=== PATIENT | male | born 1955 | race Caucasian/White ===

== ENCOUNTER 2016-02-21 09:30 | Inpatient (IN) | payer OTHER ==
[~2016-02-21] VITALS: Ht 182.9 cm; Wt 86.3 kg
[~2016-02-21 09:30] MED LIST: ESCI10TA17 PO; FRS/40 PO; HYDR4TAB78 PO; INSDGI SC; LACT10SO17 PO; LEVE500T26 PO; NVLGI7030 SC; PREG75CA PO; TRIA0.1C20 TOP
[2016-02-21] MEDS ORDERED: PROMETHAZINE HCL INJ 12.5 MG in SODIUM CHLORIDE 0.9% 50ML 50 ML IV STA (10:08)
[2016-02-21] MEDS ORDERED: SODIUM CHLORIDE 0.9% 1000ML 500 ML IV STA (10:08)
[2016-02-21] MEDS ORDERED: SODIUM CHLORIDE 0.9% 1000ML 1,000 ML IV STA (10:08)
[2016-02-21] MEDS ORDERED: HYDROmorphone INJ 2 MG/ML SYR/VIAL IV PRN (10:15)
[2016-02-21] MEDS ORDERED: HYDROmorphone INJ 1 MG/ML SYR ONE ×2 (10:20→14:40)
[2016-02-21 10:36] LABS: MEAN CORPUSCULAR HGB CONC 32.8 g/dl (32-36)
[2016-02-21 10:44] LABS: MEAN CELL VOLUME 69.1 fL (80-100); MEAN CORPUSCULAR HEMOGLOBIN 22.7 pg (25-34); RED BLOOD COUNT 4.63 M/uL (4.7-6.1); WHITE BLOOD COUNT 6.92 K/uL (4.8-10.8)
[2016-02-21 10:45] LABS: PLATELET COUNT 63 K/uL (130-400)
[2016-02-21 10:55] LABS: BUN/CREATININE RATIO 11.5 (10-20); CALCIUM 8.8 mg/dl (8.5-10.1); CREATININE 1.3 mg/dl (0.60-1.40); POTASSIUM 3.9 mmol/L (3.5-5.1)
[2016-02-21 10:58] LABS: ALB/GLOB RATIO 0.8 (0.9-2)
--- NOTE | 2016-02-21 11:01 | DIAGNOSTIC IMAGING REPORT ---
CT SCAN OF THE ABDOMEN AND PELVIS WITHOUT IV CONTRAST CLINICAL HISTORY: Generalized abdominal pain. COMPARISON STUDY: Abdominal CT dated 12/10/2015. TECHNIQUE: CT scan of the abdomen and pelvis is performed from the lung bases to the proximal femora. Images are reviewed in the axial, sagittal, and coronal planes. IV contrast was not administered for this examination as per the referring clinician. Note that the examination was performed in significantly suboptimal fashion without oral and IV contrast. Automated dose control exposure was utilized. CT DOSE: 850.59 mGycm FINDINGS: Lung bases: The heart is top normal in size and without pericardial effusion. There is diminished attenuation of the cardiac blood pool as compared to the myocardium suggesting anemia. Emphysematous change is suspected at the lung bases. Foci of linear scarring versus atelectasis are present in the lower lobes. No airspace consolidation or pleural effusion is identified. Gynecomastia is noted. There is a moderate hiatal hernia. Paraesophageal varices are identified. Liver: The unenhanced liver is cirrhotic in morphology, atrophic, and markedly heterogeneous in attenuation. There is nodularity of the surface contour, with hypertrophy of the left lobe and widening of the fissures. There is no intrahepatic biliary ductal dilatation. There is recanalization of the periumbilical vein, as well as upper abdominal collaterals. There are perigastric varices identified. Gallbladder: There are numerous calcified gallstones. Mild gallbladder wall thickening is unchanged and likely related to cirrhosis and ascites. Spleen: The spleen is markedly enlarged and slightly heterogeneous, measuring 18.2 cm in length. Pancreas: The unenhanced pancreas is markedly atrophic and grossly unremarkable. Adrenal glands: Unremarkable. Kidneys: The unenhanced kidneys are atrophic and without hydronephrosis. There are no renal calculi identified. There is no evidence of contour deforming renal mass lesion. Abdominal vasculature: The abdominal aorta is normal in course and caliber noting mild to moderate atherosclerotic calcification. An infrarenal IVC filter is in place. Bowel: The small bowel and colon are normal in course and caliber. There is moderate colonic fecal retention. The appendix is well-visualized and normal. Peritoneum: There is a moderate to large volume of abdominopelvic ascites. No intraperitoneal free air is seen. There is an ascitic fluid containing umbilical hernia. Lymphadenopathy: None. Pelvic viscera: The bladder, prostate, and seminal vesicles are grossly normal as visualized. Skeletal structures: The skeletal structures are osteopenic. Mild lumbosacral spondylosis is observed. There are postoperative changes from L4 to S1 spinal fusion. There are bilateral pars defects at L5 with minimal anterolisthesis at L5-S1. A mild superior endplate compression deformity is noted in L1. No lytic or blastic lesions are seen. A bone graft donor site is noted in the left ilium. IMPRESSION: 1. Significantly suboptimal examination without oral and IV contrast. 2. There are no acute infectious or inflammatory findings in the abdomen or pelvis. 3. Cirrhotic liver morphology with evidence of portal hypertension including splenomegaly, a moderate to large volume of abdominopelvic ascites, esophageal varices, recanalization of the periumbilical vein, and upper abdominal collaterals/varices. 4. Cholelithiasis. 5. Hiatal hernia. 6. Suspect emphysema. 7. Additional findings as above. Electronically signed by: Leonardo De La Fuente M.D. 02/21/2016 10:59 AM Dictated Date/Time: 02/21/2016 10:51 AM
--- NOTE | 2016-02-21 11:03 | DIAGNOSTIC IMAGING REPORT ---
CHEST ONE VIEW PORTABLE CLINICAL HISTORY: Abdominal pain. COMPARISON STUDY: Chest radiograph December 17, 2015. FINDINGS: An anterior cervical spine fusion is incidentally noted. Lung volumes are diminished. There is no pneumothorax or pleural effusion. Linear left basilar opacity is suggestive of atelectasis. Lower mediastinal widening is due to varices, as shown on prior imaging studies. IMPRESSION: 1. No acute findings. 2. Diminished lung volumes with subsegmental left lower lung atelectasis. Electronically signed by: Luisito Obregon M.D. 02/21/2016 11:01 AM Dictated Date/Time: 02/21/2016 10:59 AM
[2016-02-21 11:05] LABS: BASO % 0.6 %; BASO ABS # 0.04 K/uL (0-0.2); COMPLETE YES; EOS % 3.8 %; HYPOCHROMIA PRESENT; IG% 0.1 %; LYMPH % 11.1 %; LYMPH ABS # 0.77 K/uL (1.2-3.4); MICROCYTOSIS PRESENT; MONO % 12.4 %
[2016-02-21 12:38] LABS: URINE APPEARANCE CLEAR (CLEAR); URINE BILIRUBIN NEG (NEG); URINE COLOR DK YELLOW; URINE NITRITE NEG (NEG); URINE SPECIFIC GRAVITY 1.023 (1.000-1.030); UROBILINOGEN NEG (NEG); ZZUR CULT IF INDIC CLEAN CATCH NO
[2016-02-21 12:43] LABS: MANUAL MICROSCOPIC REQUIRED? NO; REVIEW REQ? NO
--- NOTE | 2016-02-21 13:20 | EMERGENCY ROOM VISIT NOTE ---
History Report prepared by Alla: Emely Bauer Under the Supervision of: Dr. Leonardo Morales M.D. First contact with patient: 10:03 Chief Complaint: ABDOMINAL PAIN Nursing Triage Summary: pt was in same day surgery for paricentesis but c/o abd pain sent to er for eval abd cramping nausea, no emesis no diarrhea pt had fall at same day felt dizzy no injury History of Present Illness The patient is a 60 year old male who presents to the Emergency Room with complaints of intermittent cramping pains to his right abdomen since last evening. Currently, he is feeling nauseous and he rates his discomfort as a 7/10 , which was not relieved after taking Zofran PRN. Patient states that he has a history of chronic pains secondary to ascites, but he became concerned as he developed more severe cramping pains last evening, which he states felt similar to when he had bacterial peritonitis. The patient waited to come to the hospital until his appointment for paracentesis this morning, which he has about every two weeks, however, after walking into the building, his legs suddenly became weak, and he almost fell to the floor. Patient was able to catch himself before falling, however the x ray service engineer sent him to the ED for further evaluation secondary to these symptoms. The patient denies recent fevers, chills, chest pain, shortness of breath, or vomiting, and he states that he has been able to urinate and move his bowels normally without diarrhea or blood, no dark or tarry stools. He does note pain to a ventral hernia, which his x ray service engineer told him appeared to be new. He does have history of umbilical hernia, which he states is unchanged from baseline. Source of History: patient Onset: last evening Position: abdomen (right) Symptom Intensity: 7/10 Quality: cramping Timing: intermittent Associated Symptoms: + abdominal pain, + nausea, + weakness (legs), No SOB, No chest pain, No chills, No diarrhea, No fevers, No hematochezia, No melena, No urinary symptoms, No vomiting Review of Systems See HPI for pertinent positives & negatives. A total of 10 systems reviewed and were otherwise negative. 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 Surgical Problems: (1) H/O esophagogastroduodenoscopy (2) H/O knee surgery (3) S/P cervical spinal fusion (4) S/P IVC filter (5) S/P lumbar fusion (6) S/P T&A (status post tonsillectomy and adenoidectomy) Social History Problems: (1) long-term resident Family History Diabetes mellitus FH: cancer FH: heart disease Hypertension Kidney disease Social History Smoking Status: Never Smoker Alcohol Use: none Drug Use: none Marital Status: Housing Status: lives alone Occupation Status: disabled Current/Historical Medications Scheduled Escitalopram (Lexapro), 10 MG PO DAILY Furosemide (Lasix), 40 MG PO BID Insulin Glargine (Lantus), 28 UNITS SC HS Lactulose (Chronulac), 30 ML PO TID Levetiracetam (Keppra), 500 MG PO AMHS Levothyroxine Sodium (Synthroid), 75 MCG PO DAILY Magnesium Oxide (Mag-Ox), 400 MG PO BID Pantoprazole (Protonix), 40 MG PO BID Pregabalin (Lyrica), 75 MG PO TID Propranolol (Inderal), 10 MG PO BID Pyridoxine Hcl (Vitamin B-6), 25 MG PO HS Rifaximin (Xifaxan), 550 MG PO AMHS Spironolactone (Aldactone), 1 TAB PO DAILY Triamcinolone Acet 0.1% (Aristocort 0.1%), 1 APPLN TOP BID Scheduled PRN Hydromorphone Hcl (Dilaudid), 1 TAB PO BID PRN for Pain Ondasetron Odt (Zofran Odt), 4 MG SL Q6H PRN for Nausea or Vomiting Miscellaneous Medications Insulin Aspart 70/30 (Novolog Mix 70/30), 0 SC Allergies Coded Allergies: NSAIDs (Verified Allergy, Severe, DUE TO LIVER DISEAS, 02/21/16) Penicillins (Verified Allergy, Severe, JOINT SWELLING AND FEVER, 02/21/16) Levofloxacin (Verified Allergy, Mild, RASH, 02/21/16) pt developed erythema at site of IV injection with itching Vancomycin (Verified Allergy, Mild, HIVES, 02/21/16) HIVES Tramadol (Verified Allergy, Unknown, NOT TO TAKE WITH KEPPRA DUE TO SEIZURE RISK, 02/21/16) Physical Exam Vital Signs Date Time Temp Pulse Resp B/P Pulse Ox O2 Delivery O2 Flow Rate FiO2 02/21/16 16:45 78 16 125/68 95 Room Air 02/21/16 14:38 69 114/71 100 02/21/16 11:17 71 115/75 98 02/21/16 09:50 73 02/21/16 09:34 36.9 89 20 120/73 98 Room Air Physical Exam GENERAL: Patient is in no acute distress. HEENT: No acute trauma, normocephalic atraumatic, mucous membranes moist, no nasal congestion, no scleral icterus. NECK: No stridor, no adenopathy, no meningismus, trachea is midline. LUNGS: Clear to auscultation bilaterally, no wheeze, no rhonchi, breath sounds equal. HEART: 2/6 systolic murmur with a regular rate and rhythm. ABDOMEN: Distension with a ventral and umbilical hernia noted. These are both reducible. Bowel sounds are hyperactive. Abdomen is soft without peritonitis. No focal tenderness on exam. EXTREMITIES: No cyanosis or edema, full range of motion of all the joints without pain or difficulty, no signs for acute trauma. NEUROLOGIC: Oriented x 3, no acute motor or sensory deficits, no focal weakness. SKIN: No rash, mild jaundice, no diaphoresis. Medical Decision & Procedures ER Provider Diagnostic Interpretation: X-ray results as stated below per interpretation by me and the radiologist: CT results as stated below per my review and radiologist interpretation: CHEST ONE VIEW PORTABLE CLINICAL HISTORY: Abdominal pain. COMPARISON STUDY: Chest radiograph December 17, 2015. FINDINGS: An anterior cervical spine fusion is incidentally noted. Lung volumes are diminished. There is no pneumothorax or pleural effusion. Linear left basilar opacity is suggestive of atelectasis. Lower mediastinal widening is due to varices, as shown on prior imaging studies. IMPRESSION: 1. No acute findings. 2. Diminished lung volumes with subsegmental left lower lung atelectasis. Electronically signed by: Luisito Obregon M.D. 02/21/2016 11:01 AM Dictated Date/Time: 02/21/2016 10:[address] SCAN OF THE ABDOMEN AND PELVIS WITHOUT IV CONTRAST CLINICAL HISTORY: Generalized abdominal pain. COMPARISON STUDY: Abdominal CT dated 12/10/2015. TECHNIQUE: CT scan of the abdomen and pelvis is performed from the lung bases to the proximal femora. Images are reviewed in the axial, sagittal, and coronal planes. IV contrast was not administered for this examination as per the referring clinician. Note that the examination was performed in significantly suboptimal fashion without oral and IV contrast. Automated dose control exposure was utilized. CT DOSE: 850.59 mGycm FINDINGS: Lung bases: The heart is top normal in size and without pericardial effusion. There is diminished attenuation of the cardiac blood pool as compared to the myocardium suggesting anemia. Emphysematous change is suspected at the lung bases. Foci of linear scarring versus atelectasis are present in the lower lobes. No airspace consolidation or pleural effusion is identified. Gynecomastia is noted. There is a moderate hiatal hernia. Paraesophageal varices are identified. Liver: The unenhanced liver is cirrhotic in morphology, atrophic, and markedly heterogeneous in attenuation. There is nodularity of the surface contour, with hypertrophy of the left lobe and widening of the fissures. There is no intrahepatic biliary ductal dilatation. There is recanalization of the periumbilical vein, as well as upper abdominal collaterals. There are perigastric varices identified. Gallbladder: There are numerous calcified gallstones. Mild gallbladder wall thickening is unchanged and likely related to cirrhosis and ascites. Spleen: The spleen is markedly enlarged and slightly heterogeneous, measuring 18.2 cm in length. Pancreas: The unenhanced pancreas is markedly atrophic and grossly unremarkable. Adrenal glands: Unremarkable. Kidneys: The unenhanced kidneys are atrophic and without hydronephrosis. There are no renal calculi identified. There is no evidence of contour deforming renal mass lesion. Abdominal vasculature: The abdominal aorta is normal in course and caliber noting mild to moderate atherosclerotic calcification. An infrarenal IVC filter is in place. Bowel: The small bowel and colon are normal in course and caliber. There is moderate colonic fecal retention. The appendix is well-visualized and normal. Peritoneum: There is a moderate to large volume of abdominopelvic ascites. No intraperitoneal free air is seen. There is an ascitic fluid containing umbilical hernia. Lymphadenopathy: None. Pelvic viscera: The bladder, prostate, and seminal vesicles are grossly normal as visualized. Skeletal structures: The skeletal structures are osteopenic. Mild lumbosacral spondylosis is observed. There are postoperative changes from L4 to S1 spinal fusion. There are bilateral pars defects at L5 with minimal anterolisthesis at L5-S1. A mild superior endplate compression deformity is noted in L1. No lytic or blastic lesions are seen. A bone graft donor site is noted in the left ilium. IMPRESSION: 1. Significantly suboptimal examination without oral and IV contrast. 2. There are no acute infectious or inflammatory findings in the abdomen or pelvis. 3. Cirrhotic liver morphology with evidence of portal hypertension including splenomegaly, a moderate to large volume of abdominopelvic ascites, esophageal varices, recanalization of the periumbilical vein, and upper abdominal collaterals/varices. 4. Cholelithiasis. 5. Hiatal hernia. 6. Suspect emphysema. 7. Additional findings as above. Electronically signed by: Leonardo De La Fuente M.D. 02/21/2016 10:59 AM Dictated Date/Time: 02/21/2016 10:51 AM Laboratory Results Test 02/21/16 00:00 02/21/16 10:24 02/21/16 12:23 02/21/16 17:59 Peritoneal Fluid Color PALE YELLOW Peritoneal Fluid Appearance HAZY Peritoneal Fluid WBC 152 /uL (0-300) Peritoneal Fluid RBC < 3000 /uL Peritoneal Fld Mononuclear WBCs (%) 82.5 % Peritoneal Fld Polynuclear WBCs (%) 17.5 % Peritoneal Fluid Total Protein 1.4 g/dl Peritoneal Fluid Albumin 0.8 g/dl Total Bilirubin 2.0 mg/dl (0.2-1) Aspartate Amino Transf (AST/SGOT) 21 U/L (15-37) Alanine Aminotransferase (ALT/SGPT) 19 U/L (12-78) Alkaline Phosphatase 125 U/L (45-117) Total Protein 6.1 gm/dl (6.4-8.2) Albumin 2.8 gm/dl (3.4-5.0) Globulin 3.3 gm/dl (2.5-4.0) Albumin/Globulin Ratio 0.8 (0.9-2) Lipase 86 U/L (73-393) Urine Color DK YELLOW Urine Appearance CLEAR (CLEAR) Urine pH 6.0 (4.5-7.5) Urine Specific [place] 1.023 (1.000-1.030) Urine Protein NEG (NEG) Urine Glucose (UA) 3+ (NEG) Urine Ketones TRACE (NEG) Urine Occult Blood NEG (NEG) Urine Nitrite NEG (NEG) Urine Bilirubin NEG (NEG) Urine Urobilinogen NEG (NEG) Urine Leukocyte Esterase NEG (NEG) Lactic Acid Level 1.7 mmol/L (0.4-2.0) Laboratory results reviewed by me. Medications Administered Medications (Trade) Dose Ordered Sig/Ryan Route Start Time Stop Time Status Last Admin Dose Admin Sodium Chloride 500 ml @ 999 mls/hr Q31M STAT IV 02/21/16 10:08 02/21/16 10:38 DC 02/21/16 11:15 999 MLS/HR Sodium Chloride 1,000 ml @ 200 mls/hr Q5H STAT IV 02/21/16 10:08 02/21/16 15:07 DC 02/21/16 10:08 200 MLS/HR Promethazine HCl/ Sodium Chloride (Phenergan Inj/ Nss 50ml) 50.5 ml @ 204 mls/hr NOW STAT IV 02/21/16 10:08 02/21/16 10:22 DC 02/21/16 10:28 204 MLS/HR Hydromorphone HCl (Dilaudid Inj) 1 mg STK-MED ONCE .ROUTE 02/21/16 10:20 02/21/16 10:21 DC 02/21/16 10:23 1 MG Hydromorphone HCl 1 mg 1 mg STK-MED ONCE .ROUTE 02/21/16 14:40 02/21/16 14:41 DC 02/21/16 14:43 1 MG Aztreonam/Dextrose (Azactam IV/D5 100ml) 110 ml @ 100 mls/hr NOW STAT IV 02/21/16 17:40 02/21/16 18:45 DC 02/21/16 17:58 100 MLS/HR ECG Indication: weakness Rate (beats per minute): 85 Rhythm: sinus rhythm, other (Possible paced beat vs. artifact) Findings: no acute ischemic change, other (Non-specific T wave change. ) ED Course 1005: The patient was evaluated in room C3. A complete history and physical exam was performed. 1008: Promethazine HCl 12.5 mg/NSS 50.5 ml @ 204 mls/hr IV, NSS 1,000 ml @ 200 mls/hr IV and NSS 500 ml @ 999 mls/hr IV were ordered. 1015: Dilaudid 1 mg IV and Dilaudid 1 mg Route were ordered. 1111: Dr. Juan has evaluated the patient. He suggested admitting the patient to medicine secondary to concerns for bacterial peritonitis. The hospitalist will be contacted. 1130: I discussed the patient's case with Dr. Rodriguez, [facility] hospitalist. He stated that he would be in to evaluate the patient after all of the results of his radiology reports and lab tests had returned. 1745: I updated Dr. Rodriguez on the patient's status, and the results of his workup that have returned. He will be in to evaluate the patient. Medical Decision The patient is a 60 year old male who presents to the ED with complaints of intermittent cramping pains to his right abdomen since last evening. Differential diagnoses considered include spontaneous bacterial peritonitis, intestinal colic, bowel obstruction, hernia, diverticulitis, electrolyte imbalance, anemia, pneumonia, and UTI. There is no leukocytosis. The patient does have an anemia and a low platelet count, both of these are chronic. No significant electrolyte abnormality or kidney failure. Bilirubin is elevated consistent with his liver disease. There is no evidence for pancreatitis. Urinalysis does not show infection, dehydration and was suggested. Lactic acid level is elevated likely consistent with dehydration. Chest x-ray does not show pneumonia or free air. Abdominal and pelvis CT shows a lot of chronic findings, ascites was seen. No bowel obstruction or acute surgical pathology noted. The patient received IV saline, IV Phenergan and IV Dilaudid. He was given IV aztreonam as coverage for possible bacterial peritonitis. The patient did undergo a ultrasound-guided paracentesis. The fluid was sent for analysis, the culture results are pending. Given the concerns for spontaneous bacterial peritonitis, I did talk with case management and at length with the patient. I spoke with GI. Admission/ observation is warranted. The on-call hospitalist was consulted. Consults Time Called: 1111 Consulting Physician: Dr. Pritesh PARISH Returned Call: 1111 Dr. Juan has evaluated the patient. He has suggested admitting the patient due to concerns for bacterial peritonitis. The hospitalist will be contacted. Additional Consults: Time Called: 112, 1740 Consulted Physician: Dr. Rodriguez - [facility] Returned Call: 1130, 1745 Additional Comments: 1130: Discussed the patient's case. He stated that he will be in to evaluate the patient once all of the results of his lab tests and imaging have returned. 1744: I updated Dr. Rodriguez on the patient's stauts, and the results of his workup that have returned. He will be in to evaluate the patient. Impression Primary Impression: Right sided abdominal pain Additional Impression: Ascites Scribe Attestation The scribe's documentation has been prepared under my direction and personally reviewed by me in its entirety. I confirm that the note above accurately reflects all work, treatment, procedures, and medical decision making performed by me. Departure Information Dispostion Being Evaluated By Hospitalist Referrals Giulia Liu M.D. (PCP) Problem Qualifiers
--- NOTE | 2016-02-21 14:58 | DIAGNOSTIC IMAGING REPORT ---
DIAGNOSTIC PARACENTESIS UNDER ULTRASOUND GUIDANCE CLINICAL HISTORY: Cirrhosis and ascites. Abdominal pain. Clinical concern for bacterial peritonitis. COMPARISON STUDY: Abdominal CT dated 02/21/2016. PROCEDURE: The risks, benefits, and alternatives to the procedure were discussed with the patient who voiced understanding. Written informed consent was obtained. Following real-time ultrasound localization of a suitable pocket of fluid in the left lower quadrant, the abdomen was prepped and draped in the usual sterile fashion. The skin and soft tissues were anesthetized with 1% lidocaine. A 20-gauge needle was then inserted and approximately 120 cc of straw-colored ascitic fluid was removed by manual suction. The procedure was well tolerated and without immediate complication. The patient left the department in satisfactory condition. IMPRESSION: Successful ultrasound-guided diagnostic paracentesis with removal of approximately 120 cc of ascitic fluid which was sent for laboratory analysis. Electronically signed by: Leonardo De La Fuente M.D. 02/21/2016 2:56 PM Dictated Date/Time: 02/21/2016 2:51 PM
[2016-02-21 17:29] LABS: PERIT FL WBC 152 /uL (0-300); PERITONEAL FLUID RBC < 3000 /uL
[2016-02-21] MEDS ORDERED: AZTREONAM IV 2,000 MG in DEXTROSE 5% 100ML 100 ML IV STA (17:40)
--- NOTE | 2016-02-21 17:47 | Medical Consult ---
Consultation Date of Consultation: Feb 21, 2016. Attending Physician: Reason for Consultation: per request of ED Physician History of Present Illness 60 year old male who is very well known to our service has a known past medical history of Diabetes, End Stage Liver disease, Dyslipidemia, Portal Hypertension , History PE, S/P IVC filter placement, Anxiety/Depression presents to the ER with chief complaint of intermittent cramping pains to his right abdomen since last evening. Currently, he is feeling nauseous and he rates his discomfort as a 7/10 on a pain scale of 0-10, which was not relieved after taking Zofran PRN. Patient states that he has a history of chronic pains secondary to ascites and takes Dilaudid at home, but he became concerned as he developed more severe cramping pains last evening, which he states felt similar to when he had bacterial peritonitis. The patient waited to come to the hospital until his appointment for paracentesis this morning, which he has about every two weeks, however, after walking into the building, his legs suddenly became weak, and he almost fell to the floor. Patient was able to catch himself before falling, however the band top maker sent him to the ED for further evaluation secondary to these symptoms. The patient denies recent fevers, chills, chest pain, shortness of breath, or vomiting, and he states that he has been able to urinate and move his bowels normally without diarrhea or blood, no dark or tarry stools. He does note pain to a ventral hernia, which his band top maker told him appeared to be new. He does have history of umbilical hernia, which he states is unchanged from baseline. Past Medical/Surgical History Medical Problems: (1) Acute hyperglycemia Status: Acute (2) Ambulatory dysfunction Status: Acute (3) Ambulatory dysfunction Status: Acute (4) Anemia Status: Acute (5) Anemia Status: Acute (6) Anemia Status: Acute (7) Ascites Status: Acute (8) Ascites Status: Acute (9) Ascites Status: Acute (10) Ascites Status: Acute (11) Ascites Status: Acute (12) Chest pain Status: Acute (13) Chronic low back pain Status: Acute (14) Cirrhosis Status: Acute (15) Cirrhosis of liver Status: Acute (16) Contusion of left foot Status: Acute (17) Dyspnea Status: Acute (18) HHNC (hyperglycemic hyperosmolar nonketotic coma) Status: Acute (19) Hyperglycemia Status: Acute (20) Hypoglycemia Status: Acute (21) Hypoglycemia Status: Acute (22) Muscle weakness Status: Acute (23) Nausea, vomiting, and diarrhea Status: Acute (24) Right sided abdominal pain Status: Acute (25) Thrombocytopenia Status: Acute Family History Diabetes mellitus FH: cancer FH: heart disease Hypertension Kidney disease Social History Smoking Status: Never Smoker Drug Use: none Marital Status: Housing Status: lives alone Occupation Status: disabled Allergies Coded Allergies: NSAIDs (Verified Allergy, Severe, DUE TO LIVER DISEAS, 02/21/16) Penicillins (Verified Allergy, Severe, JOINT SWELLING AND FEVER, 02/21/16) Levofloxacin (Verified Allergy, Mild, RASH, 02/21/16) pt developed erythema at site of IV injection with itching Vancomycin (Verified Allergy, Mild, HIVES, 02/21/16) HIVES Tramadol (Verified Allergy, Unknown, NOT TO TAKE WITH KEPPRA DUE TO SEIZURE RISK, 02/21/16) Current Inpatient Medications Current Inpatient Medications Medications (Trade) Dose Ordered Sig/Ryan Route Start Time Stop Time Status Last Admin Dose Admin Hydromorphone HCl 1 mg 1 mg Q30M PRN IV 02/21/16 10:15 03/06/16 10:14 Aztreonam/Dextrose (Azactam IV/D5 100ml) 110 ml @ 100 mls/hr NOW STAT IV 02/21/16 17:40 02/21/16 18:45 Review of Systems See HPI for pertinent positives & negatives. A total of 10 systems reviewed and were otherwise negative. Physical Exam Date Time Temp Pulse Resp B/P Pulse Ox O2 Delivery O2 Flow Rate FiO2 02/21/16 16:45 78 16 125/68 95 Room Air 02/21/16 14:38 69 114/71 100 02/21/16 11:17 71 115/75 98 02/21/16 09:50 73 02/21/16 09:34 36.9 89 20 120/73 98 Room Air General Appearance: WD/WN, no apparent distress Head: normocephalic, atraumatic Eyes: normal inspection, PERRL, EOMI ENT: normal ENT inspection, hearing grossly normal, TMs normal, pharynx normal Neck: supple, no adenopathy, thyroid normal, no JVD, trachea midline Respiratory/Chest: chest non-tender, lungs clear, no respiratory distress, no accessory muscle use Cardiovascular: regular rate, rhythm, no edema, no gallop, normal peripheral pulses Abdomen/GI: normal bowel sounds, non tender, soft, + distended (Due to ascites) Extremities/Musculoskelatal: normal inspection, no calf tenderness, normal capillary refill Neurologic/Psych: normal mood/affect, normal reflexes, oriented x 3 Skin: normal color, warm/dry, no rash Lymphatic: no adenopathy Laboratory Results Last 24 Hours Test 02/21/16 00:00 02/21/16 10:24 02/21/16 12:23 02/21/16 17:41 Peritoneal Fluid Color PALE YELLOW Peritoneal Fluid Appearance HAZY Peritoneal Fluid WBC 152 /uL Peritoneal Fluid RBC < 3000 /uL Peritoneal Fld Mononuclear WBCs (%) 82.5 % Peritoneal Fld Polynuclear WBCs (%) 17.5 % Peritoneal Fluid Total Protein 1.4 g/dl Peritoneal Fluid Albumin 0.8 g/dl White Blood Count 6.92 K/uL Red Blood Count 4.63 M/uL Hemoglobin 10.5 g/dL Hematocrit 32.0 % Mean Corpuscular Volume 69.1 fL Mean Corpuscular Hemoglobin 22.7 pg Mean Corpuscular Hemoglobin Concent 32.8 g/dl Platelet Count 63 K/uL Neutrophils (%) (Auto) 72.0 % Lymphocytes (%) (Auto) 11.1 % Monocytes (%) (Auto) 12.4 % Eosinophils (%) (Auto) 3.8 % Basophils (%) (Auto) 0.6 % Neutrophils # (Auto) 4.98 K/uL Lymphocytes # (Auto) 0.77 K/uL Monocytes # (Auto) 0.86 K/uL Eosinophils # (Auto) 0.26 K/uL Basophils # (Auto) 0.04 K/uL RDW Standard Deviation 50.0 fL RDW Coefficient of Variation 19.9 % Immature Granulocyte % (Auto) 0.1 % Immature Granulocyte # (Auto) 0.01 K/uL Hypochromasia PRESENT Microcytosis PRESENT Sodium Level 135 mmol/L Potassium Level 3.9 mmol/L Chloride Level 97 mmol/L Carbon Dioxide Level 31 mmol/L Anion Gap 7.0 mmol/L Blood Urea Nitrogen 15 mg/dl Creatinine 1.30 mg/dl Est Creatinine Clear Calc Drug Dose 65.5 ml/min Estimated GFR () 68.3 Estimated GFR (Non- 58.9 BUN/Creatinine Ratio 11.5 Random Glucose 137 mg/dl Lactic Acid Level 2.9 mmol/L Calcium Level 8.8 mg/dl Total Bilirubin 2.0 mg/dl Aspartate Amino Transf (AST/SGOT) 21 U/L Alanine Aminotransferase (ALT/SGPT) 19 U/L Alkaline Phosphatase 125 U/L Total Protein 6.1 gm/dl Albumin 2.8 gm/dl Globulin 3.3 gm/dl Albumin/Globulin Ratio 0.8 Lipase 86 U/L Urine Color DK YELLOW Urine Appearance CLEAR Urine pH 6.0 Urine Specific [place] 1.023 Urine Protein NEG Urine Glucose (UA) 3+ Urine Ketones TRACE Urine Occult Blood NEG Urine Nitrite NEG Urine Bilirubin NEG Urine Urobilinogen NEG Urine Leukocyte Esterase NEG
--- NOTE | 2016-02-21 18:11 | History and Physical ---
History & Physical Date & Time of Service: Feb 21, 2016 at 18:10 Chief Complaint: Primary Care Physician: Giulia Liu M.D. History of Present Illness Source: patient, hospital records 60 year old male who is very well known to our service has a known past medical history of Diabetes, End Stage Liver disease, Dyslipidemia, Portal Hypertension , History PE, S/P IVC filter placement, Anxiety/Depression presents to the ER with chief complaint of intermittent cramping pains to his right abdomen since last evening. Currently, he is feeling nauseous and he rates his discomfort as a 7/10 on a pain scale of 0-10, which was not relieved after taking Zofran PRN. Patient states that he has a history of chronic pains secondary to ascites and takes Dilaudid at home, but he became concerned as he developed more severe cramping pains last evening, which he states felt similar to when he had bacterial peritonitis. The patient waited to come to the hospital until his appointment for paracentesis this morning, which he has about every two weeks, however, after walking into the building, his legs suddenly became weak, and he almost fell to the floor. Patient was able to catch himself before falling, however the health safety instructor sent him to the ED for further evaluation secondary to these symptoms. The patient denies recent fevers, chills, chest pain, shortness of breath, or vomiting, and he states that he has been able to urinate and move his bowels normally without diarrhea or blood, no dark or tarry stools. He does note pain to a ventral hernia, which his health safety instructor told him appeared to be new. He does have history of umbilical hernia, which he states is unchanged from baseline. 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 Surgical Problems: (1) H/O esophagogastroduodenoscopy Status: Chronic (2) H/O knee surgery Status: Chronic (3) S/P cervical spinal fusion Status: Resolved (4) S/P IVC filter Status: Chronic (5) S/P lumbar fusion Status: Resolved (6) S/P T&A (status post tonsillectomy and adenoidectomy) Status: Chronic Social History Problems: (1) shelter resident Status: Chronic Family History Diabetes mellitus FH: cancer FH: heart disease Hypertension Kidney disease Social History Smoking Status: Never Smoker Drug Use: none Marital Status: Housing status: lives alone Occupational Status: disabled Immunizations History of Influenza Vaccine: Yes Influenza Vaccine Date: Nov 26, 2012 History of Tetanus Vaccine?: Yes Tetanus Immunization Date: Oct 16, 2005 History of Pneumococcal: Yes Pneumococcal Date: Dec 27, 2010 History of Hepatitis B Vaccine: Yes Allergies Coded Allergies: NSAIDs (Verified Allergy, Severe, DUE TO LIVER DISEAS, 02/21/16) Penicillins (Verified Allergy, Severe, JOINT SWELLING AND FEVER, 02/21/16) Levofloxacin (Verified Allergy, Mild, RASH, 02/21/16) pt developed erythema at site of IV injection with itching Vancomycin (Verified Allergy, Mild, HIVES, 02/21/16) HIVES Tramadol (Verified Allergy, Unknown, NOT TO TAKE WITH KEPPRA DUE TO SEIZURE RISK, 02/21/16) Home Medications Scheduled Escitalopram (Lexapro), 10 MG PO DAILY Furosemide (Lasix), 40 MG PO BID Insulin Glargine (Lantus), 28 UNITS SC HS Lactulose (Chronulac), 30 ML PO TID Levetiracetam (Keppra), 500 MG PO AMHS Levothyroxine Sodium (Synthroid), 75 MCG PO DAILY Magnesium Oxide (Mag-Ox), 400 MG PO BID Pantoprazole (Protonix), 40 MG PO BID Pregabalin (Lyrica), 75 MG PO TID Propranolol (Inderal), 10 MG PO BID Pyridoxine Hcl (Vitamin B-6), 25 MG PO HS Rifaximin (Xifaxan), 550 MG PO AMHS Spironolactone (Aldactone), 1 TAB PO DAILY Triamcinolone Acet 0.1% (Aristocort 0.1%), 1 APPLN TOP BID Scheduled PRN Hydromorphone Hcl (Dilaudid), 1 TAB PO BID PRN for Pain Ondasetron Odt (Zofran Odt), 4 MG SL Q6H PRN for Nausea or Vomiting Miscellaneous Medications Insulin Aspart 70/30 (Novolog Mix 70/30), 0 SC Review of Systems See HPI for pertinent positives & negatives. A total of 10 systems reviewed and were otherwise negative. Physical Exam Vital Signs General Appearance: WD/WN, no apparent distress Head: normocephalic, atraumatic Eyes: normal inspection, PERRL, EOMI ENT: normal ENT inspection, hearing grossly normal, TMs normal, pharynx normal Neck: supple, no adenopathy, thyroid normal, no JVD, trachea midline Respiratory/Chest: chest non-tender, lungs clear, no respiratory distress, no accessory muscle use Cardiovascular: regular rate, rhythm, no edema, no gallop, normal peripheral pulses Abdomen/GI: normal bowel sounds, Pain on deep palpation, soft, + distended ( Due to ascites) Extremities/Musculoskelatal: normal inspection, no calf tenderness, normal capillary refill Neurologic/Psych: normal mood/affect, normal reflexes, oriented x 3 Skin: normal color, warm/dry, no rash Lymphatic: no adenopathy Date Time Temp Pulse Resp B/P Pulse Ox O2 Delivery O2 Flow Rate FiO2 02/21/16 16:45 78 16 125/68 95 Room Air 02/21/16 14:38 69 114/71 100 02/21/16 11:17 71 115/75 98 02/21/16 09:50 73 02/21/16 09:34 36.9 89 20 120/73 98 Room Air Diagnostics Laboratory Results Results Past 24 Hours Test 02/21/16 00:00 02/21/16 10:24 02/21/16 12:23 02/21/16 17:59 Range/Units Peritoneal Fluid Color PALE YELLOW Peritoneal Fluid Appearance HAZY Peritoneal Fluid WBC 152 0-300 /uL Peritoneal Fluid RBC < 3000 /uL Peritoneal Fld Mononuclear WBCs (%) 82.5 % Peritoneal Fld Polynuclear WBCs (%) 17.5 % Peritoneal Fluid Total Protein 1.4 g/dl Peritoneal Fluid Albumin 0.8 g/dl White Blood Count 6.92 4.8-10.8 K/uL Red Blood Count 4.63 4.7-6.1 M/uL Hemoglobin 10.5 14.0-18.0 g/dL Hematocrit 32.0 42-52 % Mean Corpuscular Volume 69.1 80-100 fL Mean Corpuscular Hemoglobin 22.7 25-34 pg Mean Corpuscular Hemoglobin Concent 32.8 32-36 g/dl Platelet Count 63 130-400 K/uL Neutrophils (%) (Auto) 72.0 % Lymphocytes (%) (Auto) 11.1 % Monocytes (%) (Auto) 12.4 % Eosinophils (%) (Auto) 3.8 % Basophils (%) (Auto) 0.6 % Neutrophils # (Auto) 4.98 1.4-6.5 K/uL Lymphocytes # (Auto) 0.77 1.2-3.4 K/uL Monocytes # (Auto) 0.86 0.11-0.59 K/uL Eosinophils # (Auto) 0.26 0-0.5 K/uL Basophils # (Auto) 0.04 0-0.2 K/uL RDW Standard Deviation 50.0 36.4-46.3 fL RDW Coefficient of Variation 19.9 11.5-14.5 % Immature Granulocyte % (Auto) 0.1 % Immature Granulocyte # (Auto) 0.01 0.00-0.02 K/uL Hypochromasia PRESENT Microcytosis PRESENT Sodium Level 135 136-145 mmol/L Potassium Level 3.9 3.5-5.1 mmol/L Chloride Level 97 98-107 mmol/L Carbon Dioxide Level 31 21-32 mmol/L Anion Gap 7.0 3-11 mmol/L Blood Urea Nitrogen 15 7-18 mg/dl Creatinine 1.30 0.60-1.40 mg/dl Est Creatinine Clear Calc Drug Dose 65.5 ml/min Estimated GFR () 68.3 Estimated GFR (Non- 58.9 BUN/Creatinine Ratio 11.5 10-20 Random Glucose 137 70-99 mg/dl Lactic Acid Level 2.9 0.4-2.0 mmol/L Calcium Level 8.8 8.5-10.1 mg/dl Total Bilirubin 2.0 0.2-1 mg/dl Aspartate Amino Transf (AST/SGOT) 21 15-37 U/L Alanine Aminotransferase (ALT/SGPT) 19 12-78 U/L Alkaline Phosphatase 125 45-117 U/L Total Protein 6.1 6.4-8.2 gm/dl Albumin 2.8 3.4-5.0 gm/dl Globulin 3.3 2.5-4.0 gm/dl Albumin/Globulin Ratio 0.8 0.9-2 Lipase 86 73-393 U/L Urine Color DK YELLOW Urine Appearance CLEAR CLEAR Urine pH 6.0 4.5-7.5 Urine Specific [place] 1.023 1.000-1.030 Urine Protein NEG NEG Urine Glucose (UA) 3+ NEG Urine Ketones TRACE NEG Urine Occult Blood NEG NEG Urine Nitrite NEG NEG Urine Bilirubin NEG NEG Urine Urobilinogen NEG NEG Urine Leukocyte Esterase NEG NEG Microbiology Results 02/21/16 Acid Fast Stain, Received Pending 02/21/16 Mycobacterial Culture, Received Pending 02/21/16 Gram Stain, Received Pending 02/21/16 Bacterial Culture, Received Pending Diagnostic Radiology CHEST ONE VIEW PORTABLE CLINICAL HISTORY: Abdominal pain. COMPARISON STUDY: Chest radiograph December 17, 2015. FINDINGS: An anterior cervical spine fusion is incidentally noted. Lung volumes are diminished. There is no pneumothorax or pleural effusion. Linear left basilar opacity is suggestive of atelectasis. Lower mediastinal widening is due to varices, as shown on prior imaging studies. IMPRESSION: 1. No acute findings. 2. Diminished lung volumes with subsegmental left lower lung atelectasis. CT SCAN OF THE ABDOMEN AND PELVIS WITHOUT IV CONTRAST CLINICAL HISTORY: Generalized abdominal pain. COMPARISON STUDY: Abdominal CT dated 12/10/2015. FINDINGS: Lung bases: The heart is top normal in size and without pericardial effusion. There is diminished attenuation of the cardiac blood pool as compared to the myocardium suggesting anemia. Emphysematous change is suspected at the lung bases. Foci of linear scarring versus atelectasis are present in the lower lobes. No airspace consolidation or pleural effusion is identified. Gynecomastia is noted. There is a moderate hiatal hernia. Paraesophageal varices are identified. Liver: The unenhanced liver is cirrhotic in morphology, atrophic, and markedly heterogeneous in attenuation. There is nodularity of the surface contour, with hypertrophy of the left lobe and widening of the fissures. There is no intrahepatic biliary ductal dilatation. There is recanalization of the periumbilical vein, as well as upper abdominal collaterals. There are perigastric varices identified. Gallbladder: There are numerous calcified gallstones. Mild gallbladder wall thickening is unchanged and likely related to cirrhosis and ascites. Spleen: The spleen is markedly enlarged and slightly heterogeneous, measuring 18.2 cm in length. Pancreas: The unenhanced pancreas is markedly atrophic and grossly unremarkable. Adrenal glands: Unremarkable. Kidneys: The unenhanced kidneys are atrophic and without hydronephrosis. There are no renal calculi identified. There is no evidence of contour deforming renal mass lesion. Abdominal vasculature: The abdominal aorta is normal in course and caliber noting mild to moderate atherosclerotic calcification. An infrarenal IVC filter is in place. Bowel: The small bowel and colon are normal in course and caliber. There is moderate colonic fecal retention. The appendix is well-visualized and normal. Peritoneum: There is a moderate to large volume of abdominopelvic ascites. No intraperitoneal free air is seen. There is an ascitic fluid containing umbilical hernia. Lymphadenopathy: None. Pelvic viscera: The bladder, prostate, and seminal vesicles are grossly normal as visualized. Skeletal structures: The skeletal structures are osteopenic. Mild lumbosacral spondylosis is observed. There are postoperative changes from L4 to S1 spinal fusion. There are bilateral pars defects at L5 with minimal anterolisthesis at L5-S1. A mild superior endplate compression deformity is noted in L1. No lytic or blastic lesions are seen. A bone graft donor site is noted in the left ilium. IMPRESSION: 1. Significantly suboptimal examination without oral and IV contrast. 2. There are no acute infectious or inflammatory findings in the abdomen or pelvis. 3. Cirrhotic liver morphology with evidence of portal hypertension including splenomegaly, a moderate to large volume of abdominopelvic ascites, esophageal varices, recanalization of the periumbilical vein, and upper abdominal collaterals/varices. 4. Cholelithiasis. 5. Hiatal hernia. 6. Suspect emphysema. 7. Additional findings as above. Impression Assessment and Plan Nausea/Vomiting with Abdominal Pain: Afebrile and Ascites fluid shoes no signs of SBP. Being admitted to Medical floor under Observation. -Monitor vitals -Needs to have Therapeutic paracentesis tomorrow Am -Will need Pre & post Albumin. -No antibiotics for now. History BETANCOURT: Recurrent ascites and needs frequent paracentesis. -Contique Lasix, Aldactone, Rifaximin & Lactulose. 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 Stable. History of Chronic Anemia: Stable.Due to above. History of Thrombocytopenia: Hold Insulin Aspart and Lantus until PO intake improves -ISS for now -Pharmacy consult for glycemic management. History of Seizure Disorder: Stable. Continue Keppra. History of PE: S/P IVC filter placement -Not a candidate for chronic anticoagulation Code Status: FULL CODE DVT Prophylaxis: SCDs. Disposition: Discharge after paracentesis tomorrow. Level of Care Med/Surg Resuscitation Status FULL RESUSCITATION VTE Prophylaxis Given or contraindicated: SCD's
[2016-02-21] MEDS ORDERED: ONDANSETRON INJ 2 MG/ML 2 ML VIAL IV PRN (18:30)
[2016-02-21] MEDS ORDERED: POLYETHYLENE (MIRALAX) 17 GM PACK PO PRN (18:30)
[2016-02-21] MEDS ORDERED: HYDROmorphone HCL 2 MG TAB PO PRN (18:30)
[2016-02-21] MEDS ORDERED: ALUMINUM/MAGNESIUM/SIMETH (MAALOX MAX) 30 ML UDC PO PRN (18:30)
[2016-02-21] MEDS ORDERED: DEXTROSE 50% 50 ML SYR IV PRN (18:45)
[2016-02-21] MEDS ORDERED: GLUCOSE 10 TABS/TUBE PO PRN (18:45)
[2016-02-21] MEDS ORDERED: GLUCOSE 40% GEL 15 GM TUBE PO PRN (18:45)
[2016-02-21] MEDS ORDERED: GLUCAGON FOR INJ 1 MG VIAL SQ PRN (18:45)
[2016-02-21] MEDS ORDERED: PHARMACY GLYCEMIC MGMT CONSULT PRN (18:55)
[2016-02-21] MEDS ORDERED: HYDROmorphone HCL 2 MG TAB ONE (19:24)
[2016-02-21] MEDS: HYDROmorphone HCL 2 MG TAB PO PRN (19:27)
[2016-02-21] MEDS: TRIAMCINOLONE ACET 0.1% CR 15 GM TUBE EXT SCH (20:00)
[2016-02-21] MEDS: PREGABALIN 75 MG CAP PO SCH (20:00)
[2016-02-21] MEDS ORDERED: IV FLUIDS COMPLETED PRN (20:45)
[2016-02-21] MEDS: INSULIN ASPART 100 UNITS/ML 3 ML PEN SC SCH (21:00)
[2016-02-21] MEDS: LACTULOSE SYRUP 20 GM/30 ML UDC PO SCH (21:34)
[2016-02-21] MEDS: PROPRANOLOL HCL 10 MG TAB PO SCH (21:35)
[2016-02-21] MEDS: LEVETIRACETAM 500 MG TAB PO SCH (21:35)
[2016-02-21] MEDS: MAGNESIUM OXIDE 400 MG TAB PO SCH (21:36)
[2016-02-21] MEDS: PANTOprazole SOD 40 MG TAB PO SCH (21:37)
[2016-02-21] MEDS: RIFAXIMIN TAB 550 MG TAB PO SCH (21:38)
[2016-02-21] MEDS: FUROSEMIDE 40 MG TAB PO SCH (21:39)
[2016-02-21] MEDS: PYRIDOXINE HCL 50 MG TAB PO SCH (21:42)
[2016-02-21] MEDS: INSULIN GLARGINE SOLOSTAR 100 UNITS/ML 3 ML PEN SC SCH (21:44)
[2016-02-21 23:49] VITALS: BP 93/54; PULSE 71; TEMP 36.7; O2SAT 96
[2016-02-22] VITALS (7 sets, daily range): BP systolic 91–148; BP diastolic 56–76; PULSE 60–72; TEMP 36.4–36.8; O2SAT 93–99; Ht 182.9 cm; Wt 86.3 kg
[2016-02-22] MEDS: HYDROmorphone HCL 2 MG TAB PO PRN ×4 (01:34→22:03)
[2016-02-22 06:25] LABS: MEAN CORPUSCULAR HGB CONC 32.5 g/dl (32-36)
[2016-02-22 06:32] LABS: INR 1.4 (0.9-1.1)
[2016-02-22 06:36] LABS: HEMATOCRIT 31.7 % (42-52); MEAN CELL VOLUME 69.5 fL (80-100); MEAN CORPUSCULAR HEMOGLOBIN 22.6 pg (25-34); RED BLOOD COUNT 4.56 M/uL (4.7-6.1); WHITE BLOOD COUNT 4.03 K/uL (4.8-10.8)
[2016-02-22 06:49] LABS: PLATELET COUNT 54 K/uL (130-400)
[2016-02-22 06:51] LABS: BASO ABS # 0.04 K/uL (0-0.2); COMPLETE YES; HYPOCHROMIA PRESENT; IG% 0.5 %; LYMPH % 18.6 %; LYMPH ABS # 0.75 K/uL (1.2-3.4); MICROCYTOSIS PRESENT; MONO % 13.2 %; NEUT % 61.7 %; PLT ESTIMATE DECREASED
[2016-02-22 06:55] LABS: CALCIUM 8.5 mg/dl (8.5-10.1); CREATININE 1.2 mg/dl (0.60-1.40); POTASSIUM 3.9 mmol/L (3.5-5.1)
[2016-02-22] MEDS: LEVOTHYROXINE 75 MCG TAB PO SCH (07:38)
[2016-02-22] MEDS: TRIAMCINOLONE ACET 0.1% CR 15 GM TUBE EXT SCH ×2 (08:00→20:00)
[2016-02-22] MEDS ORDERED: ALBUMIN HUMAN 5% 12.5 GM/250 ML VIAL IV SCH (08:00)
[2016-02-22] MEDS ORDERED: INSULIN GLARGINE SOLOSTAR 100 UNITS/ML 3 ML PEN SC ONE (08:00)
[2016-02-22] MEDS: LACTULOSE SYRUP 20 GM/30 ML UDC PO SCH ×4 (08:03→22:06)
[2016-02-22] MEDS: SPIRONOLACTONE 100 MG TAB PO SCH (08:03)
[2016-02-22] MEDS: FUROSEMIDE 40 MG TAB PO SCH ×2 (08:04→17:16)
[2016-02-22] MEDS: RIFAXIMIN TAB 550 MG TAB PO SCH ×2 (08:04→20:00)
[2016-02-22] MEDS: PROPRANOLOL HCL 10 MG TAB PO SCH ×2 (08:04→22:07)
[2016-02-22] MEDS: PANTOprazole SOD 40 MG TAB PO SCH ×2 (08:04→20:00)
[2016-02-22] MEDS: LEVETIRACETAM 500 MG TAB PO SCH ×2 (08:04→22:06)
[2016-02-22] MEDS: ESCITALOPRAM OXALATE 10 MG TAB PO SCH (08:04)
[2016-02-22] MEDS: MAGNESIUM OXIDE 400 MG TAB PO SCH ×2 (08:05→22:06)
[2016-02-22] MEDS: PREGABALIN 75 MG CAP PO SCH ×3 (08:05→22:02)
[2016-02-22] MEDS: MAGNESIUM HYDROXIDE SUSP 30 ML UDC PO PRN (08:10)
[2016-02-22] MEDS: INSULIN ASPART 100 UNITS/ML 3 ML PEN SC SCH ×4 (08:15→22:17)
--- NOTE | 2016-02-22 10:28 | DIAGNOSTIC IMAGING REPORT ---
ULTRASOUND-GUIDED THERAPEUTIC PARACENTESIS: HISTORY: Ascites. Procedure: The procedure and its risks, benefits and alternatives were discussed with the patient and written informed consent was obtained. Preliminary ultrasound of the abdomen was performed to determine a safe needle entry site. The left lower quadrant was prepped and draped in the usual sterile fashion. 1% Lidocaine was used for local anesthesia. A paracentesis needle-sheath was inserted into the peritoneal space using ultrasound guidance. The needle was removed and the sheath was connected to tubing and a vacuum suction device. A total of 5.7 liters of yellow ascites was aspirated. The sheath was removed and a sterile dressing applied. The patient tolerated the procedure well and there were no immediate complications. IMPRESSION: Ultrasound-guided therapeutic paracentesis with aspiration of 5.7 liters of ascites. Electronically signed by: Tj Weston M.D. 02/22/2016 10:26 AM Dictated Date/Time: 02/22/2016 10:25 AM
--- NOTE | 2016-02-22 10:37 | Gastrointestinal Consultation ---
Gastrointestinal Consultation Date of Consultation: Feb 22, 2016 Consulting Physician: Dr. Hewitt Reason for Consultation: ascites, abd pain History of Present Illness Patient is a 60 year old male with a medical history significant for diabetes, end stage liver disease secondary to BETANCOURT, Dyslipidemia, Portal Hypertension, History PE, S/P IVC filter placement, Anxiety/Depression . He presented yesterday to same day surgery for a route scheduled outpatient paracentesis. On presentation, he was weak, dizzy with unsteady gait. GI was called for evaluation in the same day surgery unit and it was suggested that the patient was to get sent for evaluation in the ED. Diagnostic paracentesis 02/21/16: Successful ultrasound-guided diagnostic paracentesis with removal of approximately 120 cc of ascitic fluid which was sent for laboratory analysis. CT abd 02/21/16: Significantly suboptimal examination without oral and IV contrast. There are no acute infectious or inflammatory findings in the abdomen or pelvis. Cirrhotic liver morphology with evidence of portal hypertension including splenomegaly, a moderate to large volume of abdominopelvic ascites, esophageal varices, recanalization of the periumbilical vein, and upper abdominal\collaterals/varices. Cholelithiasis. Hiatal hernia. Suspect emphysema. Additional findings as above. Past Medical/Surgical History Medical Problems: (1) Acute hyperglycemia Status: Acute (2) Ambulatory dysfunction Status: Acute (3) Ambulatory dysfunction Status: Acute (4) Anemia Status: Acute (5) Anemia Status: Acute (6) Anemia Status: Acute (7) Ascites Status: Acute (8) Ascites Status: Acute (9) Ascites Status: Acute (10) Ascites Status: Acute (11) Ascites Status: Acute (12) Chest pain Status: Acute (13) Chronic low back pain Status: Acute (14) Cirrhosis Status: Acute (15) Cirrhosis of liver Status: Acute (16) Contusion of left foot Status: Acute (17) Dyspnea Status: Acute (18) HHNC (hyperglycemic hyperosmolar nonketotic coma) Status: Acute (19) Hyperglycemia Status: Acute (20) Hypoglycemia Status: Acute (21) Hypoglycemia Status: Acute (22) Muscle weakness Status: Acute (23) Nausea, vomiting, and diarrhea Status: Acute (24) Thrombocytopenia Status: Acute Family History Diabetes mellitus FH: cancer FH: heart disease Hypertension Kidney disease Social History Smoking Status: Never Smoker Alcohol Use: none Drug Use: none Marital Status: Housing Status: lives alone Occupation Status: disabled Allergies Coded Allergies: NSAIDs (Verified Allergy, Severe, DUE TO LIVER DISEAS, 02/21/16) Penicillins (Verified Allergy, Severe, JOINT SWELLING AND FEVER, 02/21/16) Levofloxacin (Verified Allergy, Mild, RASH, 02/21/16) pt developed erythema at site of IV injection with itching Vancomycin (Verified Allergy, Mild, HIVES, 02/21/16) HIVES Tramadol (Verified Allergy, Unknown, NOT TO TAKE WITH KEPPRA DUE TO SEIZURE RISK, 02/21/16) Current Medications Home Meds and Scripts Medications Dose Route/Sig Max Daily Dose Days Date Category Dose Instructions Novolog Mix 70/30 (Insulin Aspart Prota 70%/Aspart 30%) Susp 0 SC 01/25/16 Reported Dilaudid (Hydromorphone Hcl) 4 Mg Tab 1 Tab PO BID PRN 30 12/10/15 Reported Aldactone (Spironolactone) 100 Mg Tab 1 Tab PO DAILY 30 12/10/15 Reported Chronulac (Lactulose) 10 Gm/15 Ml Syrp 30 Ml PO TID 12/10/15 Reported Lantus (Insulin Glargine) Vial 28 Units SC HS 09/20/15 Reported Inderal (Propranolol HCl) 10 Mg Tab 10 Mg PO BID 06/04/15 Reported Vitamin B-6 (Pyridoxine Hcl) 25 Mg Tab 25 Mg PO HS 06/04/15 Reported Aristocort 0.1% (Triamcinolone Acetonide) Cr 1 Appln TOP BID 06/04/15 Reported USE TO AFFECTED AREA FOR DERMATITIS Synthroid (Levothyroxine Sodium) 75 Mcg Tab 75 Mcg PO DAILY 05/07/15 Reported Lyrica (Pregabalin) 75 Mg Cap 75 Mg PO TID 05/07/15 Reported Zofran Odt (Ondansetron HCl) 4 Mg Tab 4 Mg SL Q6H PRN 05/07/15 Reported Lasix (Furosemide) 40 Mg Tab 40 Mg PO BID 12/24/14 Reported Lexapro (Escitalopram Oxalate) 10 Mg Tab 10 Mg PO DAILY 10/30/14 Reported Protonix (Pantoprazole) 40 Mg Tab 40 Mg PO BID 08/04/14 Reported Keppra (Levetiracetam) 500 Mg Tab 500 Mg PO AMHS 07/08/13 Reported ONE AT BREAKFAST AND ONE AT SUPPER. Xifaxan (Rifaximin) 550 Mg Tab 550 Mg PO AMHS 05/20/13 Reported ONE AT BREAKFAST AND ONE AT SUPPER. Mag-Ox (Magnesium Oxide) 400 Mg Tab 400 Mg PO BID 09/29/11 Reported Review of Systems Constitutional: No chills, No fever Respiratory: No cough, No shortness of breath Cardiac: + edema, No PND, No chest pain Abdomen: + constipation, + pain, No GI bleeding, No diarrhea, No nausea, No vomiting Physical Exam Date Time Temp Pulse Resp B/P Pulse Ox O2 Delivery O2 Flow Rate FiO2 02/22/16 10:00 Room Air 02/22/16 07:42 36.6 65 18 92/56 95 Room Air 02/22/16 04:37 36.8 63 20 117/66 99 Room Air 02/21/16 23:49 36.7 71 20 93/54 96 Room Air 02/21/16 19:21 78 16 118/78 99 Room Air 02/21/16 16:45 78 16 125/68 95 Room Air 02/21/16 14:38 69 114/71 100 02/21/16 11:17 71 115/75 98 General Appearance: no apparent distress Eyes: PERRL ENT: hearing grossly normal Neck: supple, trachea midline Respiratory/Chest: lungs clear, normal breath sounds, no respiratory distress, no accessory muscle use Cardiovascular: regular rate, rhythm, no edema, no gallop Abdomen: normal bowel sounds, no organomegaly, no pulsatile mass, + distended, + tenderness Neurologic/Psych: alert, normal mood/affect, oriented x 3 Skin: normal color, warm/dry, no rash Laboratory Results Last 24 Hours Test 02/21/16 12:23 02/21/16 17:59 02/21/16 20:50 02/22/16 06:00 Urine Color DK YELLOW Urine Appearance CLEAR Urine pH 6.0 Urine Specific [place] 1.023 Urine Protein NEG Urine Glucose (UA) 3+ Urine Ketones TRACE Urine Occult Blood NEG Urine Nitrite NEG Urine Bilirubin NEG Urine Urobilinogen NEG Urine Leukocyte Esterase NEG Lactic Acid Level 1.7 mmol/L Bedside Glucose 250 mg/dl White Blood Count 4.03 K/uL Red Blood Count 4.56 M/uL Hemoglobin 10.3 g/dL Hematocrit 31.7 % Mean Corpuscular Volume 69.5 fL Mean Corpuscular Hemoglobin 22.6 pg Mean Corpuscular Hemoglobin Concent 32.5 g/dl Platelet Count 54 K/uL Neutrophils (%) (Auto) 61.7 % Lymphocytes (%) (Auto) 18.6 % Monocytes (%) (Auto) 13.2 % Eosinophils (%) (Auto) 5.0 % Basophils (%) (Auto) 1.0 % Neutrophils # (Auto) 2.49 K/uL Lymphocytes # (Auto) 0.75 K/uL Monocytes # (Auto) 0.53 K/uL Eosinophils # (Auto) 0.20 K/uL Basophils # (Auto) 0.04 K/uL RDW Standard Deviation 49.8 fL RDW Coefficient of Variation 19.9 % Immature Granulocyte % (Auto) 0.5 % Immature Granulocyte # (Auto) 0.02 K/uL Platelet Estimate DECREASED Hypochromasia PRESENT Microcytosis PRESENT Prothrombin Time 15.0 SECONDS Prothromb Time International Ratio 1.4 Sodium Level 135 mmol/L Potassium Level 3.9 mmol/L Chloride Level 99 mmol/L Carbon Dioxide Level 26 mmol/L Anion Gap 10.0 mmol/L Blood Urea Nitrogen 13 mg/dl Creatinine 1.20 mg/dl Est Creatinine Clear Calc Drug Dose 71.0 ml/min Estimated GFR () 75.2 Estimated GFR (Non- 64.9 BUN/Creatinine Ratio 11.0 Random Glucose 218 mg/dl Calcium Level 8.5 mg/dl Test 02/22/16 07:15 Bedside Glucose 213 mg/dl Impression Patient is a 60 year old male with abdominal distention, intermittent abdominal cramping that is relieved spontaneously and does not radiate, intermittent dizziness and unsteady gait with ascites and constipation. A diagnostic tap was competed yesterday to rule out SBP. CT abd unremarkable, colonic fecal retention was noted. Plan Increase lactulose to QID - new constipation likely secondary to recent increase in outpatient narcotic dose diet as tolerated Peritoneal WBC 152, polynuclear WBC 17% PMN 25, no SBP suggest a therapeutic paracentesis prior to discharge since his first paracentesis was only diagnostic. We suggest taking no more than 2L off. I have personally seen and examined this patient with MAYI Mcgovern. Her note reflects my findings and exam. I agree with her impression and plan. Increase lactulose. Nehemias Hewitt M.D.
--- NOTE | 2016-02-22 13:43 | Progress Note ---
Medicine Progress Note Date & Time of Visit: Feb 22, 2016 at 12:06. Subjective Pt was seen and examined Lying in bed comfortable with no distress Pt said that he continue to have some lower abdominal tenderness. Pt said that the last time he had a bowel movement was Sunday. He denies any chest pain, palpitation, dizziness and SOB Objective Last 8 Hrs Date Time Temp Pulse Resp B/P Pulse Ox O2 Delivery O2 Flow Rate FiO2 02/22/16 11:44 Room Air 02/22/16 11:39 36.8 60 16 98/62 97 Room Air 02/22/16 10:00 Room Air 02/22/16 07:42 36.6 65 18 92/56 95 Room Air 02/22/16 04:37 36.8 63 20 117/66 99 Room Air Physical Exam: General- no acute, distress Head- atraumatic Eyes- PERRL, EOMI ENT- oropharynx clear Neck- supple, no JVD Lungs- clear to auscultation and percussion Heart- regular rhythm; no murmur Abdomen- normal bowel sounds, soft, tenderness Extremities- no calf tenderness Neuro- alert, oriented x 3; PERRL, EOMI Skin- warm & dry Laboratory Results: Last 24 Hours Test 02/21/16 12:23 02/21/16 17:59 02/21/16 20:50 02/22/16 06:00 Urine Color DK YELLOW Urine Appearance CLEAR Urine pH 6.0 Urine Specific [place] 1.023 Urine Protein NEG Urine Glucose (UA) 3+ Urine Ketones TRACE Urine Occult Blood NEG Urine Nitrite NEG Urine Bilirubin NEG Urine Urobilinogen NEG Urine Leukocyte Esterase NEG Lactic Acid Level 1.7 mmol/L Bedside Glucose 250 mg/dl White Blood Count 4.03 K/uL Red Blood Count 4.56 M/uL Hemoglobin 10.3 g/dL Hematocrit 31.7 % Mean Corpuscular Volume 69.5 fL Mean Corpuscular Hemoglobin 22.6 pg Mean Corpuscular Hemoglobin Concent 32.5 g/dl Platelet Count 54 K/uL Neutrophils (%) (Auto) 61.7 % Lymphocytes (%) (Auto) 18.6 % Monocytes (%) (Auto) 13.2 % Eosinophils (%) (Auto) 5.0 % Basophils (%) (Auto) 1.0 % Neutrophils # (Auto) 2.49 K/uL Lymphocytes # (Auto) 0.75 K/uL Monocytes # (Auto) 0.53 K/uL Eosinophils # (Auto) 0.20 K/uL Basophils # (Auto) 0.04 K/uL RDW Standard Deviation 49.8 fL RDW Coefficient of Variation 19.9 % Immature Granulocyte % (Auto) 0.5 % Immature Granulocyte # (Auto) 0.02 K/uL Platelet Estimate DECREASED Hypochromasia PRESENT Microcytosis PRESENT Prothrombin Time 15.0 SECONDS Prothromb Time International Ratio 1.4 Sodium Level 135 mmol/L Potassium Level 3.9 mmol/L Chloride Level 99 mmol/L Carbon Dioxide Level 26 mmol/L Anion Gap 10.0 mmol/L Blood Urea Nitrogen 13 mg/dl Creatinine 1.20 mg/dl Est Creatinine Clear Calc Drug Dose 71.0 ml/min Estimated GFR () 75.2 Estimated GFR (Non- 64.9 BUN/Creatinine Ratio 11.0 Random Glucose 218 mg/dl Calcium Level 8.5 mg/dl Test 02/22/16 07:15 02/22/16 11:20 Bedside Glucose 213 mg/dl 158 mg/dl Assessment & Plan Abdominal Pain associated with Nausea/Vomiting Cirrhosis of the Liver need to r/o SBP S/P therapeutic paracentesis today Diagnostic paracentesis done yesterday showed no culture growth 5.2 Liter of transudate fluid removed Afebrile, NBC Pre and post albumin was given History BETANCOURT Recurrent ascites and needs frequent paracentesis. Contique Lasix, Aldactone, Rifaximin Lactulose increase to QID as per GI Thrombocytopenia Secondary to liver disease. Platelet 54 No active bleeding Continue monitor CBC Stable. History of Chronic Anemia: Hgb 10.3 Stable. DM Hold Insulin Aspart and Lantus until PO intake improves SS for now Pharmacy consult for glycemic management. History of Seizure Disorder: Continue Keppra. Stable Constipation Secondary to narcotic Continue laxative History of PE S/P IVC filter placement Not a candidate for chronic anticoagulation due to low platelet and risk of bleeding Code Status: FULL CODE DVT Prophylaxis: SCDs. Disposition: Discharge today after PT Consultants: Gastro Procedures: Diagnostic and therapeutic Paracentesis Current Inpatient Medications: Current Inpatient Medications Medications (Trade) Dose Ordered Sig/Ryan Route Start Time Stop Time Status Last Admin Dose Admin Al Hydrox/Mg Hydrox/Simethicone (Maalox Max Susp) 15 ml Q4H PRN PO 02/21/16 18:30 03/22/16 18:29 Magnesium Hydroxide (Milk Of Magnesia Susp) 30 ml Q6H PRN PO 02/21/16 18:30 03/22/16 18:29 02/22/16 08:10 30 ML Polyethylene (Miralax Powder Packet) 17 gm DAILY PRN PO 02/21/16 18:30 03/22/16 18:29 Ondansetron HCl (Zofran Inj) 4 mg Q6H PRN IV 02/21/16 18:30 03/22/16 18:29 Miscellaneous Information (Consult Glycemic Management Pharmacy) 1 ea UD PRN N/A 02/21/16 18:55 03/22/16 18:54 Escitalopram Oxalate (Lexapro Tab) 10 mg DAILY PO 02/22/16 08:00 03/23/16 08:59 02/22/16 08:04 10 MG Furosemide (Lasix tab) 40 mg BID17 PO 02/21/16 21:00 03/22/16 20:59 02/22/16 08:04 40 MG Levetiracetam (Keppra Tab) 500 mg AMHS PO 02/21/16 20:00 03/22/16 20:59 02/22/16 08:04 500 MG Levothyroxine Sodium (Synthroid Tab) 75 mcg DAILYBB PO 02/22/16 06:30 03/23/16 06:59 02/22/16 07:38 75 MCG Magnesium Oxide (Mag-Ox Tab) 400 mg BID PO 02/21/16 20:00 03/22/16 20:59 02/22/16 08:05 400 MG Pantoprazole Sodium (Protonix Tab) 40 mg BID PO 02/21/16 20:00 03/22/16 20:59 02/22/16 08:04 40 MG Pregabalin (Lyrica Cap) 75 mg TID PO 02/21/16 20:00 03/22/16 20:59 02/22/16 08:05 75 MG Propranolol HCl (Inderal Tab) 10 mg BID PO 02/21/16 20:00 03/22/16 20:59 02/22/16 08:04 10 MG Rifaximin (Xifaxan Tab) 550 mg AMHS PO 02/21/16 20:00 03/22/16 20:59 02/22/16 08:04 550 MG Spironolactone (Aldactone Tab) 100 mg DAILY PO 02/22/16 08:00 03/23/16 08:59 02/22/16 08:03 100 MG Triamcinolone Acetonide (Kenalog 0.1% Cream) 1 appln BID EXT 02/21/16 20:00 03/22/16 20:59 Pyridoxine HCl (Vitamin B-6 Tab) 25 mg HS PO 02/21/16 21:00 03/22/16 20:59 02/21/16 21:42 25 MG Glucose (Glucose 40% Gel) 15-30 GRAMS 15 GRAMS... UD PRN PO 02/21/16 18:45 03/22/16 18:44 Glucose (Glucose Chew Tab) 4-8 Tablets 4 Tabl... UD PRN PO 02/21/16 18:45 03/22/16 18:44 Dextrose (Dextrose 50% 50ML Syringe) 25-50ML OF 50% DW IV FOR... UD PRN IV 02/21/16 18:45 03/22/16 18:44 Glucagon (Glucagon Inj) 1 mg UD PRN SQ 02/21/16 18:45 03/22/16 18:44 Hydromorphone HCl (Dilaudid Tab) 2 mg Q6 PRN PO 02/21/16 18:45 03/06/16 18:44 02/22/16 07:39 2 MG Albumin Human (Albumin 5%) 12.5 gm TODAY@0800 IV 02/22/16 08:00 02/22/16 23:59 02/22/16 08:01 12.5 GM Insulin Glargine (Lantus Solostar Pen) 28 unit HS SC 02/21/16 21:00 03/22/16 20:59 02/21/16 21:44 28 UNIT Insulin Aspart (novoLOG ASPART) SLIDING SCALE ACHS SC 02/21/16 21:00 03/22/16 20:59 02/22/16 08:15 4 UNITS Miscellaneous (Iv Fluids Completed) 1 ea PRN PRN N/A 02/21/16 20:45 02/20/17 20:44 Lactulose (Chronulac Syrup) 20 gm QID PO 02/22/16 12:00 03/23/16 11:59
--- NOTE | 2016-02-22 14:18 | Pharmacy Progress Note ---
Glycemic Control Intl Consult Date of Service Feb 22, 2016. Scope Glycemic Pharmacist consulted by Dr Emiliano Rodriguez on 02/21/16 for glycemic control and to write orders per [facility] inpatient glycemic control protocol Objective Weight (Kilograms): 86.300 Accuchecks BSG (last 24hrs): Test 02/21/16 20:50 02/22/16 06:00 02/22/16 07:15 02/22/16 11:20 Bedside Glucose 250 mg/dl (70-99) 213 mg/dl (70-99) 158 mg/dl (70-99) Random Glucose 218 mg/dl (70-99) Laboratory Data (last 24hrs) Test 02/22/16 06:00 Anion Gap 10.0 mmol/L BUN/Creatinine Ratio 11.0 Blood Urea Nitrogen 13 mg/dl Creatinine 1.20 mg/dl Potassium Level 3.9 mmol/L Sodium Level 135 mmol/L White Blood Count 4.03 K/uL Red Blood Count 4.56 M/uL Hemoglobin 10.3 g/dL Hematocrit 31.7 % Mean Corpuscular Volume 69.5 fL Mean Corpuscular Hemoglobin 22.6 pg Mean Corpuscular Hemoglobin Concent 32.5 g/dl Platelet Count 54 K/uL Neutrophils (%) (Auto) 61.7 % Lymphocytes (%) (Auto) 18.6 % Monocytes (%) (Auto) 13.2 % Eosinophils (%) (Auto) 5.0 % Basophils (%) (Auto) 1.0 % Neutrophils # (Auto) 2.49 K/uL Lymphocytes # (Auto) 0.75 K/uL Monocytes # (Auto) 0.53 K/uL Eosinophils # (Auto) 0.20 K/uL Basophils # (Auto) 0.04 K/uL Recent Pertinent Medications Outpatient Anti-diabetic Regimen: * Lantus 28 units qHS * A1c = 8.9 % 12/10/15 Risk Factors for Insulin Resistance: * Infection: Rifaximin (BETANCOURT) * IVF:Albumin IV * Recent procedure: s/p paracentesis today * Diet: DM2, [id number] Assessment & Plan ASSESSMENT: * ADA & AACE recommend a goal blood sugar range 140-180 mg/dl for the majority of critically ill & non-critically ill patients. However, more stringent targets may be selected in individual cases. * 60 yo male admitted with ascites requiring paracentesis today. Pt is known to the pharmacy glycemic service from past admissions. * Pt was started on glycemic regimen similar to past admissions with similar stressors. * FBG elevated this morning. Will order a one time 25% increase in Lantus dose today. * Tighten Novolog parameters for improved control post-prandially. PLAN FOR INPATIENT GLYCEMIC CONTROL: * One time extra dose: Lantus 7 units x 1 this morning then continue Lantus 28 units qHS * Novolog ACHS * Tighten correction factor to 15 mg/dl/unit * Tighten carb ratio to 1 unit per 5 grams CHO consumed * Continue goal range of Low 120 mg/dL - High 160 mg/dL * Please note that the plan above was derived based on current level of insulin resistance and hospital stress. These recommendations are appropriate for inpatient admission only. Plan of care upon discharge will need to be reassessed to avoid potential outpatient hypo/hyperglycemia. Thank you.
[2016-02-22] MEDS: PYRIDOXINE HCL 50 MG TAB PO SCH (21:00)
[2016-02-22] MEDS: INSULIN GLARGINE SOLOSTAR 100 UNITS/ML 3 ML PEN SC SCH (22:17)
[2016-02-23] VITALS: O2SAT 99
[2016-02-23] MEDS: LEVOTHYROXINE 75 MCG TAB PO SCH (06:43)
[2016-02-23] MEDS: HYDROmorphone HCL 2 MG TAB PO PRN ×2 (06:44→12:44)
[2016-02-23 07:46] VITALS: BP 101/63; PULSE 69; TEMP 36.7; O2SAT 98
[2016-02-23] MEDS: TRIAMCINOLONE ACET 0.1% CR 15 GM TUBE EXT SCH (08:00)
[2016-02-23] MEDS: ESCITALOPRAM OXALATE 10 MG TAB PO SCH (08:10)
[2016-02-23] MEDS: FUROSEMIDE 40 MG TAB PO SCH (08:10)
[2016-02-23] MEDS: LACTULOSE SYRUP 20 GM/30 ML UDC PO SCH ×2 (08:10→12:44)
[2016-02-23] MEDS: LEVETIRACETAM 500 MG TAB PO SCH (08:11)
[2016-02-23] MEDS: PROPRANOLOL HCL 10 MG TAB PO SCH (08:11)
[2016-02-23] MEDS: SPIRONOLACTONE 100 MG TAB PO SCH (08:11)
[2016-02-23] MEDS: PANTOprazole SOD 40 MG TAB PO SCH (08:11)
[2016-02-23] MEDS: MAGNESIUM OXIDE 400 MG TAB PO SCH (08:11)
[2016-02-23] MEDS: RIFAXIMIN TAB 550 MG TAB PO SCH (08:11)
[2016-02-23] MEDS: MAGNESIUM HYDROXIDE SUSP 30 ML UDC PO PRN (08:15)
[2016-02-23] MEDS: PREGABALIN 75 MG CAP PO SCH ×2 (08:15→12:45)
[2016-02-23 08:46] LABS: MEAN CORPUSCULAR HGB CONC 32.5 g/dl (32-36)
[2016-02-23 08:54] LABS: HEMATOCRIT 31.7 % (42-52); MEAN CELL VOLUME 70.3 fL (80-100); MEAN CORPUSCULAR HEMOGLOBIN 22.8 pg (25-34); RED BLOOD COUNT 4.51 M/uL (4.7-6.1)
[2016-02-23 09:13] LABS: BUN/CREATININE RATIO 9.5 (10-20); CALCIUM 8.1 mg/dl (8.5-10.1); CREATININE 1.1 mg/dl (0.60-1.40); PLATELET COUNT 70 K/uL (130-400); PLT ESTIMATE DECREASED
[2016-02-23] MEDS: INSULIN ASPART 100 UNITS/ML 3 ML PEN SC SCH ×2 (09:27→12:51)
--- NOTE | 2016-02-23 13:15 | Pharmacy Progress Note ---
Glycemic Control: Progress Nt Date of Service Feb 23, 2016. Scope Glycemic Pharmacist consulted by Dr Rodriguez on 02/21/16 for glycemic control and to write orders per [facility] inpatient glycemic control protocol. Objective Accuchecks BSG (last 24hrs): Test 02/22/16 16:32 02/22/16 20:10 02/23/16 08:07 02/23/16 08:35 Bedside Glucose 209 mg/dl (70-99) 206 mg/dl (70-99) 158 mg/dl (70-99) Random Glucose 150 mg/dl (70-99) Laboratory Data (last 24hrs) Test 02/23/16 08:35 Anion Gap 11.0 mmol/L BUN/Creatinine Ratio 9.5 Blood Urea Nitrogen 11 mg/dl Creatinine 1.10 mg/dl Potassium Level 4.0 mmol/L Sodium Level 137 mmol/L White Blood Count 4.90 K/uL Recent Pertinent Medications Outpatient Anti-diabetic Regimen: * Lantus 28 units SQ q PM * NovoLog 15-30 units (unsure from notes) SQ with meals * A1c = 8.9 % 12/2015 The patient is currently receiving: * Basal insulin: Lantus 25 units every 24 hours (additional 7 units given on 02/21) * Correctional Insulin: NovoLog Correction per scale AC+HS Goal Range: Low 120 mg/dL - High 160 mg/dL Correction Factor: 15 mg/dL/unit * Prandial insulin: Per carb ratio of 1 unit per 5 grams CHO consumed Risk Factors for Insulin Resistance: * Diet: T2DM/Low Na, 1500mL restriction Assessment & Plan ASSESSMENT: * ADA & AACE recommend a goal blood sugar range 140-180 mg/dl for the majority of critically ill & non-critically ill patients. However, more stringent targets may be selected in individual cases. 02/22/16 * 60 yo male (~16 year history of DM) admitted with ascites requiring paracentesis today. Pt is known to the pharmacy glycemic service from past admissions. * Pt was started on glycemic regimen similar to past admissions with similar stressors. * FBG elevated this morning. Will order a one time 25% increase in Lantus dose today. * Tighten NovoLog parameters for improved control post-prandially. 02/23/16 * Mr. Broderick received 76 units of insulin on 02/21 with BSGs ranging from 158- 213mg/dL * desire better control in 60 y/o male - will tighten NovoLog parameters at this time. * Requires less insulin as inpatient compare to home regimen * Fasting BSG today 150mg/dL - no change in basal insulin at this time * may consider increase in basal insulin (desire a 50/50 ratio of basal and prandial insulins) * A1c is current at 8.9% from December 2015 * A1c goal is probably less than 8% due to comorbidities PLAN FOR INPATIENT GLYCEMIC CONTROL: * Continue Lantus 28 units SQ q PM * may consider increase in dose if fasting BSG continue to be above 140mg/dL * Continue NovoLog AC and HS * Correction factor: tighten to 12mg/dL/unit * Carb ratio: tighten to 1 unit per 4g of CHO consumed * Goal range: continue 12-160mg/dL * A1c - current * added to discharge instructions RECOMMENDATIONS FOR DISCHARGE: * Patient follows with [facility] clinical pharmacist to manage diabetes care as an outpatient - defer outpatient insulin titration at this time. * Please note that the plan above was derived based on current level of insulin resistance and hospital stress. These recommendations are appropriate for inpatient admission only. Plan of care upon discharge will need to be reassessed to avoid potential outpatient hypo/hyperglycemia. Thank you.
[2016-02-23 13:41] VITALS: BP 101/63; PULSE 69; TEMP 36.7; O2SAT 98
--- NOTE | 2016-02-23 13:53 | Progress Note ---
Medicine Progress Note Date & Time of Visit: Feb 23, 2016 at 13:44. Subjective Pt was seen and examined Pt said that he feels much better today He said that he had one BM today but it was diarrhea He said that he walked well today with PT he denies any chest chest pain, palpitation, dizziness and SOB Objective Last 8 Hrs Date Time Temp Pulse Resp B/P Pulse Ox O2 Delivery O2 Flow Rate FiO2 02/23/16 08:30 Room Air 02/23/16 07:46 36.7 69 16 101/63 98 Room Air Physical Exam: General- no acute, distress Head- atraumatic Eyes- PERRL, EOMI ENT- oropharynx clear Neck- supple, no JVD Lungs- clear to auscultation and percussion Heart- regular rhythm; no murmur Abdomen- normal bowel sounds, soft, tenderness Extremities- no calf tenderness Neuro- alert, oriented x 3; PERRL, EOMI Skin- warm & dry Laboratory Results: Last 24 Hours Test 02/22/16 16:32 02/22/16 20:10 02/23/16 08:07 02/23/16 08:35 Bedside Glucose 209 mg/dl 206 mg/dl 158 mg/dl White Blood Count 4.90 K/uL Red Blood Count 4.51 M/uL Hemoglobin 10.3 g/dL Hematocrit 31.7 % Mean Corpuscular Volume 70.3 fL Mean Corpuscular Hemoglobin 22.8 pg Mean Corpuscular Hemoglobin Concent 32.5 g/dl RDW Standard Deviation 51.8 fL RDW Coefficient of Variation 20.0 % Platelet Count 70 K/uL Platelet Estimate DECREASED Sodium Level 137 mmol/L Potassium Level 4.0 mmol/L Chloride Level 101 mmol/L Carbon Dioxide Level 25 mmol/L Anion Gap 11.0 mmol/L Blood Urea Nitrogen 11 mg/dl Creatinine 1.10 mg/dl Est Creatinine Clear Calc Drug Dose 77.4 ml/min Estimated GFR () 83.5 Estimated GFR (Non- 72.1 BUN/Creatinine Ratio 9.5 Random Glucose 150 mg/dl Calcium Level 8.1 mg/dl Test 02/23/16 11:28 Bedside Glucose 247 mg/dl Assessment & Plan Abdominal Pain associated with Nausea/Vomiting Cirrhosis of the Liver need to r/o SBP S/P therapeutic paracentesis today Diagnostic paracentesis done yesterday showed no culture growth 5.2 Liter of transudate fluid removed on 02/22/16 Afebrile, NBC Pre and post albumin was given Stable History BETANCOURT Recurrent ascites and needs frequent paracentesis. Contique Lasix, Aldactone, Rifaximin Lactulose increase to QID as per GI advised pt if he develops any diarrhea he can go back on the previous dose for the lactulose that was TID Thrombocytopenia Secondary to liver disease. Platelet 70 No active bleeding Continue monitor CBC Stable. History of Chronic Anemia: Hgb 10.3 Stable. DM On Insulin Aspart and Lantus until PO intake improves SS for now Pharmacy consult for glycemic management. Continue follow with pharmacy as an outpatient to manage his insulin History of Seizure Disorder: Continue Keppra. Stable Constipation Secondary to narcotic had an episode of diarrhea today advised pt if diarrhea continue to hold on the laxative History of PE S/P IVC filter placement Not a candidate for chronic anticoagulation due to low platelet and risk of bleeding Code Status: FULL CODE DVT Prophylaxis: SCDs. Disposition: Discharge today after PT Consultants: [facility] for glycemic control Procedures: Diagnostic and therapeutic Paracentesis Current Inpatient Medications: Current Inpatient Medications Medications (Trade) Dose Ordered Sig/Ryan Route Start Time Stop Time Status Last Admin Dose Admin Al Hydrox/Mg Hydrox/Simethicone (Maalox Max Susp) 15 ml Q4H PRN PO 02/21/16 18:30 03/22/16 18:29 02/22/16 12:09 15 ML Magnesium Hydroxide (Milk Of Magnesia Susp) 30 ml Q6H PRN PO 02/21/16 18:30 03/22/16 18:29 02/23/16 08:15 30 ML Polyethylene (Miralax Powder Packet) 17 gm DAILY PRN PO 02/21/16 18:30 03/22/16 18:29 02/22/16 12:09 17 GM Ondansetron HCl (Zofran Inj) 4 mg Q6H PRN IV 02/21/16 18:30 03/22/16 18:29 02/22/16 12:10 4 MG Miscellaneous Information (Consult Glycemic Management Pharmacy) 1 ea UD PRN N/A 02/21/16 18:55 03/22/16 18:54 Escitalopram Oxalate (Lexapro Tab) 10 mg DAILY PO 02/22/16 08:00 03/23/16 08:59 02/23/16 08:10 10 MG Furosemide (Lasix tab) 40 mg BID17 PO 02/21/16 21:00 03/22/16 20:59 02/23/16 08:10 40 MG Levetiracetam (Keppra Tab) 500 mg AMHS PO 02/21/16 20:00 03/22/16 20:59 02/23/16 08:11 500 MG Levothyroxine Sodium (Synthroid Tab) 75 mcg DAILYBB PO 02/22/16 06:30 03/23/16 06:59 02/23/16 06:43 75 MCG Magnesium Oxide (Mag-Ox Tab) 400 mg BID PO 02/21/16 20:00 03/22/16 20:59 02/23/16 08:11 400 MG Pantoprazole Sodium (Protonix Tab) 40 mg BID PO 02/21/16 20:00 03/22/16 20:59 02/23/16 08:11 40 MG Pregabalin (Lyrica Cap) 75 mg TID PO 02/21/16 20:00 03/22/16 20:59 02/23/16 12:45 75 MG Propranolol HCl (Inderal Tab) 10 mg BID PO 02/21/16 20:00 03/22/16 20:59 02/23/16 08:11 10 MG Rifaximin (Xifaxan Tab) 550 mg AMHS PO 02/21/16 20:00 03/22/16 20:59 02/23/16 08:11 550 MG Spironolactone (Aldactone Tab) 100 mg DAILY PO 02/22/16 08:00 03/23/16 08:59 02/23/16 08:11 100 MG Triamcinolone Acetonide (Kenalog 0.1% Cream) 1 appln BID EXT 02/21/16 20:00 03/22/16 20:59 Pyridoxine HCl (Vitamin B-6 Tab) 25 mg HS PO 02/21/16 21:00 03/22/16 20:59 02/22/16 21:00 25 MG Glucose (Glucose 40% Gel) 15-30 GRAMS 15 GRAMS... UD PRN PO 02/21/16 18:45 03/22/16 18:44 Glucose (Glucose Chew Tab) 4-8 Tablets 4 Tabl... UD PRN PO 02/21/16 18:45 03/22/16 18:44 Dextrose (Dextrose 50% 50ML Syringe) 25-50ML OF 50% DW IV FOR... UD PRN IV 02/21/16 18:45 03/22/16 18:44 Glucagon (Glucagon Inj) 1 mg UD PRN SQ 02/21/16 18:45 03/22/16 18:44 Hydromorphone HCl (Dilaudid Tab) 2 mg Q6 PRN PO 02/21/16 18:45 03/06/16 18:44 02/23/16 12:44 2 MG Insulin Glargine (Lantus Solostar Pen) 28 unit HS SC 02/21/16 21:00 03/22/16 20:59 02/22/16 22:17 28 UNIT Insulin Aspart (novoLOG ASPART) SLIDING SCALE ACHS SC 02/21/16 21:00 03/22/16 20:59 02/23/16 12:51 17 UNITS Miscellaneous (Iv Fluids Completed) 1 ea PRN PRN N/A 02/21/16 20:45 02/20/17 20:44 Lactulose (Chronulac Syrup) 20 gm QID PO 02/22/16 12:00 03/23/16 11:59 02/23/16 12:44 20 GM
[2016-02-23] MEDS ORDERED: LCTL30 PO (13:56)
--- NOTE | 2016-02-23 14:07 | Discharge Instructions ---
Discharge Instructions Admission Reason for Admission: Ascities Discharge Discharge Diagnosis / Problem: Cirrhosis of the Liver, Thrombocytopenia, Constipation Discharge Goals Goal(s): Decrease discomfort, Improve function, Improve disease control Activity Recommendations Activity Limitations: resume your previous activity (as tolerated ) . Instructions / Follow-Up Instructions / Follow-Up Follow up appointment with your primary care physician Dr. Liu on Sunday at 7:50 am Continue PT as an outpatient fall precaution Current Hospital Diet Patient's current hospital diet: Low Sodium Diet (2gm Na), Diabetes Type 2 Diet Discharge Diet Recommended Diet: Low Sodium Diet (2gm Na), Diabetes Type 2 Diet Procedures Procedures Performed: Diagnostic and therapeutic paracentesis Pending Studies Studies pending at discharge: yes List of pending studies: Follow up on acid fast stain on the peritoneal fluid Laboratory Results Hemoglobin A1c Test 12/10/15 17:10 Range/Units Estimated Average Glucose 209 mg/dl Hemoglobin A1c 8.9 H 4.5-5.6 % Medical Emergencies . Who to Call and When: Medical Emergencies: If at any time you feel your situation is an emergency, please call 911 immediately. . Non-Emergent Contact Non-Emergency issues call your: Primary Care Provider Call Non-Emergent contact if: you have a fever, you have any medication questions . . "Provider Documentation" section prepared by Shiva French. VTE Core Measure Inpt VTE Proph given/why not?: SCD's
--- NOTE | 2016-02-26 07:37 | Discharge Summary ---
Discharge Summary Admission Date: Feb 23, 2016 at 07:44 Discharge Date: Feb 23, 2016 Discharge Disposition: Home Principal Diagnosis: Ascites Secondary Diagnoses/Problems: Cirrhosis of the liver, thrombocytopenia, Constipation Procedures: Diagnostic and therapeutic Paracentesis Consultations: [facility] Pharmacy for glycemic control Medication Reconciliation New Medications: Lactulose (Lactulose) 20 Gm/30 Ml Syrp 20 GM PO QID for 30 Days Continued Medications: Escitalopram (Lexapro) 10 Mg Tab 10 MG PO DAILY, TAB Furosemide (Lasix) 40 Mg Tab 40 MG PO BID, TAB Hydromorphone Hcl (Dilaudid) 4 Mg Tab 1 TAB PO BID PRN for Pain for 30 Days, #60 TAB Insulin Aspart 70/30 (Novolog Mix 70/30) Susp 0 SC, BTL Insulin Glargine (Lantus) Vial 28 UNITS SC HS, VIAL Levetiracetam (Keppra) 500 Mg Tab 500 MG PO AMHS ONE AT BREAKFAST AND ONE AT SUPPER. Levothyroxine Sodium (Synthroid) 75 Mcg Tab 75 MCG PO DAILY, TAB Magnesium Oxide (Mag-Ox) 400 Mg Tab 400 MG PO BID Ondasetron Odt (Zofran Odt) 4 Mg Tab 4 MG SL Q6H PRN for Nausea or Vomiting, TAB Pantoprazole (Protonix) 40 Mg Tab 40 MG PO BID, TAB Pregabalin (Lyrica) 75 Mg Cap 75 MG PO TID, CAP Propranolol (Inderal) 10 Mg Tab 10 MG PO BID, TAB Pyridoxine Hcl (Vitamin B-6) 25 Mg Tab 25 MG PO HS Rifaximin (Xifaxan) 550 Mg Tab 550 MG PO AMHS ONE AT BREAKFAST AND ONE AT SUPPER. Spironolactone (Aldactone) 100 Mg Tab 1 TAB PO DAILY for 30 Days, #30 TAB 11 Refills Triamcinolone Acet 0.1% (Aristocort 0.1%) Cr 1 APPLN TOP BID USE TO AFFECTED AREA FOR DERMATITIS Discontinued Medications: Lactulose (Chronulac) 10 Gm/15 Ml Syrp 30 ML PO TID Admission Information HPI (per Admitting provider): 60 year old male who is very well known to our service has a known past medical history of Diabetes, End Stage Liver disease, Dyslipidemia, Portal Hypertension , History PE, S/P IVC filter placement, Anxiety/Depression presents to the ER with chief complaint of intermittent cramping pains to his right abdomen since last evening. Currently, he is feeling nauseous and he rates his discomfort as a 7/10 on a pain scale of 0-10, which was not relieved after taking Zofran PRN. Patient states that he has a history of chronic pains secondary to ascites and takes Dilaudid at home, but he became concerned as he developed more severe cramping pains last evening, which he states felt similar to when he had bacterial peritonitis. The patient waited to come to the hospital until his appointment for paracentesis this morning, which he has about every two weeks, however, after walking into the building, his legs suddenly became weak, and he almost fell to the floor. Patient was able to catch himself before falling, however the scalp treatment specialist sent him to the ED for further evaluation secondary to these symptoms. The patient denies recent fevers, chills, chest pain, shortness of breath, or vomiting, and he states that he has been able to urinate and move his bowels normally without diarrhea or blood, no dark or tarry stools. He does note pain to a ventral hernia, which his scalp treatment specialist told him appeared to be new. He does have history of umbilical hernia, which he states is unchanged from baseline. Physical Exam (per Admitting): General Appearance: WD/WN, no apparent distress Head: normocephalic, atraumatic Eyes: normal inspection, PERRL, EOMI ENT: normal ENT inspection, hearing grossly normal, TMs normal, pharynx normal Neck: supple, no adenopathy, thyroid normal, no JVD, trachea midline Respiratory/Chest: chest non-tender, lungs clear, no respiratory distress, no accessory muscle use Cardiovascular: regular rate, rhythm, no edema, no gallop, normal peripheral pulses Abdomen/GI: normal bowel sounds, Pain on deep palpation, soft, + distended ( Due to ascites) Extremities/Musculoskelatal: normal inspection, no calf tenderness, normal capillary refill Neurologic/Psych: normal mood/affect, normal reflexes, oriented x 3 Skin: normal color, warm/dry, no rash Lymphatic: no adenopathy Hospital Course Abdominal Pain associated with Nausea/Vomiting Cirrhosis of the Liver need to r/o SBP S/P therapeutic paracentesis today Diagnostic paracentesis done yesterday showed no culture growth 5.2 Liter of transudate fluid removed on 02/22/16 Afebrile, NBC Pre and post albumin was given Stable History BETANCOURT Recurrent ascites and needs frequent paracentesis. Contique Lasix, Aldactone, Rifaximin Lactulose increase to QID as per GI advised pt if he develops any diarrhea he can go back on the previous dose for the lactulose that was TID Thrombocytopenia Secondary to liver disease. Platelet 70 No active bleeding Continue monitor CBC Stable. History of Chronic Anemia: Hgb 10.3 Stable. DM On Insulin Aspart and Lantus until PO intake improves SS for now Pharmacy consult for glycemic management. Continue follow with pharmacy as an outpatient to manage his insulin History of Seizure Disorder: Continue Keppra. Stable Constipation Secondary to narcotic had an episode of diarrhea today advised pt if diarrhea continue to hold on the laxative History of PE S/P IVC filter placement Not a candidate for chronic anticoagulation due to low platelet and risk of bleeding Code Status: FULL CODE DVT Prophylaxis: SCDs. Disposition: Discharge today after PT Total time spent on discharge = 35 minutes This includes examination of the patient, discharge planning, medication reconciliation, and communication with other providers. Discharge Instructions DI: Medical v4 Discharge Instructions Admission Reason for Admission: Ascities Discharge Discharge Diagnosis / Problem: Cirrhosis of the Liver, Thrombocytopenia, Constipation Discharge Goals Goal(s): Decrease discomfort, Improve function, Improve disease control Activity Recommendations Activity Limitations: resume your previous activity (as tolerated ) . Instructions / Follow-Up Instructions / Follow-Up Follow up appointment with your primary care physician Dr. Liu on Sunday at 7:50 am Continue PT as an outpatient fall precaution Current Hospital Diet Patient's current hospital diet: Low Sodium Diet (2gm Na), Diabetes Type 2 Diet Discharge Diet Recommended Diet: Low Sodium Diet (2gm Na), Diabetes Type 2 Diet Procedures Procedures Performed: Diagnostic and therapeutic paracentesis Pending Studies Studies pending at discharge: yes List of pending studies: Follow up on acid fast stain on the peritoneal fluid Laboratory Results Hemoglobin A1c Test 12/10/15 17:10 Range/Units Estimated Average Glucose 209 mg/dl Hemoglobin A1c 8.9 H 4.5-5.6 % Medical Emergencies . Who to Call and When: Medical Emergencies: If at any time you feel your situation is an emergency, please call 911 immediately. . Non-Emergent Contact Non-Emergency issues call your: Primary Care Provider Call Non-Emergent contact if: you have a fever, you have any medication questions . . "Provider Documentation" section prepared by Shiva French. VTE Core Measure Inpt VTE Proph given/why not?: SCD's Additional Copies To Giulia Liu M.D.
[2016-03-28] MEDS ORDERED: ZNT150 PO (10:54)
[2016-05-23] MEDS ORDERED: HYDR4TAB78 PO (09:03)
[2016-07-01] MEDS ORDERED: MAGN400T5 PO (01:36)
[2016-07-01] MEDS ORDERED: DIPH50TA10 PO (02:00)
[2016-07-01] MEDS ORDERED: TRMCR130WC EXT (03:58)
[2016-07-01] MEDS ORDERED: LACT10SO17 PO (04:04)
[2016-07-01] MEDS ORDERED: PYRI25TA PO (04:52)
[2016-07-01] MEDS ORDERED: PROP10TA7 PO (04:52)
[2016-07-01] MEDS ORDERED: FURO-85 PO (05:55)
[2016-07-01] MEDS ORDERED: ONDA4TAB10 SL (12:02)
[2016-07-01] MEDS ORDERED: LEVO75TA PO (12:02)
[2016-07-01] MEDS ORDERED: RIFA550T2 PO (13:45)
[2016-07-01] MEDS ORDERED: FERR1TAB13 PO (14:58)
[2016-07-01] MEDS ORDERED: INSDGI SC (16:08)
[2016-07-01] MEDS ORDERED: LEVE500T PO (16:08)
[2016-08-22] MEDS ORDERED: INSDGI SC (09:03)
[2016-08-22] MEDS ORDERED: MRLP17 PO (09:03)
[2016-08-29] MEDS ORDERED: POLY335019 PO (12:27)
[2016-08-29] MEDS ORDERED: INSDGI SC (12:27)
[2016-10-28] MEDS ORDERED: XFX550 PO (14:18)
[2016-11-06] MEDS ORDERED: LCTX PO (14:29)
[2016-11-06] MEDS ORDERED: CLIN300C2 PO (14:29)
== END 2016-02-23 17:11 | disposition home health service (06) | DRG 433 ==
LOC: ENRESERVDT → ENRESERVTM → EDUNIT# 09:30 → EDBD 09:30 → C.EDC 09:36 → C.4E 18:17 → OBSVTOIN 02-23 07:44
PROVIDERS: ADMIT Emergency Medicine; ATTEND Internal Medicine
PROC: 0W9G3ZX Drainage of Peritoneal Cavity, Percutaneous Approach, Diagnostic (ICD-10-PCS; principal; 2016-02-21)
PROC: 0W9G3ZZ Drainage of Peritoneal Cavity, Percutaneous Approach (ICD-10-PCS; 2016-02-22)
DX: K74.60 Unspecified cirrhosis of liver (principal); K76.6 Portal hypertension; I85.00 Esophageal varices without bleeding; K75.81 Nonalcoholic steatohepatitis (NASH); D69.6 Thrombocytopenia, unspecified; K59.00 Constipation, unspecified; R11.2 Nausea with vomiting, unspecified; E03.9 Hypothyroidism, unspecified; G40.909 Epilepsy, unspecified, not intractable, without status epilepticus; E78.5 Hyperlipidemia, unspecified; D64.9 Anemia, unspecified; R42 Dizziness and giddiness; R26.9 Unspecified abnormalities of gait and mobility; E11.9 Type 2 diabetes mellitus without complications; F41.9 Anxiety disorder, unspecified; F32.9 Major depressive disorder, single episode, unspecified; K72.90 Hepatic failure, unspecified without coma; R10.9 Unspecified abdominal pain; Z95.828 Presence of other vascular implants and grafts; Z86.711 Personal history of pulmonary embolism; Z86.79 Personal history of other diseases of the circulatory system; Z86.718 Personal history of other venous thrombosis and embolism; Z98.1 Arthrodesis status; Z79.899 Other long term (current) drug therapy; Z79.4 Long term (current) use of insulin; Z79.891 Long term (current) use of opiate analgesic

== ENCOUNTER 2016-03-13 15:18 | Inpatient (IN) | payer OTHER ==
[~2016-03-13] VITALS: Ht 182.9 cm; Wt 80.5 kg
[~2016-03-13 15:18] MED LIST changes: -LACT10SO17 PO; +LCTL30 PO
[2016-03-13] MEDS ORDERED: SODIUM CHLORIDE 0.9% 1000ML 1,000 ML IV STA (15:29)
[2016-03-13] MEDS ORDERED: ONDANSETRON INJ 2 MG/ML 2 ML VIAL IV STA (15:29)
[2016-03-13] MEDS ORDERED: MoRPHine SULFATE 4 MG/ML 1 ML CARP\\VIAL IV PRN (15:30)
--- NOTE | 2016-03-13 15:36 | EMERGENCY ROOM VISIT NOTE ---
History Report prepared by Alla: No Schilling Under the Supervision of: Dr. Adrian Miner D.O. First contact with patient: 15:22 Stated Complaint: ILLNESS, LEG WEAKNESS History of Present Illness The patient is a 60 year old male who presents to the Emergency Room with complaints of a persistent illness that began around 0 last evening. The patient states that he has had 10 episodes of diarrhea since 2199 last evening and additionally states that he has had an increase in urination. He denies any melena or hematochezia. The patient additionally notes abdominal pain, nausea, and vomiting today and additionally states that his abdomen feels more distension. He denies any hematemesis. The patient states that he has had bilateral leg weakness and a headache, but denies any dizziness or lightheadedness with ambulation. He denies any burning with urination or fever. The patient states that he saw his PCP today and was told to come to the emergency department for further evaluation. He denies being on any recent antibiotics and denies any history of c-diff. The patient states that he has had a previous colonoscopy but denies any previous abdominal surgeries. He denies any heart history. The patient states that he lives at home with a roommate, noting that his roommate helps to take care of him. Source of History: patient Onset: 2199 last evening Position: other (global) Quality: other (illness) Timing: other (persistent) Associated Symptoms: + abdominal pain, + diarrhea, + headache, + nausea, + urinary symptoms (increased frequency), + vomiting, + weakness (bilateral legs) , No fevers, No hematochezia, No melena Note: Associated Symptoms: Abdominal distension. Review of Systems See HPI for pertinent positives & negatives. A total of 10 systems reviewed and were otherwise negative. 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 Surgical Problems: (1) H/O esophagogastroduodenoscopy (2) H/O knee surgery (3) S/P cervical spinal fusion (4) S/P IVC filter (5) S/P lumbar fusion (6) S/P T&A (status post tonsillectomy and adenoidectomy) Social History Problems: (1) halfway resident Family History Diabetes mellitus FH: cancer FH: heart disease Hypertension Kidney disease Social History Smoking Status: Never Smoker Alcohol Use: none Drug Use: none Marital Status: Housing Status: lives alone Occupation Status: disabled Current/Historical Medications Scheduled Escitalopram (Lexapro), 10 MG PO DAILY Furosemide (Lasix), 40 MG PO BID Insulin Glargine (Lantus), 28 UNITS SC HS Lactulose (Lactulose), 20 GM PO QID Levetiractam (Levetiracetam), 500 MG PO AMHS Levothyroxine Sodium (Synthroid), 75 MCG PO DAILY Magnesium Oxide (Mag-Ox), 400 MG PO BID Pantoprazole (Protonix), 40 MG PO BID Pregabalin (Lyrica), 75 MG PO TID Propranolol (Inderal), 10 MG PO BID Pyridoxine Hcl (Vitamin B-6), 25 MG PO HS Rifaximin (Xifaxan), 550 MG PO AMHS Spironolactone (Aldactone), 1 TAB PO DAILY Triamcinolone Acet 0.1% (Aristocort 0.1%), 1 APPLN TOP BID Scheduled PRN Hydromorphone Hcl (Dilaudid), 1 TAB PO BID PRN for Pain Ondasetron Odt (Zofran Odt), 4 MG SL Q6H PRN for Nausea or Vomiting Miscellaneous Medications Insulin Aspart 70/30 (Novolog Mix 70/30), 0 SC Allergies Coded Allergies: NSAIDs (Verified Allergy, Severe, DUE TO LIVER DISEAS, 03/13/16) Penicillins (Verified Allergy, Severe, JOINT SWELLING AND FEVER, 03/13/16) Levofloxacin (Verified Allergy, Mild, RASH, 03/13/16) pt developed erythema at site of IV injection with itching Vancomycin (Verified Allergy, Mild, HIVES, 03/13/16) HIVES Acetaminophen (Unverified Allergy, Unknown, unknown, 03/13/16) Tramadol (Verified Allergy, Unknown, NOT TO TAKE WITH KEPPRA DUE TO SEIZURE RISK, 03/13/16) Physical Exam Vital Signs Date Time Temp Pulse Resp B/P Pulse Ox O2 Delivery O2 Flow Rate FiO2 03/13/16 17:29 68 18 115/69 96 03/13/16 15:34 67 03/13/16 15:29 36.9 77 18 126/62 94 Room Air Physical Exam GENERAL: Patient is somewhat listless appearing, but comfortable. No pain at this time. EYES: The conjunctivae are clear. The pupils are round and reactive. EARS, NOSE, MOUTH AND THROAT: The nose is without any evidence of any deformity. Mucous membranes are dry tongue is midline NECK: The neck is nontender and supple. RESPIRATORY: Normal respiratory effort is noted there is no evidence of wheezing rhonchi or rales CARDIOVASCULAR: Regular rate and rhythm noted there no murmurs rubs or gallops normal S1 normal S2 GASTROINTESTINAL: The abdomen is moderately distended, but soft. Diffuse tenderness to palpation, but no guarding or rigidity. MUSCULOSKELETAL/EXTREMITIES: There is no evidence of gross deformity full range of motion is noted in the hips and shoulders SKIN: Pedal edema bilaterally. There is no obvious evidence of any rash. There are no petechiae, pallor or cyanosis noted. NEUROLOGIC: Patient is awake alert and oriented x3. Medical Decision & Procedures ER Provider Diagnostic Interpretation: X ray results and stated below per my interpretation and radiology interpretation. Other radiology results per my review and radiologist interpretation: CT HEAD WITHOUT CONTRAST (CT) CLINICAL HISTORY: Headache COMPARISON STUDY: 11/22/2015 TECHNIQUE: Axial CT of the brain is performed from the vertex to the skull base. IV contrast was not administered for this examination. CT DOSE: 537.48 mGy.cm FINDINGS: No intra or extra-axial mass lesions are visualized. There is no CT evidence of acute cortical infarction. There is no evidence of midline shift. There is no acute hemorrhage. No calvarial fractures are visualized. There are minimal white matter hypodensities likely on a small vessel basis. There is no evidence of pathologic ventricular dilatation. There is no evidence of acute sinusitis IMPRESSION: No acute intracranial findings Electronically signed by: Pawan Garner M.D. 03/13/2016 5:24 PM Dictated Date/Time: 03/13/2016 5:23 PM CHEST ONE VIEW PORTABLE CLINICAL HISTORY: Pain radiating to the abdomen. Leg weakness. COMPARISON STUDY: 02/21/2016 FINDINGS: The heart is normal in size. There is no failure. There are no pleural effusions. Postsurgical changes are present within the cervical spine. There are persistent linear opacities at the left lung base, likely atelectatic. Lower mediastinal widening remain stable. This is again consistent with a hiatal hernia and esophageal varices.[ IMPRESSION: Persistent left basilar atelectatic changes. No acute findings. Electronically signed by: Pawan Garner M.D. 03/13/2016 4:13 PM Dictated Date/Time: 03/13/2016 4:[address] SCAN OF THE ABDOMEN AND PELVIS WITHOUT CONTRAST CLINICAL HISTORY: Diffuse abdominal pain and diarrhea COMPARISON STUDY: 02/21/2016 TECHNIQUE: CT scan of the abdomen and pelvis was performed from the lung bases to the proximal femurs. Images are reviewed in the axial, sagittal, and coronal planes. IV contrast was not administered for this examination. CT DOSE: 548.54 mGy.cm FINDINGS: Lower chest: There is bilateral gynecomastia. There is a hiatal hernia. There are suspected esophageal varices. Liver: The liver has a cirrhotic morphology. No focal masses are visualized this noncontrast study. Gallbladder: Cholelithiasis again evident. Spleen: The spleen remains enlarged unchanged the prior study. Pancreas: Unremarkable. Adrenal glands: Unremarkable. Kidneys: The unenhanced kidneys are normal in size without hydronephrosis. There is no contour deforming renal mass lesion. No renal calculi are identified. Bowel: There are no transition zones indicate bowel obstruction. The appendix appears normal as visualized. Peritoneum: There is moderate to large is volume ascites, similar to the preceding study. Vasculature: There is no evidence of abdominal aortic dilatation. There is an indwelling IVC filter. Adenopathy: None. Pelvic viscera: The bladder, and pelvic viscera are unremarkable. Skeletal structures: Postsurgical changes are present within the spine IMPRESSION: 1. Cirrhotic liver morphology with splenomegaly, moderate to large volume ascites, esophageal and upper abdominal varices 2. Cholelithiasis 3. Hiatal hernia 4. No evidence of bowel obstruction. No evidence of free air Electronically signed by: Pawan Garner M.D. 03/13/2016 5:31 PM Dictated Date/Time: 03/13/2016 5:27 PM Laboratory Results 03/13/16 16:20 Red Blood Count 4.39, Mean Corpuscular Volume 69.5, Mean Corpuscular Hemoglobin 23.0, Mean Corpuscular Hemoglobin Concent 33.1, Neutrophils (%) (Auto) 80.4, Lymphocytes (%) (Auto) 9.0, Monocytes (%) (Auto) 7.9, Eosinophils (%) (Auto) 2.0 , Basophils (%) (Auto) 0.6, Neutrophils # (Auto) 5.69, Lymphocytes # (Auto) 0.64 , Monocytes # (Auto) 0.56, Eosinophils # (Auto) 0.14, Basophils # (Auto) 0.04 03/13/16 16:20 Test 03/13/16 16:20 03/13/16 16:45 White Blood Count 7.08 K/uL (4.8-10.8) Red Blood Count 4.39 M/uL (4.7-6.1) Hemoglobin 10.1 g/dL (14.0-18.0) Hematocrit 30.5 % (42-52) Mean Corpuscular Volume 69.5 fL (80-100) Mean Corpuscular Hemoglobin 23.0 pg (25-34) Mean Corpuscular Hemoglobin Concent 33.1 g/dl (32-36) Platelet Count 62 K/uL (130-400) Neutrophils (%) (Auto) 80.4 % Lymphocytes (%) (Auto) 9.0 % Monocytes (%) (Auto) 7.9 % Eosinophils (%) (Auto) 2.0 % Basophils (%) (Auto) 0.6 % Neutrophils # (Auto) 5.69 K/uL (1.4-6.5) Lymphocytes # (Auto) 0.64 K/uL (1.2-3.4) Monocytes # (Auto) 0.56 K/uL (0.11-0.59) Eosinophils # (Auto) 0.14 K/uL (0-0.5) Basophils # (Auto) 0.04 K/uL (0-0.2) RDW Standard Deviation 47.0 fL (36.4-46.3) RDW Coefficient of Variation 18.6 % (11.5-14.5) Immature Granulocyte % (Auto) 0.1 % Immature Granulocyte # (Auto) 0.01 K/uL (0.00-0.02) Platelet Estimate DECREASED Polychromasia 1+ Microcytosis PRESENT Prothrombin Time 13.6 SECONDS (9.0-12.0) Prothromb Time International Ratio 1.3 (0.9-1.1) Activated Partial Thromboplast Time 23.3 SECONDS (21.0-31.0) Partial Thromboplastin Ratio 0.9 Anion Gap 11.0 mmol/L (3-11) Est Creatinine Clear Calc Drug Dose 60.8 ml/min Estimated GFR () 62.4 Estimated GFR (Non- 53.8 BUN/Creatinine Ratio 9.0 (10-20) Calcium Level 8.2 mg/dl (8.5-10.1) Magnesium Level 2.2 mg/dl (1.8-2.4) Total Bilirubin 1.7 mg/dl (0.2-1) Direct Bilirubin 0.8 mg/dl (0-0.2) Aspartate Amino Transf (AST/SGOT) 25 U/L (15-37) Alanine Aminotransferase (ALT/SGPT) 22 U/L (12-78) Alkaline Phosphatase 141 U/L (45-117) Total Protein 6.4 gm/dl (6.4-8.2) Albumin 2.8 gm/dl (3.4-5.0) Lipase 84 U/L (73-393) Beta-Hydroxybutyric Acid 2.24 mg/dL (0.2-2.81) Urine Color YELLOW Urine Appearance CLEAR (CLEAR) Urine pH 6.5 (4.5-7.5) Urine Specific [place] 1.031 (1.000-1.030) Urine Protein NEG (NEG) Urine Glucose (UA) 3+ (NEG) Urine Ketones NEG (NEG) Urine Occult Blood NEG (NEG) Urine Nitrite NEG (NEG) Urine Bilirubin NEG (NEG) Urine Urobilinogen NEG (NEG) Urine Leukocyte Esterase NEG (NEG) Laboratory results per my review. Medications Administered Medications (Trade) Dose Ordered Sig/Ryan Route Start Time Stop Time Status Last Admin Dose Admin Sodium Chloride (Nss 1000ml) 1,000 ml @ 999 mls/hr Q1H1M STAT IV 03/13/16 15:29 03/13/16 16:29 DC 03/13/16 15:29 999 MLS/HR Morphine Sulfate (MoRPHine SULFATE INJ) 4 mg Q15M PRN IV 03/13/16 15:30 03/27/16 15:29 03/13/16 16:41 4 MG Ondansetron HCl (Zofran Inj) 4 mg NOW STAT IV 03/13/16 15:29 03/13/16 15:31 DC 03/13/16 16:40 4 MG Hydromorphone HCl (Dilaudid Inj) 1 mg Q30M PRN IV 03/13/16 17:00 03/27/16 16:59 03/13/16 17:26 1 MG Insulin Human Regular (novoLIN-R U-100 PER UNIT) 10 units NOW STAT IV 03/13/16 17:34 03/13/16 17:35 DC 03/13/16 17:34 10 UNITS ED Course 1523: The patient was evaluated in room B10. A complete history and physical examination were performed. 1529: Ordered Zofran Inj 4 mg IV, Sodium Chloride 1000 ml @ 999 mls/hr IV, Morphine Sulfate 4 mg IV. 1700: Ordered Dilaudid Inj 1 mg IV. 1734: Ordered Insulin Human Regular 10 units IV. 1737: I reevaluated the patient and he is feeling a little bit better. I discussed all the exam findings with him and I discussed the treatment plan. He verbalized complete understanding and agreement. He will be evaluated for further treatment. 174: I discussed the patient's case with Omar Brock. She is going to evaluate the patient for further treatment. Medical Decision Differential diagnosis: Etiologies such as appendicitis, diverticulitis, PUD, biliary pathology, UTI, pancreatitis, obstruction, mesenteric ischemia, aortic pathology, infections, inflammatory bowel disease, renal colic, as well as others were entertained. Nursing notes reviewed. The patient is a 60-year-old male who has a history of liver disease who presented to the emergency department for an evaluation of diarrhea. The patient appeared to be very dehydrated on physical exam. He also has significant hyperglycemia. The patient was treated with IV fluids and IV insulin in emergency department. He was also treated with IV pain medication and IV antiemetics. On subsequent reevaluation he was feeling much better. He continued to have significant hyperglycemia. For this reason I discussed his case with the on-call [facility] hospitalist group. They have agreed to evaluate the patient at the emergency department for further management and disposition. The patient's stool sample still pending. Consults Time Called: 174 Consulting Physician: Omar Brock Returned Call: 174 I discussed the patient's case with Omar Brock. She is going to evaluate the patient for further treatment. Impression Primary Impression: Abdominal pain, left lower quadrant Additional Impressions: Diarrhea Hyperglycemia Scribe Attestation The scribe's documentation has been prepared under my direction and personally reviewed by me in its entirety. I confirm that the note above accurately reflects all work, treatment, procedures, and medical decision making performed by me. Departure Information Dispostion Being Evaluated By Hospitalist Giulia Ceron M.D. (PCP) Problem Qualifiers
--- NOTE | 2016-03-13 16:14 | DIAGNOSTIC IMAGING REPORT ---
CHEST ONE VIEW PORTABLE CLINICAL HISTORY: Pain radiating to the abdomen. Leg weakness. COMPARISON STUDY: 02/21/2016 FINDINGS: The heart is normal in size. There is no failure. There are no pleural effusions. Postsurgical changes are present within the cervical spine. There are persistent linear opacities at the left lung base, likely atelectatic. Lower mediastinal widening remain stable. This is again consistent with a hiatal hernia and esophageal varices.[ IMPRESSION: Persistent left basilar atelectatic changes. No acute findings. Electronically signed by: Pawan Garner M.D. 03/13/2016 4:13 PM Dictated Date/Time: 03/13/2016 4:11 PM
[2016-03-13 16:54] LABS: MEAN CORPUSCULAR HGB CONC 33.1 g/dl (32-36)
[2016-03-13 16:57] LABS: HEMATOCRIT 30.5 % (42-52); MEAN CELL VOLUME 69.5 fL (80-100); RED BLOOD COUNT 4.39 M/uL (4.7-6.1); WHITE BLOOD COUNT 7.08 K/uL (4.8-10.8)
[2016-03-13] MEDS ORDERED: HYDROmorphone INJ 1 MG/ML SYR IV PRN (17:00)
[2016-03-13 17:10] LABS: INR 1.3 (0.9-1.1); PARTIAL THROMBOPLASTIN RATIO 0.9; PROTHROMBIN TIME (PATIENT) 13.6 SECONDS (9.0-12.0)
[2016-03-13 17:16] LABS: BASO % 0.6 %; BASO ABS # 0.04 K/uL (0-0.2); COMPLETE YES; IG% 0.1 %; LYMPH ABS # 0.64 K/uL (1.2-3.4); MICROCYTOSIS PRESENT; MONO % 7.9 %; NEUT % 80.4 %; PLATELET COUNT 62 K/uL (130-400); PLT ESTIMATE DECREASED; POLYCHROMASIA 1+
[2016-03-13 17:17] LABS: URINE APPEARANCE CLEAR (CLEAR); URINE BILIRUBIN NEG (NEG); URINE COLOR YELLOW; URINE NITRITE NEG (NEG); URINE PH 6.5 (4.5-7.5); URINE SPECIFIC GRAVITY 1.031 (1.000-1.030); UROBILINOGEN NEG (NEG)
[2016-03-13 17:18] LABS: MANUAL MICROSCOPIC REQUIRED? NO; REVIEW REQ? NO
[2016-03-13 17:22] LABS: CALCIUM 8.2 mg/dl (8.5-10.1); CREATININE 1.4 mg/dl (0.60-1.40); MAGNESIUM 2.2 mg/dl (1.8-2.4); POTASSIUM 4.7 mmol/L (3.5-5.1)
--- NOTE | 2016-03-13 17:26 | DIAGNOSTIC IMAGING REPORT ---
CT HEAD WITHOUT CONTRAST (CT) CLINICAL HISTORY: Headache COMPARISON STUDY: 11/22/2015 TECHNIQUE: Axial CT of the brain is performed from the vertex to the skull base. IV contrast was not administered for this examination. CT DOSE: 537.48 mGy.cm FINDINGS: No intra or extra-axial mass lesions are visualized. There is no CT evidence of acute cortical infarction. There is no evidence of midline shift. There is no acute hemorrhage. No calvarial fractures are visualized. There are minimal white matter hypodensities likely on a small vessel basis. There is no evidence of pathologic ventricular dilatation. There is no evidence of acute sinusitis IMPRESSION: No acute intracranial findings Electronically signed by: Pawan Garner M.D. 03/13/2016 5:24 PM Dictated Date/Time: 03/13/2016 5:23 PM
--- NOTE | 2016-03-13 17:33 | DIAGNOSTIC IMAGING REPORT ---
CT SCAN OF THE ABDOMEN AND PELVIS WITHOUT CONTRAST CLINICAL HISTORY: Diffuse abdominal pain and diarrhea COMPARISON STUDY: 02/21/2016 TECHNIQUE: CT scan of the abdomen and pelvis was performed from the lung bases to the proximal femurs. Images are reviewed in the axial, sagittal, and coronal planes. IV contrast was not administered for this examination. CT DOSE: 548.54 mGy.cm FINDINGS: Lower chest: There is bilateral gynecomastia. There is a hiatal hernia. There are suspected esophageal varices. Liver: The liver has a cirrhotic morphology. No focal masses are visualized this noncontrast study. Gallbladder: Cholelithiasis again evident. Spleen: The spleen remains enlarged unchanged the prior study. Pancreas: Unremarkable. Adrenal glands: Unremarkable. Kidneys: The unenhanced kidneys are normal in size without hydronephrosis. There is no contour deforming renal mass lesion. No renal calculi are identified. Bowel: There are no transition zones indicate bowel obstruction. The appendix appears normal as visualized. Peritoneum: There is moderate to large is volume ascites, similar to the preceding study. Vasculature: There is no evidence of abdominal aortic dilatation. There is an indwelling IVC filter. Adenopathy: None. Pelvic viscera: The bladder, and pelvic viscera are unremarkable. Skeletal structures: Postsurgical changes are present within the spine IMPRESSION: 1. Cirrhotic liver morphology with splenomegaly, moderate to large volume ascites, esophageal and upper abdominal varices 2. Cholelithiasis 3. Hiatal hernia 4. No evidence of bowel obstruction. No evidence of free air Electronically signed by: Pawan Garner M.D. 03/13/2016 5:31 PM Dictated Date/Time: 03/13/2016 5:27 PM
[2016-03-13] MEDS ORDERED: NovoLIN-R INSULIN PER UNIT CHARGE IV STA (17:34)
[2016-03-13 17:42] LABS: BETA-HYDROXYBUTYRATE 2.24 mg/dL (0.2-2.81)
[2016-03-13] MEDS ORDERED: HHS GOAL RANGE 250-350 mg/dl ONE (18:30)
[2016-03-13] MEDS ORDERED: SEVERE STRESS LEVEL ONE (18:30)
[2016-03-13] MEDS ORDERED: PHARMACY GLYCEMIC MGMT CONSULT PRN (18:38)
[2016-03-13] MEDS ORDERED: INSULIN IV INFUSION PROTOCOL SCH (18:45)
[2016-03-13] MEDS ORDERED: LCTL30 PO (18:47)
[2016-03-13] MEDS ORDERED: INSU1INJ2 SQ (18:48)
[2016-03-13] MEDS ORDERED: COUGH DROP (SUGAR FREE) LOZ 24 LOZ/1 BOX PO PRN (19:00)
--- NOTE | 2016-03-13 19:36 | History and Physical ---
History & Physical Date & Time of Service: Mar 13, 2016 at 19:05 Chief Complaint: Urinary Frequency, Diarrhea Primary Care Physician: Giulia Liu M.D. History of Present Illness 60 year old male who presents to the ER for evaluation of urinary frequency and diarrhea. Patient was recently admitted to [facility] 02/22 for abdominal pain. Patient underwent 5.2L paracentesis. No SBP. Patient has BETANCOURT and undergoes frequent paracentesis. Patient reports feeling well since his discharge until this past week. He reports he has noticed urinary frequency and has been urinating up to 20 times per day. He denies hematuria or dysuria. He has chronic loose stools due to Lactulose however reports stools have increased infrequency and and are looser. He has chronic lower abdominal pain which is unchanged. He denies fever and chills. Abdomen has been getting more distended. He reports he requires paracentesis every 10-14 days and has not had one since his previous hospital admission. He denies chest pain and shortness of breath. No lightheadedness, dizziness, or syncopal events. He reports his blood sugars have been ranging from the 100s-300s. In the ER, patient's glucose is 624. CT abd/pelvis shows moderate-large ascites. Remainder of his labs and imaging are unremarkable. He was given IVF, Zofran, Morphine, Dilaudid, and 10 units IV insulin. 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 Surgical Problems: (1) H/O esophagogastroduodenoscopy Status: Resolved (2) H/O knee surgery Status: Resolved (3) S/P cervical spinal fusion Status: Resolved (4) S/P IVC filter Status: Resolved (5) S/P lumbar fusion Status: Resolved (6) S/P T&A (status post tonsillectomy and adenoidectomy) Status: Resolved Family History FH: CAD (coronary artery disease) FATHER FH: breast cancer MOTHER Social History Smoking Status: Never Smoker Alcohol Use: none Housing status: lives with roommate Immunizations History of Influenza Vaccine: Yes Influenza Vaccine Date: Oct 21, 2014 History of Pneumococcal: Yes Pneumococcal Date: Feb 05, 2009 Allergies Coded Allergies: NSAIDs (Verified Allergy, Severe, DUE TO LIVER DISEAS, 03/13/16) Penicillins (Verified Allergy, Severe, JOINT SWELLING AND FEVER, 03/13/16) Levofloxacin (Verified Allergy, Mild, RASH, 03/13/16) pt developed erythema at site of IV injection with itching Vancomycin (Verified Allergy, Mild, HIVES, 03/13/16) HIVES Acetaminophen (Unverified Allergy, Unknown, unknown, 03/13/16) Tramadol (Verified Allergy, Unknown, NOT TO TAKE WITH KEPPRA DUE TO SEIZURE RISK, 03/13/16) Home Medications Scheduled Escitalopram (Lexapro), 10 MG PO DAILY Furosemide (Lasix), 40 MG PO BID Insulin Aspart (Novolog Penfill), SQ TIDM Insulin Glargine (Lantus), 28 UNITS SC HS Lactulose (Lactulose), 20 GM PO TID Levetiractam (Levetiracetam), 500 MG PO AMHS Levothyroxine Sodium (Synthroid), 75 MCG PO DAILY Magnesium Oxide (Mag-Ox), 400 MG PO BID Pantoprazole (Protonix), 40 MG PO BID Pregabalin (Lyrica), 75 MG PO TID Propranolol (Inderal), 10 MG PO BID Pyridoxine Hcl (Vitamin B-6), 25 MG PO HS Rifaximin (Xifaxan), 550 MG PO AMHS Spironolactone (Aldactone), 1 TAB PO DAILY Triamcinolone Acet 0.1% (Aristocort 0.1%), 1 APPLN TOP BID Scheduled PRN Hydromorphone Hcl (Dilaudid), 1 TAB PO TID PRN for Pain Ondasetron Odt (Zofran Odt), 4 MG SL Q6H PRN for Nausea or Vomiting Review of Systems 10 point review of systems was completed with the pertinent positives and negatives noted per the HPI Physical Exam Vital Signs Date Time Temp Pulse Resp B/P Pulse Ox O2 Delivery O2 Flow Rate FiO2 03/13/16 18:42 70 16 115/69 96 Room Air 03/13/16 17:29 68 18 115/69 96 03/13/16 15:34 67 03/13/16 15:29 36.9 77 18 126/62 94 Room Air General Appearance: no apparent distress Head: normocephalic Eyes: normal inspection ENT: hearing grossly normal, + pharyngeal erythema (with exudate) Neck: supple, no JVD Respiratory/Chest: lungs clear, normal breath sounds, no respiratory distress Cardiovascular: regular rate, rhythm, + pertinent finding (trace edema BLLE) Abdomen/GI: normal bowel sounds, soft, + tenderness (lower abdomen), + distended (ascites) Extremities/Musculoskelatal: normal inspection, no calf tenderness Neurologic/Psych: no motor/sensory deficits, alert, normal mood/affect, oriented x 3 Skin: normal color, warm/dry Diagnostics Laboratory Results Results Past 24 Hours Test 03/13/16 16:20 03/13/16 16:45 Range/Units White Blood Count 7.08 4.8-10.8 K/uL Red Blood Count 4.39 4.7-6.1 M/uL Hemoglobin 10.1 14.0-18.0 g/dL Hematocrit 30.5 42-52 % Mean Corpuscular Volume 69.5 80-100 fL Mean Corpuscular Hemoglobin 23.0 25-34 pg Mean Corpuscular Hemoglobin Concent 33.1 32-36 g/dl Platelet Count 62 130-400 K/uL Neutrophils (%) (Auto) 80.4 % Lymphocytes (%) (Auto) 9.0 % Monocytes (%) (Auto) 7.9 % Eosinophils (%) (Auto) 2.0 % Basophils (%) (Auto) 0.6 % Neutrophils # (Auto) 5.69 1.4-6.5 K/uL Lymphocytes # (Auto) 0.64 1.2-3.4 K/uL Monocytes # (Auto) 0.56 0.11-0.59 K/uL Eosinophils # (Auto) 0.14 0-0.5 K/uL Basophils # (Auto) 0.04 0-0.2 K/uL RDW Standard Deviation 47.0 36.4-46.3 fL RDW Coefficient of Variation 18.6 11.5-14.5 % Immature Granulocyte % (Auto) 0.1 % Immature Granulocyte # (Auto) 0.01 0.00-0.02 K/uL Platelet Estimate DECREASED Polychromasia 1+ Microcytosis PRESENT Prothrombin Time 13.6 9.0-12.0 SECONDS Prothromb Time International Ratio 1.3 0.9-1.1 Activated Partial Thromboplast Time 23.3 21.0-31.0 SECONDS Partial Thromboplastin Ratio 0.9 Sodium Level 126 136-145 mmol/L Potassium Level 4.7 3.5-5.1 mmol/L Chloride Level 88 98-107 mmol/L Carbon Dioxide Level 27 21-32 mmol/L Anion Gap 11.0 3-11 mmol/L Blood Urea Nitrogen 13 7-18 mg/dl Creatinine 1.40 0.60-1.40 mg/dl Est Creatinine Clear Calc Drug Dose 60.8 ml/min Estimated GFR () 62.4 Estimated GFR (Non- 53.8 BUN/Creatinine Ratio 9.0 10-20 Random Glucose 624 70-99 mg/dl Calcium Level 8.2 8.5-10.1 mg/dl Magnesium Level 2.2 1.8-2.4 mg/dl Total Bilirubin 1.7 0.2-1 mg/dl Direct Bilirubin 0.8 0-0.2 mg/dl Aspartate Amino Transf (AST/SGOT) 25 15-37 U/L Alanine Aminotransferase (ALT/SGPT) 22 12-78 U/L Alkaline Phosphatase 141 45-117 U/L Total Protein 6.4 6.4-8.2 gm/dl Albumin 2.8 3.4-5.0 gm/dl Lipase 84 73-393 U/L Beta-Hydroxybutyric Acid 2.24 0.2-2.81 mg/dL Urine Color YELLOW Urine Appearance CLEAR CLEAR Urine pH 6.5 4.5-7.5 Urine Specific [place] 1.031 1.000-1.030 Urine Protein NEG NEG Urine Glucose (UA) 3+ NEG Urine Ketones NEG NEG Urine Occult Blood NEG NEG Urine Nitrite NEG NEG Urine Bilirubin NEG NEG Urine Urobilinogen NEG NEG Urine Leukocyte Esterase NEG NEG Diagnostic Radiology HEAD CT IMPRESSION: No acute intracranial findings CXR IMPRESSION: Persistent left basilar atelectatic changes. No acute findings. ABD/PELVIS CT IMPRESSION: 1. Cirrhotic liver morphology with splenomegaly, moderate to large volume ascites, esophageal and upper abdominal varices 2. Cholelithiasis 3. Hiatal hernia 4. No evidence of bowel obstruction. No evidence of free air Impression Assessment and Plan HYPERGLYCEMIA - admit to med/surg - presenting with reports of increased urination and blood sugar found to be 624 - no signs of DKA - will start insulin gtt with transition to SQ insulin - patient reports blood sugars 100s-300s at home, ? accuracy of meter - hgb a1c 8.9 12/2015 PSEUDOHYPONATREMIA - due to hyperglycemia - corrected Na+ 139 DIARRHEA - check stool studies SORE THROAT - likely viral but will check strep swab BETANCOURT, ASCITES, ESOPHAGEAL VARICES - patient requires frequent paracentesis; most recent 02/22 for 5.2 liters - CT abd/pelvis showing moderate - large ascites, will check US - do not suspect SBP - afebrile, no leukocytosis; patient has abdominal pain however seems to be chronic - continue furosemide, spironolactone, Xifaxan, Lactulose, and propranolol HX SEIZURES - continue Keppra HYPOTHYROIDISM - continue levothyroxine ANEMIA/THROMBOCYTOPENIA - chronic due to underlying liver disease - no signs of bleeding - hgb and platelets at baseline HX PE S/P IVC FILTER DVT PROPHYLAXIS - SCDs due to anemia/thrombocytopenia CODE STATUS - Patient is a full code as per my discussion with him. DISPO - In my clinical judgment this beneficiary meets acute admission criteria, established by [facility], that includes being hospitalized through two midnights. Attending Addendum: The patient was seen and examined Presented with extreme weakness and tiredness No fever ,chills Has polyuria without dysuria O/E Not in any distress Hemodynamically stable Chest-clear to auscultate Heart-regular Abdomen-distended,soft,tender ,umbilical hernia Moderate ascites Extremities-1+ edema bilaterally Labs and Imaging studies were reviewed Polyuria likely due to high Blood Sugar Hyponatremia is spurious Agree with the assessment and plan Dr Priyank agustin VTE Prophylaxis VTE Risk Assessment Done? Y/N: Yes Risk Level: Moderate
[2016-03-13] MEDS ORDERED: GLUCOSE 40% GEL 15 GM TUBE PO PRN (19:45)
[2016-03-13] MEDS ORDERED: GLUCOSE 10 TABS/TUBE PO PRN (19:45)
[2016-03-13] MEDS ORDERED: GLUCAGON FOR INJ 1 MG VIAL SQ PRN (19:45)
[2016-03-13] MEDS ORDERED: DEXTROSE 50% 50 ML SYR IV PRN (19:45)
--- NOTE | 2016-03-13 19:59 | Pharmacy Progress Note ---
Glycemic Control Intl Consult Date of Service Mar 13, 2016. Scope Glycemic Pharmacist consulted by Emily SEE on 03/13/16 for glycemic control and to write orders per [facility] inpatient glycemic control protocol Objective Weight (Kilograms): 80.500 Accuchecks BSG (last 24hrs): Test 03/13/16 16:20 03/13/16 19:02 Random Glucose 624 mg/dl (70-99) Bedside Glucose 405 mg/dl (70-99) Laboratory Data (last 24hrs) Test 03/13/16 16:20 Anion Gap 11.0 mmol/L BUN/Creatinine Ratio 9.0 Blood Urea Nitrogen 13 mg/dl Creatinine 1.40 mg/dl Potassium Level 4.7 mmol/L Sodium Level 126 mmol/L White Blood Count 7.08 K/uL Red Blood Count 4.39 M/uL Hemoglobin 10.1 g/dL Hematocrit 30.5 % Mean Corpuscular Volume 69.5 fL Mean Corpuscular Hemoglobin 23.0 pg Mean Corpuscular Hemoglobin Concent 33.1 g/dl Platelet Count 62 K/uL Neutrophils (%) (Auto) 80.4 % Lymphocytes (%) (Auto) 9.0 % Monocytes (%) (Auto) 7.9 % Eosinophils (%) (Auto) 2.0 % Basophils (%) (Auto) 0.6 % Neutrophils # (Auto) 5.69 K/uL Lymphocytes # (Auto) 0.64 K/uL Monocytes # (Auto) 0.56 K/uL Eosinophils # (Auto) 0.14 K/uL Basophils # (Auto) 0.04 K/uL HbA1c 8.9% on 12/10/15 Recent Pertinent Medications Outpatient Anti-diabetic Regimen: * Lantus 28 units SQ HS * NovoLog 30 units SQ with meals Assessment & Plan ASSESSMENT: * 60 yo T2DM male known to pharmacy from previous admissions/glycemic consults. * Patient with severe hyperglycemia on admission - received 10 unit IV regular insulin bolus in ED and initiated on IV insulin infusion per protocol. Since patient is not in hyperglycemic crisis, will continue basal insulin with drip to facilitate transition to SQ basal bolus when appropriate. Pt administers Lantus in the evening therefore dosing tonight will keep him on his administration schedule and avoid losing Lantus steady state. IV insulin infusion will serve as "correctional" insulin for severe hyperglycemia. * Patient typically requires ~ 55-60 units of insulin per day with "adequate" control per previous admissions * BSGs somewhat labile and fluctuate throughout the day --> may a result of liver disease and altered glucose homeostasis * ADA & AACE recommend a goal blood sugar range 140-180 mg/dl for the majority of critically ill & non-critically ill patients. However, more stringent targets may be selected in individual cases. Will utilize a more stringent target of 110-140mg/dl based on patient age. PLAN FOR INPATIENT GLYCEMIC CONTROL: * Continuing IV insulin infusion per severe stress [facility] protocol * Goal Range 250 - 350 mg/dl * Will lower goal range when appropriate * Basal insulin with LANTUS 28 units SQ HS - first dose tonight. * Correctional Insulin with NOVOLOG per scale ACHS or Q6hrs while NPO * Goal Range: Low 140 mg/dL - High 180 mg/dL (when drip D/C) * Correction Factor: 15 mg/dL/unit (when drip D/C - drip will serve as correctional insulin) * Nutritional / Prandial insulin per carb ratio of 1 unit per 5 grams CHO consumed * Please note that the plan above was derived based on current level of insulin resistance and hospital stress. These recommendations are appropriate for inpatient admission only. Plan of care upon discharge will need to be reassessed to avoid potential outpatient hypo/hyperglycemia. Thank you.
[2016-03-13] MEDS ORDERED: INSULIN HUMAN REGULAR IV BOLUS 3 UNIT in SYRINGE 0 ML IV SCH (20:00)
[2016-03-13] MEDS: INSULIN REGULAR 250 UNITS in SODIUM CHLORIDE 0.9% 250ML 250 ML IV SCH ×3 (20:10→22:21)
[2016-03-13] MEDS: INSULIN ASPART 100 UNITS/ML 3 ML PEN SC SCH ×2 (21:00→23:42)
[2016-03-13 21:04] VITALS: BP 119/64; PULSE 73; TEMP 36.5; O2SAT 98
--- NOTE | 2016-03-13 22:25 | DIAGNOSTIC IMAGING REPORT ---
LIMITED ULTRASOUND FOR ASCITES EVALUATION CLINICAL HISTORY: Abdominal distention COMPARISON STUDY: 02/22/2016 FINDINGS: There is moderate 4 quadrant ascites. IMPRESSION: Moderate 4 quadrant ascites. Electronically signed by: Pawan Garner M.D. 03/13/2016 10:24 PM Dictated Date/Time: 03/13/2016 10:23 PM
[2016-03-13 22:32] VITALS: BP 107/71; PULSE 68
[2016-03-13] MEDS: LACTULOSE SYRUP 20 GM/30 ML UDC PO SCH (22:36)
[2016-03-13] MEDS: MAGNESIUM OXIDE 400 MG TAB PO SCH (22:37)
[2016-03-13] MEDS: PROPRANOLOL HCL 10 MG TAB PO SCH (22:37)
[2016-03-13] MEDS: PANTOprazole SOD 40 MG TAB PO SCH (22:37)
[2016-03-13] MEDS: FUROSEMIDE 40 MG TAB PO SCH (22:37)
[2016-03-13] MEDS: LEVETIRACETAM 500 MG TAB PO SCH (22:37)
[2016-03-13] MEDS: RIFAXIMIN TAB 550 MG TAB PO SCH (22:38)
[2016-03-13] MEDS: PREGABALIN 75 MG CAP PO SCH (22:42)
[2016-03-13] MEDS: INSULIN GLARGINE SOLOSTAR 100 UNITS/ML 3 ML PEN SC SCH (22:42)
[2016-03-13] MEDS: PYRIDOXINE HCL 50 MG TAB PO SCH (22:46)
[2016-03-13 23:37] VITALS: BP 121/68; PULSE 65; TEMP 36.8; O2SAT 95
[2016-03-13] MEDS: MoRPHine SULFATE 4 MG/ML 1 ML CARP\\VIAL IV PRN (23:54)
[2016-03-14] VITALS (17 sets, daily range): BP systolic 78–121; BP diastolic 45–77; PULSE 62–72; TEMP 36.5–37.6; O2SAT 93–99; Ht 182.9 cm; Wt 80.5 kg
[2016-03-14] MEDS ORDERED: INSULIN ASPART 100 UNITS/ML 3 ML PEN SC SCH (04:00)
[2016-03-14] MEDS: LEVOTHYROXINE 75 MCG TAB PO SCH (06:35)
[2016-03-14 06:37] LABS: MEAN CORPUSCULAR HGB CONC 32.8 g/dl (32-36)
[2016-03-14 07:13] LABS: BUN/CREATININE RATIO 10.7 (10-20); CALCIUM 7.9 mg/dl (8.5-10.1); CREATININE 1.1 mg/dl (0.60-1.40); POTASSIUM 3.7 mmol/L (3.5-5.1)
[2016-03-14 07:25] LABS: HEMATOCRIT 25.9 % (42-52); MEAN CELL VOLUME 69.1 fL (80-100); MEAN CORPUSCULAR HEMOGLOBIN 22.7 pg (25-34); RED BLOOD COUNT 3.75 M/uL (4.7-6.1); WHITE BLOOD COUNT 7.01 K/uL (4.8-10.8)
[2016-03-14 07:46] LABS: PLATELET COUNT 71 K/uL (130-400)
[2016-03-14] MEDS: INSULIN ASPART 100 UNITS/ML 3 ML PEN SC SCH ×5 (08:42→23:53)
[2016-03-14] MEDS: RIFAXIMIN TAB 550 MG TAB PO SCH ×2 (08:46→20:20)
[2016-03-14] MEDS: LACTULOSE SYRUP 20 GM/30 ML UDC PO SCH ×3 (08:46→20:21)
[2016-03-14] MEDS: PANTOprazole SOD 40 MG TAB PO SCH ×2 (08:46→20:20)
[2016-03-14] MEDS: LEVETIRACETAM 500 MG TAB PO SCH ×2 (08:46→20:20)
[2016-03-14] MEDS: ESCITALOPRAM OXALATE 10 MG TAB PO SCH (08:46)
[2016-03-14] MEDS: MAGNESIUM OXIDE 400 MG TAB PO SCH ×2 (08:47→20:20)
[2016-03-14] MEDS: PROPRANOLOL HCL 10 MG TAB PO SCH ×2 (08:47→20:20)
[2016-03-14] MEDS: SPIRONOLACTONE 100 MG TAB PO SCH (08:47)
[2016-03-14] MEDS: FUROSEMIDE 40 MG TAB PO SCH ×2 (08:48→17:59)
[2016-03-14] MEDS: PREGABALIN 75 MG CAP PO SCH ×3 (08:53→21:33)
[2016-03-14] MEDS ORDERED: INSULIN GLARGINE SOLOSTAR 100 UNITS/ML 3 ML PEN SC SCH (09:00)
[2016-03-14] MEDS: MoRPHine SULFATE 4 MG/ML 1 ML CARP\\VIAL IV PRN ×2 (09:11→20:37)
--- NOTE | 2016-03-14 11:48 | Pharmacy Progress Note ---
Glycemic Control: Progress Nt Date of Service Mar 14, 2016. Scope Glycemic Pharmacist consulted by Emily Peterson on 03/13/16 for glycemic control and to write orders per [facility] inpatient glycemic control protocol. Objective Accuchecks BSG (last 24hrs): Test 03/13/16 16:20 03/13/16 19:02 03/13/16 21:14 03/13/16 22:02 Random Glucose 624 mg/dl (70-99) Bedside Glucose 405 mg/dl (70-99) 328 mg/dl (70-99) 315 mg/dl (70-99) Test 03/13/16 23:11 03/14/16 00:13 03/14/16 01:13 03/14/16 01:57 Bedside Glucose 377 mg/dl (70-99) 339 mg/dl (70-99) 194 mg/dl (70-99) 156 mg/dl (70-99) Test 03/14/16 02:15 03/14/16 04:58 03/14/16 06:00 03/14/16 07:26 Bedside Glucose 180 mg/dl (70-99) 207 mg/dl (70-99) 223 mg/dl (70-99) Random Glucose 205 mg/dl (70-99) Test 03/14/16 11:31 Bedside Glucose 225 mg/dl (70-99) Laboratory Data (last 24hrs) Test 03/13/16 16:20 03/14/16 06:00 Anion Gap 11.0 mmol/L 8.0 mmol/L BUN/Creatinine Ratio 9.0 10.7 Blood Urea Nitrogen 13 mg/dl 12 mg/dl Creatinine 1.40 mg/dl 1.10 mg/dl Potassium Level 4.7 mmol/L 3.7 mmol/L Sodium Level 126 mmol/L 133 mmol/L White Blood Count 7.08 K/uL 7.01 K/uL Red Blood Count 4.39 M/uL Hemoglobin 10.1 g/dL Hematocrit 30.5 % Mean Corpuscular Volume 69.5 fL Mean Corpuscular Hemoglobin 23.0 pg Mean Corpuscular Hemoglobin Concent 33.1 g/dl Platelet Count 62 K/uL Neutrophils (%) (Auto) 80.4 % Lymphocytes (%) (Auto) 9.0 % Monocytes (%) (Auto) 7.9 % Eosinophils (%) (Auto) 2.0 % Basophils (%) (Auto) 0.6 % Neutrophils # (Auto) 5.69 K/uL Lymphocytes # (Auto) 0.64 K/uL Monocytes # (Auto) 0.56 K/uL Eosinophils # (Auto) 0.14 K/uL Basophils # (Auto) 0.04 K/uL Recent Pertinent Medications Outpatient Anti-diabetic Regimen: * Lantus 28 units SQ HS * NovoLog 30 units SQ with meals * A1c = 8.9% 12/10/15 * estimated average glucose ~200mg/dL The patient is currently receiving: * IV insulin gtt until ~03:00 03/14/16 morning * Basal insulin: Lantus 28 units every 24 hours * Correctional Insulin: NovoLog Correction per scale AC+HS Goal Range: Low 140 mg/dL - High 180 mg/dL Correction Factor: 15 mg/dL/unit * Prandial insulin: Per carb ratio of 1 unit per 5 grams CHO consumed Risk Factors for Insulin Resistance: * Diet: T2DM/Low Na Assessment & Plan ASSESSMENT: * 60 yo T2DM male known to pharmacy from previous admissions/glycemic consults. 03/13/16 * Patient with severe hyperglycemia on admission - received 10 unit IV regular insulin bolus in ED and initiated on IV insulin infusion per protocol. Since patient is not in hyperglycemic crisis, will continue basal insulin with drip to facilitate transition to SQ basal bolus when appropriate. Pt administers Lantus in the evening therefore dosing tonight will keep him on his administration schedule and avoid losing Lantus steady state. IV insulin infusion will serve as "correctional" insulin for severe hyperglycemia. * Patient typically requires ~ 55-60 units of insulin per day with "adequate" control per previous admissions * BSGs somewhat labile and fluctuate throughout the day --> may a result of liver disease and altered glucose homeostasis 03/14/16 * IV insulin infusion stopped around 03:00 this AM when BSGs a~150mg/dL * NovoLog AC/HS started around 04:00 with AC and HS checks following - Tighten NovoLog parameters based on recent admission - Use ADA recommended goal range. * Lantus given last night likely aided in transition off of insulin infusion * give an additional dose of Lantus 5 units SQ x1 this AM as patient may show higher insulin resistance directly following IV insulin administration * ADA & AACE recommend a goal blood sugar range 140-180 mg/dl for the majority of critically ill & non-critically ill patients. However, more stringent targets may be selected in individual cases. PLAN FOR INPATIENT GLYCEMIC CONTROL: * Continue Lantus 28 units SQ HS * Additional Lantus dose of 5 units SQ x1 this AM * Correctional Insulin with NOVOLOG per scale ACHS or Q6hrs while NPO * Add overnight Accu-check while patient is 24 hours post IV insulin infusion * Goal Range: Low 140 mg/dL - High 180 mg/dL * Correction Factor: 12 mg/dL/unit * Carb ratio of 1 unit per 4 grams CHO consumed RECOMMENDATIONS FOR DISCHARGE: * pending * Please note that the plan above was derived based on current level of insulin resistance and hospital stress. These recommendations are appropriate for inpatient admission only. Plan of care upon discharge will need to be reassessed to avoid potential outpatient hypo/hyperglycemia. Thank you.
[2016-03-14] MEDS ORDERED: MAGNESIUM HYDROXIDE SUSP 30 ML UDC PO PRN (12:30)
--- NOTE | 2016-03-14 12:41 | Gastrointestinal Consultation ---
Gastrointestinal Consultation Date of Consultation: Mar 14, 2016 Attending Physician: Dr. Hanks; consult from Rose Peterson NP Consulting Physician: Dr. Nielson Reason for Consultation: ascites, BETANCOURT History of Present Illness Patient is a 60 year old male pt of Dr. Liu with a hx of DM-2, BETANCOURT cirrhosis complicated by esophageal varices, prior hepatic encephalopathy BETANCOURT, Dyslipidemia, Portal Hypertension, History PE, S/P IVC filter placement, Anxiety /Depression . He presented to the ED yesterday with c/o weakness, diarrhea and enlarging abdominal girth. GI is consulted for BETANCOURT cirrhosis and ascites. Most recent imaging was a CT on 02/21/16 with cirrhosis, evidence of portal hypertension, splenomegaly, ascites and cholelithiasis. Most recent tap was 02/21: 152 WBC's 17.5% neutrophils. He is managed in GI clinic by Dr. Culver. His outpatient GI meds are: Lasix 40mg BID, Spironolactone 100mg daily, Lactulose 20grams BID, Protonix 40mg BID, Xifaxin 550mg BID On arrival BS was elevated at 625. It is now 205. Hb was 10.5; Cr on arrival was 1.4 and is now 1.1 which is his baseline. The patient is seen and examined while he is resting in bed. He is awake, alert, oriented. He denies any recent confusion, jaundice, nausea/vomiting, melena or hematochezia. He is mildly hypotensive this morning at 88/47 but is otherwise hemodynamically stable w/o fever or leukocytosis. He has large but not taut ascites. Past Medical/Surgical History Medical Problems: (1) Acute hyperglycemia Status: Acute (2) Ambulatory dysfunction Status: Acute (3) Ambulatory dysfunction Status: Acute (4) Anemia Status: Acute (5) Anemia Status: Acute (6) Anemia Status: Acute (7) Ascites Status: Acute (8) Ascites Status: Acute (9) Ascites Status: Acute (10) Ascites Status: Acute (11) Ascites Status: Acute (12) Chest pain Status: Acute (13) Chronic low back pain Status: Acute (14) Cirrhosis Status: Acute (15) Cirrhosis of liver Status: Acute (16) Contusion of left foot Status: Acute (17) Dyspnea Status: Acute (18) HHNC (hyperglycemic hyperosmolar nonketotic coma) Status: Acute (19) Hyperglycemia Status: Acute (20) Hypoglycemia Status: Acute (21) Hypoglycemia Status: Acute (22) Muscle weakness Status: Acute (23) Nausea, vomiting, and diarrhea Status: Acute (24) Thrombocytopenia Status: Acute Past Medical History: 1. Cirrhosis complicated by EV, PHG, ascites, prior hepatic encephalopathy. 2. DM, insulin dependant, diabetic neuropathy 3. DVT/PE, S/P IVC filter 4. Pneumonia 5. Hyperlipidemia 6. Hypothyroidism 7. Seizure disorder Past Surgical History: 1. Multiple prior paracentesis 2. Cervical spine fusion 3. Lumbar spine fusion 4. Tonsillectomy and adenoidectomy 5. Orthoscopic knee surgery 6. IVC filter placement 7. Most recent EGD 12/2014 Dr. Culver: grade II non bleeding esophageal varices , portal hypertensive gastropathy. Family History FH: CAD (coronary artery disease) FATHER FH: breast cancer MOTHER Social History Smoking Status: Never Smoker Alcohol Use: none Housing Status: lives alone Allergies Coded Allergies: NSAIDs (Verified Allergy, Severe, DUE TO LIVER DISEAS, 03/13/16) Penicillins (Verified Allergy, Severe, JOINT SWELLING AND FEVER, 03/13/16) Levofloxacin (Verified Allergy, Mild, RASH, 03/13/16) pt developed erythema at site of IV injection with itching Vancomycin (Verified Allergy, Mild, HIVES, 03/13/16) HIVES Acetaminophen (Unverified Allergy, Unknown, unknown, 03/13/16) Tramadol (Verified Allergy, Unknown, NOT TO TAKE WITH KEPPRA DUE TO SEIZURE RISK, 03/13/16) Current Medications Home Meds and Scripts Medications Dose Route/Sig Max Daily Dose Days Date Category Dose Instructions Novolog Penfill (Insulin Aspart) 100 Unit/Ml Inj SQ TIDM 03/13/16 Reported via SSI Lactulose 20 Gm/30 Ml Syrp 20 Gm PO TID 30 03/13/16 Rx Lantus (Insulin Glargine) 100 Unit/Ml Inj 28 Units SC HS 03/13/16 Reported Levetiracetam (Levetiractam) 500 Mg Tab 500 Mg PO AMHS 03/13/16 Reported Dilaudid (Hydromorphone Hcl) 4 Mg Tab 1 Tab PO TID PRN 30 12/10/15 Reported Aldactone (Spironolactone) 100 Mg Tab 1 Tab PO DAILY 30 12/10/15 Reported Inderal (Propranolol HCl) 10 Mg Tab 10 Mg PO BID 06/04/15 Reported Vitamin B-6 (Pyridoxine Hcl) 25 Mg Tab 25 Mg PO HS 06/04/15 Reported Aristocort 0.1% (Triamcinolone Acetonide) Cr 1 Appln TOP BID 06/04/15 Reported USE TO AFFECTED AREA FOR DERMATITIS Synthroid (Levothyroxine Sodium) 75 Mcg Tab 75 Mcg PO DAILY 05/07/15 Reported Lyrica (Pregabalin) 75 Mg Cap 75 Mg PO TID 05/07/15 Reported Zofran Odt (Ondansetron HCl) 4 Mg Tab 4 Mg SL Q6H PRN 05/07/15 Reported Lasix (Furosemide) 40 Mg Tab 40 Mg PO BID 12/24/14 Reported Lexapro (Escitalopram Oxalate) 10 Mg Tab 10 Mg PO DAILY 10/30/14 Reported Protonix (Pantoprazole) 40 Mg Tab 40 Mg PO BID 08/04/14 Reported Xifaxan (Rifaximin) 550 Mg Tab 550 Mg PO AMHS 05/20/13 Reported ONE AT BREAKFAST AND ONE AT SUPPER. Mag-Ox (Magnesium Oxide) 400 Mg Tab 400 Mg PO BID 09/29/11 Reported Review of Systems Constitutional: No chills, No fever, No sweats, No weakness, No weight loss Eyes: No eye pain, No redness ENT: No pain on swallowing, No sore throat, No trouble swallowing Respiratory: No cough, No dyspnea on exertion, No shortness of breath, No wheezing Cardiac: No chest pain, No edema, No palpitations Abdomen: + diarrhea, + pain (diffuse, from ascites), + problem reported ( enlarging girth), + see HPI Neuro: No balance problems, No memory loss, No numbness/tingling, No vertigo, No weakness Psych: No anxiety, No depression symptoms, No insomnia Heme: No abnormal bleeding/bruising, No night sweats Endo: No excessive thirst, No excessive urination Skin: No itch, No jaundice, No new/changing skin lesions, No rash Physical Exam Date Time Temp Pulse Resp B/P Pulse Ox O2 Delivery O2 Flow Rate FiO2 03/14/16 11:21 36.6 63 16 90/57 97 Room Air 03/14/16 08:00 96 Room Air 03/14/16 07:46 36.5 63 18 88/47 96 Room Air 03/14/16 07:37 78/45 03/14/16 05:58 36.8 65 20 121/68 Room Air 03/13/16 23:37 36.8 65 20 121/68 95 Room Air 03/13/16 22:32 68 107/71 03/13/16 21:04 36.5 73 16 119/64 98 Room Air 03/13/16 20:11 68 18 127/85 96 03/13/16 19:32 72 03/13/16 18:42 70 16 115/69 96 Room Air 03/13/16 17:29 68 18 115/69 96 03/13/16 15:34 67 03/13/16 15:29 36.9 77 18 126/62 94 Room Air General Appearance: no apparent distress Eyes: normal inspection, EOMI Neck: supple, no adenopathy, thyroid normal Respiratory/Chest: chest non-tender, lungs clear, normal breath sounds, no accessory muscle use Cardiovascular: regular rate, rhythm, no JVD, no murmur Abdomen: normal bowel sounds, no organomegaly, + distended (with ascites), + tenderness (diffusely) Extremities: normal capillary refill, + pedal edema (1/2+ pitting edema to mid shins) Neurologic/Psych: alert, normal mood/affect, oriented x 3 Skin: normal color, no jaundice, warm/dry, no rash Laboratory Results Last 24 Hours Test 03/13/16 16:20 03/13/16 16:45 03/13/16 19:02 03/13/16 21:14 White Blood Count 7.08 K/uL Red Blood Count 4.39 M/uL Hemoglobin 10.1 g/dL Hematocrit 30.5 % Mean Corpuscular Volume 69.5 fL Mean Corpuscular Hemoglobin 23.0 pg Mean Corpuscular Hemoglobin Concent 33.1 g/dl Platelet Count 62 K/uL Neutrophils (%) (Auto) 80.4 % Lymphocytes (%) (Auto) 9.0 % Monocytes (%) (Auto) 7.9 % Eosinophils (%) (Auto) 2.0 % Basophils (%) (Auto) 0.6 % Neutrophils # (Auto) 5.69 K/uL Lymphocytes # (Auto) 0.64 K/uL Monocytes # (Auto) 0.56 K/uL Eosinophils # (Auto) 0.14 K/uL Basophils # (Auto) 0.04 K/uL RDW Standard Deviation 47.0 fL RDW Coefficient of Variation 18.6 % Immature Granulocyte % (Auto) 0.1 % Immature Granulocyte # (Auto) 0.01 K/uL Platelet Estimate DECREASED Polychromasia 1+ Microcytosis PRESENT Prothrombin Time 13.6 SECONDS Prothromb Time International Ratio 1.3 Activated Partial Thromboplast Time 23.3 SECONDS Partial Thromboplastin Ratio 0.9 Sodium Level 126 mmol/L Potassium Level 4.7 mmol/L Chloride Level 88 mmol/L Carbon Dioxide Level 27 mmol/L Anion Gap 11.0 mmol/L Blood Urea Nitrogen 13 mg/dl Creatinine 1.40 mg/dl Est Creatinine Clear Calc Drug Dose 60.8 ml/min Estimated GFR () 62.4 Estimated GFR (Non- 53.8 BUN/Creatinine Ratio 9.0 Random Glucose 624 mg/dl Calcium Level 8.2 mg/dl Magnesium Level 2.2 mg/dl Total Bilirubin 1.7 mg/dl Direct Bilirubin 0.8 mg/dl Aspartate Amino Transf (AST/SGOT) 25 U/L Alanine Aminotransferase (ALT/SGPT) 22 U/L Alkaline Phosphatase 141 U/L Total Protein 6.4 gm/dl Albumin 2.8 gm/dl Lipase 84 U/L Beta-Hydroxybutyric Acid 2.24 mg/dL Urine Color YELLOW Urine Appearance CLEAR Urine pH 6.5 Urine Specific [place] 1.031 Urine Protein NEG Urine Glucose (UA) 3+ Urine Ketones NEG Urine Occult Blood NEG Urine Nitrite NEG Urine Bilirubin NEG Urine Urobilinogen NEG Urine Leukocyte Esterase NEG Bedside Glucose 405 mg/dl 328 mg/dl Test 03/13/16 22:02 03/13/16 23:11 03/14/16 00:13 03/14/16 01:13 Bedside Glucose 315 mg/dl 377 mg/dl 339 mg/dl 194 mg/dl Test 03/14/16 01:57 03/14/16 02:15 03/14/16 04:58 03/14/16 06:00 Bedside Glucose 156 mg/dl 180 mg/dl 207 mg/dl White Blood Count 7.01 K/uL Red Blood Count 3.75 M/uL Hemoglobin 8.5 g/dL Hematocrit 25.9 % Mean Corpuscular Volume 69.1 fL Mean Corpuscular Hemoglobin 22.7 pg Mean Corpuscular Hemoglobin Concent 32.8 g/dl RDW Standard Deviation 48.2 fL RDW Coefficient of Variation 19.0 % Platelet Count 71 K/uL Sodium Level 133 mmol/L Potassium Level 3.7 mmol/L Chloride Level 96 mmol/L Carbon Dioxide Level 29 mmol/L Anion Gap 8.0 mmol/L Blood Urea Nitrogen 12 mg/dl Creatinine 1.10 mg/dl Est Creatinine Clear Calc Drug Dose 77.4 ml/min Estimated GFR () 83.5 Estimated GFR (Non- 72.1 BUN/Creatinine Ratio 10.7 Random Glucose 205 mg/dl Calcium Level 7.9 mg/dl Total Bilirubin 1.5 mg/dl Direct Bilirubin 0.7 mg/dl Aspartate Amino Transf (AST/SGOT) 22 U/L Alanine Aminotransferase (ALT/SGPT) 18 U/L Alkaline Phosphatase 114 U/L Total Protein 5.2 gm/dl Albumin 2.2 gm/dl Test 03/14/16 07:26 03/14/16 11:31 Bedside Glucose 223 mg/dl 225 mg/dl Impression Patient is a 60 year old male with BETANCOURT cirrhosis, admitted with hyperglycemia. He appears to be in mild fluid overload with large ascites and 1+ bilateral lower leg edema. Plan 1. US guided large volume paracentesis with Albumin before and after. 2. Discussed low salt diet recommendations with pt who denies any recent salt intake. 3. Management of hypergylcemia by primary hospitalist. 4. 2 gram sodium diet. ATTG ADD: I interviewed and examined pt, reviewed chart and labs. Pt with h/o chronic abdominal pain, paracentesis dependent ascites, s/p recent admission for abd pain and incr abd girth, now admit from PCP clinic for the same. CT on admission was unremarkable. He is s/p LVP with improvement in his pain; fluid studies do not show SBP. Would consider d/c of beta blockade given recurrent ascites. WIll discuss possible TIPS referral with primary water vessel captain. Please resume prior dose of diuretics. No further recs - will sign off.
[2016-03-14] MEDS: ALBUMIN HUMAN 25% 12.5 GM/50 ML VIAL IV SCH ×5 (13:05→17:03)
[2016-03-14] MEDS: HYDROmorphone HCL 2 MG TAB PO PRN (14:29)
[2016-03-14] MEDS: ONDANSETRON INJ 2 MG/ML 2 ML VIAL IV PRN (16:30)
--- NOTE | 2016-03-14 16:33 | DIAGNOSTIC IMAGING REPORT ---
PARACENTESIS UNDER ULTRASOUND GUIDANCE CLINICAL HISTORY: Abdominal ascites. PROCEDURE: The risks, benefits, and alternatives to the procedure were discussed with the patient who voiced understanding. Written informed consent was obtained. Following real-time ultrasound localization of a suitable pocket of fluid in the left lower quadrant, the abdomen was prepped and draped in the usual sterile fashion. The skin and soft tissues were anesthetized with 1% lidocaine. The sheathed paracentesis was inserted and approximately 6.5 liters of straw-colored ascitic fluid was removed by vacuum suction. The procedure was well tolerated and without immediate complication. The patient left the department in satisfactory condition. IMPRESSION: Successful ultrasound-guided paracentesis with removal of approximately 6.5 liters of ascitic fluid. Electronically signed by: Leonardo De La Fuente M.D. 03/14/2016 4:17 PM Dictated Date/Time: 03/14/2016 4:15 PM
--- NOTE | 2016-03-14 16:37 | Progress Note ---
Internal Med Progress Note Date of Service: Mar 14, 2016. Provider Documentation: SUBJECTIVE: The patient was seen and examined Feels a little better BP was noted to be low this AM Denies asif other symptoms OBJECTIVE: Vital Signs-as noted below Exam: General-No distress at rest Eyes-normal ENT-normal Neck-supple Lungs-Clear to ausucltate bilaterally Heart-Regular,no murmur appreciated Abdomen-Distended,firm ,tender with Umbilical hernia.Moderate ascites Extremities-1+ edema bilaterally Neuro-AAOx3 Generally weak Lab data as noted below. ASSESSMENT & PLAN: HYPERGLYCEMIA - presented with reports of increased urination and blood sugar found to be 624 - no signs of DKA on [id number] -started on insulin drip with transition to SQ insulin-and pharmacy consult - patient reports blood sugars 100s-300s at home, - hgb a1c 8.9 12/2015-will recheck -Clinically better this AM PSEUDOHYPONATREMIA - due to hyperglycemia - corrected Na+ 139 DIARRHEA-resolved - check stool studies SORE THROAT - likely viral but will check strep swab -much better today no antibiotic now BETANCOURT, ASCITES, ESOPHAGEAL VARICES - patient requires frequent paracentesis; most recent 02/22 for 5.2 liters - CT abd/pelvis showing moderate - large ascites, will check US - do not suspect SBP - afebrile, no leukocytosis; patient has abdominal pain however seems to be chronic - continue furosemide, spironolactone, Xifaxan, Lactulose, and propranolol -Appreciate GI input S/P Paracentesis -await test results HX SEIZURES - continue Keppra HYPOTHYROIDISM - continue levothyroxine ANEMIA/THROMBOCYTOPENIA - chronic due to underlying liver disease - no signs of bleeding - hgb and platelets at baseline HX PE S/P IVC FILTER DVT PROPHYLAXIS - SCDs due to anemia/thrombocytopenia CODE STATUS - Patient is a full code as per my discussion with him. DISPO Awaited Vital Signs: Date Time Temp Pulse Resp B/P Pulse Ox O2 Delivery O2 Flow Rate FiO2 03/14/16 15:33 36.5 66 18 98/62 96 Room Air 03/14/16 13:00 36.5 65 20 95/61 93 Room Air 03/14/16 12:00 93 Room Air 03/14/16 11:21 36.6 63 16 90/57 97 Room Air 03/14/16 08:00 96 Room Air 2/7/17 07:46 36.5 63 18 88/47 96 Room Air 03/14/16 07:37 78/45 03/14/16 05:58 36.8 65 20 121/68 Room Air 03/13/16 23:37 36.8 65 20 121/68 95 Room Air 03/13/16 22:32 68 107/71 03/13/16 21:04 36.5 73 16 119/64 98 Room Air 03/13/16 20:11 68 18 127/85 96 03/13/16 19:32 72 03/13/16 18:42 70 16 115/69 96 Room Air 03/13/16 17:29 68 18 115/69 96 Lab Results: Results Past 24 Hours Test 03/13/16 16:45 03/13/16 19:02 03/13/16 21:14 03/13/16 22:02 Range/Units Urine Color YELLOW Urine Appearance CLEAR CLEAR Urine pH 6.5 4.5-7.5 Urine Specific [place] 1.031 1.000-1.030 Urine Protein NEG NEG Urine Glucose (UA) 3+ NEG Urine Ketones NEG NEG Urine Occult Blood NEG NEG Urine Nitrite NEG NEG Urine Bilirubin NEG NEG Urine Urobilinogen NEG NEG Urine Leukocyte Esterase NEG NEG Bedside Glucose 405 328 315 70-99 mg/dl Test 03/13/16 23:11 03/14/16 00:13 03/14/16 01:13 03/14/16 01:57 Range/Units Bedside Glucose 377 339 194 156 70-99 mg/dl Test 03/14/16 02:15 03/14/16 04:58 03/14/16 06:00 03/14/16 07:26 Range/Units Bedside Glucose 180 207 223 70-99 mg/dl White Blood Count 7.01 4.8-10.8 K/uL Red Blood Count 3.75 4.7-6.1 M/uL Hemoglobin 8.5 14.0-18.0 g/dL Hematocrit 25.9 42-52 % Mean Corpuscular Volume 69.1 80-100 fL Mean Corpuscular Hemoglobin 22.7 25-34 pg Mean Corpuscular Hemoglobin Concent 32.8 32-36 g/dl RDW Standard Deviation 48.2 36.4-46.3 fL RDW Coefficient of Variation 19.0 11.5-14.5 % Platelet Count 71 130-400 K/uL Sodium Level 133 136-145 mmol/L Potassium Level 3.7 3.5-5.1 mmol/L Chloride Level 96 98-107 mmol/L Carbon Dioxide Level 29 21-32 mmol/L Anion Gap 8.0 3-11 mmol/L Blood Urea Nitrogen 12 7-18 mg/dl Creatinine 1.10 0.60-1.40 mg/dl Est Creatinine Clear Calc Drug Dose 77.4 ml/min Estimated GFR () 83.5 Estimated GFR (Non- 72.1 BUN/Creatinine Ratio 10.7 10-20 Random Glucose 205 70-99 mg/dl Calcium Level 7.9 8.5-10.1 mg/dl Total Bilirubin 1.5 0.2-1 mg/dl Direct Bilirubin 0.7 0-0.2 mg/dl Aspartate Amino Transf (AST/SGOT) 22 15-37 U/L Alanine Aminotransferase (ALT/SGPT) 18 12-78 U/L Alkaline Phosphatase 114 45-117 U/L Total Protein 5.2 6.4-8.2 gm/dl Albumin 2.2 3.4-5.0 gm/dl Test 03/14/16 11:31 Range/Units Bedside Glucose 225 70-99 mg/dl Microbiology Results 03/14/16 Shiga Toxin Test, Received Pending 03/14/16 Stool Culture, Received Pending
[2016-03-14 18:30] LABS: PERIT FL WBC 113 /uL (0-300); PERITONEAL FLUID RBC < 3000 /uL
[2016-03-14] MEDS: PYRIDOXINE HCL 50 MG TAB PO SCH (20:20)
[2016-03-14] MEDS: INSULIN GLARGINE SOLOSTAR 100 UNITS/ML 3 ML PEN SC SCH (20:24)
[2016-03-15] MEDS: HYDROmorphone HCL 2 MG TAB PO PRN ×3 (03:55→21:35)
[2016-03-15] MEDS: INSULIN ASPART 100 UNITS/ML 3 ML PEN SC SCH ×5 (04:26→21:23)
[2016-03-15] MEDS: LEVOTHYROXINE 75 MCG TAB PO SCH (06:21)
[2016-03-15] MEDS: ONDANSETRON INJ 2 MG/ML 2 ML VIAL IV PRN ×2 (06:21→15:17)
[2016-03-15 07:43] VITALS: BP 101/58; PULSE 69; TEMP 36.5; O2SAT 96
[2016-03-15] MEDS: ESCITALOPRAM OXALATE 10 MG TAB PO SCH (08:33)
[2016-03-15] MEDS: PANTOprazole SOD 40 MG TAB PO SCH ×2 (08:33→21:17)
[2016-03-15] MEDS: RIFAXIMIN TAB 550 MG TAB PO SCH ×2 (08:33→21:16)
[2016-03-15] MEDS: SPIRONOLACTONE 100 MG TAB PO SCH (08:33)
[2016-03-15] MEDS: PROPRANOLOL HCL 10 MG TAB PO SCH ×2 (08:33→21:16)
[2016-03-15] MEDS: MAGNESIUM OXIDE 400 MG TAB PO SCH ×2 (08:34→21:18)
[2016-03-15] MEDS: FUROSEMIDE 40 MG TAB PO SCH ×2 (08:35→18:22)
[2016-03-15] MEDS: PREGABALIN 75 MG CAP PO SCH ×3 (08:35→21:34)
[2016-03-15] MEDS: LACTULOSE SYRUP 20 GM/30 ML UDC PO SCH ×3 (08:35→21:17)
[2016-03-15] MEDS: LEVETIRACETAM 500 MG TAB PO SCH ×2 (08:35→21:18)
[2016-03-15 11:29] VITALS: BP 96/61; PULSE 64; TEMP 36.5; O2SAT 94
[2016-03-15] MEDS: MoRPHine SULFATE 4 MG/ML 1 ML CARP\\VIAL IV PRN ×2 (13:04→18:50)
--- NOTE | 2016-03-15 14:08 | Progress Note ---
Internal Med Progress Note Date of Service: Mar 15, 2016. Provider Documentation: SUBJECTIVE: The patient was seen and examined Feels a little better BP was noted to be low this AM Denies any other symptoms Generally weak and lethargic PT/OT requested OBJECTIVE: Vital Signs-as noted below Exam: General-No distress at rest Eyes-normal ENT-normal Neck-supple Lungs-Clear to ausucltate bilaterally Heart-Regular,no murmur appreciated Abdomen-Mildly Distended,soft ,tender with Umbilical hernia.Moderate ascites Extremities-1+ edema bilaterally Neuro-AAOx3 Generally weak Lab data as noted below. ASSESSMENT & PLAN: HYPERGLYCEMIA - presented with reports of increased urination and blood sugar found to be 624 - no signs of DKA on [id number] -started on insulin drip with transition to SQ insulin-and pharmacy consult - patient reports blood sugars 100s-300s at home, - hgb a1c 8.9 12/2015-will recheck -Clinically better this AM -Blood sugar seems to be controlled -Appreciate Pharmacy input and recommendation PSEUDOHYPONATREMIA - due to hyperglycemia - corrected Na+ 139 -recheck in AM DIARRHEA-resolved - check stool studies SORE THROAT - likely viral but will check strep swab -much better today -Throat C/S pending -Advised Warm salt water gurgle BETANCOURT, ASCITES, ESOPHAGEAL VARICES - patient requires frequent paracentesis; most recent 02/22 for 5.2 liters - CT abd/pelvis showing moderate - large ascites, will check US - do not suspect SBP - afebrile, no leukocytosis; patient has abdominal pain however seems to be chronic - continue furosemide, spironolactone, Xifaxan, Lactulose, and propranolol -Appreciate GI input S/P Paracentesis -no SBP HX SEIZURES - continue Keppra HYPOTHYROIDISM - continue levothyroxine ANEMIA/THROMBOCYTOPENIA - chronic due to underlying liver disease - no signs of bleeding - hgb and platelets at baseline HX PE S/P IVC FILTER DVT PROPHYLAXIS - SCDs due to anemia/thrombocytopenia CODE STATUS - Patient is a full code as per my discussion with him. DISPO PT/OT evaluation Likely discharge tomorrow Vital Signs: Date Time Temp Pulse Resp B/P Pulse Ox O2 Delivery O2 Flow Rate FiO2 03/15/16 11:29 36.5 64 18 96/61 94 03/15/16 09:22 Room Air 03/15/16 07:43 36.5 69 20 101/58 96 03/15/16 00:00 Room Air 03/14/16 23:36 36.6 69 20 96/63 96 Room Air 03/14/16 20:00 Room Air 03/14/16 19:07 36.6 72 18 102/62 95 Room Air 03/14/16 18:31 36.6 64 20 99/63 93 03/14/16 18:06 36.6 62 20 98/63 94 03/14/16 17:31 36.5 63 18 106/69 99 Room Air 03/14/16 17:10 36.6 68 20 120/77 98 03/14/16 16:56 36.5 64 20 100/65 94 03/14/16 16:39 37.6 68 20 105/69 96 Room Air 03/14/16 16:00 96 Room Air 03/14/16 15:33 36.5 66 18 98/62 96 Room Air Lab Results: Results Past 24 Hours Test 03/14/16 16:24 03/14/16 20:10 03/14/16 23:43 03/15/16 04:23 Range/Units Bedside Glucose 289 277 152 193 70-99 mg/dl Test 03/15/16 07:04 03/15/16 11:45 Range/Units Bedside Glucose 178 260 70-99 mg/dl Microbiology Results 03/15/16 Throat Culture, Received Pending
--- NOTE | 2016-03-15 14:16 | Pharmacy Progress Note ---
Glycemic Control: Progress Nt Date of Service Mar 15, 2016. Scope Glycemic Pharmacist consulted by Emily Peterson on 03/13/16 for glycemic control and to write orders per [facility] inpatient glycemic control protocol. Objective Accuchecks BSG (last 24hrs): Test 03/14/16 16:24 03/14/16 20:10 03/14/16 23:43 03/15/16 04:23 Bedside Glucose 289 mg/dl (70-99) 277 mg/dl (70-99) 152 mg/dl (70-99) 193 mg/dl (70-99) Test 03/15/16 07:04 03/15/16 11:45 Bedside Glucose 178 mg/dl (70-99) 260 mg/dl (70-99) Recent Pertinent Medications Outpatient Anti-diabetic Regimen: * Lantus 28 units SQ HS * NovoLog 30 units SQ with meals * A1c = 8.9% 12/10/15 * estimated average glucose ~200mg/dL The patient is currently receiving: * IV insulin gtt until ~03:00 03/14/16 morning * Basal insulin: Lantus 28 units every 24 hours * Correctional Insulin: NovoLog Correction per scale AC+HS Goal Range: Low 140 mg/dL - High 180 mg/dL Correction Factor: 12 mg/dL/unit * Prandial insulin: Per carb ratio of 1 unit per 4 grams CHO consumed Risk Factors for Insulin Resistance: * Diet: T2DM/Low Na Assessment & Plan ASSESSMENT: * 60 yo T2DM male known to pharmacy from previous admissions/glycemic consults. 03/13/16 * Patient with severe hyperglycemia on admission - received 10 unit IV regular insulin bolus in ED and initiated on IV insulin infusion per protocol. Since patient is not in hyperglycemic crisis, will continue basal insulin with drip to facilitate transition to SQ basal bolus when appropriate. Pt administers Lantus in the evening therefore dosing tonight will keep him on his administration schedule and avoid losing Lantus steady state. IV insulin infusion will serve as "correctional" insulin for severe hyperglycemia. * Patient typically requires ~ 55-60 units of insulin per day with "adequate" control per previous admissions * BSGs somewhat labile and fluctuate throughout the day --> may a result of liver disease and altered glucose homeostasis 03/14/16 * IV insulin infusion stopped around 03:00 this AM when BSGs a~150mg/dL * NovoLog AC/HS started around 04:00 with AC and HS checks following - Tighten NovoLog parameters based on recent admission - Use ADA recommended goal range. * Lantus given last night likely aided in transition off of insulin infusion * give an additional dose of Lantus 5 units SQ x1 this AM as patient may show higher insulin resistance directly following IV insulin administration 03/15/16 * BSGs much improved over the last 24 hours after transitioning off of the insulin gtt * Historically, a more aggressive correction factor and carb ratio have caused hypoglycemia, so I hesitate to further change parameters * Continue NovoLog parameters at this time, may consider change if BSGs elevated again when we assess tomorrow as Mr. Broderick may continue to have insulin resistance related to the IV insulin infusion today. * Additional Lantus given on 03/14 while transitioning off the gtt * Increase Lantus to 30 units SQ q PM - this dose will be easier to draw up and may help with his A1c of 8.9% ( home regimen weighted more toward prandial dosing) * A1c of 8.9% may be near goal for Mr. Broderick with his comorbidities based on the Elements of Diabetes Care Scoring Scale (Goal 7.6-8%) * ADA & AACE recommend a goal blood sugar range 140-180 mg/dl for the majority of critically ill & non-critically ill patients. However, more stringent targets may be selected in individual cases. PLAN FOR INPATIENT GLYCEMIC CONTROL: * Continue Lantus 30 units SQ HS * Correctional Insulin with NOVOLOG per scale ACHS or Q6hrs while NPO * Goal Range: Low 140 mg/dL - High 180 mg/dL * Correction Factor: 12 mg/dL/unit * Carb ratio of 1 unit per 4 grams CHO consumed RECOMMENDATIONS FOR DISCHARGE: * pending * Please note that the plan above was derived based on current level of insulin resistance and hospital stress. These recommendations are appropriate for inpatient admission only. Plan of care upon discharge will need to be reassessed to avoid potential outpatient hypo/hyperglycemia. Thank you.
[2016-03-15 16:03] VITALS: BP 104/63; PULSE 75; TEMP 36.5; O2SAT 95
[2016-03-15] MEDS: PYRIDOXINE HCL 50 MG TAB PO SCH (21:17)
[2016-03-15] MEDS: INSULIN GLARGINE SOLOSTAR 100 UNITS/ML 3 ML PEN SC SCH (21:24)
[2016-03-15 23:05] VITALS: BP 79/57; PULSE 82; TEMP 36.6; O2SAT 93
[2016-03-16] MEDS: LEVOTHYROXINE 75 MCG TAB PO SCH (05:22)
[2016-03-16] MEDS: HYDROmorphone HCL 2 MG TAB PO PRN ×2 (05:24→14:09)
[2016-03-16 06:23] LABS: MEAN CORPUSCULAR HGB CONC 32.1 g/dl (32-36)
[2016-03-16 06:44] LABS: HEMATOCRIT 29.9 % (42-52); MEAN CORPUSCULAR HEMOGLOBIN 22.8 pg (25-34); RED BLOOD COUNT 4.21 M/uL (4.7-6.1); WHITE BLOOD COUNT 4.93 K/uL (4.8-10.8)
[2016-03-16 06:52] LABS: BUN/CREATININE RATIO 9.1 (10-20); CALCIUM 8.4 mg/dl (8.5-10.1); CREATININE 1.4 mg/dl (0.60-1.40); POTASSIUM 4.2 mmol/L (3.5-5.1)
[2016-03-16 06:54] LABS: PLATELET COUNT 65 K/uL (130-400); PLT ESTIMATE DECREASED
[2016-03-16 07:14] VITALS: BP 105/64; PULSE 65; TEMP 36.6; O2SAT 96
[2016-03-16] MEDS: PROPRANOLOL HCL 10 MG TAB PO SCH ×2 (08:24→20:25)
[2016-03-16] MEDS: LEVETIRACETAM 500 MG TAB PO SCH ×2 (08:25→20:27)
[2016-03-16] MEDS: PANTOprazole SOD 40 MG TAB PO SCH ×2 (08:25→20:27)
[2016-03-16] MEDS: RIFAXIMIN TAB 550 MG TAB PO SCH ×2 (08:25→20:26)
[2016-03-16] MEDS: PREGABALIN 75 MG CAP PO SCH ×3 (08:25→20:31)
[2016-03-16] MEDS: SPIRONOLACTONE 100 MG TAB PO SCH (08:25)
[2016-03-16] MEDS: ESCITALOPRAM OXALATE 10 MG TAB PO SCH (08:25)
[2016-03-16] MEDS: FUROSEMIDE 40 MG TAB PO SCH ×2 (08:25→17:15)
[2016-03-16] MEDS: LACTULOSE SYRUP 20 GM/30 ML UDC PO SCH ×3 (08:25→20:25)
[2016-03-16] MEDS: INSULIN ASPART 100 UNITS/ML 3 ML PEN SC SCH ×4 (08:46→20:24)
[2016-03-16] MEDS: MoRPHine SULFATE 4 MG/ML 1 ML CARP\\VIAL IV PRN ×2 (08:48→17:21)
[2016-03-16] MEDS: MAGNESIUM OXIDE 400 MG TAB PO SCH ×2 (09:40→20:28)
--- NOTE | 2016-03-16 14:34 | Pharmacy Progress Note ---
Glycemic Control: Progress Nt Date of Service Mar 16, 2016. Scope Glycemic Pharmacist consulted by MAYI Brock on 03/13/16 for glycemic control and to write orders per [facility] inpatient glycemic control protocol. Objective Accuchecks BSG (last 24hrs): Test 03/15/16 16:24 03/15/16 19:39 03/15/16 21:13 03/16/16 05:57 Bedside Glucose 257 mg/dl (70-99) 273 mg/dl (70-99) 219 mg/dl (70-99) Random Glucose 242 mg/dl (70-99) Test 03/16/16 07:27 03/16/16 11:30 Bedside Glucose 224 mg/dl (70-99) 212 mg/dl (70-99) Laboratory Data (last 24hrs) Test 03/16/16 05:57 Anion Gap 8.0 mmol/L BUN/Creatinine Ratio 9.1 Blood Urea Nitrogen 13 mg/dl Creatinine 1.40 mg/dl Potassium Level 4.2 mmol/L Sodium Level 134 mmol/L White Blood Count 4.93 K/uL Recent Pertinent Medications Outpatient Anti-diabetic Regimen: * Lantus 28 units SQ HS * NovoLog 30 units SQ with meals * A1c = 8.9% 12/10/15 * estimated average glucose ~200mg/dL The patient is currently receiving: * Lantus 30 units SQ HS * Correctional Insulin with NOVOLOG per scale ACHS or Q6hrs while NPO * Goal Range: Low 140 mg/dL - High 180 mg/dL * Correction Factor: 12 mg/dL/unit * Carb ratio of 1 unit per 4 grams CHO consumed Risk Factors for Insulin Resistance: * Diet: T2DM/Low Na Assessment & Plan ASSESSMENT: * 60 yo T2DM male known to pharmacy from previous admissions/glycemic consults. 03/13/16 * Patient with severe hyperglycemia on admission - received 10 unit IV regular insulin bolus in ED and initiated on IV insulin infusion per protocol. Since patient is not in hyperglycemic crisis, will continue basal insulin with drip to facilitate transition to SQ basal bolus when appropriate. Pt administers Lantus in the evening therefore dosing tonight will keep him on his administration schedule and avoid losing Lantus steady state. IV insulin infusion will serve as "correctional" insulin for severe hyperglycemia. * Patient typically requires ~ 55-60 units of insulin per day with "adequate" control per previous admissions * BSGs somewhat labile and fluctuate throughout the day --> may a result of liver disease and altered glucose homeostasis 03/14/16 * IV insulin infusion stopped around 03:00 this AM when BSGs a~150mg/dL * NovoLog AC/HS started around 04:00 with AC and HS checks following - Tighten NovoLog parameters based on recent admission - Use ADA recommended goal range. * Lantus given last night likely aided in transition off of insulin infusion * give an additional dose of Lantus 5 units SQ x1 this AM as patient may show higher insulin resistance directly following IV insulin administration 03/15/16 * BSGs much improved over the last 24 hours after transitioning off of the insulin gtt * Historically, a more aggressive correction factor and carb ratio have caused hypoglycemia, so I hesitate to further change parameters * Continue NovoLog parameters at this time, may consider change if BSGs elevated again when we assess tomorrow as Mr. Broderick may continue to have insulin resistance related to the IV insulin infusion today. * Additional Lantus given on 03/14 while transitioning off the gtt * Increase Lantus to 30 units SQ q PM - this dose will be easier to draw up and may help with his A1c of 8.9% ( home regimen weighted more toward prandial dosing) * A1c of 8.9% may be near goal for Mr. Broderick with his comorbidities based on the Elements of Diabetes Care Scoring Scale (Goal 7.6-8%) * ADA & AACE recommend a goal blood sugar range 140-180 mg/dl for the majority of critically ill & non-critically ill patients. However, more stringent targets may be selected in individual cases. 03/16/16 * Blood sugars remain in the 200s. * I will tighten CF slightly and change goal range for patient's age and A1c PLAN FOR INPATIENT GLYCEMIC CONTROL: * Continue Lantus 30 units SQ HS * Correctional Insulin with NOVOLOG per scale ACHS or Q6hrs while NPO * CHANGE: Goal Range to Low 120 mg/dL - High 160 mg/dL * CHANGE: Correction Factor: 10 mg/dL/unit * Carb ratio of 1 unit per 4 grams CHO consumed * Please note that the plan above was derived based on current level of insulin resistance and hospital stress. These recommendations are appropriate for inpatient admission only. Plan of care upon discharge will need to be reassessed to avoid potential outpatient hypo/hyperglycemia. Thank you.
--- NOTE | 2016-03-16 14:58 | Progress Note ---
Internal Med Progress Note Date of Service: Mar 16, 2016. Provider Documentation: SUBJECTIVE: The patient was seen and examined Feels a little better BP was noted to be low again this AM Generally weak and lethargic PT/OT requested and did reasonably well OBJECTIVE: Vital Signs-as noted below Exam: General-No distress at rest Eyes-normal ENT-normal Neck-supple Lungs-Clear to ausucltate bilaterally Heart-Regular,no murmur appreciated Abdomen-Mildly Distended,soft Minimally tender to palpate Extremities-1+ edema bilaterally Neuro-AAOx3 Generally weak Lab data as noted below. ASSESSMENT & PLAN: HYPERGLYCEMIA - presented with reports of increased urination and blood sugar found to be 624 - no signs of DKA on [id number] -started on insulin drip with transition to SQ insulin-and pharmacy consult - patient reports blood sugars 100s-300s at home, - hgb a1c 8.9 12/2015-will recheck -Clinically better this AM -Blood sugar seems to be controlled -Appreciate Pharmacy input and recommendation -Blood sugar is reasonably controlled -Likely home in AM PSEUDOHYPONATREMIA - due to hyperglycemia - corrected Na+ 139 -recheck in AM-normalized DIARRHEA-resolved - check stool studies SORE THROAT - likely viral but will check strep swab -much better today -Throat C/S -Heavy normal nicki:Final report to follow -Advised Warm salt water gurgle BETANCOURT, ASCITES, ESOPHAGEAL VARICES - patient requires frequent paracentesis; most recent 02/22 for 5.2 liters - CT abd/pelvis showing moderate - large ascites, will check US - do not suspect SBP - afebrile, no leukocytosis; patient has abdominal pain however seems to be chronic - continue furosemide, spironolactone, Xifaxan, Lactulose, and propranolol -Appreciate GI input S/P Paracentesis of 6 liters of fluid -no SBP HX SEIZURES - continue Keppra HYPOTHYROIDISM - continue levothyroxine ANEMIA/THROMBOCYTOPENIA - chronic due to underlying liver disease - no signs of bleeding - hgb and platelets at baseline HX PE S/P IVC FILTER DVT PROPHYLAXIS - SCDs due to anemia/thrombocytopenia CODE STATUS - Patient is a full code as per my discussion with him. DISPO PT/OT evaluation Likely discharge in AM Vital Signs: Date Time Temp Pulse Resp B/P Pulse Ox O2 Delivery O2 Flow Rate FiO2 03/16/16 08:00 Room Air 03/16/16 07:14 36.6 65 18 105/64 96 Room Air 03/16/16 00:00 Room Air 03/15/16 23:05 36.6 82 18 79/57 93 Room Air 03/15/16 20:00 Room Air 03/15/16 16:44 Room Air 03/15/16 16:03 36.5 75 18 104/63 95 Room Air Lab Results: Results Past 24 Hours Test 03/15/16 16:24 03/15/16 19:39 03/15/16 21:13 03/16/16 05:57 Range/Units Bedside Glucose 257 273 219 70-99 mg/dl White Blood Count 4.93 4.8-10.8 K/uL Red Blood Count 4.21 4.7-6.1 M/uL Hemoglobin 9.6 14.0-18.0 g/dL Hematocrit 29.9 42-52 % Mean Corpuscular Volume 71.0 80-100 fL Mean Corpuscular Hemoglobin 22.8 25-34 pg Mean Corpuscular Hemoglobin Concent 32.1 32-36 g/dl RDW Standard Deviation 52.1 36.4-46.3 fL RDW Coefficient of Variation 19.9 11.5-14.5 % Platelet Count 65 130-400 K/uL Platelet Estimate DECREASED Sodium Level 134 136-145 mmol/L Potassium Level 4.2 3.5-5.1 mmol/L Chloride Level 97 98-107 mmol/L Carbon Dioxide Level 29 21-32 mmol/L Anion Gap 8.0 3-11 mmol/L Blood Urea Nitrogen 13 7-18 mg/dl Creatinine 1.40 0.60-1.40 mg/dl Est Creatinine Clear Calc Drug Dose 60.1 ml/min Estimated GFR () 62.0 Estimated GFR (Non- 53.5 BUN/Creatinine Ratio 9.1 10-20 Random Glucose 242 70-99 mg/dl Calcium Level 8.4 8.5-10.1 mg/dl Magnesium Level 2.0 1.8-2.4 mg/dl Total Bilirubin 1.4 0.2-1 mg/dl Direct Bilirubin 0.6 0-0.2 mg/dl Aspartate Amino Transf (AST/SGOT) 66 15-37 U/L Alanine Aminotransferase (ALT/SGPT) 32 12-78 U/L Alkaline Phosphatase 149 45-117 U/L Total Protein 5.6 6.4-8.2 gm/dl Albumin 2.7 3.4-5.0 gm/dl Test 03/16/16 07:27 03/16/16 11:30 Range/Units Bedside Glucose 224 212 70-99 mg/dl
[2016-03-16 15:08] VITALS: BP 97/58; PULSE 72; TEMP 36.6; O2SAT 92
[2016-03-16] MEDS: ONDANSETRON INJ 2 MG/ML 2 ML VIAL IV PRN (18:49)
[2016-03-16] MEDS: INSULIN GLARGINE SOLOSTAR 100 UNITS/ML 3 ML PEN SC SCH (20:25)
[2016-03-16] MEDS: PYRIDOXINE HCL 50 MG TAB PO SCH (20:26)
[2016-03-16 23:21] VITALS: BP 110/68; PULSE 70; TEMP 36.5; O2SAT 96
[2016-03-17] MEDS: MoRPHine SULFATE 4 MG/ML 1 ML CARP\\VIAL IV PRN ×3 (00:29→16:31)
[2016-03-17] MEDS: HYDROmorphone HCL 2 MG TAB PO PRN ×2 (03:31→12:26)
[2016-03-17] MEDS: ONDANSETRON INJ 2 MG/ML 2 ML VIAL IV PRN ×2 (03:34→16:30)
[2016-03-17] MEDS: LEVOTHYROXINE 75 MCG TAB PO SCH (06:46)
[2016-03-17 07:37] VITALS: BP 94/49; PULSE 74; TEMP 36.7; O2SAT 96
[2016-03-17] MEDS: ESCITALOPRAM OXALATE 10 MG TAB PO SCH (08:54)
[2016-03-17] MEDS: PREGABALIN 75 MG CAP PO SCH ×3 (08:54→21:33)
[2016-03-17] MEDS: PANTOprazole SOD 40 MG TAB PO SCH ×2 (08:55→21:34)
[2016-03-17] MEDS: MAGNESIUM OXIDE 400 MG TAB PO SCH ×2 (08:55→21:34)
[2016-03-17] MEDS: SPIRONOLACTONE 100 MG TAB PO SCH (08:55)
[2016-03-17] MEDS: RIFAXIMIN TAB 550 MG TAB PO SCH ×2 (08:55→21:35)
[2016-03-17] MEDS: PROPRANOLOL HCL 10 MG TAB PO SCH ×2 (08:56→21:00)
[2016-03-17] MEDS: FUROSEMIDE 40 MG TAB PO SCH ×2 (08:57→17:28)
[2016-03-17] MEDS: LEVETIRACETAM 500 MG TAB PO SCH ×2 (08:57→21:33)
[2016-03-17] MEDS: LACTULOSE SYRUP 20 GM/30 ML UDC PO SCH ×3 (08:58→21:32)
[2016-03-17] MEDS: INSULIN ASPART 100 UNITS/ML 3 ML PEN SC SCH ×4 (09:03→21:38)
[2016-03-17 09:05] VITALS: BP 99/68; PULSE 72
--- NOTE | 2016-03-17 09:44 | Pharmacy Progress Note ---
Glycemic Control: Progress Nt Date of Service Mar 17, 2016. Scope Glycemic Pharmacist consulted by Rose SEE on 03/13/16 for glycemic control and to write orders per [facility] inpatient glycemic control protocol. Objective Accuchecks BSG (last 24hrs): Test 03/16/16 11:30 03/16/16 16:05 03/16/16 20:04 03/17/16 07:37 Bedside Glucose 212 mg/dl (70-99) 127 mg/dl (70-99) 122 mg/dl (70-99) 216 mg/dl (70-99) HbA1c: 8.9% 12/10/15 Recent Pertinent Medications Outpatient Anti-diabetic Regimen: * Lantus 28 units Q HS * Novolog 30 units SQ w/ meals * A1c = 8.9 % 12/10/15 The patient is currently receiving: * Basal insulin: Lantus 30 units SQ Q HS * Correctional Insulin: Novolog Correction per scale ACHS Goal Range: Low 120 mg/dL - High 160 mg/dL Correction Factor: 10 mg/dL/unit * Prandial insulin: Per carb ratio of 1 unit per 4 grams CHO consumed * Oral Agents: None currently Risk Factors for Insulin Resistance: * Diet: ordered T2DM / Low Na diet and he appears to be tolerating this well Assessment & Plan ASSESSMENT: 03/17/16: * Overall BSGs have been reasonably well controlled for this patient * He is often difficult to control due to labile BSG responses to small changes in insulin doses * Suspect his underlying hepatic dz contributes to BSG lability * Fasting BSGs routinely elevated despite having 30 units of Lantus on board. This is not new for him and was more common than not on prior admissions. However increases in basal dose often did not lead to improved fasting AM BSGs but did lead to more hypoglycemic episodes * 2 of 3 post-prandial BSGs well controlled yesterday. Reviewed prior admission data, and he does typically require aggressive CF and CR doses, similar to what he is currently receiving. PLAN FOR INPATIENT GLYCEMIC CONTROL: * Continuing Lantus 30 units SQ Q HS * Continuing correction factor of 10 mg/dl/unit * Continuing carb ratio of 1 unit per 4 grams CHO consumed * Continuing goal range of Low 120 mg/dL - High 160 mg/dL * Please note that the plan above was derived based on current level of insulin resistance and hospital stress. These recommendations are appropriate for inpatient admission only. Plan of care upon discharge will need to be reassessed to avoid potential outpatient hypo/hyperglycemia. Thank you.
[2016-03-17 15:07] VITALS: BP 107/63; PULSE 69; TEMP 36.5; O2SAT 96
[2016-03-17 16:00] VITALS: O2SAT 96
--- NOTE | 2016-03-17 16:47 | Progress Note ---
Internal Med Progress Note Date of Service: Mar 17, 2016. Provider Documentation: SUBJECTIVE: The patient was seen and examined Feels worse Increasing abdominal pain and Nausea OBJECTIVE: Vital Signs-as noted below Exam: General-Moderate distress at rets Eyes-normal ENT-normal Neck-supple Lungs-Clear to ausucltate bilaterally Heart-Regular,no murmur appreciated Abdomen-Mildly Distended,soft Minimally tender to palpate Extremities-1+ edema bilaterally Neuro-AAOx3 Generally weak Lab data as noted below. ASSESSMENT & PLAN: HYPERGLYCEMIA - presented with reports of increased urination and blood sugar found to be 624 - no signs of DKA on [id number] -started on insulin drip with transition to SQ insulin-and pharmacy consult - patient reports blood sugars 100s-300s at home, - hgb a1c 8.9 12/2015-will recheck -Clinically better this AM -Blood sugar seems to be controlled -Appreciate Pharmacy input and recommendation -Blood sugar is reasonably controlled Abdominal Pain with Nausea Has BETANCOURT, ASCITES, ESOPHAGEAL VARICES - patient requires frequent paracentesis; most recent 02/22 for 5.2 liters - CT abd/pelvis showing moderate - large ascites, will check US - do not suspect SBP - afebrile, no leukocytosis; patient has abdominal pain however seems to be chronic - continue furosemide, spironolactone, Xifaxan, Lactulose, and propranolol -Appreciate GI input S/P Paracentesis of 6 liters of fluid -no SBP -Started on usual home medications -likely home tomorrow PSEUDOHYPONATREMIA - due to hyperglycemia - corrected Na+ 139 -recheck in AM-normalized DIARRHEA-resolved - check stool studies SORE THROAT - likely viral but will check strep swab -much better today -Throat C/S -Heavy normal nicki:Final report to follow -Advised Warm salt water gurgle HX SEIZURES - continue Keppra HYPOTHYROIDISM - continue levothyroxine ANEMIA/THROMBOCYTOPENIA - chronic due to underlying liver disease - no signs of bleeding - hgb and platelets at baseline HX PE S/P IVC FILTER DVT PROPHYLAXIS - SCDs due to anemia/thrombocytopenia CODE STATUS - Patient is a full code as per my discussion with him. DISPO PT/OT evaluation Likely discharge in AM Vital Signs: Date Time Temp Pulse Resp B/P Pulse Ox O2 Delivery O2 Flow Rate FiO2 03/17/16 15:07 36.5 69 16 107/63 96 Room Air 03/17/16 09:05 72 99/68 03/17/16 08:00 Room Air 03/17/16 07:37 36.7 74 16 94/49 96 Room Air 03/17/16 00:00 Room Air 03/16/16 23:21 36.5 70 20 110/68 96 Room Air 03/16/16 20:00 Room Air Lab Results: Results Past 24 Hours Test 03/16/16 20:04 03/17/16 07:37 03/17/16 11:20 03/17/16 16:17 Range/Units Bedside Glucose 122 216 249 181 70-99 mg/dl
[2016-03-17 21:31] VITALS: BP 91/55; PULSE 73
[2016-03-17] MEDS: PYRIDOXINE HCL 50 MG TAB PO SCH (21:35)
[2016-03-17] MEDS: INSULIN GLARGINE SOLOSTAR 100 UNITS/ML 3 ML PEN SC SCH (21:39)
[2016-03-17 23:45] VITALS: BP 86/53; PULSE 67; TEMP 36.7; O2SAT 98
[2016-03-18] VITALS (7 sets, daily range): BP systolic 95–108; BP diastolic 58–66; PULSE 62–76; TEMP 36.5–36.8; O2SAT 95–99
[2016-03-18] MEDS: ONDANSETRON INJ 2 MG/ML 2 ML VIAL IV PRN ×3 (00:18→22:37)
[2016-03-18] MEDS: MoRPHine SULFATE 4 MG/ML 1 ML CARP\\VIAL IV PRN ×2 (00:20→06:34)
[2016-03-18] MEDS: LEVOTHYROXINE 75 MCG TAB PO SCH (06:34)
[2016-03-18] MEDS: PROPRANOLOL HCL 10 MG TAB PO SCH ×2 (08:07→22:45)
[2016-03-18] MEDS: SPIRONOLACTONE 100 MG TAB PO SCH (08:09)
[2016-03-18] MEDS: MAGNESIUM OXIDE 400 MG TAB PO SCH ×2 (08:09→22:45)
[2016-03-18] MEDS: LACTULOSE SYRUP 20 GM/30 ML UDC PO SCH ×3 (08:09→21:00)
[2016-03-18] MEDS: FUROSEMIDE 40 MG TAB PO SCH ×2 (08:09→17:47)
[2016-03-18] MEDS: ESCITALOPRAM OXALATE 10 MG TAB PO SCH (08:09)
[2016-03-18] MEDS: PANTOprazole SOD 40 MG TAB PO SCH ×2 (08:09→22:45)
[2016-03-18] MEDS: LEVETIRACETAM 500 MG TAB PO SCH ×2 (08:09→22:43)
[2016-03-18] MEDS: RIFAXIMIN TAB 550 MG TAB PO SCH ×2 (08:09→22:46)
[2016-03-18] MEDS: INSULIN ASPART 100 UNITS/ML 3 ML PEN SC SCH ×4 (08:15→22:52)
[2016-03-18] MEDS: PREGABALIN 75 MG CAP PO SCH ×3 (08:15→23:02)
[2016-03-18] MEDS ORDERED: BISACODYL 10 MG SUPP PR STA (09:27)
--- NOTE | 2016-03-18 10:55 | Pharmacy Progress Note ---
Glycemic Control: Progress Nt Date of Service Mar 18, 2016. Scope Glycemic Pharmacist consulted by Rose SEE on 03/13/16 for glycemic control and to write orders per [facility] inpatient glycemic control protocol. Objective Accuchecks BSG (last 24hrs): Test 03/17/16 11:20 03/17/16 16:17 03/17/16 20:03 03/18/16 07:33 Bedside Glucose 249 mg/dl (70-99) 181 mg/dl (70-99) 284 mg/dl (70-99) 197 mg/dl (70-99) HbA1c: 8.9% 12/10/15 Recent Pertinent Medications Outpatient Anti-diabetic Regimen: * Lantus 28 units Q HS * Novolog 30 units SQ w/ meals * A1c = 8.9 % 12/10/15 The patient is currently receiving: * Basal insulin: Lantus 30 units SQ Q HS * Correctional Insulin: Novolog Correction per scale ACHS Goal Range: Low 120 mg/dL - High 160 mg/dL Correction Factor: 10 mg/dL/unit * Prandial insulin: Per carb ratio of 1 unit per 4 grams CHO consumed * Oral Agents: None currently Risk Factors for Insulin Resistance: * Diet: ordered T2DM / Low Na diet and he appears to be tolerating this well Assessment & Plan ASSESSMENT: 03/17/16: * Overall BSGs have been reasonably well controlled for this patient * He is often difficult to control due to labile BSG responses to small changes in insulin doses * Suspect his underlying hepatic dz contributes to BSG lability * Fasting BSGs routinely elevated despite having 30 units of Lantus on board. This is not new for him and was more common than not on prior admissions. However increases in basal dose often did not lead to improved fasting AM BSGs but did lead to more hypoglycemic episodes * 2 of 3 post-prandial BSGs well controlled yesterday. Reviewed prior admission data, and he does typically require aggressive CF and CR doses, similar to what he is currently receiving. 03/18/16: * Glycemic control was worse yesterday than the previous day; BSGs range 181-284 * The reason for decline in glycemic control is unclear, however unexplainable fluctuations are not uncommon for this patient. Upon review of nursing notes it appears that the patient may have been c/o more pain yesterday - perhaps this led to a stress response and hyperglycemia? * Would like to stay the course for one more day with the current insulin orders as reacting to yesterday's highs may increase risk of hypoglycemia in this particular patient. PLAN FOR INPATIENT GLYCEMIC CONTROL: * Continuing Lantus 30 units SQ Q HS * Continuing correction factor of 10 mg/dl/unit * Continuing carb ratio of 1 unit per 4 grams CHO consumed * Changing goal range to Low 120 mg/dL - High 150 mg/dL to allow for one additional unit of insulin when BSGs elevated * Please note that the plan above was derived based on current level of insulin resistance and hospital stress. These recommendations are appropriate for inpatient admission only. Plan of care upon discharge will need to be reassessed to avoid potential outpatient hypo/hyperglycemia. Thank you.
[2016-03-18] MEDS ORDERED: SOD PHOSPHATE/SOD BIPHOSPHATE ENEMA 132 ML BTL PR ONE (11:00)
--- NOTE | 2016-03-18 11:20 | Progress Note ---
Internal Med Progress Note Date of Service: Mar 18, 2016. Provider Documentation: SUBJECTIVE: The patient was seen and examined Feels a little better Lying in bed comfortably Bowel not moved -Has been using more Narcotics Increase ambulation Discharge home today OBJECTIVE: Vital Signs-as noted below Exam: General-No distress at rest Eyes-normal ENT-normal Neck-supple Lungs-Clear to ausucltate bilaterally Heart-Regular,no murmur appreciated Abdomen-Mildly Distended,soft Minimally tender to palpate Extremities-1+ edema bilaterally Neuro-AAOx3 Generally weak Lab data as noted below. ASSESSMENT & PLAN: HYPERGLYCEMIA - presented with reports of increased urination and blood sugar found to be 624 - no signs of DKA on [id number] -started on insulin drip with transition to SQ insulin-and pharmacy consult - patient reports blood sugars 100s-300s at home, - hgb a1c 8.9 12/2015-will recheck -Clinically better this AM -Blood sugar seems to be controlled -Appreciate Pharmacy input and recommendation -Blood sugar is reasonably controlled Abdominal Pain with Nausea Has BETANCOURT, ASCITES, ESOPHAGEAL VARICES - patient requires frequent paracentesis; most recent 02/22 for 5.2 liters - CT abd/pelvis showing moderate - large ascites, will check US - do not suspect SBP - afebrile, no leukocytosis; patient has abdominal pain however seems to be chronic - continue furosemide, spironolactone, Xifaxan, Lactulose, and propranolol -Appreciate GI input S/P Paracentesis of 6 liters of fluid -no SBP -Started on usual home medications -likely home today PSEUDOHYPONATREMIA - due to hyperglycemia - corrected Na+ 139 -recheck in AM-normalized DIARRHEA-resolved - check stool studies SORE THROAT - likely viral but will check strep swab -much better today -Throat C/S -Heavy normal nicki: -Advised Warm salt water gurgle -resolved HX SEIZURES - continue Keppra HYPOTHYROIDISM - continue levothyroxine ANEMIA/THROMBOCYTOPENIA - chronic due to underlying liver disease - no signs of bleeding - hgb and platelets at baseline HX PE S/P IVC FILTER DVT PROPHYLAXIS - SCDs due to anemia/thrombocytopenia CODE STATUS - Patient is a full code as per my discussion with him. DISPO PT/OT evaluation Likely discharge today Vital Signs: Date Time Temp Pulse Resp B/P Pulse Ox O2 Delivery O2 Flow Rate FiO2 03/18/16 09:31 99 Room Air 03/18/16 08:09 36.7 66 12 100/60 99 Room Air 03/18/16 08:00 Room Air 03/18/16 07:22 36.6 62 20 95/60 95 03/18/16 06:53 36.7 64 16 108/66 98 Room Air 03/18/16 00:05 103/58 03/18/16 00:00 Room Air 03/17/16 23:45 36.7 67 20 86/53 98 Room Air 03/17/16 21:31 73 91/55 03/17/16 16:00 96 Room Air 03/17/16 15:07 36.5 69 16 107/63 96 Room Air Lab Results: Results Past 24 Hours Test 03/17/16 11:20 03/17/16 16:17 03/17/16 20:03 03/18/16 07:33 Range/Units Bedside Glucose 249 181 284 197 70-99 mg/dl
[2016-03-18] MEDS: HYDROmorphone HCL 2 MG TAB PO PRN ×2 (13:18→17:53)
[2016-03-18] MEDS: PYRIDOXINE HCL 50 MG TAB PO SCH (22:43)
[2016-03-18] MEDS: INSULIN GLARGINE SOLOSTAR 100 UNITS/ML 3 ML PEN SC SCH (22:53)
[2016-03-19 00:20] VITALS: BP 114/75; PULSE 84; TEMP 36.9; O2SAT 95
[2016-03-19] MEDS: LEVOTHYROXINE 75 MCG TAB PO SCH (06:54)
[2016-03-19 08:01] VITALS: BP 102/59; PULSE 78; TEMP 36.7; O2SAT 99
[2016-03-19] MEDS: SPIRONOLACTONE 100 MG TAB PO SCH (08:45)
[2016-03-19] MEDS: HYDROmorphone HCL 2 MG TAB PO PRN (08:46)
[2016-03-19] MEDS: ESCITALOPRAM OXALATE 10 MG TAB PO SCH (08:46)
[2016-03-19] MEDS: MAGNESIUM OXIDE 400 MG TAB PO SCH (08:46)
[2016-03-19] MEDS: PROPRANOLOL HCL 10 MG TAB PO SCH (08:46)
[2016-03-19] MEDS: PANTOprazole SOD 40 MG TAB PO SCH (08:46)
[2016-03-19] MEDS: LACTULOSE SYRUP 20 GM/30 ML UDC PO SCH ×2 (08:46→13:34)
[2016-03-19] MEDS: PREGABALIN 75 MG CAP PO SCH ×2 (08:46→13:34)
[2016-03-19] MEDS: RIFAXIMIN TAB 550 MG TAB PO SCH (08:46)
[2016-03-19] MEDS: LEVETIRACETAM 500 MG TAB PO SCH (08:46)
[2016-03-19] MEDS: FUROSEMIDE 40 MG TAB PO SCH (08:46)
[2016-03-19] MEDS: INSULIN ASPART 100 UNITS/ML 3 ML PEN SC SCH ×2 (08:48→12:32)
[2016-03-19] MEDS: ONDANSETRON INJ 2 MG/ML 2 ML VIAL IV PRN (08:55)
[2016-03-19] MEDS ORDERED: INSULIN GLARGINE SOLOSTAR 100 UNITS/ML 3 ML PEN SC ONE (09:00)
[2016-03-19 10:43] LABS: CALCIUM 8.2 mg/dl (8.5-10.1); CREATININE 1.5 mg/dl (0.60-1.40); MAGNESIUM 1.9 mg/dl (1.8-2.4); PHOSPHORUS 2.7 mg/dl (2.5-4.9)
[2016-03-19 11:02] LABS: BETA-HYDROXYBUTYRATE 1.03 mg/dL (0.2-2.81)
[2016-03-19 11:30] LABS: HEMATOCRIT 29.1 % (42-52); MEAN CELL VOLUME 68.8 fL (80-100); MEAN CORPUSCULAR HEMOGLOBIN 22.7 pg (25-34); RED BLOOD COUNT 4.23 M/uL (4.7-6.1)
[2016-03-19 11:34] LABS: PLATELET COUNT 70 K/uL (130-400); PLT ESTIMATE DECREASED
--- NOTE | 2016-03-19 11:47 | Progress Note ---
Internal Med Progress Note Date of Service: Mar 19, 2016. Provider Documentation: SUBJECTIVE: The patient was seen and examined Feels much better Lying in bed comfortably Bowel not moved -Has been using more Narcotics Increase ambulation Ready to be discharged today OBJECTIVE: Vital Signs-as noted below Exam: General-No distress at rest Eyes-normal ENT-normal Neck-supple Lungs-Clear to ausucltate bilaterally Heart-Regular,no murmur appreciated Abdomen-Mildly Distended,soft Minimally tender to palpate Extremities-1+ edema bilaterally Neuro-AAOx3 Generally weak Lab data as noted below. ASSESSMENT & PLAN: HYPERGLYCEMIA - presented with reports of increased urination and blood sugar found to be 624 - no signs of DKA on [id number] -started on insulin drip with transition to SQ insulin-and pharmacy consult - patient reports blood sugars 100s-300s at home, - hgb a1c 8.9 12/2015-will recheck -Clinically better this AM -Blood sugar seems to be controlled -Appreciate Pharmacy input and recommendation -Blood sugar is reasonably controlled -Ready to be discharged today Abdominal Pain with Nausea Has BETANCOURT, ASCITES, ESOPHAGEAL VARICES - patient requires frequent paracentesis; most recent 02/22 for 5.2 liters - CT abd/pelvis showing moderate - large ascites, will check US - do not suspect SBP - afebrile, no leukocytosis; patient has abdominal pain however seems to be chronic - continue furosemide, spironolactone, Xifaxan, Lactulose, and propranolol -Appreciate GI input S/P Paracentesis of 6 liters of fluid -no SBP -Started on usual home medications PSEUDOHYPONATREMIA - due to hyperglycemia - corrected Na+ 139 -recheck in AM-normalized DIARRHEA-resolved - check stool studies-negative SORE THROAT - likely viral but will check strep swab -much better today -Throat C/S -Heavy normal nicki: -Advised Warm salt water gurgle -resolved HX SEIZURES - continue Keppra HYPOTHYROIDISM - continue levothyroxine ANEMIA/THROMBOCYTOPENIA - chronic due to underlying liver disease - no signs of bleeding - hgb and platelets at baseline~60 HX PE S/P IVC FILTER DVT PROPHYLAXIS - SCDs due to anemia/thrombocytopenia CODE STATUS - Patient is a full code as per my discussion with him. DISPO PT/OT evaluation Likely discharge today Vital Signs: Date Time Temp Pulse Resp B/P Pulse Ox O2 Delivery O2 Flow Rate FiO2 03/19/16 08:01 36.7 78 18 102/59 99 03/19/16 08:00 Room Air 03/19/16 04:05 Room Air 03/19/16 00:20 36.9 84 20 114/75 95 Room Air 03/19/16 00:05 Room Air 03/18/16 20:05 Room Air 03/18/16 16:00 Room Air 03/18/16 15:31 36.8 76 12 100/58 97 Room Air 03/18/16 12:04 36.5 66 12 98/64 98 Room Air Lab Results: Results Past 24 Hours Test 03/18/16 16:33 03/18/16 19:53 03/18/16 20:21 03/19/16 05:52 Range/Units Bedside Glucose 247 321 316 70-99 mg/dl Test 03/19/16 07:40 03/19/16 09:47 Range/Units Bedside Glucose 306 70-99 mg/dl White Blood Count 4.70 4.8-10.8 K/uL Red Blood Count 4.23 4.7-6.1 M/uL Hemoglobin 9.6 14.0-18.0 g/dL Hematocrit 29.1 42-52 % Mean Corpuscular Volume 68.8 80-100 fL Mean Corpuscular Hemoglobin 22.7 25-34 pg Mean Corpuscular Hemoglobin Concent 33.0 32-36 g/dl RDW Standard Deviation 49.7 36.4-46.3 fL RDW Coefficient of Variation 19.9 11.5-14.5 % Platelet Count 70 130-400 K/uL Platelet Estimate DECREASED Sodium Level 134 136-145 mmol/L Potassium Level 4.0 3.5-5.1 mmol/L Chloride Level 97 98-107 mmol/L Carbon Dioxide Level 28 21-32 mmol/L Anion Gap 9.0 3-11 mmol/L Blood Urea Nitrogen 21 7-18 mg/dl Creatinine 1.50 0.60-1.40 mg/dl Est Creatinine Clear Calc Drug Dose 56.1 ml/min Estimated GFR () 57.0 Estimated GFR (Non- 49.2 BUN/Creatinine Ratio 14.0 10-20 Random Glucose 361 70-99 mg/dl Calcium Level 8.2 8.5-10.1 mg/dl Phosphorus Level 2.7 2.5-4.9 mg/dl Magnesium Level 1.9 1.8-2.4 mg/dl Beta-Hydroxybutyric Acid 1.03 0.2-2.81 mg/dL
--- NOTE | 2016-03-19 14:01 | Pharmacy Progress Note ---
Glycemic Control: Progress Nt Date of Service Mar 19, 2016. Scope Glycemic Pharmacist consulted by Rose SEE on 03/13/16 for glycemic control and to write orders per [facility] inpatient glycemic control protocol. Objective Accuchecks BSG (last 24hrs): Test 03/18/16 16:33 03/18/16 19:53 03/18/16 20:21 03/19/16 07:40 Bedside Glucose 247 mg/dl (70-99) 321 mg/dl (70-99) 316 mg/dl (70-99) 306 mg/dl (70-99) Test 03/19/16 09:47 03/19/16 11:46 Random Glucose 361 mg/dl (70-99) soon after eating Bedside Glucose 281 mg/dl (70-99) Laboratory Data (last 24hrs) Test 03/19/16 05:52 03/19/16 09:47 Anion Gap 9.0 mmol/L BUN/Creatinine Ratio 14.0 Blood Urea Nitrogen 21 mg/dl Creatinine 1.50 mg/dl Potassium Level 4.0 mmol/L Sodium Level 134 mmol/L White Blood Count 4.70 K/uL HbA1c: Test 03/19/16 05:52 Recent Pertinent Medications Outpatient Anti-diabetic Regimen: * Lantus 28 units Q HS * Novolog 30 units SQ w/ meals * A1c = 8.9 % 12/10/15 The patient is currently receiving: * Basal insulin: Lantus 30 units SQ Q HS * Correctional Insulin: Novolog Correction per scale ACHS Goal Range: Low 120 mg/dL - High 150 mg/dL Correction Factor: 10 mg/dL/unit * Prandial insulin: Per carb ratio of 1 unit per 4 grams CHO consumed * Oral Agents: None currently Risk Factors for Insulin Resistance: * Diet: ordered T2DM / Low Na diet and he appears to be tolerating this well. Patient also noted to be snacking Assessment & Plan ASSESSMENT: 03/17/16: * Overall BSGs have been reasonably well controlled for this patient * He is often difficult to control due to labile BSG responses to small changes in insulin doses * Suspect his underlying hepatic dz contributes to BSG lability * Fasting BSGs routinely elevated despite having 30 units of Lantus on board. This is not new for him and was more common than not on prior admissions. However increases in basal dose often did not lead to improved fasting AM BSGs but did lead to more hypoglycemic episodes * 2 of 3 post-prandial BSGs well controlled yesterday. Reviewed prior admission data, and he does typically require aggressive CF and CR doses, similar to what he is currently receiving. 03/18/16: * Glycemic control was worse yesterday than the previous day; BSGs range 181-284 * The reason for decline in glycemic control is unclear, however unexplainable fluctuations are not uncommon for this patient. Upon review of nursing notes it appears that the patient may have been c/o more pain yesterday - perhaps this led to a stress response and hyperglycemia? * Would like to stay the course for one more day with the current insulin orders as reacting to yesterday's highs may increase risk of hypoglycemia in this particular patient. 03/19/16: * Glycemic control continued to worsen; BSGs ranged 197-316 over last 24 hours * It should be noted that HS BSG elevated due to patient snacking and eating egg salad sandwich. Could pt also be snacking during the day? * At this point, I feel it necessary to begin increasing his insulin doses. The current pattern reflects a basal insulin deficiency. Certainly his total daily dose suggests more basal may be needed (receiving 100+ units per day when tolerating a diet). * Will only make a small adjustment to the carb ratio today to allow for a few additional units w/ meals to help control hyperglycemia today, until higher basal dose is in effect PLAN FOR INPATIENT GLYCEMIC CONTROL: * Increase Lantus to 36 units SQ Q HS; 6 additional units were given this AM * Continuing correction factor of 10 mg/dl/unit * Changing carb ratio to 1 unit per 3.5 grams CHO consumed * Continuing goal range Low 120 mg/dL - High 150 mg/dL * Please note that the plan above was derived based on current level of insulin resistance and hospital stress. These recommendations are appropriate for inpatient admission only. Plan of care upon discharge will need to be reassessed to avoid potential outpatient hypo/hyperglycemia. Thank you.
--- NOTE | 2016-03-19 15:03 | Discharge Instructions ---
Discharge Instructions Admission Reason for Admission: Hyperglycemia Discharge Discharge Diagnosis / Problem: Hyperglycemia,Tense Ascites Discharge Goals Goal(s): Prevent Disease Progression Activity Recommendations Activity Limitations: resume your previous activity . Instructions / Follow-Up Instructions / Follow-Up Your Doctor's office will call with appointment.Will need regular follow up appointment with GI Current Hospital Diet Patient's current hospital diet: Diabetes Type 2 Diet, Low Sodium Diet (2gm Na) Discharge Diet Recommended Diet: Low Sodium Diet (2gm Na), Diabetes Type 2 Diet Fluid Restriction: 1500 ml (6 cups) Pending Studies Studies pending at discharge: no Laboratory Results Hemoglobin A1c Test 03/19/16 05:52 Range/Units Medical Emergencies . Who to Call and When: Medical Emergencies: If at any time you feel your situation is an emergency, please call 911 immediately. . Non-Emergent Contact Non-Emergency issues call your: Primary Care Provider . Past History Medical & Surgical History: (1) Depression (2) BETANCOURT (nonalcoholic steatohepatitis) (3) Esophageal varices (4) DM2 (diabetes mellitus, type 2) (5) Hypothyroidism (6) End stage liver disease (7) Seizure disorder (8) Portal hypertension (9) S/P cervical spinal fusion (10) S/P lumbar fusion (11) S/P IVC filter (12) S/P T&A (status post tonsillectomy and adenoidectomy) . "Provider Documentation" section prepared by Ksenia Hanks. VTE Core Measure Inpt VTE Proph given/why not?: SCD's
[2016-03-19 15:10] VITALS: BP 102/59; PULSE 78; TEMP 36.7; O2SAT 99
--- NOTE | 2016-03-19 16:47 | Discharge Summary ---
Discharge Summary Admission Date: Mar 13, 2016 at 18:27 Discharge Date: Mar 19, 2016 Discharge Disposition: Home with services Principal Diagnosis: Hyperglycemia,Tense ascites,Cirrhosis Secondary Diagnoses/Problems: Please see H&P Procedures: Paracentesis-6 liters Consultations: GI Medication Reconciliation Continued Medications: Escitalopram (Lexapro) 10 Mg Tab 10 MG PO DAILY, TAB Furosemide (Lasix) 40 Mg Tab 40 MG PO BID, TAB Hydromorphone Hcl (Dilaudid) 4 Mg Tab 1 TAB PO TID PRN for Pain for 30 Days, #90 TAB Insulin Aspart (Novolog Penfill) 100 Unit/Ml Inj SQ TIDM via SSI Insulin Glargine (Lantus) 100 Unit/Ml Inj 32 UNITS SC HS, VIAL Lactulose (Lactulose) 20 Gm/30 Ml Syrp 20 GM PO TID for 30 Days Levetiractam (Levetiracetam) 500 Mg Tab 500 MG PO AMHS Levothyroxine Sodium (Synthroid) 75 Mcg Tab 75 MCG PO DAILY, TAB Magnesium Oxide (Mag-Ox) 400 Mg Tab 400 MG PO BID Ondasetron Odt (Zofran Odt) 4 Mg Tab 4 MG SL Q6H PRN for Nausea or Vomiting, TAB Pantoprazole (Protonix) 40 Mg Tab 40 MG PO BID, TAB Pregabalin (Lyrica) 75 Mg Cap 75 MG PO TID, CAP Propranolol (Inderal) 10 Mg Tab 10 MG PO BID, TAB Pyridoxine Hcl (Vitamin B-6) 25 Mg Tab 25 MG PO HS Rifaximin (Xifaxan) 550 Mg Tab 550 MG PO AMHS ONE AT BREAKFAST AND ONE AT SUPPER. Spironolactone (Aldactone) 100 Mg Tab 1 TAB PO DAILY for 30 Days, #30 TAB 11 Refills Triamcinolone Acet 0.1% (Aristocort 0.1%) Cr 1 APPLN TOP BID USE TO AFFECTED AREA FOR DERMATITIS Admission Information HPI (per Admitting provider): 60 year old male who presents to the ER for evaluation of urinary frequency and diarrhea. Patient was recently admitted to [facility] 02/22 for abdominal pain. Patient underwent 5.2L paracentesis. No SBP. Patient has BETANCOURT and undergoes frequent paracentesis. Patient reports feeling well since his discharge until this past week. He reports he has noticed urinary frequency and has been urinating up to 20 times per day. He denies hematuria or dysuria. He has chronic loose stools due to Lactulose however reports stools have increased infrequency and and are looser. He has chronic lower abdominal pain which is unchanged. He denies fever and chills. Abdomen has been getting more distended. He reports he requires paracentesis every 10-14 days and has not had one since his previous hospital admission. He denies chest pain and shortness of breath. No lightheadedness, dizziness, or syncopal events. He reports his blood sugars have been ranging from the 100s-300s. In the ER, patient's glucose is 624. CT abd/pelvis shows moderate-large ascites. Remainder of his labs and imaging are unremarkable. He was given IVF, Zofran, Morphine, Dilaudid, and 10 units IV insulin. 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 Surgical Problems: (1) H/O esophagogastroduodenoscopy Status: Resolved (2) H/O knee surgery Status: Resolved (3) S/P cervical spinal fusion Status: Resolved (4) S/P IVC filter Status: Resolved (5) S/P lumbar fusion Status: Resolved (6) S/P T&A (status post tonsillectomy and adenoidectomy) Status: Resolved Family History FH: CAD (coronary artery disease) FATHER FH: breast cancer MOTHER Social History Smoking Status: Never Smoker Alcohol Use: none Housing status: lives with roommate Immunizations History of Influenza Vaccine: Yes Influenza Vaccine Date: Oct 21, 2014 History of Pneumococcal: Yes Pneumococcal Date: Feb 05, 2009 Allergies Coded Allergies: NSAIDs (Verified Allergy, Severe, DUE TO LIVER DISEAS, 03/13/16) Penicillins (Verified Allergy, Severe, JOINT SWELLING AND FEVER, 03/13/16) Levofloxacin (Verified Allergy, Mild, RASH, 03/13/16) pt developed erythema at site of IV injection with itching Vancomycin (Verified Allergy, Mild, HIVES, 03/13/16) HIVES Acetaminophen (Unverified Allergy, Unknown, unknown, 03/13/16) Tramadol (Verified Allergy, Unknown, NOT TO TAKE WITH KEPPRA DUE TO SEIZURE RISK, 03/13/16) Home Medications Scheduled Escitalopram (Lexapro), 10 MG PO DAILY Furosemide (Lasix), 40 MG PO BID Insulin Aspart (Novolog Penfill), SQ TIDM Insulin Glargine (Lantus), 28 UNITS SC HS Lactulose (Lactulose), 20 GM PO TID Levetiractam (Levetiracetam), 500 MG PO AMHS Levothyroxine Sodium (Synthroid), 75 MCG PO DAILY Magnesium Oxide (Mag-Ox), 400 MG PO BID Pantoprazole (Protonix), 40 MG PO BID Pregabalin (Lyrica), 75 MG PO TID Propranolol (Inderal), 10 MG PO BID Pyridoxine Hcl (Vitamin B-6), 25 MG PO HS Rifaximin (Xifaxan), 550 MG PO AMHS Spironolactone (Aldactone), 1 TAB PO DAILY Triamcinolone Acet 0.1% (Aristocort 0.1%), 1 APPLN TOP BID Scheduled PRN Hydromorphone Hcl (Dilaudid), 1 TAB PO TID PRN for Pain Ondasetron Odt (Zofran Odt), 4 MG SL Q6H PRN for Nausea or Vomiting Review of Systems 10 point review of systems was completed with the pertinent positives and negatives noted per the HPI Physical Exam Vital Signs Date Time Temp Pulse Resp B/P Pulse Ox O2 Delivery O2 Flow Rate FiO2 03/13/16 18:42 70 16 115/69 96 Room Air 03/13/16 17:29 68 18 115/69 96 03/13/16 15:34 67 03/13/16 15:29 36.9 77 18 126/62 94 Room Air General Appearance: no apparent distress Head: normocephalic Eyes: normal inspection ENT: hearing grossly normal, + pharyngeal erythema (with exudate) Neck: supple, no JVD Respiratory/Chest: lungs clear, normal breath sounds, no respiratory distress Cardiovascular: regular rate, rhythm, + pertinent finding (trace edema BLLE) Abdomen/GI: normal bowel sounds, soft, + tenderness (lower abdomen), + distended (ascites) Extremities/Musculoskelatal: normal inspection, no calf tenderness Neurologic/Psych: no motor/sensory deficits, alert, normal mood/affect, oriented x 3 Skin: normal color, warm/dry Diagnostics Laboratory Results Results Past 24 Hours Test 03/13/16 16:20 03/13/16 16:45 Range/Units White Blood Count 7.08 4.8-10.8 K/uL Red Blood Count 4.39 4.7-6.1 M/uL Hemoglobin 10.1 14.0-18.0 g/dL Hematocrit 30.5 42-52 % Mean Corpuscular Volume 69.5 80-100 fL Mean Corpuscular Hemoglobin 23.0 25-34 pg Mean Corpuscular Hemoglobin Concent 33.1 32-36 g/dl Platelet Count 62 130-400 K/uL Neutrophils (%) (Auto) 80.4 % Lymphocytes (%) (Auto) 9.0 % Monocytes (%) (Auto) 7.9 % Eosinophils (%) (Auto) 2.0 % Basophils (%) (Auto) 0.6 % Neutrophils # (Auto) 5.69 1.4-6.5 K/uL Lymphocytes # (Auto) 0.64 1.2-3.4 K/uL Monocytes # (Auto) 0.56 0.11-0.59 K/uL Eosinophils # (Auto) 0.14 0-0.5 K/uL Basophils # (Auto) 0.04 0-0.2 K/uL RDW Standard Deviation 47.0 36.4-46.3 fL RDW Coefficient of Variation 18.6 11.5-14.5 % Immature Granulocyte % (Auto) 0.1 % Immature Granulocyte # (Auto) 0.01 0.00-0.02 K/uL Platelet Estimate DECREASED Polychromasia 1+ Microcytosis PRESENT Prothrombin Time 13.6 9.0-12.0 SECONDS Prothromb Time International Ratio 1.3 0.9-1.1 Activated Partial Thromboplast Time 23.3 21.0-31.0 SECONDS Partial Thromboplastin Ratio 0.9 Sodium Level 126 136-145 mmol/L Potassium Level 4.7 3.5-5.1 mmol/L Chloride Level 88 98-107 mmol/L Carbon Dioxide Level 27 21-32 mmol/L Anion Gap 11.0 3-11 mmol/L Blood Urea Nitrogen 13 7-18 mg/dl Creatinine 1.40 0.60-1.40 mg/dl Est Creatinine Clear Calc Drug Dose 60.8 ml/min Estimated GFR () 62.4 Estimated GFR (Non- 53.8 BUN/Creatinine Ratio 9.0 10-20 Random Glucose 624 70-99 mg/dl Calcium Level 8.2 8.5-10.1 mg/dl Magnesium Level 2.2 1.8-2.4 mg/dl Total Bilirubin 1.7 0.2-1 mg/dl Direct Bilirubin 0.8 0-0.2 mg/dl Aspartate Amino Transf (AST/SGOT) 25 15-37 U/L Alanine Aminotransferase (ALT/SGPT) 22 12-78 U/L Alkaline Phosphatase 141 45-117 U/L Total Protein 6.4 6.4-8.2 gm/dl Albumin 2.8 3.4-5.0 gm/dl Lipase 84 73-393 U/L Beta-Hydroxybutyric Acid 2.24 0.2-2.81 mg/dL Urine Color YELLOW Urine Appearance CLEAR CLEAR Urine pH 6.5 4.5-7.5 Urine Specific [place] 1.031 1.000-1.030 Urine Protein NEG NEG Urine Glucose (UA) 3+ NEG Urine Ketones NEG NEG Urine Occult Blood NEG NEG Urine Nitrite NEG NEG Urine Bilirubin NEG NEG Urine Urobilinogen NEG NEG Urine Leukocyte Esterase NEG NEG Diagnostic Radiology HEAD CT IMPRESSION: No acute intracranial findings CXR IMPRESSION: Persistent left basilar atelectatic changes. No acute findings. ABD/PELVIS CT IMPRESSION: 1. Cirrhotic liver morphology with splenomegaly, moderate to large volume ascites, esophageal and upper abdominal varices 2. Cholelithiasis 3. Hiatal hernia 4. No evidence of bowel obstruction. No evidence of free air Impression Assessment and Plan HYPERGLYCEMIA - admit to med/surg - presenting with reports of increased urination and blood sugar found to be 624 - no signs of DKA - will start insulin gtt with transition to SQ insulin - patient reports blood sugars 100s-300s at home, ? accuracy of meter - hgb a1c 8.9 12/2015 PSEUDOHYPONATREMIA - due to hyperglycemia - corrected Na+ 139 DIARRHEA - check stool studies SORE THROAT - likely viral but will check strep swab BETANCOURT, ASCITES, ESOPHAGEAL VARICES - patient requires frequent paracentesis; most recent 02/22 for 5.2 liters - CT abd/pelvis showing moderate - large ascites, will check US - do not suspect SBP - afebrile, no leukocytosis; patient has abdominal pain however seems to be chronic - continue furosemide, spironolactone, Xifaxan, Lactulose, and propranolol HX SEIZURES - continue Keppra HYPOTHYROIDISM - continue levothyroxine ANEMIA/THROMBOCYTOPENIA - chronic due to underlying liver disease - no signs of bleeding - hgb and platelets at baseline HX PE S/P IVC FILTER DVT PROPHYLAXIS - SCDs due to anemia/thrombocytopenia CODE STATUS - Patient is a full code as per my discussion with him. DISPO - In my clinical judgment this beneficiary meets acute admission criteria, established by [facility], that includes being hospitalized through two midnights. Attending Addendum: The patient was seen and examined Presented with extreme weakness and tiredness No fever ,chills Has polyuria without dysuria O/E Not in any distress Hemodynamically stable Chest-clear to auscultate Heart-regular Abdomen-distended,soft,tender ,umbilical hernia Moderate ascites Extremities-1+ edema bilaterally Labs and Imaging studies were reviewed Polyuria likely due to high Blood Sugar Hyponatremia is spurious Agree with the assessment and plan Dr Priyank agustin VTE Prophylaxis VTE Risk Assessment Done? Y/N: Yes Risk Level: Moderate <Electronically signed by Emily SEE> <Electronically signed by Ksenia Agustin M.D.> Physical Exam (per Admitting): General Appearance: no apparent distress Head: normocephalic Eyes: normal inspection ENT: hearing grossly normal, + pharyngeal erythema (with exudate) Neck: supple, no JVD Respiratory/Chest: lungs clear, normal breath sounds, no respiratory distress Cardiovascular: regular rate, rhythm, + pertinent finding (trace edema BLLE) Abdomen/GI: normal bowel sounds, soft, + tenderness (lower abdomen), + distended (ascites) Extremities/Musculoskelatal: normal inspection, no calf tenderness Neurologic/Psych: no motor/sensory deficits, alert, normal mood/affect, oriented x 3 Skin: normal color, warm/dry Hospital Course HYPERGLYCEMIA - presented with reports of increased urination and blood sugar found to be 624 - no signs of DKA on [id number] -started on insulin drip with transition to SQ insulin-and pharmacy consult - patient reports blood sugars 100s-300s at home, - hgb a1c 8.9 12/2015-will recheck -Clinically better this AM -Blood sugar seems to be controlled -Appreciate Pharmacy input and recommendation -Blood sugar is reasonably controlled -Ready to be discharged today Abdominal Pain with Nausea Has BETANCOURT, ASCITES, ESOPHAGEAL VARICES - patient requires frequent paracentesis; most recent 02/22 for 5.2 liters - CT abd/pelvis showing moderate - large ascites, will check US - do not suspect SBP - afebrile, no leukocytosis; patient has abdominal pain however seems to be chronic - continue furosemide, spironolactone, Xifaxan, Lactulose, and propranolol -Appreciate GI input S/P Paracentesis of 6 liters of fluid -no SBP -Started on usual home medications PSEUDOHYPONATREMIA - due to hyperglycemia - corrected Na+ 139 -recheck in AM-normalized DIARRHEA-resolved - check stool studies-negative SORE THROAT - likely viral but will check strep swab -much better today -Throat C/S -Heavy normal nicki: -Advised Warm salt water gurgle -resolved HX SEIZURES - continue Keppra HYPOTHYROIDISM - continue levothyroxine ANEMIA/THROMBOCYTOPENIA - chronic due to underlying liver disease - no signs of bleeding - hgb and platelets at baseline~60 HX PE S/P IVC FILTER DVT PROPHYLAXIS - SCDs due to anemia/thrombocytopenia CODE STATUS - Patient is a full code as per my discussion with him. DISPO PT/OT evaluation Likely discharge today Total time spent on discharge = 35 minutes This includes examination of the patient, discharge planning, medication reconciliation, and communication with other providers. Discharge Instructions Admission Reason for Admission: Hyperglycemia Discharge Discharge Diagnosis / Problem: Hyperglycemia,Tense Ascites Discharge Goals Goal(s): Prevent Disease Progression Activity Recommendations Activity Limitations: resume your previous activity . Instructions / Follow-Up Instructions / Follow-Up Your Doctor's office will call with appointment.Will need regular follow up appointment with GI Current Hospital Diet Patient's current hospital diet: Diabetes Type 2 Diet, Low Sodium Diet (2gm Na) Discharge Diet Recommended Diet: Low Sodium Diet (2gm Na), Diabetes Type 2 Diet Fluid Restriction: 1500 ml (6 cups) Pending Studies Studies pending at discharge: no Laboratory Results Hemoglobin A1c Test 03/19/16 05:52 Range/Units Medical Emergencies . Who to Call and When: Medical Emergencies: If at any time you feel your situation is an emergency, please call 911 immediately. . Non-Emergent Contact Non-Emergency issues call your: Primary Care Provider . Past History Medical & Surgical History: (1) Depression (2) BETANCOURT (nonalcoholic steatohepatitis) (3) Esophageal varices (4) DM2 (diabetes mellitus, type 2) (5) Hypothyroidism (6) End stage liver disease (7) Seizure disorder (8) Portal hypertension (9) S/P cervical spinal fusion (10) S/P lumbar fusion (11) S/P IVC filter (12) S/P T&A (status post tonsillectomy and adenoidectomy) . "Provider Documentation" section prepared by Ksenia Agustin. VTE Core Measure Inpt VTE Proph given/why not?: SCD's <Electronically signed by Ksenia Agustin M.D.> Additional Copies To Giulia Liu M.D.
[2016-03-19] MEDS ORDERED: INSULIN GLARGINE SOLOSTAR 100 UNITS/ML 3 ML PEN SC SCH (21:00)
[2016-03-20] MEDS ORDERED: INSULIN ASPART 100 UNITS/ML 3 ML PEN SC ONE (02:00)
[2016-03-20 06:16] LABS: ESTIMATED AVERAGE GLUCOSE 315 mg/dl; HA1C FLAG Normal (Normal)
[2016-03-28] MEDS ORDERED: ZNT150 PO (10:54)
[2016-04-07] MEDS ORDERED: LSX20 PO (16:03)
[2016-04-07] MEDS ORDERED: DLD2 PO (16:03)
[2016-04-10] MEDS ORDERED: BND25X PO (13:11)
[2016-05-15] MEDS ORDERED: HYDR2TAB48 PO (14:38)
[2016-05-23] MEDS ORDERED: HYDR4TAB78 PO (09:03)
[2016-07-01] MEDS ORDERED: MAGN400T5 PO (01:36)
[2016-07-01] MEDS ORDERED: DIPH50TA10 PO (02:00)
[2016-07-01] MEDS ORDERED: TRMCR130WC EXT (03:58)
[2016-07-01] MEDS ORDERED: LACT10SO17 PO (04:04)
[2016-07-01] MEDS ORDERED: PROP10TA7 PO (04:52)
[2016-07-01] MEDS ORDERED: PYRI25TA PO (04:52)
[2016-07-01] MEDS ORDERED: FURO-85 PO (05:55)
[2016-07-01] MEDS ORDERED: LEVO75TA PO (12:02)
[2016-07-01] MEDS ORDERED: ONDA4TAB10 SL (12:02)
[2016-07-01] MEDS ORDERED: RIFA550T2 PO (13:45)
[2016-07-01] MEDS ORDERED: FERR1TAB13 PO (14:58)
[2016-07-01] MEDS ORDERED: INSDGI SC (16:08)
[2016-07-01] MEDS ORDERED: LEVE500T PO (16:08)
[2016-08-22] MEDS ORDERED: INSDGI SC (09:03)
[2016-08-22] MEDS ORDERED: MRLP17 PO (09:03)
[2016-08-29] MEDS ORDERED: INSDGI SC (12:27)
[2016-08-29] MEDS ORDERED: POLY335019 PO (12:27)
[2016-11-06] MEDS ORDERED: CLIN300C2 PO (14:29)
[2016-11-06] MEDS ORDERED: LCTX PO (14:29)
== END 2016-03-19 15:38 | disposition home health service (06) | DRG 638 ==
LOC: ENRESERVTM → ENRESERVDT → EDBD 15:18 → C.EDB 15:19 → C.MED 18:27 → C.4E 03-19 10:39
PROVIDERS: ADMIT Internal Medicine; ATTEND Internal Medicine
PROC: 0W9G3ZZ Drainage of Peritoneal Cavity, Percutaneous Approach (ICD-10-PCS; principal; 2016-03-14)
DX: E11.65 Type 2 diabetes mellitus with hyperglycemia (principal); R18.8 Other ascites; E87.1 Hypo-osmolality and hyponatremia; I85.10 Secondary esophageal varices without bleeding; R19.7 Diarrhea, unspecified; E86.0 Dehydration; E87.70 Fluid overload, unspecified; J02.9 Acute pharyngitis, unspecified; K75.81 Nonalcoholic steatohepatitis (NASH); K74.60 Unspecified cirrhosis of liver; G40.909 Epilepsy, unspecified, not intractable, without status epilepticus; D64.9 Anemia, unspecified; D69.59 Other secondary thrombocytopenia; E03.9 Hypothyroidism, unspecified; G89.29 Other chronic pain; R10.30 Lower abdominal pain, unspecified; F41.9 Anxiety disorder, unspecified; F32.9 Major depressive disorder, single episode, unspecified; Z98.1 Arthrodesis status; Z86.711 Personal history of pulmonary embolism; Z79.4 Long term (current) use of insulin; Z79.899 Other long term (current) drug therapy; Z79.891 Long term (current) use of opiate analgesic

== ENCOUNTER 2016-03-27 03:32 | Inpatient (IN) | payer OTHER ==
[~2016-03-27] VITALS: Ht 182.9 cm; Wt 75.6 kg
[~2016-03-27 03:32] MED LIST changes: -INSDGI SC; +INSU1INJ2 SQ; -LEVE500T26 PO; -NVLGI7030 SC
[2016-03-27 03:39] VITALS: Ht 182.9 cm; Wt 75.6 kg
[2016-03-27] MEDS ORDERED: ONDANSETRON INJ 2 MG/ML 2 ML VIAL IV STA (04:17)
[2016-03-27] MEDS ORDERED: HYDROmorphone INJ 1 MG/ML SYR IV STA (04:17)
--- NOTE | 2016-03-27 04:29 | EMERGENCY ROOM VISIT NOTE ---
History Report prepared by Alla: Joseph Fontaine Under the Supervision of: Dr. Nimisha Oliveros M.D. First contact with patient: 03:43 Chief Complaint: ABDOMINAL PAIN Stated Complaint: ABD PAIN Nursing Triage Summary: Patient arrived to ED via ALS for abdominal pain. Reports that his pain began worsening over the weekend. Patient abdomen is significantly distended. Patient has a hx of non-alcoholic end stage cirrhosis and liver CA. Patient reports that he typically has his abdomen drained every 8-14 days, last time this was done was the week of 03/15. Reports that he has gained 24 lbs of fluid since Sunday. History of Present Illness The patient is a 61 year old male who presents to the Emergency Room with complaints of worsening difficulty breathing and left sided chest pain that began two days prior to arrival. The patient has been diagnosed with non- alcoholic fatty liver disease and commonly has paracentesis every 8-14 days. He states that he has gained nearly 24 pounds in the last several days. The patient denies any recent difficulty urinating. 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 A total of 10 systems reviewed and were otherwise negative. 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 Surgical Problems: (1) H/O esophagogastroduodenoscopy (2) H/O knee surgery (3) S/P cervical spinal fusion (4) S/P IVC filter (5) S/P lumbar fusion (6) S/P T&A (status post tonsillectomy and adenoidectomy) Family History FH: CAD (coronary artery disease) FATHER FH: breast cancer MOTHER Social History Smoking Status: Never Smoker Alcohol Use: none Marital Status: single Housing Status: lives alone Occupation Status: retired Current/Historical Medications Scheduled Escitalopram (Lexapro), 10 MG PO DAILY Furosemide (Lasix), 40 MG PO BID Insulin Aspart (Novolog Penfill), SQ TIDM Insulin Glargine (Lantus), 32 UNITS SC HS Lactulose (Chronulac), 20 GM PO TID Levetiractam (Levetiracetam), 500 MG PO AMHS Levothyroxine Sodium (Synthroid), 75 MCG PO DAILY Magnesium Oxide (Mag-Ox), 400 MG PO BID Pantoprazole (Protonix), 40 MG PO BID Pregabalin (Lyrica), 75 MG PO TID Propranolol (Inderal), 10 MG PO BID Pyridoxine Hcl (Vitamin B-6), 25 MG PO HS Ranitidine HCl (Ranitidine HCl), 150 MG PO HS Rifaximin (Xifaxan), 550 MG PO AMHS Spironolactone (Aldactone), 1 TAB PO DAILY Scheduled PRN Hydromorphone Hcl (Dilaudid), 1 TAB PO TID PRN for Pain Ondasetron Odt (Zofran Odt), 4 MG SL Q6H PRN for Nausea or Vomiting Triamcinolone Acet (Aristocort 0.1%), 1 APPL EXT BID PRN for dermatitis Allergies Coded Allergies: NSAIDs (Verified Allergy, Severe, DUE TO LIVER DISEAS, 03/27/16) Penicillins (Verified Allergy, Severe, JOINT SWELLING AND FEVER, 03/27/16) Levofloxacin (Verified Allergy, Mild, RASH, 03/27/16) pt developed erythema at site of IV injection with itching Vancomycin (Verified Allergy, Mild, HIVES, 03/27/16) HIVES Acetaminophen (Unverified Allergy, Unknown, unknown, 03/27/16) Tramadol (Verified Allergy, Unknown, NOT TO TAKE WITH KEPPRA DUE TO SEIZURE RISK, 03/27/16) Physical Exam Vital Signs Date Time Temp Pulse Resp B/P Pulse Ox O2 Delivery O2 Flow Rate FiO2 03/27/16 05:14 105 20 114/72 96 Room Air 03/27/16 04:03 115 03/27/16 03:39 37.2 107 20 153/90 97 Room Air Physical Exam Vital signs reviewed. General: Chronically ill appearing, in no significant distress. Cachectic. HEENT: Mild scleral icterus, PERRLA, neck supple. Atraumatic. Cardiovascular: Regular rate and rhythm, no extra sounds. Pulmonary: Clear to auscultation bilaterally, normal work of breathing. Abdomen: The patients abdomen is protuberant, no tympani to percussion with mild tenderness. Musculoskeletal: Atraumatic, no peripheral edema. Neurologic: Patient awake alert and oriented x 3 Skin: Warm, dry, no rash Medical Decision & Procedures ER Provider Diagnostic Interpretation: X-ray results as stated below per interpretation by me: CHEST X-RAY: Technically limited, poor inspiratory effort. Pulmonary vascular congestion, no pneumothorax, no free air in the abdomen. Laboratory Results Test 03/27/16 04:48 03/27/16 04:52 03/27/16 05:40 Anisocytosis PRESENT Prothrombin Time 13.4 SECONDS (9.0-12.0) Prothromb Time International Ratio 1.2 (0.9-1.1) Activated Partial Thromboplast Time 28.5 SECONDS (21.0-31.0) Partial Thromboplastin Ratio 1.1 Magnesium Level 2.0 mg/dl (1.8-2.4) Total Bilirubin 1.8 mg/dl (0.2-1) Direct Bilirubin 0.8 mg/dl (0-0.2) Aspartate Amino Transf (AST/SGOT) 31 U/L (15-37) Alanine Aminotransferase (ALT/SGPT) 28 U/L (12-78) Alkaline Phosphatase 160 U/L (45-117) Total Creatine Kinase 64 U/L (39-308) Creatine Kinase MB 4.3 ng/ml (0.5-3.6) Creatine Kinase MB Ratio 6.7 (0-3.0) Total Protein 6.3 gm/dl (6.4-8.2) Albumin 2.9 gm/dl (3.4-5.0) Lipase 109 U/L (73-393) Thyroid Stimulating Hormone (TSH) 5.730 uIu/ml (0.300-4.500) Bedside Troponin I 0.000 ng/ml (0-0.045) Urine Color SHANA Urine Appearance CLEAR (CLEAR) Urine pH 5.0 (4.5-7.5) Urine Specific [place] 1.015 (1.000-1.030) Urine Protein NEG (NEG) Urine Glucose (UA) 3+ (NEG) Urine Ketones NEG (NEG) Urine Occult Blood NEG (NEG) Urine Nitrite NEG (NEG) Urine Bilirubin NEG (NEG) Urine Urobilinogen NEG (NEG) Urine Leukocyte Esterase NEG (NEG) Laboratory results per my review. Medications Administered Medications (Trade) Dose Ordered Sig/Ryan Route Start Time Stop Time Status Last Admin Dose Admin Hydromorphone HCl (Dilaudid Inj) 1 mg NOW STAT IV 03/27/16 04:17 03/27/16 04:19 DC 03/27/16 04:26 1 MG Ondansetron HCl (Zofran Inj) 4 mg NOW STAT IV 03/27/16 04:17 03/27/16 04:19 DC 03/27/16 04:27 4 MG ED Course 0413: Past medical records reviewed. The patient was evaluated in room A2. A complete history and physical examination was performed. 0417: Ordered Zofran 4 mg IV, Dilaudid 1 mg IV. 0536: I discussed the case with Dr. Calvin Campos, he will evaluate the patient for further treatment. Medical Decision Differential Diagnosis include: Bowel obstruction, renal failure, kidney stone, chronic pain, pleural effusion, pulmonary embolism, portal vein thrombosis. This pt was evaluated and appeared to be in no distress. PE reveals a significant fluid collection in abd c/w ascites. Pt has mild abd tenderness, but seems to be in significant pain. Pt was medicated with IV fentanyl in route by medical command and given IV dilaudid in the ED. Lab work is c/w pt's ESLD. Case was d/w the hospitalist service for further management. Pt is aware of plan and agrees. Consults Time Called: 520 Consulting Physician: Dr. Calvin Campos Returned Call: 05 I discussed the case with Dr. Calvin Campos, he will evaluate the patient for further treatment. Impression Primary Impression: End stage liver disease Additional Impressions: Ascites Abdominal pain Scribe Attestation The scribe's documentation has been prepared under my direction and personally reviewed by me in its entirety. I confirm that the note above accurately reflects all work, treatment, procedures, and medical decision making performed by me. Departure Information Dispostion Being Evaluated By Hospitalist Prescriptions Ranitidine HCl (Ranitidine HCl) 150 Mg Tab 150 MG PO HS for 30 Days, #30 TAB Prov: Allyssa Douglass MD 03/28/16 Referrals Giulia Liu M.D. (PCP) Patient Instructions My [facility] Problem Qualifiers Additional Impressions: Ascites Ascites type: other type Qualified Codes: R18.8 - Other ascites Abdominal pain Abdominal location: unspecified location Qualified Codes: R10.9 - Unspecified abdominal pain
[2016-03-27 04:54] LABS: MEAN CORPUSCULAR HGB CONC 32.2 g/dl (32-36)
[2016-03-27 05:02] LABS: HEMATOCRIT 34.8 % (42-52); MEAN CELL VOLUME 71.3 fL (80-100); RED BLOOD COUNT 4.88 M/uL (4.7-6.1); WHITE BLOOD COUNT 6.14 K/uL (4.8-10.8)
[2016-03-27 05:09] LABS: INR 1.2 (0.9-1.1); PARTIAL THROMBOPLASTIN RATIO 1.1; PROTHROMBIN TIME (PATIENT) 13.4 SECONDS (9.0-12.0)
[2016-03-27 05:11] LABS: ALT/SGPT 28 U/L (12-78); AST/SGOT 31 U/L (15-37); BLOOD UREA NITROGEN 10 mg/dl (7-18); BUN/CREATININE RATIO 8.4 (10-20); CALCIUM 8.3 mg/dl (8.5-10.1); CARBON DIOXIDE 22 mmol/L (21-32); CHLORIDE 100 mmol/L (98-107); GLUCOSE 203 mg/dl (70-99); POTASSIUM 3.9 mmol/L (3.5-5.1); SODIUM 135 mmol/L (136-145)
[2016-03-27 05:14] LABS: ALKALINE PHOSPHATASE 160 U/L (45-117); CKMB/CK RATIO 6.7 (0-3.0)
[2016-03-27 05:19] LABS: ANISOCYTOSIS PRESENT; BASO % 0.7 %; BASO ABS # 0.04 K/uL (0-0.2); COMPLETE YES; EOS % 3.6 %; IG% 0.2 %; LYMPH % 14.2 %; LYMPH ABS # 0.87 K/uL (1.2-3.4); MONO % 10.3 %; PLATELET COUNT 86 K/uL (130-400); PLT ESTIMATE DECREASED
[2016-03-27] MEDS ORDERED: FUROSEMIDE INJ 40 MG in SYRINGE 0 ML IV STA (05:50)
[2016-03-27] MEDS ORDERED: FUROSEMIDE 40 MG/4 ML VIAL ONE (05:58)
[2016-03-27] MEDS ORDERED: PROMETHAZINE HCL INJ 12.5 MG in SODIUM CHLORIDE 0.9% 50ML 50 ML IV PRN (06:15)
[2016-03-27] MEDS ORDERED: HYDROmorphone INJ 0.5 MG/0.5 ML SYR IV ONE (06:15)
[2016-03-27] MEDS ORDERED: GLUCOSE 40% GEL 15 GM TUBE PO PRN (06:30)
[2016-03-27] MEDS ORDERED: GLUCOSE 10 TABS/TUBE PO PRN (06:30)
[2016-03-27] MEDS ORDERED: LORAZEPAM 2 MG/ML 1 ML VIAL IV PRN (06:30)
[2016-03-27] MEDS ORDERED: DEXTROSE 50% 50 ML SYR IV PRN (06:30)
[2016-03-27] MEDS ORDERED: ACETAMINOPHEN 325 MG TAB PO PRN (06:30)
[2016-03-27] MEDS ORDERED: PROMETHAZINE HCL INJ 12.5 MG in SODIUM CHLORIDE 0.9% 50ML 50 ML IV ONE (06:30)
[2016-03-27] MEDS ORDERED: GLUCAGON FOR INJ 1 MG VIAL SQ PRN (06:30)
[2016-03-27 06:38] LABS: MANUAL MICROSCOPIC REQUIRED? NO; URINE APPEARANCE CLEAR (CLEAR); URINE BILIRUBIN NEG (NEG); URINE COLOR AMBER; URINE NITRITE NEG (NEG); URINE SPECIFIC GRAVITY 1.015 (1.000-1.030); UROBILINOGEN NEG (NEG)
[2016-03-27] MEDS ORDERED: ALBUMIN HUMAN 25% 12.5 GM/50 ML VIAL IV STA (06:38)
[2016-03-27 06:40] LABS: REVIEW REQ? NO
[2016-03-27 06:45] VITALS: O2SAT 95
--- NOTE | 2016-03-27 07:28 | DIAGNOSTIC IMAGING REPORT ---
CHEST ONE VIEW PORTABLE CLINICAL HISTORY: Atypical chest pain. COMPARISON STUDY: 03/13/2016 FINDINGS: The cardiac and mediastinal contours remain stable. There are low lung volumes with bibasilar opacities, likely atelectatic. There is no failure. There are no significant pleural effusions.[ IMPRESSION: Bibasilar opacities, likely atelectatic. Electronically signed by: Pawan Garner M.D. 03/27/2016 7:27 AM Dictated Date/Time: 03/27/2016 7:26 AM
[2016-03-27 07:36] VITALS: BP 124/85; PULSE 96; TEMP 36.3; O2SAT 98
--- NOTE | 2016-03-27 07:40 | HISTORY & PHYSICAL EXAMINATION ---
DATE OF ADMISSION: 03/27/2016 PRIMARY CARE PHYSICIAN: Dr. Munoz. Hx obtained from px and records. CHIEF COMPLAINT: Abdominal pain, distention. HISTORY OF PRESENT ILLNESS: Medical history significant for cirrhosis secondary to nonalcoholic liver disease, hypertension, DM2 insulin requiring, anxiety, depression, chronic pain, chronic anemia, (baseline hemoglobin 10), hypothyroidism, history of seizure disorder, pulmonary embolism off anticoagulation because of bleeding status post IVC filter placement, chronic hyponatremia. Recent confinement last about 2 weeks ago for hyperglycemia, ascites and cirrhosis. Patient had paracentesis done 03/14/2016, 6.5 liters of ascitic fluid removed, transudative nature. Patient discharged home. The last few days the patient noted increasing abdominal distention, pain, no fever, no chills, left-sided chest pain, shortness of breath, no cough. Good BM, non-black, non-bloody. Px claims to be compliant with home meds and denies dietary indiscretion. He gained > than 20 pounds. MEDICAL HISTORY: As above. SURGERIES: Back surgery, IVC filter placement, neck surgery. HOME MEDICATIONS: Include lactulose, levothyroxine, magnesium oxide, Zofran, Protonix, Lyrica, vitamin B6, Inderal, Aldactone, Aristocort. ALLERGIES: TO VANCOMYCIN, TRAMADOL, PENCILLIN, NSAIDS. FAMILY HISTORY: Heart disease, breast cancer. PERSONAL AND SOCIAL HISTORY: Nonsmoker. denies ETOH intake. On disability. Lives with a roommate. REVIEW OF SYSTEMS: As per HPI, all other ROS negative. PHYSICAL EXAMINATION: VITAL SIGNS: Blood pressure was noted to be 150/90, pulse rate 107, RR 20, temp 37.2, sats 97 on room air. GENERAL: Noted to be uncomfortable, chronically ill. No respiratory distress. SKIN: Pallor. HEENT: partial alopecia, pale conjunctivae, dry mucosa, poor dentition. NECK: No JVD. supple CHEST: Clear to auscultation. ABDOMEN: Tense abdomen. Some tenderness on light palpation. EXTREMITIES: Minimal LE edema. no tenderness NEUROLOGIC: No gross focality. LABORATORY DATA: Hemoglobin 11.2, hematocrit 34.8, white cell count 6.14, platelets noted to be 86. Sodium 135, potassium 3.9, chloride 100, CO2 22, BUN 10, creatinine 1.2, glucose 203. Hemoglobin A1c March 2016 was 12.6. Troponin 0. Chest x-ray showed atelectasis. EKG showed rate 105, sinus tachycardia, T-wave flattening in the inferolateral leads. ASSESSMENT AND PLAN: 1. Painful ascites possible SBP, no sepsis. Decompensated cirrhosis secondary to nonalcoholic liver disease. recurrent admissions poss medication non-compliance. 2. Hypertension, slightly elevated. 3. History of pulmonary embolism, status post inferior vena cava filter. off anticoagulation because of bleeding risk. 4. DM2, insulin requiring, suboptimal control as of recent HgA1c. 5. chronic pain 6. hx seizure DSO stable on AED regimen 7. chronic hyponatremia 2 to chronic liver dse GMF diuretic tx IV Ceftriaxone and albumin until SBP ruled out by paracentesis. GI consult. Decompensated cirrhosis. Basal insulin, ISS BG goal 140-180 carb count coverage indicated for suboptimal blood sugar control. PT, OT eval. DVT prophylaxis, SCDs. RE thrombocytopenia. Full code. MTDD
[2016-03-27] MEDS: LACTULOSE SYRUP 20 GM/30 ML UDC PO SCH ×3 (07:57→20:00)
[2016-03-27] MEDS ORDERED: LEVOTHYROXINE 75 MCG TAB PO SCH (08:00)
[2016-03-27] MEDS ORDERED: INSULIN GLARGINE SOLOSTAR 100 UNITS/ML 3 ML PEN SC SCH (08:00)
[2016-03-27] MEDS ORDERED: CEFTRIAXONE SOD INJ 1 GM in DEXTROSE 5% ADD-VANTAGE 50ML 50 ML IV SCH (08:00)
[2016-03-27] MEDS: HYDROmorphone HCL 2 MG TAB PO PRN ×3 (08:05→20:16)
[2016-03-27] MEDS: ALBUMIN HUMAN 25% 12.5 GM/50 ML VIAL IV SCH ×2 (08:08→15:49)
[2016-03-27] MEDS: SPIRONOLACTONE 100 MG TAB PO SCH (08:09)
[2016-03-27] MEDS: PROPRANOLOL HCL 10 MG TAB PO SCH ×2 (08:09→20:06)
[2016-03-27] MEDS: ESCITALOPRAM OXALATE 10 MG TAB PO SCH (08:10)
[2016-03-27] MEDS: LEVETIRACETAM 500 MG TAB PO SCH ×2 (08:10→20:07)
[2016-03-27] MEDS: PANTOprazole SOD 40 MG TAB PO SCH ×2 (08:10→20:08)
[2016-03-27] MEDS: RIFAXIMIN TAB 550 MG TAB PO SCH ×2 (08:11→20:08)
[2016-03-27] MEDS: PREGABALIN 75 MG CAP PO SCH ×3 (08:14→20:15)
[2016-03-27] MEDS: ONDANSETRON INJ 2 MG/ML 2 ML VIAL IV PRN ×2 (08:14→15:49)
[2016-03-27] MEDS: INSULIN ASPART 100 UNITS/ML 3 ML PEN SC SCH ×4 (08:15→21:31)
[2016-03-27 08:24] LABS: ZZUR CULT IF INDIC CLEAN CATCH NO
[2016-03-27] MEDS: HYDROmorphone INJ 0.5 MG/0.5 ML SYR IV PRN ×4 (09:41→21:35)
--- NOTE | 2016-03-27 10:29 | Gastrointestinal Consultation ---
Gastrointestinal Consultation Date of Consultation: Mar 27, 2016 Reason for Consultation: ascites, 22 lb weight gain History of Present Illness Mr. Broderick is a 61 year old male with PMH of DMT2, BETANCOURT cirrhosis complicated by esophageal varices, prior hepatic encephalopathy BETANCOURT, Dyslipidemia, Portal Hypertension, History PE, S/P IVC filter placement, Anxiety/Depression. He presented to the ED yesterday with c/o weakness, SOB, weight gain and increasing abdominal girth. GI is consulted for treatment of BETANCOURT cirrhosis and ascites. His last paracentesis was on 03/14 with 6.5 liters of fluid taken off. He reports that he is compliant with his outpatient medications Lasix 40mg BID, Spironolactone 100mg daily, Lactulose 20grams BID, Protonix 40mg BID, Xifaxin 550mg BID. He reports that since two Sunday's ago there has been a weight gain of 22 lbs. He does not note any change in his diet, change in his salt intake or change in his fluid intake. He reports that four days ago, he began experiencing worsening lower extremity edema and ascites. He is reporting abdominal discomfort. This is explained as a constant pressure and a deep pain in his left upper quadrant. There is no radiation of pain or associated symptoms. He denies other GI symptoms. Chest XR: The cardiac and mediastinal contours remain stable. There are low lung volumes with bibasilar opacities, likely atelectatic. There is no failure. There are no significant pleural effusions Past Medical/Surgical History Medical Problems: (1) Abdominal pain Status: Acute (2) Acute hyperglycemia Status: Acute (3) Ambulatory dysfunction Status: Acute (4) Ambulatory dysfunction Status: Acute (5) Anemia Status: Acute (6) Anemia Status: Acute (7) Anemia Status: Acute (8) Ascites Status: Acute (9) Ascites Status: Acute (10) Ascites Status: Acute (11) Ascites Status: Acute (12) Ascites Status: Acute (13) Chest pain Status: Acute (14) Chronic low back pain Status: Acute (15) Cirrhosis Status: Acute (16) Cirrhosis of liver Status: Acute (17) Contusion of left foot Status: Acute (18) Dyspnea Status: Acute (19) End stage liver disease Status: Chronic (20) HHNC (hyperglycemic hyperosmolar nonketotic coma) Status: Acute (21) Hyperglycemia Status: Acute (22) Hypoglycemia Status: Acute (23) Hypoglycemia Status: Acute (24) Muscle weakness Status: Acute (25) Nausea, vomiting, and diarrhea Status: Acute (26) Thrombocytopenia Status: Acute Family History FH: CAD (coronary artery disease) FATHER FH: breast cancer MOTHER Social History Smoking Status: Never Smoker Alcohol Use: none Housing Status: lives alone Occupation Status: retired Allergies Coded Allergies: NSAIDs (Verified Allergy, Severe, DUE TO LIVER DISEAS, 03/27/16) Penicillins (Verified Allergy, Severe, JOINT SWELLING AND FEVER, 03/27/16) Levofloxacin (Verified Allergy, Mild, RASH, 03/27/16) pt developed erythema at site of IV injection with itching Vancomycin (Verified Allergy, Mild, HIVES, 03/27/16) HIVES Acetaminophen (Unverified Allergy, Unknown, unknown, 03/27/16) Tramadol (Verified Allergy, Unknown, NOT TO TAKE WITH KEPPRA DUE TO SEIZURE RISK, 03/27/16) Current Medications Home Meds and Scripts Medications Dose Route/Sig Max Daily Dose Days Date Category Dose Instructions Chronulac (Lactulose) 10 Gm/15 Ml Syrp 20 Gm PO TID 03/27/16 Reported Aristocort 0.1% (Triamcinolone Acet) 90 Appln/30 Gm Cr 1 Appl EXT BID PRN 03/27/16 Reported Novolog Penfill (Insulin Aspart) 100 Unit/Ml Inj SQ TIDM 03/13/16 Reported via SSI Lantus (Insulin Glargine) 100 Unit/Ml Inj 32 Units SC HS 03/13/16 Reported Levetiracetam (Levetiractam) 500 Mg Tab 500 Mg PO AMHS 03/13/16 Reported Dilaudid (Hydromorphone Hcl) 4 Mg Tab 1 Tab PO TID PRN 30 12/10/15 Reported Aldactone (Spironolactone) 100 Mg Tab 1 Tab PO DAILY 30 12/10/15 Reported Inderal (Propranolol HCl) 10 Mg Tab 10 Mg PO BID 06/04/15 Reported Vitamin B-6 (Pyridoxine Hcl) 25 Mg Tab 25 Mg PO HS 06/04/15 Reported Synthroid (Levothyroxine Sodium) 75 Mcg Tab 75 Mcg PO DAILY 05/07/15 Reported Lyrica (Pregabalin) 75 Mg Cap 75 Mg PO TID 05/07/15 Reported Zofran Odt (Ondansetron HCl) 4 Mg Tab 4 Mg SL Q6H PRN 05/07/15 Reported Lasix (Furosemide) 40 Mg Tab 40 Mg PO BID 12/24/14 Reported Lexapro (Escitalopram Oxalate) 10 Mg Tab 10 Mg PO DAILY 10/30/14 Reported Protonix (Pantoprazole) 40 Mg Tab 40 Mg PO BID 08/04/14 Reported Xifaxan (Rifaximin) 550 Mg Tab 550 Mg PO AMHS 05/20/13 Reported ONE AT BREAKFAST AND ONE AT SUPPER. Mag-Ox (Magnesium Oxide) 400 Mg Tab 400 Mg PO BID 09/29/11 Reported Review of Systems Constitutional: No chills, No fever ENT: No hearing loss Respiratory: + shortness of breath, No cough Cardiac: + edema, No chest pain Abdomen: + pain, No GI bleeding, No constipation, No diarrhea, No nausea, No vomiting Skin: No itch, No rash Physical Exam Date Time Temp Pulse Resp B/P Pulse Ox O2 Delivery O2 Flow Rate FiO2 03/27/16 07:36 36.3 96 18 124/85 98 03/27/16 06:45 96 20 114/72 95 03/27/16 05:14 105 20 114/72 96 Room Air 03/27/16 04:03 115 03/27/16 03:39 37.2 107 20 153/90 97 Room Air General Appearance: no apparent distress Eyes: PERRL ENT: hearing grossly normal Neck: supple, trachea midline Respiratory/Chest: lungs clear, normal breath sounds, no respiratory distress, no accessory muscle use Cardiovascular: regular rate, rhythm, no gallop, no JVD, no murmur Abdomen: normal bowel sounds, no organomegaly, no pulsatile mass, + distended, + pertinent finding (ascites, not tense) Neurologic/Psych: alert, normal mood/affect, oriented x 3 Skin: normal color, warm/dry, no rash Laboratory Results Last 24 Hours Test 03/27/16 04:48 03/27/16 04:52 03/27/16 05:40 03/27/16 07:31 White Blood Count 6.14 K/uL Red Blood Count 4.88 M/uL Hemoglobin 11.2 g/dL Hematocrit 34.8 % Mean Corpuscular Volume 71.3 fL Mean Corpuscular Hemoglobin 23.0 pg Mean Corpuscular Hemoglobin Concent 32.2 g/dl Platelet Count 86 K/uL Neutrophils (%) (Auto) 71.0 % Lymphocytes (%) (Auto) 14.2 % Monocytes (%) (Auto) 10.3 % Eosinophils (%) (Auto) 3.6 % Basophils (%) (Auto) 0.7 % Neutrophils # (Auto) 4.37 K/uL Lymphocytes # (Auto) 0.87 K/uL Monocytes # (Auto) 0.63 K/uL Eosinophils # (Auto) 0.22 K/uL Basophils # (Auto) 0.04 K/uL RDW Standard Deviation 51.6 fL RDW Coefficient of Variation 20.0 % Immature Granulocyte % (Auto) 0.2 % Immature Granulocyte # (Auto) 0.01 K/uL Platelet Estimate DECREASED Anisocytosis PRESENT Prothrombin Time 13.4 SECONDS Prothromb Time International Ratio 1.2 Activated Partial Thromboplast Time 28.5 SECONDS Partial Thromboplastin Ratio 1.1 Sodium Level 135 mmol/L Potassium Level 3.9 mmol/L Chloride Level 100 mmol/L Carbon Dioxide Level 22 mmol/L Anion Gap 13.0 mmol/L Blood Urea Nitrogen 10 mg/dl Creatinine 1.20 mg/dl Estimated GFR () 74.7 Estimated GFR (Non- 64.4 BUN/Creatinine Ratio 8.4 Random Glucose 203 mg/dl Calcium Level 8.3 mg/dl Magnesium Level 2.0 mg/dl Total Bilirubin 1.8 mg/dl Direct Bilirubin 0.8 mg/dl Aspartate Amino Transf (AST/SGOT) 31 U/L Alanine Aminotransferase (ALT/SGPT) 28 U/L Alkaline Phosphatase 160 U/L Total Creatine Kinase 64 U/L Creatine Kinase MB 4.3 ng/ml Creatine Kinase MB Ratio 6.7 Total Protein 6.3 gm/dl Albumin 2.9 gm/dl Lipase 109 U/L Thyroid Stimulating Hormone (TSH) 5.730 uIu/ml Bedside Troponin I 0.000 ng/ml Urine Color SHANA Urine Appearance CLEAR Urine pH 5.0 Urine Specific [place] 1.015 Urine Protein NEG Urine Glucose (UA) 3+ Urine Ketones NEG Urine Occult Blood NEG Urine Nitrite NEG Urine Bilirubin NEG Urine Urobilinogen NEG Urine Leukocyte Esterase NEG Bedside Glucose 75 mg/dl Impression Patient is a 61 year old male with SOB, weight gain and worsening ascites. His last paracentesis was on 03/14 with 6L of fluid take off. He is reporting medication compliance and no change in his sodium/fluid intake. His liver function is stable since last admission. Recurrent ascites likely related to decompensating BETANCOURT cirrhosis - suggest hepatology referral for TIPS procedure. Plan 25 gm 25% albumin before paracentesis US guided paracentesis w/ labs 25 gm 25% albumin after paracentesis Lasix 40mg BID Spironolactone 100mg daily Lactulose 20grams BID Xifaxin 550mg BID Protonix 40mg BID Attg addendum: I interviewed and examined pt, reviewed chart and labs. Pt admitted again with ascites. Please arrange for paracentesis. Call us with with questions.
[2016-03-27] MEDS ORDERED: ALBUMIN HUMAN 25% 12.5 GM/50 ML VIAL IV SCH (12:00)
[2016-03-27] MEDS ORDERED: NURSING VERBAL MED ORDER ONE (13:15)
--- NOTE | 2016-03-27 14:48 | Progress Note ---
Medicine Progress Note Date & Time of Visit: Mar 27, 2016 at 14:20. Subjective Pt was seen and examined Sitting in bed with no acute distress Pt said that he is having chest pain he said that the pain is different from his usually one He is requested for pain med with benadryl denies any fever, dizziness and sob Objective Last 8 Hrs Date Time Temp Pulse Resp B/P Pulse Ox O2 Delivery O2 Flow Rate FiO2 03/27/16 07:36 36.3 96 18 124/85 98 03/27/16 06:45 96 20 114/72 95 Physical Exam: General- no acute distress Head- atraumatic Eyes- PERRL, EOMI ENT- oropharynx clear Neck- supple, no JVD Lungs- clear to auscultation and percussion Heart- regular rhythm Abdomen- +ascites, +distended Extremities- no calf tenderness Neuro- alert, oriented x 3; PERRL, EOMI Skin- warm & dry Laboratory Results: Last 24 Hours Test 03/27/16 04:48 03/27/16 04:52 03/27/16 05:40 03/27/16 07:31 White Blood Count 6.14 K/uL Red Blood Count 4.88 M/uL Hemoglobin 11.2 g/dL Hematocrit 34.8 % Mean Corpuscular Volume 71.3 fL Mean Corpuscular Hemoglobin 23.0 pg Mean Corpuscular Hemoglobin Concent 32.2 g/dl Platelet Count 86 K/uL Neutrophils (%) (Auto) 71.0 % Lymphocytes (%) (Auto) 14.2 % Monocytes (%) (Auto) 10.3 % Eosinophils (%) (Auto) 3.6 % Basophils (%) (Auto) 0.7 % Neutrophils # (Auto) 4.37 K/uL Lymphocytes # (Auto) 0.87 K/uL Monocytes # (Auto) 0.63 K/uL Eosinophils # (Auto) 0.22 K/uL Basophils # (Auto) 0.04 K/uL RDW Standard Deviation 51.6 fL RDW Coefficient of Variation 20.0 % Immature Granulocyte % (Auto) 0.2 % Immature Granulocyte # (Auto) 0.01 K/uL Platelet Estimate DECREASED Anisocytosis PRESENT Prothrombin Time 13.4 SECONDS Prothromb Time International Ratio 1.2 Activated Partial Thromboplast Time 28.5 SECONDS Partial Thromboplastin Ratio 1.1 Sodium Level 135 mmol/L Potassium Level 3.9 mmol/L Chloride Level 100 mmol/L Carbon Dioxide Level 22 mmol/L Anion Gap 13.0 mmol/L Blood Urea Nitrogen 10 mg/dl Creatinine 1.20 mg/dl Estimated GFR () 74.7 Estimated GFR (Non- 64.4 BUN/Creatinine Ratio 8.4 Random Glucose 203 mg/dl Calcium Level 8.3 mg/dl Magnesium Level 2.0 mg/dl Total Bilirubin 1.8 mg/dl Direct Bilirubin 0.8 mg/dl Aspartate Amino Transf (AST/SGOT) 31 U/L Alanine Aminotransferase (ALT/SGPT) 28 U/L Alkaline Phosphatase 160 U/L Total Creatine Kinase 64 U/L Creatine Kinase MB 4.3 ng/ml Creatine Kinase MB Ratio 6.7 Total Protein 6.3 gm/dl Albumin 2.9 gm/dl Lipase 109 U/L Thyroid Stimulating Hormone (TSH) 5.730 uIu/ml Bedside Troponin I 0.000 ng/ml Urine Color SHANA Urine Appearance CLEAR Urine pH 5.0 Urine Specific [place] 1.015 Urine Protein NEG Urine Glucose (UA) 3+ Urine Ketones NEG Urine Occult Blood NEG Urine Nitrite NEG Urine Bilirubin NEG Urine Urobilinogen NEG Urine Leukocyte Esterase NEG Bedside Glucose 75 mg/dl Test 03/27/16 11:22 03/27/16 11:56 03/27/16 12:50 Bedside Glucose 58 mg/dl 104 mg/dl Troponin I < 0.015 ng/ml Assessment & Plan SOB Mostly related to ascites Cxr showed Bibasilar opacities, likely atelectatic. 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 Last paracentesis done on 03/14 where 6.5 L fluid removed Schedule for u/s paracentesis will give albumin before and after paracentesis Continue spironolactone, lasix, Xifaxan, lactulose and pantoprazole continue rocephin for now until ascites fluid negative GI on board recommends to refer to an hepatology for TIPS procedure. Limited Na/fluid intake Chest pain Mostly atypical possible related to his chronic pain stat troponin normal and stat EKG shown no ST changes Continue monitor Chronic pain syndrome Continue pain med HTN BP stable continue monitor BP History of pulmonary embolism status post inferior vena cava filter. Not on anticoagulant because of bleeding risk Stable Hypothyroidism TSH 5.7 will increase levothyroxine to 88mcg daily Repeat TSH in 6 to 8 weeks DM type 2 Recent Hba1c 12.6 (03/19) continue insulin monitor BS Hx seizure denies any seizure activity Continue Keppra seizure precaution DVT px on SCD Code status Full code Consultants: Gastro Procedures: u/s paracentesis Current Inpatient Medications: Current Inpatient Medications Medications (Trade) Dose Ordered Sig/Ryan Route Start Time Stop Time Status Last Admin Dose Admin Promethazine HCl/ Sodium Chloride (Phenergan Inj/ Nss 50ml) 50.5 ml @ 204 mls/hr Q6H PRN IV 03/27/16 06:15 04/26/16 06:14 Hydromorphone HCl 0.5 mg 0.5 mg Q3H PRN IV 03/27/16 06:15 04/10/16 06:14 03/27/16 13:17 0.5 MG Ceftriaxone Sodium/Dextrose (Rocephin Inj/ Dextrose Add-[place] 50ML) 50 ml @ 100 mls/hr Q24H IV 03/27/16 08:00 04/06/16 06:29 03/27/16 09:41 100 MLS/HR Albumin Human (Albumin 25%) 12.5 gm Q6H IV 03/27/16 08:00 03/30/16 06:29 03/27/16 08:08 12.5 GM Escitalopram Oxalate (Lexapro Tab) 10 mg DAILY PO 03/27/16 08:00 04/26/16 08:59 03/27/16 08:10 10 MG Furosemide (Lasix Tab) 40 mg BID17 PO 03/27/16 17:00 04/26/16 16:59 Hydromorphone HCl (Dilaudid Tab) 4 mg TID PRN PO 03/27/16 06:30 04/10/16 06:29 03/27/16 08:05 4 MG Insulin Glargine (Lantus Solostar Pen) 5 unit BID SC 03/27/16 08:00 04/26/16 07:59 Lactulose (Chronulac Syrup) 20 gm TID PO 03/27/16 08:00 04/26/16 08:59 Levetiracetam (Keppra Tab) 500 mg AMHS PO 03/27/16 08:00 04/26/16 08:59 03/27/16 08:10 500 MG Levothyroxine Sodium (Synthroid Tab) 75 mcg DAILYBB PO 03/27/16 08:00 04/26/16 07:59 03/27/16 08:08 75 MCG Pantoprazole Sodium (Protonix Tab) 40 mg BID PO 03/27/16 08:00 04/26/16 08:59 03/27/16 08:10 40 MG Pregabalin (Lyrica Cap) 75 mg TID PO 03/27/16 08:00 04/26/16 08:59 03/27/16 13:17 75 MG Propranolol HCl (Inderal Tab) 10 mg BID PO 03/27/16 08:00 04/26/16 08:59 03/27/16 08:09 10 MG Rifaximin (Xifaxan Tab) 550 mg AMHS PO 03/27/16 08:00 04/26/16 08:59 03/27/16 08:11 550 MG Spironolactone (Aldactone Tab) 100 mg DAILY PO 03/27/16 08:00 04/26/16 08:59 03/27/16 08:09 100 MG Pyridoxine HCl (Vitamin B-6 Tab) 25 mg HS PO 03/27/16 22:00 04/26/16 21:59 Acetaminophen (Tylenol Tab) 325 mg Q6H PRN PO 03/27/16 06:30 04/26/16 06:29 Insulin Aspart (novoLOG ASPART) SLIDING SCALE If C... ACHS SC 03/27/16 07:30 04/26/16 07:29 Glucose (Glucose 40% Gel) 15-30 GRAMS 15 GRAMS... UD PRN PO 03/27/16 06:30 04/26/16 06:29 Glucose (Glucose Chew Tab) 4-8 Tablets 4 Tabl... UD PRN PO 03/27/16 06:30 04/26/16 06:29 Dextrose (Dextrose 50% 50ML Syringe) 25-50ML OF 50% DW IV FOR... UD PRN IV 03/27/16 06:30 04/26/16 06:29 Glucagon (Glucagon Inj) 1 mg UD PRN SQ 03/27/16 06:30 04/26/16 06:29 Lorazepam (Ativan Inj) 0.5 mg Q4H PRN IV 03/27/16 06:30 04/26/16 06:29 Ondansetron HCl (Zofran Inj) 4 mg Q6H PRN IV 03/27/16 06:45 04/26/16 06:44 03/27/16 08:14 4 MG Diphenhydramine HCl (Benadryl Cap) 25 mg Q8H PRN PO 03/27/16 13:15 04/26/16 13:14
--- NOTE | 2016-03-27 15:40 | DIAGNOSTIC IMAGING REPORT ---
ULTRASOUND-GUIDED THERAPEUTIC and diagnostic PARACENTESIS: HISTORY: Ascites Procedure: The procedure and its risks, benefits and alternatives were discussed with the patient and written informed consent was obtained. Preliminary ultrasound of the abdomen was performed to determine a safe needle entry site. The left lower quadrant was prepped and draped in the usual sterile fashion. 1% Lidocaine was used for local anesthesia. A paracentesis needle-sheath was inserted into the peritoneal space using ultrasound guidance. The needle was removed and the sheath was connected to tubing and a vacuum suction device. A total of 10 liters of cloudy yellow ascites was aspirated. The sheath was removed and a sterile dressing applied. The patient tolerated the procedure well and there were no immediate complications. IMPRESSION: Ultrasound-guided therapeutic and diagnostic paracentesis with aspiration of 10 liters of ascites. A 1 L sample was sent to the laboratory for further evaluation. Electronically signed by: Tj Weston M.D. 03/27/2016 3:39 PM Dictated Date/Time: 03/27/2016 3:38 PM
[2016-03-27 16:00] VITALS: BP 110/67; PULSE 73; TEMP 36.6; O2SAT 93
[2016-03-27 16:40] LABS: PERIT FL WBC 58 /uL (0-300); PERITONEAL FLUID RBC < 3000 /uL
[2016-03-27] MEDS: FUROSEMIDE 40 MG TAB PO SCH (16:58)
[2016-03-27] MEDS ORDERED: INSULIN GLARGINE SOLOSTAR 100 UNITS/ML 3 ML PEN SC ONE (20:29)
[2016-03-27] MEDS ORDERED: PYRIDOXINE HCL 50 MG TAB PO SCH (22:00)
[2016-03-28 00:06] VITALS: BP 113/67; PULSE 66; TEMP 36.7; O2SAT 96
[2016-03-28] MEDS: HYDROmorphone INJ 0.5 MG/0.5 ML SYR IV PRN (05:38)
[2016-03-28] MEDS ORDERED: LEVOTHYROXINE 88 MCG TAB PO SCH (06:30)
[2016-03-28 07:19] LABS: BLOOD UREA NITROGEN 10 mg/dl (7-18); BUN/CREATININE RATIO 9.3 (10-20); CALCIUM 7.7 mg/dl (8.5-10.1); CARBON DIOXIDE 27 mmol/L (21-32); CHLORIDE 100 mmol/L (98-107); GLUCOSE 133 mg/dl (70-99); POTASSIUM 4.8 mmol/L (3.5-5.1); SODIUM 135 mmol/L (136-145)
[2016-03-28 07:25] VITALS: BP 96/57; PULSE 64; TEMP 36.7; O2SAT 95
[2016-03-28 07:50] LABS: HEMATOCRIT 28.5 % (42-52); MEAN CELL VOLUME 71.6 fL (80-100); MEAN CORPUSCULAR HEMOGLOBIN 22.9 pg (25-34); MEAN CORPUSCULAR HGB CONC 31.9 g/dl (32-36); RED BLOOD COUNT 3.98 M/uL (4.7-6.1); WHITE BLOOD COUNT 4.48 K/uL (4.8-10.8)
[2016-03-28] MEDS: ONDANSETRON INJ 2 MG/ML 2 ML VIAL IV PRN (07:54)
[2016-03-28] MEDS: HYDROmorphone HCL 2 MG TAB PO PRN ×2 (07:54→13:11)
[2016-03-28] MEDS: LACTULOSE SYRUP 20 GM/30 ML UDC PO SCH ×2 (07:56→13:15)
[2016-03-28] MEDS: RIFAXIMIN TAB 550 MG TAB PO SCH (07:58)
[2016-03-28] MEDS: SPIRONOLACTONE 100 MG TAB PO SCH (07:59)
[2016-03-28] MEDS: PANTOprazole SOD 40 MG TAB PO SCH (07:59)
[2016-03-28] MEDS: ESCITALOPRAM OXALATE 10 MG TAB PO SCH (07:59)
[2016-03-28] MEDS: LEVETIRACETAM 500 MG TAB PO SCH (08:00)
[2016-03-28] MEDS: PROPRANOLOL HCL 10 MG TAB PO SCH (08:00)
[2016-03-28] MEDS ORDERED: INSULIN GLARGINE SOLOSTAR 100 UNITS/ML 3 ML PEN SC SCH (08:00)
[2016-03-28] MEDS: FUROSEMIDE 40 MG TAB PO SCH ×2 (08:01→16:50)
[2016-03-28] MEDS: PREGABALIN 75 MG CAP PO SCH ×2 (08:08→13:14)
[2016-03-28 08:20] LABS: PLATELET COUNT 59 K/uL (130-400)
[2016-03-28 08:22] LABS: BASO ABS # 0.09 K/uL (0-0.2); COMPLETE YES; EOS % 6.3 %; IG% 0.4 %; LYMPH % 21.4 %; LYMPH ABS # 0.96 K/uL (1.2-3.4); MICROCYTOSIS PRESENT; MONO % 15.2 %; NEUT % 54.7 %; PLT ESTIMATE DECREASED
[2016-03-28] MEDS: INSULIN ASPART 100 UNITS/ML 3 ML PEN SC SCH ×3 (08:36→16:52)
--- NOTE | 2016-03-28 10:13 | Gastroenterology Progress Note ---
Progress Note Date of Service: Mar 28, 2016 Subjective Pt evaluation today including: conversation w/ patient, physical exam, chart review, lab review Mr. Broderick feels better from having had his paracentesis with 10L off. There was a report of chest pain last night with stable EKG and non-elevated troponin. He reports the pain is epigastric and under his left breast. It does not radiate. IV dilaudid makes this better. Worse with certain foods, spicy& tomatoes and laying flat. Review of Systems Constitutional: No chills, No fever Respiratory: No cough, No shortness of breath Cardiac: No chest pain, No edema Abdomen: + pain, No GI bleeding, No constipation, No diarrhea, No nausea, No vomiting Medications Current Inpatient Medications Medications (Trade) Dose Ordered Sig/Ryan Route Start Time Stop Time Status Last Admin Dose Admin Promethazine HCl/ Sodium Chloride (Phenergan Inj/ Nss 50ml) 50.5 ml @ 204 mls/hr Q6H PRN IV 03/27/16 06:15 04/26/16 06:14 Escitalopram Oxalate (Lexapro Tab) 10 mg DAILY PO 03/27/16 08:00 04/26/16 08:59 03/28/16 07:59 10 MG Furosemide (Lasix Tab) 40 mg BID17 PO 03/27/16 17:00 04/26/16 16:59 03/27/16 16:58 40 MG Hydromorphone HCl (Dilaudid Tab) 4 mg TID PRN PO 03/27/16 06:30 04/10/16 06:29 03/28/16 07:54 4 MG Lactulose (Chronulac Syrup) 20 gm TID PO 03/27/16 08:00 04/26/16 08:59 03/28/16 07:56 20 GM Levetiracetam (Keppra Tab) 500 mg AMHS PO 03/27/16 08:00 04/26/16 08:59 03/28/16 08:00 500 MG Pantoprazole Sodium (Protonix Tab) 40 mg BID PO 03/27/16 08:00 04/26/16 08:59 03/28/16 07:59 40 MG Pregabalin (Lyrica Cap) 75 mg TID PO 03/27/16 08:00 04/26/16 08:59 03/28/16 08:08 75 MG Propranolol HCl (Inderal Tab) 10 mg BID PO 03/27/16 08:00 04/26/16 08:59 03/27/16 20:06 10 MG Rifaximin (Xifaxan Tab) 550 mg AMHS PO 03/27/16 08:00 04/26/16 08:59 03/28/16 07:58 550 MG Spironolactone (Aldactone Tab) 100 mg DAILY PO 03/27/16 08:00 04/26/16 08:59 03/28/16 07:59 100 MG Pyridoxine HCl (Vitamin B-6 Tab) 25 mg HS PO 03/27/16 22:00 04/26/16 21:59 03/27/16 20:09 25 MG Acetaminophen (Tylenol Tab) 325 mg Q6H PRN PO 03/27/16 06:30 04/26/16 06:29 Insulin Aspart (novoLOG ASPART) SLIDING SCALE If C... ACHS SC 03/27/16 07:30 04/26/16 07:29 03/27/16 21:31 2 UNITS Glucose (Glucose 40% Gel) 15-30 GRAMS 15 GRAMS... UD PRN PO 03/27/16 06:30 04/26/16 06:29 Glucose (Glucose Chew Tab) 4-8 Tablets 4 Tabl... UD PRN PO 03/27/16 06:30 04/26/16 06:29 Dextrose (Dextrose 50% 50ML Syringe) 25-50ML OF 50% DW IV FOR... UD PRN IV 03/27/16 06:30 04/26/16 06:29 Glucagon (Glucagon Inj) 1 mg UD PRN SQ 03/27/16 06:30 04/26/16 06:29 Lorazepam (Ativan Inj) 0.5 mg Q4H PRN IV 03/27/16 06:30 04/26/16 06:29 Ondansetron HCl (Zofran Inj) 4 mg Q6H PRN IV 03/27/16 06:45 04/26/16 06:44 03/28/16 07:54 4 MG Diphenhydramine HCl (Benadryl Cap) 25 mg Q8H PRN PO 03/27/16 13:15 04/26/16 13:14 Levothyroxine Sodium (Synthroid Tab) 88 mcg DAILYBB PO 03/28/16 06:30 04/27/16 06:29 03/28/16 05:36 88 MCG Insulin Glargine (Lantus Solostar Pen) 20 unit BID SC 03/28/16 08:00 04/27/16 07:59 03/28/16 08:38 20 UNIT Objective Vital Signs Date Time Temp Pulse Resp B/P Pulse Ox O2 Delivery O2 Flow Rate FiO2 03/28/16 08:00 Room Air 03/28/16 07:25 36.7 64 20 96/57 95 Room Air 03/28/16 00:50 Room Air 03/28/16 00:06 36.7 66 20 113/67 96 Room Air 03/27/16 16:00 Room Air 03/27/16 16:00 36.6 73 20 110/67 93 Physical Exam General Appearance: no apparent distress Eyes: PERRL ENT: hearing grossly normal Neck: supple, trachea midline Respiratory/Chest: lungs clear, no respiratory distress, no accessory muscle use Cardiovascular: no edema, no gallop, no JVD, no murmur Abdomen: normal bowel sounds, soft, no organomegaly, no pulsatile mass Neurologic/Psych: alert, normal mood/affect, oriented x 3 Skin: normal color, no jaundice, warm/dry Laboratory Results Last 24 Hours Test 03/27/16 11:22 03/27/16 11:56 03/27/16 12:50 03/27/16 14:40 Bedside Glucose 58 mg/dl 104 mg/dl Troponin I < 0.015 ng/ml Peritoneal Fluid Color PALE YELLOW Peritoneal Fluid Appearance HAZY Peritoneal Fluid WBC 58 /uL Peritoneal Fluid RBC < 3000 /uL Peritoneal Fld Mononuclear WBCs (%) 91.3 % Peritoneal Fld Polynuclear WBCs (%) 8.7 % Peritoneal Fluid Total Protein 0.9 g/dl Peritoneal Fluid Albumin < 0.6 g/dl Peritoneal Fluid Glucose 222 mg/dl Test 03/27/16 16:50 03/27/16 20:26 03/28/16 06:25 03/28/16 07:34 Bedside Glucose 150 mg/dl 216 mg/dl 133 mg/dl Sodium Level 135 mmol/L Potassium Level 4.8 mmol/L Chloride Level 100 mmol/L Carbon Dioxide Level 27 mmol/L Anion Gap 8.0 mmol/L Blood Urea Nitrogen 10 mg/dl Creatinine 1.10 mg/dl Estimated GFR () 82.9 Estimated GFR (Non- 71.6 BUN/Creatinine Ratio 9.3 Random Glucose 133 mg/dl Calcium Level 7.7 mg/dl Test 03/28/16 07:42 White Blood Count 4.48 K/uL Red Blood Count 3.98 M/uL Hemoglobin 9.1 g/dL Hematocrit 28.5 % Mean Corpuscular Volume 71.6 fL Mean Corpuscular Hemoglobin 22.9 pg Mean Corpuscular Hemoglobin Concent 31.9 g/dl Platelet Count 59 K/uL Neutrophils (%) (Auto) 54.7 % Lymphocytes (%) (Auto) 21.4 % Monocytes (%) (Auto) 15.2 % Eosinophils (%) (Auto) 6.3 % Basophils (%) (Auto) 2.0 % Neutrophils # (Auto) 2.45 K/uL Lymphocytes # (Auto) 0.96 K/uL Monocytes # (Auto) 0.68 K/uL Eosinophils # (Auto) 0.28 K/uL Basophils # (Auto) 0.09 K/uL RDW Standard Deviation 51.9 fL RDW Coefficient of Variation 19.7 % Immature Granulocyte % (Auto) 0.4 % Immature Granulocyte # (Auto) 0.02 K/uL Platelet Estimate DECREASED Microcytosis PRESENT Assessment and Plan Mr. Broderick was admitted with abdominal discomfort and ascites. He had 10L off yesterday. He is reporting chest pain, EKG and troponin negative. He is taking PPI BID. Chest pain is worse laying flat & triggered by certrain foods. Eat smaller, more frequent meals Elevate HOB PPI BID Zantac at night avoid trigger foods repeat EGD as an O/P for variceal screening when due - last EGD appears to be GI will contact pt for f/u reflux GI signing off.
[2016-03-28] MEDS ORDERED: ZNT150 PO (10:54)
--- NOTE | 2016-03-28 11:05 | Discharge Instructions ---
Discharge Instructions Admission Reason for Admission: Ascites Discharge Discharge Diagnosis / Problem: Acites Discharge Goals Goal(s): Decrease discomfort Activity Recommendations Activity Limitations: resume your previous activity . Instructions / Follow-Up Instructions / Follow-Up Please follow up with Family Medicine Dr. Munoz on March 30 at 11:10am. You will be contacted by Gastroenterology regarding a follow up appointment. Current Hospital Diet Patient's current hospital diet: Low Sodium Diet (2gm Na) Discharge Diet Recommended Diet: Low Sodium Diet (2gm Na), Diabetes Type 2 Diet Fluid Restriction: 1500 ml (6 cups) Pending Studies Studies pending at discharge: no Laboratory Results Hemoglobin A1c Test 03/19/16 05:52 Range/Units Estimated Average Glucose 315 mg/dl Hemoglobin A1c 12.6 H 4.5-5.6 % Medical Emergencies . Who to Call and When: Medical Emergencies: If at any time you feel your situation is an emergency, please call 911 immediately. . Non-Emergent Contact Non-Emergency issues call your: Primary Care Provider, Client Strategist . . "Provider Documentation" section prepared by Allyssa Gordon. VTE Core Measure Inpt VTE Proph given/why not?: SCD's [place] Drug Monitoring Program Search Results: patient reviewed within database Drug Monitoring Findings: Three different prescribers for Dilaudid within the past year. All prescriptions filled at the same pharmacy.
[2016-03-28 13:37] VITALS: BP 100/66; PULSE 74; O2SAT 95
[2016-03-28 15:40] VITALS: BP 113/69; PULSE 66; TEMP 36.5; O2SAT 98
[2016-03-28 15:47] VITALS: BP 113/69; PULSE 66; TEMP 36.5; O2SAT 98
--- NOTE | 2016-03-28 21:48 | Discharge Summary ---
Discharge Summary Date of Service Mar 28, 2016. Discharge Summary Admission Date: Mar 27, 2016 at 05:51 Discharge Date: Mar 28, 2016 Discharge Disposition: Home with services Principal Diagnosis: Ascites Procedures: u/s paracentesis with 10L fluid removed Consultations: Gastroenterology Medication Reconciliation New Medications: Ranitidine HCl (Ranitidine HCl) 150 Mg Tab 150 MG PO HS for 30 Days, #30 TAB Continued Medications: Escitalopram (Lexapro) 10 Mg Tab 10 MG PO DAILY, TAB Furosemide (Lasix) 40 Mg Tab 40 MG PO BID, TAB Hydromorphone Hcl (Dilaudid) 4 Mg Tab 1 TAB PO TID PRN for Pain for 30 Days, #90 TAB Insulin Aspart (Novolog Penfill) 100 Unit/Ml Inj SQ TIDM via SSI Insulin Glargine (Lantus) 100 Unit/Ml Inj 32 UNITS SC HS, VIAL Lactulose (Chronulac) 10 Gm/15 Ml Syrp 20 GM PO TID Levetiractam (Levetiracetam) 500 Mg Tab 500 MG PO AMHS Levothyroxine Sodium (Synthroid) 75 Mcg Tab 75 MCG PO DAILY, TAB Magnesium Oxide (Mag-Ox) 400 Mg Tab 400 MG PO BID Ondasetron Odt (Zofran Odt) 4 Mg Tab 4 MG SL Q6H PRN for Nausea or Vomiting, TAB Pantoprazole (Protonix) 40 Mg Tab 40 MG PO BID, TAB Pregabalin (Lyrica) 75 Mg Cap 75 MG PO TID, CAP Propranolol (Inderal) 10 Mg Tab 10 MG PO BID, TAB Pyridoxine Hcl (Vitamin B-6) 25 Mg Tab 25 MG PO HS Rifaximin (Xifaxan) 550 Mg Tab 550 MG PO AMHS ONE AT BREAKFAST AND ONE AT SUPPER. Spironolactone (Aldactone) 100 Mg Tab 1 TAB PO DAILY for 30 Days, #30 TAB 11 Refills Triamcinolone Acet (Aristocort 0.1%) 90 Appln/30 Gm Cr 1 APPL EXT BID PRN for dermatitis Admission Information HPI (per Admitting provider): Medical history significant for cirrhosis secondary to nonalcoholic liver disease, hypertension, DM2 insulin requiring, anxiety, depression, chronic pain, chronic anemia, (baseline hemoglobin 10), hypothyroidism, history of seizure disorder, pulmonary embolism off anticoagulation because of bleeding status post IVC filter placement, chronic hyponatremia. Recent confinement last about 2 weeks ago for hyperglycemia, ascites and cirrhosis. Patient had paracentesis done 03/14/2016, 6.5 liters of ascitic fluid removed, transudative nature. Patient discharged home. The last few days the patient noted increasing abdominal distention, pain, no fever, no chills, left-sided chest pain, shortness of breath, no cough. Good BM, non-black, non-bloody. Px claims to be compliant with home meds and denies dietary indiscretion. He gained > than 20 pounds. Physical Exam (per Admitting): VITAL SIGNS: Blood pressure was noted to be 150/90, pulse rate 107, RR 20, temp 37.2, sats 97 on room air. GENERAL: Noted to be uncomfortable, chronically ill. No respiratory distress. SKIN: Pallor. HEENT: partial alopecia, pale conjunctivae, dry mucosa, poor dentition. NECK: No JVD. supple CHEST: Clear to auscultation. ABDOMEN: Tense abdomen. Some tenderness on light palpation. EXTREMITIES: Minimal LE edema. no tenderness NEUROLOGIC: No gross focality. Hospital Course Patient admitted with recurrent ascites. GI was consulted. Patient underwent paracentesis with 10L fluid removed. Fluid analysis was negative for SBP. Patient was continued on all of his home medications; no changes were made with the exception of the addition of ranitidine for possible GERD. Patient deemed stable for discharge with Family Medicine and GI follow up. PE on discharge: General- awake; alert; NAD Eyes- EOMI; no scleral icterus Neck- no stridor; trachea midline Lungs- CTA bilaterally; no wheezes/crackles Heart- RRR; no m/r/g Abdomen- soft; mildly distended; NT; nBS; reducible umbilical hernia Back- no gross abnormalities Extremities- no c/c/e; no deformity Neuro- no gross focal deficits Skin- no appreciable rash . Total time spent on discharge = This includes examination of the patient, discharge planning, medication reconciliation, and communication with other providers. Discharge Instructions Discharge Instructions Admission Reason for Admission: Ascites Discharge Discharge Diagnosis / Problem: Acites Discharge Goals Goal(s): Decrease discomfort Activity Recommendations Activity Limitations: resume your previous activity . Instructions / Follow-Up Instructions / Follow-Up Please follow up with Family Medicine Dr. Munoz on March 30 at 11:10am. You will be contacted by Gastroenterology regarding a follow up appointment. Current Hospital Diet Patient's current hospital diet: Low Sodium Diet (2gm Na) Discharge Diet Recommended Diet: Low Sodium Diet (2gm Na), Diabetes Type 2 Diet Fluid Restriction: 1500 ml (6 cups) Pending Studies Studies pending at discharge: no Laboratory Results Hemoglobin A1c Test 03/19/16 05:52 Range/Units Estimated Average Glucose 315 mg/dl Hemoglobin A1c 12.6 H 4.5-5.6 % Medical Emergencies . Who to Call and When: Medical Emergencies: If at any time you feel your situation is an emergency, please call 911 immediately. . Non-Emergent Contact Non-Emergency issues call your: Primary Care Provider, Ada Accommodation Consultant . . "Provider Documentation" section prepared by Allyssa Gordon. VTE Core Measure Inpt VTE Proph given/why not?: [place]CD's [place] Drug Monitoring Program Search Results: patient reviewed within database Drug Monitoring Findings: Three different prescribers for Dilaudid within the past year. All prescriptions filled at the same pharmacy. Additional Copies To Chacha Munoz D.O.
[2016-03-28] MEDS ORDERED: RANITIDINE HCL 150 MG TAB PO SCH (22:00)
[2016-04-07] MEDS ORDERED: DLD2 PO (16:03)
[2016-04-07] MEDS ORDERED: LSX20 PO (16:03)
[2016-04-10] MEDS ORDERED: BND25X PO (13:11)
[2016-05-23] MEDS ORDERED: HYDR4TAB78 PO (09:03)
[2016-07-01] MEDS ORDERED: MAGN400T5 PO (01:36)
[2016-07-01] MEDS ORDERED: DIPH50TA10 PO (02:00)
[2016-07-01] MEDS ORDERED: TRMCR130WC EXT (03:58)
[2016-07-01] MEDS ORDERED: LACT10SO17 PO (04:04)
[2016-07-01] MEDS ORDERED: PYRI25TA PO (04:52)
[2016-07-01] MEDS ORDERED: PROP10TA7 PO (04:52)
[2016-07-01] MEDS ORDERED: FURO-85 PO (05:55)
[2016-07-01] MEDS ORDERED: ONDA4TAB10 SL (12:02)
[2016-07-01] MEDS ORDERED: LEVO75TA PO (12:02)
[2016-07-01] MEDS ORDERED: RIFA550T2 PO (13:45)
[2016-07-01] MEDS ORDERED: FERR1TAB13 PO (14:58)
[2016-07-01] MEDS ORDERED: LEVE500T PO (16:08)
[2016-07-01] MEDS ORDERED: INSDGI SC (16:08)
[2016-08-22] MEDS ORDERED: MRLP17 PO (09:03)
[2016-08-22] MEDS ORDERED: INSDGI SC (09:03)
[2016-08-29] MEDS ORDERED: POLY335019 PO (12:27)
[2016-08-29] MEDS ORDERED: INSDGI SC (12:27)
[2016-10-28] MEDS ORDERED: XFX550 PO (14:18)
[2016-11-06] MEDS ORDERED: CLIN300C2 PO (14:29)
[2016-11-06] MEDS ORDERED: LCTX PO (14:29)
== END 2016-03-28 18:25 | disposition home health service (06) | DRG 433 ==
LOC: ENRESERVTM → ENRESERVDT → EDBD 03:32 → C.EDA 03:33 → C.MS4W 05:51
PROVIDERS: ADMIT Internal Medicine; ATTEND Internal Medicine
PROC: 0W9G3ZZ Drainage of Peritoneal Cavity, Percutaneous Approach (ICD-10-PCS; principal; 2016-03-27)
DX: K74.69 Other cirrhosis of liver (principal); R18.8 Other ascites; E87.1 Hypo-osmolality and hyponatremia; K76.6 Portal hypertension; K75.81 Nonalcoholic steatohepatitis (NASH); I10 Essential (primary) hypertension; E11.9 Type 2 diabetes mellitus without complications; F41.9 Anxiety disorder, unspecified; F32.9 Major depressive disorder, single episode, unspecified; G89.29 Other chronic pain; D64.9 Anemia, unspecified; E03.9 Hypothyroidism, unspecified; G40.909 Epilepsy, unspecified, not intractable, without status epilepticus; K21.9 Gastro-esophageal reflux disease without esophagitis; K42.9 Umbilical hernia without obstruction or gangrene; Z91.14 Patient's other noncompliance with medication regimen; Z86.711 Personal history of pulmonary embolism; Z98.1 Arthrodesis status; Z79.2 Long term (current) use of antibiotics; Z79.4 Long term (current) use of insulin; Z79.891 Long term (current) use of opiate analgesic; Z79.899 Other long term (current) drug therapy

== ENCOUNTER 2016-03-31 16:12 | Emergency (ER) | payer OTHER ==
[~2016-03-31] VITALS: Ht 182.9 cm; Wt 78.1 kg
[~2016-03-31 16:12] MED LIST changes: -LCTL30 PO; -TRIA0.1C20 TOP; +ZNT150 PO
[2016-03-31 16:17] VITALS: TEMP 37; Ht 182.9 cm; Wt 78.1 kg
--- NOTE | 2016-03-31 16:38 | EMERGENCY ROOM VISIT NOTE ---
History Report prepared by Alla: Petros Sanchez Under the Supervision of: Dr. Nimisha Oliveros M.D. First contact with patient: 16:37 Chief Complaint: RECTAL BLEEDING Stated Complaint: RECTAL BLEEDING Nursing Triage Summary: pt states he has had multiple bloody bowel movements for 2 days. pt states he was recentely admitted and had 10 liters taken off abdomen. pt c/o 10-14 bloody BMS yesterday and 9 bloody BMs today. hx cirrhosis. History of Present Illness The patient is a 61 year old male who presents to the Emergency Room with complaints of pt states he has had multiple bloody bowel movements for 2 days. pt states he was recentely admitted and had 10 liters taken off abdomen. pt c/o 10-14 bloody BMS yesterday and 9 bloody BMs today. hx cirrhosis. 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 Surgical Problems: (1) H/O esophagogastroduodenoscopy (2) H/O knee surgery (3) S/P cervical spinal fusion (4) S/P IVC filter (5) S/P lumbar fusion (6) S/P T&A (status post tonsillectomy and adenoidectomy) Family History FH: CAD (coronary artery disease) FATHER FH: breast cancer MOTHER Social History Smoking Status: Never Smoker Alcohol Use: none Marital Status: single Housing Status: lives alone Occupation Status: retired Current/Historical Medications Scheduled Escitalopram (Lexapro), 10 MG PO DAILY Furosemide (Lasix), 40 MG PO BID Insulin Aspart (Novolog Penfill), SQ TIDM Insulin Glargine (Lantus), 32 UNITS SC HS Lactulose (Chronulac), 20 GM PO TID Levetiractam (Levetiracetam), 500 MG PO AMHS Levothyroxine Sodium (Synthroid), 75 MCG PO DAILY Magnesium Oxide (Mag-Ox), 400 MG PO BID Pantoprazole (Protonix), 40 MG PO BID Pregabalin (Lyrica), 75 MG PO TID Propranolol (Inderal), 10 MG PO BID Pyridoxine Hcl (Vitamin B-6), 25 MG PO HS Ranitidine HCl (Ranitidine HCl), 150 MG PO HS Rifaximin (Xifaxan), 550 MG PO AMHS Spironolactone (Aldactone), 1 TAB PO DAILY Scheduled PRN Hydromorphone Hcl (Dilaudid), 1 TAB PO TID PRN for Pain Ondasetron Odt (Zofran Odt), 4 MG SL Q6H PRN for Nausea or Vomiting Triamcinolone Acet (Aristocort 0.1%), 1 APPL EXT BID PRN for dermatitis Allergies Coded Allergies: NSAIDs (Verified Allergy, Severe, DUE TO LIVER DISEAS, 03/31/16) Penicillins (Verified Allergy, Severe, JOINT SWELLING AND FEVER, 03/31/16) Levofloxacin (Verified Allergy, Mild, RASH, 03/31/16) pt developed erythema at site of IV injection with itching Vancomycin (Verified Allergy, Mild, HIVES, 03/31/16) HIVES Acetaminophen (Unverified Allergy, Unknown, unknown, 03/31/16) Tramadol (Verified Allergy, Unknown, NOT TO TAKE WITH KEPPRA DUE TO SEIZURE RISK, 03/31/16) Physical Exam Vital Signs Date Time Temp Pulse Resp B/P Pulse Ox O2 Delivery O2 Flow Rate FiO2 03/31/16 16:17 37.0 61 18 114/72 99 Room Air Medical Decision & Procedures Laboratory Results Test 03/31/16 16:39 Departure Information Referrals Chacha Munoz D.O. (PCP) Patient Instructions [facility]
--- NOTE | 2016-03-31 17:16 | DIAGNOSTIC IMAGING REPORT ---
CHEST ONE VIEW PORTABLE CLINICAL HISTORY: GI bleed. Rectal bleed. COMPARISON STUDY: Chest radiograph every 22,017. FINDINGS: An anterior cervical spine fusion is partially imaged. There is no pneumothorax or pleural effusion. There is no evidence of pulmonary edema. New bibasilar opacities favor atelectasis. There is no consolidation to suggest pneumonia. Cardiomediastinal silhouette is normal. IMPRESSION: 1. No acute findings. 2. Linear bibasilar opacities suggestive of atelectasis. Electronically signed by: Luisito Obregon M.D. 03/31/2016 5:15 PM Dictated Date/Time: 03/31/2016 5:14 PM
[2016-03-31 17:30] LABS: MEAN CORPUSCULAR HGB CONC 33.2 g/dl (32-36)
[2016-03-31 17:36] LABS: HEMATOCRIT 29.8 % (42-52); MEAN CELL VOLUME 70.1 fL (80-100); MEAN CORPUSCULAR HEMOGLOBIN 23.3 pg (25-34); RED BLOOD COUNT 4.25 M/uL (4.7-6.1); WHITE BLOOD COUNT 8.81 K/uL (4.8-10.8)
[2016-03-31 17:43] LABS: INR 1.3 (0.9-1.1); PARTIAL THROMBOPLASTIN RATIO 1.1
[2016-03-31 17:52] LABS: ALKALINE PHOSPHATASE 131 U/L (45-117); ALT/SGPT 23 U/L (12-78); AST/SGOT 21 U/L (15-37); BLOOD UREA NITROGEN 12 mg/dl (7-18); BUN/CREATININE RATIO 8.8 (10-20); CALCIUM 8.6 mg/dl (8.5-10.1); CARBON DIOXIDE 24 mmol/L (21-32); CHLORIDE 92 mmol/L (98-107); CKMB/CK RATIO 8.7 (0-3.0); GLUCOSE 565 mg/dl (70-99); POTASSIUM 4.5 mmol/L (3.5-5.1); SODIUM 127 mmol/L (136-145)
[2016-03-31 17:58] LABS: PLATELET COUNT 89 K/uL (130-400)
[2016-03-31 17:59] LABS: ANISOCYTOSIS PRESENT; BASO % 0.5 %; BASO ABS # 0.04 K/uL (0-0.2); COMPLETE YES; EOS % 1.5 %; HYPERSEGMENTED POLYS 1+; IG% 0.3 %; LYMPH % 7.9 %; MICROCYTOSIS PRESENT; MONO % 9.8 %; PLT ESTIMATE DECREASED; TEAR DROP CELLS 1+
[2016-03-31 18:09] LABS: BETA-HYDROXYBUTYRATE 2.91 mg/dL (0.2-2.81)
[2016-03-31] MEDS ORDERED: NovoLIN-R INSULIN PER UNIT CHARGE IV STA ×2 (18:45→19:33)
[2016-03-31] MEDS ORDERED: HYDROmorphone INJ 2 MG/ML SYR/VIAL IV STA (19:21)
[2016-03-31] MEDS ORDERED: NovoLIN-R INSULIN PER UNIT CHARGE SC STA (19:33)
--- NOTE | 2016-03-31 21:31 | EMERGENCY ROOM VISIT NOTE ---
History Report prepared by Marjorieibpriya: Nubia Singh Under the Supervision of: Dr. Paul Acosta D.O. First contact with patient: 16:37 Chief Complaint: RECTAL BLEEDING Stated Complaint: RECTAL BLEEDING Nursing Triage Summary: pt states he has had multiple bloody bowel movements for 2 days. pt states he was recentely admitted and had 10 liters taken off abdomen. pt c/o 10-14 bloody BMS yesterday and 9 bloody BMs today. hx cirrhosis. History of Present Illness The patient is a 61 year old male who presents to the Emergency Room with complaints of persistent rectal bleeding for the past 2 days. He was brought to the ED via EMS. He reports yesterday he had "between 10 and 14" episodes of blood diarrhea. Today, he has experienced 9 episodes so far. The patient takes Lactulose and reports that seems to cause his diarrhea. He was seen here in the hospital 3 days ago for a paracentesis and had 10 Liters of fluid taken off his abdomen, due to a history of cirrhosis. 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 A total of 10 systems reviewed and were otherwise negative. 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 Surgical Problems: (1) H/O esophagogastroduodenoscopy (2) H/O knee surgery (3) S/P cervical spinal fusion (4) S/P IVC filter (5) S/P lumbar fusion (6) S/P T&A (status post tonsillectomy and adenoidectomy) Family History FH: CAD (coronary artery disease) FATHER FH: breast cancer MOTHER Social History Smoking Status: Never Smoker Alcohol Use: none Marital Status: single Housing Status: lives alone Occupation Status: retired Current/Historical Medications Scheduled Escitalopram (Lexapro), 10 MG PO DAILY Furosemide (Lasix), 40 MG PO BID Insulin Aspart (Novolog Penfill), SQ TIDM Insulin Glargine (Lantus), 32 UNITS SC HS Lactulose (Chronulac), 20 GM PO TID Levetiractam (Levetiracetam), 500 MG PO AMHS Levothyroxine Sodium (Synthroid), 75 MCG PO DAILY Magnesium Oxide (Mag-Ox), 400 MG PO BID Pantoprazole (Protonix), 40 MG PO BID Pregabalin (Lyrica), 75 MG PO TID Propranolol (Inderal), 10 MG PO BID Pyridoxine Hcl (Vitamin B-6), 25 MG PO HS Ranitidine HCl (Ranitidine HCl), 150 MG PO HS Rifaximin (Xifaxan), 550 MG PO AMHS Spironolactone (Aldactone), 1 TAB PO DAILY Scheduled PRN Hydromorphone Hcl (Dilaudid), 1 TAB PO TID PRN for Pain Ondasetron Odt (Zofran Odt), 4 MG SL Q6H PRN for Nausea or Vomiting Triamcinolone Acet (Aristocort 0.1%), 1 APPL EXT BID PRN for dermatitis Allergies Coded Allergies: NSAIDs (Verified Allergy, Severe, DUE TO LIVER DISEAS, 03/31/16) Penicillins (Verified Allergy, Severe, JOINT SWELLING AND FEVER, 03/31/16) Levofloxacin (Verified Allergy, Mild, RASH, 03/31/16) pt developed erythema at site of IV injection with itching Vancomycin (Verified Allergy, Mild, HIVES, 03/31/16) HIVES Acetaminophen (Unverified Allergy, Unknown, unknown, 03/31/16) Tramadol (Verified Allergy, Unknown, NOT TO TAKE WITH KEPPRA DUE TO SEIZURE RISK, 03/31/16) Physical Exam Vital Signs Date Time Temp Pulse Resp B/P Pulse Ox O2 Delivery O2 Flow Rate FiO2 03/31/16 21:30 69 20 126/78 97 Room Air 03/31/16 20:36 70 03/31/16 19:30 75 18 101/47 95 Room Air 03/31/16 18:28 65 18 111/72 97 Room Air 03/31/16 16:42 59 03/31/16 16:17 37.0 61 18 114/72 99 Room Air Physical Exam CONSTITUTIONAL/VITAL SIGNS: Reviewed / noted above. GENERAL: Non-toxic in appearance. INTEGUMENTARY: Warm, dry, and [place]. HEAD: Normocephalic. EYES: without scleral icterus or trauma. ENT/OROPHARYNX: clear and moist. LYMPHADENOPATHY/NECK: Is supple without lymphadenopathy or meningismus. RESPIRATORY: Lungs clear and equal. CARDIOVASCULAR: Regular rate and rhythm. GI/ABDOMEN: Soft and nontender. Slight abdominal distension, which is chronic. No organomegaly or pulsatile mass. No rebound or guarding. Normal bowel sounds. EXTREMITIES: Warm and well perfused. BACK: No CVA tenderness. RECTAL: Light brown stool, trace black, guaiac positive. NEUROLOGICAL: Intact without focal deficits. PSYCHIATRIC: normal affect. MUSCULOSKELETAL: Normally developed with good muscle tone. Medical Decision & Procedures ER Provider Diagnostic Interpretation: This X-Ray was reviewed and interpreted by myself and the radiologist. CHEST ONE VIEW PORTABLE IMPRESSION: 1. No acute findings. 2. Linear bibasilar opacities suggestive of atelectasis. Electronically signed by: Luisito Obregon M.D. 03/31/2016 5:15 PM Laboratory Results 03/31/16 17:00 Red Blood Count 4.25, Mean Corpuscular Volume 70.1, Mean Corpuscular Hemoglobin 23.3, Mean Corpuscular Hemoglobin Concent 33.2, Neutrophils (%) (Auto) 80.0, Lymphocytes (%) (Auto) 7.9, Monocytes (%) (Auto) 9.8, Eosinophils (%) (Auto) 1.5 , Basophils (%) (Auto) 0.5, Neutrophils # (Auto) 7.05, Lymphocytes # (Auto) 0.70 , Monocytes # (Auto) 0.86, Eosinophils # (Auto) 0.13, Basophils # (Auto) 0.04 03/31/16 17:00 Test 03/31/16 17:00 03/31/16 21:10 White Blood Count 8.81 K/uL (4.8-10.8) Red Blood Count 4.25 M/uL (4.7-6.1) Hemoglobin 9.9 g/dL (14.0-18.0) Hematocrit 29.8 % (42-52) Mean Corpuscular Volume 70.1 fL (80-100) Mean Corpuscular Hemoglobin 23.3 pg (25-34) Mean Corpuscular Hemoglobin Concent 33.2 g/dl (32-36) Platelet Count 89 K/uL (130-400) Neutrophils (%) (Auto) 80.0 % Lymphocytes (%) (Auto) 7.9 % Monocytes (%) (Auto) 9.8 % Eosinophils (%) (Auto) 1.5 % Basophils (%) (Auto) 0.5 % Neutrophils # (Auto) 7.05 K/uL (1.4-6.5) Lymphocytes # (Auto) 0.70 K/uL (1.2-3.4) Monocytes # (Auto) 0.86 K/uL (0.11-0.59) Eosinophils # (Auto) 0.13 K/uL (0-0.5) Basophils # (Auto) 0.04 K/uL (0-0.2) RDW Standard Deviation 52.3 fL (36.4-46.3) RDW Coefficient of Variation 20.4 % (11.5-14.5) Immature Granulocyte % (Auto) 0.3 % Immature Granulocyte # (Auto) 0.03 K/uL (0.00-0.02) Hypersegmented Polys 1+ Platelet Estimate DECREASED Anisocytosis PRESENT Microcytosis PRESENT Tear Drop Cells 1+ Prothrombin Time 14.0 SECONDS (9.0-12.0) Prothromb Time International Ratio 1.3 (0.9-1.1) Activated Partial Thromboplast Time 29.6 SECONDS (21.0-31.0) Partial Thromboplastin Ratio 1.1 Anion Gap 11.0 mmol/L (3-11) Est Creatinine Clear Calc Drug Dose 60.1 ml/min Estimated GFR () 62.0 Estimated GFR (Non- 53.5 BUN/Creatinine Ratio 8.8 (10-20) Calcium Level 8.6 mg/dl (8.5-10.1) Total Bilirubin 2.7 mg/dl (0.2-1) Direct Bilirubin 1.0 mg/dl (0-0.2) Aspartate Amino Transf (AST/SGOT) 21 U/L (15-37) Alanine Aminotransferase (ALT/SGPT) 23 U/L (12-78) Alkaline Phosphatase 131 U/L (45-117) Total Creatine Kinase 52 U/L (39-308) Creatine Kinase MB 4.5 ng/ml (0.5-3.6) Creatine Kinase MB Ratio 8.7 (0-3.0) Troponin I < 0.015 ng/ml (0-0.045) Total Protein 6.1 gm/dl (6.4-8.2) Albumin 3.0 gm/dl (3.4-5.0) Lipase 279 U/L (73-393) Beta-Hydroxybutyric Acid 2.91 mg/dL (0.2-2.81) Bedside Glucose 410 mg/dl (70-99) Date/Time Source Procedure Growth Status 03/31/16 17:50 Stool C.difficile Toxin B Gene (PCR) - Final No C. difficile toxin B gene detected Complete Laboratory results as stated above per my review. Medications Administered Medications (Trade) Dose Ordered Sig/Ryan Route Start Time Stop Time Status Last Admin Dose Admin Insulin Human Regular (novoLIN-R U-100 PER UNIT) 10 units NOW STAT IV 03/31/16 18:45 03/31/16 18:46 DC 03/31/16 19:08 10 UNITS Hydromorphone HCl (Dilaudid Inj) 2 mg NOW STAT IV 03/31/16 19:21 03/31/16 19:23 DC 03/31/16 19:29 2 MG Insulin Human Regular (novoLIN-R U-100 PER UNIT) 15 units NOW STAT IV 03/31/16 19:33 03/31/16 19:34 DC 03/31/16 19:48 15 UNITS Insulin Human Regular (novoLIN-R U-100 PER UNIT) 10 units NOW STAT SC 03/31/16 19:33 03/31/16 19:34 DC 03/31/16 19:49 10 UNITS ECG Indication: weakness Rate (beats per minute): 62 Rhythm: sinus rhythm Findings: PAC, no acute ischemic change ED Course 1641: Previous medical records were reviewed. The patient was evaluated in room B5. A complete history and physical examination was performed. 1844: Novolin-R 10 units IV. 1920: Dilaudid 2 mg IV. 1932: Novolin-R 10 units SC, Novolin-R 15 units IV. 2121: I reevaluated the patient. He is feeling better. I discussed his results and discharge instructions and he verbalized complete understanding and agreement. Medical Decision This is a 61-year-old male who presents to the ED with a chief complaint of rectal bleeding. The patient states that he has had some diarrhea for the past couple of days. He states that he has had 10 episodes yesterday and possibly 10 episodes a day. There was some blood in his stools. He is on lactulose for chronic end-stage liver failure. The patient denies any other significant complaints. He is awake, alert and oriented. Vital signs are stable. Physical exam reveals no abdominal tenderness. He does have some evidence of ascites. He states this was recently drained. His uvula was signed by 9. Glucose 565. Troponin is negative. His hemoglobin on the was 9.1. The patient's stool was tested here and C. difficile negative. The patient was told the results the test. He was given IV and subcutaneous insulin for his blood sugar. It is improving. The patient does have insulin at home and checks his blood sugars regularly. He is felt to be stable for discharge and outpatient follow-up. He will return for any worsening or new concerns. Impression Primary Impression: Diarrhea Additional Impression: Hyperglycemia Scribe Attestation .The scribe's documentation has been prepared under my direction and personally reviewed by me in its entirety. I confirm that the note above accurately reflects all work, treatment, procedures, and medical decision making performed by me. Departure Information Dispostion Home / Self-Care Referrals Chacha Munoz D.O. (PCP) Patient Instructions Diarrhea, Hyperglycemia, My [facility] Additional Instructions Keep a close eye on her blood sugars. He is your insulin as per your doctor's instructions for blood sugar control. Drink plenty of fluids. Follow-up with your doctor for recheck. Return for worsening or new concerns. Problem Qualifiers
[2016-03-31 22:45] VITALS: BP 100/69; PULSE 66; O2SAT 97
[2016-04-07] MEDS ORDERED: DLD2 PO (16:03)
[2016-04-07] MEDS ORDERED: LSX20 PO (16:03)
[2016-04-10] MEDS ORDERED: BND25X PO (13:11)
[2016-05-23] MEDS ORDERED: HYDR4TAB78 PO (09:03)
[2016-07-01] MEDS ORDERED: MAGN400T5 PO (01:36)
[2016-07-01] MEDS ORDERED: DIPH50TA10 PO (02:00)
[2016-07-01] MEDS ORDERED: TRMCR130WC EXT (03:58)
[2016-07-01] MEDS ORDERED: LACT10SO17 PO (04:04)
[2016-07-01] MEDS ORDERED: PYRI25TA PO (04:52)
[2016-07-01] MEDS ORDERED: PROP10TA7 PO (04:52)
[2016-07-01] MEDS ORDERED: FURO-85 PO (05:55)
[2016-07-01] MEDS ORDERED: ONDA4TAB10 SL (12:02)
[2016-07-01] MEDS ORDERED: LEVO75TA PO (12:02)
[2016-07-01] MEDS ORDERED: RIFA550T2 PO (13:45)
[2016-07-01] MEDS ORDERED: FERR1TAB13 PO (14:58)
[2016-07-01] MEDS ORDERED: INSDGI SC (16:08)
[2016-07-01] MEDS ORDERED: LEVE500T PO (16:08)
[2016-08-22] MEDS ORDERED: MRLP17 PO (09:03)
[2016-08-22] MEDS ORDERED: INSDGI SC (09:03)
[2016-08-29] MEDS ORDERED: INSDGI SC (12:27)
[2016-08-29] MEDS ORDERED: POLY335019 PO (12:27)
[2016-10-28] MEDS ORDERED: XFX550 PO (14:18)
[2016-11-06] MEDS ORDERED: CLIN300C2 PO (14:29)
[2016-11-06] MEDS ORDERED: LCTX PO (14:29)
== END 2016-03-31 23:07 | disposition home or self-care (01) ==
LOC: EDBD 16:12 → C.EDB 16:13
DX: R19.7 Diarrhea, unspecified (principal); E11.65 Type 2 diabetes mellitus with hyperglycemia; F32.9 Major depressive disorder, single episode, unspecified; F41.9 Anxiety disorder, unspecified; K72.90 Hepatic failure, unspecified without coma; E78.5 Hyperlipidemia, unspecified; E03.9 Hypothyroidism, unspecified; G40.909 Epilepsy, unspecified, not intractable, without status epilepticus; Z79.4 Long term (current) use of insulin

== ENCOUNTER 2016-04-02 01:15 | Inpatient (IN) | payer OTHER ==
[~2016-04-02] VITALS: Ht 182.9 cm; Wt 79.7 kg
[2016-04-02] MEDS ORDERED: SODIUM CHLORIDE 0.9% 1000ML 1,000 ML IV STA (01:36)
--- NOTE | 2016-04-02 01:40 | EMERGENCY ROOM VISIT NOTE ---
History Report prepared by Alla: Levon Mccormick Under the Supervision of: Dr. Nimisha Oliveros M.D. First contact with patient: 01:33 Chief Complaint: SYNCOPE Stated Complaint: SYNCOPE/DIZZY/CHEST PAIN Nursing Triage Summary: pt was seen here last night for diarrhea and discharged, pt c/o dizzy and nausea all day then started to pass out, told ems multple syncopal episodes , pt thinks he injured his lower back with pmhx of back surgery with rods placed. History of Present Illness The patient is a 61 year old male who presents to the Emergency Room with complaints of persistent dizziness that started at approximately 1500 today. The patient has a history of diabetes. He has been experiencing urinary frequency. The patient states that his BSG was very high in the ambulance en route to the ED. The patient's last dose of insulin was at 2200 tonight. He was in the ED last night for diarrhea. The patient notes that he was having trouble walking secondary to dizziness. The patient follows up with pain management. The patient also notes that he has been experiencing lower back pain. Source of History: patient Onset: 1500 today Position: other (global) Quality: other (dizziness) Timing: other (persistent) Associated Symptoms: + back pain Review of Systems See HPI for pertinent positives & negatives. A total of 10 systems reviewed and were otherwise negative. 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 Surgical Problems: (1) H/O esophagogastroduodenoscopy (2) H/O knee surgery (3) S/P cervical spinal fusion (4) S/P IVC filter (5) S/P lumbar fusion (6) S/P T&A (status post tonsillectomy and adenoidectomy) Family History FH: CAD (coronary artery disease) FATHER FH: breast cancer MOTHER Social History Smoking Status: Never Smoker Alcohol Use: none Marital Status: single Housing Status: lives alone Occupation Status: retired Current/Historical Medications Scheduled Escitalopram (Lexapro), 10 MG PO DAILY Furosemide (Lasix), 40 MG PO BID Insulin Aspart (Novolog Penfill), SQ TIDM Insulin Glargine (Lantus), 32 UNITS SC HS Lactulose (Chronulac), 20 GM PO TID Levetiractam (Levetiracetam), 500 MG PO AMHS Levothyroxine Sodium (Synthroid), 75 MCG PO DAILY Magnesium Oxide (Mag-Ox), 400 MG PO BID Pantoprazole (Protonix), 40 MG PO BID Pregabalin (Lyrica), 75 MG PO TID Propranolol (Inderal), 10 MG PO BID Pyridoxine Hcl (Vitamin B-6), 25 MG PO HS Rifaximin (Xifaxan), 550 MG PO AMHS Spironolactone (Aldactone), 1 TAB PO DAILY Scheduled PRN Hydromorphone Hcl (Dilaudid), 1 TAB PO TID PRN for Pain Ondasetron Odt (Zofran Odt), 4 MG SL Q6H PRN for Nausea or Vomiting Triamcinolone Acet (Aristocort 0.1%), 1 APPL EXT BID PRN for dermatitis Allergies Coded Allergies: NSAIDs (Verified Allergy, Severe, DUE TO LIVER DISEAS, 04/02/16) Penicillins (Verified Allergy, Severe, JOINT SWELLING AND FEVER, 04/02/16) Levofloxacin (Verified Allergy, Mild, RASH, 04/02/16) pt developed erythema at site of IV injection with itching Vancomycin (Verified Allergy, Mild, HIVES, 04/02/16) HIVES Acetaminophen (Unverified Allergy, Unknown, unknown, 04/02/16) Tramadol (Verified Allergy, Unknown, NOT TO TAKE WITH KEPPRA DUE TO SEIZURE RISK, 04/02/16) Physical Exam Vital Signs Date Time Temp Pulse Resp B/P Pulse Ox O2 Delivery O2 Flow Rate FiO2 04/02/16 08:56 67 18 95/64 94 04/02/16 08:46 67 18 95/64 94 04/02/16 07:49 68 04/02/16 07:41 94 Room Air 04/02/16 06:00 70 23 100/60 94 Room Air 04/02/16 05:30 72 19 84 Room Air 04/02/16 05:10 64 04/02/16 05:00 64 19 114/66 95 Room Air 04/02/16 04:30 64 20 108/66 96 Room Air 04/02/16 04:00 65 20 100/66 96 Room Air 04/02/16 03:30 65 20 94 Room Air 04/02/16 03:25 67 19 105/68 95 04/02/16 03:03 83/63 04/02/16 02:30 64 16 04/02/16 02:00 65 21 96 04/02/16 01:40 64 04/02/16 01:26 36.8 66 17 125/75 99 Room Air 04/02/16 01:26 99 Room Air Physical Exam Vital signs reviewed. General: Chronically ill-appearing male, in no significant distress. Cachectic. HEENT: No scleral icterus, PERRLA, neck supple. Atraumatic. Cardiovascular: Regular rate and rhythm, no extra sounds. Pulmonary: Clear to auscultation bilaterally, normal work of breathing. Abdomen: Soft, nontender, nondistended, positive bowel sounds. Positive fluid wave. Musculoskeletal: Atraumatic. Bilateral lower extremity edema. Neurologic: Patient awake alert and oriented x 3 Skin: Warm, dry, no rash Medical Decision & Procedures ER Provider Diagnostic Interpretation: X-ray results as stated below per interpretation by me. Chronic interstitial changes along the right lower heart border, no significant change compared to previous. Laboratory Results Test 04/02/16 00:00 04/02/16 01:51 Immature Granulocyte % (Auto) 0.2 % White Blood Count 6.54 K/uL (4.8-10.8) Red Blood Count 4.39 M/uL (4.7-6.1) Hemoglobin 10.1 g/dL (14.0-18.0) Hematocrit 31.9 % (42-52) Mean Corpuscular Volume 72.7 fL (80-100) Mean Corpuscular Hemoglobin 23.0 pg (25-34) Mean Corpuscular Hemoglobin Concent 31.7 g/dl (32-36) Platelet Count 84 K/uL (130-400) Neutrophils (%) (Auto) 73.6 % Lymphocytes (%) (Auto) 11.6 % Monocytes (%) (Auto) 11.5 % Eosinophils (%) (Auto) 2.3 % Basophils (%) (Auto) 0.8 % Neutrophils # (Auto) 4.82 K/uL (1.4-6.5) Lymphocytes # (Auto) 0.76 K/uL (1.2-3.4) Monocytes # (Auto) 0.75 K/uL (0.11-0.59) Eosinophils # (Auto) 0.15 K/uL (0-0.5) Basophils # (Auto) 0.05 K/uL (0-0.2) Immature Granulocyte # (Auto) 0.01 K/uL (0.00-0.02) Prothrombin Time 13.6 SECONDS (9.0-12.0) Prothromb Time International Ratio 1.3 (0.9-1.1) Urine Color YELLOW Urine Appearance CLEAR (CLEAR) Urine pH 5.5 (4.5-7.5) Urine Specific [place] 1.019 (1.000-1.030) Urine Protein NEG (NEG) Urine Glucose (UA) 3+ (NEG) Urine Ketones NEG (NEG) Urine Occult Blood NEG (NEG) Urine Nitrite NEG (NEG) Urine Bilirubin NEG (NEG) Urine Urobilinogen NEG (NEG) Urine Leukocyte Esterase NEG (NEG) Total Bilirubin 1.7 mg/dl (0.2-1) Direct Bilirubin 0.8 mg/dl (0-0.2) Aspartate Amino Transf (AST/SGOT) 20 U/L (15-37) Alanine Aminotransferase (ALT/SGPT) 23 U/L (12-78) Alkaline Phosphatase 123 U/L (45-117) Total Creatine Kinase 74 U/L (39-308) Creatine Kinase MB 7.4 ng/ml (0.5-3.6) Creatine Kinase MB Ratio 10.0 (0-3.0) Total Protein 6.1 gm/dl (6.4-8.2) Albumin 3.0 gm/dl (3.4-5.0) Beta-Hydroxybutyric Acid 1.18 mg/dL (0.2-2.81) Bedside Troponin I 0.000 ng/ml (0-0.045) Laboratory results per my review. Medications Administered Medications (Trade) Dose Ordered Sig/Ryan Route Start Time Stop Time Status Last Admin Dose Admin Sodium Chloride (Nss 1000ml) 1,000 ml @ 125 mls/hr Q8H STAT IV 2/26/17 01:36 04/02/16 09:32 DC 04/02/16 02:27 125 MLS/HR Insulin Human Regular (novoLIN-R U-100 PER UNIT) 10 units NOW STAT SC 04/02/16 02:20 04/02/16 02:22 DC 04/02/16 02:35 10 UNITS Hydromorphone HCl (Dilaudid Tab) 4 mg NOW STAT PO 04/02/16 04:15 04/02/16 04:16 DC 04/02/16 04:22 4 MG Insulin Human Regular (novoLIN-R U-100 PER UNIT) 10 units NOW STAT SC 04/02/16 04:15 04/02/16 04:16 DC 04/02/16 04:22 10 UNITS Insulin Human Regular (novoLIN-R U-100 PER UNIT) 10 units NOW STAT SC 04/02/16 05:52 04/02/16 05:53 DC 04/02/16 06:12 10 UNITS Ondansetron HCl 4 mg 4 mg Q6H PRN SL 04/02/16 08:15 05/02/16 08:14 04/04/16 10:10 4 MG Sodium Chloride (Nss 1000ml) 1,000 ml @ 100 mls/hr Q10H IV 04/02/16 09:00 04/02/16 18:59 DC 04/02/16 10:20 100 MLS/HR ECG Indication: weakness Rate (beats per minute): 61 Rhythm: normal sinus Findings: no acute ischemic change, no ectopy, other (possible previous anterior infarct) ED Course 0135: Past medical records reviewed. The patient was evaluated in room B2. A complete history and physical examination was performed. 0136: NSS 1000 ml @ 125 mls/hr. 0220: Insulin Human Regular 10 units SC. 0415: Insulin Human Regular 10 units SC, Dilaudid 4 mg PO. 0552: Insulin Human Regular 10 units SC. 0605: Spoke with Dr. Fabian, [facility] Hospitalist. The patient will be evaluated. Medical Decision Differential diagnosis: Etiologies such as metabolic, infection, hypo/hyperglycemia, electrolyte abnormalities, cardiac sources, intracerebral event, toxicologic, neurologic, as well as others were entertained. This patient was evaluated and appeared to be in no significant distress. The patient is chronically ill and has end-stage liver disease with ascites. Patient's laboratory work reveals a glucose of 572. The patient does not appear to be profoundly acidotic. He was hydrated with normal saline solution. Patient was given 3 separate doses of 10 units regular insulin subcutaneous. After several hours in the emergency department, the patient's blood sugar remained in the 400s. The patient seems to be relatively stable otherwise. He is complaining of some pain and was given his home dose of oral Dilaudid and a Zofran tablet. Patient was discussed with the hospitalist service for further management of the patient's condition. Consults Time Called: 599 Consulting Physician: [facility]. Returned Call: [phone]: Spoke with Omar Santos. The patient will be evaluated. Impression Primary Impression: Hyperglycemia Additional Impression: End stage liver disease Scribe Attestation The scribe's documentation has been prepared under my direction and personally reviewed by me in its entirety. I confirm that the note above accurately reflects all work, treatment, procedures, and medical decision making performed by me. Departure Information Dispostion Being Evaluated By Hospitalist Referrals Chacha Munoz D.O. (PCP) Patient Instructions My [facility] Problem Qualifiers
[2016-04-02 01:44] LABS: MEAN CORPUSCULAR HGB CONC 31.7 g/dl (32-36)
[2016-04-02 01:58] LABS: HEMATOCRIT 31.9 % (42-52); MEAN CELL VOLUME 72.7 fL (80-100); RED BLOOD COUNT 4.39 M/uL (4.7-6.1); WHITE BLOOD COUNT 6.54 K/uL (4.8-10.8)
[2016-04-02 02:00] LABS: URINE APPEARANCE CLEAR (CLEAR); URINE BILIRUBIN NEG (NEG); URINE COLOR YELLOW; URINE NITRITE NEG (NEG); URINE PH 5.5 (4.5-7.5); URINE SPECIFIC GRAVITY 1.019 (1.000-1.030); UROBILINOGEN NEG (NEG); ZZUR CULT IF INDIC CLEAN CATCH NO
[2016-04-02 02:04] LABS: MANUAL MICROSCOPIC REQUIRED? NO; REVIEW REQ? NO
[2016-04-02 02:19] LABS: BUN/CREATININE RATIO 7.9 (10-20); CALCIUM 8.2 mg/dl (8.5-10.1); CREATININE 1.4 mg/dl (0.60-1.40); MAGNESIUM 2.1 mg/dl (1.8-2.4); POTASSIUM 4.6 mmol/L (3.5-5.1)
[2016-04-02] MEDS ORDERED: NovoLIN-R INSULIN PER UNIT CHARGE SC STA ×3 (02:20→05:52)
[2016-04-02 02:26] LABS: BASO % 0.8 %; BASO ABS # 0.05 K/uL (0-0.2); COMPLETE YES; EOS % 2.3 %; IG% 0.2 %; LYMPH % 11.6 %; LYMPH ABS # 0.76 K/uL (1.2-3.4); MONO % 11.5 %; NEUT % 73.6 %; PLATELET COUNT 84 K/uL (130-400); PLT ESTIMATE DECREASED
[2016-04-02 02:50] LABS: BETA-HYDROXYBUTYRATE 1.18 mg/dL (0.2-2.81)
[2016-04-02] MEDS ORDERED: HYDROmorphone HCL 2 MG TAB PO STA (04:15)
[2016-04-02] MEDS ORDERED: GLUCOSE 10 TABS/TUBE PO PRN (07:15)
[2016-04-02] MEDS ORDERED: DEXTROSE 50% 50 ML SYR IV PRN (07:15)
[2016-04-02] MEDS ORDERED: GLUCOSE 40% GEL 15 GM TUBE PO PRN (07:15)
[2016-04-02] MEDS ORDERED: GLUCAGON FOR INJ 1 MG VIAL SQ PRN (07:15)
--- NOTE | 2016-04-02 07:30 | DIAGNOSTIC IMAGING REPORT ---
CHEST ONE VIEW PORTABLE HISTORY: near syncope, dizzy COMPARISON: Chest 03/31/2016. FINDINGS: Low lung volumes. No pneumothorax. Cervical spinal fusion hardware is again noted. The heart is stable in size. No pleural effusions. Bibasilar linear densities persist. The upper lung zones remain clear. No evidence for pulmonary edema. IMPRESSION: No change in the low lung volumes and bibasilar linear densities suggesting subsegmental atelectasis. Electronically signed by: Tj Weston M.D. 04/02/2016 7:29 AM Dictated Date/Time: 04/02/2016 7:28 AM
[2016-04-02 07:41] VITALS: O2SAT 94; BMI 24.4
[2016-04-02] MEDS ORDERED: HYDROmorphone HCL 2 MG TAB PO PRN ×2 (08:15→16:30)
[2016-04-02] MEDS ORDERED: PHARMACY GLYCEMIC MGMT CONSULT PRN (08:54)
[2016-04-02] MEDS ORDERED: SPIRONOLACTONE 100 MG TAB PO SCH (09:00)
[2016-04-02] MEDS ORDERED: SODIUM CHLORIDE 0.9% 1000ML 1,000 ML IV SCH (09:00)
--- NOTE | 2016-04-02 09:06 | History and Physical ---
History & Physical Date & Time of Service: Apr 02, 2016 at 08:30 Chief Complaint: Syncope/Dizzy/Chest Pain Primary Care Physician: Chacha Munoz D.O. History of Present Illness Source: patient 61 yo ESLD patient presents with generalized weakness and lightheadedness since being discharged from the hospital 5 days ago. On 03/28, he underwent a paracentesis with 10L of fluid removed. Since being home he states that he has had multiple falls without loss of consciousness along with the following symptoms. Cough for the past 1-2 days, cold intolerance, nausea without any appetite (however, reports just yesterday eating cereal for breakfast, sandwich for lunch, pork chops and potatoes for dinner) diarrhea for which he was seen in the ER two days ago and since has resolved, some blood per rectum associated with that diarrhea that has since cleared up, headache, chronic abdominal pain, chronic chest pain that is describes as sharp and in the anterior chest--both chronic pains are at their baseline and he has been seen for this in the past. He denies palpitations, fevers, chills, UTI symptoms and doesn't appear to have any stroke like symptoms including no facial droop, difficulty speaking, blurry vision, focal deficits. He does mention some dysphagia to solids and liquids which started one week ago. 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 Surgical Problems: (1) H/O esophagogastroduodenoscopy Status: Resolved (2) H/O knee surgery Status: Resolved (3) S/P cervical spinal fusion Status: Resolved (4) S/P IVC filter Status: Resolved (5) S/P lumbar fusion Status: Resolved (6) S/P T&A (status post tonsillectomy and adenoidectomy) Status: Resolved Family History FH: CAD (coronary artery disease) FATHER FH: breast cancer MOTHER Social History Smoking Status: Never Smoker Smokeless Tobacco Use: Unknown Alcohol Use: none Drug Use: none Marital Status: single Housing status: lives with roommate Occupational Status: retired Immunizations History of Influenza Vaccine: Yes Influenza Vaccine Date: Oct 21, 2014 History of Tetanus Vaccine?: Yes Tetanus Immunization Date: Mar 15, 1972 History of Pneumococcal: Yes Pneumococcal Date: Feb 05, 2009 History of Hepatitis B Vaccine: Yes Hepatitis Immunization Date: June 18, 2013 Multi-Drug Resistant Organisms History of MDRO: No Allergies Coded Allergies: NSAIDs (Verified Allergy, Severe, DUE TO LIVER DISEAS, 04/02/16) Penicillins (Verified Allergy, Severe, JOINT SWELLING AND FEVER, 04/02/16) Levofloxacin (Verified Allergy, Mild, RASH, 04/02/16) pt developed erythema at site of IV injection with itching Vancomycin (Verified Allergy, Mild, HIVES, 04/02/16) HIVES Acetaminophen (Unverified Allergy, Unknown, unknown, 04/02/16) Tramadol (Verified Allergy, Unknown, NOT TO TAKE WITH KEPPRA DUE TO SEIZURE RISK, 04/02/16) Home Medications Scheduled Escitalopram (Lexapro), 10 MG PO DAILY Furosemide (Lasix), 40 MG PO BID Insulin Aspart (Novolog Penfill), SQ TIDM Insulin Glargine (Lantus), 32 UNITS SC HS Lactulose (Chronulac), 20 GM PO TID Levetiractam (Levetiracetam), 500 MG PO AMHS Levothyroxine Sodium (Synthroid), 75 MCG PO DAILY Magnesium Oxide (Mag-Ox), 400 MG PO BID Pantoprazole (Protonix), 40 MG PO BID Pregabalin (Lyrica), 75 MG PO TID Propranolol (Inderal), 10 MG PO BID Pyridoxine Hcl (Vitamin B-6), 25 MG PO HS Rifaximin (Xifaxan), 550 MG PO AMHS Spironolactone (Aldactone), 1 TAB PO DAILY Scheduled PRN Hydromorphone Hcl (Dilaudid), 1 TAB PO TID PRN for Pain Ondasetron Odt (Zofran Odt), 4 MG SL Q6H PRN for Nausea or Vomiting Triamcinolone Acet (Aristocort 0.1%), 1 APPL EXT BID PRN for dermatitis Review of Systems All systems are reviewed and negative except as indicated in HPI, Physical Exam Vital Signs Date Time Temp Pulse Resp B/P Pulse Ox O2 Delivery O2 Flow Rate FiO2 04/02/16 07:49 68 04/02/16 07:41 94 Room Air 04/02/16 06:00 70 23 100/60 94 Room Air 04/02/16 05:30 72 19 84 Room Air 04/02/16 05:10 64 04/02/16 05:00 64 19 114/66 95 Room Air 04/02/16 04:30 64 20 108/66 96 Room Air 04/02/16 04:00 65 20 100/66 96 Room Air 04/02/16 03:30 65 20 94 Room Air 04/02/16 03:25 67 19 105/68 95 04/02/16 03:03 83/63 04/02/16 02:30 64 16 04/02/16 02:00 65 21 96 04/02/16 01:40 64 04/02/16 01:26 36.8 66 17 125/75 99 Room Air 04/02/16 01:26 99 Room Air GEN: WNWD, in no acute distress, alert and appropriate HEENT: NC/AT, PERRL, normal sclerae, EOMI-no nystagmus on exam CARDIO: reg rate, S1/2 heard without m/g/r LUNGS: CTA bilaterally, no crackles, rales or wheezes, good diaphragmatic excursion ABD: soft, non-tender, non-distended, no rebound or guarding, +BS, reducible umbilical hernia, no fluid wave EXTREMITY: no LE swelling or edema, extremities are warm and well-perfused NEURO: CN 2-12 intact, sensation intact throughout, coordination intact (finger to nose, heel to hilliard) (reflexes) knee 2+ bilat, no asterixis MUSC: 5/5 strength throughout, no focal deficits SKIN: warm and dry Diagnostics Laboratory Results Results Past 24 Hours Test 04/02/16 00:00 04/02/16 01:51 04/02/16 02:07 04/02/16 04:12 Range/Units White Blood Count 6.54 4.8-10.8 K/uL Red Blood Count 4.39 4.7-6.1 M/uL Hemoglobin 10.1 14.0-18.0 g/dL Hematocrit 31.9 42-52 % Mean Corpuscular Volume 72.7 80-100 fL Mean Corpuscular Hemoglobin 23.0 25-34 pg Mean Corpuscular Hemoglobin Concent 31.7 32-36 g/dl Platelet Count 84 130-400 K/uL Neutrophils (%) (Auto) 73.6 % Lymphocytes (%) (Auto) 11.6 % Monocytes (%) (Auto) 11.5 % Eosinophils (%) (Auto) 2.3 % Basophils (%) (Auto) 0.8 % Neutrophils # (Auto) 4.82 1.4-6.5 K/uL Lymphocytes # (Auto) 0.76 1.2-3.4 K/uL Monocytes # (Auto) 0.75 0.11-0.59 K/uL Eosinophils # (Auto) 0.15 0-0.5 K/uL Basophils # (Auto) 0.05 0-0.2 K/uL RDW Standard Deviation 54.5 36.4-46.3 fL RDW Coefficient of Variation 20.3 11.5-14.5 % Immature Granulocyte % (Auto) 0.2 % Immature Granulocyte # (Auto) 0.01 0.00-0.02 K/uL Platelet Estimate DECREASED Urine Color YELLOW Urine Appearance CLEAR CLEAR Urine pH 5.5 4.5-7.5 Urine Specific [place] 1.019 1.000-1.030 Urine Protein NEG NEG Urine Glucose (UA) 3+ NEG Urine Ketones NEG NEG Urine Occult Blood NEG NEG Urine Nitrite NEG NEG Urine Bilirubin NEG NEG Urine Urobilinogen NEG NEG Urine Leukocyte Esterase NEG NEG Sodium Level 132 136-145 mmol/L Potassium Level 4.6 3.5-5.1 mmol/L Chloride Level 93 98-107 mmol/L Carbon Dioxide Level 28 21-32 mmol/L Anion Gap 11.0 3-11 mmol/L Blood Urea Nitrogen 11 7-18 mg/dl Creatinine 1.40 0.60-1.40 mg/dl Est Creatinine Clear Calc Drug Dose 60.1 ml/min Estimated GFR () 62.0 Estimated GFR (Non- 53.5 BUN/Creatinine Ratio 7.9 10-20 Random Glucose 572 70-99 mg/dl Calcium Level 8.2 8.5-10.1 mg/dl Magnesium Level 2.1 1.8-2.4 mg/dl Total Bilirubin 1.7 0.2-1 mg/dl Direct Bilirubin 0.8 0-0.2 mg/dl Aspartate Amino Transf (AST/SGOT) 20 15-37 U/L Alanine Aminotransferase (ALT/SGPT) 23 12-78 U/L Alkaline Phosphatase 123 45-117 U/L Total Creatine Kinase 74 39-308 U/L Creatine Kinase MB 7.4 0.5-3.6 ng/ml Creatine Kinase MB Ratio 10.0 0-3.0 Total Protein 6.1 6.4-8.2 gm/dl Albumin 3.0 3.4-5.0 gm/dl Beta-Hydroxybutyric Acid 1.18 0.2-2.81 mg/dL Bedside Troponin I 0.000 0-0.045 ng/ml Bedside Glucose 530 496 70-99 mg/dl Test 04/02/16 05:32 04/02/16 08:24 Range/Units Bedside Glucose 459 70-99 mg/dl Diagnostic Radiology CXR: IMPRESSION: No change in the low lung volumes and bibasilar linear densities suggesting subsegmental atelectasis. Normal EKG (SR61) Impression Assessment and Plan 61 yoM who presents with lightheadedness and generalized weakness with falls ( but no LOC) at home over the past couple of days. 1. Presyncope-the patient appears clinically dry on exam and this may be contributing, however, he is eating well with no infectious signs or symptoms. Will obtain orthostatics, hold diuretics, give gentle IVF. PT/OT ordered for evaluation in setting of falls at home. Will also check vitamin D, B12 levels and TSH. 2. Hyperglycemia-patient with DMII on insulin with a h/o noncompliance. No ketones present in blood or urine. He was given 30Units of regular insulin in the ER throughout the acid remover hours. Will place him on a sliding scale, cont his Lantus and consulted the inpatient glycemic pharmacist. 3. Dysphagia to solids and liquids. Will consult speech path for evaluation. 4. Anemia-likely 2.2 chronic disease. Also recently had some reported blood loss that has cleared. Was recently in the hospital with daily phlebotomy. Appears stabel with no active bleeding at this point. Cont to monitor. Coags ordered. No chemoprophylaxis for DVT ordered 2/2 thrombocytopenia. 5. CKD III-at baseline creatinine. Monitor after giving fluids as he is on the high end of his normal range. Avoid nephrotoxic substances and renally dose medications. 6. Hyponatremia-mild, likely 2/2 dehydration which is clinically apparent on exam. Reassess after IVF rehydration. 7. 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 No abdominal pain on exam. Holding diuretics in setting of dehydration. 8. Thrombocytopenia-chronic, at baseline 9. Chronic lower back pain-uses dilaudid PO PRN daily. DVT proph-SCDs, no chemoprophylaxis in setting of PLT<100K Full Code Dispo-to floor Yvonne Fabian DO Hospitalist Level of Care Med/Surg Advanced Directives Existing Living Will: Yes Existing Power of Collections Officer: Yes (MONA SISTER ) Resuscitation Status FULL RESUSCITATION VTE Prophylaxis VTE Risk Assessment Done? Y/N: Yes Risk Level: Moderate Given or contraindicated: SCD's (thrombocytopenia), Contraindicated
[2016-04-02 09:10] LABS: INR 1.3 (0.9-1.1); PROTHROMBIN TIME (PATIENT) 13.6 SECONDS (9.0-12.0)
[2016-04-02 09:38] VITALS: BP 108/76; PULSE 68; TEMP 37; O2SAT 99
[2016-04-02] MEDS: PREGABALIN 75 MG CAP PO SCH ×3 (10:19→20:58)
[2016-04-02] MEDS: RIFAXIMIN TAB 550 MG TAB PO SCH ×2 (10:19→20:59)
[2016-04-02] MEDS: LEVETIRACETAM 500 MG TAB PO SCH ×2 (10:19→20:58)
[2016-04-02] MEDS: MAGNESIUM OXIDE 400 MG TAB PO SCH ×2 (10:19→20:58)
[2016-04-02] MEDS: ESCITALOPRAM OXALATE 10 MG TAB PO SCH (10:19)
[2016-04-02] MEDS: PANTOprazole SOD 40 MG TAB PO SCH ×2 (10:19→21:01)
[2016-04-02] MEDS: LACTULOSE SYRUP 20 GM/30 ML UDC PO SCH ×3 (10:20→20:00)
[2016-04-02] MEDS: LEVOTHYROXINE 75 MCG TAB PO SCH (10:20)
[2016-04-02] MEDS: PROPRANOLOL HCL 10 MG TAB PO SCH ×2 (10:20→20:57)
[2016-04-02] MEDS ORDERED: OPTIRAY 320 IV PRN (10:30)
[2016-04-02] MEDS: INSULIN ASPART 100 UNITS/ML 3 ML PEN SC SCH ×4 (10:31→21:07)
--- NOTE | 2016-04-02 11:13 | Pharmacy Progress Note ---
Glycemic Control Intl Consult Date of Service Apr 02, 2016. Scope Glycemic Pharmacist consulted by Dr Fabian on 04/02/16 for glycemic control and to write orders per [facility] inpatient glycemic control protocol Objective Weight (Kilograms): 77.500 Accuchecks BSG (last 24hrs): Test 04/02/16 00:00 04/02/16 02:07 04/02/16 04:12 04/02/16 05:32 Random Glucose 572 mg/dl (70-99) Bedside Glucose 530 mg/dl (70-99) 496 mg/dl (70-99) 459 mg/dl (70-99) Test 04/02/16 08:51 Bedside Glucose 293 mg/dl (70-99) Laboratory Data (last 24hrs) Test 04/02/16 00:00 Anion Gap 11.0 mmol/L BUN/Creatinine Ratio 7.9 Blood Urea Nitrogen 11 mg/dl Creatinine 1.40 mg/dl Potassium Level 4.6 mmol/L Sodium Level 132 mmol/L White Blood Count 6.54 K/uL Red Blood Count 4.39 M/uL Hemoglobin 10.1 g/dL Hematocrit 31.9 % Mean Corpuscular Volume 72.7 fL Mean Corpuscular Hemoglobin 23.0 pg Mean Corpuscular Hemoglobin Concent 31.7 g/dl Platelet Count 84 K/uL Neutrophils (%) (Auto) 73.6 % Lymphocytes (%) (Auto) 11.6 % Monocytes (%) (Auto) 11.5 % Eosinophils (%) (Auto) 2.3 % Basophils (%) (Auto) 0.8 % Neutrophils # (Auto) 4.82 K/uL Lymphocytes # (Auto) 0.76 K/uL Monocytes # (Auto) 0.75 K/uL Eosinophils # (Auto) 0.15 K/uL Basophils # (Auto) 0.05 K/uL HbA1c Item Value Date Time Hemoglobin A1c 12.6 % H 03/19/16 0552 Recent Pertinent Medications Outpatient Anti-diabetic Regimen: * Lantus 28 units SQ HS * NovoLog 30 units SQ with meals Risk Factors for Insulin Resistance: * IVF: NS * Diet: T2DM Assessment & Plan ASSESSMENT: * 61 yo M admitted with syncope/chest pain, known to us from prior admissions ( most recent admission less than 2 weeks ago) * Patient presenting today in similar manner, severe hyperglycemia (BSGs in the 500's) * ED gave 3 consecutive Regular 10 unit IV boluses @ ~0230,0400,0600 * BSG leaving ED and heading to medical floor was 293 mg/dL * My plan will be to pickle solution maker where we left off last admission and try to keep him off insulin drip * Restart home Lantus dose this evening, restart Novolog coverage from prior admission * ADA & AACE recommend a goal blood sugar range 140-180 mg/dl for the majority of critically ill & non-critically ill patients. However, more stringent targets may be selected in individual cases. PLAN FOR INPATIENT GLYCEMIC CONTROL: * Basal insulin with LANTUS 32 units SQ HS * Correctional Insulin with NOVOLOG per scale ACHS or Q6hrs while NPO * Goal Range: Low 100 mg/dL - High 140 mg/dL * Correction Factor: 10 mg/dL/unit * Nutritional / Prandial insulin per carb ratio of 1 unit per 3.5 grams CHO consumed * Recent A1c from last admission indicative of poor glycemic control, will add to d/c instructions * Please note that the plan above was derived based on current level of insulin resistance and hospital stress. These recommendations are appropriate for inpatient admission only. Plan of care upon discharge will need to be reassessed to avoid potential outpatient hypo/hyperglycemia. Thank you.
--- NOTE | 2016-04-02 11:37 | DIAGNOSTIC IMAGING REPORT ---
CHEST CTA for AORTIC DISSECTION CT DOSE: 621.21 mGy.cm HISTORY: Syncope. Dizzy. TECHNIQUE: Multiaxial CT images of the chest were performed both before and after the intravenous administration of contrast to evaluate the aorta. Maximal intensity projection images were also obtained. COMPARISON STUDY: Chest 03/27/1616. Abdomen and pelvis CT 03/13/2016. FINDINGS: Noncontrast imaging through the chest shows no evidence for an intramural hematoma. Anterior cervical spinal fusion hardware is partially visualized. Normal caliber thoracic aorta with no evidence for dissection. The central pulmonary arteries are patent. No pleural or pericardial effusions. Cirrhotic liver, splenomegaly, esophageal and upper abdominal varices, and moderate to large amount of ascites is not significantly changed. Cholelithiasis. There are 2 subcentimeter hypodense lesions within the pancreatic tail. 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 The largest measures 6 mm. No mediastinal or hilar lymphadenopathy. Moderate hiatus hernia, unchanged. Bilateral gynecomastia. The central airways are patent. No pneumothorax. A few bibasilar linear densities favor subsegmental atelectasis. IMPRESSION: 1. No evidence for an aortic dissection. 2. Bibasilar linear densities consistent with subsegmental atelectasis. 3. Moderate hiatus hernia, unchanged. 4. Chronic liver, splenomegaly, abdominal and esophageal varices, and moderate to large ascites remains unchanged. Electronically signed by: Tj Weston M.D. 04/02/2016 11:36 AM Dictated Date/Time: 04/02/2016 11:27 AM
--- NOTE | 2016-04-02 16:29 | Progress Note ---
Internal Med Progress Note Date of Service: Apr 02, 2016. Provider Documentation: SUBJECTIVE: The patient was seen and examined Admitted with Presyncope likely secondary to Orthostatic hypotension Has chronic Back and Abdominal pain -takes Dilaudid 4mg TID at home OBJECTIVE: Vital Signs-as noted below Exam: General-Minimal distress at rest Eyes-Normal ENT-normal Neck-supple Lungs-clear to ausucltate bilaterally Heart-Regular Abdomen-Distended,soft,mildly tender ,bowel sound present Extremities-1 + edema bilaterally Neuro-AAOx3 Generally weak and lethargic Lab data as noted below. ASSESSMENT & PLAN: Presyncope- Likely secondary to orthostatic BP changes The patient appears clinically dry on exam No sings of infection Hold diuretics, give gentle IVF. PT/OT ordered for evaluation in setting of falls at home. Hyperglycemia- Has DMII on insulin with a h/o noncompliance. No ketones present in blood or urine. Consulted the inpatient glycemic pharmacist. Dysphagia to solids and liquids. Will consult speech path for evaluation. Anemia-likely 2.2 chronic disease. CKD III-at baseline creatinine. Monitor after giving fluids as he is on the high end of his normal range. Avoid nephrotoxic substances and renally dose medications. Hyponatremia-mild, likely 2/2 dehydration which is clinically apparent on exam. Reassess after IVF rehydration . 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 Continue Lactulose Hold Diuretics Thrombocytopenia-chronic, at baseline Chronic lower back pain-uses dilaudid PO PRN daily. Change Dilaudid 2 mg po q 6h PRN DVT proph-SCDs, no chemoprophylaxis in setting of PLT<100K Full Code DISPOSITION Awaited Vital Signs: Date Time Temp Pulse Resp B/P Pulse Ox O2 Delivery O2 Flow Rate FiO2 04/02/16 16:06 Room Air 04/02/16 09:38 37.0 68 20 108/76 99 Room Air 04/02/16 08:56 67 18 95/64 94 04/02/16 08:46 67 18 95/64 94 04/02/16 07:49 68 04/02/16 07:41 94 Room Air 04/02/16 06:00 70 23 100/60 94 Room Air 04/02/16 05:30 72 19 84 Room Air 04/02/16 05:10 64 04/02/16 05:00 64 19 114/66 95 Room Air 04/02/16 04:30 64 20 108/66 96 Room Air 04/02/16 04:00 65 20 100/66 96 Room Air 04/02/16 03:30 65 20 94 Room Air 04/02/16 03:25 67 19 105/68 95 04/02/16 03:03 83/63 04/02/16 02:30 64 16 04/02/16 02:00 65 21 96 04/02/16 01:40 64 04/02/16 01:26 36.8 66 17 125/75 99 Room Air 04/02/16 01:26 99 Room Air Lab Results: Results Past 24 Hours Test 04/02/16 00:00 04/02/16 01:51 04/02/16 02:07 04/02/16 04:12 Range/Units White Blood Count 6.54 4.8-10.8 K/uL Red Blood Count 4.39 4.7-6.1 M/uL Hemoglobin 10.1 14.0-18.0 g/dL Hematocrit 31.9 42-52 % Mean Corpuscular Volume 72.7 80-100 fL Mean Corpuscular Hemoglobin 23.0 25-34 pg Mean Corpuscular Hemoglobin Concent 31.7 32-36 g/dl Platelet Count 84 130-400 K/uL Neutrophils (%) (Auto) 73.6 % Lymphocytes (%) (Auto) 11.6 % Monocytes (%) (Auto) 11.5 % Eosinophils (%) (Auto) 2.3 % Basophils (%) (Auto) 0.8 % Neutrophils # (Auto) 4.82 1.4-6.5 K/uL Lymphocytes # (Auto) 0.76 1.2-3.4 K/uL Monocytes # (Auto) 0.75 0.11-0.59 K/uL Eosinophils # (Auto) 0.15 0-0.5 K/uL Basophils # (Auto) 0.05 0-0.2 K/uL RDW Standard Deviation 54.5 36.4-46.3 fL RDW Coefficient of Variation 20.3 11.5-14.5 % Immature Granulocyte % (Auto) 0.2 % Immature Granulocyte # (Auto) 0.01 0.00-0.02 K/uL Platelet Estimate DECREASED Prothrombin Time 13.6 9.0-12.0 SECONDS Prothromb Time International Ratio 1.3 0.9-1.1 Urine Color YELLOW Urine Appearance CLEAR CLEAR Urine pH 5.5 4.5-7.5 Urine Specific [place] 1.019 1.000-1.030 Urine Protein NEG NEG Urine Glucose (UA) 3+ NEG Urine Ketones NEG NEG Urine Occult Blood NEG NEG Urine Nitrite NEG NEG Urine Bilirubin NEG NEG Urine Urobilinogen NEG NEG Urine Leukocyte Esterase NEG NEG Sodium Level 132 136-145 mmol/L Potassium Level 4.6 3.5-5.1 mmol/L Chloride Level 93 98-107 mmol/L Carbon Dioxide Level 28 21-32 mmol/L Anion Gap 11.0 3-11 mmol/L Blood Urea Nitrogen 11 7-18 mg/dl Creatinine 1.40 0.60-1.40 mg/dl Est Creatinine Clear Calc Drug Dose 60.1 ml/min Estimated GFR () 62.0 Estimated GFR (Non- 53.5 BUN/Creatinine Ratio 7.9 10-20 Random Glucose 572 70-99 mg/dl Calcium Level 8.2 8.5-10.1 mg/dl Magnesium Level 2.1 1.8-2.4 mg/dl Total Bilirubin 1.7 0.2-1 mg/dl Direct Bilirubin 0.8 0-0.2 mg/dl Aspartate Amino Transf (AST/SGOT) 20 15-37 U/L Alanine Aminotransferase (ALT/SGPT) 23 12-78 U/L Alkaline Phosphatase 123 45-117 U/L Total Creatine Kinase 74 39-308 U/L Creatine Kinase MB 7.4 0.5-3.6 ng/ml Creatine Kinase MB Ratio 10.0 0-3.0 Total Protein 6.1 6.4-8.2 gm/dl Albumin 3.0 3.4-5.0 gm/dl Beta-Hydroxybutyric Acid 1.18 0.2-2.81 mg/dL Bedside Troponin I 0.000 0-0.045 ng/ml Bedside Glucose 530 496 70-99 mg/dl Test 04/02/16 05:32 04/02/16 08:51 04/02/16 09:24 04/02/16 10:18 Range/Units Bedside Glucose 459 293 205 70-99 mg/dl Vitamin B12 Level 1524 211-911 pg/mL 25-Hydroxy Vitamin D Total 10.2 30-100 ng/ml Folate 11.16 >5.38 ng/mL Thyroid Stimulating Hormone (TSH) 12.500 0.300-4.500 uIu/ml Test 04/02/16 11:37 Range/Units Bedside Glucose 212 70-99 mg/dl
[2016-04-02 16:36] VITALS: BP 105/68; PULSE 69; TEMP 36.5; O2SAT 94
[2016-04-02] MEDS: HYDROmorphone HCL 2 MG TAB PO PRN (17:00)
[2016-04-02 21:00] VITALS: BP 113/72; PULSE 72
[2016-04-02] MEDS ORDERED: INSULIN GLARGINE SOLOSTAR 100 UNITS/ML 3 ML PEN SC SCH (21:00)
[2016-04-02] MEDS: PYRIDOXINE HCL 50 MG TAB PO SCH (21:00)
[2016-04-03 00:23] VITALS: BP 89/60; PULSE 64; TEMP 36.6; O2SAT 95
[2016-04-03 00:31] VITALS: BP 101/64; PULSE 67
[2016-04-03] MEDS: HYDROmorphone HCL 2 MG TAB PO PRN ×3 (02:59→16:37)
[2016-04-03 06:11] LABS: MEAN CORPUSCULAR HGB CONC 32.5 g/dl (32-36)
[2016-04-03 06:21] LABS: HEMATOCRIT 27.7 % (42-52); MEAN CELL VOLUME 71.2 fL (80-100); MEAN CORPUSCULAR HEMOGLOBIN 23.1 pg (25-34); RED BLOOD COUNT 3.89 M/uL (4.7-6.1); WHITE BLOOD COUNT 5.24 K/uL (4.8-10.8)
[2016-04-03] MEDS: LEVOTHYROXINE 75 MCG TAB PO SCH (06:37)
[2016-04-03 06:45] LABS: BUN/CREATININE RATIO 8.6 (10-20); CALCIUM 7.8 mg/dl (8.5-10.1); POTASSIUM 4.5 mmol/L (3.5-5.1)
[2016-04-03 06:52] LABS: PLATELET COUNT 64 K/uL (130-400); PLT ESTIMATE DECREASED
[2016-04-03 07:06] VITALS: BP 93/59; PULSE 66; TEMP 36.5; O2SAT 95
[2016-04-03 07:14] LABS: ESTIMATED AVERAGE GLUCOSE 286 mg/dl; HA1C FLAG Normal (Normal)
[2016-04-03 07:47] VITALS: BP_SYST 92; BP_SYST 93; BP_SYST 99; BP_DIAS 57; BP_DIAS 60; BP_DIAS 69; PULSE 66; PULSE 67; TEMP 36.6; O2SAT 95
[2016-04-03] MEDS ORDERED: ERGOCALCIFEROL 50,000 INTER.UNIT CAP PO SCH (09:00)
[2016-04-03] MEDS: INSULIN ASPART 100 UNITS/ML 3 ML PEN SC SCH ×4 (09:11→21:00)
[2016-04-03] MEDS: LACTULOSE SYRUP 20 GM/30 ML UDC PO SCH ×3 (09:20→19:49)
[2016-04-03] MEDS: PROPRANOLOL HCL 10 MG TAB PO SCH ×2 (09:21→19:48)
[2016-04-03] MEDS: ESCITALOPRAM OXALATE 10 MG TAB PO SCH (09:21)
[2016-04-03] MEDS: LEVETIRACETAM 500 MG TAB PO SCH ×2 (09:21→19:47)
[2016-04-03] MEDS: PANTOprazole SOD 40 MG TAB PO SCH ×2 (09:22→19:45)
[2016-04-03] MEDS: MAGNESIUM OXIDE 400 MG TAB PO SCH ×2 (09:22→19:46)
[2016-04-03] MEDS: PREGABALIN 75 MG CAP PO SCH ×3 (09:22→19:45)
[2016-04-03] MEDS: RIFAXIMIN TAB 550 MG TAB PO SCH ×2 (09:26→19:46)
[2016-04-03] MEDS: ONDANSETRON 4MG OD TAB SL PRN ×2 (09:36→16:37)
--- NOTE | 2016-04-03 12:27 | Pharmacy Progress Note ---
Glycemic Control: Progress Nt Date of Service Apr 03, 2016. Scope Glycemic Pharmacist consulted by Dr Fabian on 04/02/16 for glycemic control and to write orders per [facility] inpatient glycemic control protocol. Objective Accuchecks BSG (last 24hrs): Test 04/02/16 16:37 04/02/16 20:24 04/03/16 05:54 04/03/16 07:40 Bedside Glucose 181 mg/dl (70-99) 174 mg/dl (70-99) 203 mg/dl (70-99) Random Glucose 184 mg/dl (70-99) Test 04/03/16 11:45 Bedside Glucose 255 mg/dl (70-99) Laboratory Data (last 24hrs) Test 04/03/16 05:54 Anion Gap 6.0 mmol/L BUN/Creatinine Ratio 8.6 Blood Urea Nitrogen 9 mg/dl Creatinine 1.00 mg/dl Hemoglobin A1c 11.6 % Potassium Level 4.5 mmol/L Sodium Level 133 mmol/L White Blood Count 5.24 K/uL HbA1c: Test 04/03/16 05:54 Hemoglobin A1c 11.6 % (4.5-5.6) H Recent Pertinent Medications Outpatient Anti-diabetic Regimen: * Lantus 32 units SQ at bedtime * NovoLog SS * A1c = 11.6 % 04/03/16 The patient is currently receiving: * Basal insulin: Lantus 32 units every 24 hours * Correctional Insulin: Novolog Correction per scale ACHS Goal Range: Low 100 mg/dL - High 140 mg/dL Correction Factor: 10 mg/dL/unit * Prandial insulin: Per carb ratio of 1 unit per 3.5 grams CHO consumed Risk Factors for Insulin Resistance: * Diet: T2DM/Low Na * Large doses of insulin as outpatient * non-compliance/elevated A1c Assessment & Plan ASSESSMENT: 04/02/16 * 61 yo M admitted with syncope/chest pain, known to us from prior admissions ( most recent admission less than 2 weeks ago) * Patient presenting today in similar manner, severe hyperglycemia (BSGs in the 500's) * ED gave 3 consecutive Regular 10 unit IV boluses @ ~0230,0400,0600 * BSG leaving ED and heading to medical floor was 293 mg/dL * My plan will be to cotton picker where we left off last admission and try to keep him off insulin drip * Restart home Lantus dose this evening, restart Novolog coverage from prior admission 04/03/16 * BSGs trended downward after bolus dosing in ED * BSG slightly elevated this AM - after review of historical data, usually fasting is elevated * increase Basal insulin by ~25% * No change to current NovoLog parameters * during prior admission a CF of 10 and CR of 3 was too aggressive - continue same * ADA & AACE recommend a goal blood sugar range 140-180 mg/dl for the majority of critically ill & non-critically ill patients. However, more stringent targets may be selected in individual cases. PLAN FOR INPATIENT GLYCEMIC CONTROL: * Lantus SQ q HS * 35 units if BSG is below 140mg/dL * 40 units if BSG is 140mg/dL or higher * Correctional Insulin with NOVOLOG per scale ACHS or Q6hrs while NPO * Goal Range: Low 100 mg/dL - High 140 mg/dL * Correction Factor: 10 mg/dL/unit * Nutritional / Prandial insulin per carb ratio of 1 unit per 3.5 grams CHO consumed * Recent A1c from last admission indicative of poor glycemic control, will add to d/c instructions RECOMMENDATIONS FOR DISCHARGE: * if non-compliance is an issue may need a further simplified regimen? * follow up with outpatient care * may benefit from discussing diabetes (and importance of compliance) with CDE? * Please note that the plan above was derived based on current level of insulin resistance and hospital stress. These recommendations are appropriate for inpatient admission only. Plan of care upon discharge will need to be reassessed to avoid potential outpatient hypo/hyperglycemia. Thank you.
[2016-04-03 13:16] VITALS: Ht 182.9 cm; Wt 79.7 kg
[2016-04-03 14:42] VITALS: BP 94/62; PULSE 78; TEMP 36.7; O2SAT 95
--- NOTE | 2016-04-03 17:14 | Progress Note ---
Internal Med Progress Note Date of Service: Apr 03, 2016. Provider Documentation: SUBJECTIVE: The patient was seen and examined Admitted with Presyncope likely secondary to Orthostatic hypotension Has chronic Back and Abdominal pain -takes Dilaudid 4mg TID at home Getting PT and doing reasonably well Still complains of back pain OBJECTIVE: Vital Signs-as noted below Exam: General-Minimal distress at rest Eyes-Normal ENT-normal Neck-supple Lungs-clear to ausucltate bilaterally Heart-Regular Abdomen-Distended,soft,mildly tender ,bowel sound present Extremities-1 + edema bilaterally Neuro-AAOx3 Generally weak and lethargic Lab data as noted below. ASSESSMENT & PLAN: Presyncope- Likely secondary to orthostatic BP changes The patient appears clinically dry on exam No sings of infection Hold diuretics, give gentle IVF. PT/OT ordered for evaluation in setting of falls at home. Getting PT/OT -doing good Hyperglycemia- Has DMII on insulin with a h/o noncompliance. No ketones present in blood or urine. Consulted the inpatient glycemic pharmacist. Blood suger is controlled Ascites Requires frequent Paracentesis Last Paracentesis on 04/01 -10 liters US before discharge and possible Paracentesis to prevent earlier admission Dysphagia to solids and liquids. Will consult speech path for evaluation. Tolerating diet Anemia-likely 2.2 chronic disease. CKD III-at baseline creatinine. Monitor after giving fluids as he is on the high end of his normal range. Avoid nephrotoxic substances and renally dose medications. Hyponatremia-mild, likely 2/2 dehydration which is clinically apparent on exam. Reassess after IVF rehydration . 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 Continue Lactulose Hold Diuretics Will need to restart diuretics Thrombocytopenia-chronic, at baseline Chronic lower back pain-uses dilaudid PO PRN daily. Change Dilaudid 2 mg po q 6h PRN Will decrease Frequency to Q8h DVT proph-SCDs, no chemoprophylaxis in setting of PLT<100K Full Code DISPOSITION May take a few days Vital Signs: Date Time Temp Pulse Resp B/P Pulse Ox O2 Delivery O2 Flow Rate FiO2 04/03/16 14:42 36.7 78 20 94/62 95 04/03/16 07:47 36.6 66 18 93/57 95 Room Air 67 99/69 67 92/60 04/03/16 07:06 36.5 66 20 93/59 95 04/03/16 00:31 67 101/64 04/03/16 00:23 36.6 64 18 89/60 95 Room Air 04/02/16 23:59 Room Air 04/02/16 21:00 72 113/72 04/02/16 20:00 Room Air Lab Results: Results Past 24 Hours Test 04/02/16 20:24 04/03/16 05:54 04/03/16 07:40 04/03/16 11:45 Range/Units Bedside Glucose 174 203 255 70-99 mg/dl White Blood Count 5.24 4.8-10.8 K/uL Red Blood Count 3.89 4.7-6.1 M/uL Hemoglobin 9.0 14.0-18.0 g/dL Hematocrit 27.7 42-52 % Mean Corpuscular Volume 71.2 80-100 fL Mean Corpuscular Hemoglobin 23.1 25-34 pg Mean Corpuscular Hemoglobin Concent 32.5 32-36 g/dl RDW Standard Deviation 53.4 36.4-46.3 fL RDW Coefficient of Variation 20.6 11.5-14.5 % Platelet Count 64 130-400 K/uL Platelet Estimate DECREASED Sodium Level 133 136-145 mmol/L Potassium Level 4.5 3.5-5.1 mmol/L Chloride Level 100 98-107 mmol/L Carbon Dioxide Level 27 21-32 mmol/L Anion Gap 6.0 3-11 mmol/L Blood Urea Nitrogen 9 7-18 mg/dl Creatinine 1.00 0.60-1.40 mg/dl Est Creatinine Clear Calc Drug Dose 84.1 ml/min Estimated GFR () 93.1 Estimated GFR (Non- 80.3 BUN/Creatinine Ratio 8.6 10-20 Random Glucose 184 70-99 mg/dl Estimated Average Glucose 286 mg/dl Hemoglobin A1c 11.6 4.5-5.6 % Calcium Level 7.8 8.5-10.1 mg/dl Magnesium Level 2.0 1.8-2.4 mg/dl
[2016-04-03] MEDS: PYRIDOXINE HCL 50 MG TAB PO SCH (19:49)
[2016-04-03] MEDS: INSULIN GLARGINE SOLOSTAR 100 UNITS/ML 3 ML PEN SC SCH (21:11)
[2016-04-04] VITALS (7 sets, daily range): BP systolic 93–107; BP diastolic 47–70; PULSE 62–77; TEMP 36.5–36.8; O2SAT 94–97
[2016-04-04] MEDS ORDERED: INSULIN ASPART 100 UNITS/ML 3 ML PEN SC SCH (02:00)
[2016-04-04] MEDS: HYDROmorphone HCL 2 MG TAB PO PRN ×3 (04:27→20:56)
[2016-04-04] MEDS: ONDANSETRON 4MG OD TAB SL PRN ×2 (04:27→10:10)
[2016-04-04] MEDS: LEVOTHYROXINE 75 MCG TAB PO SCH (06:25)
[2016-04-04] MEDS: INSULIN ASPART 100 UNITS/ML 3 ML PEN SC SCH ×4 (09:09→20:53)
[2016-04-04] MEDS: PROPRANOLOL HCL 10 MG TAB PO SCH ×2 (09:57→21:01)
[2016-04-04] MEDS: LACTULOSE SYRUP 20 GM/30 ML UDC PO SCH ×3 (09:57→20:56)
[2016-04-04] MEDS: ESCITALOPRAM OXALATE 10 MG TAB PO SCH (09:58)
[2016-04-04] MEDS: LEVETIRACETAM 500 MG TAB PO SCH ×2 (09:58→20:58)
[2016-04-04] MEDS: PREGABALIN 75 MG CAP PO SCH ×3 (09:59→20:55)
[2016-04-04] MEDS: MAGNESIUM OXIDE 400 MG TAB PO SCH ×2 (09:59→20:59)
[2016-04-04] MEDS: RIFAXIMIN TAB 550 MG TAB PO SCH ×2 (10:08→21:02)
[2016-04-04] MEDS: PANTOprazole SOD 40 MG TAB PO SCH ×2 (10:08→21:02)
--- NOTE | 2016-04-04 13:46 | Pharmacy Progress Note ---
Glycemic Control: Progress Nt Date of Service Apr 04, 2016. Scope Glycemic Pharmacist consulted by Dr Fabian on 04/02/16 for glycemic control and to write orders per [facility] inpatient glycemic control protocol. Objective Accuchecks BSG (last 24hrs): Test 04/03/16 16:46 04/03/16 20:35 04/04/16 01:46 04/04/16 07:58 Bedside Glucose 131 mg/dl (70-99) 73 mg/dl (70-99) 125 mg/dl (70-99) 216 mg/dl (70-99) Test 04/04/16 11:29 Bedside Glucose 253 mg/dl (70-99) HbA1c: Test 04/03/16 05:54 Hemoglobin A1c 11.6 % (4.5-5.6) H Recent Pertinent Medications Outpatient Anti-diabetic Regimen: * Lantus 32 units SQ at bedtime * NovoLog SS * A1c = 11.6 % 04/03/16 The patient is currently receiving: * Basal insulin: Lantus 40 units SQ q PM (however dose was decreased last evening secondary to low BSG) * Correctional Insulin: NovoLog Correction per scale ACHS Goal Range: Low 110 mg/dL - High 150 mg/dL Correction Factor: 10 mg/dL/unit * Prandial insulin: Per carb ratio of 1 unit per 4 grams CHO consumed Risk Factors for Insulin Resistance: * Diet: T2DM/Low Na * Large doses of insulin as outpatient * non-compliance/elevated A1c Assessment & Plan ASSESSMENT: 04/02/16 * 61 yo M admitted with syncope/chest pain, known to us from prior admissions ( most recent admission less than 2 weeks ago) * Patient presenting today in similar manner, severe hyperglycemia (BSGs in the 500's) * ED gave 3 consecutive Regular 10 unit IV boluses @ ~0230,0400,0600 * BSG leaving ED and heading to medical floor was 293 mg/dL * My plan will be to greens picker where we left off last admission and try to keep him off insulin drip * Restart home Lantus dose this evening, restart Novolog coverage from prior admission 04/03/16 * BSGs trended downward after bolus dosing in ED * BSG slightly elevated this AM - after review of historical data, usually fasting is elevated * increase Basal insulin by ~25% * No change to current NovoLog parameters * during prior admission a CF of 10 and CR of 3 was too aggressive - continue same 04/04/16 * Quite elevated BSGs on admission, have since trended downward and were below goal range last evening * secondary to "stacking" of NovoLog doses vs over aggressive treatment of hyperglycemia? * Now, will decrease basal insulin toward home dose to avoid further BSGs below goal range * BSG pre-lunch elevated and large dose of NovoLog given for both breakfast and lunch coverage despite loosening of parameters * may have below goal BSG pre-dinner - if this is so, we will try to correct the "stacking" on 04/05 * ADA & AACE recommend a goal blood sugar range 140-180 mg/dl for the majority of critically ill & non-critically ill patients. However, more stringent targets may be selected in individual cases. PLAN FOR INPATIENT GLYCEMIC CONTROL: * Lantus SQ q HS * 15 units if BSG is below 140mg/dL * 30 units if BSG is 140mg/dL or higher * Correctional Insulin with NOVOLOG per scale ACHS or Q6hrs while NPO * Goal Range: Low 110 mg/dL - High 150 mg/dL * Correction Factor: 12 mg/dL/unit (may consider 15mg/dL/unit if hypoglycemia occurs) * Nutritional / Prandial insulin per carb ratio of 1 unit per 4 grams CHO consumed (may consider 5-6 if hypoglycemia occurs) * Recent A1c from last admission indicative of poor glycemic control, will add to d/c instructions RECOMMENDATIONS FOR DISCHARGE: * if non-compliance is an issue may need a further simplified regimen? * follow up with outpatient care * may benefit from discussing diabetes (and importance of compliance) with CDE? * Please note that the plan above was derived based on current level of insulin resistance and hospital stress. These recommendations are appropriate for inpatient admission only. Plan of care upon discharge will need to be reassessed to avoid potential outpatient hypo/hyperglycemia. Thank you.
--- NOTE | 2016-04-04 16:26 | Progress Note ---
Medicine Progress Note Date & Time of Visit: Apr 04, 2016 at 16:01. Subjective Pt was seen and examined Lying in bed watching TV with no distress Pt said that he is having chest pain that is chronic he said that the pain come and goes and non radiated He also had back pain that is chronic He wants to know if the dilaudid can switch to IV because when he is in the hospital the po dilaudid sometimes causes n/v Objective Last 8 Hrs Date Time Temp Pulse Resp B/P Pulse Ox O2 Delivery O2 Flow Rate FiO2 04/04/16 14:30 70 93/55 96 Room Air Physical Exam: General- no acute distress Head- atraumatic Eyes- PERRL, EOMI ENT- oropharynx clear Neck- supple, no JVD Lungs- clear to auscultation and percussion Heart- no murmur, no gallop Abdomen- normal bowel sounds, +distended Extremities- no calf tenderness Neuro- alert, oriented x 3; PERRL, EOMI; Skin- warm & dry Laboratory Results: Last 24 Hours Test 04/03/16 16:46 04/03/16 20:35 04/04/16 01:46 04/04/16 07:58 Bedside Glucose 131 mg/dl 73 mg/dl 125 mg/dl 216 mg/dl Test 04/04/16 11:29 Bedside Glucose 253 mg/dl Assessment & Plan Presyncope- Likely secondary to orthostatic BP changes The patient appears clinically dry on exam No sings of infection Continue Holding diuretics Continue PT/OT clinically stable Diabetes Type 2 Uncontrolled. h/o noncompliance with insulin Hba1c 11.6 (04/03/16) pharmacist consulted for glycemic control On lantus as per protocol on insulin coverage Continue monitor BS Chronic Chest Pain EKG did not show any significant changes CT chest done on admission showed no evidence of aortic dissection continue monitor Ascites Requires frequent Paracentesis Last Paracentesis on 04/01 -10 liters Will repeat u/s tomorrow Dysphagia to solids and liquids. Speech consulted recommended to continue regular diet aspiration precaution Tolerating diet Anemia- Secondary to anemia chronic disease. Hbg 9 today continue monitor cbc CKD III- Creatine stable Avoid nephrotoxic agents Continue monitor BMP Hyponatremia Possible related to dehydration stable . 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 Continue Lactulose, rifaximin Hold Diuretics repeat u/s in am Thrombocytopenia Platelet at baseline Stable Chronic lower back pain Dilaudid was changed to 2 mg po to Q8h Continue current management DVT pX SCDs due to low platelet CODE STATUS Full Code Current Inpatient Medications: Current Inpatient Medications Medications (Trade) Dose Ordered Sig/Ryan Route Start Time Stop Time Status Last Admin Dose Admin Insulin Aspart (novoLOG ASPART) SLIDING SCALE If C... ACHS SC 04/02/16 11:00 05/02/16 10:59 04/04/16 12:43 27 UNITS Glucose (Glucose 40% Gel) 15-30 GRAMS 15 GRAMS... UD PRN PO 04/02/16 07:15 05/02/16 07:14 Glucose (Glucose Chew Tab) 4-8 Tablets 4 Tabl... UD PRN PO 04/02/16 07:15 05/02/16 07:14 Dextrose (Dextrose 50% 50ML Syringe) 25-50ML OF 50% DW IV FOR... UD PRN IV 04/02/16 07:15 05/02/16 07:14 Glucagon (Glucagon Inj) 1 mg UD PRN SQ 04/02/16 07:15 05/02/16 07:14 Miscellaneous Information (Consult Glycemic Management Pharmacy) 1 ea UD PRN N/A 04/02/16 08:54 05/02/16 08:53 Escitalopram Oxalate (Lexapro Tab) 10 mg DAILY PO 04/02/16 10:00 05/02/16 09:59 04/04/16 09:58 10 MG Lactulose (Chronulac Syrup) 20 gm TID PO 04/02/16 10:00 05/02/16 09:59 04/04/16 14:35 20 GM Levetiracetam (Keppra Tab) 500 mg AMHS PO 04/02/16 10:00 05/02/16 09:59 04/04/16 09:58 500 MG Levothyroxine Sodium (Synthroid Tab) 75 mcg DAILYBB PO 04/02/16 10:00 05/02/16 09:59 04/04/16 06:25 75 MCG Magnesium Oxide (Mag-Ox Tab) 400 mg BID PO 04/02/16 10:00 05/02/16 09:59 04/04/16 09:59 400 MG Ondansetron HCl (Zofran Odt) 4 mg Q6H PRN SL 04/02/16 08:15 05/02/16 08:14 04/04/16 10:10 4 MG Pantoprazole Sodium (Protonix Tab) 40 mg BID PO 04/02/16 10:00 05/02/16 09:59 04/04/16 10:08 40 MG Pregabalin (Lyrica Cap) 75 mg TID PO 04/02/16 10:00 05/02/16 09:59 04/04/16 14:35 75 MG Propranolol HCl (Inderal Tab) 10 mg BID PO 04/02/16 10:00 05/02/16 09:59 04/04/16 09:57 10 MG Rifaximin (Xifaxan Tab) 550 mg AMHS PO 04/02/16 10:00 05/02/16 09:59 04/04/16 10:08 550 MG Pyridoxine HCl (Vitamin B-6 Tab) 25 mg HS PO 04/02/16 21:00 05/02/16 20:59 04/03/16 19:49 25 MG Ioversol (Optiray 320) 125 ml UD PRN IV 04/02/16 10:30 04/06/16 10:29 Ergocalciferol (Vitamin D Cap) 50,000 interunit Mo@0900 PO 04/03/16 09:00 05/08/16 09:01 04/03/16 09:26 50,000 INTERUNIT Insulin Glargine (Lantus Solostar Pen) SEE PROTOCOL HS SC 04/03/16 21:00 05/03/16 20:59 04/03/16 21:11 16 UNIT Hydromorphone HCl (Dilaudid Tab) 2 mg Q8H PRN PO 04/04/16 00:30 04/18/16 00:29 04/04/16 12:46 2 MG
[2016-04-04] MEDS: INSULIN GLARGINE SOLOSTAR 100 UNITS/ML 3 ML PEN SC SCH (20:55)
[2016-04-04] MEDS: PYRIDOXINE HCL 50 MG TAB PO SCH (21:03)
[2016-04-05 00:32] VITALS: BP 90/53; PULSE 67; TEMP 36.7; O2SAT 96
[2016-04-05] MEDS: LEVOTHYROXINE 75 MCG TAB PO SCH (06:24)
[2016-04-05] MEDS: HYDROmorphone HCL 2 MG TAB PO PRN ×2 (06:24→17:57)
[2016-04-05 06:34] LABS: MEAN CORPUSCULAR HGB CONC 32.7 g/dl (32-36)
[2016-04-05 06:51] LABS: HEMATOCRIT 26.6 % (42-52); MEAN CELL VOLUME 71.5 fL (80-100); MEAN CORPUSCULAR HEMOGLOBIN 23.4 pg (25-34); RED BLOOD COUNT 3.72 M/uL (4.7-6.1); WHITE BLOOD COUNT 5.58 K/uL (4.8-10.8)
[2016-04-05 07:10] LABS: BUN/CREATININE RATIO 11.4 (10-20); CALCIUM 7.9 mg/dl (8.5-10.1); POTASSIUM 4.5 mmol/L (3.5-5.1)
[2016-04-05 07:21] LABS: PLATELET COUNT 70 K/uL (130-400)
[2016-04-05 07:44] VITALS: BP 102/58; PULSE 65; TEMP 36.6; O2SAT 95
--- NOTE | 2016-04-05 08:40 | DIAGNOSTIC IMAGING REPORT ---
Limited abdominal ultrasound ASCITES-ABDOMEN LIMITED CLINICAL HISTORY: ascites ascites TECHNIQUE: Survey abdominal ultrasound COMPARISON STUDY: 03/27/2016 FINDINGS: Mild/moderate ascites. Somewhat diminished as compared to the prior exam. IMPRESSION: Mild/moderate ascites. One appears somewhat diminished compared to the prior exam Electronically signed by: Marcin Tariq M.D. 04/05/2016 8:39 AM Dictated Date/Time: 04/05/2016 8:37 AM
[2016-04-05] MEDS: ONDANSETRON 4MG OD TAB SL PRN ×3 (08:53→20:09)
[2016-04-05] MEDS: INSULIN ASPART 100 UNITS/ML 3 ML PEN SC SCH ×4 (09:00→20:19)
[2016-04-05] MEDS: LACTULOSE SYRUP 20 GM/30 ML UDC PO SCH ×3 (10:38→20:06)
[2016-04-05] MEDS: PREGABALIN 75 MG CAP PO SCH ×3 (10:38→20:07)
--- NOTE | 2016-04-05 10:39 | Pharmacy Progress Note ---
Glycemic Control: Progress Nt Date of Service Apr 05, 2016. Scope Glycemic Pharmacist consulted by Dr Fabian on 04/02/16 for glycemic control and to write orders per [facility] inpatient glycemic control protocol. Objective Accuchecks BSG (last 24hrs): Test 04/04/16 11:29 04/04/16 16:45 04/04/16 20:25 04/05/16 05:46 Bedside Glucose 253 mg/dl (70-99) 96 mg/dl (70-99) 131 mg/dl (70-99) Random Glucose 189 mg/dl (70-99) Test 04/05/16 07:37 Bedside Glucose 221 mg/dl (70-99) Laboratory Data (last 24hrs) Test 04/05/16 05:46 Anion Gap 9.0 mmol/L BUN/Creatinine Ratio 11.4 Blood Urea Nitrogen 11 mg/dl Creatinine 1.00 mg/dl Potassium Level 4.5 mmol/L Sodium Level 138 mmol/L White Blood Count 5.58 K/uL HbA1c: Test 04/03/16 05:54 Hemoglobin A1c 11.6 % (4.5-5.6) H Recent Pertinent Medications Outpatient Anti-diabetic Regimen: * Lantus 32 units SQ at bedtime * NovoLog SS * A1c = 11.6 % 04/03/16 The patient is currently receiving: * Basal insulin: Lantus 30 units SQ daily (1/2 dose for BSG less than 140mg/dL) * Correctional Insulin: NovoLog Correction per scale ACHS Goal Range: Low 110 mg/dL - High 150 mg/dL Correction Factor: 12 mg/dL/unit * Prandial insulin: Per carb ratio of 1 unit per 4 grams CHO consumed Risk Factors for Insulin Resistance: * Diet: T2DM/Low Na * Large doses of insulin as outpatient * non-compliance/elevated A1c Assessment & Plan ASSESSMENT: 04/02/16 * 61 yo M admitted with syncope/chest pain, known to us from prior admissions ( most recent admission less than 2 weeks ago) * Patient presenting today in similar manner, severe hyperglycemia (BSGs in the 500's) * ED gave 3 consecutive Regular 10 unit IV boluses @ ~0230,0400,0600 * BSG leaving ED and heading to medical floor was 293 mg/dL * My plan will be to molded goods spot picker where we left off last admission and try to keep him off insulin drip * Restart home Lantus dose this evening, restart Novolog coverage from prior admission 04/03/16 * BSGs trended downward after bolus dosing in ED * BSG slightly elevated this AM - after review of historical data, usually fasting is elevated * increase Basal insulin by ~25% * No change to current NovoLog parameters * during prior admission a CF of 10 and CR of 3 was too aggressive - continue same 04/04/16 * Quite elevated BSGs on admission, have since trended downward and were below goal range last evening * secondary to "stacking" of NovoLog doses vs over aggressive treatment of hyperglycemia? * Now, will decrease basal insulin toward home dose to avoid further BSGs below goal range * BSG pre-lunch elevated and large dose of NovoLog given for both breakfast and lunch coverage despite loosening of parameters * may have below goal BSG pre-dinner - if this is so, we will try to correct the "stacking" on 04/0504/05/16 * BSGs started elevated yesterday and then slowly tapered downward * Again stacking occurred (large doses of NovoLog with breakfast and lunch produce a below goal BSG at dinner) * change lunch correction factor and carb ratio * Fasting BSG elevated, however parameters prohibiting full dose of Lantus to be given at HS * change threshold to give Lantus at night * ADA & AACE recommend a goal blood sugar range 140-180 mg/dl for the majority of critically ill & non-critically ill patients. However, more stringent targets may be selected in individual cases. PLAN FOR INPATIENT GLYCEMIC CONTROL: * Lantus SQ q HS * 15 units if BSG is below 120mg/dL * 30 units if BSG is 120mg/dL or higher * Correctional Insulin with NOVOLOG per scale ACHS or Q6hrs while NPO * Goal Range: Low 110 mg/dL - High 150 mg/dL * Correction Factor: 12 mg/dL/unit for B/D/HS, 15mg/dL/unit for L * Carb ratio of 1 unit per 4 grams CHO consumed for B/D/HS, 1:5 for L * Recent A1c from last admission indicative of poor glycemic control, will add to d/c instructions RECOMMENDATIONS FOR DISCHARGE: * if non-compliance is an issue may need a further simplified regimen? * follow up with outpatient care * may benefit from discussing diabetes (and importance of compliance) with CDE? * Please note that the plan above was derived based on current level of insulin resistance and hospital stress. These recommendations are appropriate for inpatient admission only. Plan of care upon discharge will need to be reassessed to avoid potential outpatient hypo/hyperglycemia. Thank you.
[2016-04-05] MEDS: PANTOprazole SOD 40 MG TAB PO SCH ×2 (12:30→20:08)
[2016-04-05] MEDS: LEVETIRACETAM 500 MG TAB PO SCH ×2 (12:31→20:07)
[2016-04-05] MEDS: RIFAXIMIN TAB 550 MG TAB PO SCH ×2 (12:31→20:08)
[2016-04-05] MEDS: ESCITALOPRAM OXALATE 10 MG TAB PO SCH (12:31)
[2016-04-05] MEDS: PROPRANOLOL HCL 10 MG TAB PO SCH ×2 (12:31→20:06)
[2016-04-05] MEDS: MAGNESIUM OXIDE 400 MG TAB PO SCH ×2 (12:32→20:07)
[2016-04-05 16:09] VITALS: BP 106/64; PULSE 71; TEMP 36.6; O2SAT 96
--- NOTE | 2016-04-05 18:13 | Progress Note ---
Medicine Progress Note Date & Time of Visit: Apr 05, 2016 at 18:04. Subjective Pt was seen and examined Lying in bed with no distress Pt said that he was feeling very nauseated today denies any chest pain, palpitation, dizziness and sob Objective Last 8 Hrs Date Time Temp Pulse Resp B/P Pulse Ox O2 Delivery O2 Flow Rate FiO2 04/05/16 16:09 36.6 71 16 106/64 96 Room Air 04/05/16 15:02 Room Air Physical Exam: General- no acute distress Head- atraumatic Eyes- PERRL, EOMI ENT- oropharynx clear Neck- supple, no JVD Lungs- clear to auscultation and percussion Heart- no murmur, no gallop Abdomen- normal bowel sounds, +distended Extremities- no calf tenderness Neuro- alert, oriented x 3; PERRL, EOMI; Skin- warm & dry Laboratory Results: Last 24 Hours Test 04/04/16 20:25 04/05/16 05:46 04/05/16 07:37 Bedside Glucose 131 mg/dl 221 mg/dl White Blood Count 5.58 K/uL Red Blood Count 3.72 M/uL Hemoglobin 8.7 g/dL Hematocrit 26.6 % Mean Corpuscular Volume 71.5 fL Mean Corpuscular Hemoglobin 23.4 pg Mean Corpuscular Hemoglobin Concent 32.7 g/dl RDW Standard Deviation 54.1 fL RDW Coefficient of Variation 20.8 % Platelet Count 70 K/uL Sodium Level 138 mmol/L Potassium Level 4.5 mmol/L Chloride Level 105 mmol/L Carbon Dioxide Level 24 mmol/L Anion Gap 9.0 mmol/L Blood Urea Nitrogen 11 mg/dl Creatinine 1.00 mg/dl Est Creatinine Clear Calc Drug Dose 84.1 ml/min Estimated GFR () 93.1 Estimated GFR (Non- 80.3 BUN/Creatinine Ratio 11.4 Random Glucose 189 mg/dl Calcium Level 7.9 mg/dl Assessment & Plan Presyncope- Likely secondary to orthostatic BP changes The patient appears clinically dry on exam No sings of infection Continue Holding diuretics Continue PT/OT clinically stable Diabetes Type 2 Uncontrolled. h/o noncompliance with insulin Hba1c 11.6 (04/03/16) pharmacist consulted for glycemic control On lantus as per protocol on insulin coverage Continue monitor BS Chronic Chest Pain EKG did not show any significant changes CT chest done on admission showed no evidence of aortic dissection Asymptomatic Ascites Requires frequent Paracentesis Last Paracentesis on 04/01 -10 liters U/S showed mild to moderate ascites Discussed finding with IR that suggested not alot fluid to tap Pt said that he usually got his paracentesis every 10 to 15 days Continue monitor Dysphagia to solids and liquids. Speech consulted recommended to continue regular diet aspiration precaution Tolerating diet Anemia- Secondary to anemia chronic disease. Hbg 8.7 today continue monitor cbc CKD III- Creatine stable Avoid nephrotoxic agents Continue monitor BMP Hyponatremia Possible related to dehydration stable . 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 Continue Lactulose, rifaximin Hold Diuretics U/S showed mild to moderate ascites Thrombocytopenia Platelet 70 Stable Chronic lower back pain Dilaudid was changed to 2 mg po to Q8h Continue current management DVT pX SCDs due to low platelet CODE STATUS Full Code Current Inpatient Medications: Current Inpatient Medications Medications (Trade) Dose Ordered Sig/Ryan Route Start Time Stop Time Status Last Admin Dose Admin Glucose (Glucose 40% Gel) 15-30 GRAMS 15 GRAMS... UD PRN PO 04/02/16 07:15 05/02/16 07:14 Glucose (Glucose Chew Tab) 4-8 Tablets 4 Tabl... UD PRN PO 04/02/16 07:15 05/02/16 07:14 Dextrose (Dextrose 50% 50ML Syringe) 25-50ML OF 50% DW IV FOR... UD PRN IV 04/02/16 07:15 05/02/16 07:14 Glucagon (Glucagon Inj) 1 mg UD PRN SQ 04/02/16 07:15 05/02/16 07:14 Miscellaneous Information (Consult Glycemic Management Pharmacy) 1 ea UD PRN N/A 04/02/16 08:54 05/02/16 08:53 Escitalopram Oxalate (Lexapro Tab) 10 mg DAILY PO 04/02/16 10:00 05/02/16 09:59 04/05/16 12:31 10 MG Lactulose (Chronulac Syrup) 20 gm TID PO 04/02/16 10:00 05/02/16 09:59 04/05/16 12:32 20 GM Levetiracetam (Keppra Tab) 500 mg AMHS PO 04/02/16 10:00 05/02/16 09:59 04/05/16 12:31 500 MG Levothyroxine Sodium (Synthroid Tab) 75 mcg DAILYBB PO 04/02/16 10:00 05/02/16 09:59 04/05/16 06:24 75 MCG Magnesium Oxide (Mag-Ox Tab) 400 mg BID PO 04/02/16 10:00 05/02/16 09:59 04/05/16 12:32 400 MG Ondansetron HCl (Zofran Odt) 4 mg Q6H PRN SL 04/02/16 08:15 05/02/16 08:14 04/05/16 14:50 4 MG Pantoprazole Sodium (Protonix Tab) 40 mg BID PO 04/02/16 10:00 05/02/16 09:59 04/05/16 12:30 40 MG Pregabalin (Lyrica Cap) 75 mg TID PO 04/02/16 10:00 05/02/16 09:59 04/05/16 12:30 75 MG Propranolol HCl (Inderal Tab) 10 mg BID PO 04/02/16 10:00 05/02/16 09:59 04/05/16 12:31 10 MG Rifaximin (Xifaxan Tab) 550 mg AMHS PO 04/02/16 10:00 05/02/16 09:59 04/05/16 12:31 550 MG Pyridoxine HCl (Vitamin B-6 Tab) 25 mg HS PO 04/02/16 21:00 05/02/16 20:59 04/04/16 21:03 25 MG Ioversol (Optiray 320) 125 ml UD PRN IV 04/02/16 10:30 04/06/16 10:29 Ergocalciferol (Vitamin D Cap) 50,000 interunit Mo@0900 PO 04/03/16 09:00 05/08/16 09:01 04/03/16 09:26 50,000 INTERUNIT Insulin Glargine (Lantus Solostar Pen) SEE PROTOCOL HS SC 04/03/16 21:00 05/03/16 20:59 04/04/16 20:55 15 UNIT Hydromorphone HCl (Dilaudid Tab) 2 mg Q8H PRN PO 04/04/16 00:30 04/18/16 00:29 3/1/17 17:57 2 MG Insulin Aspart (novoLOG ASPART) SLIDING SCALE If C... DAILY@0630,1630,2100 NC 04/05/16 08:00 05/05/16 07:59 04/05/16 17:56 27 UNITS Insulin Aspart (novoLOG ASPART) SLIDING SCALE If C... QDL NC 04/05/16 12:00 05/05/16 11:59 04/05/16 12:35 20 UNITS
[2016-04-05] MEDS: PYRIDOXINE HCL 50 MG TAB PO SCH (20:08)
[2016-04-05] MEDS: INSULIN GLARGINE SOLOSTAR 100 UNITS/ML 3 ML PEN SC SCH (20:19)
[2016-04-05 23:50] VITALS: BP 86/49; PULSE 68; TEMP 36.9; O2SAT 94
[2016-04-06] VITALS (7 sets, daily range): BP systolic 93–107; BP diastolic 55–64; PULSE 60–76; TEMP 36.6; O2SAT 96–98
[2016-04-06] MEDS: HYDROmorphone HCL 2 MG TAB PO PRN ×4 (01:54→22:24)
[2016-04-06] MEDS: LEVOTHYROXINE 75 MCG TAB PO SCH (06:09)
[2016-04-06] MEDS: LEVETIRACETAM 500 MG TAB PO SCH ×2 (08:25→20:24)
[2016-04-06] MEDS: ESCITALOPRAM OXALATE 10 MG TAB PO SCH (08:25)
[2016-04-06] MEDS: PROPRANOLOL HCL 10 MG TAB PO SCH ×2 (08:26→20:24)
[2016-04-06] MEDS: RIFAXIMIN TAB 550 MG TAB PO SCH ×2 (08:26→20:24)
[2016-04-06] MEDS: MAGNESIUM OXIDE 400 MG TAB PO SCH ×2 (08:26→20:24)
[2016-04-06] MEDS: PANTOprazole SOD 40 MG TAB PO SCH ×2 (08:26→20:24)
[2016-04-06] MEDS: LACTULOSE SYRUP 20 GM/30 ML UDC PO SCH ×3 (08:27→20:24)
[2016-04-06] MEDS: PREGABALIN 75 MG CAP PO SCH ×3 (08:30→20:24)
[2016-04-06] MEDS: ONDANSETRON 4MG OD TAB SL PRN ×3 (08:44→20:24)
[2016-04-06] MEDS: INSULIN ASPART 100 UNITS/ML 3 ML PEN SC SCH ×4 (09:15→20:39)
[2016-04-06] MEDS ORDERED: SPIRONOLACTONE 100 MG TAB PO ONE (14:03)
[2016-04-06] MEDS ORDERED: SPIRONOLACTONE 25 MG TAB PO ONE (14:15)
[2016-04-06] MEDS ORDERED: NURSING VERBAL MED ORDER ONE (15:30)
--- NOTE | 2016-04-06 17:03 | Progress Note ---
Medicine Progress Note Date & Time of Visit: Apr 06, 2016 at 16:56. Subjective Pt was seen and examined Lying in bed with no acute distress Pt said that he has not eaten today Nurse said that pt ate his breakfast and his lunch Pt said that he feels very nauseated He said that he has not been urinated much today he said that he is having a lot of pain denies any fever, sob and chest pain Objective Last 8 Hrs Date Time Temp Pulse Resp B/P Pulse Ox O2 Delivery O2 Flow Rate FiO2 04/06/16 15:25 98 Room Air 04/06/16 15:23 36.6 66 18 97/62 97 Room Air 04/06/16 11:59 36.6 60 14 101/64 97 Room Air Physical Exam: General- no acute distress Head- atraumatic Eyes- PERRL, EOMI ENT- oropharynx clear Neck- supple, no JVD Lungs- clear to auscultation and percussion Heart- no murmur, no gallop Abdomen- normal bowel sounds, +distended Extremities- no calf tenderness Neuro- alert, oriented x 3; PERRL, EOMI; Skin- warm & dry Laboratory Results: Last 24 Hours Test 04/05/16 19:49 04/06/16 07:39 04/06/16 11:42 Bedside Glucose 201 mg/dl 201 mg/dl 189 mg/dl Assessment & Plan Presyncope- Likely secondary to orthostatic BP changes The patient appears clinically dry on exam No sings of infection Restart spironolactone Continue PT/OT clinically stable Diabetes Type 2 Uncontrolled. h/o noncompliance with insulin Hba1c 11.6 (04/03/16) pharmacist consulted for glycemic control On lantus as per protocol on insulin coverage Continue monitor BS Chronic Chest Pain EKG did not show any significant changes CT chest done on admission showed no evidence of aortic dissection Asymptomatic Ascites Requires frequent Paracentesis Last Paracentesis on 04/01 -10 liters U/S showed mild to moderate ascites Discussed finding with IR that suggested not alot fluid to tap Pt said that he usually got his paracentesis every 10 to 15 days Continue monitor closely Dysphagia to solids and liquids. Speech consulted recommended to continue regular diet aspiration precaution Tolerating diet Anemia- Secondary to anemia chronic disease. Hbg 8.7 today continue monitor cbc CKD III- Creatine stable Avoid nephrotoxic agents Continue monitor BMP Hyponatremia Possible related to dehydration stable . 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 Continue Lactulose, rifaximin restart spironolactone at 50mg today and continue his home dose tomorrow will restart lasix upon discharge will need to monitor BP because BP is running on the low side U/S showed mild to moderate ascites Stable Thrombocytopenia Platelet at baseline Stable Chronic lower back pain Dilaudid was changed to 2 mg po to Q8h Continue current management DVT pX SCDs due to low platelet CODE STATUS Full Code Current Inpatient Medications: Current Inpatient Medications Medications (Trade) Dose Ordered Sig/Ryan Route Start Time Stop Time Status Last Admin Dose Admin Glucose (Glucose 40% Gel) 15-30 GRAMS 15 GRAMS... UD PRN PO 04/02/16 07:15 05/02/16 07:14 Glucose (Glucose Chew Tab) 4-8 Tablets 4 Tabl... UD PRN PO 04/02/16 07:15 05/02/16 07:14 Dextrose (Dextrose 50% 50ML Syringe) 25-50ML OF 50% DW IV FOR... UD PRN IV 04/02/16 07:15 05/02/16 07:14 Glucagon (Glucagon Inj) 1 mg UD PRN SQ 04/02/16 07:15 05/02/16 07:14 Miscellaneous Information (Consult Glycemic Management Pharmacy) 1 ea UD PRN N/A 04/02/16 08:54 05/02/16 08:53 Escitalopram Oxalate (Lexapro Tab) 10 mg DAILY PO 04/02/16 10:00 05/02/16 09:59 04/06/16 08:25 10 MG Lactulose (Chronulac Syrup) 20 gm TID PO 04/02/16 10:00 05/02/16 09:59 04/06/16 14:46 20 GM Levetiracetam (Keppra Tab) 500 mg AMHS PO 04/02/16 10:00 05/02/16 09:59 04/06/16 08:25 500 MG Levothyroxine Sodium (Synthroid Tab) 75 mcg DAILYBB PO 04/02/16 10:00 05/02/16 09:59 04/06/16 06:09 75 MCG Magnesium Oxide (Mag-Ox Tab) 400 mg BID PO 04/02/16 10:00 05/02/16 09:59 3/2/17 08:26 400 MG Pantoprazole Sodium (Protonix Tab) 40 mg BID PO 04/02/16 10:00 05/02/16 09:59 04/06/16 08:26 40 MG Pregabalin (Lyrica Cap) 75 mg TID PO 04/02/16 10:00 05/02/16 09:59 04/06/16 11:53 75 MG Propranolol HCl (Inderal Tab) 10 mg BID PO 04/02/16 10:00 05/02/16 09:59 04/06/16 08:26 10 MG Rifaximin (Xifaxan Tab) 550 mg AMHS PO 04/02/16 10:00 05/02/16 09:59 04/06/16 08:26 550 MG Pyridoxine HCl (Vitamin B-6 Tab) 25 mg HS PO 04/02/16 21:00 05/02/16 20:59 04/05/16 20:08 25 MG Ergocalciferol (Vitamin D Cap) 50,000 interunit Mo@0900 PO 04/03/16 09:00 05/08/16 09:01 04/03/16 09:26 50,000 INTERUNIT Insulin Glargine (Lantus Solostar Pen) SEE PROTOCOL HS VT 04/03/16 21:00 05/03/16 20:59 04/05/16 20:19 30 UNIT Insulin Aspart (novoLOG ASPART) SLIDING SCALE If C... DAILY@0630,1630,2100 VT 04/05/16 08:00 05/05/16 07:59 04/06/16 09:15 5 UNITS Insulin Aspart (novoLOG ASPART) SLIDING SCALE If C... QDL SC 04/05/16 12:00 05/05/16 11:59 04/06/16 12:55 15 UNITS Ondansetron HCl (Zofran Odt) 4 mg Q4 PRN SL 04/05/16 20:00 05/05/16 19:59 04/06/16 12:52 4 MG Spironolactone (Aldactone Tab) 100 mg QAM PO 04/07/16 08:00 05/07/16 07:59 Hydromorphone HCl (Dilaudid Tab) 2 mg Q6H PRN PO 04/06/16 15:30 04/20/16 15:29 04/06/16 15:40 2 MG
[2016-04-06] MEDS ORDERED: HYDROmorphone HCL 2 MG TAB PO PRN (18:00)
[2016-04-06] MEDS: PYRIDOXINE HCL 50 MG TAB PO SCH (20:24)
[2016-04-06] MEDS: INSULIN GLARGINE SOLOSTAR 100 UNITS/ML 3 ML PEN SC SCH (20:39)
[2016-04-07] MEDS: ONDANSETRON 4MG OD TAB SL PRN ×4 (02:32→16:47)
[2016-04-07] MEDS: LEVOTHYROXINE 75 MCG TAB PO SCH (05:56)
[2016-04-07] MEDS: HYDROmorphone HCL 2 MG TAB PO PRN ×3 (05:57→17:40)
[2016-04-07 06:26] LABS: MEAN CORPUSCULAR HGB CONC 31.7 g/dl (32-36)
[2016-04-07 06:35] LABS: HEMATOCRIT 29.3 % (42-52); MEAN CELL VOLUME 73.3 fL (80-100); MEAN CORPUSCULAR HEMOGLOBIN 23.3 pg (25-34); WHITE BLOOD COUNT 5.56 K/uL (4.8-10.8)
[2016-04-07 06:53] LABS: BUN/CREATININE RATIO 10.1 (10-20); CALCIUM 7.9 mg/dl (8.5-10.1); CREATININE 1.1 mg/dl (0.60-1.40); POTASSIUM 4.2 mmol/L (3.5-5.1)
[2016-04-07 07:29] LABS: PLATELET COUNT 82 K/uL (130-400)
[2016-04-07] MEDS ORDERED: SPIRONOLACTONE 100 MG TAB PO SCH (08:00)
[2016-04-07 08:19] VITALS: BP 104/62; PULSE 64; TEMP 36.5; O2SAT 95
[2016-04-07] MEDS: RIFAXIMIN TAB 550 MG TAB PO SCH (08:53)
[2016-04-07] MEDS: LEVETIRACETAM 500 MG TAB PO SCH (08:54)
[2016-04-07] MEDS: MAGNESIUM OXIDE 400 MG TAB PO SCH (08:54)
[2016-04-07] MEDS: PROPRANOLOL HCL 10 MG TAB PO SCH (08:54)
[2016-04-07] MEDS: ESCITALOPRAM OXALATE 10 MG TAB PO SCH (08:54)
[2016-04-07] MEDS: PANTOprazole SOD 40 MG TAB PO SCH (08:54)
[2016-04-07] MEDS: LACTULOSE SYRUP 20 GM/30 ML UDC PO SCH ×2 (08:54→13:22)
[2016-04-07] MEDS: INSULIN ASPART 100 UNITS/ML 3 ML PEN SC SCH ×3 (09:02→18:25)
[2016-04-07] MEDS: PREGABALIN 75 MG CAP PO SCH ×2 (09:05→13:29)
--- NOTE | 2016-04-07 09:34 | Pharmacy Progress Note ---
Glycemic Control: Progress Nt Date of Service Apr 07, 2016. Scope Glycemic Pharmacist consulted by Dr Fabian on 04/02/16 for glycemic control and to write orders per [facility] inpatient glycemic control protocol. Objective Accuchecks BSG (last 24hrs): Test 04/06/16 11:42 04/06/16 16:38 04/06/16 19:44 04/07/16 05:42 Bedside Glucose 189 mg/dl (70-99) 231 mg/dl (70-99) 235 mg/dl (70-99) Random Glucose 133 mg/dl (70-99) Test 04/07/16 07:40 Bedside Glucose 142 mg/dl (70-99) Laboratory Data (last 24hrs) Test 04/07/16 05:42 Anion Gap 8.0 mmol/L BUN/Creatinine Ratio 10.1 Blood Urea Nitrogen 11 mg/dl Creatinine 1.10 mg/dl Potassium Level 4.2 mmol/L Sodium Level 139 mmol/L White Blood Count 5.56 K/uL HbA1c: Test 04/03/16 05:54 Hemoglobin A1c 11.6 % (4.5-5.6) H Recent Pertinent Medications Outpatient Anti-diabetic Regimen: * Lantus 32 units SQ at bedtime * NovoLog SS * A1c = 11.6 % 04/03/16 The patient is currently receiving: * Basal insulin: Lantus 30 units SQ q PM (1/2 dose for BSG less than 140mg/dL) * Correctional Insulin: NovoLog Correction per scale ACHS Goal Range: Low 110 mg/dL - High 150 mg/dL Correction Factor: 12 mg/dL/unit with B/D/HS, 15mg/dL/ unit with L * Prandial insulin: Per carb ratio of 1 unit per 4 grams CHO consumed with B/D/HS, 1:5 for L Risk Factors for Insulin Resistance: * Diet: T2DM/Low Na * Large doses of insulin as outpatient * non-compliance/elevated A1c Assessment & Plan ASSESSMENT: 04/02/16 * 61 yo M admitted with syncope/chest pain, known to us from prior admissions ( most recent admission less than 2 weeks ago) * Patient presenting today in similar manner, severe hyperglycemia (BSGs in the 500's) * ED gave 3 consecutive Regular 10 unit IV boluses @ ~0230,0400,0600 * BSG leaving ED and heading to medical floor was 293 mg/dL * My plan will be to case picker where we left off last admission and try to keep him off insulin drip * Restart home Lantus dose this evening, restart Novolog coverage from prior admission 04/03/16 * BSGs trended downward after bolus dosing in ED * BSG slightly elevated this AM - after review of historical data, usually fasting is elevated * increase Basal insulin by ~25% * No change to current NovoLog parameters * during prior admission a CF of 10 and CR of 3 was too aggressive - continue same 04/04/16 * Quite elevated BSGs on admission, have since trended downward and were below goal range last evening * secondary to "stacking" of NovoLog doses vs over aggressive treatment of hyperglycemia? * Now, will decrease basal insulin toward home dose to avoid further BSGs below goal range * BSG pre-lunch elevated and large dose of NovoLog given for both breakfast and lunch coverage despite loosening of parameters * may have below goal BSG pre-dinner - if this is so, we will try to correct the "stacking" on 04/0504/05/16 * BSGs started elevated yesterday and then slowly tapered downward * Again stacking occurred (large doses of NovoLog with breakfast and lunch produce a below goal BSG at dinner) * change lunch correction factor and carb ratio * Fasting BSG elevated, however parameters prohibiting full dose of Lantus to be given at HS * change threshold to give Lantus at night 04/07/16 * Fasting BSG much improved today - likely Lantus is reaching steady state * no change to basal insulin * Poor PO intake yesterday with breakfast made it difficult to assess if the change in CF/CR with lunch was beneficial * continue current parameters and collect further data- update tomorrow as needed * ADA & AACE recommend a goal blood sugar range 140-180 mg/dl for the majority of critically ill & non-critically ill patients. However, more stringent targets may be selected in individual cases. PLAN FOR INPATIENT GLYCEMIC CONTROL: * Lantus SQ q HS * 15 units if BSG is below 120mg/dL * 30 units if BSG is 120mg/dL or higher * Correctional Insulin with NOVOLOG per scale ACHS or Q6hrs while NPO * Goal Range: Low 110 mg/dL - High 150 mg/dL * Correction Factor: 12 mg/dL/unit for B/D/HS, 15mg/dL/unit for L * Carb ratio of 1 unit per 4 grams CHO consumed for B/D/HS, 1:5 for L * Recent A1c from last admission indicative of poor glycemic control, will add to d/c instructions RECOMMENDATIONS FOR DISCHARGE: * if non-compliance is an issue may need a further simplified regimen? * follow up with outpatient care * may benefit from discussing diabetes (and importance of compliance) with CDE? * Please note that the plan above was derived based on current level of insulin resistance and hospital stress. These recommendations are appropriate for inpatient admission only. Plan of care upon discharge will need to be reassessed to avoid potential outpatient hypo/hyperglycemia. Thank you.
[2016-04-07 10:55] VITALS: BP 104/62; PULSE 64; TEMP 36.5; O2SAT 95
[2016-04-07] MEDS ORDERED: FUROSEMIDE 20 MG TAB PO ONE (15:54)
--- NOTE | 2016-04-07 15:54 | Progress Note ---
Medicine Progress Note Date & Time of Visit: Apr 07, 2016 at 15:36. Subjective Pt was seen and examined Lying in bed with no distress pt said that he ate half of his breakfast this morning he said that he continue feeling nauseated denies any chest pain, palpitation, dizziness and SOB Objective Last 8 Hrs Date Time Temp Pulse Resp B/P Pulse Ox O2 Delivery O2 Flow Rate FiO2 04/07/16 12:19 Room Air 04/07/16 10:55 36.5 64 24 95 Room Air 04/07/16 08:19 36.5 64 24 104/62 95 Room Air Physical Exam: General- no acute distress Head- atraumatic Eyes- PERRL, EOMI ENT- oropharynx clear Neck- supple, no JVD Lungs- clear to auscultation and percussion Heart- no murmur, no gallop Abdomen- normal bowel sounds, +distended Extremities- no calf tenderness Neuro- alert, oriented x 3; PERRL, EOMI; Skin- warm & dry Laboratory Results: Last 24 Hours Test 04/06/16 16:38 04/06/16 19:44 04/07/16 05:42 04/07/16 07:40 Bedside Glucose 231 mg/dl 235 mg/dl 142 mg/dl White Blood Count 5.56 K/uL Red Blood Count 4.00 M/uL Hemoglobin 9.3 g/dL Hematocrit 29.3 % Mean Corpuscular Volume 73.3 fL Mean Corpuscular Hemoglobin 23.3 pg Mean Corpuscular Hemoglobin Concent 31.7 g/dl RDW Standard Deviation 56.2 fL RDW Coefficient of Variation 20.8 % Platelet Count 82 K/uL Sodium Level 139 mmol/L Potassium Level 4.2 mmol/L Chloride Level 106 mmol/L Carbon Dioxide Level 25 mmol/L Anion Gap 8.0 mmol/L Blood Urea Nitrogen 11 mg/dl Creatinine 1.10 mg/dl Est Creatinine Clear Calc Drug Dose 76.4 ml/min Estimated GFR () 82.9 Estimated GFR (Non- 71.6 BUN/Creatinine Ratio 10.1 Random Glucose 133 mg/dl Calcium Level 7.9 mg/dl Test 04/07/16 11:27 Bedside Glucose 225 mg/dl Assessment & Plan Presyncope- Likely secondary to orthostatic BP changes The patient appears clinically dry on exam No sings of infection Restart spironolactone Continue PT/OT clinically stable Diabetes Type 2 Uncontrolled. h/o noncompliance with insulin Hba1c 11.6 (04/03/16) pharmacist consulted for glycemic control On lantus as per protocol on insulin coverage Continue monitor BS Chronic Chest Pain EKG did not show any significant changes CT chest done on admission showed no evidence of aortic dissection Asymptomatic resolved Ascites Requires frequent Paracentesis Last Paracentesis on 04/01 -10 liters U/S showed mild to moderate ascites Discussed finding with IR that suggested not alot fluid to tap Pt said that he usually got his paracentesis every 10 to 15 days Continue monitor closely will need to get paracentesis done next week Dysphagia to solids and liquids. Speech consulted recommended to continue regular diet aspiration precaution Tolerating diet Anemia- Secondary to anemia chronic disease. Hbg 9.3 today continue monitor cbc stable CKD III- Creatine stable Avoid nephrotoxic agents Continue monitor BMP Hyponatremia Possible related to dehydration stable . 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 Continue Lactulose, rifaximin continue spironolactone 100mg Lasix resume today with decrease dose to 1/2 due to low BP BP stable U/S showed mild to moderate ascites Stable Thrombocytopenia Platelet at baseline Stable Chronic lower back pain Dilaudid was changed to 2 mg po to Q6h Pt said that he missed his last appt with pain management because he was in the hospital he said that he does not have any pain med [place] Prescription drug monitor reviewed with no issues Last script was filled on 02/15/16 for Dilaudid Continue current management DVT pX SCDs due to low platelet CODE STATUS Full Code Current Inpatient Medications: Current Inpatient Medications Medications (Trade) Dose Ordered Sig/Ryan Route Start Time Stop Time Status Last Admin Dose Admin Glucose (Glucose 40% Gel) 15-30 GRAMS 15 GRAMS... UD PRN PO 04/02/16 07:15 05/02/16 07:14 Glucose (Glucose Chew Tab) 4-8 Tablets 4 Tabl... UD PRN PO 04/02/16 07:15 05/02/16 07:14 Dextrose (Dextrose 50% 50ML Syringe) 25-50ML OF 50% DW IV FOR... UD PRN IV 04/02/16 07:15 05/02/16 07:14 Glucagon (Glucagon Inj) 1 mg UD PRN SQ 04/02/16 07:15 05/02/16 07:14 Miscellaneous Information (Consult Glycemic Management Pharmacy) 1 ea UD PRN N/A 04/02/16 08:54 05/02/16 08:53 Escitalopram Oxalate (Lexapro Tab) 10 mg DAILY PO 04/02/16 10:00 05/02/16 09:59 04/07/16 08:54 10 MG Lactulose (Chronulac Syrup) 20 gm TID PO 04/02/16 10:00 05/02/16 09:59 04/07/16 13:22 20 GM Levetiracetam (Keppra Tab) 500 mg AMHS PO 04/02/16 10:00 05/02/16 09:59 04/07/16 08:54 500 MG Levothyroxine Sodium (Synthroid Tab) 75 mcg DAILYBB PO 04/02/16 10:00 05/02/16 09:59 04/07/16 05:56 75 MCG Magnesium Oxide (Mag-Ox Tab) 400 mg BID PO 04/02/16 10:00 05/02/16 09:59 04/07/16 08:54 400 MG Pantoprazole Sodium (Protonix Tab) 40 mg BID PO 04/02/16 10:00 05/02/16 09:59 04/07/16 08:54 40 MG Pregabalin (Lyrica Cap) 75 mg TID PO 04/02/16 10:00 05/02/16 09:59 04/07/16 13:29 75 MG Propranolol HCl (Inderal Tab) 10 mg BID PO 04/02/16 10:00 05/02/16 09:59 04/07/16 08:54 10 MG Rifaximin (Xifaxan Tab) 550 mg AMHS PO 04/02/16 10:00 05/02/16 09:59 04/07/16 08:53 550 MG Pyridoxine HCl (Vitamin B-6 Tab) 25 mg HS PO 04/02/16 21:00 05/02/16 20:59 04/06/16 20:24 25 MG Ergocalciferol (Vitamin D Cap) 50,000 interunit Mo@0900 PO 04/03/16 09:00 05/08/16 09:01 04/03/16 09:26 50,000 INTERUNIT Insulin Glargine (Lantus Solostar Pen) SEE PROTOCOL HS IN 04/03/16 21:00 05/03/16 20:59 04/06/16 20:39 30 UNIT Insulin Aspart (novoLOG ASPART) SLIDING SCALE If C... DAILY@0630,1630,2100 IN 04/05/16 08:00 05/05/16 07:59 04/07/16 09:02 6 UNITS Insulin Aspart (novoLOG ASPART) SLIDING SCALE If C... QDL IN 04/05/16 12:00 05/05/16 11:59 04/07/16 13:36 15 UNITS Ondansetron HCl (Zofran Odt) 4 mg Q4 PRN SL 04/05/16 20:00 05/05/16 19:59 04/07/16 13:21 4 MG Spironolactone (Aldactone Tab) 100 mg QAM PO 04/07/16 08:00 05/07/16 07:59 04/07/16 08:54 100 MG Hydromorphone HCl (Dilaudid Tab) 2 mg Q6H PRN PO 04/06/16 15:30 04/20/16 15:29 04/07/16 11:43 2 MG
[2016-04-07 15:55] VITALS: BP 111/63; PULSE 62; TEMP 36.5; O2SAT 98
[2016-04-07] MEDS ORDERED: LSX20 PO (16:03)
[2016-04-07] MEDS ORDERED: DLD2 PO (16:03)
--- NOTE | 2016-04-07 16:13 | Discharge Instructions ---
Discharge Instructions Admission Reason for Admission: Pre-Syncope Discharge Discharge Diagnosis / Problem: Pre syncope, Ascites/cirrhosis, Uncontrolled diabetes, back pain Discharge Goals Goal(s): Decrease discomfort, Improve function, Improve disease control Activity Recommendations Activity Limitations: resume your previous activity (as tolerated) . Instructions / Follow-Up Instructions / Follow-Up Follow up with your Primary care physician Dr. Munoz on 04/13 at 11:10 am Follow up next week for paracentesis as an outpatient Continue PT/OT Use your walker to ambulate Fall precaution Follow up with pain management script given for dilaudid with [address] after taking the pain med. Lasix can be titrate up to his previous dose if blood pressure stable (by your physician) Current Hospital Diet Patient's current hospital diet: Diabetes Type 2 Diet, Low Sodium Diet (2gm Na) Discharge Diet Recommended Diet: Low Sodium Diet (2gm Na), Diabetes Type 2 Diet Pending Studies Studies pending at discharge: no Laboratory Results Hemoglobin A1c Test 04/03/16 05:54 Range/Units Estimated Average Glucose 286 mg/dl Hemoglobin A1c 11.6 H 4.5-5.6 % Medical Emergencies . Who to Call and When: Medical Emergencies: If at any time you feel your situation is an emergency, please call 911 immediately. . Non-Emergent Contact Non-Emergency issues call your: Primary Care Provider Call Non-Emergent contact if: you have a fever, your pain is not controlled, you have any medication questions . . "Provider Documentation" section prepared by Shiva French. VTE Core Measure Inpt VTE Proph given/why not?: SCD's (thrombocytopenia), Contraindicated [place] Drug Monitoring Program Search Results: no issues identified
[2016-04-07] MEDS ORDERED: FUROSEMIDE 20 MG TAB PO SCH (20:00)
--- NOTE | 2016-04-09 08:51 | Discharge Summary ---
Discharge Summary Date of Service Apr 09, 2016. Discharge Summary Admission Date: Apr 03, 2016 at 13:47 Discharge Date: Apr 07, 2016 Discharge Disposition: Home Principal Diagnosis: Presyncope Secondary Diagnoses/Problems: Ascites/cirrhosis BETANCOURT Uncontrolled diabetes Chronic back pain CKD stage 3 Consultations: PT/OT Medication Reconciliation Continued Medications: Escitalopram (Lexapro) 10 Mg Tab 10 MG PO DAILY, TAB Insulin Aspart (Novolog Penfill) 100 Unit/Ml Inj SQ TIDM via SSI Insulin Glargine (Lantus) 100 Unit/Ml Inj 32 UNITS SC HS, VIAL Lactulose (Chronulac) 10 Gm/15 Ml Syrp 20 GM PO TID Levetiractam (Levetiracetam) 500 Mg Tab 500 MG PO AMHS Levothyroxine Sodium (Synthroid) 75 Mcg Tab 75 MCG PO DAILY, TAB Magnesium Oxide (Mag-Ox) 400 Mg Tab 400 MG PO BID Ondasetron Odt (Zofran Odt) 4 Mg Tab 4 MG SL Q6H PRN for Nausea or Vomiting, TAB Pantoprazole (Protonix) 40 Mg Tab 40 MG PO BID, TAB Pregabalin (Lyrica) 75 Mg Cap 75 MG PO TID, CAP Propranolol (Inderal) 10 Mg Tab 10 MG PO BID, TAB Pyridoxine Hcl (Vitamin B-6) 25 Mg Tab 25 MG PO HS Rifaximin (Xifaxan) 550 Mg Tab 550 MG PO AMHS ONE AT BREAKFAST AND ONE AT SUPPER. Spironolactone (Aldactone) 100 Mg Tab 1 TAB PO DAILY for 30 Days, #30 TAB 11 Refills Triamcinolone Acet (Aristocort 0.1%) 90 Appln/30 Gm Cr 1 APPL EXT BID PRN for dermatitis Discontinued Medications: Furosemide (Lasix) 40 Mg Tab 40 MG PO BID, TAB Hydromorphone Hcl (Dilaudid) 4 Mg Tab 1 TAB PO TID PRN for Pain for 30 Days, #90 TAB Admission Information HPI (per Admitting provider): 61 yo ESLD patient presents with generalized weakness and lightheadedness since being discharged from the hospital 5 days ago. On 03/28, he underwent a paracentesis with 10L of fluid removed. Since being home he states that he has had multiple falls without loss of consciousness along with the following symptoms. Cough for the past 1-2 days, cold intolerance, nausea without any appetite (however, reports just yesterday eating cereal for breakfast, sandwich for lunch, pork chops and potatoes for dinner) diarrhea for which he was seen in the ER two days ago and since has resolved, some blood per rectum associated with that diarrhea that has since cleared up, headache, chronic abdominal pain, chronic chest pain that is describes as sharp and in the anterior chest--both chronic pains are at their baseline and he has been seen for this in the past. He denies palpitations, fevers, chills, UTI symptoms and doesn't appear to have any stroke like symptoms including no facial droop, difficulty speaking, blurry vision, focal deficits. He does mention some dysphagia to solids and liquids which started one week ago. Physical Exam (per Admitting): GEN: WNWD, in no acute distress, alert and appropriate HEENT: NC/AT, PERRL, normal sclerae, EOMI-no nystagmus on exam CARDIO: reg rate, S1/2 heard without m/g/r LUNGS: CTA bilaterally, no crackles, rales or wheezes, good diaphragmatic excursion ABD: soft, non-tender, non-distended, no rebound or guarding, +BS, reducible umbilical hernia, no fluid wave EXTREMITY: no LE swelling or edema, extremities are warm and well-perfused NEURO: CN 2-12 intact, sensation intact throughout, coordination intact (finger to nose, heel to hilliard) (reflexes) knee 2+ bilat, no asterixis MUSC: 5/5 strength throughout, no focal deficits SKIN: warm and dry Hospital Course Presyncope- Likely secondary to orthostatic BP changes The patient appears clinically dry on exam No sings of infection Restart spironolactone Continue PT/OT clinically stable Diabetes Type 2 Uncontrolled. h/o noncompliance with insulin Hba1c 11.6 (04/03/16) pharmacist consulted for glycemic control On lantus as per protocol on insulin coverage Continue monitor BS Chronic Chest Pain EKG did not show any significant changes CT chest done on admission showed no evidence of aortic dissection Asymptomatic resolved Ascites Requires frequent Paracentesis Last Paracentesis on 04/01 -10 liters U/S showed mild to moderate ascites Discussed finding with IR that suggested not alot fluid to tap Pt said that he usually got his paracentesis every 10 to 15 days Continue monitor closely will need to get paracentesis done next week Dysphagia to solids and liquids. Speech consulted recommended to continue regular diet aspiration precaution Tolerating diet Anemia- Secondary to anemia chronic disease. Hbg 9.3 today continue monitor cbc stable CKD III- Creatine stable Avoid nephrotoxic agents Continue monitor BMP Hyponatremia Possible related to dehydration stable . 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 Continue Lactulose, rifaximin continue spironolactone 100mg Lasix resume today with decrease dose to 1/2 due to low BP BP stable U/S showed mild to moderate ascites Stable Thrombocytopenia Platelet at baseline Stable Chronic lower back pain Dilaudid was changed to 2 mg po to Q6h Pt said that he missed his last appt with pain management because he was in the hospital he said that he does not have any pain med PA Prescription drug monitor reviewed with no issues Last script was filled on 02/15/16 for Dilaudid Continue current management DVT pX SCDs due to low platelet CODE STATUS Full Code Total time spent on discharge = 35 minutes This includes examination of the patient, discharge planning, medication reconciliation, and communication with other providers. Discharge Instructions DI: Medical v4 Discharge Instructions Admission Reason for Admission: Pre-Syncope Discharge Discharge Diagnosis / Problem: Pre syncope, Ascites/cirrhosis, Uncontrolled diabetes, back pain Discharge Goals Goal(s): Decrease discomfort, Improve function, Improve disease control Activity Recommendations Activity Limitations: resume your previous activity (as tolerated) . Instructions / Follow-Up Instructions / Follow-Up Follow up with your Primary care physician Dr. Munoz on 04/13 at 11:10 am Follow up next week for paracentesis as an outpatient Continue PT/OT Use your walker to ambulate Fall precaution Follow up with pain management script given for dilaudid with [address] after taking the pain med. Lasix can be titrate up to his previous dose if blood pressure stable (by your physician) Current Hospital Diet Patient's current hospital diet: Diabetes Type 2 Diet, Low Sodium Diet (2gm Na) Discharge Diet Recommended Diet: Low Sodium Diet (2gm Na), Diabetes Type 2 Diet Pending Studies Studies pending at discharge: no Laboratory Results Hemoglobin A1c Test 04/03/16 05:54 Range/Units Estimated Average Glucose 286 mg/dl Hemoglobin A1c 11.6 H 4.5-5.6 % Medical Emergencies . Who to Call and When: Medical Emergencies: If at any time you feel your situation is an emergency, please call 911 immediately. . Non-Emergent Contact Non-Emergency issues call your: Primary Care Provider Call Non-Emergent contact if: you have a fever, your pain is not controlled, you have any medication questions . . "Provider Documentation" section prepared by Shiva French. VTE Core Measure Inpt VTE Proph given/why not?: SCD's (thrombocytopenia), Contraindicated [place] Drug Monitoring Program Search Results: no issues identified Additional Copies To Chacha Munoz D.O.
[2016-05-23] MEDS ORDERED: HYDR4TAB78 PO (09:03)
[2016-07-01] MEDS ORDERED: MAGN400T5 PO (01:36)
[2016-07-01] MEDS ORDERED: DIPH50TA10 PO (02:00)
[2016-07-01] MEDS ORDERED: TRMCR130WC EXT (03:58)
[2016-07-01] MEDS ORDERED: LACT10SO17 PO (04:04)
[2016-07-01] MEDS ORDERED: PROP10TA7 PO (04:52)
[2016-07-01] MEDS ORDERED: PYRI25TA PO (04:52)
[2016-07-01] MEDS ORDERED: FURO-85 PO (05:55)
[2016-07-01] MEDS ORDERED: LEVO75TA PO (12:02)
[2016-07-01] MEDS ORDERED: ONDA4TAB10 SL (12:02)
[2016-07-01] MEDS ORDERED: RIFA550T2 PO (13:45)
[2016-07-01] MEDS ORDERED: FERR1TAB13 PO (14:58)
[2016-07-01] MEDS ORDERED: INSDGI SC (16:08)
[2016-07-01] MEDS ORDERED: LEVE500T PO (16:08)
[2016-08-22] MEDS ORDERED: MRLP17 PO (09:03)
[2016-08-22] MEDS ORDERED: INSDGI SC (09:03)
[2016-08-29] MEDS ORDERED: POLY335019 PO (12:27)
[2016-08-29] MEDS ORDERED: INSDGI SC (12:27)
[2016-10-28] MEDS ORDERED: XFX550 PO (14:18)
[2016-11-06] MEDS ORDERED: LCTX PO (14:29)
[2016-11-06] MEDS ORDERED: CLIN300C2 PO (14:29)
== END 2016-04-07 19:15 | disposition home health service (06) | DRG 312 ==
LOC: ENRESERVDT → ENRESERVTM → EDBD 01:15 → C.EDB 01:16 → C.4E 09:09 → OBSVTOIN 04-03 13:47
PROVIDERS: ADMIT Hospitalist; ATTEND Internal Medicine
DX: I95.1 Orthostatic hypotension (principal); I85.00 Esophageal varices without bleeding; K76.6 Portal hypertension; I31.3 Pericardial effusion (noninflammatory); E87.1 Hypo-osmolality and hyponatremia; R18.8 Other ascites; K55.1 Chronic vascular disorders of intestine; K75.81 Nonalcoholic steatohepatitis (NASH); F41.9 Anxiety disorder, unspecified; F32.9 Major depressive disorder, single episode, unspecified; E78.5 Hyperlipidemia, unspecified; E03.9 Hypothyroidism, unspecified; Z86.711 Personal history of pulmonary embolism; G40.909 Epilepsy, unspecified, not intractable, without status epilepticus; Z95.1 Presence of aortocoronary bypass graft; Z82.49 Family history of ischemic heart disease and other diseases of the circulatory system; Z80.3 Family history of malignant neoplasm of breast; Z88.6 Allergy status to analgesic agent; Z88.0 Allergy status to penicillin; Z88.1 Allergy status to other antibiotic agents; Z88.3 Allergy status to other anti-infective agents; Z79.899 Other long term (current) drug therapy; Z79.4 Long term (current) use of insulin; R13.10 Dysphagia, unspecified; D69.6 Thrombocytopenia, unspecified; K74.60 Unspecified cirrhosis of liver; G89.29 Other chronic pain; N18.3 Chronic kidney disease, stage 3 (moderate); E11.65 Type 2 diabetes mellitus with hyperglycemia; D63.8 Anemia in other chronic diseases classified elsewhere; E86.0 Dehydration; M54.5 Low back pain; R07.9 Chest pain, unspecified; Z91.14 Patient's other noncompliance with medication regimen

== ENCOUNTER 2016-04-09 04:52 | Observation (INO) | payer OTHER ==
[~2016-04-09] VITALS: Ht 182.9 cm; Wt 84.5 kg
[~2016-04-09 04:52] MED LIST changes: +DLD2 PO; -FRS/40 PO; -HYDR4TAB78 PO; +LSX20 PO; -ZNT150 PO
[2016-04-09 05:38] LABS: MEAN CORPUSCULAR HGB CONC 32.7 g/dl (32-36)
[2016-04-09 05:50] LABS: HEMATOCRIT 26.9 % (42-52); MEAN CELL VOLUME 70.4 fL (80-100); RED BLOOD COUNT 3.82 M/uL (4.7-6.1); WHITE BLOOD COUNT 5.83 K/uL (4.8-10.8)
[2016-04-09 05:58] LABS: INR 1.3 (0.9-1.1); PARTIAL THROMBOPLASTIN RATIO 1.1; PROTHROMBIN TIME (PATIENT) 13.7 SECONDS (9.0-12.0)
[2016-04-09] MEDS ORDERED: HYDR2TAB48 PO (05:58)
[2016-04-09 06:00] LABS: PLATELET COUNT 79 K/uL (130-400); PLT ESTIMATE DECREASED
[2016-04-09] MEDS ORDERED: HYDROmorphone INJ 1 MG/ML SYR IV STA (06:03)
[2016-04-09 06:15] LABS: CREATININE 1.1 mg/dl (0.60-1.40)
[2016-04-09 06:17] LABS: POTASSIUM 4.4 mmol/L (3.5-5.1)
[2016-04-09 06:22] LABS: BUN/CREATININE RATIO 10.1 (10-20)
--- NOTE | 2016-04-09 06:28 | EMERGENCY ROOM VISIT NOTE ---
History Report prepared by Alla: Elmira Moise Under the Supervision of: Dr. Quinten Lira M.D. First contact with patient: 05:01 Stated Complaint: SHORTNESS OF BREATH/DIZZINESS/WEAKNESS History of Present Illness The patient is a 61 year old male who presents to the Emergency Room with complaints of worsening shortness of breath with onset this morning. The patient was discharged from the hospital two days ago. The patient states that he is fluid overloading, which is causing his shortness of breath. The patient' s last paracenteses were 03/14 and 04/01. The patient has had leg weakness, a burning sensation from the knees down, abdominal pain. This morning, he was trying to eat something when he stood up and his legs almost gave out. Source of History: patient Onset: this morning Position: chest Quality: other (shortness of breath) Timing: worsening Associated Symptoms: + abdominal pain, + weakness (leg weakness) Note: The patient has a burning sensation from the knees down. Review of Systems See HPI for pertinent positives & negatives. A total of 10 systems reviewed and were otherwise negative. 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 Surgical Problems: (1) H/O esophagogastroduodenoscopy (2) H/O knee surgery (3) S/P cervical spinal fusion (4) S/P IVC filter (5) S/P lumbar fusion (6) S/P T&A (status post tonsillectomy and adenoidectomy) Family History FH: CAD (coronary artery disease) FATHER FH: breast cancer MOTHER Social History Smoking Status: Never Smoker Alcohol Use: none Drug Use: none Marital Status: single Housing Status: lives alone Occupation Status: retired Current/Historical Medications Scheduled Escitalopram (Lexapro), 10 MG PO DAILY Furosemide (Lasix), 20 MG PO BID Insulin Aspart (Novolog Penfill), SQ TIDM Insulin Glargine (Lantus), 32 UNITS SC HS Lactulose (Chronulac), 20 GM PO TID Levetiractam (Levetiracetam), 500 MG PO AMHS Levothyroxine Sodium (Synthroid), 75 MCG PO DAILY Magnesium Oxide (Mag-Ox), 400 MG PO BID Pantoprazole (Protonix), 40 MG PO BID Pregabalin (Lyrica), 75 MG PO TID Propranolol (Inderal), 10 MG PO BID Pyridoxine Hcl (Vitamin B-6), 25 MG PO HS Rifaximin (Xifaxan), 550 MG PO AMHS Spironolactone (Aldactone), 1 TAB PO DAILY Scheduled PRN Hydromorphone Hcl (Dilaudid), 2 MG PO Q6H PRN for Pain Ondasetron Odt (Zofran Odt), 4 MG SL Q6H PRN for Nausea or Vomiting Triamcinolone Acet (Aristocort 0.1%), 1 APPL EXT BID PRN for dermatitis Allergies Coded Allergies: NSAIDs (Verified Allergy, Severe, DUE TO LIVER DISEAS, 04/02/16) Penicillins (Verified Allergy, Severe, JOINT SWELLING AND FEVER, 04/02/16) Levofloxacin (Verified Allergy, Mild, RASH, 04/02/16) pt developed erythema at site of IV injection with itching Vancomycin (Verified Allergy, Mild, HIVES, 04/02/16) HIVES Acetaminophen (Unverified Allergy, Unknown, unknown, 04/02/16) Tramadol (Verified Allergy, Unknown, NOT TO TAKE WITH KEPPRA DUE TO SEIZURE RISK, 04/02/16) Physical Exam Vital Signs Date Time Temp Pulse Resp B/P Pulse Ox O2 Delivery O2 Flow Rate FiO2 04/09/16 10:30 72 18 116/76 98 Room Air 04/09/16 08:30 65 18 126/72 98 Room Air 04/09/16 07:25 98 Room Air 04/09/16 06:32 77 17 118/75 97 Room Air 04/09/16 06:11 72 18 120/75 97 Room Air 04/09/16 05:32 71 18 123/73 100 Room Air Physical Exam GENERAL: Patient is chronically unwell appearing and in mild distress and has weakness with trying to sit up. HEENT: No acute trauma, normocephalic atraumatic, mucous membranes moist, no nasal congestion, no scleral icterus. NECK: No stridor, no adenopathy, no meningismus, trachea is midline. LUNGS: No dyspnea. Clear to auscultation and equal bilaterally. No wheeze, no rhonchi. HEART: Regular rate and rhythm. No murmurs, rubs, gallops appreciated. ABDOMEN: Distended abdomen with fluid wave, hypoactive bowel sounds, no masses appreciated, no peritonitis. BACK: No midline tenderness, no CVA tenderness EXTREMITIES: Normal motion all extremities, no cyanosis. 4+ edema in lower legs. NEUROLOGIC: Alert and oriented, no acute motor or sensory deficits, no focal weakness, cranial nerves grossly intact. SKIN: No rash, no jaundice, no diaphoresis. Medical Decision & Procedures ER Provider Diagnostic Interpretation: X ray results are stated below per my interpretation. Chest: 1 view: No infiltrate, no effusion, normal cardiac border. Laboratory Results 04/09/16 05:26 04/09/16 05:26 Test 04/09/16 05:24 04/09/16 05:26 Ammonia 38.0 umol/L (11-32) Red Blood Count 3.82 M/uL (4.7-6.1) Mean Corpuscular Volume 70.4 fL (80-100) Mean Corpuscular Hemoglobin 23.0 pg (25-34) Mean Corpuscular Hemoglobin Concent 32.7 g/dl (32-36) RDW Standard Deviation 52.1 fL (36.4-46.3) RDW Coefficient of Variation 20.2 % (11.5-14.5) Platelet Estimate DECREASED Prothrombin Time 13.7 SECONDS (9.0-12.0) Prothromb Time International Ratio 1.3 (0.9-1.1) Activated Partial Thromboplast Time 28.3 SECONDS (21.0-31.0) Partial Thromboplastin Ratio 1.1 Anion Gap 11.0 mmol/L (3-11) Est Creatinine Clear Calc Drug Dose 76.4 ml/min Estimated GFR () 82.9 Estimated GFR (Non- 71.6 BUN/Creatinine Ratio 10.1 (10-20) Calcium Level 8.0 mg/dl (8.5-10.1) Magnesium Level 2.0 mg/dl (1.8-2.4) Total Bilirubin 1.2 mg/dl (0.2-1) Direct Bilirubin 0.5 mg/dl (0-0.2) Aspartate Amino Transf (AST/SGOT) 46 U/L (15-37) Alanine Aminotransferase (ALT/SGPT) 26 U/L (12-78) Alkaline Phosphatase 117 U/L (45-117) Troponin I 0.016 ng/ml (0-0.045) Total Protein 5.6 gm/dl (6.4-8.2) Albumin 2.4 gm/dl (3.4-5.0) Laboratory results as reviewed by me. Medications Administered Medications (Trade) Dose Ordered Sig/Ryan Route Start Time Stop Time Status Last Admin Dose Admin Hydromorphone HCl (Dilaudid Inj) 1 mg NOW STAT IV 04/09/16 06:03 04/09/16 06:05 DC 04/09/16 06:09 1 MG Hydromorphone HCl (Dilaudid Tab) 2 mg Q6H PRN PO 04/09/16 06:45 04/23/16 06:44 04/09/16 17:24 2 MG Ondansetron HCl (Zofran Inj) 4 mg STK-MED ONCE .ROUTE 04/09/16 09:00 04/09/16 09:03 DC 04/09/16 09:00 4 MG ECG Indication: SOB/dyspnea Rate (beats per minute): 68 Rhythm: normal sinus Findings: no acute ischemic change, no ectopy ED Course 0515: The patient was evaluated in room B2. The patient was first evaluated by the medical student. A complete history and physical exam was performed. 0603: Dilaudid 1 mg IV 0645: Consulted [facility] for evaluation of the patient. Medical Decision Differential: Sepsis, Infectious (UTI/Pneumonia/Meningitis/etc), Metabolic/ Electrolyte Abnormality, Cardiac, Hepatic, Endocrine, Toxicologic, Neurologic, amongst other pathologies entertained. 61 yr old male arrives for generalized weakness. Notes in 36 hours from discharge rapidly worsening weakness and unable to get around at his home do to swelling of legs and abdomen. States unable to stand. He has already put on 5+ kg in last 36 hours. He is chronically unwell and it seems he is not caring for himself very well. He states he needs his abdomen drained and I suspect there is a large amount that could be drained. Patient states he can not go back home like this. Will ask medicine service to evaluate patient as they known him well from multiple recent stays and I can not just send him home if he can not even care for himself in current state. There is concern that there is some narcotic seeking behavior, especially given immediate requests for IV Dilaudid. Consults Time Called: 06 Consulting Physician: Omar Returned Call: [phone] Consulted Omar for evaluation of the patient. Impression Primary Impression: Generalized weakness Additional Impressions: Anasarca Chronic liver failure Ascites Scribe Attestation The scribe's documentation has been prepared under my direction and personally reviewed by me in its entirety. I confirm that the note above accurately reflects all work, treatment, procedures, and medical decision making performed by me. Departure Information Referrals Chacha Munoz D.O. (PCP) Problem Qualifiers Additional Impressions: Chronic liver failure Hepatic coma status: without hepatic coma Qualified Codes: K72.10 - Chronic hepatic failure without coma Ascites Ascites type: other type Qualified Codes: R18.8 - Other ascites
--- NOTE | 2016-04-09 06:31 | DIAGNOSTIC IMAGING REPORT ---
CHEST ONE VIEW PORTABLE CLINICAL HISTORY: shortness of breath dyspnea COMPARISON STUDY: 04/02/2016 FINDINGS: Chronic atelectatic change left base. Lungs otherwise appear clear. Diaphragms smooth. IMPRESSION: No acute process. Chronic change left base. Electronically signed by: Marcin Tariq M.D. 04/09/2016 6:29 AM Dictated Date/Time: 04/09/2016 6:29 AM
--- NOTE | 2016-04-09 07:04 | DIAGNOSTIC IMAGING REPORT ---
Ascites ASCITES-ABDOMEN LIMITED CLINICAL HISTORY: Abdominal swelling. 5kg weight gain 2 days. Weight gain TECHNIQUE: Ultrasound COMPARISON STUDY: 04/05/2016 FINDINGS: Mild ascites. No major change from the prior exam. IMPRESSION: Mild ascites with no major change from the prior study. Electronically signed by: Marcin Tariq M.D. 04/09/2016 7:03 AM Dictated Date/Time: 04/09/2016 7:01 AM
[2016-04-09 07:25] VITALS: O2SAT 98; Ht 182.9 cm; Wt 84.5 kg
[2016-04-09] MEDS: HYDROmorphone HCL 2 MG TAB PO PRN ×2 (08:57→17:24)
[2016-04-09] MEDS ORDERED: ONDANSETRON INJ 2 MG/ML 2 ML VIAL ONE (09:00)
[2016-04-09] MEDS ORDERED: TRIAMCINOLONE ACET 0.1% CR 15 GM TUBE EXT PRN (11:45)
[2016-04-09] MEDS: INSULIN ASPART 100 UNITS/ML 3 ML PEN SQ SCH ×2 (12:00→17:27)
[2016-04-09] MEDS ORDERED: IV FLUIDS COMPLETED PRN (12:45)
[2016-04-09 13:30] VITALS: BP 121/74; PULSE 60; TEMP 36.5; O2SAT 98
[2016-04-09] MEDS ORDERED: DEXTROSE 50% 50 ML SYR IV PRN (14:00)
[2016-04-09] MEDS ORDERED: GLUCOSE 10 TABS/TUBE PO PRN (14:00)
[2016-04-09] MEDS ORDERED: GLUCOSE 40% GEL 15 GM TUBE PO PRN (14:00)
[2016-04-09] MEDS ORDERED: GLUCAGON FOR INJ 1 MG VIAL SQ PRN (14:00)
[2016-04-09 15:37] VITALS: BP 110/72; PULSE 61; TEMP 36.5; O2SAT 99
[2016-04-09 16:45] VITALS: O2SAT 99
[2016-04-09] MEDS: PREGABALIN 75 MG CAP PO SCH ×2 (17:23→21:49)
[2016-04-09] MEDS: LACTULOSE SYRUP 20 GM/30 ML UDC PO SCH ×2 (17:24→21:50)
[2016-04-09] MEDS ORDERED: ONDANSETRON INJ 2 MG/ML 2 ML VIAL IV. SCH (18:00)
--- NOTE | 2016-04-09 18:54 | History and Physical ---
History & Physical Date & Time of Service: Apr 09, 2016 at 11:48 Chief Complaint: Shortness Of Breath/Dizziness/Weakness Primary Care Physician: Chacha Munoz D.O. History of Present Illness Source: patient, clinic records, hospital records 61 year old male with PMH of Liver cirrhosis, BETANCOURT, thrombocytopenia, chronic pain syndrome, generalized weakness presents to the Emergency Room with complaints of shortness of breath and generalized weakness. Pt has multiple admission for recurrent ascites and weakness. He was discharged 2 days ago. Pt said that he feels very weak. He said that he cannot stand on his feet because they are too weak. in the last admission, we discussed with him to send him to rehab. he refused rehab. he said that the last time he went to rehab, the rehab place sent him a bill to pay 40% for his rehab stayed. after a long talk, he agreed to go to rehab unless he does not have to pay 40% of the cost because he does not have money to pay for rehab. Pt had 5lbs weight gain since discharge on Sunday ( not sure if accurate because he was weight with the bed). Currently pt denies any chest pain, palpitation and SOB. His saturated well on RA. Last paracentesis was on 04/01 where they removed 10L. Case discussed with heel caser that tried to get placement to [facility]. [facility] will take him tomorrow after his paracentesis. 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 Surgical Problems: (1) H/O esophagogastroduodenoscopy Status: Resolved (2) H/O knee surgery Status: Resolved (3) S/P cervical spinal fusion Status: Resolved (4) S/P IVC filter Status: Resolved (5) S/P lumbar fusion Status: Resolved (6) S/P T&A (status post tonsillectomy and adenoidectomy) Status: Resolved Family History FH: CAD (coronary artery disease) FATHER FH: breast cancer MOTHER Social History Smoking Status: Never Smoker Alcohol Use: none Drug Use: none Marital Status: single Housing status: lives with roommate Occupational Status: retired Immunizations History of Influenza Vaccine: Yes Influenza Vaccine Date: Oct 21, 2014 History of Tetanus Vaccine?: Yes Tetanus Immunization Date: Mar 15, 1972 History of Pneumococcal: Yes Pneumococcal Date: Feb 05, 2009 History of Hepatitis B Vaccine: Yes Hepatitis Immunization Date: June 18, 2013 Multi-Drug Resistant Organisms History of MDRO: No Allergies Coded Allergies: NSAIDs (Verified Allergy, Severe, DUE TO LIVER DISEAS, 04/02/16) Penicillins (Verified Allergy, Severe, JOINT SWELLING AND FEVER, 04/02/16) Levofloxacin (Verified Allergy, Mild, RASH, 04/02/16) pt developed erythema at site of IV injection with itching Vancomycin (Verified Allergy, Mild, HIVES, 04/02/16) HIVES Acetaminophen (Unverified Allergy, Unknown, unknown, 04/02/16) Tramadol (Verified Allergy, Unknown, NOT TO TAKE WITH KEPPRA DUE TO SEIZURE RISK, 04/02/16) Home Medications Scheduled Escitalopram (Lexapro), 10 MG PO DAILY Furosemide (Lasix), 20 MG PO BID Insulin Aspart (Novolog Penfill), SQ TIDM Insulin Glargine (Lantus), 32 UNITS SC HS Lactulose (Chronulac), 20 GM PO TID Levetiractam (Levetiracetam), 500 MG PO AMHS Levothyroxine Sodium (Synthroid), 75 MCG PO DAILY Magnesium Oxide (Mag-Ox), 400 MG PO BID Pantoprazole (Protonix), 40 MG PO BID Pregabalin (Lyrica), 75 MG PO TID Propranolol (Inderal), 10 MG PO BID Pyridoxine Hcl (Vitamin B-6), 25 MG PO HS Rifaximin (Xifaxan), 550 MG PO AMHS Spironolactone (Aldactone), 1 TAB PO DAILY Scheduled PRN Hydromorphone Hcl (Dilaudid), 2 MG PO Q6H PRN for Pain Ondasetron Odt (Zofran Odt), 4 MG SL Q6H PRN for Nausea or Vomiting Triamcinolone Acet (Aristocort 0.1%), 1 APPL EXT BID PRN for dermatitis Physical Exam Vital Signs Date Time Temp Pulse Resp B/P Pulse Ox O2 Delivery O2 Flow Rate FiO2 04/09/16 10:30 72 18 116/76 98 Room Air 04/09/16 08:30 65 18 126/72 98 Room Air 04/09/16 06:32 77 17 118/75 97 Room Air 04/09/16 06:11 72 18 120/75 97 Room Air 04/09/16 05:32 71 18 123/73 100 Room Air General Appearance: WD/WN, no apparent distress Head: normocephalic, atraumatic Eyes: normal inspection, PERRL, EOMI ENT: normal ENT inspection, hearing grossly normal, TMs normal Neck: supple, no JVD Respiratory/Chest: chest non-tender, normal breath sounds, no respiratory distress, no accessory muscle use Cardiovascular: regular rate, rhythm, no JVD Abdomen/GI: normal bowel sounds, + distended Back: normal inspection, no CVA tenderness, normal range of motion Extremities/Musculoskelatal: normal inspection, no calf tenderness (+edema) 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, no motor/sensory deficits, alert, oriented x 3 Skin: warm/dry, no rash Diagnostics Laboratory Results Results Past 24 Hours Test 04/09/16 05:24 04/09/16 05:26 Range/Units Ammonia 38.0 11-32 umol/L White Blood Count 5.83 4.8-10.8 K/uL Red Blood Count 3.82 4.7-6.1 M/uL Hemoglobin 8.8 14.0-18.0 g/dL Hematocrit 26.9 42-52 % Mean Corpuscular Volume 70.4 80-100 fL Mean Corpuscular Hemoglobin 23.0 25-34 pg Mean Corpuscular Hemoglobin Concent 32.7 32-36 g/dl RDW Standard Deviation 52.1 36.4-46.3 fL RDW Coefficient of Variation 20.2 11.5-14.5 % Platelet Count 79 130-400 K/uL Platelet Estimate DECREASED Prothrombin Time 13.7 9.0-12.0 SECONDS Prothromb Time International Ratio 1.3 0.9-1.1 Activated Partial Thromboplast Time 28.3 21.0-31.0 SECONDS Partial Thromboplastin Ratio 1.1 Sodium Level 136 136-145 mmol/L Potassium Level 4.4 3.5-5.1 mmol/L Chloride Level 103 98-107 mmol/L Carbon Dioxide Level 22 21-32 mmol/L Anion Gap 11.0 3-11 mmol/L Blood Urea Nitrogen 11 7-18 mg/dl Creatinine 1.10 0.60-1.40 mg/dl Est Creatinine Clear Calc Drug Dose 76.4 ml/min Estimated GFR () 82.9 Estimated GFR (Non- 71.6 BUN/Creatinine Ratio 10.1 10-20 Random Glucose 283 70-99 mg/dl Calcium Level 8.0 8.5-10.1 mg/dl Magnesium Level 2.0 1.8-2.4 mg/dl Total Bilirubin 1.2 0.2-1 mg/dl Direct Bilirubin 0.5 0-0.2 mg/dl Aspartate Amino Transf (AST/SGOT) 46 15-37 U/L Alanine Aminotransferase (ALT/SGPT) 26 12-78 U/L Alkaline Phosphatase 117 45-117 U/L Troponin I 0.016 0-0.045 ng/ml Total Protein 5.6 6.4-8.2 gm/dl Albumin 2.4 3.4-5.0 gm/dl Diagnostic Radiology Ascites ASCITES-ABDOMEN LIMITED CLINICAL HISTORY: Abdominal swelling. 5kg weight gain 2 days. Weight gain TECHNIQUE: Ultrasound COMPARISON STUDY: 04/05/2016 FINDINGS: Mild ascites. No major change from the prior exam. IMPRESSION: Mild ascites with no major change from the prior study. CHEST ONE VIEW PORTABLE CLINICAL HISTORY: shortness of breath dyspnea COMPARISON STUDY: 04/02/2016 FINDINGS: Chronic atelectatic change left base. Lungs otherwise appear clear. Diaphragms smooth. IMPRESSION: No acute process. Chronic change left base. Impression Assessment and Plan RECCURENT ASCITES 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 Last parencentesis done on 04/01 where 10 L fluid removed U/S of the abdomen showed mild ascites does not appear decompensated at this point. Will get therapeutic paracentesis in am Will give pre and post albumin for the paracentesis Fluid restriction to 1.5 L Continue lasix, aldactone, rifaximin, lactulose Afebrile, no leukocytosis continue monitor GENERALIZED WEAKNESS/AMBULATORY DYSFUNCTION PT/OT eval fall precaution [facility] will transfer tomorrow after the paracentesis History BETANCOURT Recurrent ascites and needs frequent paracentesis. Contique Lasix, Aldactone, Rifaximin, lactulose stable CHRONIC PAIN SYNDROME Continue dilaudid prn follow with pain management Thrombocytopenia Secondary to liver disease. Platelet 79 No active bleeding Continue monitor CBC Stable. History of Chronic Anemia Hgb 8.8 continue monitor h/h DM TYPE 2 Last hba1c 11.6 on 04/03/16 uncontrolled posible to non compliant Continue Lantus 30 units SS for now CKD STAGE 3 Creatine stable Avoid nephrotoxic agents History of Seizure Disorder: Continue Keppra. Stable Constipation Secondary to narcotic continue laxative prn History of PE S/P IVC filter placement Not a candidate for chronic anticoagulation due to low platelet and risk of bleeding Code Status: FULL CODE DVT Prophylaxis: SCDs.due to low platelet Disposition [facility] Level of Care Med/Surg Resuscitation Status FULL RESUSCITATION VTE Prophylaxis VTE Risk Assessment Done? Y/N: Yes Risk Level: Moderate Given or contraindicated: SCD's Additional Copies To Chacha Munoz D.O.
[2016-04-09] MEDS ORDERED: NURSING VERBAL MED ORDER ONE (21:00)
[2016-04-09] MEDS: RIFAXIMIN TAB 550 MG TAB PO SCH (21:49)
[2016-04-09] MEDS: PANTOprazole SOD 40 MG TAB PO SCH (21:50)
[2016-04-09] MEDS: PYRIDOXINE HCL 50 MG TAB PO SCH (21:50)
[2016-04-09] MEDS: MAGNESIUM OXIDE 400 MG TAB PO SCH (21:52)
[2016-04-09] MEDS: PROPRANOLOL HCL 10 MG TAB PO SCH (21:52)
[2016-04-09] MEDS: LEVETIRACETAM 500 MG TAB PO SCH (21:53)
[2016-04-09] MEDS: FUROSEMIDE 20 MG TAB PO SCH (21:53)
[2016-04-09] MEDS: INSULIN GLARGINE SOLOSTAR 100 UNITS/ML 3 ML PEN SC SCH (21:58)
[2016-04-10] VITALS (10 sets, daily range): BP systolic 92–107; BP diastolic 59–80; PULSE 58–65; TEMP 36.6–36.7; O2SAT 94–98
[2016-04-10] MEDS: HYDROmorphone HCL 2 MG TAB PO PRN ×2 (01:31→15:56)
[2016-04-10] MEDS: ONDANSETRON INJ 2 MG/ML 2 ML VIAL IV. PRN ×2 (01:31→09:02)
[2016-04-10 06:41] LABS: MEAN CORPUSCULAR HGB CONC 32.3 g/dl (32-36)
[2016-04-10 06:47] LABS: INR 1.3 (0.9-1.1); PROTHROMBIN TIME (PATIENT) 14.5 SECONDS (9.0-12.0)
[2016-04-10 06:50] LABS: RED BLOOD COUNT 3.66 M/uL (4.7-6.1); WHITE BLOOD COUNT 3.88 K/uL (4.8-10.8)
[2016-04-10] MEDS ORDERED: ALBUMIN HUMAN 5% 12.5 GM/250 ML VIAL IV SCH ×2 (07:00→13:00)
[2016-04-10 07:06] LABS: BUN/CREATININE RATIO 9.9 (10-20); CALCIUM 7.5 mg/dl (8.5-10.1); POTASSIUM 4.4 mmol/L (3.5-5.1)
[2016-04-10 07:09] LABS: ALB/GLOB RATIO 0.8 (0.9-2)
[2016-04-10 07:29] LABS: PLATELET COUNT 61 K/uL (130-400)
[2016-04-10] MEDS: LEVOTHYROXINE 75 MCG TAB PO SCH (07:30)
[2016-04-10] MEDS: INSULIN ASPART 100 UNITS/ML 3 ML PEN SQ SCH ×3 (08:00→17:36)
--- NOTE | 2016-04-10 10:20 | DIAGNOSTIC IMAGING REPORT ---
ULTRASOUND-GUIDED THERAPEUTIC PARACENTESIS: HISTORY: Ascites. Procedure: The procedure and its risks, benefits and alternatives were discussed with the patient and written informed consent was obtained. Preliminary ultrasound of the abdomen was performed to determine a safe needle entry site. The left lower quadrant was prepped and draped in the usual sterile fashion. 1% Lidocaine was used for local anesthesia. A paracentesis needle-sheath was inserted into the peritoneal space using ultrasound guidance. The needle was removed and the sheath was connected to tubing and a vacuum suction device. A total of 6 liters of yellow ascites was aspirated. The sheath was removed and a sterile dressing applied. The patient tolerated the procedure well and there were no immediate complications. IMPRESSION: Ultrasound-guided therapeutic paracentesis with aspiration of 6 liters of ascites. Electronically signed by: Tj Weston M.D. 04/10/2016 10:18 AM Dictated Date/Time: 04/10/2016 10:18 AM
[2016-04-10] MEDS: RIFAXIMIN TAB 550 MG TAB PO SCH ×2 (10:21→19:43)
[2016-04-10] MEDS: SPIRONOLACTONE 100 MG TAB PO SCH (10:21)
[2016-04-10] MEDS: PROPRANOLOL HCL 10 MG TAB PO SCH ×2 (10:23→19:43)
[2016-04-10] MEDS: PREGABALIN 75 MG CAP PO SCH ×3 (10:23→19:46)
[2016-04-10] MEDS: MAGNESIUM OXIDE 400 MG TAB PO SCH ×2 (10:23→19:44)
[2016-04-10] MEDS: LACTULOSE SYRUP 20 GM/30 ML UDC PO SCH ×3 (10:23→19:42)
[2016-04-10] MEDS: FUROSEMIDE 20 MG TAB PO SCH ×2 (10:24→16:35)
[2016-04-10] MEDS: LEVETIRACETAM 500 MG TAB PO SCH ×2 (10:24→19:42)
[2016-04-10] MEDS: ESCITALOPRAM OXALATE 10 MG TAB PO SCH (12:05)
[2016-04-10] MEDS: PANTOprazole SOD 40 MG TAB PO SCH ×2 (12:05→19:43)
--- NOTE | 2016-04-10 13:07 | Progress Note ---
Medicine Progress Note Date & Time of Visit: Apr 10, 2016 at 12:52. Subjective Pt was seen and examined Sitting in bed comfortable with family at bedside Pt had paracentesis done this morning where they removed about 6L fluid pt said that he feels fine denies any chest pain, palpitation, dizziness and sob Objective Last 8 Hrs Date Time Temp Pulse Resp B/P Pulse Ox O2 Delivery O2 Flow Rate FiO2 04/10/16 10:37 98 Room Air 04/10/16 09:07 36.7 64 18 107/64 95 Room Air 04/10/16 08:03 36.7 59 22 105/64 98 Room Air 04/10/16 06:48 36.6 62 18 98/62 95 Room Air Physical Exam: General- No acute distress Head- atraumatic Eyes- PERRL, EOMI ENT- oropharynx clear Neck- supple, no JVD Lungs- clear to auscultation and percussion Heart- regular rhythm; no murmur Abdomen- normal bowel sounds, nontender Extremities- no calf tenderness Neuro- alert, oriented x 3; PERRL, EOMI Skin- warm & dry Laboratory Results: Last 24 Hours Test 04/09/16 15:38 04/09/16 21:00 04/10/16 06:16 04/10/16 07:39 Bedside Glucose 232 mg/dl 252 mg/dl 190 mg/dl White Blood Count 3.88 K/uL Red Blood Count 3.66 M/uL Hemoglobin 8.4 g/dL Hematocrit 26.0 % Mean Corpuscular Volume 71.0 fL Mean Corpuscular Hemoglobin 23.0 pg Mean Corpuscular Hemoglobin Concent 32.3 g/dl RDW Standard Deviation 53.0 fL RDW Coefficient of Variation 20.2 % Platelet Count 61 K/uL Prothrombin Time 14.5 SECONDS Prothromb Time International Ratio 1.3 Sodium Level 138 mmol/L Potassium Level 4.4 mmol/L Chloride Level 105 mmol/L Carbon Dioxide Level 22 mmol/L Anion Gap 11.0 mmol/L Blood Urea Nitrogen 10 mg/dl Creatinine 1.00 mg/dl Est Creatinine Clear Calc Drug Dose 84.1 ml/min Estimated GFR () 93.1 Estimated GFR (Non- 80.3 BUN/Creatinine Ratio 9.9 Random Glucose 181 mg/dl Calcium Level 7.5 mg/dl Total Bilirubin 1.2 mg/dl Aspartate Amino Transf (AST/SGOT) 26 U/L Alanine Aminotransferase (ALT/SGPT) 23 U/L Alkaline Phosphatase 99 U/L Total Protein 4.8 gm/dl Albumin 2.1 gm/dl Globulin 2.7 gm/dl Albumin/Globulin Ratio 0.8 Test 04/10/16 10:28 04/10/16 11:02 Bedside Glucose 163 mg/dl 159 mg/dl Assessment & Plan RECCURENT ASCITES 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 Last parencentesis done on 04/01 where 10 L fluid removed U/S of the abdomen showed mild ascites does not appear decompensated at this point. Paracentesis done today (04/10) by IR where they removed about 6L of fluid Received pre and post albumin for the paracentesis Fluid restriction to 1.5 L Continue lasix, aldactone, rifaximin, lactulose Afebrile, no leukocytosis continue monitor GENERALIZED WEAKNESS/AMBULATORY DYSFUNCTION PT/OT eval fall precaution agreed to go to [facility] for rehab Will transfer to [facility] today for rehab History BETANCOURT Recurrent ascites and needs frequent paracentesis. Contique Lasix, Aldactone, Rifaximin, lactulose stable CHRONIC PAIN SYNDROME Continue dilaudid prn follow with pain management Thrombocytopenia Secondary to liver disease. Platelet 61 No active bleeding Continue monitor CBC History of Chronic Anemia Hgb 8.4 continue monitor h/h RASH Will add benadryl prn DM TYPE 2 Last hba1c 11.6 on 04/03/16 uncontrolled posible to non compliant Continue Lantus 30 units SS for now CKD STAGE 3 Creatine stable Avoid nephrotoxic agents History of Seizure Disorder: Continue Keppra. Stable Constipation Secondary to narcotic continue laxative prn History of PE S/P IVC filter placement Not a candidate for chronic anticoagulation due to low platelet and risk of bleeding Code Status: FULL CODE DVT Prophylaxis: SCDs.due to low platelet Disposition Transfer to rehab tomorrow to [facility] for rehab Level of Care Med/Surg Resuscitation Status FULL RESUSCITATION Current Inpatient Medications: Current Inpatient Medications Medications (Trade) Dose Ordered Sig/Ryan Route Start Time Stop Time Status Last Admin Dose Admin Hydromorphone HCl (Dilaudid Tab) 2 mg Q6H PRN PO 04/09/16 06:45 04/23/16 06:44 04/10/16 01:31 2 MG Escitalopram Oxalate (Lexapro Tab) 10 mg DAILY PO 04/10/16 09:00 05/10/16 08:59 04/10/16 12:05 10 MG Furosemide (Lasix Tab) 20 mg BID17 PO 04/09/16 21:00 05/09/16 20:59 04/10/16 10:24 20 MG Insulin Aspart (novoLOG ASPART) SLIDING SCALE TIDM SQ 04/09/16 12:00 05/09/16 11:59 04/10/16 12:40 7 UNITS Insulin Glargine (Lantus Solostar Pen) 30 unit HS SC 04/09/16 21:00 05/09/16 20:59 04/09/16 21:58 30 UNIT Lactulose (Chronulac Syrup) 20 gm TID PO 04/09/16 14:00 05/09/16 13:59 04/10/16 10:23 20 GM Levetiracetam (Keppra Tab) 500 mg AMHS PO 04/09/16 21:00 05/09/16 20:59 04/10/16 10:24 500 MG Levothyroxine Sodium (Synthroid Tab) 75 mcg DAILYBB PO 04/10/16 06:30 05/10/16 06:29 04/10/16 07:30 75 MCG Magnesium Oxide (Mag-Ox Tab) 400 mg BID PO 04/09/16 21:00 05/09/16 20:59 04/10/16 10:23 400 MG Ondansetron HCl (Zofran Odt) 4 mg Q6H PRN SL 04/09/16 11:45 05/09/16 11:44 Pantoprazole Sodium (Protonix Tab) 40 mg BID PO 04/09/16 21:00 05/09/16 20:59 04/10/16 12:05 40 MG Pregabalin (Lyrica Cap) 75 mg TID PO 04/09/16 14:00 05/09/16 13:59 04/10/16 10:23 75 MG Propranolol HCl (Inderal Tab) 10 mg BID PO 04/09/16 21:00 05/09/16 20:59 04/10/16 10:23 10 MG Rifaximin (Xifaxan Tab) 550 mg AMHS PO 04/09/16 21:00 05/09/16 20:59 04/10/16 10:21 550 MG Spironolactone (Aldactone Tab) 100 mg DAILY PO 04/10/16 09:00 05/10/16 08:59 04/10/16 10:21 100 MG Triamcinolone Acetonide (Kenalog 0.1% Cream) 1 appln BID PRN EXT 04/09/16 11:45 05/09/16 11:44 Pyridoxine HCl (Vitamin B-6 Tab) 25 mg HS PO 04/09/16 21:00 05/09/16 20:59 04/09/16 21:50 25 MG Miscellaneous (Iv Fluids Completed) 1 ea PRN PRN N/A 04/09/16 12:45 04/09/17 12:44 Glucose (Glucose 40% Gel) 15-30 GRAMS 15 GRAMS... UD PRN PO 04/09/16 14:00 05/09/16 13:59 Glucose (Glucose Chew Tab) 4-8 Tablets 4 Tabl... UD PRN PO 04/09/16 14:00 05/09/16 13:59 Dextrose (Dextrose 50% 50ML Syringe) 25-50ML OF 50% DW IV FOR... UD PRN IV 04/09/16 14:00 05/09/16 13:59 Glucagon (Glucagon Inj) 1 mg UD PRN SQ 04/09/16 14:00 05/09/16 13:59 Ondansetron HCl (Zofran Inj) 4 mg Q6H PRN IV. 04/09/16 21:00 05/09/16 20:59 04/10/16 09:02 4 MG Diphenhydramine HCl (Benadryl Cap) 25 mg BID PRN PO 04/10/16 10:00 05/10/16 09:59 04/10/16 10:21 25 MG
[2016-04-10] MEDS ORDERED: BND25X PO (13:11)
--- NOTE | 2016-04-10 13:24 | Discharge Instructions ---
Discharge Instructions Date of Service Apr 10, 2016. Admission Reason for Admission: Ascites,Generalized Weakness Discharge Discharge Diagnosis / Problem: Reccurent Ascites, Cirrhosis, BETANCOURT, Generalized weakness, DM II Discharge Goals Goal(s): Decrease discomfort, Improve function, Improve disease control Activity Recommendations Activity Limitations: resume your previous activity (as tolerated) . Instructions / Follow-Up Instructions / Follow-Up Discharge to [facility] for rehab Please schedule follow up appointment with your primary care provider once discharge from rehab follow up with pain management once discharge from rehab Continue PT/OT fall precaution fluid restriction to 1.5 L daily Current Hospital Diet Patient's current hospital diet: Diabetes Type 2 Diet, Regular Diet Discharge Diet Recommended Diet: Diabetes Type 2 Diet Procedures Procedures Performed: Ultrasound-guided therapeutic paracentesis Pending Studies Studies pending at discharge: no Laboratory Results Hemoglobin A1c Test 04/03/16 05:54 Range/Units Estimated Average Glucose 286 mg/dl Hemoglobin A1c 11.6 H 4.5-5.6 % Medical Emergencies . Who to Call and When: Medical Emergencies: If at any time you feel your situation is an emergency, please call 911 immediately. . Non-Emergent Contact Non-Emergency issues call your: Primary Care Provider Call Non-Emergent contact if: you have any medication questions . . "Provider Documentation" section prepared by Shiva French. VTE Core Measure Inpt VTE Proph given/why not?: SCD's [place] Drug Monitoring Program Search Results: no issues identified
[2016-04-10] MEDS: ALBUMIN HUMAN 25% 12.5 GM/50 ML VIAL IV SCH ×2 (13:32→15:34)
[2016-04-10] MEDS: PYRIDOXINE HCL 50 MG TAB PO SCH (19:43)
[2016-04-10] MEDS: INSULIN GLARGINE SOLOSTAR 100 UNITS/ML 3 ML PEN SC SCH (19:47)
[2016-04-11 00:04] VITALS: BP 100/60; PULSE 65; TEMP 36.9; O2SAT 95
[2016-04-11] MEDS: HYDROmorphone HCL 2 MG TAB PO PRN (03:08)
[2016-04-11] MEDS: ONDANSETRON 4MG OD TAB SL PRN ×2 (03:09→11:58)
[2016-04-11] MEDS: LEVOTHYROXINE 75 MCG TAB PO SCH (05:46)
[2016-04-11 07:29] VITALS: BP 93/51; PULSE 58; TEMP 36.9; O2SAT 96
[2016-04-11] MEDS: LACTULOSE SYRUP 20 GM/30 ML UDC PO SCH ×2 (08:13→13:01)
[2016-04-11] MEDS: ONDANSETRON INJ 2 MG/ML 2 ML VIAL IV. PRN (08:13)
[2016-04-11] MEDS: PREGABALIN 75 MG CAP PO SCH ×2 (08:14→13:01)
[2016-04-11] MEDS: FUROSEMIDE 20 MG TAB PO SCH (08:15)
[2016-04-11] MEDS: PROPRANOLOL HCL 10 MG TAB PO SCH (08:15)
[2016-04-11] MEDS: LEVETIRACETAM 500 MG TAB PO SCH (08:16)
[2016-04-11] MEDS: ESCITALOPRAM OXALATE 10 MG TAB PO SCH (08:16)
[2016-04-11] MEDS: RIFAXIMIN TAB 550 MG TAB PO SCH (08:16)
[2016-04-11] MEDS: MAGNESIUM OXIDE 400 MG TAB PO SCH (08:16)
[2016-04-11] MEDS: PANTOprazole SOD 40 MG TAB PO SCH (08:17)
[2016-04-11] MEDS: SPIRONOLACTONE 100 MG TAB PO SCH (08:18)
[2016-04-11] MEDS: INSULIN ASPART 100 UNITS/ML 3 ML PEN SQ SCH ×2 (08:24→12:09)
--- NOTE | 2016-04-14 11:39 | Discharge Summary ---
Discharge Summary Date of Service Apr 14, 2016. Discharge Summary Admission Date: Apr 09, 2016 at 11:34 Discharge Date: Apr 10, 2016 Discharge Disposition: Rehab Principal Diagnosis: Generalized Weakness/Ascites Secondary Diagnoses/Problems: Recurrent Ascites Cirrhosis BETANCOURT Generalized weakness DM II Procedures: U/S guided paracentesis Ascites ASCITES-ABDOMEN LIMITED CLINICAL HISTORY: Abdominal swelling. 5kg weight gain 2 days. Weight gain TECHNIQUE: Ultrasound COMPARISON STUDY: 04/05/2016 FINDINGS: Mild ascites. No major change from the prior exam. IMPRESSION: Mild ascites with no major change from the prior study. Electronically signed by: Marcin Tariq M.D. 04/09/2016 7:03 AM Dictated Date/Time: 04/09/2016 7:01 AM Consultations: IR PT/OT Medication Reconciliation New Medications: Diphenhydramine HCl (Diphenhydramine HCl) 25 Mg Cap 25 MG PO BID PRN for itching/rash for 7 Days, #14 CAP Continued Medications: Escitalopram (Lexapro) 10 Mg Tab 10 MG PO DAILY, TAB Furosemide (Lasix) 20 Mg Tab 20 MG PO BID, TAB Hydromorphone Hcl (Dilaudid) 2 Mg Tab 2 MG PO Q6H PRN for Pain for 3 Days, #10 TAB Insulin Aspart (Novolog Penfill) 100 Unit/Ml Inj SQ TIDM via SSI Insulin Glargine (Lantus) 100 Unit/Ml Inj 32 UNITS SC HS, VIAL Lactulose (Chronulac) 10 Gm/15 Ml Syrp 20 GM PO TID Levetiractam (Levetiracetam) 500 Mg Tab 500 MG PO AMHS Levothyroxine Sodium (Synthroid) 75 Mcg Tab 75 MCG PO DAILY, TAB Magnesium Oxide (Mag-Ox) 400 Mg Tab 400 MG PO BID Ondasetron Odt (Zofran Odt) 4 Mg Tab 4 MG SL Q6H PRN for Nausea or Vomiting, TAB Pantoprazole (Protonix) 40 Mg Tab 40 MG PO BID, TAB Pregabalin (Lyrica) 75 Mg Cap 75 MG PO TID, CAP Propranolol (Inderal) 10 Mg Tab 10 MG PO BID, TAB Pyridoxine Hcl (Vitamin B-6) 25 Mg Tab 25 MG PO HS Rifaximin (Xifaxan) 550 Mg Tab 550 MG PO AMHS ONE AT BREAKFAST AND ONE AT SUPPER. Spironolactone (Aldactone) 100 Mg Tab 1 TAB PO DAILY for 30 Days, #30 TAB 11 Refills Triamcinolone Acet (Aristocort 0.1%) 90 Appln/30 Gm Cr 1 APPL EXT BID PRN for dermatitis Admission Information HPI (per Admitting provider): 61 year old male with PMH of Liver cirrhosis, BETANCOURT, thrombocytopenia, chronic pain syndrome, generalized weakness presents to the Emergency Room with complaints of shortness of breath and generalized weakness. Pt has multiple admission for recurrent ascites and weakness. He was discharged 2 days ago. Pt said that he feels very weak. He said that he cannot stand on his feet because they are too weak. in the last admission, we discussed with him to send him to rehab. he refused rehab. he said that the last time he went to rehab, the rehab place sent him a bill to pay 40% for his rehab stayed. after a long talk, he agreed to go to rehab unless he does not have to pay 40% of the cost because he does not have money to pay for rehab. Pt had 5lbs weight gain since discharge on Sunday ( not sure if accurate because he was weight with the bed). Currently pt denies any chest pain, palpitation and SOB. His saturated well on RA. Last paracentesis was on 04/01 where they removed 10L. Case discussed with case management assistant that tried to get placement to [facility]. [facility] will take him tomorrow after his paracentesis. 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 Paracentesis done today (04/10) by IR where they removed about 6L of fluid Received pre and post albumin for the paracentesis Fluid restriction to 1.5 L Continue lasix, aldactone, rifaximin, lactulose Afebrile, no leukocytosis continue monitor GENERALIZED WEAKNESS/AMBULATORY DYSFUNCTION PT/OT eval fall precaution agreed to go to [facility] for rehab Will transfer to [facility] today for rehab History BETANCOURT Recurrent ascites and needs frequent paracentesis. Contique Lasix, Aldactone, Rifaximin, lactulose stable CHRONIC PAIN SYNDROME Continue dilaudid prn follow with pain management Thrombocytopenia Secondary to liver disease. Platelet 61 No active bleeding Continue monitor CBC History of Chronic Anemia Hgb 8.4 continue monitor h/h RASH Will add benadryl prn DM TYPE 2 Last hba1c 11.6 on 04/03/16 uncontrolled posible to non compliant Continue Lantus 30 units SS for now CKD STAGE 3 Creatine stable Avoid nephrotoxic agents History of Seizure Disorder: Continue Keppra. Stable Constipation Secondary to narcotic continue laxative prn History of PE S/P IVC filter placement Not a candidate for chronic anticoagulation due to low platelet and risk of bleeding Code Status: FULL CODE DVT Prophylaxis: SCDs.due to low platelet Disposition Transfer to rehab tomorrow to [facility] for rehab Level of Care Med/Surg Resuscitation Status FULL RESUSCITATION Total time spent on discharge = 35 minutes This includes examination of the patient, discharge planning, medication reconciliation, and communication with other providers. Discharge Instructions Discharge Instructions Date of Service Apr 10, 2016. Admission Reason for Admission: Ascites,Generalized Weakness Discharge Discharge Diagnosis / Problem: Reccurent Ascites, Cirrhosis, BETANCOURT, Generalized weakness, DM II Discharge Goals Goal(s): Decrease discomfort, Improve function, Improve disease control Activity Recommendations Activity Limitations: resume your previous activity (as tolerated) . Instructions / Follow-Up Instructions / Follow-Up Discharge to [facility] for rehab Please schedule follow up appointment with your primary care provider once discharge from rehab follow up with pain management once discharge from rehab Continue PT/OT fall precaution fluid restriction to 1.5 L daily Current Hospital Diet Patient's current hospital diet: Diabetes Type 2 Diet, Regular Diet Discharge Diet Recommended Diet: Diabetes Type 2 Diet Procedures Procedures Performed: Ultrasound-guided therapeutic paracentesis Pending Studies Studies pending at discharge: no Laboratory Results Hemoglobin A1c Test 04/03/16 05:54 Range/Units Estimated Average Glucose 286 mg/dl Hemoglobin A1c 11.6 H 4.5-5.6 % Medical Emergencies . Who to Call and When: Medical Emergencies: If at any time you feel your situation is an emergency, please call 911 immediately. . Non-Emergent Contact Non-Emergency issues call your: Primary Care Provider Call Non-Emergent contact if: you have any medication questions . . "Provider Documentation" section prepared by Shiva French. VTE Core Measure Inpt VTE Proph given/why not?: SCD's [place] Drug Monitoring Program Search Results: no issues identified Additional Copies To Jian Wynne Amanda M., D.O.
[2016-05-23] MEDS ORDERED: HYDR4TAB78 PO (09:03)
[2016-07-01] MEDS ORDERED: MAGN400T5 PO (01:36)
[2016-07-01] MEDS ORDERED: DIPH50TA10 PO (02:00)
[2016-07-01] MEDS ORDERED: TRMCR130WC EXT (03:58)
[2016-07-01] MEDS ORDERED: LACT10SO17 PO (04:04)
[2016-07-01] MEDS ORDERED: PYRI25TA PO (04:52)
[2016-07-01] MEDS ORDERED: PROP10TA7 PO (04:52)
[2016-07-01] MEDS ORDERED: FURO-85 PO (05:55)
[2016-07-01] MEDS ORDERED: LEVO75TA PO (12:02)
[2016-07-01] MEDS ORDERED: ONDA4TAB10 SL (12:02)
[2016-07-01] MEDS ORDERED: RIFA550T2 PO (13:45)
[2016-07-01] MEDS ORDERED: FERR1TAB13 PO (14:58)
[2016-07-01] MEDS ORDERED: LEVE500T PO (16:08)
[2016-07-01] MEDS ORDERED: INSDGI SC (16:08)
[2016-08-22] MEDS ORDERED: INSDGI SC (09:03)
[2016-08-22] MEDS ORDERED: MRLP17 PO (09:03)
[2016-08-29] MEDS ORDERED: INSDGI SC (12:27)
[2016-08-29] MEDS ORDERED: POLY335019 PO (12:27)
[2016-10-28] MEDS ORDERED: XFX550 PO (14:18)
[2016-11-06] MEDS ORDERED: CLIN300C2 PO (14:29)
[2016-11-06] MEDS ORDERED: LCTX PO (14:29)
== END 2016-04-11 13:37 ==
LOC: CANRESERV → ENRESERVTM → ENRESERVDT → EDBD 04:52 → C.EDB 04:53 → C.MS2W 11:34
PROVIDERS: ADMIT Internal Medicine; ATTEND Emergency Medicine
DX: R18.8 Other ascites (principal); R53.1 Weakness; K74.60 Unspecified cirrhosis of liver; K75.81 Nonalcoholic steatohepatitis (NASH); E11.9 Type 2 diabetes mellitus without complications; R26.9 Unspecified abnormalities of gait and mobility; G89.4 Chronic pain syndrome; D69.6 Thrombocytopenia, unspecified; R21 Rash and other nonspecific skin eruption; N18.3 Chronic kidney disease, stage 3 (moderate); G40.909 Epilepsy, unspecified, not intractable, without status epilepticus; K59.03 Drug induced constipation; T40.605A Adverse effect of unspecified narcotics, initial encounter; F41.9 Anxiety disorder, unspecified; F32.9 Major depressive disorder, single episode, unspecified; K72.90 Hepatic failure, unspecified without coma; I85.00 Esophageal varices without bleeding; E78.5 Hyperlipidemia, unspecified; Z98.1 Arthrodesis status; Z82.49 Family history of ischemic heart disease and other diseases of the circulatory system

== ENCOUNTER 2016-04-21 19:31 | Emergency (ER) | payer OTHER ==
[~2016-04-21] VITALS: Ht 182.9 cm; Wt 79.0 kg
[~2016-04-21 19:31] MED LIST changes: +BND25X PO; -DLD2 PO; +HYDR2TAB48 PO; -LSX20 PO
[2016-04-21 19:36] VITALS: TEMP 36.7; Ht 182.9 cm; Wt 79.0 kg
[2016-04-21] MEDS ORDERED: SODIUM CHLORIDE 0.9% 1000ML 1,000 ML IV STA (22:25)
[2016-04-21] MEDS ORDERED: ONDANSETRON INJ 2 MG/ML 2 ML VIAL IV STA (22:25)
[2016-04-21] MEDS ORDERED: HYDROmorphone INJ 2 MG/ML SYR/VIAL IV PRN (22:30)
[2016-04-21 22:48] LABS: MEAN CORPUSCULAR HGB CONC 32.8 g/dl (32-36)
--- NOTE | 2016-04-21 22:52 | DIAGNOSTIC IMAGING REPORT ---
CHEST ONE VIEW PORTABLE CLINICAL HISTORY: ABDOMINAL PAIN/GI pain COMPARISON STUDY: 04/09/2016 FINDINGS: Chronic fibrotic and ectatic change left base. Lungs otherwise appear clear. Diaphragms smooth. IMPRESSION: Chronic change. No acute process. Electronically signed by: Marcin Tariq M.D. 04/21/2016 10:50 PM Dictated Date/Time: 04/21/2016 10:47 PM
[2016-04-21 22:53] LABS: MANUAL MICROSCOPIC REQUIRED? NO; REVIEW REQ? NO; URINE APPEARANCE CLOUDY (CLEAR); URINE BILIRUBIN NEG (NEG); URINE COLOR DK YELLOW; URINE EPITHELIAL CELL AUTO 0-5 /lpf (0-5); URINE NITRITE NEG (NEG); URINE SPECIFIC GRAVITY 1.027 (1.000-1.030); UROBILINOGEN NEG (NEG); ZZUR CULT IF INDIC CLEAN CATCH NO
[2016-04-21 22:56] LABS: HEMATOCRIT 25.6 % (42-52); MEAN CELL VOLUME 70.5 fL (80-100); MEAN CORPUSCULAR HEMOGLOBIN 23.1 pg (25-34); RED BLOOD COUNT 3.63 M/uL (4.7-6.1); WHITE BLOOD COUNT 5.45 K/uL (4.8-10.8)
[2016-04-21 23:01] LABS: INR 1.3 (0.9-1.1); PARTIAL THROMBOPLASTIN RATIO 1.2; PROTHROMBIN TIME (PATIENT) 14.6 SECONDS (9.0-12.0)
[2016-04-21 23:11] LABS: BUN/CREATININE RATIO 12.3 (10-20); CREATININE 1.1 mg/dl (0.60-1.40); POTASSIUM 3.6 mmol/L (3.5-5.1)
[2016-04-21 23:13] LABS: ALB/GLOB RATIO 0.9 (0.9-2)
[2016-04-21 23:14] LABS: ANISOCYTOSIS PRESENT; BASO % 0.4 %; BASO ABS # 0.02 K/uL (0-0.2); COMPLETE YES; LYMPH % 16.7 %; LYMPH ABS # 0.91 K/uL (1.2-3.4); NEUT % 69.9 %; PLATELET COUNT 67 K/uL (130-400); PLT ESTIMATE DECREASED
--- NOTE | 2016-04-22 00:11 | EMERGENCY ROOM VISIT NOTE ---
History Report prepared by Alla: Nikhil Aldana Under the Supervision of: Dr. Paul Acosta D.O. First contact with patient: 22:06 Chief Complaint: ABDOMINAL PAIN Stated Complaint: ABD PAIN Nursing Triage Summary: Pt brought in by EMS. Pt complains of abdominal distention, nausea and vomiting since this am. Pt also complains of weakness. Pt was discharged Sunday from here with frequent falls. Pt went to [facility] from here and was discharged yesterday. Hx liver failure, diabetes History of Present Illness The patient is a 61 year old male who presents to the Emergency Room via ambulance with complaints of constant abdominal pain beginning a few days prior to arrival. He currently rates his discomfort as an 8/10 in severity. The patient associates abdominal distension, weakness, chills, nausea, vomiting, and dark stool with today's symptoms. He states he has vomited twice today, and his two bowel movements had dark stool. The patient notes he was discharged to [facility] from the ED four days ago for frequent falls. He notes a history of liver failure and diabetes. 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 Review of Systems See HPI for pertinent positives & negatives. A total of 10 systems reviewed and were otherwise negative. 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 Surgical Problems: (1) H/O esophagogastroduodenoscopy (2) H/O knee surgery (3) S/P cervical spinal fusion (4) S/P IVC filter (5) S/P lumbar fusion (6) S/P T&A (status post tonsillectomy and adenoidectomy) Family History FH: CAD (coronary artery disease) FATHER FH: breast cancer MOTHER Social History Smoking Status: Never Smoker Alcohol Use: none Drug Use: none Marital Status: single Housing Status: lives alone Occupation Status: retired Current/Historical Medications Scheduled Escitalopram (Lexapro), 10 MG PO DAILY Furosemide (Lasix), 20 MG PO BID Insulin Aspart (Novolog Penfill), SQ TIDM Insulin Glargine (Lantus), 32 UNITS SC HS Lactulose (Chronulac), 20 GM PO TID Levetiractam (Levetiracetam), 500 MG PO AMHS Levothyroxine Sodium (Synthroid), 75 MCG PO DAILY Magnesium Oxide (Mag-Ox), 400 MG PO BID Pantoprazole (Protonix), 40 MG PO BID Pregabalin (Lyrica), 75 MG PO TID Propranolol (Inderal), 10 MG PO BID Pyridoxine Hcl (Vitamin B-6), 25 MG PO HS Rifaximin (Xifaxan), 550 MG PO AMHS Spironolactone (Aldactone), 1 TAB PO DAILY Scheduled PRN Diphenhydramine HCl (Diphenhydramine HCl), 25 MG PO BID PRN for itching/rash Hydromorphone Hcl (Dilaudid), 2 MG PO Q6H PRN for Pain Ondasetron Odt (Zofran Odt), 4 MG SL Q6H PRN for Nausea or Vomiting Triamcinolone Acet (Aristocort 0.1%), 1 APPL EXT BID PRN for dermatitis Allergies Coded Allergies: NSAIDs (Verified Allergy, Severe, DUE TO LIVER DISEAS, 04/21/16) Penicillins (Verified Allergy, Severe, JOINT SWELLING AND FEVER, 04/21/16) Levofloxacin (Verified Allergy, Mild, RASH, 04/21/16) pt developed erythema at site of IV injection with itching Vancomycin (Verified Allergy, Mild, HIVES, 04/21/16) HIVES Acetaminophen (Unverified Allergy, Unknown, unknown, 04/21/16) Tramadol (Verified Allergy, Unknown, NOT TO TAKE WITH KEPPRA DUE TO SEIZURE RISK, 04/21/16) Physical Exam Vital Signs Date Time Temp Pulse Resp B/P Pulse Ox O2 Delivery O2 Flow Rate FiO2 04/21/16 23:54 71 16 129/81 97 Room Air 04/21/16 23:44 76 3/17/17 21:53 117/56 04/21/16 21:31 88 27 93 04/21/16 21:01 72 17 04/21/16 20:31 82 16 04/21/16 20:01 86 18 04/21/16 19:46 76 04/21/16 19:36 36.7 86 16 114/69 99 Room Air Physical Exam CONSTITUTIONAL/VITAL SIGNS: Reviewed / noted above. GENERAL: Non-toxic in appearance. INTEGUMENTARY: Warm, dry, and [place]. HEAD: Normocephalic. EYES: without scleral icterus or trauma. ENT/OROPHARYNX: clear and moist. LYMPHADENOPATHY/NECK: Is supple without lymphadenopathy or meningismus. RESPIRATORY: Lungs clear and equal. CARDIOVASCULAR: Regular rate and rhythm. GI/ABDOMEN: Mild nonfocal tenderness. Soft. No organomegaly or pulsatile mass. No rebound or guarding. Normal bowel sounds. EXTREMITIES: Warm and well perfused. BACK: No CVA tenderness. NEUROLOGICAL: Intact without focal deficits. PSYCHIATRIC: normal affect. MUSCULOSKELETAL: Normally developed with good muscle tone. Medical Decision & Procedures ER Provider Diagnostic Interpretation: X ray results and stated below per my interpretation and radiology interpretation. CHEST ONE VIEW PORTABLE CLINICAL HISTORY: ABDOMINAL PAIN/GI pain COMPARISON STUDY: 04/09/2016 FINDINGS: Chronic fibrotic and ectatic change left base. Lungs otherwise appear clear. Diaphragms smooth. IMPRESSION: Chronic change. No acute process. Electronically signed by: Marcin Tariq M.D. 04/21/2016 10:50 PM Laboratory Results 04/21/16 22:20 Red Blood Count 3.63, Mean Corpuscular Volume 70.5, Mean Corpuscular Hemoglobin 23.1, Mean Corpuscular Hemoglobin Concent 32.8, Neutrophils (%) (Auto) 69.9, Lymphocytes (%) (Auto) 16.7, Monocytes (%) (Auto) 11.0, Eosinophils (%) (Auto) 2.0, Basophils (%) (Auto) 0.4, Neutrophils # (Auto) 3.81, Lymphocytes # (Auto) 0.91, Monocytes # (Auto) 0.60, Eosinophils # (Auto) 0.11, Basophils # (Auto) 0.02 04/21/16 22:20 Test 04/21/16 22:20 White Blood Count 5.45 K/uL (4.8-10.8) Red Blood Count 3.63 M/uL (4.7-6.1) Hemoglobin 8.4 g/dL (14.0-18.0) Hematocrit 25.6 % (42-52) Mean Corpuscular Volume 70.5 fL (80-100) Mean Corpuscular Hemoglobin 23.1 pg (25-34) Mean Corpuscular Hemoglobin Concent 32.8 g/dl (32-36) Platelet Count 67 K/uL (130-400) Neutrophils (%) (Auto) 69.9 % Lymphocytes (%) (Auto) 16.7 % Monocytes (%) (Auto) 11.0 % Eosinophils (%) (Auto) 2.0 % Basophils (%) (Auto) 0.4 % Neutrophils # (Auto) 3.81 K/uL (1.4-6.5) Lymphocytes # (Auto) 0.91 K/uL (1.2-3.4) Monocytes # (Auto) 0.60 K/uL (0.11-0.59) Eosinophils # (Auto) 0.11 K/uL (0-0.5) Basophils # (Auto) 0.02 K/uL (0-0.2) RDW Standard Deviation 52.4 fL (36.4-46.3) RDW Coefficient of Variation 20.4 % (11.5-14.5) Immature Granulocyte % (Auto) 0.0 % Immature Granulocyte # (Auto) 0.00 K/uL (0.00-0.02) Platelet Estimate DECREASED Anisocytosis PRESENT Prothrombin Time 14.6 SECONDS (9.0-12.0) Prothromb Time International Ratio 1.3 (0.9-1.1) Activated Partial Thromboplast Time 31.6 SECONDS (21.0-31.0) Partial Thromboplastin Ratio 1.2 Urine Color DK YELLOW Urine Appearance CLOUDY (CLEAR) Urine pH 8.0 (4.5-7.5) Urine Specific [place] 1.027 (1.000-1.030) Urine Protein NEG (NEG) Urine Glucose (UA) 3+ (NEG) Urine Ketones TRACE (NEG) Urine Occult Blood NEG (NEG) Urine Nitrite NEG (NEG) Urine Bilirubin NEG (NEG) Urine Urobilinogen NEG (NEG) Urine Leukocyte Esterase NEG (NEG) Urine WBC (Auto) 0 /hpf (0-5) Urine RBC (Auto) 0-4 /hpf (0-4) Urine Hyaline Casts (Auto) 0 /lpf (0-5) Urine Epithelial Cells (Auto) 0-5 /lpf (0-5) Urine Bacteria (Auto) NEG (NEG) Anion Gap 10.0 mmol/L (3-11) Est Creatinine Clear Calc Drug Dose 76.4 ml/min Estimated GFR () 82.9 Estimated GFR (Non- 71.6 BUN/Creatinine Ratio 12.3 (10-20) Calcium Level 8.0 mg/dl (8.5-10.1) Total Bilirubin 1.5 mg/dl (0.2-1) Aspartate Amino Transf (AST/SGOT) 33 U/L (15-37) Alanine Aminotransferase (ALT/SGPT) 25 U/L (12-78) Alkaline Phosphatase 121 U/L (45-117) Total Protein 5.4 gm/dl (6.4-8.2) Albumin 2.5 gm/dl (3.4-5.0) Globulin 2.9 gm/dl (2.5-4.0) Albumin/Globulin Ratio 0.9 (0.9-2) Lipase 110 U/L (73-393) Laboratory results as stated above per my review. Medications Administered Medications (Trade) Dose Ordered Sig/Ryan Route Start Time Stop Time Status Last Admin Dose Admin Sodium Chloride (Nss 1000ml) 1,000 ml @ 999 mls/hr Q1H1M STAT IV 04/21/16 22:25 04/21/16 23:25 DC 04/21/16 22:56 999 MLS/HR Ondansetron HCl (Zofran Inj) 4 mg NOW STAT IV 04/21/16 22:25 04/21/16 22:27 DC 04/21/16 22:57 4 MG Hydromorphone HCl (Dilaudid Inj) 2 mg Q1H PRN IV 04/21/16 22:30 05/05/16 22:29 04/21/16 22:59 2 MG ED Course 2207: Previous medical records were reviewed. The patient was evaluated in room B12B. A complete history and physical examination was performed. 0: I started an EJ IV on the patient. 2224: Ordered Zofran Inj 4 mg IV, Sodium Chloride 1,000 ml @ 999 mls/hr IV. 2230: Ordered Dilaudid Inj 2 mg IV. 0015: On reevaluation, the patient is doing well. I discussed the results and findings with the patient. He verbalized agreement of the treatment plan. The patient was discharged home. Medical Decision Differential considered: pancreatitis, hepatitis, or acute cholecystitis, AAA, UTI, pyelonephritis, kidney stones, appendicitis, diverticulitis, shingles, bowel obstruction mesenteric ischemia, intussusception,hernia, testicular torsion. This is a 61-year-old male who presents to the ED with a chief complaint of abdominal pain. The patient reports 2 episodes of nausea and vomiting today as well as a couple episodes of black stool. He has chronic history of cirrhosis. He was seen here 2 weeks ago for similar symptoms. His exam revealed some mild nonspecific and nonfocal abdominal tenderness. He is in no acute distress. His laboratory studies reveal hemoglobin of 8.4. This is baseline for the patient. Glucose was 258. This is not unusual as well. Urine did not show infection. Chest x-ray did not show any acute disease. Patient was told the results. He was treated with IV Dilaudid, IV Zofran and IV fluids. He was feeling better. He is felt to be stable for discharge. Impression Primary Impression: Abdominal pain Scribe Attestation The scribe's documentation has been prepared under my direction and personally reviewed by me in its entirety. I confirm that the note above accurately reflects all work, treatment, procedures, and medical decision making performed by me. Departure Information Dispostion Home / Self-Care Referrals Chacha Munoz D.O. (PCP) Forms HOME CARE DOCUMENTATION FORM, IMPORTANT VISIT INFORMATION Patient Instructions My [facility] Additional Instructions Follow-up with your doctor for further care and evaluation in 1-6 days. Return to the emergency department for worsening or new symptoms or any concerns. You have been examined and treated today on an emergency basis only. This is not a substitute for, or an effort to provide, complete comprehensive medical care. It is impossible to recognize and treat all injuries or illnesses in a single emergency department visit. It is therefore important that you follow up closely with your doctor. Call as soon as possible for an appointment.
[2016-04-22 00:51] LABS: ISTAT CREATININE 0.8 mg/dl (0.6-1.3); ISTAT HEMOGLOBIN 8.5 g/dl (14.0-18.0); ISTAT IONIZED CALCIUM 1.11 mmol/l (1.12-1.32)
[2016-04-22 00:59] VITALS: BP 130/78; PULSE 79; O2SAT 98
[2016-05-23] MEDS ORDERED: HYDR4TAB78 PO (09:03)
[2016-07-01] MEDS ORDERED: MAGN400T5 PO (01:36)
[2016-07-01] MEDS ORDERED: DIPH50TA10 PO (02:00)
[2016-07-01] MEDS ORDERED: TRMCR130WC EXT (03:58)
[2016-07-01] MEDS ORDERED: LACT10SO17 PO (04:04)
[2016-07-01] MEDS ORDERED: PYRI25TA PO (04:52)
[2016-07-01] MEDS ORDERED: PROP10TA7 PO (04:52)
[2016-07-01] MEDS ORDERED: FURO-85 PO (05:55)
[2016-07-01] MEDS ORDERED: LEVO75TA PO (12:02)
[2016-07-01] MEDS ORDERED: ONDA4TAB10 SL (12:02)
[2016-07-01] MEDS ORDERED: RIFA550T2 PO (13:45)
[2016-07-01] MEDS ORDERED: FERR1TAB13 PO (14:58)
[2016-07-01] MEDS ORDERED: LEVE500T PO (16:08)
[2016-07-01] MEDS ORDERED: INSDGI SC (16:08)
[2016-08-22] MEDS ORDERED: INSDGI SC (09:03)
[2016-08-22] MEDS ORDERED: MRLP17 PO (09:03)
[2016-08-29] MEDS ORDERED: POLY335019 PO (12:27)
[2016-08-29] MEDS ORDERED: INSDGI SC (12:27)
[2016-10-28] MEDS ORDERED: XFX550 PO (14:18)
[2016-11-06] MEDS ORDERED: CLIN300C2 PO (14:29)
[2016-11-06] MEDS ORDERED: LCTX PO (14:29)
== END 2016-04-22 01:01 | disposition home or self-care (01) ==
LOC: EDBD 19:31 → C.EDB 19:34
DX: R10.9 Unspecified abdominal pain (principal); I12.0 Hypertensive chronic kidney disease with stage 5 chronic kidney disease or end stage renal disease; F41.9 Anxiety disorder, unspecified; F32.9 Major depressive disorder, single episode, unspecified; E11.9 Type 2 diabetes mellitus without complications; N18.6 End stage renal disease; E78.5 Hyperlipidemia, unspecified; E03.9 Hypothyroidism, unspecified; Z79.4 Long term (current) use of insulin; R11.2 Nausea with vomiting, unspecified

== ENCOUNTER 2016-04-27 12:31 | Observation (INO) | payer OTHER ==
[~2016-04-27] VITALS: Ht 182.9 cm; Wt 77.1 kg
[2016-04-27 13:13] LABS: MEAN CORPUSCULAR HGB CONC 31.9 g/dl (32-36)
[2016-04-27 13:22] LABS: HEMATOCRIT 31.3 % (42-52); MEAN CORPUSCULAR HEMOGLOBIN 23.3 pg (25-34); RED BLOOD COUNT 4.29 M/uL (4.7-6.1); WHITE BLOOD COUNT 4.35 K/uL (4.8-10.8)
[2016-04-27 13:33] LABS: PLATELET COUNT 70 K/uL (130-400)
[2016-04-27 13:34] LABS: CREATININE 0.86 mg/dl (0.60-1.40)
[2016-04-27 13:35] LABS: CALCIUM 8.2 mg/dl (8.5-10.1); POTASSIUM 4.2 mmol/L (3.5-5.1)
[2016-04-27 13:37] LABS: ALB/GLOB RATIO 0.8 (0.9-2)
[2016-04-27 13:45] LABS: INR 1.2 (0.9-1.1); PARTIAL THROMBOPLASTIN RATIO 1.1; PROTHROMBIN TIME (PATIENT) 13.3 SECONDS (9.0-12.0)
[2016-04-27] MEDS ORDERED: ONDANSETRON INJ 2 MG/ML 2 ML VIAL IV STA (13:55)
[2016-04-27] MEDS ORDERED: HYDROmorphone INJ 1 MG/ML SYR IV STA ×2 (13:55→17:13)
[2016-04-27 13:57] LABS: BASO % 0.5 %; BASO ABS # 0.02 K/uL (0-0.2); COMPLETE YES; EOS % 3.2 %; LYMPH % 14.7 %; LYMPH ABS # 0.64 K/uL (1.2-3.4); MONO % 9.4 %; NEUT % 72.2 %
[2016-04-27] MEDS ORDERED: ALBUMIN HUMAN 25% 12.5 GM/50 ML VIAL IV ONE ×2 (14:15→15:15)
--- NOTE | 2016-04-27 16:11 | DIAGNOSTIC IMAGING REPORT ---
PARACENTESIS UNDER ULTRASOUND GUIDANCE CLINICAL HISTORY: Abdominal distention. Ascites. COMPARISON STUDY: No previous studies for comparison. FINDINGS: The risks, benefits, and alternatives to the procedure were discussed with the patient. Written informed consent was obtained. Following real-time ultrasound localization, the skin was prepped and draped. Following local anesthesia with Xylocaine, the sheath paracentesis needle was inserted and approximately 10.6 liters of straw-colored fluid was removed by vacuum suction. The patient tolerated the procedure well and left the department in satisfactory condition. IMPRESSION: Successful ultrasound-guided paracentesis with removal of approximately 10.6 liters of ascitic fluid. Electronically signed by: Pawan Garner M.D. 04/27/2016 4:10 PM Dictated Date/Time: 04/27/2016 4:10 PM
--- NOTE | 2016-04-27 19:24 | EMERGENCY ROOM VISIT NOTE ---
History Report prepared by Alla: Victorina Mccord Under the Supervision of: Dr. Tonny Villasenor M.D. First contact with patient: 13:33 Chief Complaint: ABDOMINAL PAIN Stated Complaint: ABDOMINAL PAIN Nursing Triage Summary: Pt recently here for paracentesis (2 weeks ago). Pt states that he has fill back up, difficult to breath and having abdominal pain at this time. 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 The patient's abdomen is swollen up. The patient has a history of BETANCOURT and is on the transplant list for a liver. His abdomen regularly swells up and was last drained 10 days ago. Last time he had 7 L of fluid removed and he reports that this is the worst his stomach has swollen up in recent times. He reports difficulty breathing because of the pressure from the fluid build up in his abdomen. He also reports leg swelling and numbness in his legs which are not new and from his neuropathy. Pt denies LOC, headache, fevers, chills, diaphoresis, visual changes, neck pain, chest pain, nausea, vomiting, back pain, melena, hematochezia, urinary symptoms , weakness, lymphadenopathy, rash, or other complaints. 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 Review of Systems See HPI for pertinent positives and negatives. A total of ten systems were reviewed and were otherwise negative. 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 Surgical Problems: (1) H/O esophagogastroduodenoscopy (2) H/O knee surgery (3) S/P cervical spinal fusion (4) S/P IVC filter (5) S/P lumbar fusion (6) S/P T&A (status post tonsillectomy and adenoidectomy) Family History FH: CAD (coronary artery disease) FATHER FH: breast cancer MOTHER Social History Smoking Status: Former Smoker Alcohol Use: none Drug Use: none Marital Status: single Housing Status: lives alone Occupation Status: retired Current/Historical Medications Scheduled Escitalopram (Lexapro), 10 MG PO DAILY Ferrous Sulfate (Kp Ferrous Sulfate), 1 TAB PO BID Furosemide (Lasix), 20 MG PO BID Insulin Aspart (Novolog Penfill), SQ TIDM Insulin Glargine (Lantus), 32 UNITS SC HS Lactulose (Chronulac), 20 GM PO TID Levetiractam (Levetiracetam), 500 MG PO AMHS Levothyroxine Sodium (Synthroid), 75 MCG PO DAILY Magnesium Oxide (Mag-Ox), 400 MG PO BID Pantoprazole (Protonix), 40 MG PO BID Pregabalin (Lyrica), 75 MG PO TID Propranolol (Inderal), 10 MG PO BID Pyridoxine Hcl (Vitamin B-6), 25 MG PO HS Rifaximin (Xifaxan), 550 MG PO AMHS Spironolactone (Aldactone), 1 TAB PO DAILY Scheduled PRN Diphenhydramine HCl (Diphenhydramine HCl), 25 MG PO BID PRN for itching/rash Hydromorphone Hcl (Dilaudid), 4 MG PO Q8 PRN for Pain Ondasetron Odt (Zofran Odt), 4 MG SL Q6H PRN for Nausea or Vomiting Triamcinolone Acet (Aristocort 0.1%), 1 APPL EXT BID PRN for dermatitis Allergies Coded Allergies: Acetaminophen (Verified Allergy, Severe, ESLD (BETANCOURT). on Liver transplant list. Cannot have APAP., 04/27/16) NSAIDs (Verified Allergy, Severe, DUE TO LIVER DISEAS, 04/27/16) Penicillins (Verified Allergy, Severe, JOINT SWELLING AND FEVER, 04/27/16) Levofloxacin (Verified Allergy, Mild, RASH, 04/27/16) pt developed erythema at site of IV injection with itching Vancomycin (Verified Allergy, Mild, HIVES, 04/27/16) HIVES Tramadol (Verified Allergy, Unknown, NOT TO TAKE WITH KEPPRA DUE TO SEIZURE RISK, 04/27/16) Physical Exam Vital Signs Date Time Temp Pulse Resp B/P Pulse Ox O2 Delivery O2 Flow Rate FiO2 04/27/16 18:55 103 18 151/86 99 Room Air 04/27/16 17:29 93 18 128/74 100 Room Air 04/27/16 16:18 90 19 137/73 100 Room Air 04/27/16 12:41 99 Nasal Cannula 2.0 04/27/16 12:35 88 18 146/88 88 Room Air Physical Exam GENERAL: Awake, alert, chronically ill-appearing, in no distress HENT: Normocephalic, atraumatic. Oropharynx unremarkable. EYES: Normal conjunctiva. Sclera non-icteric. NECK: Supple. No nuchal rigidity. FROM. No JVD. RESPIRATORY: Clear to auscultation. CARDIAC: Regular rate, normal rhythm. Extremities warm and well perfused. Pulses equal. ABDOMEN: Soft, distended abdomen with fluid wave present. Umbilical hernia that is nontender. No tenderness to palpation. No rebound or guarding. No masses. RECTAL: Deferred. MUSCULOSKELETAL: Chest examination reveals no tenderness. The back is symmetrical on inspection without obvious abnormality. There is no CVA tenderness to palpation. No joint edema. LOWER EXTREMITIES: Calves are equal size bilaterally and non-tender. 3+ lower extremity edema. No discoloration. NEURO: Normal sensorium. No motor deficits noted. Subjective numbness in the lower extremities. SKIN: No rash or jaundice noted. Medical Decision & Procedures ER Provider Diagnostic Interpretation: Radiology results as stated below per my review and radiologist interpretation. PARACENTESIS UNDER ULTRASOUND GUIDANCE CLINICAL HISTORY: Abdominal distention. Ascites. COMPARISON STUDY: No previous studies for comparison. FINDINGS: The risks, benefits, and alternatives to the procedure were discussed with the patient. Written informed consent was obtained. Following real-time ultrasound localization, the skin was prepped and draped. Following local anesthesia with Xylocaine, the sheath paracentesis needle was inserted and approximately 10.6 liters of straw-colored fluid was removed by vacuum suction. The patient tolerated the procedure well and left the department in satisfactory condition. IMPRESSION: Successful ultrasound-guided paracentesis with removal of approximately 10.6 liters of ascitic fluid. Electronically signed by: Pawan Garner M.D. 04/27/2016 4:10 PM Dictated Date/Time: 04/27/2016 4:10 PM Laboratory Results 04/27/16 13:04 Red Blood Count 4.29, Mean Corpuscular Volume 73.0, Mean Corpuscular Hemoglobin 23.3, Mean Corpuscular Hemoglobin Concent 31.9, Neutrophils (%) (Auto) 72.2, Lymphocytes (%) (Auto) 14.7, Monocytes (%) (Auto) 9.4, Eosinophils (%) (Auto) 3.2, Basophils (%) (Auto) 0.5, Neutrophils # (Auto) 3.14, Lymphocytes # (Auto) 0.64, Monocytes # (Auto) 0.41, Eosinophils # (Auto) 0.14, Basophils # (Auto) 0.02 04/27/16 13:04 Test 04/27/16 13:04 White Blood Count 4.35 K/uL (4.8-10.8) Red Blood Count 4.29 M/uL (4.7-6.1) Hemoglobin 10.0 g/dL (14.0-18.0) Hematocrit 31.3 % (42-52) Mean Corpuscular Volume 73.0 fL (80-100) Mean Corpuscular Hemoglobin 23.3 pg (25-34) Mean Corpuscular Hemoglobin Concent 31.9 g/dl (32-36) Platelet Count 70 K/uL (130-400) Neutrophils (%) (Auto) 72.2 % Lymphocytes (%) (Auto) 14.7 % Monocytes (%) (Auto) 9.4 % Eosinophils (%) (Auto) 3.2 % Basophils (%) (Auto) 0.5 % Neutrophils # (Auto) 3.14 K/uL (1.4-6.5) Lymphocytes # (Auto) 0.64 K/uL (1.2-3.4) Monocytes # (Auto) 0.41 K/uL (0.11-0.59) Eosinophils # (Auto) 0.14 K/uL (0-0.5) Basophils # (Auto) 0.02 K/uL (0-0.2) RDW Standard Deviation 54.0 fL (36.4-46.3) RDW Coefficient of Variation 20.2 % (11.5-14.5) Immature Granulocyte % (Auto) 0.0 % Immature Granulocyte # (Auto) 0.00 K/uL (0.00-0.02) Prothrombin Time 13.3 SECONDS (9.0-12.0) Prothromb Time International Ratio 1.2 (0.9-1.1) Activated Partial Thromboplast Time 29.7 SECONDS (21.0-31.0) Partial Thromboplastin Ratio 1.1 Anion Gap 9.0 mmol/L (3-11) Est Creatinine Clear Calc Drug Dose 97.8 ml/min Estimated GFR () 107.7 Estimated GFR (Non- 92.9 BUN/Creatinine Ratio 11.0 (10-20) Calcium Level 8.2 mg/dl (8.5-10.1) Total Bilirubin 2.1 mg/dl (0.2-1) Aspartate Amino Transf (AST/SGOT) 30 U/L (15-37) Alanine Aminotransferase (ALT/SGPT) 24 U/L (12-78) Alkaline Phosphatase 122 U/L (45-117) Total Protein 6.1 gm/dl (6.4-8.2) Albumin 2.7 gm/dl (3.4-5.0) Globulin 3.4 gm/dl (2.5-4.0) Albumin/Globulin Ratio 0.8 (0.9-2) Lipase 86 U/L (73-393) Laboratory results reviewed by me Medications Administered Medications (Trade) Dose Ordered Sig/Ryan Route Start Time Stop Time Status Last Admin Dose Admin Hydromorphone HCl (Dilaudid Inj) 1 mg NOW STAT IV 04/27/16 13:55 04/27/16 13:59 DC 04/27/16 14:33 1 MG Ondansetron HCl (Zofran Inj) 4 mg NOW STAT IV 04/27/16 13:55 04/27/16 13:59 DC 04/27/16 14:33 4 MG Albumin Human (Albumin 25%) 25 gm ONE ONCE IV 04/27/16 14:15 04/27/16 14:16 DC 04/27/16 14:33 25 GM Albumin Human (Albumin 25%) 12.5 gm ONE ONCE IV 04/27/16 15:15 04/27/16 15:16 DC 04/27/16 16:17 12.5 GM Hydromorphone HCl (Dilaudid Inj) 1 mg NOW STAT IV 04/27/16 17:13 04/27/16 17:14 DC 04/27/16 17:28 1 MG ECG Indication: SOB/dyspnea Rate (beats per minute): 85 Rhythm: normal sinus Findings: nonspecific-ST abn, no acute ischemic change ED Course 1353: The patient was evaluated in room C12. A complete history and physical exam was performed. 1355: Zofran Inj 4 mg IV, Dilaudid Inj 1 mg IV. 1415: Albumin Human 25 gm IV. 1515: Albumin Human 12.5 gm IV. 1713: Dilaudid Inj 1 mg IV. 1800: I reevaluated the patient. He is resting comfortably. I discussed the test results and treatment plan with him. He is uncomfortable going home. The patient will be evaluated for further management. 1803: I discussed the patient's case with COURT Harmon. The patient will be evaluated for further management. Medical Decision Triage Nursing notes reviewed. The patient's presentation and history were concerning for abdominal distention and known ascites secondary to liver failure. Etiologies such as ascites, hypoalbuminemia, obstruction, electrolyte abnormality, as well as others were entertained. The patient has had multiple paracenteses performed recently. He was very distended. A CBC showed a mild anemia and thrombocytopenia. INR is 1.2. Mild elevation of LFTs. Lipase was normal. He had no significant abdominal tenderness just some generalized discomfort. He is on oral Dilaudid at home. He did request analgesia here. The patient was treated with IV Dilaudid and Zofran. He felt better with this. I did discuss the case with Dr. Pawan Garner of radiology who agreed to perform a therapeutic paracentesis. The patient was given albumin similar to his prior procedures. He underwent the paracentesis. A culture was sent. The patient felt significantly better afterwards. He did note during the procedure and afterwards that he had some left upper quadrant discomfort. He was given a dose of Dilaudid for this. The patient did not feel comfortable going home as he is generally weak. I consulted with internal medicine. The patient was evaluated by internal medicine for further management. The chart was completed utilizing [employer] voice recognition software. Grammatical errors, random word insertions, pronoun errors, and incomplete sentences are an occasional consequence of this system due to software limitations, ambient noise, and hardware issues. Any formal questions or concerns about the content, text, or information contained within the body of this dictation should be directly addressed to the physician for clarification. Consults Time Called: 1800 Consulting Physician: COURT Harmon Returned Call: [phone] I discussed the patient's case with her. The patient will be evaluated for further management. Impression Primary Impression: Abdominal pain Additional Impressions: Ascites Weakness Scribe Attestation The scribe's documentation has been prepared under my direction and personally reviewed by me in its entirety. I confirm that the note above accurately reflects all work, treatment, procedures, and medical decision making performed by me. Departure Information Dispostion Being Evaluated By Hospitalist Referrals Chacha Munoz D.O. (PCP) Patient Instructions My [facility] Problem Qualifiers
[2016-04-27] MEDS ORDERED: GLUCOSE 40% GEL 15 GM TUBE PO PRN (20:00)
[2016-04-27] MEDS ORDERED: GLUCOSE 10 TABS/TUBE PO PRN (20:00)
[2016-04-27] MEDS ORDERED: IV FLUIDS COMPLETED PRN (20:00)
[2016-04-27] MEDS ORDERED: ACETAMINOPHEN 325 MG TAB PO PRN (20:00)
[2016-04-27] MEDS ORDERED: GLUCAGON FOR INJ 1 MG VIAL SQ PRN (20:00)
[2016-04-27] MEDS ORDERED: DEXTROSE 50% 50 ML SYR IV PRN (20:00)
[2016-04-27] MEDS ORDERED: HYDROmorphone HCL 2 MG TAB PO PRN (20:15)
[2016-04-27] MEDS ORDERED: ONDANSETRON 4MG OD TAB SL PRN (20:15)
[2016-04-27 20:25] VITALS: BP 136/83; PULSE 99; TEMP 36.7; O2SAT 98; BMI 23.1
--- NOTE | 2016-04-27 20:42 | History and Physical ---
History & Physical Date & Time of Service: Apr 27, 2016 at 20:03 Chief Complaint: Abdominal Pain Primary Care Physician: Chacha Munoz D.O. History of Present Illness Source: patient, clinic records, hospital records This is a 61 y/o male with PMH of BETANCOURT cirrhosis with recurrent ascites, thrombocytopenia, DM type 2, hyperlipidemia, chronic pain, h/o PE s/p IVC filter , and other problems listed below who presents to the ED for ascites. Patient was recently hospitalized at [facility] April 09 for generalized weakness and ascites s/p US guided paracentesis 04/10 with approx 6 liters fluid removed. He was d/c to [facility] then to home w/ services. He was feeling better until yesterday he developed increasing abdominal girth, diffuse abdominal discomfort , swelling of the upper and lower extremities, and mild shortness of breath. He notes 15 lb weight gain in 3 days. Admits to adding sea salt to food. No missed diuretics. He underwent paracentesis today with 10.6 liters removed. Abdominal symptoms and SOB are resolved. Tolerated a sandwich in ER. Still has peripheral edema. Since yesterday afternoon has also had constant left sided chest pain which she describes as "jabbing knife" sensation below the left nipple. It is worse if he sits upright. Has not been exerting himself for past 2 days due to increased generalized weakness. He states he had this pain before but it was less severe and would resolve 1-2 hours after paracentesis. He states prior CP was rated 5-6/10 but is currently 7-8/10 which is concerning to him. He had cold sweats overnight but did not take his temp. He takes narcotics prescribed by pain management for chronic back pain. Denies cough, vomiting, diarrhea, abnormal bleeding, jaundice, confusion. No hx of heart disease. He reports normal stress test 2 years ago. Echo 05/2015 showed normal EF and no valvular disease. 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 Surgical Problems: (1) H/O esophagogastroduodenoscopy Status: Resolved (2) H/O knee surgery Status: Resolved (3) S/P cervical spinal fusion Status: Resolved (4) S/P IVC filter Status: Resolved (5) S/P lumbar fusion Status: Resolved (6) S/P T&A (status post tonsillectomy and adenoidectomy) Status: Resolved Family History FH: CAD (coronary artery disease) FATHER FH: breast cancer MOTHER Social History Smoking Status: Never Smoker Alcohol Use: none Drug Use: none Marital Status: single Housing status: lives with roommate Occupational Status: retired Immunizations History of Influenza Vaccine: Yes Influenza Vaccine Date: Oct 21, 2014 History of Tetanus Vaccine?: Yes Tetanus Immunization Date: Mar 15, 1972 History of Pneumococcal: Yes Pneumococcal Date: Feb 05, 2009 History of Hepatitis B Vaccine: Yes Hepatitis Immunization Date: June 18, 2013 Multi-Drug Resistant Organisms History of MDRO: No Allergies Coded Allergies: NSAIDs (Verified Allergy, Severe, DUE TO LIVER DISEAS, 04/27/16) Penicillins (Verified Allergy, Severe, JOINT SWELLING AND FEVER, 04/27/16) Levofloxacin (Verified Allergy, Mild, RASH, 04/27/16) pt developed erythema at site of IV injection with itching Vancomycin (Verified Allergy, Mild, HIVES, 04/27/16) HIVES Acetaminophen (Unverified Allergy, Unknown, unknown, 04/27/16) Tramadol (Verified Allergy, Unknown, NOT TO TAKE WITH KEPPRA DUE TO SEIZURE RISK, 04/27/16) Home Medications Scheduled Escitalopram (Lexapro), 10 MG PO DAILY Ferrous Sulfate (Kp Ferrous Sulfate), 1 TAB PO BID Furosemide (Lasix), 20 MG PO BID Insulin Aspart (Novolog Penfill), SQ TIDM Insulin Glargine (Lantus), 32 UNITS SC HS Lactulose (Chronulac), 20 GM PO TID Levetiractam (Levetiracetam), 500 MG PO AMHS Levothyroxine Sodium (Synthroid), 75 MCG PO DAILY Magnesium Oxide (Mag-Ox), 400 MG PO BID Pantoprazole (Protonix), 40 MG PO BID Pregabalin (Lyrica), 75 MG PO TID Propranolol (Inderal), 10 MG PO BID Pyridoxine Hcl (Vitamin B-6), 25 MG PO HS Rifaximin (Xifaxan), 550 MG PO AMHS Spironolactone (Aldactone), 1 TAB PO DAILY Scheduled PRN Diphenhydramine HCl (Diphenhydramine HCl), 25 MG PO BID PRN for itching/rash Hydromorphone Hcl (Dilaudid), 4 MG PO Q8 PRN for Pain Ondasetron Odt (Zofran Odt), 4 MG SL Q6H PRN for Nausea or Vomiting Triamcinolone Acet (Aristocort 0.1%), 1 APPL EXT BID PRN for dermatitis Review of Systems Ten point ROS performed with pertinent positives and negatives noted in HPI. Physical Exam Vital Signs Date Time Temp Pulse Resp B/P Pulse Ox O2 Delivery O2 Flow Rate FiO2 04/27/16 19:55 97 18 143/91 99 04/27/16 18:55 103 18 151/86 99 Room Air 04/27/16 17:29 93 18 128/74 100 Room Air 04/27/16 16:18 90 19 137/73 100 Room Air 04/27/16 12:41 99 Nasal Cannula 2.0 04/27/16 12:35 88 18 146/88 88 Room Air General Appearance: WD/WN, no apparent distress Head: normocephalic, atraumatic Eyes: normal inspection, PERRL, EOMI ENT: hearing grossly normal, pharynx normal Neck: supple, trachea midline Respiratory/Chest: lungs clear, normal breath sounds, no respiratory distress, + pertinent finding (+ reproducible left chest wall tenderness) Cardiovascular: regular rate, rhythm, no murmur Abdomen/GI: normal bowel sounds, non tender, soft, + pertinent finding (soft nondistended s/p therapeutic paracentesis) Extremities/Musculoskelatal: no calf tenderness, + pertinent finding (1+ ankle edema bilaterally) Neurologic/Psych: no motor/sensory deficits, alert, normal mood/affect, oriented x 3 Skin: normal color, warm/dry, + pertinent finding (scattered excoriations on abdomen and lower extremities. few healing superficial abrasions on his feet. no erythema or drainage. ) Diagnostics Laboratory Results Results Past 24 Hours Test 04/27/16 13:04 04/27/16 19:00 Range/Units White Blood Count 4.35 4.8-10.8 K/uL Red Blood Count 4.29 4.7-6.1 M/uL Hemoglobin 10.0 14.0-18.0 g/dL Hematocrit 31.3 42-52 % Mean Corpuscular Volume 73.0 80-100 fL Mean Corpuscular Hemoglobin 23.3 25-34 pg Mean Corpuscular Hemoglobin Concent 31.9 32-36 g/dl Platelet Count 70 130-400 K/uL Neutrophils (%) (Auto) 72.2 % Lymphocytes (%) (Auto) 14.7 % Monocytes (%) (Auto) 9.4 % Eosinophils (%) (Auto) 3.2 % Basophils (%) (Auto) 0.5 % Neutrophils # (Auto) 3.14 1.4-6.5 K/uL Lymphocytes # (Auto) 0.64 1.2-3.4 K/uL Monocytes # (Auto) 0.41 0.11-0.59 K/uL Eosinophils # (Auto) 0.14 0-0.5 K/uL Basophils # (Auto) 0.02 0-0.2 K/uL RDW Standard Deviation 54.0 36.4-46.3 fL RDW Coefficient of Variation 20.2 11.5-14.5 % Immature Granulocyte % (Auto) 0.0 % Immature Granulocyte # (Auto) 0.00 0.00-0.02 K/uL Prothrombin Time 13.3 9.0-12.0 SECONDS Prothromb Time International Ratio 1.2 0.9-1.1 Activated Partial Thromboplast Time 29.7 21.0-31.0 SECONDS Partial Thromboplastin Ratio 1.1 Sodium Level 137 136-145 mmol/L Potassium Level 4.2 3.5-5.1 mmol/L Chloride Level 104 98-107 mmol/L Carbon Dioxide Level 24 21-32 mmol/L Anion Gap 9.0 3-11 mmol/L Blood Urea Nitrogen 9 7-18 mg/dl Creatinine 0.86 0.60-1.40 mg/dl Est Creatinine Clear Calc Drug Dose 97.8 ml/min Estimated GFR () 107.7 Estimated GFR (Non- 92.9 BUN/Creatinine Ratio 11.0 10-20 Random Glucose 198 70-99 mg/dl Calcium Level 8.2 8.5-10.1 mg/dl Total Bilirubin 2.1 0.2-1 mg/dl Aspartate Amino Transf (AST/SGOT) 30 15-37 U/L Alanine Aminotransferase (ALT/SGPT) 24 12-78 U/L Alkaline Phosphatase 122 45-117 U/L Troponin I < 0.015 0-0.045 ng/ml Total Protein 6.1 6.4-8.2 gm/dl Albumin 2.7 3.4-5.0 gm/dl Globulin 3.4 2.5-4.0 gm/dl Albumin/Globulin Ratio 0.8 0.9-2 Lipase 86 73-393 U/L Creatine Kinase MB Ratio 0-3.0 Microbiology Results 04/27/16 Gram Stain, Received Pending 04/27/16 Bacterial Culture, Received Pending Diagnostic Radiology PARACENTESIS UNDER ULTRASOUND GUIDANCE CLINICAL HISTORY: Abdominal distention. Ascites. COMPARISON STUDY: No previous studies for comparison. FINDINGS: The risks, benefits, and alternatives to the procedure were discussed with the patient. Written informed consent was obtained. Following real-time ultrasound localization, the skin was prepped and draped. Following local anesthesia with Xylocaine, the sheath paracentesis needle was inserted and approximately 10.6 liters of straw-colored fluid was removed by vacuum suction. The patient tolerated the procedure well and left the department in satisfactory condition. IMPRESSION: Successful ultrasound-guided paracentesis with removal of approximately 10.6 liters of ascitic fluid. 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 Afebrile, no leukocytosis S/p therapeutic paracentesis in ER 04/27/16 with 10.6 liters removed Received albumin before and after paracentesis Continue Lasix, spironolactone, rifaximin, lactulose Fluid restriction 1.5 liters; low sodium diet- discussed w/ patient GENERALIZED WEAKNESS PT and OT evaluations Fall precautions CHRONIC ANEMIA Hg is 10; stable from baseline ~ 8-10 CHRONIC THROMBOCYTOPENIA Plt count 70; stable from his baseline Due to ESLD Denies bleeding CHRONIC PAIN On chronic PO Dilaudid 4 mg q8h PRN Follows with [facility] pain management DM TYPE 2 Continue Lantus Insulin sliding scale coverage A1c was 11.6 on 04/03/16 CKD STAGE III Creat is stable Avoid nephrotoxins H/O SEIZURE DISORDER Continue Keppra HISTORY OF PE S/p IVC filter Not on anticoagulation due to thrombocytopenia/ bleeding risk PA DRUG MONITORING Shows Dilaudid 4 mg [address] Olguin filled 04/22/16; prior to that Dilaudid Rx 90 tabs in February from Poli Acosta MD in [place] DVT PROPHYLAXIS SCD's due to thrombocytopenia FULL CODE Per patient's preference on recent admission DISPOSITION Lives with room mate; has home health Follows with Dr. Munoz for primary care Patient seen in collaboration with Dr. French. Please see his addendum. Attending Addendum Pt was seen and examined. 61 y/o male with PMH of BETANCOURT, cirrhosis, recurrent ascites, thrombocytopenia, DM type 2, hyperlipidemia, chronic pain, h/o PE s/p IVC filter presents to the ED for ascites. He was recently admitted on April 09- for generalized weakness and ascites; he had US guided paracentesis done where they removed 6 liters fluid. Today he came to the ER for similar symptoms such as generalized weakness and chest pain.U/S paracentesis done to day where they removed about 11L of fluid. He was planing to be discharged after the paracentesis when he said that he continue having chest pain that is different and last longer compare to previous chest pain. General- No acute distress Head- atraumatic Eyes- PERRL, EOMI ENT- oropharynx clear Neck- supple, no JVD Lungs- clear to auscultation, no wheezing Heart- regular rhythm; no murmur Abdomen- normal bowel sounds, soft Extremities- no calf tenderness Neuro- alert, oriented x 3; PERRL, EOMI; no facial palsy Skin- warm & dry A/p CHEST PAIN Mostly Atypical, Need to rule out ACS First set troponin negative, will follow 2 more set EKG did not shown any significant ST changes Continue pain control Monitor in telemetry RECURRENT ASCITES Afebrile, no leukocytosis S/p therapeutic paracentesis today where 10.6 liters fluid removed Received albumin Continue Lasix, spironolactone, rifaximin, lactulose Fluid restriction Lab, EKG, imaging reviewed Please refer to Ramila WINSTON's documentation for other problems Shiva French MD VTE Prophylaxis VTE Risk Assessment Done? Y/N: Yes Risk Level: Moderate
[2016-04-27 21:06] LABS: CKMB/CK RATIO 3.4 (0-3.0)
[2016-04-27] MEDS: RIFAXIMIN TAB 550 MG TAB PO SCH (21:32)
[2016-04-27] MEDS: PYRIDOXINE HCL 50 MG TAB PO SCH (21:32)
[2016-04-27] MEDS: MAGNESIUM OXIDE 400 MG TAB PO SCH (21:32)
[2016-04-27] MEDS: LEVETIRACETAM 500 MG TAB PO SCH (21:32)
[2016-04-27] MEDS: PANTOprazole SOD 40 MG TAB PO SCH (21:32)
[2016-04-27] MEDS: FUROSEMIDE 20 MG TAB PO SCH (21:33)
[2016-04-27] MEDS: PREGABALIN 75 MG CAP PO SCH (21:33)
[2016-04-27] MEDS: PROPRANOLOL HCL 10 MG TAB PO SCH (21:33)
[2016-04-27] MEDS: LACTULOSE SYRUP 20 GM/30 ML UDC PO SCH (21:33)
[2016-04-27] MEDS: FERROUS SULFATE 325 MG TAB PO SCH (21:34)
[2016-04-27] MEDS: INSULIN GLARGINE SOLOSTAR 100 UNITS/ML 3 ML PEN SC SCH (21:52)
[2016-04-27] MEDS: INSULIN ASPART 100 UNITS/ML 3 ML PEN SC SCH (21:53)
[2016-04-27 23:08] VITALS: BP 108/63; PULSE 74; TEMP 36.6; O2SAT 99
[2016-04-28] VITALS (10 sets, daily range): BP systolic 97–111; BP diastolic 49–69; PULSE 65–78; TEMP 36.6–36.7; O2SAT 98–99; Ht 182.9 cm; Wt 77.1 kg
[2016-04-28 01:51] LABS: CKMB/CK RATIO 4.2 (0-3.0)
[2016-04-28] MEDS ORDERED: HYDROmorphone HCL 2 MG TAB ONE (04:01)
[2016-04-28] MEDS: LEVOTHYROXINE 75 MCG TAB PO SCH ×2 (06:00→06:38)
[2016-04-28 06:56] LABS: URINE APPEARANCE CLEAR (CLEAR); URINE COLOR DK YELLOW; URINE NITRITE NEG (NEG); UROBILINOGEN NEG (NEG); ZZUR CULT IF INDIC CLEAN CATCH NO
[2016-04-28 07:04] LABS: URINE BILIRUBIN NEG (NEG)
[2016-04-28 07:05] LABS: MANUAL MICROSCOPIC REQUIRED? NO; REVIEW REQ? NO
[2016-04-28] MEDS: LACTULOSE SYRUP 20 GM/30 ML UDC PO SCH ×3 (08:51→20:43)
[2016-04-28] MEDS: PREGABALIN 75 MG CAP PO SCH ×3 (08:51→20:45)
[2016-04-28] MEDS: HYDROmorphone HCL 2 MG TAB PO PRN ×3 (08:52→20:46)
[2016-04-28] MEDS: ESCITALOPRAM OXALATE 10 MG TAB PO SCH (08:53)
[2016-04-28] MEDS: SPIRONOLACTONE 100 MG TAB PO SCH (08:53)
[2016-04-28] MEDS: PROPRANOLOL HCL 10 MG TAB PO SCH ×2 (08:53→20:41)
[2016-04-28] MEDS: FERROUS SULFATE 325 MG TAB PO SCH ×2 (08:53→20:36)
[2016-04-28] MEDS: LEVETIRACETAM 500 MG TAB PO SCH ×2 (08:53→20:36)
[2016-04-28] MEDS: PANTOprazole SOD 40 MG TAB PO SCH ×2 (08:53→20:38)
[2016-04-28] MEDS: FUROSEMIDE 20 MG TAB PO SCH ×2 (08:53→18:10)
[2016-04-28] MEDS: RIFAXIMIN TAB 550 MG TAB PO SCH ×2 (08:53→20:37)
[2016-04-28] MEDS: MAGNESIUM OXIDE 400 MG TAB PO SCH ×2 (08:54→20:37)
[2016-04-28] MEDS: TRIAMCINOLONE ACET 0.1% CR 15 GM TUBE EXT PRN (08:59)
[2016-04-28] MEDS: INSULIN ASPART 100 UNITS/ML 3 ML PEN SC SCH ×4 (09:01→20:35)
--- NOTE | 2016-04-28 17:14 | Gastrointestinal Consultation ---
Gastrointestinal Consultation Date of Consultation: Apr 28, 2016 Attending Physician: Dr. Mckenzie Consulting Physician: Dr. Mo Reason for Consultation: Cirrhosis, ascites History of Present Illness Patient is a 60 year old male pt of Dr. Liu with a hx of DM-2, BETANCOURT cirrhosis complicated by esophageal varices, prior hepatic encephalopathy BETANCOURT, Dyslipidemia, Portal Hypertension, History PE, S/P IVC filter placement, Anxiety /Depression. He presented to the ED yesterday with c/o enlarging abdominal girth. GI is consulted for BETANCOURT cirrhosis and ascites. Most recent imaging was a CT on 03/23/16 with cirrhosis, evidence of portal hypertension, splenomegaly, ascites and cholelithiasis, no focal liver masses. Most recent tap was 04/10/16, 6 Liters. He is managed in GI clinic by Dr. Culver. His outpatient GI meds are: Lasix 40mg BID, Spironolactone 100mg daily, Lactulose 20grams BID, Protonix 40mg BID, Xifaxin 550mg BID. He typically undergoes paracentesis every 2-4 weeks. Though paracentesis have been arranged as an OP he typically does not come for pre-arranged paracentesis. I suspect he may have difficulty asking friends/family for rides. At any rate, we have been unable to plan for OP paracentesis and he be brought to the ED when he has large ascites. He has been seen previously by liver transplant but not listed due to low MELD. He has been recommended for TIPS but has not been able to get to the evaluation appts. Today's MELD is 10. On arrival pt was feeling well other than a large abdominal girth, asking for paracentesis. This actually already took place this morning, 11 L removed. Since the paracentesis he complains of chest pain, though he is hemodynamically stable, does not be uncomfortable, is talkative, when suggested that he may be ready to go home, he tells me that he has chest pain. Past Medical/Surgical History Medical Problems: (1) Abdominal pain Status: Acute (2) Abdominal pain Status: Acute (3) Abdominal pain Status: Acute (4) Acute hyperglycemia Status: Acute (5) Ambulatory dysfunction Status: Acute (6) Ambulatory dysfunction Status: Acute (7) Anasarca Status: Acute (8) Anemia Status: Acute (9) Anemia Status: Acute (10) Anemia Status: Acute (11) Ascites Status: Acute (12) Ascites Status: Acute (13) Ascites Status: Acute (14) Ascites Status: Acute (15) Ascites Status: Acute (16) Chest pain Status: Acute (17) Chronic liver failure Status: Acute (18) Chronic low back pain Status: Acute (19) Cirrhosis Status: Acute (20) Cirrhosis of liver Status: Acute (21) Contusion of left foot Status: Acute (22) Diarrhea Status: Acute (23) Dyspnea Status: Acute (24) Generalized weakness Status: Acute (25) HHNC (hyperglycemic hyperosmolar nonketotic coma) Status: Acute (26) Hyperglycemia Status: Acute (27) Hyperglycemia Status: Acute (28) Hyperglycemia Status: Acute (29) Hypoglycemia Status: Acute (30) Hypoglycemia Status: Acute (31) Muscle weakness Status: Acute (32) Nausea, vomiting, and diarrhea Status: Acute (33) Thrombocytopenia Status: Acute (34) Weakness Status: Acute Past Medical History: 1. Cirrhosis complicated by EV, PHG, ascites, prior hepatic encephalopathy. 2. DM, insulin dependant, diabetic neuropathy 3. DVT/PE, S/P IVC filter 4. Pneumonia 5. Hyperlipidemia 6. Hypothyroidism 7. Seizure disorder Past Surgical History: 1. Multiple prior paracentesis 2. Cervical spine fusion 3. Lumbar spine fusion 4. Tonsillectomy and adenoidectomy 5. Orthoscopic knee surgery 6. IVC filter placement 7. Most recent EGD 12/2014 Dr. Culver: grade II non bleeding esophageal varices , portal hypertensive gastropathy. Family History FH: CAD (coronary artery disease) FATHER FH: breast cancer MOTHER Social History Smoking Status: Never Smoker Alcohol Use: none Drug Use: none Marital Status: single Housing Status: lives alone Occupation Status: retired Allergies Coded Allergies: Acetaminophen (Verified Allergy, Severe, ESLD (BETANCOURT). on Liver transplant list. Cannot have APAP., 04/27/16) NSAIDs (Verified Allergy, Severe, DUE TO LIVER DISEAS, 04/27/16) Penicillins (Verified Allergy, Severe, JOINT SWELLING AND FEVER, 04/27/16) Levofloxacin (Verified Allergy, Mild, RASH, 04/27/16) pt developed erythema at site of IV injection with itching Vancomycin (Verified Allergy, Mild, HIVES, 04/27/16) HIVES Tramadol (Verified Allergy, Unknown, NOT TO TAKE WITH KEPPRA DUE TO SEIZURE RISK, 04/27/16) Current Medications Home Meds and Scripts Medications Dose Route/Sig Max Daily Dose Days Date Category Dose Instructions Kp Ferrous Sulfate (Ferrous Sulfate) 325 Mg Tab 1 Tab PO BID 04/27/16 Reported Diphenhydramine HCl 25 Mg Cap 25 Mg PO BID PRN 7 04/10/16 Rx Dilaudid (Hydromorphone Hcl) 2 Mg Tab 4 Mg PO Q8 PRN 3 04/09/16 Reported Lasix (Furosemide) 20 Mg Tab 20 Mg PO BID 04/09/16 Reported Chronulac (Lactulose) 10 Gm/15 Ml Syrp 20 Gm PO TID 03/27/16 Reported Aristocort 0.1% (Triamcinolone Acet) 90 Appln/30 Gm Cr 1 Appl EXT BID PRN 03/27/16 Reported Novolog Penfill (Insulin Aspart) 100 Unit/Ml Inj SQ TIDM 03/13/16 Reported via SSI Lantus (Insulin Glargine) 100 Unit/Ml Inj 32 Units SC HS 03/13/16 Reported Levetiracetam (Levetiractam) 500 Mg Tab 500 Mg PO AMHS 03/13/16 Reported Aldactone (Spironolactone) 100 Mg Tab 1 Tab PO DAILY 30 12/10/15 Reported Inderal (Propranolol HCl) 10 Mg Tab 10 Mg PO BID 06/04/15 Reported Vitamin B-6 (Pyridoxine Hcl) 25 Mg Tab 25 Mg PO HS 06/04/15 Reported Synthroid (Levothyroxine Sodium) 75 Mcg Tab 75 Mcg PO DAILY 05/07/15 Reported Lyrica (Pregabalin) 75 Mg Cap 75 Mg PO TID 05/07/15 Reported Zofran Odt (Ondansetron HCl) 4 Mg Tab 4 Mg SL Q6H PRN 05/07/15 Reported Lexapro (Escitalopram Oxalate) 10 Mg Tab 10 Mg PO DAILY 10/30/14 Reported Protonix (Pantoprazole) 40 Mg Tab 40 Mg PO BID 08/04/14 Reported Xifaxan (Rifaximin) 550 Mg Tab 550 Mg PO AMHS 05/20/13 Reported ONE AT BREAKFAST AND ONE AT SUPPER. Mag-Ox (Magnesium Oxide) 400 Mg Tab 400 Mg PO BID 09/29/11 Reported Review of Systems Constitutional: No chills, No fever, No sweats, No weakness, No weight loss Eyes: No eye pain, No redness ENT: No pain on swallowing, No sore throat, No trouble swallowing Respiratory: No cough, No dyspnea on exertion, No shortness of breath, No wheezing Cardiac: + chest pain, No edema, No palpitations Abdomen: + problem reported (mild ascites (post transfusion)), + see HPI Neuro: No balance problems, No memory loss, No numbness/tingling, No vertigo, No weakness Psych: No anxiety, No depression symptoms, No insomnia Heme: No abnormal bleeding/bruising, No night sweats Endo: No excessive thirst, No excessive urination Skin: No itch, No jaundice, No new/changing skin lesions, No rash Physical Exam Date Time Temp Pulse Resp B/P Pulse Ox O2 Delivery O2 Flow Rate FiO2 04/28/16 15:45 Room Air 04/28/16 15:38 36.6 67 20 110/68 99 Room Air 04/28/16 13:45 78 99 04/28/16 12:00 Room Air 04/28/16 11:31 36.7 66 16 104/56 99 Room Air 04/28/16 08:00 Room Air 04/28/16 07:32 36.7 65 18 101/62 99 Room Air 04/28/16 04:00 36.7 68 21 97/49 98 Room Air 04/28/16 04:00 Room Air 04/28/16 00:00 Room Air 04/27/16 23:08 36.6 74 20 108/63 99 Room Air 04/27/16 20:25 36.7 99 20 136/83 98 Room Air 04/27/16 19:55 97 18 143/91 99 04/27/16 18:55 103 18 151/86 99 Room Air 04/27/16 17:29 93 18 128/74 100 Room Air General Appearance: no apparent distress Eyes: normal inspection, EOMI Neck: supple, no adenopathy, thyroid normal, no JVD Respiratory/Chest: chest non-tender, lungs clear, normal breath sounds, no accessory muscle use Cardiovascular: regular rate, rhythm, no JVD, no murmur Abdomen: normal bowel sounds, non tender, soft, no organomegaly, + pertinent finding (mild ascites (post transfusion)) Extremities: normal inspection, no pedal edema, normal capillary refill Neurologic/Psych: alert, normal mood/affect, oriented x 3 Skin: normal color, no jaundice, warm/dry, no rash Laboratory Results Last 24 Hours Test 04/27/16 20:15 04/27/16 20:30 04/28/16 01:14 04/28/16 06:16 Bedside Glucose 186 mg/dl 195 mg/dl Total Creatine Kinase 85 U/L 67 U/L Creatine Kinase MB 2.9 ng/ml 2.8 ng/ml Creatine Kinase MB Ratio 3.4 4.2 Troponin I 0.016 ng/ml < 0.015 ng/ml Test 04/28/16 06:30 04/28/16 11:16 04/28/16 16:02 Urine Color DK YELLOW Urine Appearance CLEAR Urine pH 5.0 Urine Specific [place] 1.020 Urine Protein NEG Urine Glucose (UA) NEG Urine Ketones NEG Urine Occult Blood NEG Urine Nitrite NEG Urine Bilirubin NEG Urine Urobilinogen NEG Urine Leukocyte Esterase NEG Bedside Glucose 130 mg/dl 136 mg/dl Impression Patient is a 61 year old male with ETOH cirrhosis, abstaining, complicated by esophageal varices, ascites, prior hepatic encephalopathy. He presented for increasing ascites and underwent paracentesis. Plan 1. When chest pain issue is resolved (appreciate primary management), the patient is ready for DC from a GI perspective and would discharge on same OP meds/dosages as prior to admission. 2. Low salt diet reviewed. 3. Continue OP management by Dr. Culver.
[2016-04-28] MEDS ORDERED: HYDROmorphone INJ 1 MG/ML SYR IV STA (17:36)
--- NOTE | 2016-04-28 19:13 | Progress Note ---
Internal Med Progress Note Date of Service: Apr 28, 2016. Provider Documentation: SUBJECTIVE: pt was able to ambulate on the hallway earlier today no dizzy spell or lightheadedness, no SOB complains of ongoing sharp pain on left chest wall area , sharp , going to back asking if can have IV Dilaudid while in hospital the PO Dilaudid that he takes chronically at home is not working well enough to ease up the pain OBJECTIVE: Vital Signs-as noted below Exam: General-chronically ill appearing, no sign of distress Eyes-sclera non icteric Lungs-CTA , no wheeze or rales Heart-regular S1/S2 , reproducible chest wall tenderness on left Abdomen-soft, non tender significant reduction of ascites , ventral hernia Extremities-+ 1-2 bilat pitting edema Neuro-AAO x3, no focal deficit Lab data as noted below. 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 S/p therapeutic paracentesis in ER 04/27/16 with 10.6 liters removed Received albumin before and after paracentesis Continue Lasix, spironolactone, rifaximin, lactulose low sodium diet- GENERALIZED WEAKNESS symptom improved appreciate PT and OT evaluations stable to return back to home CHRONIC ANEMIA Hg is 10; stable from baseline ~ 8-10 CHRONIC THROMBOCYTOPENIA Plt count 70; stable from his baseline Due to ESLD Denies bleeding CHRONIC PAIN On chronic PO Dilaudid 4 mg q8h PRN Follows with [facility] pain management DM TYPE 2 Continue Lantus Insulin sliding scale coverage A1c was 11.6 on 04/03/16 CKD STAGE III Creat is stable Avoid nephrotoxins H/O SEIZURE DISORDER Continue Keppra HISTORY OF PE S/p IVC filter Not on anticoagulation due to thrombocytopenia/ bleeding risk PA DRUG MONITORING Shows Dilaudid 4 mg [address] Olguin filled 04/22/16; prior to that Dilaudid Rx 90 tabs in February from Poli Acosta MD in [place] DVT PROPHYLAXIS SCD's due to thrombocytopenia FULL CODE DISPOSITION possible discharge home tomorrow Follows with Dr. Munoz for primary care DVT PROPHYLAXIS [] DISPOSITION [] Vital Signs: Date Time Temp Pulse Resp B/P Pulse Ox O2 Delivery O2 Flow Rate FiO2 04/28/16 18:21 36.6 67 20 99 2.0 04/28/16 15:45 Room Air 04/28/16 15:38 36.6 67 20 110/68 99 Room Air 04/28/16 13:45 78 99 04/28/16 12:00 Room Air 04/28/16 11:31 36.7 66 16 104/56 99 Room Air 04/28/16 08:00 Room Air 04/28/16 07:32 36.7 65 18 101/62 99 Room Air 04/28/16 04:00 36.7 68 21 97/49 98 Room Air 04/28/16 04:00 Room Air 04/28/16 00:00 Room Air 04/27/16 23:08 36.6 74 20 108/63 99 Room Air 04/27/16 20:25 36.7 99 20 136/83 98 Room Air 04/27/16 19:55 97 18 143/91 99 Lab Results: Results Past 24 Hours Test 04/27/16 20:15 04/27/16 20:30 04/28/16 01:14 04/28/16 06:16 Range/Units Bedside Glucose 186 195 70-99 mg/dl Total Creatine Kinase 85 67 39-308 U/L Creatine Kinase MB 2.9 2.8 0.5-3.6 ng/ml Creatine Kinase MB Ratio 3.4 4.2 0-3.0 Troponin I 0.016 < 0.015 0-0.045 ng/ml Test 04/28/16 06:30 04/28/16 11:16 04/28/16 16:02 Range/Units Urine Color DK YELLOW Urine Appearance CLEAR CLEAR Urine pH 5.0 4.5-7.5 Urine Specific [place] 1.020 1.000-1.030 Urine Protein NEG NEG Urine Glucose (UA) NEG NEG Urine Ketones NEG NEG Urine Occult Blood NEG NEG Urine Nitrite NEG NEG Urine Bilirubin NEG NEG Urine Urobilinogen NEG NEG Urine Leukocyte Esterase NEG NEG Bedside Glucose 130 136 70-99 mg/dl
[2016-04-28] MEDS: INSULIN GLARGINE SOLOSTAR 100 UNITS/ML 3 ML PEN SC SCH (20:35)
[2016-04-28] MEDS: PYRIDOXINE HCL 50 MG TAB PO SCH (20:40)
[2016-04-29] MEDS: HYDROmorphone HCL 2 MG TAB PO PRN ×3 (04:36→20:47)
[2016-04-29] MEDS: LEVOTHYROXINE 75 MCG TAB PO SCH (06:15)
[2016-04-29 07:44] VITALS: BP 110/60; PULSE 63; TEMP 36.7; O2SAT 90
[2016-04-29] MEDS: PROPRANOLOL HCL 10 MG TAB PO SCH ×2 (08:09→20:48)
[2016-04-29] MEDS: MAGNESIUM OXIDE 400 MG TAB PO SCH ×2 (08:09→21:00)
[2016-04-29] MEDS: PREGABALIN 75 MG CAP PO SCH ×3 (08:09→20:47)
[2016-04-29] MEDS: RIFAXIMIN TAB 550 MG TAB PO SCH ×2 (08:09→20:49)
[2016-04-29] MEDS: ESCITALOPRAM OXALATE 10 MG TAB PO SCH (08:10)
[2016-04-29] MEDS: FERROUS SULFATE 325 MG TAB PO SCH ×2 (08:10→20:48)
[2016-04-29] MEDS: FUROSEMIDE 20 MG TAB PO SCH ×2 (08:10→16:29)
[2016-04-29] MEDS: PANTOprazole SOD 40 MG TAB PO SCH ×2 (08:10→20:49)
[2016-04-29] MEDS: SPIRONOLACTONE 100 MG TAB PO SCH (08:11)
[2016-04-29] MEDS: LACTULOSE SYRUP 20 GM/30 ML UDC PO SCH ×3 (08:11→20:47)
[2016-04-29] MEDS: LEVETIRACETAM 500 MG TAB PO SCH ×2 (08:11→21:00)
[2016-04-29] MEDS: INSULIN ASPART 100 UNITS/ML 3 ML PEN SC SCH ×4 (08:21→20:51)
[2016-04-29 08:54] VITALS: O2SAT 90
[2016-04-29 11:18] VITALS: BP 114/76; PULSE 66; TEMP 36.6; O2SAT 98
[2016-04-29] MEDS: TRIAMCINOLONE ACET 0.1% CR 15 GM TUBE EXT PRN (11:33)
--- NOTE | 2016-04-29 13:10 | DIAGNOSTIC IMAGING REPORT ---
SINGLE VIEW CHEST CLINICAL HISTORY: Dyspnea. FINDINGS: An AP, portable, upright chest radiograph is compared to study dated 04/21/2016 and correlated with chest CT dated 09/29/2011. The cardiomediastinal silhouette is unremarkable. Linear atelectasis versus scarring is noted at the left lung base. There is associated elevation of left hemidiaphragm. The lungs and pleural spaces are otherwise clear. No pneumothorax is seen. The skeletal structures are osteopenic. The bony thorax is grossly intact. Fusion hardware is partially imaged in the lower cervical spine. IMPRESSION: No acute cardiopulmonary abnormality and no significant change from 04/21/2016. Electronically signed by: Leonardo De La Fuente M.D. 04/29/2016 1:09 PM Dictated Date/Time: 04/29/2016 1:07 PM
[2016-04-29] MEDS ORDERED: OPTIRAY 320 IV PRN (13:15)
[2016-04-29] MEDS: LIDODERM (LIDOCAINE) PATCH 5% TD SCH (14:03)
--- NOTE | 2016-04-29 14:17 | DIAGNOSTIC IMAGING REPORT ---
CT ANGIOGRAM OF THE CHEST CLINICAL HISTORY: Atypical chest pain. COMPARISON STUDY: Chest x-ray dated 04/29/2016. Chest CT dated 09/29/2011. TECHNIQUE: Following the IV administration of 95 cc of Optiray 320, CT angiogram of the chest was performed from the upper abdomen to the thoracic inlet utilizing the pulmonary embolus protocol. Images are reviewed in the axial, sagittal, and coronal planes. 3-D MIPS images are created and assessed. IV contrast was administered without complication. CT DOSE: 241.19 mGy.cm FINDINGS: Thyroid: Atrophic. Thoracic aorta: The thoracic aorta is normal in caliber and demonstrates standard 3-vessel arch anatomy. No dissection is seen. Pulmonary vasculature: The pulmonary trunk is normal in caliber. There are no filling defects identified in main, lobar, or segmental pulmonary branches to suggest pulmonary embolus. Heart: The heart is enlarged and without pericardial effusion. There are scattered coronary artery calcifications. Lungs and pleural spaces: Linear scarring is again seen at the left lung base. No airspace consolidation or pleural effusion is identified. The trachea and central airways are clear. A 1.5 cm cyst is incidentally noted in the right lower lobe. Mediastinum: There is no mediastinal lymphadenopathy. Maria Isabel: Clear. Axillae: There is no axillary lymphadenopathy. Upper abdomen: The liver is cirrhotic in morphology and heterogeneous in attenuation. There is nodularity of the hepatic surface contour. Upper abdominal ascites is noted. There is a moderate hiatal hernia. Diffuse thickening of the distal esophageal wall is suspected. Esophageal and perigastric varices are observed. The spleen is enlarged, measuring over 15.5 cm in length. Gynecomastia is observed. Skeletal structures: The skeletal structures are osteopenic. Degenerative change is noted in the thoracic spine and shoulders. No lytic or blastic bony lesions are seen. IMPRESSION: 1. There is no evidence of pulmonary embolus in the main, lobar, or segmental pulmonary arteries. 2. There is no airspace consolidation or pleural effusion. 3. Cardiomegaly. 4. Cirrhotic liver morphology with evidence of portal hypertension including ascites, splenomegaly, esophageal varices, and perigastric varices. 5. Moderate hiatal hernia. Nonspecific esophageal wall thickening is suggested. Correlate clinically for evidence of esophagitis. Electronically signed by: Leonardo De La Fuente M.D. 04/29/2016 2:16 PM Dictated Date/Time: 04/29/2016 2:10 PM
[2016-04-29 14:43] VITALS: BP 100/62; PULSE 66; TEMP 36.5; O2SAT 96
[2016-04-29] MEDS ORDERED: HYDROmorphone INJ 1 MG/ML SYR IV STA (16:04)
[2016-04-29] MEDS ORDERED: ALUMINUM/MAGNESIUM/SIMETH (MAALOX MAX) 30 ML UDC PO PRN (16:15)
[2016-04-29 16:26] VITALS: BP 105/62; PULSE 70
[2016-04-29] MEDS: PYRIDOXINE HCL 50 MG TAB PO SCH (20:49)
[2016-04-29] MEDS: INSULIN GLARGINE SOLOSTAR 100 UNITS/ML 3 ML PEN SC SCH (20:50)
[2016-04-29 21:05] VITALS: O2SAT 99
[2016-04-30] VITALS (9 sets, daily range): BP systolic 92–111; BP diastolic 53–71; PULSE 60–71; TEMP 36.5–37; O2SAT 93–99
[2016-04-30] MEDS: HYDROmorphone HCL 2 MG TAB PO PRN ×2 (06:23→14:55)
[2016-04-30] MEDS: LEVOTHYROXINE 75 MCG TAB PO SCH (06:35)
[2016-04-30] MEDS: LIDODERM (LIDOCAINE) PATCH 5% TD SCH (07:53)
[2016-04-30] MEDS: FERROUS SULFATE 325 MG TAB PO SCH ×2 (07:54→21:27)
[2016-04-30] MEDS: PANTOprazole SOD 40 MG TAB PO SCH ×2 (07:54→21:27)
[2016-04-30] MEDS: ESCITALOPRAM OXALATE 10 MG TAB PO SCH (07:54)
[2016-04-30] MEDS: FUROSEMIDE 20 MG TAB PO SCH ×2 (07:54→17:47)
[2016-04-30] MEDS: LEVETIRACETAM 500 MG TAB PO SCH ×2 (07:55→21:27)
[2016-04-30] MEDS: PROPRANOLOL HCL 10 MG TAB PO SCH ×2 (07:55→21:27)
[2016-04-30] MEDS: SPIRONOLACTONE 100 MG TAB PO SCH (07:55)
[2016-04-30] MEDS: RIFAXIMIN TAB 550 MG TAB PO SCH ×2 (07:55→21:29)
[2016-04-30] MEDS: LACTULOSE SYRUP 20 GM/30 ML UDC PO SCH ×3 (07:56→21:28)
[2016-04-30] MEDS: MAGNESIUM OXIDE 400 MG TAB PO SCH ×2 (07:56→21:28)
[2016-04-30] MEDS: PREGABALIN 75 MG CAP PO SCH ×3 (07:56→21:27)
[2016-04-30] MEDS: INSULIN ASPART 100 UNITS/ML 3 ML PEN SC SCH ×4 (08:02→21:00)
--- NOTE | 2016-04-30 12:33 | Progress Note ---
Internal Med Progress Note Date of Service: Apr 29, 2016. Provider Documentation: late entry pt seen on 04/29/16 @ 12: 30 pm SUBJECTIVE: Complains of sharp chest pain on left side below his left nipple going to his back , hurts when he takes deep breath or tries to move this pain is different form all other chest pains that he experienced feels SOB as can not take deep breath due to chest pain OBJECTIVE: Vital Signs-as noted below Exam: General-chronically ill appearing, anxious , in distress for chest pain Eyes-sclera non icteric Lungs-CTA , no wheeze or rales Heart-regular S1/S2 , reproducible chest wall tenderness on left , very tender , no rash or erythema noted Abdomen-soft, non tender significant reduction of ascites , ventral hernia , active bowel sound Extremities-+ 1-2 bilat pitting edema Neuro-AAO x3, no focal deficit Lab data as noted below. ASSESSMENT & PLAN: ATYPICAL CHEST PAIN -non angina , no evidence of Acute coronary event has reproducible ant chest wall tenderness serial cardiac markers negative , EKG negative complains of worsening of chest wall pain ,today very pleuritic PO Dilaudid PRN not helping him no hypoxia remains in room air , tachycardia pt mentions prior hx of PE Stat CT chest with contrast ordered to R/O PE IV Dilaudid 1 mg X 1 for chest pain relief CT chest with contrast : 1. There is no evidence of pulmonary embolus in the main, lobar, or segmental pulmonary arteries. 2. There is no airspace consolidation or pleural effusion. 3. Cardiomegaly. 4. Cirrhotic liver morphology with evidence of portal hypertension including ascites, splenomegaly, esophageal varices, and perigastric varices. 5. Moderate hiatal hernia. Nonspecific esophageal wall thickening is suggested. Correlate clinically for evidence of esophagitis. 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 S/p therapeutic paracentesis in ER 04/27/16 with 10.6 liters removed Received albumin before and after paracentesis Continue Lasix, spironolactone, rifaximin, lactulose low sodium diet- appreciate GI input cont fluid restriction 2000 ml /day ( pt reports of feeling constantly thirsty / dehydrated on 1500 ml /day fluid restriction ) GENERALIZED WEAKNESS symptom improved appreciate PT and OT evaluations stable to return back to home CHRONIC ANEMIA Hg is 10; stable from baseline ~ 8-10 CHRONIC THROMBOCYTOPENIA Plt count 70; stable from his baseline Due to ESLD Denies bleeding avoid antiplatelets /anticoagulation CHRONIC PAIN On chronic PO Dilaudid 4 mg q8h PRN Follows with [facility] pain management DM TYPE 2 Continue Lantus Insulin sliding scale coverage A1c 11.6 on 04/03/16 CKD STAGE III Creat is stable Avoid nephrotoxins H/O SEIZURE DISORDER Continue Keppra HISTORY OF PE S/p IVC filter Not on anticoagulation due to thrombocytopenia/ bleeding risk PA DRUG MONITORING Shows Dilaudid 4 mg [address] Olguin filled 04/22/16; prior to that Dilaudid Rx 90 tabs in February from Poli Acosta MD in [place] DVT PROPHYLAXIS SCD's due to thrombocytopenia FULL CODE DISPOSITION Discharge home when medically stable Follows with Dr. Munoz for primary care Hospital follow up scheduled with Dr Munoz on 05/05/2016 2 1:50 PM at [facility] Internal Medicine [facility] Vital Signs: Date Time Temp Pulse Resp B/P Pulse Ox O2 Delivery O2 Flow Rate FiO2 04/30/16 08:06 36.6 64 16 111/71 97 04/30/16 08:00 Room Air 04/30/16 07:52 71 105/64 04/30/16 01:30 99 Room Air 04/29/16 21:05 99 Room Air 04/29/16 16:26 70 105/62 04/29/16 16:00 Room Air 04/29/16 14:43 36.5 66 17 100/62 96 Room Air Lab Results: Results Past 24 Hours Test 04/29/16 16:23 04/29/16 20:41 04/30/16 07:36 04/30/16 11:26 Range/Units Bedside Glucose 175 175 267 231 70-99 mg/dl Test 04/30/16 12:41 Range/Units
[2016-04-30] MEDS ORDERED: PHARMACY GLYCEMIC MGMT CONSULT PRN (12:45)
--- NOTE | 2016-04-30 12:48 | Discharge Instructions ---
Discharge Instructions Date of Service Apr 30, 2016. Admission Reason for Admission: Ascities, Chest Pain Discharge Discharge Diagnosis / Problem: CHEST PAIN /ATYPICAL FOR ACS /NO PULMONARY CAUSE FOUND/BETANCOURT CIRROHIS Discharge Goals Goal(s): Decrease discomfort, Increase independence, Improve disease control, Therapeutic intervention Activity Recommendations Activity Limitations: resume your previous activity Exercise/Sports Limitations: none Shower/Bathe: no limitations . Instructions / Follow-Up Instructions / Follow-Up HOSPITAL FOLLOW UP ON 05/05/2016 @ 1:[address] Chacha Munoz, Internal Medicine [facility] Current Hospital Diet Patient's current hospital diet: Diabetes Type 2 Diet, Low Sodium Diet (2gm Na) Discharge Diet Recommended Diet: Low Sodium Diet (2gm Na) Fluid Restriction: 2000 ml (8 cups) Pending Studies Studies pending at discharge: no Laboratory Results Hemoglobin A1c Test 04/03/16 05:54 Range/Units Estimated Average Glucose 286 mg/dl Hemoglobin A1c 11.6 H 4.5-5.6 % Medical Emergencies . Who to Call and When: Medical Emergencies: If at any time you feel your situation is an emergency, please call 911 immediately. . Non-Emergent Contact Non-Emergency issues call your: Primary Care Provider . . "Provider Documentation" section prepared by Annelise Mckenzie. VTE Core Measure Inpt VTE Proph given/why not?: John Townsend, SCD's [place] Drug Monitoring Program Search Results: patient reviewed within database Drug Monitoring Findings: Dilaudid 4 mg [address] Olguin filled 04/22/16; prior to that Dilaudid Rx 90 tabs in February from Poli Acosta MD in [place]
--- NOTE | 2016-04-30 13:46 | DIAGNOSTIC IMAGING REPORT ---
CT OF THE HEAD WITHOUT CONTRAST CLINICAL HISTORY: Dysarthria sudden onset. Evaluate for cerebrovascular accident. COMPARISON STUDY: Head CT March 13, 2016. CT DOSE: 537.48 mGy.cm TECHNIQUE: Helical axial images of the head were obtained without IV contrast. Automated exposure control was utilized for the study. FINDINGS: No acute intracranial hemorrhage, midline shift or mass effect is present. Ventricular system is stable. Basilar cisterns are patent. There are no extra-axial collections. There are no findings to suggest acute dural sinus thrombosis or acute territorial infarct. Visualized portions of the sinuses and mastoid air cells are clear. There are no calvarial abnormalities. IMPRESSION: No acute intracranial findings. Electronically signed by: Luisito Obregon M.D. 04/30/2016 1:44 PM Dictated Date/Time: 04/30/2016 1:42 PM
--- NOTE | 2016-04-30 14:50 | Pharmacy Progress Note ---
Glycemic Control Intl Consult Date of Service Apr 30, 2016. Scope Glycemic Pharmacist consulted by Dr Mckenzie on 04/30/16 for glycemic control and to write orders per [facility] inpatient glycemic control protocol Objective Weight (Kilograms): 77.100 Accuchecks BSG (last 24hrs): Test 04/29/16 16:23 04/29/16 20:41 04/30/16 07:36 04/30/16 11:26 Bedside Glucose 175 mg/dl (70-99) 175 mg/dl (70-99) 267 mg/dl (70-99) 231 mg/dl (70-99) HbA1c 04/03/16 Hgb A1c 11.6% Recent Pertinent Medications Outpatient Anti-diabetic Regimen: * reported Lantus 40 units hs, Novolog 18 units before meals plus sliding scale * A1c = 11.6 % 04/03/16 The patient is currently receiving: * Basal insulin: Lantus 32 units every hs * Correctional Insulin: Novolog Correction per scale ACHS Goal Range: Low 100 mg/dL - High 140 mg/dL Correction Factor: 45 mg/dL/unit * Prandial insulin: Per carb ratio of 1 unit per 16 grams CHO consumed * Oral Agents: none Risk Factors for Insulin Resistance: * Diet: type 2 diabetic low sodium,2000 ml fluid restriction, variable intake * End stage liver disease Assessment & Plan ASSESSMENT: * ADA & AACE recommend a goal blood sugar range 140-180 mg/dl for the majority of critically ill & non-critically ill patients. However, more stringent targets may be selected in individual cases. * 61 yo type 2 diabetic known to the glycemic service from previous admissions. He has a history of both low and high BSG's. This admission BSG's have been trending upward, especially am BSG's. Will increase hs Lantus, tighten Novolog correction and carb ratio (based on previous admissions),and increase goal range to decrease risk of hypoglycemia. We may need to increase insulin further but started with conservative doses to decrease risk of hypoglycemia. Will reassess in am. PLAN FOR INPATIENT GLYCEMIC CONTROL: * Increasing Lantus to 34 units SQ qhs * Changing correction factor to 15 mg/dl/unit * Changing carb ratio to 1 unit per 5 grams CHO consumed * Changing goal range to Low 120 mg/dL - High 160 mg/dL * Please note that the plan above was derived based on current level of insulin resistance and hospital stress. These recommendations are appropriate for inpatient admission only. Plan of care upon discharge will need to be reassessed to avoid potential outpatient hypo/hyperglycemia. Thank you.
[2016-04-30] MEDS: ONDANSETRON INJ 2 MG/ML 2 ML VIAL IV PRN (14:54)
--- NOTE | 2016-04-30 21:00 | Progress Note ---
Internal Med Progress Note Date of Service: Apr 30, 2016. Provider Documentation: SUBJECTIVE: pr reports of not able to talk /aphasic episode last night this Am -nodding head , unable to verbalize complain no dysphagia noted -finished all meals no problem in taking medications moving all limbs stat CT head with out contrast ordered -negative for CVA OBJECTIVE: Vital Signs-as noted below Exam: General-chronically ill appearing, Eyes-sclera non icteric Lungs-CTA , no wheeze or rales Heart-regular S1/S2 , reproducible chest wall tenderness on left , very tender , no rash or erythema noted Abdomen-soft, non tender significant reduction of ascites , ventral hernia , active bowel sound Extremities-+ 1-2 bilat pitting edema Neuro-AAO x3, no focal deficit Lab data as noted below. ASSESSMENT & PLAN: APHASIA /NOT ABLE TO TALK : transient episode no other neurological symptom -no weakness or paresthesia , no dysphagia,no facial droop _CT head negative for CVA -symptom resolved cont to monitor no Aspirin ordered -due to chronic thrombocytopenia ATYPICAL CHEST PAIN -non angina , no evidence of Acute coronary event has reproducible ant chest wall tenderness serial cardiac markers negative , EKG negative cont PO Dilaudid as per home regimen CT chest with contrast : 1. There is no evidence of pulmonary embolus in the main, lobar, or segmental pulmonary arteries. 2. There is no airspace consolidation or pleural effusion. 3. Cardiomegaly. 4. Cirrhotic liver morphology with evidence of portal hypertension including ascites, splenomegaly, esophageal varices, and perigastric varices. 5. Moderate hiatal hernia. Nonspecific esophageal wall thickening is suggested. Correlate clinically for evidence of esophagitis. 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 S/p therapeutic paracentesis in ER 04/27/16 with 10.6 liters removed Received albumin before and after paracentesis Continue Lasix, spironolactone, rifaximin, lactulose low sodium diet- appreciate GI input cont fluid restriction 2000 ml /day ( pt reports of feeling constantly thirsty / dehydrated on 1500 ml /day fluid restriction ) GENERALIZED WEAKNESS symptom improved appreciate PT and OT evaluations stable to return back to home CHRONIC ANEMIA Hg is 10; stable from baseline ~ 8-10 CHRONIC THROMBOCYTOPENIA Plt count 70; stable from his baseline Due to ESLD Denies bleeding avoid antiplatelets /anticoagulation CHRONIC PAIN On chronic PO Dilaudid 4 mg q8h PRN Follows with [facility] pain management DM TYPE 2 Continue Lantus Insulin sliding scale coverage A1c 11.6 on 04/03/16-very poorly controlled Pharmacy consulted for glycemic control CKD STAGE III Creat is stable Avoid nephrotoxins H/O SEIZURE DISORDER Continue Keppra HISTORY OF PE S/p IVC filter Not on anticoagulation due to thrombocytopenia/ bleeding risk CT chest shows no evidence of PE PA DRUG MONITORING Shows Dilaudid 4 mg [address] Olguin filled 04/22/16; prior to that Dilaudid Rx 90 tabs in February from Poli Acosta MD in [place] DVT PROPHYLAXIS SCD's due to thrombocytopenia FULL CODE DISPOSITION Discharge home when medically stable Follows with Dr. Munoz for primary care Hospital follow up scheduled with Dr Munoz on 05/05/2016 2 1:50 PM at [facility] Internal Medicine [facility] Vital Signs: Date Time Temp Pulse Resp B/P Pulse Ox O2 Delivery O2 Flow Rate FiO2 05/01/16 16:00 Room Air 05/01/16 15:07 36.7 62 18 93/59 96 Room Air 05/01/16 12:25 84 120/84 05/01/16 08:10 91 Room Air 05/01/16 08:00 Room Air 05/01/16 07:46 36.5 60 17 100/62 91 Room Air 05/01/16 01:09 99 Room Air 04/30/16 23:46 36.7 65 18 100/62 93 Room Air 04/30/16 22:10 99 Room Air Lab Results: Results Past 24 Hours Test 04/30/16 19:33 05/01/16 01:46 05/01/16 07:30 05/01/16 11:22 Range/Units Bedside Glucose 114 142 200 207 70-99 mg/dl Test 05/01/16 16:43 Range/Units Bedside Glucose 190 70-99 mg/dl
[2016-04-30] MEDS: PYRIDOXINE HCL 50 MG TAB PO SCH (21:28)
[2016-04-30] MEDS: RANITIDINE HCL 150 MG TAB PO SCH (21:29)
[2016-04-30] MEDS: INSULIN GLARGINE SOLOSTAR 100 UNITS/ML 3 ML PEN SC SCH (21:30)
[2016-05-01 01:09] VITALS: O2SAT 99
[2016-05-01] MEDS: HYDROmorphone HCL 2 MG TAB PO PRN ×3 (01:50→18:00)
[2016-05-01] MEDS ORDERED: INSULIN ASPART 100 UNITS/ML 3 ML PEN SC SCH (02:00)
[2016-05-01] MEDS: LEVOTHYROXINE 75 MCG TAB PO SCH (06:40)
[2016-05-01 07:46] VITALS: BP 100/62; PULSE 60; TEMP 36.5; O2SAT 91
[2016-05-01 08:10] VITALS: O2SAT 91
[2016-05-01] MEDS: INSULIN ASPART 100 UNITS/ML 3 ML PEN SC SCH ×4 (08:33→20:35)
[2016-05-01] MEDS: SPIRONOLACTONE 100 MG TAB PO SCH (08:45)
[2016-05-01] MEDS: LACTULOSE SYRUP 20 GM/30 ML UDC PO SCH ×3 (08:46→20:24)
[2016-05-01] MEDS: FERROUS SULFATE 325 MG TAB PO SCH ×2 (08:47→20:24)
[2016-05-01] MEDS: PROPRANOLOL HCL 10 MG TAB PO SCH ×3 (08:48→20:26)
[2016-05-01] MEDS: LEVETIRACETAM 500 MG TAB PO SCH ×2 (08:48→20:25)
[2016-05-01] MEDS: PREGABALIN 75 MG CAP PO SCH ×3 (08:49→20:24)
[2016-05-01] MEDS: FUROSEMIDE 20 MG TAB PO SCH ×2 (08:49→17:56)
[2016-05-01] MEDS: ESCITALOPRAM OXALATE 10 MG TAB PO SCH (08:49)
[2016-05-01] MEDS: PANTOprazole SOD 40 MG TAB PO SCH ×2 (08:50→20:27)
[2016-05-01] MEDS: MAGNESIUM OXIDE 400 MG TAB PO SCH ×2 (08:50→20:26)
[2016-05-01] MEDS: RIFAXIMIN TAB 550 MG TAB PO SCH ×2 (08:51→20:27)
[2016-05-01] MEDS: RANITIDINE HCL 150 MG TAB PO SCH ×2 (08:52→20:28)
[2016-05-01] MEDS: LIDODERM (LIDOCAINE) PATCH 5% TD SCH ×2 (09:00→09:09)
[2016-05-01 12:25] VITALS: BP 120/84; PULSE 84
[2016-05-01] MEDS: ONDANSETRON INJ 2 MG/ML 2 ML VIAL IV PRN ×2 (12:25→17:59)
[2016-05-01 15:07] VITALS: BP 93/59; PULSE 62; TEMP 36.7; O2SAT 96
--- NOTE | 2016-05-01 18:55 | Progress Note ---
Internal Med Progress Note Date of Service: May 01, 2016. Provider Documentation: SUBJECTIVE: awake and alert conversing without any difficulty no weakness or paresthesia complains of headache , chest pain , back pain OBJECTIVE: Vital Signs-as noted below Exam: General-chronically ill appearing, Eyes-sclera non icteric Lungs-CTA , no wheeze or rales Heart-regular S1/S2 , reproducible chest wall tenderness on left , very tender , no rash or erythema noted Abdomen-soft, non tender significant reduction of ascites , ventral hernia , active bowel sound Extremities-+ 1-2 bilat pitting edema Neuro-AAO x3, no focal deficit . conversing , no dysarthria Lab data as noted below. ASSESSMENT & PLAN: APHASIA /NOT ABLE TO TALK : symptom totally resolved had transient episode yesterday no other neurological symptom -no weakness or paresthesia , no dysphagia,no facial droop no Aspirin ordered -due to chronic thrombocytopenia _CT head negative for CVA -symptom resolved -pt is counselled , feels relieved that ATYPICAL CHEST PAIN -non angina , no evidence of Acute coronary event has reproducible ant chest wall tenderness serial cardiac markers negative , EKG negative cont PO Dilaudid as per home regimen CT chest with contrast : 1. There is no evidence of pulmonary embolus in the main, lobar, or segmental pulmonary arteries. 2. There is no airspace consolidation or pleural effusion. 3. Cardiomegaly. 4. Cirrhotic liver morphology with evidence of portal hypertension including ascites, splenomegaly, esophageal varices, and perigastric varices. 5. Moderate hiatal hernia. Nonspecific esophageal wall thickening is suggested. Correlate clinically for evidence of esophagitis. 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 S/p therapeutic paracentesis in ER 04/27/16 with 10.6 liters removed Received albumin before and after paracentesis Continue Lasix, spironolactone, rifaximin, lactulose low sodium diet- appreciate GI input cont fluid restriction 2000 ml /day ( pt reports of feeling constantly thirsty / dehydrated on 1500 ml /day fluid restriction ) GENERALIZED WEAKNESS symptom improved appreciate PT and OT evaluations stable to return back to home CHRONIC ANEMIA Hg is 10; stable from baseline ~ 8-10 CHRONIC THROMBOCYTOPENIA Plt count 70; stable from his baseline Due to ESLD Denies bleeding avoid antiplatelets /anticoagulation CHRONIC PAIN On chronic PO Dilaudid 4 mg q8h PRN Follows with R[facility] pain management DM TYPE 2 Continue Lantus Insulin sliding scale coverage A1c 11.6 on 04/03/16-very poorly controlled Pharmacy consulted for glycemic control CKD STAGE III Creat is stable Avoid nephrotoxins H/O SEIZURE DISORDER Continue Keppra HISTORY OF PE S/p IVC filter Not on anticoagulation due to thrombocytopenia/ bleeding risk CT chest shows no evidence of PE PA DRUG MONITORING Shows Dilaudid 4 mg [address] Olguin filled 04/22/16; prior to that Dilaudid Rx 90 tabs in February from Poli Acosta MD in [place] DVT PROPHYLAXIS SCD's due to thrombocytopenia FULL CODE DISPOSITION Discharge home Follows with Dr. Munoz for primary care Hospital follow up scheduled with Dr Munoz on 05/05/2016 2 1:50 PM at [facility] Internal Medicine [facility] Vital Signs: Date Time Temp Pulse Resp B/P Pulse Ox O2 Delivery O2 Flow Rate FiO2 05/02/16 07:28 36.7 58 18 105/63 97 Room Air 05/02/16 00:02 36.8 66 20 104/66 95 Room Air 05/02/16 00:00 Room Air 05/01/16 20:00 Room Air 05/01/16 16:00 Room Air 05/01/16 15:07 36.7 62 18 93/59 96 Room Air 05/01/16 12:25 84 120/84 05/01/16 08:10 91 Room Air 05/01/16 08:00 Room Air 05/01/16 07:46 36.5 60 17 100/62 91 Room Air Lab Results: Results Past 24 Hours Test 05/01/16 11:22 05/01/16 16:43 05/01/16 20:05 Range/Units Bedside Glucose 207 190 244 70-99 mg/dl
[2016-05-01] MEDS: PYRIDOXINE HCL 50 MG TAB PO SCH (20:27)
[2016-05-01] MEDS: INSULIN GLARGINE SOLOSTAR 100 UNITS/ML 3 ML PEN SC SCH (20:34)
[2016-05-01] MEDS ORDERED: LIDODERM (LIDOCAINE) PATCH 5% TD SCH (21:00)
[2016-05-02 00:02] VITALS: BP 104/66; PULSE 66; TEMP 36.8; O2SAT 95
[2016-05-02] MEDS: HYDROmorphone HCL 2 MG TAB PO PRN ×2 (00:32→08:56)
[2016-05-02] MEDS: ONDANSETRON INJ 2 MG/ML 2 ML VIAL IV PRN (03:34)
[2016-05-02] MEDS: LEVOTHYROXINE 75 MCG TAB PO SCH (06:23)
[2016-05-02 07:28] VITALS: BP 105/63; PULSE 58; TEMP 36.7; O2SAT 97
[2016-05-02] MEDS: RANITIDINE HCL 150 MG TAB PO SCH (08:47)
[2016-05-02] MEDS: FERROUS SULFATE 325 MG TAB PO SCH (08:47)
[2016-05-02] MEDS: ESCITALOPRAM OXALATE 10 MG TAB PO SCH (08:48)
[2016-05-02] MEDS: SPIRONOLACTONE 100 MG TAB PO SCH (08:48)
[2016-05-02] MEDS: PROPRANOLOL HCL 10 MG TAB PO SCH (08:48)
[2016-05-02] MEDS: LACTULOSE SYRUP 20 GM/30 ML UDC PO SCH ×2 (08:48→15:40)
[2016-05-02] MEDS: RIFAXIMIN TAB 550 MG TAB PO SCH (08:48)
[2016-05-02] MEDS: PANTOprazole SOD 40 MG TAB PO SCH (08:48)
[2016-05-02] MEDS: PREGABALIN 75 MG CAP PO SCH ×2 (08:49→15:40)
[2016-05-02] MEDS: MAGNESIUM OXIDE 400 MG TAB PO SCH (08:49)
[2016-05-02] MEDS: FUROSEMIDE 20 MG TAB PO SCH (08:49)
[2016-05-02] MEDS: LEVETIRACETAM 500 MG TAB PO SCH (08:49)
[2016-05-02] MEDS: INSULIN ASPART 100 UNITS/ML 3 ML PEN SC SCH ×2 (08:55→12:06)
[2016-05-02 11:55] VITALS: BP 105/63; PULSE 58; TEMP 36.7; O2SAT 97
--- NOTE | 2016-05-02 12:04 | Pharmacy Progress Note ---
Glycemic Control: Progress Nt Date of Service May 02, 2016. Scope Glycemic Pharmacist consulted by Dr Mckenzie on 04/30/16 for glycemic control and to write orders per [facility] inpatient glycemic control protocol. Objective Accuchecks BSG (last 24hrs): Test 05/01/16 16:43 05/01/16 20:05 05/02/16 07:39 05/02/16 11:29 Bedside Glucose 190 mg/dl (70-99) 244 mg/dl (70-99) 177 mg/dl (70-99) 173 mg/dl (70-99) HbA1c: Item Value Date Time Hemoglobin A1c 11.6 % H 04/03/16 0554 Recent Pertinent Medications Outpatient Anti-diabetic Regimen: * reported Lantus 40 units hs, Novolog 18 units before meals plus sliding scale The patient is currently receiving: * Basal insulin: Lantus 34 units every 24 hours given at bedtime * Correctional Insulin: Novolog Correction per scale ACHS Goal Range: Low 120 mg/dL - High 160 mg/dL Correction Factor: 12 mg/dL/unit * Prandial insulin: Per carb ratio of 1 unit per 4 grams CHO consumed Assessment & Plan ASSESSMENT: * 61yo T2DM male well known to pharmacy per previous admissions/glycemic consults * Patient is currently receiving ~ 67 units of insulin per day which is consistent with previous admissions * 34 units of basal insulin * 33 units of prandial/correctional insulin * BSGs ranging 173 - 204 over the past 24hrs. Consider this near-adequate glycemic control for this brittle diabetic * AM Fasting BSG = 177mg/dl which is just slightly above goal range. Outpatient dosing is 40 units at bedtime (currently ordered 34units) therefore will increase basal insulin dosing slightly * Post-prandial BSGs are in range --> no changes needed to CF/CR PLAN FOR INPATIENT GLYCEMIC CONTROL: * Increase basal insulin with Lantus to 36 units SQ HS ( was 34 units) * Continue NovoLog per scale ACHS or Q6hrs while NPO * Goal Range: Low 120 mg/dL - High 160 mg/dL * Correction Factor: 12 mg/dL/unit * Nutritional / Prandial insulin per carb ratio of 1 unit per 4 grams CHO consumed * Please note that the plan above was derived based on current level of insulin resistance and hospital stress. These recommendations are appropriate for inpatient admission only. Plan of care upon discharge will need to be reassessed to avoid potential outpatient hypo/hyperglycemia. Thank you.
--- NOTE | 2016-05-02 13:06 | Progress Note ---
Subjective Date of Service: May 02, 2016. Subjective Pt evaluation today including: conversation w/ patient, physical exam, lab review, review of studies, review of inpatient medication list Saw/examined the patient in room 254 He continues to c/o chronic pain No other issues to note abdomen distended Problem List Medical Problems: (1) Abdominal pain Status: Acute (2) Abdominal pain Status: Acute (3) Abdominal pain Status: Acute (4) Acute hyperglycemia Status: Acute (5) Ambulatory dysfunction Status: Acute (6) Ambulatory dysfunction Status: Acute (7) Anasarca Status: Acute (8) Anemia Status: Acute (9) Anemia Status: Acute (10) Anemia Status: Acute (11) Ascites Status: Acute (12) Ascites Status: Acute (13) Ascites Status: Acute (14) Ascites Status: Acute (15) Ascites Status: Acute (16) Chest pain Status: Acute (17) Chronic liver failure Status: Acute (18) Chronic low back pain Status: Acute (19) Cirrhosis Status: Acute (20) Cirrhosis of liver Status: Acute (21) Contusion of left foot Status: Acute (22) Diarrhea Status: Acute (23) Dyspnea Status: Acute (24) Generalized weakness Status: Acute (25) HHNC (hyperglycemic hyperosmolar nonketotic coma) Status: Acute (26) Hyperglycemia Status: Acute (27) Hyperglycemia Status: Acute (28) Hyperglycemia Status: Acute (29) Hypoglycemia Status: Acute (30) Hypoglycemia Status: Acute (31) Muscle weakness Status: Acute (32) Nausea, vomiting, and diarrhea Status: Acute (33) Thrombocytopenia Status: Acute (34) Weakness Status: Acute Review of Systems Respiratory: No cough, No shortness of breath, No sputum Cardiac: + chest pain Abdomen: + pain, No diarrhea, No nausea, No vomiting Musculoskeletal: + joint pain (abdomen, low back, liver/hernia) Heme: No abnormal bleeding/bruising Medications Current Inpatient Medications Medications (Trade) Dose Ordered Sig/Ryan Route Start Time Stop Time Status Last Admin Dose Admin Miscellaneous (Iv Fluids Completed) 1 ea PRN PRN N/A 04/27/16 20:00 04/27/17 19:59 Ondansetron HCl (Zofran Inj) 4 mg Q6H PRN IV 04/27/16 20:00 05/27/16 19:59 05/02/16 03:34 4 MG Insulin Aspart (novoLOG ASPART) SLIDING SCALE If C... ACHS SC 04/27/16 21:00 05/27/16 20:59 05/02/16 12:06 14 UNITS Glucose (Glucose 40% Gel) 15-30 GRAMS 15 GRAMS... UD PRN PO 04/27/16 20:00 05/27/16 19:59 Glucose (Glucose Chew Tab) 4-8 Tablets 4 Tabl... UD PRN PO 04/27/16 20:00 05/27/16 19:59 Dextrose (Dextrose 50% 50ML Syringe) 25-50ML OF 50% DW IV FOR... UD PRN IV 04/27/16 20:00 05/27/16 19:59 Glucagon (Glucagon Inj) 1 mg UD PRN SQ 04/27/16 20:00 05/27/16 19:59 Diphenhydramine HCl (Benadryl Cap) 25 mg BID PRN PO 04/27/16 20:15 05/27/16 20:14 05/02/16 03:36 25 MG Escitalopram Oxalate (Lexapro Tab) 10 mg DAILY PO 04/28/16 09:00 05/28/16 08:59 05/02/16 08:48 10 MG Furosemide (Lasix Tab) 20 mg BID17 PO 04/27/16 21:00 05/27/16 20:59 05/02/16 08:49 20 MG Lactulose (Chronulac Syrup) 20 gm TID PO 04/27/16 21:00 05/27/16 20:59 05/02/16 08:48 20 GM Levetiracetam (Keppra Tab) 500 mg AMHS PO 04/27/16 21:00 05/27/16 20:59 05/02/16 08:49 500 MG Levothyroxine Sodium (Synthroid Tab) 75 mcg DAILYBB PO 04/28/16 06:00 05/28/16 05:59 05/02/16 06:23 75 MCG Magnesium Oxide (Mag-Ox Tab) 400 mg BID PO 04/27/16 21:00 05/27/16 20:59 05/02/16 08:49 400 MG Ondansetron HCl (Zofran Odt) 4 mg Q6H PRN SL 04/27/16 20:15 05/27/16 20:14 04/30/16 21:38 4 MG Pantoprazole Sodium (Protonix Tab) 40 mg BID PO 04/27/16 21:00 05/27/16 20:59 05/02/16 08:48 40 MG Pregabalin (Lyrica Cap) 75 mg TID PO 04/27/16 21:00 05/27/16 20:59 05/02/16 08:49 75 MG Propranolol HCl (Inderal Tab) 10 mg BID PO 04/27/16 21:00 05/27/16 20:59 05/02/16 08:48 10 MG Rifaximin (Xifaxan Tab) 550 mg AMHS PO 04/27/16 21:00 05/27/16 20:59 05/02/16 08:48 550 MG Spironolactone (Aldactone Tab) 100 mg DAILY PO 04/28/16 09:00 05/28/16 08:59 05/02/16 08:48 100 MG Triamcinolone Acetonide (Kenalog 0.1% Cream) 1 appln BID PRN EXT 04/27/16 20:15 05/27/16 20:14 04/29/16 11:33 1 APPLN Ferrous Sulfate (Feosol Tab) 325 mg BID PO 04/27/16 21:00 05/27/16 20:59 05/02/16 08:47 325 MG Pyridoxine HCl (Vitamin B-6 Tab) 25 mg HS PO 04/27/16 21:00 05/27/16 20:59 05/01/16 20:27 25 MG Hydromorphone HCl (Dilaudid Tab) 4 mg Q6H PRN PO 04/28/16 04:00 05/12/16 03:59 05/02/16 08:56 4 MG Ioversol (Optiray 320) 111 ml UD PRN IV 04/29/16 13:15 05/03/16 13:14 Al Hydrox/Mg Hydrox/Simethicone (Maalox Max Susp) 15 ml Q6H PRN PO 04/29/16 16:15 05/29/16 16:14 04/29/16 16:27 15 ML Miscellaneous Information (Consult Glycemic Management Pharmacy) 1 ea UD PRN N/A 04/30/16 12:45 05/30/16 12:44 Ranitidine HCl (zANTac TAB) 150 mg BID PO 04/30/16 21:00 05/30/16 20:59 05/02/16 08:47 150 MG Lidocaine (Lidoderm Patch 5%) 1 patch HS TD 05/01/16 21:00 05/31/16 20:59 05/01/16 20:29 1 PATCH Miscellaneous (Remove Lidoderm Patch) 1 ea DAILY@0900 N/A 05/02/16 09:00 06/01/16 08:59 05/02/16 08:47 1 EA Insulin Glargine (Lantus Solostar Pen) 36 unit HS SC 05/02/16 21:00 06/01/16 20:59 Objective Vital Signs Date Time Temp Pulse Resp B/P Pulse Ox O2 Delivery O2 Flow Rate FiO2 05/02/16 11:55 36.7 58 18 97 Room Air 05/02/16 08:00 Room Air 05/02/16 07:28 36.7 58 18 105/63 97 Room Air 05/02/16 00:02 36.8 66 20 104/66 95 Room Air 05/02/16 00:00 Room Air 05/01/16 20:00 Room Air 05/01/16 16:00 Room Air 05/01/16 15:07 36.7 62 18 93/59 96 Room Air Physical Exam General Appearance: no apparent distress Respiratory/Chest: no respiratory distress, no accessory muscle use, + pertinent finding (chest wall tenderness to palpation) Abdomen: normal bowel sounds, + distended, + tenderness Extremities: normal inspection, no pedal edema Laboratory Results Last 24 Hours Test 05/01/16 16:43 05/01/16 20:05 05/02/16 07:39 05/02/16 11:29 Bedside Glucose 190 mg/dl 244 mg/dl 177 mg/dl 173 mg/dl Assessment and Plan This is a 61 year old male with PMH of BETANCOURT/end stage liver disease, liver cirrhosis, recurrent ascites, thrombocytopenia, esophageal varices, chronic pain and long-term narcotic use, hx. of PE s/p IVC filter - presents with weakness/abdominal pain Aphasia - resolved patient had episode of aphasia during this admission Head CT was performed and negative no neurological deficit was noted at that time He was communicating by writing symptoms have resolved Atypical Chest Pain Reproducible chest wall tenderness no evidence of ACS Chest CTA performed and negative for PE continue home medications continue PPI secondary to GERD Recurrent Ascites End Stage Liver Disease secondary to BETANCOURT s/p therapeutic paracentesis on 04/27 - 10.6L removed repeat paracentesis q10-14 days - should get one on 05/08 continue home medications which include Lasix/Aldactone continue Rifaximin and Lactulose Low Na diet and Fluid restriction in place Chronic Anemia stable Chronic Thrombocytopenia Avoid ASA, heparin when possible Chronic Pain and Long-term Narcotic Use continue home pain medications should f/u with outpatient pain management DM2 Continue Lantus Insulin sliding scale coverage A1c 11.6 on 04/03/16-very poorly controlled Pharmacy consulted for glycemic control CKD stage 3 Creat is stable Avoid nephrotoxins Seizure Disorder Continue Keppra Hx. of PE S/p IVC filter Not on anticoagulation due to thrombocytopenia/ bleeding risk CT chest shows no evidence of PE PA DRUG MONITORING Shows Dilaudid 4 mg [address] Olguin filled 04/22/16; prior to that Dilaudid Rx 90 tabs in February from Poli Acosta MD in [place] DVT ppx SCD's due to thrombocytopenia FULL CODE DISPOSITION Discharge home Follows with Dr. Munoz for primary care Hospital follow up scheduled with Dr Munoz on 05/05/2016 2 1:50 PM at [facility] Internal Medicine [facility] Discharge planning: home
--- NOTE | 2016-05-02 13:09 | Discharge Summary ---
Discharge Summary Date of Service May 02, 2016. Discharge Summary Admission Date: Apr 27, 2016 at 19:03 Discharge Date: May 02, 2016 Discharge Disposition: Home Principal Diagnosis: End Stage Liver Disease/BETANCOURT Recurrent Ascites Medication Reconciliation Continued Medications: Diphenhydramine HCl (Diphenhydramine HCl) 25 Mg Cap 25 MG PO BID PRN for itching/rash for 7 Days, #14 CAP Escitalopram (Lexapro) 10 Mg Tab 10 MG PO DAILY, TAB Ferrous Sulfate (Kp Ferrous Sulfate) 325 Mg Tab 1 TAB PO BID, TAB Furosemide (Lasix) 20 Mg Tab 20 MG PO BID, TAB Hydromorphone Hcl (Dilaudid) 2 Mg Tab 4 MG PO Q8 PRN for Pain for 3 Days, #10 TAB Insulin Aspart (Novolog Penfill) 100 Unit/Ml Inj SQ TIDM via SSI Insulin Glargine (Lantus) 100 Unit/Ml Inj 32 UNITS SC HS, VIAL Lactulose (Chronulac) 10 Gm/15 Ml Syrp 20 GM PO TID Levetiractam (Levetiracetam) 500 Mg Tab 500 MG PO AMHS Levothyroxine Sodium (Synthroid) 75 Mcg Tab 75 MCG PO DAILY, TAB Magnesium Oxide (Mag-Ox) 400 Mg Tab 400 MG PO BID Ondasetron Odt (Zofran Odt) 4 Mg Tab 4 MG SL Q6H PRN for Nausea or Vomiting, TAB Pantoprazole (Protonix) 40 Mg Tab 40 MG PO BID, TAB Pregabalin (Lyrica) 75 Mg Cap 75 MG PO TID, CAP Propranolol (Inderal) 10 Mg Tab 10 MG PO BID, TAB Pyridoxine Hcl (Vitamin B-6) 25 Mg Tab 25 MG PO HS Rifaximin (Xifaxan) 550 Mg Tab 550 MG PO AMHS ONE AT BREAKFAST AND ONE AT SUPPER. Spironolactone (Aldactone) 100 Mg Tab 1 TAB PO DAILY for 30 Days, #30 TAB 11 Refills Triamcinolone Acet (Aristocort 0.1%) 90 Appln/30 Gm Cr 1 APPL EXT BID PRN for dermatitis Admission Information HPI (per Admitting provider): This is a 61 y/o male with PMH of BETANCOURT cirrhosis with recurrent ascites, thrombocytopenia, DM type 2, hyperlipidemia, chronic pain, h/o PE s/p IVC filter , and other problems listed below who presents to the ED for ascites. Patient was recently hospitalized at [facility] April 09- for generalized weakness and ascites s/p US guided paracentesis 04/10 with approx 6 liters fluid removed. He was d/c to [facility] then to home w/ services. He was feeling better until yesterday he developed increasing abdominal girth, diffuse abdominal discomfort , swelling of the upper and lower extremities, and mild shortness of breath. He notes 15 lb weight gain in 3 days. Admits to adding sea salt to food. No missed diuretics. He underwent paracentesis today with 10.6 liters removed. Abdominal symptoms and SOB are resolved. Tolerated a sandwich in ER. Still has peripheral edema. Since yesterday afternoon has also had constant left sided chest pain which she describes as "jabbing knife" sensation below the left nipple. It is worse if he sits upright. Has not been exerting himself for past 2 days due to increased generalized weakness. He states he had this pain before but it was less severe and would resolve 1-2 hours after paracentesis. He states prior CP was rated 5-6/10 but is currently 7-8/10 which is concerning to him. He had cold sweats overnight but did not take his temp. He takes narcotics prescribed by pain management for chronic back pain. Denies cough, vomiting, diarrhea, abnormal bleeding, jaundice, confusion. No hx of heart disease. He reports normal stress test 2 years ago. Echo 05/2015 showed normal EF and no valvular disease. Physical Exam (per Admitting): General Appearance: WD/WN, no apparent distress Head: normocephalic, atraumatic Eyes: normal inspection, PERRL, EOMI ENT: hearing grossly normal, pharynx normal Neck: supple, trachea midline Respiratory/Chest: lungs clear, normal breath sounds, no respiratory distress, + pertinent finding (+ reproducible left chest wall tenderness) Cardiovascular: regular rate, rhythm, no murmur Abdomen/GI: normal bowel sounds, non tender, soft, + pertinent finding ( soft nondistended s/p therapeutic paracentesis) Extremities/Musculoskelatal: no calf tenderness, + pertinent finding (1+ ankle edema bilaterally) Neurologic/Psych: no motor/sensory deficits, alert, normal mood/affect, oriented x 3 Skin: normal color, warm/dry, + pertinent finding (scattered excoriations on abdomen and lower extremities. few healing superficial abrasions on his feet. no erythema or drainage. ) Hospital Course This is a 61 year old male with PMH of BETANCOURT/end stage liver disease, liver cirrhosis, recurrent ascites, thrombocytopenia, esophageal varices, chronic pain and long-term narcotic use, hx. of PE s/p IVC filter - presents with weakness/abdominal pain Aphasia - resolved patient had episode of aphasia during this admission Head CT was performed and negative no neurological deficit was noted at that time He was communicating by writing symptoms have resolved Atypical Chest Pain Reproducible chest wall tenderness no evidence of ACS Chest CTA performed and negative for PE continue home medications continue PPI secondary to GERD Recurrent Ascites End Stage Liver Disease secondary to BETANCOURT s/p therapeutic paracentesis on 04/27 - 10.6L removed repeat paracentesis q10-14 days - should get one on 05/08 continue home medications which include Lasix/Aldactone continue Rifaximin and Lactulose Low Na diet and Fluid restriction in place Chronic Anemia stable Chronic Thrombocytopenia Avoid ASA, heparin when possible Chronic Pain and Long-term Narcotic Use continue home pain medications should f/u with outpatient pain management DM2 Continue Lantus Insulin sliding scale coverage A1c 11.6 on 04/03/16-very poorly controlled Pharmacy consulted for glycemic control CKD stage 3 Creat is stable Avoid nephrotoxins Seizure Disorder Continue Keppra Hx. of PE S/p IVC filter Not on anticoagulation due to thrombocytopenia/ bleeding risk CT chest shows no evidence of PE PA DRUG MONITORING Shows Dilaudid 4 mg [address] Olguin filled 04/22/16; prior to that Dilaudid Rx 90 tabs in February from Poli Acosta MD in [place] DVT ppx SCD's due to thrombocytopenia FULL CODE DISPOSITION Discharge home Follows with Dr. Munoz for primary care Hospital follow up scheduled with Dr Munoz on 05/05/2016 2 1:50 PM at [facility] Internal Medicine [facility] Discharge planning: home Total time spent on discharge = 48 minutes This includes examination of the patient, discharge planning, medication reconciliation, and communication with other providers. Discharge Instructions Please follow-up with Dr. Munoz on May 05 @ 1:50PM
[2016-05-02] MEDS ORDERED: INSULIN GLARGINE SOLOSTAR 100 UNITS/ML 3 ML PEN SC SCH (21:00)
[2016-05-23] MEDS ORDERED: HYDR4TAB78 PO (09:03)
[2016-07-01] MEDS ORDERED: MAGN400T5 PO (01:36)
[2016-07-01] MEDS ORDERED: DIPH50TA10 PO (02:00)
[2016-07-01] MEDS ORDERED: TRMCR130WC EXT (03:58)
[2016-07-01] MEDS ORDERED: LACT10SO17 PO (04:04)
[2016-07-01] MEDS ORDERED: PYRI25TA PO (04:52)
[2016-07-01] MEDS ORDERED: PROP10TA7 PO (04:52)
[2016-07-01] MEDS ORDERED: FURO-85 PO (05:55)
[2016-07-01] MEDS ORDERED: ONDA4TAB10 SL (12:02)
[2016-07-01] MEDS ORDERED: LEVO75TA PO (12:02)
[2016-07-01] MEDS ORDERED: RIFA550T2 PO (13:45)
[2016-07-01] MEDS ORDERED: FERR1TAB13 PO (14:58)
[2016-07-01] MEDS ORDERED: LEVE500T PO (16:08)
[2016-07-01] MEDS ORDERED: INSDGI SC (16:08)
[2016-08-22] MEDS ORDERED: MRLP17 PO (09:03)
[2016-08-22] MEDS ORDERED: INSDGI SC (09:03)
[2016-08-29] MEDS ORDERED: INSDGI SC (12:27)
[2016-08-29] MEDS ORDERED: POLY335019 PO (12:27)
[2016-10-28] MEDS ORDERED: XFX550 PO (14:18)
[2016-11-06] MEDS ORDERED: CLIN300C2 PO (14:29)
[2016-11-06] MEDS ORDERED: LCTX PO (14:29)
== END 2016-05-02 17:55 | disposition home health service (06) ==
LOC: ENRESERVDT → ENRESERVTM → EDBD 12:31 → C.EDC 12:33 → C.2E 19:03 → C.MS2W 04-28 17:37
PROVIDERS: ADMIT Internal Medicine; ATTEND Hospitalist
DX: K72.90 Hepatic failure, unspecified without coma (principal); K75.81 Nonalcoholic steatohepatitis (NASH); R47.01 Aphasia; R18.8 Other ascites; R07.89 Other chest pain; D64.9 Anemia, unspecified; D69.6 Thrombocytopenia, unspecified; Z79.899 Other long term (current) drug therapy; E11.9 Type 2 diabetes mellitus without complications; N18.3 Chronic kidney disease, stage 3 (moderate); Z86.718 Personal history of other venous thrombosis and embolism; G40.909 Epilepsy, unspecified, not intractable, without status epilepticus; F41.9 Anxiety disorder, unspecified; E78.5 Hyperlipidemia, unspecified; E03.9 Hypothyroidism, unspecified; Z82.49 Family history of ischemic heart disease and other diseases of the circulatory system; Z79.4 Long term (current) use of insulin

== ENCOUNTER 2016-05-04 22:24 | Inpatient (IN) | payer OTHER ==
[~2016-05-04] VITALS: Ht 182.9 cm; Wt 84.0 kg
[~2016-05-04 22:24] MED LIST changes: -BND25X PO; +DIPH25CA50 PO
[2016-05-04 22:29] VITALS: Ht 182.9 cm; Wt 84.0 kg
[2016-05-04] MEDS ORDERED: HYDROmorphone INJ 2 MG/ML SYR/VIAL IM STA (23:29)
--- NOTE | 2016-05-04 23:40 | EMERGENCY ROOM VISIT NOTE ---
History Report prepared by Alla: Jennifer Johnson Under the Supervision of: Dr. Kamila Escudero D.O. First contact with patient: 23:06 Chief Complaint: ABDOMINAL PAIN Stated Complaint: ABD PAIN Nursing Triage Summary: Pt roman MARCYJacinta for evaluation of increased abd pain. Pt d/c'd from [facility], 05/02/2016. Pt states he has an umbilical hernia and fluid in abd building up. Reports very painful. History of Present Illness The patient is a 61 year old male who presents to the Emergency Room with complaints of worsening abdominal pain for the past couple of days. The patient was just discharged from the hospital on 05/02/16. He had 10.6L of fluid removed from his abdomen on 04/27/16. The patient typically has fluid removed from his abdomen every two weeks. This is usually done as an outpatient. His next appointment is 05/08/16. He states that he is concerned because the fluid has reaccumulated faster than normal. He is experiencing "severe cramping" in his lower abdomen. He rates his current pain as an 8/10. The patient also reports nausea. He takes Dilaudid for pain and took his last dose this morning. He states that he is now out of his Dilaudid because he missed his appointment at the pain clinic while he was hospitalized. The patient denies vomiting. He has been having normal bowel movements with Lactulose. He was brought to the ED by ambulance. 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 A total of 10 systems reviewed and were otherwise negative. 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 Surgical Problems: (1) H/O esophagogastroduodenoscopy (2) H/O knee surgery (3) S/P cervical spinal fusion (4) S/P IVC filter (5) S/P lumbar fusion (6) S/P T&A (status post tonsillectomy and adenoidectomy) Family History FH: CAD (coronary artery disease) FATHER FH: breast cancer MOTHER Social History Smoking Status: Never Smoker Alcohol Use: none Drug Use: none Marital Status: single Housing Status: lives alone Occupation Status: retired Current/Historical Medications Scheduled Escitalopram (Lexapro), 10 MG PO DAILY Ferrous Sulfate (Kp Ferrous Sulfate), 1 TAB PO BID Furosemide (Lasix), 20 MG PO BID Insulin Aspart (Novolog Penfill), SQ TIDM Insulin Glargine (Lantus), 32 UNITS SC HS Lactulose (Chronulac), 20 GM PO TID Levetiractam (Levetiracetam), 500 MG PO AMHS Levothyroxine Sodium (Synthroid), 75 MCG PO DAILY Magnesium Oxide (Mag-Ox), 400 MG PO BID Pantoprazole (Protonix), 40 MG PO BID Pregabalin (Lyrica), 75 MG PO TID Propranolol (Inderal), 10 MG PO BID Pyridoxine Hcl (Vitamin B-6), 25 MG PO HS Rifaximin (Xifaxan), 550 MG PO AMHS Spironolactone (Aldactone), 1 TAB PO DAILY Scheduled PRN Diphenhydramine HCl (Diphenhydramine HCl), 25 MG PO BID PRN for itching/rash Hydromorphone Hcl (Dilaudid), 4 MG PO Q8 PRN for Pain Ondasetron Odt (Zofran Odt), 4 MG SL Q6H PRN for Nausea or Vomiting Triamcinolone Acet (Aristocort 0.1%), 1 APPL EXT BID PRN for dermatitis Allergies Coded Allergies: Acetaminophen (Verified Allergy, Severe, ESLD (PORTILLO). on Liver transplant list. Cannot have APAP., 05/04/16) NSAIDs (Verified Allergy, Severe, DUE TO LIVER DISEAS, 05/04/16) Penicillins (Verified Allergy, Severe, JOINT SWELLING AND FEVER, 05/04/16) Levofloxacin (Verified Allergy, Mild, RASH, 05/04/16) pt developed erythema at site of IV injection with itching Vancomycin (Verified Allergy, Mild, HIVES, 05/04/16) HIVES Tramadol (Verified Allergy, Unknown, NOT TO TAKE WITH KEPPRA DUE TO SEIZURE RISK, 05/04/16) Physical Exam Vital Signs Date Time Temp Pulse Resp B/P Pulse Ox O2 Delivery O2 Flow Rate FiO2 05/05/16 06:39 85 12 120/84 97 05/05/16 06:18 85 05/05/16 05:38 86 13 130/78 96 Room Air 05/05/16 03:31 89 14 123/80 95 Room Air 05/05/16 02:58 94 05/05/16 01:52 95 18 122/68 94 Room Air 05/05/16 00:03 36.9 99 23 120/86 95 Room Air 05/04/16 22:52 96 05/04/16 22:29 37.3 96 20 133/75 97 Room Air Physical Exam HEENT: Head - normocephalic and atraumatic Pupils are equal, round, and reactive to light. Extraocular eye muscles are intact, and sclera are anicteric. Nose - moist nasal mucosa without discharge. Mouth - moist buccal mucosa. Oropharynx is nonerythematous and there is no tonsillar exudate or edema noted. Neck: Supple; no JVD, nuchal rigidity, cervical lymphadenopathy. Heart: Regular rate and rhythm. There is a normal S1 and S2 with no murmurs, clicks, or gallops appreciated. Lungs: Clear to auscultation bilaterally with no wheezes, rales, or rhonchi. Abdomen: Distended abdomen consistent with ascites with hyperactive bowel sounds. Periumbilical hernia is easily reducible. There is no guarding, rigidity, or rebound noted. Extremities: Trace pedal edema in the left leg. No evidence of cyanosis or clubbing. There are easily palpable peripheral pulses. Skin: warm and dry with good turgor and no rashes. Medical Decision & Procedures ER Provider Diagnostic Interpretation: Obstruction series as interpreted by myself reveals normal bowel gas pattern, no signs of obstruction or free air. Laboratory Results 05/04/16 23:52 Red Blood Count 4.07, Mean Corpuscular Volume 71.5, Mean Corpuscular Hemoglobin 23.8, Mean Corpuscular Hemoglobin Concent 33.3, Neutrophils (%) (Auto) 68.7, Lymphocytes (%) (Auto) 13.7, Monocytes (%) (Auto) 14.4, Eosinophils (%) (Auto) 2.5, Basophils (%) (Auto) 0.6, Neutrophils # (Auto) 5.87, Lymphocytes # (Auto) 1.17, Monocytes # (Auto) 1.23, Eosinophils # (Auto) 0.21, Basophils # (Auto) 0.05 05/04/16 23:50 Test 05/04/16 23:50 05/04/16 23:52 05/05/16 04:34 Anion Gap 11.0 mmol/L (3-11) Est Creatinine Clear Calc Drug Dose 84.1 ml/min Estimated GFR () 93.1 Estimated GFR (Non- 80.3 BUN/Creatinine Ratio 11.8 (10-20) Calcium Level 8.2 mg/dl (8.5-10.1) Magnesium Level 1.9 mg/dl (1.8-2.4) Total Bilirubin 1.1 mg/dl (0.2-1) Direct Bilirubin 0.4 mg/dl (0-0.2) Aspartate Amino Transf (AST/SGOT) 49 U/L (15-37) Alanine Aminotransferase (ALT/SGPT) 31 U/L (12-78) Alkaline Phosphatase 137 U/L (45-117) Ammonia 61.0 umol/L (11-32) Total Protein 5.7 gm/dl (6.4-8.2) Albumin 2.7 gm/dl (3.4-5.0) Lipase 140 U/L (73-393) White Blood Count 8.54 K/uL (4.8-10.8) Red Blood Count 4.07 M/uL (4.7-6.1) Hemoglobin 9.7 g/dL (14.0-18.0) Hematocrit 29.1 % (42-52) Mean Corpuscular Volume 71.5 fL (80-100) Mean Corpuscular Hemoglobin 23.8 pg (25-34) Mean Corpuscular Hemoglobin Concent 33.3 g/dl (32-36) Platelet Count 91 K/uL (130-400) Neutrophils (%) (Auto) 68.7 % Lymphocytes (%) (Auto) 13.7 % Monocytes (%) (Auto) 14.4 % Eosinophils (%) (Auto) 2.5 % Basophils (%) (Auto) 0.6 % Neutrophils # (Auto) 5.87 K/uL (1.4-6.5) Lymphocytes # (Auto) 1.17 K/uL (1.2-3.4) Monocytes # (Auto) 1.23 K/uL (0.11-0.59) Eosinophils # (Auto) 0.21 K/uL (0-0.5) Basophils # (Auto) 0.05 K/uL (0-0.2) RDW Standard Deviation 54.4 fL (36.4-46.3) RDW Coefficient of Variation 20.7 % (11.5-14.5) Immature Granulocyte % (Auto) 0.1 % Immature Granulocyte # (Auto) 0.01 K/uL (0.00-0.02) Anisocytosis PRESENT Activated Partial Thromboplast Time 29.5 SECONDS (21.0-31.0) Partial Thromboplastin Ratio 1.1 Laboratory results per my review. Medications Administered Medications (Trade) Dose Ordered Sig/Ryan Route Start Time Stop Time Status Last Admin Dose Admin Hydromorphone HCl (Dilaudid Inj) 2 mg NOW STAT IM 05/04/16 23:29 05/04/16 23:32 DC 05/05/16 00:00 2 MG Ondansetron HCl (Zofran Odt) 4 mg ONE ONCE PO 05/05/16 00:30 05/05/16 00:31 DC 05/05/16 00:21 4 MG Hydromorphone HCl (Dilaudid Tab) 4 mg NOW STAT PO 05/05/16 01:41 05/05/16 01:43 DC 05/05/16 01:47 4 MG Potassium Chloride (Klor-Con M10) 40 meq NOW STAT PO 05/05/16 04:16 05/05/16 04:17 DC 05/05/16 04:16 40 MEQ Furosemide (Lasix Inj) 40 mg NOW STAT IV 05/05/16 04:14 05/05/16 04:15 DC 05/05/16 04:14 40 MG Lactulose (Chronulac Syrup) 20 gm 0449 ONCE PO 05/05/16 04:49 05/05/16 05:21 DC 05/05/16 05:44 20 GM Rifaximin (Xifaxan Tab) 550 mg 0449 ONCE PO 05/05/16 04:49 05/05/16 05:33 DC 05/05/16 05:44 550 MG Procedure Medications Administered: Dilaudid 2 mg IM Zofran 4 mg PO Dilaudid 4 mg PO ED Course 231: Past medical records reviewed. The patient was evaluated in room B11A. A complete history and physical exam was performed. Labs were drawn as above. 2329: Dilaudid 2 mg IM 0030: Zofran 4 mg PO 0139: I reevaluated the patient and he has not had any improvement of his pain. 0141: Dilaudid 4 mg PO. The patient is going for an obstruction series. 0340: I reassessed the patient at this time. He is resting more comfortably. I discussed the results and treatment plan with the patient. I answered all pertaining questions that he had. He expressed understanding and verbalized agreement. 035: I spoke with Dr. Yeager. We discussed the patient's results and treatment plan. The patient will be evaluated by the [facility] for further management. Medical Decision The patient is a 61 year old male who presents to the ED with abdominal pain. Differential diagnosis includes colitis, gastritis, SBO, expanding ascites. Laboratory Interpretations: Normal white count Anemic with a hemoglobin of 9.7 Platelet 91 Ammonia level 61 Total bilirubin 1.1 Direct bilirubin 0.4 AST 49 ALT 31 Normal renal function Potassium 3.2 This is a 61-year-old male patient with Portillo who presents to the emergency department with crampy abdominal pain. The patient has a long-standing history of abdominal pain and recurrent therapeutic paracentesis. The patient was just recently discharged from the hospital. He explained to me that he is scheduled for his next paracentesis on May 08. He does not believe that he can wait that long. The patient continued to describe intractable abdominal pain despite the pain meds we gave him. I discussed the case the [facility] and they will evaluate for further management. Consults Time Called: [phone] Consulting Physician: Dr. Yeager Returned Call: [phone] Yeager. We discussed the patient's results and treatment plan. The patient will be evaluated by the [facility] for further management. Impression Primary Impression: Ascites Additional Impression: Diffuse abdominal pain Scribe Attestation The scribe's documentation has been prepared under my direction and personally reviewed by me in its entirety. I confirm that the note above accurately reflects all work, treatment, procedures, and medical decision making performed by me. Departure Information Dispostion Being Evaluated By Hospitalist Referrals Chacha Munoz D.O. (PCP) Patient Instructions My [facility] Problem Qualifiers Primary Impression: Ascites Ascites type: other type Qualified Codes: R18.8 - Other ascites
[2016-05-04 23:58] LABS: MEAN CORPUSCULAR HGB CONC 33.3 g/dl (32-36)
[2016-05-05] VITALS (8 sets, daily range): BP systolic 90–128; BP diastolic 52–79; PULSE 57–77; TEMP 36.5–36.7; O2SAT 97–100
[2016-05-05 00:17] LABS: BUN/CREATININE RATIO 11.8 (10-20); CALCIUM 8.2 mg/dl (8.5-10.1); POTASSIUM 3.2 mmol/L (3.5-5.1)
[2016-05-05] MEDS ORDERED: ONDANSETRON 4MG OD TAB PO ONE (00:30)
[2016-05-05 00:31] LABS: HEMATOCRIT 29.1 % (42-52); MEAN CELL VOLUME 71.5 fL (80-100); MEAN CORPUSCULAR HEMOGLOBIN 23.8 pg (25-34); RED BLOOD COUNT 4.07 M/uL (4.7-6.1); WHITE BLOOD COUNT 8.54 K/uL (4.8-10.8)
[2016-05-05 00:49] LABS: PLATELET COUNT 91 K/uL (130-400)
[2016-05-05 00:50] LABS: ANISOCYTOSIS PRESENT; BASO % 0.6 %; BASO ABS # 0.05 K/uL (0-0.2); COMPLETE YES; EOS % 2.5 %; IG% 0.1 %; LYMPH % 13.7 %; LYMPH ABS # 1.17 K/uL (1.2-3.4); MONO % 14.4 %; NEUT % 68.7 %
[2016-05-05] MEDS ORDERED: HYDROmorphone HCL 2 MG TAB PO STA (01:41)
[2016-05-05] MEDS ORDERED: FUROSEMIDE INJ 40 MG in SYRINGE 0 ML IV STA (04:01)
[2016-05-05 04:11] LABS: MAGNESIUM 1.9 mg/dl (1.8-2.4)
[2016-05-05] MEDS ORDERED: FUROSEMIDE 40 MG/4 ML VIAL IV STA (04:14)
[2016-05-05] MEDS ORDERED: POTASSIUM CHLORIDE 10 MEQ TABCR PO STA ×2 (04:16→06:04)
[2016-05-05] MEDS ORDERED: ACETAMINOPHEN 325 MG TAB PO PRN (04:45)
[2016-05-05 04:49] LABS: PARTIAL THROMBOPLASTIN RATIO 1.1
[2016-05-05] MEDS ORDERED: LACTULOSE SYRUP 20 GM/30 ML UDC PO ONE (04:49)
[2016-05-05] MEDS ORDERED: RIFAXIMIN TAB 550 MG TAB PO ONE (04:49)
[2016-05-05] MEDS ORDERED: OPTIRAY 320 IV PRN (05:00)
--- NOTE | 2016-05-05 06:15 | HISTORY & PHYSICAL EXAMINATION ---
DATE OF ADMISSION: 05/04/2016 PRIMARY CARE DOCTOR: Dr. Munoz Hx obtained from px and records. CHIEF COMPLAINT: Abdominal pain and distention. 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 Recent confinement last week recurrent ascites sp repeat paracentesis. 10 liters removed. Repeat paracentesis to be done on May 08. Patient also had transient aphasia symptoms during recent confinement. Patient was discharged home a few days ago. About 2 days ago the patient developed worsening of chronic abdominal pain, a little different, it is more in the center radiating to the sides. Some nausea. No vomiting. Has good bowel movement. No fever, no chills, no chest pain, no shortness of breath. Hernias bulging as per px. Patient claims to be compliant with home diuretics and dietary instructions. Intractable pain in the Emergency Room. Px refused discharge to home by ER physician. MEDICAL HISTORY: As above. SURGERIES: Back surgery, knee replacement and neck surgery, IVC filter. HOME MEDICATIONS: Include; Lexapro, ferrous sulfate, Lasix, Dilaudid, NovoLog, Lantus, Synthroid, Zofran, Protonix, Lyrica, vitamin B6, Inderal, Aldactone ALLERGIES: ACETAMINOPHEN, VANCOMYCIN, TRAMADOL, LEVOFLOXACIN, PENICILLIN FAMILY HISTORY: Breast cancer and heart disease. PERSONAL AND SOCIAL HISTORY: Nonsmoker, no ETOH intake, disabled, lives w/ a roommate REVIEW OF SYSTEMS: As per HPI, all others negative. PHYSICAL EXAMINATION: VITAL SIGNS: Blood pressure was noted to be 138/86, pulse rate 99, RR 20, temperature 36.9 and sats 95 on room air. GENERAL: Noted to be uncomfortable, chronically ill. No respiratory distress. SKIN: Pallor. HEENT: Partial alopecia. Pale palpebral conjunctivae. Dry mucosa. NECK: No JVD. Supple. CHEST: Decreased breath sounds. HEART: Regular rate and rhythm. ABDOMEN: Abdominal distention, protuberant umbilicus and ant abd bulge, some tenderness. EXTREMITIES: Minimal LE edema. no tenderness NEUROLOGIC: No gross focality. LABORATORIES: Hemoglobin 9.2, hematocrit 27, white cell count is 8.8, platelets 91. Sodium 138, potassium 3.2, chloride 105, CO2 26, BUN 12, creatinine 1.1 and glucose 120. ammonia 61 Hemoglobin A1c from March 2016 was 11.6. ASSESSMENT: 1. Acute on chronic abdominal pain on home narcotics Recurrent admissions for recurrent ascites despite px claims of compliance w/ dietary restrictions and home meds cirrhosis 2 to NAFLD question of spontaneous bacterial peritonitis, no sepsis. Rule out incarcerated hernia given px complaints of "different" abd pain 2. Hypertension, stable. 3. DM2, insulin requiring, suboptimal control as of recent HgA1c. 4. Hypokalemia, secondary to diuretic therapy. 5. Chronic anemia, thrombocytopenia 2 cirrhosis. Hemoglobin at baseline. 6. History of pulmonary embolism, status post IVC filter 7. seizure dso, stable on meds 8. chronic pain on narcotics (px has manifested drug-seeking behavior during previous confinements e.g. previous request for his home Dilaudid tablets to be given IV whenever he's hospitalized because of his "bad teeth") PLAN: Observation GMF judicious narcotic use CT abdomen and pelvis RE worsening abd pain Further management pending CT results continue home diuretics for ascites. Replace potassium. Check mag. Basal insulin, ISS BG goal 140-180. carb count coverage indicated for suboptimal BG control DVT prophylaxis, SCDs. RE thrombocytopenia Full code. ADDENDUM : CT abd pelvis initial read : ascites, splenomegaly, cirrhosis, cholelithiasis change to full admission for recurrent ascites dx/tx paracentesis GI consult RE recurrent ascites, rapid re-accumulation given px claimed compliance MTDD
[2016-05-05] MEDS ORDERED: GLUCAGON FOR INJ 1 MG VIAL SQ PRN (06:30)
[2016-05-05] MEDS ORDERED: GLUCOSE 40% GEL 15 GM TUBE PO PRN (06:30)
[2016-05-05] MEDS ORDERED: GLUCOSE 10 TABS/TUBE PO PRN (06:30)
[2016-05-05] MEDS ORDERED: PROMETHAZINE HCL INJ 12.5 MG in SODIUM CHLORIDE 0.9% 50ML 50 ML IV PRN (06:30)
[2016-05-05] MEDS ORDERED: DEXTROSE 50% 50 ML SYR IV PRN (06:30)
[2016-05-05] MEDS ORDERED: hydrOXYzine HCL 10 MG TAB PO PRN (06:45)
--- NOTE | 2016-05-05 07:33 | DIAGNOSTIC IMAGING REPORT ---
ABDOMEN 2VIEW W/PA CHEST RTN CLINICAL HISTORY: eval for sob dyspnea. Abdominal pain. COMPARISON STUDY: 04/29/2006 FINDINGS: Chronic atelectatic change left base. Lungs otherwise are clear. Postoperative changes to the lumbosacral spine. Interpedicular screws at L5 have fractured in their mid aspect. Bowel pattern suggests a generalized ileus. Poor visibility of the rectosigmoid. Probable ascites IMPRESSION: 1. No acute process of the chest. 2. Possible pelvic ascites with nonspecific suboptimal visibility of the rectosigmoid and descending colon Electronically signed by: Marcin Tariq M.D. 05/05/2016 7:31 AM Dictated Date/Time: 05/05/2016 7:30 AM
--- NOTE | 2016-05-05 07:44 | DIAGNOSTIC IMAGING REPORT ---
ABDOMEN AND PELVIS CT WITH IV CONTRAST CT DOSE: 967.92 mGycm HISTORY: Pain worse ing abd pain TECHNIQUE: Multiaxial CT images of the abdomen and pelvis were performed following the use of intravenous contrast. COMPARISON STUDY: 03/13/2016 FINDINGS: Minimal bibasilar atelectatic change. Significant hepatic cirrhotic change. Moderate stable splenomegaly. Extensive upper abdominal and para esophageal varices. Gallstones within a contracted gallbladder. Extensive abdominal and pelvic ascites. Inferior vena caval filter unchanged in position. Kidneys enhance appropriately. Nonobstructive bowel pattern. Fluid containing periumbilical hernia. Chronic sigmoid diverticulosis. Considerable pelvic ascites. Postoperative changes lumbar spine unaltered from the prior exam. Pancreatic atrophy. IMPRESSION: 1. End stage hepatic cirrhosis. 2. Splenomegaly. 3. Extensive upper abdominal and para esophageal varices. 4. Pancreatic atrophy. 5. Nonobstructive bowel pattern. 6. Fluid-filled periumbilical hernia. No evidence for bowel containment or obstructive change. 7. Chronic sigmoid diverticulosis. 8. Gallstones in a contracted gallbladder. Electronically signed by: Marcin Tariq M.D. 05/05/2016 7:42 AM Dictated Date/Time: 05/05/2016 7:34 AM
[2016-05-05] MEDS: LEVOTHYROXINE 75 MCG TAB PO SCH (09:00)
[2016-05-05] MEDS ORDERED: INSULIN GLARGINE SOLOSTAR 100 UNITS/ML 3 ML PEN SC SCH (09:00)
[2016-05-05] MEDS: PANTOprazole SOD 40 MG TAB PO SCH ×2 (09:10→20:54)
[2016-05-05] MEDS: LEVETIRACETAM 500 MG TAB PO SCH ×2 (09:10→20:54)
[2016-05-05] MEDS: PROPRANOLOL HCL 10 MG TAB PO SCH ×2 (09:10→20:55)
[2016-05-05] MEDS: PREGABALIN 75 MG CAP PO SCH ×3 (09:10→20:55)
[2016-05-05] MEDS: FERROUS SULFATE 325 MG TAB PO SCH ×2 (09:10→20:53)
[2016-05-05] MEDS: ESCITALOPRAM OXALATE 10 MG TAB PO SCH (09:10)
[2016-05-05] MEDS: LACTULOSE SYRUP 20 GM/30 ML UDC PO SCH ×4 (09:10→20:53)
[2016-05-05] MEDS ORDERED: POTASSIUM CHLORIDE 10 MEQ TABCR PO ONE (09:30)
--- NOTE | 2016-05-05 09:33 | Gastrointestinal Consultation ---
Gastrointestinal Consultation Date of Consultation: May 05, 2016 Consulting Physician: Nohemi Reason for Consultation: ascites History of Present Illness Mr. Broderick is a 61 year old male with PMH of DMT2, BETANCOURT cirrhosis complicated by esophageal varices, prior hepatic encephalopathy BETANCOURT, Dyslipidemia, Portal Hypertension, History PE, S/P IVC filter placement, Anxiety/Depression. He presented to the ED yesterday with increasing abdominal girth and different abdominal pain. GI is consulted for treatment of BETANCOURT cirrhosis and ascites. He was recently admitted on 04/27 and discharged on 05/02 in good condition. He is known well in our clinic and typically followed by Dr. Culver - outpatient medications Lasix 40mg BID, Spironolactone 100mg daily, Lactulose 20grams BID, Protonix 40mg BID, Xifaxin 550mg BID with paracentesis needed every 2-4 weeks. Today's MELD is 8 Last paracentesis was less than a week ago with 11 L removed. He is now reporting abdominal pain intermittent sharp stabbing. Localized to bilateral lower quadrants and up his abdomen. CT ABD 05/05/16: Minimal bibasilar atelectatic change. Significant hepatic cirrhotic change. Moderate stable splenomegaly. Extensive upper abdominal and para esophageal varices. Gallstones within a contracted gallbladder. Extensive abdominal and pelvic ascites. Inferior vena caval filter unchanged in position. Kidneys enhance appropriately. Nonobstructive bowel pattern. Fluid containing periumbilical hernia. Chronic sigmoid diverticulosis. Considerable pelvic ascites. Postoperative changes lumbar spine unaltered from the prior exam.Pancreatic atrophy. Past Medical/Surgical History Medical Problems: (1) Abdominal pain Status: Acute (2) Abdominal pain Status: Acute (3) Abdominal pain Status: Acute (4) Acute hyperglycemia Status: Acute (5) Ambulatory dysfunction Status: Acute (6) Ambulatory dysfunction Status: Acute (7) Anasarca Status: Acute (8) Anemia Status: Acute (9) Anemia Status: Acute (10) Anemia Status: Acute (11) Ascites Status: Acute (12) Ascites Status: Acute (13) Ascites Status: Acute (14) Ascites Status: Acute (15) Ascites Status: Acute (16) Chest pain Status: Acute (17) Chronic liver failure Status: Acute (18) Chronic low back pain Status: Acute (19) Cirrhosis Status: Acute (20) Cirrhosis of liver Status: Acute (21) Contusion of left foot Status: Acute (22) Diarrhea Status: Acute (23) Diffuse abdominal pain Status: Acute (24) Dyspnea Status: Acute (25) Generalized weakness Status: Acute (26) HHNC (hyperglycemic hyperosmolar nonketotic coma) Status: Acute (27) Hyperglycemia Status: Acute (28) Hyperglycemia Status: Acute (29) Hyperglycemia Status: Acute (30) Hypoglycemia Status: Acute (31) Hypoglycemia Status: Acute (32) Muscle weakness Status: Acute (33) Nausea, vomiting, and diarrhea Status: Acute (34) Thrombocytopenia Status: Acute (35) Weakness Status: Acute Family History FH: CAD (coronary artery disease) FATHER FH: breast cancer MOTHER Social History Smoking Status: Never Smoker Alcohol Use: none Drug Use: none Marital Status: single Housing Status: lives alone Occupation Status: retired Allergies Coded Allergies: Acetaminophen (Verified Allergy, Severe, ESLD (BETANCOURT). on Liver transplant list. Cannot have APAP., 05/04/16) NSAIDs (Verified Allergy, Severe, DUE TO LIVER DISEAS, 05/04/16) Penicillins (Verified Allergy, Severe, JOINT SWELLING AND FEVER, 05/04/16) Levofloxacin (Verified Allergy, Mild, RASH, 05/04/16) pt developed erythema at site of IV injection with itching Vancomycin (Verified Allergy, Mild, HIVES, 05/04/16) HIVES Tramadol (Verified Allergy, Unknown, NOT TO TAKE WITH KEPPRA DUE TO SEIZURE RISK, 05/04/16) Current Medications Home Meds and Scripts Medications Dose Route/Sig Max Daily Dose Days Date Category Dose Instructions Kp Ferrous Sulfate (Ferrous Sulfate) 325 Mg Tab 1 Tab PO BID 04/27/16 Reported Diphenhydramine HCl 25 Mg Cap 25 Mg PO BID PRN 7 04/10/16 Rx Dilaudid (Hydromorphone Hcl) 2 Mg Tab 4 Mg PO Q8 PRN 3 04/09/16 Reported Lasix (Furosemide) 20 Mg Tab 20 Mg PO BID 04/09/16 Reported Chronulac (Lactulose) 10 Gm/15 Ml Syrp 20 Gm PO TID 03/27/16 Reported Aristocort 0.1% (Triamcinolone Acet) 90 Appln/30 Gm Cr 1 Appl EXT BID PRN 03/27/16 Reported Novolog Penfill (Insulin Aspart) 100 Unit/Ml Inj SQ TIDM 03/13/16 Reported via SSI Lantus (Insulin Glargine) 100 Unit/Ml Inj 32 Units SC HS 03/13/16 Reported Levetiracetam (Levetiractam) 500 Mg Tab 500 Mg PO AMHS 03/13/16 Reported Aldactone (Spironolactone) 100 Mg Tab 1 Tab PO DAILY 30 12/10/15 Reported Inderal (Propranolol HCl) 10 Mg Tab 10 Mg PO BID 06/04/15 Reported Vitamin B-6 (Pyridoxine Hcl) 25 Mg Tab 25 Mg PO HS 06/04/15 Reported Synthroid (Levothyroxine Sodium) 75 Mcg Tab 75 Mcg PO DAILY 05/07/15 Reported Lyrica (Pregabalin) 75 Mg Cap 75 Mg PO TID 05/07/15 Reported Zofran Odt (Ondansetron HCl) 4 Mg Tab 4 Mg SL Q6H PRN 05/07/15 Reported Lexapro (Escitalopram Oxalate) 10 Mg Tab 10 Mg PO DAILY 10/30/14 Reported Protonix (Pantoprazole) 40 Mg Tab 40 Mg PO BID 08/04/14 Reported Xifaxan (Rifaximin) 550 Mg Tab 550 Mg PO AMHS 05/20/13 Reported ONE AT BREAKFAST AND ONE AT SUPPER. Mag-Ox (Magnesium Oxide) 400 Mg Tab 400 Mg PO BID 09/29/11 Reported Review of Systems Constitutional: No chills, No fever Respiratory: No shortness of breath Cardiac: No chest pain Abdomen: + nausea, + pain, No GI bleeding, No constipation, No diarrhea, No vomiting Physical Exam Date Time Temp Pulse Resp B/P Pulse Ox O2 Delivery O2 Flow Rate FiO2 05/05/16 07:23 36.7 77 18 128/79 97 Room Air 05/05/16 06:39 85 12 120/84 97 05/05/16 06:18 85 05/05/16 05:38 86 13 130/78 96 Room Air 05/05/16 03:31 89 14 123/80 95 Room Air 05/05/16 02:58 94 05/05/16 01:52 95 18 122/68 94 Room Air 05/05/16 00:03 36.9 99 23 120/86 95 Room Air 05/04/16 22:52 96 05/04/16 22:29 37.3 96 20 133/75 97 Room Air General Appearance: no apparent distress Eyes: PERRL ENT: hearing grossly normal Neck: supple Respiratory/Chest: lungs clear, normal breath sounds, no respiratory distress, no accessory muscle use Cardiovascular: regular rate, rhythm, no gallop, no JVD Abdomen: normal bowel sounds, no organomegaly, no pulsatile mass, + distended, + pertinent finding (ascites, umbilical hernia bulging) Neurologic/Psych: alert, normal mood/affect, oriented x 3 Skin: no jaundice, warm/dry, no rash Laboratory Results Last 24 Hours Test 05/04/16 23:50 05/04/16 23:52 05/05/16 04:34 05/05/16 07:54 Sodium Level 138 mmol/L Potassium Level 3.2 mmol/L Chloride Level 105 mmol/L Carbon Dioxide Level 22 mmol/L Anion Gap 11.0 mmol/L Blood Urea Nitrogen 12 mg/dl Creatinine 1.00 mg/dl Est Creatinine Clear Calc Drug Dose 84.1 ml/min Estimated GFR () 93.1 Estimated GFR (Non- 80.3 BUN/Creatinine Ratio 11.8 Random Glucose 100 mg/dl Calcium Level 8.2 mg/dl Magnesium Level 1.9 mg/dl Total Bilirubin 1.1 mg/dl Direct Bilirubin 0.4 mg/dl Aspartate Amino Transf (AST/SGOT) 49 U/L Alanine Aminotransferase (ALT/SGPT) 31 U/L Alkaline Phosphatase 137 U/L Ammonia 61.0 umol/L Total Protein 5.7 gm/dl Albumin 2.7 gm/dl Lipase 140 U/L White Blood Count 8.54 K/uL Red Blood Count 4.07 M/uL Hemoglobin 9.7 g/dL Hematocrit 29.1 % Mean Corpuscular Volume 71.5 fL Mean Corpuscular Hemoglobin 23.8 pg Mean Corpuscular Hemoglobin Concent 33.3 g/dl Platelet Count 91 K/uL Neutrophils (%) (Auto) 68.7 % Lymphocytes (%) (Auto) 13.7 % Monocytes (%) (Auto) 14.4 % Eosinophils (%) (Auto) 2.5 % Basophils (%) (Auto) 0.6 % Neutrophils # (Auto) 5.87 K/uL Lymphocytes # (Auto) 1.17 K/uL Monocytes # (Auto) 1.23 K/uL Eosinophils # (Auto) 0.21 K/uL Basophils # (Auto) 0.05 K/uL RDW Standard Deviation 54.4 fL RDW Coefficient of Variation 20.7 % Immature Granulocyte % (Auto) 0.1 % Immature Granulocyte # (Auto) 0.01 K/uL Anisocytosis PRESENT Activated Partial Thromboplast Time 29.5 SECONDS Partial Thromboplastin Ratio 1.1 Bedside Glucose 139 mg/dl Impression Patient is a 61 year old male with BETANCOURT cirrhosis who presents with fluid overload and ascites. There are reports of abdominal pains. CT negative. Differentials include ascites and SBP Plan NPO for paracentesis US guided paracentesis - this was ordered by primary team 25g 25% albumin before & after Outpatient medications Suggest dietary consult to discuss salt restriction and calculation as patient reports he is not calculating because he knows he is eating less than 2g continue outpatient medications limit narcotic use ?drug seeking 05/05/16 MELD: 8 Further recommendations pending paracentesis. I have seen and examined the patient with Beti Alex whose note reflects our findings and plan. Patient well known to the group. Multiple hospitalizations for decompensated cirrhosis and diuretic resistant ascites. Not a candidate for paracentesis. Element of non-compliance. He will need a paracentesis. Albumin to be given.
[2016-05-05] MEDS: HYDROmorphone HCL 2 MG TAB PO PRN ×3 (09:57→22:47)
[2016-05-05] MEDS ORDERED: ALBUMIN HUMAN 25% 12.5 GM/50 ML VIAL IV ONE ×2 (10:00→12:00)
[2016-05-05] MEDS: INSULIN ASPART 100 UNITS/ML 3 ML PEN SC SCH ×4 (12:41→21:45)
[2016-05-05] MEDS: ONDANSETRON INJ 2 MG/ML 2 ML VIAL IV PRN ×2 (12:44→16:07)
--- NOTE | 2016-05-05 12:51 | DIAGNOSTIC IMAGING REPORT ---
ULTRASOUND GUIDED DIAGNOSTIC AND THERAPEUTIC PARACENTESIS CLINICAL HISTORY: Ascites. COMPARISON STUDY: CT of the abdomen and pelvis performed earlier today. PROCEDURE: The risks, benefits, and alternatives to the procedure were discussed with the patient including the risk of bleeding, infection and injury to adjacent structures. The patient agreed to the procedure and informed written consent was obtained. Following real-time ultrasound localization, the skin of the left lower quadrant was prepped and draped. Following local anesthesia with Xylocaine, the sheath paracentesis needle was inserted and approximately 8.1 liters of straw-colored fluid was removed by vacuum suction. The patient tolerated the procedure well and no immediate complications were evident. IMPRESSION: Ultrasound-guided diagnostic and therapeutic paracentesis with removal of 8.1 liters of ascites. One liter of ascites was sent to the laboratory for analysis. Electronically signed by: Luisito Obregon M.D. 05/05/2016 12:50 PM Dictated Date/Time: 05/05/2016 12:48 PM
[2016-05-05 14:12] LABS: PERIT FL WBC 63 /uL (0-300); PERITONEAL FLUID RBC < 3000 /uL
[2016-05-05] MEDS: ALBUMIN HUMAN 25% 12.5 GM/50 ML VIAL IV SCH ×2 (14:19→15:36)
[2016-05-05] MEDS: RIFAXIMIN TAB 550 MG TAB PO SCH (20:54)
[2016-05-05] MEDS: INSULIN GLARGINE SOLOSTAR 100 UNITS/ML 3 ML PEN SC SCH (21:44)
[2016-05-06 00:44] VITALS: BP 92/52; PULSE 57; TEMP 36.7; O2SAT 98
[2016-05-06] MEDS: LEVOTHYROXINE 75 MCG TAB PO SCH (05:41)
[2016-05-06 07:53] VITALS: BP 109/69; PULSE 58; TEMP 36.8; O2SAT 95
[2016-05-06] MEDS: PROPRANOLOL HCL 10 MG TAB PO SCH (07:57)
[2016-05-06] MEDS: LEVETIRACETAM 500 MG TAB PO SCH (07:57)
[2016-05-06] MEDS: FERROUS SULFATE 325 MG TAB PO SCH (07:57)
[2016-05-06] MEDS: LACTULOSE SYRUP 20 GM/30 ML UDC PO SCH ×2 (07:57→14:00)
[2016-05-06] MEDS: RIFAXIMIN TAB 550 MG TAB PO SCH (07:58)
[2016-05-06] MEDS: ESCITALOPRAM OXALATE 10 MG TAB PO SCH (07:58)
[2016-05-06] MEDS: PREGABALIN 75 MG CAP PO SCH ×2 (07:58→14:02)
[2016-05-06] MEDS: PANTOprazole SOD 40 MG TAB PO SCH (07:58)
[2016-05-06] MEDS: INSULIN ASPART 100 UNITS/ML 3 ML PEN SC SCH ×2 (08:02→12:14)
[2016-05-06] MEDS: INSULIN GLARGINE SOLOSTAR 100 UNITS/ML 3 ML PEN SC SCH (08:03)
[2016-05-06 08:04] LABS: MEAN CORPUSCULAR HGB CONC 31.6 g/dl (32-36)
[2016-05-06 08:18] LABS: HEMATOCRIT 30.7 % (42-52); MEAN CELL VOLUME 74.7 fL (80-100); MEAN CORPUSCULAR HEMOGLOBIN 23.6 pg (25-34); RED BLOOD COUNT 4.11 M/uL (4.7-6.1); WHITE BLOOD COUNT 4.01 K/uL (4.8-10.8)
[2016-05-06 08:34] LABS: PLATELET COUNT 60 K/uL (130-400)
[2016-05-06 08:36] LABS: ANISOCYTOSIS PRESENT; BASO ABS # 0.11 K/uL (0-0.2); BASOPHIL % 2.7 % (0-2); COMPLETE YES; EOSINOPHIL % 1.8 %; LYMPH ABS # 0.53 K/uL (1.2-3.4); LYMPHOCYTE % 13.3 %; NEUTROPHILS % 69.8 %; PLT ESTIMATE DECREASED
[2016-05-06] MEDS: HYDROmorphone HCL 2 MG TAB PO PRN (08:41)
[2016-05-06 09:00] LABS: BUN/CREATININE RATIO 10.5 (10-20); CALCIUM 7.6 mg/dl (8.5-10.1); CREATININE 0.98 mg/dl (0.60-1.40); POTASSIUM 4.5 mmol/L (3.5-5.1)
[2016-05-06] MEDS ORDERED: FUROSEMIDE 20 MG TAB PO SCH (09:00)
[2016-05-06] MEDS ORDERED: SPIRONOLACTONE 100 MG TAB PO SCH (09:00)
--- NOTE | 2016-05-06 09:21 | Progress Note ---
Subjective Date of Service: May 06, 2016. Subjective Pt evaluation today including: conversation w/ patient, physical exam, lab review, review of studies, conversation w/ government operations consultant, review of inpatient medication list Saw/examined the patient in room 262 He is doing better today after his tap Tolerated breakfast Problem List Medical Problems: (1) Abdominal pain Status: Acute (2) Abdominal pain Status: Acute (3) Abdominal pain Status: Acute (4) Acute hyperglycemia Status: Acute (5) Ambulatory dysfunction Status: Acute (6) Ambulatory dysfunction Status: Acute (7) Anasarca Status: Acute (8) Anemia Status: Acute (9) Anemia Status: Acute (10) Anemia Status: Acute (11) Ascites Status: Acute (12) Ascites Status: Acute (13) Ascites Status: Acute (14) Ascites Status: Acute (15) Ascites Status: Acute (16) Chest pain Status: Acute (17) Chronic liver failure Status: Acute (18) Chronic low back pain Status: Acute (19) Cirrhosis Status: Acute (20) Cirrhosis of liver Status: Acute (21) Contusion of left foot Status: Acute (22) Diarrhea Status: Acute (23) Diffuse abdominal pain Status: Acute (24) Dyspnea Status: Acute (25) Generalized weakness Status: Acute (26) HHNC (hyperglycemic hyperosmolar nonketotic coma) Status: Acute (27) Hyperglycemia Status: Acute (28) Hyperglycemia Status: Acute (29) Hyperglycemia Status: Acute (30) Hypoglycemia Status: Acute (31) Hypoglycemia Status: Acute (32) Muscle weakness Status: Acute (33) Nausea, vomiting, and diarrhea Status: Acute (34) Thrombocytopenia Status: Acute (35) Weakness Status: Acute Review of Systems Respiratory: No shortness of breath Cardiac: No chest pain Abdomen: + pain (mild tenderness persists, though much improved), No diarrhea, No nausea, No vomiting Heme: No abnormal bleeding/bruising Medications Current Inpatient Medications Medications (Trade) Dose Ordered Sig/Ryan Route Start Time Stop Time Status Last Admin Dose Admin Hydromorphone HCl (Dilaudid Tab) 4 mg Q8H PRN PO 05/05/16 04:30 05/19/16 04:29 05/06/16 08:41 4 MG Ioversol (Optiray 320) 100 ml UD PRN IV 05/05/16 05:00 05/09/16 04:59 Lactulose (Chronulac Syrup) 20 gm TID PO 05/05/16 09:00 06/04/16 08:59 05/06/16 07:57 20 GM Rifaximin (Xifaxan Tab) 550 mg AMHS PO 05/05/16 21:00 06/04/16 20:59 05/06/16 07:58 550 MG Insulin Aspart (novoLOG ASPART) SLIDING SCALE If C... ACHS SC 05/05/16 07:00 06/04/16 06:59 05/06/16 08:02 5 UNITS Glucose (Glucose 40% Gel) 15-30 GRAMS 15 GRAMS... UD PRN PO 05/05/16 06:30 06/04/16 06:29 Glucose (Glucose Chew Tab) 4-8 Tablets 4 Tabl... UD PRN PO 05/05/16 06:30 06/04/16 06:29 Dextrose (Dextrose 50% 50ML Syringe) 25-50ML OF 50% DW IV FOR... UD PRN IV 05/05/16 06:30 06/04/16 06:29 Glucagon (Glucagon Inj) 1 mg UD PRN SQ 05/05/16 06:30 06/04/16 06:29 Ondansetron HCl 4 mg 4 mg Q6H PRN IV 05/05/16 06:30 06/04/16 06:29 05/05/16 16:07 4 MG Promethazine HCl/ Sodium Chloride (Phenergan Inj/ Nss 50ml) 50.5 ml @ 204 mls/hr Q6H PRN IV 05/05/16 06:30 06/04/16 06:29 Escitalopram Oxalate (Lexapro Tab) 10 mg DAILY PO 05/05/16 09:00 06/04/16 08:59 05/06/16 07:58 10 MG Furosemide (Lasix Tab) 20 mg BID PO 05/06/16 09:00 06/05/16 08:59 05/06/16 07:58 20 MG Levetiracetam (Keppra Tab) 500 mg AMHS PO 05/05/16 09:00 06/04/16 08:59 05/06/16 07:57 500 MG Levothyroxine Sodium (Synthroid Tab) 75 mcg DAILYBB PO 05/05/16 09:00 06/04/16 08:59 05/06/16 05:41 75 MCG Pantoprazole Sodium (Protonix Tab) 40 mg BID PO 05/05/16 09:00 06/04/16 08:59 05/06/16 07:58 40 MG Pregabalin (Lyrica Cap) 75 mg TID PO 05/05/16 09:00 06/04/16 08:59 05/06/16 07:58 75 MG Propranolol HCl (Inderal Tab) 10 mg BID PO 05/05/16 09:00 06/04/16 08:59 05/06/16 07:57 10 MG Spironolactone (Aldactone Tab) 100 mg DAILY PO 05/06/16 09:00 06/05/16 08:59 05/06/16 07:57 100 MG Ferrous Sulfate (Feosol Tab) 325 mg BID PO 05/05/16 09:00 06/04/16 08:59 05/06/16 07:57 325 MG Hydroxyzine HCl (Vistaril Tab) 10 mg Q6H PRN PO 05/05/16 06:45 06/04/16 06:44 05/06/16 03:20 10 MG Insulin Glargine (Lantus Solostar Pen) 12 unit BID SC 05/05/16 21:00 06/04/16 20:59 05/06/16 08:03 12 UNIT Objective Vital Signs Date Time Temp Pulse Resp B/P Pulse Ox O2 Delivery O2 Flow Rate FiO2 05/06/16 07:53 36.8 58 20 109/69 95 Room Air 05/06/16 00:44 36.7 57 20 92/52 98 Room Air 05/05/16 23:30 Room Air 05/05/16 18:03 62 109/65 05/05/16 16:00 100 Room Air 05/05/16 15:48 60 111/66 100 Room Air 05/05/16 14:23 36.6 60 90/52 97 Room Air 05/05/16 13:54 36.5 60 20 100/59 97 05/05/16 13:28 57 108/67 05/05/16 12:48 74 109/65 05/05/16 11:49 Room Air Physical Exam General Appearance: no apparent distress Respiratory/Chest: no respiratory distress, no accessory muscle use Abdomen: non tender, soft, + hernia (ventral hernia noted; swelling/distention of abdomen improved) Extremities: normal inspection, no pedal edema Neurologic/Psychiatric: no motor/sensory deficits, alert, normal mood/affect Laboratory Results Last 24 Hours Test 05/05/16 12:38 05/05/16 16:41 05/05/16 19:45 05/06/16 07:35 Bedside Glucose 125 mg/dl 160 mg/dl 195 mg/dl White Blood Count 4.01 K/uL Red Blood Count 4.11 M/uL Hemoglobin 9.7 g/dL Hematocrit 30.7 % Mean Corpuscular Volume 74.7 fL Mean Corpuscular Hemoglobin 23.6 pg Mean Corpuscular Hemoglobin Concent 31.6 g/dl Platelet Count 60 K/uL RDW Standard Deviation 57.5 fL RDW Coefficient of Variation 21.0 % Neutrophils % (Manual) 69.8 % Lymphocytes % (Manual) 13.3 % Monocytes % (Manual) 12.4 % Eosinophils % (Manual) 1.8 % Basophils % (Manual) 2.7 % Neutrophils # (Manual) 2.80 K/uL Total Absolute Neutrophils 2.80 K/uL Lymphocytes # (Manual) 0.53 K/uL Total Absolute Lymphocytes 0.53 K/uL Monocytes # (Manual) 0.50 K/uL Eosinophils # (Manual) 0.07 K/uL Basophils # (Manual) 0.11 K/uL Platelet Estimate DECREASED Anisocytosis PRESENT Test 05/06/16 07:36 05/06/16 08:17 Bedside Glucose 251 mg/dl Sodium Level 137 mmol/L Potassium Level 4.5 mmol/L Chloride Level 104 mmol/L Carbon Dioxide Level 24 mmol/L Anion Gap 9.0 mmol/L Blood Urea Nitrogen 10 mg/dl Creatinine 0.98 mg/dl Est Creatinine Clear Calc Drug Dose 85.8 ml/min Estimated GFR () 95.4 Estimated GFR (Non- 82.3 BUN/Creatinine Ratio 10.5 Random Glucose 277 mg/dl Calcium Level 7.6 mg/dl Ammonia 85.0 umol/L Assessment and Plan This is a 61 year old male with PMH of BETANCOURT/end stage liver disease, liver cirrhosis, recurrent ascites, thrombocytopenia, esophageal varices, chronic pain and long-term narcotic use, hx. of PE s/p IVC filter - presents with recurrent abdominal pain, recurrent ascites Recurrent Ascites End Stage Liver Disease secondary to BETANCOURT s/p therapeutic paracentesis on 04/27 - 10.6L removed presented to the hospital again with recurrent ascites repeat paracentesis performed on 05/05 - another 8L removed unsure if patient is compliant with medications at home should follow with hepatology specialist continue home medications which include Lasix/Aldactone continue Rifaximin and Lactulose Low Na diet and Fluid restriction in place Chronic Anemia stable Chronic Thrombocytopenia Avoid ASA, heparin when possible Chronic Pain and Long-term Narcotic Use continue home pain medications should f/u with outpatient pain management DM2 Increased Lantus to 15 units BID Insulin sliding scale coverage A1c 11.6 on 04/03/16-very poorly controlled CKD stage 3 Creat is stable Avoid nephrotoxins Seizure Disorder Continue Keppra Hx. of PE S/p IVC filter Not on anticoagulation due to thrombocytopenia/ bleeding risk CT chest shows no evidence of PE DVT ppx SCD's due to thrombocytopenia FULL CODE
--- NOTE | 2016-05-06 09:35 | Discharge Instructions ---
Discharge Instructions Date of Service May 06, 2016. Admission Reason for Admission: Ascites Discharge Discharge Diagnosis / Problem: End Stage Liver Disease, Recurrent Ascites Discharge Goals Goal(s): Decrease discomfort, Improve function, Diagnostic testing, Therapeutic intervention Activity Recommendations Activity Limitations: resume your previous activity . Instructions / Follow-Up Instructions / Follow-Up Please follow-up with Dr. Munoz on May 08 @ 11:10AM * Please stay compliant with all of your medications Current Hospital Diet Patient's current hospital diet: Low Sodium Diet (2gm Na) Discharge Diet Recommended Diet: Low Sodium Diet (2gm Na) Pending Studies Studies pending at discharge: no Laboratory Results Hemoglobin A1c Test 04/03/16 05:54 Range/Units Estimated Average Glucose 286 mg/dl Hemoglobin A1c 11.6 H 4.5-5.6 % Medical Emergencies . Who to Call and When: Medical Emergencies: If at any time you feel your situation is an emergency, please call 911 immediately. . Non-Emergent Contact Non-Emergency issues call your: Primary Care Provider . . "Provider Documentation" section prepared by Korey Veronica. VTE Core Measure Inpt VTE Proph given/why not?: SCD's
--- NOTE | 2016-05-06 09:38 | Discharge Summary ---
Discharge Summary Date of Service May 06, 2016. Discharge Summary Admission Date: May 05, 2016 at 06:04 Discharge Date: May 06, 2016 Discharge Disposition: Home Principal Diagnosis: End Stage Liver Disease/BETANCOURT Recurrent Ascites Medication Reconciliation Continued Medications: Diphenhydramine HCl (Diphenhydramine HCl) 25 Mg Cap 25 MG PO BID PRN for itching/rash for 7 Days, #14 CAP Escitalopram (Lexapro) 10 Mg Tab 10 MG PO DAILY, TAB Ferrous Sulfate (Kp Ferrous Sulfate) 325 Mg Tab 1 TAB PO BID, TAB Furosemide (Lasix) 20 Mg Tab 20 MG PO BID, TAB Hydromorphone Hcl (Dilaudid) 2 Mg Tab 4 MG PO Q8 PRN for Pain for 3 Days, #10 TAB Insulin Aspart (Novolog Penfill) 100 Unit/Ml Inj SQ TIDM via SSI Insulin Glargine (Lantus) 100 Unit/Ml Inj 32 UNITS SC HS, VIAL Lactulose (Chronulac) 10 Gm/15 Ml Syrp 20 GM PO TID Levetiractam (Levetiracetam) 500 Mg Tab 500 MG PO AMHS Levothyroxine Sodium (Synthroid) 75 Mcg Tab 75 MCG PO DAILY, TAB Magnesium Oxide (Mag-Ox) 400 Mg Tab 400 MG PO BID Ondasetron Odt (Zofran Odt) 4 Mg Tab 4 MG SL Q6H PRN for Nausea or Vomiting, TAB Pantoprazole (Protonix) 40 Mg Tab 40 MG PO BID, TAB Pregabalin (Lyrica) 75 Mg Cap 75 MG PO TID, CAP Propranolol (Inderal) 10 Mg Tab 10 MG PO BID, TAB Pyridoxine Hcl (Vitamin B-6) 25 Mg Tab 25 MG PO HS Rifaximin (Xifaxan) 550 Mg Tab 550 MG PO AMHS ONE AT BREAKFAST AND ONE AT SUPPER. Spironolactone (Aldactone) 100 Mg Tab 1 TAB PO DAILY for 30 Days, #30 TAB 11 Refills Triamcinolone Acet (Aristocort 0.1%) 90 Appln/30 Gm Cr 1 APPL EXT BID PRN for dermatitis Admission Information Physical Exam (per Admitting): DATE OF ADMISSION: 05/04/2016 PRIMARY CARE DOCTOR: Dr. Munoz Hx obtained from px and records. CHIEF COMPLAINT: Abdominal pain and distention. 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 Recent confinement last week recurrent ascites sp repeat paracentesis. 10 liters removed. Repeat paracentesis to be done on May 08. Patient also had transient aphasia symptoms during recent confinement. Patient was discharged home a few days ago. About 2 days ago the patient developed worsening of chronic abdominal pain, a little different, it is more in the center radiating to the sides. Some nausea. No vomiting. Has good bowel movement. No fever, no chills, no chest pain, no shortness of breath. Hernias bulging as per px. Patient claims to be compliant with home diuretics and dietary instructions. Intractable pain in the Emergency Room. Px refused discharge to home by ER physician. MEDICAL HISTORY: As above. SURGERIES: Back surgery, knee replacement and neck surgery, IVC filter. HOME MEDICATIONS: Include; Lexapro, ferrous sulfate, Lasix, Dilaudid, NovoLog, Lantus, Synthroid, Zofran, Protonix, Lyrica, vitamin B6, Inderal, Aldactone ALLERGIES: ACETAMINOPHEN, VANCOMYCIN, TRAMADOL, LEVOFLOXACIN, PENICILLIN FAMILY HISTORY: Breast cancer and heart disease. PERSONAL AND SOCIAL HISTORY: Nonsmoker, no ETOH intake, disabled, lives w/ a roommate REVIEW OF SYSTEMS: As per HPI, all others negative. PHYSICAL EXAMINATION: VITAL SIGNS: Blood pressure was noted to be 138/86, pulse rate 99, RR 20, temperature 36.9 and sats 95 on room air. GENERAL: Noted to be uncomfortable, chronically ill. No respiratory distress. SKIN: Pallor. HEENT: Partial alopecia. Pale palpebral conjunctivae. Dry mucosa. NECK: No JVD. Supple. CHEST: Decreased breath sounds. HEART: Regular rate and rhythm. ABDOMEN: Abdominal distention, protuberant umbilicus and ant abd bulge, some tenderness. EXTREMITIES: Minimal LE edema. no tenderness NEUROLOGIC: No gross focality. LABORATORIES: Hemoglobin 9.2, hematocrit 27, white cell count is 8.8, platelets 91. Sodium 138, potassium 3.2, chloride 105, CO2 26, BUN 12, creatinine 1.1 and glucose 120. ammonia 61 Hemoglobin A1c from March 2016 was 11.6. ASSESSMENT: 1. Acute on chronic abdominal pain on home narcotics Recurrent admissions for recurrent ascites despite px claims of compliance w/ dietary restrictions and home meds cirrhosis 2 to NAFLD question of spontaneous bacterial peritonitis, no sepsis. Rule out incarcerated hernia given px complaints of "different" abd pain 2. Hypertension, stable. 3. DM2, insulin requiring, suboptimal control as of recent HgA1c. 4. Hypokalemia, secondary to diuretic therapy. 5. Chronic anemia, thrombocytopenia 2 cirrhosis. Hemoglobin at baseline. 6. History of pulmonary embolism, status post IVC filter 7. seizure dso, stable on meds 8. chronic pain on narcotics (px has manifested drug-seeking behavior during previous confinements e.g. previous request for his home Dilaudid tablets to be given IV whenever he's hospitalized because of his "bad teeth") PLAN: Observation [facility] judicious narcotic use CT abdomen and pelvis RE worsening abd pain Further management pending CT results continue home diuretics for ascites. Replace potassium. Check mag. Basal insulin, ISS BG goal 140-180. carb count coverage indicated for suboptimal BG control DVT prophylaxis, SCDs. RE thrombocytopenia Full code. ADDENDUM : CT abd pelvis initial read : ascites, splenomegaly, cirrhosis, cholelithiasis change to full admission for recurrent ascites dx/tx paracentesis GI consult RE recurrent ascites, rapid re-accumulation given px claimed compliance Hospital Course This is a 61 year old male with PMH of BETANCOURT/end stage liver disease, liver cirrhosis, recurrent ascites, thrombocytopenia, esophageal varices, chronic pain and long-term narcotic use, hx. of PE s/p IVC filter - presents with recurrent abdominal pain, recurrent ascites Recurrent Ascites End Stage Liver Disease secondary to BETANCOURT s/p therapeutic paracentesis on 04/27 - 10.6L removed presented to the hospital again with recurrent ascites repeat paracentesis performed on 05/05 - another 8L removed unsure if patient is compliant with medications at home should follow with hepatology specialist continue home medications which include Lasix/Aldactone continue Rifaximin and Lactulose Low Na diet and Fluid restriction in place Chronic Anemia stable Chronic Thrombocytopenia Avoid ASA, heparin when possible Chronic Pain and Long-term Narcotic Use continue home pain medications should f/u with outpatient pain management DM2 Increased Lantus to 15 units BID Insulin sliding scale coverage A1c 11.6 on 04/03/16-very poorly controlled CKD stage 3 Creat is stable Avoid nephrotoxins Seizure Disorder Continue Keppra Hx. of PE S/p IVC filter Not on anticoagulation due to thrombocytopenia/ bleeding risk CT chest shows no evidence of PE DVT ppx SCD's due to thrombocytopenia FULL CODE Total time spent on discharge = 35 minutes This includes examination of the patient, discharge planning, medication reconciliation, and communication with other providers. Discharge Instructions Please follow-up with Dr. Munoz on May 08 @ 11:10AM * Please stay compliant with all of your medications
[2016-05-06 11:20] VITALS: BP 109/69; PULSE 58; TEMP 36.8; O2SAT 95
--- NOTE | 2016-05-06 13:01 | Gastroenterology Progress Note ---
Progress Note Date of Service: May 06, 2016 Subjective Pt evaluation today including: conversation w/ patient The patient underwent a paracentesis yesterday with removal of approximately 8 L of fluid. He notes his abdominal distention is better although he does have. Epigastric discomfort. Review of Systems Constitutional: No fever, No sweats Respiratory: No cough, No wheezing Cardiac: No PND, No chest pain, No palpitations Medications Current Inpatient Medications Medications (Trade) Dose Ordered Sig/Ryan Route Start Time Stop Time Status Last Admin Dose Admin Hydromorphone HCl (Dilaudid Tab) 4 mg Q8H PRN PO 05/05/16 04:30 05/19/16 04:29 05/06/16 08:41 4 MG Ioversol (Optiray 320) 100 ml UD PRN IV 05/05/16 05:00 05/09/16 04:59 Lactulose (Chronulac Syrup) 20 gm TID PO 05/05/16 09:00 06/04/16 08:59 05/06/16 07:57 20 GM Rifaximin (Xifaxan Tab) 550 mg AMHS PO 05/05/16 21:00 06/04/16 20:59 05/06/16 07:58 550 MG Insulin Aspart (novoLOG ASPART) SLIDING SCALE If C... ACHS SC 05/05/16 07:00 06/04/16 06:59 05/06/16 12:14 8 UNITS Glucose (Glucose 40% Gel) 15-30 GRAMS 15 GRAMS... UD PRN PO 05/05/16 06:30 06/04/16 06:29 Glucose (Glucose Chew Tab) 4-8 Tablets 4 Tabl... UD PRN PO 05/05/16 06:30 06/04/16 06:29 Dextrose (Dextrose 50% 50ML Syringe) 25-50ML OF 50% DW IV FOR... UD PRN IV 05/05/16 06:30 06/04/16 06:29 Glucagon (Glucagon Inj) 1 mg UD PRN SQ 05/05/16 06:30 06/04/16 06:29 Ondansetron HCl 4 mg 4 mg Q6H PRN IV 05/05/16 06:30 06/04/16 06:29 05/05/16 16:07 4 MG Promethazine HCl/ Sodium Chloride (Phenergan Inj/ Nss 50ml) 50.5 ml @ 204 mls/hr Q6H PRN IV 05/05/16 06:30 06/04/16 06:29 Escitalopram Oxalate (Lexapro Tab) 10 mg DAILY PO 05/05/16 09:00 06/04/16 08:59 05/06/16 07:58 10 MG Furosemide (Lasix Tab) 20 mg BID PO 05/06/16 09:00 06/05/16 08:59 05/06/16 07:58 20 MG Levetiracetam (Keppra Tab) 500 mg AMHS PO 05/05/16 09:00 06/04/16 08:59 05/06/16 07:57 500 MG Levothyroxine Sodium (Synthroid Tab) 75 mcg DAILYBB PO 05/05/16 09:00 06/04/16 08:59 05/06/16 05:41 75 MCG Pantoprazole Sodium (Protonix Tab) 40 mg BID PO 05/05/16 09:00 06/04/16 08:59 05/06/16 07:58 40 MG Pregabalin (Lyrica Cap) 75 mg TID PO 05/05/16 09:00 06/04/16 08:59 05/06/16 07:58 75 MG Propranolol HCl (Inderal Tab) 10 mg BID PO 05/05/16 09:00 06/04/16 08:59 05/06/16 07:57 10 MG Spironolactone (Aldactone Tab) 100 mg DAILY PO 05/06/16 09:00 06/05/16 08:59 05/06/16 07:57 100 MG Ferrous Sulfate (Feosol Tab) 325 mg BID PO 05/05/16 09:00 06/04/16 08:59 05/06/16 07:57 325 MG Hydroxyzine HCl (Vistaril Tab) 10 mg Q6H PRN PO 05/05/16 06:45 06/04/16 06:44 05/06/16 03:20 10 MG Insulin Glargine (Lantus Solostar Pen) 15 unit BID SC 05/06/16 21:00 06/05/16 20:59 Objective Vital Signs Date Time Temp Pulse Resp B/P Pulse Ox O2 Delivery O2 Flow Rate FiO2 05/06/16 11:20 36.8 58 20 95 Room Air 05/06/16 10:08 Room Air 05/06/16 07:53 36.8 58 20 109/69 95 Room Air 05/06/16 00:44 36.7 57 20 92/52 98 Room Air 05/05/16 23:30 Room Air 05/05/16 18:03 62 109/65 05/05/16 16:00 100 Room Air 05/05/16 15:48 60 111/66 100 Room Air 05/05/16 14:23 36.6 60 90/52 97 Room Air 05/05/16 13:54 36.5 60 20 100/59 97 05/05/16 13:28 57 108/67 Physical Exam General Appearance: no apparent distress Eyes: PERRL Neck: no JVD Respiratory/Chest: lungs clear Cardiovascular: no murmur Abdomen: soft, + distended (mild distention with a reducible umbilical hernia) Neurologic/Psych: oriented x 3 Laboratory Results Last 24 Hours Test 05/05/16 16:41 05/05/16 19:45 05/06/16 07:35 05/06/16 07:36 Bedside Glucose 160 mg/dl 195 mg/dl 251 mg/dl White Blood Count 4.01 K/uL Red Blood Count 4.11 M/uL Hemoglobin 9.7 g/dL Hematocrit 30.7 % Mean Corpuscular Volume 74.7 fL Mean Corpuscular Hemoglobin 23.6 pg Mean Corpuscular Hemoglobin Concent 31.6 g/dl Platelet Count 60 K/uL RDW Standard Deviation 57.5 fL RDW Coefficient of Variation 21.0 % Neutrophils % (Manual) 69.8 % Lymphocytes % (Manual) 13.3 % Monocytes % (Manual) 12.4 % Eosinophils % (Manual) 1.8 % Basophils % (Manual) 2.7 % Neutrophils # (Manual) 2.80 K/uL Total Absolute Neutrophils 2.80 K/uL Lymphocytes # (Manual) 0.53 K/uL Total Absolute Lymphocytes 0.53 K/uL Monocytes # (Manual) 0.50 K/uL Eosinophils # (Manual) 0.07 K/uL Basophils # (Manual) 0.11 K/uL Platelet Estimate DECREASED Anisocytosis PRESENT Test 05/06/16 08:17 05/06/16 11:55 Sodium Level 137 mmol/L Potassium Level 4.5 mmol/L Chloride Level 104 mmol/L Carbon Dioxide Level 24 mmol/L Anion Gap 9.0 mmol/L Blood Urea Nitrogen 10 mg/dl Creatinine 0.98 mg/dl Est Creatinine Clear Calc Drug Dose 85.8 ml/min Estimated GFR () 95.4 Estimated GFR (Non- 82.3 BUN/Creatinine Ratio 10.5 Random Glucose 277 mg/dl Calcium Level 7.6 mg/dl Ammonia 85.0 umol/L Bedside Glucose 309 mg/dl Assessment and Plan Patient with a history of cirrhosis manifest by ascites and a history of hepatic encephalopathy. His meld score is very low and he is presently not eligible for liver transplant listing. Given his refractory ascites I would suggest that the patient be referred to hepatology subspecialist to determine if a TIPS procedure should be considered in his case. Recommendations Low-sodium diet Continue with present diuretics Please refer patient to hepatology at [facility] for an opinion with regard to TIPS
[2016-05-06] MEDS ORDERED: INSULIN GLARGINE SOLOSTAR 100 UNITS/ML 3 ML PEN SC SCH (21:00)
[2016-05-23] MEDS ORDERED: HYDR4TAB78 PO (09:03)
[2016-07-01] MEDS ORDERED: MAGN400T5 PO (01:36)
[2016-07-01] MEDS ORDERED: DIPH50TA10 PO (02:00)
[2016-07-01] MEDS ORDERED: TRMCR130WC EXT (03:58)
[2016-07-01] MEDS ORDERED: LACT10SO17 PO (04:04)
[2016-07-01] MEDS ORDERED: PYRI25TA9 PO (04:52)
[2016-07-01] MEDS ORDERED: PROP10TA7 PO (04:52)
[2016-07-01] MEDS ORDERED: FURO-85 PO (05:55)
[2016-07-01] MEDS ORDERED: ONDA4TAB10 SL (12:02)
[2016-07-01] MEDS ORDERED: LEVO75TA PO (12:02)
[2016-07-01] MEDS ORDERED: RIFA550T2 PO (13:45)
[2016-07-01] MEDS ORDERED: FERR1TAB13 PO (14:58)
[2016-07-01] MEDS ORDERED: LEVE500T PO (16:08)
[2016-07-01] MEDS ORDERED: INSDGI SC (16:08)
[2016-08-22] MEDS ORDERED: INSDGI SC (09:03)
[2016-08-22] MEDS ORDERED: MRLP17 PO (09:03)
[2016-08-29] MEDS ORDERED: POLY335019 PO (12:27)
[2016-08-29] MEDS ORDERED: INSDGI SC (12:27)
[2016-09-18] MEDS ORDERED: DIPH25CA5 PO (10:22)
[2016-10-28] MEDS ORDERED: XFX550 PO (14:18)
[2016-11-06] MEDS ORDERED: CLIN300C2 PO (14:29)
[2016-11-06] MEDS ORDERED: LCTX PO (14:29)
[2016-11-18] MEDS ORDERED: CLIN300C2 PO (10:23)
[2016-11-23] MEDS ORDERED: MOML PO (07:52)
[2016-11-23] MEDS ORDERED: SODIENE PR (07:52)
[2016-11-23] MEDS ORDERED: DOCU100C31 PO (07:52)
[2016-11-23] MEDS ORDERED: SENN-65 PO (07:52)
[2016-11-23] MEDS ORDERED: BISA10SU7 PR (07:52)
[2016-11-23] MEDS ORDERED: [UNRECOGNIZED DRUG - CODE] PO (07:54)
[2016-11-23] MEDS ORDERED: GLGKIT SC (07:54)
== END 2016-05-06 14:39 | disposition home health service (06) | DRG 433 ==
LOC: ENRESERVTM → ENRESERVDT → EDBD 22:24 → C.EDB 22:27 → C.MS2W 05-05 06:04
PROVIDERS: ADMIT Internal Medicine; ATTEND Family Medicine
PROC: 0W9G3ZX Drainage of Peritoneal Cavity, Percutaneous Approach, Diagnostic (ICD-10-PCS; 2016-04-27)
PROC: 0W9G3ZX Drainage of Peritoneal Cavity, Percutaneous Approach, Diagnostic (ICD-10-PCS; principal; 2016-05-04)
DX: K74.60 Unspecified cirrhosis of liver (principal); R18.8 Other ascites; K75.81 Nonalcoholic steatohepatitis (NASH); E87.6 Hypokalemia; E87.70 Fluid overload, unspecified; G89.29 Other chronic pain; R10.9 Unspecified abdominal pain; E11.65 Type 2 diabetes mellitus with hyperglycemia; I12.9 Hypertensive chronic kidney disease with stage 1 through stage 4 chronic kidney disease, or unspecified chronic kidney disease; N18.3 Chronic kidney disease, stage 3 (moderate); D64.9 Anemia, unspecified; D69.59 Other secondary thrombocytopenia; E78.5 Hyperlipidemia, unspecified; E03.9 Hypothyroidism, unspecified; G40.909 Epilepsy, unspecified, not intractable, without status epilepticus; F41.9 Anxiety disorder, unspecified; F32.9 Major depressive disorder, single episode, unspecified; Z86.711 Personal history of pulmonary embolism; Z98.1 Arthrodesis status; Z96.659 Presence of unspecified artificial knee joint; Z79.4 Long term (current) use of insulin; Z79.891 Long term (current) use of opiate analgesic; Z79.899 Other long term (current) drug therapy; K72.90 Hepatic failure, unspecified without coma; R07.89 Other chest pain; D69.6 Thrombocytopenia, unspecified; E11.9 Type 2 diabetes mellitus without complications; Z86.718 Personal history of other venous thrombosis and embolism; Z82.49 Family history of ischemic heart disease and other diseases of the circulatory system

== ENCOUNTER 2016-05-08 11:55 | Emergency (ER) | payer OTHER ==
[~2016-05-08] VITALS: Ht 182.9 cm; Wt 78.0 kg
[2016-05-08 12:04] VITALS: Ht 182.9 cm; Wt 78.0 kg
[2016-05-08] MEDS ORDERED: METOCLOPRAMIDE HCL INJ 5 MG/ML 2 ML VIAL IV STA (12:44)
[2016-05-08] MEDS ORDERED: HYDROmorphone INJ 1 MG/ML SYR IV STA (12:44)
[2016-05-08] MEDS ORDERED: SODIUM CHLORIDE 0.9% 500ML 500 ML IV STA (12:44)
--- NOTE | 2016-05-08 12:48 | EMERGENCY ROOM VISIT NOTE ---
History Report prepared by Alla: No Schilling Under the Supervision of: Dr. Paul Winkler M.D. 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 He currently rates his discomfort as a 7/10 in severity. The patient states that he has a history of liver failure and states that he was recently evaluated in the hospital until Sunday with fluid retention. He states that he had 8 liters of fluid taken from his abdomen on Sunday, but states that since he has now gained 5 lbs overnight. The patient associates nausea with his increased abdominal pain. He states that his doctors have been in the process of setting him up with a sewer bricklayer in [place] for further treatment and evaluation. Source of History: patient Onset: prior to arrival Position: abdomen Symptom Intensity: 7/10 Timing: other (persistent) Associated Symptoms: + nausea Note: Associated Symptoms: weight gain of 5 lbs since Sunday Review of Systems See HPI for pertinent positives & negatives. A total of 10 systems reviewed and were otherwise negative. 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 Surgical Problems: (1) H/O esophagogastroduodenoscopy (2) H/O knee surgery (3) S/P cervical spinal fusion (4) S/P IVC filter (5) S/P lumbar fusion (6) S/P T&A (status post tonsillectomy and adenoidectomy) Family History FH: CAD (coronary artery disease) FATHER FH: breast cancer MOTHER Social History Smoking Status: Never Smoker Alcohol Use: none Drug Use: none Marital Status: single Housing Status: lives alone Occupation Status: retired Current/Historical Medications Scheduled Escitalopram (Lexapro), 10 MG PO DAILY Ferrous Sulfate (Kp Ferrous Sulfate), 1 TAB PO BID Furosemide (Lasix), 20 MG PO BID Insulin Aspart (Novolog Penfill), SQ TIDM Insulin Glargine (Lantus), 32 UNITS SC HS Lactulose (Chronulac), 20 GM PO TID Levetiractam (Levetiracetam), 500 MG PO AMHS Levothyroxine Sodium (Synthroid), 75 MCG PO DAILY Magnesium Oxide (Mag-Ox), 400 MG PO BID Pantoprazole (Protonix), 40 MG PO BID Pregabalin (Lyrica), 75 MG PO TID Propranolol (Inderal), 10 MG PO BID Pyridoxine Hcl (Vitamin B-6), 25 MG PO HS Rifaximin (Xifaxan), 550 MG PO AMHS Spironolactone (Aldactone), 1 TAB PO DAILY Scheduled PRN Diphenhydramine HCl (Diphenhydramine HCl), 25 MG PO BID PRN for itching/rash Hydromorphone Hcl (Dilaudid), 4 MG PO Q8 PRN for Pain Ondasetron Odt (Zofran Odt), 4 MG SL Q6H PRN for Nausea or Vomiting Triamcinolone Acet (Aristocort 0.1%), 1 APPL EXT BID PRN for dermatitis Allergies Coded Allergies: Acetaminophen (Verified Allergy, Severe, ESLD (BETANCOURT). on Liver transplant list. Cannot have APAP., 05/08/16) NSAIDs (Verified Allergy, Severe, DUE TO LIVER DISEAS, 05/08/16) Penicillins (Verified Allergy, Severe, JOINT SWELLING AND FEVER, 05/08/16) Levofloxacin (Verified Allergy, Mild, RASH, 05/08/16) pt developed erythema at site of IV injection with itching Vancomycin (Verified Allergy, Mild, HIVES, 05/08/16) HIVES Tramadol (Verified Allergy, Unknown, NOT TO TAKE WITH KEPPRA DUE TO SEIZURE RISK, 05/08/16) Physical Exam Vital Signs Date Time Temp Pulse Resp B/P Pulse Ox O2 Delivery O2 Flow Rate FiO2 05/08/16 21:20 62 18 95/61 98 05/08/16 20:44 62 18 96/62 100 Room Air 05/08/16 19:41 79 20 94/42 96 Room Air 05/08/16 19:08 56 18 107/64 100 Room Air 05/08/16 18:14 36.8 64 16 100/63 99 05/08/16 17:49 36.7 56 16 101/68 97 Room Air 05/08/16 17:39 57 05/08/16 17:29 36.7 67 18 102/64 99 Room Air 05/08/16 15:03 65 16 115/75 97 05/08/16 13:04 63 16 106/70 100 05/08/16 12:35 64 05/08/16 12:04 36.8 62 22 115/61 97 Room Air Physical Exam GENERAL: Patient is a healthy-appearing well-nourished HEAD: Normocephalic atraumatic EYES: Ocular movements intact pupils equal and react to light OROPHARYNX mucous membranes are moist no exudates present no erythema or edema present NECK: Supple no nuchal rigidity CHEST: Good equal expansion LUNGS: Clear and equal to auscultation CARDIAC: Normal S1 and S2 ABDOMEN: Distended, diffusely tender on examination. Soft no guarding BACK: No CVA tenderness EXTREMITIES: No pain upon palpation normal muscle strength in all groups no clubbing cyanosis or edema NEURO: Patient is following commands is answering questions appropriately. Alert and oriented x3 Cranial Nerves 2-12 grossly intact m Medical Decision & Procedures ER Provider Diagnostic Interpretation: US results as stated below per my review and radiologist interpretation: PARACENTESIS UNDER ULTRASOUND GUIDANCE CLINICAL HISTORY: Ascites COMPARISON STUDY: 05/05/2016 FINDINGS: The risks, benefits, and alternatives to the procedure were discussed with the patient. Written informed consent was obtained. Following real-time ultrasound localization, the skin was prepped and draped. Following local anesthesia with Xylocaine, the sheath paracentesis needle was inserted and approximately 7 liters of straw-colored fluid was removed by vacuum suction. A left lower quadrant approach was utilized. The patient tolerated the procedure well and left the department in satisfactory condition. IMPRESSION: Successful ultrasound-guided paracentesis with removal of approximately 7 liters of ascitic fluid. Electronically signed by: Pawan Garner M.D. 05/08/2016 4:45 PM Dictated Date/Time: 05/08/2016 4:45 PM Laboratory Results 05/08/16 13:15 Red Blood Count 4.19, Mean Corpuscular Volume 73.7, Mean Corpuscular Hemoglobin 23.6, Mean Corpuscular Hemoglobin Concent 32.0, Neutrophils (%) (Auto) 77.7, Lymphocytes (%) (Auto) 9.0, Monocytes (%) (Auto) 10.5, Eosinophils (%) (Auto) 2.1, Basophils (%) (Auto) 0.6, Neutrophils # (Auto) 6.35, Lymphocytes # (Auto) 0.74, Monocytes # (Auto) 0.86, Eosinophils # (Auto) 0.17, Basophils # (Auto) 0.05 05/08/16 13:15 Test 05/08/16 12:35 05/08/16 13:15 Urine Color YELLOW Urine Appearance CLEAR (CLEAR) Urine pH 5.0 (4.5-7.5) Urine Specific [place] 1.011 (1.000-1.030) Urine Protein NEG (NEG) Urine Glucose (UA) 2+ (NEG) Urine Ketones NEG (NEG) Urine Occult Blood NEG (NEG) Urine Nitrite NEG (NEG) Urine Bilirubin NEG (NEG) Urine Urobilinogen NEG (NEG) Urine Leukocyte Esterase NEG (NEG) White Blood Count 8.18 K/uL (4.8-10.8) Red Blood Count 4.19 M/uL (4.7-6.1) Hemoglobin 9.9 g/dL (14.0-18.0) Hematocrit 30.9 % (42-52) Mean Corpuscular Volume 73.7 fL (80-100) Mean Corpuscular Hemoglobin 23.6 pg (25-34) Mean Corpuscular Hemoglobin Concent 32.0 g/dl (32-36) Platelet Count 62 K/uL (130-400) Neutrophils (%) (Auto) 77.7 % Lymphocytes (%) (Auto) 9.0 % Monocytes (%) (Auto) 10.5 % Eosinophils (%) (Auto) 2.1 % Basophils (%) (Auto) 0.6 % Neutrophils # (Auto) 6.35 K/uL (1.4-6.5) Lymphocytes # (Auto) 0.74 K/uL (1.2-3.4) Monocytes # (Auto) 0.86 K/uL (0.11-0.59) Eosinophils # (Auto) 0.17 K/uL (0-0.5) Basophils # (Auto) 0.05 K/uL (0-0.2) RDW Standard Deviation 57.2 fL (36.4-46.3) RDW Coefficient of Variation 21.0 % (11.5-14.5) Immature Granulocyte % (Auto) 0.1 % Immature Granulocyte # (Auto) 0.01 K/uL (0.00-0.02) Platelet Estimate DECREASED Anisocytosis PRESENT Microcytosis PRESENT Acanthocytes 1+ Anion Gap 11.0 mmol/L (3-11) Est Creatinine Clear Calc Drug Dose 84.1 ml/min Estimated GFR () 93.1 Estimated GFR (Non- 80.3 BUN/Creatinine Ratio 7.6 (10-20) Calcium Level 8.1 mg/dl (8.5-10.1) Total Bilirubin 1.0 mg/dl (0.2-1) Direct Bilirubin 0.4 mg/dl (0-0.2) Aspartate Amino Transf (AST/SGOT) 33 U/L (15-37) Alanine Aminotransferase (ALT/SGPT) 29 U/L (12-78) Alkaline Phosphatase 130 U/L (45-117) Total Protein 5.6 gm/dl (6.4-8.2) Albumin 3.0 gm/dl (3.4-5.0) Lipase 160 U/L (73-393) Labs reviewed by ED physician. Medications Administered Medications (Trade) Dose Ordered Sig/Ryan Route Start Time Stop Time Status Last Admin Dose Admin Hydromorphone HCl (Dilaudid Inj) 1 mg NOW STAT IV 05/08/16 12:44 05/08/16 12:47 DC 05/08/16 12:58 1 MG Metoclopramide HCl 10 mg 10 mg NOW STAT IV 05/08/16 12:44 05/08/16 12:47 DC 05/08/16 13:03 10 MG Sodium Chloride (Nss 500ml) 500 ml @ 999 mls/hr Q31M STAT IV 05/08/16 12:44 05/08/16 13:14 DC 05/08/16 12:59 999 MLS/HR Albumin Human (Albumin 25%) 12.5 gm NOW STAT IV 05/08/16 16:45 05/08/16 16:46 DC 05/08/16 17:52 12.5 GM Albumin Human (Albumin 25%) 12.5 gm NOW STAT IV 05/08/16 16:48 05/08/16 16:50 DC 05/08/16 19:00 12.5 GM Albumin Human (Albumin 25%) 12.5 gm NOW STAT IV 05/08/16 16:51 05/08/16 16:53 DC 05/08/16 19:12 12.5 GM Albumin Human (Albumin 25%) 12.5 gm NOW STAT IV 05/08/16 16:51 05/08/16 16:53 DC 05/08/16 19:27 12.5 GM Albumin Human (Albumin 25%) 12.5 gm NOW STAT IV 05/08/16 17:18 05/08/16 17:20 DC 05/08/16 19:38 12.5 GM Albumin Human (Albumin 25%) 12.5 gm NOW STAT IV 05/08/16 17:18 05/08/16 17:20 DC 05/08/16 19:53 12.5 GM Albumin Human (Albumin 25%) 12.5 gm ONE STAT IV 05/08/16 17:18 05/08/16 17:20 DC 05/08/16 20:09 12.5 GM Albumin Human (Albumin 25%) 12.5 gm NOW STAT IV 05/08/16 17:18 05/08/16 17:20 DC 05/08/16 21:00 12.5 GM Ferrous Sulfate (Feosol Tab) 325 mg HS STAT PO 05/08/16 17:42 05/08/16 17:52 DC 05/08/16 19:01 325 MG Hydromorphone HCl 1 mg 1 mg Q3HWA PRN IV 05/08/16 17:45 05/08/16 21:42 DC 05/08/16 19:08 1 MG Furosemide/Syringe (Lasix Inj/ Syringe) 2 ml @ 4 mls/min NOW STAT IV 05/08/16 17:42 05/08/16 17:52 DC 05/08/16 19:38 4 MLS/MIN Levetiracetam (Keppra Tab) 500 mg HS STAT PO 05/08/16 17:42 05/08/16 17:52 DC 05/08/16 19:00 500 MG Propranolol HCl (Inderal Tab) 10 mg NOW STAT PO 05/08/16 17:42 05/08/16 17:52 DC 05/08/16 19:01 10 MG Pantoprazole Sodium (Protonix Tab) 40 mg NOW STAT PO 05/08/16 17:42 05/08/16 17:52 DC 05/08/16 19:00 40 MG Lactulose (Chronulac Syrup) 20 gm NOW ONCE PO 05/08/16 18:15 05/08/16 18:16 DC 05/08/16 19:01 20 GM ED Course 1241: Past medical records reviewed. The patient was evaluated in room C10. A complete history and physical examination was performed. 1244: Ordered Sodium Chloride 500 ml @ 999 mls/hr IV, Reglan Inj 10 mg IV, Dilaudid Inj 1 mg IV. 1335: I reevaluated the patient and he is resting comfortably. 1410: I discussed the patients case with Dr. Weston, Radiology. He will drain the patients abdomen. 1645: Ordered Albumin Human 12.5 gm IV. 1648: Ordered Albumin Human 12.5 gm IV. 1649: I discussed the patients case with Beti Alex, General Surgery [employer]K [employer]ISH[employer]. She states that the patient should be given Albumin and then discharged home. 1651: Ordered Albumin Human 12.5 gm IV, Albumin Human 12.5 gm IV. 1654: I reevaluated the patient and he is resting comfortably. He is in agreement with the treatment plan. 1718: Ordered Albumin Human 12.5 gm IV, Albumin Human 12.5 gm IV, Albumin Human 12.5 gm IV, Albumin Human 12.5 gm IV. Medical Decision Differential diagnosis: Etiologies such as appendicitis, diverticulitis, PUD, biliary pathology, UTI, pancreatitis, obstruction, mesenteric ischemia, aortic pathology, infections, inflammatory bowel disease, renal colic, as well as others were entertained. This is a 61-year-old male who presents emergency department complaining of collection of his ascites. The patient was just admitted to the hospital for a paracentesis. I did discuss the case with gastroenterology who asked that a repeat paracentesis be performed. The case was then discussed with radiology who performed the paracentesis. Unfortunately samples were not collected for culture results. An IV was established, the patient was given Dilaudid, Zofran. Repeat examination revealed improvement patient's symptoms. The patient has no evidence of infection on examination his albumin was repleted in the emergency department. The patient was given his evening meds. I feel that the patient was well enough to be discharged. Patient was in agreement with the treatment plan. Consults Time Called: 1409 Consulting Physician: Dr. Weston, Radiology Returned Call: 1410 I discussed the patients case with Dr. Weston, Radiology. He will drain the patients abdomen. Additional Consults: Time Called: 1647 Consulted Physician: Beti Alex General Surgery MAYI Returned Call: 1640 Additional Comments: I discussed the patients case with Beti Alex General Surgery [employer]. She states that the patient should be given Albumin and then discharged home. Impression Primary Impression: Ascites Scribe Attestation The scribe's documentation has been prepared under my direction and personally reviewed by me in its entirety. I confirm that the note above accurately reflects all work, treatment, procedures, and medical decision making performed by me. Departure Information Dispostion Home / Self-Care Referrals Chacha Munoz D.O. (PCP) Patient Instructions My [facility] Problem Qualifiers Primary Impression: Ascites Ascites type: other type Qualified Codes: R18.8 - Other ascites
[2016-05-08 13:16] LABS: URINE APPEARANCE CLEAR (CLEAR); URINE BILIRUBIN NEG (NEG); URINE COLOR YELLOW; URINE NITRITE NEG (NEG); URINE SPECIFIC GRAVITY 1.011 (1.000-1.030); UROBILINOGEN NEG (NEG)
[2016-05-08 13:19] LABS: MANUAL MICROSCOPIC REQUIRED? NO; REVIEW REQ? NO
[2016-05-08 13:35] LABS: HEMATOCRIT 30.9 % (42-52); MEAN CELL VOLUME 73.7 fL (80-100); MEAN CORPUSCULAR HEMOGLOBIN 23.6 pg (25-34); RED BLOOD COUNT 4.19 M/uL (4.7-6.1); WHITE BLOOD COUNT 8.18 K/uL (4.8-10.8)
[2016-05-08 13:47] LABS: BUN/CREATININE RATIO 7.6 (10-20); CALCIUM 8.1 mg/dl (8.5-10.1); PLATELET COUNT 62 K/uL (130-400); POTASSIUM 3.9 mmol/L (3.5-5.1)
[2016-05-08 13:48] LABS: ACANTHOCYTES 1+; ANISOCYTOSIS PRESENT; BASO % 0.6 %; BASO ABS # 0.05 K/uL (0-0.2); COMPLETE YES; EOS % 2.1 %; IG% 0.1 %; LYMPH ABS # 0.74 K/uL (1.2-3.4); MICROCYTOSIS PRESENT; MONO % 10.5 %; NEUT % 77.7 %; PLT ESTIMATE DECREASED
[2016-05-08] MEDS ORDERED: ALBUMIN HUMAN 25% 12.5 GM/50 ML VIAL IV STA ×8 (16:45→17:18)
--- NOTE | 2016-05-08 16:46 | DIAGNOSTIC IMAGING REPORT ---
PARACENTESIS UNDER ULTRASOUND GUIDANCE CLINICAL HISTORY: Ascites COMPARISON STUDY: 05/05/2016 FINDINGS: The risks, benefits, and alternatives to the procedure were discussed with the patient. Written informed consent was obtained. Following real-time ultrasound localization, the skin was prepped and draped. Following local anesthesia with Xylocaine, the sheath paracentesis needle was inserted and approximately 7 liters of straw-colored fluid was removed by vacuum suction. A left lower quadrant approach was utilized. The patient tolerated the procedure well and left the department in satisfactory condition. IMPRESSION: Successful ultrasound-guided paracentesis with removal of approximately 7 liters of ascitic fluid. Electronically signed by: Pawan Garner M.D. 05/08/2016 4:45 PM Dictated Date/Time: 05/08/2016 4:45 PM
[2016-05-08] MEDS ORDERED: PANTOprazole SOD 40 MG TAB PO STA (17:42)
[2016-05-08] MEDS ORDERED: FERROUS SULFATE 325 MG TAB PO STA (17:42)
[2016-05-08] MEDS ORDERED: PROPRANOLOL HCL 10 MG TAB PO STA (17:42)
[2016-05-08] MEDS ORDERED: FUROSEMIDE INJ 20 MG in SYRINGE 0 ML IV STA (17:42)
[2016-05-08] MEDS ORDERED: LACTULOSE SYRUP 10 GM/15 ML BTL 473 ML PO STA (17:42)
[2016-05-08] MEDS ORDERED: LEVETIRACETAM 500 MG TAB PO STA (17:42)
[2016-05-08] MEDS ORDERED: ONDANSETRON INJ 2 MG/ML 2 ML VIAL IV PRN (17:45)
[2016-05-08] MEDS ORDERED: HYDROmorphone INJ 1 MG/ML SYR IV PRN (17:45)
[2016-05-08 18:14] VITALS: TEMP 36.8
[2016-05-08] MEDS ORDERED: LACTULOSE SYRUP 20 GM/30 ML UDC PO ONE (18:15)
[2016-05-08] MEDS ORDERED: ALBUMIN HUMAN 25% 12.5 GM/50 ML VIAL IV ONE (18:57)
[2016-05-08] MEDS ORDERED: PREGABALIN 75 MG CAP PO SCH (21:00)
[2016-05-08 21:20] VITALS: BP 95/61; PULSE 62; O2SAT 98
[2016-05-23] MEDS ORDERED: HYDR4TAB78 PO (09:03)
[2016-07-01] MEDS ORDERED: MAGN400T5 PO (01:36)
[2016-07-01] MEDS ORDERED: DIPH50TA10 PO (02:00)
[2016-07-01] MEDS ORDERED: TRMCR130WC EXT (03:58)
[2016-07-01] MEDS ORDERED: LACT10SO17 PO (04:04)
[2016-07-01] MEDS ORDERED: PYRI25TA9 PO (04:52)
[2016-07-01] MEDS ORDERED: PROP10TA7 PO (04:52)
[2016-07-01] MEDS ORDERED: FURO-85 PO (05:55)
[2016-07-01] MEDS ORDERED: ONDA4TAB10 SL (12:02)
[2016-07-01] MEDS ORDERED: LEVO75TA PO (12:02)
[2016-07-01] MEDS ORDERED: RIFA550T2 PO (13:45)
[2016-07-01] MEDS ORDERED: FERR1TAB13 PO (14:58)
[2016-07-01] MEDS ORDERED: LEVE500T PO (16:08)
[2016-07-01] MEDS ORDERED: INSDGI SC (16:08)
[2016-08-22] MEDS ORDERED: MRLP17 PO (09:03)
[2016-08-22] MEDS ORDERED: INSDGI SC (09:03)
[2016-08-29] MEDS ORDERED: INSDGI SC (12:27)
[2016-08-29] MEDS ORDERED: POLY335019 PO (12:27)
[2016-09-18] MEDS ORDERED: DIPH25CA5 PO (10:22)
[2016-10-28] MEDS ORDERED: XFX550 PO (14:18)
[2016-11-06] MEDS ORDERED: CLIN300C2 PO (14:29)
[2016-11-06] MEDS ORDERED: LCTX PO (14:29)
[2016-11-18] MEDS ORDERED: CLIN300C2 PO (10:23)
[2016-11-23] MEDS ORDERED: SODIENE PR (07:52)
[2016-11-23] MEDS ORDERED: DOCU100C31 PO (07:52)
[2016-11-23] MEDS ORDERED: BISA10SU7 PR (07:52)
[2016-11-23] MEDS ORDERED: SENN-65 PO (07:52)
[2016-11-23] MEDS ORDERED: MOML PO (07:52)
[2016-11-23] MEDS ORDERED: [UNRECOGNIZED DRUG - CODE] PO (07:54)
[2016-11-23] MEDS ORDERED: GLGKIT SC (07:54)
== END 2016-05-08 21:21 | disposition home or self-care (01) ==
LOC: EDBD 11:55 → C.EDC 11:56
DX: R18.8 Other ascites (principal); F41.9 Anxiety disorder, unspecified; F32.9 Major depressive disorder, single episode, unspecified; E11.9 Type 2 diabetes mellitus without complications; K72.90 Hepatic failure, unspecified without coma; E78.5 Hyperlipidemia, unspecified; E03.9 Hypothyroidism, unspecified; Z86.711 Personal history of pulmonary embolism; G40.909 Epilepsy, unspecified, not intractable, without status epilepticus; Z79.4 Long term (current) use of insulin

== ENCOUNTER 2016-05-10 15:13 | Inpatient (IN) | payer OTHER ==
[~2016-05-10] VITALS: Ht 182.9 cm; Wt 71.3 kg
[2016-05-10] MEDS ORDERED: DEXTROSE 50% 50 ML SYR IV PRN (16:15)
[2016-05-10] MEDS ORDERED: PHARMACY GLYCEMIC MGMT CONSULT PRN (16:15)
[2016-05-10] MEDS ORDERED: GLUCOSE 40% GEL 15 GM TUBE PO PRN (16:15)
[2016-05-10] MEDS ORDERED: GLUCAGON FOR INJ 1 MG VIAL SQ PRN (16:15)
[2016-05-10] MEDS ORDERED: GLUCOSE 10 TABS/TUBE PO PRN (16:15)
[2016-05-10 16:20] VITALS: BP 113/52; PULSE 65; TEMP 36.7; O2SAT 99
[2016-05-10] MEDS ORDERED: INSULIN ASPART 100 UNITS/ML 3 ML PEN SC SCH (16:30)
[2016-05-10 16:41] LABS: MEAN CORPUSCULAR HGB CONC 32.3 g/dl (32-36)
[2016-05-10] MEDS ORDERED: TRIAMCINOLONE ACET 0.1% CR 15 GM TUBE EXT PRN (16:45)
[2016-05-10] MEDS ORDERED: ONDANSETRON 4MG OD TAB SL PRN (16:45)
[2016-05-10] MEDS ORDERED: HYDROmorphone HCL 2 MG TAB PO PRN (16:45)
[2016-05-10 16:55] LABS: INR 1.4 (0.9-1.1)
--- NOTE | 2016-05-10 16:57 | History and Physical ---
History & Physical Date & Time of Service: May 10, 2016 at 16:37 Chief Complaint: Bacteria Peritonitis Primary Care Physician: Chacha Munoz D.O. History of Present Illness Source: patient, clinic records, hospital records Patient seen and examined. 61 year old male well known to the hospitalist service with PMHx of Portillo Cirrhosis, HLD, hypothyroidism, thrombocytopenia, IDDM and other problems listed below is seen as a direct admission from for bacterial peritonitis. Patient reports feeling well. Recently patient has had paracentesis on 04/27 with 10L removal, 05/05 with 8L removed, and 05/08 with 7L removed. Today the 05/05 culture was resulted and grew coag negative staph. He was referred to the hospital for further workup and treatment. Patient reports he is feeling well. He came to the ED on 05/08 at which time he reports severe abdominal pain and ascites. He states since the paracentesis on 05/08 he has been feeling pretty good. He states he still has some crampy abdominal pain on occasion. He also reports some headaches this week, but overall feels much better. He denies fevers, chills, URI symptoms, chest pain, SOB, nausea, vomiting, diarrhea, dysuria, calf pain and edema. Unfortunately no cytology/ gram stain were completed on 05/08 ascitic fluid. Admission lab work is pending. 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 (7) HLD (hyperlipidemia) Status: Chronic (8) Hypothyroidism Status: Chronic (9) PORTILLO (nonalcoholic steatohepatitis) Status: Chronic (10) Pericardial effusion Status: Chronic (11) Portal hypertension Status: Chronic (12) Pulmonary embolism Status: Resolved (13) Seizure disorder Status: Chronic (14) Superior mesenteric vein thrombosis Status: Chronic Surgical Problems: (1) H/O esophagogastroduodenoscopy Status: Resolved (2) H/O knee surgery Status: Resolved (3) S/P cervical spinal fusion Status: Resolved (4) S/P IVC filter Status: Resolved (5) S/P lumbar fusion Status: Resolved (6) S/P T&A (status post tonsillectomy and adenoidectomy) Status: Resolved Family History FH: CAD (coronary artery disease) FATHER FH: breast cancer MOTHER Social History Smoking Status: Never Smoker Alcohol Use: none Drug Use: none Marital Status: single Housing status: lives with roommate Occupational Status: retired Immunizations History of Influenza Vaccine: Yes Influenza Vaccine Date: Oct 21, 2014 History of Tetanus Vaccine?: Yes Tetanus Immunization Date: Mar 15, 1972 History of Pneumococcal: Yes Pneumococcal Date: Feb 05, 2009 History of Hepatitis B Vaccine: Yes Hepatitis Immunization Date: June 18, 2013 Multi-Drug Resistant Organisms History of MDRO: No Allergies Coded Allergies: Acetaminophen (Verified Allergy, Severe, ESLD (PORTILLO). on Liver transplant list. Cannot have APAP., 05/08/16) NSAIDs (Verified Allergy, Severe, DUE TO LIVER DISEAS, 05/08/16) Penicillins (Verified Allergy, Severe, JOINT SWELLING AND FEVER, 05/08/16) Levofloxacin (Verified Allergy, Mild, RASH, 05/08/16) pt developed erythema at site of IV injection with itching Vancomycin (Verified Allergy, Mild, HIVES, 05/08/16) HIVES Tramadol (Verified Allergy, Unknown, NOT TO TAKE WITH KEPPRA DUE TO SEIZURE RISK, 05/08/16) Home Medications Scheduled Escitalopram (Lexapro), 10 MG PO DAILY Ferrous Sulfate (Kp Ferrous Sulfate), 1 TAB PO BID Furosemide (Lasix), 20 MG PO BID Insulin Aspart (Novolog Penfill), SQ TIDM Insulin Glargine (Lantus), 32 UNITS SC HS Lactulose (Chronulac), 20 GM PO TID Levetiractam (Levetiracetam), 500 MG PO AMHS Levothyroxine Sodium (Synthroid), 75 MCG PO DAILY Magnesium Oxide (Mag-Ox), 400 MG PO BID Pantoprazole (Protonix), 40 MG PO BID Pregabalin (Lyrica), 75 MG PO TID Propranolol (Inderal), 10 MG PO BID Pyridoxine Hcl (Vitamin B-6), 25 MG PO HS Rifaximin (Xifaxan), 550 MG PO AMHS Spironolactone (Aldactone), 1 TAB PO DAILY Scheduled PRN Diphenhydramine HCl (Diphenhydramine HCl), 25 MG PO BID PRN for itching/rash Hydromorphone Hcl (Dilaudid), 4 MG PO Q8 PRN for Pain Ondasetron Odt (Zofran Odt), 4 MG SL Q6H PRN for Nausea or Vomiting Triamcinolone Acet (Aristocort 0.1%), 1 APPL EXT BID PRN for dermatitis Review of Systems See above for pertinent positives & negatives. A total of 10 systems reviewed and were otherwise negative. Physical Exam General Appearance: + pertinent finding (Pleasant WD/WN 61 year old male lying in bed in NAD ) Head: normocephalic, atraumatic Eyes: PERRL, EOMI, sclerae normal ENT: hearing grossly normal, pharynx normal (poor dentition ) Neck: supple, no JVD Respiratory/Chest: chest non-tender, lungs clear, normal breath sounds, no respiratory distress, no accessory muscle use Cardiovascular: regular rate, rhythm, no edema, no gallop, no JVD, no murmur, normal peripheral pulses Abdomen/GI: normal bowel sounds, non tender, soft, + distended, + hernia ( umbilical) Back: normal inspection, no muscle spasm Extremities/Musculoskelatal: no calf tenderness, normal capillary refill, no pedal edema Neurologic/Psych: alert, oriented x 3, + pertinent finding (no focal deficits ) Skin: normal color, warm/dry, no rash Lymphatic: no adenopathy Diagnostics Laboratory Results Results Past 24 Hours Test 05/10/16 16:02 Range/Units Impression Assessment and Plan 61 year old male presents as a direct admission from GI for positive ascites fluid culture grew coag negative staph BACTERIAL PERITONITIS h/o PORTILLO CIRRHOSIS -Admit to med/surg -patient reports feeling well s/p paracentesis on 05/08. Culture from paracentesis on 05/05 -admission lab works pending -plan for diagnostic and therapeutic paracentesis in AM -will start Rocephin -ID consulted for further management -GI consulted for further management -continue Spirolactone, Lasix -continue Rifaximin, Lactulose -CBC, PRP, Mg in AM CHRONIC ANEMIA -Hgb pending -continue Iron IDDM with hyperglycemia -BSG >600 on arrival -pharmacy consulted for glycemic control. Will start insulin drip for BSG >600 -BSG AC HS -will give cautious IVFs 500cc total at 100cc/hr ANXIETY -continue Lexapro THROMBOCYTOPENIA -repeat pending -avoid anticoagulation/antiplatelet as able HYPOTHYROIDISM -continue Synthroid SEIZURES -continue Keppra H/O PULMONARY EMBOLISM -not a candidate for usp anticoagulation -s/p IVC filter CHRONIC PAIN SYNDROME -follows with pain management - [facility] -continue Dilaudid DVT PROPHYLAXIS: SCDs RE: thrombocytopenia, pending procedure CODE STATUS: FULL CODE DISPO:In my clinical judgment this beneficiary meets acute admission criteria, established by [facility], that includes being hospitalized through two midnights. Patient seen in collaboration with Dr. Fabian I have seen and examined the patient and agree with the plan above with the following exceptions. Active issues include possible SBP--although low WBC and PMNs, there was evidence of rare coag neg staph in the culture drawn 05/05. This was the impetus to bring him in, so that we can empirically cover him and retap his abdomen in the morning. He also underwent therapeutic tap with approx 10L taken off on 05/08, and reports feeling much better today and at his stable, dry weight. ID was consulted--appreciate recommendations to add Dapto. This is an atypical bacteria to be causing SBP as it is more likely from gut nicki such as E coli or Klebsiella, and for this reason and his perky disposition in the presence of no fever, chills or worsening abdominal pain, more likely to be a contaminant. Staph infections are possible, however, making this conservative management reasonable. He did admit to some abdominal tenderness on exam to me today in the epigastric area, which seemed to hurt with guarding even before I touched the skin. Otherwise there was no abdominal rigidity or tenderness with normal bowel sounds as above. Lungs were clear to auscultation and he had no altered mental status and appeared neurologically intact. Initial workup revealed anemia at baseline, coagulopathy and thrombocytopenia (53K) 2/2 chronic liver disease, and hyperglycemia with a blood sugar of 676. He reported taking Novolog 30 Units at 1pm for a blood sugar in the 380s prior to arrival to the floor (at home), and had nothing to eat since that time. He was given an additional 5 Units of insulin IV and placed on a temporary insulin drip. He was also given a small amount of IVF out of concern for osmotic diuresis on top of diuretic effect from his spironolactone/Lasix combination. Plan for paracentesis in the morning-Dr. Weston is aware. Control pain as needed with PO dilaudid as is given at home. cont empiric abx. Yvonne Fabian DO Hospitalist Level of Care Med/Surg Resuscitation Status FULL RESUSCITATION VTE Prophylaxis VTE Risk Assessment Done? Y/N: Yes Risk Level: Moderate Given or contraindicated: Contraindicated
[2016-05-10 17:03] LABS: HEMATOCRIT 27.5 % (42-52); MEAN CELL VOLUME 74.1 fL (80-100); MEAN CORPUSCULAR HEMOGLOBIN 24.3 pg (25-34); PLATELET COUNT 53 K/uL (130-400); RED BLOOD COUNT 3.71 M/uL (4.7-6.1); WHITE BLOOD COUNT 4.44 K/uL (4.8-10.8)
[2016-05-10 17:04] LABS: BASO % 1.1 %; BASO ABS # 0.05 K/uL (0-0.2); COMPLETE YES; EOS % 3.2 %; GIANT PLATELETS 2+; LYMPH % 13.3 %; LYMPH ABS # 0.59 K/uL (1.2-3.4); MONO % 13.7 %; NEUT % 68.7 %; PLT ESTIMATE DECREASED
[2016-05-10 17:10] LABS: ALB/GLOB RATIO 1.4 (0.9-2); ALKALINE PHOSPHATASE 98 U/L (45-117); ALT/SGPT 21 U/L (12-78); AST/SGOT 20 U/L (15-37); BLOOD UREA NITROGEN 12 mg/dl (7-18); BUN/CREATININE RATIO 9.2 (10-20); CALCIUM 7.7 mg/dl (8.5-10.1); CARBON DIOXIDE 24 mmol/L (21-32); CHLORIDE 99 mmol/L (98-107); POTASSIUM 4.3 mmol/L (3.5-5.1); SODIUM 132 mmol/L (136-145)
[2016-05-10 17:11] LABS: GLUCOSE 676 mg/dl (70-99)
[2016-05-10] MEDS ORDERED: CEFTRIAXONE SOD INJ 1 GM in DEXTROSE 5% ADD-VANTAGE 50ML 50 ML IV SCH (17:15)
[2016-05-10] MEDS ORDERED: PATIENT'S HEIGHT AND/OR WEIGHT NEEDED SCH (17:15)
[2016-05-10 17:21] LABS: BETA-HYDROXYBUTYRATE 0.76 mg/dL (0.2-2.81)
[2016-05-10] MEDS ORDERED: SODIUM CHLORIDE 0.9% 1000ML 1,000 ML IV SCH (17:30)
[2016-05-10 17:34] VITALS: BMI 22.3
[2016-05-10] MEDS ORDERED: MODERATE STRESS LEVEL ONE (17:45)
[2016-05-10] MEDS ORDERED: HHS GOAL RANGE 250-350 mg/dl ONE (17:45)
[2016-05-10] MEDS ORDERED: INSULIN REGULAR 5 UNITS in SYRINGE 4.95 ML IV ONE (18:00)
[2016-05-10] MEDS: INSULIN ASPART 100 UNITS/ML 3 ML PEN SC SCH ×2 (18:00→20:38)
[2016-05-10] MEDS ORDERED: INSULIN IV INFUSION PROTOCOL ONE (18:00)
[2016-05-10] MEDS: FERROUS SULFATE 325 MG TAB PO SCH (18:11)
[2016-05-10] MEDS: FUROSEMIDE 20 MG TAB PO SCH (18:11)
[2016-05-10] MEDS: INSULIN REGULAR 250 UNITS in SODIUM CHLORIDE 0.9% 250ML 250 ML IV SCH (18:20)
[2016-05-10] MEDS: CEFTRIAXONE SOD INJ 2,000 MG in DEXTROSE 5% 50ML 50 ML IV SCH (18:41)
[2016-05-10] MEDS ORDERED: INSULIN ASPART 100 UNITS/ML 3 ML PEN SC ONE (18:45)
--- NOTE | 2016-05-10 19:39 | Pharmacy Progress Note ---
Glycemic Control Intl Consult Date of Service May 10, 2016. Scope Glycemic Pharmacist consulted by Rena WINSTON on 05/10/16 for glycemic control and to write orders per [facility] inpatient glycemic control protocol Objective Weight (Kilograms): 74.000 Accuchecks BSG (last 24hrs): Test 05/10/16 16:30 05/10/16 16:38 Random Glucose 676 mg/dl (70-99) Bedside Glucose > 600 mg/dl (70-99) Laboratory Data (last 24hrs) Test 05/10/16 16:30 Anion Gap 9.0 mmol/L BUN/Creatinine Ratio 9.2 Blood Urea Nitrogen 12 mg/dl Creatinine 1.30 mg/dl Potassium Level 4.3 mmol/L Sodium Level 132 mmol/L White Blood Count 4.44 K/uL Red Blood Count 3.71 M/uL Hemoglobin 9.0 g/dL Hematocrit 27.5 % Mean Corpuscular Volume 74.1 fL Mean Corpuscular Hemoglobin 24.3 pg Mean Corpuscular Hemoglobin Concent 32.3 g/dl Platelet Count 53 K/uL Neutrophils (%) (Auto) 68.7 % Lymphocytes (%) (Auto) 13.3 % Monocytes (%) (Auto) 13.7 % Eosinophils (%) (Auto) 3.2 % Basophils (%) (Auto) 1.1 % Neutrophils # (Auto) 3.05 K/uL Lymphocytes # (Auto) 0.59 K/uL Monocytes # (Auto) 0.61 K/uL Eosinophils # (Auto) 0.14 K/uL Basophils # (Auto) 0.05 K/uL Recent Pertinent Medications Outpatient Anti-diabetic Regimen: * Lantus 32 units HS + novolog TID with meals * A1c = 11.6 % 04/03/16 Risk Factors for Insulin Resistance: * Infection: ceftriaxone and daptomycin IV for peritonitis * Diet: T2DM/low Na diet Assessment & Plan ASSESSMENT: * 61 yr old T2DM male admitted with severe hyperglycemia possibly secondary to non-compliance and bacterial peritonitis. * Patient presentation is not consistent with DKA/HHS; electrolytes are within normal limits with the exception of slight hyponatremia, normal anion gap, normal osmolality, and patient does not appear to be dehydrated. * The patient reported to Dr. Fabian that he took 30 units of novolog insulin at 1300 today. * ADA & AACE recommend a goal blood sugar range 140-180 mg/dl for the majority of critically ill & non-critically ill patients. However, more stringent targets may be selected in individual cases. PLAN FOR INPATIENT GLYCEMIC CONTROL: * Starting IV insulin infusion for BSG > 600 per moderate stress protocol * Received an initial bolus of 5 units IV insulin * Goal Range 250 - 350 mg/dl (will start with higher goal range initially to avoid correcting hyperglycemia too quickly) * Once glycemic control improves, will change goal range to 140 - 180 mg/dL. * Will transition to basal/bolus regimen once BSG is within goal range * Basal insulin with LANTUS 32 units SQ HS * Overlap insulin drip with lantus for 1-2 hours * Correctional Insulin with NOVOLOG per scale ACHS * Goal Range: Low 140 mg/dL - High 180 mg/dL * Correction Factor: 15 mg/dL/unit * Nutritional / Prandial insulin per carb ratio of 1 unit per 2 grams CHO consumed * Scheduled an additional check at 0200 * Please note that the plan above was derived based on current level of insulin resistance and hospital stress. These recommendations are appropriate for inpatient admission only. Plan of care upon discharge will need to be reassessed to avoid potential outpatient hypo/hyperglycemia. Thank you.
--- NOTE | 2016-05-10 19:40 | Medical Consult ---
Consultation Date of Consultation: May 10, 2016. Attending Physician: Yvonne Fabian DO Reason for Consultation: possible spontaneous bacterial peritonitis in cirrhotic History of Present Illness 62-year-old male with long history of non alcoholic steatohepatitis with ascites , as well as diabetes mellitus recently underwent paracentesis for worsening abdominal distention and pain with relief of symptoms and with relatively benign appearing paracentesis fluid who is now admitted when culture of fluid coagulase negative staph, sensitivities pending. Patient has been complaining lower quadrant abdominal pain and distention denies any significant fever or chills. He is awaiting repeat paracentesis. He has been started empirically on ceftriaxone which he is tolerating without apparent difficulty. No SOB. Past Medical/Surgical History Medical Problems: (1) Abdominal pain Status: Acute (2) Abdominal pain Status: Acute (3) Abdominal pain Status: Acute (4) Acute hyperglycemia Status: Acute (5) Ambulatory dysfunction Status: Acute (6) Ambulatory dysfunction Status: Acute (7) Anasarca Status: Acute (8) Anemia Status: Acute (9) Anemia Status: Acute (10) Anemia Status: Acute (11) Ascites Status: Acute (12) Ascites Status: Acute (13) Ascites Status: Acute (14) Ascites Status: Acute (15) Ascites Status: Acute (16) Chest pain Status: Acute (17) Chronic liver failure Status: Acute (18) Chronic low back pain Status: Acute (19) Cirrhosis Status: Acute (20) Cirrhosis of liver Status: Acute (21) Contusion of left foot Status: Acute (22) Diarrhea Status: Acute (23) Diffuse abdominal pain Status: Acute (24) Dyspnea Status: Acute (25) Generalized weakness Status: Acute (26) HHNC (hyperglycemic hyperosmolar nonketotic coma) Status: Acute (27) Hyperglycemia Status: Acute (28) Hyperglycemia Status: Acute (29) Hyperglycemia Status: Acute (30) Hypoglycemia Status: Acute (31) Hypoglycemia Status: Acute (32) Muscle weakness Status: Acute (33) Nausea, vomiting, and diarrhea Status: Acute (34) Thrombocytopenia Status: Acute (35) Weakness Status: Acute Medical Problems: (1) Anxiety (2) Ascites (3) Bacterial peritonitis (4) Depression (5) DM2 (diabetes mellitus, type 2) (6) End stage liver disease (7) Esophageal varices (8) Failed back surgical syndrome (9) HLD (hyperlipidemia) (10) Hypothyroidism (11) BETANCOURT (nonalcoholic steatohepatitis) (12) Pericardial effusion (13) Portal hypertension (14) Pulmonary embolism (15) Seizure disorder (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 on Liver transplant list. Cannot have APAP., 05/08/16) NSAIDs (Verified Allergy, Severe, DUE TO LIVER DISEAS, 05/08/16) Penicillins (Verified Allergy, Severe, JOINT SWELLING AND FEVER, 05/08/16) Levofloxacin (Verified Allergy, Mild, RASH, 05/08/16) pt developed erythema at site of IV injection with itching Vancomycin (Verified Allergy, Mild, HIVES, 05/08/16) HIVES Tramadol (Verified Allergy, Unknown, NOT TO TAKE WITH KEPPRA DUE TO SEIZURE RISK, 05/08/16) Current Inpatient Medications Current Inpatient Medications Medications (Trade) Dose Ordered Sig/Ryan Route Start Time Stop Time Status Last Admin Dose Admin Ondansetron HCl (Zofran Inj) 4 mg Q6H PRN IV 05/10/16 16:15 06/09/16 16:14 Glucose (Glucose 40% Gel) 15-30 GRAMS 15 GRAMS... UD PRN PO 05/10/16 16:15 06/09/16 16:14 Glucose (Glucose Chew Tab) 4-8 Tablets 4 Tabl... UD PRN PO 05/10/16 16:15 06/09/16 16:14 Dextrose (Dextrose 50% 50ML Syringe) 25-50ML OF 50% DW IV FOR... UD PRN IV 05/10/16 16:15 06/09/16 16:14 Glucagon (Glucagon Inj) 1 mg UD PRN SQ 05/10/16 16:15 06/09/16 16:14 Miscellaneous Information (Consult Glycemic Management Pharmacy) 1 ea UD PRN N/A 05/10/16 16:15 06/09/16 16:14 Diphenhydramine HCl (Benadryl Cap) 25 mg BID PRN PO 05/10/16 16:45 06/09/16 16:44 Escitalopram Oxalate (Lexapro Tab) 10 mg DAILY PO 05/11/16 09:00 06/10/16 08:59 Furosemide (Lasix Tab) 20 mg BID17 PO 05/10/16 17:00 06/09/16 16:59 05/10/16 18:11 20 MG Hydromorphone HCl (Dilaudid Tab) 4 mg Q8 PRN PO 05/10/16 16:45 05/24/16 16:44 05/10/16 18:41 4 MG Lactulose (Chronulac Syrup) 20 gm TID PO 05/10/16 21:00 06/09/16 20:59 Levetiracetam (Keppra Tab) 500 mg AMHS PO 05/10/16 21:00 06/09/16 20:59 Levothyroxine Sodium (Synthroid Tab) 75 mcg DAILYBB PO 05/11/16 06:30 06/10/16 06:29 Magnesium Oxide (Mag-Ox Tab) 400 mg BID PO 05/10/16 21:00 06/09/16 20:59 Ondansetron HCl (Zofran Odt) 4 mg Q6H PRN SL 05/10/16 16:45 06/09/16 16:44 Pantoprazole Sodium (Protonix Tab) 40 mg BID PO 05/10/16 21:00 06/09/16 20:59 Pregabalin (Lyrica Cap) 75 mg TID PO 05/10/16 21:00 06/09/16 20:59 Propranolol HCl (Inderal Tab) 10 mg BID PO 05/10/16 21:00 06/09/16 20:59 Rifaximin (Xifaxan Tab) 550 mg AMHS PO 05/10/16 21:00 06/09/16 20:59 Spironolactone (Aldactone Tab) 100 mg DAILY PO 05/11/16 09:00 06/10/16 08:59 Triamcinolone Acetonide (Kenalog 0.1% Cream) 1 appln BID PRN EXT 05/10/16 16:45 06/09/16 16:44 Ferrous Sulfate (Feosol Tab) 325 mg BIDM PO 05/10/16 17:00 06/09/16 16:59 05/10/16 18:11 325 MG Pyridoxine HCl 25 mg 25 mg HS PO 05/10/16 21:00 06/09/16 20:59 Sodium Chloride 1,000 ml @ 100 mls/hr Q10H IV 05/10/16 17:30 05/10/16 22:29 05/10/16 18:06 100 MLS/HR Ceftriaxone Sodium/Dextrose (Rocephin Inj/D5 50ml) 70 ml @ 100 mls/hr Q24H IV 05/10/16 18:00 05/20/16 17:59 05/10/16 18:41 100 MLS/HR Insulin Aspart SLIDING SCALE PCHS SC 05/10/16 18:00 06/09/16 17:59 Insulin Human Regular/Sodium Chloride (novoLIN-R/Nss 250ml) 252.5 ml @ 0 mls/hr DAILY@1130 IV 05/10/16 18:00 06/09/16 17:59 05/10/16 18:20 1.8 MLS/HR Review of Systems All systems were reviewed and are negative except as per HPI. Physical Exam Date Time Temp Pulse Resp B/P Pulse Ox O2 Delivery O2 Flow Rate FiO2 05/10/16 16:20 36.7 65 20 113/52 99 Room Air General Appearance: WD/WN, no apparent distress Head: normocephalic, atraumatic Eyes: normal inspection, EOMI, sclerae normal ENT: normal ENT inspection, hearing grossly normal, pharynx normal Neck: supple, no adenopathy, thyroid normal, trachea midline Respiratory/Chest: chest non-tender, lungs clear, normal breath sounds, no respiratory distress Cardiovascular: regular rate, rhythm, no gallop, no murmur Abdomen/GI: normal bowel sounds, no organomegaly, + tenderness, + distended Back: normal inspection, no CVA tenderness Extremities/Musculoskelatal: no calf tenderness, non-tender Neurologic/Psych: alert, oriented x 3 Skin: normal color, warm/dry, no rash Lymphatic: no adenopathy Laboratory Results RUN DATE: 05/10/16 [facility] PAGE 1 RUN TIME: 1252 Specimen Inquiry PATIENT: JANNIE CHÁVEZ LOC: [id number] U # : [id number] AGE/SX: 61/M ROOM: W2 REG : 05/05/[address]: Korey Veronica DO : 1955 BED: 1 DIS : 05/06/16 STATUS: DIS IN TLOC: SPEC #: [id number] GUY: 05/05/16-UNK STATUS: RES REQ #: [id number] RECD: 05/05/16-[address]: Lj Yeager M.D. SOURCE: ASC FLD ENTR: 05/05/16-[address]: Santino Culver DO SPDESC: Korey Veronica DO Olson, Amanda M., D.OEmiliano ORDERED: AER/TIFFANY CULTSMR COMMENTS: Has Specimen Been Obtained/Collected? Y Procedure Result Verified Site GRAM STAIN Final 05/05/16-1431 RESULT FEW WBCs SEEN NO ORGANISMS SEEN OR AER/TIFFANY CULT Preliminary 05/10/16-1252 Organism 1 COAG NEG STAPHYLOCOCCUS QUANITY RARE SENS SENSITIVITY TO FOLLOW ANAS NO ANAEROBES ISOLATED. Last 24 Hours Test 05/10/16 16:30 05/10/16 16:38 White Blood Count 4.44 K/uL Red Blood Count 3.71 M/uL Hemoglobin 9.0 g/dL Hematocrit 27.5 % Mean Corpuscular Volume 74.1 fL Mean Corpuscular Hemoglobin 24.3 pg Mean Corpuscular Hemoglobin Concent 32.3 g/dl Platelet Count 53 K/uL Neutrophils (%) (Auto) 68.7 % Lymphocytes (%) (Auto) 13.3 % Monocytes (%) (Auto) 13.7 % Eosinophils (%) (Auto) 3.2 % Basophils (%) (Auto) 1.1 % Neutrophils # (Auto) 3.05 K/uL Lymphocytes # (Auto) 0.59 K/uL Monocytes # (Auto) 0.61 K/uL Eosinophils # (Auto) 0.14 K/uL Basophils # (Auto) 0.05 K/uL RDW Standard Deviation 57.5 fL RDW Coefficient of Variation 21.1 % Immature Granulocyte % (Auto) 0.0 % Immature Granulocyte # (Auto) 0.00 K/uL Platelet Estimate DECREASED Giant Platelets 2+ Prothrombin Time 15.0 SECONDS Prothromb Time International Ratio 1.4 Sodium Level 132 mmol/L Potassium Level 4.3 mmol/L Chloride Level 99 mmol/L Carbon Dioxide Level 24 mmol/L Anion Gap 9.0 mmol/L Blood Urea Nitrogen 12 mg/dl Creatinine 1.30 mg/dl Estimated GFR () 67.8 Estimated GFR (Non- 58.5 BUN/Creatinine Ratio 9.2 Random Glucose 676 mg/dl Osmolality 300 mOsm/kg Calcium Level 7.7 mg/dl Magnesium Level 2.0 mg/dl Total Bilirubin 1.0 mg/dl Aspartate Amino Transf (AST/SGOT) 20 U/L Alanine Aminotransferase (ALT/SGPT) 21 U/L Alkaline Phosphatase 98 U/L Total Protein 5.1 gm/dl Albumin 3.0 gm/dl Globulin 2.1 gm/dl Albumin/Globulin Ratio 1.4 Beta-Hydroxybutyric Acid 0.76 mg/dL Bedside Glucose > 600 mg/dl Assessment & Plan 61-year-old male with 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 However prior paracentesis reviewed no inflammatory response. Agree with need for repeat paracentesis, given vancomycin allergy have started patient on daptomycin empirically. Await further cultures and paracentesis results. Will follow.
[2016-05-10] MEDS ORDERED: INSULIN GLARGINE SOLOSTAR 100 UNITS/ML 3 ML PEN SC SCH ×2 (21:00→21:30)
[2016-05-10] MEDS: OXYCODONE HCL IR 5 MG TAB (IMMEDIATE RELEASE) PO PRN (22:20)
[2016-05-10] MEDS: DAPTOmycin IV 450 MG in SODIUM CHLORIDE 0.9% 50ML 50 ML IV SCH (22:21)
[2016-05-10] MEDS: LEVETIRACETAM 500 MG TAB PO SCH (22:22)
[2016-05-10] MEDS: MAGNESIUM OXIDE 400 MG TAB PO SCH (22:22)
[2016-05-10] MEDS: PROPRANOLOL HCL 10 MG TAB PO SCH (22:23)
[2016-05-10] MEDS: LACTULOSE SYRUP 20 GM/30 ML UDC PO SCH (22:23)
[2016-05-10] MEDS: PANTOprazole SOD 40 MG TAB PO SCH (22:24)
[2016-05-10] MEDS: PYRIDOXINE HCL 50 MG TAB PO SCH (22:24)
[2016-05-10] MEDS: RIFAXIMIN TAB 550 MG TAB PO SCH (22:24)
[2016-05-10] MEDS: PREGABALIN 75 MG CAP PO SCH (22:29)
[2016-05-10 23:20] VITALS: BP 102/58; PULSE 60; TEMP 36.7; O2SAT 97
[2016-05-10 23:24] VITALS: BP 102/58; PULSE 60; TEMP 36.7; O2SAT 97; BMI 22.1
[2016-05-11] MEDS: INSULIN REGULAR 250 UNITS in SODIUM CHLORIDE 0.9% 250ML 250 ML IV SCH (00:03)
[2016-05-11] MEDS ORDERED: INSULIN ASPART 100 UNITS/ML 3 ML PEN SC SCH ×2 (02:00→06:00)
[2016-05-11] MEDS: LEVOTHYROXINE 75 MCG TAB PO SCH (05:54)
--- NOTE | 2016-05-11 07:16 | Clinical Documentation Query ---
CLINICAL DOCUMENTATION QUERY Dr. PUGH, In your clinical opinion is this patient being managed for: ( + ) Pancytopenia ( ) Other explanation of clinical findings (Please Explain) ( ) Unable to determine (Please Define) ( ) Need to Discuss ( ) Not Agree The medical record reflects the following clinical findings, treatment, and risk factors. Clinical Indicators: 61 yo male presenting with suspected SBP. WBC 4.44, RBC 3.71, plts 53 Treatment: avoid anticoagulation/antiplatelet as able, serial CBC's Risk Factors: End stage liver disease Please clarify and document your clinical opinion in the progress notes and discharge summary. Terms such as "probable", "suspected", "likely", "questionable", "possible", or "still to be ruled out" are acceptable. IF IN AGREEMENT, YOU MUST DOCUMENT ABOVE DIAGNOSTIC STATEMENT IN DAILY PROGRESS NOTES AND DISCHARGE SUMMARY. This document is not part of the patient's record. Thank You, Isabel Larsen, RN [phone]
[2016-05-11 07:34] VITALS: BP 98/52; PULSE 63; TEMP 36.7; O2SAT 96
[2016-05-11 07:36] LABS: BUN/CREATININE RATIO 9.9 (10-20); CREATININE 1.1 mg/dl (0.60-1.40); POTASSIUM 4.4 mmol/L (3.5-5.1)
[2016-05-11 07:41] LABS: MEAN CORPUSCULAR HGB CONC 33.1 g/dl (32-36)
[2016-05-11 07:46] LABS: BETA-HYDROXYBUTYRATE 0.72 mg/dL (0.2-2.81)
[2016-05-11 07:49] LABS: HEMATOCRIT 27.8 % (42-52); MEAN CELL VOLUME 74.1 fL (80-100); MEAN CORPUSCULAR HEMOGLOBIN 24.5 pg (25-34); RED BLOOD COUNT 3.75 M/uL (4.7-6.1); WHITE BLOOD COUNT 4.79 K/uL (4.8-10.8)
[2016-05-11 08:00] VITALS: O2SAT 96
[2016-05-11 08:08] LABS: BASO % 1.3 %; BASO ABS # 0.06 K/uL (0-0.2); COMPLETE YES; EOS % 6.1 %; IG% 0.2 %; LYMPH % 15.9 %; LYMPH ABS # 0.76 K/uL (1.2-3.4); MONO % 12.9 %; NEUT % 63.6 %; PLATELET COUNT 53 K/uL (130-400); PLT ESTIMATE DECREASED
[2016-05-11] MEDS: LEVETIRACETAM 500 MG TAB PO SCH ×2 (09:29→19:54)
[2016-05-11] MEDS: MAGNESIUM OXIDE 400 MG TAB PO SCH ×2 (09:29→19:54)
[2016-05-11] MEDS: FERROUS SULFATE 325 MG TAB PO SCH ×2 (09:30→16:34)
[2016-05-11] MEDS: ESCITALOPRAM OXALATE 10 MG TAB PO SCH (09:31)
[2016-05-11] MEDS: LACTULOSE SYRUP 20 GM/30 ML UDC PO SCH ×3 (09:33→19:54)
[2016-05-11] MEDS: RIFAXIMIN TAB 550 MG TAB PO SCH ×2 (09:34→19:54)
[2016-05-11] MEDS: PANTOprazole SOD 40 MG TAB PO SCH ×2 (09:34→19:54)
[2016-05-11] MEDS: FUROSEMIDE 20 MG TAB PO SCH ×2 (09:41→16:35)
[2016-05-11] MEDS: PROPRANOLOL HCL 10 MG TAB PO SCH ×2 (09:41→19:56)
[2016-05-11] MEDS: INSULIN ASPART 100 UNITS/ML 3 ML PEN SC SCH ×4 (09:41→20:04)
[2016-05-11] MEDS: SPIRONOLACTONE 100 MG TAB PO SCH (09:41)
--- NOTE | 2016-05-11 10:06 | Gastrointestinal Consultation ---
Gastrointestinal Consultation Date of Consultation: May 11, 2016 Attending Physician: Rui Consulting Physician: Palomo Reason for Consultation: SBP History of Present Illness Mr. Broderick is a 61 year old male with PMH of DMT2, BETANCOURT cirrhosis complicated by esophageal varices, prior hepatic encephalopathy BETANCOURT, Dyslipidemia, Portal Hypertension, History PE, S/P IVC filter placement, Anxiety/Depression. He is directly admitted following result of 05/05 paracentesis w/ coag negative staph growth. Pt was contacted yesterday to discuss results and review symptoms and advised to come to the hospital. He has had recent issues with quickly accumulating ascites despite compliance to low NA diet, fluid restriction and diuretic dosing. Currently, reports intermittent lower quadrant abdominal pain. This is sharp stabbing and radiates up to his mid abdomen. 07/15. No triggering factors. No alleviating factors. No other associated symptoms. He is mentating well and moving his bowels well. No fever, chills, chest pain, SOB, black/ bloody stools/emesis. Paracentesis 05/08/16: Successful ultrasound-guided paracentesis with removal of approximately 7 liters of ascitic fluid. No diagnostic labs obtained - this was done in the ER Paracentesis 05/05/16: Ultrasound-guided diagnostic and therapeutic paracentesis with removal of 8.1 liters of ascites. One liter of ascites was sent to the laboratory for analysis. 05/10/16 resulted with coag-negative staph Paracentesis 04/27/16: Successful ultrasound-guided paracentesis with removal of approximately 10.6 liters of ascitic fluid. Paracentesis 04/10/16: Ultrasound-guided therapeutic paracentesis with aspiration of 6 liters of ascites. Paracentesis 03/27/16: Ultrasound-guided therapeutic and diagnostic paracentesis with aspiration of 10 liters of ascites. A 1 L sample was sent to the laboratory for further evaluation. Paracentesis 03/14/16: Successful ultrasound-guided paracentesis with removal of approximately 6.5 liters of ascitic fluid. Paracentesis 02/22/16: Ultrasound-guided therapeutic paracentesis with aspiration of 5.7 liters of ascites. Past Medical/Surgical History Medical Problems: Anemia Ascites Chronic low back pain Cirrhosis of liver Diffuse abdominal pain Thrombocytopenia Weakness Past Medical History: DMT2, BETANCOURT cirrhosis complicated by esophageal varices, prior hepatic encephalopathy BETANCOURT, Dyslipidemia, Portal Hypertension, History PE, Anxiety/ Depression Past Surgical History: S/P IVC filter placement, Family History FH: CAD (coronary artery disease) FATHER FH: breast cancer MOTHER Social History Smoking Status: Never Smoker Alcohol Use: none Drug Use: none Marital Status: single Housing Status: lives alone Occupation Status: retired Allergies Coded Allergies: Acetaminophen (Verified Allergy, Severe, ESLD (BETANCOURT). on Liver transplant list. Cannot have APAP., 05/08/16) NSAIDs (Verified Allergy, Severe, DUE TO LIVER DISEAS, 05/08/16) Penicillins (Verified Allergy, Severe, JOINT SWELLING AND FEVER, 05/08/16) Levofloxacin (Verified Allergy, Mild, RASH, 05/08/16) pt developed erythema at site of IV injection with itching Vancomycin (Verified Allergy, Mild, HIVES, 05/08/16) HIVES Tramadol (Verified Allergy, Unknown, NOT TO TAKE WITH KEPPRA DUE TO SEIZURE RISK, 05/08/16) Current Medications Home Meds and Scripts Medications Dose Route/Sig Max Daily Dose Days Date Category Dose Instructions Kp Ferrous Sulfate (Ferrous Sulfate) 325 Mg Tab 1 Tab PO BID 04/27/16 Reported Diphenhydramine HCl 25 Mg Cap 25 Mg PO BID PRN 7 04/10/16 Rx Dilaudid (Hydromorphone Hcl) 2 Mg Tab 4 Mg PO Q8 PRN 3 04/09/16 Reported Lasix (Furosemide) 20 Mg Tab 20 Mg PO BID 04/09/16 Reported Chronulac (Lactulose) 10 Gm/15 Ml Syrp 20 Gm PO TID 03/27/16 Reported Aristocort 0.1% (Triamcinolone Acet) 90 Appln/30 Gm Cr 1 Appl EXT BID PRN 03/27/16 Reported Novolog Penfill (Insulin Aspart) 100 Unit/Ml Inj SQ TIDM 03/13/16 Reported via SSI Lantus (Insulin Glargine) 100 Unit/Ml Inj 32 Units SC HS 03/13/16 Reported Levetiracetam (Levetiractam) 500 Mg Tab 500 Mg PO AMHS 03/13/16 Reported Aldactone (Spironolactone) 100 Mg Tab 1 Tab PO DAILY 30 12/10/15 Reported Inderal (Propranolol HCl) 10 Mg Tab 10 Mg PO BID 06/04/15 Reported Vitamin B-6 (Pyridoxine Hcl) 25 Mg Tab 25 Mg PO HS 06/04/15 Reported Synthroid (Levothyroxine Sodium) 75 Mcg Tab 75 Mcg PO DAILY 05/07/15 Reported Lyrica (Pregabalin) 75 Mg Cap 75 Mg PO TID 05/07/15 Reported Zofran Odt (Ondansetron HCl) 4 Mg Tab 4 Mg SL Q6H PRN 05/07/15 Reported Lexapro (Escitalopram Oxalate) 10 Mg Tab 10 Mg PO DAILY 10/30/14 Reported Protonix (Pantoprazole) 40 Mg Tab 40 Mg PO BID 08/04/14 Reported Xifaxan (Rifaximin) 550 Mg Tab 550 Mg PO AMHS 05/20/13 Reported ONE AT BREAKFAST AND ONE AT SUPPER. Mag-Ox (Magnesium Oxide) 400 Mg Tab 400 Mg PO BID 09/29/11 Reported Review of Systems Constitutional: No chills, No fever Respiratory: No cough, No shortness of breath Cardiac: No chest pain, No edema Abdomen: + pain, No GI bleeding, No constipation, No diarrhea, No nausea, No vomiting Physical Exam Date Time Temp Pulse Resp B/P Pulse Ox O2 Delivery O2 Flow Rate FiO2 05/11/16 07:34 36.7 63 18 98/52 96 Room Air 05/11/16 00:00 Room Air 05/10/16 23:24 36.7 60 18 102/58 97 Room Air 05/10/16 23:20 36.7 60 18 102/58 97 Room Air 05/10/16 16:20 36.7 65 20 113/52 99 Room Air General Appearance: no apparent distress (pt was sittig upright in bed watching TV prior to exam) Eyes: PERRL ENT: hearing grossly normal Neck: supple, trachea midline Respiratory/Chest: lungs clear, normal breath sounds, no respiratory distress, no accessory muscle use Cardiovascular: regular rate, rhythm, no edema, no gallop, no JVD, no murmur Abdomen: normal bowel sounds, soft, no organomegaly, no pulsatile mass, + distended (soft, but mildly distended, non-tense asictes), + tenderness ( generalized tenderness) Neurologic/Psych: alert, normal mood/affect, oriented x 3 Skin: normal color, no jaundice, warm/dry, no rash Laboratory Results Last 24 Hours Test 05/10/16 16:30 05/10/16 16:38 05/10/16 19:31 05/10/16 21:02 White Blood Count 4.44 K/uL Red Blood Count 3.71 M/uL Hemoglobin 9.0 g/dL Hematocrit 27.5 % Mean Corpuscular Volume 74.1 fL Mean Corpuscular Hemoglobin 24.3 pg Mean Corpuscular Hemoglobin Concent 32.3 g/dl Platelet Count 53 K/uL Neutrophils (%) (Auto) 68.7 % Lymphocytes (%) (Auto) 13.3 % Monocytes (%) (Auto) 13.7 % Eosinophils (%) (Auto) 3.2 % Basophils (%) (Auto) 1.1 % Neutrophils # (Auto) 3.05 K/uL Lymphocytes # (Auto) 0.59 K/uL Monocytes # (Auto) 0.61 K/uL Eosinophils # (Auto) 0.14 K/uL Basophils # (Auto) 0.05 K/uL RDW Standard Deviation 57.5 fL RDW Coefficient of Variation 21.1 % Immature Granulocyte % (Auto) 0.0 % Immature Granulocyte # (Auto) 0.00 K/uL Platelet Estimate DECREASED Giant Platelets 2+ Prothrombin Time 15.0 SECONDS Prothromb Time International Ratio 1.4 Sodium Level 132 mmol/L Potassium Level 4.3 mmol/L Chloride Level 99 mmol/L Carbon Dioxide Level 24 mmol/L Anion Gap 9.0 mmol/L Blood Urea Nitrogen 12 mg/dl Creatinine 1.30 mg/dl Estimated GFR () 67.8 Estimated GFR (Non- 58.5 BUN/Creatinine Ratio 9.2 Random Glucose 676 mg/dl Osmolality 300 mOsm/kg Calcium Level 7.7 mg/dl Magnesium Level 2.0 mg/dl Total Bilirubin 1.0 mg/dl Aspartate Amino Transf (AST/SGOT) 20 U/L Alanine Aminotransferase (ALT/SGPT) 21 U/L Alkaline Phosphatase 98 U/L Total Protein 5.1 gm/dl Albumin 3.0 gm/dl Globulin 2.1 gm/dl Albumin/Globulin Ratio 1.4 Beta-Hydroxybutyric Acid 0.76 mg/dL Bedside Glucose > 600 mg/dl 384 mg/dl 276 mg/dl Test 05/10/16 21:47 05/10/16 22:48 05/10/16 23:48 05/11/16 01:45 Bedside Glucose 274 mg/dl 259 mg/dl 210 mg/dl 205 mg/dl Test 05/11/16 06:26 05/11/16 06:59 White Blood Count 4.79 K/uL Red Blood Count 3.75 M/uL Hemoglobin 9.2 g/dL Hematocrit 27.8 % Mean Corpuscular Volume 74.1 fL Mean Corpuscular Hemoglobin 24.5 pg Mean Corpuscular Hemoglobin Concent 33.1 g/dl Platelet Count 53 K/uL Neutrophils (%) (Auto) 63.6 % Lymphocytes (%) (Auto) 15.9 % Monocytes (%) (Auto) 12.9 % Eosinophils (%) (Auto) 6.1 % Basophils (%) (Auto) 1.3 % Neutrophils # (Auto) 3.05 K/uL Lymphocytes # (Auto) 0.76 K/uL Monocytes # (Auto) 0.62 K/uL Eosinophils # (Auto) 0.29 K/uL Basophils # (Auto) 0.06 K/uL RDW Standard Deviation 58.6 fL RDW Coefficient of Variation 21.5 % Immature Granulocyte % (Auto) 0.2 % Immature Granulocyte # (Auto) 0.01 K/uL Platelet Estimate DECREASED Sodium Level 138 mmol/L Potassium Level 4.4 mmol/L Chloride Level 103 mmol/L Carbon Dioxide Level 28 mmol/L Anion Gap 7.0 mmol/L Blood Urea Nitrogen 11 mg/dl Creatinine 1.10 mg/dl Est Creatinine Clear Calc Drug Dose 72.2 ml/min Estimated GFR () 82.9 Estimated GFR (Non- 71.6 BUN/Creatinine Ratio 9.9 Random Glucose 304 mg/dl Calcium Level 8.0 mg/dl Beta-Hydroxybutyric Acid 0.72 mg/dL Bedside Glucose 328 mg/dl Impression Patient is a 61 year old male with recurrent large volume ascites with intermittent abdominal sharp, cramping pain starting in bilateral lower quadrants and radiating up to mid-abdomen. Results of 05/05/16 with coag negative staph. This may be a contaminant. Plan NPO for paracentesis US guided paracentesis - this was ordered by primary team 25g 25% albumin before & after Outpatient medications as appropriate limit narcotic use ?drug seeking Appreciate ID consult 05/11/16 MELD: 17 05/05/16 MELD: 8 Further recommendations pending paracentesis. I have seen and evaluted the patient with Ms. Sebastinelli. He has a long history of Cirrhosis related to BETANCOURT. His main complications are ascitees, varices, and hepatic encephalopathy. He had a recent admition with + cultures for staph from ascitic fluid, negative cell count. PE: NAD, mild abdminal distension. Impression : cirrhosis with refractory acites, possible + culture ( may be a contaminant). Recs: repeat a diagnostice paracentesis (Cell count, diff and culture). please consider an ID consultation.
--- NOTE | 2016-05-11 10:08 | Pharmacy Progress Note ---
Glycemic Control: Progress Nt Date of Service May 11, 2016. Scope Glycemic Pharmacist consulted by Vandana Chase PA-C on 05/10/16 for glycemic control and to write orders per [facility] inpatient glycemic control protocol. Objective Accuchecks BSG (last 24hrs): Test 05/10/16 16:30 05/10/16 16:38 05/10/16 19:31 05/10/16 21:02 Random Glucose 676 mg/dl (70-99) Bedside Glucose > 600 mg/dl (70-99) 384 mg/dl (70-99) 276 mg/dl (70-99) Test 05/10/16 21:47 05/10/16 22:48 05/10/16 23:48 05/11/16 01:45 Bedside Glucose 274 mg/dl (70-99) 259 mg/dl (70-99) 210 mg/dl (70-99) 205 mg/dl (70-99) Test 05/11/16 06:26 05/11/16 06:59 Random Glucose 304 mg/dl (70-99) Bedside Glucose 328 mg/dl (70-99) Laboratory Data (last 24hrs) Test 05/10/16 16:30 05/11/16 06:26 Anion Gap 9.0 mmol/L 7.0 mmol/L BUN/Creatinine Ratio 9.2 9.9 Blood Urea Nitrogen 12 mg/dl 11 mg/dl Creatinine 1.30 mg/dl 1.10 mg/dl Potassium Level 4.3 mmol/L 4.4 mmol/L Sodium Level 132 mmol/L 138 mmol/L White Blood Count 4.44 K/uL 4.79 K/uL Red Blood Count 3.71 M/uL 3.75 M/uL Hemoglobin 9.0 g/dL 9.2 g/dL Hematocrit 27.5 % 27.8 % Mean Corpuscular Volume 74.1 fL 74.1 fL Mean Corpuscular Hemoglobin 24.3 pg 24.5 pg Mean Corpuscular Hemoglobin Concent 32.3 g/dl 33.1 g/dl Platelet Count 53 K/uL 53 K/uL Neutrophils (%) (Auto) 68.7 % 63.6 % Lymphocytes (%) (Auto) 13.3 % 15.9 % Monocytes (%) (Auto) 13.7 % 12.9 % Eosinophils (%) (Auto) 3.2 % 6.1 % Basophils (%) (Auto) 1.1 % 1.3 % Neutrophils # (Auto) 3.05 K/uL 3.05 K/uL Lymphocytes # (Auto) 0.59 K/uL 0.76 K/uL Monocytes # (Auto) 0.61 K/uL 0.62 K/uL Eosinophils # (Auto) 0.14 K/uL 0.29 K/uL Basophils # (Auto) 0.05 K/uL 0.06 K/uL Recent Pertinent Medications Outpatient Anti-diabetic Regimen: * Lantus 32 units HS, Novolog TIDM per SS * A1c = 11.6 % 04/03/16 Risk Factors for Insulin Resistance: * Infection: Possible spontaneous bacterial peritonitis * Diet:DM2/Carlos Assessment & Plan ASSESSMENT: * ADA & AACE recommend a goal blood sugar range 140-180 mg/dl for the majority of critically ill & non-critically ill patients. However, more stringent targets may be selected in individual cases. 05/10/16 * 61 yr old T2DM male admitted with severe hyperglycemia possibly secondary to non-compliance and bacterial peritonitis. * Patient presentation is not consistent with DKA/HHS; electrolytes are within normal limits with the exception of slight hyponatremia, normal anion gap, normal osmolality, and patient does not appear to be dehydrated. * The patient reported to Dr. Fabian that he took 30 units of novolog insulin at 1300 today. * Starting IV insulin infusion for BSG > 600 per moderate stress protocol * Received an initial bolus of 5 units IV insulin * Goal Range 250 - 350 mg/dl (will start with higher goal range initially to avoid correcting hyperglycemia too quickly) * Once glycemic control improves, will change goal range to 140 - 180 mg/dL. 05/11/16 * Insulin gtt was stopped late last night. * BSGs remain moderately elevated > 300 mg/dl this morning. * Will tighten Novolog CF/CR. Add an overnight accuchek at 0200. * Will increase Lantus dose by 12%. Will consider adding an additional one time dose of Lantus this morning if BSGs remain moderately elevated prior to lunch. However, pt received Novolog 28 units with breakfast this morning so want to avoid stacking of insulin doses as well. PLAN FOR INPATIENT GLYCEMIC CONTROL: * Increase Lantus qHS per scale: * For BSG below 110 mg/dl: 15 units * For BSG above 110 mg/dl: 36 units * Novolog ACHS + 02 * Tighten correction factor to 12 mg/dl/unit * Tighten carb ratio to 1 unit per 4 grams CHO consumed * Narrow goal range to Low 110 mg/dL - High 140 mg/dL for improved glycemic control * Please note that the plan above was derived based on current level of insulin resistance and hospital stress. These recommendations are appropriate for inpatient admission only. Plan of care upon discharge will need to be reassessed to avoid potential outpatient hypo/hyperglycemia. Thank you.
[2016-05-11] MEDS ORDERED: ALBUMIN HUMAN 25% 12.5 GM/50 ML VIAL IV ONE ×2 (11:00→14:00)
[2016-05-11] MEDS: PREGABALIN 75 MG CAP PO SCH ×3 (11:48→19:58)
[2016-05-11] MEDS ORDERED: INSULIN GLARGINE SOLOSTAR 100 UNITS/ML 3 ML PEN SC ONE (12:30)
[2016-05-11 13:16] VITALS: BMI 21.9
[2016-05-11 13:20] VITALS: BP 120/73; PULSE 78
[2016-05-11] MEDS: OXYCODONE HCL IR 5 MG TAB (IMMEDIATE RELEASE) PO PRN ×3 (13:28→21:04)
--- NOTE | 2016-05-11 13:32 | Infectious Disease Progress Nt ---
Progress Note Date of Service May 11, 2016. Subjective Pt evaluation today including: conversation w/ patient, physical exam, chart review, lab review, review of studies, conversation w/ investment consultant, review of inpatient medication list Still c/o lower abdominal pain, rated 6/10 in intensity. Remains afebrile. Tolerated 1st dose of daptomycin. No other new complaints. All Other Systems: Reviewed and Negative Medications Current Inpatient Medications Medications (Trade) Dose Ordered Sig/Ryan Route Start Time Stop Time Status Last Admin Dose Admin Ondansetron HCl (Zofran Inj) 4 mg Q6H PRN IV 05/10/16 16:15 06/09/16 16:14 Glucose (Glucose 40% Gel) 15-30 GRAMS 15 GRAMS... UD PRN PO 05/10/16 16:15 06/09/16 16:14 Glucose (Glucose Chew Tab) 4-8 Tablets 4 Tabl... UD PRN PO 05/10/16 16:15 06/09/16 16:14 Dextrose (Dextrose 50% 50ML Syringe) 25-50ML OF 50% DW IV FOR... UD PRN IV 05/10/16 16:15 06/09/16 16:14 Glucagon (Glucagon Inj) 1 mg UD PRN SQ 05/10/16 16:15 06/09/16 16:14 Miscellaneous Information (Consult Glycemic Management Pharmacy) 1 ea UD PRN N/A 05/10/16 16:15 06/09/16 16:14 Diphenhydramine HCl (Benadryl Cap) 25 mg BID PRN PO 05/10/16 16:45 06/09/16 16:44 Escitalopram Oxalate (Lexapro Tab) 10 mg DAILY PO 05/11/16 09:00 06/10/16 08:59 05/11/16 09:31 10 MG Furosemide (Lasix Tab) 20 mg BID17 PO 05/10/16 17:00 06/09/16 16:59 05/10/16 18:11 20 MG Hydromorphone HCl (Dilaudid Tab) 4 mg Q8 PRN PO 05/10/16 16:45 05/24/16 16:44 Future Hold 05/10/16 18:41 4 MG Lactulose (Chronulac Syrup) 20 gm TID PO 05/10/16 21:00 06/09/16 20:59 05/11/16 09:33 20 GM Levetiracetam (Keppra Tab) 500 mg AMHS PO 05/10/16 21:00 06/09/16 20:59 05/11/16 09:29 500 MG Levothyroxine Sodium (Synthroid Tab) 75 mcg DAILYBB PO 05/11/16 06:30 06/10/16 06:29 05/11/16 05:54 75 MCG Magnesium Oxide (Mag-Ox Tab) 400 mg BID PO 05/10/16 21:00 06/09/16 20:59 05/11/16 09:29 400 MG Ondansetron HCl (Zofran Odt) 4 mg Q6H PRN SL 05/10/16 16:45 06/09/16 16:44 Pantoprazole Sodium (Protonix Tab) 40 mg BID PO 05/10/16 21:00 06/09/16 20:59 05/11/16 09:34 40 MG Pregabalin (Lyrica Cap) 75 mg TID PO 05/10/16 21:00 06/09/16 20:59 05/11/16 11:48 75 MG Propranolol HCl (Inderal Tab) 10 mg BID PO 05/10/16 21:00 06/09/16 20:59 05/10/16 22:23 10 MG Rifaximin (Xifaxan Tab) 550 mg AMHS PO 05/10/16 21:00 06/09/16 20:59 05/11/16 09:34 550 MG Spironolactone (Aldactone Tab) 100 mg DAILY PO 05/11/16 09:00 06/10/16 08:59 Triamcinolone Acetonide (Kenalog 0.1% Cream) 1 appln BID PRN EXT 05/10/16 16:45 06/09/16 16:44 Ferrous Sulfate (Feosol Tab) 325 mg BIDM PO 05/10/16 17:00 06/09/16 16:59 05/11/16 09:30 325 MG Pyridoxine HCl 25 mg 25 mg HS PO 05/10/16 21:00 06/09/16 20:59 05/10/16 22:24 25 MG Ceftriaxone Sodium 2000 mg/ Dextrose 70 ml @ 100 mls/hr Q24H IV 05/10/16 18:00 05/20/16 17:59 05/10/16 18:41 100 MLS/HR Daptomycin/Sodium Chloride (Cubicin IV/Nss 50ml) 59 ml @ 100 mls/hr DAILY@2000 IV 05/10/16 20:00 05/20/16 19:59 05/10/16 22:21 100 MLS/HR Oxycodone HCl (Roxicodone Immediate Rel Tab) 5 mg Q4H PRN PO 05/10/16 21:00 05/24/16 20:59 05/11/16 13:28 5 MG Insulin Aspart (novoLOG ASPART) SLIDING SCALE If C... ACHS SC 05/11/16 06:30 06/10/16 06:29 05/11/16 13:00 37 UNITS Insulin Aspart (novoLOG ASPART) SLIDING SCALE If C... 0200 ONCE SC 05/12/16 02:00 05/12/16 02:01 Insulin Glargine (Lantus Solostar Pen) SEE PROTOCOL TEXT HS SC 05/11/16 21:00 06/10/16 20:59 Albumin Human (Albumin 25%) 12.5 gm TODAY@1500,1600 IV 05/11/16 15:00 05/11/16 23:59 Albumin Human (Albumin 25%) 25 gm 1400 IV 05/11/16 14:00 05/11/16 17:00 05/11/16 13:20 25 GM Objective Vital Signs Date Time Temp Pulse Resp B/P Pulse Ox O2 Delivery O2 Flow Rate FiO2 05/11/16 07:34 36.7 63 18 98/52 96 Room Air 05/11/16 00:00 Room Air 05/10/16 23:24 36.7 60 18 102/58 97 Room Air 05/10/16 23:20 36.7 60 18 102/58 97 Room Air 05/10/16 16:20 36.7 65 20 113/52 99 Room Air Physical Exam General Appearance: WD/WN, no apparent distress Eyes: normal inspection, sclerae normal ENT: normal ENT inspection, pharynx normal Neck: supple, no adenopathy, trachea midline Respiratory/Chest: chest non-tender, lungs clear, normal breath sounds, no respiratory distress Cardiovascular: regular rate, rhythm, no gallop, no murmur Abdomen: normal bowel sounds, soft, no organomegaly, + distended, + tenderness Extremities: non-tender, no calf tenderness Neurologic/Psychiatric: alert, oriented x 3 Skin: normal color, warm/dry, no rash Lymphatic: no adenopathy Laboratory Results Last 24 Hours Test 05/10/16 16:30 05/10/16 16:38 05/10/16 19:31 05/10/16 21:02 White Blood Count 4.44 K/uL Red Blood Count 3.71 M/uL Hemoglobin 9.0 g/dL Hematocrit 27.5 % Mean Corpuscular Volume 74.1 fL Mean Corpuscular Hemoglobin 24.3 pg Mean Corpuscular Hemoglobin Concent 32.3 g/dl Platelet Count 53 K/uL Neutrophils (%) (Auto) 68.7 % Lymphocytes (%) (Auto) 13.3 % Monocytes (%) (Auto) 13.7 % Eosinophils (%) (Auto) 3.2 % Basophils (%) (Auto) 1.1 % Neutrophils # (Auto) 3.05 K/uL Lymphocytes # (Auto) 0.59 K/uL Monocytes # (Auto) 0.61 K/uL Eosinophils # (Auto) 0.14 K/uL Basophils # (Auto) 0.05 K/uL RDW Standard Deviation 57.5 fL RDW Coefficient of Variation 21.1 % Immature Granulocyte % (Auto) 0.0 % Immature Granulocyte # (Auto) 0.00 K/uL Platelet Estimate DECREASED Giant Platelets 2+ Prothrombin Time 15.0 SECONDS Prothromb Time International Ratio 1.4 Sodium Level 132 mmol/L Potassium Level 4.3 mmol/L Chloride Level 99 mmol/L Carbon Dioxide Level 24 mmol/L Anion Gap 9.0 mmol/L Blood Urea Nitrogen 12 mg/dl Creatinine 1.30 mg/dl Estimated GFR () 67.8 Estimated GFR (Non- 58.5 BUN/Creatinine Ratio 9.2 Random Glucose 676 mg/dl Osmolality 300 mOsm/kg Calcium Level 7.7 mg/dl Magnesium Level 2.0 mg/dl Total Bilirubin 1.0 mg/dl Aspartate Amino Transf (AST/SGOT) 20 U/L Alanine Aminotransferase (ALT/SGPT) 21 U/L Alkaline Phosphatase 98 U/L Total Protein 5.1 gm/dl Albumin 3.0 gm/dl Globulin 2.1 gm/dl Albumin/Globulin Ratio 1.4 Beta-Hydroxybutyric Acid 0.76 mg/dL Bedside Glucose > 600 mg/dl 384 mg/dl 276 mg/dl Test 05/10/16 21:47 05/10/16 22:48 05/10/16 23:48 05/11/16 01:45 Bedside Glucose 274 mg/dl 259 mg/dl 210 mg/dl 205 mg/dl Test 05/11/16 06:26 05/11/16 06:59 05/11/16 11:24 White Blood Count 4.79 K/uL Red Blood Count 3.75 M/uL Hemoglobin 9.2 g/dL Hematocrit 27.8 % Mean Corpuscular Volume 74.1 fL Mean Corpuscular Hemoglobin 24.5 pg Mean Corpuscular Hemoglobin Concent 33.1 g/dl Platelet Count 53 K/uL Neutrophils (%) (Auto) 63.6 % Lymphocytes (%) (Auto) 15.9 % Monocytes (%) (Auto) 12.9 % Eosinophils (%) (Auto) 6.1 % Basophils (%) (Auto) 1.3 % Neutrophils # (Auto) 3.05 K/uL Lymphocytes # (Auto) 0.76 K/uL Monocytes # (Auto) 0.62 K/uL Eosinophils # (Auto) 0.29 K/uL Basophils # (Auto) 0.06 K/uL RDW Standard Deviation 58.6 fL RDW Coefficient of Variation 21.5 % Immature Granulocyte % (Auto) 0.2 % Immature Granulocyte # (Auto) 0.01 K/uL Platelet Estimate DECREASED Sodium Level 138 mmol/L Potassium Level 4.4 mmol/L Chloride Level 103 mmol/L Carbon Dioxide Level 28 mmol/L Anion Gap 7.0 mmol/L Blood Urea Nitrogen 11 mg/dl Creatinine 1.10 mg/dl Est Creatinine Clear Calc Drug Dose 72.2 ml/min Estimated GFR () 82.9 Estimated GFR (Non- 71.6 BUN/Creatinine Ratio 9.9 Random Glucose 304 mg/dl Calcium Level 8.0 mg/dl Beta-Hydroxybutyric Acid 0.72 mg/dL Bedside Glucose 328 mg/dl 309 mg/dl Assessment and Plan 61-year-old male with 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 Daptomycin added to ceftriaxone, awaiting paracentesis to help guide therapy. Will follow.
[2016-05-11] MEDS ORDERED: ALBUMIN HUMAN 25% 12.5 GM/50 ML VIAL IV SCH (14:00)
--- NOTE | 2016-05-11 14:41 | Progress Note ---
Internal Med Progress Note Date of Service: May 11, 2016. Provider Documentation: SUBJECTIVE: The patient was seen and examined Was admitted yesterday with possible SBP Will have paracentesis and fluid examination today no distress atb rest OBJECTIVE: Vital Signs-as noted below Exam: General-no distress at rest Eyes-normal ENT-normal Neck-supple Lungs-Clear to auscultate bilaterally Heart-Regular Abdomen-Soft,mildly tender ,minimal ascites clinically Extremities-Trace edema bilaterally Neuro-[id number] Lab data as noted below. ASSESSMENT & PLAN: Possible BACTERIAL PERITONITIS h/o BETANCOURT CIRRHOSIS -Paracentesis 05/05/16: Ultrasound-guided diagnostic and therapeutic paracentesis with removal of 8.1 liters of ascites, -Ascitic fluid grew coag-negative staph on 05/10/16 -Patient reports feeling well s/p paracentesis on 05/08. Culture from paracentesis on 05/05 -Plan for diagnostic and therapeutic paracentesis in AM -Has been on start Rocephin -ID consulted for further management-appreciate input -GI consulted for further management -appreciate input -Continue Spirolactone, Lasix -Continue Rifaximin, Lactulose CHRONIC ANEMIA -Hgb 9.2 -continue Iron IDDM with hyperglycemia -BSG >600 on arrival -pharmacy consulted for glycemic control. 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 -s/p IVC filter CHRONIC PAIN SYNDROME -follows with pain management - [facility] -continue Dilaudid -avoid any IV Dilaudid DVT PROPHYLAXIS: SCDs RE: thrombocytopenia, pending procedure CODE STATUS: FULL CODE DISPO: Awaited Vital Signs: Date Time Temp Pulse Resp B/P Pulse Ox O2 Delivery O2 Flow Rate FiO2 05/11/16 13:20 78 120/73 05/11/16 08:00 96 Room Air 05/11/16 07:34 36.7 63 18 98/52 96 Room Air 05/11/16 00:00 Room Air 05/10/16 23:24 36.7 60 18 102/58 97 Room Air 05/10/16 23:20 36.7 60 18 102/58 97 Room Air 05/10/16 16:20 36.7 65 20 113/52 99 Room Air Lab Results: Results Past 24 Hours Test 05/10/16 16:30 05/10/16 16:38 05/10/16 19:31 05/10/16 21:02 Range/Units White Blood Count 4.44 4.8-10.8 K/uL Red Blood Count 3.71 4.7-6.1 M/uL Hemoglobin 9.0 14.0-18.0 g/dL Hematocrit 27.5 42-52 % Mean Corpuscular Volume 74.1 80-100 fL Mean Corpuscular Hemoglobin 24.3 25-34 pg Mean Corpuscular Hemoglobin Concent 32.3 32-36 g/dl Platelet Count 53 130-400 K/uL Neutrophils (%) (Auto) 68.7 % Lymphocytes (%) (Auto) 13.3 % Monocytes (%) (Auto) 13.7 % Eosinophils (%) (Auto) 3.2 % Basophils (%) (Auto) 1.1 % Neutrophils # (Auto) 3.05 1.4-6.5 K/uL Lymphocytes # (Auto) 0.59 1.2-3.4 K/uL Monocytes # (Auto) 0.61 0.11-0.59 K/uL Eosinophils # (Auto) 0.14 0-0.5 K/uL Basophils # (Auto) 0.05 0-0.2 K/uL RDW Standard Deviation 57.5 36.4-46.3 fL RDW Coefficient of Variation 21.1 11.5-14.5 % Immature Granulocyte % (Auto) 0.0 % Immature Granulocyte # (Auto) 0.00 0.00-0.02 K/uL Platelet Estimate DECREASED Giant Platelets 2+ Prothrombin Time 15.0 9.0-12.0 SECONDS Prothromb Time International Ratio 1.4 0.9-1.1 Sodium Level 132 136-145 mmol/L Potassium Level 4.3 3.5-5.1 mmol/L Chloride Level 99 98-107 mmol/L Carbon Dioxide Level 24 21-32 mmol/L Anion Gap 9.0 3-11 mmol/L Blood Urea Nitrogen 12 7-18 mg/dl Creatinine 1.30 0.60-1.40 mg/dl Estimated GFR () 67.8 Estimated GFR (Non- 58.5 BUN/Creatinine Ratio 9.2 10-20 Random Glucose 676 70-99 mg/dl Osmolality 300 280-300 mOsm/kg Calcium Level 7.7 8.5-10.1 mg/dl Magnesium Level 2.0 1.8-2.4 mg/dl Total Bilirubin 1.0 0.2-1 mg/dl Aspartate Amino Transf (AST/SGOT) 20 15-37 U/L Alanine Aminotransferase (ALT/SGPT) 21 12-78 U/L Alkaline Phosphatase 98 45-117 U/L Total Protein 5.1 6.4-8.2 gm/dl Albumin 3.0 3.4-5.0 gm/dl Globulin 2.1 2.5-4.0 gm/dl Albumin/Globulin Ratio 1.4 0.9-2 Beta-Hydroxybutyric Acid 0.76 0.2-2.81 mg/dL Bedside Glucose > 600 384 276 70-99 mg/dl Test 05/10/16 21:47 05/10/16 22:48 05/10/16 23:48 05/11/16 01:45 Range/Units Bedside Glucose 274 259 210 205 70-99 mg/dl Test 05/11/16 06:26 05/11/16 06:59 05/11/16 11:24 Range/Units White Blood Count 4.79 4.8-10.8 K/uL Red Blood Count 3.75 4.7-6.1 M/uL Hemoglobin 9.2 14.0-18.0 g/dL Hematocrit 27.8 42-52 % Mean Corpuscular Volume 74.1 80-100 fL Mean Corpuscular Hemoglobin 24.5 25-34 pg Mean Corpuscular Hemoglobin Concent 33.1 32-36 g/dl Platelet Count 53 130-400 K/uL Neutrophils (%) (Auto) 63.6 % Lymphocytes (%) (Auto) 15.9 % Monocytes (%) (Auto) 12.9 % Eosinophils (%) (Auto) 6.1 % Basophils (%) (Auto) 1.3 % Neutrophils # (Auto) 3.05 1.4-6.5 K/uL Lymphocytes # (Auto) 0.76 1.2-3.4 K/uL Monocytes # (Auto) 0.62 0.11-0.59 K/uL Eosinophils # (Auto) 0.29 0-0.5 K/uL Basophils # (Auto) 0.06 0-0.2 K/uL RDW Standard Deviation 58.6 36.4-46.3 fL RDW Coefficient of Variation 21.5 11.5-14.5 % Immature Granulocyte % (Auto) 0.2 % Immature Granulocyte # (Auto) 0.01 0.00-0.02 K/uL Platelet Estimate DECREASED Sodium Level 138 136-145 mmol/L Potassium Level 4.4 3.5-5.1 mmol/L Chloride Level 103 98-107 mmol/L Carbon Dioxide Level 28 21-32 mmol/L Anion Gap 7.0 3-11 mmol/L Blood Urea Nitrogen 11 7-18 mg/dl Creatinine 1.10 0.60-1.40 mg/dl Est Creatinine Clear Calc Drug Dose 72.2 ml/min Estimated GFR () 82.9 Estimated GFR (Non- 71.6 BUN/Creatinine Ratio 9.9 10-20 Random Glucose 304 70-99 mg/dl Calcium Level 8.0 8.5-10.1 mg/dl Beta-Hydroxybutyric Acid 0.72 0.2-2.81 mg/dL Bedside Glucose 328 309 70-99 mg/dl
[2016-05-11 14:59] VITALS: BP 114/65; PULSE 75; TEMP 37; O2SAT 96
--- NOTE | 2016-05-11 16:00 | DIAGNOSTIC IMAGING REPORT ---
ULTRASOUND-GUIDED therapeutic and diagnostic PARACENTESIS: HISTORY: Ascites. Spontaneous bacterial peritonitis. Procedure: The procedure and its risks, benefits and alternatives were discussed with the patient and written informed consent was obtained. Preliminary ultrasound of the abdomen was performed to determine a safe needle entry site. The left lower quadrant was prepped and draped in the usual sterile fashion. 1% Lidocaine was used for local anesthesia. A paracentesis needle-sheath was inserted into the peritoneal space using ultrasound guidance. The needle was removed and the sheath was connected to tubing and a vacuum suction device. A total of 3.4 liters of yellow ascites was aspirated. The sheath was removed and a sterile dressing applied. The patient tolerated the procedure well and there were no immediate complications. IMPRESSION: Ultrasound-guided diagnostic and therapeutic paracentesis with aspiration of 3.4 liters of ascites. 1 L of ascites was sent to the laboratory for further evaluation at the request of the referring physician. Electronically signed by: Tj Weston M.D. 05/11/2016 3:58 PM Dictated Date/Time: 05/11/2016 3:57 PM
[2016-05-11 16:02] VITALS: BP 108/68; PULSE 67; TEMP 36.7; O2SAT 100
[2016-05-11] MEDS: ALBUMIN HUMAN 25% 12.5 GM/50 ML VIAL IV SCH ×2 (16:34→17:24)
[2016-05-11 17:43] LABS: PERIT FL WBC 149 /uL (0-300); PERITONEAL FLUID RBC < 3000 /uL
[2016-05-11] MEDS: CEFTRIAXONE SOD INJ 2,000 MG in DEXTROSE 5% 50ML 50 ML IV SCH (18:37)
[2016-05-11] MEDS: DAPTOmycin IV 450 MG in SODIUM CHLORIDE 0.9% 50ML 50 ML IV SCH (19:46)
[2016-05-11] MEDS: PYRIDOXINE HCL 50 MG TAB PO SCH (19:54)
[2016-05-11] MEDS: INSULIN GLARGINE SOLOSTAR 100 UNITS/ML 3 ML PEN SC SCH (20:05)
[2016-05-12 00:33] VITALS: BP 110/66; PULSE 70; TEMP 36.9; O2SAT 97
[2016-05-12] MEDS ORDERED: INSULIN ASPART 100 UNITS/ML 3 ML PEN SC ONE (02:00)
[2016-05-12] MEDS: OXYCODONE HCL IR 5 MG TAB (IMMEDIATE RELEASE) PO PRN ×2 (02:19→10:23)
[2016-05-12] MEDS: LEVOTHYROXINE 75 MCG TAB PO SCH (06:00)
[2016-05-12 06:39] LABS: MEAN CORPUSCULAR HGB CONC 33.5 g/dl (32-36)
[2016-05-12 06:53] LABS: HEMATOCRIT 27.2 % (42-52); MEAN CELL VOLUME 72.9 fL (80-100); MEAN CORPUSCULAR HEMOGLOBIN 24.4 pg (25-34); RED BLOOD COUNT 3.73 M/uL (4.7-6.1); WHITE BLOOD COUNT 5.58 K/uL (4.8-10.8)
[2016-05-12 07:09] LABS: BASO % 0.9 %; BASO ABS # 0.05 K/uL (0-0.2); BUN/CREATININE RATIO 11.4 (10-20); CALCIUM 8.4 mg/dl (8.5-10.1); COMPLETE YES; EOS % 3.6 %; IG% 0.2 %; LARGE PLATELETS 2+; LYMPH % 17.9 %; MONO % 12.4 %; PLATELET COUNT 57 K/uL (130-400); PLT ESTIMATE DECREASED; POIKILOCYTOSIS PRESENT; POTASSIUM 3.8 mmol/L (3.5-5.1)
--- NOTE | 2016-05-12 07:16 | Pharmacy Progress Note ---
Glycemic Control: Progress Nt Date of Service May 12, 2016. Scope Glycemic Pharmacist consulted by Rena Ross PA-C on 05/10/16 for glycemic control and to write orders per [facility] inpatient glycemic control protocol. Objective Accuchecks BSG (last 24hrs): Test 05/11/16 11:24 05/11/16 16:19 05/11/16 19:57 05/12/16 02:01 Bedside Glucose 309 mg/dl (70-99) 73 mg/dl (70-99) 226 mg/dl (70-99) 224 mg/dl (70-99) Test 05/12/16 06:08 Laboratory Data (last 24hrs) Test 05/12/16 06:08 White Blood Count 5.58 K/uL Red Blood Count 3.73 M/uL Hemoglobin 9.1 g/dL Hematocrit 27.2 % Mean Corpuscular Volume 72.9 fL Mean Corpuscular Hemoglobin 24.4 pg Mean Corpuscular Hemoglobin Concent 33.5 g/dl HbA1c: Item Value Date Time Hemoglobin A1c 11.6 % H 04/03/16 0554 Estimated Average Glucose 286 mg/dl 04/03/16 0554 Recent Pertinent Medications Outpatient Anti-diabetic Regimen: * Lantus 32 units HS, Novolog TIDM per SS * A1c = 11.6 % 04/03/16 Risk Factors for Insulin Resistance: * Infection: Possible spontaneous bacterial peritonitis * Diet:DM2/Carlos Assessment & Plan ASSESSMENT: * ADA & AACE recommend a goal blood sugar range 140-180 mg/dl for the majority of critically ill & non-critically ill patients. However, more stringent targets may be selected in individual cases. 05/10/16 * 61 yr old T2DM male admitted with severe hyperglycemia possibly secondary to non-compliance and bacterial peritonitis. * Patient presentation is not consistent with DKA/HHS; electrolytes are within normal limits with the exception of slight hyponatremia, normal anion gap, normal osmolality, and patient does not appear to be dehydrated. * The patient reported to Dr. Fabian that he took 30 units of novolog insulin at 1300 today. * Starting IV insulin infusion for BSG > 600 per moderate stress protocol * Received an initial bolus of 5 units IV insulin * Goal Range 250 - 350 mg/dl (will start with higher goal range initially to avoid correcting hyperglycemia too quickly) * Once glycemic control improves, will change goal range to 140 - 180 mg/dL. 05/11/16 * Insulin gtt was stopped late last night. * BSGs remain moderately elevated > 300 mg/dl this morning. * Will tighten Novolog CF/CR. Add an overnight accuchek at 0200. * Will increase Lantus dose by 12%. Will consider adding an additional one time dose of Lantus this morning if BSGs remain moderately elevated prior to lunch. However, pt received Novolog 28 units with breakfast this morning so want to avoid stacking of insulin doses as well. 05/12/16 * Patient is currently receiving an average of 128 units of insulin per day * 44 units of basal insulin * 84 units of prandial/correctional insulin * BSGs ranging 73 - 328 over the past 24hrs (BSG <100 at dinner time due to AM and lunch insulin stacking) * Fasting BSG this AM 131 mg/dL, Lunch is 172 mg/dL- patient trending much better today then yesterday * Patient is known to our service and typically requires ~70-90 units per day * Continue current orders and reassess in 24 hours PLAN FOR INPATIENT GLYCEMIC CONTROL: * Continue Lantus qHS per scale: * For BSG below 110 mg/dl: 15 units * For BSG above 110 mg/dl: 30 units * Novolog ACHS + 00,04 * Continue correction factor of 10 mg/dl/unit * Continue carb ratio of 1 unit per 4 grams CHO consumed * Continue goal range of Low 110 mg/dL - High 140 mg/dL * Please note that the plan above was derived based on current level of insulin resistance and hospital stress. These recommendations are appropriate for inpatient admission only. Plan of care upon discharge will need to be reassessed to avoid potential outpatient hypo/hyperglycemia. Thank you.
[2016-05-12 07:20] VITALS: BP 96/56; PULSE 66; TEMP 36.6; O2SAT 97
[2016-05-12] MEDS: INSULIN ASPART 100 UNITS/ML 3 ML PEN SC SCH ×4 (08:18→21:00)
--- NOTE | 2016-05-12 09:20 | Gastroenterology Progress Note ---
Progress Note Date of Service: May 12, 2016 Subjective Pt evaluation today including: conversation w/ patient, physical exam, chart review, lab review Pt was seen and examined this morning. He reports that he had a rough night and was unable to sleep without his Dilaudid 4mg TID. Reports chronic back pain. Abdominal pain is now more frequent. Starts in bilateral lower quadrants and a sharp cramping pain and is radiating up to mid abdomen. No other associated symptoms. He last moved his bowels yesterday, 2 soft stools. No black or bloody stools. No BM yet today. Denied breakfast due to back and abdominal pain. Paracentesis on 05/11/16 3.4L yellow fluid WBC seen, culture and pathology pending Peritoneal WBC 149 Polynuclear 4.4 PMN 6 Paracentesis on 05/05/16 GRAM STAIN: few WBC seen, no organisms seen OR AER/TIFFANY CULT:COAG NEG STAPH NOT LUGDUNENSIS, NO ANAEROBES ISOLATED. SENSITIVITIES TRIMET/SULFA S <=0.5/ 9.5 * OXACILLIN S <= 0.25 VANCOMYCIN S 2 ERYTHROMYCIN S <=0.5 TETRACYCLINE S <=4 CLINDAMYCIN S <=0.5 DAPTOMYCIN S <=0.5 Review of Systems Constitutional: No chills, No fever Respiratory: No cough, No shortness of breath Cardiac: No chest pain, No edema Abdomen: + pain, No GI bleeding, No constipation, No diarrhea, No nausea, No vomiting Medications Current Inpatient Medications Medications (Trade) Dose Ordered Sig/Ryan Route Start Time Stop Time Status Last Admin Dose Admin Ondansetron HCl (Zofran Inj) 4 mg Q6H PRN IV 05/10/16 16:15 06/09/16 16:14 Glucose (Glucose 40% Gel) 15-30 GRAMS 15 GRAMS... UD PRN PO 05/10/16 16:15 06/09/16 16:14 Glucose (Glucose Chew Tab) 4-8 Tablets 4 Tabl... UD PRN PO 05/10/16 16:15 06/09/16 16:14 Dextrose (Dextrose 50% 50ML Syringe) 25-50ML OF 50% DW IV FOR... UD PRN IV 05/10/16 16:15 06/09/16 16:14 Glucagon (Glucagon Inj) 1 mg UD PRN SQ 05/10/16 16:15 06/09/16 16:14 Miscellaneous Information (Consult Glycemic Management Pharmacy) 1 ea UD PRN N/A 05/10/16 16:15 06/09/16 16:14 Diphenhydramine HCl (Benadryl Cap) 25 mg BID PRN PO 05/10/16 16:45 06/09/16 16:44 05/11/16 19:58 25 MG Escitalopram Oxalate (Lexapro Tab) 10 mg DAILY PO 05/11/16 09:00 06/10/16 08:59 05/11/16 09:31 10 MG Furosemide (Lasix Tab) 20 mg BID17 PO 05/10/16 17:00 06/09/16 16:59 05/11/16 16:35 20 MG Hydromorphone HCl (Dilaudid Tab) 4 mg Q8 PRN PO 05/10/16 16:45 05/24/16 16:44 Future Hold 05/10/16 18:41 4 MG Lactulose (Chronulac Syrup) 20 gm TID PO 05/10/16 21:00 06/09/16 20:59 05/11/16 19:54 20 GM Levetiracetam (Keppra Tab) 500 mg AMHS PO 05/10/16 21:00 06/09/16 20:59 05/11/16 19:54 500 MG Levothyroxine Sodium (Synthroid Tab) 75 mcg DAILYBB PO 05/11/16 06:30 06/10/16 06:29 05/12/16 06:00 75 MCG Magnesium Oxide (Mag-Ox Tab) 400 mg BID PO 05/10/16 21:00 06/09/16 20:59 05/11/16 19:54 400 MG Ondansetron HCl (Zofran Odt) 4 mg Q6H PRN SL 05/10/16 16:45 06/09/16 16:44 Pantoprazole Sodium (Protonix Tab) 40 mg BID PO 05/10/16 21:00 06/09/16 20:59 05/11/16 19:54 40 MG Pregabalin (Lyrica Cap) 75 mg TID PO 05/10/16 21:00 06/09/16 20:59 05/11/16 19:58 75 MG Propranolol HCl (Inderal Tab) 10 mg BID PO 05/10/16 21:00 06/09/16 20:59 05/11/16 19:56 10 MG Rifaximin (Xifaxan Tab) 550 mg AMHS PO 05/10/16 21:00 06/09/16 20:59 05/11/16 19:54 550 MG Spironolactone (Aldactone Tab) 100 mg DAILY PO 05/11/16 09:00 06/10/16 08:59 Triamcinolone Acetonide (Kenalog 0.1% Cream) 1 appln BID PRN EXT 05/10/16 16:45 06/09/16 16:44 Ferrous Sulfate (Feosol Tab) 325 mg BIDM PO 05/10/16 17:00 06/09/16 16:59 05/11/16 16:34 325 MG Pyridoxine HCl 25 mg 25 mg HS PO 05/10/16 21:00 06/09/16 20:59 05/11/16 19:54 25 MG Ceftriaxone Sodium 2000 mg/ Dextrose 70 ml @ 100 mls/hr Q24H IV 05/10/16 18:00 05/20/16 17:59 05/11/16 18:37 100 MLS/HR Daptomycin/Sodium Chloride (Cubicin IV/Nss 50ml) 59 ml @ 100 mls/hr DAILY@2000 IV 05/10/16 20:00 05/20/16 19:59 05/11/16 19:46 100 MLS/HR Oxycodone HCl (Roxicodone Immediate Rel Tab) 5 mg Q4H PRN PO 05/10/16 21:00 05/24/16 20:59 05/12/16 02:19 5 MG Insulin Aspart (novoLOG ASPART) SLIDING SCALE If C... ACHS SC 05/11/16 06:30 06/10/16 06:29 05/11/16 20:04 9 UNITS Insulin Glargine (Lantus Solostar Pen) SEE PROTOCOL TEXT HS SC 05/11/16 21:00 06/10/16 20:59 05/11/16 20:05 36 UNIT Objective Vital Signs Date Time Temp Pulse Resp B/P Pulse Ox O2 Delivery O2 Flow Rate FiO2 05/12/16 07:20 36.6 66 18 96/56 97 Room Air 05/12/16 00:33 36.9 70 20 110/66 97 Room Air 05/12/16 00:00 Room Air 05/11/16 20:00 Nasal Cannula 2.0 05/11/16 16:02 36.7 67 20 108/68 100 Room Air 05/11/16 16:00 Room Air 05/11/16 14:59 37.0 75 18 114/65 96 Room Air 05/11/16 13:20 78 120/73 Physical Exam General Appearance: no apparent distress Eyes: normal inspection, PERRL ENT: hearing grossly normal Neck: supple, trachea midline Respiratory/Chest: lungs clear, normal breath sounds, no respiratory distress, no accessory muscle use Cardiovascular: regular rate, rhythm, no edema, no gallop, no JVD Abdomen: normal bowel sounds, soft, no organomegaly, no pulsatile mass, + tenderness (generalized) Neurologic/Psych: alert, normal mood/affect, oriented x 3 Skin: normal color, warm/dry, no rash Laboratory Results Last 24 Hours Test 05/11/16 11:24 05/11/16 16:19 05/11/16 19:57 05/12/16 02:01 Bedside Glucose 309 mg/dl 73 mg/dl 226 mg/dl 224 mg/dl Test 05/12/16 06:08 05/12/16 07:35 White Blood Count 5.58 K/uL Red Blood Count 3.73 M/uL Hemoglobin 9.1 g/dL Hematocrit 27.2 % Mean Corpuscular Volume 72.9 fL Mean Corpuscular Hemoglobin 24.4 pg Mean Corpuscular Hemoglobin Concent 33.5 g/dl Platelet Count 57 K/uL Neutrophils (%) (Auto) 65.0 % Lymphocytes (%) (Auto) 17.9 % Monocytes (%) (Auto) 12.4 % Eosinophils (%) (Auto) 3.6 % Basophils (%) (Auto) 0.9 % Neutrophils # (Auto) 3.63 K/uL Lymphocytes # (Auto) 1.00 K/uL Monocytes # (Auto) 0.69 K/uL Eosinophils # (Auto) 0.20 K/uL Basophils # (Auto) 0.05 K/uL RDW Standard Deviation 56.9 fL RDW Coefficient of Variation 21.2 % Immature Granulocyte % (Auto) 0.2 % Immature Granulocyte # (Auto) 0.01 K/uL Platelet Estimate DECREASED Large Platelets 2+ Poikilocytosis PRESENT Sodium Level 141 mmol/L Potassium Level 3.8 mmol/L Chloride Level 106 mmol/L Carbon Dioxide Level 27 mmol/L Anion Gap 8.0 mmol/L Blood Urea Nitrogen 11 mg/dl Creatinine 1.00 mg/dl Est Creatinine Clear Calc Drug Dose 77.1 ml/min Estimated GFR () 93.1 Estimated GFR (Non- 80.3 BUN/Creatinine Ratio 11.4 Random Glucose 123 mg/dl Calcium Level 8.4 mg/dl Iron Level 29 mcg/dl Transferrin 119 mg/dl Transferrin % Saturation 17 % Vitamin B12 Level 790 pg/mL 25-Hydroxy Vitamin D Total 8.1 ng/ml Bedside Glucose 131 mg/dl Assessment and Plan Patient is a 61 year old male with recurrent large volume ascites with intermittent abdominal sharp, cramping pain starting in bilateral lower quadrants and radiating up to mid-abdomen. Results of 05/05/16 with coag negative staph. This may be a contaminant. Repeat paracentesis on 05/11/16 with 3L of yellow fluid off. Cultures pending. Plan Follow up cultures when finalized Peritoneal WBC 149 Polynuclear 4.4 PMN 6 Diet as tolerated Outpatient medications as appropriate manage pain but limit narcotic use ?drug seeking Continue IV Rocephin x 5 day course for SBP and IV daptomycin as suggested by ID 05/11/16 MELD: 17 05/05/16 MELD: 8 I have seen and evalauted the patient Recomendations -- await ID input with regard to during of therapy for recent culture -- low sodium diet -- OP referral for a TIPS
[2016-05-12] MEDS: RIFAXIMIN TAB 550 MG TAB PO SCH ×2 (10:13→20:52)
[2016-05-12] MEDS: FERROUS SULFATE 325 MG TAB PO SCH ×2 (10:13→18:07)
[2016-05-12] MEDS: ESCITALOPRAM OXALATE 10 MG TAB PO SCH (10:13)
[2016-05-12] MEDS: FUROSEMIDE 20 MG TAB PO SCH ×2 (10:14→18:07)
[2016-05-12] MEDS: SPIRONOLACTONE 100 MG TAB PO SCH (10:15)
[2016-05-12] MEDS: LEVETIRACETAM 500 MG TAB PO SCH ×2 (10:15→20:52)
[2016-05-12] MEDS: LACTULOSE SYRUP 20 GM/30 ML UDC PO SCH ×3 (10:16→20:52)
[2016-05-12] MEDS: MAGNESIUM OXIDE 400 MG TAB PO SCH ×2 (10:16→20:50)
[2016-05-12] MEDS: PREGABALIN 75 MG CAP PO SCH ×3 (10:17→20:50)
[2016-05-12] MEDS: PANTOprazole SOD 40 MG TAB PO SCH ×2 (10:17→20:51)
[2016-05-12] MEDS: PROPRANOLOL HCL 10 MG TAB PO SCH ×2 (10:18→21:00)
[2016-05-12 14:50] VITALS: BP 93/54; PULSE 64; TEMP 36.7; O2SAT 97
[2016-05-12 16:00] VITALS: O2SAT 97
--- NOTE | 2016-05-12 16:38 | Progress Note ---
Internal Med Progress Note Date of Service: May 12, 2016. Provider Documentation: SUBJECTIVE: The patient was seen and examined Was admitted yesterday with possible SBP Will have paracentesis and fluid examination today no distress at rest S/P Paracentesis 05/11/16 Complains of severe pain in abdomen OBJECTIVE: Vital Signs-as noted below Exam: General-no distress at rest Eyes-normal ENT-normal Neck-supple Lungs-Clear to auscultate bilaterally Heart-Regular Abdomen-Soft,mildly tender to aplpate ,minimal ascites clinically Extremities-Trace edema bilaterally Neuro-AAOPx3 Lab data as noted below. ASSESSMENT & PLAN: Possible BACTERIAL PERITONITIS h/o BETANCOURT CIRRHOSIS -Paracentesis 05/05/16: Ultrasound-guided diagnostic and therapeutic paracentesis with removal of 8.1 liters of ascites, -Ascitic fluid grew coag-negative staph on 05/10/16 -Patient reports feeling well s/p paracentesis on 05/08. Culture from paracentesis on 05/05 -Plan for diagnostic and therapeutic paracentesis in AM -Has been on start Rocephin -ID consulted for further management-appreciate input -GI consulted for further management -appreciate input -Continue Spirolactone, Lasix -Continue Rifaximin, Lactulose -Paracentesis on 05/11/16 3.4L yellow fluid WBC seen, culture and pathology pending-negative Peritoneal WBC 149,Polynuclear 4.4,PMN 6 Paracentesis on 05/05/16 GRAM STAIN: few WBC seen, no organisms seen OR AER/TIFFANY CULT:COAG NEG STAPH NOT LUGDUNENSIS, NO ANAEROBES ISOLATED. SENSITIVITIES TRIMET/SULFA S <=0.5/ 9.5 * OXACILLIN S <= 0.25 VANCOMYCIN S 2 ERYTHROMYCIN S <=0.5 TETRACYCLINE S <=4 CLINDAMYCIN S <=0.5 DAPTOMYCIN S <=0.5 Has been On Dapto and Ceftriaxone Awaiting ID recommendation Pt is clinically better CHRONIC ANEMIA -Hgb 9.2 -continue Iron IDDM with hyperglycemia -BSG >600 on arrival -pharmacy consulted for glycemic control. 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 -continue Dilaudid -avoid any IV Dilaudid DVT PROPHYLAXIS: SCDs RE: thrombocytopenia, pending procedure CODE STATUS: FULL CODE DISPO: Awaited Vital Signs: Date Time Temp Pulse Resp B/P Pulse Ox O2 Delivery O2 Flow Rate FiO2 05/12/16 14:50 36.7 64 18 93/54 97 Room Air 05/12/16 08:00 Room Air 05/12/16 07:20 36.6 66 18 96/56 97 Room Air 05/12/16 00:33 36.9 70 20 110/66 97 Room Air 05/12/16 00:00 Room Air 05/11/16 20:00 Nasal Cannula 2.0 Lab Results: Results Past 24 Hours Test 05/11/16 19:57 05/12/16 02:01 05/12/16 06:08 05/12/16 07:35 Range/Units Bedside Glucose 226 224 131 70-99 mg/dl White Blood Count 5.58 4.8-10.8 K/uL Red Blood Count 3.73 4.7-6.1 M/uL Hemoglobin 9.1 14.0-18.0 g/dL Hematocrit 27.2 42-52 % Mean Corpuscular Volume 72.9 80-100 fL Mean Corpuscular Hemoglobin 24.4 25-34 pg Mean Corpuscular Hemoglobin Concent 33.5 32-36 g/dl Platelet Count 57 130-400 K/uL Neutrophils (%) (Auto) 65.0 % Lymphocytes (%) (Auto) 17.9 % Monocytes (%) (Auto) 12.4 % Eosinophils (%) (Auto) 3.6 % Basophils (%) (Auto) 0.9 % Neutrophils # (Auto) 3.63 1.4-6.5 K/uL Lymphocytes # (Auto) 1.00 1.2-3.4 K/uL Monocytes # (Auto) 0.69 0.11-0.59 K/uL Eosinophils # (Auto) 0.20 0-0.5 K/uL Basophils # (Auto) 0.05 0-0.2 K/uL RDW Standard Deviation 56.9 36.4-46.3 fL RDW Coefficient of Variation 21.2 11.5-14.5 % Immature Granulocyte % (Auto) 0.2 % Immature Granulocyte # (Auto) 0.01 0.00-0.02 K/uL Platelet Estimate DECREASED Large Platelets 2+ Poikilocytosis PRESENT Sodium Level 141 136-145 mmol/L Potassium Level 3.8 3.5-5.1 mmol/L Chloride Level 106 98-107 mmol/L Carbon Dioxide Level 27 21-32 mmol/L Anion Gap 8.0 3-11 mmol/L Blood Urea Nitrogen 11 7-18 mg/dl Creatinine 1.00 0.60-1.40 mg/dl Est Creatinine Clear Calc Drug Dose 77.1 ml/min Estimated GFR () 93.1 Estimated GFR (Non- 80.3 BUN/Creatinine Ratio 11.4 10-20 Random Glucose 123 70-99 mg/dl Calcium Level 8.4 8.5-10.1 mg/dl Iron Level 29 35-175 mcg/dl Transferrin 119 200-360 mg/dl Transferrin % Saturation 17 20-50 % Vitamin B12 Level 790 211-911 pg/mL 25-Hydroxy Vitamin D Total 8.1 30-100 ng/ml Test 05/12/16 11:13 Range/Units Bedside Glucose 172 70-99 mg/dl
--- NOTE | 2016-05-12 17:41 | Infectious Disease Progress Nt ---
Progress Note Date of Service May 12, 2016. Subjective Pt evaluation today including: conversation w/ patient, physical exam, chart review, lab review, review of studies, conversation w/ consultant in ergonomics and safety, review of inpatient medication list Patient feeling better after paracentesis. Remains afebrile. Ascitic fluid studies unremarkable thus far. No other new complaints. All Other Systems: Reviewed and Negative Medications Current Inpatient Medications Medications (Trade) Dose Ordered Sig/Ryan Route Start Time Stop Time Status Last Admin Dose Admin Ondansetron HCl (Zofran Inj) 4 mg Q6H PRN IV 05/10/16 16:15 06/09/16 16:14 Glucose (Glucose 40% Gel) 15-30 GRAMS 15 GRAMS... UD PRN PO 05/10/16 16:15 06/09/16 16:14 Glucose (Glucose Chew Tab) 4-8 Tablets 4 Tabl... UD PRN PO 05/10/16 16:15 06/09/16 16:14 Dextrose (Dextrose 50% 50ML Syringe) 25-50ML OF 50% DW IV FOR... UD PRN IV 05/10/16 16:15 06/09/16 16:14 Glucagon (Glucagon Inj) 1 mg UD PRN SQ 05/10/16 16:15 06/09/16 16:14 Miscellaneous Information (Consult Glycemic Management Pharmacy) 1 ea UD PRN N/A 05/10/16 16:15 06/09/16 16:14 Diphenhydramine HCl (Benadryl Cap) 25 mg BID PRN PO 05/10/16 16:45 06/09/16 16:44 05/11/16 19:58 25 MG Escitalopram Oxalate (Lexapro Tab) 10 mg DAILY PO 05/11/16 09:00 06/10/16 08:59 05/12/16 10:13 10 MG Furosemide (Lasix Tab) 20 mg BID17 PO 05/10/16 17:00 06/09/16 16:59 05/12/16 10:14 20 MG Hydromorphone HCl (Dilaudid Tab) 4 mg Q8 PRN PO 05/10/16 16:45 05/24/16 16:44 Future Hold 05/10/16 18:41 4 MG Lactulose (Chronulac Syrup) 20 gm TID PO 05/10/16 21:00 06/09/16 20:59 4/7/17 13:44 20 GM Levetiracetam (Keppra Tab) 500 mg AMHS PO 05/10/16 21:00 06/09/16 20:59 05/12/16 10:15 500 MG Levothyroxine Sodium (Synthroid Tab) 75 mcg DAILYBB PO 05/11/16 06:30 06/10/16 06:29 05/12/16 06:00 75 MCG Magnesium Oxide (Mag-Ox Tab) 400 mg BID PO 05/10/16 21:00 06/09/16 20:59 05/12/16 10:16 400 MG Ondansetron HCl (Zofran Odt) 4 mg Q6H PRN SL 05/10/16 16:45 06/09/16 16:44 Pantoprazole Sodium (Protonix Tab) 40 mg BID PO 05/10/16 21:00 06/09/16 20:59 05/12/16 10:17 40 MG Pregabalin (Lyrica Cap) 75 mg TID PO 05/10/16 21:00 06/09/16 20:59 05/12/16 13:44 75 MG Propranolol HCl (Inderal Tab) 10 mg BID PO 05/10/16 21:00 06/09/16 20:59 05/11/16 19:56 10 MG Rifaximin (Xifaxan Tab) 550 mg AMHS PO 05/10/16 21:00 06/09/16 20:59 05/12/16 10:13 550 MG Spironolactone (Aldactone Tab) 100 mg DAILY PO 05/11/16 09:00 06/10/16 08:59 05/12/16 10:15 100 MG Triamcinolone Acetonide (Kenalog 0.1% Cream) 1 appln BID PRN EXT 05/10/16 16:45 06/09/16 16:44 Ferrous Sulfate (Feosol Tab) 325 mg BIDM PO 05/10/16 17:00 06/09/16 16:59 05/12/16 10:13 325 MG Pyridoxine HCl 25 mg 25 mg HS PO 05/10/16 21:00 06/09/16 20:59 05/11/16 19:54 25 MG Ceftriaxone Sodium 2000 mg/ Dextrose 70 ml @ 100 mls/hr Q24H IV 05/10/16 18:00 05/20/16 17:59 05/11/16 18:37 100 MLS/HR Daptomycin/Sodium Chloride (Cubicin IV/Nss 50ml) 59 ml @ 100 mls/hr DAILY@2000 IV 05/10/16 20:00 05/20/16 19:59 05/11/16 19:46 100 MLS/HR Oxycodone HCl (Roxicodone Immediate Rel Tab) 5 mg Q4H PRN PO 05/10/16 21:00 05/24/16 20:59 05/12/16 10:23 5 MG Insulin Aspart (novoLOG ASPART) SLIDING SCALE If C... ACHS SC 05/11/16 06:30 06/10/16 06:29 05/12/16 12:34 22 UNITS Insulin Glargine (Lantus Solostar Pen) SEE PROTOCOL TEXT HS SC 05/11/16 21:00 06/10/16 20:59 05/11/16 20:05 36 UNIT Hydromorphone HCl (Dilaudid Tab) 2 mg Q8H PRN PO 05/12/16 16:30 05/26/16 16:29 Ergocalciferol (Vitamin D Cap) 50,000 interunit Fr@2100 PO 05/12/16 21:00 06/16/16 21:01 Cholecalciferol (Vitamin D Tab) 400 inter.unit DAILY PO 06/17/16 09:00 07/17/16 08:59 Objective Vital Signs Date Time Temp Pulse Resp B/P Pulse Ox O2 Delivery O2 Flow Rate FiO2 05/12/16 14:50 36.7 64 18 93/54 97 Room Air 05/12/16 08:00 Room Air 05/12/16 07:20 36.6 66 18 96/56 97 Room Air 05/12/16 00:33 36.9 70 20 110/66 97 Room Air 05/12/16 00:00 Room Air 05/11/16 20:00 Nasal Cannula 2.0 Physical Exam General Appearance: WD/WN, no apparent distress Eyes: normal inspection, sclerae normal ENT: normal ENT inspection, pharynx normal Neck: supple, no adenopathy, trachea midline Respiratory/Chest: chest non-tender, lungs clear, normal breath sounds, no respiratory distress Cardiovascular: regular rate, rhythm, no gallop, no murmur Abdomen: normal bowel sounds, non tender, soft, no organomegaly, + distended Extremities: non-tender, no calf tenderness Neurologic/Psychiatric: alert, oriented x 3 Skin: normal color, warm/dry, no rash Lymphatic: no adenopathy Laboratory Results RUN DATE: 05/12/16 [facility] LAB PAGE 1 RUN TIME: 1223 Specimen Inquiry PATIENT: JANNIE CHÁVEZ LOC: [id number] U # : [id number] AGE/SX: 61/M ROOM: [facility] REG : 05/10/[address]: Ksenia Hanks M.D. : 1955 BED: 1 DIS : STATUS: ADM IN TLOC: SPEC #: [id number] GUY: 05/11/16-UNK STATUS: RES REQ #: [id number] RECD: 05/11/16-[address]: Yvonne Fabian DO SOURCE: PER FLD ENTR: 05/11/[address]: Luis Antonio Gonzalez MD SPDESC: Ksenia Hanks M.D. Duncan, Marten B., Chacha Jones D.O. ORDERED: AER/TIFFANY CULTSMR COMMENTS: Has Specimen Been Obtained/Collected? Y Procedure Result Verified Site GRAM STAIN Final 05/12/16-807 RESULT MANY WBCs SEEN NO ORGANISMS SEEN OR AER/TIFFANY CULT Preliminary 05/12/16-1223 NO GROWTH TO DATE. Last 24 Hours Test 05/11/16 19:57 05/12/16 02:01 05/12/16 06:08 05/12/16 07:35 Bedside Glucose 226 mg/dl 224 mg/dl 131 mg/dl White Blood Count 5.58 K/uL Red Blood Count 3.73 M/uL Hemoglobin 9.1 g/dL Hematocrit 27.2 % Mean Corpuscular Volume 72.9 fL Mean Corpuscular Hemoglobin 24.4 pg Mean Corpuscular Hemoglobin Concent 33.5 g/dl Platelet Count 57 K/uL Neutrophils (%) (Auto) 65.0 % Lymphocytes (%) (Auto) 17.9 % Monocytes (%) (Auto) 12.4 % Eosinophils (%) (Auto) 3.6 % Basophils (%) (Auto) 0.9 % Neutrophils # (Auto) 3.63 K/uL Lymphocytes # (Auto) 1.00 K/uL Monocytes # (Auto) 0.69 K/uL Eosinophils # (Auto) 0.20 K/uL Basophils # (Auto) 0.05 K/uL RDW Standard Deviation 56.9 fL RDW Coefficient of Variation 21.2 % Immature Granulocyte % (Auto) 0.2 % Immature Granulocyte # (Auto) 0.01 K/uL Platelet Estimate DECREASED Large Platelets 2+ Poikilocytosis PRESENT Sodium Level 141 mmol/L Potassium Level 3.8 mmol/L Chloride Level 106 mmol/L Carbon Dioxide Level 27 mmol/L Anion Gap 8.0 mmol/L Blood Urea Nitrogen 11 mg/dl Creatinine 1.00 mg/dl Est Creatinine Clear Calc Drug Dose 77.1 ml/min Estimated GFR () 93.1 Estimated GFR (Non- 80.3 BUN/Creatinine Ratio 11.4 Random Glucose 123 mg/dl Calcium Level 8.4 mg/dl Iron Level 29 mcg/dl Transferrin 119 mg/dl Transferrin % Saturation 17 % Vitamin B12 Level 790 pg/mL 25-Hydroxy Vitamin D Total 8.1 ng/ml Test 05/12/16 11:13 05/12/16 16:27 Bedside Glucose 172 mg/dl 170 mg/dl Assessment and Plan 61-year-old male with 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 Daptomycin added to ceftriaxone, paracentesis with negative gram stain, low WBC and protein. Will continue current Rx pending final culture results.
[2016-05-12] MEDS: CEFTRIAXONE SOD INJ 2,000 MG in DEXTROSE 5% 50ML 50 ML IV SCH (18:05)
[2016-05-12] MEDS: DAPTOmycin IV 450 MG in SODIUM CHLORIDE 0.9% 50ML 50 ML IV SCH (20:40)
[2016-05-12] MEDS: HYDROmorphone HCL 2 MG TAB PO PRN (20:47)
[2016-05-12] MEDS ORDERED: ERGOCALCIFEROL 50,000 INTER.UNIT CAP PO SCH (21:00)
[2016-05-12] MEDS: PYRIDOXINE HCL 50 MG TAB PO SCH (21:03)
[2016-05-12] MEDS: INSULIN GLARGINE SOLOSTAR 100 UNITS/ML 3 ML PEN SC SCH (21:22)
[2016-05-12 23:49] VITALS: BP 93/57; PULSE 78; TEMP 36.8; O2SAT 95
[2016-05-13] MEDS: OXYCODONE HCL IR 5 MG TAB (IMMEDIATE RELEASE) PO PRN ×3 (00:10→20:32)
[2016-05-13] MEDS ORDERED: INSULIN ASPART 100 UNITS/ML 3 ML PEN SC SCH (02:00)
[2016-05-13] MEDS: HYDROmorphone HCL 2 MG TAB PO PRN ×3 (05:27→23:48)
[2016-05-13] MEDS: ONDANSETRON INJ 2 MG/ML 2 ML VIAL IV PRN (05:35)
[2016-05-13 05:57] LABS: MEAN CORPUSCULAR HGB CONC 32.9 g/dl (32-36)
[2016-05-13 06:14] LABS: HEMATOCRIT 28.9 % (42-52); MEAN CELL VOLUME 73.5 fL (80-100); MEAN CORPUSCULAR HEMOGLOBIN 24.2 pg (25-34); RED BLOOD COUNT 3.93 M/uL (4.7-6.1); WHITE BLOOD COUNT 5.43 K/uL (4.8-10.8)
[2016-05-13 06:20] LABS: BUN/CREATININE RATIO 12.6 (10-20); CALCIUM 8.4 mg/dl (8.5-10.1); CREATININE 1.1 mg/dl (0.60-1.40); POTASSIUM 3.9 mmol/L (3.5-5.1)
[2016-05-13 06:43] LABS: ANISOCYTOSIS PRESENT; BASO % 1.1 %; BASO ABS # 0.06 K/uL (0-0.2); COMPLETE YES; EOS % 4.8 %; IG% 0.2 %; LARGE PLATELETS 3+; LYMPH % 15.3 %; LYMPH ABS # 0.83 K/uL (1.2-3.4); MONO % 13.1 %; NEUT % 65.5 %; PLATELET COUNT 52 K/uL (130-400); PLT ESTIMATE DECREASED; POIKILOCYTOSIS PRESENT
[2016-05-13] MEDS: LEVOTHYROXINE 75 MCG TAB PO SCH (07:35)
[2016-05-13 07:46] VITALS: BP 106/66; PULSE 69; TEMP 36.9; O2SAT 90
[2016-05-13] MEDS: ESCITALOPRAM OXALATE 10 MG TAB PO SCH (08:04)
[2016-05-13] MEDS: LEVETIRACETAM 500 MG TAB PO SCH ×2 (08:04→20:24)
[2016-05-13] MEDS: SPIRONOLACTONE 100 MG TAB PO SCH (08:04)
[2016-05-13] MEDS: RIFAXIMIN TAB 550 MG TAB PO SCH ×2 (08:05→20:26)
[2016-05-13] MEDS: PANTOprazole SOD 40 MG TAB PO SCH ×2 (08:05→20:26)
[2016-05-13] MEDS: FERROUS SULFATE 325 MG TAB PO SCH ×2 (08:05→17:06)
[2016-05-13 08:06] VITALS: O2SAT 90
[2016-05-13] MEDS: MAGNESIUM OXIDE 400 MG TAB PO SCH ×2 (08:06→20:25)
[2016-05-13] MEDS: PROPRANOLOL HCL 10 MG TAB PO SCH ×2 (08:06→20:24)
[2016-05-13] MEDS: LACTULOSE SYRUP 20 GM/30 ML UDC PO SCH ×3 (08:07→20:19)
[2016-05-13] MEDS: FUROSEMIDE 20 MG TAB PO SCH ×2 (08:07→17:07)
[2016-05-13] MEDS: INSULIN ASPART 100 UNITS/ML 3 ML PEN SC SCH ×4 (08:17→20:26)
[2016-05-13] MEDS: PREGABALIN 75 MG CAP PO SCH ×3 (08:18→20:24)
[2016-05-13 15:05] VITALS: BP 110/65; PULSE 65; TEMP 36.7; O2SAT 95
--- NOTE | 2016-05-13 15:23 | Progress Note ---
Internal Med Progress Note Date of Service: May 13, 2016. Provider Documentation: SUBJECTIVE: The patient was seen and examined Was admitted yesterday with possible SBP Will have paracentesis and fluid examination today no distress at rest S/P Paracentesis 05/11/16 Abdominal Pain is much better today OBJECTIVE: Vital Signs-as noted below Exam: General-no distress at rest Eyes-normal ENT-normal Neck-supple Lungs-Clear to auscultate bilaterally Heart-Regular Abdomen-Soft,mildly tender to aplpate ,minimal ascites clinically Extremities-Trace edema bilaterally Neuro-AAOPx3 Lab data as noted below. ASSESSMENT & PLAN: Possible BACTERIAL PERITONITIS h/o BETANCOURT CIRRHOSIS -Paracentesis 05/05/16: Ultrasound-guided diagnostic and therapeutic paracentesis with removal of 8.1 liters of ascites, -Ascitic fluid grew coag-negative staph on 05/10/16 -Patient reports feeling well s/p paracentesis on 05/08. Culture from paracentesis on 05/05 -Plan for diagnostic and therapeutic paracentesis in AM -Has been on start Rocephin -ID consulted for further management-appreciate input -GI consulted for further management -appreciate input -Continue Spirolactone, Lasix -Continue Rifaximin, Lactulose -Paracentesis on 05/11/16 3.4L yellow fluid WBC seen, culture and pathology pending-negative Peritoneal WBC 149,Polynuclear 4.4,PMN 6 Paracentesis on 05/05/16 GRAM STAIN: few WBC seen, no organisms seen OR AER/TIFFANY CULT:COAG NEG STAPH NOT LUGDUNENSIS, NO ANAEROBES ISOLATED. SENSITIVITIES TRIMET/SULFA S <=0.5/ 9.5 * OXACILLIN S <= 0.25 VANCOMYCIN S 2 ERYTHROMYCIN S <=0.5 TETRACYCLINE S <=4 CLINDAMYCIN S <=0.5 DAPTOMYCIN S <=0.5 Has been On Dapto and Ceftriaxone Awaiting ID recommendation Pt is clinically better Continue current treatment CHRONIC ANEMIA -Hgb 9.2 ,stable -continue Iron IDDM with hyperglycemia -BSG >600 on arrival -pharmacy consulted for glycemic control. Will start insulin drip for BSG >600 -BSG AC HS -well controlled ANXIETY -continue Lexapro -repeat pending -avoid anticoagulation/antiplatelet as able Pancytopenia with thrombocytopenia Chronic issue Likely secondary to liver cirrhosis will monitor-improving but not the platelet Remains stable HYPOTHYROIDISM -continue Synthroid SEIZURES -continue Keppra H/O PULMONARY EMBOLISM -not a candidate for assisted anticoagulation -s/p IVC filter CHRONIC PAIN SYNDROME -follows with pain management - [facility] -continue Dilaudid -avoid any IV Dilaudid DVT PROPHYLAXIS: SCDs RE: thrombocytopenia, pending procedure CODE STATUS: FULL CODE DISPO: Likely home on Sunday Vital Signs: Date Time Temp Pulse Resp B/P Pulse Ox O2 Delivery O2 Flow Rate FiO2 05/13/16 15:05 36.7 65 16 110/65 95 Room Air 05/13/16 08:06 90 Room Air 05/13/16 08:00 Room Air 05/13/16 07:46 36.9 69 18 106/66 90 Room Air 05/12/16 23:59 Room Air 05/12/16 23:49 36.8 78 22 93/57 95 Room Air 05/12/16 16:00 97 Room Air Lab Results: Results Past 24 Hours Test 05/12/16 16:27 05/12/16 20:16 05/12/16 22:39 05/13/16 05:07 Range/Units Bedside Glucose 170 115 153 70-99 mg/dl White Blood Count 5.43 4.8-10.8 K/uL Red Blood Count 3.93 4.7-6.1 M/uL Hemoglobin 9.5 14.0-18.0 g/dL Hematocrit 28.9 42-52 % Mean Corpuscular Volume 73.5 80-100 fL Mean Corpuscular Hemoglobin 24.2 25-34 pg Mean Corpuscular Hemoglobin Concent 32.9 32-36 g/dl Platelet Count 52 130-400 K/uL Neutrophils (%) (Auto) 65.5 % Lymphocytes (%) (Auto) 15.3 % Monocytes (%) (Auto) 13.1 % Eosinophils (%) (Auto) 4.8 % Basophils (%) (Auto) 1.1 % Neutrophils # (Auto) 3.56 1.4-6.5 K/uL Lymphocytes # (Auto) 0.83 1.2-3.4 K/uL Monocytes # (Auto) 0.71 0.11-0.59 K/uL Eosinophils # (Auto) 0.26 0-0.5 K/uL Basophils # (Auto) 0.06 0-0.2 K/uL RDW Standard Deviation 58.1 36.4-46.3 fL RDW Coefficient of Variation 21.5 11.5-14.5 % Immature Granulocyte % (Auto) 0.2 % Immature Granulocyte # (Auto) 0.01 0.00-0.02 K/uL Platelet Estimate DECREASED Large Platelets 3+ Poikilocytosis PRESENT Anisocytosis PRESENT Sodium Level 140 136-145 mmol/L Potassium Level 3.9 3.5-5.1 mmol/L Chloride Level 104 98-107 mmol/L Carbon Dioxide Level 29 21-32 mmol/L Anion Gap 7.0 3-11 mmol/L Blood Urea Nitrogen 14 7-18 mg/dl Creatinine 1.10 0.60-1.40 mg/dl Est Creatinine Clear Calc Drug Dose 70.1 ml/min Estimated GFR () 82.9 Estimated GFR (Non- 71.6 BUN/Creatinine Ratio 12.6 10-20 Random Glucose 238 70-99 mg/dl Calcium Level 8.4 8.5-10.1 mg/dl Total Bilirubin 0.8 0.2-1 mg/dl Direct Bilirubin 0.4 0-0.2 mg/dl Aspartate Amino Transf (AST/SGOT) 28 15-37 U/L Alanine Aminotransferase (ALT/SGPT) 26 12-78 U/L Alkaline Phosphatase 92 45-117 U/L Total Protein 5.2 6.4-8.2 gm/dl Albumin 3.0 3.4-5.0 gm/dl Test 05/13/16 07:29 05/13/16 11:15 Range/Units Bedside Glucose 205 222 70-99 mg/dl
[2016-05-13 16:03] VITALS: O2SAT 96
[2016-05-13] MEDS: CEFTRIAXONE SOD INJ 2,000 MG in DEXTROSE 5% 50ML 50 ML IV SCH (17:47)
[2016-05-13] MEDS: DAPTOmycin IV 450 MG in SODIUM CHLORIDE 0.9% 50ML 50 ML IV SCH (20:19)
[2016-05-13] MEDS: PYRIDOXINE HCL 50 MG TAB PO SCH (20:25)
[2016-05-13] MEDS: INSULIN GLARGINE SOLOSTAR 100 UNITS/ML 3 ML PEN SC SCH (20:34)
[2016-05-13 23:59] VITALS: BP 105/64; PULSE 68; TEMP 37; O2SAT 97
[2016-05-14] MEDS: ONDANSETRON INJ 2 MG/ML 2 ML VIAL IV PRN ×3 (06:02→18:24)
[2016-05-14] MEDS: LEVOTHYROXINE 75 MCG TAB PO SCH (06:02)
[2016-05-14] MEDS: OXYCODONE HCL IR 5 MG TAB (IMMEDIATE RELEASE) PO PRN ×3 (06:02→18:23)
[2016-05-14] MEDS: FERROUS SULFATE 325 MG TAB PO SCH ×2 (07:44→17:00)
[2016-05-14] MEDS: PANTOprazole SOD 40 MG TAB PO SCH ×2 (07:44→20:25)
[2016-05-14 07:45] VITALS: BP 98/66; PULSE 65; TEMP 36.5; O2SAT 99
[2016-05-14] MEDS: MAGNESIUM OXIDE 400 MG TAB PO SCH ×2 (07:45→20:26)
[2016-05-14] MEDS: LEVETIRACETAM 500 MG TAB PO SCH ×2 (07:45→20:26)
[2016-05-14] MEDS: ESCITALOPRAM OXALATE 10 MG TAB PO SCH (07:45)
[2016-05-14] MEDS: FUROSEMIDE 20 MG TAB PO SCH ×2 (07:45→17:01)
[2016-05-14] MEDS: RIFAXIMIN TAB 550 MG TAB PO SCH ×2 (07:46→20:26)
[2016-05-14] MEDS: SPIRONOLACTONE 100 MG TAB PO SCH (07:46)
[2016-05-14] MEDS: PROPRANOLOL HCL 10 MG TAB PO SCH ×2 (07:46→20:25)
[2016-05-14] MEDS: LACTULOSE SYRUP 20 GM/30 ML UDC PO SCH ×3 (07:47→20:25)
[2016-05-14] MEDS: PREGABALIN 75 MG CAP PO SCH ×3 (07:54→20:25)
[2016-05-14] MEDS: INSULIN ASPART 100 UNITS/ML 3 ML PEN SC SCH ×4 (08:07→21:02)
--- NOTE | 2016-05-14 10:34 | Pharmacy Progress Note ---
Glycemic Control: Progress Nt Date of Service May 14, 2016. Scope Glycemic Pharmacist consulted by Rena Ross PA-C on 05/10/16 for glycemic control and to write orders per [facility] inpatient glycemic control protocol. Objective Accuchecks BSG (last 24hrs): Test 05/13/16 11:15 05/13/16 16:12 05/13/16 20:16 05/14/16 07:27 Bedside Glucose 222 mg/dl (70-99) 76 mg/dl (70-99) 93 mg/dl (70-99) 192 mg/dl (70-99) Recent Pertinent Medications Outpatient Anti-diabetic Regimen: * Lantus 32 units HS, Novolog TIDM per SS * A1c = 11.6 % 04/03/16 Risk Factors for Insulin Resistance: * Infection * Diet Assessment & Plan ASSESSMENT: * ADA & AACE recommend a goal blood sugar range 140-180 mg/dl for the majority of critically ill & non-critically ill patients. However, more stringent targets may be selected in individual cases. 05/14/16 * 61 yr old T2DM male admitted 05/10/16 with severe hyperglycemia possibly secondary to non-compliance and bacterial peritonitis. * Pt was initiated on an insulin drip for less than 12 hours, then transitioned to SQ basal/bolus regimen * He is well known to our glycemic service from prior admissions, and we initiated a similar regimen, estimating needs to be ~70-90 units per day * Over the last 24 hours, patient received a total of 77 units * 18 units of basal insulin * 59 units of prandial/correctional insulin * BSGs ranging 76 - 222 mg/dL * Yesterday I had plans to increase his Lantus; but given half dose parameters in the order combined with patient's BSGs dramatically trending down <100 mg/dL at bedtime check, he received a half dose instead of a full of Lantus. * My plan today will be to remove the half dose, and schedule Lantus based on 50 /50 split of estimated needs (~70-80 units/day) * Loosen Novolog to avoid hypoglycemia as patient trended <100 mg/dL X 2 checks last evening * Reassess in the AM PLAN FOR INPATIENT GLYCEMIC CONTROL: * Change Lantus to 35 units HS * Novolog ACHS * Loosen correction factor to 15 mg/dl/unit * Loosen carb ratio to 1 unit per 5 grams CHO consumed * Continue goal range of Low 110 mg/dL - High 140 mg/dL * Please note that the plan above was derived based on current level of insulin resistance and hospital stress. These recommendations are appropriate for inpatient admission only. Plan of care upon discharge will need to be reassessed to avoid potential outpatient hypo/hyperglycemia. Thank you.
[2016-05-14] MEDS: HYDROmorphone HCL 2 MG TAB PO PRN (15:34)
[2016-05-14 15:38] VITALS: BP 103/69; PULSE 66; TEMP 36.9; O2SAT 99
--- NOTE | 2016-05-14 16:22 | Progress Note ---
Internal Med Progress Note Date of Service: May 14, 2016. Provider Documentation: SUBJECTIVE: The patient was seen and examined Was admitted yesterday with possible SBP S/P Paracentesis 05/11/16 Abdominal Pain is much better No fever,chills Has diarrhea OBJECTIVE: Vital Signs-as noted below Exam: General-no distress at rest Eyes-normal ENT-normal Neck-supple Lungs-Clear to auscultate bilaterally Heart-Regular Abdomen-Soft,mildly tender to aplpate ,minimal ascites clinically Extremities-Trace edema bilaterally Neuro-AAOPx3 Lab data as noted below. ASSESSMENT & PLAN: Possible BACTERIAL PERITONITIS h/o BETANCOURT CIRRHOSIS -Paracentesis 05/05/16: Ultrasound-guided diagnostic and therapeutic paracentesis with removal of 8.1 liters of ascites, -Ascitic fluid grew coag-negative staph on 05/10/16 -Patient reports feeling well s/p paracentesis on 05/08. Culture from paracentesis on 05/05 -Plan for diagnostic and therapeutic paracentesis in AM -Has been on start Rocephin -ID consulted for further management-appreciate input -GI consulted for further management -appreciate input -Continue Spirolactone, Lasix -Continue Rifaximin, Lactulose -Paracentesis on 05/11/16 3.4L yellow fluid WBC seen, culture and pathology pending-negative Peritoneal WBC 149,Polynuclear 4.4,PMN 6 Paracentesis on 05/05/16 GRAM STAIN: few WBC seen, no organisms seen OR AER/TIFFANY CULT:COAG NEG STAPH NOT LUGDUNENSIS, NO ANAEROBES ISOLATED. SENSITIVITIES TRIMET/SULFA S <=0.5/ 9.5 * OXACILLIN S <= 0.25 VANCOMYCIN S 2 ERYTHROMYCIN S <=0.5 TETRACYCLINE S <=4 CLINDAMYCIN S <=0.5 DAPTOMYCIN S <=0.5 Has been On Dapto and Ceftriaxone Awaiting ID recommendation Pt is clinically better Continue current treatment Likely discharge tomorrow Diarrhea 4 times since this morning check stool for D Diff toxin and C/S CHRONIC ANEMIA -Hgb 9.2 ,stable -continue Iron IDDM with hyperglycemia -BSG >600 on arrival -pharmacy consulted for glycemic control. Will start insulin drip for BSG >600 -BSG AC HS -well controlled ANXIETY -continue Lexapro -repeat pending -avoid anticoagulation/antiplatelet as able Pancytopenia with thrombocytopenia Chronic issue Likely secondary to liver cirrhosis will monitor-improving but not the platelet Remains stable HYPOTHYROIDISM -continue Synthroid SEIZURES -continue Keppra H/O PULMONARY EMBOLISM -not a candidate for half-way anticoagulation -s/p IVC filter CHRONIC PAIN SYNDROME -follows with pain management - [facility] -continue Dilaudid -avoid any IV Dilaudid DVT PROPHYLAXIS: SCDs RE: thrombocytopenia, pending procedure CODE STATUS: FULL CODE DISPO: Likely home on Sunday Vital Signs: Date Time Temp Pulse Resp B/P Pulse Ox O2 Delivery O2 Flow Rate FiO2 05/14/16 15:38 36.9 66 18 103/69 99 Room Air 05/14/16 08:00 Room Air 05/14/16 07:45 36.5 65 18 98/66 99 Room Air 65 05/14/16 00:00 Room Air 05/13/16 23:59 37.0 68 16 105/64 97 Room Air Lab Results: Results Past 24 Hours Test 05/13/16 20:16 05/14/16 07:27 05/14/16 11:19 Range/Units Bedside Glucose 93 192 318 70-99 mg/dl
[2016-05-14] MEDS: CEFTRIAXONE SOD INJ 2,000 MG in DEXTROSE 5% 50ML 50 ML IV SCH (18:12)
[2016-05-14] MEDS: DAPTOmycin IV 450 MG in SODIUM CHLORIDE 0.9% 50ML 50 ML IV SCH (20:25)
[2016-05-14] MEDS: PYRIDOXINE HCL 50 MG TAB PO SCH (20:32)
[2016-05-14] MEDS: INSULIN GLARGINE SOLOSTAR 100 UNITS/ML 3 ML PEN SC SCH (21:03)
[2016-05-15 00:39] VITALS: BP 97/57; PULSE 68; TEMP 36.9; O2SAT 96
[2016-05-15] MEDS: ONDANSETRON INJ 2 MG/ML 2 ML VIAL IV PRN ×2 (03:06→11:57)
[2016-05-15] MEDS: HYDROmorphone HCL 2 MG TAB PO PRN ×2 (03:06→11:57)
[2016-05-15] MEDS: LEVOTHYROXINE 75 MCG TAB PO SCH (06:30)
[2016-05-15 07:47] VITALS: BP 104/68; PULSE 58; TEMP 36.7; O2SAT 99
[2016-05-15 07:54] VITALS: O2SAT 99
[2016-05-15] MEDS: OXYCODONE HCL IR 5 MG TAB (IMMEDIATE RELEASE) PO PRN ×2 (08:16→17:45)
[2016-05-15] MEDS: FERROUS SULFATE 325 MG TAB PO SCH ×2 (08:17→17:37)
[2016-05-15] MEDS: PREGABALIN 75 MG CAP PO SCH ×3 (08:17→20:53)
[2016-05-15] MEDS: ESCITALOPRAM OXALATE 10 MG TAB PO SCH (08:18)
[2016-05-15] MEDS: RIFAXIMIN TAB 550 MG TAB PO SCH ×2 (08:18→20:48)
[2016-05-15] MEDS: MAGNESIUM OXIDE 400 MG TAB PO SCH ×2 (08:18→20:48)
[2016-05-15] MEDS: PROPRANOLOL HCL 10 MG TAB PO SCH ×2 (08:19→20:49)
[2016-05-15] MEDS: LACTULOSE SYRUP 20 GM/30 ML UDC PO SCH ×3 (08:20→20:48)
[2016-05-15] MEDS: LEVETIRACETAM 500 MG TAB PO SCH ×2 (08:20→20:50)
[2016-05-15] MEDS: FUROSEMIDE 20 MG TAB PO SCH ×2 (08:20→17:39)
[2016-05-15] MEDS: PANTOprazole SOD 40 MG TAB PO SCH ×2 (08:20→20:49)
[2016-05-15] MEDS: SPIRONOLACTONE 100 MG TAB PO SCH (08:21)
[2016-05-15 08:38] LABS: MEAN CORPUSCULAR HGB CONC 32.7 g/dl (32-36)
[2016-05-15] MEDS: INSULIN ASPART 100 UNITS/ML 3 ML PEN SC SCH ×4 (08:40→22:46)
[2016-05-15 08:41] LABS: HEMATOCRIT 29.7 % (42-52); MEAN CELL VOLUME 74.8 fL (80-100); MEAN CORPUSCULAR HEMOGLOBIN 24.4 pg (25-34); RED BLOOD COUNT 3.97 M/uL (4.7-6.1); WHITE BLOOD COUNT 5.36 K/uL (4.8-10.8)
[2016-05-15 09:04] LABS: BUN/CREATININE RATIO 17.8 (10-20); CALCIUM 8.3 mg/dl (8.5-10.1); POTASSIUM 3.8 mmol/L (3.5-5.1)
[2016-05-15 09:07] LABS: PLATELET COUNT 48 K/uL (130-400)
[2016-05-15 09:08] LABS: PLT ESTIMATE DECREASED
--- NOTE | 2016-05-15 10:25 | Pharmacy Progress Note ---
Glycemic Control: Progress Nt Date of Service May 15, 2016. Scope Glycemic Pharmacist consulted by NATHALY Sanchez on 05/10 for glycemic control and to write orders per [facility] inpatient glycemic control protocol. Objective Accuchecks BSG (last 24hrs): Test 05/14/16 11:19 05/14/16 16:27 05/14/16 20:41 05/15/16 07:13 Bedside Glucose 318 mg/dl (70-99) 269 mg/dl (70-99) 145 mg/dl (70-99) 153 mg/dl (70-99) Test 05/15/16 07:46 Random Glucose 150 mg/dl (70-99) Laboratory Data (last 24hrs) Test 05/15/16 07:46 Anion Gap 6.0 mmol/L BUN/Creatinine Ratio 17.8 Blood Urea Nitrogen 18 mg/dl Creatinine 1.00 mg/dl Potassium Level 3.8 mmol/L Sodium Level 140 mmol/L White Blood Count 5.36 K/uL Recent Pertinent Medications Outpatient Anti-diabetic Regimen: (confirmed w/ the patient) * Lantus 32 units HS, Novolog 10 units with meals + sliding scale * A1c = 11.6 % 04/03/16 The patient is currently receiving: * Basal insulin: Lantus 35 units every 24 hours * Correctional Insulin: Novolog Correction per scale ACHS Goal Range: Low 110 mg/dL - High 140 mg/dL Correction Factor: 15 mg/dL/unit * Prandial insulin: Per carb ratio of 1 unit per 5 grams CHO consumed Risk Factors for Insulin Resistance: * Infection: on Rocephin and dapto * Diet: type 2 diabetes - consuming ave of 50 gm CHO with each meal Assessment & Plan ASSESSMENT: From 05/14/16 note: * 61 yr old T2DM male admitted 05/10/16 with severe hyperglycemia possibly secondary to non-compliance and bacterial peritonitis. * Pt was initiated on an insulin drip for less than 12 hours, then transitioned to SQ basal/bolus regimen * He is well known to our glycemic service from prior admissions, and we initiated a similar regimen, estimating needs to be ~70-90 units per day * Over the last 24 hours, patient received a total of 77 units * 18 units of basal insulin * 59 units of prandial/correctional insulin * BSGs ranging 76 - 222 mg/dL * Yesterday I had plans to increase his Lantus; but given half dose parameters in the order combined with patient's BSGs dramatically trending down <100 mg/dL at bedtime check, he received a half dose instead of a full of Lantus. * My plan today will be to remove the half dose, and schedule Lantus based on 50 /50 split of estimated needs (~70-80 units/day) * Loosen Novolog to avoid hypoglycemia as patient trended <100 mg/dL X 2 checks last evening * Reassess in the AM 05/15/16 * Mr. Broderick received 91 units of insulin yesterday w/ BSGs 145-318 mg/dL * BSGs higher yesterday d/t reduced dose of Lantus on 8 PM * I expect BSGs to be improved today with the 35 units of Lantus last night * No change to stressors so will plan to continue the current regimen PLAN FOR INPATIENT GLYCEMIC CONTROL: * Continue Lantus 35 units qPM * Continue Novolog ACHS * Goal 110-140 mg/dL * CF 15 mg/dL/unit * CR 1 unit per 5 gm CHO consumed RECOMMENDATIONS FOR DISCHARGE: * Agree w/ life educator's recommendations - resume outpt regimen upon discharge (Lantus reduced to 32 units recently d/t multiple lows) and continue to work w/ [facility] to improve BSGs * Patient reports he has an appt coming up - please confirm that this is scheduled Thank you.
[2016-05-15] MEDS ORDERED: NVLG SQ (10:33)
--- NOTE | 2016-05-15 11:01 | Progress Note ---
Internal Med Progress Note Date of Service: May 15, 2016. Provider Documentation: SUBJECTIVE: The patient was seen and examined Was admitted yesterday with possible SBP S/P Paracentesis 05/11/16 Abdominal Pain is much better No fever,chills Has diarrhea and stool is negative for C Diff colitis OBJECTIVE: Vital Signs-as noted below Exam: General-no distress at rest,sleeping well Eyes-normal ENT-normal Neck-supple Lungs-Clear to auscultate bilaterally Heart-Regular Abdomen-Soft,mildly tender to palpate ,minimal ascites clinically Extremities-Trace edema bilaterally Neuro-AAOPx3 Lab data as noted below. ASSESSMENT & PLAN: Possible BACTERIAL PERITONITIS h/o BETANCOURT CIRRHOSIS -Paracentesis 05/05/16: Ultrasound-guided diagnostic and therapeutic paracentesis with removal of 8.1 liters of ascites, -Ascitic fluid grew coag-negative staph on 05/10/16 -Patient reports feeling well s/p paracentesis on 05/08. Culture from paracentesis on 05/05 -Plan for diagnostic and therapeutic paracentesis in AM -Has been on start Rocephin -ID consulted for further management-appreciate input -GI consulted for further management -appreciate input -Continue Spirolactone, Lasix -Continue Rifaximin, Lactulose -Paracentesis on 05/11/16 3.4L yellow fluid WBC seen, culture and pathology pending-negative Peritoneal WBC 149,Polynuclear 4.4,PMN 6 Paracentesis on 05/05/16 GRAM STAIN: few WBC seen, no organisms seen OR AER/TIFFANY CULT:COAG NEG STAPH NOT LUGDUNENSIS, NO ANAEROBES ISOLATED. SENSITIVITIES TRIMET/SULFA S <=0.5/ 9.5 * OXACILLIN S <= 0.25 VANCOMYCIN S 2 ERYTHROMYCIN S <=0.5 TETRACYCLINE S <=4 CLINDAMYCIN S <=0.5 DAPTOMYCIN S <=0.5 Has been On Dapto and Ceftriaxone Awaiting ID recommendation Pt is clinically better Continue current treatment Finished 5 days of IV Ceftriaxone Discharge home this afternoon Advised to keep appointment with [facility] for possible TIPS procedure Diarrhea 4 times since this morning check stool for D Diff toxin -negative and C/S-pending Likely secondary to Use of Antibiotic CHRONIC ANEMIA -Hgb 9.2 ,stable -continue Iron IDDM with hyperglycemia -BSG >600 on arrival -pharmacy consulted for glycemic control. Will start insulin drip for BSG >600 -BSG AC HS -well controlled ANXIETY -continue Lexapro -repeat pending -avoid anticoagulation/antiplatelet as able Pancytopenia with thrombocytopenia Chronic issue Likely secondary to liver cirrhosis will monitor-improving but not the platelet Remains stable HYPOTHYROIDISM -continue Synthroid SEIZURES -continue Keppra H/O PULMONARY EMBOLISM -not a candidate for care home anticoagulation -s/p IVC filter CHRONIC PAIN SYNDROME -follows with pain management - [facility] -continue Dilaudid -avoid any IV Dilaudid DVT PROPHYLAXIS: SCDs RE: thrombocytopenia, pending procedure CODE STATUS: FULL CODE DISPO: Discahrge today Vital Signs: Date Time Temp Pulse Resp B/P Pulse Ox O2 Delivery O2 Flow Rate FiO2 05/15/16 07:54 99 Room Air 05/15/16 07:47 36.7 58 17 104/68 99 Room Air 05/15/16 00:39 36.9 68 18 97/57 96 Room Air 05/14/16 23:59 Room Air 05/14/16 16:00 Room Air 05/14/16 15:38 36.9 66 18 103/69 99 Room Air Lab Results: Results Past 24 Hours Test 05/14/16 11:19 05/14/16 16:27 05/14/16 20:41 05/15/16 07:13 Range/Units Bedside Glucose 318 269 145 153 70-99 mg/dl Test 05/15/16 07:46 Range/Units White Blood Count 5.36 4.8-10.8 K/uL Red Blood Count 3.97 4.7-6.1 M/uL Hemoglobin 9.7 14.0-18.0 g/dL Hematocrit 29.7 42-52 % Mean Corpuscular Volume 74.8 80-100 fL Mean Corpuscular Hemoglobin 24.4 25-34 pg Mean Corpuscular Hemoglobin Concent 32.7 32-36 g/dl RDW Standard Deviation 59.1 36.4-46.3 fL RDW Coefficient of Variation 21.6 11.5-14.5 % Platelet Count 48 130-400 K/uL Platelet Estimate DECREASED Sodium Level 140 136-145 mmol/L Potassium Level 3.8 3.5-5.1 mmol/L Chloride Level 104 98-107 mmol/L Carbon Dioxide Level 30 21-32 mmol/L Anion Gap 6.0 3-11 mmol/L Blood Urea Nitrogen 18 7-18 mg/dl Creatinine 1.00 0.60-1.40 mg/dl Est Creatinine Clear Calc Drug Dose 77.4 ml/min Estimated GFR () 93.1 Estimated GFR (Non- 80.3 BUN/Creatinine Ratio 17.8 10-20 Random Glucose 150 70-99 mg/dl Calcium Level 8.3 8.5-10.1 mg/dl Total Bilirubin 0.9 0.2-1 mg/dl Direct Bilirubin 0.3 0-0.2 mg/dl Aspartate Amino Transf (AST/SGOT) 24 15-37 U/L Alanine Aminotransferase (ALT/SGPT) 18 12-78 U/L Alkaline Phosphatase 88 45-117 U/L Total Protein 5.2 6.4-8.2 gm/dl Albumin 2.7 3.4-5.0 gm/dl Microbiology Results 05/15/16 C.difficile Toxin B Gene (PCR) - Final, Complete No C. difficile toxin B gene detected 05/15/16 Shiga Toxin Test, Received Pending 05/15/16 Stool Culture, Received Pending
[2016-05-15] MEDS ORDERED: HYDR2TAB48 PO (14:38)
--- NOTE | 2016-05-15 14:41 | Discharge Instructions ---
Discharge Instructions Date of Service May 15, 2016. Admission Reason for Admission: Bacteria Peritonitis Discharge Discharge Diagnosis / Problem: Spontaneous Bacterial Peritonitis Discharge Goals Goal(s): Prevent Disease Progression Activity Recommendations Activity Limitations: resume your previous activity . Instructions / Follow-Up Instructions / Follow-Up Dr Hurtado on 05/18/16 at 12:45PM.Please keep appointment with GI Current Hospital Diet Patient's current hospital diet: Diabetes Type 2 Diet, Low Sodium Diet (2gm Na) Discharge Diet Recommended Diet: Low Sodium Diet (2gm Na), Diabetes Type 2 Diet Fluid Restriction: 1500 ml (6 cups) Pending Studies Studies pending at discharge: no Laboratory Results Hemoglobin A1c Test 04/03/16 05:54 Range/Units Estimated Average Glucose 286 mg/dl Hemoglobin A1c 11.6 H 4.5-5.6 % Medical Emergencies . Who to Call and When: Medical Emergencies: If at any time you feel your situation is an emergency, please call 911 immediately. . Non-Emergent Contact Non-Emergency issues call your: Primary Care Provider . Past History Medical & Surgical History: (1) Anxiety (2) Depression (3) BETANCOURT (nonalcoholic steatohepatitis) (4) Esophageal varices (5) DM2 (diabetes mellitus, type 2) (6) Hypothyroidism (7) End stage liver disease (8) Seizure disorder (9) Portal hypertension (10) Ascites (11) Bacterial peritonitis (12) S/P lumbar fusion (13) S/P cervical spinal fusion (14) S/P IVC filter (15) S/P T&A (status post tonsillectomy and adenoidectomy) (16) H/O esophagogastroduodenoscopy (17) H/O knee surgery . "Provider Documentation" section prepared by Ksenia Hanks. VTE Core Measure Inpt VTE Proph given/why not?: SCD's, Contraindicated
[2016-05-15 15:38] VITALS: BP 104/66; PULSE 63; TEMP 36.4; O2SAT 97
[2016-05-15 17:40] VITALS: BP 101/67; PULSE 60
[2016-05-15] MEDS: CEFTRIAXONE SOD INJ 2,000 MG in DEXTROSE 5% 50ML 50 ML IV SCH (17:45)
[2016-05-15] MEDS: DAPTOmycin IV 450 MG in SODIUM CHLORIDE 0.9% 50ML 50 ML IV SCH (19:42)
--- NOTE | 2016-05-15 19:57 | Infectious Disease Progress Nt ---
Progress Note Date of Service May 15, 2016. Subjective Pt evaluation today including: conversation w/ patient, physical exam, chart review, lab review, review of studies, conversation w/ wine consultant, review of inpatient medication list Patient continues to improve. Abdominal pain less. No fever. Cultures of paracentesis fluid remain negative. No other new complaints. All Other Systems: Reviewed and Negative Medications add to the Current Inpatient Medications Medications (Trade) Dose Ordered Sig/Ryan Route Start Time Stop Time Status Last Admin Dose Admin Ondansetron HCl (Zofran Inj) 4 mg Q6H PRN IV 05/10/16 16:15 06/09/16 16:14 05/15/16 11:57 4 MG Glucose (Glucose 40% Gel) 15-30 GRAMS 15 GRAMS... UD PRN PO 05/10/16 16:15 06/09/16 16:14 Glucose (Glucose Chew Tab) 4-8 Tablets 4 Tabl... UD PRN PO 05/10/16 16:15 06/09/16 16:14 Dextrose (Dextrose 50% 50ML Syringe) 25-50ML OF 50% DW IV FOR... UD PRN IV 05/10/16 16:15 06/09/16 16:14 Glucagon (Glucagon Inj) 1 mg UD PRN SQ 05/10/16 16:15 06/09/16 16:14 Miscellaneous Information (Consult Glycemic Management Pharmacy) 1 ea UD PRN N/A 05/10/16 16:15 06/09/16 16:14 Diphenhydramine HCl (Benadryl Cap) 25 mg BID PRN PO 05/10/16 16:45 06/09/16 16:44 05/11/16 19:58 25 MG Escitalopram Oxalate (Lexapro Tab) 10 mg DAILY PO 05/11/16 09:00 06/10/16 08:59 05/15/16 08:18 10 MG Furosemide (Lasix Tab) 20 mg BID17 PO 05/10/16 17:00 06/09/16 16:59 05/15/16 17:39 20 MG Hydromorphone HCl (Dilaudid Tab) 4 mg Q8 PRN PO 05/10/16 16:45 05/24/16 16:44 Future Hold 05/10/16 18:41 4 MG Lactulose (Chronulac Syrup) 20 gm TID PO 05/10/16 21:00 06/09/16 20:59 05/15/16 08:20 20 GM Levetiracetam (Keppra Tab) 500 mg AMHS PO 05/10/16 21:00 06/09/16 20:59 05/15/16 08:20 500 MG Levothyroxine Sodium (Synthroid Tab) 75 mcg DAILYBB PO 05/11/16 06:30 06/10/16 06:29 05/15/16 06:30 75 MCG Magnesium Oxide (Mag-Ox Tab) 400 mg BID PO 05/10/16 21:00 06/09/16 20:59 05/15/16 08:18 400 MG Ondansetron HCl (Zofran Odt) 4 mg Q6H PRN SL 05/10/16 16:45 06/09/16 16:44 Pantoprazole Sodium (Protonix Tab) 40 mg BID PO 05/10/16 21:00 06/09/16 20:59 05/15/16 08:20 40 MG Pregabalin (Lyrica Cap) 75 mg TID PO 05/10/16 21:00 06/09/16 20:59 05/15/16 14:06 75 MG Propranolol HCl (Inderal Tab) 10 mg BID PO 05/10/16 21:00 06/09/16 20:59 05/15/16 08:19 10 MG Rifaximin (Xifaxan Tab) 550 mg AMHS PO 05/10/16 21:00 06/09/16 20:59 05/15/16 08:18 550 MG Spironolactone (Aldactone Tab) 100 mg DAILY PO 05/11/16 09:00 06/10/16 08:59 05/15/16 08:21 100 MG Triamcinolone Acetonide (Kenalog 0.1% Cream) 1 appln BID PRN EXT 05/10/16 16:45 06/09/16 16:44 Ferrous Sulfate (Feosol Tab) 325 mg BIDM PO 05/10/16 17:00 06/09/16 16:59 05/15/16 17:37 325 MG Pyridoxine HCl 25 mg 25 mg HS PO 05/10/16 21:00 06/09/16 20:59 05/14/16 20:32 25 MG Ceftriaxone Sodium 2000 mg/ Dextrose 70 ml @ 100 mls/hr Q24H IV 05/10/16 18:00 05/20/16 17:59 05/15/16 17:45 100 MLS/HR Daptomycin/Sodium Chloride (Cubicin IV/Nss 50ml) 59 ml @ 100 mls/hr DAILY@2000 IV 05/10/16 20:00 05/20/16 19:59 05/15/16 19:42 100 MLS/HR Oxycodone HCl (Roxicodone Immediate Rel Tab) 5 mg Q4H PRN PO 05/10/16 21:00 05/24/16 20:59 05/15/16 17:45 5 MG Insulin Aspart (novoLOG ASPART) SLIDING SCALE If C... ACHS SC 05/11/16 06:30 06/10/16 06:29 05/15/16 19:48 31 UNITS Hydromorphone HCl (Dilaudid Tab) 2 mg Q8H PRN PO 05/12/16 16:30 05/26/16 16:29 05/15/16 11:57 2 MG Ergocalciferol (Vitamin D Cap) 50,000 interunit Fr@2100 PO 05/12/16 21:00 06/16/16 21:01 05/12/16 21:23 50,000 INTERUNIT Cholecalciferol (Vitamin D Tab) 400 inter.unit DAILY PO 06/17/16 09:00 07/17/16 08:59 Insulin Glargine (Lantus Solostar Pen) 35 unit HS SC 05/14/16 21:00 06/13/16 20:59 05/14/16 21:03 35 UNIT Objective Vital Signs Date Time Temp Pulse Resp B/P Pulse Ox O2 Delivery O2 Flow Rate FiO2 05/15/16 17:40 60 101/67 05/15/16 16:45 Room Air 05/15/16 15:38 36.4 63 18 104/66 97 Room Air 05/15/16 08:00 Room Air 05/15/16 07:54 99 Room Air 05/15/16 07:47 36.7 58 17 104/68 99 Room Air 05/15/16 00:39 36.9 68 18 97/57 96 Room Air 05/14/16 23:59 Room Air Physical Exam General Appearance: WD/WN, no apparent distress Eyes: normal inspection, sclerae normal ENT: normal ENT inspection, hearing grossly normal, pharynx normal Neck: supple, no adenopathy, trachea midline Respiratory/Chest: lungs clear, normal breath sounds, no respiratory distress Cardiovascular: regular rate, rhythm, no gallop, no murmur Abdomen: normal bowel sounds, non tender, soft, no organomegaly, + distended Extremities: non-tender, no calf tenderness Neurologic/Psychiatric: alert, oriented x 3 Skin: normal color, warm/dry, no rash Lymphatic: no adenopathy Laboratory Results Last 24 Hours Test 05/14/16 20:41 05/15/16 07:13 05/15/16 07:46 05/15/16 11:23 Bedside Glucose 145 mg/dl 153 mg/dl 162 mg/dl White Blood Count 5.36 K/uL Red Blood Count 3.97 M/uL Hemoglobin 9.7 g/dL Hematocrit 29.7 % Mean Corpuscular Volume 74.8 fL Mean Corpuscular Hemoglobin 24.4 pg Mean Corpuscular Hemoglobin Concent 32.7 g/dl RDW Standard Deviation 59.1 fL RDW Coefficient of Variation 21.6 % Platelet Count 48 K/uL Platelet Estimate DECREASED Sodium Level 140 mmol/L Potassium Level 3.8 mmol/L Chloride Level 104 mmol/L Carbon Dioxide Level 30 mmol/L Anion Gap 6.0 mmol/L Blood Urea Nitrogen 18 mg/dl Creatinine 1.00 mg/dl Est Creatinine Clear Calc Drug Dose 77.4 ml/min Estimated GFR () 93.1 Estimated GFR (Non- 80.3 BUN/Creatinine Ratio 17.8 Random Glucose 150 mg/dl Calcium Level 8.3 mg/dl Total Bilirubin 0.9 mg/dl Direct Bilirubin 0.3 mg/dl Aspartate Amino Transf (AST/SGOT) 24 U/L Alanine Aminotransferase (ALT/SGPT) 18 U/L Alkaline Phosphatase 88 U/L Total Protein 5.2 gm/dl Albumin 2.7 gm/dl Test 05/15/16 16:27 05/15/16 19:39 Bedside Glucose 173 mg/dl 314 mg/dl Assessment and Plan 61-year-old male with 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 repeat paracentesis not indicative of infection., cultures remain negative. I think that antibiotics can be discontinued safely, with careful follow-up for recurrent fever or worsening abdominal pain. Discussed with all involved.
[2016-05-15] MEDS: PYRIDOXINE HCL 50 MG TAB PO SCH (20:49)
[2016-05-15] MEDS: INSULIN GLARGINE SOLOSTAR 100 UNITS/ML 3 ML PEN SC SCH (20:54)
[2016-05-16] VITALS: BP 93/50; PULSE 65; TEMP 36.8; O2SAT 97
[2016-05-16] MEDS: LEVOTHYROXINE 75 MCG TAB PO SCH (06:01)
[2016-05-16 07:25] VITALS: BP 108/65; PULSE 58; TEMP 36.9; O2SAT 99
[2016-05-16] MEDS: LACTULOSE SYRUP 20 GM/30 ML UDC PO SCH (08:15)
[2016-05-16 08:18] VITALS: PULSE 65
[2016-05-16] MEDS: FERROUS SULFATE 325 MG TAB PO SCH (08:21)
[2016-05-16] MEDS: LEVETIRACETAM 500 MG TAB PO SCH (08:22)
[2016-05-16] MEDS: PROPRANOLOL HCL 10 MG TAB PO SCH (08:22)
[2016-05-16] MEDS: FUROSEMIDE 20 MG TAB PO SCH (08:22)
[2016-05-16] MEDS: SPIRONOLACTONE 100 MG TAB PO SCH (08:22)
[2016-05-16] MEDS: RIFAXIMIN TAB 550 MG TAB PO SCH (08:23)
[2016-05-16] MEDS: MAGNESIUM OXIDE 400 MG TAB PO SCH (08:23)
[2016-05-16] MEDS: OXYCODONE HCL IR 5 MG TAB (IMMEDIATE RELEASE) PO PRN (08:23)
[2016-05-16] MEDS: PANTOprazole SOD 40 MG TAB PO SCH (08:23)
[2016-05-16] MEDS: ESCITALOPRAM OXALATE 10 MG TAB PO SCH (08:23)
[2016-05-16] MEDS: PREGABALIN 75 MG CAP PO SCH (08:23)
[2016-05-16] MEDS: INSULIN ASPART 100 UNITS/ML 3 ML PEN SC SCH ×2 (08:29→12:37)
[2016-05-16] MEDS: ONDANSETRON INJ 2 MG/ML 2 ML VIAL IV PRN (08:29)
--- NOTE | 2016-05-16 09:53 | Progress Note ---
Internal Med Progress Note Date of Service: May 16, 2016. Provider Documentation: SUBJECTIVE: The patient was seen and examined S/P Paracentesis 05/11/16 Abdominal Pain is much better-controlled No fever,chills Has diarrhea and stool is negative for C Diff colitis Still has diarrhea OBJECTIVE: Vital Signs-as noted below Exam: General-no distress at rest Eyes-normal ENT-normal Neck-supple Lungs-Clear to auscultate bilaterally Heart-Regular Abdomen-Soft,mildly tender to palpate ,minimal ascites clinically Extremities-Trace edema bilaterally Neuro-AAOPx3 Lab data as noted below. ASSESSMENT & PLAN: Possible BACTERIAL PERITONITIS h/o BETANCOURT CIRRHOSIS -Paracentesis 05/05/16: Ultrasound-guided diagnostic and therapeutic paracentesis with removal of 8.1 liters of ascites, -Ascitic fluid grew coag-negative staph on 05/10/16 -Patient reports feeling well s/p paracentesis on 05/08. Culture from paracentesis on 05/05 -Plan for diagnostic and therapeutic paracentesis in AM -Has been on start Rocephin -ID consulted for further management-appreciate input -GI consulted for further management -appreciate input -Continue Spirolactone, Lasix -Continue Rifaximin, Lactulose -Paracentesis on 05/11/16 3.4L yellow fluid WBC seen, culture and pathology pending-negative Peritoneal WBC 149,Polynuclear 4.4,PMN 6 Paracentesis on 05/05/16 GRAM STAIN: few WBC seen, no organisms seen OR AER/TIFFANY CULT:COAG NEG STAPH NOT LUGDUNENSIS, NO ANAEROBES ISOLATED. SENSITIVITIES TRIMET/SULFA S <=0.5/ 9.5 * OXACILLIN S <= 0.25 VANCOMYCIN S 2 ERYTHROMYCIN S <=0.5 TETRACYCLINE S <=4 CLINDAMYCIN S <=0.5 DAPTOMYCIN S <=0.5 Has been On Dapto and Ceftriaxone Awaiting ID recommendation Pt is clinically better Continue current treatment Finished 5 days of IV Ceftriaxone Discharge home this afternoon Advised to keep appointment with Santana for possible TIPS procedure Discussed with the ID -antibiotics are done Diarrhea 4 times since this morning check stool for D Diff toxin -negative and C/S-pending Likely secondary to Use of Antibiot Advised to decrease the use of Lactulose to control diarrhea CHRONIC ANEMIA -Hgb 9.2 ,stable -continue Iron IDDM with hyperglycemia -BSG >600 on arrival -pharmacy consulted for glycemic control. 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 anticoagulation -s/p IVC filter CHRONIC PAIN SYNDROME -follows with pain management - [facility] -continue Dilaudid -avoid any IV Dilaudid DVT PROPHYLAXIS: SCDs RE: thrombocytopenia, pending procedure CODE STATUS: FULL CODE DISPO: Discharge today Vital Signs: Date Time Temp Pulse Resp B/P Pulse Ox O2 Delivery O2 Flow Rate FiO2 05/16/16 11:18 36.9 65 18 99 Room Air 05/16/16 08:18 65 05/16/16 07:55 Room Air 05/16/16 07:25 36.9 58 18 108/65 99 05/16/16 00:00 36.8 65 20 93/50 97 Room Air 05/15/16 23:32 Room Air 05/15/16 17:40 60 101/67 05/15/16 16:45 Room Air 05/15/16 15:38 36.4 63 18 104/66 97 Room Air Lab Results: Results Past 24 Hours Test 05/15/16 16:27 05/15/16 19:39 05/15/16 22:42 05/16/16 07:15 Range/Units Bedside Glucose 173 314 75 152 70-99 mg/dl Test 05/16/16 11:03 Range/Units Bedside Glucose 168 70-99 mg/dl
[2016-05-16 11:18] VITALS: BP 108/65; PULSE 65; TEMP 36.9; O2SAT 99
[2016-05-16 11:35] VITALS: Ht 182.9 cm; Wt 71.3 kg
--- NOTE | 2016-05-16 11:56 | Discharge Summary ---
Discharge Summary Date of Service May 16, 2016. Discharge Summary Admission Date: May 10, 2016 at 15:45 Discharge Date: May 15, 2016 Discharge Disposition: Home with services Principal Diagnosis: Spontaneous Bacterial Peritonitis Secondary Diagnoses/Problems: Please see H&P and Hospital Progress note Procedures: Paracentesis Consultations: ID and GI Medication Reconciliation Continued Medications: Diphenhydramine HCl (Diphenhydramine HCl) 25 Mg Cap 25 MG PO BID PRN for itching/rash for 7 Days, #14 CAP Escitalopram (Lexapro) 10 Mg Tab 10 MG PO DAILY, TAB Ferrous Sulfate (Kp Ferrous Sulfate) 325 Mg Tab 1 TAB PO BID, TAB Furosemide (Lasix) 20 Mg Tab 20 MG PO BID, TAB Hydromorphone Hcl (Dilaudid) 2 Mg Tab 4 MG PO Q8 PRN for Pain for 3 Days, #10 TAB (This prescription has been renewed) Insulin Aspart (Novolog Penfill) 100 Unit/Ml Inj SQ TIDM via SSI Insulin Aspart (Novolog) 100 Units/Ml Inj 10 UNITS SQ TIDM Insulin Glargine (Lantus) 100 Unit/Ml Inj 32 UNITS SC HS, VIAL Lactulose (Chronulac) 10 Gm/15 Ml Syrp 20 GM PO TID Levetiractam (Levetiracetam) 500 Mg Tab 500 MG PO AMHS Levothyroxine Sodium (Synthroid) 75 Mcg Tab 75 MCG PO DAILY, TAB Magnesium Oxide (Mag-Ox) 400 Mg Tab 400 MG PO BID Ondasetron Odt (Zofran Odt) 4 Mg Tab 4 MG SL Q6H PRN for Nausea or Vomiting, TAB Pantoprazole (Protonix) 40 Mg Tab 40 MG PO BID, TAB Pregabalin (Lyrica) 75 Mg Cap 75 MG PO TID, CAP Propranolol (Inderal) 10 Mg Tab 10 MG PO BID, TAB Pyridoxine Hcl (Vitamin B-6) 25 Mg Tab 25 MG PO HS Rifaximin (Xifaxan) 550 Mg Tab 550 MG PO AMHS ONE AT BREAKFAST AND ONE AT SUPPER. Spironolactone (Aldactone) 100 Mg Tab 1 TAB PO DAILY for 30 Days, #30 TAB 11 Refills Triamcinolone Acet (Aristocort 0.1%) 90 Appln/30 Gm Cr 1 APPL EXT BID PRN for dermatitis Admission Information HPI (per Admitting provider): Patient seen and examined. 61 year old male well known to the hospitalist service with PMHx of Portillo Cirrhosis, HLD, hypothyroidism, thrombocytopenia, IDDM and other problems listed below is seen as a direct admission from for bacterial peritonitis. Patient reports feeling well. Recently patient has had paracentesis on 04/27 with 10L removal, 05/05 with 8L removed, and 05/08 with 7L removed. Today the 05/05 culture was resulted and grew coag negative staph. He was referred to the hospital for further workup and treatment. Patient reports he is feeling well. He came to the ED on 05/08 at which time he reports severe abdominal pain and ascites. He states since the paracentesis on 05/08 he has been feeling pretty good. He states he still has some crampy abdominal pain on occasion. He also reports some headaches this week, but overall feels much better. He denies fevers, chills, URI symptoms, chest pain, SOB, nausea, vomiting, diarrhea, dysuria, calf pain and edema. Unfortunately no cytology/ gram stain were completed on 05/08 ascitic fluid. Admission lab work is pending. Physical Exam (per Admitting): General Appearance: + pertinent finding (Pleasant WD/WN 61 year old male lying in bed in NAD ) Head: normocephalic, atraumatic Eyes: PERRL, EOMI, sclerae normal ENT: hearing grossly normal, pharynx normal (poor dentition ) Neck: supple, no JVD Respiratory/Chest: chest non-tender, lungs clear, normal breath sounds, no respiratory distress, no accessory muscle use Cardiovascular: regular rate, rhythm, no edema, no gallop, no JVD, no murmur , normal peripheral pulses Abdomen/GI: normal bowel sounds, non tender, soft, + distended, + hernia ( umbilical) Back: normal inspection, no muscle spasm Extremities/Musculoskelatal: no calf tenderness, normal capillary refill, no pedal edema Neurologic/Psych: alert, oriented x 3, + pertinent finding (no focal deficits ) Skin: normal color, warm/dry, no rash Lymphatic: no adenopathy Hospital Course Possible BACTERIAL PERITONITIS h/o PORTILLO CIRRHOSIS -Paracentesis 05/05/16: Ultrasound-guided diagnostic and therapeutic paracentesis with removal of 8.1 liters of ascites, -Ascitic fluid grew coag-negative staph on 05/10/16 -Patient reports feeling well s/p paracentesis on 05/08. Culture from paracentesis on 05/05 -Plan for diagnostic and therapeutic paracentesis in AM -Has been on start Rocephin -ID consulted for further management-appreciate input -GI consulted for further management -appreciate input -Continue Spirolactone, Lasix -Continue Rifaximin, Lactulose -Paracentesis on 05/11/16 3.4L yellow fluid WBC seen, culture and pathology pending-negative Peritoneal WBC 149,Polynuclear 4.4,PMN 6 Paracentesis on 05/05/16 GRAM STAIN: few WBC seen, no organisms seen OR AER/TIFFANY CULT:COAG NEG STAPH NOT LUGDUNENSIS, NO ANAEROBES ISOLATED. SENSITIVITIES TRIMET/SULFA S <=0.5/ 9.5 * OXACILLIN S <= 0.25 VANCOMYCIN S 2 ERYTHROMYCIN S <=0.5 TETRACYCLINE S <=4 CLINDAMYCIN S <=0.5 DAPTOMYCIN S <=0.5 Has been On Dapto and Ceftriaxone Awaiting ID recommendation Pt is clinically better Continue current treatment Finished 5 days of IV Ceftriaxone Discharge home this afternoon Advised to keep appointment with Santana for possible TIPS procedure Discussed with the ID -antibiotics are done Diarrhea 4 times since this morning check stool for D Diff toxin -negative and C/S-pending Likely secondary to Use of Antibiot Advised to decrease the use of Lactulose to control diarrhea CHRONIC ANEMIA -Hgb 9.2 ,stable -continue Iron IDDM with hyperglycemia -BSG >600 on arrival -pharmacy consulted for glycemic control. 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 Discharge Instructions Date of Service May 15, 2016. Admission Reason for Admission: Bacteria Peritonitis Discharge Discharge Diagnosis / Problem: Spontaneous Bacterial Peritonitis Discharge Goals Goal(s): Prevent Disease Progression Activity Recommendations Activity Limitations: resume your previous activity . Instructions / Follow-Up Instructions / Follow-Up Dr Hurtado on 05/18/16 at 12:45PM.Please keep appointment with GI Current Hospital Diet Patient's current hospital diet: Diabetes Type 2 Diet, Low Sodium Diet (2gm Na) Discharge Diet Recommended Diet: Low Sodium Diet (2gm Na), Diabetes Type 2 Diet Fluid Restriction: 1500 ml (6 cups) Pending Studies Studies pending at discharge: no Laboratory Results Hemoglobin A1c Test 04/03/16 05:54 Range/Units Estimated Average Glucose 286 mg/dl Hemoglobin A1c 11.6 H 4.5-5.6 % Medical Emergencies . Who to Call and When: Medical Emergencies: If at any time you feel your situation is an emergency, please call 911 immediately. . Non-Emergent Contact Non-Emergency issues call your: Primary Care Provider . Past History Medical & Surgical History: (1) Anxiety (2) Depression (3) PORTILLO (nonalcoholic steatohepatitis) (4) Esophageal varices (5) DM2 (diabetes mellitus, type 2) (6) Hypothyroidism (7) End stage liver disease (8) Seizure disorder (9) Portal hypertension (10) Ascites (11) Bacterial peritonitis (12) S/P lumbar fusion (13) S/P cervical spinal fusion (14) S/P IVC filter (15) S/P T&A (status post tonsillectomy and adenoidectomy) (16) H/O esophagogastroduodenoscopy (17) H/O knee surgery . "Provider Documentation" section prepared by Ksenia Hanks. VTE Core Measure Inpt VTE Proph given/why not?: SCD's, Contraindicated <Electronically signed by Ksenia Hanks M.D.> Signed: 05/15/16 1441 Additional Copies To Chacha Munoz D.O.
[2016-05-23] MEDS ORDERED: HYDR4TAB78 PO (09:03)
[2016-06-17] MEDS ORDERED: CHOLECALCIFEROL 400 INTER.UNIT TAB PO SCH (09:00)
[2016-07-01] MEDS ORDERED: MAGN400T5 PO (01:36)
[2016-07-01] MEDS ORDERED: DIPH50TA10 PO (02:00)
[2016-07-01] MEDS ORDERED: TRMCR130WC EXT (03:58)
[2016-07-01] MEDS ORDERED: LACT10SO17 PO (04:04)
[2016-07-01] MEDS ORDERED: PYRI25TA9 PO (04:52)
[2016-07-01] MEDS ORDERED: PROP10TA7 PO (04:52)
[2016-07-01] MEDS ORDERED: FURO-85 PO (05:55)
[2016-07-01] MEDS ORDERED: LEVO75TA PO (12:02)
[2016-07-01] MEDS ORDERED: ONDA4TAB10 SL (12:02)
[2016-07-01] MEDS ORDERED: RIFA550T2 PO (13:45)
[2016-07-01] MEDS ORDERED: FERR1TAB13 PO (14:58)
[2016-07-01] MEDS ORDERED: INSDGI SC (16:08)
[2016-07-01] MEDS ORDERED: LEVE500T PO (16:08)
[2016-08-22] MEDS ORDERED: INSDGI SC (09:03)
[2016-08-22] MEDS ORDERED: MRLP17 PO (09:03)
[2016-08-29] MEDS ORDERED: INSDGI SC (12:27)
[2016-08-29] MEDS ORDERED: POLY335019 PO (12:27)
[2016-09-18] MEDS ORDERED: DIPH25CA5 PO (10:22)
[2016-10-28] MEDS ORDERED: XFX550 PO (14:18)
[2016-11-18] MEDS ORDERED: CLIN300C2 PO (10:23)
[2016-11-23] MEDS ORDERED: MOML PO (07:52)
[2016-11-23] MEDS ORDERED: DOCU100C31 PO (07:52)
[2016-11-23] MEDS ORDERED: SENN-65 PO (07:52)
[2016-11-23] MEDS ORDERED: BISA10SU7 PR (07:52)
[2016-11-23] MEDS ORDERED: SODIENE PR (07:52)
[2016-11-23] MEDS ORDERED: [UNRECOGNIZED DRUG - CODE] PO (07:54)
[2016-11-23] MEDS ORDERED: GLGKIT SC (07:54)
== END 2016-05-16 13:43 | disposition home health service (06) | DRG 356 ==
LOC: C.MS2W 15:45
PROVIDERS: ADMIT Hospitalist; ATTEND Internal Medicine
PROC: 0W9G4ZX Drainage of Peritoneal Cavity, Percutaneous Endoscopic Approach, Diagnostic (ICD-10-PCS; principal; 2016-05-10)
DX: K65.2 Spontaneous bacterial peritonitis (principal); I81 Portal vein thrombosis; D61.818 Other pancytopenia; I31.3 Pericardial effusion (noninflammatory); K76.6 Portal hypertension; R18.8 Other ascites; I85.00 Esophageal varices without bleeding; E03.9 Hypothyroidism, unspecified; E11.65 Type 2 diabetes mellitus with hyperglycemia; F41.9 Anxiety disorder, unspecified; D69.6 Thrombocytopenia, unspecified; G40.909 Epilepsy, unspecified, not intractable, without status epilepticus; K75.81 Nonalcoholic steatohepatitis (NASH); Z86.718 Personal history of other venous thrombosis and embolism; G89.4 Chronic pain syndrome; Z86.711 Personal history of pulmonary embolism; K74.60 Unspecified cirrhosis of liver; Z79.4 Long term (current) use of insulin; E78.5 Hyperlipidemia, unspecified; F32.9 Major depressive disorder, single episode, unspecified; K72.90 Hepatic failure, unspecified without coma

== ENCOUNTER 2016-05-20 01:17 | Inpatient (IN) | payer OTHER ==
[~2016-05-20] VITALS: Ht 172.7 cm; Wt 76.0 kg
[~2016-05-20 01:17] MED LIST changes: +NVLG SQ
[2016-05-20] MEDS ORDERED: SODIUM CHLORIDE 0.9% 1000ML 1,000 ML IV STA (01:49)
[2016-05-20 01:56] LABS: MEAN CORPUSCULAR HGB CONC 32.6 g/dl (32-36)
--- NOTE | 2016-05-20 01:56 | EMERGENCY ROOM VISIT NOTE ---
History Report prepared by Alla: No Schilling Under the Supervision of: Dr. Nimisha Oliveros M.D. First contact with patient: 01:36 Chief Complaint: ABDOMINAL PAIN Stated Complaint: ABDOMINAL PAIN/SHORTNESS OF BREATH Nursing Triage Summary: abdominal pain/distention and SOB History of Present Illness The patient is a 61 year old male who presents to the Emergency Room with complaints of persistent abdominal pain that began prior to arrival. He currently rates his discomfort as a 3/10 in severity. The patient states that he was recently evaluated in the emergency department and was found to have a staph infection in the abdominal fluid that was drained. The patient notes a history of bacterial peritonitis. The patient additionally notes that he has been short of breath today. He additionally that he has had difficulty walking. The patient states that he had to crawl on his hands and knees this evening because he could not ambulate. The patient notes a recent weight gain. He states that he has an appointment scheduled with a mixing machine tender in July in [place] to consult about a TIPS procedure. Source of History: patient Onset: prior to arrival Position: abdomen Symptom Intensity: 3/10 Timing: other (persistent) Associated Symptoms: + SOB Note: Associated Symptoms: difficulty ambulating, recent weight gain. Review of Systems See HPI for pertinent positives & negatives. A total of 10 systems reviewed and were otherwise negative. 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 Surgical Problems: (1) H/O esophagogastroduodenoscopy (2) H/O knee surgery (3) S/P cervical spinal fusion (4) S/P IVC filter (5) S/P lumbar fusion (6) S/P T&A (status post tonsillectomy and adenoidectomy) Family History FH: CAD (coronary artery disease) FATHER FH: breast cancer MOTHER Social History Smoking Status: Never Smoker Alcohol Use: none Drug Use: none Marital Status: single Housing Status: lives alone Occupation Status: retired Current/Historical Medications Scheduled Escitalopram (Lexapro), 10 MG PO DAILY Ferrous Sulfate (Kp Ferrous Sulfate), 325 MG PO BID Furosemide (Lasix), 20 MG PO BID Hydromorphone Hcl (Dilaudid), 4 MG PO Q8 Insulin Aspart (Novolog Penfill), SQ TIDM Insulin Aspart (Novolog), 10 UNITS SQ TIDM Insulin Glargine (Lantus), 32 UNITS SC HS Lactulose (Chronulac), 20 GM PO TID Levetiractam (Levetiracetam), 500 MG PO AMHS Levothyroxine Sodium (Synthroid), 75 MCG PO DAILY Magnesium Oxide (Mag-Ox), 400 MG PO BID Pantoprazole (Protonix), 40 MG PO BID Pregabalin (Lyrica), 75 MG PO TID Propranolol (Inderal), 10 MG PO BID Pyridoxine Hcl (Vitamin B-6), 25 MG PO HS Rifaximin (Xifaxan), 550 MG PO AMHS Spironolactone (Aldactone), 1 TAB PO DAILY Scheduled PRN Diphenhydramine Hcl (Sleep) (Diphenhydramine Hcl), 25 MG PO BID PRN for Itching Ondasetron Odt (Zofran Odt), 4 MG SL Q6H PRN for Nausea or Vomiting Triamcinolone Acet (Aristocort 0.1%), 1 APPL EXT BID PRN for dermatitis Allergies Coded Allergies: Acetaminophen (Verified Allergy, Severe, ESLD (BETANCOURT). on Liver transplant list. Cannot have APAP., 05/20/16) NSAIDs (Verified Allergy, Severe, DUE TO LIVER DISEAS, 05/20/16) Penicillins (Verified Allergy, Severe, JOINT SWELLING AND FEVER, 05/20/16) Levofloxacin (Verified Allergy, Mild, RASH, 05/20/16) pt developed erythema at site of IV injection with itching Vancomycin (Verified Allergy, Mild, HIVES, 05/20/16) HIVES Tramadol (Verified Allergy, Unknown, NOT TO TAKE WITH KEPPRA DUE TO SEIZURE RISK, 05/20/16) Physical Exam Vital Signs Date Time Temp Pulse Resp B/P Pulse Ox O2 Delivery O2 Flow Rate FiO2 05/20/16 04:39 63 16 104/64 94 Room Air 4/15/17 03:16 36.7 05/20/16 02:54 70 18 94/48 97 Room Air 05/20/16 01:30 64 05/20/16 01:24 77 20 116/80 98 Room Air Physical Exam Vital signs reviewed. General: Chronically ill-appearing male, in no significant distress. HEENT: No scleral icterus, PERRLA, neck supple. Atraumatic. Cardiovascular: Regular rate and rhythm, no extra sounds. Pulmonary: Clear to auscultation bilaterally, normal work of breathing. Abdomen: Moderate abdominal distension. Soft, nontender, positive bowel sounds. Musculoskeletal: Atraumatic, minimal peripheral edema to the bilateral lower extremities. Neurologic: Patient awake alert and oriented x 3, full strength in all 4 extremities. Cranial nerves 2 through 12 grossly intact. Skin: Warm, dry, no rash Medical Decision & Procedures ER Provider Diagnostic Interpretation: 1 view chest x-ray: no focal lung consolidation, no failure. Laboratory Results Test 05/20/16 01:40 05/20/16 02:08 05/20/16 02:20 Immature Granulocyte % (Auto) 0.1 % White Blood Count 7.21 K/uL (4.8-10.8) Red Blood Count 4.10 M/uL (4.7-6.1) Hemoglobin 10.2 g/dL (14.0-18.0) Hematocrit 31.3 % (42-52) Mean Corpuscular Volume 76.3 fL (80-100) Mean Corpuscular Hemoglobin 24.9 pg (25-34) Mean Corpuscular Hemoglobin Concent 32.6 g/dl (32-36) Platelet Count 68 K/uL (130-400) Neutrophils (%) (Auto) 76.0 % Lymphocytes (%) (Auto) 9.6 % Monocytes (%) (Auto) 10.8 % Eosinophils (%) (Auto) 2.9 % Basophils (%) (Auto) 0.6 % Neutrophils # (Auto) 5.48 K/uL (1.4-6.5) Lymphocytes # (Auto) 0.69 K/uL (1.2-3.4) Monocytes # (Auto) 0.78 K/uL (0.11-0.59) Eosinophils # (Auto) 0.21 K/uL (0-0.5) Basophils # (Auto) 0.04 K/uL (0-0.2) Immature Granulocyte # (Auto) 0.01 K/uL (0.00-0.02) Large Platelets 1+ Anisocytosis PRESENT Activated Partial Thromboplast Time 29.4 SECONDS (21.0-31.0) Partial Thromboplastin Ratio 1.1 Total Bilirubin 1.4 mg/dl (0.2-1) Direct Bilirubin 0.5 mg/dl (0-0.2) Aspartate Amino Transf (AST/SGOT) 28 U/L (15-37) Alanine Aminotransferase (ALT/SGPT) 27 U/L (12-78) Alkaline Phosphatase 106 U/L (45-117) Total Creatine Kinase 78 U/L (39-308) Creatine Kinase MB 3.9 ng/ml (0.5-3.6) Creatine Kinase MB Ratio 5.0 (0-3.0) Total Protein 6.0 gm/dl (6.4-8.2) Albumin 3.1 gm/dl (3.4-5.0) Lipase 257 U/L (73-393) Bedside Troponin I 0.000 ng/ml (0-0.045) Urine Color YELLOW Urine Appearance CLEAR (CLEAR) Urine pH 5.0 (4.5-7.5) Urine Specific [place]anan 1.013 (1.000-1.030) Urine Protein NEG (NEG) Urine Glucose (UA) 3+ (NEG) Urine Ketones NEG (NEG) Urine Occult Blood NEG (NEG) Urine Nitrite NEG (NEG) Urine Bilirubin NEG (NEG) Urine Urobilinogen NEG (NEG) Urine Leukocyte Esterase NEG (NEG) Laboratory results per my review. Medications Administered Medications (Trade) Dose Ordered Sig/Ryan Route Start Time Stop Time Status Last Admin Dose Admin Sodium Chloride (Nss 1000ml) 1,000 ml @ 125 mls/hr Q8H STAT IV 05/20/16 01:49 05/20/16 06:02 DC 05/20/16 02:10 125 MLS/HR Hydromorphone HCl (Dilaudid Inj) 0.5 mg NOW STAT IV 05/20/16 04:01 05/20/16 04:02 DC 05/20/16 04:08 0.5 MG ECG Indication: SOB/dyspnea Rate (beats per minute): 62 Rhythm: sinus rhythm Findings: PAC, no acute ischemic change ED Course 0147: Past medical records reviewed. The patient was evaluated in room A11B. A complete history and physical examination was performed. 0149: Ordered Sodium Chloride 1000 ml @ 125 mls/hr IV. 0359: I reevaluated the patient and he is resting comfortably. I discussed the exam findings with him at this time. 0401: Ordered Dilaudid Inj 0.5 mg IV. 0404: I discussed the patients case with Omar Wills. He is going to come evaluate the patient. 0430: After further discussion with Omar Wills, he is going to evaluate the patient for further treatment. Medical Decision Differential diagnosis: Etiologies such as infections, reactive airway disease, pneumonia, pneumothorax , COPD, CHF, cardiac ischemia, pulmonary embolism, musculoskeletal, gastrointestinal, as well as others were entertained. This patient was evaluated and appeared to be in no significant distress. Patient's complaining of lower abdominal tenderness. He was recently diagnosed and treated for spontaneous bacterial peritonitis. This time the patient has no white count no fever. The patient was recently discharged from the hospital. He states he is not able to ambulate at home. He was gently hydrated with normal saline solution. He did request IV Dilaudid for his pain. Due to his prolonged hospitalizations, the [facility] hospitalist service was consulted. Patient was evaluated by Dr. Lai. He has evaluated the patient and agreed to hospitalization. Consults Time Called: 400 Consulting Physician: Omar Wills Returned Call: 0430 I discussed the patients case with Omar Wills. He is going to come evaluate the patient. Impression Primary Impression: Generalized weakness Additional Impressions: End stage liver disease Diffuse abdominal pain Scribe Attestation The scribe's documentation has been prepared under my direction and personally reviewed by me in its entirety. I confirm that the note above accurately reflects all work, treatment, procedures, and medical decision making performed by me. Departure Information Dispostion Being Evaluated By Hospitalist Referrals Chacha Munoz D.O. (PCP) Problem Qualifiers
[2016-05-20 02:03] LABS: HEMATOCRIT 31.3 % (42-52); MEAN CELL VOLUME 76.3 fL (80-100); MEAN CORPUSCULAR HEMOGLOBIN 24.9 pg (25-34); WHITE BLOOD COUNT 7.21 K/uL (4.8-10.8)
[2016-05-20] MEDS ORDERED: HYDR4TAB78 PO (02:05)
[2016-05-20 02:08] LABS: INR 1.2 (0.9-1.1); PARTIAL THROMBOPLASTIN RATIO 1.1; PROTHROMBIN TIME (PATIENT) 13.3 SECONDS (9.0-12.0)
[2016-05-20 02:10] LABS: BUN/CREATININE RATIO 13.1 (10-20); CALCIUM 8.2 mg/dl (8.5-10.1); CREATININE 1.3 mg/dl (0.60-1.40); POTASSIUM 4.2 mmol/L (3.5-5.1)
[2016-05-20 02:14] LABS: ANISOCYTOSIS PRESENT; BASO % 0.6 %; BASO ABS # 0.04 K/uL (0-0.2); COMPLETE YES; EOS % 2.9 %; IG% 0.1 %; LARGE PLATELETS 1+; LYMPH % 9.6 %; LYMPH ABS # 0.69 K/uL (1.2-3.4); MONO % 10.8 %; PLATELET COUNT 68 K/uL (130-400); PLT ESTIMATE DECREASED
[2016-05-20 02:28] LABS: URINE APPEARANCE CLEAR (CLEAR); URINE BILIRUBIN NEG (NEG); URINE COLOR YELLOW; URINE NITRITE NEG (NEG); URINE SPECIFIC GRAVITY 1.013 (1.000-1.030); UROBILINOGEN NEG (NEG); ZZUR CULT IF INDIC CLEAN CATCH NO
[2016-05-20 02:43] LABS: MANUAL MICROSCOPIC REQUIRED? NO; REVIEW REQ? NO
[2016-05-20] MEDS ORDERED: HYDROmorphone INJ 0.5 MG/0.5 ML SYR IV STA (04:01)
[2016-05-20] MEDS ORDERED: ONDANSETRON INJ 2 MG/ML 2 ML VIAL IV PRN (04:45)
[2016-05-20] MEDS ORDERED: TRIAMCINOLONE ACET 0.1% CR 15 GM TUBE EXT PRN (05:00)
--- NOTE | 2016-05-20 05:24 | History and Physical ---
History & Physical Date & Time of Service: May 20, 2016 at 04:44 Chief Complaint: Abdominal Pain/Shortness Of Breath Primary Care Physician: Chacha Munoz D.O. History of Present Illness Source: patient, clinic records, hospital records 61 year old male with PMH of Liver cirrhosis, BETANCOURT, thrombocytopenia, chronic pain syndrome, generalized weakness presents to the Emergency Room with complaints of shortness of breath, abdominal tenderness and generalized weakness. Pt has multiple admission for recurrent ascites and weakness. He was discharged 5 days ago and was treated for possible bacterial peritonitis after ascites culture from 05/05 paracentesis grew Coag neg staph not lugdunensis. he completed 5 days course of Rocephin. He had his last paracentesis on 05/11 where 3.4L ascites fluid removed. Pt said that he has been having watery diarrhea. He said that he had more than 17 episodes. He said that his PCP told him to take Imodium that seems to help a little with the diarrhea. he said that he feels the fluid start to accumulate in his abdomen. his abdominal pain is about 3/10 and located across the lower abdomen. Pt said that he feels very weak. He said that he cannot stand on his feet because his legs are too weak. He said that his roommate went to [place]. He has been crawling on his hands and knees in the house. He denies any fever, palpitation, dizziness and chest pain 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 Surgical Problems: (1) H/O esophagogastroduodenoscopy Status: Resolved (2) H/O knee surgery Status: Resolved (3) S/P cervical spinal fusion Status: Resolved (4) S/P IVC filter Status: Resolved (5) S/P lumbar fusion Status: Resolved (6) S/P T&A (status post tonsillectomy and adenoidectomy) Status: Resolved Family History FH: CAD (coronary artery disease) FATHER FH: breast cancer MOTHER Social History Smoking Status: Never Smoker Alcohol Use: none Drug Use: none Marital Status: single Housing status: lives with roommate Occupational Status: retired Immunizations History of Influenza Vaccine: Yes Influenza Vaccine Date: Oct 21, 2014 History of Tetanus Vaccine?: Yes Tetanus Immunization Date: Mar 15, 1972 History of Pneumococcal: Yes Pneumococcal Date: Feb 05, 2009 History of Hepatitis B Vaccine: Yes Hepatitis Immunization Date: June 18, 2013 Multi-Drug Resistant Organisms History of MDRO: No Allergies Coded Allergies: Acetaminophen (Verified Allergy, Severe, ESLD (BETANCOURT). on Liver transplant list. Cannot have APAP., 05/20/16) NSAIDs (Verified Allergy, Severe, DUE TO LIVER DISEAS, 05/20/16) Penicillins (Verified Allergy, Severe, JOINT SWELLING AND FEVER, 05/20/16) Levofloxacin (Verified Allergy, Mild, RASH, 05/20/16) pt developed erythema at site of IV injection with itching Vancomycin (Verified Allergy, Mild, HIVES, 05/20/16) HIVES Tramadol (Verified Allergy, Unknown, NOT TO TAKE WITH KEPPRA DUE TO SEIZURE RISK, 05/20/16) Home Medications Scheduled Escitalopram (Lexapro), 10 MG PO DAILY Ferrous Sulfate (Kp Ferrous Sulfate), 325 MG PO BID Furosemide (Lasix), 20 MG PO BID Hydromorphone Hcl (Dilaudid), 4 MG PO Q8 Insulin Aspart (Novolog Penfill), SQ TIDM Insulin Aspart (Novolog), 10 UNITS SQ TIDM Insulin Glargine (Lantus), 32 UNITS SC HS Lactulose (Chronulac), 20 GM PO TID Levetiractam (Levetiracetam), 500 MG PO AMHS Levothyroxine Sodium (Synthroid), 75 MCG PO DAILY Magnesium Oxide (Mag-Ox), 400 MG PO BID Pantoprazole (Protonix), 40 MG PO BID Pregabalin (Lyrica), 75 MG PO TID Propranolol (Inderal), 10 MG PO BID Pyridoxine Hcl (Vitamin B-6), 25 MG PO HS Rifaximin (Xifaxan), 550 MG PO AMHS Spironolactone (Aldactone), 1 TAB PO DAILY Scheduled PRN Diphenhydramine Hcl (Sleep) (Diphenhydramine Hcl), 25 MG PO BID PRN for Itching Ondasetron Odt (Zofran Odt), 4 MG SL Q6H PRN for Nausea or Vomiting Triamcinolone Acet (Aristocort 0.1%), 1 APPL EXT BID PRN for dermatitis Review of Systems Constitutional: + weakness, No chills, No fever Eyes: No eye pain, No redness, No worsening of vision ENT: No hearing loss, No nasal symptoms, No unusual epistaxis Respiratory: + shortness of breath, No cough, No sputum, No wheezing Cardiovascular: No chest pain, No orthopnea, No palpitations Abdomen: + diarrhea, + pain, No nausea, No vomiting Musculoskeletal: + joint pain, No calf pain Genitourinary - Male: No dysuria, No hematuria, No urinary frequency Neurologic: + weakness, No memory loss, No vertigo Psychiatric: No substance abuse Hematologic / Lymphatic: No night sweats Integumentary: No itch, No rash Physical Exam Vital Signs Date Time Temp Pulse Resp B/P Pulse Ox O2 Delivery O2 Flow Rate FiO2 05/20/16 04:39 63 16 104/64 94 Room Air 05/20/16 03:16 36.7 05/20/16 02:54 70 18 94/48 97 Room Air 05/20/16 01:30 64 05/20/16 01:24 77 20 116/80 98 Room Air General Appearance: WD/WN, no apparent distress Head: normocephalic, atraumatic Eyes: normal inspection, PERRL, EOMI ENT: normal ENT inspection, hearing grossly normal Neck: supple, no JVD Respiratory/Chest: chest non-tender, lungs clear, normal breath sounds, no respiratory distress, no accessory muscle use Cardiovascular: regular rate, rhythm, no JVD, no murmur Abdomen/GI: normal bowel sounds, + tenderness, + distended, + pertinent finding (ascites) Back: normal inspection, no CVA tenderness Extremities/Musculoskelatal: normal inspection, no calf tenderness Neurologic/Psych: no motor/sensory deficits, alert, normal mood/affect, oriented x 3 Skin: normal color, warm/dry Diagnostics Laboratory Results Results Past 24 Hours Test 05/20/16 01:40 05/20/16 02:08 05/20/16 02:20 Range/Units White Blood Count 7.21 4.8-10.8 K/uL Red Blood Count 4.10 4.7-6.1 M/uL Hemoglobin 10.2 14.0-18.0 g/dL Hematocrit 31.3 42-52 % Mean Corpuscular Volume 76.3 80-100 fL Mean Corpuscular Hemoglobin 24.9 25-34 pg Mean Corpuscular Hemoglobin Concent 32.6 32-36 g/dl Platelet Count 68 130-400 K/uL Neutrophils (%) (Auto) 76.0 % Lymphocytes (%) (Auto) 9.6 % Monocytes (%) (Auto) 10.8 % Eosinophils (%) (Auto) 2.9 % Basophils (%) (Auto) 0.6 % Neutrophils # (Auto) 5.48 1.4-6.5 K/uL Lymphocytes # (Auto) 0.69 1.2-3.4 K/uL Monocytes # (Auto) 0.78 0.11-0.59 K/uL Eosinophils # (Auto) 0.21 0-0.5 K/uL Basophils # (Auto) 0.04 0-0.2 K/uL RDW Standard Deviation 66.0 36.4-46.3 fL RDW Coefficient of Variation 23.7 11.5-14.5 % Immature Granulocyte % (Auto) 0.1 % Immature Granulocyte # (Auto) 0.01 0.00-0.02 K/uL Platelet Estimate DECREASED Large Platelets 1+ Anisocytosis PRESENT Prothrombin Time 13.3 9.0-12.0 SECONDS Prothromb Time International Ratio 1.2 0.9-1.1 Activated Partial Thromboplast Time 29.4 21.0-31.0 SECONDS Partial Thromboplastin Ratio 1.1 Sodium Level 143 136-145 mmol/L Potassium Level 4.2 3.5-5.1 mmol/L Chloride Level 109 98-107 mmol/L Carbon Dioxide Level 28 21-32 mmol/L Anion Gap 6.0 3-11 mmol/L Blood Urea Nitrogen 17 7-18 mg/dl Creatinine 1.30 0.60-1.40 mg/dl Est Creatinine Clear Calc Drug Dose 57.0 ml/min Estimated GFR () 67.8 Estimated GFR (Non- 58.5 BUN/Creatinine Ratio 13.1 10-20 Random Glucose 143 70-99 mg/dl Calcium Level 8.2 8.5-10.1 mg/dl Total Bilirubin 1.4 0.2-1 mg/dl Direct Bilirubin 0.5 0-0.2 mg/dl Aspartate Amino Transf (AST/SGOT) 28 15-37 U/L Alanine Aminotransferase (ALT/SGPT) 27 12-78 U/L Alkaline Phosphatase 106 45-117 U/L Total Creatine Kinase 78 39-308 U/L Creatine Kinase MB 3.9 0.5-3.6 ng/ml Creatine Kinase MB Ratio 5.0 0-3.0 Total Protein 6.0 6.4-8.2 gm/dl Albumin 3.1 3.4-5.0 gm/dl Lipase 257 73-393 U/L Bedside Troponin I 0.000 0-0.045 ng/ml Urine Color YELLOW Urine Appearance CLEAR CLEAR Urine pH 5.0 4.5-7.5 Urine Specific [place] 1.013 1.000-1.030 Urine Protein NEG NEG Urine Glucose (UA) 3+ NEG Urine Ketones NEG NEG Urine Occult Blood NEG NEG Urine Nitrite NEG NEG Urine Bilirubin NEG NEG Urine Urobilinogen NEG NEG Urine Leukocyte Esterase NEG NEG CXR normal, No Infiltrate No change from prior EKG Impression Assessment and Plan RECCURENT ASCITES 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 Last parencentesis done on 05/11 where 3.4 L fluid removed will get an U/S of the abdomen does not appear decompensated at this point. Fluid restriction to 1.5 L Continue lasix,aldactone, rifaximin will hold lactulose due to diarrhea Afebrile, no leukocytosis continue monitor Schedule appointment to [place] in July for TIPS procedure DIARRHEA Was recently treated with abx for possible bacteria peritonitis will check stool for Cdiff will hold lactulose for now until diarrhea improves will monitor electrolytes GENERALIZED WEAKNESS/AMBULATORY DYSFUNCTION PT/OT eval fall precaution History BETANCOURT Recurrent ascites and needs frequent paracentesis. Contique Lasix, Aldactone, Rifaximin, lactulose stable CHRONIC PAIN SYNDROME Continue dilaudid prn follow with pain management Thrombocytopenia Secondary to liver disease. Platelet 68 No active bleeding Continue monitor CBC Stable. History of Chronic Anemia Hgb 10.2 continue monitor h/h DM TYPE 2 Last hba1c 11.6 on 04/03/16 uncontrolled posible to non compliant Continue Lantus 30 units SS for now CKD STAGE 3 Creatine stable Avoid nephrotoxic agents History of Seizure Disorder: Continue Keppra. Stable History of PE S/P IVC filter placement Not a candidate for chronic anticoagulation due to low platelet and risk of bleeding Code Status: FULL CODE DVT Prophylaxis: SCDs.due to low platelet Level of Care Med/Surg Resuscitation Status FULL RESUSCITATION VTE Prophylaxis Given or contraindicated: SCD's
[2016-05-20] MEDS ORDERED: GLUCAGON FOR INJ 1 MG VIAL SQ PRN (05:45)
[2016-05-20] MEDS ORDERED: GLUCOSE 10 TABS/TUBE PO PRN (05:45)
[2016-05-20] MEDS ORDERED: DEXTROSE 50% 50 ML SYR IV PRN (05:45)
[2016-05-20] MEDS ORDERED: GLUCOSE 40% GEL 15 GM TUBE PO PRN (05:45)
[2016-05-20] MEDS ORDERED: HYDROmorphone HCL 2 MG TAB PO SCH (06:00)
[2016-05-20 06:10] VITALS: BP 102/53; PULSE 70; TEMP 36.5; O2SAT 94; Ht 172.7 cm; Wt 76.0 kg
[2016-05-20] MEDS ORDERED: IV FLUIDS COMPLETED PRN (06:15)
[2016-05-20] MEDS ORDERED: PHARMACY GLYCEMIC MGMT CONSULT PRN (06:15)
[2016-05-20] MEDS: HYDROmorphone HCL 2 MG TAB PO PRN ×2 (06:20→16:03)
[2016-05-20 07:08] VITALS: BP 101/49; PULSE 70; TEMP 36.7; O2SAT 92
--- NOTE | 2016-05-20 07:16 | DIAGNOSTIC IMAGING REPORT ---
ASCITES-ABDOMEN LIMITED ULTRASOUND CLINICAL HISTORY: ascites COMPARISON STUDY: Abdomen and pelvis CT 05/05/2016. FINDINGS: Moderate amount of ascites present. This is improved compared to the 05/05/2016 CT examination. IMPRESSION: Moderate ascites. Electronically signed by: Tj Weston M.D. 05/20/2016 7:14 AM Dictated Date/Time: 05/20/2016 7:12 AM
--- NOTE | 2016-05-20 07:58 | DIAGNOSTIC IMAGING REPORT ---
CHEST ONE VIEW PORTABLE HISTORY: Short of breath. COMPARISON: Chest and abdomen 05/05/2016. FINDINGS: There are low lung volumes. The heart is normal in size. No pleural effusions. No pneumothorax. Left basilar linear densities have slightly improved. This favors resolving atelectasis. The right lung is clear. No evidence for pulmonary edema. IMPRESSION: Improvement in the left basilar linear densities suggesting resolving atelectasis. Electronically signed by: Tj Weston M.D. 05/20/2016 7:56 AM Dictated Date/Time: 05/20/2016 7:54 AM
[2016-05-20] MEDS: INSULIN ASPART 100 UNITS/ML 3 ML PEN SC SCH ×4 (08:50→21:00)
[2016-05-20] MEDS: LEVOTHYROXINE 75 MCG TAB PO SCH (08:51)
[2016-05-20] MEDS: ESCITALOPRAM OXALATE 10 MG TAB PO SCH (08:51)
[2016-05-20] MEDS: MAGNESIUM OXIDE 400 MG TAB PO SCH ×2 (08:51→21:16)
[2016-05-20] MEDS: PANTOprazole SOD 40 MG TAB PO SCH ×2 (08:52→21:16)
[2016-05-20] MEDS: FUROSEMIDE 20 MG TAB PO SCH ×2 (08:52→21:17)
[2016-05-20] MEDS: RIFAXIMIN TAB 550 MG TAB PO SCH ×2 (08:53→21:16)
[2016-05-20] MEDS: LEVETIRACETAM 500 MG TAB PO SCH ×2 (08:54→21:16)
[2016-05-20] MEDS: SPIRONOLACTONE 100 MG TAB PO SCH (08:54)
[2016-05-20] MEDS: FERROUS SULFATE 325 MG TAB PO SCH ×2 (08:55→18:03)
[2016-05-20] MEDS: PROPRANOLOL HCL 10 MG TAB PO SCH ×2 (08:55→21:00)
[2016-05-20] MEDS: PREGABALIN 75 MG CAP PO SCH ×3 (08:58→21:22)
[2016-05-20] MEDS: ONDANSETRON 4MG OD TAB SL PRN (12:17)
--- NOTE | 2016-05-20 13:29 | Pharmacy Progress Note ---
Glycemic Control Intl Consult Date of Service May 20, 2016. Scope Glycemic Pharmacist consulted by Dr French on 05/20/16 for glycemic control and to write orders per [facility] inpatient glycemic control protocol Objective Weight (Kilograms): 76.000 Accuchecks BSG (last 24hrs): Test 05/20/16 01:40 05/20/16 08:42 05/20/16 11:47 Random Glucose 143 mg/dl (70-99) Bedside Glucose 84 mg/dl (70-99) 169 mg/dl (70-99) Laboratory Data (last 24hrs) Test 05/20/16 01:40 Anion Gap 6.0 mmol/L BUN/Creatinine Ratio 13.1 Blood Urea Nitrogen 17 mg/dl Creatinine 1.30 mg/dl Potassium Level 4.2 mmol/L Sodium Level 143 mmol/L White Blood Count 7.21 K/uL Red Blood Count 4.10 M/uL Hemoglobin 10.2 g/dL Hematocrit 31.3 % Mean Corpuscular Volume 76.3 fL Mean Corpuscular Hemoglobin 24.9 pg Mean Corpuscular Hemoglobin Concent 32.6 g/dl Platelet Count 68 K/uL Neutrophils (%) (Auto) 76.0 % Lymphocytes (%) (Auto) 9.6 % Monocytes (%) (Auto) 10.8 % Eosinophils (%) (Auto) 2.9 % Basophils (%) (Auto) 0.6 % Neutrophils # (Auto) 5.48 K/uL Lymphocytes # (Auto) 0.69 K/uL Monocytes # (Auto) 0.78 K/uL Eosinophils # (Auto) 0.21 K/uL Basophils # (Auto) 0.04 K/uL Recent Pertinent Medications Outpatient Anti-diabetic Regimen: * Lantus 32 units HS, Novolog 10 units with meals + sliding scale * A1c = 11.6 % 04/03/16 The patient is currently receiving: * Basal insulin: Lantus 30 units every 24 hours * Correctional Insulin: NovoLog Correction per scale ACHS Goal Range: Low 110 mg/dL - High 140 mg/dL Correction Factor: 30 mg/dL/unit * Prandial insulin: Per carb ratio of 1 unit per 10 grams CHO consumed Risk Factors for Insulin Resistance: * Elevated A1c Assessment & Plan ASSESSMENT: * 61 yr old T2DM male admitted 05/20/16 * He is well known to our glycemic service from prior admissions 05/20/16 * BSG today below goal range, but not hypoglycemic * Begin near home regimen Lantus dosing based on recent admission data * NovoLog AC and HS * CF and CR based on recent admit * A1c current PLAN FOR INPATIENT GLYCEMIC CONTROL: * Continue Lantus 30 units qPM * Continue NovoLog AC/HS * Goal 110-140 mg/dL * CF 15 mg/dL/unit * CR 1 unit per 5 gm CHO consumed RECOMMENDATIONS FOR DISCHARGE: * Likely can resume outpt regimen upon discharge (Lantus reduced to 32 units recently d/t multiple lows) and continue to work w/ [facility] clinic to improve BSGs * Please note that the plan above was derived based on current level of insulin resistance and hospital stress. These recommendations are appropriate for inpatient admission only. Plan of care upon discharge will need to be reassessed to avoid potential outpatient hypo/hyperglycemia. Thank you.
--- NOTE | 2016-05-20 14:19 | GASTROINTESTINAL CONSULTATION ---
DATE OF CONSULTATION: 05/20/2016 DATE OF CONSULTATION: 05/20/2016. REFERRING PHYSICIAN: Dr. French. I was asked by Dr. French to consult on this gentleman for liver disease and ascites. HISTORY OF PRESENT ILLNESS: The patient is a 61-year-old with known BETANCOURT cirrhosis and he is followed typically by Dr. Culver. He was just here last week and was seen by gastroenterology as well. He presented because of weakness in that he was alone and could not ambulate since his roommate was out of town. He has been requiring frequent paracentesis and is being considered for TIPS in [place]. He denies any fevers. I reviewed his medical records and past medical history. PAST MEDICAL HISTORY: Significant for what is already mentioned as well as diabetes, anxiety, depression, hyperlipidemia, seizure disorder. FAMILY HISTORY: He has no family history of gastrointestinal disease. SOCIAL HISTORY: Not significant for smoking or alcohol abuse. ALLERGIES: HE STATES HE IS ALLERGIC TO NONSTEROIDAL ANTI-INFLAMMATORY DRUGS, ACETAMINOPHEN, PENICILLIN, LEVOFLOXACIN, VANCOMYCIN AND TRAMADOL. OUTPATIENT MEDICATIONS: Include Lexapro, iron, Lasix, Dilaudid p.r.n., NovoLog insulin, Lantus, lactulose, Synthroid, Protonix, Lyrica, Inderal, Xifaxan, and Aldactone. REVIEW OF SYSTEMS: As above, otherwise he denies any fevers. He denies any acute shortness of breath or palpitations or chest pain. He denies any productive cough. He has had some diarrhea, but no rectal bleeding. He denies any dysuria or hematuria. He has had no vomiting. He has had no seizures. He denies any change in mood. He has had significant weakness. He denies any recent rashes. He has had no heat intolerance, but he has had some occasional cold intolerance. PHYSICAL EXAMINATION: GENERAL: Reveals a thin gentleman in no distress. VITAL SIGNS: His most recent temperature was 36.7, blood pressure 101/49, pulse is 70. SKIN: Anicteric. EYES: Show anicteric sclerae. He has got bitemporal wasting. NECK: Thin and supple. MOUTH: Clear of lesions. CHEST: Clear. HEART: Regular. ABDOMEN: Shows diffuse ascites, but it is not tense. He does have an umbilical hernia that is easily reducible. He has no rebound tenderness and good bowel sounds. EXTREMITIES: His upper extremities are warm with fair distal pulses. Lower extremities show some bipedal edema that is not significantly severe and he has fair distal pulses. NEUROLOGIC: He is alert and oriented x3. IMAGING: Shows ultrasound from yesterday with moderate ascites. Imp:61 maryse male with endstage liver disease from BETANCOURT with ascites and weakness. Doubt SBP. His abdomen certainly has ascites but it is not tense. No signs of encephalopathy. RECOMMENDATION: I would continue him on his outpatient medications. It is unclear whether he would benefit from a paracentesis at this point, but he may require 1-2 liters removed. I would not remove a lot more because of his low blood pressure. He should follow up with Dr. Culver as an outpatient. Certainly, salt restriction would be important too. I have nothing else to add for this case. PREMAD
[2016-05-20 15:35] VITALS: BP 107/66; PULSE 68; TEMP 36.5; O2SAT 93
--- NOTE | 2016-05-20 16:47 | Progress Note ---
Internal Med Progress Note Date of Service: May 20, 2016. Provider Documentation: SUBJECTIVE: Patient is seen and examined at bedside. States having generalized weakness and persistent abdominal pain. Also states having some SOB secondary to abdominal distention. Had 2 Loose BMs today. OBJECTIVE: Vital Signs-as noted below Physical Exam: General Appearance:Moderately built and nourished, no apparent distress Head: normocephalic, Atraumatic Eyes: normal inspection, EOMI, PERRLA Neck: supple, Trachea midline Respiratory/Chest: Normal breath sounds, CTA Cardiovascular: S1, S2, No murmur Abdomen/GI:Soft, distended, ascites, +Umbilical hernia, Bowel sounds present Extremities/Musculoskelatal:normal inspection, 1+ b/l edema Neurologic/Psych:AAOX3, grossly no focal neurological deficits Skin: normal color, warm Lab data as noted below. 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 Schedule appointment to [place] in July for TIPS Last paracentesis: on 05/11/16 ABD USD: Moderate ascites Continue fluid restriction and low sodium diet No signs of SBP Continue Lasix, Aldactone, rifaximin Hold lactulose for today secondary to severe diarrhea Check Ammonia levels in AM Appreciate GI input May need paracentesis DIARRHEA Recent Abx use for possible bacteria peritonitis Likely secondary lactulose R/O C.diff Hold lactulose for now Monitor electrolytes GENERALIZED WEAKNESS/AMBULATORY DYSFUNCTION PT/OT Fall precaution H/O BETANCOURT Recurrent ascites and needs frequent paracentesis. Continue diuretics Needs TIPS CHRONIC PAIN SYNDROME Continue Dilaudid prn Follow with pain management as outpatient THROMBOCYTOPENIA Secondary to ESLD Platelet: 68 No active bleeding monitor H/O Chronic Anemia Hgb 10.2 monitor DM II Last A1c: 11.6 on 04/03/16 uncontrolled: ? non compliance Continue Lantus, ISS CKD III Cr stable Avoid nephrotoxic agents H/O Seizure Disorder: Continue Keppra. Stable H/O PE S/P IVC filter placement Not a candidate for chronic anticoagulation due to low platelet and risk of bleeding Code Status: FULL CODE DVT PX: SCDs DISPOSITION: Continue to monitor Vital Signs: Date Time Temp Pulse Resp B/P Pulse Ox O2 Delivery O2 Flow Rate FiO2 05/20/16 15:35 36.5 68 18 107/66 93 Room Air 05/20/16 07:20 Room Air 05/20/16 07:08 36.7 70 16 101/49 92 Room Air 05/20/16 06:10 36.5 70 16 102/53 94 Room Air 05/20/16 04:39 63 16 104/64 94 Room Air 05/20/16 03:16 36.7 05/20/16 02:54 70 18 94/48 97 Room Air 05/20/16 01:30 64 05/20/16 01:24 77 20 116/80 98 Room Air Lab Results: Results Past 24 Hours Test 05/20/16 01:40 05/20/16 02:08 05/20/16 02:20 05/20/16 08:42 Range/Units White Blood Count 7.21 4.8-10.8 K/uL Red Blood Count 4.10 4.7-6.1 M/uL Hemoglobin 10.2 14.0-18.0 g/dL Hematocrit 31.3 42-52 % Mean Corpuscular Volume 76.3 80-100 fL Mean Corpuscular Hemoglobin 24.9 25-34 pg Mean Corpuscular Hemoglobin Concent 32.6 32-36 g/dl Platelet Count 68 130-400 K/uL Neutrophils (%) (Auto) 76.0 % Lymphocytes (%) (Auto) 9.6 % Monocytes (%) (Auto) 10.8 % Eosinophils (%) (Auto) 2.9 % Basophils (%) (Auto) 0.6 % Neutrophils # (Auto) 5.48 1.4-6.5 K/uL Lymphocytes # (Auto) 0.69 1.2-3.4 K/uL Monocytes # (Auto) 0.78 0.11-0.59 K/uL Eosinophils # (Auto) 0.21 0-0.5 K/uL Basophils # (Auto) 0.04 0-0.2 K/uL RDW Standard Deviation 66.0 36.4-46.3 fL RDW Coefficient of Variation 23.7 11.5-14.5 % Immature Granulocyte % (Auto) 0.1 % Immature Granulocyte # (Auto) 0.01 0.00-0.02 K/uL Platelet Estimate DECREASED Large Platelets 1+ Anisocytosis PRESENT Prothrombin Time 13.3 9.0-12.0 SECONDS Prothromb Time International Ratio 1.2 0.9-1.1 Activated Partial Thromboplast Time 29.4 21.0-31.0 SECONDS Partial Thromboplastin Ratio 1.1 Sodium Level 143 136-145 mmol/L Potassium Level 4.2 3.5-5.1 mmol/L Chloride Level 109 98-107 mmol/L Carbon Dioxide Level 28 21-32 mmol/L Anion Gap 6.0 3-11 mmol/L Blood Urea Nitrogen 17 7-18 mg/dl Creatinine 1.30 0.60-1.40 mg/dl Est Creatinine Clear Calc Drug Dose 57.0 ml/min Estimated GFR () 67.8 Estimated GFR (Non- 58.5 BUN/Creatinine Ratio 13.1 10-20 Random Glucose 143 70-99 mg/dl Calcium Level 8.2 8.5-10.1 mg/dl Total Bilirubin 1.4 0.2-1 mg/dl Direct Bilirubin 0.5 0-0.2 mg/dl Aspartate Amino Transf (AST/SGOT) 28 15-37 U/L Alanine Aminotransferase (ALT/SGPT) 27 12-78 U/L Alkaline Phosphatase 106 45-117 U/L Total Creatine Kinase 78 39-308 U/L Creatine Kinase MB 3.9 0.5-3.6 ng/ml Creatine Kinase MB Ratio 5.0 0-3.0 Total Protein 6.0 6.4-8.2 gm/dl Albumin 3.1 3.4-5.0 gm/dl Lipase 257 73-393 U/L Bedside Troponin I 0.000 0-0.045 ng/ml Urine Color YELLOW Urine Appearance CLEAR CLEAR Urine pH 5.0 4.5-7.5 Urine Specific [place] 1.013 1.000-1.030 Urine Protein NEG NEG Urine Glucose (UA) 3+ NEG Urine Ketones NEG NEG Urine Occult Blood NEG NEG Urine Nitrite NEG NEG Urine Bilirubin NEG NEG Urine Urobilinogen NEG NEG Urine Leukocyte Esterase NEG NEG Bedside Glucose 84 70-99 mg/dl Test 05/20/16 11:47 05/20/16 17:13 Range/Units Bedside Glucose 169 224 70-99 mg/dl
[2016-05-20] MEDS ORDERED: INSULIN GLARGINE SOLOSTAR 100 UNITS/ML 3 ML PEN SC SCH (21:00)
[2016-05-20 21:04] VITALS: BP 93/55; PULSE 58
[2016-05-20] MEDS: PYRIDOXINE HCL 50 MG TAB PO SCH (21:20)
[2016-05-20 23:00] VITALS: BP 112/65; PULSE 65; TEMP 36.8; O2SAT 96
[2016-05-21] MEDS: HYDROmorphone HCL 2 MG TAB PO PRN ×3 (00:10→17:44)
[2016-05-21 05:48] LABS: MEAN CORPUSCULAR HGB CONC 32.9 g/dl (32-36)
[2016-05-21] MEDS: LEVOTHYROXINE 75 MCG TAB PO SCH (05:49)
[2016-05-21 06:04] LABS: HEMATOCRIT 30.7 % (42-52); MEAN CELL VOLUME 78.1 fL (80-100); MEAN CORPUSCULAR HEMOGLOBIN 25.7 pg (25-34); RED BLOOD COUNT 3.93 M/uL (4.7-6.1); WHITE BLOOD COUNT 5.32 K/uL (4.8-10.8)
[2016-05-21 06:14] LABS: BUN/CREATININE RATIO 16.1 (10-20); CALCIUM 7.9 mg/dl (8.5-10.1); CREATININE 1.1 mg/dl (0.60-1.40); POTASSIUM 4.5 mmol/L (3.5-5.1)
[2016-05-21 06:15] LABS: PLATELET COUNT 50 K/uL (130-400); PLT ESTIMATE DECREASED
[2016-05-21 07:22] VITALS: BP 98/56; PULSE 64; TEMP 36.9; O2SAT 97
[2016-05-21] MEDS: FERROUS SULFATE 325 MG TAB PO SCH ×2 (08:57→17:43)
[2016-05-21] MEDS: PREGABALIN 75 MG CAP PO SCH ×3 (08:57→20:47)
[2016-05-21] MEDS: RIFAXIMIN TAB 550 MG TAB PO SCH ×2 (08:58→20:47)
[2016-05-21] MEDS: PROPRANOLOL HCL 10 MG TAB PO SCH ×2 (08:58→20:47)
[2016-05-21] MEDS: SPIRONOLACTONE 100 MG TAB PO SCH (08:58)
[2016-05-21] MEDS: ESCITALOPRAM OXALATE 10 MG TAB PO SCH (08:58)
[2016-05-21] MEDS: MAGNESIUM OXIDE 400 MG TAB PO SCH ×2 (08:58→20:47)
[2016-05-21] MEDS: LEVETIRACETAM 500 MG TAB PO SCH ×2 (08:58→20:47)
[2016-05-21] MEDS: PANTOprazole SOD 40 MG TAB PO SCH ×2 (08:59→20:47)
[2016-05-21] MEDS: FUROSEMIDE 20 MG TAB PO SCH ×2 (08:59→20:47)
[2016-05-21] MEDS: INSULIN ASPART 100 UNITS/ML 3 ML PEN SC SCH ×4 (09:04→20:55)
[2016-05-21] MEDS: ONDANSETRON 4MG OD TAB SL PRN (12:42)
--- NOTE | 2016-05-21 14:12 | Progress Note ---
Internal Med Progress Note Date of Service: May 21, 2016. Provider Documentation: SUBJECTIVE: Patient is seen and examined at bedside. States having some nausea and persistent abdominal pain. Denies vomiting. Diarrhea resolved. Offers no other complaints. OBJECTIVE: Vital Signs-as noted below Physical Exam: General Appearance:Moderately built and nourished, no apparent distress Head: normocephalic, Atraumatic Eyes: normal inspection, EOMI, PERRLA Neck: supple, Trachea midline Respiratory/Chest: Normal breath sounds, CTA Cardiovascular: S1, S2, No murmur Abdomen/GI:Soft, distended, ascites, +Umbilical hernia, Bowel sounds present Extremities/Musculoskelatal:normal inspection, 1+ b/l edema Neurologic/Psych:AAOX3, grossly no focal neurological deficits Skin: normal color, warm Lab data as noted below. 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 Continue diuretics Needs TIPS CHRONIC PAIN SYNDROME Continue Dilaudid prn Follow with pain management as outpatient THROMBOCYTOPENIA Secondary to ESLD Platelet: 68 No active bleeding monitor H/O Chronic Anemia Hgb 10.2 monitor DM II Last A1c: 11.6 on 04/03/16 uncontrolled: ? non compliance Continue Lantus, ISS CKD III Cr stable Avoid nephrotoxic agents H/O Seizure Disorder: Continue Keppra. Stable H/O PE S/P IVC filter placement Not a candidate for chronic anticoagulation due to low platelet and risk of bleeding Code Status: FULL CODE DVT PX: SCDs DISPOSITION: Continue to monitor Vital Signs: Date Time Temp Pulse Resp B/P Pulse Ox O2 Delivery O2 Flow Rate FiO2 05/21/16 07:44 Room Air 05/21/16 07:22 36.9 64 16 98/56 97 Room Air 05/21/16 00:10 Room Air 05/20/16 23:00 36.8 65 16 112/65 96 Room Air 05/20/16 21:04 58 93/55 05/20/16 16:00 Room Air 05/20/16 15:35 36.5 68 18 107/66 93 Room Air Lab Results: Results Past 24 Hours Test 05/20/16 17:13 05/20/16 20:47 05/21/16 05:32 05/21/16 08:11 Range/Units Bedside Glucose 224 95 95 70-99 mg/dl White Blood Count 5.32 4.8-10.8 K/uL Red Blood Count 3.93 4.7-6.1 M/uL Hemoglobin 10.1 14.0-18.0 g/dL Hematocrit 30.7 42-52 % Mean Corpuscular Volume 78.1 80-100 fL Mean Corpuscular Hemoglobin 25.7 25-34 pg Mean Corpuscular Hemoglobin Concent 32.9 32-36 g/dl RDW Standard Deviation 66.8 36.4-46.3 fL RDW Coefficient of Variation 23.2 11.5-14.5 % Platelet Count 50 130-400 K/uL Platelet Estimate DECREASED Sodium Level 140 136-145 mmol/L Potassium Level 4.5 3.5-5.1 mmol/L Chloride Level 106 98-107 mmol/L Carbon Dioxide Level 30 21-32 mmol/L Anion Gap 4.0 3-11 mmol/L Blood Urea Nitrogen 18 7-18 mg/dl Creatinine 1.10 0.60-1.40 mg/dl Est Creatinine Clear Calc Drug Dose 67.3 ml/min Estimated GFR () 82.9 Estimated GFR (Non- 71.6 BUN/Creatinine Ratio 16.1 10-20 Random Glucose 100 70-99 mg/dl Calcium Level 7.9 8.5-10.1 mg/dl Ammonia 36.0 11-32 umol/L Test 05/21/16 12:20 Range/Units Bedside Glucose 105 70-99 mg/dl
--- NOTE | 2016-05-21 14:25 | Pharmacy Progress Note ---
Glycemic Control: Progress Nt Date of Service May 21, 2016. Scope Glycemic Pharmacist consulted by Dr French on 05/20/16 for glycemic control and to write orders per [facility] inpatient glycemic control protocol. Objective Accuchecks BSG (last 24hrs): Test 05/20/16 17:13 05/20/16 20:47 05/21/16 05:32 05/21/16 08:11 Bedside Glucose 224 mg/dl (70-99) 95 mg/dl (70-99) 95 mg/dl (70-99) Random Glucose 100 mg/dl (70-99) Test 05/21/16 12:20 Bedside Glucose 105 mg/dl (70-99) Laboratory Data (last 24hrs) Test 05/21/16 05:32 Anion Gap 4.0 mmol/L BUN/Creatinine Ratio 16.1 Blood Urea Nitrogen 18 mg/dl Creatinine 1.10 mg/dl Potassium Level 4.5 mmol/L Sodium Level 140 mmol/L White Blood Count 5.32 K/uL Recent Pertinent Medications Outpatient Anti-diabetic Regimen: * Lantus 32 units HS * NovoLog 10 units with meals + sliding scale * A1c = 11.6 % 04/03/16 The patient is currently receiving: * Basal insulin: Lantus 30 units every 24 hours * Correctional Insulin: NovoLog Correction per scale ACHS Goal Range: Low 110 mg/dL - High 140 mg/dL Correction Factor: 15 mg/dL/unit * Prandial insulin: Per carb ratio of 1 unit per 5 grams CHO consumed Risk Factors for Insulin Resistance: * Elevated A1c Assessment & Plan ASSESSMENT: * 61 yr old T2DM male admitted 05/20/16 * He is well known to our glycemic service from prior admissions 05/20/16 * BSG today below goal range, but not hypoglycemic * Begin near home regimen Lantus dosing based on recent admission data * NovoLog AC and HS * CF and CR based on recent admit * A1c current 05/21/16 * BSGs well controlled over the past 24 hour with 66 units of insulin administered * Fasting today below 100mg/dL * decrease basal insulin by 20% * NovoLog parameters appear to be appropriate at this time * continue to monitor PLAN FOR INPATIENT GLYCEMIC CONTROL: * Basal insulin * Lantus 24 units q PM * Bolus insulin: * NovoLog AC/HS * Goal 110-140 mg/dL * CF 15 mg/dL/unit * CR 1 unit per 5 gm CHO consumed RECOMMENDATIONS FOR DISCHARGE: * Likely can resume outpt regimen upon discharge (Lantus reduced to 32 units recently d/t multiple lows) and continue to work w/ MTM clinic to improve BSGs * Please note that the plan above was derived based on current level of insulin resistance and hospital stress. These recommendations are appropriate for inpatient admission only. Plan of care upon discharge will need to be reassessed to avoid potential outpatient hypo/hyperglycemia. Thank you.
[2016-05-21 15:08] VITALS: BP 123/56; PULSE 69; TEMP 36.7; O2SAT 93
[2016-05-21 16:20] VITALS: O2SAT 93
[2016-05-21 20:35] VITALS: BP 118/72; PULSE 71
[2016-05-21] MEDS: LACTULOSE SYRUP 20 GM/30 ML UDC PO SCH (20:47)
[2016-05-21] MEDS: PYRIDOXINE HCL 50 MG TAB PO SCH (20:48)
[2016-05-21] MEDS: INSULIN GLARGINE SOLOSTAR 100 UNITS/ML 3 ML PEN SC SCH (20:54)
[2016-05-21 23:27] VITALS: BP 115/65; PULSE 67; TEMP 37; O2SAT 94
[2016-05-21 23:35] VITALS: O2SAT 94
[2016-05-22] VITALS (7 sets, daily range): BP systolic 93–115; BP diastolic 50–67; PULSE 64–71; TEMP 36.7–37.1; O2SAT 95–97
[2016-05-22] MEDS: HYDROmorphone HCL 2 MG TAB PO PRN ×3 (06:10→22:18)
[2016-05-22] MEDS: LEVOTHYROXINE 75 MCG TAB PO SCH (06:11)
[2016-05-22 06:14] LABS: INR 1.3 (0.9-1.1); PROTHROMBIN TIME (PATIENT) 13.7 SECONDS (9.0-12.0)
[2016-05-22 06:22] LABS: BUN/CREATININE RATIO 13.4 (10-20); CALCIUM 8.1 mg/dl (8.5-10.1); CREATININE 1.2 mg/dl (0.60-1.40); POTASSIUM 4.2 mmol/L (3.5-5.1)
[2016-05-22] MEDS: PANTOprazole SOD 40 MG TAB PO SCH ×2 (08:46→21:32)
[2016-05-22] MEDS: RIFAXIMIN TAB 550 MG TAB PO SCH ×2 (08:47→21:31)
[2016-05-22] MEDS: PROPRANOLOL HCL 10 MG TAB PO SCH ×2 (08:47→21:31)
[2016-05-22] MEDS: ESCITALOPRAM OXALATE 10 MG TAB PO SCH (08:48)
[2016-05-22] MEDS: FERROUS SULFATE 325 MG TAB PO SCH ×2 (08:48→18:30)
[2016-05-22] MEDS: SPIRONOLACTONE 100 MG TAB PO SCH (08:48)
[2016-05-22] MEDS: LEVETIRACETAM 500 MG TAB PO SCH ×2 (08:49→21:31)
[2016-05-22] MEDS: FUROSEMIDE 20 MG TAB PO SCH ×2 (08:49→21:31)
[2016-05-22] MEDS: MAGNESIUM OXIDE 400 MG TAB PO SCH ×2 (08:49→21:31)
[2016-05-22] MEDS: INSULIN ASPART 100 UNITS/ML 3 ML PEN SC SCH ×4 (08:55→21:38)
[2016-05-22] MEDS: LACTULOSE SYRUP 20 GM/30 ML UDC PO SCH ×3 (08:55→21:00)
[2016-05-22] MEDS: PREGABALIN 75 MG CAP PO SCH ×3 (08:58→21:42)
--- NOTE | 2016-05-22 10:51 | Pharmacy Progress Note ---
Glycemic Control: Progress Nt Date of Service May 22, 2016. Scope Glycemic Pharmacist consulted by Dr French on 05/20/16 for glycemic control and to write orders per [facility] inpatient glycemic control protocol. Objective Accuchecks BSG (last 24hrs): Test 05/21/16 12:20 05/21/16 16:57 05/21/16 20:26 05/22/16 05:44 Bedside Glucose 105 mg/dl (70-99) 165 mg/dl (70-99) 89 mg/dl (70-99) Random Glucose 123 mg/dl (70-99) Test 05/22/16 08:05 Bedside Glucose 146 mg/dl (70-99) Laboratory Data (last 24hrs) Test 05/22/16 05:44 Anion Gap 9.0 mmol/L BUN/Creatinine Ratio 13.4 Blood Urea Nitrogen 16 mg/dl Creatinine 1.20 mg/dl Potassium Level 4.2 mmol/L Sodium Level 139 mmol/L Recent Pertinent Medications Outpatient Anti-diabetic Regimen: * Lantus 32 units HS * NovoLog 10 units with meals + sliding scale * A1c = 11.6 % 04/03/16 The patient is currently receiving: * Basal insulin: Lantus 24 units every 24 hours (decreased 20% on ) * Correctional Insulin: NovoLog Correction per scale ACHS Goal Range: Low 110 mg/dL - High 140 mg/dL Correction Factor: 15 mg/dL/unit * Prandial insulin: Per carb ratio of 1 unit per 5 grams CHO consumed Risk Factors for Insulin Resistance: * Elevated A1c * Diet: T2DM, low sodium Assessment & Plan ASSESSMENT: * 61 yr old T2DM male admitted 05/20/16. He is well known to our glycemic service from prior admissions * Patient to have paracentesis to r/o SBP. * Basal insulin was decreased last evening by 20 % due to fasting BSGs less than 100 mg/dL x 2. Patient required significantly less insulin on 05/21 compared to 05/20 (51 vs. 66 units). Fasting BSG responding well to dose decrease and closer to goal range. * Patient has adequate mealtime control with correction and prandial novolog. PLAN FOR INPATIENT GLYCEMIC CONTROL: * Continue Lantus 24 units SQ PM * Continuing correction factor of 15 mg/dl/unit * Continuing carb ratio to 1 unit per 5 grams CHO consumed * Continuing goal range to Low 110 mg/dL - High 140 mg/dL RECOMMENDATIONS FOR DISCHARGE: * Likely can resume outpt regimen upon discharge (Lantus reduced to 32 units recently d/t multiple lows) and continue to work w/ MTM clinic to improve BSGs * Please note that the plan above was derived based on current level of insulin resistance and hospital stress. These recommendations are appropriate for inpatient admission only. Plan of care upon discharge will need to be reassessed to avoid potential outpatient hypo/hyperglycemia. Thank you.
[2016-05-22] MEDS: ALBUMIN HUMAN 25% 12.5 GM/50 ML VIAL IV SCH ×4 (12:18→15:37)
--- NOTE | 2016-05-22 12:40 | DIAGNOSTIC IMAGING REPORT ---
ULTRASOUND GUIDED PARACENTESIS CLINICAL HISTORY: abd pain, ascites ascites COMPARISON STUDY: 05/20/2016 PROCEDURE: The risks, benefits, and alternatives to the procedure were discussed with the patient including the risk of bleeding, infection and injury to adjacent structures. The patient agreed to the procedure and informed written consent was obtained. The procedure was performed by Dr. Tariq following a time out. Following real-time ultrasound localization, the skin was prepped and draped. Following local anesthesia with Xylocaine, the sheath paracentesis needle was inserted and approximately 4 liters of straw-colored fluid was removed by vacuum suction. The patient tolerated the procedure well and no immediate complications were evident. IMPRESSION: Ultrasound-guided paracentesis with removal of 4 liters of ascites. 1 L of fluid was transmitted to the laboratory for evaluation purposes. There are no complications. Electronically signed by: Marcin Tariq M.D. 05/22/2016 12:38 PM Dictated Date/Time: 05/22/2016 12:37 PM
--- NOTE | 2016-05-22 12:42 | Gastroenterology Progress Note ---
Progress Note Date of Service: May 22, 2016 Subjective Pt evaluation today including: conversation w/ patient, physical exam, chart review, lab review, review of inpatient medication list Pt c/o diffuse abd pain and reported had 101 fever prior to admission. Denies any nausea, vomiting. Appetite low, states remaining compliant w his low salt diet but "cheats once in a while" on his diabetic diet. Review of Systems Constitutional: + fever, + see HPI, No chills Respiratory: No cough, No shortness of breath Cardiac: No chest pain, No edema Abdomen: + pain, No nausea, No vomiting Skin: No itch, No jaundice, No rash Medications Current Inpatient Medications Medications (Trade) Dose Ordered Sig/Ryan Route Start Time Stop Time Status Last Admin Dose Admin Escitalopram Oxalate (Lexapro Tab) 10 mg DAILY PO 05/20/16 09:00 06/19/16 08:59 05/22/16 08:48 10 MG Furosemide (Lasix Tab) 20 mg BID PO 05/20/16 09:00 06/19/16 08:59 05/22/16 08:49 20 MG Levetiracetam (Keppra Tab) 500 mg AMHS PO 05/20/16 09:00 06/19/16 08:59 05/22/16 08:49 500 MG Levothyroxine Sodium (Synthroid Tab) 75 mcg DAILYBB PO 05/20/16 06:00 06/19/16 05:59 05/22/16 06:11 75 MCG Magnesium Oxide (Mag-Ox Tab) 400 mg BID PO 05/20/16 09:00 06/19/16 08:59 05/22/16 08:49 400 MG Ondansetron HCl (Zofran Odt) 4 mg Q6H PRN SL 05/20/16 05:00 06/19/16 04:59 05/21/16 12:42 4 MG Pantoprazole Sodium (Protonix Tab) 40 mg BID PO 05/20/16 09:00 06/19/16 08:59 05/22/16 08:46 40 MG Pregabalin (Lyrica Cap) 75 mg TID PO 05/20/16 09:00 06/19/16 08:59 05/22/16 08:58 75 MG Propranolol HCl (Inderal Tab) 10 mg BID PO 05/20/16 09:00 06/19/16 08:59 05/22/16 08:47 10 MG Rifaximin (Xifaxan Tab) 550 mg AMHS PO 05/20/16 09:00 06/19/16 08:59 05/22/16 08:47 550 MG Spironolactone (Aldactone Tab) 100 mg DAILY PO 05/20/16 09:00 06/19/16 08:59 05/22/16 08:48 100 MG Triamcinolone Acetonide (Kenalog 0.1% Cream) 1 appln BID PRN EXT 05/20/16 05:00 06/19/16 04:59 Diphenhydramine HCl (Benadryl Cap) 25 mg BID PRN PO 05/20/16 05:00 06/19/16 04:59 Ferrous Sulfate (Feosol Tab) 325 mg BIDM PO 05/20/16 08:30 06/19/16 08:29 05/22/16 08:48 325 MG Pyridoxine HCl (Vitamin B-6 Tab) 25 mg HS PO 05/20/16 21:00 06/19/16 20:59 05/21/16 20:48 25 MG Hydromorphone HCl (Dilaudid Tab) 4 mg Q8 PRN PO 05/20/16 06:00 06/03/16 05:59 05/22/16 06:10 4 MG Insulin Aspart (novoLOG ASPART) SLIDING SCALE If C... ACHS SC 05/20/16 08:00 06/19/16 07:59 05/22/16 08:55 9 UNITS Glucose (Glucose 40% Gel) 15-30 GRAMS 15 GRAMS... UD PRN PO 05/20/16 05:45 06/19/16 05:44 Glucose (Glucose Chew Tab) 4-8 Tablets 4 Tabl... UD PRN PO 05/20/16 05:45 06/19/16 05:44 Dextrose (Dextrose 50% 50ML Syringe) 25-50ML OF 50% DW IV FOR... UD PRN IV 05/20/16 05:45 06/19/16 05:44 Glucagon (Glucagon Inj) 1 mg UD PRN SQ 05/20/16 05:45 06/19/16 05:44 Miscellaneous Information (Consult Glycemic Management Pharmacy) 1 ea UD PRN N/A 05/20/16 06:15 06/19/16 06:14 Miscellaneous (Iv Fluids Completed) 1 ea PRN PRN N/A 05/20/16 06:15 05/20/17 06:14 Lactulose (Chronulac Syrup) 20 gm TID PO 05/21/16 21:00 06/20/16 20:59 05/21/16 20:47 20 GM Insulin Glargine (Lantus Solostar Pen) 24 unit HS SC 05/21/16 21:00 06/20/16 20:59 05/21/16 20:54 24 UNIT Albumin Human (Albumin 25%) 12.5 gm TODAY@1200,1300,1400,1500 IV 05/22/16 12:00 05/22/16 18:00 05/22/16 12:18 12.5 GM Objective Vital Signs Date Time Temp Pulse Resp B/P Pulse Ox O2 Delivery O2 Flow Rate FiO2 05/22/16 08:39 Room Air 05/22/16 07:13 36.8 67 17 93/58 96 Room Air 05/21/16 23:35 94 Room Air 05/21/16 23:27 37.0 67 16 115/65 94 Room Air 05/21/16 20:35 71 118/72 05/21/16 16:20 93 Room Air 05/21/16 15:08 36.7 69 16 123/56 93 Room Air Physical Exam General Appearance: WD/WN, no apparent distress Eyes: normal inspection, PERRL, EOMI Neck: supple, no JVD, trachea midline Respiratory/Chest: normal breath sounds, no respiratory distress, no accessory muscle use Cardiovascular: regular rate, rhythm, no gallop, no murmur Abdomen: normal bowel sounds, + distended (mild distension ), + tenderness ( diffuse ) Extremities: normal inspection, no pedal edema, no calf tenderness Neurologic/Psych: alert, normal mood/affect, oriented x 3 Skin: normal color, no jaundice, no rash Laboratory Results Last 24 Hours Test 05/21/16 16:57 05/21/16 20:26 05/22/16 05:44 05/22/16 08:05 Bedside Glucose 165 mg/dl 89 mg/dl 146 mg/dl Prothrombin Time 13.7 SECONDS Prothromb Time International Ratio 1.3 Sodium Level 139 mmol/L Potassium Level 4.2 mmol/L Chloride Level 105 mmol/L Carbon Dioxide Level 25 mmol/L Anion Gap 9.0 mmol/L Blood Urea Nitrogen 16 mg/dl Creatinine 1.20 mg/dl Est Creatinine Clear Calc Drug Dose 61.7 ml/min Estimated GFR () 74.7 Estimated GFR (Non- 64.4 BUN/Creatinine Ratio 13.4 Random Glucose 123 mg/dl Calcium Level 8.1 mg/dl Ammonia 60.0 umol/L Test 05/22/16 12:20 05/22/16 12:21 Assessment and Plan Pt is a 61 y/o male w BETANCOURT cirrhosis complicated by ascites build up. He is already set up to have [place] [facility] [place]. Well[place] He is currently admitted for complaints of abd pain, ascites build up. Also states had fever prior to coming into hospital. He was recently just admitted for suspected SBP (formerly [facility]) though sample may be contaminated. He wasn't continued on antibx after DC. He has been afebrile since admission - U/S guided paracentesis w fluid analysis to r/o SBP. Given low BP will ask for 2L max ascites removal and give Albumin 25% 50g after paracentesis - Stable from cirrhosis standpoint, so no new med adjustments are made - Stressed importance of diet compliance (diabetic, low salt diet).
[2016-05-22 13:32] LABS: PERIT FL WBC 177 /uL (0-300); PERITONEAL FLUID RBC < 3000 /uL
--- NOTE | 2016-05-22 14:09 | Progress Note ---
Internal Med Progress Note Date of Service: May 22, 2016. Provider Documentation: SUBJECTIVE: Patient is seen and examined at bedside. Had paracentesis today. States having left sided chest pain which he denotes to having after paracentesis on many occasions. Abd pain is improved. Denies nausea, vomiting. Offers no other complaints. OBJECTIVE: Vital Signs-as noted below Physical Exam: General Appearance:Moderately built and nourished, no apparent distress Head: normocephalic, Atraumatic Eyes: normal inspection, EOMI, PERRLA Neck: supple, Trachea midline Respiratory/Chest: Normal breath sounds, CTA Cardiovascular: S1, S2, No murmur Abdomen/GI:Soft, less distended, +Umbilical hernia, Bowel sounds present Extremities/Musculoskelatal:normal inspection, 1+ b/l edema Neurologic/Psych:AAOX3, grossly no focal neurological deficits Skin: normal color, warm Lab data as noted below. 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 Schedule appointment to [facility] on July 27 for TIPS ABD USD: Moderate ascites Continue fluid restriction and low sodium diet No signs of SBP Continue Lasix, Aldactone, rifaximin Continue lactulose Ammonia levels:36 >>>60 Appreciate GI input Had Paracentesis today: Removed 4L s/p IV Albumin Follow up ascitic fluid studies CHEST PAIN: Likely musculoskeletal Check EKG, Troponin DIARRHEA Resolved Recent Abx use for possible bacteria peritonitis Likely secondary lactulose Stool for C.diff: Negative Monitor electrolytes GENERALIZED WEAKNESS/AMBULATORY DYSFUNCTION PT/OT Fall precaution H/O BETANCOURT Recurrent ascites and needs frequent paracentesis. Continue diuretics Needs TIPS CHRONIC PAIN SYNDROME Continue Dilaudid prn Follow with pain management as outpatient THROMBOCYTOPENIA Secondary to ESLD Platelet: 68 No active bleeding monitor H/O Chronic Anemia Hgb 10.2 monitor DM II Last A1c: 11.6 on 04/03/16 uncontrolled: non compliance with diet Continue Lantus, ISS CKD III Cr stable Avoid nephrotoxic agents H/O Seizure Disorder: Continue Keppra. Stable H/O PE S/P IVC filter placement Not a candidate for chronic anticoagulation due to low platelet and risk of bleeding Code Status: FULL CODE DVT PX: SCDs DISPOSITION: Continue to monitor Plan to discharge tomorrow if stable Vital Signs: Date Time Temp Pulse Resp B/P Pulse Ox O2 Delivery O2 Flow Rate FiO2 05/22/16 13:23 36.7 68 16 102/62 96 Room Air 05/22/16 12:15 36.9 65 16 96/57 97 Room Air 05/22/16 08:39 Room Air 05/22/16 07:13 36.8 67 17 93/58 96 Room Air 05/21/16 23:35 94 Room Air 05/21/16 23:27 37.0 67 16 115/65 94 Room Air 05/21/16 20:35 71 118/72 05/21/16 16:20 93 Room Air 05/21/16 15:08 36.7 69 16 123/56 93 Room Air Lab Results: Results Past 24 Hours Test 05/21/16 16:57 05/21/16 20:26 05/22/16 00:00 05/22/16 05:44 Range/Units Bedside Glucose 165 89 70-99 mg/dl Peritoneal Fluid Color YELLOW Peritoneal Fluid Appearance CLEAR Peritoneal Fluid WBC 177 0-300 /uL Peritoneal Fluid RBC < 3000 /uL Peritoneal Fld Mononuclear WBCs (%) 93.6 % Peritoneal Fld Polynuclear WBCs (%) 6.4 % Peritoneal Fluid Total Protein 1.5 g/dl Peritoneal Fluid Albumin 1.0 g/dl Prothrombin Time 13.7 9.0-12.0 SECONDS Prothromb Time International Ratio 1.3 0.9-1.1 Sodium Level 139 136-145 mmol/L Potassium Level 4.2 3.5-5.1 mmol/L Chloride Level 105 98-107 mmol/L Carbon Dioxide Level 25 21-32 mmol/L Anion Gap 9.0 3-11 mmol/L Blood Urea Nitrogen 16 7-18 mg/dl Creatinine 1.20 0.60-1.40 mg/dl Est Creatinine Clear Calc Drug Dose 61.7 ml/min Estimated GFR () 74.7 Estimated GFR (Non- 64.4 BUN/Creatinine Ratio 13.4 10-20 Random Glucose 123 70-99 mg/dl Calcium Level 8.1 8.5-10.1 mg/dl Ammonia 60.0 11-32 umol/L Test 05/22/16 08:05 05/22/16 12:41 05/22/16 14:13 Range/Units Bedside Glucose 146 116 70-99 mg/dl Microbiology Results 05/22/16 Shiga Toxin Test, Received Pending 05/22/16 Stool Culture, Received Pending 05/22/16 C.difficile Toxin B Gene (PCR) - Final, Complete No C. difficile toxin B gene detected 05/22/16 Acid Fast Stain, Received Pending 05/22/16 Mycobacterial Culture, Received Pending 05/22/16 Gram Stain, Received Pending 05/22/16 Bacterial Culture, Received Pending
[2016-05-22] MEDS: PYRIDOXINE HCL 50 MG TAB PO SCH (21:32)
[2016-05-22] MEDS: INSULIN GLARGINE SOLOSTAR 100 UNITS/ML 3 ML PEN SC SCH (21:35)
[2016-05-23 03:15] VITALS: BP 106/61; PULSE 64; TEMP 36.7; O2SAT 95
[2016-05-23] MEDS: HYDROmorphone HCL 2 MG TAB PO PRN (06:06)
[2016-05-23] MEDS: LEVOTHYROXINE 75 MCG TAB PO SCH (06:07)
[2016-05-23 07:36] VITALS: BP 100/58; PULSE 63; TEMP 36.7; O2SAT 97
[2016-05-23] MEDS: ESCITALOPRAM OXALATE 10 MG TAB PO SCH (08:35)
[2016-05-23] MEDS: PROPRANOLOL HCL 10 MG TAB PO SCH (08:35)
[2016-05-23] MEDS: FERROUS SULFATE 325 MG TAB PO SCH (08:35)
[2016-05-23] MEDS: SPIRONOLACTONE 100 MG TAB PO SCH (08:36)
[2016-05-23] MEDS: PANTOprazole SOD 40 MG TAB PO SCH (08:36)
[2016-05-23] MEDS: RIFAXIMIN TAB 550 MG TAB PO SCH (08:36)
[2016-05-23] MEDS: MAGNESIUM OXIDE 400 MG TAB PO SCH (08:37)
[2016-05-23] MEDS: FUROSEMIDE 20 MG TAB PO SCH (08:37)
[2016-05-23] MEDS: LEVETIRACETAM 500 MG TAB PO SCH (08:37)
[2016-05-23] MEDS: PREGABALIN 75 MG CAP PO SCH (08:42)
[2016-05-23] MEDS: INSULIN ASPART 100 UNITS/ML 3 ML PEN SC SCH ×2 (08:46→13:10)
[2016-05-23] MEDS: LACTULOSE SYRUP 20 GM/30 ML UDC PO SCH (08:47)
--- NOTE | 2016-05-23 08:57 | Progress Note ---
Internal Med Progress Note Date of Service: May 23, 2016. Provider Documentation: SUBJECTIVE: Patient is seen and examined at bedside. Doing well this morning. Abdominal pain is much improved. Chest pain has resolved. Denies nausea, vomiting. Offers no other complaints. Had 3 BMs today OBJECTIVE: Vital Signs-as noted below Physical Exam: General Appearance:Moderately built and nourished, no apparent distress Head: normocephalic, Atraumatic Eyes: normal inspection, EOMI, PERRLA Neck: supple, Trachea midline Respiratory/Chest: Normal breath sounds, CTA Cardiovascular: S1, S2, No murmur Abdomen/GI:Soft, less distended, +Umbilical hernia, Bowel sounds present Extremities/Musculoskelatal:normal inspection, 1+ b/l edema Neurologic/Psych:AAOX3, grossly no focal neurological deficits Skin: normal color, warm Lab data as noted below. 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 Schedule appointment to [place] on July 27 for TIPS ABD USD: Moderate ascites Continue fluid restriction and low sodium diet No signs of SBP Continue Lasix, Aldactone, rifaximin Continue lactulose Ammonia levels:36 >>>60 but no mental status changes Appreciate GI input Had Paracentesis today: Removed 4L s/p IV Albumin Follow up ascitic fluid studies:pending CHEST PAIN: Likely musculoskeletal EKG: no acute changes, Troponin X2: Negative Resolved DIARRHEA Recent Abx use for possible bacteria peritonitis Likely secondary lactulose Stool for C.diff: Negative Monitor electrolytes GENERALIZED WEAKNESS/AMBULATORY DYSFUNCTION PT/OT Fall precaution H/O BETANCOURT Recurrent ascites and needs frequent paracentesis. Continue diuretics Needs TIPS CHRONIC PAIN SYNDROME Continue Dilaudid prn Follow with pain management as outpatient THROMBOCYTOPENIA Secondary to ESLD No active bleeding monitor H/O Chronic Anemia Hgb 10.2 monitor DM II Last A1c: 11.6 on 04/03/16 Admits to non compliance with diet Continue Lantus, ISS CKD III Cr stable Avoid nephrotoxic agents H/O Seizure Disorder: Continue Keppra Stable H/O PE S/P IVC filter placement Not a candidate for chronic anticoagulation due to low platelet and risk of bleeding Code Status: FULL CODE DVT PX: SCDs DISPOSITION: Plan to discharge home today Follow up with on May 25, 2016 at 12:45pm Follow up with Dr. Weller, Hepatology in [place] for TIPS evaluation on July 27 at 3:30pm Vital Signs: Date Time Temp Pulse Resp B/P Pulse Ox O2 Delivery O2 Flow Rate FiO2 05/23/16 08:28 Room Air 05/23/16 07:36 36.7 63 17 100/58 97 Room Air 05/23/16 03:15 36.7 64 16 106/61 95 Room Air 05/23/16 00:00 Room Air 05/22/16 23:00 37.1 65 16 101/50 95 Room Air 05/22/16 21:26 64 105/58 05/22/16 16:54 36.7 71 16 100/57 96 Room Air 05/22/16 15:33 Room Air 05/22/16 15:25 36.7 66 18 115/67 96 Room Air 05/22/16 13:23 36.7 68 16 102/62 96 Room Air 05/22/16 12:15 36.9 65 16 96/57 97 Room Air Lab Results: Results Past 24 Hours Test 05/22/16 12:41 05/22/16 14:25 05/22/16 17:13 05/22/16 19:59 Range/Units Bedside Glucose 116 90 70-99 mg/dl Troponin I < 0.015 < 0.015 0-0.045 ng/ml Test 05/22/16 20:43 05/23/16 08:12 Range/Units Bedside Glucose 171 133 70-99 mg/dl
[2016-05-23] MEDS ORDERED: HYDR4TAB78 PO (09:03)
--- NOTE | 2016-05-23 09:09 | Discharge Summary ---
Discharge Summary Date of Service May 23, 2016. Discharge Summary Admission Date: May 20, 2016 at 07:57 Discharge Date: May 23, 2016 Discharge Disposition: Home Principal Diagnosis: Recurrent Ascites Secondary to BETANCOURT S/P Paracentesis Procedures: Abdominal Paracentesis Consultations: GI, Interventional radiology Pending Studies/Follow-Up: Follow up with on May 25, 2016 at 12:45pm Follow up with Dr. Weller, Hepatology in [place] for TIPS evaluation on July 27 at 3:30pm Takes medications regularly as advised. Diet: Strict diabetic diet 1500ML fluid restriction Low sodium diet Medication Reconciliation Continued Medications: Diphenhydramine Hcl (Sleep) (Diphenhydramine Hcl) 50 Mg Tab 25 MG PO BID PRN for Itching for 30 Days, #30 TAB 1 Refill Escitalopram (Lexapro) 10 Mg Tab 10 MG PO DAILY, TAB Ferrous Sulfate (Kp Ferrous Sulfate) 325 Mg Tab 325 MG PO BID, TAB Furosemide (Lasix) 20 Mg Tab 20 MG PO BID, TAB Hydromorphone Hcl (Dilaudid) 4 Mg Tab 4 MG PO Q8 for Pain for 2 Days, #6 TAB (This prescription has been renewed) Insulin Aspart (Novolog Penfill) 100 Unit/Ml Inj SQ TIDM via SSI Insulin Aspart (Novolog) 100 Units/Ml Inj 10 UNITS SQ TIDM Insulin Glargine (Lantus) 100 Unit/Ml Inj 32 UNITS SC HS, VIAL Lactulose (Chronulac) 10 Gm/15 Ml Syrp 20 GM PO TID Levetiractam (Levetiracetam) 500 Mg Tab 500 MG PO AMHS Levothyroxine Sodium (Synthroid) 75 Mcg Tab 75 MCG PO DAILY, TAB Magnesium Oxide (Mag-Ox) 400 Mg Tab 400 MG PO BID Ondasetron Odt (Zofran Odt) 4 Mg Tab 4 MG SL Q6H PRN for Nausea or Vomiting, TAB Pantoprazole (Protonix) 40 Mg Tab 40 MG PO BID, TAB Pregabalin (Lyrica) 75 Mg Cap 75 MG PO TID, CAP Propranolol (Inderal) 10 Mg Tab 10 MG PO BID, TAB Pyridoxine Hcl (Vitamin B-6) 25 Mg Tab 25 MG PO HS Rifaximin (Xifaxan) 550 Mg Tab 550 MG PO AMHS ONE AT BREAKFAST AND ONE AT SUPPER. Spironolactone (Aldactone) 100 Mg Tab 1 TAB PO DAILY for 30 Days, #30 TAB 11 Refills Triamcinolone Acet (Aristocort 0.1%) 90 Appln/30 Gm Cr 1 APPL EXT BID PRN for dermatitis Admission Information HPI (per Admitting provider): 61 year old male with PMH of Liver cirrhosis, BETANCOURT, thrombocytopenia, chronic pain syndrome, generalized weakness presents to the Emergency Room with complaints of shortness of breath, abdominal tenderness and generalized weakness. Pt has multiple admission for recurrent ascites and weakness. He was discharged 5 days ago and was treated for possible bacterial peritonitis after ascites culture from 05/05 paracentesis grew Coag neg staph not lugdunensis. he completed 5 days course of Rocephin. He had his last paracentesis on 05/11 where 3.4L ascites fluid removed. Pt said that he has been having watery diarrhea. He said that he had more than 17 episodes. He said that his PCP told him to take Imodium that seems to help a little with the diarrhea. he said that he feels the fluid start to accumulate in his abdomen. his abdominal pain is about 3/10 and located across the lower abdomen. Pt said that he feels very weak. He said that he cannot stand on his feet because his legs are too weak. He said that his roommate went to [place]. He has been crawling on his hands and knees in the house. He denies any fever, palpitation, dizziness and chest pain Physical Exam (per Admitting): General Appearance: WD/WN, no apparent distress Head: normocephalic, atraumatic Eyes: normal inspection, PERRL, EOMI ENT: normal ENT inspection, hearing grossly normal Neck: supple, no JVD Respiratory/Chest: chest non-tender, lungs clear, normal breath sounds, no respiratory distress, no accessory muscle use Cardiovascular: regular rate, rhythm, no JVD, no murmur Abdomen/GI: normal bowel sounds, + tenderness, + distended, + pertinent finding (ascites) Back: normal inspection, no CVA tenderness Extremities/Musculoskelatal: normal inspection, no calf tenderness Neurologic/Psych: no motor/sensory deficits, alert, normal mood/affect, oriented x 3 Skin: normal color, warm/dry Hospital Course RECCURENT ASCITES 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 Schedule appointment to [place] on July 27 for TIPS ABD USD: Moderate ascites Continue fluid restriction and low sodium diet No signs of SBP Continue Lasix, Aldactone, rifaximin Continue lactulose Ammonia levels:36 >>>60 but no mental status changes Appreciate GI input Had Paracentesis today: Removed 4L s/p IV Albumin Follow up ascitic fluid studies:pending CHEST PAIN: Likely musculoskeletal EKG: no acute changes, Troponin X2: Negative Resolved DIARRHEA Recent Abx use for possible bacteria peritonitis Likely secondary lactulose Stool for C.diff: Negative Monitor electrolytes GENERALIZED WEAKNESS/AMBULATORY DYSFUNCTION PT/OT Fall precaution H/O BETANCOURT Recurrent ascites and needs frequent paracentesis. Continue diuretics Needs TIPS CHRONIC PAIN SYNDROME Continue Dilaudid prn Follow with pain management as outpatient THROMBOCYTOPENIA Secondary to ESLD No active bleeding monitor H/O Chronic Anemia Hgb 10.2 monitor DM II Last A1c: 11.6 on 04/03/16 Admits to non compliance with diet Continue Lantus, ISS CKD III Cr stable Avoid nephrotoxic agents H/O Seizure Disorder: Continue Keppra Stable H/O PE S/P IVC filter placement Not a candidate for chronic anticoagulation due to low platelet and risk of bleeding Code Status: FULL CODE DVT PX: SCDs DISPOSITION: Plan to discharge home today Follow up with on May 25, 2016 at 12:45pm Follow up with Dr. Weller, Hepatology in [place] for TIPS evaluation on July 27 at 3:30pm Total time spent on discharge = 35 minutes This includes examination of the patient, discharge planning, medication reconciliation, and communication with other providers. Discharge Instructions Discharge Instructions Date of Service May 23, 2016. Admission Reason for Admission: Abdominal Pain, Ascites Discharge Discharge Diagnosis / Problem: Recurrent Ascites Secondary to BETANCOURT S/P Paracentesis Discharge Goals Goal(s): Decrease discomfort, Improve function Activity Recommendations Activity Limitations: resume your previous activity Exercise/Sports Limitations: as tolerated . Instructions / Follow-Up Instructions / Follow-Up Follow up with on May 25, 2016 at 12:45pm Follow up with Dr. Weller, Hepatology in [place] for TIPS evaluation on July 27 at 3:30pm Takes medications regularly as advised. Diet: Strict diabetic diet 1500ML fluid restriction Low sodium diet Current Hospital Diet Patient's current hospital diet: Diabetes Type 2 Diet, Low Sodium Diet (2gm Na) Discharge Diet Recommended Diet: Low Sodium Diet (2gm Na), Diabetes Type 2 Diet Fluid Restriction: 1500 ml (6 cups) Pending Studies Studies pending at discharge: yes List of pending studies: Peritoneal fluid cultures Laboratory Results Hemoglobin A1c Test 04/03/16 05:54 Range/Units Estimated Average Glucose 286 mg/dl Hemoglobin A1c 11.6 H 4.5-5.6 % Medical Emergencies . Who to Call and When: Medical Emergencies: If at any time you feel your situation is an emergency, please call 911 immediately. . Non-Emergent Contact Non-Emergency issues call your: Primary Care Provider, Manager Council Call Non-Emergent contact if: you have a fever, your pain is not controlled, your pain is worsening, your pain is unusual for you, you have any medication questions . . "Provider Documentation" section prepared by Yifan Rao. VTE Core Measure Inpt VTE Proph given/why not?: SCD's
[2016-05-23 09:48] VITALS: BP 100/58; PULSE 63; TEMP 36.7; O2SAT 97
[2016-07-01] MEDS ORDERED: MAGN400T5 PO (01:36)
[2016-07-01] MEDS ORDERED: DIPH50TA10 PO (02:00)
[2016-07-01] MEDS ORDERED: TRMCR130WC EXT (03:58)
[2016-07-01] MEDS ORDERED: LACT10SO17 PO (04:04)
[2016-07-01] MEDS ORDERED: PROP10TA7 PO (04:52)
[2016-07-01] MEDS ORDERED: PYRI25TA9 PO (04:52)
[2016-07-01] MEDS ORDERED: FURO-85 PO (05:55)
[2016-07-01] MEDS ORDERED: ONDA4TAB10 SL (12:02)
[2016-07-01] MEDS ORDERED: LEVO75TA PO (12:02)
[2016-07-01] MEDS ORDERED: RIFA550T2 PO (13:45)
[2016-07-01] MEDS ORDERED: FERR1TAB13 PO (14:58)
[2016-07-01] MEDS ORDERED: LEVE500T PO (16:08)
[2016-07-01] MEDS ORDERED: INSDGI SC (16:08)
[2016-08-22] MEDS ORDERED: MRLP17 PO (09:03)
[2016-08-22] MEDS ORDERED: INSDGI SC (09:03)
[2016-08-29] MEDS ORDERED: POLY335019 PO (12:27)
[2016-08-29] MEDS ORDERED: INSDGI SC (12:27)
[2016-09-18] MEDS ORDERED: DIPH25CA5 PO (10:22)
[2016-10-28] MEDS ORDERED: XFX550 PO (14:18)
[2016-11-06] MEDS ORDERED: LCTX PO (14:29)
[2016-11-06] MEDS ORDERED: CLIN300C2 PO (14:29)
[2016-11-18] MEDS ORDERED: CLIN300C2 PO (10:23)
[2016-11-23] MEDS ORDERED: DOCU100C31 PO (07:52)
[2016-11-23] MEDS ORDERED: BISA10SU7 PR (07:52)
[2016-11-23] MEDS ORDERED: MOML PO (07:52)
[2016-11-23] MEDS ORDERED: SODIENE PR (07:52)
[2016-11-23] MEDS ORDERED: SENN-65 PO (07:52)
[2016-11-23] MEDS ORDERED: [UNRECOGNIZED DRUG - CODE] PO (07:54)
[2016-11-23] MEDS ORDERED: GLGKIT SC (07:54)
== END 2016-05-23 13:46 | disposition home health service (06) | DRG 433 ==
LOC: ENRESERVDT → ENRESERVTM → EDBD 01:17 → C.EDA 01:18 → C.MSW 04:49 → OBSVTOIN 07:57
PROVIDERS: ADMIT Internal Medicine; ATTEND Internal Medicine
PROC: 0W9G3ZX Drainage of Peritoneal Cavity, Percutaneous Approach, Diagnostic (ICD-10-PCS; principal; 2016-05-20)
DX: K74.60 Unspecified cirrhosis of liver (principal); R18.8 Other ascites; K75.81 Nonalcoholic steatohepatitis (NASH); R19.7 Diarrhea, unspecified; T47.3X5A Adverse effect of saline and osmotic laxatives, initial encounter; R07.89 Other chest pain; R53.1 Weakness; R06.02 Shortness of breath; R26.2 Difficulty in walking, not elsewhere classified; D69.59 Other secondary thrombocytopenia; D64.9 Anemia, unspecified; E11.65 Type 2 diabetes mellitus with hyperglycemia; E11.22 Type 2 diabetes mellitus with diabetic chronic kidney disease; N18.3 Chronic kidney disease, stage 3 (moderate); E03.9 Hypothyroidism, unspecified; G89.4 Chronic pain syndrome; Z91.11 Patient's noncompliance with dietary regimen; G40.909 Epilepsy, unspecified, not intractable, without status epilepticus; F41.9 Anxiety disorder, unspecified; F32.9 Major depressive disorder, single episode, unspecified; Z86.711 Personal history of pulmonary embolism; Z98.1 Arthrodesis status; Z79.4 Long term (current) use of insulin; Z79.891 Long term (current) use of opiate analgesic; Z79.899 Other long term (current) drug therapy

== ENCOUNTER 2016-05-25 11:30 | Emergency (ER) | payer OTHER ==
[~2016-05-25] VITALS: Ht 182.9 cm; Wt 76.3 kg
[2016-05-25 11:30] VITALS: TEMP 36.5; O2SAT 100; Ht 182.9 cm; Wt 76.3 kg
[~2016-05-25 11:30] MED LIST changes: -DIPH25CA50 PO; -HYDR2TAB48 PO; +HYDR4TAB78 PO
--- NOTE | 2016-05-25 12:32 | EMERGENCY ROOM VISIT NOTE ---
History Report prepared by Alla: Patric Ferguson Under the Supervision of: Dr. Jacqueline Johansen D.O. First contact with patient: 12:14 Chief Complaint: ALTERED MENTAL STATUS Stated Complaint: ALTERED MENTAL STATUS Nursing Triage Summary: Pt arrives via ALS. Pt from own home, suffers with BETANCOURT. Pt was found to be confused and hallucinating "seeing cows" per Home Health RN. BSG 232 prehospital. Pt states he was recently d/c from the hospital due to a Staph infection in his fluid tap History of Present Illness The patient is a 61 year old male who presents to the Emergency Room with complaints of an episode of altered mental status that occurred prior to arrival this morning. He states that he woke up with a headache and was feeling nauseous, so he laid down on his couch. The patient says that he fell asleep, and when he woke up, he could not remember where he was and he could not find the bathroom. He laid down another 20 minutes, and then started to get better, but his home health care nurse said that something was not right with the patient. The patient was noted to be fooling around on the kitchen table trying to fix his gun, and on the way here on the ambulance, the patient thought he was having a hoagie. He has been hallucinating "seeing cows" as well. The patient notes that he has had increased frequency of bowel movements this morning, as he has gone 4 times today. However, the patient is taking Lactulose because he is usually constipated. The patient notes that he has been fighting a GI bug recently. The patient states that these episodes of confusion have occurred twice before, the last one being 5 years ago. He was recently hospitalized and discharged due to a Staph infection in his stomach. The patient had fluid drained from his abdomen, and felt better. The patient states that he has been in and out of the hospital recently, and the last time he was discharged, he knew something was not right. The patient denies any fevers or vomiting. He notes no stroke history. The patient's BSG was 232 prehospital. He is scheduled to see a prisoner classification interviewer in July to be evaluated for the possibility of a TIPS procedure because he has been here too often to be drained. Source of History: patient, nursing staff Onset: Prior to arrival this morning Position: other (global - altered mental status) Symptom Intensity: could not find bathroom, was hallucinating Timing: other (episode) Associated Symptoms: + headache, + nausea, No fevers, No vomiting Note: Associated symptoms: Increased frequency of bowel movement this morning. Review of Systems See HPI for pertinent positives & negatives. A total of 10 systems reviewed and were otherwise negative. 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 Surgical Problems: (1) H/O esophagogastroduodenoscopy (2) H/O knee surgery (3) S/P cervical spinal fusion (4) S/P IVC filter (5) S/P lumbar fusion (6) S/P T&A (status post tonsillectomy and adenoidectomy) Family History FH: CAD (coronary artery disease) FATHER FH: breast cancer MOTHER Social History Smoking Status: Never Smoker Alcohol Use: none Drug Use: none Marital Status: single Housing Status: lives alone Occupation Status: retired Current/Historical Medications Scheduled Escitalopram (Lexapro), 10 MG PO DAILY Ferrous Sulfate (Kp Ferrous Sulfate), 325 MG PO BID Furosemide (Lasix), 20 MG PO BID Hydromorphone Hcl (Dilaudid), 4 MG PO Q8 Insulin Aspart (Novolog Penfill), SQ TIDM Insulin Aspart (Novolog), 10 UNITS SQ TIDM Insulin Glargine (Lantus), 32 UNITS SC HS Lactulose (Chronulac), 20 GM PO TID Levetiractam (Levetiracetam), 500 MG PO AMHS Levothyroxine Sodium (Synthroid), 75 MCG PO DAILY Magnesium Oxide (Mag-Ox), 400 MG PO BID Pantoprazole (Protonix), 40 MG PO BID Pregabalin (Lyrica), 75 MG PO TID Propranolol (Inderal), 10 MG PO BID Pyridoxine Hcl (Vitamin B-6), 25 MG PO HS Rifaximin (Xifaxan), 550 MG PO AMHS Spironolactone (Aldactone), 1 TAB PO DAILY Scheduled PRN Diphenhydramine Hcl (Sleep) (Diphenhydramine Hcl), 25 MG PO BID PRN for Itching Ondasetron Odt (Zofran Odt), 4 MG SL Q6H PRN for Nausea or Vomiting Triamcinolone Acet (Aristocort 0.1%), 1 APPL EXT BID PRN for dermatitis Allergies Coded Allergies: Acetaminophen (Verified Allergy, Severe, ESLD (BETANCOURT). on Liver transplant list. Cannot have APAP., 05/20/16) NSAIDs (Verified Allergy, Severe, DUE TO LIVER DISEAS, 05/20/16) Penicillins (Verified Allergy, Severe, JOINT SWELLING AND FEVER, 05/20/16) Levofloxacin (Verified Allergy, Mild, RASH, 05/20/16) pt developed erythema at site of IV injection with itching Vancomycin (Verified Allergy, Mild, HIVES, 05/20/16) HIVES Tramadol (Verified Allergy, Unknown, NOT TO TAKE WITH KEPPRA DUE TO SEIZURE RISK, 05/20/16) Physical Exam Vital Signs Date Time Temp Pulse Resp B/P Pulse Ox O2 Delivery O2 Flow Rate FiO2 05/25/16 16:00 64 20 120/64 95 Room Air 05/25/16 15:06 66 18 126/69 94 Room Air 05/25/16 14:05 72 19 117/93 96 Room Air 05/25/16 13:00 69 18 126/74 96 Room Air 05/25/16 11:30 100 Room Air 05/25/16 11:30 36.5 67 21 117/66 100 Room Air Physical Exam GENERAL: alert, well appearing, well nourished, no distress, non-toxic EYE EXAM: normal conjunctiva, PERRL and EOM's grossly intact OROPHARYNX: no exudate, no erythema, lips, buccal mucosa, and tongue normal and mucous membranes are mildly dry, poor dentition NECK: supple, no nuchal rigidity, no adenopathy, non-tender LUNGS: Lung sounds are decreased, but no wheezing, rhonchi, or rales. HEART: no murmurs, S1 normal and S2 normal ABDOMEN: Abdomen mildly distended. Small umbilical hernia, easily reducible. No rebound, guarding. Mild fluid wave. BACK: Back is symmetrical on inspection and there is no deformity, no midline tenderness, no CVA tenderness. SKIN: no rashes and no bruising UPPER EXTREMITIES: upper extremities are grossly normal. LOWER EXTREMITIES: Trace to 1+ bilateral lower extremity edema. NEURO EXAM: Normal sensorium, cranial nerves II-XII grossly intact, normal speech, no gross weakness of arms, no gross weakness of legs. No drift. Finger to nose intact. Gross sensation intact. Oriented and recounts all events of this morning in detail including when he was "confused". Speaks clearly. No facial droop. NIHSS 0. Medical Decision & Procedures ER Provider Diagnostic Interpretation: CT results per the radiologist and my interpretation. CT HEAD WITHOUT CONTRAST (CT) CLINICAL HISTORY: Acute change in mental status. COMPARISON STUDY: 04/30/2016 TECHNIQUE: Axial CT of the brain is performed from the vertex to the skull base. IV contrast was not administered for this examination. CT DOSE: 537.48 mGy.cm FINDINGS: No intra or extra-axial mass lesions are visualized. There is no CT evidence of acute cortical infarction. There is no evidence of midline shift. There is no acute hemorrhage. No calvarial fractures are visualized. There are minor white matter hypodensities likely on a small vessel basis. There is no evidence of pathologic ventricular dilatation. There is no evidence of acute sinusitis IMPRESSION: No acute intracranial findings Electronically signed by: Pawan Garner M.D. 05/25/2016 1:16 PM Dictated Date/Time: 05/25/2016 1:15 PM Laboratory Results 05/25/16 13:00 Red Blood Count 4.10, Mean Corpuscular Volume 79.0, Mean Corpuscular Hemoglobin 25.9, Mean Corpuscular Hemoglobin Concent 32.7, Neutrophils (%) (Auto) 77.8, Lymphocytes (%) (Auto) 9.9, Monocytes (%) (Auto) 9.4, Eosinophils (%) (Auto) 2.5 , Basophils (%) (Auto) 0.3, Neutrophils # (Auto) 5.28, Lymphocytes # (Auto) 0.67 , Monocytes # (Auto) 0.64, Eosinophils # (Auto) 0.17, Basophils # (Auto) 0.02 05/25/16 13:00 Test 4/20/17 11:37 05/25/16 13:00 05/25/16 13:55 Bedside Glucose 212 mg/dl (70-99) White Blood Count 6.79 K/uL (4.8-10.8) Red Blood Count 4.10 M/uL (4.7-6.1) Hemoglobin 10.6 g/dL (14.0-18.0) Hematocrit 32.4 % (42-52) Mean Corpuscular Volume 79.0 fL (80-100) Mean Corpuscular Hemoglobin 25.9 pg (25-34) Mean Corpuscular Hemoglobin Concent 32.7 g/dl (32-36) Platelet Count 59 K/uL (130-400) Neutrophils (%) (Auto) 77.8 % Lymphocytes (%) (Auto) 9.9 % Monocytes (%) (Auto) 9.4 % Eosinophils (%) (Auto) 2.5 % Basophils (%) (Auto) 0.3 % Neutrophils # (Auto) 5.28 K/uL (1.4-6.5) Lymphocytes # (Auto) 0.67 K/uL (1.2-3.4) Monocytes # (Auto) 0.64 K/uL (0.11-0.59) Eosinophils # (Auto) 0.17 K/uL (0-0.5) Basophils # (Auto) 0.02 K/uL (0-0.2) RDW Standard Deviation 68.3 fL (36.4-46.3) RDW Coefficient of Variation 23.9 % (11.5-14.5) Immature Granulocyte % (Auto) 0.1 % Immature Granulocyte # (Auto) 0.01 K/uL (0.00-0.02) Platelet Estimate DECREASED Giant Platelets 1+ Anisocytosis PRESENT Microcytosis PRESENT Prothrombin Time 13.4 SECONDS (9.0-12.0) Prothromb Time International Ratio 1.2 (0.9-1.1) Anion Gap 9.0 mmol/L (3-11) Est Creatinine Clear Calc Drug Dose 82.7 ml/min Estimated GFR () 93.1 Estimated GFR (Non- 80.3 BUN/Creatinine Ratio 17.2 (10-20) Lactic Acid Level 1.6 mmol/L (0.4-2.0) Calcium Level 9.5 mg/dl (8.5-10.1) Total Bilirubin 1.2 mg/dl (0.2-1) Aspartate Amino Transf (AST/SGOT) 33 U/L (15-37) Alanine Aminotransferase (ALT/SGPT) 28 U/L (12-78) Alkaline Phosphatase 117 U/L (45-117) Ammonia 34.0 umol/L (11-32) Total Protein 6.1 gm/dl (6.4-8.2) Albumin 3.4 gm/dl (3.4-5.0) Globulin 2.7 gm/dl (2.5-4.0) Albumin/Globulin Ratio 1.3 (0.9-2) Urine Color DK YELLOW Urine Appearance CLEAR (CLEAR) Urine pH 5.0 (4.5-7.5) Urine Specific Raven 1.016 (1.000-1.030) Urine Protein NEG (NEG) Urine Glucose (UA) NEG (NEG) Urine Ketones NEG (NEG) Urine Occult Blood NEG (NEG) Urine Nitrite NEG (NEG) Urine Bilirubin NEG (NEG) Urine Urobilinogen NEG (NEG) Urine Leukocyte Esterase NEG (NEG) Laboratory results per my review. Medications Administered Medications (Trade) Dose Ordered Sig/Ryan Route Start Time Stop Time Status Last Admin Dose Admin Hydromorphone HCl (Dilaudid Inj) 1 mg ONE STAT IV 05/25/16 13:37 05/25/16 13:39 DC 05/25/16 14:13 1 MG ECG Indication: altered mental status Rate (beats per minute): 74 Rhythm: normal sinus Findings: no acute ischemic change, other (normal axis, normal intervals) ED Course 1217: The patient was evaluated in room A12B. A complete history and physical exam was performed. 1337: Ordered Dilaudid Inj 1 mg IV. 1424: I reevaluated the patient and he states that when he tried to get up, his legs got weak and wobbly. The patient also had a 5 minute episode of confusion a bit earlier. I will have to talk to case management. 1500: Discussed with hospitalist - Emily Nelson. Well known to them. Given no acute changes in objective data, feel pt likely with malingering , hoping to gain admission. Recommended case mgmt attempting to place in rehab. 1520: Pt refused rehab when case mgmt spoke to him. Told case mgmt he will just take a cab home. Discussed arrangement of nursing aides tomorrow to recheck pt. Likely component of anxiety given pt's roommate out of town for a few days. The patient verbally expressed understanding and agreement of the treatment plan. The patient will be discharged. Medical Decision Prior records/ancillary studies reviewed and summarized above. Nursing notes reviewed. The patient's history was concerning for altered mental status. Differential diagnosis: Etiologies such as metabolic, infection, hypoglycemia, electrolyte abnormalities , cardiac sources, intracerebral event, toxicologic, neurologic, as well as others were entertained. While pt has significant underlying medical conditions that are chronic, there did not appear to be any acute changes today. When discussing that his results were negative, pt then began to state he was too weak to go home. Pt mentioned he is alone this week as his roommate is OOT. Concern for secondary gain to admission. On discussion with hospitalist, pt well known to them and has previously shown evidence of secondary gain to hospital admission and complained of new symptoms when he was set to be discharged. Pt refused case mgmt suggestion of rehab facility and at that point stated he "wanted to take a cab home". Low suspicion for CVA, TGA, VBI, dysrhythmia, occult infectious etiology including bacteremia/sepsis. No evidence of ICH. No sx to suggest recurrence of SBP. Hernia reducible and abd soft/NT when pt distracted. Doubt mesenteric ischemia, incarcerated hernia, perf, volvulus, colitis, sbo. Doubt cardiac pathology. Doubt thromboembolic process. Pt able to ambulate and tolerating po without difficulty. VS stable throughout. Labs at baseline compared to prior. Doubt seizure as pt recalls all events in detail. Discussed with pt sx to watch/return for, f/u with PCP, contacting home health aide who checks on him and family who assists in his care. Encouraged to keep scheduled appt with GI/hepatology, he verbalized understanding and was agreeable with plan. Consults Time Called: 1455 Consulting Physician: Emily Nelson hospitalist Returned Call: 1500 Discussed with hospitalist - Emily Nelson. Well known to them. Given no acute changes in objective data, feel pt likely with malingering, hoping to gain admission. Recommended case mgmt attempting to place in rehab. Impression Primary Impression: Anxiety Additional Impressions: BETANCOURT (nonalcoholic steatohepatitis) Chronic pain Thrombocytopenia Scribe Attestation The scribe's documentation has been prepared under my direction and personally reviewed by me in its entirety. I confirm that the note above accurately reflects all work, treatment, procedures, and medical decision making performed by me. Departure Information Dispostion Home / Self-Care Referrals Chacha Munoz D.O. (PCP) Forms HOME CARE DOCUMENTATION FORM, IMPORTANT VISIT INFORMATION Patient Instructions My [facility] Additional Instructions Please continue your regular medications as prescribed. Please eat and drink normally. If you have any new or concerning symptoms, please return to the emergency room. Please keep your appointment with the liver specialist as scheduled. Please have the aide who comes to your house check on you again tomorrow. Problem Qualifiers Additional Impressions: Chronic pain Chronic pain type: chronic pain syndrome Qualified Codes: G89.4 - Chronic pain syndrome
[2016-05-25 13:17] LABS: MEAN CORPUSCULAR HGB CONC 32.7 g/dl (32-36)
--- NOTE | 2016-05-25 13:19 | DIAGNOSTIC IMAGING REPORT ---
CT HEAD WITHOUT CONTRAST (CT) CLINICAL HISTORY: Acute change in mental status. COMPARISON STUDY: 04/30/2016 TECHNIQUE: Axial CT of the brain is performed from the vertex to the skull base. IV contrast was not administered for this examination. CT DOSE: 537.48 mGy.cm FINDINGS: No intra or extra-axial mass lesions are visualized. There is no CT evidence of acute cortical infarction. There is no evidence of midline shift. There is no acute hemorrhage. No calvarial fractures are visualized. There are minor white matter hypodensities likely on a small vessel basis. There is no evidence of pathologic ventricular dilatation. There is no evidence of acute sinusitis IMPRESSION: No acute intracranial findings Electronically signed by: Pawan Garner M.D. 05/25/2016 1:16 PM Dictated Date/Time: 05/25/2016 1:15 PM
[2016-05-25 13:27] LABS: INR 1.2 (0.9-1.1); PROTHROMBIN TIME (PATIENT) 13.4 SECONDS (9.0-12.0)
[2016-05-25 13:28] LABS: HEMATOCRIT 32.4 % (42-52); MEAN CORPUSCULAR HEMOGLOBIN 25.9 pg (25-34); WHITE BLOOD COUNT 6.79 K/uL (4.8-10.8)
[2016-05-25] MEDS ORDERED: HYDROmorphone INJ 1 MG/ML SYR IV STA (13:37)
[2016-05-25 13:38] LABS: CALCIUM 9.5 mg/dl (8.5-10.1)
[2016-05-25 13:44] LABS: ALB/GLOB RATIO 1.3 (0.9-2); BUN/CREATININE RATIO 17.2 (10-20); POTASSIUM 4.2 mmol/L (3.5-5.1)
[2016-05-25 13:52] LABS: PLATELET COUNT 59 K/uL (130-400)
[2016-05-25 13:55] LABS: ANISOCYTOSIS PRESENT; BASO % 0.3 %; BASO ABS # 0.02 K/uL (0-0.2); COMPLETE YES; EOS % 2.5 %; GIANT PLATELETS 1+; IG% 0.1 %; LYMPH % 9.9 %; LYMPH ABS # 0.67 K/uL (1.2-3.4); MICROCYTOSIS PRESENT; MONO % 9.4 %; NEUT % 77.8 %; PLT ESTIMATE DECREASED
[2016-05-25 14:54] LABS: URINE APPEARANCE CLEAR (CLEAR); URINE BILIRUBIN NEG (NEG); URINE COLOR DK YELLOW; URINE NITRITE NEG (NEG); URINE SPECIFIC GRAVITY 1.016 (1.000-1.030); UROBILINOGEN NEG (NEG); ZZUR CULT IF INDIC CLEAN CATCH NO
[2016-05-25 15:03] LABS: MANUAL MICROSCOPIC REQUIRED? NO; REVIEW REQ? NO
[2016-05-25 16:00] VITALS: BP 120/64; PULSE 64; O2SAT 95
[2016-07-01] MEDS ORDERED: MAGN400T5 PO (01:36)
[2016-07-01] MEDS ORDERED: DIPH50TA10 PO (02:00)
[2016-07-01] MEDS ORDERED: TRMCR130WC EXT (03:58)
[2016-07-01] MEDS ORDERED: LACT10SO17 PO (04:04)
[2016-07-01] MEDS ORDERED: PYRI25TA9 PO (04:52)
[2016-07-01] MEDS ORDERED: PROP10TA7 PO (04:52)
[2016-07-01] MEDS ORDERED: FURO-85 PO (05:55)
[2016-07-01] MEDS ORDERED: LEVO75TA PO (12:02)
[2016-07-01] MEDS ORDERED: ONDA4TAB10 SL (12:02)
[2016-07-01] MEDS ORDERED: RIFA550T2 PO (13:45)
[2016-07-01] MEDS ORDERED: FERR1TAB13 PO (14:58)
[2016-07-01] MEDS ORDERED: LEVE500T PO (16:08)
[2016-07-01] MEDS ORDERED: INSDGI SC (16:08)
[2016-08-22] MEDS ORDERED: MRLP17 PO (09:03)
[2016-08-22] MEDS ORDERED: INSDGI SC (09:03)
[2016-08-29] MEDS ORDERED: POLY335019 PO (12:27)
[2016-08-29] MEDS ORDERED: INSDGI SC (12:27)
[2016-09-18] MEDS ORDERED: DIPH25CA5 PO (10:22)
[2016-10-28] MEDS ORDERED: XFX550 PO (14:18)
[2016-11-06] MEDS ORDERED: CLIN300C2 PO (14:29)
[2016-11-06] MEDS ORDERED: LCTX PO (14:29)
[2016-11-18] MEDS ORDERED: CLIN300C2 PO (10:23)
[2016-11-23] MEDS ORDERED: BISA10SU7 PR (07:52)
[2016-11-23] MEDS ORDERED: DOCU100C31 PO (07:52)
[2016-11-23] MEDS ORDERED: SENN-65 PO (07:52)
[2016-11-23] MEDS ORDERED: MOML PO (07:52)
[2016-11-23] MEDS ORDERED: SODIENE PR (07:52)
[2016-11-23] MEDS ORDERED: GLGKIT SC (07:54)
[2016-11-23] MEDS ORDERED: [UNRECOGNIZED DRUG - CODE] PO (07:54)
== END 2016-05-25 16:19 | disposition home or self-care (01) ==
LOC: EDBD 11:30 → C.EDA 11:31
DX: F41.9 Anxiety disorder, unspecified (principal); K75.81 Nonalcoholic steatohepatitis (NASH); G89.4 Chronic pain syndrome; D69.6 Thrombocytopenia, unspecified; F32.9 Major depressive disorder, single episode, unspecified; E11.9 Type 2 diabetes mellitus without complications; K72.90 Hepatic failure, unspecified without coma; E78.5 Hyperlipidemia, unspecified; E03.9 Hypothyroidism, unspecified; K76.6 Portal hypertension; Z86.711 Personal history of pulmonary embolism; G40.909 Epilepsy, unspecified, not intractable, without status epilepticus; Z82.49 Family history of ischemic heart disease and other diseases of the circulatory system; Z80.9 Family history of malignant neoplasm, unspecified; Z79.4 Long term (current) use of insulin; Z79.899 Other long term (current) drug therapy

== ENCOUNTER 2016-05-27 00:50 | Emergency (ER) | payer OTHER ==
[~2016-05-27] VITALS: Ht 182.9 cm; Wt 79.0 kg
[2016-05-27 00:53] VITALS: TEMP 36.9; Ht 182.9 cm; Wt 79.0 kg
--- NOTE | 2016-05-27 01:32 | EMERGENCY ROOM VISIT NOTE ---
History Report prepared by Alla: Jacinta Christopher Under the Supervision of: Dr. Kamila Escudero D.O. First contact with patient: 00:52 Chief Complaint: CHEST PAIN Stated Complaint: CHEST PAIN Nursing Triage Summary: L sided chest and choulder pain, hand numbness; see triage note History of Present Illness The patient is a 61 year old male who presents to the Emergency Room with complaints of constant left sided chest pain beginning just ELECT EQUIP MAINT ENG. The patient states that he passed out tonight and fell onto the floor. He reports that he called the ambulance and they found him passed out at the kitchen table after a second episode of syncope. He notes that he fell tonight before bed. The patient reports that he was laying on the couch watching TV and does not know what happened but he woke up on the other side of the coffee table and got to the kitchen table but does not remember getting there. He complains of nausea that he took Zofran for tonight, vomiting, arm pain feeling like a "tooth ache" that began after the first time he lost consciousness, left shoulder pain, trouble forming words starting today, and left hand numbness beginning after the first fall. The patient states that he had soup and peanut butter and jelly for dinner tonight. He notes that he does not want to be in a group home and his sister in-law has been checking in on him while his roommate is gone. Source of History: patient Onset: just ELECT EQUIP MAINT ENG Position: chest (left) Timing: constant Associated Symptoms: + LOC, + nausea, + numbness, + vomiting Note: He complains of arm pain feeling like a "tooth ache" that began after the first time he lost consciousness, left shoulder pain, trouble forming words starting today, and left hand numbness beginning after the first fall. Review of Systems See HPI for pertinent positives & negatives. A total of 10 systems reviewed and were otherwise negative. 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 Surgical Problems: (1) H/O esophagogastroduodenoscopy (2) H/O knee surgery (3) S/P cervical spinal fusion (4) S/P IVC filter (5) S/P lumbar fusion (6) S/P T&A (status post tonsillectomy and adenoidectomy) Family History FH: CAD (coronary artery disease) FATHER FH: breast cancer MOTHER Social History Smoking Status: Never Smoker Alcohol Use: none Drug Use: none Marital Status: single Housing Status: lives with roommate Occupation Status: retired Current/Historical Medications Scheduled Escitalopram (Lexapro), 10 MG PO DAILY Ferrous Sulfate (Kp Ferrous Sulfate), 325 MG PO BID Furosemide (Lasix), 20 MG PO BID Hydromorphone Hcl (Dilaudid), 4 MG PO Q8 Insulin Aspart (Novolog Penfill), SQ TIDM Insulin Aspart (Novolog), 10 UNITS SQ TIDM Insulin Glargine (Lantus), 32 UNITS SC HS Lactulose (Chronulac), 20 GM PO TID Levetiractam (Levetiracetam), 500 MG PO AMHS Levothyroxine Sodium (Synthroid), 75 MCG PO DAILY Magnesium Oxide (Mag-Ox), 400 MG PO BID Pantoprazole (Protonix), 40 MG PO BID Pregabalin (Lyrica), 75 MG PO TID Propranolol (Inderal), 10 MG PO BID Pyridoxine Hcl (Vitamin B-6), 25 MG PO HS Rifaximin (Xifaxan), 550 MG PO AMHS Spironolactone (Aldactone), 1 TAB PO DAILY Scheduled PRN Diphenhydramine Hcl (Sleep) (Diphenhydramine Hcl), 25 MG PO BID PRN for Itching Ondasetron Odt (Zofran Odt), 4 MG SL Q6H PRN for Nausea or Vomiting Triamcinolone Acet (Aristocort 0.1%), 1 APPL EXT BID PRN for dermatitis Allergies Coded Allergies: Acetaminophen (Verified Allergy, Severe, ESLD (PORTILLO). on Liver transplant list. Cannot have APAP., 05/27/16) NSAIDs (Verified Allergy, Severe, DUE TO LIVER DISEAS, 05/27/16) Penicillins (Verified Allergy, Severe, JOINT SWELLING AND FEVER, 05/27/16) Levofloxacin (Verified Allergy, Mild, RASH, 05/27/16) pt developed erythema at site of IV injection with itching Vancomycin (Verified Allergy, Mild, HIVES, 05/27/16) HIVES Tramadol (Verified Allergy, Unknown, NOT TO TAKE WITH KEPPRA DUE TO SEIZURE RISK, 05/27/16) Physical Exam Vital Signs Date Time Temp Pulse Resp B/P Pulse Ox O2 Delivery O2 Flow Rate FiO2 05/27/16 05:08 73 18 123/69 95 05/27/16 03:39 73 18 107/63 99 72 109/67 75 108/69 05/27/16 03:23 108 05/27/16 02:22 72 18 131/75 05/27/16 01:01 71 05/27/16 01:01 100 Room Air 05/27/16 00:53 36.9 73 24 126/68 100 Room Air Physical Exam HEENT: Head - normocephalic and atraumatic Pupils are equal, round, and reactive to light. Extraocular eye muscles are intact, and sclera are anicteric. Nose - moist nasal mucosa without discharge. Mouth - moist buccal mucosa. Oropharynx is nonerythematous and there is no tonsillar exudate or edema noted. Neck: Supple; no JVD, nuchal rigidity, cervical lymphadenopathy. Heart: Regular rate and rhythm. There is a normal S1 and S2 with no murmurs, clicks, or gallops appreciated. Lungs: Clear to auscultation bilaterally with no wheezes, rales, or rhonchi. Abdomen: Soft, completely nontender, nondistended, with good bowel sounds. There are no palpable pulsatile masses or hepatosplenomegaly. There is no guarding, rigidity, or rebound noted. Extremities: No evidence of cyanosis, clubbing. There are easily palpable peripheral pulses. Pain with abduction of the left shoulder but still has full ROM. 1+ edema in legs. Skin: warm and dry with good turgor and no rashes. Medical Decision & Procedures ER Provider Diagnostic Interpretation: X-ray results as stated below per interpretation by me: Chest X-Ray: Unremarkable, no cardiomegaly, no significant pulmonary pathology. Shoulder X-Ray: No shoulder separation, no dislocation, no fracture. Laboratory Results 05/27/16 01:28 Red Blood Count 4.05, Mean Corpuscular Volume 79.5, Mean Corpuscular Hemoglobin 25.4, Mean Corpuscular Hemoglobin Concent 32.0, Neutrophils (%) (Auto) 70.6, Lymphocytes (%) (Auto) 12.2, Monocytes (%) (Auto) 12.7, Eosinophils (%) (Auto) 3.8, Basophils (%) (Auto) 0.5, Neutrophils # (Auto) 4.44, Lymphocytes # (Auto) 0.77, Monocytes # (Auto) 0.80, Eosinophils # (Auto) 0.24, Basophils # (Auto) 0.03 05/27/16 01:28 Test 05/27/16 01:28 05/27/16 03:15 05/27/16 03:25 White Blood Count 6.29 K/uL (4.8-10.8) Red Blood Count 4.05 M/uL (4.7-6.1) Hemoglobin 10.3 g/dL (14.0-18.0) Hematocrit 32.2 % (42-52) Mean Corpuscular Volume 79.5 fL (80-100) Mean Corpuscular Hemoglobin 25.4 pg (25-34) Mean Corpuscular Hemoglobin Concent 32.0 g/dl (32-36) Platelet Count 64 K/uL (130-400) Neutrophils (%) (Auto) 70.6 % Lymphocytes (%) (Auto) 12.2 % Monocytes (%) (Auto) 12.7 % Eosinophils (%) (Auto) 3.8 % Basophils (%) (Auto) 0.5 % Neutrophils # (Auto) 4.44 K/uL (1.4-6.5) Lymphocytes # (Auto) 0.77 K/uL (1.2-3.4) Monocytes # (Auto) 0.80 K/uL (0.11-0.59) Eosinophils # (Auto) 0.24 K/uL (0-0.5) Basophils # (Auto) 0.03 K/uL (0-0.2) RDW Standard Deviation 69.4 fL (36.4-46.3) RDW Coefficient of Variation 24.1 % (11.5-14.5) Immature Granulocyte % (Auto) 0.2 % Immature Granulocyte # (Auto) 0.01 K/uL (0.00-0.02) Platelet Estimate DECREASED Anisocytosis PRESENT Tear Drop Cells 1+ Anion Gap 5.0 mmol/L (3-11) Est Creatinine Clear Calc Drug Dose 84.1 ml/min Estimated GFR () 93.1 Estimated GFR (Non- 80.3 BUN/Creatinine Ratio 16.4 (10-20) Calcium Level 8.2 mg/dl (8.5-10.1) Total Creatine Kinase 83 U/L (39-308) Creatine Kinase MB 3.5 ng/ml (0.5-3.6) Creatine Kinase MB Ratio 4.2 (0-3.0) Troponin I < 0.015 ng/ml (0-0.045) Urine Color YELLOW Urine Appearance CLEAR (CLEAR) Urine pH 5.5 (4.5-7.5) Urine Specific [place] 1.028 (1.000-1.030) Urine Protein NEG (NEG) Urine Glucose (UA) 3+ (NEG) Urine Ketones NEG (NEG) Urine Occult Blood NEG (NEG) Urine Nitrite NEG (NEG) Urine Bilirubin NEG (NEG) Urine Urobilinogen NEG (NEG) Urine Leukocyte Esterase NEG (NEG) Total Bilirubin 1.0 mg/dl (0.2-1) Direct Bilirubin 0.4 mg/dl (0-0.2) Aspartate Amino Transf (AST/SGOT) 30 U/L (15-37) Alanine Aminotransferase (ALT/SGPT) 29 U/L (12-78) Alkaline Phosphatase 101 U/L (45-117) Ammonia 35.0 umol/L (11-32) Total Protein 5.7 gm/dl (6.4-8.2) Albumin 3.0 gm/dl (3.4-5.0) Laboratory results per my review. Medications Administered Medications (Trade) Dose Ordered Sig/Ryan Route Start Time Stop Time Status Last Admin Dose Admin Nitroglycerin (Nitrostat Tab) 0.4 mg Q5M STAT SL 05/27/16 02:17 05/27/16 02:18 DC 05/27/16 02:23 0.4 MG Hydromorphone HCl (Dilaudid Inj) 1 mg NOW STAT IV 05/27/16 04:23 05/27/16 04:25 DC 05/27/16 04:32 1 MG Ondansetron HCl (Zofran Inj) 4 mg NOW STAT IV 05/27/16 04:29 05/27/16 04:30 DC 05/27/16 04:31 4 MG Procedure 0217: Nitroglycerin 0.4mg SL. 0423: Dilaudid Inj 1mg IV. 0429: Zofran Inj 4mg IV. ECG Indication: chest pain Rate (beats per minute): 71 Rhythm: normal sinus Findings: no acute ischemic change, no ectopy ED Course 0052: Past medical records reviewed. The patient was evaluated in room C6. A complete history and physical exam was performed. A twelve-lead EKG was obtained as described above. Labs were drawn as above. 0114: The patient had a CT of the brain on 05/25 that was unremarkable. 0214: I reevaluated the patient. He is complaining of persistent arm pain and is asking for something for pain. 0217: Nitroglycerin 0.4mg SL. 035 the patient got no relief with the nitroglycerin. He had orthostatic vital signs which were unremarkable. 0423: Dilaudid Inj 1mg IV. 0429: Zofran Inj 4mg IV. 0446: I reevaluated the patient. His orthostatic vitals are fine. 0504: Upon reevaluation, the patient is doing well. I discussed findings and results with the patient. He verbalized agreement of the treatment plan. The patient was discharged home. Medical Decision The patient is a 61 year old male who presents to the ED with chest pain. Differential diagnosis includes cardiac ischemia, syncope, head injury, shoulder dislocation, shoulder separation. LABS: Normal WBC Hemoglobin 10.3 Hematocrit 32.2 Platelet Count 64 Total CK 83 CK-MB 3.5 Troponin < 0.015 Glucose 96 Normal Renal Function LFTs are normal except direct bilirubin was 0.2 Ammonia level is 35 This patient has frequent visits to the emergency department with complications from Portillo, chest pain, anxiety, and abdominal pain. The patient describes falling to the ground possibly from syncope. He describes having some left arm pain when he awoke on the floor. There was some concern that this could be a sign of cardiac ischemia. However, EKG and cardiac enzymes were negative. I was also concerned about the possibility of trauma as the patient believes that he fell on his left shoulder. X-ray of the shoulder was negative. The patient's ammonia level was not elevated. In fact, his LFTs were better than I've seen him in the past. I spent a great of time talking to the patient about these episodes of falling and the dangers of them. I suggested that the patient move into an assisted living facility as he has had multiple recent visits. He declined wanting to do this and states that he will go home and his roommate will return home this week. I've asked the patient to follow up with his PCP on Sunday. He is scheduled to have a TIPS procedure in [place] in July. Impression Primary Impression: Fall Additional Impression: Left arm pain Scribe Attestation The scribe's documentation has been prepared under my direction and personally reviewed by me in its entirety. I confirm that the note above accurately reflects all work, treatment, procedures, and medical decision making performed by me. Departure Information Dispostion Home / Self-Care Referrals Chacha Munoz D.O. (PCP) Forms HOME CARE DOCUMENTATION FORM, IMPORTANT VISIT INFORMATION Patient Instructions My [facility] Additional Instructions Rest. Move slowly to avoid falling. Eat a well-blanced diet and take plenty of clear liquids Follow up on Sunday with your PCP for a recheck. Problem Qualifiers
[2016-05-27 02:03] LABS: BLOOD UREA NITROGEN 16 mg/dl (7-18); BUN/CREATININE RATIO 16.4 (10-20); CALCIUM 8.2 mg/dl (8.5-10.1); CARBON DIOXIDE 30 mmol/L (21-32); CHLORIDE 106 mmol/L (98-107); GLUCOSE 96 mg/dl (70-99); POTASSIUM 3.7 mmol/L (3.5-5.1); SODIUM 141 mmol/L (136-145)
[2016-05-27 02:06] LABS: HEMATOCRIT 32.2 % (42-52); MEAN CELL VOLUME 79.5 fL (80-100); MEAN CORPUSCULAR HEMOGLOBIN 25.4 pg (25-34); RED BLOOD COUNT 4.05 M/uL (4.7-6.1); WHITE BLOOD COUNT 6.29 K/uL (4.8-10.8)
[2016-05-27 02:07] LABS: CKMB/CK RATIO 4.2 (0-3.0)
[2016-05-27 02:08] LABS: PLATELET COUNT 64 K/uL (130-400)
[2016-05-27 02:09] LABS: ANISOCYTOSIS PRESENT; BASO % 0.5 %; BASO ABS # 0.03 K/uL (0-0.2); COMPLETE YES; EOS % 3.8 %; IG% 0.2 %; LYMPH % 12.2 %; LYMPH ABS # 0.77 K/uL (1.2-3.4); MONO % 12.7 %; NEUT % 70.6 %; PLT ESTIMATE DECREASED; TEAR DROP CELLS 1+
[2016-05-27] MEDS ORDERED: NITROGLYCERIN 0.4 MG SL PER TAB CHARGE SL STA (02:17)
[2016-05-27 03:25] LABS: URINE APPEARANCE CLEAR (CLEAR); URINE BILIRUBIN NEG (NEG); URINE COLOR YELLOW; URINE NITRITE NEG (NEG); URINE PH 5.5 (4.5-7.5); URINE SPECIFIC GRAVITY 1.028 (1.000-1.030); UROBILINOGEN NEG (NEG)
[2016-05-27 03:27] LABS: MANUAL MICROSCOPIC REQUIRED? NO; REVIEW REQ? NO
[2016-05-27] MEDS ORDERED: HYDROmorphone INJ 1 MG/ML SYR IV STA (04:23)
[2016-05-27] MEDS ORDERED: ONDANSETRON INJ 2 MG/ML 2 ML VIAL IV STA (04:29)
[2016-05-27 05:08] VITALS: BP 123/69; PULSE 73; O2SAT 95
--- NOTE | 2016-05-27 07:03 | DIAGNOSTIC IMAGING REPORT ---
CHEST 2 VIEWS ROUTINE CLINICAL HISTORY: left chest pain TRAUMA COMPARISON STUDY: 05/18/2016 FINDINGS: The cardiac and mediastinal contours remain stable. There are persistent linear left basilar opacities, likely atelectatic. There is no acute lobar consolidation. There is no failure. There are no pleural effusions. There are postsurgical changes present within the cervical spine.[ There is no pneumothorax. IMPRESSION: Stable left basilar opacities, likely atelectatic. Electronically signed by: Pawan Garner M.D. 05/27/2016 7:01 AM Dictated Date/Time: 05/27/2016 7:00 AM
--- NOTE | 2016-05-27 07:04 | DIAGNOSTIC IMAGING REPORT ---
LEFT SHOULDER MIN 2 VIEWS ROUTINE CLINICAL HISTORY: Left shoulder pain. Trauma. COMPARISON: None. DISCUSSION: There are postsurgical changes present within the cervical spine. No fractures or dislocations of the left shoulder are visualized. There are no visible periarticular calcifications. IMPRESSION: No acute fractures or dislocations identified. Electronically signed by: Pawan Garner M.D. 05/27/2016 7:02 AM Dictated Date/Time: 05/27/2016 7:01 AM
[2016-07-01] MEDS ORDERED: MAGN400T5 PO (01:36)
[2016-07-01] MEDS ORDERED: DIPH50TA10 PO (02:00)
[2016-07-01] MEDS ORDERED: TRMCR130WC EXT (03:58)
[2016-07-01] MEDS ORDERED: LACT10SO17 PO (04:04)
[2016-07-01] MEDS ORDERED: PYRI25TA9 PO (04:52)
[2016-07-01] MEDS ORDERED: PROP10TA7 PO (04:52)
[2016-07-01] MEDS ORDERED: FURO-85 PO (05:55)
[2016-07-01] MEDS ORDERED: ONDA4TAB10 SL (12:02)
[2016-07-01] MEDS ORDERED: LEVO75TA PO (12:02)
[2016-07-01] MEDS ORDERED: RIFA550T2 PO (13:45)
[2016-07-01] MEDS ORDERED: FERR1TAB13 PO (14:58)
[2016-07-01] MEDS ORDERED: INSDGI SC (16:08)
[2016-07-01] MEDS ORDERED: LEVE500T PO (16:08)
[2016-08-22] MEDS ORDERED: MRLP17 PO (09:03)
[2016-08-22] MEDS ORDERED: INSDGI SC (09:03)
[2016-08-29] MEDS ORDERED: INSDGI SC (12:27)
[2016-08-29] MEDS ORDERED: POLY335019 PO (12:27)
[2016-09-18] MEDS ORDERED: DIPH25CA5 PO (10:22)
[2016-10-28] MEDS ORDERED: XFX550 PO (14:18)
[2016-11-06] MEDS ORDERED: LCTX PO (14:29)
[2016-11-06] MEDS ORDERED: CLIN300C2 PO (14:29)
[2016-11-18] MEDS ORDERED: CLIN300C2 PO (10:23)
[2016-11-23] MEDS ORDERED: DOCU100C31 PO (07:52)
[2016-11-23] MEDS ORDERED: BISA10SU7 PR (07:52)
[2016-11-23] MEDS ORDERED: SENN-65 PO (07:52)
[2016-11-23] MEDS ORDERED: SODIENE PR (07:52)
[2016-11-23] MEDS ORDERED: MOML PO (07:52)
[2016-11-23] MEDS ORDERED: [UNRECOGNIZED DRUG - CODE] PO (07:54)
[2016-11-23] MEDS ORDERED: GLGKIT SC (07:54)
== END 2016-05-27 05:09 | disposition still patient (30) ==
LOC: EDBD 00:50 → C.EDC 00:51 → C.EDB 05:09
DX: M79.602 Pain in left arm (principal); W19.XXXA Unspecified fall, initial encounter; Y92.019 Unspecified place in single-family (private) house as the place of occurrence of the external cause; K75.81 Nonalcoholic steatohepatitis (NASH); F41.9 Anxiety disorder, unspecified; F32.9 Major depressive disorder, single episode, unspecified; E11.9 Type 2 diabetes mellitus without complications; N18.6 End stage renal disease; E78.5 Hyperlipidemia, unspecified; E03.9 Hypothyroidism, unspecified; K76.6 Portal hypertension; G40.909 Epilepsy, unspecified, not intractable, without status epilepticus; Z86.718 Personal history of other venous thrombosis and embolism; Z82.49 Family history of ischemic heart disease and other diseases of the circulatory system; Z80.9 Family history of malignant neoplasm, unspecified; Z79.4 Long term (current) use of insulin; Z79.899 Other long term (current) drug therapy

== ENCOUNTER 2016-06-07 18:11 | Observation (INO) | payer OTHER ==
[~2016-06-07] VITALS: Ht 182.9 cm; Wt 93.6 kg
[2016-06-07] MEDS ORDERED: ONDANSETRON INJ 2 MG/ML 2 ML VIAL IV PRN (18:30)
--- NOTE | 2016-06-07 18:41 | EMERGENCY ROOM VISIT NOTE ---
History Report prepared by Alla: Jennifer Johnson Under the Supervision of: Dr. Mateo Rainey M.D. First contact with patient: 18:22 Stated Complaint: ABD DISTENSION, LOWER BODY EDEMA History of Present Illness The patient is a 61 year old male who presents to the Emergency Room with complaints of worsening abdominal distension for the past couple of days. He reports swelling of his abdomen and legs bilaterally. He has diffuse pain in his abdomen and in his legs. The patient reports pain in his chest that radiates down his left arm that just started a couple of hours ago. He is short of breath. The patient has a personal history of BETANCOURT. He weighed himself this morning and weighed 206lbs. He states that he typically weighs between 165- 170lbs. He recently had a paracentesis and had 7L of fluid removed at that time. The patient was brought to the ED today by ambulance. He denies nausea, vomiting, and diarrhea. Source of History: patient Onset: a couple of days ago Position: abdomen Symptom Intensity: severe Quality: other (distention) Timing: worsening Associated Symptoms: + SOB, + chest pain, No diarrhea, No nausea, No vomiting Note: Pt notes pain and swelling to his bilateral lower extremities. Review of Systems All systems have been listed, reviewed, and are negative other than those previously mentioned. Please see Additional Medical History Sheet. 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 Surgical Problems: (1) H/O esophagogastroduodenoscopy (2) H/O knee surgery (3) S/P cervical spinal fusion (4) S/P IVC filter (5) S/P lumbar fusion (6) S/P T&A (status post tonsillectomy and adenoidectomy) Family History FH: CAD (coronary artery disease) FATHER FH: breast cancer MOTHER Social History Smoking Status: Never Smoker Alcohol Use: none Drug Use: none Marital Status: single Housing Status: lives with roommate Occupation Status: retired Current/Historical Medications Scheduled Escitalopram (Lexapro), 10 MG PO DAILY Ferrous Sulfate (Kp Ferrous Sulfate), 325 MG PO BID Furosemide (Lasix), 20 MG PO BID Hydromorphone Hcl (Dilaudid), 4 MG PO Q8 Insulin Aspart (Novolog Penfill), SQ TIDM Insulin Aspart (Novolog), 10 UNITS SQ TIDM Insulin Glargine (Lantus), 32 UNITS SC HS Lactulose (Chronulac), 20 GM PO TID Levetiractam (Levetiracetam), 500 MG PO AMHS Levothyroxine Sodium (Synthroid), 75 MCG PO DAILY Magnesium Oxide (Mag-Ox), 400 MG PO BID Pantoprazole (Protonix), 40 MG PO BID Pregabalin (Lyrica), 75 MG PO UD Propranolol (Inderal), 10 MG PO BID Pyridoxine Hcl (Vitamin B-6), 25 MG PO HS Rifaximin (Xifaxan), 550 MG PO AMHS Spironolactone (Aldactone), 1 TAB PO DAILY Scheduled PRN Diphenhydramine Hcl (Sleep) (Diphenhydramine Hcl), 25 MG PO BID PRN for Itching Ondasetron Odt (Zofran Odt), 4 MG SL Q6H PRN for Nausea or Vomiting Triamcinolone Acet (Aristocort 0.1%), 1 APPL EXT BID PRN for dermatitis Allergies Coded Allergies: Acetaminophen (Verified Allergy, Severe, ESLD (BETANCOURT). on Liver transplant list. Cannot have APAP., 06/07/16) NSAIDs (Verified Allergy, Severe, DUE TO LIVER DISEAS, 06/07/16) Penicillins (Verified Allergy, Severe, JOINT SWELLING AND FEVER, 06/07/16) Levofloxacin (Verified Allergy, Mild, RASH, 06/07/16) pt developed erythema at site of IV injection with itching Vancomycin (Verified Allergy, Mild, HIVES, 06/07/16) HIVES Tramadol (Verified Allergy, Unknown, NOT TO TAKE WITH KEPPRA DUE TO SEIZURE RISK, 06/07/16) Physical Exam Vital Signs Date Time Temp Pulse Resp B/P Pulse Ox O2 Delivery O2 Flow Rate FiO2 06/07/16 21:55 93 Room Air 06/07/16 21:48 71 16 128/83 93 Room Air 06/07/16 19:55 80 16 125/83 98 Room Air 06/07/16 18:52 97 Nasal Cannula 4.0 06/07/16 18:30 81 06/07/16 18:24 36.7 88 20 124/89 96 Room Air Physical Exam GENERAL: Patient awake, alert, oriented x 3. Patient follows commands. Patient does not appear toxic. Patient is adequately hydrated and well- nourished. SKIN: No erythema, pallor, cyanosis or rash HEENT: Normal head, pupils equal, reactive to light and accommodation. Ears normal. Oral cavity and posterior pharynx appear normal. Neck: Without adenopathy, no neck vein distention. LUNGS: Clear to auscultation. No wheezes, no rales, no rhonchi. HEART: No murmurs. No gallops. No rubs ABDOMEN: Umbilical hernia present. Severe ascites. EXTREMITIES: No signs of trauma. 3+ non-pitting pedal and pretibial edema extending up to his thighs. No calf or thigh tenderness. NEUROLOGIC: Cranial nerves II-XII within normal limits. No gross motor sensory function deficits. Medical Decision & Procedures ER Provider Diagnostic Interpretation: Radiology results as stated below per my review and radiologist interpretation: SINGLE VIEW CHEST CLINICAL HISTORY: Cirrhosis and ascites. FINDINGS: An AP, portable, upright chest radiograph is compared to study dated 05/27/2016 and correlated with chest CT dated 04/29/2016. The examination is degraded by portable technique and patient rotation. The cardiomediastinal silhouette is unremarkable. Airspace opacities are present at the left lung base. The right lung appears clear. No large pleural effusion or pneumothorax is seen. The skeletal structures are osteopenic. The bony thorax is grossly intact. Fusion hardware is partially imaged in the lower cervical spine. IMPRESSION: There are increasing airspace opacities at the left lung base. This could represent atelectasis versus a developing infectious/inflammatory pneumonitis. Clinical correlation will be required. Electronically signed by: Leonardo De La Fuente M.D. 06/07/2016 6:49 PM Dictated Date/Time: 06/07/2016 6:47 PM Laboratory Results 06/07/16 19:49 Red Blood Count 4.03, Mean Corpuscular Volume 81.9, Mean Corpuscular Hemoglobin 26.1, Mean Corpuscular Hemoglobin Concent 31.8, Neutrophils (%) (Auto) 71.0, Lymphocytes (%) (Auto) 8.8, Monocytes (%) (Auto) 14.9, Eosinophils (%) (Auto) 4.6, Basophils (%) (Auto) 0.6, Neutrophils # (Auto) 6.30, Lymphocytes # (Auto) 0.78, Monocytes # (Auto) 1.32, Eosinophils # (Auto) 0.41, Basophils # (Auto) 0.05 06/07/16 19:49 Test 06/07/16 19:49 White Blood Count 8.87 K/uL (4.8-10.8) Red Blood Count 4.03 M/uL (4.7-6.1) Hemoglobin 10.5 g/dL (14.0-18.0) Hematocrit 33.0 % (42-52) Mean Corpuscular Volume 81.9 fL (80-100) Mean Corpuscular Hemoglobin 26.1 pg (25-34) Mean Corpuscular Hemoglobin Concent 31.8 g/dl (32-36) Platelet Count 107 K/uL (130-400) Neutrophils (%) (Auto) 71.0 % Lymphocytes (%) (Auto) 8.8 % Monocytes (%) (Auto) 14.9 % Eosinophils (%) (Auto) 4.6 % Basophils (%) (Auto) 0.6 % Neutrophils # (Auto) 6.30 K/uL (1.4-6.5) Lymphocytes # (Auto) 0.78 K/uL (1.2-3.4) Monocytes # (Auto) 1.32 K/uL (0.11-0.59) Eosinophils # (Auto) 0.41 K/uL (0-0.5) Basophils # (Auto) 0.05 K/uL (0-0.2) RDW Standard Deviation 66.4 fL (36.4-46.3) RDW Coefficient of Variation 22.2 % (11.5-14.5) Immature Granulocyte % (Auto) 0.1 % Immature Granulocyte # (Auto) 0.01 K/uL (0.00-0.02) Platelet Estimate DECREASED Polychromasia 1+ Poikilocytosis PRESENT Anisocytosis PRESENT Anion Gap 4.0 mmol/L (3-11) Est Creatinine Clear Calc Drug Dose 82.7 ml/min Estimated GFR () 82.9 Estimated GFR (Non- 71.6 BUN/Creatinine Ratio 11.6 (10-20) Calcium Level 8.3 mg/dl (8.5-10.1) Magnesium Level 1.7 mg/dl (1.8-2.4) Total Bilirubin 1.2 mg/dl (0.2-1) Direct Bilirubin 0.5 mg/dl (0-0.2) Aspartate Amino Transf (AST/SGOT) 31 U/L (15-37) Alanine Aminotransferase (ALT/SGPT) 25 U/L (12-78) Alkaline Phosphatase 138 U/L (45-117) Ammonia 54.0 umol/L (11-32) Troponin I < 0.015 ng/ml (0-0.045) Total Protein 6.0 gm/dl (6.4-8.2) Albumin 2.9 gm/dl (3.4-5.0) Laboratory results as stated above per my review. Medications Administered Medications (Trade) Dose Ordered Sig/Ryan Route Start Time Stop Time Status Last Admin Dose Admin Hydromorphone HCl (Dilaudid Inj) 1 mg Q1HWA PRN IV 06/07/16 18:30 06/07/16 22:02 DC 06/07/16 21:51 1 MG Ondansetron HCl (Zofran Inj) 4 mg PRN PRN IV 06/07/16 18:30 06/07/16 23:10 DC 06/07/16 19:50 4 MG ECG Indication: chest pain Rate (beats per minute): 82 Rhythm: normal sinus Findings: no acute ischemic change, no ectopy ED Course 1821: Past medical records reviewed. The patient was evaluated in room A3. A complete history and physical examination was performed. 1829: Zofran 4 mg IV - PRN, Dilaudid 1 mg IV - PRN 2151: I spoke with Dr. Yeager. We discussed the patients results and treatment plan. The patient will be evaluated by the [facility] for further management. 2158: I reassessed the patient at this time. He is doing well. I discussed the results and treatment plan with the patient. I answered all pertaining questions that he had. He expressed understanding and verbalized agreement. Medical Decision Differential diagnoses includes BETANCOURT, liver related problems including coagulopathy, elevated ammonia, liver failure, metabolic disorder. The patient has marked ascites. Multiple labs, EKG and imaging were obtained. Please see above. His ammonia is elevated. I believe the patient will require paracentesis for relief. The patient has required albumin infusion prior to paracentesis in the past. In light of that, the patient will require admission and prepped for the paracentesis. Consults Time Called: 2150 Consulting Physician: Dr. Yeager Returned Call: [address] Yeager. We discussed the patients results and treatment plan. The patient will be evaluated by the [facility] for further management. Impression Primary Impression: BETANCOURT (nonalcoholic steatohepatitis) Additional Impressions: Hyperammonemia Ascites Scribe Attestation The scribe's documentation has been prepared under my direction and personally reviewed by me in its entirety. I confirm that the note above accurately reflects all work, treatment, procedures, and medical decision making performed by me. Departure Information Dispostion Being Evaluated By Hospitalist Referrals Chacha Munoz D.O. (PCP) Problem Qualifiers Additional Impressions: Ascites Ascites type: other type Qualified Codes: R18.8 - Other ascites
--- NOTE | 2016-06-07 18:50 | DIAGNOSTIC IMAGING REPORT ---
SINGLE VIEW CHEST CLINICAL HISTORY: Cirrhosis and ascites. FINDINGS: An AP, portable, upright chest radiograph is compared to study dated 05/27/2016 and correlated with chest CT dated 04/29/2016. The examination is degraded by portable technique and patient rotation. The cardiomediastinal silhouette is unremarkable. Airspace opacities are present at the left lung base. The right lung appears clear. No large pleural effusion or pneumothorax is seen. The skeletal structures are osteopenic. The bony thorax is grossly intact. Fusion hardware is partially imaged in the lower cervical spine. IMPRESSION: There are increasing airspace opacities at the left lung base. This could represent atelectasis versus a developing infectious/inflammatory pneumonitis. Clinical correlation will be required. Electronically signed by: Leonardo De La Fuente M.D. 06/07/2016 6:49 PM Dictated Date/Time: 06/07/2016 6:47 PM
[2016-06-07] MEDS: HYDROmorphone INJ 1 MG/ML SYR IV PRN ×2 (19:49→21:51)
[2016-06-07 20:07] LABS: MEAN CORPUSCULAR HGB CONC 31.8 g/dl (32-36)
[2016-06-07 20:25] LABS: ALT/SGPT 25 U/L (12-78); AST/SGOT 31 U/L (15-37); BLOOD UREA NITROGEN 13 mg/dl (7-18); BUN/CREATININE RATIO 11.6 (10-20); CALCIUM 8.3 mg/dl (8.5-10.1); CARBON DIOXIDE 29 mmol/L (21-32); CHLORIDE 106 mmol/L (98-107); GLUCOSE 81 mg/dl (70-99); POTASSIUM 4.6 mmol/L (3.5-5.1); SODIUM 139 mmol/L (136-145)
[2016-06-07 20:27] LABS: MEAN CELL VOLUME 81.9 fL (80-100); MEAN CORPUSCULAR HEMOGLOBIN 26.1 pg (25-34); RED BLOOD COUNT 4.03 M/uL (4.7-6.1); WHITE BLOOD COUNT 8.87 K/uL (4.8-10.8)
[2016-06-07 20:30] LABS: ALKALINE PHOSPHATASE 138 U/L (45-117)
[2016-06-07 20:44] LABS: ANISOCYTOSIS PRESENT; BASO % 0.6 %; BASO ABS # 0.05 K/uL (0-0.2); COMPLETE YES; EOS % 4.6 %; IG% 0.1 %; LYMPH % 8.8 %; LYMPH ABS # 0.78 K/uL (1.2-3.4); MONO % 14.9 %; PLATELET COUNT 107 K/uL (130-400); PLT ESTIMATE DECREASED; POIKILOCYTOSIS PRESENT; POLYCHROMASIA 1+
[2016-06-07 21:55] VITALS: O2SAT 93; Ht 182.9 cm; Wt 93.6 kg
[2016-06-07 22:32] LABS: MAGNESIUM 1.7 mg/dl (1.8-2.4)
[2016-06-07] MEDS ORDERED: FUROSEMIDE INJ 40 MG in SYRINGE 0 ML IV STA (22:39)
[2016-06-07] MEDS ORDERED: FUROSEMIDE 40 MG/4 ML VIAL IV STA (22:42)
[2016-06-07] MEDS ORDERED: IV FLUIDS COMPLETED PRN (22:45)
[2016-06-07] MEDS ORDERED: LACTULOSE SYRUP 20 GM/30 ML UDC PO ONE (23:08)
[2016-06-07] MEDS ORDERED: RIFAXIMIN TAB 550 MG TAB PO ONE (23:08)
[2016-06-07] MEDS ORDERED: ACETAMINOPHEN 325 MG TAB PO PRN (23:15)
[2016-06-07] MEDS ORDERED: GLUCAGON FOR INJ 1 MG VIAL SQ PRN (23:15)
[2016-06-07] MEDS ORDERED: DEXTROSE 50% 50 ML SYR IV PRN (23:15)
[2016-06-07] MEDS ORDERED: GLUCOSE 10 TABS/TUBE PO PRN (23:15)
[2016-06-07] MEDS ORDERED: GLUCOSE 40% GEL 15 GM TUBE PO PRN (23:15)
[2016-06-07] MEDS ORDERED: MAGNESIUM SULFATE 1GM / D5W 1 GM in PREMIXED IN D5W 100 ML IV STA (23:31)
[2016-06-08] VITALS (11 sets, daily range): BP systolic 98–148; BP diastolic 51–88; PULSE 66–83; TEMP 36.5–36.9; O2SAT 95–98
[2016-06-08] MEDS: PREGABALIN 75 MG CAP PO SCH ×3 (00:15→20:49)
[2016-06-08] MEDS ORDERED: NALOXONE HCL 0.4 MG/1 ML VIAL/CARP ONE (00:52)
--- NOTE | 2016-06-08 01:39 | HISTORY & PHYSICAL EXAMINATION ---
DATE OF ADMISSION: 06/07/2016 PRIMARY CARE DOCTOR: Dr. Munoz Hx obtained from px and records. CHIEF COMPLAINT: Abdominal distention and lower extremity swelling. HISTORY OF PRESENT ILLNESS: Medical history is significant for cirrhosis secondary to non-alcoholic fatty liver disease, hypertension, chronic anemia (baseline with hemoglobin of 10), DM2 insulin requiring, history of seizure disorder, history of PE/DVT sp IVC filter placement. chronic pain on narcotics Recent confinement last month for recurrent ascites secondary to BETANCOURT status post paracentesis. Ascitic fluid was transudative. Since admission, the patient has had 2 ER visits for variety of issues. Few days history of increasing achy abdominal pain going to the chest and left arm with shortness of breath, dry cough sx. No fever. Some chills. Increased abdominal distention and katharine leg swelling. Patient claims to be compliant with fluid restriction and home meds. MEDICAL HISTORY: As above. SURGERIES: He has had back surgery, knee replacement and IVC filter placement HOME MEDICATIONS: Include; Protonix, Lyrica, vitamin B6, Inderal, Xifaxan, Aldactone, Lantus, Synthroid, lactulose, Keppra, mag ox, Zofran, diphenhydramine, ferrous sulfate, Lasix, NovoLog and Aristocort. ALLERGIES: TO TYLENOL, VANCOMYCIN, TRAMADOL, LEVOFLOXACIN, PENICILLIN AND NSAIDS. FAMILY HISTORY: Breast cancer and heart disease. PERSONAL AND SOCIAL HISTORY: Nonsmoker. No alcohol intake. Disabled. lives w a roommate REVIEW OF SYSTEMS: As per HPI, all other ROS negative. PHYSICAL EXAMINATION: VITAL SIGNS: Blood pressure was noted to be 124/80, pulse rate 88, RR 26, T 37 , O2 sats 92 on room air. GENERAL: Noted to be chronically ill, anxious and uncomfortable, in no respiratory distress. SKIN: Pallor. HEENT: partial alopecia, pale palpebral conjunctivae. Dry mucosa. NECK: No JVD, supple. CHEST: Decreased breath sounds. HEART: Regular rate and rhythm. ABDOMEN: Abdominal distention, nonspecific tenderness on light palpation. EXTREMITIES: Bilateral lower extremity edema, no tenderness. NEUROLOGIC: No gross focality. LABORATORIES: Hemoglobin 10, hematocrit 30, white cell count 8 platelets 107. Sodium 139, potassium 4.6, chloride 105, CO2 of 29, BUN 30, creatinine 1 glucose 80, ammonia 50s trop 0, elevated TB, DB hemoglobin A1c from May 2016 was 11.6. Chest x-ray showed atelectasis versus pneumonitis. ASSESSMENT: 1. Recurrent ascites chronic abdominal pain complaints hx cirrhosis 2 to NAFLD multiple admissions/ER visits possible noncompliance Rule out spontaneous bacterial peritonitis, no sepsis. Patient's ascitic fluid consistently of transudative nature since 2013. 2. Hypertension, stable. 3. DM2, insulin requiring suboptimal control as of recent HgA1c patient's blood sugar currently on the lower side 4. Chronic anemia, thrombocytopenia 2 to cirrhosis 5. hx PE/DVT status post IVC filter off anticoag 2 to bleeding risk 6. seizure disorder, stable on meds. 7. Possible drug seeking behavior. PLAN: Observation GMF Diuretic therapy. Judicious narcotic use. Diagnostic/therapeutic paracentesis in AM GI consult RE recurrent ascites. Basal insulin, ISS BG goal 140-180. Carb count coverage indicated for suboptimal blood sugar control. PT/OT eval DVT prophylaxis, SCDs. RE thrombocytopenia Full code. MTDD
[2016-06-08] MEDS ORDERED: HYDROmorphone HCL 2 MG TAB PO ONE (05:49)
[2016-06-08] MEDS: LEVOTHYROXINE 75 MCG TAB PO SCH (06:07)
[2016-06-08 06:34] LABS: MEAN CORPUSCULAR HGB CONC 32.3 g/dl (32-36)
[2016-06-08 06:42] LABS: INR 1.3 (0.9-1.1); PROTHROMBIN TIME (PATIENT) 14.4 SECONDS (9.0-12.0)
[2016-06-08 06:50] LABS: HEMATOCRIT 31.9 % (42-52); MEAN CELL VOLUME 81.6 fL (80-100); MEAN CORPUSCULAR HEMOGLOBIN 26.3 pg (25-34); RED BLOOD COUNT 3.91 M/uL (4.7-6.1); WHITE BLOOD COUNT 4.97 K/uL (4.8-10.8)
[2016-06-08 07:05] LABS: BUN/CREATININE RATIO 11.5 (10-20); CALCIUM 8.4 mg/dl (8.5-10.1); CREATININE 1.2 mg/dl (0.60-1.40); MAGNESIUM 1.9 mg/dl (1.8-2.4); POTASSIUM 4.6 mmol/L (3.5-5.1)
[2016-06-08 07:15] LABS: PLATELET COUNT 79 K/uL (130-400)
[2016-06-08 07:16] LABS: ANISOCYTOSIS PRESENT; BASO % 0.6 %; BASO ABS # 0.03 K/uL (0-0.2); COMPLETE YES; EOS % 4.2 %; GIANT PLATELETS 1+; HYPOCHROMIA PRESENT; IG% 0.2 %; LYMPH % 13.1 %; LYMPH ABS # 0.65 K/uL (1.2-3.4); MONO % 13.9 %; PLT ESTIMATE DECREASED; POIKILOCYTOSIS PRESENT
[2016-06-08] MEDS: PANTOprazole SOD 40 MG TAB PO SCH ×2 (08:18→20:50)
[2016-06-08] MEDS: RIFAXIMIN TAB 550 MG TAB PO SCH ×2 (08:19→20:49)
[2016-06-08] MEDS: ESCITALOPRAM OXALATE 10 MG TAB PO SCH (08:19)
[2016-06-08] MEDS: SPIRONOLACTONE 100 MG TAB PO SCH (08:19)
[2016-06-08] MEDS: LEVETIRACETAM 500 MG TAB PO SCH ×2 (08:20→20:49)
[2016-06-08] MEDS: FUROSEMIDE 20 MG TAB PO SCH ×2 (08:20→16:43)
[2016-06-08] MEDS: FERROUS SULFATE 325 MG TAB PO SCH ×2 (08:22→20:47)
[2016-06-08] MEDS: LACTULOSE SYRUP 20 GM/30 ML UDC PO SCH ×3 (08:23→20:47)
[2016-06-08] MEDS: PROPRANOLOL HCL 10 MG TAB PO SCH ×2 (08:23→20:48)
[2016-06-08] MEDS: ONDANSETRON INJ 2 MG/ML 2 ML VIAL IV PRN (08:24)
[2016-06-08] MEDS ORDERED: HYDROmorphone HCL 2 MG TAB PO SCH (09:00)
[2016-06-08] MEDS: INSULIN ASPART 100 UNITS/ML 3 ML PEN SC SCH ×4 (09:22→21:01)
[2016-06-08] MEDS: INSULIN GLARGINE SOLOSTAR 100 UNITS/ML 3 ML PEN SC SCH ×2 (09:22→21:02)
[2016-06-08] MEDS ORDERED: NURSING VERBAL MED ORDER ONE (09:45)
[2016-06-08] MEDS: ALBUMIN HUMAN 25% 12.5 GM/50 ML VIAL IV SCH ×4 (10:10→13:32)
--- NOTE | 2016-06-08 12:19 | DIAGNOSTIC IMAGING REPORT ---
PARACENTESIS UNDER ULTRASOUND GUIDANCE CLINICAL HISTORY: Abdominal ascites. PROCEDURE: The risks, benefits, and alternatives to the procedure were discussed with the patient who voiced understanding. Written informed consent was obtained. Following real-time ultrasound localization of a suitable pocket of fluid in the left lower quadrant, the abdomen was prepped and draped in the usual sterile fashion. The skin and soft tissues were anesthetized with 1% lidocaine. The sheathed paracentesis was inserted and approximately 8 liters of straw-colored ascitic fluid was removed by vacuum suction. The procedure was well tolerated and without immediate complication. The patient left the department in satisfactory condition. IMPRESSION: Successful ultrasound-guided paracentesis with removal of approximately 8 liters of ascitic fluid. Electronically signed by: Leonardo De La Fuente M.D. 06/08/2016 12:18 PM Dictated Date/Time: 06/08/2016 12:17 PM
[2016-06-08] MEDS: HYDROmorphone HCL 2 MG TAB PO PRN ×2 (12:34→20:52)
--- NOTE | 2016-06-08 14:36 | Gastrointestinal Consultation ---
Gastrointestinal Consultation Date of Consultation: June 08, 2016 Attending Physician: Ksenia Hanks Consulting Physician: Justin Crow Reason for Consultation: Recurrent ascites History of Present Illness Patient is a 61 year old male w hx of NAFLD cirrhosis well known to our service who presented last night to ED w c/o abd distension and bilateral LE swelling. He had been scheduled for outpt paracentesis on 06/02 though didn't have transportation thus missed this. He also had been scheduled to see Dr. Araya on 07/27 at [facility] [place], [place] to discuss possible TIPs eval. He admits it's hard to prepare himself low salt diet at home. He's eating "low sodium TV dinners". He is unsure of diuretics he's supposed to take. Reports should be on Lasix 20mg, but outpt med records showed Lasix to be 40mg BID, and Spironolactone 100mg BID. 2 admissions ago he was admitted for possible SBP though it's suspected his ascites fluid may have been a contaminated tap. Last admitted on 05/20/16-05/23/16 , paracentesis w 4L ascites removed on 05/22/16. No sign of SBP. Past Medical/Surgical History Medical Problems: (1) Abdominal pain Status: Acute (2) Abdominal pain Status: Acute (3) Abdominal pain Status: Acute (4) Acute hyperglycemia Status: Acute (5) Ambulatory dysfunction Status: Acute (6) Ambulatory dysfunction Status: Acute (7) Anasarca Status: Acute (8) Anemia Status: Acute (9) Anemia Status: Acute (10) Anemia Status: Acute (11) Ascites Status: Acute (12) Ascites Status: Acute (13) Ascites Status: Acute (14) Ascites Status: Acute (15) Ascites Status: Acute (16) Chest pain Status: Acute (17) Chronic liver failure Status: Acute (18) Chronic low back pain Status: Acute (19) Cirrhosis Status: Acute (20) Cirrhosis of liver Status: Acute (21) Contusion of left foot Status: Acute (22) Diarrhea Status: Acute (23) Diffuse abdominal pain Status: Acute (24) Diffuse abdominal pain Status: Acute (25) Dyspnea Status: Acute (26) Fall Status: Acute (27) Generalized weakness Status: Acute (28) Generalized weakness Status: Acute (29) HHNC (hyperglycemic hyperosmolar nonketotic coma) Status: Acute (30) Hyperammonemia Status: Acute (31) Hyperglycemia Status: Acute (32) Hyperglycemia Status: Acute (33) Hyperglycemia Status: Acute (34) Hypoglycemia Status: Acute (35) Hypoglycemia Status: Acute (36) Left arm pain Status: Acute (37) Muscle weakness Status: Acute (38) BETANCOURT (nonalcoholic steatohepatitis) Status: Chronic (39) Nausea, vomiting, and diarrhea Status: Acute (40) Thrombocytopenia Status: Acute (41) Weakness Status: Acute Past Medical History: See HPI above Also HTN, anemia, DM II, seizure, PE/DVT Past Surgical History: IVC filter placement Back surgery Knee replacement Family History FH: CAD (coronary artery disease) FATHER FH: breast cancer MOTHER Social History Smoking Status: Never Smoker Alcohol Use: none Drug Use: none Marital Status: single Housing Status: lives with roommate Occupation Status: retired Allergies Coded Allergies: Acetaminophen (Verified Allergy, Severe, ESLD (BETANCOURT). on Liver transplant list. Cannot have APAP., 06/07/16) NSAIDs (Verified Allergy, Severe, DUE TO LIVER DISEAS, 06/07/16) Penicillins (Verified Allergy, Severe, JOINT SWELLING AND FEVER, 06/07/16) Levofloxacin (Verified Allergy, Mild, RASH, 06/07/16) pt developed erythema at site of IV injection with itching Vancomycin (Verified Allergy, Mild, HIVES, 06/07/16) HIVES Tramadol (Verified Allergy, Unknown, NOT TO TAKE WITH KEPPRA DUE TO SEIZURE RISK, 06/07/16) Current Medications Home Meds and Scripts Medications Dose Route/Sig Max Daily Dose Days Date Category Dose Instructions Dilaudid (Hydromorphone Hcl) 4 Mg Tab 4 Mg PO Q8 2 05/23/16 Rx Diphenhydramine Hcl (Diphenhydramine Hcl (Sleep)) 50 Mg Tab 25 Mg PO BID PRN 30 05/20/16 Reported Novolog (Insulin Aspart) 100 Units/Ml Inj 10 Units SQ TIDM 05/15/16 Reported Kp Ferrous Sulfate (Ferrous Sulfate) 325 Mg Tab 325 Mg PO BID 04/27/16 Reported Lasix (Furosemide) 20 Mg Tab 20 Mg PO BID 04/09/16 Reported Chronulac (Lactulose) 10 Gm/15 Ml Syrp 20 Gm PO TID 03/27/16 Reported Aristocort 0.1% (Triamcinolone Acet) 90 Appln/30 Gm Cr 1 Appl EXT BID PRN 03/27/16 Reported Novolog Penfill (Insulin Aspart) 100 Unit/Ml Inj SQ TIDM 03/13/16 Reported via SSI Lantus (Insulin Glargine) 100 Unit/Ml Inj 32 Units SC HS 03/13/16 Reported Levetiracetam (Levetiractam) 500 Mg Tab 500 Mg PO AMHS 03/13/16 Reported Aldactone (Spironolactone) 100 Mg Tab 1 Tab PO DAILY 30 12/10/15 Reported Inderal (Propranolol HCl) 10 Mg Tab 10 Mg PO BID 06/04/15 Reported Vitamin B-6 (Pyridoxine Hcl) 25 Mg Tab 25 Mg PO HS 06/04/15 Reported Synthroid (Levothyroxine Sodium) 75 Mcg Tab 75 Mcg PO DAILY 05/07/15 Reported Lyrica (Pregabalin) 75 Mg Cap 75 Mg PO UD 05/07/15 Reported BID FOR 1 WEEK, THEN ONCE DAILY THEN STOP Zofran Odt (Ondansetron HCl) 4 Mg Tab 4 Mg SL Q6H PRN 05/07/15 Reported Lexapro (Escitalopram Oxalate) 10 Mg Tab 10 Mg PO DAILY 10/30/14 Reported Protonix (Pantoprazole) 40 Mg Tab 40 Mg PO BID 08/04/14 Reported Xifaxan (Rifaximin) 550 Mg Tab 550 Mg PO AMHS 05/20/13 Reported ONE AT BREAKFAST AND ONE AT SUPPER. Mag-Ox (Magnesium Oxide) 400 Mg Tab 400 Mg PO BID 09/29/11 Reported Review of Systems Constitutional: No chills, No fever Respiratory: No cough, No shortness of breath Cardiac: No chest pain, No edema Abdomen: + pain, + see HPI, No nausea, No vomiting Physical Exam Date Time Temp Pulse Resp B/P Pulse Ox O2 Delivery O2 Flow Rate FiO2 06/08/16 13:35 36.9 76 18 101/60 98 Room Air 06/08/16 12:25 36.9 66 18 108/59 98 Room Air 06/08/16 10:42 36.8 66 16 108/59 98 Room Air 06/08/16 10:10 36.9 68 16 107/65 96 Room Air 06/08/16 08:00 Room Air 06/08/16 07:30 36.8 83 18 113/73 95 Room Air 06/08/16 00:27 36.5 69 20 148/88 97 Room Air 06/08/16 00:00 Room Air 06/07/16 22:59 74 20 133/90 98 Room Air 06/07/16 21:55 93 Room Air 06/07/16 21:48 71 16 128/83 93 Room Air 06/07/16 19:55 80 16 125/83 98 Room Air 06/07/16 18:52 97 Nasal Cannula 4.0 06/07/16 18:30 81 06/07/16 18:24 36.7 88 20 124/89 96 Room Air General Appearance: WD/WN, no apparent distress, + mild distress Eyes: normal inspection, PERRL, EOMI Neck: supple, no JVD, trachea midline Respiratory/Chest: no respiratory distress, no accessory muscle use, + decreased breath sounds Cardiovascular: regular rate, rhythm, no gallop, no murmur Abdomen: + abnormal bowel sounds (hypoactive), + distended (tense w ascites), + tenderness (diffuse), + hernia (umbilical hernia reducible, non tender) Extremities: no pedal edema (+1 edema) Neurologic/Psych: alert, normal mood/affect, oriented x 3 Skin: normal color, no jaundice, no rash Laboratory Results Last 24 Hours Test 06/07/16 19:49 06/08/16 00:00 06/08/16 06:15 06/08/16 08:16 White Blood Count 8.87 K/uL 4.97 K/uL Red Blood Count 4.03 M/uL 3.91 M/uL Hemoglobin 10.5 g/dL 10.3 g/dL Hematocrit 33.0 % 31.9 % Mean Corpuscular Volume 81.9 fL 81.6 fL Mean Corpuscular Hemoglobin 26.1 pg 26.3 pg Mean Corpuscular Hemoglobin Concent 31.8 g/dl 32.3 g/dl Platelet Count 107 K/uL 79 K/uL Neutrophils (%) (Auto) 71.0 % 68.0 % Lymphocytes (%) (Auto) 8.8 % 13.1 % Monocytes (%) (Auto) 14.9 % 13.9 % Eosinophils (%) (Auto) 4.6 % 4.2 % Basophils (%) (Auto) 0.6 % 0.6 % Neutrophils # (Auto) 6.30 K/uL 3.38 K/uL Lymphocytes # (Auto) 0.78 K/uL 0.65 K/uL Monocytes # (Auto) 1.32 K/uL 0.69 K/uL Eosinophils # (Auto) 0.41 K/uL 0.21 K/uL Basophils # (Auto) 0.05 K/uL 0.03 K/uL RDW Standard Deviation 66.4 fL 66.4 fL RDW Coefficient of Variation 22.2 % 22.2 % Immature Granulocyte % (Auto) 0.1 % 0.2 % Immature Granulocyte # (Auto) 0.01 K/uL 0.01 K/uL Platelet Estimate DECREASED DECREASED Polychromasia 1+ Poikilocytosis PRESENT PRESENT Anisocytosis PRESENT PRESENT Sodium Level 139 mmol/L 139 mmol/L Potassium Level 4.6 mmol/L 4.6 mmol/L Chloride Level 106 mmol/L 105 mmol/L Carbon Dioxide Level 29 mmol/L 29 mmol/L Anion Gap 4.0 mmol/L 5.0 mmol/L Blood Urea Nitrogen 13 mg/dl 14 mg/dl Creatinine 1.10 mg/dl 1.20 mg/dl Est Creatinine Clear Calc Drug Dose 82.7 ml/min 75.8 ml/min Estimated GFR () 82.9 74.7 Estimated GFR (Non- 71.6 64.4 BUN/Creatinine Ratio 11.6 11.5 Random Glucose 81 mg/dl 213 mg/dl Calcium Level 8.3 mg/dl 8.4 mg/dl Magnesium Level 1.7 mg/dl 1.9 mg/dl Total Bilirubin 1.2 mg/dl Direct Bilirubin 0.5 mg/dl Aspartate Amino Transf (AST/SGOT) 31 U/L Alanine Aminotransferase (ALT/SGPT) 25 U/L Alkaline Phosphatase 138 U/L Ammonia 54.0 umol/L 38.0 umol/L Troponin I < 0.015 ng/ml Total Protein 6.0 gm/dl Albumin 2.9 gm/dl Peritoneal Fluid Total Protein 1.4 g/dl Peritoneal Fluid Albumin 0.8 g/dl Peritoneal Fluid LDH 48 IU Peritoneal Fluid Glucose 236 mg/dl Giant Platelets 1+ Hypochromasia PRESENT Prothrombin Time 14.4 SECONDS Prothromb Time International Ratio 1.3 Bedside Glucose 217 mg/dl Impression Patient is a 61 year old male w NAFLD cirrhosis admitted for ascites and edema management. Suspect likely recurrence of fluid overload related to non compliance w meds and diet. Plan - U/S guided paracentesis w cell ct and fluid analysis to r/o SBP. - Diabetic 2g Na diet - Continue Lasix 40mg/Spironolactone 100mg daily, can titrate for ascites edema control. - Stressed importance for diet/med compliance. - If paracentesis w/o signs of SBP can DC home later today or tomorrow. I have seen, examined, and agree with the plan as outlined above by MAYI Oakley -Concern for non-adherence given that he did not know his diuretic dose -No other signs of decompensation
--- NOTE | 2016-06-08 14:50 | Progress Note ---
Internal Med Progress Note Date of Service: June 08, 2016. Provider Documentation: SUBJECTIVE: The patient was seen and examined Admitted with Abdominal swelling and pain Still has the pain Will have Paracentesis today OBJECTIVE: Vital Signs-as noted below Exam: General-Moderate distress at rest Eyes-normal ENT-normal Neck-supple Lungs-clear to auscultate bilaterally Heart-regular,no murmur Abdomen-Distended,tense,tender ,bowel sound sluggish Extremities-2+ edema bilaterally [id number] weak Lab data as noted below. ASSESSMENT & PLAN: Recurrent ascites chronic abdominal pain complaints hx cirrhosis 2 to NAFLD multiple admissions/ER visits possible noncompliance Patient's ascitic fluid consistently of transudative nature since 2013. No signs or symptoms suggestive of SBP now-No antibiotic Will have paracentesis today Hypertension, stable. DM2, insulin requiring suboptimal control as of recent HgA1c patient's blood sugar currently on the lower side Basal insulin, ISS BG goal 140-180. Carb count coverage indicated for suboptimal blood sugar control. Chronic anemia, thrombocytopenia 2 to cirrhosis H/O PE/DVT status post IVC filter off anticoag 2 to bleeding risk Seizure disorder, stable on meds. Possible drug seeking behavior. PT/OT eval DVT prophylaxis, SCDs. RE thrombocytopenia Full code. Likely home soon Vital Signs: Date Time Temp Pulse Resp B/P Pulse Ox O2 Delivery O2 Flow Rate FiO2 06/08/16 14:35 36.8 73 16 101/57 98 Room Air 06/08/16 14:25 36.9 68 18 101/62 98 Room Air 06/08/16 13:35 36.9 76 18 101/60 98 Room Air 06/08/16 12:25 36.9 66 18 108/59 98 Room Air 06/08/16 10:42 36.8 66 16 108/59 98 Room Air 06/08/16 10:10 36.9 68 16 107/65 96 Room Air 06/08/16 08:00 Room Air 06/08/16 07:30 36.8 83 18 113/73 95 Room Air 06/08/16 00:27 36.5 69 20 148/88 97 Room Air 06/08/16 00:00 Room Air 06/07/16 22:59 74 20 133/90 98 Room Air 06/07/16 21:55 93 Room Air 06/07/16 21:48 71 16 128/83 93 Room Air 06/07/16 19:55 80 16 125/83 98 Room Air 06/07/16 18:52 97 Nasal Cannula 4.0 06/07/16 18:30 81 06/07/16 18:24 36.7 88 20 124/89 96 Room Air Lab Results: Results Past 24 Hours Test 06/07/16 19:49 06/08/16 00:00 06/08/16 06:15 06/08/16 08:16 Range/Units White Blood Count 8.87 4.97 4.8-10.8 K/uL Red Blood Count 4.03 3.91 4.7-6.1 M/uL Hemoglobin 10.5 10.3 14.0-18.0 g/dL Hematocrit 33.0 31.9 42-52 % Mean Corpuscular Volume 81.9 81.6 80-100 fL Mean Corpuscular Hemoglobin 26.1 26.3 25-34 pg Mean Corpuscular Hemoglobin Concent 31.8 32.3 32-36 g/dl Platelet Count 107 79 130-400 K/uL Neutrophils (%) (Auto) 71.0 68.0 % Lymphocytes (%) (Auto) 8.8 13.1 % Monocytes (%) (Auto) 14.9 13.9 % Eosinophils (%) (Auto) 4.6 4.2 % Basophils (%) (Auto) 0.6 0.6 % Neutrophils # (Auto) 6.30 3.38 1.4-6.5 K/uL Lymphocytes # (Auto) 0.78 0.65 1.2-3.4 K/uL Monocytes # (Auto) 1.32 0.69 0.11-0.59 K/uL Eosinophils # (Auto) 0.41 0.21 0-0.5 K/uL Basophils # (Auto) 0.05 0.03 0-0.2 K/uL RDW Standard Deviation 66.4 66.4 36.4-46.3 fL RDW Coefficient of Variation 22.2 22.2 11.5-14.5 % Immature Granulocyte % (Auto) 0.1 0.2 % Immature Granulocyte # (Auto) 0.01 0.01 0.00-0.02 K/uL Platelet Estimate DECREASED DECREASED Polychromasia 1+ Poikilocytosis PRESENT PRESENT Anisocytosis PRESENT PRESENT Sodium Level 139 139 136-145 mmol/L Potassium Level 4.6 4.6 3.5-5.1 mmol/L Chloride Level 106 105 98-107 mmol/L Carbon Dioxide Level 29 29 21-32 mmol/L Anion Gap 4.0 5.0 3-11 mmol/L Blood Urea Nitrogen 13 14 7-18 mg/dl Creatinine 1.10 1.20 0.60-1.40 mg/dl Est Creatinine Clear Calc Drug Dose 82.7 75.8 ml/min Estimated GFR () 82.9 74.7 Estimated GFR (Non- 71.6 64.4 BUN/Creatinine Ratio 11.6 11.5 10-20 Random Glucose 81 213 70-99 mg/dl Calcium Level 8.3 8.4 8.5-10.1 mg/dl Magnesium Level 1.7 1.9 1.8-2.4 mg/dl Total Bilirubin 1.2 0.2-1 mg/dl Direct Bilirubin 0.5 0-0.2 mg/dl Aspartate Amino Transf (AST/SGOT) 31 15-37 U/L Alanine Aminotransferase (ALT/SGPT) 25 12-78 U/L Alkaline Phosphatase 138 45-117 U/L Ammonia 54.0 38.0 11-32 umol/L Troponin I < 0.015 0-0.045 ng/ml Total Protein 6.0 6.4-8.2 gm/dl Albumin 2.9 3.4-5.0 gm/dl Peritoneal Fluid Total Protein 1.4 g/dl Peritoneal Fluid Albumin 0.8 g/dl Peritoneal Fluid LDH 48 IU Peritoneal Fluid Glucose 236 mg/dl Giant Platelets 1+ Hypochromasia PRESENT Prothrombin Time 14.4 9.0-12.0 SECONDS Prothromb Time International Ratio 1.3 0.9-1.1 Bedside Glucose 217 70-99 mg/dl Microbiology Results 06/08/16 Gram Stain, Received Pending 06/08/16 Bacterial Culture, Received Pending
[2016-06-08 14:51] LABS: PERIT FL WBC 128 /uL (0-300); PERITONEAL FLUID RBC < 3000 /uL
[2016-06-08] MEDS: PYRIDOXINE HCL 50 MG TAB PO SCH ×2 (20:51→22:00)
[2016-06-09] MEDS: ONDANSETRON INJ 2 MG/ML 2 ML VIAL IV PRN ×3 (04:21→18:06)
[2016-06-09 06:41] LABS: MEAN CORPUSCULAR HGB CONC 32.9 g/dl (32-36)
[2016-06-09 06:45] LABS: HEMATOCRIT 28.9 % (42-52); MEAN CELL VOLUME 80.5 fL (80-100); MEAN CORPUSCULAR HEMOGLOBIN 26.5 pg (25-34); RED BLOOD COUNT 3.59 M/uL (4.7-6.1); WHITE BLOOD COUNT 3.92 K/uL (4.8-10.8)
[2016-06-09] MEDS: LEVOTHYROXINE 75 MCG TAB PO SCH (06:48)
[2016-06-09 07:16] LABS: PLATELET COUNT 53 K/uL (130-400)
[2016-06-09 07:17] LABS: ANISOCYTOSIS PRESENT; BASO % 0.5 %; BASO ABS # 0.02 K/uL (0-0.2); COMPLETE YES; EOS % 4.1 %; LYMPH % 16.3 %; LYMPH ABS # 0.64 K/uL (1.2-3.4); MONO % 14.5 %; NEUT % 64.6 %; PLT ESTIMATE DECREASED
[2016-06-09 07:19] VITALS: BP 110/66; PULSE 70; TEMP 37; O2SAT 99
[2016-06-09 07:22] LABS: BUN/CREATININE RATIO 11.6 (10-20); CALCIUM 8.2 mg/dl (8.5-10.1); CREATININE 1.2 mg/dl (0.60-1.40); POTASSIUM 4.4 mmol/L (3.5-5.1)
[2016-06-09] MEDS: HYDROmorphone HCL 2 MG TAB PO PRN ×2 (09:02→16:17)
[2016-06-09] MEDS: ESCITALOPRAM OXALATE 10 MG TAB PO SCH (09:02)
[2016-06-09] MEDS: PROPRANOLOL HCL 10 MG TAB PO SCH ×2 (09:02→21:06)
[2016-06-09] MEDS: FERROUS SULFATE 325 MG TAB PO SCH ×2 (09:03→21:05)
[2016-06-09] MEDS: LACTULOSE SYRUP 20 GM/30 ML UDC PO SCH ×3 (09:03→21:10)
[2016-06-09] MEDS: FUROSEMIDE 20 MG TAB PO SCH ×2 (09:03→16:17)
[2016-06-09] MEDS: SPIRONOLACTONE 100 MG TAB PO SCH (09:04)
[2016-06-09] MEDS: LEVETIRACETAM 500 MG TAB PO SCH ×2 (09:04→21:05)
[2016-06-09] MEDS: RIFAXIMIN TAB 550 MG TAB PO SCH ×2 (09:04→21:09)
[2016-06-09] MEDS: PANTOprazole SOD 40 MG TAB PO SCH ×2 (09:04→21:08)
[2016-06-09] MEDS: PREGABALIN 75 MG CAP PO SCH ×2 (09:08→21:11)
[2016-06-09] MEDS: INSULIN GLARGINE SOLOSTAR 100 UNITS/ML 3 ML PEN SC SCH ×2 (09:09→21:11)
[2016-06-09] MEDS: INSULIN ASPART 100 UNITS/ML 3 ML PEN SC SCH ×4 (09:11→21:13)
[2016-06-09] MEDS ORDERED: SOD PHOSPHATE/SOD BIPHOSPHATE ENEMA 132 ML BTL PR ONE (11:00)
[2016-06-09] MEDS ORDERED: BISACODYL 10 MG SUPP PR STA (11:17)
--- NOTE | 2016-06-09 12:17 | Gastroenterology Progress Note ---
Progress Note Date of Service: June 09, 2016 Subjective Pt evaluation today including: conversation w/ patient, physical exam, chart review, lab review, review of inpatient medication list Pt had 8L ascites fluid removal yesterday. No sign of SBP. He reports some chest tenderness but states likely because of previously how distended his abd was. Tolerating diet, no n/v. Review of Systems Constitutional: No chills, No fever Respiratory: No cough, No shortness of breath Cardiac: No chest pain, No edema Abdomen: No nausea, No pain, No vomiting Medications Current Inpatient Medications Medications (Trade) Dose Ordered Sig/Ryan Route Start Time Stop Time Status Last Admin Dose Admin Miscellaneous (Iv Fluids Completed) 1 ea PRN PRN N/A 06/07/16 22:45 06/07/17 22:44 Insulin Aspart (novoLOG ASPART) SLIDING SCALE If C... ACHS SC 06/08/16 07:00 07/08/16 06:59 06/09/16 09:11 5 UNITS Glucose (Glucose 40% Gel) 15-30 GRAMS 15 GRAMS... UD PRN PO 06/07/16 23:15 07/07/16 23:14 Glucose (Glucose Chew Tab) 4-8 Tablets 4 Tabl... UD PRN PO 06/07/16 23:15 07/07/16 23:14 Dextrose (Dextrose 50% 50ML Syringe) 25-50ML OF 50% DW IV FOR... UD PRN IV 06/07/16 23:15 07/07/16 23:14 Glucagon (Glucagon Inj) 1 mg UD PRN SQ 06/07/16 23:15 07/07/16 23:14 Ondansetron HCl (Zofran Inj) 4 mg Q6H PRN IV 06/07/16 23:15 07/07/16 23:14 06/09/16 10:51 4 MG Escitalopram Oxalate (Lexapro Tab) 10 mg DAILY PO 06/08/16 09:00 07/08/16 08:59 06/09/16 09:02 10 MG Furosemide (Lasix Tab) 20 mg BID17 PO 06/08/16 09:00 07/08/16 08:59 06/09/16 09:03 20 MG Insulin Glargine (Lantus Solostar Pen) 10 unit BID SC 06/08/16 09:00 07/08/16 08:59 06/09/16 09:09 10 UNIT Lactulose (Chronulac Syrup) 20 gm TID PO 06/08/16 09:00 07/08/16 08:59 06/09/16 09:03 20 GM Levetiracetam (Keppra Tab) 500 mg BID PO 06/08/16 08:00 07/08/16 07:59 06/09/16 09:04 500 MG Levothyroxine Sodium (Synthroid Tab) 75 mcg DAILYBB PO 06/08/16 06:30 07/08/16 06:29 06/09/16 06:48 75 MCG Pantoprazole Sodium (Protonix Tab) 40 mg BID PO 06/08/16 09:00 07/08/16 08:59 06/09/16 09:04 40 MG Pregabalin (Lyrica Cap) 75 mg BID PO 06/07/16 23:15 06/14/16 08:01 06/09/16 09:08 75 MG Propranolol HCl (Inderal Tab) 10 mg BID PO 06/08/16 09:00 07/08/16 08:59 06/09/16 09:02 10 MG Rifaximin (Xifaxan Tab) 550 mg BID PO 06/08/16 08:00 07/08/16 07:59 06/09/16 09:04 550 MG Spironolactone (Aldactone Tab) 100 mg DAILY PO 06/08/16 09:00 07/08/16 08:59 06/09/16 09:04 100 MG Ferrous Sulfate (Feosol Tab) 325 mg BID PO 06/08/16 09:00 07/08/16 08:59 06/09/16 09:03 325 MG Pyridoxine HCl (Vitamin B-6 Tab) 25 mg HS PO 06/08/16 21:00 07/08/16 20:59 06/08/16 20:51 25 MG Hydromorphone HCl (Dilaudid Tab) 4 mg TID PRN PO 06/08/16 08:00 06/22/16 07:59 06/09/16 09:02 4 MG Objective Vital Signs Date Time Temp Pulse Resp B/P Pulse Ox O2 Delivery O2 Flow Rate FiO2 06/09/16 08:00 Room Air 06/09/16 07:19 37.0 70 18 110/66 99 Room Air 06/09/16 00:00 Room Air 06/08/16 22:59 36.8 72 18 98/51 97 Room Air 06/08/16 16:33 36.8 67 18 126/78 98 Room Air 06/08/16 16:00 98 Room Air 06/08/16 14:35 36.8 73 16 101/57 98 Room Air 06/08/16 14:25 36.9 68 18 101/62 98 Room Air 06/08/16 13:35 36.9 76 18 101/60 98 Room Air 06/08/16 12:25 36.9 66 18 108/59 98 Room Air Physical Exam General Appearance: WD/WN, no apparent distress Eyes: normal inspection, PERRL, EOMI Neck: supple, no JVD, trachea midline Respiratory/Chest: normal breath sounds, no respiratory distress, no accessory muscle use Cardiovascular: regular rate, rhythm, no gallop, no murmur Abdomen: normal bowel sounds, + distended (mild), + hernia (umbilical) Extremities: no calf tenderness, + swelling (+1 edema bilateral LE) Neurologic/Psych: alert, normal mood/affect, oriented x 3 Skin: normal color, no jaundice, no rash Laboratory Results Last 24 Hours Test 06/08/16 12:17 06/08/16 17:24 06/08/16 20:11 06/09/16 06:24 Bedside Glucose 327 mg/dl 204 mg/dl 259 mg/dl White Blood Count 3.92 K/uL Red Blood Count 3.59 M/uL Hemoglobin 9.5 g/dL Hematocrit 28.9 % Mean Corpuscular Volume 80.5 fL Mean Corpuscular Hemoglobin 26.5 pg Mean Corpuscular Hemoglobin Concent 32.9 g/dl Platelet Count 53 K/uL Neutrophils (%) (Auto) 64.6 % Lymphocytes (%) (Auto) 16.3 % Monocytes (%) (Auto) 14.5 % Eosinophils (%) (Auto) 4.1 % Basophils (%) (Auto) 0.5 % Neutrophils # (Auto) 2.53 K/uL Lymphocytes # (Auto) 0.64 K/uL Monocytes # (Auto) 0.57 K/uL Eosinophils # (Auto) 0.16 K/uL Basophils # (Auto) 0.02 K/uL RDW Standard Deviation 66.3 fL RDW Coefficient of Variation 22.3 % Immature Granulocyte % (Auto) 0.0 % Immature Granulocyte # (Auto) 0.00 K/uL Platelet Estimate DECREASED Anisocytosis PRESENT Sodium Level 138 mmol/L Potassium Level 4.4 mmol/L Chloride Level 104 mmol/L Carbon Dioxide Level 28 mmol/L Anion Gap 6.0 mmol/L Blood Urea Nitrogen 14 mg/dl Creatinine 1.20 mg/dl Est Creatinine Clear Calc Drug Dose 75.8 ml/min Estimated GFR () 74.7 Estimated GFR (Non- 64.4 BUN/Creatinine Ratio 11.6 Random Glucose 238 mg/dl Calcium Level 8.2 mg/dl Test 06/09/16 07:53 06/09/16 11:30 Bedside Glucose 229 mg/dl 338 mg/dl Assessment and Plan Patient is a 61 year old male w NAFLD cirrhosis admitted for ascites and edema management. Suspect likely recurrence of fluid overload related to non compliance w meds and diet. Plan - U/S guided paracentesis w cell ct and fluid analysis to r/o SBP. -> 8L ascites fluid removed on 06/08, no signs of SBP - Diabetic 2g Na diet - Continue Lasix 40mg/Spironolactone 100mg daily, can titrate for ascites edema control. - Stressed importance for diet/med compliance. Also discussed obtaining social support for transportation to medical appt/procedures. Pt is currently relying on sister in law for transportation, filling med box. Though she is also taking care of on dialysis, have young kids. He admits he'll not want to go back to a [facility] even if this is a choice he has. - OK for DC from GI standpoint.
--- NOTE | 2016-06-09 12:40 | Palliative Care Consultation ---
Consultation Date of Consultation: June 09, 2016. Requesting Physician: Dr. Hanks Attending Physician: Dr. Hanks Reason for Consultation: Goals of care History of Present Illness This 61 year old male patient presented to the ED yesterday with c/o increased abdominal pain and bloating. He has a long-standing history of non-alcoholic fatty liver disease, requiring frequent paracenteses. Yesterday, patient had paracentesis, had 8L ascitic fluid drained. Fluid negative for infection. Has been to the ED 16 times in the past 16 months for various reasons, most of the time with complaints related to the NAFLD. He lives home with a roommate, misses appointments for outpatient paracentesis and other doctors' appointments quite often. He previously stayed at [facility], but now he adamantly declines going to any facility and just wants to go home. Palliative care consulted as extra layer of support and to establish goals of care. I met with the patient in room 460. He is awake, alert and oriented x4. Very pleasant. We discussed his medical conditions. States, "My liver is shot; and it 's going to be that way until I can get a transplant." Patient states that he is on the liver transplant list in [place], and he plans to go to [facility] in [place] on 07/27 to see if he is a candidate for TIPS procedure. His goal is to be at home, he absolutely does not want to go to a facility. At this time, patient is completely independent. His biggest issue is that he has no transportation to and from appointments as he has no drivers' license due to a suspected seizure 6 years ago[address] Mcgarry, neurologist, told him he could get his license back. She's signed papers for him but then he continues to not be able to obtain his license from the state. His case management rn through [facility] has been working with him to try and find transport, but has been unsuccessful. Her plan is to contact the state merchandiser retail representative from [facility] per the patient. His [id number] is his biggest support-- she takes care of organizing his medications every weak, makes sure he has food, and does provide some transportation but she is very busy with two young children and a she transports to dialysis 3x/week. Patient states that if he is "end-stage" he would just want to be comfortable and be home with hospice. He wants to be full code at this time, but would never want any life-prolonging measures if there was no hope of meaningful recovery. this includes trach, feeding tube or dialysis. He does have a living will which states this. His sister, Tiana Rajput , is his POA. Patient still has some abdominal tenderness and chest pain 05/15. States, "It's not my heart though, I always have this chest pain and they checked it out." He has no nausea/vomiting. Only gets SOB with activity when his abdomen is full of ascites. Past Medical/Surgical History Medical History: Cirrhosis 2/2 NAFLD Htn Chronic anemia DM type 2 Seizure disorder PE/DVT s/p IVC filter placement Chronic pain on narcotics Surgical History: IVC filter Paracenteses Back surgery Knee replacement Social History Smoking Status: Never Smoker History of Alcohol Use: No Drug Use: none Marital Status: single Housing Status: lives with roommate Occupation Status: retired Review of Systems Constitutional: No weakness (uses cane at baseline, feels he is at baseline), No weight loss ENT: No trouble swallowing Respiratory: + dyspnea on exertion, No cough, No dyspnea at rest, No wheezing Cardiac: + chest pain (see HPI), + edema (lower extremities) Abdomen: + pain, No nausea, No vomiting Male : No problem reported Psychiatric: No anxiety Allergies Coded Allergies: Acetaminophen (Verified Allergy, Severe, ESLD (BETANCOURT). on Liver transplant list. Cannot have APAP., 06/07/16) NSAIDs (Verified Allergy, Severe, DUE TO LIVER DISEAS, 06/07/16) Penicillins (Verified Allergy, Severe, JOINT SWELLING AND FEVER, 06/07/16) Levofloxacin (Verified Allergy, Mild, RASH, 06/07/16) pt developed erythema at site of IV injection with itching Vancomycin (Verified Allergy, Mild, HIVES, 06/07/16) HIVES Tramadol (Verified Allergy, Unknown, NOT TO TAKE WITH KEPPRA DUE TO SEIZURE RISK, 06/07/16) Medications Current Inpatient Medications Medications (Trade) Dose Ordered Sig/Ryan Route Start Time Stop Time Status Last Admin Dose Admin Miscellaneous (Iv Fluids Completed) 1 ea PRN PRN N/A 06/07/16 22:45 06/07/17 22:44 Insulin Aspart (novoLOG ASPART) SLIDING SCALE If C... ACHS SC 06/08/16 07:00 07/08/16 06:59 06/09/16 09:11 5 UNITS Glucose (Glucose 40% Gel) 15-30 GRAMS 15 GRAMS... UD PRN PO 06/07/16 23:15 07/07/16 23:14 Glucose (Glucose Chew Tab) 4-8 Tablets 4 Tabl... UD PRN PO 06/07/16 23:15 07/07/16 23:14 Dextrose (Dextrose 50% 50ML Syringe) 25-50ML OF 50% DW IV FOR... UD PRN IV 06/07/16 23:15 07/07/16 23:14 Glucagon (Glucagon Inj) 1 mg UD PRN SQ 06/07/16 23:15 07/07/16 23:14 Ondansetron HCl (Zofran Inj) 4 mg Q6H PRN IV 06/07/16 23:15 07/07/16 23:14 06/09/16 10:51 4 MG Escitalopram Oxalate (Lexapro Tab) 10 mg DAILY PO 06/08/16 09:00 07/08/16 08:59 06/09/16 09:02 10 MG Furosemide (Lasix Tab) 20 mg BID17 PO 06/08/16 09:00 07/08/16 08:59 06/09/16 09:03 20 MG Insulin Glargine (Lantus Solostar Pen) 10 unit BID SC 06/08/16 09:00 07/08/16 08:59 06/09/16 09:09 10 UNIT Lactulose (Chronulac Syrup) 20 gm TID PO 06/08/16 09:00 07/08/16 08:59 06/09/16 09:03 20 GM Levetiracetam (Keppra Tab) 500 mg BID PO 06/08/16 08:00 07/08/16 07:59 06/09/16 09:04 500 MG Levothyroxine Sodium (Synthroid Tab) 75 mcg DAILYBB PO 06/08/16 06:30 07/08/16 06:29 06/09/16 06:48 75 MCG Pantoprazole Sodium (Protonix Tab) 40 mg BID PO 06/08/16 09:00 07/08/16 08:59 06/09/16 09:04 40 MG Pregabalin (Lyrica Cap) 75 mg BID PO 06/07/16 23:15 06/14/16 08:01 06/09/16 09:08 75 MG Propranolol HCl (Inderal Tab) 10 mg BID PO 06/08/16 09:00 07/08/16 08:59 06/09/16 09:02 10 MG Rifaximin (Xifaxan Tab) 550 mg BID PO 06/08/16 08:00 07/08/16 07:59 06/09/16 09:04 550 MG Spironolactone (Aldactone Tab) 100 mg DAILY PO 06/08/16 09:00 07/08/16 08:59 06/09/16 09:04 100 MG Ferrous Sulfate (Feosol Tab) 325 mg BID PO 06/08/16 09:00 07/08/16 08:59 06/09/16 09:03 325 MG Pyridoxine HCl (Vitamin B-6 Tab) 25 mg HS PO 06/08/16 21:00 07/08/16 20:59 06/08/16 20:51 25 MG Hydromorphone HCl (Dilaudid Tab) 4 mg TID PRN PO 06/08/16 08:00 06/22/16 07:59 06/09/16 09:02 4 MG Physical Exam Date Time Temp Pulse Resp B/P Pulse Ox O2 Delivery O2 Flow Rate FiO2 06/09/16 08:00 Room Air 06/09/16 07:19 37.0 70 18 110/66 99 Room Air 06/09/16 00:00 Room Air 06/08/16 22:59 36.8 72 18 98/51 97 Room Air 06/08/16 16:33 36.8 67 18 126/78 98 Room Air 06/08/16 16:00 98 Room Air 06/08/16 14:35 36.8 73 16 101/57 98 Room Air 06/08/16 14:25 36.9 68 18 101/62 98 Room Air 06/08/16 13:35 36.9 76 18 101/60 98 Room Air 06/08/16 12:25 36.9 66 18 108/59 98 Room Air General Appearance: no apparent distress ENT: hearing grossly normal, + pertinent finding (poor dentition-- missing and broken/rotted teeth) Neck: supple, no JVD Respiratory: no respiratory distress, no accessory muscle use, + pertinent finding (room air) Cardiovascular: regular rate, rhythm, + pertinent finding (+2 pitting edema to bilateral feet/ankles up to mid hilliard) Abdomen: normal bowel sounds, soft, + distended, + tenderness Musculoskeletal: pertinent finding (thin extremities) Neurologic/Psychiatric: alert, normal mood/affect, oriented x 3 Laboratory Results Last 24 Hours Test 06/08/16 12:17 06/08/16 17:24 06/08/16 20:11 06/09/16 06:24 Bedside Glucose 327 mg/dl 204 mg/dl 259 mg/dl White Blood Count 3.92 K/uL Red Blood Count 3.59 M/uL Hemoglobin 9.5 g/dL Hematocrit 28.9 % Mean Corpuscular Volume 80.5 fL Mean Corpuscular Hemoglobin 26.5 pg Mean Corpuscular Hemoglobin Concent 32.9 g/dl Platelet Count 53 K/uL Neutrophils (%) (Auto) 64.6 % Lymphocytes (%) (Auto) 16.3 % Monocytes (%) (Auto) 14.5 % Eosinophils (%) (Auto) 4.1 % Basophils (%) (Auto) 0.5 % Neutrophils # (Auto) 2.53 K/uL Lymphocytes # (Auto) 0.64 K/uL Monocytes # (Auto) 0.57 K/uL Eosinophils # (Auto) 0.16 K/uL Basophils # (Auto) 0.02 K/uL RDW Standard Deviation 66.3 fL RDW Coefficient of Variation 22.3 % Immature Granulocyte % (Auto) 0.0 % Immature Granulocyte # (Auto) 0.00 K/uL Platelet Estimate DECREASED Anisocytosis PRESENT Sodium Level 138 mmol/L Potassium Level 4.4 mmol/L Chloride Level 104 mmol/L Carbon Dioxide Level 28 mmol/L Anion Gap 6.0 mmol/L Blood Urea Nitrogen 14 mg/dl Creatinine 1.20 mg/dl Est Creatinine Clear Calc Drug Dose 75.8 ml/min Estimated GFR () 74.7 Estimated GFR (Non- 64.4 BUN/Creatinine Ratio 11.6 Random Glucose 238 mg/dl Calcium Level 8.2 mg/dl Test 06/09/16 07:53 Bedside Glucose 229 mg/dl Assessment & Plan Palliative Performance Scale: 80 % Problem list: Pain, abdominal and chest Cirrhosis of the liver secondary to NAFLD Ascites s/p paracentesis 06/08/16 Lack of social support Goals of care (Z51.5) Palliative care plan: -Patient wants to remain full code at this time, in his current condition. -Has living will which states in end-stage medical condition, he would not want any life-prolonging measures such as CPR, mechanical ventilation, trach, feeding tube. -Patient's goal is to get home. Biggest issue at hand is that patient has no transportation. He has missed several appts in [place] and here in [place], which is why he is continuously coming to the ED. Spoke with case management rn about this. Patient has a case management rn through [facility] who is working with him to get transportation. I suggested seeing if patient qualifies for waiver program-- who could then transport the patient. -Concerned about patient living home alone with little social support. He is missing appointments and allowing his ascites to increase to an unacceptable amount before eventually just coming to hospital by ambulance. MAYI Chong with [facility], also came into patient's room and discussed with him how dangerous this can be. He verbalized understanding. If patient continues on this patter, Office of Aging may need to be contacted. -Currently has 4mg PO Dilaudid PRN ordered for pain. Has only taken 3 doses since admission and states his pain is at an acceptable level at this time. Thank you for this consult. Please contact me with any further palliative care needs.
[2016-06-09 14:55] VITALS: BP 108/68; PULSE 64; TEMP 36.7; O2SAT 97
--- NOTE | 2016-06-09 15:37 | Progress Note ---
Internal Med Progress Note Date of Service: June 09, 2016. Provider Documentation: SUBJECTIVE: The patient was seen and examined Admitted with Abdominal swelling and pain Still has the pain but very minimal S/P paracentesis-8 liters on 06/08/16 Bowel not moved OBJECTIVE: Vital Signs-as noted below Exam: General-Moderate distress at rest Eyes-normal ENT-normal Neck-supple Lungs-clear to auscultate bilaterally Heart-regular,no murmur Abdomen-Distended,tense,tender ,bowel sound sluggish Extremities-2+ edema bilaterally [id number] weak Lab data as noted below. ASSESSMENT & PLAN: Recurrent ascites chronic abdominal pain complaints hx cirrhosis 2 to NAFLD multiple admissions/ER visits possible noncompliance Patient's ascitic fluid consistently of transudative nature since 2013. No signs or symptoms suggestive of SBP now-No antibiotic S/p Paracentesis-Total of 8 liters taken out Feels fine today Palliative Care consulted -appreciate Input Patient wants to keep his appointment at [facility] for possible TIPS procedure Hypertension, stable. DM2, insulin requiring suboptimal control as of recent HgA1c patient's blood sugar currently on the lower side Basal insulin, ISS BG goal 140-180. Carb count coverage indicated for suboptimal blood sugar control. Chronic anemia, thrombocytopenia 2 to cirrhosis H/O PE/DVT status post IVC filter off anticoag 2 to bleeding risk Seizure disorder, stable on meds. Possible drug seeking behavior. PT/OT eval DVT prophylaxis, SCDs. RE thrombocytopenia Full code. Likely home tomorrow Vital Signs: Date Time Temp Pulse Resp B/P Pulse Ox O2 Delivery O2 Flow Rate FiO2 06/09/16 14:55 36.7 64 18 108/68 97 Room Air 06/09/16 08:00 Room Air 06/09/16 07:19 37.0 70 18 110/66 99 Room Air 06/09/16 00:00 Room Air 06/08/16 22:59 36.8 72 18 98/51 97 Room Air 06/08/16 16:33 36.8 67 18 126/78 98 Room Air 06/08/16 16:00 98 Room Air Lab Results: Results Past 24 Hours Test 06/08/16 17:24 06/08/16 20:11 06/09/16 06:24 06/09/16 07:53 Range/Units Bedside Glucose 204 259 229 70-99 mg/dl White Blood Count 3.92 4.8-10.8 K/uL Red Blood Count 3.59 4.7-6.1 M/uL Hemoglobin 9.5 14.0-18.0 g/dL Hematocrit 28.9 42-52 % Mean Corpuscular Volume 80.5 80-100 fL Mean Corpuscular Hemoglobin 26.5 25-34 pg Mean Corpuscular Hemoglobin Concent 32.9 32-36 g/dl Platelet Count 53 130-400 K/uL Neutrophils (%) (Auto) 64.6 % Lymphocytes (%) (Auto) 16.3 % Monocytes (%) (Auto) 14.5 % Eosinophils (%) (Auto) 4.1 % Basophils (%) (Auto) 0.5 % Neutrophils # (Auto) 2.53 1.4-6.5 K/uL Lymphocytes # (Auto) 0.64 1.2-3.4 K/uL Monocytes # (Auto) 0.57 0.11-0.59 K/uL Eosinophils # (Auto) 0.16 0-0.5 K/uL Basophils # (Auto) 0.02 0-0.2 K/uL RDW Standard Deviation 66.3 36.4-46.3 fL RDW Coefficient of Variation 22.3 11.5-14.5 % Immature Granulocyte % (Auto) 0.0 % Immature Granulocyte # (Auto) 0.00 0.00-0.02 K/uL Platelet Estimate DECREASED Anisocytosis PRESENT Sodium Level 138 136-145 mmol/L Potassium Level 4.4 3.5-5.1 mmol/L Chloride Level 104 98-107 mmol/L Carbon Dioxide Level 28 21-32 mmol/L Anion Gap 6.0 3-11 mmol/L Blood Urea Nitrogen 14 7-18 mg/dl Creatinine 1.20 0.60-1.40 mg/dl Est Creatinine Clear Calc Drug Dose 75.8 ml/min Estimated GFR () 74.7 Estimated GFR (Non- 64.4 BUN/Creatinine Ratio 11.6 10-20 Random Glucose 238 70-99 mg/dl Calcium Level 8.2 8.5-10.1 mg/dl Test 06/09/16 11:30 Range/Units Bedside Glucose 338 70-99 mg/dl
[2016-06-09] MEDS: PYRIDOXINE HCL 50 MG TAB PO SCH (21:14)
[2016-06-09 21:18] VITALS: BP 109/65; PULSE 78
[2016-06-09 22:44] VITALS: BP 107/66; PULSE 67; TEMP 36.9; O2SAT 94
[2016-06-10] MEDS: ONDANSETRON INJ 2 MG/ML 2 ML VIAL IV PRN ×3 (00:57→16:56)
[2016-06-10] MEDS: HYDROmorphone HCL 2 MG TAB PO PRN ×3 (00:58→16:57)
[2016-06-10] MEDS: LEVOTHYROXINE 75 MCG TAB PO SCH (06:29)
[2016-06-10 06:56] VITALS: BP 106/68; PULSE 64; TEMP 36.7; O2SAT 92
[2016-06-10 06:58] LABS: MEAN CORPUSCULAR HGB CONC 33.1 g/dl (32-36)
[2016-06-10 07:20] LABS: HEMATOCRIT 29.3 % (42-52); MEAN CELL VOLUME 80.5 fL (80-100); MEAN CORPUSCULAR HEMOGLOBIN 26.6 pg (25-34); RED BLOOD COUNT 3.64 M/uL (4.7-6.1); WHITE BLOOD COUNT 5.03 K/uL (4.8-10.8)
[2016-06-10 07:35] LABS: BUN/CREATININE RATIO 10.1 (10-20); CALCIUM 7.9 mg/dl (8.5-10.1); CREATININE 1.2 mg/dl (0.60-1.40); POTASSIUM 4.1 mmol/L (3.5-5.1)
[2016-06-10 07:42] LABS: PLATELET COUNT 61 K/uL (130-400)
[2016-06-10 07:45] LABS: ANISOCYTOSIS PRESENT; BASO % 0.8 %; BASO ABS # 0.04 K/uL (0-0.2); COMPLETE YES; EOS % 4.4 %; IG% 0.2 %; LYMPH % 14.7 %; LYMPH ABS # 0.74 K/uL (1.2-3.4); MONO % 13.3 %; NEUT % 66.6 %; OVALOCYTES 1+; SCHISTOCYTES OCCASIONAL
[2016-06-10 08:00] VITALS: O2SAT 92
[2016-06-10] MEDS: INSULIN ASPART 100 UNITS/ML 3 ML PEN SC SCH ×4 (09:43→20:49)
[2016-06-10] MEDS: INSULIN GLARGINE SOLOSTAR 100 UNITS/ML 3 ML PEN SC SCH ×2 (09:43→20:50)
[2016-06-10] MEDS: LACTULOSE SYRUP 20 GM/30 ML UDC PO SCH ×3 (09:44→20:38)
[2016-06-10] MEDS: PREGABALIN 75 MG CAP PO SCH ×2 (09:45→20:40)
[2016-06-10] MEDS: FERROUS SULFATE 325 MG TAB PO SCH ×2 (09:46→20:39)
[2016-06-10] MEDS: SPIRONOLACTONE 100 MG TAB PO SCH (09:46)
[2016-06-10] MEDS: PROPRANOLOL HCL 10 MG TAB PO SCH ×2 (09:46→20:41)
[2016-06-10] MEDS: ESCITALOPRAM OXALATE 10 MG TAB PO SCH (09:47)
[2016-06-10] MEDS: LEVETIRACETAM 500 MG TAB PO SCH ×2 (09:47→20:41)
[2016-06-10] MEDS: PANTOprazole SOD 40 MG TAB PO SCH ×2 (09:47→20:39)
[2016-06-10] MEDS: RIFAXIMIN TAB 550 MG TAB PO SCH ×2 (09:48→20:41)
[2016-06-10] MEDS: FUROSEMIDE 20 MG TAB PO SCH ×2 (09:48→16:53)
[2016-06-10] MEDS ORDERED: BISACODYL 10 MG SUPP PR ONE (10:45)
--- NOTE | 2016-06-10 14:26 | Progress Note ---
Internal Med Progress Note Date of Service: June 10, 2016. Provider Documentation: SUBJECTIVE: The patient was seen and examined Admitted with Abdominal swelling and pain Still has the pain but very minimal S/P paracentesis-8 liters on 06/08/16 Bowel not moved yet No new symptoms OBJECTIVE: Vital Signs-as noted below Exam: General-Moderate distress at rest Eyes-normal ENT-normal Neck-supple Lungs-clear to auscultate bilaterally Heart-regular,no murmur Abdomen-Distended,tense,tender ,bowel sound remains sluggish Extremities-2+ edema bilaterally [id number] weak Lab data as noted below. ASSESSMENT & PLAN: Recurrent ascites:require frequent paracentesis chronic abdominal pain complaints hx cirrhosis 2 to NAFLD multiple admissions/ER visits possible noncompliance Patient's ascitic fluid consistently of transudative nature since 2013. No signs or symptoms suggestive of SBP now-No antibiotic S/p Paracentesis-Total of 8 liters taken out Palliative Care consulted -appreciate Input Patient wants to keep his appointment at [facility] for possible TIPS procedure Bowel not moved since yesterday Has been on Lactulose TID Can be discharged home following bowel movement Hypertension, stable. DM2, insulin requiring suboptimal control as of recent HgA1c patient's blood sugar currently on the lower side Basal insulin, ISS BG goal 140-180. Carb count coverage indicated for suboptimal blood sugar control. Chronic anemia, thrombocytopenia 2 to cirrhosis H/O PE/DVT status post IVC filter off anticoag 2 to bleeding risk Seizure disorder, stable on meds. Possible drug seeking behavior. PT/OT eval DVT prophylaxis, SCDs. RE thrombocytopenia Full code. Likely home today after bowel movement Vital Signs: Date Time Temp Pulse Resp B/P Pulse Ox O2 Delivery O2 Flow Rate FiO2 06/10/16 08:00 92 Room Air 06/10/16 06:56 36.7 64 18 106/68 92 Room Air 06/10/16 00:00 Room Air 06/09/16 22:44 36.9 67 18 107/66 94 Room Air 06/09/16 21:18 78 109/65 06/09/16 20:00 Room Air 06/09/16 16:00 Room Air 06/09/16 14:55 36.7 64 18 108/68 97 Room Air Lab Results: Results Past 24 Hours Test 06/09/16 16:23 06/09/16 20:03 06/10/16 06:43 06/10/16 08:27 Range/Units Bedside Glucose 300 254 228 70-99 mg/dl White Blood Count 5.03 4.8-10.8 K/uL Red Blood Count 3.64 4.7-6.1 M/uL Hemoglobin 9.7 14.0-18.0 g/dL Hematocrit 29.3 42-52 % Mean Corpuscular Volume 80.5 80-100 fL Mean Corpuscular Hemoglobin 26.6 25-34 pg Mean Corpuscular Hemoglobin Concent 33.1 32-36 g/dl Platelet Count 61 130-400 K/uL Neutrophils (%) (Auto) 66.6 % Lymphocytes (%) (Auto) 14.7 % Monocytes (%) (Auto) 13.3 % Eosinophils (%) (Auto) 4.4 % Basophils (%) (Auto) 0.8 % Neutrophils # (Auto) 3.35 1.4-6.5 K/uL Lymphocytes # (Auto) 0.74 1.2-3.4 K/uL Monocytes # (Auto) 0.67 0.11-0.59 K/uL Eosinophils # (Auto) 0.22 0-0.5 K/uL Basophils # (Auto) 0.04 0-0.2 K/uL RDW Standard Deviation 66.1 36.4-46.3 fL RDW Coefficient of Variation 22.5 11.5-14.5 % Immature Granulocyte % (Auto) 0.2 % Immature Granulocyte # (Auto) 0.01 0.00-0.02 K/uL Anisocytosis PRESENT Ovalocytes 1+ Schistocytes OCCASIONAL Sodium Level 139 136-145 mmol/L Potassium Level 4.1 3.5-5.1 mmol/L Chloride Level 103 98-107 mmol/L Carbon Dioxide Level 29 21-32 mmol/L Anion Gap 7.0 3-11 mmol/L Blood Urea Nitrogen 12 7-18 mg/dl Creatinine 1.20 0.60-1.40 mg/dl Est Creatinine Clear Calc Drug Dose 75.8 ml/min Estimated GFR () 74.7 Estimated GFR (Non- 64.4 BUN/Creatinine Ratio 10.1 10-20 Random Glucose 226 70-99 mg/dl Calcium Level 7.9 8.5-10.1 mg/dl Test 06/10/16 11:22 Range/Units Bedside Glucose 304 70-99 mg/dl
[2016-06-10 14:51] VITALS: BP 103/61; PULSE 68; TEMP 36.7; O2SAT 93
[2016-06-10 17:43] VITALS: O2SAT 93
[2016-06-10] MEDS ORDERED: MAGNESIUM HYDROXIDE SUSP 30 ML UDC PO ONE (18:30)
[2016-06-10] MEDS: PYRIDOXINE HCL 50 MG TAB PO SCH (20:40)
[2016-06-10 22:54] VITALS: BP 107/62; PULSE 67; TEMP 36.9; O2SAT 94
[2016-06-11 05:58] LABS: MEAN CORPUSCULAR HGB CONC 33.3 g/dl (32-36)
[2016-06-11 06:21] LABS: HEMATOCRIT 29.1 % (42-52); MEAN CELL VOLUME 80.6 fL (80-100); MEAN CORPUSCULAR HEMOGLOBIN 26.9 pg (25-34); RED BLOOD COUNT 3.61 M/uL (4.7-6.1); WHITE BLOOD COUNT 4.82 K/uL (4.8-10.8)
[2016-06-11] MEDS: LEVOTHYROXINE 75 MCG TAB PO SCH (06:25)
[2016-06-11 06:27] LABS: BUN/CREATININE RATIO 10.7 (10-20); CALCIUM 8.1 mg/dl (8.5-10.1); CREATININE 1.1 mg/dl (0.60-1.40); POTASSIUM 4.1 mmol/L (3.5-5.1)
[2016-06-11] MEDS: HYDROmorphone HCL 2 MG TAB PO PRN ×3 (06:31→20:35)
[2016-06-11] MEDS: ONDANSETRON INJ 2 MG/ML 2 ML VIAL IV PRN ×2 (06:31→12:47)
[2016-06-11 06:51] VITALS: BP 107/69; PULSE 68; TEMP 36.7; O2SAT 91
[2016-06-11 07:20] LABS: ANISOCYTOSIS PRESENT; BASO % 0.8 %; BASO ABS # 0.04 K/uL (0-0.2); COMPLETE YES; EOS % 4.6 %; IG% 0.2 %; LARGE PLATELETS 1+; LYMPH ABS # 0.77 K/uL (1.2-3.4); NEUT % 66.4 %; PLATELET COUNT 61 K/uL (130-400); PLT ESTIMATE DECREASED
[2016-06-11] MEDS: LEVETIRACETAM 500 MG TAB PO SCH ×2 (08:22→20:29)
[2016-06-11] MEDS: FERROUS SULFATE 325 MG TAB PO SCH ×2 (08:22→20:26)
[2016-06-11] MEDS: ESCITALOPRAM OXALATE 10 MG TAB PO SCH (08:22)
[2016-06-11] MEDS: SPIRONOLACTONE 100 MG TAB PO SCH (08:23)
[2016-06-11] MEDS: RIFAXIMIN TAB 550 MG TAB PO SCH ×2 (08:23→20:29)
[2016-06-11] MEDS: FUROSEMIDE 20 MG TAB PO SCH ×2 (08:23→17:10)
[2016-06-11] MEDS: PANTOprazole SOD 40 MG TAB PO SCH ×2 (08:23→20:29)
[2016-06-11] MEDS: LACTULOSE SYRUP 20 GM/30 ML UDC PO SCH ×3 (08:23→20:26)
[2016-06-11] MEDS: PROPRANOLOL HCL 10 MG TAB PO SCH ×2 (08:23→20:27)
[2016-06-11] MEDS: PREGABALIN 75 MG CAP PO SCH ×2 (08:24→20:35)
[2016-06-11] MEDS: INSULIN GLARGINE SOLOSTAR 100 UNITS/ML 3 ML PEN SC SCH ×2 (09:33→22:01)
[2016-06-11] MEDS: INSULIN ASPART 100 UNITS/ML 3 ML PEN SC SCH ×4 (09:33→22:02)
--- NOTE | 2016-06-11 13:17 | Progress Note ---
Internal Med Progress Note Date of Service: June 11, 2016. Provider Documentation: SUBJECTIVE: The patient was seen and examined Admitted with Abdominal swelling and pain Still has the pain but very minimal S/P paracentesis-8 liters on 06/08/16 Bowel not moved yet as of 06/11/16 Passing gas Ambulating normally OBJECTIVE: Vital Signs-as noted below Exam: General-Moderate distress at rest Eyes-normal ENT-normal Neck-supple Lungs-clear to auscultate bilaterally Heart-regular,no murmur Abdomen-Distended,tense,tender ,bowel sound remains sluggish Extremities-2+ edema bilaterally Neuro-AAOx3 Generally weak Lab data as noted below. ASSESSMENT & PLAN: Recurrent ascites:Require frequent paracentesis chronic abdominal pain complaints hx cirrhosis 2 to NAFLD multiple admissions/ER visits possible noncompliance Patient's ascitic fluid consistently of transudative nature since 2013. No signs or symptoms suggestive of SBP now-No antibiotic S/p Paracentesis-Total of 8 liters taken out Palliative Care consulted -appreciate Input Patient wants to keep his appointment at [facility] for possible TIPS procedure Bowel not moved since yesterday Has been on Lactulose TID Will give MOM and Dulcolax Suppository and Colace Home after bowel movement Hypertension, stable. DM2, insulin requiring suboptimal control as of recent HgA1c patient's blood sugar currently on the lower side Basal insulin, ISS BG goal 140-180. Carb count coverage indicated for suboptimal blood sugar control. Chronic anemia, thrombocytopenia 2 to cirrhosis H/O PE/DVT status post IVC filter off anticoagulation 2 to bleeding risk Seizure disorder, stable on meds. Possible drug seeking behavior. PT/OT evaluation DVT prophylaxis, SCDs. RE thrombocytopenia Full code. Likely home today after bowel movement Vital Signs: Date Time Temp Pulse Resp B/P Pulse Ox O2 Delivery O2 Flow Rate FiO2 06/11/16 08:00 Room Air 06/11/16 06:51 36.7 68 18 107/69 91 Room Air 06/11/16 00:50 Room Air 06/10/16 22:54 36.9 67 18 107/62 94 Room Air 06/10/16 17:43 93 Room Air 06/10/16 14:51 36.7 68 18 103/61 93 Room Air Lab Results: Results Past 24 Hours Test 06/10/16 16:42 06/10/16 20:15 06/11/16 05:45 06/11/16 07:51 Range/Units Bedside Glucose 251 185 205 70-99 mg/dl White Blood Count 4.82 4.8-10.8 K/uL Red Blood Count 3.61 4.7-6.1 M/uL Hemoglobin 9.7 14.0-18.0 g/dL Hematocrit 29.1 42-52 % Mean Corpuscular Volume 80.6 80-100 fL Mean Corpuscular Hemoglobin 26.9 25-34 pg Mean Corpuscular Hemoglobin Concent 33.3 32-36 g/dl Platelet Count 61 130-400 K/uL Neutrophils (%) (Auto) 66.4 % Lymphocytes (%) (Auto) 16.0 % Monocytes (%) (Auto) 12.0 % Eosinophils (%) (Auto) 4.6 % Basophils (%) (Auto) 0.8 % Neutrophils # (Auto) 3.20 1.4-6.5 K/uL Lymphocytes # (Auto) 0.77 1.2-3.4 K/uL Monocytes # (Auto) 0.58 0.11-0.59 K/uL Eosinophils # (Auto) 0.22 0-0.5 K/uL Basophils # (Auto) 0.04 0-0.2 K/uL RDW Standard Deviation 65.8 36.4-46.3 fL RDW Coefficient of Variation 22.3 11.5-14.5 % Immature Granulocyte % (Auto) 0.2 % Immature Granulocyte # (Auto) 0.01 0.00-0.02 K/uL Platelet Estimate DECREASED Large Platelets 1+ Anisocytosis PRESENT Sodium Level 138 136-145 mmol/L Potassium Level 4.1 3.5-5.1 mmol/L Chloride Level 103 98-107 mmol/L Carbon Dioxide Level 30 21-32 mmol/L Anion Gap 5.0 3-11 mmol/L Blood Urea Nitrogen 12 7-18 mg/dl Creatinine 1.10 0.60-1.40 mg/dl Est Creatinine Clear Calc Drug Dose 82.7 ml/min Estimated GFR () 82.9 Estimated GFR (Non- 71.6 BUN/Creatinine Ratio 10.7 10-20 Random Glucose 225 70-99 mg/dl Calcium Level 8.1 8.5-10.1 mg/dl Test 06/11/16 11:48 Range/Units Bedside Glucose 283 70-99 mg/dl
[2016-06-11] MEDS ORDERED: MAGNESIUM HYDROXIDE SUSP 30 ML UDC PO ONE (13:45)
[2016-06-11] MEDS ORDERED: DOCUSATE SODIUM 100 MG CAP PO ONE (13:45)
[2016-06-11 14:40] VITALS: BP 104/56; PULSE 78; TEMP 36.7; O2SAT 96
[2016-06-11] MEDS ORDERED: MINERAL OIL ENEMA 133 ML BTL PR STA (17:43)
[2016-06-11] MEDS: PYRIDOXINE HCL 50 MG TAB PO SCH (22:02)
[2016-06-11 23:11] VITALS: BP 108/70; PULSE 62; TEMP 36.8; O2SAT 95
[2016-06-12] MEDS: LEVOTHYROXINE 75 MCG TAB PO SCH (06:39)
[2016-06-12 06:49] VITALS: BP 90/51; PULSE 61; TEMP 36.7; O2SAT 94
[2016-06-12] MEDS: PROPRANOLOL HCL 10 MG TAB PO SCH ×2 (08:00→21:18)
[2016-06-12] MEDS: SPIRONOLACTONE 100 MG TAB PO SCH (08:00)
[2016-06-12 08:13] LABS: MEAN CORPUSCULAR HGB CONC 32.2 g/dl (32-36)
[2016-06-12 08:23] LABS: HEMATOCRIT 32.6 % (42-52); MEAN CELL VOLUME 81.1 fL (80-100); MEAN CORPUSCULAR HEMOGLOBIN 26.1 pg (25-34); RED BLOOD COUNT 4.02 M/uL (4.7-6.1); WHITE BLOOD COUNT 5.27 K/uL (4.8-10.8)
[2016-06-12] MEDS: FUROSEMIDE 20 MG TAB PO SCH ×2 (08:25→16:23)
[2016-06-12] MEDS: ONDANSETRON INJ 2 MG/ML 2 ML VIAL IV PRN ×2 (08:27→16:21)
[2016-06-12] MEDS: HYDROmorphone HCL 2 MG TAB PO PRN ×3 (08:27→21:26)
[2016-06-12] MEDS: RIFAXIMIN TAB 550 MG TAB PO SCH ×2 (08:28→21:17)
[2016-06-12] MEDS: PANTOprazole SOD 40 MG TAB PO SCH ×2 (08:28→21:17)
[2016-06-12] MEDS: LACTULOSE SYRUP 20 GM/30 ML UDC PO SCH ×4 (08:28→20:00)
[2016-06-12] MEDS: FERROUS SULFATE 325 MG TAB PO SCH ×2 (08:28→21:16)
[2016-06-12] MEDS: ESCITALOPRAM OXALATE 10 MG TAB PO SCH (08:28)
[2016-06-12] MEDS: LEVETIRACETAM 500 MG TAB PO SCH ×2 (08:28→21:17)
[2016-06-12] MEDS: PREGABALIN 75 MG CAP PO SCH ×2 (08:30→21:25)
[2016-06-12 08:39] LABS: BUN/CREATININE RATIO 11.4 (10-20); POTASSIUM 3.8 mmol/L (3.5-5.1)
[2016-06-12] MEDS: INSULIN GLARGINE SOLOSTAR 100 UNITS/ML 3 ML PEN SC SCH ×2 (08:39→21:25)
[2016-06-12] MEDS: INSULIN ASPART 100 UNITS/ML 3 ML PEN SC SCH ×4 (08:39→21:25)
[2016-06-12 08:51] LABS: CALCIUM 8.4 mg/dl (8.5-10.1)
[2016-06-12 09:00] LABS: ANISOCYTOSIS PRESENT; BASO % 0.9 %; BASO ABS # 0.05 K/uL (0-0.2); COMPLETE YES; EOS % 5.9 %; IG% 0.2 %; LYMPH % 17.8 %; LYMPH ABS # 0.94 K/uL (1.2-3.4); MONO % 12.5 %; NEUT % 62.7 %; PLATELET COUNT 65 K/uL (130-400); PLT ESTIMATE DECREASED
[2016-06-12] MEDS ORDERED: BISACODYL 10 MG SUPP PR STA (10:21)
--- NOTE | 2016-06-12 11:34 | DIAGNOSTIC IMAGING REPORT ---
KUB CLINICAL HISTORY: Abdominal pain. Possible bowel obstruction. COMPARISON STUDY: 05/05/2016 FINDINGS: There is no pathologic bowel dilatation. An IVC filter is again visualized unchanged in orientation. There are postsurgical changes present within the lower lumbar spine. The S1 pedicle screws remain fractured. IMPRESSION: No evidence of pathologic bowel dilatation. Electronically signed by: Pawan Garner M.D. 06/12/2016 11:33 AM Dictated Date/Time: 06/12/2016 11:19 AM
[2016-06-12] MEDS ORDERED: GABAPENTIN 100 MG CAP PO ONE (12:43)
[2016-06-12] MEDS ORDERED: MAGNESIUM HYDROXIDE SUSP 30 ML UDC PO ONE (12:50)
[2016-06-12] MEDS ORDERED: DOCUSATE SODIUM 100 MG CAP PO ONE (12:50)
--- NOTE | 2016-06-12 14:24 | Progress Note ---
Internal Med Progress Note Date of Service: June 12, 2016. Provider Documentation: SUBJECTIVE: The patient was seen and examined Admitted with Abdominal swelling and pain Still has the pain but very minimal S/P paracentesis-8 liters on 06/08/16 Bowel not moved yet as of 06/11/16 Bowel moved last night Ambulating normally Feels otherwise OK OBJECTIVE: Vital Signs-as noted below Exam: General-Moderate distress at rest Eyes-normal ENT-normal Neck-supple Lungs-clear to auscultate bilaterally Heart-regular,no murmur Abdomen-Distended,tense,tender ,bowel sound remains sluggish Extremities-2+ edema bilaterally Neuro-AAOx3 Generally weak Lab data as noted below. ASSESSMENT & PLAN: Recurrent ascites:Require frequent paracentesis chronic abdominal pain complaints hx cirrhosis 2 to NAFLD multiple admissions/ER visits possible noncompliance Patient's ascitic fluid consistently of transudative nature since 2013. No signs or symptoms suggestive of SBP now-No antibiotic S/p Paracentesis-Total of 8 liters taken out Palliative Care consulted -appreciate Input Patient wants to keep his appointment at [facility] for possible TIPS procedure Has been on Lactulose TID Will give MOM and Dulcolax Suppository and Colace Received Fleet Enema last evening Bowel moved after 2-3 days KUB-nonobstructive Will discharge today Hypertension, stable. DM2, insulin requiring suboptimal control as of recent HgA1c patient's blood sugar currently on the lower side Basal insulin, ISS BG goal 140-180. Carb count coverage indicated for suboptimal blood sugar control. Chronic anemia, thrombocytopenia 2 to cirrhosis Stable H/O PE/DVT status post IVC filter off anticoagulation 2 to bleeding risk Seizure disorder, stable on meds. Possible drug seeking behavior. PT/OT evaluation DVT prophylaxis, SCDs. RE thrombocytopenia Full code. Bowel moved Ambulating well KUB -no obstruction Discharge home Vital Signs: Date Time Temp Pulse Resp B/P Pulse Ox O2 Delivery O2 Flow Rate FiO2 06/12/16 08:00 Room Air 06/12/16 06:49 36.7 61 16 90/51 94 Room Air 06/12/16 00:00 Room Air 06/11/16 23:11 36.8 62 18 108/70 95 Room Air 06/11/16 20:00 Room Air 06/11/16 16:00 Room Air 06/11/16 14:40 36.7 78 20 104/56 96 Room Air Lab Results: Results Past 24 Hours Test 06/11/16 16:51 06/11/16 20:24 06/12/16 07:50 06/12/16 07:54 Range/Units Bedside Glucose 268 221 98 70-99 mg/dl White Blood Count 5.27 4.8-10.8 K/uL Red Blood Count 4.02 4.7-6.1 M/uL Hemoglobin 10.5 14.0-18.0 g/dL Hematocrit 32.6 42-52 % Mean Corpuscular Volume 81.1 80-100 fL Mean Corpuscular Hemoglobin 26.1 25-34 pg Mean Corpuscular Hemoglobin Concent 32.2 32-36 g/dl Platelet Count 65 130-400 K/uL Neutrophils (%) (Auto) 62.7 % Lymphocytes (%) (Auto) 17.8 % Monocytes (%) (Auto) 12.5 % Eosinophils (%) (Auto) 5.9 % Basophils (%) (Auto) 0.9 % Neutrophils # (Auto) 3.30 1.4-6.5 K/uL Lymphocytes # (Auto) 0.94 1.2-3.4 K/uL Monocytes # (Auto) 0.66 0.11-0.59 K/uL Eosinophils # (Auto) 0.31 0-0.5 K/uL Basophils # (Auto) 0.05 0-0.2 K/uL RDW Standard Deviation 67.0 36.4-46.3 fL RDW Coefficient of Variation 22.6 11.5-14.5 % Immature Granulocyte % (Auto) 0.2 % Immature Granulocyte # (Auto) 0.01 0.00-0.02 K/uL Platelet Estimate DECREASED Anisocytosis PRESENT Sodium Level 137 136-145 mmol/L Potassium Level 3.8 3.5-5.1 mmol/L Chloride Level 100 98-107 mmol/L Carbon Dioxide Level 29 21-32 mmol/L Anion Gap 8.0 3-11 mmol/L Blood Urea Nitrogen 11 7-18 mg/dl Creatinine 1.00 0.60-1.40 mg/dl Est Creatinine Clear Calc Drug Dose 91.0 ml/min Estimated GFR () 93.1 Estimated GFR (Non- 80.3 BUN/Creatinine Ratio 11.4 10-20 Random Glucose 104 70-99 mg/dl Calcium Level 8.4 8.5-10.1 mg/dl Test 06/12/16 11:43 Range/Units Bedside Glucose 245 70-99 mg/dl
[2016-06-12 16:20] VITALS: BP 95/67; PULSE 73; TEMP 36.8; O2SAT 93
[2016-06-12] MEDS: DOCUSATE SODIUM 100 MG CAP PO SCH (20:00)
[2016-06-12 21:00] VITALS: BP 109/67
[2016-06-12] MEDS: GABAPENTIN 100 MG CAP PO SCH (21:16)
[2016-06-12] MEDS: PYRIDOXINE HCL 50 MG TAB PO SCH (21:18)
[2016-06-13 00:04] VITALS: BP 97/63; PULSE 71; TEMP 36.7; O2SAT 96
[2016-06-13] MEDS: ONDANSETRON INJ 2 MG/ML 2 ML VIAL IV PRN ×3 (03:13→20:50)
[2016-06-13] MEDS: LEVOTHYROXINE 75 MCG TAB PO SCH (06:18)
[2016-06-13 07:17] LABS: MEAN CORPUSCULAR HGB CONC 33.9 g/dl (32-36)
[2016-06-13 07:28] VITALS: BP 106/64; PULSE 60; TEMP 36.7; O2SAT 98
[2016-06-13 07:28] LABS: HEMATOCRIT 32.2 % (42-52); MEAN CELL VOLUME 81.7 fL (80-100); MEAN CORPUSCULAR HEMOGLOBIN 27.7 pg (25-34); RED BLOOD COUNT 3.94 M/uL (4.7-6.1); WHITE BLOOD COUNT 5.04 K/uL (4.8-10.8)
[2016-06-13 07:45] LABS: CALCIUM 8.3 mg/dl (8.5-10.1); CREATININE 1.1 mg/dl (0.60-1.40); POTASSIUM 4.2 mmol/L (3.5-5.1)
[2016-06-13 07:49] LABS: BASO % 1.6 %; BASO ABS # 0.08 K/uL (0-0.2); COMPLETE YES; IG% 0.2 %; LYMPH % 16.5 %; LYMPH ABS # 0.83 K/uL (1.2-3.4); MONO % 15.5 %; NEUT % 60.2 %; PLATELET COUNT 57 K/uL (130-400); PLT ESTIMATE DECREASED
[2016-06-13] MEDS: LACTULOSE SYRUP 20 GM/30 ML UDC PO SCH ×4 (08:00→20:50)
[2016-06-13] MEDS: DOCUSATE SODIUM 100 MG CAP PO SCH ×2 (08:22→20:51)
[2016-06-13] MEDS: LEVETIRACETAM 500 MG TAB PO SCH ×2 (08:22→20:51)
[2016-06-13] MEDS: GABAPENTIN 100 MG CAP PO SCH ×2 (08:22→20:51)
[2016-06-13] MEDS: PROPRANOLOL HCL 10 MG TAB PO SCH ×2 (08:22→20:00)
[2016-06-13] MEDS: ESCITALOPRAM OXALATE 10 MG TAB PO SCH (08:22)
[2016-06-13] MEDS: SPIRONOLACTONE 100 MG TAB PO SCH (08:22)
[2016-06-13] MEDS: RIFAXIMIN TAB 550 MG TAB PO SCH ×2 (08:22→20:52)
[2016-06-13] MEDS: FERROUS SULFATE 325 MG TAB PO SCH ×2 (08:22→20:50)
[2016-06-13] MEDS: PANTOprazole SOD 40 MG TAB PO SCH ×2 (08:22→20:52)
[2016-06-13] MEDS: FUROSEMIDE 20 MG TAB PO SCH ×2 (08:23→17:41)
[2016-06-13] MEDS: PREGABALIN 75 MG CAP PO SCH ×2 (08:26→20:54)
[2016-06-13] MEDS: INSULIN ASPART 100 UNITS/ML 3 ML PEN SC SCH ×4 (08:29→21:07)
[2016-06-13] MEDS: INSULIN GLARGINE SOLOSTAR 100 UNITS/ML 3 ML PEN SC SCH ×2 (08:30→21:07)
--- NOTE | 2016-06-13 09:09 | Progress Note ---
Internal Med Progress Note Date of Service: June 13, 2016. Provider Documentation: SUBJECTIVE: The patient was seen and examined Admitted with Abdominal swelling and pain S/P paracentesis-8 liters on 06/08/16 Bowel not moved yet as of 06/11/16 Bowel is moving -= at baseline Minimal Abdominal pain ,no nausea and or vomiting OBJECTIVE: Vital Signs-as noted below Exam: General-Moderate distress at rest Eyes-normal ENT-normal Neck-supple Lungs-clear to auscultate bilaterally Heart-regular,no murmur Abdomen-Distended,tense,tender ,bowel sound present Extremities-2+ edema bilaterally Neuro-AAOx3 Generally weak Lab data as noted below. ASSESSMENT & PLAN: Recurrent ascites:Require frequent paracentesis chronic abdominal pain complaints hx cirrhosis 2 to NAFLD multiple admissions/ER visits possible noncompliance Patient's ascitic fluid consistently of transudative nature since 2013. No signs or symptoms suggestive of SBP now-No antibiotic S/p Paracentesis-Total of 8 liters taken out Palliative Care consulted -appreciate Input Patient wants to keep his appointment at [facility] for possible TIPS procedure Has been on Lactulose TID Will give MOM and Dulcolax Suppository and Colace Received Fleet Enema on top of Lactulose KUB-nonobstructive Bowel is moving Will get US abdomen to see if another paracentesis is needed Hypertension, stable. DM2, insulin requiring suboptimal control as of recent HgA1c patient's blood sugar currently on the lower side Basal insulin, ISS BG goal 140-180. Carb count coverage indicated for suboptimal blood sugar control. Chronic anemia, thrombocytopenia 2 to cirrhosis Stable H/O PE/DVT status post IVC filter off anticoagulation 2 to bleeding risk Seizure disorder, stable on meds. Possible drug seeking behavior. PT/OT evaluation DVT prophylaxis, SCDs. RE thrombocytopenia Full code. Bowel moved Ambulating well KUB -no obstruction Was not discharged as he did not have bowel movement and fear of going to hepatic encephalopathy Now the bowel is moving and plan to discharge him today after US abdomen to exclude the need for another paracentesis Vital Signs: Date Time Temp Pulse Resp B/P Pulse Ox O2 Delivery O2 Flow Rate FiO2 06/13/16 08:00 Room Air 06/13/16 07:28 36.7 60 20 106/64 98 Room Air 06/13/16 00:04 36.7 71 20 97/63 96 Room Air 06/13/16 00:00 Room Air 06/12/16 21:00 109/67 06/12/16 20:00 Room Air 06/12/16 16:20 36.8 73 18 95/67 93 Room Air 06/12/16 16:00 Room Air Lab Results: Results Past 24 Hours Test 06/12/16 11:43 06/12/16 16:30 06/12/16 20:40 06/13/16 07:06 Range/Units Bedside Glucose 245 228 249 70-99 mg/dl White Blood Count 5.04 4.8-10.8 K/uL Red Blood Count 3.94 4.7-6.1 M/uL Hemoglobin 10.9 14.0-18.0 g/dL Hematocrit 32.2 42-52 % Mean Corpuscular Volume 81.7 80-100 fL Mean Corpuscular Hemoglobin 27.7 25-34 pg Mean Corpuscular Hemoglobin Concent 33.9 32-36 g/dl Platelet Count 57 130-400 K/uL Neutrophils (%) (Auto) 60.2 % Lymphocytes (%) (Auto) 16.5 % Monocytes (%) (Auto) 15.5 % Eosinophils (%) (Auto) 6.0 % Basophils (%) (Auto) 1.6 % Neutrophils # (Auto) 3.04 1.4-6.5 K/uL Lymphocytes # (Auto) 0.83 1.2-3.4 K/uL Monocytes # (Auto) 0.78 0.11-0.59 K/uL Eosinophils # (Auto) 0.30 0-0.5 K/uL Basophils # (Auto) 0.08 0-0.2 K/uL RDW Standard Deviation 67.5 36.4-46.3 fL RDW Coefficient of Variation 22.5 11.5-14.5 % Immature Granulocyte % (Auto) 0.2 % Immature Granulocyte # (Auto) 0.01 0.00-0.02 K/uL Platelet Estimate DECREASED Red Blood Cell Morphology Unremarkable Sodium Level 137 136-145 mmol/L Potassium Level 4.2 3.5-5.1 mmol/L Chloride Level 102 98-107 mmol/L Carbon Dioxide Level 31 21-32 mmol/L Anion Gap 4.0 3-11 mmol/L Blood Urea Nitrogen 12 7-18 mg/dl Creatinine 1.10 0.60-1.40 mg/dl Est Creatinine Clear Calc Drug Dose 82.7 ml/min Estimated GFR () 82.9 Estimated GFR (Non- 71.6 BUN/Creatinine Ratio 11.0 10-20 Random Glucose 192 70-99 mg/dl Calcium Level 8.3 8.5-10.1 mg/dl
--- NOTE | 2016-06-13 11:16 | DIAGNOSTIC IMAGING REPORT ---
ABDOMEN LIMITED (US) CLINICAL HISTORY: Assess Ascites with Marker if indicated COMPARISON STUDY: Paracentesis ultrasound 06/08/2016. FINDINGS: There is a moderate amount of ascites most pronounced within the left side the abdomen. This is similar to the prior study. IMPRESSION: Moderate ascites. Electronically signed by: Tj Weston M.D. 06/13/2016 11:15 AM Dictated Date/Time: 06/13/2016 11:14 AM
[2016-06-13] MEDS ORDERED: ALBUMIN HUMAN 25% 12.5 GM/50 ML VIAL IV ONE (12:00)
--- NOTE | 2016-06-13 12:51 | Discharge Instructions ---
Discharge Instructions Date of Service June 13, 2016. Admission Reason for Admission: Abdominal Pain Discharge Discharge Diagnosis / Problem: Recurrent Ascites -requires frequent paracentesis Discharge Goals Goal(s): Prevent Disease Progression Activity Recommendations Activity Limitations: resume your previous activity . Instructions / Follow-Up Instructions / Follow-Up Dr Munoz on 06/16/16 at 2:45PM.Please keep your GI appointment Current Hospital Diet Patient's current hospital diet: Diabetes Type 2 Diet, Low Sodium Diet (2gm Na) Discharge Diet Recommended Diet: Low Sodium Diet (2gm Na), Diabetes Type 2 Diet Fluid Restriction: 1500 ml (6 cups) Pending Studies Studies pending at discharge: no Laboratory Results Hemoglobin A1c Test 04/03/16 05:54 Range/Units Estimated Average Glucose 286 mg/dl Hemoglobin A1c 11.6 H 4.5-5.6 % Medical Emergencies . Who to Call and When: Medical Emergencies: If at any time you feel your situation is an emergency, please call 911 immediately. . Non-Emergent Contact Non-Emergency issues call your: Primary Care Provider . Past History Medical & Surgical History: (1) BETANCOURT (nonalcoholic steatohepatitis) (2) Esophageal varices (3) DM2 (diabetes mellitus, type 2) (4) Hypothyroidism (5) End stage liver disease (6) Pulmonary embolism (7) Seizure disorder (8) Portal hypertension (9) S/P lumbar fusion (10) S/P cervical spinal fusion (11) S/P IVC filter (12) S/P T&A (status post tonsillectomy and adenoidectomy) (13) H/O esophagogastroduodenoscopy (14) H/O knee surgery . "Provider Documentation" section prepared by Ksenia Hanks. . VTE Core Measure Inpt VTE Proph given/why not?: SCD's
[2016-06-13] MEDS: HYDROmorphone HCL 2 MG TAB PO PRN ×2 (12:53→17:48)
--- NOTE | 2016-06-13 14:56 | DIAGNOSTIC IMAGING REPORT ---
ULTRASOUND GUIDED THERAPEUTIC PARACENTESIS CLINICAL HISTORY: Ascites. COMPARISON STUDY: Abdominal ultrasound performed earlier today. PROCEDURE: The risks, benefits, and alternatives to the procedure were discussed with the patient including the risk of bleeding, infection and injury to adjacent structures. The patient agreed to the procedure and informed written consent was obtained. Following real-time ultrasound localization, the skin of the left lower quadrant was prepped and draped. Following local anesthesia with Xylocaine, the sheath paracentesis needle was inserted and approximately 5 liters of straw-colored fluid was removed by vacuum suction. The patient tolerated the procedure well and no immediate complications were evident. IMPRESSION: Ultrasound-guided therapeutic paracentesis with removal of 5 liters of ascites. Electronically signed by: Luisito Obregon M.D. 06/13/2016 2:54 PM Dictated Date/Time: 06/13/2016 2:54 PM
[2016-06-13] MEDS: ALBUMIN HUMAN 25% 12.5 GM/50 ML VIAL IV SCH ×2 (15:10→16:44)
[2016-06-13 15:29] VITALS: BP 118/72; PULSE 60; TEMP 36.5; O2SAT 99
[2016-06-13] MEDS ORDERED: NURSING VERBAL MED ORDER ONE ×2 (15:45→17:45)
[2016-06-13 16:11] VITALS: BP 102/60; PULSE 50
[2016-06-13 17:05] VITALS: BP 118/72; PULSE 72
[2016-06-13] MEDS ORDERED: HYDROmorphone HCL 2 MG TAB PO ONE (18:00)
[2016-06-13 20:30] VITALS: BP 95/53; PULSE 55
[2016-06-13] MEDS: PYRIDOXINE HCL 50 MG TAB PO SCH (20:52)
[2016-06-14] VITALS: BP 107/63; PULSE 76; TEMP 36.8; O2SAT 97; O2SAT 99
[2016-06-14] MEDS: ONDANSETRON INJ 2 MG/ML 2 ML VIAL IV PRN ×2 (04:49→12:22)
[2016-06-14] MEDS: LEVOTHYROXINE 75 MCG TAB PO SCH (04:49)
[2016-06-14 07:40] VITALS: BP_SYST 100; BP_SYST 106; BP_DIAS 57; BP_DIAS 67; PULSE 74; TEMP 36.6; O2SAT 90
[2016-06-14] MEDS: PROPRANOLOL HCL 10 MG TAB PO SCH (07:53)
[2016-06-14] MEDS: FERROUS SULFATE 325 MG TAB PO SCH (07:53)
[2016-06-14] MEDS: PANTOprazole SOD 40 MG TAB PO SCH (07:53)
[2016-06-14] MEDS: GABAPENTIN 100 MG CAP PO SCH (07:53)
[2016-06-14] MEDS: ESCITALOPRAM OXALATE 10 MG TAB PO SCH (07:53)
[2016-06-14] MEDS: DOCUSATE SODIUM 100 MG CAP PO SCH (07:53)
[2016-06-14] MEDS: RIFAXIMIN TAB 550 MG TAB PO SCH (07:53)
[2016-06-14] MEDS: LEVETIRACETAM 500 MG TAB PO SCH (07:53)
[2016-06-14] MEDS: SPIRONOLACTONE 100 MG TAB PO SCH (07:53)
[2016-06-14] MEDS: FUROSEMIDE 20 MG TAB PO SCH (07:53)
[2016-06-14] MEDS: LACTULOSE SYRUP 20 GM/30 ML UDC PO SCH ×2 (07:54→12:00)
[2016-06-14] MEDS: PREGABALIN 75 MG CAP PO SCH (07:56)
[2016-06-14 08:31] LABS: HEMATOCRIT 32.7 % (42-52); MEAN CORPUSCULAR HEMOGLOBIN 27.4 pg (25-34); RED BLOOD COUNT 3.94 M/uL (4.7-6.1)
[2016-06-14] MEDS: INSULIN GLARGINE SOLOSTAR 100 UNITS/ML 3 ML PEN SC SCH (08:34)
[2016-06-14] MEDS: INSULIN ASPART 100 UNITS/ML 3 ML PEN SC SCH ×2 (08:34→12:21)
[2016-06-14 08:53] LABS: BUN/CREATININE RATIO 9.5 (10-20); CREATININE 1.2 mg/dl (0.60-1.40)
[2016-06-14 08:57] LABS: ANISOCYTOSIS PRESENT; BASO % 0.4 %; BASO ABS # 0.02 K/uL (0-0.2); CALCIUM 8.2 mg/dl (8.5-10.1); COMPLETE YES; EOS % 4.8 %; LYMPH % 13.3 %; LYMPH ABS # 0.61 K/uL (1.2-3.4); MONO % 14.8 %; NEUT % 66.7 %; PLATELET COUNT 46 K/uL (130-400); PLT ESTIMATE DECREASED
[2016-06-14 14:40] VITALS: BP 102/72; PULSE 72; TEMP 36.6; O2SAT 99
--- NOTE | 2016-06-14 15:19 | Progress Note ---
Medicine Progress Note Date & Time of Visit: June 14, 2016 at 15:15. Subjective RN reports patient ambulating in the room with no problems had good bm today seen sleeping but easily rousable comfortable, alert states he feels better today denies abdominal pain no chest pain, dyspnea, dizziness feels somewhat weak but states he feels this way after paracentesis states he is ok for discharge today Objective Last 8 Hrs Date Time Temp Pulse Resp B/P Pulse Ox O2 Delivery O2 Flow Rate FiO2 06/14/16 14:40 36.6 72 20 102/72 99 Room Air 06/14/16 08:00 Room Air 06/14/16 07:40 36.6 74 18 100/57 90 Room Air 106/67 Physical Exam: General- oriented x 3 not in distress speaks in sentences with no effort Eyes- EOMI, anicteric Neck- supple, no JVD, no adenopathy Lungs- clear to auscultation b/l Heart- normal rate, regular rhythm; no murmurs Abdomen- normal bowel sounds, non distended, soft, nontender Extremities- no pretibial edema, no calf tenderness; peripheral pulses intact Neuro- alert, oriented x 3; no gross focal deficits Skin- warm & dry Laboratory Results: Last 24 Hours Test 06/13/16 16:18 06/13/16 20:29 06/14/16 07:45 06/14/16 08:12 Bedside Glucose 257 mg/dl 228 mg/dl 229 mg/dl White Blood Count 4.60 K/uL Red Blood Count 3.94 M/uL Hemoglobin 10.8 g/dL Hematocrit 32.7 % Mean Corpuscular Volume 83.0 fL Mean Corpuscular Hemoglobin 27.4 pg Mean Corpuscular Hemoglobin Concent 33.0 g/dl Platelet Count 46 K/uL Neutrophils (%) (Auto) 66.7 % Lymphocytes (%) (Auto) 13.3 % Monocytes (%) (Auto) 14.8 % Eosinophils (%) (Auto) 4.8 % Basophils (%) (Auto) 0.4 % Neutrophils # (Auto) 3.07 K/uL Lymphocytes # (Auto) 0.61 K/uL Monocytes # (Auto) 0.68 K/uL Eosinophils # (Auto) 0.22 K/uL Basophils # (Auto) 0.02 K/uL RDW Standard Deviation 68.2 fL RDW Coefficient of Variation 22.5 % Immature Granulocyte % (Auto) 0.0 % Immature Granulocyte # (Auto) 0.00 K/uL Platelet Estimate DECREASED Anisocytosis PRESENT Sodium Level 138 mmol/L Potassium Level 4.0 mmol/L Chloride Level 102 mmol/L Carbon Dioxide Level 30 mmol/L Anion Gap 6.0 mmol/L Blood Urea Nitrogen 11 mg/dl Creatinine 1.20 mg/dl Est Creatinine Clear Calc Drug Dose 75.8 ml/min Estimated GFR () 74.7 Estimated GFR (Non- 64.4 BUN/Creatinine Ratio 9.5 Random Glucose 218 mg/dl Calcium Level 8.2 mg/dl Test 06/14/16 11:05 Bedside Glucose 242 mg/dl Assessment & Plan Recurrent ascites - s/p repeat paracentesis yesterday 5 liters of fluid given given albumin - bp stable overall feeling better for discharge today - continue usual medications Hypertension - stable DM2, insulin requiring ISS given Chronic anemia, thrombocytopenia 2 to cirrhosis stable overall monitor Plt as outpatient H/O PE/DVT status post IVC filter off anticoagulation 2 to bleeding risk Seizure disorder stable Bowel moved Disposition d/c home today ff up with PCP on Sun Current Inpatient Medications: Current Inpatient Medications Medications (Trade) Dose Ordered Sig/Ryan Route Start Time Stop Time Status Last Admin Dose Admin Miscellaneous (Iv Fluids Completed) 1 ea PRN PRN N/A 06/07/16 22:45 06/07/17 22:44 06/13/16 16:12 1 EA Insulin Aspart (novoLOG ASPART) SLIDING SCALE If C... ACHS SC 06/08/16 07:00 07/08/16 06:59 06/14/16 12:21 7 UNITS Glucose (Glucose 40% Gel) 15-30 GRAMS 15 GRAMS... UD PRN PO 06/07/16 23:15 07/07/16 23:14 Glucose (Glucose Chew Tab) 4-8 Tablets 4 Tabl... UD PRN PO 06/07/16 23:15 07/07/16 23:14 Dextrose (Dextrose 50% 50ML Syringe) 25-50ML OF 50% DW IV FOR... UD PRN IV 06/07/16 23:15 07/07/16 23:14 Glucagon (Glucagon Inj) 1 mg UD PRN SQ 06/07/16 23:15 07/07/16 23:14 Ondansetron HCl (Zofran Inj) 4 mg Q6H PRN IV 06/07/16 23:15 07/07/16 23:14 06/14/16 12:22 4 MG Escitalopram Oxalate (Lexapro Tab) 10 mg DAILY PO 06/08/16 09:00 07/08/16 08:59 06/14/16 07:53 10 MG Furosemide (Lasix Tab) 20 mg BID17 PO 06/08/16 09:00 07/08/16 08:59 06/14/16 07:53 20 MG Insulin Glargine (Lantus Solostar Pen) 10 unit BID SC 06/08/16 09:00 07/08/16 08:59 06/14/16 08:34 10 UNIT Levetiracetam (Keppra Tab) 500 mg BID PO 06/08/16 08:00 07/08/16 07:59 06/14/16 07:53 500 MG Levothyroxine Sodium (Synthroid Tab) 75 mcg DAILYBB PO 06/08/16 06:30 07/08/16 06:29 06/14/16 04:49 75 MCG Pantoprazole Sodium (Protonix Tab) 40 mg BID PO 06/08/16 09:00 07/08/16 08:59 06/14/16 07:53 40 MG Propranolol HCl (Inderal Tab) 10 mg BID PO 06/08/16 09:00 07/08/16 08:59 06/14/16 07:53 10 MG Rifaximin (Xifaxan Tab) 550 mg BID PO 06/08/16 08:00 07/08/16 07:59 06/14/16 07:53 550 MG Spironolactone (Aldactone Tab) 100 mg DAILY PO 06/08/16 09:00 07/08/16 08:59 06/14/16 07:53 100 MG Ferrous Sulfate (Feosol Tab) 325 mg BID PO 06/08/16 09:00 07/08/16 08:59 06/14/16 07:53 325 MG Pyridoxine HCl (Vitamin B-6 Tab) 25 mg HS PO 06/08/16 21:00 07/08/16 20:59 06/13/16 20:52 25 MG Hydromorphone HCl (Dilaudid Tab) 4 mg TID PRN PO 06/08/16 08:00 06/22/16 07:59 06/13/16 17:48 4 MG Docusate Sodium (coLACE CAP) 100 mg BID PO 06/12/16 20:00 07/12/16 19:59 06/14/16 07:53 100 MG Gabapentin (Neurontin Cap) 100 mg BID PO 06/12/16 20:00 07/12/16 19:59 06/14/16 07:53 100 MG Lactulose (Chronulac Syrup) 20 gm QID PO 06/12/16 17:00 07/12/16 16:59 06/14/16 07:54 20 GM
--- NOTE | 2016-06-14 15:23 | Discharge Summary ---
Discharge Summary Date of Service June 14, 2016. Discharge Summary Admission Date: June 07, 2016 at 22:38 Discharge Date: June 14, 2016 Principal Diagnosis: Recurrent ascites, Liver Cirrhosis Secondary Diagnoses/Problems: Please refer to hospital course below. Procedures: s/p Paracentesis (06/08 and ) Pending Studies/Follow-Up: please monitor platelet level; please refer to hospital course below for further details. Medication Reconciliation Continued Medications: Diphenhydramine Hcl (Sleep) (Diphenhydramine Hcl) 50 Mg Tab 25 MG PO BID PRN for Itching for 30 Days, #30 TAB 1 Refill Escitalopram (Lexapro) 10 Mg Tab 10 MG PO DAILY, TAB Ferrous Sulfate (Kp Ferrous Sulfate) 325 Mg Tab 325 MG PO BID, TAB Furosemide (Lasix) 20 Mg Tab 20 MG PO BID, TAB Hydromorphone Hcl (Dilaudid) 4 Mg Tab 4 MG PO Q8 for Pain for 2 Days, #6 TAB Insulin Aspart (Novolog Penfill) 100 Unit/Ml Inj SQ TIDM via SSI Insulin Aspart (Novolog) 100 Units/Ml Inj 10 UNITS SQ TIDM Insulin Glargine (Lantus) 100 Unit/Ml Inj 32 UNITS SC HS, VIAL Lactulose (Chronulac) 10 Gm/15 Ml Syrp 20 GM PO TID Levetiractam (Levetiracetam) 500 Mg Tab 500 MG PO AMHS Levothyroxine Sodium (Synthroid) 75 Mcg Tab 75 MCG PO DAILY, TAB Magnesium Oxide (Mag-Ox) 400 Mg Tab 400 MG PO BID Ondasetron Odt (Zofran Odt) 4 Mg Tab 4 MG SL Q6H PRN for Nausea or Vomiting, TAB Pantoprazole (Protonix) 40 Mg Tab 40 MG PO BID, TAB Pregabalin (Lyrica) 75 Mg Cap 75 MG PO UD, CAP BID FOR 1 WEEK, THEN ONCE DAILY THEN STOP Propranolol (Inderal) 10 Mg Tab 10 MG PO BID, TAB Pyridoxine Hcl (Vitamin B-6) 25 Mg Tab 25 MG PO HS Rifaximin (Xifaxan) 550 Mg Tab 550 MG PO AMHS ONE AT BREAKFAST AND ONE AT SUPPER. Spironolactone (Aldactone) 100 Mg Tab 1 TAB PO DAILY for 30 Days, #30 TAB 11 Refills Triamcinolone Acet (Aristocort 0.1%) 90 Appln/30 Gm Cr 1 APPL EXT BID PRN for dermatitis Admission Information HPI (per Admitting provider): DATE OF ADMISSION: 06/07/2016 PRIMARY CARE DOCTOR: Dr. Munoz Hx obtained from px and records. CHIEF COMPLAINT: Abdominal distention and lower extremity swelling. HISTORY OF PRESENT ILLNESS: Medical history is significant for cirrhosis secondary to non-alcoholic fatty liver disease, hypertension, chronic anemia (baseline with hemoglobin of 10), DM2 insulin requiring, history of seizure disorder, history of PE/DVT sp IVC filter placement. chronic pain on narcotics Recent confinement last month for recurrent ascites secondary to BETANCOURT status post paracentesis. Ascitic fluid was transudative. Since admission, the patient has had 2 ER visits for variety of issues. Few days history of increasing achy abdominal pain going to the chest and left arm with shortness of breath, dry cough sx. No fever. Some chills. Increased abdominal distention and katharine leg swelling. Patient claims to be compliant with fluid restriction and home meds. Physical Exam (per Admitting): VITAL SIGNS: Blood pressure was noted to be 124/80, pulse rate 88, RR 26, T 37 , O2 sats 92 on room air. GENERAL: Noted to be chronically ill, anxious and uncomfortable, in no respiratory distress. SKIN: Pallor. HEENT: partial alopecia, pale palpebral conjunctivae. Dry mucosa. NECK: No JVD, supple. CHEST: Decreased breath sounds. HEART: Regular rate and rhythm. ABDOMEN: Abdominal distention, nonspecific tenderness on light palpation. EXTREMITIES: Bilateral lower extremity edema, no tenderness. NEUROLOGIC: No gross focality. Hospital Course Recurrent ascites - history of BETANCOURT Cirrhosis -s/p Paracentesis 06/08/16: 8 liters 06/13/16: 5 liters given albumin IV with paracentesis no SBP - bp stable overall clinically improved - continue usual medications - ff up with GI as outpatient for possible TIPS procedure in July Hypertension - stable DM2, insulin requiring - Sliding Scale given Chronic anemia, thrombocytopenia 2 to cirrhosis stable overall monitor Plt as outpatient H/O PE/DVT status post IVC filter off anticoagulation 2 to bleeding risk Seizure disorder stable Disposition d/c home ff up with PCP in 1 week ff up with GI as scheduled Total time spent on discharge = This includes examination of the patient, discharge planning, medication reconciliation, and communication with other providers. Discharge Instructions Discharge Instructions Date of Service June 13, 2016. Admission Reason for Admission: Abdominal Pain Discharge Discharge Diagnosis / Problem: Recurrent Ascites -requires frequent paracentesis Discharge Goals Goal(s): Prevent Disease Progression Activity Recommendations Activity Limitations: resume your previous activity . Instructions / Follow-Up Instructions / Follow-Up Dr Munoz on 06/16/16 at 2:45PM.Please keep your GI appointment Current Hospital Diet Patient's current hospital diet: Diabetes Type 2 Diet, Low Sodium Diet (2gm Na) Discharge Diet Recommended Diet: Low Sodium Diet (2gm Na), Diabetes Type 2 Diet Fluid Restriction: 1500 ml (6 cups) Pending Studies Studies pending at discharge: no Laboratory Results Hemoglobin A1c Test 04/03/16 05:54 Range/Units Estimated Average Glucose 286 mg/dl Hemoglobin A1c 11.6 H 4.5-5.6 % Medical Emergencies . Who to Call and When: Medical Emergencies: If at any time you feel your situation is an emergency, please call 911 immediately. . Non-Emergent Contact Non-Emergency issues call your: Primary Care Provider . Past History Medical & Surgical History: (1) BETANCOURT (nonalcoholic steatohepatitis) (2) Esophageal varices (3) DM2 (diabetes mellitus, type 2) (4) Hypothyroidism (5) End stage liver disease (6) Pulmonary embolism (7) Seizure disorder (8) Portal hypertension (9) S/P lumbar fusion (10) S/P cervical spinal fusion (11) S/P IVC filter (12) S/P T&A (status post tonsillectomy and adenoidectomy) (13) H/O esophagogastroduodenoscopy (14) H/O knee surgery . "Provider Documentation" section prepared by Ksenia Hanks. . VTE Core Measure Inpt VTE Proph given/why not?: SCD's
[2016-06-14 15:51] VITALS: BP 102/72; PULSE 72; TEMP 36.6; O2SAT 99
[2016-07-01] MEDS ORDERED: MAGN400T5 PO (01:36)
[2016-07-01] MEDS ORDERED: DIPH50TA10 PO (02:00)
[2016-07-01] MEDS ORDERED: TRMCR130WC EXT (03:58)
[2016-07-01] MEDS ORDERED: LACT10SO17 PO (04:04)
[2016-07-01] MEDS ORDERED: PROP10TA7 PO (04:52)
[2016-07-01] MEDS ORDERED: PYRI25TA9 PO (04:52)
[2016-07-01] MEDS ORDERED: FURO-85 PO (05:55)
[2016-07-01] MEDS ORDERED: LEVO75TA PO (12:02)
[2016-07-01] MEDS ORDERED: ONDA4TAB10 SL (12:02)
[2016-07-01] MEDS ORDERED: RIFA550T2 PO (13:45)
[2016-07-01] MEDS ORDERED: FERR1TAB13 PO (14:58)
[2016-07-01] MEDS ORDERED: INSDGI SC (16:08)
[2016-07-01] MEDS ORDERED: LEVE500T PO (16:08)
[2016-07-01] MEDS ORDERED: PHARMACY GLYCEMIC MGMT CONSULT STA (21:03)
[2016-07-01] MEDS ORDERED: ALBUMIN HUMAN 25% 12.5 GM/50 ML VIAL IV PRN (21:15)
[2016-07-01] MEDS ORDERED: INSULIN ASPART 100 UNITS/ML 3 ML PEN SC SCH (22:00)
[2016-07-02] MEDS ORDERED: NYSTATIN SUSP 500,000 U/5 ML UDC PO SCH (08:00)
[2016-08-22] MEDS ORDERED: INSDGI SC (09:03)
[2016-08-22] MEDS ORDERED: MRLP17 PO (09:03)
[2016-08-29] MEDS ORDERED: POLY335019 PO (12:27)
[2016-08-29] MEDS ORDERED: INSDGI SC (12:27)
[2016-09-18] MEDS ORDERED: DIPH25CA5 PO (10:22)
[2016-11-06] MEDS ORDERED: CLIN300C2 PO (14:29)
[2016-11-06] MEDS ORDERED: LCTX PO (14:29)
[2016-11-18] MEDS ORDERED: CLIN300C2 PO (10:23)
[2016-11-23] MEDS ORDERED: SODIENE PR (07:52)
[2016-11-23] MEDS ORDERED: SENN-65 PO (07:52)
[2016-11-23] MEDS ORDERED: DOCU100C31 PO (07:52)
[2016-11-23] MEDS ORDERED: BISA10SU7 PR (07:52)
[2016-11-23] MEDS ORDERED: MOML PO (07:52)
[2016-11-23] MEDS ORDERED: GLGKIT SC (07:54)
[2016-11-23] MEDS ORDERED: [UNRECOGNIZED DRUG - CODE] PO (07:54)
== END 2016-06-14 16:52 | disposition home or self-care (01) ==
LOC: ENRESERVDT → ENRESERVTM → EDBD 18:11 → C.EDA 18:12 → C.MS4W 22:38
PROVIDERS: ADMIT Internal Medicine; ATTEND Internal Medicine
DX: R18.8 Other ascites (principal); Z51.5 Encounter for palliative care; I10 Essential (primary) hypertension; E11.9 Type 2 diabetes mellitus without complications; D69.6 Thrombocytopenia, unspecified; E03.9 Hypothyroidism, unspecified; K74.60 Unspecified cirrhosis of liver; E78.5 Hyperlipidemia, unspecified; D64.9 Anemia, unspecified; K72.90 Hepatic failure, unspecified without coma; G40.909 Epilepsy, unspecified, not intractable, without status epilepticus; K75.81 Nonalcoholic steatohepatitis (NASH); Z79.4 Long term (current) use of insulin; Z86.718 Personal history of other venous thrombosis and embolism; Z86.711 Personal history of pulmonary embolism; Z96.659 Presence of unspecified artificial knee joint; Z98.1 Arthrodesis status; Z82.49 Family history of ischemic heart disease and other diseases of the circulatory system; Z80.3 Family history of malignant neoplasm of breast

== ENCOUNTER 2016-07-01 17:51 | Observation (INO) | payer OTHER ==
[~2016-07-01] VITALS: Ht 182.9 cm; Wt 88.3 kg
[~2016-07-01 17:51] MED LIST changes: +DIPH50TA10 PO; +FERR1TAB13 PO; +FURO-85 PO; +INSDGI SC; +LACT10SO17 PO; +LEVE500T PO; +LEVO75TA PO; +MAGN400T5 PO; +ONDA4TAB10 SL; +PROP10TA7 PO; +PYRI25TA9 PO; +RIFA550T2 PO; +TRMCR130WC EXT
--- NOTE | 2016-07-01 18:32 | DIAGNOSTIC IMAGING REPORT ---
SINGLE VIEW CHEST CLINICAL HISTORY: Dyspnea. FINDINGS: An AP, portable, upright chest radiograph is compared to study dated 06/07/2016 and correlated with chest CT dated 04/29/2016. The examination is degraded by portable technique. The cardiomediastinal silhouette is unremarkable. There are low lung volumes and bibasilar atelectasis. No airspace consolidation is seen typical for pneumonia and there is no large pleural effusion. No pneumothorax is identified. The skeletal structures are osteopenic. The bony thorax is grossly intact. Fusion hardware is partially imaged in the lower cervical spine. IMPRESSION: Low lung volumes and bibasilar atelectasis. There is no acute cardiopulmonary abnormality. Electronically signed by: Leonardo De La Fuente M.D. 07/01/2016 6:31 PM Dictated Date/Time: 07/01/2016 6:29 PM
[2016-07-01] MEDS ORDERED: PANT1TAB48 PO (18:52)
[2016-07-01 18:56] LABS: URINE APPEARANCE CLEAR (CLEAR); URINE BILIRUBIN NEG (NEG); URINE COLOR DK YELLOW; URINE NITRITE NEG (NEG); URINE PH 5.5 (4.5-7.5); URINE SPECIFIC GRAVITY 1.015 (1.000-1.030); UROBILINOGEN NEG (NEG)
[2016-07-01 18:58] LABS: MANUAL MICROSCOPIC REQUIRED? NO; REVIEW REQ? NO
[2016-07-01 19:33] LABS: MEAN CELL VOLUME 82.2 fL (80-100); MEAN CORPUSCULAR HEMOGLOBIN 27.9 pg (25-34); RED BLOOD COUNT 4.26 M/uL (4.7-6.1); WHITE BLOOD COUNT 5.72 K/uL (4.8-10.8)
[2016-07-01] MEDS ORDERED: ONDANSETRON INJ 2 MG/ML 2 ML VIAL IV STA (19:36)
[2016-07-01] MEDS ORDERED: HYDROmorphone HCL 2 MG TAB PO STA (19:36)
[2016-07-01 19:41] LABS: INR 1.3 (0.9-1.1); PARTIAL THROMBOPLASTIN RATIO 1.2; PROTHROMBIN TIME (PATIENT) 14.3 SECONDS (9.0-12.0)
[2016-07-01] MEDS ORDERED: HYDR4TAB2 PO (19:41)
[2016-07-01] MEDS ORDERED: NYSS/ PO (19:41)
[2016-07-01] MEDS ORDERED: SPR/100 PO (19:52)
[2016-07-01 19:53] LABS: BASO % 0.5 %; BASO ABS # 0.03 K/uL (0-0.2); COMPLETE YES; EOS % 1.4 %; IG% 0.2 %; LYMPH % 9.3 %; LYMPH ABS # 0.53 K/uL (1.2-3.4); MONO % 10.5 %; NEUT % 78.1 %; PLATELET COUNT 64 K/uL (130-400); PLT ESTIMATE DECREASED; TEAR DROP CELLS 1+
[2016-07-01 20:20] LABS: BUN/CREATININE RATIO 7.7 (10-20); CALCIUM 8.5 mg/dl (8.5-10.1); CREATININE 1.4 mg/dl (0.60-1.40); POTASSIUM 4.5 mmol/L (3.5-5.1)
[2016-07-01] MEDS ORDERED: NovoLIN-R INSULIN PER UNIT CHARGE IV STA (20:28)
[2016-07-01 20:32] LABS: BETA-HYDROXYBUTYRATE 2.71 mg/dL (0.2-2.81)
[2016-07-01] MEDS ORDERED: GLUCAGON FOR INJ 1 MG VIAL SQ PRN (21:15)
[2016-07-01] MEDS ORDERED: TRIAMCINOLONE ACET 0.1% CR 15 GM TUBE EXT PRN (21:15)
[2016-07-01] MEDS ORDERED: GLUCOSE 10 TABS/TUBE PO PRN (21:15)
[2016-07-01] MEDS ORDERED: DEXTROSE 50% 50 ML SYR IV PRN (21:15)
[2016-07-01] MEDS ORDERED: HYDROmorphone INJ 1 MG/ML SYR IV PRN (21:15)
[2016-07-01] MEDS ORDERED: GLUCOSE 40% GEL 15 GM TUBE PO PRN (21:15)
[2016-07-01] MEDS ORDERED: IV FLUIDS COMPLETED PRN (21:15)
[2016-07-01 21:20] VITALS: O2SAT 95
[2016-07-01] MEDS ORDERED: PHARMACY GLYCEMIC MGMT CONSULT PRN (21:20)
--- NOTE | 2016-07-01 21:21 | History and Physical ---
History & Physical Date & Time of Service: July 01, 2016 at 21:21 Chief Complaint: Respiratory Distress Primary Care Physician: Chacha Munoz D.O. History of Present Illness Source: patient, clinic records, hospital records 61 year old male with history of Cirrhosis, DM 2, other problems noted below presenting with increasing abdominal girth. Patient was discharged a few weeks ago for progressive ascites and underwent 2 paracentesis procedures. He presents again for increasing abdominal girth, associated with abdominal pain typical of increasing ascites. Has some mild dyspnea on exertion. Denies fever/chills, nausea/vomiting, constipation. On exam , patient resting in bed, appears comfortable. Reports moderate abdominal pain. No chest pain, palpitations, dizziness. No other symptoms. 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 Surgical Problems: (1) H/O esophagogastroduodenoscopy Status: Resolved (2) H/O knee surgery Status: Resolved (3) S/P cervical spinal fusion Status: Resolved (4) S/P IVC filter Status: Resolved (5) S/P lumbar fusion Status: Resolved (6) S/P T&A (status post tonsillectomy and adenoidectomy) Status: Resolved Family History FH: CAD (coronary artery disease) FATHER FH: breast cancer MOTHER Social History Smoking Status: Never Smoker Drug Use: none Marital Status: single Housing status: lives with roommate Occupational Status: retired Immunizations History of Influenza Vaccine: Yes Influenza Vaccine Date: Oct 21, 2014 History of Tetanus Vaccine?: Yes Tetanus Immunization Date: Mar 15, 1972 History of Pneumococcal: Yes Pneumococcal Date: Feb 05, 2009 History of Hepatitis B Vaccine: Yes Hepatitis Immunization Date: June 18, 2013 Multi-Drug Resistant Organisms History of MDRO: No Allergies Coded Allergies: Acetaminophen (Verified Allergy, Severe, ESLD (BETANCOURT). on Liver transplant list. Cannot have APAP., 06/07/16) NSAIDs (Verified Allergy, Severe, DUE TO LIVER DISEAS, 06/07/16) Penicillins (Verified Allergy, Severe, JOINT SWELLING AND FEVER, 06/07/16) Levofloxacin (Verified Allergy, Mild, RASH, 06/07/16) pt developed erythema at site of IV injection with itching Vancomycin (Verified Allergy, Mild, HIVES, 06/07/16) HIVES Tramadol (Verified Allergy, Unknown, NOT TO TAKE WITH KEPPRA DUE TO SEIZURE RISK, 06/07/16) Home Medications Scheduled Escitalopram (Lexapro), 10 MG PO DAILY Ferrous Sulfate (Kp Ferrous Sulfate), 325 MG PO BID Furosemide (Lasix), 20 MG PO BID Insulin Aspart (Novolog), 10 UNITS SQ TIDM Insulin Glargine (Lantus), 28 UNITS SC HS Lactulose (Chronulac), 20 GM PO TID Levetiractam (Levetiracetam), 500 MG PO AMHS Levothyroxine Sodium (Synthroid), 75 MCG PO DAILY Magnesium Oxide (Mag-Ox), 400 MG PO BID Nystatin (Nystatin Suspension), 5 ML PO QID Pantoprazole (Protonix), 40 MG PO BID Propranolol (Inderal), 10 MG PO BID Pyridoxine Hcl (Vitamin B-6), 25 MG PO HS Rifaximin (Xifaxan), 550 MG PO AMHS Spironolactone (Aldactone), 1 TAB PO DAILY Scheduled PRN Diphenhydramine Hcl (Sleep) (Diphenhydramine Hcl), 25 MG PO BID PRN for Itching Hydromorphone Hcl (Dilaudid), 4 MG PO TID PRN for Pain Ondasetron Odt (Zofran Odt), 4 MG SL Q6H PRN for Nausea or Vomiting Triamcinolone Acet (Aristocort 0.1%), 1 APPL EXT BID PRN for dermatitis Review of Systems Constitutional- no fever; no weight loss Eyes- no acute visual changes ENT- no sinus drainage; no pharyngitis Pulmonary- (+) as noted above Cardiac- no chest pain, no palpitations, no orthopnea, no dependent edema GI- (+) as noted above - no dysuria, no hematuria Musculoskeletal- no arthralgias, no myalgias Derm- no rashes, no new skin lesions, no changing skin lesions Hematologic- no unusual bruising, no unusual bleeding Lymphatics- no adenopathy Endocrine- no polyuria or polydipsia; no heat or cold intolerance Neuro- no headaches, no focal neurologic symptoms Psych- no anxiety, no depression Physical Exam Vital Signs Date Time Temp Pulse Resp B/P Pulse Ox O2 Delivery O2 Flow Rate FiO2 07/01/16 20:00 78 18 106/54 98 Room Air 07/01/16 18:07 96 Room Air 07/01/16 18:07 96 Room Air 07/01/16 18:07 36.3 73 20 128/84 96 Room Air 07/01/16 18:06 73 General Appearance: WD/WN, no apparent distress Head: normocephalic, atraumatic Eyes: normal inspection, EOMI, sclerae normal ENT: normal ENT inspection, hearing grossly normal, pharynx normal Neck: supple, no adenopathy, thyroid normal, no JVD, trachea midline Respiratory/Chest: lungs clear, normal breath sounds, no respiratory distress, no accessory muscle use Cardiovascular: regular rate, rhythm, no edema, no JVD, no murmur Abdomen/GI: normal bowel sounds, soft, + tenderness (mld tenderness), + pertinent finding (abdominal distention) Back: normal inspection, no CVA tenderness Extremities/Musculoskelatal: normal inspection, no calf tenderness, no pedal edema, normal range of motion Neurologic/Psych: roll panner II-XII nml as tested, no motor/sensory deficits, alert, normal mood/affect, normal reflexes, oriented x 3 Skin: normal color, warm/dry, no rash Lymphatic: no adenopathy Diagnostics Laboratory Results Results Past 24 Hours Test 07/01/16 18:35 07/01/16 19:18 07/01/16 19:52 Range/Units Urine Color DK YELLOW Urine Appearance CLEAR CLEAR Urine pH 5.5 4.5-7.5 Urine Specific [place] 1.015 1.000-1.030 Urine Protein NEG NEG Urine Glucose (UA) 2+ NEG Urine Ketones NEG NEG Urine Occult Blood NEG NEG Urine Nitrite NEG NEG Urine Bilirubin NEG NEG Urine Urobilinogen NEG NEG Urine Leukocyte Esterase NEG NEG White Blood Count 5.72 4.8-10.8 K/uL Red Blood Count 4.26 4.7-6.1 M/uL Hemoglobin 11.9 14.0-18.0 g/dL Hematocrit 35.0 42-52 % Mean Corpuscular Volume 82.2 80-100 fL Mean Corpuscular Hemoglobin 27.9 25-34 pg Mean Corpuscular Hemoglobin Concent 34.0 32-36 g/dl Platelet Count 64 130-400 K/uL Neutrophils (%) (Auto) 78.1 % Lymphocytes (%) (Auto) 9.3 % Monocytes (%) (Auto) 10.5 % Eosinophils (%) (Auto) 1.4 % Basophils (%) (Auto) 0.5 % Neutrophils # (Auto) 4.47 1.4-6.5 K/uL Lymphocytes # (Auto) 0.53 1.2-3.4 K/uL Monocytes # (Auto) 0.60 0.11-0.59 K/uL Eosinophils # (Auto) 0.08 0-0.5 K/uL Basophils # (Auto) 0.03 0-0.2 K/uL RDW Standard Deviation 57.1 36.4-46.3 fL RDW Coefficient of Variation 18.7 11.5-14.5 % Immature Granulocyte % (Auto) 0.2 % Immature Granulocyte # (Auto) 0.01 0.00-0.02 K/uL Platelet Estimate DECREASED Tear Drop Cells 1+ Prothrombin Time 14.3 9.0-12.0 SECONDS Prothromb Time International Ratio 1.3 0.9-1.1 Activated Partial Thromboplast Time 30.0 21.0-31.0 SECONDS Partial Thromboplastin Ratio 1.2 Sodium Level 137 136-145 mmol/L Potassium Level 4.5 3.5-5.1 mmol/L Chloride Level 101 98-107 mmol/L Carbon Dioxide Level 30 21-32 mmol/L Anion Gap 6.0 3-11 mmol/L Blood Urea Nitrogen 11 7-18 mg/dl Creatinine 1.40 0.60-1.40 mg/dl Est Creatinine Clear Calc Drug Dose 60.1 ml/min Estimated GFR () 62.0 Estimated GFR (Non- 53.5 BUN/Creatinine Ratio 7.7 10-20 Random Glucose 385 70-99 mg/dl Calcium Level 8.5 8.5-10.1 mg/dl Total Bilirubin 2.6 0.2-1 mg/dl Direct Bilirubin 0.8 0-0.2 mg/dl Aspartate Amino Transf (AST/SGOT) 25 15-37 U/L Alanine Aminotransferase (ALT/SGPT) 18 12-78 U/L Alkaline Phosphatase 119 45-117 U/L Total Protein 5.8 6.4-8.2 gm/dl Albumin 2.8 3.4-5.0 gm/dl Lipase 83 73-393 U/L Beta-Hydroxybutyric Acid 2.71 0.2-2.81 mg/dL Bedside Troponin I 0.000 0-0.045 ng/ml TC-Uum-U-Type Natriuretic Peptide 522 0-900 pg/ml Diagnostic Radiology cxr: IMPRESSION: Low lung volumes and bibasilar atelectasis. There is no acute cardiopulmonary abnormality. EKG HR 67, sinus rhythm, no signs of infarct/ischemia Impression Assessment and Plan 61 year old male with history of Cirrhosis, DM 2, other problems noted below presenting with increasing abdominal girth. RECURRENT ASCITES HISTORY OF CIRRHOSIS - US guided paracentesis ordered - Albumin post paracentesis ordered - continue usual diuretics, Lactulose, Rifaximin ORAL THRUSH - improving - continue Nystatin started as outpatient DM 2 HYPERGLYCEMIA - ISS - continue Lantus and Novolog Pharm consult HISTORY OF DVT s/p IVC filter placement ANEMIA seems to be stable DVT prophylaxis SCDs no anticoag due to thrombocytopenia Full code Disposition pending anticipate d/c home when medically stable VTE Prophylaxis VTE Risk Assessment Done? Y/N: Yes Risk Level: Moderate
[2016-07-01 22:10] VITALS: BP 123/79; PULSE 68; TEMP 36.7; O2SAT 95
[2016-07-01 22:12] VITALS: BP 103/57; PULSE 67; TEMP 36.3; O2SAT 97; Ht 182.9 cm; Wt 88.3 kg
[2016-07-01] MEDS ORDERED: INSULIN GLARGINE SOLOSTAR 100 UNITS/ML 3 ML PEN SC ONE (22:30)
[2016-07-01] MEDS: INSULIN ASPART 100 UNITS/ML 3 ML PEN SC SCH (23:54)
[2016-07-02] VITALS (7 sets, daily range): BP systolic 96–113; BP diastolic 58–72; PULSE 64–73; TEMP 36.5–37.2; O2SAT 92–97
--- NOTE | 2016-07-02 01:13 | EMERGENCY ROOM VISIT NOTE ---
History Report prepared by Alla: Priya Mcmullen Under the Supervision of: Dr. Alejandro Darby M.D. First contact with patient: 17:55 Stated Complaint: RESPIRATORY DISTRESS History of Present Illness The patient is a 61 year old male who presents to the Emergency Room with complaints of worsening shortness of breath that started last night. The patient came to the ED via ambulance from home. The patient states that it feels like "someone is sucking the air of the room so he can't get any." The shortness of breath is worse with exertion. He is also experiencing diffuse abdominal pain, abdominal heaviness, and abdominal distention that feel similar to when he was in the ED earlier this month. The patient was seen in the ED on June 07 for recurrent ascites and cirrhosis. He underwent paracentesis twice. He is also experiencing bilateral lower extremity edema, which he states is worse than when he was here at the beginning of the month. He states that he feels like his shortness of breath is secondary to his abdomen retaining fluid. The patient is also experiencing nausea, but denies vomiting. He also denies fevers and chest pain. The patient adds that he woke up from a nap earlier today and was sweating. The patient states that he was seen by his PCP 2 days ago for a sore throat. He was diagnosed with thrush and started on Nystatin. The patient states that he has gained about 10 pounds between when he was discharged from the hospital and when he saw his PCP 2 days ago. He states that he also has an umbilical hernia. The patient has a history of pulmonary emboli but he states that he has not had any since he had an IVC filter placed. He states that his symptoms do not feel similar to when had a pulmonary embolism and at that time he was experiencing an altered mental status. The patient is not on any blood thinners. Source of History: patient Onset: last night Position: chest Quality: other (shortness of breath) Timing: worsening Modifying Factors (Worsening): exertion Associated Symptoms: + abdominal pain (diffuse), + nausea, No chest pain, No fevers, No vomiting Note: abdominal heaviness, abdominal distention, bilateral lower extremity edema, drenched in sweat after nap, gained 10 lbs Review of Systems See HPI for pertinent positives & negatives. A total of 10 systems reviewed and were otherwise negative. 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 Surgical Problems: (1) H/O esophagogastroduodenoscopy (2) H/O knee surgery (3) S/P cervical spinal fusion (4) S/P IVC filter (5) S/P lumbar fusion (6) S/P T&A (status post tonsillectomy and adenoidectomy) Family History FH: CAD (coronary artery disease) FATHER FH: breast cancer MOTHER Social History Smoking Status: Never Smoker Alcohol Use: none Drug Use: none Marital Status: single Housing Status: lives with roommate Occupation Status: retired Current/Historical Medications Scheduled Escitalopram (Lexapro), 10 MG PO DAILY Ferrous Sulfate (Kp Ferrous Sulfate), 325 MG PO BID Furosemide (Lasix), 20 MG PO BID Insulin Aspart (Novolog), 10 UNITS SQ TIDM Insulin Glargine (Lantus), 28 UNITS SC HS Lactulose (Chronulac), 20 GM PO TID Levetiractam (Levetiracetam), 500 MG PO AMHS Levothyroxine Sodium (Synthroid), 75 MCG PO DAILY Magnesium Oxide (Mag-Ox), 400 MG PO BID Nystatin (Nystatin Suspension), 5 ML PO QID Pantoprazole (Protonix), 40 MG PO BID Propranolol (Inderal), 10 MG PO BID Pyridoxine Hcl (Vitamin B-6), 25 MG PO HS Rifaximin (Xifaxan), 550 MG PO AMHS Spironolactone (Aldactone), 1 TAB PO DAILY Scheduled PRN Diphenhydramine Hcl (Sleep) (Diphenhydramine Hcl), 25 MG PO BID PRN for Itching Hydromorphone Hcl (Dilaudid), 4 MG PO TID PRN for Pain Ondasetron Odt (Zofran Odt), 4 MG SL Q6H PRN for Nausea or Vomiting Triamcinolone Acet (Aristocort 0.1%), 1 APPL EXT BID PRN for dermatitis Allergies Coded Allergies: Acetaminophen (Verified Allergy, Severe, ESLD (BETANCOURT). on Liver transplant list. Cannot have APAP., 06/07/16) NSAIDs (Verified Allergy, Severe, DUE TO LIVER DISEAS, 06/07/16) Penicillins (Verified Allergy, Severe, JOINT SWELLING AND FEVER, 06/07/16) Levofloxacin (Verified Allergy, Mild, RASH, 06/07/16) pt developed erythema at site of IV injection with itching Vancomycin (Verified Allergy, Mild, HIVES, 06/07/16) HIVES Tramadol (Verified Allergy, Unknown, NOT TO TAKE WITH KEPPRA DUE TO SEIZURE RISK, 06/07/16) Physical Exam Vital Signs Date Time Temp Pulse Resp B/P Pulse Ox O2 Delivery O2 Flow Rate FiO2 07/01/16 20:00 78 18 106/54 98 Room Air 07/01/16 18:07 96 Room Air 07/01/16 18:07 96 Room Air 07/01/16 18:07 36.3 73 20 128/84 96 Room Air 07/01/16 18:06 73 Physical Exam Constitutional: Vital signs reviewed. Eyes: Pupils are equal round reactive to light. Conjunctiva are noninjected. ENT: Pharynx is clear without erythema or exudate. Mucous membranes are moist. Neck supple without meningeal signs. Respiratory: Clear to auscultation bilaterally. Breath sounds are equal bilaterally. Cardiovascular: Regular rate and rhythm. No rubs or gallops. GI: Soft, significant ascites and abdominal distention. Nontender. Bowel sounds are present. Easily reducible umbilical hernia. Musculoskeletal: Bilateral pitting edema. No lower extremity tenderness. Integumentary: No cyanosis. Neurological: The patient is awake and alert. No focal deficits. Psychiatric: Normal affect. Medical Decision & Procedures ER Provider Diagnostic Interpretation: X-ray results as stated below per interpretation by me and the radiologist: SINGLE VIEW CHEST FINDINGS: An AP, portable, upright chest radiograph is compared to study dated 06/07/2016 and correlated with chest CT dated 04/29/2016. The examination is degraded by portable technique. The cardiomediastinal silhouette is unremarkable. There are low lung volumes and bibasilar atelectasis. No airspace consolidation is seen typical for pneumonia and there is no large pleural effusion. No pneumothorax is identified. The skeletal structures are osteopenic. The bony thorax is grossly intact. Fusion hardware is partially imaged in the lower cervical spine. IMPRESSION: Low lung volumes and bibasilar atelectasis. There is no acute cardiopulmonary abnormality. Electronically signed by: Leonardo De La Fuente M.D. 07/01/2016 6:31 PM Dictated Date/Time: 07/01/2016 6:29 PM Laboratory Results 07/01/16 19:18 Red Blood Count 4.26, Mean Corpuscular Volume 82.2, Mean Corpuscular Hemoglobin 27.9, Mean Corpuscular Hemoglobin Concent 34.0, Neutrophils (%) (Auto) 78.1, Lymphocytes (%) (Auto) 9.3, Monocytes (%) (Auto) 10.5, Eosinophils (%) (Auto) 1.4, Basophils (%) (Auto) 0.5, Neutrophils # (Auto) 4.47, Lymphocytes # (Auto) 0.53, Monocytes # (Auto) 0.60, Eosinophils # (Auto) 0.08, Basophils # (Auto) 0.03 07/01/16 19:18 Test 07/01/16 18:35 07/01/16 19:18 07/01/16 19:52 Urine Color DK YELLOW Urine Appearance CLEAR (CLEAR) Urine pH 5.5 (4.5-7.5) Urine Specific [place] 1.015 (1.000-1.030) Urine Protein NEG (NEG) Urine Glucose (UA) 2+ (NEG) Urine Ketones NEG (NEG) Urine Occult Blood NEG (NEG) Urine Nitrite NEG (NEG) Urine Bilirubin NEG (NEG) Urine Urobilinogen NEG (NEG) Urine Leukocyte Esterase NEG (NEG) White Blood Count 5.72 K/uL (4.8-10.8) Red Blood Count 4.26 M/uL (4.7-6.1) Hemoglobin 11.9 g/dL (14.0-18.0) Hematocrit 35.0 % (42-52) Mean Corpuscular Volume 82.2 fL (80-100) Mean Corpuscular Hemoglobin 27.9 pg (25-34) Mean Corpuscular Hemoglobin Concent 34.0 g/dl (32-36) Platelet Count 64 K/uL (130-400) Neutrophils (%) (Auto) 78.1 % Lymphocytes (%) (Auto) 9.3 % Monocytes (%) (Auto) 10.5 % Eosinophils (%) (Auto) 1.4 % Basophils (%) (Auto) 0.5 % Neutrophils # (Auto) 4.47 K/uL (1.4-6.5) Lymphocytes # (Auto) 0.53 K/uL (1.2-3.4) Monocytes # (Auto) 0.60 K/uL (0.11-0.59) Eosinophils # (Auto) 0.08 K/uL (0-0.5) Basophils # (Auto) 0.03 K/uL (0-0.2) RDW Standard Deviation 57.1 fL (36.4-46.3) RDW Coefficient of Variation 18.7 % (11.5-14.5) Immature Granulocyte % (Auto) 0.2 % Immature Granulocyte # (Auto) 0.01 K/uL (0.00-0.02) Platelet Estimate DECREASED Tear Drop Cells 1+ Prothrombin Time 14.3 SECONDS (9.0-12.0) Prothromb Time International Ratio 1.3 (0.9-1.1) Activated Partial Thromboplast Time 30.0 SECONDS (21.0-31.0) Partial Thromboplastin Ratio 1.2 Anion Gap 6.0 mmol/L (3-11) Est Creatinine Clear Calc Drug Dose 60.1 ml/min Estimated GFR () 62.0 Estimated GFR (Non- 53.5 BUN/Creatinine Ratio 7.7 (10-20) Calcium Level 8.5 mg/dl (8.5-10.1) Total Bilirubin 2.6 mg/dl (0.2-1) Direct Bilirubin 0.8 mg/dl (0-0.2) Aspartate Amino Transf (AST/SGOT) 25 U/L (15-37) Alanine Aminotransferase (ALT/SGPT) 18 U/L (12-78) Alkaline Phosphatase 119 U/L (45-117) Total Protein 5.8 gm/dl (6.4-8.2) Albumin 2.8 gm/dl (3.4-5.0) Lipase 83 U/L (73-393) Beta-Hydroxybutyric Acid 2.71 mg/dL (0.2-2.81) Bedside Troponin I 0.000 ng/ml (0-0.045) IA-Baq-O-Type Natriuretic Peptide 522 pg/ml (0-900) Laboratory results as reviewed by me. Medications Administered Medications (Trade) Dose Ordered Sig/Ryan Route Start Time Stop Time Status Last Admin Dose Admin Hydromorphone HCl (Dilaudid Tab) 4 mg NOW STAT PO 07/01/16 19:36 07/01/16 19:37 DC 07/01/16 19:59 4 MG Ondansetron HCl (Zofran Inj) 4 mg NOW STAT IV 07/01/16 19:36 07/01/16 19:38 DC 07/01/16 19:59 4 MG Hydromorphone HCl (Dilaudid Inj) 0.5 mg Q8H PRN IV 07/01/16 21:15 07/15/16 21:14 07/01/16 23:46 0.5 MG ECG Indication: SOB/dyspnea Rate (beats per minute): 67 Rhythm: sinus rhythm Findings: no acute ischemic change, no ectopy ED Course 1757: The patient was evaluated in room A9. A complete history and physical exam was performed. 1901: I reassessed the patient. He is still awaiting IV team to get labs drawn. 1933: The patient requested that I order his home medications including oral Dilaudid. 1935: Ordered Zofran Inj 4 mg IV, Dilaudid Tab 4 mg PO 2025: Upon reevaluation, the patient was resting comfortably. I discussed the results with him. He verbalized understanding and agreement with the treatment plan. He will be evaluated for further management. 2027: Ordered Insulin Human Regular 6 units IV 2028: I spoke with Dr. Rothman of [facility]. We discussed the patient and his results. The patient will be further evaluated by him. Medical Decision This is a 61-year-old male who presents with shortness of breath. Differential diagnosis includes ascites, anemia, cardiac, pneumonia, pleural effusion, pulmonary edema. I did perform a limited focused review of portions of the patient's old chart on the electronic medical record. The patient was admitted on June 07 for recurrent ascites and cirrhosis. He underwent paracentesis. He has a history of BETANCOURT cirrhosis. Medication Reconciliation: I attest that I have personally reviewed the patient' s current medication list. Blood Pressure Screening: Patient was found to have normal blood pressure on screening and does not require follow-up. I did evaluate the patient as noted above. He is presenting with shortness of breath. He states he feels similar to when he was admitted earlier in the month for significant ascites causing shortness of breath. On exam he has significant ascites but no tenderness to suggest SBP. IV access was established. The patient was placed on a continuous claim processor. I did order and personally review the patient's 12-lead EKG and chest x-ray as described above. I did order and review the patient's blood work as noted in the electronic medical record. His white blood cell count is not elevated. I did treat the patient with his chronic medications including Zofran and Dilaudid. I did discuss the case with the continuous pillowcase cutter and hospitalist for further evaluation in the hospital. Consults Time Called: 2027 Consulting Physician: Dr. Lorna Nelson Returned Call: [address] Rotmhan of [facility]. We discussed the patient and his results. The patient will be further evaluated by him. Impression Primary Impression: Ascites Additional Impressions: BETANCOURT (nonalcoholic steatohepatitis) Hyperglycemia Scribe Attestation The scribe's documentation has been prepared under my direct and personally reviewed by me in its entirety. I confirm that the note above accurately reflects all work, treatment, procedures, and medical decision making performed by me. Departure Information Dispostion Being Evaluated By Hospitalist Referrals Chacha Munoz D.O. (PCP) Problem Qualifiers Primary Impression: Ascites Ascites type: other type Qualified Codes: R18.8 - Other ascites
[2016-07-02] MEDS ORDERED: INSULIN ASPART 100 UNITS/ML 3 ML PEN SC SCH (03:00)
[2016-07-02] MEDS: LEVOTHYROXINE 75 MCG TAB PO SCH (05:38)
[2016-07-02] MEDS ORDERED: NURSING VERBAL MED ORDER ONE (06:15)
[2016-07-02] MEDS: HYDROmorphone INJ 1 MG/ML SYR IV PRN ×3 (06:25→19:38)
[2016-07-02] MEDS ORDERED: INSULIN ASPART 100 UNITS/ML 3 ML PEN SQ SCH (08:00)
[2016-07-02] MEDS: INSULIN ASPART 100 UNITS/ML 3 ML PEN SC SCH ×4 (08:00→21:14)
[2016-07-02] MEDS: LEVETIRACETAM 500 MG TAB PO SCH ×2 (08:43→21:06)
[2016-07-02] MEDS: SPIRONOLACTONE 100 MG TAB PO SCH (08:43)
[2016-07-02] MEDS: LACTULOSE SYRUP 20 GM/30 ML UDC PO SCH ×3 (08:43→21:04)
[2016-07-02] MEDS: RIFAXIMIN TAB 550 MG TAB PO SCH ×2 (08:43→21:05)
[2016-07-02] MEDS: ESCITALOPRAM OXALATE 10 MG TAB PO SCH (08:43)
[2016-07-02] MEDS: NYSTATIN SUSP 500,000 U/5 ML UDC PO SCH ×4 (08:43→21:05)
[2016-07-02] MEDS: MAGNESIUM OXIDE 400 MG TAB PO SCH ×2 (08:44→21:06)
[2016-07-02] MEDS: PANTOprazole SOD 40 MG TAB PO SCH ×2 (08:44→21:07)
[2016-07-02] MEDS: PROPRANOLOL HCL 10 MG TAB PO SCH ×2 (08:44→21:06)
[2016-07-02] MEDS: FUROSEMIDE 20 MG TAB PO SCH ×2 (08:44→21:06)
[2016-07-02] MEDS: ONDANSETRON INJ 2 MG/ML 2 ML VIAL IV PRN ×3 (08:52→22:13)
[2016-07-02] MEDS: FERROUS SULFATE 325 MG TAB PO SCH ×2 (09:00→21:06)
[2016-07-02] MEDS ORDERED: ALBUMIN HUMAN 25% 12.5 GM/50 ML VIAL IV PRN (09:00)
[2016-07-02] MEDS ORDERED: INSULIN GLARGINE SOLOSTAR 100 UNITS/ML 3 ML PEN SC SCH ×2 (09:00→21:00)
[2016-07-02] MEDS ORDERED: ALBUMIN HUMAN 25% 12.5 GM/50 ML VIAL IV ONE (11:45)
--- NOTE | 2016-07-02 11:55 | Pharmacy Progress Note ---
Glycemic Control Intl Consult Date of Service July 02, 2016. Scope Glycemic Pharmacist consulted by Dr Rothman on 07/01/16 for glycemic control and to write orders per [facility] inpatient glycemic control protocol Objective Weight (Kilograms): 88.300 Accuchecks BSG (last 24hrs): Test 07/01/16 19:18 07/01/16 23:23 07/02/16 03:21 07/02/16 07:51 Random Glucose 385 mg/dl (70-99) Bedside Glucose 359 mg/dl (70-99) 206 mg/dl (70-99) 124 mg/dl (70-99) Laboratory Data (last 24hrs) HbA1c 11.6% on 04/03/16 Recent Pertinent Medications Outpatient Anti-diabetic Regimen: * Lantus 28 units SQ HS * NovoLog 10 units SQ TIDM + SSI The patient is currently receiving: * Basal insulin: Lantus 25 units SQ x 1 dose on admission last evening then, Lantus 10 units SQ BID * Correctional Insulin: Novolog Correction per scale ACHS Goal Range: Low 110 mg/dL - High 150 mg/dL Correction Factor: 25 mg/dL/unit * Prandial insulin: Per carb ratio of 1 unit per 15 grams CHO consumed Risk Factors for Insulin Resistance: * Volume Overload {erratic insulin absorption} * Stress * baseline poor control Assessment & Plan ASSESSMENT: * 61yo T2DM male well known to pharmacy per previous admissions/glycemic consults * Patient typically receives ~ 60-70 units of insulin per day per previous admissions * Will initiate dosing based on previous admission data * On admission, pt received outpatient dosing of Lantus 25units SQ HS but then was changed to Lantus 10 units SQ BID * Will work dosing back to daily at for easy transition back to outpatient PLAN FOR INPATIENT GLYCEMIC CONTROL: Continue SQ basal bolus insulin regimen per previous admissions * Basal insulin * Lantus 25units SQ HS * Pt received Lantus 25 units last evening but then was changed to Lantus 10 units SQ BID starting this morning * Will give remaining dose (~15 units) this evening and then resume Lantus 25 units SQ HS 07/03 PM * Bolus insulin * NovoLog per scale ACHS or Q6hrs while NPO * Goal Range: Low 110 mg/dL - High 150 mg/dL * Correction Factor: 25 mg/dL/unit * Nutritional / Prandial insulin per carb ratio of 1 unit per 15 grams CHO consumed * will continue conservative parameters since pt received extra Lantus this AM. Will resume previous admissions parameters of 19/06 on 07/03 * Please note that the plan above was derived based on current level of insulin resistance and hospital stress. These recommendations are appropriate for inpatient admission only. Plan of care upon discharge will need to be reassessed to avoid potential outpatient hypo/hyperglycemia. Thank you.
--- NOTE | 2016-07-02 12:14 | Progress Note ---
Internal Med Progress Note Date of Service: July 02, 2016. Provider Documentation: SUBJECTIVE: The patient was seen and examined Admitted with SOB and and increasing abdominal discomfort Has oral thrush and getting Nystatin Feels better OBJECTIVE: Vital Signs-as noted below Exam: General-No distress at rest Eyes-normal ENT-normal Neck-supple Lungs-Clear to ausucltate bilaterally Heart-Regular,no murmur Abdomen-Distended,tense,tender ,bowel sound sluggish Extremities-Trace edema bilaterally Neuro-AAOx3 Generally weak Lab data as noted below. ASSESSMENT & PLAN: RECURRENT ASCITES -Secondary to CIRRHOSIS of the liver - US guided paracentesis ordered and will be done -IV Albumin pre and post paracentesis - continue usual diuretics, Lactulose, Rifaximin ORAL THRUSH - improving - continue Nystatin started as outpatient DM 2 HYPERGLYCEMIA - ISS - continue Lantus and Novolog -Pharm consult HISTORY OF DVT s/p IVC filter placement ANEMIA seems to be stable DVT prophylaxis SCDs no anticoag due to thrombocytopenia Full code Disposition pending anticipate d/c home when medically stable DVT PROPHYLAXIS [] DISPOSITION [] Vital Signs: Date Time Temp Pulse Resp B/P Pulse Ox O2 Delivery O2 Flow Rate FiO2 07/02/16 08:45 Room Air 07/02/16 06:48 36.7 69 17 111/72 94 Room Air 07/01/16 22:12 36.3 67 18 103/57 97 Room Air 07/01/16 22:10 36.7 68 18 123/79 95 Room Air 07/01/16 21:38 67 18 103/57 97 Room Air 07/01/16 21:20 95 Room Air 07/01/16 20:00 78 18 106/54 98 Room Air 07/01/16 18:07 96 Room Air 07/01/16 18:07 96 Room Air 07/01/16 18:07 36.3 73 20 128/84 96 Room Air 07/01/16 18:06 73 Lab Results: Results Past 24 Hours Test 07/01/16 18:35 07/01/16 19:18 07/01/16 19:52 07/01/16 23:23 Range/Units Urine Color DK YELLOW Urine Appearance CLEAR CLEAR Urine pH 5.5 4.5-7.5 Urine Specific [place] 1.015 1.000-1.030 Urine Protein NEG NEG Urine Glucose (UA) 2+ NEG Urine Ketones NEG NEG Urine Occult Blood NEG NEG Urine Nitrite NEG NEG Urine Bilirubin NEG NEG Urine Urobilinogen NEG NEG Urine Leukocyte Esterase NEG NEG White Blood Count 5.72 4.8-10.8 K/uL Red Blood Count 4.26 4.7-6.1 M/uL Hemoglobin 11.9 14.0-18.0 g/dL Hematocrit 35.0 42-52 % Mean Corpuscular Volume 82.2 80-100 fL Mean Corpuscular Hemoglobin 27.9 25-34 pg Mean Corpuscular Hemoglobin Concent 34.0 32-36 g/dl Platelet Count 64 130-400 K/uL Neutrophils (%) (Auto) 78.1 % Lymphocytes (%) (Auto) 9.3 % Monocytes (%) (Auto) 10.5 % Eosinophils (%) (Auto) 1.4 % Basophils (%) (Auto) 0.5 % Neutrophils # (Auto) 4.47 1.4-6.5 K/uL Lymphocytes # (Auto) 0.53 1.2-3.4 K/uL Monocytes # (Auto) 0.60 0.11-0.59 K/uL Eosinophils # (Auto) 0.08 0-0.5 K/uL Basophils # (Auto) 0.03 0-0.2 K/uL RDW Standard Deviation 57.1 36.4-46.3 fL RDW Coefficient of Variation 18.7 11.5-14.5 % Immature Granulocyte % (Auto) 0.2 % Immature Granulocyte # (Auto) 0.01 0.00-0.02 K/uL Platelet Estimate DECREASED Tear Drop Cells 1+ Prothrombin Time 14.3 9.0-12.0 SECONDS Prothromb Time International Ratio 1.3 0.9-1.1 Activated Partial Thromboplast Time 30.0 21.0-31.0 SECONDS Partial Thromboplastin Ratio 1.2 Sodium Level 137 136-145 mmol/L Potassium Level 4.5 3.5-5.1 mmol/L Chloride Level 101 98-107 mmol/L Carbon Dioxide Level 30 21-32 mmol/L Anion Gap 6.0 3-11 mmol/L Blood Urea Nitrogen 11 7-18 mg/dl Creatinine 1.40 0.60-1.40 mg/dl Est Creatinine Clear Calc Drug Dose 60.1 ml/min Estimated GFR () 62.0 Estimated GFR (Non- 53.5 BUN/Creatinine Ratio 7.7 10-20 Random Glucose 385 70-99 mg/dl Calcium Level 8.5 8.5-10.1 mg/dl Total Bilirubin 2.6 0.2-1 mg/dl Direct Bilirubin 0.8 0-0.2 mg/dl Aspartate Amino Transf (AST/SGOT) 25 15-37 U/L Alanine Aminotransferase (ALT/SGPT) 18 12-78 U/L Alkaline Phosphatase 119 45-117 U/L Total Protein 5.8 6.4-8.2 gm/dl Albumin 2.8 3.4-5.0 gm/dl Lipase 83 73-393 U/L Beta-Hydroxybutyric Acid 2.71 0.2-2.81 mg/dL Bedside Troponin I 0.000 0-0.045 ng/ml MU-Zlv-[id number]-Type Natriuretic Peptide 522 0-900 pg/ml Bedside Glucose 359 70-99 mg/dl Test 07/02/16 03:21 07/02/16 07:51 Range/Units Bedside Glucose 206 124 70-99 mg/dl
--- NOTE | 2016-07-02 15:05 | DIAGNOSTIC IMAGING REPORT ---
ULTRASOUND GUIDED THERAPEUTIC PARACENTESIS CLINICAL HISTORY: Ascites. COMPARISON STUDY: Ultrasound guided paracentesis June 13, 2016 PROCEDURE: The risks, benefits, and alternatives to the procedure were discussed with the patient including the risk of bleeding, infection and injury to adjacent structures. The patient agreed to the procedure and informed written consent was obtained. Following real-time ultrasound localization, the skin of the left lower quadrant was prepped and draped. Following local anesthesia with Xylocaine, the sheath paracentesis needle was inserted and approximately 8.2 liters of straw-colored fluid was removed by vacuum suction. The patient tolerated the procedure well and no immediate complications were evident. IMPRESSION: Ultrasound-guided paracentesis with removal of 8.2 liters of ascites. Electronically signed by: Luisito Obregon M.D. 07/02/2016 3:04 PM Dictated Date/Time: 07/02/2016 3:02 PM
[2016-07-02] MEDS: PYRIDOXINE HCL 50 MG TAB PO SCH (21:07)
[2016-07-03] MEDS: HYDROmorphone INJ 1 MG/ML SYR IV PRN ×3 (00:29→17:33)
[2016-07-03 00:39] VITALS: BP 92/56; PULSE 65; O2SAT 98
[2016-07-03] MEDS ORDERED: ALUMINUM/MAGNESIUM SUSP 30 ML UDC PO STA (01:25)
[2016-07-03] MEDS ORDERED: [UNRECOGNIZED DRUG - REMARK] PRN (01:43)
[2016-07-03 01:50] LABS: CKMB/CK RATIO 2.3 (0-3.0)
[2016-07-03] MEDS: CEFTRIAXONE SOD INJ 2000 MG in DEXTROSE 5% 50ML IV SCH (02:54)
[2016-07-03] MEDS: ONDANSETRON INJ 2 MG/ML 2 ML VIAL IV PRN ×3 (05:10→18:06)
[2016-07-03] MEDS: LEVOTHYROXINE 75 MCG TAB PO SCH (05:14)
[2016-07-03 07:10] LABS: MEAN CORPUSCULAR HGB CONC 34.5 g/dl (32-36)
[2016-07-03 07:44] VITALS: BP 94/44; PULSE 64; TEMP 36.8; O2SAT 95
[2016-07-03 07:52] LABS: MEAN CELL VOLUME 80.5 fL (80-100); MEAN CORPUSCULAR HEMOGLOBIN 27.8 pg (25-34); RED BLOOD COUNT 3.85 M/uL (4.7-6.1)
[2016-07-03 07:54] LABS: PLATELET COUNT 54 K/uL (130-400); PLT ESTIMATE DECREASED
--- NOTE | 2016-07-03 08:00 | DIAGNOSTIC IMAGING REPORT ---
ABDOMEN AND PELVIS CT WITHOUT CONTRAST CT DOSE: 468.92 mGy.cm HISTORY: LEFT LOWER QUADRANT PAIN TECHNIQUE: Multiaxial CT images of the abdomen and pelvis were performed without contrast. COMPARISON STUDY: Abdomen and pelvis CT 05/05/2016. FINDINGS: The lung bases are essentially clear. No pneumoperitoneum. No pneumatosis. Posterior fusion within the lower lumbar spine. Gynecomastia. There are periesophageal and upper abdominal varices again noted. Cirrhosis with splenomegaly persists. The unenhanced pancreas remains atrophic. No renal stones or hydronephrosis. Normal adrenal glands. Cholelithiasis. Moderate ascites. There is also fluid within the umbilical hernia, unchanged. There is an IVC filter. Small amount of fluid tracking in the left lower quadrant abdominal wall. This is likely due to to the prior paracentesis. Normal bladder. No evidence for bowel obstruction. Stable L1 and T11 compression deformities. [id number] stool-filled colon. IMPRESSION: 1. Cirrhosis, splenomegaly, and periesophageal varices are again noted. 2. Moderate ascites. 3. Small amount of fluid seen within the left lower quadrant abdominal wall likely due to the recent paracentesis. 4. Cholelithiasis. 5. No evidence for bowel obstruction. 6. Fluid-filled umbilical hernia. Electronically signed by: Tj Weston M.D. 07/03/2016 7:58 AM Dictated Date/Time: 07/03/2016 7:52 AM
[2016-07-03 08:11] LABS: BLOOD UREA NITROGEN 8 mg/dl (7-18); BUN/CREATININE RATIO 7.5 (10-20); CALCIUM 7.8 mg/dl (8.5-10.1); CARBON DIOXIDE 28 mmol/L (21-32); CHLORIDE 104 mmol/L (98-107); CKMB/CK RATIO 2.5 (0-3.0); GLUCOSE 126 mg/dl (70-99); MAGNESIUM 1.9 mg/dl (1.8-2.4); PHOSPHORUS 3.4 mg/dl (2.5-4.9); POTASSIUM 3.6 mmol/L (3.5-5.1); SODIUM 140 mmol/L (136-145)
[2016-07-03] MEDS: INSULIN ASPART 100 UNITS/ML 3 ML PEN SC SCH ×4 (08:46→22:08)
[2016-07-03 08:55] LABS: BUN/CREATININE RATIO 7.7 (10-20); CREATININE 1.2 mg/dl (0.60-1.40); MAGNESIUM 1.8 mg/dl (1.8-2.4); PHOSPHORUS 3.4 mg/dl (2.5-4.9)
[2016-07-03 09:08] LABS: CALCIUM 7.9 mg/dl (8.5-10.1)
[2016-07-03] MEDS: SPIRONOLACTONE 100 MG TAB PO SCH (09:29)
[2016-07-03] MEDS: RIFAXIMIN TAB 550 MG TAB PO SCH ×2 (09:29→21:42)
[2016-07-03] MEDS: PANTOprazole SOD 40 MG TAB PO SCH ×2 (09:29→21:42)
[2016-07-03] MEDS: FERROUS SULFATE 325 MG TAB PO SCH ×2 (09:29→21:43)
[2016-07-03] MEDS: MAGNESIUM OXIDE 400 MG TAB PO SCH ×2 (09:30→21:42)
[2016-07-03] MEDS: NYSTATIN SUSP 500,000 U/5 ML UDC PO SCH ×4 (09:30→21:40)
[2016-07-03] MEDS: PROPRANOLOL HCL 10 MG TAB PO SCH ×2 (09:30→21:42)
[2016-07-03] MEDS: LEVETIRACETAM 500 MG TAB PO SCH ×2 (09:30→21:40)
[2016-07-03] MEDS: FUROSEMIDE 20 MG TAB PO SCH ×2 (09:30→21:41)
[2016-07-03] MEDS: ESCITALOPRAM OXALATE 10 MG TAB PO SCH (09:30)
[2016-07-03] MEDS: LACTULOSE SYRUP 20 GM/30 ML UDC PO SCH ×4 (09:31→21:45)
[2016-07-03 09:39] VITALS: BP 104/61; PULSE 69
[2016-07-03 10:07] LABS: POTASSIUM 3.6 mmol/L (3.5-5.1)
[2016-07-03] MEDS: HYDROmorphone HCL 2 MG TAB PO PRN ×2 (12:17→21:40)
--- NOTE | 2016-07-03 12:31 | Progress Note ---
Internal Med Progress Note Date of Service: July 03, 2016. Provider Documentation: SUBJECTIVE: The patient was seen and examined Admitted with SOB and and increasing abdominal discomfort Has oral thrush and getting Nystatin S/P 8 liters paracentesis on 07/02/16 Has had more abdominal pain last night A little better today OBJECTIVE: Vital Signs-as noted below Exam: General-No distress at rest Eyes-normal ENT-normal Neck-supple Lungs-Clear to ausucltate bilaterally Heart-Regular,no murmur Abdomen-Distended,tense,tender ,bowel sound sluggish Extremities-Trace edema bilaterally Neuro-AAOx3 Generally weak Lab data as noted below. ASSESSMENT & PLAN: RECURRENT ASCITES -Secondary to CIRRHOSIS of the liver - US guided paracentesis ordered and will be done -IV Albumin pre and post paracentesis - continue usual diuretics, Lactulose, Rifaximin -s./p 8 liters paracentesis on 07/02/16 -negative CT of the abdomen and pelvis last night -better this morning ORAL THRUSH - improving - continue Nystatin started as outpatient DM 2 HYPERGLYCEMIA - ISS - continue Lantus and Novolog -Pharm consult -Blood sugar is maintained HISTORY OF DVT s/p IVC filter placement ANEMIA seems to be stable DVT prophylaxis SCDs no anticoag due to thrombocytopenia Full code Disposition pending anticipate d/c home when medically stable Likely home tomorrow Vital Signs: Date Time Temp Pulse Resp B/P Pulse Ox O2 Delivery O2 Flow Rate FiO2 07/03/16 09:39 69 104/61 07/03/16 07:44 36.8 64 18 94/44 95 Room Air 07/03/16 07:20 Room Air 07/03/16 00:39 65 18 92/56 98 Room Air 07/02/16 22:50 37.2 64 16 111/65 95 Room Air 07/02/16 21:02 73 96/58 07/02/16 19:50 Room Air 07/02/16 16:13 36.5 64 18 106/60 96 Room Air 07/02/16 16:00 Room Air 07/02/16 15:31 36.5 64 18 113/62 97 Room Air 07/02/16 13:29 36.7 67 18 109/69 94 Room Air 07/02/16 12:30 36.6 65 18 108/68 92 Room Air Lab Results: Results Past 24 Hours Test 07/02/16 16:57 07/02/16 20:14 07/03/16 01:15 07/03/16 06:50 Range/Units Bedside Glucose 152 237 70-99 mg/dl Total Creatine Kinase 82 83 39-308 U/L Creatine Kinase MB 1.9 2.1 0.5-3.6 ng/ml Creatine Kinase MB Ratio 2.3 2.5 0-3.0 Troponin I < 0.015 < 0.015 0-0.045 ng/ml White Blood Count 5.50 4.8-10.8 K/uL Red Blood Count 3.85 4.7-6.1 M/uL Hemoglobin 10.7 14.0-18.0 g/dL Hematocrit 31.0 42-52 % Mean Corpuscular Volume 80.5 80-100 fL Mean Corpuscular Hemoglobin 27.8 25-34 pg Mean Corpuscular Hemoglobin Concent 34.5 32-36 g/dl RDW Standard Deviation 54.2 36.4-46.3 fL RDW Coefficient of Variation 18.3 11.5-14.5 % Platelet Count 54 130-400 K/uL Platelet Estimate DECREASED Sodium Level 140 136-145 mmol/L Potassium Level 3.6 3.5-5.1 mmol/L Chloride Level 104 98-107 mmol/L Carbon Dioxide Level 28 21-32 mmol/L Anion Gap 8.0 3-11 mmol/L Blood Urea Nitrogen 8 7-18 mg/dl Creatinine 1.10 0.60-1.40 mg/dl Est Creatinine Clear Calc Drug Dose 76.4 ml/min Estimated GFR () 82.9 Estimated GFR (Non- 71.6 BUN/Creatinine Ratio 7.5 10-20 Random Glucose 126 70-99 mg/dl Calcium Level 7.8 8.5-10.1 mg/dl Phosphorus Level 3.4 2.5-4.9 mg/dl Magnesium Level 1.9 1.8-2.4 mg/dl Test 07/03/16 08:04 07/03/16 11:53 Range/Units Bedside Glucose 119 149 70-99 mg/dl
[2016-07-03 13:34] LABS: CKMB/CK RATIO 2.8 (0-3.0)
[2016-07-03 15:31] VITALS: BP 111/66; PULSE 68; TEMP 36.5; O2SAT 96
[2016-07-03] MEDS ORDERED: INSULIN GLARGINE SOLOSTAR 100 UNITS/ML 3 ML PEN SC SCH (16:45)
[2016-07-03] MEDS: PYRIDOXINE HCL 50 MG TAB PO SCH (21:41)
[2016-07-03 23:10] VITALS: BP 105/65; PULSE 66; TEMP 36.6; O2SAT 96
[2016-07-04] MEDS: CEFTRIAXONE SOD INJ 2000 MG in DEXTROSE 5% 50ML IV SCH (02:36)
[2016-07-04] MEDS: ONDANSETRON INJ 2 MG/ML 2 ML VIAL IV PRN ×3 (02:37→17:12)
[2016-07-04] MEDS: HYDROmorphone INJ 1 MG/ML SYR IV PRN ×3 (02:37→21:59)
[2016-07-04] MEDS: LEVOTHYROXINE 75 MCG TAB PO SCH (05:53)
[2016-07-04 07:17] LABS: MEAN CORPUSCULAR HGB CONC 32.8 g/dl (32-36)
[2016-07-04 07:42] LABS: HEMATOCRIT 34.1 % (42-52); MEAN CELL VOLUME 81.2 fL (80-100); MEAN CORPUSCULAR HEMOGLOBIN 26.7 pg (25-34); WHITE BLOOD COUNT 7.56 K/uL (4.8-10.8)
[2016-07-04] MEDS: HYDROmorphone HCL 2 MG TAB PO PRN ×2 (07:42→17:11)
[2016-07-04 07:48] LABS: PLT ESTIMATE DECREASED
[2016-07-04 07:55] LABS: CREATININE 1.1 mg/dl (0.60-1.40)
[2016-07-04 07:56] LABS: BUN/CREATININE RATIO 8.5 (10-20); CALCIUM 7.5 mg/dl (8.5-10.1); MAGNESIUM 2.2 mg/dl (1.8-2.4); PHOSPHORUS 3.9 mg/dl (2.5-4.9); POTASSIUM 3.6 mmol/L (3.5-5.1)
[2016-07-04 08:00] VITALS: BP 100/60; PULSE 62; TEMP 36.6; O2SAT 96
[2016-07-04 08:02] VITALS: O2SAT 96
[2016-07-04] MEDS: MAGNESIUM OXIDE 400 MG TAB PO SCH ×2 (08:59→20:24)
[2016-07-04] MEDS: ESCITALOPRAM OXALATE 10 MG TAB PO SCH (08:59)
[2016-07-04] MEDS: FERROUS SULFATE 325 MG TAB PO SCH ×2 (08:59→20:29)
[2016-07-04 09:00] VITALS: BP 120/74
[2016-07-04] MEDS: SPIRONOLACTONE 100 MG TAB PO SCH (09:00)
[2016-07-04] MEDS: PANTOprazole SOD 40 MG TAB PO SCH ×2 (09:00→20:31)
[2016-07-04] MEDS: RIFAXIMIN TAB 550 MG TAB PO SCH ×2 (09:00→20:28)
[2016-07-04] MEDS: LACTULOSE SYRUP 20 GM/30 ML UDC PO SCH ×3 (09:00→20:32)
[2016-07-04] MEDS: NYSTATIN SUSP 500,000 U/5 ML UDC PO SCH ×4 (09:00→20:32)
[2016-07-04] MEDS: FUROSEMIDE 20 MG TAB PO SCH ×2 (09:02→20:27)
[2016-07-04] MEDS: LEVETIRACETAM 500 MG TAB PO SCH ×2 (09:02→20:26)
[2016-07-04] MEDS: PROPRANOLOL HCL 10 MG TAB PO SCH ×2 (09:03→20:31)
[2016-07-04] MEDS: INSULIN ASPART 100 UNITS/ML 3 ML PEN SC SCH ×3 (09:18→18:30)
[2016-07-04 09:45] LABS: PLATELET COUNT 67 K/uL (130-400)
--- NOTE | 2016-07-04 12:26 | Pharmacy Progress Note ---
Glycemic Control: Progress Nt Date of Service July 04, 2016. Scope Glycemic Pharmacist consulted by Dr Rothman on 07/01/16 for glycemic control and to write orders per [facility] inpatient glycemic control protocol. Objective Accuchecks BSG (last 24hrs): Test 07/03/16 16:59 07/03/16 21:20 07/04/16 07:04 Bedside Glucose 180 mg/dl (70-99) 262 mg/dl (70-99) Random Glucose 80 mg/dl (70-99) Laboratory Data (last 24hrs) Test 07/04/16 07:04 Anion Gap 7.0 mmol/L BUN/Creatinine Ratio 8.5 Blood Urea Nitrogen 9 mg/dl Creatinine 1.10 mg/dl Potassium Level 3.6 mmol/L Sodium Level 139 mmol/L White Blood Count 7.56 K/uL Recent Pertinent Medications Outpatient Anti-diabetic Regimen: * Lantus 28 units SQ q PM * NovoLog 10 units SQ TID with meals + sliding scale * A1c = 11.6 % 03/2016 The patient is currently receiving: * Basal insulin: * Lantus 28 units SQ q PM * Bolus Insulin: * NovoLog Correction per scale AC+HS - Goal Range: Low 110 mg/dL - High 150 mg/dL - Correction Factor: 15 mg/dL/unit - Carb ratio of 1 unit per 5 grams CHO consumed Risk Factors for Insulin Resistance: * Diet Assessment & Plan ASSESSMENT: * ADA & AACE recommend a goal blood sugar range 140-180 mg/dl for the majority of critically ill & non-critically ill patients. However, more stringent targets may be selected in individual cases. Will reduce goal range for non- elderly patient who has rising BSGs throughout the day on 07/03/16 * Fasting BSG below goal today (precipitously dropped overnight) * will reduce basal insulin slightly * BSGs rising throughout the day on 07/03 * Tighten CF and CR for with meals, however loosen HS Accu-check parameters since large drop observed overnight x2 nights * Poor glycemic contort as an outpatient as evidence of A1c >9% * already utilized SQ basal/bolus insulin - may need to follow closer with PCP or endocrine for improved control. PLAN FOR INPATIENT GLYCEMIC CONTROL: * Basal insulin: * Decrease Lantus to 24 units SQ q PM * Bolus insulin: * NovoLog SQ AC and HD - CF with meals: 12mg/dL/unit - CF at bedtime: 20mg/dL/unit - Carb ratio at meals: 1:4 - Carb ratio at bedtime: 1:7 - Goal range: 110-150mg/dL RECOMMENDATIONS FOR DISCHARGE: * Continue SQ basal/bolus insulin, however may need to follow up closer with PCP or endo for titration. * it appears that basal dose is appropriate given inpatient data. - is his diet worse once discharge? non-compliant? * Please note that the plan above was derived based on current level of insulin resistance and hospital stress. These recommendations are appropriate for inpatient admission only. Plan of care upon discharge will need to be reassessed to avoid potential outpatient hypo/hyperglycemia. Thank you.
--- NOTE | 2016-07-04 12:57 | Progress Note ---
Internal Med Progress Note Date of Service: July 04, 2016. Provider Documentation: SUBJECTIVE: The patient was seen and examined Admitted with SOB and and increasing abdominal discomfort Has oral thrush and getting Nystatin S/P 8 liters paracentesis on 07/02/16 Has been having profuse diarrhea Some abdominal pain,no nausea and or vomiting OBJECTIVE: Vital Signs-as noted below Exam: General-No distress at rest Eyes-normal ENT-normal Neck-supple Lungs-Clear to ausucltate bilaterally Heart-Regular,no murmur Abdomen-Benign,Soft,minimally tender ,bowel sound sluggish Extremities-Trace edema bilaterally Neuro-AAOx3 Generally weak Lab data as noted below. ASSESSMENT & PLAN: RECURRENT ASCITES-S/P 8 liters paracentesis on 07/02/16 -Secondary to CIRRHOSIS of the liver - US guided paracentesis ordered and will be done -IV Albumin pre and post paracentesis - continue usual diuretics, Lactulose, Rifaximin -s./p 8 liters paracentesis on 07/02/16 -negative CT of the abdomen and pelvis last night -Diarrhea since last night Likely due to Antibiotic Check Stool for C Diff and C/S and stop antibiotic ORAL THRUSH - improving - continue Nystatin started as outpatient DM 2 HYPERGLYCEMIA - ISS - continue Lantus and Novolog -Pharm consult -Blood sugar is maintained HISTORY OF DVT s/p IVC filter placement ANEMIA seems to be stable DVT prophylaxis SCDs no anticoag due to thrombocytopenia Full code Disposition Advised to keep appointment with Santana ALMENDAREZ anticipate d/c home when medically stable Discharge when diarrhea is controlled Vital Signs: Date Time Temp Pulse Resp B/P Pulse Ox O2 Delivery O2 Flow Rate FiO2 07/04/16 09:00 120/74 07/04/16 08:02 96 Room Air 07/04/16 08:00 36.6 62 18 100/60 96 Room Air 07/04/16 08:00 Room Air 07/04/16 00:00 Room Air 07/03/16 23:10 36.6 66 16 105/65 96 Room Air 07/03/16 15:40 Room Air 07/03/16 15:31 36.5 68 18 111/66 96 Room Air Lab Results: Results Past 24 Hours Test 07/03/16 16:59 07/03/16 21:20 07/04/16 07:04 Range/Units Bedside Glucose 180 262 70-99 mg/dl White Blood Count 7.56 4.8-10.8 K/uL Red Blood Count 4.20 4.7-6.1 M/uL Hemoglobin 11.2 14.0-18.0 g/dL Hematocrit 34.1 42-52 % Mean Corpuscular Volume 81.2 80-100 fL Mean Corpuscular Hemoglobin 26.7 25-34 pg Mean Corpuscular Hemoglobin Concent 32.8 32-36 g/dl RDW Standard Deviation 54.7 36.4-46.3 fL RDW Coefficient of Variation 18.3 11.5-14.5 % Platelet Count 67 130-400 K/uL Mean Platelet Volume 7.4-10.4 fL Platelet Estimate DECREASED Sodium Level 139 136-145 mmol/L Potassium Level 3.6 3.5-5.1 mmol/L Chloride Level 104 98-107 mmol/L Carbon Dioxide Level 28 21-32 mmol/L Anion Gap 7.0 3-11 mmol/L Blood Urea Nitrogen 9 7-18 mg/dl Creatinine 1.10 0.60-1.40 mg/dl Est Creatinine Clear Calc Drug Dose 76.4 ml/min Estimated GFR () 82.9 Estimated GFR (Non- 71.6 BUN/Creatinine Ratio 8.5 10-20 Random Glucose 80 70-99 mg/dl Calcium Level 7.5 8.5-10.1 mg/dl Phosphorus Level 3.9 2.5-4.9 mg/dl Magnesium Level 2.2 1.8-2.4 mg/dl
[2016-07-04 16:00] VITALS: O2SAT 96
[2016-07-04 17:04] VITALS: BP 110/67; PULSE 62; TEMP 36.5; O2SAT 96
[2016-07-04] MEDS: PYRIDOXINE HCL 50 MG TAB PO SCH (20:30)
[2016-07-04] MEDS ORDERED: INSULIN GLARGINE SOLOSTAR 100 UNITS/ML 3 ML PEN SC SCH (21:00)
[2016-07-04] MEDS ORDERED: INSULIN ASPART 100 UNITS/ML 3 ML PEN SC SCH (21:00)
[2016-07-04 22:50] VITALS: BP 108/54; PULSE 66; TEMP 36.6; O2SAT 97
[2016-07-05] MEDS: HYDROmorphone HCL 2 MG TAB PO PRN ×2 (04:47→13:22)
[2016-07-05] MEDS: LEVOTHYROXINE 75 MCG TAB PO SCH (05:53)
[2016-07-05 07:43] VITALS: BP 108/64; PULSE 62; TEMP 36.8; O2SAT 96
[2016-07-05 07:47] VITALS: O2SAT 96
[2016-07-05] MEDS: ONDANSETRON INJ 2 MG/ML 2 ML VIAL IV PRN ×2 (07:54→13:21)
[2016-07-05 09:00] LABS: BUN/CREATININE RATIO 7.4 (10-20); CREATININE 1.1 mg/dl (0.60-1.40); MAGNESIUM 1.9 mg/dl (1.8-2.4); POTASSIUM 3.6 mmol/L (3.5-5.1)
[2016-07-05] MEDS: LACTULOSE SYRUP 20 GM/30 ML UDC PO SCH ×2 (09:00→13:26)
[2016-07-05 09:07] LABS: CALCIUM 7.7 mg/dl (8.5-10.1)
[2016-07-05] MEDS: FUROSEMIDE 20 MG TAB PO SCH (09:16)
[2016-07-05] MEDS: NYSTATIN SUSP 500,000 U/5 ML UDC PO SCH ×3 (09:16→17:00)
[2016-07-05] MEDS: ESCITALOPRAM OXALATE 10 MG TAB PO SCH (09:16)
[2016-07-05] MEDS: MAGNESIUM OXIDE 400 MG TAB PO SCH (09:16)
[2016-07-05] MEDS: LEVETIRACETAM 500 MG TAB PO SCH (09:17)
[2016-07-05] MEDS: PANTOprazole SOD 40 MG TAB PO SCH (09:17)
[2016-07-05] MEDS: SPIRONOLACTONE 100 MG TAB PO SCH (09:17)
[2016-07-05] MEDS: RIFAXIMIN TAB 550 MG TAB PO SCH (09:17)
[2016-07-05] MEDS: FERROUS SULFATE 325 MG TAB PO SCH (09:17)
[2016-07-05] MEDS: PROPRANOLOL HCL 10 MG TAB PO SCH (09:18)
[2016-07-05] MEDS: HYDROmorphone INJ 1 MG/ML SYR IV PRN ×2 (09:28→17:45)
[2016-07-05] MEDS: INSULIN ASPART 100 UNITS/ML 3 ML PEN SC SCH ×2 (09:28→13:34)
--- NOTE | 2016-07-05 12:08 | Progress Note ---
Internal Med Progress Note Date of Service: July 05, 2016. Provider Documentation: SUBJECTIVE: The patient was seen and examined Admitted with SOB and and increasing abdominal discomfort Has oral thrush and getting Nystatin S/P 8 liters paracentesis on 07/02/16 Diarrhea is much better Ambulating and likely discharge today OBJECTIVE: Vital Signs-as noted below Exam: General-No distress at rest Eyes-normal ENT-normal Neck-supple Lungs-Clear to ausucltate bilaterally Heart-Regular,no murmur Abdomen-Benign,Soft,minimally tender ,bowel sound sluggish Extremities-Trace edema bilaterally Neuro-AAOx3 Generally weak Lab data as noted below. ASSESSMENT & PLAN: Diarrhea Secondary to Use of Antibiotic Stopped following discontinuation of the Antibiotic Await C Diff Toxin test result Likely home this afternoon RECURRENT ASCITES-S/P 8 liters paracentesis on 07/02/16 -Secondary to CIRRHOSIS of the liver - US guided paracentesis ordered and will be done -IV Albumin pre and post paracentesis - continue usual diuretics, Lactulose, Rifaximin -s./p 8 liters paracentesis on 07/02/16 -negative CT of the abdomen and pelvis last night -Diarrhea since last night Likely due to Antibiotic Check Stool for C Diff and C/S and stop antibiotic-pending ORAL THRUSH - improving - continue Nystatin started as outpatient DM 2 HYPERGLYCEMIA - ISS - continue Lantus and Novolog -Pharm consult -Blood sugar is maintained HISTORY OF DVT s/p IVC filter placement ANEMIA seems to be stable DVT prophylaxis SCDs no anticoag due to thrombocytopenia Full code Disposition Advised to keep appointment with Santana ALMENDAREZ anticipate d/c home when medically stable Discharge when diarrhea is controlled-this afternoon Vital Signs: Date Time Temp Pulse Resp B/P Pulse Ox O2 Delivery O2 Flow Rate FiO2 07/05/16 07:47 96 Room Air 07/05/16 07:43 36.8 62 18 108/64 96 Room Air 07/04/16 23:59 Room Air 07/04/16 22:50 36.6 66 16 108/54 97 Room Air 07/04/16 17:04 36.5 62 18 110/67 96 Room Air 07/04/16 16:00 96 Room Air Lab Results: Results Past 24 Hours Test 07/04/16 17:01 07/04/16 20:40 07/05/16 08:08 Range/Units Bedside Glucose 95 221 70-99 mg/dl Sodium Level 139 136-145 mmol/L Potassium Level 3.6 3.5-5.1 mmol/L Chloride Level 103 98-107 mmol/L Carbon Dioxide Level 28 21-32 mmol/L Anion Gap 8.0 3-11 mmol/L Blood Urea Nitrogen 8 7-18 mg/dl Creatinine 1.10 0.60-1.40 mg/dl Est Creatinine Clear Calc Drug Dose 76.4 ml/min Estimated GFR () 82.9 Estimated GFR (Non- 71.6 BUN/Creatinine Ratio 7.4 10-20 Random Glucose 85 70-99 mg/dl Calcium Level 7.7 8.5-10.1 mg/dl Magnesium Level 1.9 1.8-2.4 mg/dl Microbiology Results 07/05/16 Shiga Toxin Test, Received Pending 07/05/16 Stool Culture, Received Pending 07/05/16 C.difficile Toxin B Gene (PCR), Received Pending
--- NOTE | 2016-07-05 12:23 | Pharmacy Progress Note ---
Glycemic Control: Progress Nt Date of Service July 05, 2016. Scope Glycemic Pharmacist consulted by Dr Rothman on 07/01/16 for glycemic control and to write orders per [facility] inpatient glycemic control protocol. Objective Accuchecks BSG (last 24hrs): Test 07/04/16 17:01 07/04/16 20:40 07/05/16 08:08 Bedside Glucose 95 mg/dl (70-99) 221 mg/dl (70-99) Random Glucose 85 mg/dl (70-99) Laboratory Data (last 24hrs) Test 07/05/16 08:08 Anion Gap 8.0 mmol/L BUN/Creatinine Ratio 7.4 Blood Urea Nitrogen 8 mg/dl Creatinine 1.10 mg/dl Potassium Level 3.6 mmol/L Sodium Level 139 mmol/L Recent Pertinent Medications Outpatient Anti-diabetic Regimen: * Lantus 28 units SQ q PM * NovoLog 10 units SQ TID with meals + sliding scale * A1c = 11.6 % 03/2016 The patient is currently receiving: * Basal insulin: * Lantus 24 units SQ q PM * Bolus Insulin: * NovoLog Correction per scale AC+HS - Goal Range: Low 110 mg/dL - High 140 mg/dL - Correction Factor: 12 mg/dL/unit for with meals; 20mg/dL/unit at bedtime - Carb ratio of 1 unit per 4 grams CHO consumed with large meals; 1:7 for bedtime snack Risk Factors for Insulin Resistance: * Diet Assessment & Plan ASSESSMENT: * ADA & AACE recommend a goal blood sugar range 140-180 mg/dl for the majority of critically ill & non-critically ill patients. However, more stringent targets may be selected in individual cases. Will reduce goal range for non- elderly patient who has rising BSGs throughout the day on 07/03/16 07/04/16 * Fasting BSG below goal today (precipitously dropped overnight) * will reduce basal insulin slightly * BSGs rising throughout the day on 07/03 * Tighten CF and CR for with meals, however loosen HS Accu-check parameters since large drop observed overnight x2 nights * Poor glycemic contort as an outpatient as evidence of A1c >9% * already utilized SQ basal/bolus insulin - may need to follow closer with PCP or endocrine for improved control. 07/05/16 * Fasting BSG near goal this AM since decrease in basal insulin and loosening of NovoLog parameters at bedtime * continue same * Slightly aggressive with breakfast NovoLog * loosen mealtime parameters * A1c now outdated * re-order for in AM 07/06 PLAN FOR INPATIENT GLYCEMIC CONTROL: * Basal insulin: * Lantus 24 units SQ q PM * Bolus insulin: * NovoLog SQ AC and HD - CF with meals: 15mg/dL/unit - CF at bedtime: 20mg/dL/unit - Carb ratio at meals: 1:4.5 - Carb ratio at bedtime: 1:7 - Goal range: 110-140mg/dL RECOMMENDATIONS FOR DISCHARGE: * Continue SQ basal/bolus insulin, however may need to follow up closer with PCP or endo for titration. * it appears that basal dose is appropriate given inpatient data. - is his diet worse once discharge? non-compliant? * Please note that the plan above was derived based on current level of insulin resistance and hospital stress. These recommendations are appropriate for inpatient admission only. Plan of care upon discharge will need to be reassessed to avoid potential outpatient hypo/hyperglycemia. Thank you.
--- NOTE | 2016-07-05 14:21 | Discharge Instructions ---
Discharge Instructions Date of Service July 05, 2016. Admission Reason for Admission: Ascites Discharge Discharge Diagnosis / Problem: Tense Ascites s/p 8 liters paracentesis Discharge Goals Goal(s): Prevent Disease Progression Activity Recommendations Activity Limitations: resume your previous activity . Instructions / Follow-Up Instructions / Follow-Up Dr Munoz on 07/07/16 at 10:25 AM .Please keep appointment in [place] Current Hospital Diet Patient's current hospital diet: Diabetes Type 2 Diet, AHA Diet (Heart Healthy) Discharge Diet Recommended Diet: AHA Diet (Heart Healthy), Diabetes Type 2 Diet Fluid Restriction: 1500 ml (6 cups) Pending Studies Studies pending at discharge: no Medical Emergencies . Who to Call and When: Medical Emergencies: If at any time you feel your situation is an emergency, please call 911 immediately. . Non-Emergent Contact Non-Emergency issues call your: Primary Care Provider . Past History Medical & Surgical History: (1) Abdominal pain (2) Ascites (3) Anxiety (4) Depression (5) BETANCOURT (nonalcoholic steatohepatitis) (6) Esophageal varices (7) DM2 (diabetes mellitus, type 2) (8) Hypothyroidism (9) Seizure disorder (10) Portal hypertension (11) S/P lumbar fusion (12) S/P cervical spinal fusion (13) S/P IVC filter (14) S/P T&A (status post tonsillectomy and adenoidectomy) (15) H/O esophagogastroduodenoscopy (16) H/O knee surgery . "Provider Documentation" section prepared by Ksenia Hanks. . VTE Core Measure Inpt VTE Proph given/why not?: SCD's
[2016-07-05 14:57] VITALS: BP 110/67; PULSE 59; TEMP 36.7; O2SAT 96
[2016-07-05 16:00] VITALS: O2SAT 96
[2016-07-05 17:15] VITALS: BP 110/67; PULSE 59; TEMP 36.7; O2SAT 96
--- NOTE | 2016-07-05 18:27 | Discharge Summary ---
Discharge Summary Date of Service July 05, 2016. Discharge Summary Admission Date: July 01, 2016 at 21:21 Discharge Date: July 05, 2016 Discharge Disposition: Home Principal Diagnosis: Tense Ascites s/p 8 liters paracentesis Secondary Diagnoses/Problems: Please see H&P and Hospital Progress note Medication Reconciliation Continued Medications: Diphenhydramine Hcl (Sleep) (Diphenhydramine Hcl) 50 Mg Tab 25 MG PO BID PRN for Itching for 30 Days, #30 TAB 1 Refill Escitalopram (Lexapro) 10 Mg Tab 10 MG PO DAILY, TAB Ferrous Sulfate (Kp Ferrous Sulfate) 325 Mg Tab 325 MG PO BID, TAB Furosemide (Lasix) 20 Mg Tab 20 MG PO BID, TAB Hydromorphone Hcl (Dilaudid) 4 Mg Tab 4 MG PO TID PRN for Pain, TAB Insulin Aspart (Novolog) 100 Units/Ml Inj 10 UNITS SQ TIDM PLUS SLIDING SCALE Insulin Glargine (Lantus) 100 Unit/Ml Inj 28 UNITS SC HS, VIAL Lactulose (Chronulac) 10 Gm/15 Ml Syrp 20 GM PO TID Levetiractam (Levetiracetam) 500 Mg Tab 500 MG PO AMHS Levothyroxine Sodium (Synthroid) 75 Mcg Tab 75 MCG PO DAILY, TAB Magnesium Oxide (Mag-Ox) 400 Mg Tab 400 MG PO BID Nystatin (Nystatin Suspension) 1 Ml Susp 5 ML PO QID for THRUSH Ondasetron Odt (Zofran Odt) 4 Mg Tab 4 MG SL Q6H PRN for Nausea or Vomiting, TAB Pantoprazole (Protonix) 40 Mg Tab 40 MG PO BID, TAB Propranolol (Inderal) 10 Mg Tab 10 MG PO BID, TAB Pyridoxine Hcl (Vitamin B-6) 25 Mg Tab 25 MG PO HS Rifaximin (Xifaxan) 550 Mg Tab 550 MG PO AMHS ONE AT BREAKFAST AND ONE AT SUPPER. Spironolactone (Aldactone) 100 Mg Tab 1 TAB PO DAILY for 30 Days, #30 TAB 11 Refills Triamcinolone Acet (Aristocort 0.1%) 90 Appln/30 Gm Cr 1 APPL EXT BID PRN for dermatitis Admission Information HPI (per Admitting provider): 61 year old male with history of Cirrhosis, DM 2, other problems noted below presenting with increasing abdominal girth. Patient was discharged a few weeks ago for progressive ascites and underwent 2 paracentesis procedures. He presents again for increasing abdominal girth, associated with abdominal pain typical of increasing ascites. Has some mild dyspnea on exertion. Denies fever/chills, nausea/vomiting, constipation. On exam , patient resting in bed, appears comfortable. Reports moderate abdominal pain. No chest pain, palpitations, dizziness. No other symptoms. 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 Surgical Problems: (1) H/O esophagogastroduodenoscopy Status: Resolved (2) H/O knee surgery Status: Resolved (3) S/P cervical spinal fusion Status: Resolved (4) S/P IVC filter Status: Resolved (5) S/P lumbar fusion Status: Resolved (6) S/P T&A (status post tonsillectomy and adenoidectomy) Status: Resolved Family History FH: CAD (coronary artery disease) FATHER FH: breast cancer MOTHER Social History Smoking Status: Never Smoker Drug Use: none Marital Status: single Housing status: lives with roommate Occupational Status: retired Immunizations History of Influenza Vaccine: Yes Influenza Vaccine Date: Oct 21, 2014 History of Tetanus Vaccine?: Yes Tetanus Immunization Date: Mar 15, 1972 History of Pneumococcal: Yes Pneumococcal Date: Feb 05, 2009 History of Hepatitis B Vaccine: Yes Hepatitis Immunization Date: June 18, 2013 Multi-Drug Resistant Organisms History of MDRO: No Allergies Coded Allergies: Acetaminophen (Verified Allergy, Severe, ESLD (BETANCOURT). on Liver transplant list. Cannot have APAP., 06/07/16) NSAIDs (Verified Allergy, Severe, DUE TO LIVER DISEAS, 06/07/16) Penicillins (Verified Allergy, Severe, JOINT SWELLING AND FEVER, 06/07/16) Levofloxacin (Verified Allergy, Mild, RASH, 06/07/16) pt developed erythema at site of IV injection with itching Vancomycin (Verified Allergy, Mild, HIVES, 06/07/16) HIVES Tramadol (Verified Allergy, Unknown, NOT TO TAKE WITH KEPPRA DUE TO SEIZURE RISK, 06/07/16) Home Medications Scheduled Escitalopram (Lexapro), 10 MG PO DAILY Ferrous Sulfate (Kp Ferrous Sulfate), 325 MG PO BID Furosemide (Lasix), 20 MG PO BID Insulin Aspart (Novolog), 10 UNITS SQ TIDM Insulin Glargine (Lantus), 28 UNITS SC HS Lactulose (Chronulac), 20 GM PO TID Levetiractam (Levetiracetam), 500 MG PO AMHS Levothyroxine Sodium (Synthroid), 75 MCG PO DAILY Magnesium Oxide (Mag-Ox), 400 MG PO BID Nystatin (Nystatin Suspension), 5 ML PO QID Pantoprazole (Protonix), 40 MG PO BID Propranolol (Inderal), 10 MG PO BID Pyridoxine Hcl (Vitamin B-6), 25 MG PO HS Rifaximin (Xifaxan), 550 MG PO AMHS Spironolactone (Aldactone), 1 TAB PO DAILY Scheduled PRN Diphenhydramine Hcl (Sleep) (Diphenhydramine Hcl), 25 MG PO BID PRN for Itching Hydromorphone Hcl (Dilaudid), 4 MG PO TID PRN for Pain Ondasetron Odt (Zofran Odt), 4 MG SL Q6H PRN for Nausea or Vomiting Triamcinolone Acet (Aristocort 0.1%), 1 APPL EXT BID PRN for dermatitis Review of Systems Constitutional- no fever; no weight loss Eyes- no acute visual changes ENT- no sinus drainage; no pharyngitis Pulmonary- (+) as noted above Cardiac- no chest pain, no palpitations, no orthopnea, no dependent edema GI- (+) as noted above - no dysuria, no hematuria Musculoskeletal- no arthralgias, no myalgias Derm- no rashes, no new skin lesions, no changing skin lesions Hematologic- no unusual bruising, no unusual bleeding Lymphatics- no adenopathy Endocrine- no polyuria or polydipsia; no heat or cold intolerance Neuro- no headaches, no focal neurologic symptoms Psych- no anxiety, no depression Physical Ex - H&P Physical Exam Vital Signs Date Time Temp Pulse Resp B/P Pulse Ox O2 Delivery O2 Flow Rate FiO2 07/01/16 20:00 78 18 106/54 98 Room Air 07/01/16 18:07 96 Room Air 07/01/16 18:07 96 Room Air 07/01/16 18:07 36.3 73 20 128/84 96 Room Air 07/01/16 18:06 73 General Appearance: WD/WN, no apparent distress Head: normocephalic, atraumatic Eyes: normal inspection, EOMI, sclerae normal ENT: normal ENT inspection, hearing grossly normal, pharynx normal Neck: supple, no adenopathy, thyroid normal, no JVD, trachea midline Respiratory/Chest: lungs clear, normal breath sounds, no respiratory distress, no accessory muscle use Cardiovascular: regular rate, rhythm, no edema, no JVD, no murmur Abdomen/GI: normal bowel sounds, soft, + tenderness (mld tenderness), + pertinent finding (abdominal distention) Back: normal inspection, no CVA tenderness Extremities/Musculoskelatal: normal inspection, no calf tenderness, no pedal edema, normal range of motion Neurologic/Psych: event host II-XII nml as tested, no motor/sensory deficits, alert, normal mood/affect, normal reflexes, oriented x 3 Skin: normal color, warm/dry, no rash Lymphatic: no adenopathy Diagnostics - H&P Diagnostics Laboratory Results Results Past 24 Hours Test 07/01/16 18:35 07/01/16 19:18 07/01/16 19:52 Range/Units Urine Color DK YELLOW Urine Appearance CLEAR CLEAR Urine pH 5.5 4.5-7.5 Urine Specific [place] 1.015 1.000-1.030 Urine Protein NEG NEG Urine Glucose (UA) 2+ NEG Urine Ketones NEG NEG Urine Occult Blood NEG NEG Urine Nitrite NEG NEG Urine Bilirubin NEG NEG Urine Urobilinogen NEG NEG Urine Leukocyte Esterase NEG NEG White Blood Count 5.72 4.8-10.8 K/uL Red Blood Count 4.26 4.7-6.1 M/uL Hemoglobin 11.9 14.0-18.0 g/dL Hematocrit 35.0 42-52 % Mean Corpuscular Volume 82.2 80-100 fL Mean Corpuscular Hemoglobin 27.9 25-34 pg Mean Corpuscular Hemoglobin Concent 34.0 32-36 g/dl Platelet Count 64 130-400 K/uL Neutrophils (%) (Auto) 78.1 % Lymphocytes (%) (Auto) 9.3 % Monocytes (%) (Auto) 10.5 % Eosinophils (%) (Auto) 1.4 % Basophils (%) (Auto) 0.5 % Neutrophils # (Auto) 4.47 1.4-6.5 K/uL Lymphocytes # (Auto) 0.53 1.2-3.4 K/uL Monocytes # (Auto) 0.60 0.11-0.59 K/uL Eosinophils # (Auto) 0.08 0-0.5 K/uL Basophils # (Auto) 0.03 0-0.2 K/uL RDW Standard Deviation 57.1 36.4-46.3 fL RDW Coefficient of Variation 18.7 11.5-14.5 % Immature Granulocyte % (Auto) 0.2 % Immature Granulocyte # (Auto) 0.01 0.00-0.02 K/uL Platelet Estimate DECREASED Tear Drop Cells 1+ Prothrombin Time 14.3 9.0-12.0 SECONDS Prothromb Time International Ratio 1.3 0.9-1.1 Activated Partial Thromboplast Time 30.0 21.0-31.0 SECONDS Partial Thromboplastin Ratio 1.2 Sodium Level 137 136-145 mmol/L Potassium Level 4.5 3.5-5.1 mmol/L Chloride Level 101 98-107 mmol/L Carbon Dioxide Level 30 21-32 mmol/L Anion Gap 6.0 3-11 mmol/L Blood Urea Nitrogen 11 7-18 mg/dl Creatinine 1.40 0.60-1.40 mg/dl Est Creatinine Clear Calc Drug Dose 60.1 ml/min Estimated GFR () 62.0 Estimated GFR (Non- 53.5 BUN/Creatinine Ratio 7.7 10-20 Random Glucose 385 70-99 mg/dl Calcium Level 8.5 8.5-10.1 mg/dl Total Bilirubin 2.6 0.2-1 mg/dl Direct Bilirubin 0.8 0-0.2 mg/dl Aspartate Amino Transf (AST/SGOT) 25 15-37 U/L Alanine Aminotransferase (ALT/SGPT) 18 12-78 U/L Alkaline Phosphatase 119 45-117 U/L Total Protein 5.8 6.4-8.2 gm/dl Albumin 2.8 3.4-5.0 gm/dl Lipase 83 73-393 U/L Beta-Hydroxybutyric Acid 2.71 0.2-2.81 mg/dL Bedside Troponin I 0.000 0-0.045 ng/ml [id number]-Type Natriuretic Peptide 522 0-900 pg/ml Diagnostic Radiology cxr: IMPRESSION: Low lung volumes and bibasilar atelectasis. There is no acute cardiopulmonary abnormality. EKG HR 67, sinus rhythm, no signs of infarct/ischemia Impression - H&P Impression Assessment and Plan 61 year old male with history of Cirrhosis, DM 2, other problems noted below presenting with increasing abdominal girth. RECURRENT ASCITES HISTORY OF CIRRHOSIS - US guided paracentesis ordered - Albumin post paracentesis ordered - continue usual diuretics, Lactulose, Rifaximin ORAL THRUSH - improving - continue Nystatin started as outpatient DM 2 HYPERGLYCEMIA - ISS - continue Lantus and Novolog Pharm consult HISTORY OF DVT s/p IVC filter placement ANEMIA seems to be stable DVT prophylaxis SCDs no anticoag due to thrombocytopenia Full code Disposition pending anticipate d/c home when medically stable VTE Prophylaxis VTE Risk Assessment Done? Y/N: Yes Risk Level: Moderate Physical Exam (per Admitting): General Appearance: WD/WN, no apparent distress Head: normocephalic, atraumatic Eyes: normal inspection, EOMI, sclerae normal ENT: normal ENT inspection, hearing grossly normal, pharynx normal Neck: supple, no adenopathy, thyroid normal, no JVD, trachea midline Respiratory/Chest: lungs clear, normal breath sounds, no respiratory distress, no accessory muscle use Cardiovascular: regular rate, rhythm, no edema, no JVD, no murmur Abdomen/GI: normal bowel sounds, soft, + tenderness (mld tenderness), + pertinent finding (abdominal distention) Back: normal inspection, no CVA tenderness Extremities/Musculoskelatal: normal inspection, no calf tenderness, no pedal edema, normal range of motion Neurologic/Psych: event host II-XII nml as tested, no motor/sensory deficits, alert , normal mood/affect, normal reflexes, oriented x 3 Skin: normal color, warm/dry, no rash Lymphatic: no adenopathy Hospital Course Diarrhea Secondary to Use of Antibiotic Stopped following discontinuation of the Antibiotic Await C Diff Toxin test result Likely home this afternoon RECURRENT ASCITES-S/P 8 liters paracentesis on 07/02/16 -Secondary to CIRRHOSIS of the liver - US guided paracentesis ordered and will be done -IV Albumin pre and post paracentesis - continue usual diuretics, Lactulose, Rifaximin -s./p 8 liters paracentesis on 07/02/16 -negative CT of the abdomen and pelvis last night -Diarrhea since last night Likely due to Antibiotic Check Stool for C Diff and C/S and stop antibiotic-pending ORAL THRUSH - improving - continue Nystatin started as outpatient DM 2 HYPERGLYCEMIA - ISS - continue Lantus and Novolog -Pharm consult -Blood sugar is maintained HISTORY OF DVT s/p IVC filter placement ANEMIA seems to be stable DVT prophylaxis SCDs no anticoag due to thrombocytopenia Full code Disposition Advised to keep appointment with [place] juanita ALMENDAREZ anticipate d/c home when medically stable Discharge when diarrhea is controlled-this afternoon Total time spent on discharge = 35 minutes This includes examination of the patient, discharge planning, medication reconciliation, and communication with other providers. Discharge Instructions Date of Service July 05, 2016. Admission Reason for Admission: Ascites Discharge Discharge Diagnosis / Problem: Tense Ascites s/p 8 liters paracentesis Discharge Goals Goal(s): Prevent Disease Progression Activity Recommendations Activity Limitations: resume your previous activity . Instructions / Follow-Up Instructions / Follow-Up Dr Munoz on 07/07/16 at 10:25 AM .Please keep appointment in [facility] Diet Patient's current hospital diet: Diabetes Type 2 Diet, AHA Diet (Heart Healthy) Discharge Diet Recommended Diet: AHA Diet (Heart Healthy), Diabetes Type 2 Diet Fluid Restriction: 1500 ml (6 cups) Pending Studies Studies pending at discharge: no Medical Emergencies . Who to Call and When: Medical Emergencies: If at any time you feel your situation is an emergency, please call 911 immediately. . Non-Emergent Contact Non-Emergency issues call your: Primary Care Provider . Past History Medical & Surgical History: (1) Abdominal pain (2) Ascites (3) Anxiety (4) Depression (5) BETANCOURT (nonalcoholic steatohepatitis) (6) Esophageal varices (7) DM2 (diabetes mellitus, type 2) (8) Hypothyroidism (9) Seizure disorder (10) Portal hypertension (11) S/P lumbar fusion (12) S/P cervical spinal fusion (13) S/P IVC filter (14) S/P T&A (status post tonsillectomy and adenoidectomy) (15) H/O esophagogastroduodenoscopy (16) H/O knee surgery . "Provider Documentation" section prepared by Ksenia Hanks. . VTE Core Measure Inpt VTE Proph given/why not?: SCD's <Electronically signed by Ksenia Hanks M.D.> Additional Copies To Chacha uMnoz D.O.
[2016-08-22] MEDS ORDERED: MRLP17 PO (09:03)
[2016-08-22] MEDS ORDERED: INSDGI SC (09:03)
[2016-08-29] MEDS ORDERED: POLY335019 PO (12:27)
[2016-08-29] MEDS ORDERED: INSDGI SC (12:27)
[2016-09-18] MEDS ORDERED: DIPH25CA5 PO (10:22)
[2016-11-06] MEDS ORDERED: LCTX PO (14:29)
[2016-11-06] MEDS ORDERED: CLIN300C2 PO (14:29)
[2016-11-18] MEDS ORDERED: CLIN300C2 PO (10:23)
[2016-11-23] MEDS ORDERED: BISA10SU7 PR (07:52)
[2016-11-23] MEDS ORDERED: SODIENE PR (07:52)
[2016-11-23] MEDS ORDERED: DOCU100C31 PO (07:52)
[2016-11-23] MEDS ORDERED: MOML PO (07:52)
[2016-11-23] MEDS ORDERED: SENN-65 PO (07:52)
[2016-11-23] MEDS ORDERED: [UNRECOGNIZED DRUG - CODE] PO (07:54)
[2016-11-23] MEDS ORDERED: GLGKIT SC (07:54)
== END 2016-07-05 18:20 | disposition home or self-care (01) ==
LOC: ENRESERVDT → ENRESERVTM → EDBD 17:51 → C.EDA 17:52 → C.MSN 21:21
PROVIDERS: ADMIT Internal Medicine; ATTEND Internal Medicine
DX: R18.8 Other ascites (principal); K75.81 Nonalcoholic steatohepatitis (NASH); K72.90 Hepatic failure, unspecified without coma; B37.0 Candidal stomatitis; E11.65 Type 2 diabetes mellitus with hyperglycemia; D64.9 Anemia, unspecified; F41.9 Anxiety disorder, unspecified; F32.9 Major depressive disorder, single episode, unspecified; E78.5 Hyperlipidemia, unspecified; E03.9 Hypothyroidism, unspecified; K76.6 Portal hypertension; G40.909 Epilepsy, unspecified, not intractable, without status epilepticus; I81 Portal vein thrombosis; I31.3 Pericardial effusion (noninflammatory); K52.1 Toxic gastroenteritis and colitis; T36.95XA Adverse effect of unspecified systemic antibiotic, initial encounter; Z79.4 Long term (current) use of insulin; Z79.899 Other long term (current) drug therapy; Z86.711 Personal history of pulmonary embolism; Z86.718 Personal history of other venous thrombosis and embolism; Z98.1 Arthrodesis status; Z83.3 Family history of diabetes mellitus; Z80.3 Family history of malignant neoplasm of breast

== ENCOUNTER 2016-07-06 12:55 | Observation (INO) | payer OTHER ==
[~2016-07-06] VITALS: Ht 182.9 cm; Wt 79.0 kg
[~2016-07-06 12:55] MED LIST changes: +HYDR4TAB2 PO; -HYDR4TAB78 PO; -INSU1INJ2 SQ; +NYSS/ PO; +PANT1TAB48 PO; -PREG75CA PO; +SPR/100 PO
[2016-07-06] MEDS ORDERED: PROMETHAZINE HCL INJ 25 MG/ML 1 ML VIAL IV STA (13:13)
[2016-07-06] MEDS ORDERED: SODIUM CHLORIDE 0.9% 1000ML 1,000 ML IV STA (13:13)
[2016-07-06] MEDS ORDERED: SODIUM CHLORIDE 0.9% 1000ML 500 ML IV STA (13:13)
[2016-07-06] MEDS ORDERED: MoRPHine SULFATE 4 MG/ML 1 ML CARP\\VIAL IV PRN (13:15)
[2016-07-06 13:32] LABS: URINE APPEARANCE CLEAR (CLEAR); URINE COLOR DK YELLOW; URINE NITRITE NEG (NEG); URINE SPECIFIC GRAVITY 1.028 (1.000-1.030); UROBILINOGEN NEG (NEG); ZZUR CULT IF INDIC CLEAN CATCH NO
--- NOTE | 2016-07-06 13:33 | EMERGENCY ROOM VISIT NOTE ---
History Report prepared by Alla: No Schilling Under the Supervision of: Dr. Leonardo Morales M.D. First contact with patient: 13:06 Chief Complaint: ABDOMINAL PAIN Stated Complaint: ABDOMINAL PAIN History of Present Illness The patient is a 61 year old male who presents to the Emergency Room via ALS with complaints of persistent, worsening abdominal pain over the past 24 hours. He currently rates his discomfort as a 7/10 in severity. The patient states that he was recently evaluated in the hospital for ascites, noting that he had 8 liters of fluid drained from his abdomen on Sunday. He states that he was discharged from the hospital yesterday, but told his doctor that he was not feeling well enough to go home yet. The patient states that he has had increased abdominal pain, nausea, vomiting, and diarrhea. He additionally notes chills, chest pain, and near syncopal episodes, but is unsure of any fever. The patient states that he was checked for c-diff yesterday, but notes that it was negative. He reports a history of abdominal infections in the past. The patient reports that his blood sugars have been up and down since discharge from the hospital. Source of History: patient Onset: past 24 hours Position: abdomen Symptom Intensity: 7/10 Timing: worsening, other (persistent) Associated Symptoms: + chills, + chest pain, + nausea, + vomiting, + diarrhea Note: Associated Symptoms: near syncopal episodes Review of Systems See HPI for pertinent positives & negatives. A total of 10 systems reviewed and were otherwise negative. 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 Surgical Problems: (1) H/O esophagogastroduodenoscopy (2) H/O knee surgery (3) S/P cervical spinal fusion (4) S/P IVC filter (5) S/P lumbar fusion (6) S/P T&A (status post tonsillectomy and adenoidectomy) Family History FH: CAD (coronary artery disease) FATHER FH: breast cancer MOTHER Social History Smoking Status: Never Smoker Alcohol Use: none Drug Use: none Marital Status: single Housing Status: lives with roommate Occupation Status: retired Current/Historical Medications Scheduled Escitalopram (Lexapro), 10 MG PO DAILY Ferrous Sulfate (Kp Ferrous Sulfate), 325 MG PO BID Furosemide (Lasix), 20 MG PO BID Insulin Aspart (Novolog), 10 UNITS SQ TIDM Insulin Glargine (Lantus), 28 UNITS SC HS Lactulose (Chronulac), 20 GM PO TID Levetiractam (Levetiracetam), 500 MG PO AMHS Levothyroxine Sodium (Synthroid), 75 MCG PO DAILY Magnesium Oxide (Mag-Ox), 400 MG PO BID Nystatin (Nystatin Suspension), 5 ML PO QID Pantoprazole (Protonix), 40 MG PO BID Propranolol (Inderal), 10 MG PO BID Pyridoxine Hcl (Vitamin B-6), 25 MG PO HS Rifaximin (Xifaxan), 550 MG PO AMHS Spironolactone (Aldactone), 1 TAB PO DAILY Scheduled PRN Diphenhydramine Hcl (Sleep) (Diphenhydramine Hcl), 25 MG PO BID PRN for Itching Hydromorphone Hcl (Dilaudid), 4 MG PO TID PRN for Pain Ondasetron Odt (Zofran Odt), 4 MG SL Q6H PRN for Nausea or Vomiting Triamcinolone Acet (Aristocort 0.1%), 1 APPL EXT BID PRN for dermatitis Allergies Coded Allergies: Acetaminophen (Verified Allergy, Severe, ESLD (BETANCOURT). on Liver transplant list. Cannot have APAP., 06/07/16) NSAIDs (Verified Allergy, Severe, DUE TO LIVER DISEAS, 06/07/16) Penicillins (Verified Allergy, Severe, JOINT SWELLING AND FEVER, 06/07/16) Levofloxacin (Verified Allergy, Mild, RASH, 06/07/16) pt developed erythema at site of IV injection with itching Vancomycin (Verified Allergy, Mild, HIVES, 06/07/16) HIVES Tramadol (Verified Allergy, Unknown, NOT TO TAKE WITH KEPPRA DUE TO SEIZURE RISK, 06/07/16) Physical Exam Vital Signs Date Time Temp Pulse Resp B/P (MAP) Pulse Ox O2 Delivery O2 Flow Rate FiO2 07/06/16 15:14 64 20 111/67 99 Room Air 07/06/16 14:35 64 18 114/66 99 Room Air 07/06/16 14:07 71 07/06/16 13:04 36.7 63 18 144/76 100 Room Air Physical Exam GENERAL: Patient is in no acute distress. HEENT: No acute trauma, normocephalic atraumatic, mucous membranes dry, no nasal congestion, no scleral icterus. NECK: No stridor, no adenopathy, no meningismus, trachea is midline. LUNGS: Clear to auscultation bilaterally, no wheeze, no rhonchi, breath sounds equal. HEART: Irregular rhythm with a normal rate, no murmurs. ABDOMEN: Nontender umbilical hernia which is reducible, distended abdomen which is tender diffusely, no peritonitis. EXTREMITIES: No cyanosis or edema, full range of motion of all the joints without pain or difficulty, no signs for acute trauma. NEUROLOGIC: Oriented x 3, no acute motor or sensory deficits, no focal weakness. SKIN: No rash, no jaundice, no diaphoresis. Medical Decision & Procedures ER Provider Diagnostic Interpretation: X-ray results as stated below per interpretation by me and the radiologist: CHEST ONE VIEW PORTABLE CLINICAL HISTORY: Pain, radiating to the abdomen. COMPARISON STUDY: 07/01/2016 FINDINGS: The cardiac and mediastinal contours are normal. There is no evidence of focal pulmonary consolidation. There is no evidence of failure. No pleural effusions are visualized.[ No free air is visualized. IMPRESSION: No active disease in the chest. Electronically signed by: Pawan Garner M.D. 07/06/2016 2:21 PM Dictated Date/Time: 07/06/2016 2:20 PM Laboratory Results 07/06/16 13:49 Red Blood Count 4.30, Mean Corpuscular Volume 80.9, Mean Corpuscular Hemoglobin 27.9, Mean Corpuscular Hemoglobin Concent 34.5, Neutrophils (%) (Auto) 82.2, Lymphocytes (%) (Auto) 9.0, Monocytes (%) (Auto) 7.8, Eosinophils (%) (Auto) 0.5 , Basophils (%) (Auto) 0.3, Neutrophils # (Auto) 4.92, Lymphocytes # (Auto) 0.54 , Monocytes # (Auto) 0.47, Eosinophils # (Auto) 0.03, Basophils # (Auto) 0.02 07/06/16 13:49 Test 07/06/16 13:20 07/06/16 13:49 Urine Color DK YELLOW Urine Appearance CLEAR (CLEAR) Urine pH 6.0 (4.5-7.5) Urine Specific [place] 1.028 (1.000-1.030) Urine Protein TRACE (NEG) Urine Glucose (UA) 2+ (NEG) Urine Ketones 1+ (NEG) Urine Occult Blood NEG (NEG) Urine Nitrite NEG (NEG) Urine Bilirubin NEG (NEG) Urine Urobilinogen NEG (NEG) Urine Leukocyte Esterase NEG (NEG) Urine WBC (Auto) 1-5 /hpf (0-5) Urine RBC (Auto) 5-10 /hpf (0-4) Urine Hyaline Casts (Auto) 1-5 /lpf (0-5) Urine Epithelial Cells (Auto) 5-10 /lpf (0-5) Urine Bacteria (Auto) NEG (NEG) White Blood Count 5.99 K/uL (4.8-10.8) Red Blood Count 4.30 M/uL (4.7-6.1) Hemoglobin 12.0 g/dL (14.0-18.0) Hematocrit 34.8 % (42-52) Mean Corpuscular Volume 80.9 fL (80-100) Mean Corpuscular Hemoglobin 27.9 pg (25-34) Mean Corpuscular Hemoglobin Concent 34.5 g/dl (32-36) Platelet Count 74 K/uL (130-400) Neutrophils (%) (Auto) 82.2 % Lymphocytes (%) (Auto) 9.0 % Monocytes (%) (Auto) 7.8 % Eosinophils (%) (Auto) 0.5 % Basophils (%) (Auto) 0.3 % Neutrophils # (Auto) 4.92 K/uL (1.4-6.5) Lymphocytes # (Auto) 0.54 K/uL (1.2-3.4) Monocytes # (Auto) 0.47 K/uL (0.11-0.59) Eosinophils # (Auto) 0.03 K/uL (0-0.5) Basophils # (Auto) 0.02 K/uL (0-0.2) RDW Standard Deviation 53.0 fL (36.4-46.3) RDW Coefficient of Variation 17.6 % (11.5-14.5) Immature Granulocyte % (Auto) 0.2 % Immature Granulocyte # (Auto) 0.01 K/uL (0.00-0.02) Platelet Estimate DECREASED Poikilocytosis PRESENT Prothrombin Time 15.2 SECONDS (9.0-12.0) Prothromb Time International Ratio 1.4 (0.9-1.1) Activated Partial Thromboplast Time 32.0 SECONDS (21.0-31.0) Partial Thromboplastin Ratio 1.2 Anion Gap 12.0 mmol/L (3-11) Est Creatinine Clear Calc Drug Dose 70.1 ml/min Estimated GFR () 74.7 Estimated GFR (Non- 64.4 BUN/Creatinine Ratio 7.9 (10-20) Lactic Acid Level 2.9 mmol/L (0.4-2.0) Calcium Level 7.9 mg/dl (8.5-10.1) Magnesium Level 2.0 mg/dl (1.8-2.4) Total Bilirubin 1.6 mg/dl (0.2-1) Aspartate Amino Transf (AST/SGOT) 34 U/L (15-37) Alanine Aminotransferase (ALT/SGPT) 21 U/L (12-78) Alkaline Phosphatase 112 U/L (45-117) Ammonia 40.0 umol/L (11-32) Troponin I 0.018 ng/ml (0-0.045) Total Protein 5.7 gm/dl (6.4-8.2) Albumin 2.7 gm/dl (3.4-5.0) Globulin 3.0 gm/dl (2.5-4.0) Albumin/Globulin Ratio 0.9 (0.9-2) Lipase 109 U/L (73-393) Thyroid Stimulating Hormone (TSH) 1.260 uIu/ml (0.300-4.500) Free Thyroxine 1.46 ng/dl (0.80-1.60) Laboratory results reviewed by me. Medications Administered Medications (Trade) Dose Ordered Sig/Ryan Route Start Time Stop Time Status Last Admin Dose Admin Sodium Chloride 500 ml @ 999 mls/hr Q31M STAT IV 07/06/16 13:13 07/06/16 13:43 DC 07/06/16 14:09 999 MLS/HR Sodium Chloride 1,000 ml @ 200 mls/hr Q5H STAT IV 07/06/16 13:13 07/06/16 18:12 DC 07/06/16 14:08 200 MLS/HR Morphine Sulfate (MoRPHine SULFATE INJ) 4 mg Q30M PRN IV 07/06/16 13:15 07/20/16 13:14 07/06/16 14:07 4 MG Promethazine HCl 12.5 mg/Sodium Chloride 50.5 ml @ 202 mls/hr TODAY@1415 IV 07/06/16 14:15 07/06/16 16:00 DC 07/06/16 14:36 202 MLS/HR Diphenhydramine HCl (Benadryl Inj) 25 mg NOW STAT IV 07/06/16 14:51 07/06/16 14:54 DC 07/06/16 15:46 25 MG Hydromorphone HCl (Dilaudid Inj) 0.5 mg NOW STAT IV 07/06/16 15:52 07/06/16 15:53 DC 07/06/16 16:00 0.5 MG ECG Indication: abdominal pain Rate (beats per minute): 59 Rhythm: sinus bradycardia Findings: PAC, no acute ischemic change ED Course 1309: The patient was evaluated in room B7. A complete history and physical exam was performed. 1313: Ordered Sodium Chloride 1000 ml @ 200 mls/hr IV, Sodium Chloride 500 ml @ 999 mls/hr IV. 1315: Ordered Morphine Sulfate 4 mg IV. 1415: Ordered Promethazine HCl 12.5 mg/Sodium Chloride 50.5 ml @ 202 mls/hr IV. 1451: Ordered Benadryl Inj 25 mg IV. 1508: I discussed the patients case with Omar Santos. She is going to evaluate the patient for further treatment. 1514: I reevaluated the patient and he is resting comfortably. I discussed the exam findings with him and I discussed the treatment plan. He verbalized complete understanding and agreement. He will be evaluated for further treatment. Medical Decision The patient is a 61 year old male who presents to the ED with complaints of abdominal pain. Differential diagnoses considered include c-diff colitis, bacterial intestinal infection, viral intestinal infection, spontaneous bacterial peritonitis, dehydration, electrolyte imbalance, liver failure, pneumonia. There is no leukocytosis or concerning anemia. Platelet count is low but this is baseline for the patient, likely consistent with his liver disease. Ammonia level is slightly elevated also likely consistent with his liver disease. No concerning hepatitis. No significant electrolyte abnormality or kidney failure. EKG shows a sinus bradycardia with PACs, no acute ischemia. Cardiac enzyme testing 1 is not consistent with acute cardiac injury. Chest x-ray does not show free air or pneumonia. Blood cultures are pending. Urinalysis does not show infection. Lactic acid level is somewhat elevated, possibly consistent with infection or just dehydration. C. difficile testing is negative. Stool cultures are pending. There is a slight coagulopathy, likely consistent with his liver disease. The patient received IV saline, IV Phenergan, IV morphine. He was given IV Benadryl for a histamine response from the morphine. He received IV Dilaudid for additional pain control. The patient is doing poorly outside the hospital. He has vomiting and diarrhea , he has increasing abdominal pain and certainly, I do have concerns for spontaneous bacterial peritonitis. Given the failed outpatient treatment, admission/observation is warranted. I did speak to the patient and the on-call hospitalist. Medication Reconciliation: I attest that I have personally reviewed the patient' s current medication list. Blood Pressure Screening: Patient was found to have normal blood pressure on screening and does not require follow-up. Consults Time Called: [phone] Consulting Physician: Omar Santos Returned Call: [phone] I discussed the patients case with Omar Santos. She is going to evaluate the patient for further treatment. Impression Primary Impression: Dehydration Additional Impressions: Nausea vomiting and diarrhea Diffuse abdominal pain Ascites Failure of outpatient treatment Scribe Attestation The scribe's documentation has been prepared under my direction and personally reviewed by me in its entirety. I confirm that the note above accurately reflects all work, treatment, procedures, and medical decision making performed by me. Departure Information Dispostion Being Evaluated By Hospitalist Referrals Chacha Munoz D.O. (PCP) Problem Qualifiers
[2016-07-06 13:41] LABS: MANUAL MICROSCOPIC REQUIRED? NO; REVIEW REQ? NO
[2016-07-06 13:42] LABS: URINE BILIRUBIN NEG (NEG)
[2016-07-06 14:14] LABS: MEAN CORPUSCULAR HGB CONC 34.5 g/dl (32-36)
[2016-07-06] MEDS ORDERED: PROMETHAZINE HCL INJ 12.5 MG in SODIUM CHLORIDE 0.9% 50ML 50 ML IV SCH (14:15)
--- NOTE | 2016-07-06 14:22 | DIAGNOSTIC IMAGING REPORT ---
CHEST ONE VIEW PORTABLE CLINICAL HISTORY: Pain, radiating to the abdomen. COMPARISON STUDY: 07/01/2016 FINDINGS: The cardiac and mediastinal contours are normal. There is no evidence of focal pulmonary consolidation. There is no evidence of failure. No pleural effusions are visualized.[ No free air is visualized. IMPRESSION: No active disease in the chest. Electronically signed by: Pawan Garner M.D. 07/06/2016 2:21 PM Dictated Date/Time: 07/06/2016 2:20 PM
[2016-07-06 14:23] LABS: HEMATOCRIT 34.8 % (42-52); MEAN CELL VOLUME 80.9 fL (80-100); MEAN CORPUSCULAR HEMOGLOBIN 27.9 pg (25-34); WHITE BLOOD COUNT 5.99 K/uL (4.8-10.8)
[2016-07-06 14:26] LABS: INR 1.4 (0.9-1.1); PARTIAL THROMBOPLASTIN RATIO 1.2; PROTHROMBIN TIME (PATIENT) 15.2 SECONDS (9.0-12.0)
[2016-07-06 14:33] LABS: BASO % 0.3 %; BASO ABS # 0.02 K/uL (0-0.2); BUN/CREATININE RATIO 7.9 (10-20); COMPLETE YES; CREATININE 1.2 mg/dl (0.60-1.40); EOS % 0.5 %; IG% 0.2 %; LYMPH ABS # 0.54 K/uL (1.2-3.4); MONO % 7.8 %; NEUT % 82.2 %; PLATELET COUNT 74 K/uL (130-400); PLT ESTIMATE DECREASED; POIKILOCYTOSIS PRESENT; POTASSIUM 3.7 mmol/L (3.5-5.1)
[2016-07-06 14:45] LABS: ALB/GLOB RATIO 0.9 (0.9-2)
[2016-07-06] MEDS ORDERED: DiphenhydrAMINE HCL 50 MG/ML VIAL IV STA (14:51)
[2016-07-06 15:00] LABS: CALCIUM 7.9 mg/dl (8.5-10.1)
[2016-07-06 15:15] LABS: THYROID STIMULATING HORMONE 1.26 uIu/ml (0.300-4.500)
[2016-07-06] MEDS ORDERED: HYDROmorphone INJ 2 MG/ML SYR/VIAL IV STA (15:52)
[2016-07-06] MEDS ORDERED: TRIAMCINOLONE ACET 0.1% CR 15 GM TUBE EXT PRN (16:00)
[2016-07-06 16:09] VITALS: O2SAT 99; BMI 23.7
[2016-07-06] MEDS ORDERED: IV FLUIDS COMPLETED PRN (16:30)
[2016-07-06 16:43] VITALS: O2SAT 95
--- NOTE | 2016-07-06 19:13 | HISTORY & PHYSICAL EXAMINATION ---
DATE OF ADMISSION: 07/06/2016 PRIMARY CARE PHYSICIAN: Dr. Munoz. CHIEF COMPLAINT: Abdominal pain with nausea, vomiting, diarrhea since last night. HISTORY OF PRESENT COMPLAINT: He is a 61-year-old male with significant past medical history of cirrhosis of liver with ascites, requires recurrent paracentesis, history of hepatic encephalopathy, history of superior mesenteric artery thrombosis, diabetes type 2 with neuropathy, esophageal varices, nonalcoholic cirrhosis, anxiety, hyperlipidemia, hypothyroidism, seizure disorder, thrombocytopenia and anemia. Apparently was in hospital recently with abdominal distention and some shortness of breath. He has had paracentesis of 8 liters in the hospital recently and he was sent home yesterday in a good medical condition. He has had diarrhea in the hospital the day before discharge and his stool was negative for any C. diff or any infection and his diarrhea was well controlled before he went home. He went home and he complained this morning to his primary care physician that he has been having profuse abdominal pain with fever, nausea, vomiting, and profuse diarrhea. From that point, the primary care physician advised him to come to the ER right away and he get admitted. In the ER, he has been hemodynamically stable. He is crying with abdominal pain and his vitals unremarkable including his CBC, PRP, electrolytes, ammonia have been unremarkable, but given history of increasing abdominal pain and profuse diarrhea, he was admitted to medical floor for continuation of care. PAST MEDICAL HISTORY: Significant for nonalcoholic cirrhosis with ascites, requires recurrent paracentesis, history of hepatic encephalopathy, superior mesenteric venous thrombosis and also history of pulmonary embolism status post IVC filter, diabetes with neuropathy, esophageal varices, hypothyroidism, hyperlipidemia and anxiety/depression, thrombocytopenia, anemia. PAST SURGICAL HISTORY: Significant for tonsillectomy as a child, recurrent paracentesis, last one done is last week. FAMILY HISTORY: Significant for father of heart disease and mother had high blood pressure and also diabetes. SOCIAL HISTORY: He is . He never smoked. He does not use any alcohol and he has been reasonably ambulant at home. REVIEW OF SYSTEMS: CENTRAL NERVOUS SYSTEM: No headache, no blurred vision, no numbness or tingling in the extremities. Does not have any weakness, any side. RESPIRATORY: No shortness of breath, cough or phlegm. CARDIOVASCULAR: No chest pain, palpitation. No leg swelling. GASTROINTESTINAL: Does have abdominal distention with some nausea, vomiting, and profuse diarrhea, some abdominal pain as well. GENITOURINARY: No problem with urine, but does have diarrhea. MUSCULOSKELETAL: No acute arthritis in any joint. GENERAL: He denies to have any rash or enlargement of lymph nodes. ALLERGIES: HE IS ALLERGIC TO TYLENOL, NSAIDS, PENICILLINS, LEVOFLOXACIN, VANCOMYCIN, AND TRAMADOL. MEDICATIONS: He has been on furosemide 20 mg b.i.d., lactulose 20 grams t.i.d., Zofran 4 mg tablets q. 6 hourly as needed, diphenhydramine 50 mg tablet 25 b.i.d. as needed, Lexapro 10 mg daily, ferrous sulfate 325 mg t.i.d., Dilaudid 4 mg t.i.d. as needed, insulin 10 units subQ 3 times daily, Lantus 20 units, 8 units subQ at night, Keppra 500 mg twice daily, Synthroid 75 mcg daily, magnesium oxide 400 mg b.i.d., nystatin 10 mL q.i.d., Protonix 40 mg b.i.d., Inderal 10 mg b.i.d., vitamin B6 25 mg at night, rifaximin 550 mg b.i.d., spironolactone 100 mg daily, and Aristocort as directed. PHYSICAL EXAMINATION: GENERAL: On examination in the Emergency Room, he was not having any acute distress. VITAL SIGNS: Temperature 36.7, pulse was 64, blood pressure 111/67, saturation 99% on room air. HEENT: Unremarkable. NECK: Supple. No JVD, no bruit. CHEST: Clear to auscultation bilaterally. HEART: S1, S2 regular, no murmur. ABDOMEN: Soft, benign, mildly distended, mildly tender. Bowel sounds present. Has a small umbilical hernia. RECTAL: Deferred. EXTREMITIES: Trace edema bilaterally. CENTRAL NERVOUS SYSTEM: Alert, awake, oriented x3. No focal sensory or motor deficit appreciated. LABORATORY DATA: Noted today white count was 5.99, H&H 12.0/34.8, platelet was 74. Sodium 137, potassium 3.7, chloride 103, carbon dioxide 22, BUN 10, creatinine 1.20, random glucose 257. Lactic acid was 2.9, calcium 7.9. LFTs unremarkable. Ammonia was 40 and lipase was 109. TSH 1.26. PT/INR remarkable for INR 1.4. UA examination unremarkable. Chest x-ray: No active disease and EKG, was in sinus bradycardia at rate of 59 per minute and nonspecific ST-T wave changes. IMPRESSION AND PLAN: 1. Abdominal pain with nausea, vomiting, and diarrhea. The patient has early signs of dehydration. We will be admitted to medical floor. We will give a small amount of IV fluid. Stool will be sent for C. diff colitis and stool culture. We will give symptomatic medications. 2. Cirrhosis with recurrent ascites. He does not have any tense ascites at this time. He is status post paracentesis recently of 8 liters of fluid. We will observe in the hospital. 3. Cirrhosis. We will continue with a rifaximin. We will hold lactulose due to diarrhea and continue with other medications except Lasix. 4. Diabetes type 2, continue with sliding scale coverage. 5. Anxiety/depression. We will continue with his Lexapro. 6. Thrombocytopenia. We will observe in the hospital. No pharmacological anticoagulation for DVT prophylaxis. 7. Gastrointestinal prophylaxis with Protonix. 8. Code status. He will be a full code and further management will depend on clinical course. In my clinical judgment, the beneficiary meets criteria as per CMS for 2 midnight stay in the hospital. ELSA
[2016-07-06] MEDS: NYSTATIN SUSP 500,000 U/5 ML UDC PO SCH ×2 (20:00→20:14)
[2016-07-06] MEDS: INSULIN ASPART 100 UNITS/ML 3 ML PEN SQ SCH (20:12)
[2016-07-06] MEDS: INSULIN GLARGINE SOLOSTAR 100 UNITS/ML 3 ML PEN SC SCH (20:13)
[2016-07-06] MEDS: LEVETIRACETAM 500 MG TAB PO SCH (20:14)
[2016-07-06] MEDS: PYRIDOXINE HCL 50 MG TAB PO SCH (20:15)
[2016-07-06] MEDS: FERROUS SULFATE 325 MG TAB PO SCH (20:15)
[2016-07-06] MEDS: RIFAXIMIN TAB 550 MG TAB PO SCH (20:16)
[2016-07-06] MEDS: PANTOprazole SOD 40 MG TAB PO SCH (20:16)
[2016-07-06] MEDS: MAGNESIUM OXIDE 400 MG TAB PO SCH (20:17)
[2016-07-06] MEDS: PROPRANOLOL HCL 10 MG TAB PO SCH (20:17)
[2016-07-06] MEDS: HYDROmorphone HCL 2 MG TAB PO PRN (20:18)
[2016-07-07 00:07] VITALS: BP 100/49; PULSE 67; TEMP 36.7; O2SAT 97
[2016-07-07] MEDS: ONDANSETRON INJ 2 MG/ML 2 ML VIAL IV PRN ×3 (02:11→20:14)
[2016-07-07 05:47] LABS: MEAN CORPUSCULAR HGB CONC 33.7 g/dl (32-36)
[2016-07-07 05:56] LABS: HEMATOCRIT 32.6 % (42-52); MEAN CELL VOLUME 82.5 fL (80-100); MEAN CORPUSCULAR HEMOGLOBIN 27.8 pg (25-34); RED BLOOD COUNT 3.95 M/uL (4.7-6.1)
[2016-07-07] MEDS: LEVOTHYROXINE 75 MCG TAB PO SCH (05:56)
[2016-07-07] MEDS: HYDROmorphone HCL 2 MG TAB PO PRN ×3 (06:00→23:32)
[2016-07-07 06:06] LABS: PLATELET COUNT 68 K/uL (130-400)
[2016-07-07 06:07] LABS: PLT ESTIMATE DECREASED
[2016-07-07 06:28] LABS: BUN/CREATININE RATIO 10.7 (10-20); CALCIUM 7.3 mg/dl (8.5-10.1); CREATININE 0.95 mg/dl (0.60-1.40); MAGNESIUM 2.1 mg/dl (1.8-2.4); PHOSPHORUS 2.3 mg/dl (2.5-4.9); POTASSIUM 3.8 mmol/L (3.5-5.1)
[2016-07-07 07:23] VITALS: BP 98/49; PULSE 66; TEMP 36.7; O2SAT 97
[2016-07-07] MEDS: LEVETIRACETAM 500 MG TAB PO SCH ×2 (09:02→20:07)
[2016-07-07] MEDS: RIFAXIMIN TAB 550 MG TAB PO SCH ×2 (09:02→20:05)
[2016-07-07] MEDS: ESCITALOPRAM OXALATE 10 MG TAB PO SCH (09:03)
[2016-07-07] MEDS: PANTOprazole SOD 40 MG TAB PO SCH ×2 (09:03→20:10)
[2016-07-07] MEDS: NYSTATIN SUSP 500,000 U/5 ML UDC PO SCH ×4 (09:03→20:06)
[2016-07-07] MEDS: MAGNESIUM OXIDE 400 MG TAB PO SCH ×2 (09:03→20:05)
[2016-07-07] MEDS: PROPRANOLOL HCL 10 MG TAB PO SCH ×2 (09:03→20:00)
[2016-07-07] MEDS: SPIRONOLACTONE 100 MG TAB PO SCH (09:04)
[2016-07-07] MEDS: FERROUS SULFATE 325 MG TAB PO SCH ×2 (09:04→20:58)
[2016-07-07] MEDS: INSULIN ASPART 100 UNITS/ML 3 ML PEN SQ SCH ×3 (09:05→17:43)
[2016-07-07] MEDS ORDERED: LOPERAMIDE HCL 2 MG CAP PO PRN (12:00)
[2016-07-07 14:08] VITALS: Ht 182.9 cm; Wt 79.0 kg
--- NOTE | 2016-07-07 15:13 | Progress Note ---
Internal Med Progress Note Date of Service: Jul 07, 2016. Provider Documentation: SUBJECTIVE: The patient was seen and examined has had 4 loose bowel movement since this morning as he reported to the nurse Has some abdominal pain,Vomited once last night OBJECTIVE: Vital Signs-as noted below Exam: General-no distress at rest Eyes-normal ENT-normal Neck-Supple Lungs-Clear to auscultate bilaterally Heart-Regular,no murmur Abdomen-Benign,Mildly distended,Minimal Ascites,no masses,bowel sound present Extremities-Trace edema bilaterally Neuro-AAOx3 Lab data as noted below. ASSESSMENT & PLAN: Abdominal pain with nausea, vomiting, and diarrhea. Seems to be better Stool is negative for any C Diff ,culture -pending No dehydration No signs of lipofection Cirrhosis with recurrent ascites. He does not have any tense ascites at this time. He is status post paracentesis recently of 8 liters of fluid. Observe in the hospital. Continue with a rifaximin. Hold lactulose Diabetes type 2, continue with sliding scale coverage. Anxiety/depression. We will continue with his Lexapro. Thrombocytopenia. We will observe in the hospital. No pharmacological anticoagulation for DVT prophylaxis. Gastrointestinal prophylaxis with Protonix. Code status. He will be a full code and further management will depend on clinical course. DISPOSITION Social service Vital Signs: Date Time Temp Pulse Resp B/P (MAP) Pulse Ox O2 Delivery O2 Flow Rate FiO2 07/07/16 09:00 Room Air 07/07/16 07:23 36.7 66 18 98/49 (65) 97 Room Air 07/07/16 00:07 36.7 67 18 100/49 (66) 97 Room Air 07/06/16 23:59 Room Air 07/06/16 16:43 62 16 127/89 95 Room Air 07/06/16 16:09 99 Room Air 07/06/16 15:14 64 20 111/67 99 Room Air Lab Results: Results Past 24 Hours Test 07/06/16 20:03 07/07/16 05:33 07/07/16 07:30 07/07/16 11:32 Range/Units Bedside Glucose 258 137 168 70-99 mg/dl White Blood Count 7.70 4.8-10.8 K/uL Red Blood Count 3.95 4.7-6.1 M/uL Hemoglobin 11.0 14.0-18.0 g/dL Hematocrit 32.6 42-52 % Mean Corpuscular Volume 82.5 80-100 fL Mean Corpuscular Hemoglobin 27.8 25-34 pg Mean Corpuscular Hemoglobin Concent 33.7 32-36 g/dl RDW Standard Deviation 55.0 36.4-46.3 fL RDW Coefficient of Variation 17.9 11.5-14.5 % Platelet Count 68 130-400 K/uL Platelet Estimate DECREASED Sodium Level 140 136-145 mmol/L Potassium Level 3.8 3.5-5.1 mmol/L Chloride Level 106 98-107 mmol/L Carbon Dioxide Level 28 21-32 mmol/L Anion Gap 6.0 3-11 mmol/L Blood Urea Nitrogen 10 7-18 mg/dl Creatinine 0.95 0.60-1.40 mg/dl Est Creatinine Clear Calc Drug Dose 88.5 ml/min Estimated GFR () 99.0 Estimated GFR (Non- 85.4 BUN/Creatinine Ratio 10.7 10-20 Random Glucose 166 70-99 mg/dl Calcium Level 7.3 8.5-10.1 mg/dl Phosphorus Level 2.3 2.5-4.9 mg/dl Magnesium Level 2.1 1.8-2.4 mg/dl
[2016-07-07 15:52] VITALS: BP 90/52; PULSE 63; TEMP 36.5; O2SAT 98
[2016-07-07] MEDS: PYRIDOXINE HCL 50 MG TAB PO SCH (20:10)
[2016-07-07] MEDS: INSULIN GLARGINE SOLOSTAR 100 UNITS/ML 3 ML PEN SC SCH (21:04)
[2016-07-07 23:35] VITALS: BP 106/60; PULSE 64; TEMP 36.8; O2SAT 99
[2016-07-08] MEDS: LEVOTHYROXINE 75 MCG TAB PO SCH (06:00)
[2016-07-08 07:53] VITALS: BP 114/67; PULSE 54; TEMP 36.8; O2SAT 97
[2016-07-08] MEDS: ONDANSETRON INJ 2 MG/ML 2 ML VIAL IV PRN ×2 (09:52→17:28)
[2016-07-08] MEDS: RIFAXIMIN TAB 550 MG TAB PO SCH ×2 (09:53→20:58)
[2016-07-08] MEDS: MAGNESIUM OXIDE 400 MG TAB PO SCH ×2 (09:53→20:58)
[2016-07-08] MEDS: PROPRANOLOL HCL 10 MG TAB PO SCH ×2 (09:53→20:58)
[2016-07-08] MEDS: HYDROmorphone HCL 2 MG TAB PO PRN ×2 (09:53→17:28)
[2016-07-08] MEDS: SPIRONOLACTONE 100 MG TAB PO SCH (09:53)
[2016-07-08] MEDS: LEVETIRACETAM 500 MG TAB PO SCH ×2 (09:54→20:58)
[2016-07-08] MEDS: PANTOprazole SOD 40 MG TAB PO SCH ×2 (09:54→20:58)
[2016-07-08] MEDS: FERROUS SULFATE 325 MG TAB PO SCH ×2 (09:54→20:58)
[2016-07-08] MEDS: NYSTATIN SUSP 500,000 U/5 ML UDC PO SCH ×4 (09:54→20:58)
[2016-07-08] MEDS: INSULIN ASPART 100 UNITS/ML 3 ML PEN SQ SCH ×3 (10:02→17:39)
[2016-07-08] MEDS: ESCITALOPRAM OXALATE 10 MG TAB PO SCH (11:02)
[2016-07-08] MEDS ORDERED: NURSING VERBAL MED ORDER ONE (12:15)
[2016-07-08] MEDS ORDERED: BISACODYL 10 MG SUPP PR STA (12:17)
[2016-07-08] MEDS: LACTULOSE SYRUP 20 GM/30 ML UDC PO SCH ×2 (12:58→20:59)
[2016-07-08 16:02] VITALS: BP 105/65; PULSE 64; TEMP 36.6; O2SAT 97
--- NOTE | 2016-07-08 16:19 | Progress Note ---
Internal Med Progress Note Date of Service: Jul 08, 2016. Provider Documentation: SUBJECTIVE: The patient was seen and examined has had 4 loose bowel movement since this morning as he reported to the nurse Has some abdominal pain,Vomited once last night Admitted with Profuse Diarrhea No bowel movement since this morning OBJECTIVE: Vital Signs-as noted below Exam: General-no distress at rest Eyes-normal ENT-normal Neck-Supple Lungs-Clear to auscultate bilaterally Heart-Regular,no murmur Abdomen-Benign,Mildly distended,Minimal Ascites,no masses,bowel sound present No significant ascites Extremities-Trace edema bilaterally Neuro-AAOx3 Lab data as noted below. ASSESSMENT & PLAN: Constipation ADMITTED WITH DIARRHEA No bowel movement since this morning Suppository given and may need Enema Abdominal pain with nausea, vomiting, and diarrhea. Seems to be better Stool is negative for any C Diff ,culture -pending No dehydration No signs of infection Cirrhosis with recurrent ascites. He does not have any tense ascites at this time. He is status post paracentesis recently of 8 liters of fluid. Observe in the hospital. Continue with a rifaximin. Hold lactulose-restarted again Diabetes type 2, continue with sliding scale coverage. Anxiety/depression. We will continue with his Lexapro. Thrombocytopenia. We will observe in the hospital. No pharmacological anticoagulation for DVT prophylaxis. Gastrointestinal prophylaxis with Protonix. Code status. He will be a full code and further management will depend on clinical course. DISPOSITION Social service Will discharge after bowel movement Vital Signs: Date Time Temp Pulse Resp B/P (MAP) Pulse Ox O2 Delivery O2 Flow Rate FiO2 07/08/16 16:02 36.6 64 18 105/65 (78) 97 Room Air 07/08/16 10:00 Room Air 07/08/16 07:53 36.8 54 17 114/67 (83) 97 Room Air 07/08/16 00:00 Room Air 07/07/16 23:35 36.8 64 17 106/60 (75) 99 Room Air 07/07/16 17:49 Room Air Lab Results: Results Past 24 Hours Test 07/07/16 16:55 07/07/16 20:15 07/08/16 07:46 07/08/16 11:55 Range/Units Bedside Glucose 113 185 175 123 70-99 mg/dl
[2016-07-08] MEDS ORDERED: SOD PHOSPHATE/SOD BIPHOSPHATE ENEMA 132 ML BTL PR STA (18:30)
[2016-07-08] MEDS: PYRIDOXINE HCL 50 MG TAB PO SCH (20:58)
[2016-07-08] MEDS: INSULIN GLARGINE SOLOSTAR 100 UNITS/ML 3 ML PEN SC SCH (21:00)
[2016-07-08] MEDS ORDERED: COUGH DROP (SUGAR FREE) LOZ 24 LOZ/1 BOX ONE (21:04)
[2016-07-08] MEDS ORDERED: NURSING DECISION MEDICATION ORDER SCH (21:15)
[2016-07-08] MEDS ORDERED: COUGH DROP (SUGAR FREE) LOZ 24 LOZ/1 BOX PO PRN (21:30)
[2016-07-09 00:05] VITALS: BP 111/69; PULSE 63; TEMP 36.7; O2SAT 97
[2016-07-09] MEDS: ONDANSETRON INJ 2 MG/ML 2 ML VIAL IV PRN ×2 (05:05→17:32)
[2016-07-09] MEDS: HYDROmorphone HCL 2 MG TAB PO PRN ×3 (05:06→21:21)
[2016-07-09] MEDS: LEVOTHYROXINE 75 MCG TAB PO SCH (06:02)
[2016-07-09 08:11] VITALS: BP 106/61; PULSE 67; TEMP 36.8; O2SAT 98
[2016-07-09] MEDS: LACTULOSE SYRUP 20 GM/30 ML UDC PO SCH ×4 (09:13→20:54)
[2016-07-09] MEDS: SPIRONOLACTONE 100 MG TAB PO SCH (09:13)
[2016-07-09] MEDS: NYSTATIN SUSP 500,000 U/5 ML UDC PO SCH ×4 (09:13→20:10)
[2016-07-09] MEDS: PROPRANOLOL HCL 10 MG TAB PO SCH ×2 (09:14→20:00)
[2016-07-09] MEDS: ESCITALOPRAM OXALATE 10 MG TAB PO SCH (09:14)
[2016-07-09] MEDS: RIFAXIMIN TAB 550 MG TAB PO SCH ×2 (09:14→20:11)
[2016-07-09] MEDS: MAGNESIUM OXIDE 400 MG TAB PO SCH ×2 (09:14→20:11)
[2016-07-09] MEDS: FERROUS SULFATE 325 MG TAB PO SCH ×2 (09:14→20:14)
[2016-07-09] MEDS: LEVETIRACETAM 500 MG TAB PO SCH ×2 (09:14→20:11)
[2016-07-09] MEDS: INSULIN ASPART 100 UNITS/ML 3 ML PEN SQ SCH ×3 (09:27→17:28)
[2016-07-09] MEDS: PANTOprazole SOD 40 MG TAB PO SCH ×2 (10:01→20:13)
[2016-07-09 13:24] LABS: BETA-HYDROXYBUTYRATE 0.68 mg/dL (0.2-2.81)
[2016-07-09] MEDS ORDERED: INSULIN GLARGINE SOLOSTAR 100 UNITS/ML 3 ML PEN SC ONE (15:30)
[2016-07-09 15:34] VITALS: BP 92/61; PULSE 60; TEMP 36.6; O2SAT 96
--- NOTE | 2016-07-09 17:06 | Progress Note ---
Internal Med Progress Note Date of Service: Jul 09, 2016. Provider Documentation: SUBJECTIVE: resting comfortably still has some abdominal discomfort says had Liquid bowel movement today afebrile eating not good OBJECTIVE: Vital Signs-as noted below Exam: General-alert and awake. Not in distress ENT-Normal hearing Neck-no neck masses, supple Lungs-cta b/l no wheezing or crackles Heart-s1 and s2 heard regular rate and rhythm, no murmurs Abdomen-soft bowel sounds present non tender distended Extremities-no edema, no erythema Neuro-alert and awake moves extremities Lab data as noted below. ASSESSMENT & PLAN: Constipation ADMITTED WITH DIARRHEA moved bowels today Abdominal pain with nausea, vomiting, and diarrhea. c diff negative improving Cirrhosis with recurrent ascites. status post paracentesis recently of 8 liters of fluid. on rifaximin and lactulose plan to be evaluated for Tips soon. Diabetes type 2, continue with Lantus and sliding scale coverage. close monitor Anxiety/depression. On Lexapro. Thrombocytopenia. No pharmacological anticoagulation for DVT prophylaxis. Gastrointestinal prophylaxis with Protonix. Code status. full code DISPOSITION Social service possible d/c in am Vital Signs: Date Time Temp Pulse Resp B/P (MAP) Pulse Ox O2 Delivery O2 Flow Rate FiO2 07/09/16 15:53 Room Air 07/09/16 15:34 36.6 60 17 92/61 (71) 96 Room Air 07/09/16 08:11 36.8 67 16 106/61 (76) 98 Room Air 07/09/16 08:00 Room Air 07/09/16 00:05 36.7 63 20 111/69 (83) 97 Room Air 07/09/16 00:00 Room Air 07/08/16 20:00 Room Air Lab Results: Results Past 24 Hours Test 07/08/16 20:31 07/08/16 20:57 07/08/16 21:55 07/09/16 08:08 Range/Units Bedside Glucose 67 70 95 199 70-99 mg/dl Test 07/09/16 11:59 07/09/16 12:10 07/09/16 12:33 07/09/16 16:51 Range/Units Bedside Glucose 287 333 245 70-99 mg/dl Random Glucose 334 70-99 mg/dl Beta-Hydroxybutyric Acid 0.68 0.2-2.81 mg/dL
[2016-07-09] MEDS: INSULIN GLARGINE SOLOSTAR 100 UNITS/ML 3 ML PEN SC SCH (20:53)
[2016-07-09] MEDS ORDERED: INSULIN ASPART 100 UNITS/ML 3 ML PEN SC ONE (21:06)
[2016-07-09] MEDS ORDERED: GLUCOSE 40% GEL 15 GM TUBE PO PRN (21:15)
[2016-07-09] MEDS ORDERED: DEXTROSE 50% 50 ML SYR IV PRN (21:15)
[2016-07-09] MEDS ORDERED: GLUCOSE 10 TABS/TUBE PO PRN (21:15)
[2016-07-09] MEDS ORDERED: GLUCAGON FOR INJ 1 MG VIAL SQ PRN (21:15)
[2016-07-09] MEDS: PYRIDOXINE HCL 50 MG TAB PO SCH (21:16)
[2016-07-09 23:57] VITALS: BP 100/58; PULSE 64; TEMP 36.7; O2SAT 94
[2016-07-10] MEDS: LEVOTHYROXINE 75 MCG TAB PO SCH (06:09)
[2016-07-10] MEDS: ONDANSETRON INJ 2 MG/ML 2 ML VIAL IV PRN ×2 (06:14→12:59)
[2016-07-10] MEDS: HYDROmorphone HCL 2 MG TAB PO PRN ×2 (06:14→14:05)
[2016-07-10 07:37] VITALS: BP 113/61; PULSE 64; TEMP 36.6; O2SAT 99
[2016-07-10] MEDS ORDERED: INSULIN GLARGINE SOLOSTAR 100 UNITS/ML 3 ML PEN SC SCH (08:00)
[2016-07-10] MEDS: PANTOprazole SOD 40 MG TAB PO SCH (09:35)
[2016-07-10] MEDS: LEVETIRACETAM 500 MG TAB PO SCH (09:35)
[2016-07-10] MEDS: FERROUS SULFATE 325 MG TAB PO SCH (09:35)
[2016-07-10] MEDS: SPIRONOLACTONE 100 MG TAB PO SCH (09:35)
[2016-07-10] MEDS: RIFAXIMIN TAB 550 MG TAB PO SCH (09:35)
[2016-07-10] MEDS: MAGNESIUM OXIDE 400 MG TAB PO SCH (09:35)
[2016-07-10] MEDS: ESCITALOPRAM OXALATE 10 MG TAB PO SCH (09:35)
[2016-07-10] MEDS: PROPRANOLOL HCL 10 MG TAB PO SCH (09:35)
[2016-07-10] MEDS: NYSTATIN SUSP 500,000 U/5 ML UDC PO SCH ×2 (09:36→12:54)
[2016-07-10] MEDS: LACTULOSE SYRUP 20 GM/30 ML UDC PO SCH ×2 (09:36→13:55)
[2016-07-10] MEDS: INSULIN ASPART 100 UNITS/ML 3 ML PEN SC SCH ×2 (09:36→12:56)
[2016-07-10 15:30] VITALS: BP 100/66; PULSE 59; TEMP 36.6; O2SAT 93
--- NOTE | 2016-07-10 16:33 | Discharge Instructions ---
Discharge Instructions Date of Service Jul 10, 2016. Admission Reason for Admission: Diffuse Abdominal Pain, Nausea, Vomiting, Diarrhea Discharge Discharge Diagnosis / Problem: abdominal pain, nausea/vomiting Discharge Goals Goal(s): Decrease discomfort, Improve function Activity Recommendations Activity Limitations: resume your previous activity . Instructions / Follow-Up Instructions / Follow-Up FOLLOWUP WITH FAMILY DOCTOR ON July AT 2:45PM FOLLOWUP WITH EMILY FOR TIPS PROCEDURE. Current Hospital Diet Patient's current hospital diet: Diabetes Type 2 Diet Discharge Diet Recommended Diet: Low Sodium Diet (2gm Na), Diabetes Type 2 Diet Pending Studies Studies pending at discharge: no Medical Emergencies . Who to Call and When: Medical Emergencies: If at any time you feel your situation is an emergency, please call 911 immediately. . Non-Emergent Contact Non-Emergency issues call your: Primary Care Provider . . "Provider Documentation" section prepared by Gabriel Grossman. . VTE Core Measure Inpt VTE Proph given/why not?: SCD's
[2016-07-10 17:01] VITALS: BP 100/66; PULSE 59; TEMP 36.6; O2SAT 93
--- NOTE | 2016-07-10 18:07 | Progress Note ---
Internal Med Progress Note Date of Service: Jul 10, 2016. Provider Documentation: SUBJECTIVE: resting comfortably moved bowels afebrile ok for home OBJECTIVE: Vital Signs-as noted below Exam: General-alert and awake. Not in distress ENT-Normal hearing Neck-no neck masses, supple Lungs-cta b/l no wheezing or crackles Heart-s1 and s2 heard regular rate and rhythm, no murmurs Abdomen-soft bowel sounds present non tender distended Extremities-no edema, no erythema Neuro-alert and awake moves extremities Lab data as noted below. ASSESSMENT & PLAN: Constipation ADMITTED WITH DIARRHEA moved bowels . Abdominal pain with nausea, vomiting, and diarrhea. c diff negative resolved Cirrhosis with recurrent ascites. status post paracentesis recently of 8 liters of fluid. on rifaximin and lactulose plan to be evaluated for Tips soon. Diabetes type 2, continue with Lantus and sliding scale coverage. close monitor Anxiety/depression. On Lexapro. Thrombocytopenia. No pharmacological anticoagulation for DVT prophylaxis. Gastrointestinal prophylaxis with Protonix. Code status. full code discharged home with home health Vital Signs: Date Time Temp Pulse Resp B/P (MAP) Pulse Ox O2 Delivery O2 Flow Rate FiO2 07/10/16 17:01 36.6 59 16 93 Room Air 07/10/16 15:45 Room Air 07/10/16 15:30 36.6 59 16 100/66 (77) 93 Room Air 07/10/16 08:30 Room Air 07/10/16 07:37 36.6 64 16 113/61 (78) 99 Room Air 07/10/16 00:00 Room Air 07/09/16 23:57 36.7 64 18 100/58 (72) 94 Room Air 07/09/16 20:00 Room Air Lab Results: Results Past 24 Hours Test 07/09/16 19:57 07/10/16 07:50 07/10/16 11:49 07/10/16 16:40 Range/Units Bedside Glucose 307 149 117 126 70-99 mg/dl
--- NOTE | 2016-07-10 20:11 | Discharge Summary ---
Discharge Summary Date of Service Jul 10, 2016. Discharge Summary Admission Date: Jul 06, 2016 at 15:55 Discharge Date: Jul 10, 2016 Discharge Disposition: Home Principal Diagnosis: ABDOMINAL PAIN N/V Secondary Diagnoses/Problems: of cirrhosis of liver with ascites, requires recurrent paracentesis, history of hepatic encephalopathy, history of superior mesenteric artery thrombosis, diabetes type 2 with neuropathy, esophageal varices, nonalcoholic cirrhosis, anxiety, hyperlipidemia, hypothyroidism, seizure disorder, thrombocytopenia and anemia Medication Reconciliation Continued Medications: Diphenhydramine Hcl (Sleep) (Diphenhydramine Hcl) 50 Mg Tab 25 MG PO BID PRN for Itching for 30 Days, #30 TAB 1 Refill Escitalopram (Lexapro) 10 Mg Tab 10 MG PO DAILY, TAB Ferrous Sulfate (Kp Ferrous Sulfate) 325 Mg Tab 325 MG PO BID, TAB Furosemide (Lasix) 20 Mg Tab 20 MG PO BID, TAB Hydromorphone Hcl (Dilaudid) 4 Mg Tab 4 MG PO TID PRN for Pain, TAB Insulin Aspart (Novolog) 100 Units/Ml Inj 10 UNITS SQ TIDM PLUS SLIDING SCALE Insulin Glargine (Lantus) 100 Unit/Ml Inj 28 UNITS SC HS, VIAL Lactulose (Chronulac) 10 Gm/15 Ml Syrp 20 GM PO TID Levetiractam (Levetiracetam) 500 Mg Tab 500 MG PO AMHS Levothyroxine Sodium (Synthroid) 75 Mcg Tab 75 MCG PO DAILY, TAB Magnesium Oxide (Mag-Ox) 400 Mg Tab 400 MG PO BID Nystatin (Nystatin Suspension) 1 Ml Susp 5 ML PO QID for THRUSH Ondasetron Odt (Zofran Odt) 4 Mg Tab 4 MG SL Q6H PRN for Nausea or Vomiting, TAB Pantoprazole (Protonix) 40 Mg Tab 40 MG PO BID, TAB Propranolol (Inderal) 10 Mg Tab 10 MG PO BID, TAB Pyridoxine Hcl (Vitamin B-6) 25 Mg Tab 25 MG PO HS Rifaximin (Xifaxan) 550 Mg Tab 550 MG PO AMHS ONE AT BREAKFAST AND ONE AT SUPPER. Spironolactone (Aldactone) 100 Mg Tab 1 TAB PO DAILY for 30 Days, #30 TAB 11 Refills Triamcinolone Acet (Aristocort 0.1%) 90 Appln/30 Gm Cr 1 APPL EXT BID PRN for dermatitis Admission Information HPI (per Admitting provider): He is a 61-year-old male with significant past medical history of cirrhosis of liver with ascites, requires recurrent paracentesis, history of hepatic encephalopathy, history of superior mesenteric artery thrombosis, diabetes type 2 with neuropathy, esophageal varices, nonalcoholic cirrhosis, anxiety, hyperlipidemia, hypothyroidism, seizure disorder, thrombocytopenia and anemia. Apparently was in hospital recently with abdominal distention and some shortness of breath. He has had paracentesis of 8 liters in the hospital recently and he was sent home yesterday in a good medical condition. He has had diarrhea in the hospital the day before discharge and his stool was negative for any C. diff or any infection and his diarrhea was well controlled before he went home. He went home and he complained this morning to his primary care physician that he has been having profuse abdominal pain with fever, nausea, vomiting, and profuse diarrhea. From that point, the primary care physician advised him to come to the ER right away and he get admitted. In the ER, he has been hemodynamically stable. He is crying with abdominal pain and his vitals unremarkable including his CBC, PRP, electrolytes, ammonia have been unremarkable, but given history of increasing abdominal pain and profuse diarrhea, he was admitted to medical floor for continuation of care. Physical Exam (per Admitting): GENERAL: On examination in the Emergency Room, he was not having any acute distress. VITAL SIGNS: Temperature 36.7, pulse was 64, blood pressure 111/67, saturation 99% on room air. HEENT: Unremarkable. NECK: Supple. No JVD, no bruit. CHEST: Clear to auscultation bilaterally. HEART: S1, S2 regular, no murmur. ABDOMEN: Soft, benign, mildly distended, mildly tender. Bowel sounds present. Has a small umbilical hernia. RECTAL: Deferred. EXTREMITIES: Trace edema bilaterally. CENTRAL NERVOUS SYSTEM: Alert, awake, oriented x3. No focal sensory or motor deficit appreciated. Hospital Course Constipation ADMITTED WITH DIARRHEA moved bowels . Abdominal pain with nausea, vomiting, and diarrhea. c diff negative resolved Cirrhosis with recurrent ascites. status post paracentesis recently of 8 liters of fluid. on rifaximin and lactulose plan to be evaluated for Tips soon. Diabetes type 2, continue with Lantus and sliding scale coverage. close monitor Anxiety/depression. On Lexapro. Thrombocytopenia. No pharmacological anticoagulation for DVT prophylaxis. Gastrointestinal prophylaxis with Protonix. Code status. full code discharged home with home health Total time spent on discharge = 35MINUTES This includes examination of the patient, discharge planning, medication reconciliation, and communication with other providers. Discharge Instructions Discharge Instructions Date of Service Jul 10, 2016. Admission Reason for Admission: Diffuse Abdominal Pain, Nausea, Vomiting, Diarrhea Discharge Discharge Diagnosis / Problem: abdominal pain, nausea/vomiting Discharge Goals Goal(s): Decrease discomfort, Improve function Activity Recommendations Activity Limitations: resume your previous activity . Instructions / Follow-Up Instructions / Follow-Up FOLLOWUP WITH FAMILY DOCTOR ON July AT 2:45PM FOLLOWUP WITH EMILY FOR TIPS PROCEDURE. Current Hospital Diet Patient's current hospital diet: Diabetes Type 2 Diet Discharge Diet Recommended Diet: Low Sodium Diet (2gm Na), Diabetes Type 2 Diet Pending Studies Studies pending at discharge: no Medical Emergencies . Who to Call and When: Medical Emergencies: If at any time you feel your situation is an emergency, please call 911 immediately. . Non-Emergent Contact Non-Emergency issues call your: Primary Care Provider . . "Provider Documentation" section prepared by Gabriel Grossman. . VTE Core Measure Inpt VTE Proph given/why not?: SCD's
[2016-07-13] MEDS ORDERED: ONDANSETRON 4MG OD TAB SL PRN (02:00)
[2016-07-13] MEDS ORDERED: FUROSEMIDE 20 MG TAB PO SCH (08:00)
[2016-07-13] MEDS ORDERED: LACTULOSE SYRUP 20 GM/30 ML UDC PO SCH (08:00)
[2016-08-22] MEDS ORDERED: MRLP17 PO (09:03)
[2016-08-22] MEDS ORDERED: INSDGI SC (09:03)
[2016-08-29] MEDS ORDERED: POLY335019 PO (12:27)
[2016-08-29] MEDS ORDERED: INSDGI SC (12:27)
[2016-09-18] MEDS ORDERED: DIPH25CA5 PO (10:22)
[2016-11-18] MEDS ORDERED: CLIN300C2 PO (10:23)
[2016-11-23] MEDS ORDERED: SODIENE PR (07:52)
[2016-11-23] MEDS ORDERED: BISA10SU7 PR (07:52)
[2016-11-23] MEDS ORDERED: SENN-65 PO (07:52)
[2016-11-23] MEDS ORDERED: MOML PO (07:52)
[2016-11-23] MEDS ORDERED: DOCU100C31 PO (07:52)
[2016-11-23] MEDS ORDERED: GLGKIT SC (07:54)
[2016-11-23] MEDS ORDERED: [UNRECOGNIZED DRUG - CODE] PO (07:54)
== END 2016-07-10 17:46 | disposition home health service (06) ==
LOC: EDBD 12:55 → C.EDB 12:57 → C.4E 15:55 → ENRESERV 16:14
PROVIDERS: ADMIT Internal Medicine; ATTEND Internal Medicine
DX: R10.9 Unspecified abdominal pain (principal); R11.2 Nausea with vomiting, unspecified; R19.7 Diarrhea, unspecified; K74.60 Unspecified cirrhosis of liver; E11.21 Type 2 diabetes mellitus with diabetic nephropathy; E78.5 Hyperlipidemia, unspecified; E03.9 Hypothyroidism, unspecified; Z79.4 Long term (current) use of insulin; Z86.711 Personal history of pulmonary embolism; F41.9 Anxiety disorder, unspecified; F32.9 Major depressive disorder, single episode, unspecified; Z79.899 Other long term (current) drug therapy; Z82.49 Family history of ischemic heart disease and other diseases of the circulatory system; Z83.3 Family history of diabetes mellitus

== ENCOUNTER 2016-07-12 22:41 | Observation (INO) | payer OTHER ==
[~2016-07-12] VITALS: Ht 172.7 cm; Wt 79.5 kg
[2016-07-12] MEDS ORDERED: HYDROmorphone INJ 0.5 MG/0.5 ML SYR IV STA (22:59)
--- NOTE | 2016-07-12 23:17 | EMERGENCY ROOM VISIT NOTE ---
History Report prepared by Alla: Isidro Farah Under the Supervision of: Dr. Jerry Neville D.O. First contact with patient: 22:52 Stated Complaint: AB SWELLING, DIZZINESS History of Present Illness The patient is a 61 year old male who presents to the Emergency Room with complaints of a constant, distended abdomen beginning prior to arrival. He currently rates his discomfort an 8/10 in severity. The patient states that he has a history of ascites. He reports that he was in the ER 8 days ago and had 8L of fluid drained. The patient currently complains of diarrhea, shortness of breath, and a decreased appetite. He reports that he called the medical center in [place] and was told that they could not do anything and to go to the ER. The patient notes that once he had 14L of fluid drained. He reports that he is typically given albumen before and after his taps. The patient states he takes Dilaudid 3 times a day for his discomfort, and his last dose was two days ago. He states that he has an appointment scheduled with Santana Jeffery to be evaluated for a TIPS procedure. Source of History: patient Onset: prior to arrival Position: abdomen Symptom Intensity: 8/10 Quality: other (distended) Timing: constant Associated Symptoms: + SOB, + diarrhea Note: Associated symptoms: decreased appetite Review of Systems See HPI for pertinent positives and negatives. A total of ten systems were reviewed and were otherwise negative. 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 Surgical Problems: (1) H/O esophagogastroduodenoscopy (2) H/O knee surgery (3) S/P cervical spinal fusion (4) S/P IVC filter (5) S/P lumbar fusion (6) S/P T&A (status post tonsillectomy and adenoidectomy) Family History FH: CAD (coronary artery disease) FATHER FH: breast cancer MOTHER Social History Smoking Status: Never Smoker Alcohol Use: none Drug Use: none Marital Status: single Housing Status: lives with roommate Occupation Status: retired Current/Historical Medications Scheduled Escitalopram (Lexapro), 10 MG PO DAILY Ferrous Sulfate (Kp Ferrous Sulfate), 325 MG PO BID Furosemide (Lasix), 20 MG PO BID Insulin Aspart (Novolog), 10 UNITS SQ TIDM Insulin Glargine (Lantus), 28 UNITS SC HS Lactulose (Chronulac), 20 GM PO TID Levetiractam (Levetiracetam), 500 MG PO AMHS Levothyroxine Sodium (Synthroid), 75 MCG PO DAILY Magnesium Oxide (Mag-Ox), 400 MG PO BID Nystatin (Nystatin Suspension), 5 ML PO QID Pantoprazole (Protonix), 40 MG PO BID Propranolol (Inderal), 10 MG PO BID Pyridoxine Hcl (Vitamin B-6), 25 MG PO HS Rifaximin (Xifaxan), 550 MG PO AMHS Spironolactone (Aldactone), 1 TAB PO DAILY Scheduled PRN Diphenhydramine Hcl (Sleep) (Diphenhydramine Hcl), 25 MG PO BID PRN for Itching Hydromorphone Hcl (Dilaudid), 4 MG PO TID PRN for Pain Ondasetron Odt (Zofran Odt), 4 MG SL Q6H PRN for Nausea or Vomiting Triamcinolone Acet (Aristocort 0.1%), 1 APPL EXT BID PRN for dermatitis Allergies Coded Allergies: Acetaminophen (Verified Allergy, Severe, ESLD (BETANCOURT). on Liver transplant list. Cannot have APAP., 06/07/16) Morphine (Verified Allergy, Severe, RED HIVE WENT UP ARM FROM IV SITE, 07/12) NSAIDs (Verified Allergy, Severe, DUE TO LIVER DISEAS, 06/07/16) Penicillins (Verified Allergy, Severe, JOINT SWELLING AND FEVER, 06/07/16) Levofloxacin (Verified Allergy, Mild, RASH, 06/07/16) pt developed erythema at site of IV injection with itching Vancomycin (Verified Allergy, Mild, HIVES, 06/07/16) HIVES Tramadol (Verified Allergy, Unknown, NOT TO TAKE WITH KEPPRA DUE TO SEIZURE RISK, 06/07/16) Physical Exam Vital Signs Date Time Temp Pulse Resp B/P (MAP) Pulse Ox O2 Delivery O2 Flow Rate FiO2 07/12/16 22:55 36.8 69 22 132/86 98 Room Air 07/12/16 22:47 69 Physical Exam GENERAL: Awake, alert, well-appearing, in no distress HENT: Normocephalic, atraumatic. Oropharynx unremarkable. EYES: Normal conjunctiva. Sclera non-icteric. NECK: Supple. No nuchal rigidity. FROM. No JVD. RESPIRATORY: Clear to auscultation. CARDIAC: Regular rate, normal rhythm. Extremities warm and well perfused. Pulses equal. ABDOMEN: Soft, distended with a fluid wave. No tenderness to palpation. No rebound or guarding. No masses. RECTAL: Deferred. MUSCULOSKELETAL: Chest examination reveals no tenderness. The back is symmetrical on inspection without obvious abnormality. There is no CVA tenderness to palpation. No joint edema. LOWER EXTREMITIES: Calves are equal size bilaterally and non-tender. No edema. No discoloration. NEURO: Normal sensorium. No sensory or motor deficits noted. SKIN: No rash or jaundice noted. Medical Decision & Procedures ER Provider Diagnostic Interpretation: Lab work was reviewed by me Laboratory Results 07/13/16 00:00 Red Blood Count 4.35, Mean Corpuscular Volume 82.3, Mean Corpuscular Hemoglobin 27.4, Mean Corpuscular Hemoglobin Concent 33.2, Neutrophils (%) (Auto) 78.7, Lymphocytes (%) (Auto) 8.8, Monocytes (%) (Auto) 9.8, Eosinophils (%) (Auto) 2.2 , Basophils (%) (Auto) 0.4, Neutrophils # (Auto) 7.42, Lymphocytes # (Auto) 0.83 , Monocytes # (Auto) 0.92, Eosinophils # (Auto) 0.21, Basophils # (Auto) 0.04 07/13/16 00:00 Test 07/12/16 23:49 07/13/16 00:00 Urine Color ORANGE Urine Appearance CLEAR (CLEAR) Urine pH 5.5 (4.5-7.5) Urine Specific Gary 1.028 (1.000-1.030) Urine Protein NEG (NEG) Urine Glucose (UA) NEG (NEG) Urine Ketones TRACE (NEG) Urine Occult Blood NEG (NEG) Urine Nitrite POS (NEG) Urine Bilirubin NEG (NEG) Urine Urobilinogen NEG (NEG) Urine Leukocyte Esterase NEG (NEG) Urine WBC (Auto) 1-5 /hpf (0-5) Urine RBC (Auto) 0-4 /hpf (0-4) Urine Hyaline Casts (Auto) 1-5 /lpf (0-5) Urine Epithelial Cells (Auto) 5-10 /lpf (0-5) Urine Bacteria (Auto) NEG (NEG) White Blood Count 9.43 K/uL (4.8-10.8) Red Blood Count 4.35 M/uL (4.7-6.1) Hemoglobin 11.9 g/dL (14.0-18.0) Hematocrit 35.8 % (42-52) Mean Corpuscular Volume 82.3 fL (80-100) Mean Corpuscular Hemoglobin 27.4 pg (25-34) Mean Corpuscular Hemoglobin Concent 33.2 g/dl (32-36) Platelet Count 80 K/uL (130-400) Neutrophils (%) (Auto) 78.7 % Lymphocytes (%) (Auto) 8.8 % Monocytes (%) (Auto) 9.8 % Eosinophils (%) (Auto) 2.2 % Basophils (%) (Auto) 0.4 % Neutrophils # (Auto) 7.42 K/uL (1.4-6.5) Lymphocytes # (Auto) 0.83 K/uL (1.2-3.4) Monocytes # (Auto) 0.92 K/uL (0.11-0.59) Eosinophils # (Auto) 0.21 K/uL (0-0.5) Basophils # (Auto) 0.04 K/uL (0-0.2) RDW Standard Deviation 54.9 fL (36.4-46.3) RDW Coefficient of Variation 18.3 % (11.5-14.5) Immature Granulocyte % (Auto) 0.1 % Immature Granulocyte # (Auto) 0.01 K/uL (0.00-0.02) Platelet Estimate DECREASED Tear Drop Cells 1+ Prothrombin Time 14.0 SECONDS (9.0-12.0) Prothromb Time International Ratio 1.3 (0.9-1.1) Anion Gap 9.0 mmol/L (3-11) Est Creatinine Clear Calc Drug Dose 84.1 ml/min Estimated GFR () 93.1 Estimated GFR (Non- 80.3 BUN/Creatinine Ratio 10.7 (10-20) Calcium Level 8.4 mg/dl (8.5-10.1) Total Bilirubin 1.8 mg/dl (0.2-1) Direct Bilirubin 0.6 mg/dl (0-0.2) Aspartate Amino Transf (AST/SGOT) 35 U/L (15-37) Alanine Aminotransferase (ALT/SGPT) 24 U/L (12-78) Alkaline Phosphatase 125 U/L (45-117) Total Protein 6.0 gm/dl (6.4-8.2) Albumin 2.8 gm/dl (3.4-5.0) Lipase 195 U/L (73-393) Laboratory results reviewed by me Medications Administered Medications (Trade) Dose Ordered Sig/Ryan Route Start Time Stop Time Status Last Admin Dose Admin Hydromorphone HCl (Dilaudid Inj) 1 mg NOW STAT IV 07/12/16 22:59 07/12/16 23:01 DC 07/12/16 22:59 1 MG Ondansetron HCl (Zofran Inj) 4 mg STK-MED ONCE .ROUTE 07/12/16 23:35 07/12/16 23:36 DC 07/12/16 23:35 4 MG ED Course 2253: The patient was evaluated in room B11B. A complete history and physical exam was performed. 2259: Ordered Dilaudid Inj 1mg IV 2335: Ordered Zofran Inj 4mg .ROUTE 0114: Upon reexamination, the patient was resting and in no distress. I discussed the test results and treatment plan with him. I discussed the patient' s case with Korey Veronica PA-C [facility] Hospitalist. The patient will be evaluated for further management. Medical Decision Ascites, cirrhosis, renal insufficiency. Medication Reconciliation: I attest that I have personally reviewed the patient' s current medication list. Blood pressure screening: Patient was found to have normal blood pressure on screening and does not require follow-up. This patient is well-known to the emergency department as well as a hospital for a history of ascites requiring paracentesis. Patient had a paracentesis last week and reportedly had 8 L removed. Patient states increased distention of the abdomen with slight shortness of breath. Patient is also under pain management and requested IV pain medicine. Patient is stable is no evidence of bacterial peritonitis on my examination of the patient's abdomen. Case was discussed with the [facility] hospitalist for admission for paracentesis Consults Time Called: 57 Consulting Physician: COURT Carlton Returned Call: [phone] I discussed the patient's case with COURT Carlton. The patient will be evaluated for further management. Impression Primary Impression: Ascites Scribe Attestation The scribe's documentation has been prepared under my direction and personally reviewed by me in its entirety. I confirm that the note above accurately reflects all work, treatment, procedures, and medical decision making performed by me. Departure Information Dispostion Being Evaluated By Hospitalist Referrals Chacha Munoz D.O. (PCP)
[2016-07-12] MEDS ORDERED: HYDROmorphone INJ 1 MG/ML SYR ONE (23:31)
[2016-07-12] MEDS ORDERED: ONDANSETRON INJ 2 MG/ML 2 ML VIAL ONE (23:35)
[2016-07-13] VITALS (12 sets, daily range): BP systolic 95–142; BP diastolic 52–79; PULSE 55–74; TEMP 36.5–37.1; O2SAT 94–99; BMI 26.6
[2016-07-13] LABS: URINE APPEARANCE CLEAR (CLEAR); URINE COLOR ORANGE; URINE NITRITE POS (NEG); URINE PH 5.5 (4.5-7.5); URINE SPECIFIC GRAVITY 1.028 (1.000-1.030); UROBILINOGEN NEG (NEG); ZZUR CULT IF INDIC CLEAN CATCH NO
[2016-07-13 00:05] LABS: MANUAL MICROSCOPIC REQUIRED? NO; REVIEW REQ? NO; URINE BILIRUBIN NEG (NEG)
[2016-07-13 00:09] LABS: MEAN CORPUSCULAR HGB CONC 33.2 g/dl (32-36)
[2016-07-13 00:19] LABS: HEMATOCRIT 35.8 % (42-52); MEAN CELL VOLUME 82.3 fL (80-100); MEAN CORPUSCULAR HEMOGLOBIN 27.4 pg (25-34); RED BLOOD COUNT 4.35 M/uL (4.7-6.1); WHITE BLOOD COUNT 9.43 K/uL (4.8-10.8)
[2016-07-13 00:29] LABS: BUN/CREATININE RATIO 10.7 (10-20); CALCIUM 8.4 mg/dl (8.5-10.1); POTASSIUM 4.4 mmol/L (3.5-5.1)
[2016-07-13 00:43] LABS: BASO % 0.4 %; BASO ABS # 0.04 K/uL (0-0.2); COMPLETE YES; EOS % 2.2 %; IG% 0.1 %; LYMPH % 8.8 %; LYMPH ABS # 0.83 K/uL (1.2-3.4); MONO % 9.8 %; NEUT % 78.7 %; PLATELET COUNT 80 K/uL (130-400); PLT ESTIMATE DECREASED; TEAR DROP CELLS 1+
[2016-07-13 00:57] LABS: INR 1.3 (0.9-1.1)
[2016-07-13] MEDS ORDERED: GLUCOSE 40% GEL 15 GM TUBE PO PRN ×2 (02:00→13:00)
[2016-07-13] MEDS ORDERED: MAGNESIUM HYDROXIDE SUSP 30 ML UDC PO PRN (02:00)
[2016-07-13] MEDS ORDERED: POLYETHYLENE (MIRALAX) 17 GM PACK PO PRN (02:00)
[2016-07-13] MEDS ORDERED: GLUCAGON FOR INJ 1 MG VIAL SQ PRN ×2 (02:00→13:00)
[2016-07-13] MEDS ORDERED: DEXTROSE 50% 50 ML SYR IV PRN ×2 (02:00→13:00)
[2016-07-13] MEDS ORDERED: GLUCOSE 10 TABS/TUBE PO PRN ×2 (02:00→13:00)
[2016-07-13] MEDS ORDERED: ALUMINUM/MAGNESIUM/SIMETH (MAALOX MAX) 30 ML UDC PO PRN (02:00)
[2016-07-13] MEDS ORDERED: IV FLUIDS COMPLETED PRN (04:15)
--- NOTE | 2016-07-13 04:39 | History and Physical ---
History & Physical Date & Time of Service: Jul 13, 2016 at 04:25 Chief Complaint: Ascities, Betancourt Primary Care Physician: Chacha Munoz D.O. History of Present Illness Source: patient, clinic records, hospital records This is a 61 year old male with a PMH of BETANCOURT cirrhosis, recurrent ascites requiring recurrent paracentesis, multiple complications regarding cirrhosis including encephalopathy, esophageal varices, thrombocytopenia; he has insulin dependent DM2, Hypothyroidism, HLD, chronic pain syndrome presents due to increased abdominal swelling and fluid build-up. He was here in late June, and had 8L removed on 07/02. Denies fevers/chills, nausea/vomiting. C/o diarrhea due to lactulose. 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 Surgical Problems: (1) H/O esophagogastroduodenoscopy Status: Resolved (2) H/O knee surgery Status: Resolved (3) S/P cervical spinal fusion Status: Resolved (4) S/P IVC filter Status: Resolved (5) S/P lumbar fusion Status: Resolved (6) S/P T&A (status post tonsillectomy and adenoidectomy) Status: Resolved Family History FH: CAD (coronary artery disease) FATHER FH: breast cancer MOTHER Social History Smoking Status: Never Smoker Drug Use: none Marital Status: single Housing status: lives with roommate Occupational Status: retired Immunizations History of Influenza Vaccine: Yes Influenza Vaccine Date: Oct 21, 2014 History of Tetanus Vaccine?: Yes Tetanus Immunization Date: Mar 15, 1972 History of Pneumococcal: Yes Pneumococcal Date: Feb 05, 2009 History of Hepatitis B Vaccine: Yes Hepatitis Immunization Date: June 18, 2013 Multi-Drug Resistant Organisms History of MDRO: No Allergies Coded Allergies: Acetaminophen (Verified Allergy, Severe, ESLD (BETANCOURT). on Liver transplant list. Cannot have APAP., 06/07/16) Morphine (Verified Allergy, Severe, RED HIVE WENT UP ARM FROM IV SITE, 07/12) NSAIDs (Verified Allergy, Severe, DUE TO LIVER DISEAS, 06/07/16) Penicillins (Verified Allergy, Severe, JOINT SWELLING AND FEVER, 06/07/16) Levofloxacin (Verified Allergy, Mild, RASH, 06/07/16) pt developed erythema at site of IV injection with itching Vancomycin (Verified Allergy, Mild, HIVES, 06/07/16) HIVES Tramadol (Verified Allergy, Unknown, NOT TO TAKE WITH KEPPRA DUE TO SEIZURE RISK, 06/07/16) Home Medications Scheduled Escitalopram (Lexapro), 10 MG PO DAILY Ferrous Sulfate (Kp Ferrous Sulfate), 325 MG PO BID Furosemide (Lasix), 20 MG PO BID Insulin Aspart (Novolog), 10 UNITS SQ TIDM Insulin Glargine (Lantus), 28 UNITS SC HS Lactulose (Chronulac), 20 GM PO TID Levetiractam (Levetiracetam), 500 MG PO AMHS Levothyroxine Sodium (Synthroid), 75 MCG PO DAILY Magnesium Oxide (Mag-Ox), 400 MG PO BID Nystatin (Nystatin Suspension), 5 ML PO QID Pantoprazole (Protonix), 40 MG PO BID Propranolol (Inderal), 10 MG PO BID Pyridoxine Hcl (Vitamin B-6), 25 MG PO HS Rifaximin (Xifaxan), 550 MG PO AMHS Spironolactone (Aldactone), 1 TAB PO DAILY Scheduled PRN Diphenhydramine Hcl (Sleep) (Diphenhydramine Hcl), 25 MG PO BID PRN for Itching Hydromorphone Hcl (Dilaudid), 4 MG PO TID PRN for Pain Ondasetron Odt (Zofran Odt), 4 MG SL Q6H PRN for Nausea or Vomiting Triamcinolone Acet (Aristocort 0.1%), 1 APPL EXT BID PRN for dermatitis Review of Systems Constitutional: No fever, No chills, No sweats, No weight loss, No weakness, No fatigue Respiratory: No cough, No sputum, No shortness of breath, No dyspnea on exertion, No dyspnea at rest, No hemoptysis Cardiovascular: No chest pain, No edema, No palpitations Abdomen: + pain, No nausea, No vomiting, No diarrhea, No constipation, No GI bleeding Musculoskeletal: + joint pain (chronic back pain), No muscle pain Genitourinary - Male: No hematuria, No dysuria, No urinary frequency, No urinary urgency Neurologic: No weakness, No numbness/tingling, No vertigo, No balance problems Psychiatric: No depression symptoms, No anxiety, No insomnia Endocrine: No fatigue Hematologic / Lymphatic: No abnormal bleeding/bruising Integumentary: No rash Allergic / Immunologic: No environmental allergies, No seasonal allergies Physical Exam Vital Signs Date Time Temp Pulse Resp B/P (MAP) Pulse Ox O2 Delivery O2 Flow Rate FiO2 07/13/16 01:14 64 20 128/72 95 Room Air 07/12/16 22:55 36.8 69 22 132/86 98 Room Air 07/12/16 22:47 69 General Appearance: no apparent distress, + pertinent finding (appears older than stated age) Head: normocephalic, atraumatic Eyes: normal inspection ENT: hearing grossly normal Respiratory/Chest: chest non-tender, lungs clear, normal breath sounds, no respiratory distress, no accessory muscle use Cardiovascular: regular rate, rhythm, no edema, no murmur Abdomen/GI: + tenderness, + distended, + hernia Extremities/Musculoskelatal: normal capillary refill, no pedal edema Neurologic/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: 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, no motor/sensory deficits, alert, normal mood/affect, oriented x 3 Skin: normal color Lymphatic: no adenopathy Diagnostics Laboratory Results Results Past 24 Hours Test 07/12/16 23:49 07/13/16 00:00 Range/Units Urine Color ORANGE Urine Appearance CLEAR CLEAR Urine pH 5.5 4.5-7.5 Urine Specific [place] 1.028 1.000-1.030 Urine Protein NEG NEG Urine Glucose (UA) NEG NEG Urine Ketones TRACE NEG Urine Occult Blood NEG NEG Urine Nitrite POS NEG Urine Bilirubin NEG NEG Urine Urobilinogen NEG NEG Urine Leukocyte Esterase NEG NEG Urine WBC (Auto) 1-5 0-5 /hpf Urine RBC (Auto) 0-4 0-4 /hpf Urine Hyaline Casts (Auto) 1-5 0-5 /lpf Urine Epithelial Cells (Auto) 5-10 0-5 /lpf Urine Bacteria (Auto) NEG NEG White Blood Count 9.43 4.8-10.8 K/uL Red Blood Count 4.35 4.7-6.1 M/uL Hemoglobin 11.9 14.0-18.0 g/dL Hematocrit 35.8 42-52 % Mean Corpuscular Volume 82.3 80-100 fL Mean Corpuscular Hemoglobin 27.4 25-34 pg Mean Corpuscular Hemoglobin Concent 33.2 32-36 g/dl Platelet Count 80 130-400 K/uL Neutrophils (%) (Auto) 78.7 % Lymphocytes (%) (Auto) 8.8 % Monocytes (%) (Auto) 9.8 % Eosinophils (%) (Auto) 2.2 % Basophils (%) (Auto) 0.4 % Neutrophils # (Auto) 7.42 1.4-6.5 K/uL Lymphocytes # (Auto) 0.83 1.2-3.4 K/uL Monocytes # (Auto) 0.92 0.11-0.59 K/uL Eosinophils # (Auto) 0.21 0-0.5 K/uL Basophils # (Auto) 0.04 0-0.2 K/uL RDW Standard Deviation 54.9 36.4-46.3 fL RDW Coefficient of Variation 18.3 11.5-14.5 % Immature Granulocyte % (Auto) 0.1 % Immature Granulocyte # (Auto) 0.01 0.00-0.02 K/uL Platelet Estimate DECREASED Tear Drop Cells 1+ Prothrombin Time 14.0 9.0-12.0 SECONDS Prothromb Time International Ratio 1.3 0.9-1.1 Sodium Level 143 136-145 mmol/L Potassium Level 4.4 3.5-5.1 mmol/L Chloride Level 110 98-107 mmol/L Carbon Dioxide Level 24 21-32 mmol/L Anion Gap 9.0 3-11 mmol/L Blood Urea Nitrogen 11 7-18 mg/dl Creatinine 1.00 0.60-1.40 mg/dl Est Creatinine Clear Calc Drug Dose 84.1 ml/min Estimated GFR () 93.1 Estimated GFR (Non- 80.3 BUN/Creatinine Ratio 10.7 10-20 Random Glucose 231 70-99 mg/dl Calcium Level 8.4 8.5-10.1 mg/dl Total Bilirubin 1.8 0.2-1 mg/dl Direct Bilirubin 0.6 0-0.2 mg/dl Aspartate Amino Transf (AST/SGOT) 35 15-37 U/L Alanine Aminotransferase (ALT/SGPT) 24 12-78 U/L Alkaline Phosphatase 125 45-117 U/L Total Protein 6.0 6.4-8.2 gm/dl Albumin 2.8 3.4-5.0 gm/dl Lipase 195 73-393 U/L Impression Assessment and Plan This is a 61 year old male with a PMH of BETANCOURT cirrhosis, recurrent ascites requiring recurrent paracentesis, multiple complications regarding cirrhosis including encephalopathy, esophageal varices, thrombocytopenia; he has insulin dependent DM2, Hypothyroidism, HLD, chronic pain syndrome presents due to recurrent ascites Recurrent Ascites in the setting of BETANCOURT cirrhosis patient presents with worsening ascites no fevers/chills, no leukocytosis will obtain U/S guided paracentesis; therapeutic only continue current medication regimen including Lasix, Aldactone, Rifaximin, Vitamin B-6, Propranolol, Protonix BID hold Lactulose if diarrhea persists will see specialist in [place] - facility manager histology for possible TIPS procedure Insulin Dependent DM2 Ha1c > 11% currently NPO Lantus 14 units for now, back to 28 units when eating Novolog 10 units TID Chronic Pain Syndrome continue Dilaudid PO no IV pain medications needed at this time Hypothyroidism continue Synthroid Seizure Disorder continue Keppra DVT ppx SCDs FULL CODE VTE Prophylaxis VTE Risk Assessment Done? Y/N: Yes Risk Level: High
[2016-07-13] MEDS: ONDANSETRON INJ 2 MG/ML 2 ML VIAL IV PRN ×2 (05:07→14:09)
[2016-07-13] MEDS: HYDROmorphone HCL 2 MG TAB PO PRN ×2 (06:15→17:35)
[2016-07-13] MEDS: LEVOTHYROXINE 75 MCG TAB PO SCH (06:16)
[2016-07-13 06:22] LABS: HEMATOCRIT 34.7 % (42-52); MEAN CELL VOLUME 83.2 fL (80-100); MEAN CORPUSCULAR HEMOGLOBIN 27.8 pg (25-34); MEAN CORPUSCULAR HGB CONC 33.4 g/dl (32-36); PLATELET COUNT 68 K/uL (130-400); PLT ESTIMATE DECREASED; RED BLOOD COUNT 4.17 M/uL (4.7-6.1); WHITE BLOOD COUNT 7.35 K/uL (4.8-10.8)
[2016-07-13 06:37] LABS: BUN/CREATININE RATIO 10.6 (10-20); CREATININE 0.96 mg/dl (0.60-1.40); POTASSIUM 4.2 mmol/L (3.5-5.1)
[2016-07-13] MEDS ORDERED: INSULIN ASPART 100 UNITS/ML 3 ML PEN SQ SCH (08:00)
[2016-07-13] MEDS: LACTULOSE SYRUP 20 GM/30 ML UDC PO SCH ×3 (08:06→19:45)
[2016-07-13] MEDS: FUROSEMIDE 20 MG TAB PO SCH ×2 (08:06→17:36)
[2016-07-13] MEDS: SPIRONOLACTONE 100 MG TAB PO SCH (08:06)
[2016-07-13] MEDS: PROPRANOLOL HCL 10 MG TAB PO SCH ×2 (08:06→19:48)
[2016-07-13] MEDS: ESCITALOPRAM OXALATE 10 MG TAB PO SCH (08:18)
[2016-07-13] MEDS: MAGNESIUM OXIDE 400 MG TAB PO SCH ×2 (08:18→19:48)
[2016-07-13] MEDS: LEVETIRACETAM 500 MG TAB PO SCH ×2 (08:19→19:48)
[2016-07-13] MEDS: PANTOprazole SOD 40 MG TAB PO SCH ×2 (08:19→19:48)
[2016-07-13] MEDS: RIFAXIMIN TAB 550 MG TAB PO SCH ×2 (08:19→19:48)
[2016-07-13] MEDS ORDERED: ALBUMIN HUMAN 25% 12.5 GM/50 ML VIAL IV ONE ×3 (08:30→13:30)
[2016-07-13] MEDS ORDERED: NURSING VERBAL MED ORDER ONE ×2 (08:45)
--- NOTE | 2016-07-13 11:51 | DIAGNOSTIC IMAGING REPORT ---
PARACENTESIS UNDER ULTRASOUND GUIDANCE CLINICAL HISTORY: Ascites COMPARISON STUDY: 07/02/2016 FINDINGS: The risks, benefits, and alternatives to the procedure were discussed with the patient. Written informed consent was obtained. Following real-time ultrasound localization, the skin was prepped and draped. Following local anesthesia with Xylocaine, the sheath paracentesis needle was inserted and approximately 7.4 liters of straw-colored fluid was removed by vacuum suction. A left lower quadrant approach was utilized. The patient tolerated the procedure well and left the department in satisfactory condition. IMPRESSION: Successful ultrasound-guided paracentesis with removal of approximately 7.4 liters of ascitic fluid. Electronically signed by: Pawan Garner M.D. 07/13/2016 11:50 AM Dictated Date/Time: 07/13/2016 11:49 AM
[2016-07-13] MEDS: INSULIN ASPART 100 UNITS/ML 3 ML PEN SC SCH ×3 (13:49→20:34)
--- NOTE | 2016-07-13 16:52 | Progress Note ---
Medicine Progress Note Date & Time of Visit: Jul 13, 2016 at 16:36. Subjective Pt was seen and examined Lying in bed with no distress Pt said that he feels much better after the paracentesis He still has some abdominal pain denies any chest pain, palpitation and sob Objective Last 8 Hrs Date Time Temp Pulse Resp B/P (MAP) Pulse Ox O2 Delivery O2 Flow Rate FiO2 07/13/16 16:00 Room Air 07/13/16 14:59 36.6 60 18 103/58 (73) 96 Room Air 07/13/16 13:53 74 124/71 (88) 07/13/16 13:08 36.5 55 16 118/58 (78) 99 07/13/16 11:59 36.7 57 18 142/79 (100) 98 Room Air 07/13/16 10:01 68 111/69 (83) 95 Room Air 07/13/16 09:25 65 120/67 (84) 94 Room Air 07/13/16 09:01 65 112/68 (83) 95 07/13/16 08:37 36.7 65 18 116/73 (87) 95 Physical Exam: General- No acute distress Head- atraumatic Eyes- PERRL, EOMI ENT- oropharynx clear Neck- supple, no JVD Lungs- clear to auscultation Heart- regular rhythm; no murmur Abdomen- normal bowel sounds, soft, +mild tender Extremities- no calf tenderness Neuro- alert, oriented x 3; PERRL, EOMI; no facial palsy Skin- warm & dry Laboratory Results: Last 24 Hours Test 07/12/16 23:49 07/13/16 00:00 07/13/16 05:30 07/13/16 07:17 Urine Color ORANGE Urine Appearance CLEAR Urine pH 5.5 Urine Specific [place] 1.028 Urine Protein NEG Urine Glucose (UA) NEG Urine Ketones TRACE Urine Occult Blood NEG Urine Nitrite POS Urine Bilirubin NEG Urine Urobilinogen NEG Urine Leukocyte Esterase NEG Urine WBC (Auto) 1-5 /hpf Urine RBC (Auto) 0-4 /hpf Urine Hyaline Casts (Auto) 1-5 /lpf Urine Epithelial Cells (Auto) 5-10 /lpf Urine Bacteria (Auto) NEG White Blood Count 9.43 K/uL 7.35 K/uL Red Blood Count 4.35 M/uL 4.17 M/uL Hemoglobin 11.9 g/dL 11.6 g/dL Hematocrit 35.8 % 34.7 % Mean Corpuscular Volume 82.3 fL 83.2 fL Mean Corpuscular Hemoglobin 27.4 pg 27.8 pg Mean Corpuscular Hemoglobin Concent 33.2 g/dl 33.4 g/dl Platelet Count 80 K/uL 68 K/uL Neutrophils (%) (Auto) 78.7 % Lymphocytes (%) (Auto) 8.8 % Monocytes (%) (Auto) 9.8 % Eosinophils (%) (Auto) 2.2 % Basophils (%) (Auto) 0.4 % Neutrophils # (Auto) 7.42 K/uL Lymphocytes # (Auto) 0.83 K/uL Monocytes # (Auto) 0.92 K/uL Eosinophils # (Auto) 0.21 K/uL Basophils # (Auto) 0.04 K/uL RDW Standard Deviation 54.9 fL 56.5 fL RDW Coefficient of Variation 18.3 % 18.6 % Immature Granulocyte % (Auto) 0.1 % Immature Granulocyte # (Auto) 0.01 K/uL Platelet Estimate DECREASED DECREASED Tear Drop Cells 1+ Prothrombin Time 14.0 SECONDS Prothromb Time International Ratio 1.3 Sodium Level 143 mmol/L 143 mmol/L Potassium Level 4.4 mmol/L 4.2 mmol/L Chloride Level 110 mmol/L 109 mmol/L Carbon Dioxide Level 24 mmol/L 28 mmol/L Anion Gap 9.0 mmol/L 6.0 mmol/L Blood Urea Nitrogen 11 mg/dl 10 mg/dl Creatinine 1.00 mg/dl 0.96 mg/dl Est Creatinine Clear Calc Drug Dose 84.1 ml/min 77.2 ml/min Estimated GFR () 93.1 97.8 Estimated GFR (Non- 80.3 84.4 BUN/Creatinine Ratio 10.7 10.6 Random Glucose 231 mg/dl 213 mg/dl Calcium Level 8.4 mg/dl 8.0 mg/dl Total Bilirubin 1.8 mg/dl Direct Bilirubin 0.6 mg/dl Aspartate Amino Transf (AST/SGOT) 35 U/L Alanine Aminotransferase (ALT/SGPT) 24 U/L Alkaline Phosphatase 125 U/L Total Protein 6.0 gm/dl Albumin 2.8 gm/dl Lipase 195 U/L Hepatitis C Antibody Screen NEG Bedside Glucose 199 mg/dl Test 07/13/16 11:53 Bedside Glucose 170 mg/dl Assessment & Plan Recurrent Cirrhosis 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 h/o noncompliance with insulin Hba1c 11.6 (04/03/16) check Hba1c in am On lantus as per protocol on insulin coverage Continue monitor BS Anemia Secondary to anemia chronic disease. Hbg 11.6 today continue monitor cbc CKD III Creatine stable Avoid nephrotoxic agents Continue monitor BMP Thrombocytopenia Platelet 68 No active bleeding Stable Hypothyroidism continue Synthroid Stable Seizure Disorder continue Keppra Stable Chronic lower back pain Continue current pain management DVT px on SCDs due to low platelet CODE STATUS FULL CODE DISPOSITION Will discharge home tomorrow Current Inpatient Medications: Current Inpatient Medications Medications (Trade) Dose Ordered Sig/Ryan Route Start Time Stop Time Status Last Admin Dose Admin Al Hydrox/Mg Hydrox/Simethicone (Maalox Max Susp) 15 ml Q4H PRN PO 07/13/16 02:00 08/12/16 01:59 Magnesium Hydroxide (Milk Of Magnesia Susp) 30 ml Q6H PRN PO 07/13/16 02:00 08/12/16 01:59 Polyethylene (Miralax Powder Packet) 17 gm DAILY PRN PO 07/13/16 02:00 08/12/16 01:59 Ondansetron HCl (Zofran Inj) 4 mg Q6H PRN IV 07/13/16 02:00 08/12/16 01:59 07/13/16 14:09 4 MG Escitalopram Oxalate (Lexapro Tab) 10 mg DAILY PO 07/13/16 09:00 08/12/16 08:59 07/13/16 08:18 10 MG Hydromorphone HCl (Dilaudid Tab) 4 mg TID PRN PO 07/13/16 02:00 07/27/16 01:59 07/13/16 06:15 4 MG Levetiracetam (Keppra Tab) 500 mg AMHS PO 07/13/16 09:00 08/12/16 08:59 07/13/16 08:19 500 MG Levothyroxine Sodium (Synthroid Tab) 75 mcg DAILYBB PO 07/13/16 06:30 08/12/16 06:29 07/13/16 06:16 75 MCG Magnesium Oxide (Mag-Ox Tab) 400 mg BID PO 07/13/16 09:00 08/12/16 08:59 07/13/16 08:18 400 MG Pantoprazole Sodium (Protonix Tab) 40 mg BID PO 07/13/16 09:00 08/12/16 08:59 07/13/16 08:19 40 MG Propranolol HCl (Inderal Tab) 10 mg BID PO 07/13/16 09:00 08/12/16 08:59 Rifaximin (Xifaxan Tab) 550 mg AMHS PO 07/13/16 09:00 08/12/16 08:59 07/13/16 08:19 550 MG Spironolactone (Aldactone Tab) 100 mg DAILY PO 07/13/16 09:00 08/12/16 08:59 Pyridoxine HCl (Vitamin B-6 Tab) 25 mg HS PO 07/13/16 21:00 08/12/16 20:59 Glucose (Glucose 40% Gel) 15-30 GRAMS 15 GRAMS... UD PRN PO 07/13/16 02:00 08/12/16 01:59 Glucose (Glucose Chew Tab) 4-8 Tablets 4 Tabl... UD PRN PO 07/13/16 02:00 08/12/16 01:59 Dextrose (Dextrose 50% 50ML Syringe) 25-50ML OF 50% DW IV FOR... UD PRN IV 07/13/16 02:00 08/12/16 01:59 Glucagon (Glucagon Inj) 1 mg UD PRN SQ 07/13/16 02:00 08/12/16 01:59 Furosemide (Lasix Tab) 20 mg BID17 PO 07/13/16 09:00 08/12/16 08:59 Insulin Glargine (Lantus Solostar Pen) 14 unit HS SC 07/13/16 21:00 08/12/16 20:59 Lactulose (Chronulac Syrup) 20 gm TID PO 07/13/16 09:00 08/12/16 08:59 Ondansetron HCl (Zofran Odt) 4 mg Q6H PRN SL 07/13/16 02:15 08/12/16 02:14 Miscellaneous (Iv Fluids Completed) 1 ea PRN PRN N/A 07/13/16 04:15 07/13/17 04:14 Insulin Aspart (novoLOG ASPART) SLIDING SCALE If C... ACHS SC 07/13/16 16:30 08/12/16 16:29 07/13/16 13:49 2 UNITS
[2016-07-13] MEDS: PYRIDOXINE HCL 50 MG TAB PO SCH (19:48)
[2016-07-13] MEDS: INSULIN GLARGINE SOLOSTAR 100 UNITS/ML 3 ML PEN SC SCH (20:35)
[2016-07-13] MEDS: ONDANSETRON 4MG OD TAB SL PRN (21:50)
[2016-07-14] VITALS (7 sets, daily range): BP systolic 92–114; BP diastolic 53–68; PULSE 56–71; TEMP 36.7–36.9; O2SAT 93–96; Ht 172.7 cm; Wt 79.5 kg
[2016-07-14] MEDS: HYDROmorphone HCL 2 MG TAB PO PRN ×2 (06:10→15:44)
[2016-07-14] MEDS: LEVOTHYROXINE 75 MCG TAB PO SCH (06:10)
[2016-07-14] MEDS: LACTULOSE SYRUP 20 GM/30 ML UDC PO SCH ×3 (08:19→20:36)
[2016-07-14] MEDS: PROPRANOLOL HCL 10 MG TAB PO SCH ×2 (08:20→20:46)
[2016-07-14] MEDS: SPIRONOLACTONE 100 MG TAB PO SCH (08:20)
[2016-07-14] MEDS: ESCITALOPRAM OXALATE 10 MG TAB PO SCH (08:21)
[2016-07-14] MEDS: RIFAXIMIN TAB 550 MG TAB PO SCH ×2 (08:21→20:56)
[2016-07-14] MEDS: LEVETIRACETAM 500 MG TAB PO SCH ×2 (08:22→20:55)
[2016-07-14] MEDS: PANTOprazole SOD 40 MG TAB PO SCH ×2 (08:22→20:56)
[2016-07-14] MEDS: FUROSEMIDE 20 MG TAB PO SCH ×2 (08:22→17:00)
[2016-07-14] MEDS: MAGNESIUM OXIDE 400 MG TAB PO SCH ×2 (08:23→20:55)
[2016-07-14] MEDS: INSULIN ASPART 100 UNITS/ML 3 ML PEN SC SCH ×4 (08:26→20:58)
[2016-07-14] MEDS ORDERED: ALBUMIN HUMAN 25% 12.5 GM/50 ML VIAL IV ONE (08:30)
[2016-07-14 08:45] LABS: ESTIMATED AVERAGE GLUCOSE 206 mg/dl; HA1C FLAG Normal (Normal)
[2016-07-14] MEDS: ONDANSETRON 4MG OD TAB SL PRN ×2 (12:48→20:40)
--- NOTE | 2016-07-14 15:03 | Progress Note ---
Medicine Progress Note Date & Time of Visit: Jul 14, 2016 at 14:49. Subjective Pt was seen and examined Sitting in bed with no distress Pt said that his abdominal pain improved Denies any chest pain, palpitation, dizziness and SOB Objective Last 8 Hrs Date Time Temp Pulse Resp B/P (MAP) Pulse Ox O2 Delivery O2 Flow Rate FiO2 07/14/16 08:18 71 112/68 (83) 07/14/16 08:00 Room Air 07/14/16 07:26 36.7 60 18 92/57 (69) 96 Room Air Physical Exam: General- No acute distress Head- atraumatic Eyes- PERRL, EOMI ENT- oropharynx clear Neck- supple, no JVD Lungs- clear to auscultation Heart- regular rhythm; no murmur Abdomen- normal bowel sounds, soft, +mild tender Extremities- no calf tenderness Neuro- alert, oriented x 3; PERRL, EOMI; no facial palsy Skin- warm & dry Laboratory Results: Last 24 Hours Test 07/13/16 16:26 07/13/16 19:38 07/14/16 06:30 07/14/16 07:36 Bedside Glucose 223 mg/dl 273 mg/dl 126 mg/dl Estimated Average Glucose 206 mg/dl Hemoglobin A1c 8.8 % Test 07/14/16 11:36 Bedside Glucose 229 mg/dl Assessment & Plan Recurrent Cirrhosis 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 Presents with worsening ascites no fevers/chills, no leukocytosis Last paracentesis was done on 07/04 where they removed 8L of ascites fluid s/p therapeutic paracentesis done today, 7.4 L ascites fluid removed Albumin given pre and post paracentesis continue current medication regimen including Lasix, Aldactone, Rifaximin, Vitamin B-6, Propranolol, Protonix BID Schedule to see specialist in [place] - power equipment mechanics instructor for possible TIPS procedure Lactulose on hold due to diarrhea advised pt to consider to schedule for outpatient paracentesis next or Sunday to avoid being admitted for tap He has an appointment on 07/27 with power equipment mechanics instructor in [place] Stable Diabetes Type 2 Uncontrolled. h/o noncompliance with insulin Hba1c 8.8 (07/14/16) On lantus as per protocol on insulin coverage Continue monitor BS Anemia Secondary to anemia chronic disease. Hbg 11.6 Stable CKD III Creatine stable Avoid nephrotoxic agents Continue monitor BMP Thrombocytopenia Platelet 68 No active bleeding Stable Hypothyroidism continue Synthroid Stable Seizure Disorder continue Keppra Stable Chronic lower back pain Continue current pain management DVT px on SCDs due to low platelet CODE STATUS FULL CODE DISPOSITION Will discharge home today Appointment on 07/27 with power equipment mechanics instructor in [place] Follow up appointment with your primary care physician Dr. Munoz on 07/24 at 11: 05 am Current Inpatient Medications: Current Inpatient Medications Medications (Trade) Dose Ordered Sig/Ryan Route Start Time Stop Time Status Last Admin Dose Admin Al Hydrox/Mg Hydrox/Simethicone (Maalox Max Susp) 15 ml Q4H PRN PO 07/13/16 02:00 08/12/16 01:59 Magnesium Hydroxide (Milk Of Magnesia Susp) 30 ml Q6H PRN PO 07/13/16 02:00 08/12/16 01:59 Polyethylene (Miralax Powder Packet) 17 gm DAILY PRN PO 07/13/16 02:00 08/12/16 01:59 Ondansetron HCl (Zofran Inj) 4 mg Q6H PRN IV 07/13/16 02:00 08/12/16 01:59 07/13/16 14:09 4 MG Escitalopram Oxalate (Lexapro Tab) 10 mg DAILY PO 07/13/16 09:00 08/12/16 08:59 07/14/16 08:21 10 MG Hydromorphone HCl (Dilaudid Tab) 4 mg TID PRN PO 07/13/16 02:00 07/27/16 01:59 07/14/16 06:10 4 MG Levetiracetam (Keppra Tab) 500 mg AMHS PO 07/13/16 09:00 08/12/16 08:59 07/14/16 08:22 500 MG Levothyroxine Sodium (Synthroid Tab) 75 mcg DAILYBB PO 07/13/16 06:30 08/12/16 06:29 07/14/16 06:10 75 MCG Magnesium Oxide (Mag-Ox Tab) 400 mg BID PO 07/13/16 09:00 08/12/16 08:59 07/14/16 08:23 400 MG Pantoprazole Sodium (Protonix Tab) 40 mg BID PO 07/13/16 09:00 08/12/16 08:59 07/14/16 08:22 40 MG Propranolol HCl (Inderal Tab) 10 mg BID PO 07/13/16 09:00 08/12/16 08:59 07/14/16 08:20 10 MG Rifaximin (Xifaxan Tab) 550 mg AMHS PO 07/13/16 09:00 08/12/16 08:59 07/14/16 08:21 550 MG Spironolactone (Aldactone Tab) 100 mg DAILY PO 07/13/16 09:00 08/12/16 08:59 07/14/16 08:20 100 MG Pyridoxine HCl (Vitamin B-6 Tab) 25 mg HS PO 07/13/16 21:00 08/12/16 20:59 07/13/16 19:48 25 MG Glucose (Glucose 40% Gel) 15-30 GRAMS 15 GRAMS... UD PRN PO 07/13/16 02:00 08/12/16 01:59 Glucose (Glucose Chew Tab) 4-8 Tablets 4 Tabl... UD PRN PO 07/13/16 02:00 08/12/16 01:59 Dextrose (Dextrose 50% 50ML Syringe) 25-50ML OF 50% DW IV FOR... UD PRN IV 07/13/16 02:00 08/12/16 01:59 Glucagon (Glucagon Inj) 1 mg UD PRN SQ 07/13/16 02:00 08/12/16 01:59 Furosemide (Lasix Tab) 20 mg BID17 PO 07/13/16 09:00 08/12/16 08:59 07/14/16 08:22 20 MG Insulin Glargine (Lantus Solostar Pen) 14 unit HS SC 07/13/16 21:00 08/12/16 20:59 07/13/16 20:35 14 UNIT Lactulose (Chronulac Syrup) 20 gm TID PO 07/13/16 09:00 08/12/16 08:59 Ondansetron HCl (Zofran Odt) 4 mg Q6H PRN SL 07/13/16 02:15 08/12/16 02:14 07/14/16 12:48 4 MG Miscellaneous (Iv Fluids Completed) 1 ea PRN PRN N/A 07/13/16 04:15 07/13/17 04:14 Insulin Aspart (novoLOG ASPART) SLIDING SCALE If C... ACHS SC 07/13/16 16:30 08/12/16 16:29 07/14/16 12:27 4 UNITS
--- NOTE | 2016-07-14 15:15 | Discharge Instructions ---
Discharge Instructions Date of Service Jul 14, 2016. Admission Reason for Admission: Ascites, [place] Discharge Discharge Diagnosis / Problem: Recurrent Cirrhosis, Diabetes Type 2, Anemia, Thrombocytopenia, Seizure Dx Discharge Goals Goal(s): Decrease discomfort, Improve function, Improve disease control Activity Recommendations Activity Limitations: resume your previous activity (as tolerated) . Instructions / Follow-Up Instructions / Follow-Up Discharge home today Keep appointment on 07/27 with Telecommunicator Supervisor in [place] Follow up appointment with your primary care physician Dr. Munoz on 07/24 at 11: 05 am Fall precaution Current Hospital Diet Patient's current hospital diet: Diabetes Type 2 Diet Discharge Diet Recommended Diet: Low Sodium Diet (2gm Na), Diabetes Type 2 Diet Fluid Restriction: 1500 ml (6 cups) Pending Studies Studies pending at discharge: no Laboratory Results Hemoglobin A1c Test 07/14/16 06:30 Range/Units Estimated Average Glucose 206 mg/dl Hemoglobin A1c 8.8 H 4.5-5.6 % Medical Emergencies . Who to Call and When: Medical Emergencies: If at any time you feel your situation is an emergency, please call 911 immediately. . Non-Emergent Contact Non-Emergency issues call your: Primary Care Provider Call Non-Emergent contact if: you have a fever, your pain is worsening, you have any medication questions . . "Provider Documentation" section prepared by Shiva French. . VTE Core Measure Inpt VTE Proph given/why not?: SCD's, Contraindicated
[2016-07-14] MEDS ORDERED: COUGH DROP (SUGAR FREE) LOZ 24 LOZ/1 BOX PO ONE (16:30)
[2016-07-14] MEDS: PYRIDOXINE HCL 50 MG TAB PO SCH (20:56)
[2016-07-14] MEDS: INSULIN GLARGINE SOLOSTAR 100 UNITS/ML 3 ML PEN SC SCH (20:58)
[2016-07-15] MEDS: HYDROmorphone HCL 2 MG TAB PO PRN ×2 (05:00→13:43)
[2016-07-15] MEDS: LEVOTHYROXINE 75 MCG TAB PO SCH (05:02)
[2016-07-15 07:21] VITALS: BP 104/52; PULSE 64; TEMP 36.8; O2SAT 97
[2016-07-15] MEDS: SPIRONOLACTONE 100 MG TAB PO SCH (08:17)
[2016-07-15] MEDS: RIFAXIMIN TAB 550 MG TAB PO SCH (08:18)
[2016-07-15] MEDS: ESCITALOPRAM OXALATE 10 MG TAB PO SCH (08:19)
[2016-07-15] MEDS: PROPRANOLOL HCL 10 MG TAB PO SCH (08:19)
[2016-07-15] MEDS: LACTULOSE SYRUP 20 GM/30 ML UDC PO SCH ×2 (08:20→13:41)
[2016-07-15] MEDS: LEVETIRACETAM 500 MG TAB PO SCH (08:20)
[2016-07-15] MEDS: PANTOprazole SOD 40 MG TAB PO SCH (08:20)
[2016-07-15] MEDS: FUROSEMIDE 20 MG TAB PO SCH (08:20)
[2016-07-15] MEDS: MAGNESIUM OXIDE 400 MG TAB PO SCH (08:20)
[2016-07-15] MEDS: INSULIN ASPART 100 UNITS/ML 3 ML PEN SC SCH ×2 (08:26→12:21)
[2016-07-15] MEDS: ONDANSETRON 4MG OD TAB SL PRN (08:28)
--- NOTE | 2016-07-15 12:29 | Progress Note ---
Medicine Progress Note Date & Time of Visit: Jul 15, 2016 at 12:26. Subjective Pt was seen and examined Lying in bed with no distress Pt did not get discharged last night because he could not get a ride Pt said that he feels fine diarrhea improved Denies any chest pain, palpitation, dizziness and sob. Objective Last 8 Hrs Date Time Temp Pulse Resp B/P (MAP) Pulse Ox O2 Delivery O2 Flow Rate FiO2 07/15/16 08:00 Room Air 07/15/16 07:21 36.8 64 18 104/52 (69) 97 Physical Exam: General- No acute distress Head- atraumatic Eyes- PERRL, EOMI ENT- oropharynx clear Neck- supple, no JVD Lungs- clear to auscultation Heart- regular rhythm; no murmur Abdomen- normal bowel sounds, +mild tender with palpation Extremities- no calf tenderness Neuro- alert, oriented x 3; PERRL, EOMI; no facial palsy Skin- warm & dry Laboratory Results: Last 24 Hours Test 07/14/16 16:57 07/14/16 20:14 07/15/16 07:32 07/15/16 11:18 Bedside Glucose 205 mg/dl 228 mg/dl 224 mg/dl 212 mg/dl Assessment & Plan Recurrent Cirrhosis 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 Presents with worsening ascites no fevers/chills, no leukocytosis Last paracentesis was done on 07/04 where they removed 8L of ascites fluid s/p therapeutic paracentesis done today, 7.4 L ascites fluid removed Albumin given pre and post paracentesis continue current medication regimen including Lasix, Aldactone, Rifaximin, Vitamin B-6, Propranolol, Protonix BID Schedule to see specialist in [place] - convolute tube winder for possible TIPS procedure Lactulose on hold due to diarrhea advised pt to consider to schedule for outpatient paracentesis next or Sunday to avoid being admitted for tap He has an appointment on 07/27 with convolute tube winder in [place] Stable Diabetes Type 2 Uncontrolled. h/o noncompliance with insulin Hba1c 8.8 (07/14/16) On lantus as per protocol on insulin coverage Continue monitor BS Anemia Secondary to anemia chronic disease. Hbg 11.6 Stable CKD III Creatine stable Avoid nephrotoxic agents Continue monitor BMP Thrombocytopenia Platelet 68 No active bleeding Stable Hypothyroidism continue Synthroid Stable Seizure Disorder continue Keppra Stable Chronic lower back pain Continue current pain management DVT px on SCDs due to low platelet CODE STATUS FULL CODE DISPOSITION Will discharge home today Appointment on 07/27 with convolute tube winder in [place] Follow up appointment with your primary care physician Dr. Munoz on 07/24 at 11: 05 am Current Inpatient Medications: Current Inpatient Medications Medications (Trade) Dose Ordered Sig/Ryan Route Start Time Stop Time Status Last Admin Dose Admin Al Hydrox/Mg Hydrox/Simethicone (Maalox Max Susp) 15 ml Q4H PRN PO 07/13/16 02:00 08/12/16 01:59 Magnesium Hydroxide (Milk Of Magnesia Susp) 30 ml Q6H PRN PO 07/13/16 02:00 08/12/16 01:59 Polyethylene (Miralax Powder Packet) 17 gm DAILY PRN PO 07/13/16 02:00 08/12/16 01:59 Ondansetron HCl (Zofran Inj) 4 mg Q6H PRN IV 07/13/16 02:00 08/12/16 01:59 07/13/16 14:09 4 MG Escitalopram Oxalate (Lexapro Tab) 10 mg DAILY PO 07/13/16 09:00 08/12/16 08:59 07/15/16 08:19 10 MG Hydromorphone HCl (Dilaudid Tab) 4 mg TID PRN PO 07/13/16 02:00 07/27/16 01:59 07/15/16 05:00 4 MG Levetiracetam (Keppra Tab) 500 mg AMHS PO 07/13/16 09:00 08/12/16 08:59 07/15/16 08:20 500 MG Levothyroxine Sodium (Synthroid Tab) 75 mcg DAILYBB PO 07/13/16 06:30 08/12/16 06:29 07/15/16 05:02 75 MCG Magnesium Oxide (Mag-Ox Tab) 400 mg BID PO 07/13/16 09:00 08/12/16 08:59 07/15/16 08:20 400 MG Pantoprazole Sodium (Protonix Tab) 40 mg BID PO 07/13/16 09:00 08/12/16 08:59 07/15/16 08:20 40 MG Propranolol HCl (Inderal Tab) 10 mg BID PO 07/13/16 09:00 08/12/16 08:59 07/15/16 08:19 10 MG Rifaximin (Xifaxan Tab) 550 mg AMHS PO 07/13/16 09:00 08/12/16 08:59 07/15/16 08:18 550 MG Spironolactone (Aldactone Tab) 100 mg DAILY PO 07/13/16 09:00 08/12/16 08:59 07/15/16 08:17 100 MG Pyridoxine HCl (Vitamin B-6 Tab) 25 mg HS PO 07/13/16 21:00 08/12/16 20:59 07/14/16 20:56 25 MG Glucose (Glucose 40% Gel) 15-30 GRAMS 15 GRAMS... UD PRN PO 07/13/16 02:00 08/12/16 01:59 Glucose (Glucose Chew Tab) 4-8 Tablets 4 Tabl... UD PRN PO 07/13/16 02:00 08/12/16 01:59 Dextrose (Dextrose 50% 50ML Syringe) 25-50ML OF 50% DW IV FOR... UD PRN IV 07/13/16 02:00 08/12/16 01:59 Glucagon (Glucagon Inj) 1 mg UD PRN SQ 07/13/16 02:00 08/12/16 01:59 Furosemide (Lasix Tab) 20 mg BID17 PO 07/13/16 09:00 08/12/16 08:59 07/15/16 08:20 20 MG Insulin Glargine (Lantus Solostar Pen) 14 unit HS SC 07/13/16 21:00 08/12/16 20:59 07/14/16 20:58 14 UNIT Lactulose (Chronulac Syrup) 20 gm TID PO 07/13/16 09:00 08/12/16 08:59 07/15/16 08:20 20 GM Ondansetron HCl (Zofran Odt) 4 mg Q6H PRN SL 07/13/16 02:15 08/12/16 02:14 07/15/16 08:28 4 MG Miscellaneous (Iv Fluids Completed) 1 ea PRN PRN N/A 07/13/16 04:15 07/13/17 04:14 Insulin Aspart (novoLOG ASPART) SLIDING SCALE If C... ACHS SC 07/13/16 16:30 08/12/16 16:29 07/15/16 12:21 3 UNITS
--- NOTE | 2016-07-19 00:50 | Discharge Summary ---
Discharge Summary Date of Service Jul 19, 2016. Discharge Summary Admission Date: Jul 13, 2016 at 01:48 Discharge Date: Jul 14, 2016 Discharge Disposition: Home Principal Diagnosis: ASCITES Secondary Diagnoses/Problems: Recurrent Cirrhosis Diabetes Type 2 Anemia Thrombocytopenia Seizure Dx CKD III HYPOTHYROIDISM CHRONIC BACK PAIN Procedures: PARACENTESIS UNDER ULTRASOUND GUIDANCE CLINICAL HISTORY: Ascites COMPARISON STUDY: 07/02/2016 FINDINGS: The risks, benefits, and alternatives to the procedure were discussed with the patient. Written informed consent was obtained. Following real-time ultrasound localization, the skin was prepped and draped. Following local anesthesia with Xylocaine, the sheath paracentesis needle was inserted and approximately 7.4 liters of straw-colored fluid was removed by vacuum suction. A left lower quadrant approach was utilized. The patient tolerated the procedure well and left the department in satisfactory condition. IMPRESSION: Successful ultrasound-guided paracentesis with removal of approximately 7.4 liters of ascitic fluid. Electronically signed by: Pawan Garner M.D. 07/13/2016 11:50 AM Dictated Date/Time: 07/13/2016 11:49 AM Medication Reconciliation Continued Medications: Diphenhydramine Hcl (Sleep) (Diphenhydramine Hcl) 50 Mg Tab 25 MG PO BID PRN for Itching for 30 Days, #30 TAB 1 Refill Escitalopram (Lexapro) 10 Mg Tab 10 MG PO DAILY, TAB Ferrous Sulfate (Kp Ferrous Sulfate) 325 Mg Tab 325 MG PO BID, TAB Furosemide (Lasix) 20 Mg Tab 20 MG PO BID, TAB Hydromorphone Hcl (Dilaudid) 4 Mg Tab 4 MG PO TID PRN for Pain, TAB Insulin Aspart (Novolog) 100 Units/Ml Inj 10 UNITS SQ TIDM PLUS SLIDING SCALE Insulin Glargine (Lantus) 100 Unit/Ml Inj 28 UNITS SC HS, VIAL Lactulose (Chronulac) 10 Gm/15 Ml Syrp 20 GM PO TID Levetiractam (Levetiracetam) 500 Mg Tab 500 MG PO AMHS Levothyroxine Sodium (Synthroid) 75 Mcg Tab 75 MCG PO DAILY, TAB Magnesium Oxide (Mag-Ox) 400 Mg Tab 400 MG PO BID Nystatin (Nystatin Suspension) 1 Ml Susp 5 ML PO QID for THRUSH Ondasetron Odt (Zofran Odt) 4 Mg Tab 4 MG SL Q6H PRN for Nausea or Vomiting, TAB Pantoprazole (Protonix) 40 Mg Tab 40 MG PO BID, TAB Propranolol (Inderal) 10 Mg Tab 10 MG PO BID, TAB Pyridoxine Hcl (Vitamin B-6) 25 Mg Tab 25 MG PO HS Rifaximin (Xifaxan) 550 Mg Tab 550 MG PO AMHS ONE AT BREAKFAST AND ONE AT SUPPER. Spironolactone (Aldactone) 100 Mg Tab 1 TAB PO DAILY for 30 Days, #30 TAB 11 Refills Triamcinolone Acet (Aristocort 0.1%) 90 Appln/30 Gm Cr 1 APPL EXT BID PRN for dermatitis Admission Information HPI (per Admitting provider): This is a 61 year old male with a PMH of PORTILLO cirrhosis, recurrent ascites requiring recurrent paracentesis, multiple complications regarding cirrhosis including encephalopathy, esophageal varices, thrombocytopenia; he has insulin dependent DM2, Hypothyroidism, HLD, chronic pain syndrome presents due to increased abdominal swelling and fluid build-up. He was here in late June, and had 8L removed on 07/02. Denies fevers/chills, nausea/vomiting. C/o diarrhea due to lactulose. 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, no motor/sensory deficits, alert , normal mood/affect, oriented x 3 Skin: normal color Lymphatic: no adenopathy Hospital Course Recurrent Cirrhosis ESLD secondary to PORTILLO Presents with worsening ascites no fevers/chills, no leukocytosis Last paracentesis was done on 07/04 where they removed 8L of ascites fluid s/p therapeutic paracentesis done today, 7.4 L ascites fluid removed Albumin given pre and post paracentesis continue current medication regimen including Lasix, Aldactone, Rifaximin, Vitamin B-6, Propranolol, Protonix BID Schedule to see specialist in [place] - document processing specialist for possible TIPS procedure Lactulose on hold due to diarrhea advised pt to consider to schedule for outpatient paracentesis next or Sunday to avoid being admitted for tap He has an appointment on 07/27 with document processing specialist in [place] Stable Diabetes Type 2 Uncontrolled. h/o noncompliance with insulin Hba1c 8.8 (07/14/16) On lantus as per protocol on insulin coverage Continue monitor BS Anemia Secondary to anemia chronic disease. Hbg 11.6 Stable CKD III Creatine stable Avoid nephrotoxic agents Continue monitor BMP Thrombocytopenia Platelet 68 No active bleeding Stable Hypothyroidism continue Synthroid Stable Seizure Disorder continue Keppra Stable Chronic lower back pain Continue current pain management DVT px on SCDs due to low platelet CODE STATUS FULL CODE DISPOSITION Will discharge home today Appointment on 07/27 with document processing specialist in [place] Follow up appointment with your primary care physician Dr. Munoz on 07/24 at 11: 05 am Total time spent on discharge = 35 MINUTES This includes examination of the patient, discharge planning, medication reconciliation, and communication with other providers. Discharge Instructions Discharge Instructions Date of Service Jul 14, 2016. Admission Reason for Admission: Ascites, Portillo Discharge Discharge Diagnosis / Problem: Recurrent Cirrhosis, Diabetes Type 2, Anemia, Thrombocytopenia, Seizure Dx Discharge Goals Goal(s): Decrease discomfort, Improve function, Improve disease control Activity Recommendations Activity Limitations: resume your previous activity (as tolerated) . Instructions / Follow-Up Instructions / Follow-Up Discharge home today Keep appointment on 07/27 with Plant Sciences Professor in [place] Follow up appointment with your primary care physician Dr. Munoz on 07/24 at 11: 05 am Fall precaution Current Hospital Diet Patient's current hospital diet: Diabetes Type 2 Diet Discharge Diet Recommended Diet: Low Sodium Diet (2gm Na), Diabetes Type 2 Diet Fluid Restriction: 1500 ml (6 cups) Pending Studies Studies pending at discharge: no Laboratory Results Hemoglobin A1c Test 07/14/16 06:30 Range/Units Estimated Average Glucose 206 mg/dl Hemoglobin A1c 8.8 H 4.5-5.6 % Medical Emergencies . Who to Call and When: Medical Emergencies: If at any time you feel your situation is an emergency, please call 911 immediately. . Non-Emergent Contact Non-Emergency issues call your: Primary Care Provider Call Non-Emergent contact if: you have a fever, your pain is worsening, you have any medication questions . . "Provider Documentation" section prepared by Shiva French. . VTE Core Measure Inpt VTE Proph given/why not?: SCD's, Contraindicated Additional Copies To Chacha Munoz D.O.
[2016-08-22] MEDS ORDERED: INSDGI SC (09:03)
[2016-08-22] MEDS ORDERED: MRLP17 PO (09:03)
[2016-08-29] MEDS ORDERED: INSDGI SC (12:27)
[2016-08-29] MEDS ORDERED: POLY335019 PO (12:27)
[2016-09-18] MEDS ORDERED: DIPH25CA5 PO (10:22)
[2016-10-28] MEDS ORDERED: XFX550 PO (14:18)
[2016-11-06] MEDS ORDERED: CLIN300C2 PO (14:29)
[2016-11-06] MEDS ORDERED: LCTX PO (14:29)
[2016-11-18] MEDS ORDERED: CLIN300C2 PO (10:23)
[2016-11-23] MEDS ORDERED: BISA10SU7 PR (07:52)
[2016-11-23] MEDS ORDERED: SODIENE PR (07:52)
[2016-11-23] MEDS ORDERED: DOCU100C31 PO (07:52)
[2016-11-23] MEDS ORDERED: MOML PO (07:52)
[2016-11-23] MEDS ORDERED: SENN-65 PO (07:52)
[2016-11-23] MEDS ORDERED: GLGKIT SC (07:54)
[2016-11-23] MEDS ORDERED: [UNRECOGNIZED DRUG - CODE] PO (07:54)
== END 2016-07-15 15:21 | disposition home or self-care (01) ==
LOC: EDBD 22:41 → C.EDB 22:43 → C.MED 07-13 01:48 → ENRESERV 07-13 01:58
PROVIDERS: ADMIT Family Medicine; ATTEND Internal Medicine
DX: R18.8 Other ascites (principal); K74.60 Unspecified cirrhosis of liver; K72.90 Hepatic failure, unspecified without coma; E11.65 Type 2 diabetes mellitus with hyperglycemia; D63.8 Anemia in other chronic diseases classified elsewhere; N18.3 Chronic kidney disease, stage 3 (moderate); D69.6 Thrombocytopenia, unspecified; E03.9 Hypothyroidism, unspecified; G40.909 Epilepsy, unspecified, not intractable, without status epilepticus; K75.81 Nonalcoholic steatohepatitis (NASH); E78.5 Hyperlipidemia, unspecified; G89.4 Chronic pain syndrome; Z98.1 Arthrodesis status; Z79.4 Long term (current) use of insulin; Z91.14 Patient's other noncompliance with medication regimen; Z82.49 Family history of ischemic heart disease and other diseases of the circulatory system; Z80.3 Family history of malignant neoplasm of breast

== ENCOUNTER 2016-08-04 11:14 | Emergency (ER) | payer OTHER ==
[~2016-08-04] VITALS: Ht 182.9 cm; Wt 73.9 kg
[~2016-08-04 11:14] MED LIST changes: -DIPH50TA10 PO; -NYSS/ PO; +PYRI25TA PO; -PYRI25TA9 PO
[2016-08-04 11:25] VITALS: Ht 182.9 cm; Wt 73.9 kg
[2016-08-04] MEDS: FENTANYL CITRATE INJ 50 MCG/1 ML 2 ML VIAL IV STA ×2 (13:05→13:46)
[2016-08-04] MEDS: ONDANSETRON INJ 2 MG/ML 2 ML VIAL IV STA ×2 (13:05→13:46)
--- NOTE | 2016-08-04 13:27 | DIAGNOSTIC IMAGING REPORT ---
CHEST ONE VIEW PORTABLE CLINICAL HISTORY: left cp eval for pnea dyspnea COMPARISON STUDY: 07/06/2016 FINDINGS: The bones soft tissues and hemidiaphragms are normal. The cardiomediastinal silhouette is normal. The lungs are clear. The pulmonary vasculature is normal. IMPRESSION: Negative chest. Electronically signed by: Marcin Tariq M.D. 08/04/2016 1:26 PM Dictated Date/Time: 08/04/2016 1:26 PM
[2016-08-04 13:45] LABS: MEAN CORPUSCULAR HGB CONC 34.8 g/dl (32-36)
[2016-08-04 13:47] VITALS: O2SAT 98
[2016-08-04 13:54] LABS: MEAN CELL VOLUME 82.6 fL (80-100); MEAN CORPUSCULAR HEMOGLOBIN 28.7 pg (25-34); RED BLOOD COUNT 4.84 M/uL (4.7-6.1)
[2016-08-04 14:02] LABS: POINT OF CARE TROPONIN I < 0.030 ng/ml (0-0.045)
[2016-08-04 14:11] LABS: BASO % 0.4 %; BASO ABS # 0.02 K/uL (0-0.2); COMPLETE YES; EOS % 2.4 %; IG% 0.2 %; LYMPH % 12.9 %; LYMPH ABS # 0.71 K/uL (1.2-3.4); MONO % 7.8 %; NEUT % 76.3 %; PLATELET COUNT 88 K/uL (130-400); PLT ESTIMATE DECREASED
[2016-08-04] MEDS ORDERED: DiphenhydrAMINE HCL 50 MG/ML VIAL ONE (14:40)
[2016-08-04] MEDS ORDERED: DiphenhydrAMINE HCL 50 MG/ML VIAL IV STA (14:40)
[2016-08-04 14:57] LABS: BUN/CREATININE RATIO 9.5 (10-20); CALCIUM 9.4 mg/dl (8.5-10.1); CREATININE 1.2 mg/dl (0.60-1.40); POTASSIUM 4.4 mmol/L (3.5-5.1)
[2016-08-04 15:03] LABS: INR 1.3 (0.9-1.1); PARTIAL THROMBOPLASTIN RATIO 1.1; PROTHROMBIN TIME (PATIENT) 14.3 SECONDS (9.0-12.0)
--- NOTE | 2016-08-04 16:39 | DIAGNOSTIC IMAGING REPORT ---
RIGHT UPPER EXTREMITY VENOUS DOPPLER ULTRASOUND CLINICAL HISTORY: Right arm swelling. COMPARISON STUDY: No previous studies for comparison. FINDINGS: The right internal jugular, subclavian, axillary, brachial, radial and ulnar veins were patent. The right basilic and cephalic veins were diminutive. However, no thrombus was identified. IMPRESSION: No deep venous thrombus within the right upper extremity. Electronically signed by: Luisito Obregon M.D. 08/04/2016 4:38 PM Dictated Date/Time: 08/04/2016 4:32 PM
[2016-08-04] MEDS ORDERED: HYDROmorphone INJ 1 MG/ML SYR IV STA (16:55)
[2016-08-04] MEDS ORDERED: HYDROmorphone INJ 0.5 MG/0.5 ML SYR IV STA (16:55)
--- NOTE | 2016-08-04 17:51 | EMERGENCY ROOM VISIT NOTE ---
History Report prepared by Alla: Cara Escobedo Under the Supervision of: Dr. Alejandro Darby M.D. First contact with patient: 12:58 Chief Complaint: ARM PAIN Stated Complaint: ARM EDEMA History of Present Illness The patient is a 61 year old male who presents to the Emergency Room with complaints of right arm pain beginning 8 hours prior to arrival. The patient states that he woke up at 5 this morning with his arm pain, which he describes as being tight. He also experienced chest pain at the same time as his arm pain this morning. Chest pain is on the left side and was transient. The patient also complains of some mild shortness of breath and bilateral leg pain. He reports that he was in [facility] yesterday and had an IV put in in the right arm. The patient has end stage liver disease and had a paracentesis done yesterday. He denies having a fever or abdominal pain. He does have an IVC filter. Source of History: patient Onset: 8 hours prior to arrival Position: arm (right) Quality: other (tight) Associated Symptoms: + chest pain, + SOB, No fevers Note: additional symptom: bilateral leg pain Review of Systems See HPI for pertinent positives & negatives. A total of 10 systems reviewed and were otherwise negative. 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 Surgical Problems: (1) H/O esophagogastroduodenoscopy (2) H/O knee surgery (3) S/P cervical spinal fusion (4) S/P IVC filter (5) S/P lumbar fusion (6) S/P T&A (status post tonsillectomy and adenoidectomy) Family History FH: CAD (coronary artery disease) FATHER FH: breast cancer MOTHER Social History Smoking Status: Never Smoker Alcohol Use: none Drug Use: none Marital Status: single Housing Status: lives with roommate Occupation Status: retired Current/Historical Medications Scheduled Escitalopram (Lexapro), 10 MG PO DAILY Ferrous Sulfate (Kp Ferrous Sulfate), 325 MG PO BID Furosemide (Lasix), 20 MG PO BID Insulin Aspart (Novolog), 10 UNITS SQ TIDM Insulin Glargine (Lantus), 28 UNITS SC HS Lactulose (Chronulac), 20 GM PO TID Levetiractam (Levetiracetam), 500 MG PO AMHS Levothyroxine Sodium (Synthroid), 75 MCG PO DAILY Magnesium Oxide (Mag-Ox), 400 MG PO BID Pantoprazole (Protonix), 40 MG PO BID Propranolol (Inderal), 10 MG PO BID Pyridoxine Hcl (Vitamin B-6), 25 MG PO HS Rifaximin (Xifaxan), 550 MG PO AMHS Spironolactone (Aldactone), 1 TAB PO DAILY Scheduled PRN Hydromorphone Hcl (Dilaudid), 4 MG PO TID PRN for Pain Ondasetron Odt (Zofran Odt), 4 MG SL Q6H PRN for Nausea or Vomiting Triamcinolone Acet (Aristocort 0.1%), 1 APPL EXT BID PRN for dermatitis Allergies Coded Allergies: Acetaminophen (Verified Allergy, Severe, ESLD (BETANCOURT). on Liver transplant list. Cannot have APAP., 08/04/16) Morphine (Verified Allergy, Severe, RED HIVE WENT UP ARM FROM IV SITE, ) NSAIDs (Verified Allergy, Severe, DUE TO LIVER DISEAS, 08/04/16) Penicillins (Verified Allergy, Severe, JOINT SWELLING AND FEVER, 08/04/16) Levofloxacin (Verified Allergy, Mild, RASH, 08/04/16) pt developed erythema at site of IV injection with itching Vancomycin (Verified Allergy, Mild, HIVES, 08/04/16) HIVES Fentanyl (Unverified Allergy, Unknown, rash, 08/04/16) Tramadol (Verified Allergy, Unknown, NOT TO TAKE WITH KEPPRA DUE TO SEIZURE RISK, 08/04/16) Physical Exam Vital Signs Date Time Temp Pulse Resp B/P (MAP) Pulse Ox O2 Delivery O2 Flow Rate FiO2 08/04/16 17:36 68 15 97 08/04/16 17:06 72 14 96 08/04/16 17:01 72 18 98/54 96 08/04/16 16:53 93/54 08/04/16 15:44 71 19 95 08/04/16 15:14 67 16 94 08/04/16 14:44 71 14 98 08/04/16 14:43 127/70 08/04/16 14:14 62 14 08/04/16 14:10 74 16 127/70 100 Room Air 08/04/16 13:47 98 Room Air 08/04/16 13:44 65 20 08/04/16 13:14 65 17 08/04/16 12:44 63 18 08/04/16 12:22 65 15 110/78 94 Room Air 08/04/16 12:22 110/78 08/04/16 12:15 117/75 08/04/16 12:14 64 17 94 08/04/16 12:12 63 08/04/16 11:44 65 17 95 08/04/16 11:25 36.6 70 17 117/75 98 Room Air 08/04/16 11:21 117/75 Physical Exam Constitutional: Vital signs reviewed. Eyes: Pupils are equal round reactive to light. Conjunctiva are noninjected. ENT: Pharynx is clear without erythema or exudate. Mucous membranes are moist. Neck supple without meningeal signs. Respiratory: Clear to auscultation bilaterally. Breath sounds are equal bilaterally. Cardiovascular: Regular rate and rhythm. No rubs or gallops. GI: Soft, nondistended and nontender. Bowel sounds are present. Musculoskeletal: Swelling from the right elbow down to the fingers. No erythema or increased warmth. Diffuse tenderness. No evidence of Compartment Syndrome. Normal distal pulses. Integumentary: No cyanosis. Neurological: The patient is awake and alert. No focal deficits. Psychiatric: Normal affect. Medical Decision & Procedures ER Provider Diagnostic Interpretation: X-ray results as stated below per interpretation by me and the radiologist: CHEST ONE VIEW PORTABLE CLINICAL HISTORY: left cp eval for pnea dyspnea COMPARISON STUDY: 07/06/2016 FINDINGS: The bones soft tissues and hemidiaphragms are normal. The cardiomediastinal silhouette is normal. The lungs are clear. The pulmonary vasculature is normal. IMPRESSION: Negative chest. Electronically signed by: Marcin Tariq M.D. 08/04/2016 1:26 PM Dictated Date/Time: 08/04/2016 1:26 PM Radiology results as stated below per my review and the radiologist's interpretation: RIGHT UPPER EXTREMITY VENOUS DOPPLER ULTRASOUND CLINICAL HISTORY: Right arm swelling. COMPARISON STUDY: No previous studies for comparison. FINDINGS: The right internal jugular, subclavian, axillary, brachial, radial and ulnar veins were patent. The right basilic and cephalic veins were diminutive. However, no thrombus was identified. IMPRESSION: No deep venous thrombus within the right upper extremity. Electronically signed by: Luisito Obregon M.D. 08/04/2016 4:38 PM Dictated Date/Time: 08/04/2016 4:32 PM Laboratory Results 08/04/16 13:35 Red Blood Count 4.84, Mean Corpuscular Volume 82.6, Mean Corpuscular Hemoglobin 28.7, Mean Corpuscular Hemoglobin Concent 34.8, Neutrophils (%) (Auto) 76.3, Lymphocytes (%) (Auto) 12.9, Monocytes (%) (Auto) 7.8, Eosinophils (%) (Auto) 2.4, Basophils (%) (Auto) 0.4, Neutrophils # (Auto) 4.20, Lymphocytes # (Auto) 0.71, Monocytes # (Auto) 0.43, Eosinophils # (Auto) 0.13, Basophils # (Auto) 0.02 08/04/16 13:35 Test 08/04/16 13:35 08/04/16 13:42 08/04/16 14:45 White Blood Count 5.50 K/uL (4.8-10.8) Red Blood Count 4.84 M/uL (4.7-6.1) Hemoglobin 13.9 g/dL (14.0-18.0) Hematocrit 40.0 % (42-52) Mean Corpuscular Volume 82.6 fL (80-100) Mean Corpuscular Hemoglobin 28.7 pg (25-34) Mean Corpuscular Hemoglobin Concent 34.8 g/dl (32-36) Platelet Count 88 K/uL (130-400) Neutrophils (%) (Auto) 76.3 % Lymphocytes (%) (Auto) 12.9 % Monocytes (%) (Auto) 7.8 % Eosinophils (%) (Auto) 2.4 % Basophils (%) (Auto) 0.4 % Neutrophils # (Auto) 4.20 K/uL (1.4-6.5) Lymphocytes # (Auto) 0.71 K/uL (1.2-3.4) Monocytes # (Auto) 0.43 K/uL (0.11-0.59) Eosinophils # (Auto) 0.13 K/uL (0-0.5) Basophils # (Auto) 0.02 K/uL (0-0.2) RDW Standard Deviation 51.3 fL (36.4-46.3) RDW Coefficient of Variation 16.7 % (11.5-14.5) Immature Granulocyte % (Auto) 0.2 % Immature Granulocyte # (Auto) 0.01 K/uL (0.00-0.02) Platelet Estimate DECREASED Anion Gap 9.0 mmol/L (3-11) Est Creatinine Clear Calc Drug Dose 66.7 ml/min Estimated GFR () 74.7 Estimated GFR (Non- 64.4 BUN/Creatinine Ratio 9.5 (10-20) Calcium Level 9.4 mg/dl (8.5-10.1) Chemistry Specimen Hemolysis Bedside D-Dimer > 450 ng/mlFEU (0-450) Bedside Troponin I < 0.030 ng/ml (0-0.045) Prothrombin Time 14.3 SECONDS (9.0-12.0) Prothromb Time International Ratio 1.3 (0.9-1.1) Activated Partial Thromboplast Time 29.3 SECONDS (21.0-31.0) Partial Thromboplastin Ratio 1.1 Laboratory results as reviewed by me. Medications Administered Medications (Trade) Dose Ordered Sig/[facility] Route Start Time Stop Time Status Last Admin Dose Admin Fentanyl Citrate (Fentanyl Inj) 50 mcg NOW STAT IV 08/04/16 13:05 08/04/16 13:08 DC 08/04/16 13:05 50 MCG Ondansetron HCl (Zofran Inj) 4 mg NOW STAT IV 08/04/16 13:05 08/04/16 13:08 DC 08/04/16 13:05 4 MG Diphenhydramine HCl (Benadryl Inj) 50 mg STK-MED ONCE .ROUTE 08/04/16 14:40 08/04/16 14:41 DC 08/04/16 14:46 50 MG Hydromorphone HCl (Dilaudid Inj) 0.5 mg NOW STAT IV 08/04/16 16:55 08/04/16 17:12 DC 08/04/16 17:17 0.5 MG ECG Indication: chest pain Rate (beats per minute): 60 Rhythm: normal sinus Findings: no acute ischemic change, no ectopy, other (no signifcant change from July 06) ED Course 1300: The patient was evaluated in room B3. A complete history and physical exam was performed. 1305: Ordered Zofran Inj 4 mg IV, Fentanyl Inj 50 mcg IV. 1440: Ordered Benadryl Inj 50 mg IV, Benadryl Inj 50 mg .ROUTE. 1441: The patient was given Fentanyl. He developed some hives to his left am where he was injected. He has no difficulty breathing or angioedema. 1650: I spoke with the patient and he still says that his arm hurts. He is getting occasional chest pain. 1654: I spoke with Emily Peterson and she says that he frequently complains of chest pain. The patient cannot be anticoagulated for a PE because of his thrombocytopenia. She said that he may be able to be discharged home. 1655: I discussed the plan for repeat Troponin and discharge with the patient. He is agreeable and requesting pain medicine. Medical Decision This is a 61-year-old male who presents with chest pain and arm pain. Differential diagnoses considered include DVT, superficial thrombophlebitis, infection, pleurisy, pulmonary embolism. I did perform a limited focused review of portions of the patient's old chart on the electronic medical record. The patient was admitted July 13 for Ascites and underwent paracentesis. Blood Pressure Screening: Patient was found to have normal blood pressure on screening and does not require follow-up. Medication Reconciliation: I attest that I have personally reviewed the patient' s current medication list. I did evaluate the patient as noted above. The patient is presenting with right arm pain. He had IVs placed that yesterday and then the swollen up. It does not appear to be infected. He also has been having intermittent left- sided chest pain. IV access was established. The patient was placed on a continuous digital solutions architect. I did order and personally review the patient's 12- lead EKG and chest x-ray as described above. I did order and review the patient 's blood work as noted in the electronic medical record. Troponin is negative. D-dimer is elevated but this may be simply elevated from his recent paracentesis. He does have chronic cytopenia which is chronic for him. I did order Doppler ultrasound of the right upper extremity. I did review the images myself as well as the radiology report as described above. There is no evidence of DVT. I did treat patient with IV fentanyl and Dilaudid. He was also given Zofran IV. I did discuss the test results with the patient. My plan was to have him hospitalized for further evaluation. I did speak to the [facility] hospitalist who states she knows the patient very well. She stated that he often complains of chest pain that is noncardiac in nature. He also cannot be anticoagulated because of his thrombocytopenia and that is why he has a Hitchcock filter. She felt that the patient could be discharged home. I did discuss this with the patient. I stated that we would get another troponin to rule out a cardiac event. Second troponin was drawn and negative. He was therefore discharged home and advised follow closely with his doctor. He was given return instructions as outlined below. Consults Time Called: 1640 Consulting Physician: [facility] Return[facility] Call: [phone] I spoke with Emily Peterson and she says that he frequently complains of chest pain. The patient cannot be anticoagulated for a PE because of his thrombocytopenia. She said that he may able to be discharged home. Impression Primary Impression: Arm pain, right Additional Impressions: Left sided chest pain Thrombocytopenia Scribe Attestation The scribe's documentation has been prepared under my direct and personally reviewed by me in its entirety. I confirm that the note above accurately reflects all work, treatment, procedures, and medical decision making performed by me. Departure Information Referrals Chacha Munoz D.O. (PCP) Patient Instructions My [facility] Additional Instructions You have been examined and treated today on an emergency basis only. This is not a substitute for, or an effort to provide, complete comprehensive medical care. It is impossible to recognize and treat all injuries or illnesses in a single emergency department visit. It is therefore important that you follow up closely with your physician. Call as soon as possible for an appointment. Return for worsening symptoms or if you develop fever, vomiting, trouble breathing or any other concerning symptoms. Problem Qualifiers
[2016-08-04 18:02] VITALS: BP 98/54; PULSE 68; TEMP 36.6; O2SAT 97
[2016-08-22] MEDS ORDERED: INSDGI SC (09:03)
[2016-08-22] MEDS ORDERED: MRLP17 PO (09:03)
[2016-08-29] MEDS ORDERED: INSDGI SC (12:27)
[2016-08-29] MEDS ORDERED: POLY335019 PO (12:27)
[2016-10-28] MEDS ORDERED: XFX550 PO (14:18)
[2016-11-06] MEDS ORDERED: CLIN300C2 PO (14:29)
[2016-11-06] MEDS ORDERED: LCTX PO (14:29)
== END 2016-08-04 18:03 | disposition home or self-care (01) ==
LOC: EDBD 11:14 → C.EDB 11:15
DX: M79.601 Pain in right arm (principal); R07.9 Chest pain, unspecified; D69.6 Thrombocytopenia, unspecified; F41.9 Anxiety disorder, unspecified; F32.9 Major depressive disorder, single episode, unspecified; E11.9 Type 2 diabetes mellitus without complications; K72.90 Hepatic failure, unspecified without coma; I85.00 Esophageal varices without bleeding; M96.1 Postlaminectomy syndrome, not elsewhere classified; E78.5 Hyperlipidemia, unspecified; E03.9 Hypothyroidism, unspecified; K75.81 Nonalcoholic steatohepatitis (NASH); Z86.711 Personal history of pulmonary embolism; G40.909 Epilepsy, unspecified, not intractable, without status epilepticus; Z82.49 Family history of ischemic heart disease and other diseases of the circulatory system; Z80.9 Family history of malignant neoplasm, unspecified; Z79.4 Long term (current) use of insulin; Z79.899 Other long term (current) drug therapy

== ENCOUNTER 2016-08-17 09:16 | Inpatient (IN) | payer OTHER ==
[2016-08-17] VITALS (8 sets, daily range): BP systolic 102–133; BP diastolic 64–84; PULSE 79–94; TEMP 36.6–36.8; O2SAT 95–100; BMI 18.2
[~2016-08-17] VITALS: Ht 188 cm; Wt 71.6 kg
[2016-08-17] MEDS ORDERED: FURO40TA3 PO (09:44)
[2016-08-17] MEDS ORDERED: METR-162 PO (09:44)
[2016-08-17] MEDS ORDERED: MELA1TAB5 PO (09:44)
[2016-08-17] MEDS ORDERED: HYDROmorphone INJ 1 MG/ML SYR IV STA (09:57)
[2016-08-17] MEDS ORDERED: SODIUM CHLORIDE 0.9% 500ML 500 ML IV STA (09:57)
[2016-08-17] MEDS ORDERED: ONDANSETRON INJ 2 MG/ML 2 ML VIAL IV STA (09:57)
--- NOTE | 2016-08-17 10:01 | EMERGENCY ROOM VISIT NOTE ---
History Report prepared by Alla: Francisco Malone Under the Supervision of: Dr. Paul Winkler M.D. First contact with patient: 09:34 Chief Complaint: ABDOMINAL PAIN Stated Complaint: NAUSEA, VOMIT Nursing Triage Summary: N/V x1 week. Weakness. Started Flagyl 08/09/16, symptoms also started at this time. Constipation. Dizzy. Abd discomfort. History of liver disease. Reports falling this AM, knees reddened. Believes he twisted his back when he fell, c/ o back pain. History of Present Illness The patient is a 61 year old male who presents to the Emergency Room with complaints of constant abdominal pain for the past week. The patient states that he additionally has been nauseous, and he has been vomiting. The patient states that these symptoms started once he was put on Flagyl because he could not afford his Zofran. He states that he additionally has been having difficulty with his bowel movements. The patient states that he fell the other day, and he hurt his shoulder and his knees. He additionally states that he has not been able to fill his prescriptions on his Dilaudid. Source of History: patient Onset: a week ago Position: abdomen Timing: constant Associated Symptoms: + nausea, + vomiting Review of Systems See HPI for pertinent positives & negatives. A total of 10 systems reviewed and were otherwise negative. 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 Surgical Problems: (1) H/O esophagogastroduodenoscopy (2) H/O knee surgery (3) S/P cervical spinal fusion (4) S/P IVC filter (5) S/P lumbar fusion (6) S/P T&A (status post tonsillectomy and adenoidectomy) Family History FH: CAD (coronary artery disease) FATHER FH: breast cancer MOTHER Social History Smoking Status: Never Smoker Alcohol Use: none Drug Use: none Marital Status: single Housing Status: lives with roommate Occupation Status: retired Current/Historical Medications Scheduled Escitalopram (Lexapro), 10 MG PO DAILY Ferrous Sulfate ( Ferrous Sulfate), 325 MG PO BID Furosemide (Lasix), 40 MG PO BID17 Insulin Aspart (Novolog), 10 UNITS SQ TIDM Insulin Glargine (Lantus), 38 UNITS SC HS Lactulose (Chronulac), 20 GM PO TID Levetiractam (Levetiracetam), 500 MG PO AMHS Levothyroxine Sodium (Synthroid), 75 MCG PO DAILY Magnesium Oxide (Mag-Ox), 400 MG PO BID Melatonin ( Melatonin), 1 TAB PO HS Metronidazole (Flagyl), 500 MG PO DAILY Pantoprazole (Protonix), 40 MG PO BID Propranolol (Inderal), 10 MG PO BID Pyridoxine Hcl (Vitamin B-6), 25 MG PO HS Spironolactone (Aldactone), 1 TAB PO BID Scheduled PRN Hydromorphone Hcl (Dilaudid), 4 MG PO TID PRN for Pain Ondasetron Odt (Zofran Odt), 4 MG SL Q6H PRN for Nausea or Vomiting Triamcinolone Acet (Aristocort 0.1%), 1 APPL EXT BID PRN for dermatitis Allergies Coded Allergies: Acetaminophen (Verified Allergy, Severe, ESLD (BETANCOURT). on Liver transplant list. Cannot have APAP., 08/17/16) Morphine (Verified Allergy, Severe, RED HIVE WENT UP ARM FROM IV SITE, ) NSAIDs (Verified Allergy, Severe, DUE TO LIVER DISEAS, 08/17/16) Penicillins (Verified Allergy, Severe, JOINT SWELLING AND FEVER, 08/17/16) Fentanyl (Verified Allergy, Intermediate, rash, 08/17/16) Levofloxacin (Verified Allergy, Intermediate, RASH, 08/17/16) pt developed erythema at site of IV injection with itching Vancomycin (Verified Allergy, Mild, HIVES, 08/17/16) HIVES Tramadol (Verified Allergy, Unknown, NOT TO TAKE WITH KEPPRA DUE TO SEIZURE RISK, 08/17/16) Physical Exam Vital Signs Date Time Temp Pulse Resp B/P (MAP) Pulse Ox O2 Delivery O2 Flow Rate FiO2 08/17/16 14:06 78 16 99 7/13/17 14:01 75 13 117/70 99 08/17/16 13:56 75 12 99 08/17/16 13:51 76 12 98 08/17/16 13:50 115/76 08/17/16 13:46 87 19 98 08/17/16 13:41 75 20 98 08/17/16 13:36 73 20 115/76 98 08/17/16 13:21 76 11 99 08/17/16 13:06 80 15 99 08/17/16 13:05 100 Room Air 08/17/16 13:01 115/94 08/17/16 12:51 81 23 100 08/17/16 12:36 79 18 99 08/17/16 12:35 131/87 08/17/16 12:21 78 99 08/17/16 11:36 83 9 99 08/17/16 11:31 123/84 08/17/16 11:21 83 9 100 08/17/16 11:16 84 11 100 08/17/16 11:01 92 18 121/72 100 08/17/16 10:56 106/62 08/17/16 10:46 89 19 08/17/16 10:31 87 15 08/17/16 10:16 89 18 08/17/16 10:01 88 15 99 08/17/16 09:46 88 14 99 08/17/16 09:36 84 08/17/16 09:24 130/83 08/17/16 09:23 36.8 85 17 130/83 98 Room Air Physical Exam GENERAL: Patient is a healthy-appearing well-nourished male HEAD: Normocephalic atraumatic EYES: Ocular movements intact pupils equal and react to light OROPHARYNX mucous membranes are moist no exudates present no erythema or edema present NECK: Supple no nuchal rigidity CHEST: Good equal expansion LUNGS: Clear and equal to auscultation CARDIAC: Normal S1 and S2 ABDOMEN: Soft nontender nondistended no guarding BACK: No CVA tenderness EXTREMITIES: Superficial abrasions to bilateral knees. No pain upon palpation normal muscle strength in all groups no clubbing cyanosis or edema NEURO: Patient is following commands and answering questions appropriately. Alert and oriented x3 Cranial Nerves 2-12 grossly intact Medical Decision & Procedures ER Provider Diagnostic Interpretation: Radiology results as stated below per my review and radiologist interpretation: ABD/PELVIS IV CONTRAST ONLY CT DOSE: 617.68 mGycm HISTORY: Pain Pt c/o diffuse abd pain TECHNIQUE: Multiaxial CT images of the abdomen and pelvis were performed following the use of intravenous contrast. COMPARISON STUDY: 07/03/2016 FINDINGS: Lung bases are clear. Findings consistent with stable hepatic cirrhosis. Splenomegaly stable from the prior study. Periesophageal, upper abdominal, and perigastric varices are considered stable. Pancreatic atrophy unchanged. Moderate abdominal and pelvic ascites. Bowel pattern is nonobstructive. Inferior vena caval filter is present. Stable postoperative changes low lumbar spine. Bowel pattern again is nonobstructive. Bladder is midline. IMPRESSION: 1. Hepatic cirrhosis and splenomegaly stable from the prior study. 2. Para esophageal and upper abdominal varices also stable. 3. Moderate abdominal and pelvic ascites similar to the prior exam. 4. Gallstones. The above report was generated using voice recognition software. It may contain grammatical, syntax or spelling errors. Electronically signed by: Marcin Tariq M.D. 08/17/2016 12:17 PM Dictated Date/Time: 08/17/2016 12:08 PM Laboratory Results 08/17/16 10:30 Red Blood Count 5.01, Mean Corpuscular Volume 79.8, Mean Corpuscular Hemoglobin 27.9, Mean Corpuscular Hemoglobin Concent 35.0, Neutrophils (%) (Auto) 79.2, Lymphocytes (%) (Auto) 10.5, Monocytes (%) (Auto) 9.0, Eosinophils (%) (Auto) 0.7, Basophils (%) (Auto) 0.3, Neutrophils # (Auto) 5.30, Lymphocytes # (Auto) 0.70, Monocytes # (Auto) 0.60, Eosinophils # (Auto) 0.05, Basophils # (Auto) 0.02 08/17/16 10:30 Test 08/17/16 09:25 08/17/16 10:30 08/17/16 11:27 Urine Color YELLOW Urine Appearance CLEAR (CLEAR) Urine pH 7.0 (4.5-7.5) Urine Specific [place] 1.028 (1.000-1.030) Urine Protein NEG (NEG) Urine Glucose (UA) 3+ (NEG) Urine Ketones TRACE (NEG) Urine Occult Blood NEG (NEG) Urine Nitrite NEG (NEG) Urine Bilirubin NEG (NEG) Urine Urobilinogen NEG (NEG) Urine Leukocyte Esterase NEG (NEG) White Blood Count 6.69 K/uL (4.8-10.8) Red Blood Count 5.01 M/uL (4.7-6.1) Hemoglobin 14.0 g/dL (14.0-18.0) Hematocrit 40.0 % (42-52) Mean Corpuscular Volume 79.8 fL (80-100) Mean Corpuscular Hemoglobin 27.9 pg (25-34) Mean Corpuscular Hemoglobin Concent 35.0 g/dl (32-36) Platelet Count 75 K/uL (130-400) Neutrophils (%) (Auto) 79.2 % Lymphocytes (%) (Auto) 10.5 % Monocytes (%) (Auto) 9.0 % Eosinophils (%) (Auto) 0.7 % Basophils (%) (Auto) 0.3 % Neutrophils # (Auto) 5.30 K/uL (1.4-6.5) Lymphocytes # (Auto) 0.70 K/uL (1.2-3.4) Monocytes # (Auto) 0.60 K/uL (0.11-0.59) Eosinophils # (Auto) 0.05 K/uL (0-0.5) Basophils # (Auto) 0.02 K/uL (0-0.2) RDW Standard Deviation 46.0 fL (36.4-46.3) RDW Coefficient of Variation 15.8 % (11.5-14.5) Immature Granulocyte % (Auto) 0.3 % Immature Granulocyte # (Auto) 0.02 K/uL (0.00-0.02) Large Platelets 1+ Microcytosis PRESENT Est Creatinine Clear Calc Drug Dose 38.6 ml/min Estimated GFR () 45.7 Estimated GFR (Non- 39.5 BUN/Creatinine Ratio 6.5 (10-20) Osmolality 299 mOsm/kg (280-300) Calcium Level 9.4 mg/dl (8.5-10.1) Phosphorus Level 1.3 mg/dl (2.5-4.9) Magnesium Level 1.9 mg/dl (1.8-2.4) Total Bilirubin 3.5 mg/dl (0.2-1) Direct Bilirubin 1.1 mg/dl (0-0.2) Aspartate Amino Transf (AST/SGOT) 33 U/L (15-37) Alanine Aminotransferase (ALT/SGPT) 19 U/L (12-78) Alkaline Phosphatase 148 U/L (45-117) Total Protein 7.1 gm/dl (6.4-8.2) Albumin 3.2 gm/dl (3.4-5.0) Lipase 139 U/L (73-393) Beta-Hydroxybutyric Acid 6.67 mg/dL (0.2-2.81) Bedside Hemoglobin 16.0 g/dl (14.0-18.0) Bedside Hematocrit 47 % (42-52) Bedside Sodium 127 mEq/L (135-144) Bedside Potassium 3.6 mEq/L (3.3-5.0) Bedside Chloride 83 mEq/L (101-112) Bedside Total CO2 24 mEq/l (24-31) Anion Gap 24.0 mmol/L (16-25) Bedside Blood Urea Nitrogen 11 mg/dl (7-18) Bedside Creatinine 1.2 mg/dl (0.6-1.3) Bedside Glucose (other) 630 mg/dl (70-99) Bedside Ionized Calcium (Wanda) 0.97 mmol/l (1.12-1.32) Labs reviewed by ED physician. Medications Administered Medications (Trade) Dose Ordered Sig/Ryan Route Start Time Stop Time Status Last Admin Dose Admin Sodium Chloride 500 ml @ 999 mls/hr Q31M STAT IV 08/17/16 09:57 08/17/16 10:27 DC 08/17/16 10:52 999 MLS/HR Ondansetron HCl (Zofran Inj) 4 mg NOW STAT IV 08/17/16 09:57 08/17/16 10:00 DC 08/17/16 10:51 4 MG Hydromorphone HCl (Dilaudid Inj) 1 mg NOW STAT IV 08/17/16 09:57 08/17/16 10:00 DC 08/17/16 10:52 1 MG Potassium Chloride (Klor-Con M10) 40 meq NOW STAT PO 08/17/16 11:35 08/17/16 11:36 DC 08/17/16 12:25 40 MEQ Insulin Human Regular (novoLIN-R U-100 PER UNIT) 10 units NOW STAT SC 08/17/16 11:35 08/17/16 11:36 DC 08/17/16 12:28 10 UNITS Hydromorphone HCl (Dilaudid Tab) 4 mg TID PRN PO 08/17/16 13:00 08/31/16 12:59 08/17/16 13:47 4 MG Ondansetron HCl (Zofran Odt) 4 mg Q6H PRN SL 08/17/16 13:00 09/16/16 12:59 08/17/16 13:46 4 MG ED Course 0955: Past medical records reviewed. The patient was evaluated in room B7. A complete history and physical examination was performed. 0957: Dilaudid Inj 1mg IV, Zofran Inj 4mg IV, Sodium Chloride 500 ml @ 999 mls/ hr IV 1134: Sodium Chloride 1000 ml @ 999 mls/hr IV 1135: Insulin Human Regular 10 units SC, Potassium Chloride 40meq PO 1229: I discussed the patient's case with Dr. Veronica. He is going to evaluate the patient for further treatment Medical Decision Differential diagnosis: Etiologies such as appendicitis, diverticulitis, PUD, biliary pathology, UTI, pancreatitis, obstruction, mesenteric ischemia, aortic pathology, infections, inflammatory bowel disease, renal colic, as well as others were entertained. Blood Pressure Screening: Patient was found to have an elevated blood pressure and was referred to their primary care doctor for recheck and further treatment Medication Reconciliation: I attest that I have personally reviewed the patient' s current medication list This is a 61-year-old male who presents emergency department complaining of abdominal pain. This patient is well-known to me in his abdomen does not appear to be distended like he has ascites. However his blood sugar is exceptionally high 600s. He appears to have a normal osmolality. An IV was established, patient given normal saline bolus, insulin. I did discuss the case with the hospitalist service who agreed to admit the patient. Patient was in agreement with the treatment plan. Consults Time Called: 1225 Consulting Physician: Dr. Veronica, Hospitalist Returned Call: 1229 I discussed the patient's case with Dr. Veronica. He is going to evaluate the patient for further treatment Impression Primary Impression: Hyperglycemia Scribe Attestation The scribe's documentation has been prepared under my direction and personally reviewed by me in its entirety. I confirm that the note above accurately reflects all work, treatment, procedures, and medical decision making performed by me. Departure Information Dispostion Being Evaluated By Hospitalist Referrals Chacha Munoz D.O. (PCP)
[2016-08-17] MEDS ORDERED: OPTIRAY 320 IV PRN (10:15)
[2016-08-17 10:18] LABS: URINE APPEARANCE CLEAR (CLEAR); URINE BILIRUBIN NEG (NEG); URINE COLOR YELLOW; URINE NITRITE NEG (NEG); URINE SPECIFIC GRAVITY 1.028 (1.000-1.030); UROBILINOGEN NEG (NEG)
[2016-08-17 10:27] LABS: MANUAL MICROSCOPIC REQUIRED? NO; REVIEW REQ? NO
[2016-08-17 11:19] LABS: MEAN CELL VOLUME 79.8 fL (80-100); MEAN CORPUSCULAR HEMOGLOBIN 27.9 pg (25-34); RED BLOOD COUNT 5.01 M/uL (4.7-6.1); WHITE BLOOD COUNT 6.69 K/uL (4.8-10.8)
[2016-08-17 11:33] LABS: BUN/CREATININE RATIO 6.5 (10-20); CALCIUM 9.4 mg/dl (8.5-10.1); CREATININE 1.8 mg/dl (0.60-1.40); POTASSIUM 3.6 mmol/L (3.5-5.1)
[2016-08-17] MEDS ORDERED: SODIUM CHLORIDE 0.9% 1000ML 1,000 ML IV STA (11:34)
[2016-08-17] MEDS ORDERED: NovoLIN-R INSULIN PER UNIT CHARGE SC STA (11:35)
[2016-08-17] MEDS ORDERED: POTASSIUM CHLORIDE 10 MEQ TABCR PO STA (11:35)
[2016-08-17 11:40] LABS: ISTAT CREATININE 1.2 mg/dl (0.6-1.3); ISTAT IONIZED CALCIUM 0.97 mmol/l (1.12-1.32)
[2016-08-17 11:40] LABS: PLATELET COUNT 75 K/uL (130-400)
[2016-08-17 11:48] LABS: BETA-HYDROXYBUTYRATE 6.67 mg/dL (0.2-2.81)
[2016-08-17 11:56] LABS: BASO % 0.3 %; BASO ABS # 0.02 K/uL (0-0.2); COMPLETE YES; EOS % 0.7 %; IG% 0.3 %; LARGE PLATELETS 1+; LYMPH % 10.5 %; MICROCYTOSIS PRESENT; NEUT % 79.2 %
--- NOTE | 2016-08-17 12:19 | DIAGNOSTIC IMAGING REPORT ---
ABD/PELVIS IV CONTRAST ONLY CT DOSE: 617.68 mGycm HISTORY: Pain Pt c/o diffuse abd pain TECHNIQUE: Multiaxial CT images of the abdomen and pelvis were performed following the use of intravenous contrast. COMPARISON STUDY: 07/03/2016 FINDINGS: Lung bases are clear. Findings consistent with stable hepatic cirrhosis. Splenomegaly stable from the prior study. Periesophageal, upper abdominal, and perigastric varices are considered stable. Pancreatic atrophy unchanged. Moderate abdominal and pelvic ascites. Bowel pattern is nonobstructive. Inferior vena caval filter is present. Stable postoperative changes low lumbar spine. Bowel pattern again is nonobstructive. Bladder is midline. IMPRESSION: 1. Hepatic cirrhosis and splenomegaly stable from the prior study. 2. Para esophageal and upper abdominal varices also stable. 3. Moderate abdominal and pelvic ascites similar to the prior exam. 4. Gallstones. The above report was generated using voice recognition software. It may contain grammatical, syntax or spelling errors. Electronically signed by: Marcin Tariq M.D. 08/17/2016 12:17 PM Dictated Date/Time: 08/17/2016 12:08 PM
[2016-08-17] MEDS ORDERED: DEXTROSE 50% 50 ML SYR IV PRN (13:00)
[2016-08-17] MEDS ORDERED: POLYETHYLENE (MIRALAX) 17 GM PACK PO PRN (13:00)
[2016-08-17] MEDS ORDERED: TRIAMCINOLONE ACET 0.1% CR 15 GM TUBE EXT PRN (13:00)
[2016-08-17] MEDS ORDERED: ALUMINUM/MAGNESIUM/SIMETH (MAALOX MAX) 30 ML UDC PO PRN (13:00)
[2016-08-17] MEDS ORDERED: GLUCOSE 40% GEL 15 GM TUBE PO PRN (13:00)
[2016-08-17] MEDS ORDERED: GLUCOSE 10 TABS/TUBE PO PRN (13:00)
[2016-08-17] MEDS ORDERED: GLUCAGON FOR INJ 1 MG VIAL SQ PRN (13:00)
[2016-08-17] MEDS ORDERED: MAGNESIUM HYDROXIDE SUSP 30 ML UDC PO PRN (13:00)
[2016-08-17] MEDS ORDERED: PHARMACY GLYCEMIC MGMT CONSULT PRN ×2 (13:37→14:15)
[2016-08-17] MEDS: ONDANSETRON 4MG OD TAB SL PRN (13:46)
[2016-08-17] MEDS: HYDROmorphone HCL 2 MG TAB PO PRN ×2 (13:47→20:39)
[2016-08-17] MEDS ORDERED: SODIUM CHLORIDE 0.9% 1000ML 1,000 ML IV SCH (14:09)
[2016-08-17] MEDS ORDERED: DKA GOAL RANGE 150-250 mg/dl 1 EA ONE (14:15)
[2016-08-17] MEDS ORDERED: PENDING NSS+20mEq KCL IVF SCH (14:15)
[2016-08-17] MEDS ORDERED: MODERATE STRESS LEVEL ONE (14:15)
[2016-08-17] MEDS ORDERED: PENDING D5 1/2NS+20mEq KCL IVF SCH (14:15)
[2016-08-17] MEDS ORDERED: NSS + 20MEQ KCL 1000ML 1,000 ML IV SCH (14:30)
[2016-08-17] MEDS ORDERED: INSULIN IV INFUSION PROTOCOL SCH (14:31)
--- NOTE | 2016-08-17 14:46 | Pharmacy Progress Note ---
Glycemic Control Intl Consult Date of Service Aug 17, 2016. Scope Glycemic Pharmacist consulted by Dr Veronica on 08/17/2016 for glycemic control and to write orders per [facility] inpatient glycemic control protocol Objective Weight (Kilograms): 64.200 Accuchecks BSG (last 24hrs): Test 08/17/16 10:30 08/17/16 11:31 Random Glucose 627 mg/dl (70-99) Bedside Glucose 533 mg/dl (70-99) Laboratory Data (last 24hrs) Test 08/17/16 10:30 08/17/16 11:27 Anion Gap 16.0 mmol/L 24.0 mmol/L BUN/Creatinine Ratio 6.5 Blood Urea Nitrogen 12 mg/dl Creatinine 1.80 mg/dl Potassium Level 3.6 mmol/L Sodium Level 127 mmol/L White Blood Count 6.69 K/uL Red Blood Count 5.01 M/uL Hemoglobin 14.0 g/dL Hematocrit 40.0 % Mean Corpuscular Volume 79.8 fL Mean Corpuscular Hemoglobin 27.9 pg Mean Corpuscular Hemoglobin Concent 35.0 g/dl Platelet Count 75 K/uL Neutrophils (%) (Auto) 79.2 % Lymphocytes (%) (Auto) 10.5 % Monocytes (%) (Auto) 9.0 % Eosinophils (%) (Auto) 0.7 % Basophils (%) (Auto) 0.3 % Neutrophils # (Auto) 5.30 K/uL Lymphocytes # (Auto) 0.70 K/uL Monocytes # (Auto) 0.60 K/uL Eosinophils # (Auto) 0.05 K/uL Basophils # (Auto) 0.02 K/uL Recent Pertinent Medications Outpatient Anti-diabetic Regimen: * Lantus 38 units SQ HS plus Novolog 10 units TIDM * A1c = 8.8 % 07/14/16 Risk Factors for Insulin Resistance: * Steroids: * Infection: * Pressors: * IVF: * Recent Surgery * Diet: * Mechanical Ventilation: Assessment & Plan ASSESSMENT: * ADA & AACE recommend a goal blood sugar range 140-180 mg/dl for the majority of critically ill & non-critically ill patients. However, more stringent targets may be selected in individual cases. In this case, the patient appears to be at the beginning of DKA, a range of 150-250 mg/dL will be started until the patient's anion gap normalizes. * Mr Broderick is a 61 y/o M who is familiar to the glycemic service. He has a PMH of ESLD with ascites and depression. He is admitted for nausea and vomiting currently. The patient's laboratory values on admission were concerning. His anion gap was 24 but bicarbonate was 26. His BHB was elevated while there were trace ketones in his urine. This was concerning for a possible DKA....an insulin drip was initiated due to the metabolic abnormalities. * As the patient has significant liver and kidney dysfunction, it will be attempted to place the patient on SQ basal-bolus insulin as soon as possible. While it is not currently possible to determine a regimen for the patient's basal-bolus insulin regimen, the patient will be transitioned as quickly as possible. PLAN FOR INPATIENT GLYCEMIC CONTROL: * Starting IV insulin infusion per moderate stress protocol * Goal Range 150 - 250 mg/dl * In the critical care setting, continuous IV insulin infusion has been shown to be the best method for achieving glycemic targets. * Please note that the plan above was derived based on current level of insulin resistance and hospital stress. These recommendations are appropriate for inpatient admission only. Plan of care upon discharge will need to be reassessed to avoid potential outpatient hypo/hyperglycemia. Thank you.
[2016-08-17 14:53] LABS: MAGNESIUM 1.9 mg/dl (1.8-2.4); PHOSPHORUS 1.3 mg/dl (2.5-4.9)
[2016-08-17] MEDS ORDERED: INSULIN HUMAN REGULAR IV BOLUS 1.5 UNIT in SYRINGE 0 ML IV SCH (15:00)
[2016-08-17] MEDS ORDERED: POTASSIUM PHOS 3 MMOL/1 ML INFUSION IV STA (15:25)
--- NOTE | 2016-08-17 15:42 | History and Physical ---
History & Physical Date & Time of Service: Aug 17, 2016 at 15:27 Chief Complaint: Hyperglycemia Primary Care Physician: Chacha Munoz D.O. History of Present Illness Source: patient, family, clinic records, hospital records This is a 61 year old male with a PMH of BETANCOURT cirrhosis, recurrent ascites requiring recurrent paracentesis, multiple complications regarding cirrhosis including encephalopathy, esophageal varices, thrombocytopenia; he has insulin dependent DM2, Hypothyroidism, HLD, chronic pain syndrome presents due weakness and worsening abdominal pain. Presents to the ER, had CT abdominal pain done, showing known cirrhosis, moderate ascites and some known varices as well. On exam, the abdomen looks much improved, no significant swelling/distention noted. States that for the past week he has been on Aldactone twice daily and Lasix twice daily - this was recently switched back to his once a day dosing by PCP. States he could not afford Rifaximin and his PCP told him to take Flagyl in place of it. Has been following with GI in [place] for possible TIPS procedure. Will have an echo and Liver MRI done as outpatient on Sunday, August 21. Also on admission, was noted to have BSGs > 600, mild serum ketones and ketonuria with an elevated anion gap. States he has been taking his medications as prescribed. Denies other symptoms. 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 Surgical Problems: (1) H/O esophagogastroduodenoscopy Status: Resolved (2) H/O knee surgery Status: Resolved (3) S/P cervical spinal fusion Status: Resolved (4) S/P IVC filter Status: Resolved (5) S/P lumbar fusion Status: Resolved (6) S/P T&A (status post tonsillectomy and adenoidectomy) Status: Resolved Family History FH: CAD (coronary artery disease) FATHER FH: breast cancer MOTHER Social History Smoking Status: Never Smoker Drug Use: none Marital Status: single Housing status: lives with roommate Occupational Status: retired Immunizations History of Influenza Vaccine: Yes Influenza Vaccine Date: Oct 21, 2014 History of Tetanus Vaccine?: Yes Tetanus Immunization Date: Mar 15, 1972 History of Pneumococcal: Yes Pneumococcal Date: Feb 05, 2009 History of Hepatitis B Vaccine: Yes Hepatitis Immunization Date: June 18, 2013 Multi-Drug Resistant Organisms History of MDRO: No Allergies Coded Allergies: Acetaminophen (Verified Allergy, Severe, ESLD (BETANCOURT). on Liver transplant list. Cannot have APAP., 08/17/16) Morphine (Verified Allergy, Severe, RED HIVE WENT UP ARM FROM IV SITE, ) NSAIDs (Verified Allergy, Severe, DUE TO LIVER DISEAS, 08/17/16) Penicillins (Verified Allergy, Severe, JOINT SWELLING AND FEVER, 08/17/16) Fentanyl (Verified Allergy, Intermediate, rash, 08/17/16) Levofloxacin (Verified Allergy, Intermediate, RASH, 08/17/16) pt developed erythema at site of IV injection with itching Vancomycin (Verified Allergy, Mild, HIVES, 08/17/16) HIVES Tramadol (Verified Allergy, Unknown, NOT TO TAKE WITH KEPPRA DUE TO SEIZURE RISK, 08/17/16) Home Medications Scheduled Escitalopram (Lexapro), 10 MG PO DAILY Ferrous Sulfate (Kp Ferrous Sulfate), 325 MG PO BID Furosemide (Lasix), 40 MG PO BID17 Insulin Aspart (Novolog), 10 UNITS SQ TIDM Insulin Glargine (Lantus), 38 UNITS SC HS Lactulose (Chronulac), 20 GM PO TID Levetiractam (Levetiracetam), 500 MG PO AMHS Levothyroxine Sodium (Synthroid), 75 MCG PO DAILY Magnesium Oxide (Mag-Ox), 400 MG PO BID Melatonin (Kp Melatonin), 1 TAB PO HS Metronidazole (Flagyl), 500 MG PO DAILY Pantoprazole (Protonix), 40 MG PO BID Propranolol (Inderal), 10 MG PO BID Pyridoxine Hcl (Vitamin B-6), 25 MG PO HS Spironolactone (Aldactone), 1 TAB PO BID Scheduled PRN Hydromorphone Hcl (Dilaudid), 4 MG PO TID PRN for Pain Ondasetron Odt (Zofran Odt), 4 MG SL Q6H PRN for Nausea or Vomiting Triamcinolone Acet (Aristocort 0.1%), 1 APPL EXT BID PRN for dermatitis Review of Systems Constitutional: + weight loss, + weakness, + fatigue, No fever, No chills, No sweats Respiratory: No cough, No sputum, No shortness of breath, No dyspnea on exertion, No dyspnea at rest Cardiovascular: No chest pain, No edema, No palpitations Abdomen: + pain, + nausea, No vomiting, No diarrhea, No constipation, No GI bleeding Musculoskeletal: No joint pain, No muscle pain Genitourinary - Male: No hematuria, No dysuria, No urinary frequency Neurologic: No memory loss Psychiatric: No depression symptoms, No anxiety, No insomnia Endocrine: + fatigue, + excessive thirst, No excessive urination Hematologic / Lymphatic: No abnormal bleeding/bruising Integumentary: No rash Allergic / Immunologic: No environmental allergies, No seasonal allergies Physical Exam Vital Signs Date Time Temp Pulse Resp B/P (MAP) Pulse Ox O2 Delivery O2 Flow Rate FiO2 08/17/16 14:47 36.6 86 22 105/69 (81) 99 Room Air 08/17/16 14:06 78 16 99 08/17/16 14:01 75 13 117/70 99 08/17/16 13:56 75 12 99 08/17/16 13:51 76 12 98 08/17/16 13:50 115/76 08/17/16 13:46 87 19 98 08/17/16 13:41 75 20 98 08/17/16 13:36 73 20 115/76 98 08/17/16 13:21 76 11 99 08/17/16 13:06 80 15 99 08/17/16 13:05 100 Room Air 08/17/16 13:01 115/94 08/17/16 12:51 81 23 100 08/17/16 12:36 79 18 99 08/17/16 12:35 131/87 08/17/16 12:21 78 99 08/17/16 11:36 83 9 99 08/17/16 11:31 123/84 08/17/16 11:21 83 9 100 08/17/16 11:16 84 11 100 7/13/17 11:01 92 18 121/72 100 08/17/16 10:56 106/62 08/17/16 10:46 89 19 08/17/16 10:31 87 15 08/17/16 10:16 89 18 08/17/16 10:01 88 15 99 08/17/16 09:46 88 14 99 08/17/16 09:36 84 08/17/16 09:24 130/83 08/17/16 09:23 36.8 85 17 130/83 98 Room Air General Appearance: no apparent distress Head: normocephalic, atraumatic Eyes: normal inspection ENT: hearing grossly normal Respiratory/Chest: chest non-tender, lungs clear, normal breath sounds, no respiratory distress, no accessory muscle use Cardiovascular: regular rate, rhythm, no edema, no murmur Abdomen/GI: + tenderness (diffuse abdominal tenderness, no significant distention), + hernia Extremities/Musculoskelatal: normal inspection, no calf tenderness, normal capillary refill, no pedal edema, normal range of motion Neurologic/Psych: no motor/sensory deficits, alert, normal mood/affect Skin: normal color Diagnostics Laboratory Results Results Past 24 Hours Test 08/17/16 09:25 08/17/16 10:30 08/17/16 11:27 08/17/16 11:31 Range/Units Urine Color YELLOW Urine Appearance CLEAR CLEAR Urine pH 7.0 4.5-7.5 Urine Specific [place] 1.028 1.000-1.030 Urine Protein NEG NEG Urine Glucose (UA) 3+ NEG Urine Ketones TRACE NEG Urine Occult Blood NEG NEG Urine Nitrite NEG NEG Urine Bilirubin NEG NEG Urine Urobilinogen NEG NEG Urine Leukocyte Esterase NEG NEG White Blood Count 6.69 4.8-10.8 K/uL Red Blood Count 5.01 4.7-6.1 M/uL Hemoglobin 14.0 14.0-18.0 g/dL Hematocrit 40.0 42-52 % Mean Corpuscular Volume 79.8 80-100 fL Mean Corpuscular Hemoglobin 27.9 25-34 pg Mean Corpuscular Hemoglobin Concent 35.0 32-36 g/dl Platelet Count 75 130-400 K/uL Neutrophils (%) (Auto) 79.2 % Lymphocytes (%) (Auto) 10.5 % Monocytes (%) (Auto) 9.0 % Eosinophils (%) (Auto) 0.7 % Basophils (%) (Auto) 0.3 % Neutrophils # (Auto) 5.30 1.4-6.5 K/uL Lymphocytes # (Auto) 0.70 1.2-3.4 K/uL Monocytes # (Auto) 0.60 0.11-0.59 K/uL Eosinophils # (Auto) 0.05 0-0.5 K/uL Basophils # (Auto) 0.02 0-0.2 K/uL RDW Standard Deviation 46.0 36.4-46.3 fL RDW Coefficient of Variation 15.8 11.5-14.5 % Immature Granulocyte % (Auto) 0.3 % Immature Granulocyte # (Auto) 0.02 0.00-0.02 K/uL Large Platelets 1+ Microcytosis PRESENT Sodium Level 127 136-145 mmol/L Potassium Level 3.6 3.5-5.1 mmol/L Chloride Level 85 98-107 mmol/L Carbon Dioxide Level 26 21-32 mmol/L Anion Gap 16.0 24.0 16-25 mmol/L Blood Urea Nitrogen 12 7-18 mg/dl Creatinine 1.80 0.60-1.40 mg/dl Est Creatinine Clear Calc Drug Dose 38.6 ml/min Estimated GFR () 45.7 Estimated GFR (Non- 39.5 BUN/Creatinine Ratio 6.5 10-20 Random Glucose 627 70-99 mg/dl Osmolality 299 280-300 mOsm/kg Calcium Level 9.4 8.5-10.1 mg/dl Phosphorus Level 1.3 2.5-4.9 mg/dl Magnesium Level 1.9 1.8-2.4 mg/dl Total Bilirubin 3.5 0.2-1 mg/dl Direct Bilirubin 1.1 0-0.2 mg/dl Aspartate Amino Transf (AST/SGOT) 33 15-37 U/L Alanine Aminotransferase (ALT/SGPT) 19 12-78 U/L Alkaline Phosphatase 148 45-117 U/L Total Protein 7.1 6.4-8.2 gm/dl Albumin 3.2 3.4-5.0 gm/dl Lipase 139 73-393 U/L Beta-Hydroxybutyric Acid 6.67 0.2-2.81 mg/dL Bedside Hemoglobin 16.0 14.0-18.0 g/dl Bedside Hematocrit 47 42-52 % Bedside Sodium 127 135-144 mEq/L Bedside Potassium 3.6 3.3-5.0 mEq/L Bedside Chloride 83 101-112 mEq/L Bedside Total CO2 24 24-31 mEq/l Bedside Blood Urea Nitrogen 11 7-18 mg/dl Bedside Creatinine 1.2 0.6-1.3 mg/dl Bedside Glucose (other) 630 70-99 mg/dl Bedside Ionized Calcium (Wanda) 0.97 1.12-1.32 mmol/l Bedside Glucose 533 70-99 mg/dl Diagnostic Radiology ABD/PELVIS IV CONTRAST ONLY CT DOSE: 617.68 mGycm HISTORY: Pain Pt c/o diffuse abd pain TECHNIQUE: Multiaxial CT images of the abdomen and pelvis were performed following the use of intravenous contrast. COMPARISON STUDY: 07/03/2016 FINDINGS: Lung bases are clear. Findings consistent with stable hepatic cirrhosis. Splenomegaly stable from the prior study. Periesophageal, upper abdominal, and perigastric varices are considered stable. Pancreatic atrophy unchanged. Moderate abdominal and pelvic ascites. Bowel pattern is nonobstructive. Inferior vena caval filter is present. Stable postoperative changes low lumbar spine. Bowel pattern again is nonobstructive. Bladder is midline. IMPRESSION: 1. Hepatic cirrhosis and splenomegaly stable from the prior study. 2. Para esophageal and upper abdominal varices also stable. 3. Moderate abdominal and pelvic ascites similar to the prior exam. 4. Gallstones. EKG Sinus rhythm with short RI Prolonged QT Abnormal ECG Impression Assessment and Plan This is a 61 year old male with a PMH of BETANCOURT cirrhosis, recurrent ascites requiring recurrent paracentesis, multiple complications regarding cirrhosis including encephalopathy, esophageal varices, thrombocytopenia; he has insulin dependent DM2, Hypothyroidism, HLD, chronic pain syndrome presents due weakness and worsening abdominal pain; found to have uncontrolled blood sugars Mild DKA +BSGs > 600, high anion gap, mild ketonuria, elevated b-hydroxybutyric acid given 10 units of IV insulin in the ER will start an insulin drip start NS + 20 meq KCl @ 80mL/hr pharmacy glycemic control Ha1c pending check PRP and electrolytes q4 for now monitor in tele Acute Kidney Injury creatinine on admission was 1.8 this is likely due to change in his diuretic regimen was on Lasix and Aldactone daily, switched to BID dosing by GI in [place], but now switched back to daily monitor fluid status; for now, hold both diuretics, give fluids, then restart diuretics at once daily dosing BETANCOURT Cirrhosis has been having trouble paying for Rifaximin was changed by PCP to Flagyl continues to take diuretics and Lactulose follows with GI in [place] - to have echo and MRI on Sunday; in preparation for possible TIPS consulted GI for med reconciliation regarding Flagyl Thrombocytopenia platelets ~ 75,000; monitor daily Esophageal Varices Hgb stable, monitor Hypothyroidism continue Synthroid DVT ppx SCDs secondary to thrombocytopenia FULL CODE Advanced Directives Existing Living Will: Yes Existing Power of Speech Pathology Assistant: Yes (MONA SISTER ) VTE Prophylaxis VTE Risk Assessment Done? Y/N: Yes Risk Level: High
[2016-08-17] MEDS: INSULIN REGULAR 250 UNITS in SODIUM CHLORIDE 0.9% 250ML 250 ML IV SCH ×7 (15:57→22:34)
[2016-08-17] MEDS: LACTULOSE SYRUP 20 GM/30 ML UDC PO SCH ×2 (16:00→20:42)
[2016-08-17] MEDS ORDERED: INSULIN ASPART 100 UNITS/ML 3 ML PEN SC SCH (16:00)
--- NOTE | 2016-08-17 16:12 | Gastrointestinal Consultation ---
Gastrointestinal Consultation Date of Consultation: Aug 17, 2016 Attending Physician: Korey Veronica Consulting Physician: Elmira Song Reason for Consultation: Med reconciliation, nausea after taking Flagyl in place of Rifaximin History of Present Illness Patient is a 61 year old male w NAFLD cirrhosis complicated by ascites development, hx of HE, hx of SBP who currently presents to ED w c/o abd pain, n/ v since 08/09/16. He usually presented w abd and chest pain related to ascites development though this time he only had mod amt of ascites as noted on his CT scan and his last u/s guided paracentesis was done on 08/03, 5L ascites removal done. On 08/09/16 he started Flagyl in lieu of Rifaximin under the recommendation of Dr. Culver who usually follow pt's for his cirrhosis. Pt was taking Rifaximin together w Lactulose but the Rifaximin co-pay became too expensive over $700 thus Flagyl was prescribed. He continued to take Lactulose 20g TID. Though noted not much BM for a few days now. He currently is mentating well. Upon eval, it is noted that he is hyponatremic Na 127, Cr up to 1.8, BS >600. LFTs around baseline except Tbili up to 3. Past Medical/Surgical History Medical Problems: (1) Abdominal pain Status: Acute (2) Abdominal pain Status: Acute (3) Abdominal pain Status: Acute (4) Acute hyperglycemia Status: Acute (5) Ambulatory dysfunction Status: Acute (6) Ambulatory dysfunction Status: Acute (7) Anasarca Status: Acute (8) Anemia Status: Acute (9) Anemia Status: Acute (10) Anemia Status: Acute (11) Arm pain, right Status: Acute (12) Ascites Status: Acute (13) Ascites Status: Acute (14) Ascites Status: Acute (15) Ascites Status: Acute (16) Ascites Status: Acute (17) Chest pain Status: Acute (18) Chronic liver failure Status: Acute (19) Chronic low back pain Status: Acute (20) Cirrhosis Status: Acute (21) Cirrhosis of liver Status: Acute (22) Contusion of left foot Status: Acute (23) Dehydration Status: Acute (24) Diarrhea Status: Acute (25) Diffuse abdominal pain Status: Acute (26) Diffuse abdominal pain Status: Acute (27) Diffuse abdominal pain Status: Acute (28) Dyspnea Status: Acute (29) Failure of outpatient treatment Status: Acute (30) Fall Status: Acute (31) Generalized weakness Status: Acute (32) Generalized weakness Status: Acute (33) HHNC (hyperglycemic hyperosmolar nonketotic coma) Status: Acute (34) Hyperammonemia Status: Acute (35) Hyperglycemia Status: Acute (36) Hyperglycemia Status: Acute (37) Hyperglycemia Status: Acute (38) Hyperglycemia Status: Acute (39) Hypoglycemia Status: Acute (40) Hypoglycemia Status: Acute (41) Left arm pain Status: Acute (42) Left sided chest pain Status: Acute (43) Muscle weakness Status: Acute (44) Nausea vomiting and diarrhea Status: Acute (45) Nausea, vomiting, and diarrhea Status: Acute (46) Thrombocytopenia Status: Acute (47) Thrombocytopenia Status: Acute (48) Weakness Status: Acute Past Medical History: See above Past Surgical History: IVC filter Cervical spinal fusion Lumbar fusion T&A Family History FH: CAD (coronary artery disease) FATHER FH: breast cancer MOTHER Social History Smoking Status: Never Smoker Alcohol Use: none Drug Use: none Marital Status: single Housing Status: lives with roommate Occupation Status: retired Allergies Coded Allergies: Acetaminophen (Verified Allergy, Severe, ESLD (BETANCOURT). on Liver transplant list. Cannot have APAP., 08/17/16) Morphine (Verified Allergy, Severe, RED HIVE WENT UP ARM FROM IV SITE, ) NSAIDs (Verified Allergy, Severe, DUE TO LIVER DISEAS, 08/17/16) Penicillins (Verified Allergy, Severe, JOINT SWELLING AND FEVER, 08/17/16) Fentanyl (Verified Allergy, Intermediate, rash, 08/17/16) Levofloxacin (Verified Allergy, Intermediate, RASH, 08/17/16) pt developed erythema at site of IV injection with itching Vancomycin (Verified Allergy, Mild, HIVES, 08/17/16) HIVES Tramadol (Verified Allergy, Unknown, NOT TO TAKE WITH KEPPRA DUE TO SEIZURE RISK, 08/17/16) Current Medications Home Meds and Scripts Medications Dose Route/Sig Max Daily Dose Days Date Category Dose Instructions Kp Melatonin (Melatonin) 3 Mg Tab 1 Tab PO HS 30 08/17/16 Reported Lasix (Furosemide) 40 Mg Tab 40 Mg PO BID17 08/17/16 Reported Flagyl (Metronidazole) 500 Mg Tab 500 Mg PO DAILY 08/17/16 Reported Dilaudid (Hydromorphone Hcl) 4 Mg Tab 4 Mg PO TID PRN 07/01/16 Reported Novolog (Insulin Aspart) 100 Units/Ml Inj 10 Units SQ TIDM 05/15/16 Reported PLUS SLIDING SCALE Kp Ferrous Sulfate (Ferrous Sulfate) 325 Mg Tab 325 Mg PO BID 04/27/16 Reported Chronulac (Lactulose) 10 Gm/15 Ml Syrp 20 Gm PO TID 03/27/16 Reported Aristocort 0.1% (Triamcinolone Acet) 90 Appln/30 Gm Cr 1 Appl EXT BID PRN 03/27/16 Reported Lantus (Insulin Glargine) 100 Unit/Ml Inj 38 Units SC HS 03/13/16 Reported Levetiracetam (Levetiractam) 500 Mg Tab 500 Mg PO AMHS 03/13/16 Reported Aldactone (Spironolactone) 100 Mg Tab 1 Tab PO BID 30 12/10/15 Reported Inderal (Propranolol HCl) 10 Mg Tab 10 Mg PO BID 06/04/15 Reported Vitamin B-6 (Pyridoxine Hcl) 25 Mg Tab 25 Mg PO HS 06/04/15 Reported Synthroid (Levothyroxine Sodium) 75 Mcg Tab 75 Mcg PO DAILY 05/07/15 Reported Zofran Odt (Ondansetron HCl) 4 Mg Tab 4 Mg SL Q6H PRN 05/07/15 Reported Lexapro (Escitalopram Oxalate) 10 Mg Tab 10 Mg PO DAILY 10/30/14 Reported Protonix (Pantoprazole) 40 Mg Tab 40 Mg PO BID 08/04/14 Reported Mag-Ox (Magnesium Oxide) 400 Mg Tab 400 Mg PO BID 09/29/11 Reported Review of Systems Constitutional: No fever, No chills Respiratory: No cough, No shortness of breath Cardiac: No chest pain Abdomen: + pain, + nausea, + vomiting, + constipation Skin: No rash, No itch, No jaundice Physical Exam Date Time Temp Pulse Resp B/P (MAP) Pulse Ox O2 Delivery O2 Flow Rate FiO2 08/17/16 14:47 36.6 86 22 105/69 (81) 99 Room Air 08/17/16 14:06 78 16 99 08/17/16 14:01 75 13 117/70 99 08/17/16 13:56 75 12 99 08/17/16 13:51 76 12 98 08/17/16 13:50 115/76 08/17/16 13:46 87 19 98 08/17/16 13:41 75 20 98 08/17/16 13:36 73 20 115/76 98 08/17/16 13:21 76 11 99 08/17/16 13:06 80 15 99 08/17/16 13:05 100 Room Air 08/17/16 13:01 115/94 08/17/16 12:51 81 23 100 08/17/16 12:36 79 18 99 08/17/16 12:35 131/87 08/17/16 12:21 78 99 08/17/16 11:36 83 9 99 08/17/16 11:31 123/84 08/17/16 11:21 83 9 100 08/17/16 11:16 84 11 100 08/17/16 11:01 92 18 121/72 100 08/17/16 10:56 106/62 08/17/16 10:46 89 19 08/17/16 10:31 87 15 08/17/16 10:16 89 18 08/17/16 10:01 88 15 99 08/17/16 09:46 88 14 99 08/17/16 09:36 84 08/17/16 09:24 130/83 08/17/16 09:23 36.8 85 17 130/83 98 Room Air General Appearance: WD/WN, no apparent distress Eyes: normal inspection, PERRL, EOMI Neck: supple, no JVD, trachea midline Respiratory/Chest: normal breath sounds, no respiratory distress, no accessory muscle use Cardiovascular: regular rate, rhythm, no gallop, no murmur Abdomen: normal bowel sounds, non tender, soft Extremities: normal inspection, no pedal edema, no calf tenderness Neurologic/Psych: alert, normal mood/affect, oriented x 3 Skin: normal color, no jaundice, no rash Laboratory Results Last 24 Hours Test 08/17/16 09:25 08/17/16 10:30 08/17/16 11:27 08/17/16 11:31 Urine Color YELLOW Urine Appearance CLEAR Urine pH 7.0 Urine Specific [place] 1.028 Urine Protein NEG Urine Glucose (UA) 3+ Urine Ketones TRACE Urine Occult Blood NEG Urine Nitrite NEG Urine Bilirubin NEG Urine Urobilinogen NEG Urine Leukocyte Esterase NEG White Blood Count 6.69 K/uL Red Blood Count 5.01 M/uL Hemoglobin 14.0 g/dL Hematocrit 40.0 % Mean Corpuscular Volume 79.8 fL Mean Corpuscular Hemoglobin 27.9 pg Mean Corpuscular Hemoglobin Concent 35.0 g/dl Platelet Count 75 K/uL Neutrophils (%) (Auto) 79.2 % Lymphocytes (%) (Auto) 10.5 % Monocytes (%) (Auto) 9.0 % Eosinophils (%) (Auto) 0.7 % Basophils (%) (Auto) 0.3 % Neutrophils # (Auto) 5.30 K/uL Lymphocytes # (Auto) 0.70 K/uL Monocytes # (Auto) 0.60 K/uL Eosinophils # (Auto) 0.05 K/uL Basophils # (Auto) 0.02 K/uL RDW Standard Deviation 46.0 fL RDW Coefficient of Variation 15.8 % Immature Granulocyte % (Auto) 0.3 % Immature Granulocyte # (Auto) 0.02 K/uL Large Platelets 1+ Microcytosis PRESENT Sodium Level 127 mmol/L Potassium Level 3.6 mmol/L Chloride Level 85 mmol/L Carbon Dioxide Level 26 mmol/L Anion Gap 16.0 mmol/L 24.0 mmol/L Blood Urea Nitrogen 12 mg/dl Creatinine 1.80 mg/dl Est Creatinine Clear Calc Drug Dose 38.6 ml/min Estimated GFR () 45.7 Estimated GFR (Non- 39.5 BUN/Creatinine Ratio 6.5 Random Glucose 627 mg/dl Osmolality 299 mOsm/kg Calcium Level 9.4 mg/dl Phosphorus Level 1.3 mg/dl Magnesium Level 1.9 mg/dl Total Bilirubin 3.5 mg/dl Direct Bilirubin 1.1 mg/dl Aspartate Amino Transf (AST/SGOT) 33 U/L Alanine Aminotransferase (ALT/SGPT) 19 U/L Alkaline Phosphatase 148 U/L Total Protein 7.1 gm/dl Albumin 3.2 gm/dl Lipase 139 U/L Beta-Hydroxybutyric Acid 6.67 mg/dL Bedside Hemoglobin 16.0 g/dl Bedside Hematocrit 47 % Bedside Sodium 127 mEq/L Bedside Potassium 3.6 mEq/L Bedside Chloride 83 mEq/L Bedside Total CO2 24 mEq/l Bedside Blood Urea Nitrogen 11 mg/dl Bedside Creatinine 1.2 mg/dl Bedside Glucose (other) 630 mg/dl Bedside Ionized Calcium (Wanda) 0.97 mmol/l Bedside Glucose 533 mg/dl Test 08/17/16 15:38 08/17/16 16:00 Bedside Glucose 424 mg/dl Impression Patient is a 61 year old male w n/v, abd pain since starting Flagyl on 08/09/16. He couldn't afford Rifaximin anymore since copay went up, thus Flagyl was prescribed. He was noted to have Hyponatremia, Cr up to 1.8, and BS >600s. Thus these may also contribute partly to his symptoms. Plan - DC Flagyl; this med was still in his active med list when I saw him - Continue Lactulose 20mg TID; add Miralax 17g BID. Will titrate goal of 3-5BMs daily. Other med options for hepatic encephalopathy include Neomycin, Vancomycin though he is allergic to Vancomycin and Neomycin has risk for nephro/ ototoxicity. - Monitor renal function, electrolytes, BS. - Will watch peripherally, call if new questions/concerns arise.
[2016-08-17 17:02] LABS: BUN/CREATININE RATIO 7.5 (10-20); CALCIUM 8.8 mg/dl (8.5-10.1); CREATININE 1.5 mg/dl (0.60-1.40); POTASSIUM 3.6 mmol/L (3.5-5.1)
[2016-08-17] MEDS ORDERED: POTASSIUM PHOSPHATE INJ 15 MMOL in SODIUM CHLORIDE 0.9% 250ML 250 ML IV SCH (17:15)
[2016-08-17 17:28] LABS: BETA-HYDROXYBUTYRATE 1.37 mg/dL (0.2-2.81)
[2016-08-17] MEDS: INSULIN ASPART 100 UNITS/ML 3 ML PEN SC SCH ×2 (18:04→21:34)
[2016-08-17] MEDS: ONDANSETRON INJ 2 MG/ML 2 ML VIAL IV PRN (20:39)
[2016-08-17] MEDS: POLYETHYLENE (MIRALAX) 17 GM PACK PO SCH (20:40)
[2016-08-17] MEDS: PROPRANOLOL HCL 10 MG TAB PO SCH (20:42)
[2016-08-17] MEDS: FERROUS SULFATE 325 MG TAB PO SCH (20:42)
[2016-08-17] MEDS: MAGNESIUM OXIDE 400 MG TAB PO SCH (20:43)
[2016-08-17] MEDS: LEVETIRACETAM 500 MG TAB PO SCH (20:43)
[2016-08-17] MEDS: PANTOprazole SOD 40 MG TAB PO SCH (20:43)
[2016-08-17] MEDS: PYRIDOXINE HCL 50 MG TAB PO SCH (20:44)
[2016-08-17 20:57] LABS: BUN/CREATININE RATIO 6.5 (10-20); CALCIUM 8.5 mg/dl (8.5-10.1); CREATININE 1.7 mg/dl (0.60-1.40); POTASSIUM 3.9 mmol/L (3.5-5.1)
[2016-08-17] MEDS ORDERED: INSULIN GLARGINE SOLOSTAR 100 UNITS/ML 3 ML PEN SC SCH (21:00)
[2016-08-17] MEDS ORDERED: NON-FORMULARY MEDICATION (Melatonin (Kp Melatonin) 1 TAB) PO SCH (21:00)
[2016-08-17 21:08] LABS: BETA-HYDROXYBUTYRATE 0.87 mg/dL (0.2-2.81)
[2016-08-18] VITALS (8 sets, daily range): BP systolic 104–120; BP diastolic 62–78; PULSE 64–75; TEMP 36.4–36.7; O2SAT 94–98; BMI 19.5
[2016-08-18] MEDS: INSULIN REGULAR 250 UNITS in SODIUM CHLORIDE 0.9% 250ML 250 ML IV SCH (00:05)
[2016-08-18] MEDS ORDERED: NURSING VERBAL MED ORDER ONE (00:30)
[2016-08-18] MEDS ORDERED: D5W AND 1/2NSS + 20MEQ KCL 1,000 ML IV SCH (00:30)
[2016-08-18 00:34] LABS: BUN/CREATININE RATIO 6.9 (10-20); CALCIUM 8.4 mg/dl (8.5-10.1); CREATININE 1.4 mg/dl (0.60-1.40); POTASSIUM 3.4 mmol/L (3.5-5.1)
[2016-08-18] MEDS ORDERED: SODIUM CHLORIDE 0.9% 1000ML 1,000 ML IV SCH (02:30)
--- NOTE | 2016-08-18 02:36 | Progress Note ---
Progress Note Date of Service Aug 18, 2016. Progress Note 2:30am: (DKA Management) pt has had decrease in blood sugar to 198 with a close of his gap. He currently has D51/2NS+KCL running. He was given Novolog last night and ate an egg salad sandwich. Will stop insulin drip now, change IVF to NS x 1 bag, cont with one more PRP check with morning labs. Cont ISS with carb coverage and Lantus ordered for later this morning. DO Rui
[2016-08-18 04:42] LABS: BUN/CREATININE RATIO 7.6 (10-20); CALCIUM 8.2 mg/dl (8.5-10.1); CREATININE 1.1 mg/dl (0.60-1.40); POTASSIUM 3.7 mmol/L (3.5-5.1)
[2016-08-18] MEDS: LEVOTHYROXINE 75 MCG TAB PO SCH (06:11)
[2016-08-18] MEDS: HYDROmorphone HCL 2 MG TAB PO PRN ×3 (06:19→21:49)
[2016-08-18] MEDS: ONDANSETRON INJ 2 MG/ML 2 ML VIAL IV PRN ×3 (06:19→21:50)
[2016-08-18 07:00] LABS: ESTIMATED AVERAGE GLUCOSE 303 mg/dl; HA1C FLAG Normal (Normal)
[2016-08-18] MEDS: POLYETHYLENE (MIRALAX) 17 GM PACK PO SCH ×2 (07:30→21:00)
[2016-08-18] MEDS ORDERED: INSULIN GLARGINE SOLOSTAR 100 UNITS/ML 3 ML PEN SC ONE (07:30)
[2016-08-18] MEDS: LACTULOSE SYRUP 20 GM/30 ML UDC PO SCH ×3 (07:53→21:51)
[2016-08-18] MEDS: MAGNESIUM OXIDE 400 MG TAB PO SCH ×2 (07:54→21:50)
[2016-08-18] MEDS: LEVETIRACETAM 500 MG TAB PO SCH ×2 (07:54→21:51)
[2016-08-18] MEDS: PROPRANOLOL HCL 10 MG TAB PO SCH ×2 (07:54→21:50)
[2016-08-18] MEDS: ESCITALOPRAM OXALATE 10 MG TAB PO SCH (07:55)
[2016-08-18] MEDS: PANTOprazole SOD 40 MG TAB PO SCH ×2 (07:55→21:51)
[2016-08-18] MEDS: INSULIN ASPART 100 UNITS/ML 3 ML PEN SC SCH ×4 (07:57→21:56)
[2016-08-18] MEDS: FERROUS SULFATE 325 MG TAB PO SCH ×2 (07:58→21:51)
[2016-08-18] MEDS: FUROSEMIDE 40 MG TAB PO SCH ×2 (07:59→17:50)
[2016-08-18] MEDS: SPIRONOLACTONE 100 MG TAB PO SCH ×2 (07:59→17:50)
[2016-08-18] MEDS ORDERED: METRONIDAZOLE 500 MG TAB PO SCH (08:00)
--- NOTE | 2016-08-18 10:07 | Pharmacy Progress Note ---
Glycemic Control Progress Note Date of Service Aug 18, 2016. Scope Glycemic Pharmacist consulted for glycemic control to write orders per [facility] inpatient glycemic control protocol. Objective Accuchecks BSG (last 24hrs): Test 08/17/16 10:30 08/17/16 11:31 08/17/16 14:06 08/17/16 15:38 Random Glucose 627 mg/dl (70-99) Bedside Glucose 533 mg/dl (70-99) 492 mg/dl (70-99) 424 mg/dl (70-99) Test 08/17/16 16:00 08/17/16 17:12 08/17/16 18:20 08/17/16 19:19 Random Glucose 456 mg/dl (70-99) Bedside Glucose 490 mg/dl (70-99) 498 mg/dl (70-99) 510 mg/dl (70-99) Test 08/17/16 20:03 08/17/16 20:14 08/17/16 21:13 08/17/16 22:12 Random Glucose 497 mg/dl (70-99) Bedside Glucose 457 mg/dl (70-99) 467 mg/dl (70-99) 416 mg/dl (70-99) Test 08/17/16 23:19 08/17/16 23:58 08/18/16 00:14 08/18/16 01:19 Bedside Glucose 305 mg/dl (70-99) 217 mg/dl (70-99) 204 mg/dl (70-99) Random Glucose 258 mg/dl (70-99) Test 08/18/16 02:17 08/18/16 04:14 08/18/16 07:38 Bedside Glucose 198 mg/dl (70-99) 224 mg/dl (70-99) Random Glucose 191 mg/dl (70-99) HbA1c: Test 08/18/16 04:14 Hemoglobin A1c 12.2 % (4.5-5.6) H Recent Pertinent Medications The patient is currently receiving: * Basal insulin: None * Correctional/prandial Insulin: Novolog Correction per scale PCHS - from insulin drip order set Outpatient Anti-Diabetic Meds Lantus 38 units qHS Novolog 10 units with meals Assessment & Plan ASSESSMENT: * See progress note from 08/17 for more background info, in short: * Patient was receiving an insulin infusion but this was discontinued ~0230 by the overnight hospitalist due to AG closing and BSGs improving. This was not overlapped w/ basal insulin so he has been without for a few hours. Will plan to give a stat dose of Lantus and change the Novolog to ACHS w/ CF/CR similar to previous admissions. * If BSGs significantly elevated at lunch time, may need to give an IV bolus of insulin. * Will plan to monitor closely throughout today since he did not get overlap from IV -> SQ PLAN FOR INPATIENT GLYCEMIC CONTROL: * Basal insulin * Lantus 25 units SQ X 1 this AM, further dosing dependent upon BSGs today * Bolus insulin * NovoLog per scale ACHS or Q6hrs while NPO * Goal Range: Low 100 mg/dL - High 140 mg/dL * Correction Factor: 15 mg/dL/unit * Nutritional / Prandial insulin per carb ratio of 1 unit per 5 grams CHO consumed * Please note that the plan above was derived based on current level of insulin resistance and hospital stress. These recommendations are appropriate for inpatient admission only. Plan of care upon discharge will need to be reassessed to avoid potential outpatient hypo/hyperglycemia. Thank you.
[2016-08-18] MEDS ORDERED: INSULIN ASPART 100 UNITS/ML 3 ML PEN SC ONE (14:45)
--- NOTE | 2016-08-18 16:48 | Progress Note ---
Medicine Progress Note Date & Time of Visit: Aug 18, 2016 at 16:42. Subjective seen resting in bed, comfortable states he feels somewhat better today denies abdominal pain, nausea/vomiting, confusion strength coming back no other symptoms Objective Last 8 Hrs Date Time Temp Pulse Resp B/P (MAP) Pulse Ox O2 Delivery O2 Flow Rate FiO2 08/18/16 15:40 36.6 73 18 107/69 (82) 94 Room Air 08/18/16 11:00 36.4 64 18 120/78 (92) 96 Room Air Physical Exam: General- oriented x 3, not in distress, speaks in sentences with no effort Head- atraumatic Eyes- EOMI, anicteric ENT- oropharynx clear Neck- supple, no JVD, no adenopathy Lungs- clear breath sounds bilaterally Heart- regular rhythm; no murmur, normal rate Abdomen- normal bowel sounds, soft, nontender, non distended Extremities- no pretibial edema, no calf tenderness; peripheral pulses intact Neuro- alert, oriented x 3; no gross focal deficits Skin- warm & dry Laboratory Results: Last 24 Hours Test 08/17/16 17:12 08/17/16 18:20 08/17/16 19:19 08/17/16 20:03 Bedside Glucose 490 mg/dl 498 mg/dl 510 mg/dl Venous Blood pH 7.43 Sodium Level 130 mmol/L Potassium Level 3.9 mmol/L Chloride Level 92 mmol/L Carbon Dioxide Level 31 mmol/L Anion Gap 7.0 mmol/L Blood Urea Nitrogen 11 mg/dl Creatinine 1.70 mg/dl Est Creatinine Clear Calc Drug Dose 40.9 ml/min Estimated GFR () 49.0 Estimated GFR (Non- 42.3 BUN/Creatinine Ratio 6.5 Random Glucose 497 mg/dl Calcium Level 8.5 mg/dl Beta-Hydroxybutyric Acid 0.87 mg/dL Test 08/17/16 20:14 08/17/16 21:13 08/17/16 22:12 08/17/16 23:19 Bedside Glucose 457 mg/dl 467 mg/dl 416 mg/dl 305 mg/dl Test 08/17/16 23:58 08/18/16 00:14 08/18/16 01:19 08/18/16 02:17 Venous Blood pH 7.45 Sodium Level 134 mmol/L Potassium Level 3.4 mmol/L Chloride Level 97 mmol/L Carbon Dioxide Level 27 mmol/L Anion Gap 10.0 mmol/L Blood Urea Nitrogen 10 mg/dl Creatinine 1.40 mg/dl Est Creatinine Clear Calc Drug Dose 49.7 ml/min Estimated GFR () 62.0 Estimated GFR (Non- 53.5 BUN/Creatinine Ratio 6.9 Random Glucose 258 mg/dl Calcium Level 8.4 mg/dl Bedside Glucose 217 mg/dl 204 mg/dl 198 mg/dl Test 08/18/16 04:14 08/18/16 07:38 08/18/16 11:49 08/18/16 14:05 Venous Blood pH 7.44 Sodium Level 133 mmol/L Potassium Level 3.7 mmol/L Chloride Level 97 mmol/L Carbon Dioxide Level 29 mmol/L Anion Gap 7.0 mmol/L Blood Urea Nitrogen 8 mg/dl Creatinine 1.10 mg/dl Est Creatinine Clear Calc Drug Dose 63.2 ml/min Estimated GFR () 82.9 Estimated GFR (Non- 71.6 BUN/Creatinine Ratio 7.6 Random Glucose 191 mg/dl Estimated Average Glucose 303 mg/dl Hemoglobin A1c 12.2 % Calcium Level 8.2 mg/dl Bedside Glucose 224 mg/dl 275 mg/dl 311 mg/dl Assessment & Plan This is a 61 year old male with a PMH of BETANCOURT cirrhosis, recurrent ascites requiring recurrent paracentesis, multiple complications regarding cirrhosis including encephalopathy, esophageal varices, thrombocytopenia; he has insulin dependent DM2, Hypothyroidism, HLD, chronic pain syndrome presents due weakness and worsening abdominal pain; found to have uncontrolled blood sugars Hyperglycemia Mild DKA +BSGs > 600, high anion gap, mild ketonuria, elevated b-hydroxybutyric acid -- off Insulin drip BSGs improved on SC insulin Pharmacy consulted appreciate the input Acute Kidney Injury crea 1.1 d/c iv fluids continue diuretics BETANCOURT Cirrhosis has been having trouble paying for Rifaximin was changed by PCP to Flagyl continues to take diuretics and Lactulose follows with GI in [place] - to have echo and MRI on Sunday; in preparation for possible TIPS consulted GI- hold Flagyl, continue Lactulose, may need Miralax in addition Thrombocytopenia platelets ~ 75,000; monitor daily Esophageal Varices Hgb stable, monitor Hypothyroidism continue Synthroid DVT ppx SCDs secondary to thrombocytopenia FULL CODE Disposition pending anticipate d/c home when medically stable Current Inpatient Medications: Current Inpatient Medications Medications (Trade) Dose Ordered Sig/Ryan Route Start Time Stop Time Status Last Admin Dose Admin Ioversol (Optiray 320) 125 ml UD PRN IV 08/17/16 10:15 08/21/16 10:14 Al Hydrox/Mg Hydrox/Simethicone (Maalox Max Susp) 15 ml Q4H PRN PO 08/17/16 13:00 09/16/16 12:59 Magnesium Hydroxide (Milk Of Magnesia Susp) 30 ml Q6H PRN PO 08/17/16 13:00 09/16/16 12:59 Polyethylene (Miralax Powder Packet) 17 gm DAILY PRN PO 08/17/16 13:00 09/16/16 12:59 Ondansetron HCl (Zofran Inj) 4 mg Q6H PRN IV 08/17/16 13:00 09/16/16 12:59 08/18/16 14:57 4 MG Glucose (Glucose 40% Gel) 15-30 GRAMS 15 GRAMS... UD PRN PO 08/17/16 13:00 09/16/16 12:59 Glucose (Glucose Chew Tab) 4-8 Tablets 4 Tabl... UD PRN PO 08/17/16 13:00 09/16/16 12:59 Dextrose (Dextrose 50% 50ML Syringe) 25-50ML OF 50% DW IV FOR... UD PRN IV 08/17/16 13:00 09/16/16 12:59 Glucagon (Glucagon Inj) 1 mg UD PRN SQ 08/17/16 13:00 09/16/16 12:59 Miscellaneous Information (Consult Glycemic Management Pharmacy) 1 ea UD PRN N/A 08/17/16 13:37 09/16/16 13:36 Escitalopram Oxalate (Lexapro Tab) 10 mg DAILY PO 08/18/16 08:00 09/17/16 08:59 08/18/16 07:55 10 MG Furosemide (Lasix Tab) 40 mg BID17 PO 08/17/16 17:00 09/16/16 16:59 Future hold Hydromorphone HCl (Dilaudid Tab) 4 mg TID PRN PO 08/17/16 13:00 08/31/16 12:59 08/18/16 14:58 4 MG Lactulose (Chronulac Syrup) 20 gm TID PO 08/17/16 14:00 09/16/16 13:59 08/18/16 14:57 20 GM Levetiracetam (Keppra Tab) 500 mg AMHS PO 08/17/16 20:00 09/16/16 20:59 08/18/16 07:54 500 MG Levothyroxine Sodium (Synthroid Tab) 75 mcg DAILYBB PO 08/18/16 06:30 09/17/16 06:59 08/18/16 06:11 75 MCG Magnesium Oxide (Mag-Ox Tab) 400 mg BID PO 08/17/16 20:00 09/16/16 20:59 08/18/16 07:54 400 MG Ondansetron HCl (Zofran Odt) 4 mg Q6H PRN SL 08/17/16 13:00 09/16/16 12:59 08/17/16 13:46 4 MG Pantoprazole Sodium (Protonix Tab) 40 mg BID PO 08/17/16 20:00 09/16/16 20:59 08/18/16 07:55 40 MG Propranolol HCl (Inderal Tab) 10 mg BID PO 08/17/16 20:00 09/16/16 20:59 08/18/16 07:54 10 MG Spironolactone (Aldactone Tab) 100 mg BID17 PO 08/17/16 17:00 09/16/16 16:59 Future hold Triamcinolone Acetonide (Kenalog 0.1% Cream) 1 appln BID PRN EXT 08/17/16 13:00 09/16/16 12:59 Ferrous Sulfate (Feosol Tab) 325 mg BID PO 08/17/16 20:00 09/16/16 20:59 08/18/16 07:58 325 MG Pyridoxine HCl (Vitamin B-6 Tab) 25 mg HS PO 08/17/16 21:00 09/16/16 20:59 08/17/16 20:44 25 MG Polyethylene (Miralax Powder Packet) 17 gm BID PO 08/17/16 20:00 09/16/16 19:59 Insulin Aspart (novoLOG ASPART) SLIDING SCALE ACHS SC 08/18/16 07:30 09/17/16 07:29 08/18/16 12:06 24 UNITS Insulin Glargine (Lantus Solostar Pen) SEE PROTOCOL TEXT BID SC 08/18/16 21:00 09/17/16 20:59
[2016-08-18] MEDS: PYRIDOXINE HCL 50 MG TAB PO SCH (21:52)
[2016-08-18] MEDS: INSULIN GLARGINE SOLOSTAR 100 UNITS/ML 3 ML PEN SC SCH (21:57)
[2016-08-19] VITALS (7 sets, daily range): BP systolic 93–125; BP diastolic 48–70; PULSE 61–79; TEMP 36.5–36.8; O2SAT 94–98
[2016-08-19] MEDS: HYDROmorphone HCL 2 MG TAB PO PRN ×3 (06:06→21:44)
[2016-08-19] MEDS: ONDANSETRON INJ 2 MG/ML 2 ML VIAL IV PRN ×3 (06:06→19:08)
[2016-08-19] MEDS: LEVOTHYROXINE 75 MCG TAB PO SCH (06:06)
[2016-08-19 06:29] LABS: HEMATOCRIT 35.6 % (42-52); MEAN CELL VOLUME 81.3 fL (80-100); MEAN CORPUSCULAR HEMOGLOBIN 27.6 pg (25-34); RED BLOOD COUNT 4.38 M/uL (4.7-6.1); WHITE BLOOD COUNT 5.95 K/uL (4.8-10.8)
[2016-08-19 06:32] LABS: MEAN PLATELET VOLUME 11.3 fL (7.4-10.4); PLATELET COUNT 53 K/uL (130-400)
[2016-08-19 06:49] LABS: BASO % 0.5 %; BASO ABS # 0.03 K/uL (0-0.2); COMPLETE YES; GIANT PLATELETS 1+; IG% 0.2 %; LYMPH % 12.1 %; LYMPH ABS # 0.72 K/uL (1.2-3.4); MONO % 10.1 %; NEUT % 73.1 %
[2016-08-19 07:05] LABS: BUN/CREATININE RATIO 6.7 (10-20); CALCIUM 8.4 mg/dl (8.5-10.1); MAGNESIUM 1.8 mg/dl (1.8-2.4)
[2016-08-19 07:06] LABS: PHOSPHORUS 2.3 mg/dl (2.5-4.9)
[2016-08-19] MEDS: PROPRANOLOL HCL 10 MG TAB PO SCH ×2 (07:45→21:32)
[2016-08-19] MEDS: LACTULOSE SYRUP 20 GM/30 ML UDC PO SCH ×3 (07:46→21:27)
[2016-08-19] MEDS: POLYETHYLENE (MIRALAX) 17 GM PACK PO SCH ×2 (07:46→21:32)
[2016-08-19] MEDS: FUROSEMIDE 40 MG TAB PO SCH ×2 (07:47→17:40)
[2016-08-19] MEDS: SPIRONOLACTONE 100 MG TAB PO SCH ×2 (07:47→17:40)
[2016-08-19] MEDS: FERROUS SULFATE 325 MG TAB PO SCH ×2 (07:47→21:28)
[2016-08-19] MEDS: MAGNESIUM OXIDE 400 MG TAB PO SCH ×2 (07:48→21:31)
[2016-08-19] MEDS: PANTOprazole SOD 40 MG TAB PO SCH ×2 (07:48→21:33)
[2016-08-19] MEDS: ESCITALOPRAM OXALATE 10 MG TAB PO SCH (07:48)
[2016-08-19] MEDS: LEVETIRACETAM 500 MG TAB PO SCH ×2 (07:48→21:31)
[2016-08-19] MEDS: INSULIN GLARGINE SOLOSTAR 100 UNITS/ML 3 ML PEN SC SCH ×2 (08:23→21:40)
[2016-08-19] MEDS: INSULIN ASPART 100 UNITS/ML 3 ML PEN SC SCH ×4 (08:24→21:41)
--- NOTE | 2016-08-19 13:16 | Pharmacy Progress Note ---
Glycemic Control Progress Note Date of Service Aug 19, 2016. Scope Glycemic Pharmacist consulted for glycemic control to write orders per [facility] inpatient glycemic control protocol. Objective Accuchecks BSG (last 24hrs): Test 08/18/16 14:05 08/18/16 16:32 08/18/16 20:39 08/19/16 06:15 Bedside Glucose 311 mg/dl (70-99) 219 mg/dl (70-99) 193 mg/dl (70-99) Random Glucose 171 mg/dl (70-99) Test 08/19/16 07:36 Bedside Glucose 151 mg/dl (70-99) HbA1c: Test 08/18/16 04:14 Hemoglobin A1c 12.2 % (4.5-5.6) H Recent Pertinent Medications The patient is currently receiving: * Basal insulin: Lantus dose per "sliding scale" 08/18 Rec'd 45 units total * Correctional insulin: CF 15 mg/dL/unit * Prandial insulin: CR 1 unit per 5 gm CHO consumed Outpatient Anti-Diabetic Meds Lantus 38 units qHS Novolog 10 units with meals Assessment & Plan ASSESSMENT: * See progress note from 08/18 for more background info, in short: * Patient is currently receiving an average of 105 units of insulin per day * BSGs ranging 151-286 over the past 24hrs * Risk factors for insulin resistance are constant over the past 24hrs * Anticipating insulin regimen will need increased for the next 24hrs d/t : * Total daily dose = ~100 therefore may need to evenly re-distribute regimen 50%:50% basal:prandial to prevent hypo/hyperglycemia * Post-prandial BSGs are elevated/BSGs rise throughout the day therefore Tighten CR PLAN FOR INPATIENT GLYCEMIC CONTROL: * Basal insulin * Lantus 25 units BID (give 20 units if BSG 100-140) * Bolus insulin * NovoLog per scale ACHS or Q6hrs while NPO * Goal Range: Low 100 mg/dL - High 140 mg/dL * Correction Factor: 15 mg/dL/unit * TIGHTEN Prandial insulin per carb ratio of 1 unit per 4 grams CHO consumed * Please note that the plan above was derived based on current level of insulin resistance and hospital stress. These recommendations are appropriate for inpatient admission only. Plan of care upon discharge will need to be reassessed to avoid potential outpatient hypo/hyperglycemia. Thank you.
--- NOTE | 2016-08-19 20:24 | Progress Note ---
Medicine Progress Note Date & Time of Visit: Aug 19, 2016 at 20:20. Subjective states he feels improved today comfortable resting in bed has mild abdominal discomfort but no nausea/vomiting, tolerating diet well denies chest pain, dyspnea, palpitations no other symptoms Objective Last 8 Hrs Date Time Temp Pulse Resp B/P (MAP) Pulse Ox O2 Delivery O2 Flow Rate FiO2 08/19/16 19:20 36.8 61 18 113/66 (82) 96 Room Air 08/19/16 16:00 Room Air 08/19/16 14:38 36.8 79 18 93/59 (70) 94 Room Air Physical Exam: General- oriented x 3, not in distress, speaks in sentences with no effort Eyes- anicteric Neck- no JVD Lungs- clear breath sounds bilaterally, no rales/wheezes Heart- regular rhythm; no murmur, normal rate Abdomen- normal bowel sounds, soft, nontender, non distended Extremities- no pretibial edema, no calf tenderness Neuro- alert, oriented x 3; no gross focal deficits Skin- warm & dry Laboratory Results: Last 24 Hours Test 08/18/16 20:39 08/19/16 06:15 08/19/16 07:36 08/19/16 11:22 Bedside Glucose 193 mg/dl 151 mg/dl 286 mg/dl White Blood Count 5.95 K/uL Red Blood Count 4.38 M/uL Hemoglobin 12.1 g/dL Hematocrit 35.6 % Mean Corpuscular Volume 81.3 fL Mean Corpuscular Hemoglobin 27.6 pg Mean Corpuscular Hemoglobin Concent 34.0 g/dl Platelet Count 53 K/uL Mean Platelet Volume 11.3 fL Neutrophils (%) (Auto) 73.1 % Lymphocytes (%) (Auto) 12.1 % Monocytes (%) (Auto) 10.1 % Eosinophils (%) (Auto) 4.0 % Basophils (%) (Auto) 0.5 % Neutrophils # (Auto) 4.35 K/uL Lymphocytes # (Auto) 0.72 K/uL Monocytes # (Auto) 0.60 K/uL Eosinophils # (Auto) 0.24 K/uL Basophils # (Auto) 0.03 K/uL RDW Standard Deviation 50.4 fL RDW Coefficient of Variation 16.8 % Immature Granulocyte % (Auto) 0.2 % Immature Granulocyte # (Auto) 0.01 K/uL Giant Platelets 1+ Sodium Level 134 mmol/L Potassium Level 4.0 mmol/L Chloride Level 98 mmol/L Carbon Dioxide Level 30 mmol/L Anion Gap 6.0 mmol/L Blood Urea Nitrogen 7 mg/dl Creatinine 1.00 mg/dl Est Creatinine Clear Calc Drug Dose 76.2 ml/min Estimated GFR () 93.1 Estimated GFR (Non- 80.3 BUN/Creatinine Ratio 6.7 Random Glucose 171 mg/dl Calcium Level 8.4 mg/dl Phosphorus Level 2.3 mg/dl Magnesium Level 1.8 mg/dl Test 08/19/16 16:43 08/19/16 20:06 Bedside Glucose 198 mg/dl 154 mg/dl Assessment & Plan This is a 61 year old male with a PMH of BETANCOURT cirrhosis, recurrent ascites requiring recurrent paracentesis, multiple complications regarding cirrhosis including encephalopathy, esophageal varices, thrombocytopenia; he has insulin dependent DM2, Hypothyroidism, HLD, chronic pain syndrome presents due weakness and worsening abdominal pain; found to have uncontrolled blood sugars Hyperglycemia Mild DKA, Resolved +BSGs > 600, high anion gap, mild ketonuria, elevated b-hydroxybutyric acid -- off Insulin drip BSGs improved on SC insulin Lantus and ISS Pharmacy consulted appreciate the input -- BSG improved Acute Kidney Injury crea 1.1 d/c iv fluids continue diuretics BETANCOURT Cirrhosis has been having trouble paying for Rifaximin was changed by PCP to Flagyl continues to take diuretics and Lactulose follows with GI in [place] - to have echo and MRI on Sunday; in preparation for possible TIPS consulted GI- hold Flagyl, continue Lactulose Miralax added -- compensated Thrombocytopenia platelets ~ 75,000--> 50k no bleeding monitor Esophageal Varices no signs of active bleeding monitor Hypothyroidism continue Synthroid DVT ppx SCDs secondary to thrombocytopenia FULL CODE Disposition pending anticipate d/c home when medically stable Current Inpatient Medications: Current Inpatient Medications Medications (Trade) Dose Ordered Sig/Ryan Route Start Time Stop Time Status Last Admin Dose Admin Ioversol (Optiray 320) 125 ml UD PRN IV 08/17/16 10:15 08/21/16 10:14 Al Hydrox/Mg Hydrox/Simethicone (Maalox Max Susp) 15 ml Q4H PRN PO 08/17/16 13:00 09/16/16 12:59 Magnesium Hydroxide (Milk Of Magnesia Susp) 30 ml Q6H PRN PO 08/17/16 13:00 09/16/16 12:59 Polyethylene (Miralax Powder Packet) 17 gm DAILY PRN PO 08/17/16 13:00 09/16/16 12:59 Ondansetron HCl (Zofran Inj) 4 mg Q6H PRN IV 08/17/16 13:00 09/16/16 12:59 08/19/16 19:08 4 MG Glucose (Glucose 40% Gel) 15-30 GRAMS 15 GRAMS... UD PRN PO 08/17/16 13:00 09/16/16 12:59 Glucose (Glucose Chew Tab) 4-8 Tablets 4 Tabl... UD PRN PO 08/17/16 13:00 09/16/16 12:59 Dextrose (Dextrose 50% 50ML Syringe) 25-50ML OF 50% DW IV FOR... UD PRN IV 08/17/16 13:00 09/16/16 12:59 Glucagon (Glucagon Inj) 1 mg UD PRN SQ 08/17/16 13:00 09/16/16 12:59 Miscellaneous Information (Consult Glycemic Management Pharmacy) 1 ea UD PRN N/A 08/17/16 13:37 09/16/16 13:36 Escitalopram Oxalate (Lexapro Tab) 10 mg DAILY PO 08/18/16 08:00 09/17/16 08:59 08/19/16 07:48 10 MG Furosemide (Lasix Tab) 40 mg BID17 PO 08/17/16 17:00 09/16/16 16:59 Future hold 08/19/16 17:40 40 MG Hydromorphone HCl (Dilaudid Tab) 4 mg TID PRN PO 08/17/16 13:00 08/31/16 12:59 08/19/16 14:28 4 MG Lactulose (Chronulac Syrup) 20 gm TID PO 08/17/16 14:00 09/16/16 13:59 08/19/16 15:17 20 GM Levetiracetam (Keppra Tab) 500 mg AMHS PO 08/17/16 20:00 09/16/16 20:59 08/19/16 07:48 500 MG Levothyroxine Sodium (Synthroid Tab) 75 mcg DAILYBB PO 08/18/16 06:30 09/17/16 06:59 08/19/16 06:06 75 MCG Magnesium Oxide (Mag-Ox Tab) 400 mg BID PO 08/17/16 20:00 09/16/16 20:59 08/19/16 07:48 400 MG Ondansetron HCl (Zofran Odt) 4 mg Q6H PRN SL 08/17/16 13:00 09/16/16 12:59 08/17/16 13:46 4 MG Pantoprazole Sodium (Protonix Tab) 40 mg BID PO 08/17/16 20:00 09/16/16 20:59 08/19/16 07:48 40 MG Propranolol HCl (Inderal Tab) 10 mg BID PO 08/17/16 20:00 09/16/16 20:59 08/19/16 07:45 10 MG Spironolactone (Aldactone Tab) 100 mg BID17 PO 08/17/16 17:00 09/16/16 16:59 Future hold 08/19/16 17:40 100 MG Triamcinolone Acetonide (Kenalog 0.1% Cream) 1 appln BID PRN EXT 08/17/16 13:00 09/16/16 12:59 Ferrous Sulfate (Feosol Tab) 325 mg BID PO 08/17/16 20:00 09/16/16 20:59 08/19/16 07:47 325 MG Pyridoxine HCl (Vitamin B-6 Tab) 25 mg HS PO 08/17/16 21:00 09/16/16 20:59 08/18/16 21:52 25 MG Polyethylene (Miralax Powder Packet) 17 gm BID PO 08/17/16 20:00 09/16/16 19:59 08/19/16 07:46 17 GM Insulin Aspart (novoLOG ASPART) SLIDING SCALE ACHS SC 08/18/16 07:30 09/17/16 07:29 08/19/16 17:45 14 UNITS Insulin Glargine (Lantus Solostar Pen) SEE PROTOCOL TEXT BID SC 08/18/16 21:00 09/17/16 20:59 08/19/16 08:23 20 UNITS
[2016-08-19] MEDS: PYRIDOXINE HCL 50 MG TAB PO SCH (21:34)
[2016-08-20] VITALS (8 sets, daily range): BP systolic 95–108; BP diastolic 55–66; PULSE 59–72; TEMP 36.6–37; O2SAT 94–96
[2016-08-20] MEDS: LEVOTHYROXINE 75 MCG TAB PO SCH (06:13)
[2016-08-20] MEDS: HYDROmorphone HCL 2 MG TAB PO PRN ×2 (06:18→21:30)
[2016-08-20] MEDS: ONDANSETRON INJ 2 MG/ML 2 ML VIAL IV PRN (06:18)
[2016-08-20 07:53] LABS: MEAN CORPUSCULAR HGB CONC 34.1 g/dl (32-36)
[2016-08-20 08:03] LABS: HEMATOCRIT 35.2 % (42-52); MEAN CELL VOLUME 82.2 fL (80-100); RED BLOOD COUNT 4.28 M/uL (4.7-6.1); WHITE BLOOD COUNT 5.98 K/uL (4.8-10.8)
[2016-08-20 08:26] LABS: BASO % 0.8 %; BASO ABS # 0.05 K/uL (0-0.2); COMPLETE YES; EOS % 3.2 %; IG% 0.2 %; LYMPH % 12.7 %; LYMPH ABS # 0.76 K/uL (1.2-3.4); MONO % 10.7 %; NEUT % 72.4 %; PLATELET COUNT 45 K/uL (130-400); PLT ESTIMATE DECREASED
[2016-08-20 08:29] LABS: BUN/CREATININE RATIO 6.3 (10-20); CALCIUM 8.4 mg/dl (8.5-10.1); CREATININE 1.3 mg/dl (0.60-1.40); PHOSPHORUS 2.3 mg/dl (2.5-4.9); POTASSIUM 4.1 mmol/L (3.5-5.1)
[2016-08-20] MEDS: FUROSEMIDE 40 MG TAB PO SCH ×2 (08:39→16:39)
[2016-08-20] MEDS: POLYETHYLENE (MIRALAX) 17 GM PACK PO SCH ×2 (08:39→21:00)
[2016-08-20] MEDS: PANTOprazole SOD 40 MG TAB PO SCH ×2 (08:40→21:21)
[2016-08-20] MEDS: LACTULOSE SYRUP 20 GM/30 ML UDC PO SCH ×3 (08:40→21:21)
[2016-08-20] MEDS: MAGNESIUM OXIDE 400 MG TAB PO SCH (08:40)
[2016-08-20] MEDS: LEVETIRACETAM 500 MG TAB PO SCH ×2 (08:40→21:24)
[2016-08-20] MEDS: PROPRANOLOL HCL 10 MG TAB PO SCH ×2 (08:40→21:23)
[2016-08-20] MEDS: SPIRONOLACTONE 100 MG TAB PO SCH ×2 (08:41→16:39)
[2016-08-20] MEDS: FERROUS SULFATE 325 MG TAB PO SCH ×2 (08:41→21:22)
[2016-08-20] MEDS: ESCITALOPRAM OXALATE 10 MG TAB PO SCH (08:41)
[2016-08-20] MEDS: INSULIN ASPART 100 UNITS/ML 3 ML PEN SC SCH ×4 (08:47→21:00)
[2016-08-20] MEDS: INSULIN GLARGINE SOLOSTAR 100 UNITS/ML 3 ML PEN SC SCH ×2 (08:47→20:43)
--- NOTE | 2016-08-20 10:42 | Pharmacy Progress Note ---
Glycemic Control Progress Note Date of Service Aug 20, 2016. Scope Glycemic Pharmacist consulted for glycemic control to write orders per [facility] inpatient glycemic control protocol. Objective Accuchecks BSG (last 24hrs): Test 08/19/16 11:22 08/19/16 16:43 08/19/16 20:06 08/20/16 07:25 Bedside Glucose 286 mg/dl (70-99) 198 mg/dl (70-99) 154 mg/dl (70-99) 152 mg/dl (70-99) Test 08/20/16 07:40 Random Glucose 155 mg/dl (70-99) HbA1c: Test 08/18/16 04:14 Hemoglobin A1c 12.2 % (4.5-5.6) H Recent Pertinent Medications The patient is currently receiving: * Basal insulin: Lantus dose per "sliding scale" 08/18 Rec'd 45 units total 08/19 Rec'd 45 units total * Correctional insulin: CF 15 mg/dL/unit * Prandial insulin: CR 1 unit per 4 gm CHO consumed Outpatient Anti-Diabetic Meds Lantus 38 units qHS Novolog 10 units with meals Assessment & Plan ASSESSMENT: * See progress note from 08/18 for more background info, in short: * Patient is currently receiving an average of 100 units of insulin per day * BSGs ranging 152-198 over the past 24hrs * Risk factors for insulin resistance are constant over the past 24hrs * Anticipating insulin regimen will not need significant changes over the next 24 hours PLAN FOR INPATIENT GLYCEMIC CONTROL: * Basal insulin * Continue Lantus 25 units BID (give 20 units if BSG 100-140) * Bolus insulin * NovoLog per scale ACHS or Q6hrs while NPO * Goal Range: Low 100 mg/dL - High 140 mg/dL * Correction Factor: 15 mg/dL/unit * Prandial insulin per carb ratio of 1 unit per 4 grams CHO consumed RECOMMENDATIONS FOR DISCHARGE: * A1c significantly increased * Based on current inpatient needs and elevated A1c, patient most likely needs increase in outpatient doses * Recommend increasing Lantus to 45 units qHS * Recommend increasing Novolog to 12 units with meals + sliding scale Thank you.
--- NOTE | 2016-08-20 13:44 | Progress Note ---
Medicine Progress Note Date & Time of Visit: Aug 20, 2016 at 13:40. Subjective patient seen resting in bed, comfortable states he feels as though "there is an egg beater in my stomach" had 2 loose BMs today no nausea denies chest pain ,dyspnea, palpitations, dizziness no other symptoms Objective Last 8 Hrs Date Time Temp Pulse Resp B/P (MAP) Pulse Ox O2 Delivery O2 Flow Rate FiO2 08/20/16 11:21 36.7 72 20 97/66 (76) 95 Room Air 08/20/16 08:00 Room Air 08/20/16 07:10 37.0 66 18 101/62 (75) 96 Room Air Physical Exam: General- oriented x 3, not in distress, speaks in sentences with no effort Eyes- anicteric Neck- no JVD Lungs- no rales/wheezes bilaterally Heart- regular rhythm; no murmur, normal rate Abdomen- hyperactive sounds, soft, nontender, non distended Extremities- no pretibial edema, no calf tenderness Neuro- alert, oriented x 3; no gross focal deficits Skin- warm & dry Laboratory Results: Last 24 Hours Test 08/19/16 16:43 08/19/16 20:06 08/20/16 07:25 08/20/16 07:40 Bedside Glucose 198 mg/dl 154 mg/dl 152 mg/dl White Blood Count 5.98 K/uL Red Blood Count 4.28 M/uL Hemoglobin 12.0 g/dL Hematocrit 35.2 % Mean Corpuscular Volume 82.2 fL Mean Corpuscular Hemoglobin 28.0 pg Mean Corpuscular Hemoglobin Concent 34.1 g/dl Platelet Count 45 K/uL Neutrophils (%) (Auto) 72.4 % Lymphocytes (%) (Auto) 12.7 % Monocytes (%) (Auto) 10.7 % Eosinophils (%) (Auto) 3.2 % Basophils (%) (Auto) 0.8 % Neutrophils # (Auto) 4.33 K/uL Lymphocytes # (Auto) 0.76 K/uL Monocytes # (Auto) 0.64 K/uL Eosinophils # (Auto) 0.19 K/uL Basophils # (Auto) 0.05 K/uL RDW Standard Deviation 52.9 fL RDW Coefficient of Variation 17.4 % Immature Granulocyte % (Auto) 0.2 % Immature Granulocyte # (Auto) 0.01 K/uL Platelet Estimate DECREASED Venous Blood pH 7.47 Sodium Level 134 mmol/L Potassium Level 4.1 mmol/L Chloride Level 98 mmol/L Carbon Dioxide Level 31 mmol/L Anion Gap 5.0 mmol/L Blood Urea Nitrogen 8 mg/dl Creatinine 1.30 mg/dl Est Creatinine Clear Calc Drug Dose 58.9 ml/min Estimated GFR () 67.8 Estimated GFR (Non- 58.5 BUN/Creatinine Ratio 6.3 Random Glucose 155 mg/dl Calcium Level 8.4 mg/dl Phosphorus Level 2.3 mg/dl Magnesium Level 2.0 mg/dl Test 08/20/16 11:24 Bedside Glucose 236 mg/dl Assessment & Plan This is a 61 year old male with a PMH of BETANCOURT cirrhosis, recurrent ascites requiring recurrent paracentesis, multiple complications regarding cirrhosis including encephalopathy, esophageal varices, thrombocytopenia; he has insulin dependent DM2, Hypothyroidism, HLD, chronic pain syndrome presents due weakness and worsening abdominal pain; found to have uncontrolled blood sugars Dyspepsia? - hold Mg oxide holding parameters for Miralax placed if with more than 3 BMs, check for C diff monitor Thrombocytopenia - Plt decreasing, 40k now - no signs of active bleeding - will monitor now Low Ph - will replace Hyperglycemia Mild DKA, Resolved +BSGs > 600, high anion gap, mild ketonuria, elevated b-hydroxybutyric acid -- off Insulin drip BSGs improved on SC insulin Lantus and ISS Pharmacy consulted appreciate the input -- BSG improved Acute Kidney Injury crea 1.1 d/c iv fluids continue diuretics BETANCOURT Cirrhosis has been having trouble paying for Rifaximin was changed by PCP to Flagyl continues to take diuretics and Lactulose follows with GI in [place] - to have echo and MRI on Sunday; in preparation for possible TIPS consulted GI- hold Flagyl, continue Lactulose Miralax added -- compensated Esophageal Varices no signs of active bleeding monitor Hypothyroidism continue Synthroid DVT ppx SCDs secondary to thrombocytopenia FULL CODE Disposition pending anticipate d/c home when medically stable Current Inpatient Medications: Current Inpatient Medications Medications (Trade) Dose Ordered Sig/Ryan Route Start Time Stop Time Status Last Admin Dose Admin Ioversol (Optiray 320) 125 ml UD PRN IV 08/17/16 10:15 08/21/16 10:14 Al Hydrox/Mg Hydrox/Simethicone (Maalox Max Susp) 15 ml Q4H PRN PO 08/17/16 13:00 09/16/16 12:59 Magnesium Hydroxide (Milk Of Magnesia Susp) 30 ml Q6H PRN PO 08/17/16 13:00 09/16/16 12:59 Polyethylene (Miralax Powder Packet) 17 gm DAILY PRN PO 08/17/16 13:00 09/16/16 12:59 Ondansetron HCl (Zofran Inj) 4 mg Q6H PRN IV 08/17/16 13:00 09/16/16 12:59 08/20/16 06:18 4 MG Glucose (Glucose 40% Gel) 15-30 GRAMS 15 GRAMS... UD PRN PO 08/17/16 13:00 09/16/16 12:59 Glucose (Glucose Chew Tab) 4-8 Tablets 4 Tabl... UD PRN PO 08/17/16 13:00 09/16/16 12:59 Dextrose (Dextrose 50% 50ML Syringe) 25-50ML OF 50% DW IV FOR... UD PRN IV 08/17/16 13:00 09/16/16 12:59 Glucagon (Glucagon Inj) 1 mg UD PRN SQ 08/17/16 13:00 09/16/16 12:59 Miscellaneous Information (Consult Glycemic Management Pharmacy) 1 ea UD PRN N/A 08/17/16 13:37 09/16/16 13:36 Escitalopram Oxalate (Lexapro Tab) 10 mg DAILY PO 08/18/16 08:00 09/17/16 08:59 08/20/16 08:41 10 MG Furosemide (Lasix Tab) 40 mg BID17 PO 08/17/16 17:00 09/16/16 16:59 Future hold 08/20/16 08:39 40 MG Hydromorphone HCl (Dilaudid Tab) 4 mg TID PRN PO 08/17/16 13:00 08/31/16 12:59 08/20/16 06:18 4 MG Lactulose (Chronulac Syrup) 20 gm TID PO 08/17/16 14:00 09/16/16 13:59 08/20/16 08:40 20 GM Levetiracetam (Keppra Tab) 500 mg AMHS PO 08/17/16 20:00 09/16/16 20:59 08/20/16 08:40 500 MG Levothyroxine Sodium (Synthroid Tab) 75 mcg DAILYBB PO 08/18/16 06:30 09/17/16 06:59 08/20/16 06:13 75 MCG Magnesium Oxide (Mag-Ox Tab) 400 mg BID PO 08/17/16 20:00 09/16/16 20:59 08/20/16 08:40 400 MG Ondansetron HCl (Zofran Odt) 4 mg Q6H PRN SL 08/17/16 13:00 09/16/16 12:59 08/17/16 13:46 4 MG Pantoprazole Sodium (Protonix Tab) 40 mg BID PO 08/17/16 20:00 09/16/16 20:59 08/20/16 08:40 40 MG Propranolol HCl (Inderal Tab) 10 mg BID PO 08/17/16 20:00 09/16/16 20:59 08/20/16 08:40 10 MG Spironolactone (Aldactone Tab) 100 mg BID17 PO 08/17/16 17:00 09/16/16 16:59 Future hold 08/20/16 08:41 100 MG Triamcinolone Acetonide (Kenalog 0.1% Cream) 1 appln BID PRN EXT 08/17/16 13:00 09/16/16 12:59 Ferrous Sulfate (Feosol Tab) 325 mg BID PO 08/17/16 20:00 09/16/16 20:59 08/20/16 08:41 325 MG Pyridoxine HCl (Vitamin B-6 Tab) 25 mg HS PO 08/17/16 21:00 09/16/16 20:59 08/19/16 21:34 25 MG Polyethylene (Miralax Powder Packet) 17 gm BID PO 08/17/16 20:00 09/16/16 19:59 08/20/16 08:39 17 GM Insulin Aspart (novoLOG ASPART) SLIDING SCALE ACHS SC 08/18/16 07:30 09/17/16 07:29 08/20/16 12:13 18 UNITS Insulin Glargine (Lantus Solostar Pen) SEE PROTOCOL TEXT BID SC 08/18/16 21:00 09/17/16 20:59 08/20/16 08:47 25 UNITS Potassium/ Phosphorus/Sodium (Phospha 250 Neutral 155-852-130 Mg) 1 tab QID PO 08/20/16 17:00 09/19/16 16:59 UNV
[2016-08-20] MEDS: PROMETHAZINE HCL 25 MG TAB PO PRN ×2 (16:38→23:11)
[2016-08-20] MEDS: POT PHOSPHATE MONOBASIC W/ SOD TAB PO SCH ×2 (16:38→21:22)
[2016-08-20] MEDS: PYRIDOXINE HCL 50 MG TAB PO SCH (21:24)
[2016-08-21] VITALS (9 sets, daily range): BP systolic 92–113; BP diastolic 52–71; PULSE 61–102; TEMP 36.6–36.8; O2SAT 94–98
[2016-08-21 05:49] LABS: HEMATOCRIT 34.4 % (42-52); MEAN CELL VOLUME 81.9 fL (80-100); MEAN CORPUSCULAR HEMOGLOBIN 27.9 pg (25-34); WHITE BLOOD COUNT 5.03 K/uL (4.8-10.8)
[2016-08-21 06:20] LABS: BUN/CREATININE RATIO 8.2 (10-20); CALCIUM 8.4 mg/dl (8.5-10.1); CREATININE 1.3 mg/dl (0.60-1.40); POTASSIUM 4.1 mmol/L (3.5-5.1)
[2016-08-21] MEDS: LEVOTHYROXINE 75 MCG TAB PO SCH (06:28)
[2016-08-21 06:31] LABS: PHOSPHORUS 3.1 mg/dl (2.5-4.9)
[2016-08-21 07:33] LABS: PLATELET COUNT 46 K/uL (130-400)
[2016-08-21 07:34] LABS: BASO % 0.6 %; BASO ABS # 0.03 K/uL (0-0.2); COMPLETE YES; ECHINOCYTES 1+; EOS % 3.6 %; IG% 0.2 %; LYMPH % 16.1 %; LYMPH ABS # 0.81 K/uL (1.2-3.4); MONO % 12.7 %; NEUT % 66.8 %; PLT ESTIMATE DECREASED
[2016-08-21] MEDS: FERROUS SULFATE 325 MG TAB PO SCH ×2 (07:59→21:00)
[2016-08-21] MEDS: POLYETHYLENE (MIRALAX) 17 GM PACK PO SCH ×2 (07:59→21:00)
[2016-08-21] MEDS: LACTULOSE SYRUP 20 GM/30 ML UDC PO SCH ×3 (07:59→21:00)
[2016-08-21] MEDS: LEVETIRACETAM 500 MG TAB PO SCH ×2 (08:00→21:01)
[2016-08-21] MEDS: FUROSEMIDE 40 MG TAB PO SCH ×2 (08:00→17:31)
[2016-08-21] MEDS: PANTOprazole SOD 40 MG TAB PO SCH ×2 (08:00→21:01)
[2016-08-21] MEDS: SPIRONOLACTONE 100 MG TAB PO SCH ×2 (08:00→17:31)
[2016-08-21] MEDS: ESCITALOPRAM OXALATE 10 MG TAB PO SCH (08:01)
[2016-08-21] MEDS: POT PHOSPHATE MONOBASIC W/ SOD TAB PO SCH ×2 (08:01→14:36)
[2016-08-21] MEDS: HYDROmorphone HCL 2 MG TAB PO PRN ×2 (08:04→16:15)
[2016-08-21] MEDS: INSULIN ASPART 100 UNITS/ML 3 ML PEN SC SCH ×4 (08:06→21:07)
[2016-08-21] MEDS ORDERED: INSULIN GLARGINE SOLOSTAR 100 UNITS/ML 3 ML PEN SC SCH ×3 (09:00→21:00)
[2016-08-21] MEDS: PROPRANOLOL HCL 10 MG TAB PO SCH ×2 (10:53→21:01)
[2016-08-21] MEDS ORDERED: INSULIN REGULAR 5 UNITS in SYRINGE 4.95 ML IV SCH ×2 (11:30→14:30)
--- NOTE | 2016-08-21 13:01 | Pharmacy Progress Note ---
Glycemic Control Intl Consult Date of Service Aug 21, 2016. Scope Glycemic Pharmacist consulted by Dr Veronica on 08/17/16 for glycemic control and to write orders per [facility] inpatient glycemic control protocol Objective Weight (Kilograms): 70.900 Accuchecks BSG (last 24hrs): Test 08/20/16 16:28 08/20/16 20:25 08/21/16 05:34 08/21/16 07:18 Bedside Glucose 130 mg/dl (70-99) 95 mg/dl (70-99) 228 mg/dl (70-99) Random Glucose 223 mg/dl (70-99) Test 08/21/16 11:17 Bedside Glucose 368 mg/dl (70-99) Laboratory Data (last 24hrs) Test 08/21/16 05:33 08/21/16 05:34 White Blood Count 5.03 K/uL Red Blood Count 4.20 M/uL Hemoglobin 11.7 g/dL Hematocrit 34.4 % Mean Corpuscular Volume 81.9 fL Mean Corpuscular Hemoglobin 27.9 pg Mean Corpuscular Hemoglobin Concent 34.0 g/dl Platelet Count 46 K/uL Neutrophils (%) (Auto) 66.8 % Lymphocytes (%) (Auto) 16.1 % Monocytes (%) (Auto) 12.7 % Eosinophils (%) (Auto) 3.6 % Basophils (%) (Auto) 0.6 % Neutrophils # (Auto) 3.36 K/uL Lymphocytes # (Auto) 0.81 K/uL Monocytes # (Auto) 0.64 K/uL Eosinophils # (Auto) 0.18 K/uL Basophils # (Auto) 0.03 K/uL Anion Gap 6.0 mmol/L BUN/Creatinine Ratio 8.2 Blood Urea Nitrogen 11 mg/dl Creatinine 1.30 mg/dl Potassium Level 4.1 mmol/L Sodium Level 136 mmol/L HbA1c Test 08/18/16 04:14 Hemoglobin A1c 12.2 % (4.5-5.6) H Recent Pertinent Medications Outpatient Anti-diabetic Regimen: * Lantus 38 units SQ q PM * NovoLog 10 units SQ TID with meals * A1c = 8.8% --> 12.2% over past 30 days The patient is currently receiving: * Basal insulin: * Lantus based on BSGs - if BSG is below 100mg/dL - hold Lantus - if BSG is 100-140 mg/dL - give Lantus 20 units - if BSG is above 140mg/dL - give Lantus 25 units * Bolus Insulin: * NovoLog SQ AC/HS - Goal Range: Low 100 mg/dL - High 140 mg/dL - Correction Factor: 15 mg/dL/unit - Carb ratio of 1 unit per 3 grams CHO consumed Risk Factors for Insulin Resistance: * Diet: Assessment & Plan ASSESSMENT: * ADA & AACE recommend a goal blood sugar range 140-180 mg/dl for the majority of critically ill & non-critically ill patients. However, more stringent targets may be selected in individual cases. Will utilize more stringent goal of 100-140mg/dl based on patient age & comorbidities. Additionally, tighter glycemic control is warranted to facilitate wound/infection healing. * BSGs are labile - requiring larger doses than home regimen. However, from historic admissions, the patient usually requires LESS insulin. Will try to adjust basal insulin to q PM dosing (what patient does at home) for ease of discharge transition. * Currently, BSG quite elevated * supplement with IV insulin and continue with aggressive NovoLog parameters - may need to back off once BSGs begin to trend down * A1c with large increase over past 30 days * will continue to take this into consideration (may be more insulin resistant at discharge and require larger doses) PLAN FOR INPATIENT GLYCEMIC CONTROL: * Basal insulin: * begin transition from BID to q PM dosing - Lantus 10 units SQ x1 this AM - Lantus 20 units SQ x1 tonight - Re-assess Lantus tomorrow for further dosing * Bolus Insulin: * NovoLog SQ AC/HS - Add overnight Accu-checks while hyperglycemic - Goal Range: Low 100 mg/dL - High 140 mg/dL - Correction Factor: 15 mg/dL/unit - Carb ratio of 1 unit per 3 grams CHO consumed * IV insulin: * 5 units IV x1 dose today for BSG >300mg/dL RECOMMENDATIONS FOR DISCHARGE: * see progress note from 08/20 * Please note that the plan above was derived based on current level of insulin resistance and hospital stress. These recommendations are appropriate for inpatient admission only. Plan of care upon discharge will need to be reassessed to avoid potential outpatient hypo/hyperglycemia. Thank you.
[2016-08-21] MEDS ORDERED: INSULIN ASPART 100 UNITS/ML 3 ML PEN SC SCH ×2 (14:30)
[2016-08-21 15:28] LABS: BETA-HYDROXYBUTYRATE 0.87 mg/dL (0.2-2.81)
[2016-08-21] MEDS: ONDANSETRON INJ 2 MG/ML 2 ML VIAL IV PRN ×2 (16:15→23:57)
--- NOTE | 2016-08-21 17:14 | Progress Note ---
Medicine Progress Note Date & Time of Visit: Aug 21, 2016 at 17:10. Subjective noted to be hyperglycemic today seen resting in bed, comfortable reports mid abdominal pain, crampy worse with eating denies diarrhea, hematochezia, nausea no other symptoms Objective Last 8 Hrs Date Time Temp Pulse Resp B/P (MAP) Pulse Ox O2 Delivery O2 Flow Rate FiO2 08/21/16 15:36 36.8 62 18 92/52 (65) 96 Room Air 08/21/16 12:16 Room Air 08/21/16 11:29 36.7 64 18 109/66 (80) 97 Physical Exam: General- oriented x 3, not in distress, speaks in sentences with no effort Eyes- anicteric Neck- no JVD Lungs- clear breath sounds bilaterally Heart- regular rhythm; no murmur, normal rate Abdomen- normal bowel sounds, soft, nontender, non distended Extremities- no pretibial edema, no calf tenderness Neuro- alert, oriented x 3; no gross focal deficits Skin- warm & dry Laboratory Results: Last 24 Hours Test 08/20/16 20:25 08/21/16 05:33 08/21/16 05:34 08/21/16 07:18 Bedside Glucose 95 mg/dl 228 mg/dl White Blood Count 5.03 K/uL Red Blood Count 4.20 M/uL Hemoglobin 11.7 g/dL Hematocrit 34.4 % Mean Corpuscular Volume 81.9 fL Mean Corpuscular Hemoglobin 27.9 pg Mean Corpuscular Hemoglobin Concent 34.0 g/dl Platelet Count 46 K/uL Neutrophils (%) (Auto) 66.8 % Lymphocytes (%) (Auto) 16.1 % Monocytes (%) (Auto) 12.7 % Eosinophils (%) (Auto) 3.6 % Basophils (%) (Auto) 0.6 % Neutrophils # (Auto) 3.36 K/uL Lymphocytes # (Auto) 0.81 K/uL Monocytes # (Auto) 0.64 K/uL Eosinophils # (Auto) 0.18 K/uL Basophils # (Auto) 0.03 K/uL RDW Standard Deviation 53.5 fL RDW Coefficient of Variation 17.9 % Immature Granulocyte % (Auto) 0.2 % Immature Granulocyte # (Auto) 0.01 K/uL Platelet Estimate DECREASED Echinocytes 1+ Venous Blood pH 7.48 Sodium Level 136 mmol/L Potassium Level 4.1 mmol/L Chloride Level 98 mmol/L Carbon Dioxide Level 32 mmol/L Anion Gap 6.0 mmol/L Blood Urea Nitrogen 11 mg/dl Creatinine 1.30 mg/dl Est Creatinine Clear Calc Drug Dose 59.1 ml/min Estimated GFR () 67.8 Estimated GFR (Non- 58.5 BUN/Creatinine Ratio 8.2 Random Glucose 223 mg/dl Calcium Level 8.4 mg/dl Phosphorus Level 3.1 mg/dl Test 08/21/16 11:17 08/21/16 14:06 08/21/16 14:27 08/21/16 16:38 Bedside Glucose 368 mg/dl 377 mg/dl 345 mg/dl Random Glucose 436 mg/dl Beta-Hydroxybutyric Acid 0.87 mg/dL Assessment & Plan This is a 61 year old male with a PMH of BETANCOURT cirrhosis, recurrent ascites requiring recurrent paracentesis, multiple complications regarding cirrhosis including encephalopathy, esophageal varices, thrombocytopenia; he has insulin dependent DM2, Hypothyroidism, HLD, chronic pain syndrome presents due weakness and worsening abdominal pain; found to have uncontrolled blood sugars Abdominal Pain - worse with eating - will re-consult GI - continue Protonix BID Thrombocytopenia - Plt decreasing, 40k x 2 days - no signs of active bleeding - monitor Hyperglycemia Mild DKA, Resolved +BSGs > 600, high anion gap, mild ketonuria, elevated b-hydroxybutyric acid -- off Insulin drip on SC insulin Lantus and ISS Pharmacy consulted -- BSG elevated today Lantus being adjusted Acute Kidney Injury crea 1.1 discontinued iv fluids continue diuretics BETANCOURT Cirrhosis has been having trouble paying for Rifaximin was changed by PCP to Flagyl--> discontinued due to GI symptoms Miralax added -- compensated Esophageal Varices no signs of active bleeding monitor Hypothyroidism continue Synthroid DVT ppx SCDs secondary to thrombocytopenia FULL CODE Disposition pending anticipate d/c home when medically stable Current Inpatient Medications: Current Inpatient Medications Medications (Trade) Dose Ordered Sig/Ryan Route Start Time Stop Time Status Last Admin Dose Admin Al Hydrox/Mg Hydrox/Simethicone (Maalox Max Susp) 15 ml Q4H PRN PO 08/17/16 13:00 09/16/16 12:59 Magnesium Hydroxide (Milk Of Magnesia Susp) 30 ml Q6H PRN PO 08/17/16 13:00 09/16/16 12:59 Polyethylene (Miralax Powder Packet) 17 gm DAILY PRN PO 08/17/16 13:00 09/16/16 12:59 Ondansetron HCl (Zofran Inj) 4 mg Q6H PRN IV 08/17/16 13:00 09/16/16 12:59 08/21/16 16:15 4 MG Glucose (Glucose 40% Gel) 15-30 GRAMS 15 GRAMS... UD PRN PO 08/17/16 13:00 09/16/16 12:59 Glucose (Glucose Chew Tab) 4-8 Tablets 4 Tabl... UD PRN PO 08/17/16 13:00 09/16/16 12:59 Dextrose (Dextrose 50% 50ML Syringe) 25-50ML OF 50% DW IV FOR... UD PRN IV 08/17/16 13:00 09/16/16 12:59 Glucagon (Glucagon Inj) 1 mg UD PRN SQ 08/17/16 13:00 09/16/16 12:59 Miscellaneous Information (Consult Glycemic Management Pharmacy) 1 ea UD PRN N/A 08/17/16 13:37 09/16/16 13:36 Escitalopram Oxalate (Lexapro Tab) 10 mg DAILY PO 08/18/16 08:00 09/17/16 08:59 08/21/16 08:01 10 MG Furosemide (Lasix Tab) 40 mg BID17 PO 08/17/16 17:00 09/16/16 16:59 Future hold 08/21/16 08:00 40 MG Hydromorphone HCl (Dilaudid Tab) 4 mg TID PRN PO 08/17/16 13:00 08/31/16 12:59 08/21/16 16:15 4 MG Lactulose (Chronulac Syrup) 20 gm TID PO 08/17/16 14:00 09/16/16 13:59 08/21/16 14:36 20 GM Levetiracetam (Keppra Tab) 500 mg AMHS PO 08/17/16 20:00 09/16/16 20:59 08/21/16 08:00 500 MG Levothyroxine Sodium (Synthroid Tab) 75 mcg DAILYBB PO 08/18/16 06:30 09/17/16 06:59 08/21/16 06:28 75 MCG Ondansetron HCl (Zofran Odt) 4 mg Q6H PRN SL 08/17/16 13:00 09/16/16 12:59 08/17/16 13:46 4 MG Pantoprazole Sodium (Protonix Tab) 40 mg BID PO 08/17/16 20:00 09/16/16 20:59 08/21/16 08:00 40 MG Propranolol HCl (Inderal Tab) 10 mg BID PO 08/17/16 20:00 09/16/16 20:59 08/21/16 10:53 10 MG Spironolactone (Aldactone Tab) 100 mg BID17 PO 08/17/16 17:00 09/16/16 16:59 Future hold 08/21/16 08:00 100 MG Triamcinolone Acetonide (Kenalog 0.1% Cream) 1 appln BID PRN EXT 08/17/16 13:00 09/16/16 12:59 Ferrous Sulfate (Feosol Tab) 325 mg BID PO 08/17/16 20:00 09/16/16 20:59 08/21/16 07:59 325 MG Pyridoxine HCl (Vitamin B-6 Tab) 25 mg HS PO 08/17/16 21:00 09/16/16 20:59 08/20/16 21:24 25 MG Polyethylene (Miralax Powder Packet) 17 gm BID PO 08/17/16 20:00 09/16/16 19:59 08/21/16 07:59 17 GM Insulin Aspart (novoLOG ASPART) SLIDING SCALE ACHS SC 08/18/16 07:30 09/17/16 07:29 08/21/16 12:04 30 UNITS Potassium/ Phosphorus/Sodium (Phospha 250 Neutral 155-852-130 Mg) 1 tab QID PO 08/20/16 17:00 09/19/16 16:59 08/21/16 14:36 1 TAB Promethazine HCl (Phenergan Tab) 25 mg Q6H PRN PO 08/20/16 15:15 09/19/16 15:14 08/20/16 23:11 25 MG Insulin Glargine (Lantus Solostar Pen) 20 units TODAY@2100 SC 08/21/16 21:00 08/21/16 21:01 Insulin Aspart (novoLOG ASPART) SLIDING SCALE TODAY@0200 DC 08/22/16 02:00 08/22/16 02:01
[2016-08-21] MEDS: PYRIDOXINE HCL 50 MG TAB PO SCH (21:01)
[2016-08-22 00:03] VITALS: BP 120/67; PULSE 78; TEMP 36.8; O2SAT 96
[2016-08-22] MEDS ORDERED: INSULIN ASPART 100 UNITS/ML 3 ML PEN SC SCH (02:00)
[2016-08-22 04:00] VITALS: BP 103/67; PULSE 68; TEMP 36.8; O2SAT 96
[2016-08-22] MEDS: LEVOTHYROXINE 75 MCG TAB PO SCH (06:35)
[2016-08-22 07:25] VITALS: BP 103/65; PULSE 64; TEMP 36.8; O2SAT 97
[2016-08-22 08:00] VITALS: O2SAT 97
[2016-08-22 08:12] LABS: MEAN CORPUSCULAR HGB CONC 34.4 g/dl (32-36)
[2016-08-22 08:25] LABS: HEMATOCRIT 39.8 % (42-52); MEAN CELL VOLUME 83.3 fL (80-100); MEAN CORPUSCULAR HEMOGLOBIN 28.7 pg (25-34); RED BLOOD COUNT 4.78 M/uL (4.7-6.1); WHITE BLOOD COUNT 7.18 K/uL (4.8-10.8)
[2016-08-22 08:29] LABS: PLATELET COUNT 59 K/uL (130-400)
[2016-08-22 08:35] LABS: BASO % 0.4 %; BASO ABS # 0.03 K/uL (0-0.2); COMPLETE YES; ECHINOCYTES 1+; EOS % 2.2 %; IG% 0.1 %; LARGE PLATELETS 1+; LYMPH % 12.4 %; LYMPH ABS # 0.89 K/uL (1.2-3.4); MONO % 9.2 %; NEUT % 75.7 %
[2016-08-22 08:37] LABS: BUN/CREATININE RATIO 8.4 (10-20); CALCIUM 8.9 mg/dl (8.5-10.1); CREATININE 1.3 mg/dl (0.60-1.40); POTASSIUM 4.3 mmol/L (3.5-5.1)
[2016-08-22 08:39] LABS: PHOSPHORUS 2.8 mg/dl (2.5-4.9)
--- NOTE | 2016-08-22 08:55 | Progress Note ---
Internal Med Progress Note Date of Service: Aug 22, 2016. Provider Documentation: SUBJECTIVE: Patient does have chronic abdominal pain- no change. No nausea, vomiting, fever, chills. OBJECTIVE: Vital Signs-as noted below Exam: General- oriented x 3, not in distress, speaks in sentences with no effort Eyes- anicteric Neck- no JVD Lungs- clear breath sounds bilaterally Heart- regular rhythm; no murmur, normal rate Abdomen- normal bowel sounds, soft, nontender, mildly distended which is chronic. Extremities- no pretibial edema, no calf tenderness Neuro- alert, oriented x 3; no gross focal deficits Lab data as noted below. ASSESSMENT & PLAN: This is a 61 year old male with a PMH of BETANCOURT cirrhosis, recurrent ascites requiring recurrent paracentesis, multiple complications regarding cirrhosis including encephalopathy, esophageal varices, thrombocytopenia; he has insulin dependent DM2, Hypothyroidism, HLD, chronic pain syndrome presented due generalized weakness and worsening abdominal pain; found to have uncontrolled blood sugars and admitted for hyperglycemia. ASSESSMENT AND PLAN : Hyperglycemia Mild DKA - Resolved Presented with +BSGs > 600, high anion gap, mild ketonuria, elevated b- hydroxybutyric acid -- Off Insulin drip -- Had an episode of hypoglycemia yesterday as lantus dose was increased -- Discussed with Pharmacy about discharge regimen on basis of inpatient blood glucose readings : Will send him on Lantus 25 units BID (at home was on 38 units q HS), Novolog 10 units TID with meals. -- HBA1C- 12.2 -- Counseling about ADA diet and blood glucose monitoring done -- Appreciate pharmacy inputs. Chronic Abdominal Pain - Patient has always had chronic abdominal pain in setting of history of cirrhosis, dependent on PO Dilaudid PRN which he takes as scheduled. - continue Protonix BID Chronic Thrombocytopenia - Plt increasing again and in 50s which is chronic - no signs of active bleeding Acute Kidney Injury- Resolved Presented with creatinine of 1.80 and now 1.30 -Discontinued iv fluids -continue diuretics and tolerating it well. BETANCOURT Cirrhosis- compensated -Has been having trouble paying for Rifaximin was changed by PCP to Flagyl--> discontinued due to GI symptoms -Continue with Lactulose 20 gram TID and Miralex 17 gram BID to maintain 3-5 BMS per GI Esophageal Varices no signs of active bleeding monitor Hypothyroidism continue Synthroid DVT ppx SCDs secondary to thrombocytopenia FULL CODE Disposition Okay to discharge home today Patient hesitant about being discharged home today which has been a pattern noted for most of his admissions in past. Clinically doing well and no clear indication to be in hospital. Had a detailed discussion with him- answered his questions. Okay to discharge home Vital Signs: Date Time Temp Pulse Resp B/P (MAP) Pulse Ox O2 Delivery O2 Flow Rate FiO2 08/22/16 07:25 36.8 64 16 103/65 (78) 97 08/22/16 04:00 Room Air 08/22/16 04:00 36.8 68 18 103/67 (79) 96 Room Air 08/22/16 00:03 36.8 78 20 120/67 (84) 96 Room Air 08/22/16 00:00 Room Air 08/21/16 20:59 71 112/71 (85) 08/21/16 20:00 96 Room Air 08/21/16 19:00 36.8 69 18 112/68 (83) 97 Room Air 08/21/16 17:25 71 113/67 (82) 08/21/16 16:00 96 Room Air 08/21/16 15:36 36.8 62 18 92/52 (65) 96 Room Air 08/21/16 12:16 Room Air 08/21/16 11:29 36.7 64 18 109/66 (80) 97 Lab Results: Results Past 24 Hours Test 08/21/16 11:17 08/21/16 14:06 08/21/16 14:27 08/21/16 16:38 Range/Units Bedside Glucose 368 377 345 70-99 mg/dl Random Glucose 436 70-99 mg/dl Beta-Hydroxybutyric Acid 0.87 0.2-2.81 mg/dL Test 08/21/16 20:22 08/21/16 23:31 08/22/16 00:30 08/22/16 01:10 Range/Units Bedside Glucose 143 55 67 161 70-99 mg/dl Test 08/22/16 02:04 08/22/16 07:36 08/22/16 07:57 Range/Units Bedside Glucose 215 202 70-99 mg/dl White Blood Count 7.18 4.8-10.8 K/uL Red Blood Count 4.78 4.7-6.1 M/uL Hemoglobin 13.7 14.0-18.0 g/dL Hematocrit 39.8 42-52 % Mean Corpuscular Volume 83.3 80-100 fL Mean Corpuscular Hemoglobin 28.7 25-34 pg Mean Corpuscular Hemoglobin Concent 34.4 32-36 g/dl Platelet Count 59 130-400 K/uL Neutrophils (%) (Auto) 75.7 % Lymphocytes (%) (Auto) 12.4 % Monocytes (%) (Auto) 9.2 % Eosinophils (%) (Auto) 2.2 % Basophils (%) (Auto) 0.4 % Neutrophils # (Auto) 5.43 1.4-6.5 K/uL Lymphocytes # (Auto) 0.89 1.2-3.4 K/uL Monocytes # (Auto) 0.66 0.11-0.59 K/uL Eosinophils # (Auto) 0.16 0-0.5 K/uL Basophils # (Auto) 0.03 0-0.2 K/uL RDW Standard Deviation 55.3 36.4-46.3 fL RDW Coefficient of Variation 18.0 11.5-14.5 % Immature Granulocyte % (Auto) 0.1 % Immature Granulocyte # (Auto) 0.01 0.00-0.02 K/uL Large Platelets 1+ Echinocytes 1+ Sodium Level 132 136-145 mmol/L Potassium Level 4.3 3.5-5.1 mmol/L Chloride Level 96 98-107 mmol/L Carbon Dioxide Level 31 21-32 mmol/L Anion Gap 5.0 3-11 mmol/L Blood Urea Nitrogen 11 7-18 mg/dl Creatinine 1.30 0.60-1.40 mg/dl Est Creatinine Clear Calc Drug Dose 59.7 ml/min Estimated GFR () 67.8 Estimated GFR (Non- 58.5 BUN/Creatinine Ratio 8.4 10-20 Random Glucose 232 70-99 mg/dl Calcium Level 8.9 8.5-10.1 mg/dl Phosphorus Level 2.8 2.5-4.9 mg/dl
[2016-08-22] MEDS: PANTOprazole SOD 40 MG TAB PO SCH (08:57)
[2016-08-22] MEDS: PROPRANOLOL HCL 10 MG TAB PO SCH (08:57)
[2016-08-22] MEDS: SPIRONOLACTONE 100 MG TAB PO SCH (08:57)
[2016-08-22] MEDS: LEVETIRACETAM 500 MG TAB PO SCH (08:57)
[2016-08-22] MEDS: ESCITALOPRAM OXALATE 10 MG TAB PO SCH (08:59)
[2016-08-22] MEDS: LACTULOSE SYRUP 20 GM/30 ML UDC PO SCH ×2 (08:59→14:00)
[2016-08-22] MEDS: FUROSEMIDE 40 MG TAB PO SCH (08:59)
[2016-08-22] MEDS: FERROUS SULFATE 325 MG TAB PO SCH (09:00)
[2016-08-22] MEDS ORDERED: INSULIN GLARGINE SOLOSTAR 100 UNITS/ML 3 ML PEN SC SCH (09:00)
[2016-08-22] MEDS: POLYETHYLENE (MIRALAX) 17 GM PACK PO SCH (09:00)
[2016-08-22] MEDS ORDERED: MRLP17 PO (09:03)
[2016-08-22] MEDS ORDERED: INSDGI SC (09:03)
--- NOTE | 2016-08-22 09:05 | Discharge Instructions ---
Discharge Instructions Date of Service Aug 22, 2016. Admission Reason for Admission: Hyperglycemia Discharge Discharge Diagnosis / Problem: 1. Mild Diabetic ketoacidosis Discharge Goals Goal(s): Improve disease control, Prevent Disease Progression Activity Recommendations Activity Limitations: resume your previous activity . Instructions / Follow-Up Instructions / Follow-Up MEDICATION CHANGES: 1. Insulin increased from 38 units q HS to 25 units twice a day 2. Continue with Novolog 10 units with meal - three times a day 3. Recommend blood glucose monitoring, take readings to PCP office during next appointment FOLLOW UP 1. Follow up with Dr Munoz 08/28/16 at 12:45 PM 2. Follow up with GI as per schedule Current Hospital Diet Patient's current hospital diet: Diabetes Type 2 Diet, Low Sodium Diet (2gm Na) Discharge Diet Recommended Diet: AHA Diet (Heart Healthy), Low Sodium Diet (2gm Na), Diabetes Type 2 Diet Pending Studies Studies pending at discharge: no Laboratory Results Hemoglobin A1c Test 08/18/16 04:14 Range/Units Estimated Average Glucose 303 mg/dl Hemoglobin A1c 12.2 H 4.5-5.6 % Medical Emergencies . Who to Call and When: Medical Emergencies: If at any time you feel your situation is an emergency, please call 911 immediately. . Non-Emergent Contact Non-Emergency issues call your: Primary Care Provider . . "Provider Documentation" section prepared by Ivy Deras. . VTE Core Measure Inpt VTE Proph given/why not?: SCD's, Contraindicated (re: thrombocytopenia)
--- NOTE | 2016-08-22 09:08 | Discharge Summary ---
Discharge Summary Date of Service Aug 22, 2016. Discharge Summary Admission Date: Aug 17, 2016 at 14:40 Discharge Date: Aug 22, 2016 Discharge Disposition: Home Principal Diagnosis: 1. Mild DKA 2. JODY on CKD III Secondary Diagnoses/Problems: 1. Hepatic cirrhosis 2. Hx of esophageal varices/Hepatic encephalopathy 3. Hypothyroidism 4. Depression Procedures: CT abdomen/pelvis IV fluids Blood glucose monitoring Consultations: Pharmacy: re glycemic management GI Pending Studies/Follow-Up: Instructions / Follow-Up Instructions / Follow-Up MEDICATION CHANGES: 1. Insulin increased from 38 units q HS to 25 units twice a day 2. Continue with Novolog 10 units with meal - three times a day 3. Recommend blood glucose monitoring, take readings to PCP office during next appointment FOLLOW UP 1. Follow up with Dr Munoz 08/28/16 at 12:45 PM 2. Follow up with GI as per schedule Medication Reconciliation New Medications: Polyethylene (Miralax) 17 Gm Pow 17 GM PO BID for 20 Days Changed Medications: Insulin Glargine (Lantus) 100 Unit/Ml Inj 25 UNITS SC BID for 30 Days, VIAL (Changed from: 38 UNITS; HS) Continued Medications: Escitalopram (Lexapro) 10 Mg Tab 10 MG PO DAILY, TAB Ferrous Sulfate (Kp Ferrous Sulfate) 325 Mg Tab 325 MG PO BID, TAB Furosemide (Lasix) 40 Mg Tab 40 MG PO BID17, TAB Hydromorphone Hcl (Dilaudid) 4 Mg Tab 4 MG PO TID PRN for Pain, TAB Insulin Aspart (Novolog) 100 Units/Ml Inj 10 UNITS SQ TIDM PLUS SLIDING SCALE Lactulose (Chronulac) 10 Gm/15 Ml Syrp 20 GM PO TID Levetiractam (Levetiracetam) 500 Mg Tab 500 MG PO AMHS Levothyroxine Sodium (Synthroid) 75 Mcg Tab 75 MCG PO DAILY, TAB Magnesium Oxide (Mag-Ox) 400 Mg Tab 400 MG PO BID Melatonin (Kp Melatonin) 3 Mg Tab 1 TAB PO HS for 30 Days, #30 TAB Ondasetron Odt (Zofran Odt) 4 Mg Tab 4 MG SL Q6H PRN for Nausea or Vomiting, TAB Pantoprazole (Protonix) 40 Mg Tab 40 MG PO BID, TAB Propranolol (Inderal) 10 Mg Tab 10 MG PO BID, TAB Pyridoxine Hcl (Vitamin B-6) 25 Mg Tab 25 MG PO HS Spironolactone (Aldactone) 100 Mg Tab 1 TAB PO BID for 30 Days, #60 TAB 11 Refills Triamcinolone Acet (Aristocort 0.1%) 90 Appln/30 Gm Cr 1 APPL EXT BID PRN for dermatitis Discontinued Medications: Metronidazole (Flagyl) 500 Mg Tab 500 MG PO DAILY, TAB Admission Information HPI (per Admitting provider): This is a 61 year old male with a PMH of BETANCOURT cirrhosis, recurrent ascites requiring recurrent paracentesis, multiple complications regarding cirrhosis including encephalopathy, esophageal varices, thrombocytopenia; he has insulin dependent DM2, Hypothyroidism, HLD, chronic pain syndrome presents due weakness and worsening abdominal pain. Presents to the ER, had CT abdominal pain done, showing known cirrhosis, moderate ascites and some known varices as well. On exam, the abdomen looks much improved, no significant swelling/distention noted. States that for the past week he has been on Aldactone twice daily and Lasix twice daily - this was recently switched back to his once a day dosing by PCP. States he could not afford Rifaximin and his PCP told him to take Flagyl in place of it. Has been following with GI in [place] for possible TIPS procedure. Will have an echo and Liver MRI done as outpatient on Sunday, August 21. Also on admission, was noted to have BSGs > 600, mild serum ketones and ketonuria with an elevated anion gap. States he has been taking his medications as prescribed. Denies other symptoms. Physical Exam (per Admitting): General Appearance: no apparent distress Head: normocephalic, atraumatic Eyes: normal inspection ENT: hearing grossly normal Respiratory/Chest: chest non-tender, lungs clear, normal breath sounds, no respiratory distress, no accessory muscle use Cardiovascular: regular rate, rhythm, no edema, no murmur Abdomen/GI: + tenderness (diffuse abdominal tenderness, no significant distention), + hernia Extremities/Musculoskelatal: normal inspection, no calf tenderness, normal capillary refill, no pedal edema, normal range of motion Neurologic/Psych: no motor/sensory deficits, alert, normal mood/affect Skin: normal color Hospital Course This is a 61 year old male with a PMH of BETANCOURT cirrhosis, recurrent ascites requiring recurrent paracentesis, multiple complications regarding cirrhosis including encephalopathy, esophageal varices, thrombocytopenia; he has insulin dependent DM2, Hypothyroidism, HLD, chronic pain syndrome presented due generalized weakness and worsening abdominal pain; found to have uncontrolled blood sugars and admitted for hyperglycemia. ASSESSMENT AND PLAN : Hyperglycemia Mild DKA - Resolved Presented with +BSGs > 600, high anion gap, mild ketonuria, elevated b- hydroxybutyric acid -- Off Insulin drip -- Had an episode of hypoglycemia yesterday as lantus dose was increased -- Discussed with Pharmacy about discharge regimen on basis of inpatient blood glucose readings : Will send him on Lantus 25 units BID (at home was on 38 units q HS), Novolog 10 units TID with meals. -- HBA1C- 12.2 -- Counseling about ADA diet and blood glucose monitoring done -- Appreciate pharmacy inputs. Acute Kidney Injury- Resolved Presented with creatinine of 1.80 and now 1.30 -Discontinued iv fluids -continue diuretics and tolerating it well. Chronic Abdominal Pain - Patient has always had chronic abdominal pain in setting of history of cirrhosis, dependent on PO Dilaudid PRN which he takes as scheduled. - continue Protonix BID Chronic Thrombocytopenia - Plt increasing again and in 50s which is chronic - no signs of active bleeding BETANCOURT Cirrhosis- compensated -Has been having trouble paying for Rifaximin was changed by PCP to Flagyl--> discontinued due to GI symptoms -Continue with Lactulose 20 gram TID and Miralex 17 gram BID to maintain 3-5 BMS per GI Esophageal Varices no signs of active bleeding monitor Hypothyroidism continue Synthroid DVT ppx SCDs secondary to thrombocytopenia FULL CODE Disposition Okay to discharge home today Patient hesitant about being discharged home today which has been a pattern noted for most of his admissions in past. Clinically doing well and no clear indication to be in hospital. Had a detailed discussion with him- answered his questions. Okay to discharge home Total time spent on discharge = 32 MINUTES This includes examination of the patient, discharge planning, medication reconciliation, and communication with other providers. Discharge Instructions Discharge Discharge Diagnosis / Problem: 1. Mild Diabetic ketoacidosis Discharge Goals Goal(s): Improve disease control, Prevent Disease Progression Activity Recommendations Activity Limitations: resume your previous activity . Instructions / Follow-Up Instructions / Follow-Up MEDICATION CHANGES: 1. Insulin increased from 38 units q HS to 25 units twice a day 2. Continue with Novolog 10 units with meal - three times a day 3. Recommend blood glucose monitoring, take readings to PCP office during next appointment FOLLOW UP 1. Follow up with Dr Munoz 08/28/16 at 12:45 PM 2. Follow up with GI as per schedule Current Hospital Diet Patient's current hospital diet: Diabetes Type 2 Diet, Low Sodium Diet (2gm Na) Discharge Diet Recommended Diet: AHA Diet (Heart Healthy), Low Sodium Diet (2gm Na), Diabetes Type 2 Diet Pending Studies Studies pending at discharge: no Laboratory Results Hemoglobin A1c Test 08/18/16 04:14 Range/Units Estimated Average Glucose 303 mg/dl Hemoglobin A1c 12.2 H 4.5-5.6 % Medical Emergencies . Who to Call and When: Medical Emergencies: If at any time you feel your situation is an emergency, please call 911 immediately. . Non-Emergent Contact Non-Emergency issues call your: Primary Care Provider . . "Provider Documentation" section prepared by Ivy Deras. . VTE Core Measure Inpt VTE Proph given/why not?: SCD's, Contraindicated (re: thrombocytopenia)
[2016-08-22] MEDS: INSULIN ASPART 100 UNITS/ML 3 ML PEN SC SCH ×2 (09:22→14:02)
[2016-08-22] MEDS: HYDROmorphone HCL 2 MG TAB PO PRN (10:56)
[2016-08-22] MEDS: ONDANSETRON 4MG OD TAB SL PRN (10:56)
[2016-08-22 12:00] VITALS: O2SAT 97
--- NOTE | 2016-08-22 12:42 | Pharmacy Progress Note ---
Glycemic Control Progress Note Date of Service Aug 22, 2016. Scope Glycemic Pharmacist consulted for glycemic control to write orders per [facility] inpatient glycemic control protocol. Objective Accuchecks BSG (last 24hrs): Test 08/21/16 14:06 08/21/16 14:27 08/21/16 16:38 08/21/16 20:22 Bedside Glucose 377 mg/dl (70-99) 345 mg/dl (70-99) 143 mg/dl (70-99) Random Glucose 436 mg/dl (70-99) Test 08/21/16 23:31 08/22/16 00:02 08/22/16 00:30 08/22/16 01:10 Bedside Glucose 55 mg/dl (70-99) 61 mg/dl (70-99) 67 mg/dl (70-99) 161 mg/dl (70-99) Test 08/22/16 02:04 08/22/16 07:36 08/22/16 07:57 08/22/16 11:20 Bedside Glucose 215 mg/dl (70-99) 202 mg/dl (70-99) 292 mg/dl (70-99) Random Glucose 232 mg/dl (70-99) HbA1c: Test 08/18/16 04:14 Hemoglobin A1c 12.2 % (4.5-5.6) H Recent Pertinent Medications Outpatient Anti-diabetic Regimen: * Lantus 38 units SQ q PM * NovoLog 10 units SQ TID with meals * A1c = 8.8% --> 12.2% over past 30 days The patient is currently receiving: * Basal insulin: * Lantus 10 units with breakfast, 10 units with lunch, 20 units at bedtime on (40 units total) * Lantus 25 units with breakfast, none in the afternoon on 08/20 (25 units total ) * Bolus Insulin: * NovoLog SQ AC/HS - Goal Range: Low 100 mg/dL - High 140 mg/dL - Correction Factor: 15 mg/dL/unit - Carb ratio of 1 unit per 3 grams CHO consumed Risk Factors for Insulin Resistance: * Diet: Assessment & Plan ASSESSMENT: 08/21/16 * ADA & AACE recommend a goal blood sugar range 140-180 mg/dl for the majority of critically ill & non-critically ill patients. However, more stringent targets may be selected in individual cases. Will utilize more stringent goal of 100-140mg/dl based on patient age & comorbidities. Additionally, tighter glycemic control is warranted to facilitate wound/infection healing. * BSGs are labile - requiring larger doses than home regimen. However, from historic admissions, the patient usually requires LESS insulin. Will try to adjust basal insulin to q PM dosing (what patient does at home) for ease of discharge transition. * Currently, BSG quite elevated * supplement with IV insulin and continue with aggressive NovoLog parameters - may need to back off once BSGs begin to trend down * A1c with large increase over past 30 days * will continue to take this into consideration (may be more insulin resistant at discharge and require larger doses) 08/22/16 * Transition to qPM Lantus dosing was not successful and the patient was hyperglycemic throughout the day yesterday and this morning. * return to BID Lantus dosing as per previous days (08/19) * Required large NovoLog doses to help combat hyperglycemia throughout the day on 08/21 in addition to IV insulin boluses * Continue with tighter NovoLog parameters (BSG continues to be above 200mg/dL) * CDE met with patient - he admits to both hyper- and hypo- glycemia * likely this is due to a mismatch in basal and bolus doses as well as daily Lantus dosing - encouraged close follow up with outpatient provider as well as BID Lantus (requiring much higher doses at this time) PLAN FOR INPATIENT GLYCEMIC CONTROL: * Basal insulin: * Return to BID Lantus dosing based on BSG - if BSG is below 100mg/dL - give Lantus 10 units - if BSG is 100-140mg/dL - give Lantus 20 units - if BSG is above 140mg/dL - give Lantus 25 units * Bolus Insulin: * NovoLog SQ AC/HS - Add overnight Accu-checks - Goal Range: Low 100 mg/dL - High 140 mg/dL - Correction Factor: 15 mg/dL/unit - Carb ratio of 1 unit per 3 grams CHO consumed RECOMMENDATIONS FOR DISCHARGE: * Recommend change to BID Lantus dosing since patient with labile BSG and deteriorating glycemic control as evidence by A1c change in past 30 days. * Recommend close follow up with outpatient provider for further titration of insulin doses * Please note that the plan above was derived based on current level of insulin resistance and hospital stress. These recommendations are appropriate for inpatient admission only. Plan of care upon discharge will need to be reassessed to avoid potential outpatient hypo/hyperglycemia. Thank you.
[2016-08-22 15:00] VITALS: Ht 188 cm; Wt 71.6 kg
[2016-08-22 15:18] VITALS: BP 103/65; PULSE 64; TEMP 36.8; O2SAT 97
[2016-08-23] MEDS ORDERED: INSULIN ASPART 100 UNITS/ML 3 ML PEN SC SCH (02:00)
[2016-08-29] MEDS ORDERED: POLY335019 PO (12:27)
[2016-08-29] MEDS ORDERED: INSDGI SC (12:27)
[2016-10-28] MEDS ORDERED: XFX550 PO (14:18)
[2016-11-06] MEDS ORDERED: CLIN300C2 PO (14:29)
[2016-11-06] MEDS ORDERED: LCTX PO (14:29)
== END 2016-08-22 16:00 | disposition home health service (06) | DRG 638 ==
LOC: EDBD 09:16 → C.EDB 09:17 → ENRESERV 13:16 → C.4E 14:40 → CANRESERV 15:01 → ENRESERV 15:01 → C.MED 17:05
PROVIDERS: ADMIT Family Medicine; ATTEND Internal Medicine
DX: E13.10 Other specified diabetes mellitus with ketoacidosis without coma (principal); I85.10 Secondary esophageal varices without bleeding; K76.6 Portal hypertension; N17.9 Acute kidney failure, unspecified; E87.1 Hypo-osmolality and hyponatremia; K74.69 Other cirrhosis of liver; D69.8 Other specified hemorrhagic conditions; K76.0 Fatty (change of) liver, not elsewhere classified; E11.9 Type 2 diabetes mellitus without complications; F41.8 Other specified anxiety disorders; E78.5 Hyperlipidemia, unspecified; E03.9 Hypothyroidism, unspecified; G40.909 Epilepsy, unspecified, not intractable, without status epilepticus; G89.4 Chronic pain syndrome; N18.3 Chronic kidney disease, stage 3 (moderate); Z79.4 Long term (current) use of insulin; Z98.1 Arthrodesis status; Z95.828 Presence of other vascular implants and grafts; Z88.0 Allergy status to penicillin; Z86.711 Personal history of pulmonary embolism

== ENCOUNTER → 2016-09-05 | Day surgery (SDC) | payer OTHER ==
[2016-08-29 12:31] VITALS: BMI 21.0
[~2016-09-05] VITALS: Ht 182.9 cm; Wt 71.4 kg
[~2016-09-05] MED LIST changes: +BND25 PO; +CEPH500C2 PO; +CLIN300C2 PO; +ESCI1TAB10 PO; -FURO-85 PO; +FURO40TA3 PO; +LCTX PO; +LIDOCAINE HCL 2% 2 ML VIAL (20MG/ML) ONE; +MELA1TAB4 PO; +MELA1TAB5 PO; +ONDANSETRON INJ 2 MG/ML 2 ML VIAL IV PRN; +POLY335019 PO; +PROPOFOL IV EMULSION 10 MG/ML 20 ML VIAL IV ONE; +SULF800T23 PO; +XFX550 PO
[2016-09-05 08:33] VITALS: Ht 182.9 cm; Wt 71.4 kg
--- NOTE | 2016-09-05 09:13 | Endo History and Physical ---
History & Physical Date of Service: Sep 05, 2016. Chief Complaint: Varices Referring Physician: Dr. Munoz History of Present Illness The patient presents today for a screening upper endoscopy. He has history of cirrhosis related to fatty infiltration of liver and is to have upper endoscopy to screen for esophageal varices. He denies having any difficulty swallowing or pain with swallowing. Past Medical History Diabetes, Arthritis, Fractures, Thrombophlebitis, Liver Disease Past Surgical History Hx Cardiac Surgery: No Hx Internal Defibrillator: No Hx Pacemaker: No Hx Abdominal Surgery: No Hx of Implantable Prosthesis: No Hx Post-Op Nausea and Vomiting: No Hx Cancer Surgery: No Hx Thoracic Surgery: No Hx Orthopedic: Yes (LOWER BACK SURGERY X3, RT KNEE SURGERY, CERVICAL SURGERY S/ P TRAUMA) Hx Urinary Tract Surgery: No Family History Colon CA Social History Smoking Status: Never Smoker Hx Substance Use: No Hx Alcohol Use: No Allergies Coded Allergies: Acetaminophen (Verified Allergy, Severe, ESLD (BETANCOURT). on Liver transplant list. Cannot have APAP., 08/29/16) Morphine (Verified Allergy, Severe, RED HIVE WENT UP ARM FROM IV SITE, ) NSAIDs (Verified Allergy, Severe, DUE TO LIVER DISEAS, 08/29/16) Penicillins (Verified Allergy, Severe, JOINT SWELLING AND FEVER, 08/29/16) Fentanyl (Verified Allergy, Intermediate, rash, 08/29/16) Levofloxacin (Verified Allergy, Intermediate, RASH, 08/29/16) pt developed erythema at site of IV injection with itching Vancomycin (Verified Allergy, Mild, HIVES, 08/29/16) HIVES Tramadol (Verified Allergy, Unknown, NOT TO TAKE WITH KEPPRA DUE TO SEIZURE RISK, 08/29/16) Current Medications Reported Home Medications Medications Dose Route/Sig Max Daily Dose Days Date Category Dose Instructions Miralax (Polyethylene Glycol 3350) 1 Pow Pow 17 Gm PO BID 08/29/16 Reported Lantus (Insulin Glargine) 100 Unit/Ml Inj 25 Units SC BID 08/29/16 Reported Lasix (Furosemide) 40 Mg Tab 40 Mg PO BID 08/17/16 Reported Dilaudid (Hydromorphone Hcl) 4 Mg Tab 4 Mg PO TID PRN 07/01/16 Reported Novolog (Insulin Aspart) 100 Units/Ml Inj 10 Units SQ TIDM 05/15/16 Reported PLUS SLIDING SCALE Kp Ferrous Sulfate (Ferrous Sulfate) 325 Mg Tab 325 Mg PO BID 04/27/16 Reported Chronulac (Lactulose) 10 Gm/15 Ml Syrp 20 Gm PO TID 03/27/16 Reported Aristocort 0.1% (Triamcinolone Acet) 90 Appln/30 Gm Cr 1 Appl EXT BID PRN 03/27/16 Reported Levetiracetam (Levetiractam) 500 Mg Tab 500 Mg PO BID 03/13/16 Reported Aldactone (Spironolactone) 100 Mg Tab 1 Tab PO BID 12/10/15 Reported Inderal (Propranolol HCl) 10 Mg Tab 10 Mg PO BID 06/04/15 Reported Vitamin B-6 (Pyridoxine Hcl) 25 Mg Tab 25 Mg PO HS 06/04/15 Reported Synthroid (Levothyroxine Sodium) 75 Mcg Tab 75 Mcg PO QAM 05/07/15 Reported Zofran Odt (Ondansetron HCl) 4 Mg Tab 4 Mg SL Q6H PRN 05/07/15 Reported Lexapro (Escitalopram Oxalate) 10 Mg Tab 10 Mg PO QAM 10/30/14 Reported Protonix (Pantoprazole) 40 Mg Tab 40 Mg PO BID 08/04/14 Reported Mag-Ox (Magnesium Oxide) 400 Mg Tab 400 Mg PO BID 09/29/11 Reported Vital Signs Weight (Kilograms): 71.36 Height (Feet): 6 Height (Inches): 0 Date Time Temp Pulse Resp B/P (MAP) Pulse Ox O2 Delivery O2 Flow Rate FiO2 09/05/16 08:40 36.6 78 16 116/79 (91) 98 Room Air Physical Exam General Appearance: no apparent distress Respiratory/Chest: Auscultation: deminished air movement Cardiovascular: Heart Auscultation: RRR Abdomen: Inspection & Palpation: soft, pertinent finding (fluid wave noted consistent history of ascites) Assessment and Plan Upper endoscopy for evaluation of esophageal varices. We discussed the risks and benefits to include bleeding, infection, perforation, discomfort and bacterial peritonitis
--- NOTE | 2016-09-05 09:34 | Discharge Instructions ---
Endoscopy Patient Instructions Date / Procedure(s) Performed Sep 05, 2016. EGD Allergy Information Coded Allergies: Acetaminophen (Verified Allergy, Severe, ESLD (BETANCOURT). on Liver transplant list. Cannot have APAP., 08/29/16) Morphine (Verified Allergy, Severe, RED HIVE WENT UP ARM FROM IV SITE, ) NSAIDs (Verified Allergy, Severe, DUE TO LIVER DISEAS, 08/29/16) Penicillins (Verified Allergy, Severe, JOINT SWELLING AND FEVER, 08/29/16) Fentanyl (Verified Allergy, Intermediate, rash, 08/29/16) Levofloxacin (Verified Allergy, Intermediate, RASH, 08/29/16) pt developed erythema at site of IV injection with itching Vancomycin (Verified Allergy, Mild, HIVES, 08/29/16) HIVES Tramadol (Verified Allergy, Unknown, NOT TO TAKE WITH KEPPRA DUE TO SEIZURE RISK, 08/29/16) Discharge Date / Findings Sep 05, 2016. Esophageal varices Gastric varices Portal Gastropathy Medication Instructions Reported Home Medications Medications Dose Route/Sig Max Daily Dose Days Date Category Dose Instructions Miralax (Polyethylene Glycol 3350) 1 Pow Pow 17 Gm PO BID 08/29/16 Reported Lantus (Insulin Glargine) 100 Unit/Ml Inj 25 Units SC BID 08/29/16 Reported Lasix (Furosemide) 40 Mg Tab 40 Mg PO BID 08/17/16 Reported Dilaudid (Hydromorphone Hcl) 4 Mg Tab 4 Mg PO TID PRN 07/01/16 Reported Novolog (Insulin Aspart) 100 Units/Ml Inj 10 Units SQ TIDM 05/15/16 Reported PLUS SLIDING SCALE Kp Ferrous Sulfate (Ferrous Sulfate) 325 Mg Tab 325 Mg PO BID 04/27/16 Reported Chronulac (Lactulose) 10 Gm/15 Ml Syrp 20 Gm PO TID 03/27/16 Reported Aristocort 0.1% (Triamcinolone Acet) 90 Appln/30 Gm Cr 1 Appl EXT BID PRN 03/27/16 Reported Levetiracetam (Levetiractam) 500 Mg Tab 500 Mg PO BID 03/13/16 Reported Aldactone (Spironolactone) 100 Mg Tab 1 Tab PO BID 12/10/15 Reported Inderal (Propranolol HCl) 10 Mg Tab 10 Mg PO BID 06/04/15 Reported Vitamin B-6 (Pyridoxine Hcl) 25 Mg Tab 25 Mg PO HS 06/04/15 Reported Synthroid (Levothyroxine Sodium) 75 Mcg Tab 75 Mcg PO QAM 05/07/15 Reported Zofran Odt (Ondansetron HCl) 4 Mg Tab 4 Mg SL Q6H PRN 05/07/15 Reported Lexapro (Escitalopram Oxalate) 10 Mg Tab 10 Mg PO QAM 10/30/14 Reported Protonix (Pantoprazole) 40 Mg Tab 40 Mg PO BID 08/04/14 Reported Mag-Ox (Magnesium Oxide) 400 Mg Tab 400 Mg PO BID 09/29/11 Reported Provider Instructions Activity Restrictions - No exercising or heavy lifting for 24 hours. - Do not drink alcohol the day of the procedure. - Do not drive a car or operate machinery until the day after the procedure. - Do not make any important decisions or sign important papers in 24 hours after the procedure. Following Day: - Return to full activity which may include returning to work/school. Diet Start your diet with liquids and light foods (jello, soup, juice, toast). Then eat your usual diet if not nauseated. Treatment For Common After Affects For mild abdominal pain, bloating, or excessive gas: - Rest - Eat lightly - Lie on right side Follow-Up Information Follow-up with Dr. Munoz as scheduled Repeat upper endoscopy in 6 months Clinic follow-up in 4 to 6 months. Anesthesia Information What You Should Know You have had a procedure that required some medicine to reduce anxiety and discomfort. This treatment is called moderate sedation. After receiving the treatment, you may be sleepy, but you will be able to breathe on your own. The effects of the treatment may last for several hours. Follow these instructions along with Activity/Diet recommendations noted above: * Do NOT do anything where dizziness or clumsiness would be dangerous. * Rest quietly at home today, then you can be up and about tomorrow. * Have a responsible person stay with you the rest of today. * You may have had an I.V. today. If so, you may take the dressing off later today. Recommendations Call your doctor if: * Trouble breathing * Continuous vomiting for more than 24 hours * Temperature above 101 degrees * Severe abdominal pain or bloating * Pain not relieved by pain medicine ordered * There is increased drainage or redness from any incision * A large amount of rectal bleeding greater than 2-3 tablespoons. (If you had a polyp/s removed or have hemorrhoids, a small amount of blood - from the rectum is to be expected.) * You have any unanswered questions or concerns. IN THE EVENT OF A SERIOUS EMERGENCY, GO TO THE NEAREST EMERGENCY ROOM Your discharge instructions were prepared by provider Santino Culver. Patient Instructions Signature Page Jeremi Broderick Patient (or Guardian) Signature/Date: I have read and understand the instructions given to me by my caregivers. Caregiver/RN/Doctor Signature/Date: The above-named patient and/or guardian has received patient instructions on this date. + Original Patient Signature Page (only) stays with chart. Please make copy for patient.
--- NOTE | 2016-09-05 09:38 | GI REPORT ---
Procedure Date: 09/05/2016 9:06 AM Procedure: Upper GI endoscopy Indications: Follow-up of esophageal varices Medicines: Monitored Anesthesia Care Complications: No immediate complications. Estimated blood loss: Minimal. Estimated Blood Loss: Estimated blood loss was minimal. Procedure: Pre-Anesthesia Assessment: - Prior to the procedure, a History and Physical was performed, and patient medications, allergies and sensitivities were reviewed. The patient's tolerance of previous anesthesia was reviewed. - The risks and benefits of the procedure and the sedation options and risks were discussed with the patient. All questions were answered and informed consent was obtained. - Patient identification and proposed procedure were verified prior to the procedure by the physician, the nurse and the telephone station installer. The procedure was verified in the procedure room. - Pre-procedure physical examination revealed no contraindications to sedation. - ASA Grade Assessment: III - A patient with severe systemic disease. - After reviewing the risks and benefits, the patient was deemed in satisfactory condition to undergo the procedure. - The anesthesia plan was to use monitored anesthesia care (MAC). - Immediately prior to administration of medications, the patient was re-assessed for adequacy to receive sedatives. - The heart rate, respiratory rate, oxygen saturations, blood pressure, adequacy of pulmonary ventilation, and response to care were monitored throughout the procedure. - The physical status of the patient was re-assessed after the procedure. After obtaining informed consent, the endoscope was passed under direct vision. Throughout the procedure, the patient's blood pressure, pulse, and oxygen saturations were monitored continuously. The scope was introduced through the mouth, and advanced to the third part of duodenum. The upper GI endoscopy was accomplished without difficulty. The patient tolerated the procedure well. Findings: Four columns of non-bleeding grade III varices were found in the middle third of the esophagus and in the lower third of the esophagus, 25 to 39 cm from the incisors. They were 5 mm in largest diameter. No stigmata of recent bleeding were evident and no red darryn signs were present. Stigmata of prior treatment were evident. A varix was found in the cardia. It had no stigmata of recent bleeding. It was 7 mm in diameter. Moderate portal hypertensive gastropathy was found in the entire examined stomach. The examined duodenum was normal. Impression: - Non-bleeding grade III esophageal varices. - Gastric varices. - Portal hypertensive gastropathy. - Normal examined duodenum. - No specimens collected. Recommendation: - Discharge patient to home (ambulatory). - Advance diet as tolerated today. - Repeat the upper endoscopy in 6 months for surveillance. Santino Culver D.O. Santino Culver, 09/05/2016 9:37:53 AM This report has been signed electronically. Note Initiated On: 09/05/2016 9:06 AM I attest to the content of the Intraoperative Record and orders documented therein, exceptions below
--- NOTE | 2016-09-05 09:54 | Anesthesiology Progress Note ---
Anesthesia Post Op Note Date & Time Sep 05, 2016 at 09:53 Vital Signs Pain Intensity: 6 Vital Signs Past 12 Hours Date Time Temp Pulse Resp B/P (MAP) Pulse Ox O2 Delivery O2 Flow Rate FiO2 09/05/16 08:40 36.6 78 16 116/79 (91) 98 Room Air Notes Mental Status: alert / awake / arousable, participated in evaluation Pt Amnestic to Procedure: Yes Nausea / Vomiting: adequately controlled Pain: adequately controlled Airway Patency, RR, SpO2: stable & adequate BP & HR: stable & adequate Hydration State: stable & adequate Anesthetic Complications: no major complications apparent
[2016-09-05 09:56] VITALS: BP 122/84; PULSE 66; O2SAT 96
== END | disposition home or self-care (01) ==
LOC: C.GI 08:14
PROVIDERS: ATTEND Internal Medicine Gastroenterology
DX: I85.00 Esophageal varices without bleeding (principal); K31.89 Other diseases of stomach and duodenum; E11.9 Type 2 diabetes mellitus without complications; M19.90 Unspecified osteoarthritis, unspecified site; K76.9 Liver disease, unspecified; Z79.4 Long term (current) use of insulin; Z86.72 Personal history of thrombophlebitis; Z80.0 Family history of malignant neoplasm of digestive organs

== ENCOUNTER 2016-09-18 08:52 | Emergency (ER) | payer OTHER ==
[~2016-09-18] VITALS: Ht 182.9 cm; Wt 78.0 kg
[~2016-09-18 08:52] MED LIST changes: -BND25 PO; -CEPH500C2 PO; -CLIN300C2 PO; -ESCI1TAB10 PO; -LCTX PO; -LIDOCAINE HCL 2% 2 ML VIAL (20MG/ML) ONE; -MELA1TAB4 PO; -MELA1TAB5 PO; -ONDANSETRON INJ 2 MG/ML 2 ML VIAL IV PRN; -PROPOFOL IV EMULSION 10 MG/ML 20 ML VIAL IV ONE; -RIFA550T2 PO; -SULF800T23 PO; -XFX550 PO
[2016-09-18 08:55] VITALS: TEMP 36.9; Ht 182.9 cm; Wt 78.0 kg
[2016-09-18] MEDS ORDERED: ONDANSETRON INJ 2 MG/ML 2 ML VIAL IV STA (09:48)
--- NOTE | 2016-09-18 09:56 | EMERGENCY ROOM VISIT NOTE ---
History Report prepared by Alla: Nubia Singh Under the Supervision of: Dr. Adrian Miner D.O. First contact with patient: 09:16 Chief Complaint: TESTICULAR PAIN Stated Complaint: SWELLING/SCROTUM Nursing Triage Summary: Pt. arrived to exam room by BLS. Pt. had paracentesis on Sunday for ascites related to cirrhosis. Developed scrotal swelling on Sunday which worsened overnight. Pt. complains of significant scrotal swelling with severe pain. History of Present Illness The patient is a 61 year old male who presents to the Emergency Room with complaints of worsening scrotal pain and swelling for the past 1 day. He rates his discomfort as a 7/10. He has a history of cirrhosis and underwent a paracentesis procedure last Sunday, 4 days ago, here at [facility]. The patient states his abdomen feels "tight" but he has no pain. Approximately 5 Liters of fluid were removed during the procedure. He also complains of some increased shortness of breath with exertion, which he states is his baseline. 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 A total of 10 systems reviewed and were otherwise negative. 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 Surgical Problems: (1) H/O esophagogastroduodenoscopy (2) H/O knee surgery (3) S/P cervical spinal fusion (4) S/P IVC filter (5) S/P lumbar fusion (6) S/P T&A (status post tonsillectomy and adenoidectomy) Family History FH: CAD (coronary artery disease) FATHER FH: breast cancer MOTHER Social History Smoking Status: Never Smoker Alcohol Use: none Drug Use: none Marital Status: single Housing Status: lives with roommate Occupation Status: retired Current/Historical Medications Scheduled Cephalexin Monohydrate (Keflex), 500 MG PO QID Escitalopram (Lexapro), 10 MG PO QAM Ferrous Sulfate (Kp Ferrous Sulfate), 325 MG PO BID Furosemide (Lasix), 40 MG PO BID Insulin Aspart (Novolog), 14 UNITS SQ TIDM Insulin Glargine (Lantus), 25 UNITS SC BID Lactulose (Chronulac), 20 GM PO TID Levetiractam (Levetiracetam), 500 MG PO BID Levothyroxine Sodium (Synthroid), 75 MCG PO QAM Magnesium Oxide (Mag-Ox), 400 MG PO BID Melatonin (Melatonin), 2 MG PO HS Pantoprazole (Protonix), 40 MG PO BID Polyethylene Glycol 3350 (Miralax), 17 GM PO BID Propranolol (Inderal), 10 MG PO BID Pyridoxine Hcl (Vitamin B-6), 25 MG PO HS Rifaximin (Xifaxan), 550 MG PO BID Spironolactone (Aldactone), 100 MG PO BID Sulfa/Trimethoprim (Bactrim Ds 800MG/160MG), 1 TAB PO BID Scheduled PRN Diphenhydramine Hcl (Benadryl), 25 MG PO Q4H PRN for ALLERGIC REACTION Hydromorphone Hcl (Dilaudid), 4 MG PO TID PRN for Pain Ondasetron Odt (Zofran Odt), 4 MG SL Q6H PRN for Nausea or Vomiting Triamcinolone Acet (Aristocort 0.1%), 1 APPL EXT BID PRN for dermatitis Allergies Coded Allergies: Acetaminophen (Verified Allergy, Severe, ESLD (BETANCOURT). on Liver transplant list. Cannot have APAP., 09/15/16) Morphine (Verified Allergy, Severe, RED HIVE WENT UP ARM FROM IV SITE, 12/22) NSAIDs (Verified Allergy, Severe, DUE TO LIVER DISEAS, 09/15/16) Penicillins (Verified Allergy, Severe, JOINT SWELLING AND FEVER, 09/15/16) Fentanyl (Verified Allergy, Intermediate, rash, 09/15/16) Levofloxacin (Verified Allergy, Intermediate, RASH, 09/15/16) pt developed erythema at site of IV injection with itching Vancomycin (Verified Allergy, Mild, HIVES, 09/15/16) HIVES Tramadol (Verified Allergy, Unknown, NOT TO TAKE WITH KEPPRA DUE TO SEIZURE RISK, 09/15/16) Physical Exam Vital Signs Date Time Temp Pulse Resp B/P (MAP) Pulse Ox O2 Delivery O2 Flow Rate FiO2 09/18/16 14:02 75 20 118/74 99 Room Air 09/18/16 13:27 80 18 120/69 98 Room Air 09/18/16 12:55 76 20 107/60 97 Room Air 09/18/16 12:05 80 17 120/74 95 Room Air 09/18/16 11:00 80 18 131/78 98 Room Air 09/18/16 10:18 77 19 119/79 96 Room Air 09/18/16 08:55 36.9 86 20 128/75 98 Room Air Physical Exam GENERAL: Patient is awake, alert, in no acute distress, patient is resting comfortably and showing no signs of anxiety EYES: The conjunctivae are clear. The pupils are round and reactive. EARS, NOSE, MOUTH AND THROAT: The nose is without any evidence of any deformity. Mucous membranes are moist tongue is midline NECK: The neck is nontender and supple. RESPIRATORY: Heart sounds are tachycardic but regular. No definite murmur noted to auscultation. CARDIOVASCULAR: Regular rate and rhythm noted there no murmurs rubs or gallops normal S1 normal S2 GASTROINTESTINAL: The abdomen is moderately distended with edema in the abdominal wall. There was an umbilical hernia but no incarceration. Recent paracentesis site with dressing in place in left side. : Significant scrotal swelling with erythema noted of the scrotum. MUSCULOSKELETAL/EXTREMITIES: There is no evidence of gross deformity full range of motion is noted in the hips and shoulders SKIN: Pedal edema bilaterally. There is no obvious evidence of any rash. There are no petechiae, pallor or cyanosis noted. NEUROLOGIC: Patient is awake alert and oriented x3 Medical Decision & Procedures ER Provider Diagnostic Interpretation: Radiology results as stated below per my review and radiologist interpretation: CHEST ONE VIEW PORTABLE CLINICAL HISTORY: ABDOMINAL PAIN/GI pain COMPARISON STUDY: 08/04/2016 FINDINGS: The bones soft tissues and hemidiaphragms are normal. The cardiomediastinal silhouette is normal. The lungs are clear. The pulmonary vasculature is normal. IMPRESSION: Negative chest. The above report was generated using voice recognition software. It may contain grammatical, syntax or spelling errors. Electronically signed by: Marcin Tariq M.D. 09/18/2016 10:06 AM (TESTICULAR) SCROTUM-CONT CLINICAL HISTORY: 61 years-old Male presenting with redness and pain. TECHNIQUE: Real-time grayscale and color and spectral Doppler ultrasound imaging of the scrotum was performed. COMPARISON: 02/06/2014. FINDINGS: Right testis: Normal echogenicity and size, measuring 3.3 x 2.0 x 1.8 cm. Normal color Doppler flow and arterial and venous waveforms in the testicular parenchyma. Epididymal head normal. No varicocele. Trace hydrocele. Left testis: Normal echogenicity and size, measuring 3.4 x 2.0 x 1.8 cm. Normal color Doppler flow and arterial and venous waveforms in the testicular parenchyma. Epididymal head is somewhat hyperechogenic although not enlarged or hyperemic this is unchanged in appearance from prior exam.. No varicocele. Trace hydrocele. Bilaterally symmetric perfusion of the testes. Diffuse scrotal edema noted. IMPRESSION: 1. No evidence of testicular torsion. 2. Nonspecific diffuse scrotal edema. 3. Trace bilateral hydroceles. Electronically signed by: Slim Sarmiento M.D. 09/18/2016 12:44 PM Laboratory Results 09/18/16 08:55 Red Blood Count 4.12, Mean Corpuscular Volume 85.2, Mean Corpuscular Hemoglobin 29.1, Mean Corpuscular Hemoglobin Concent 34.2, Mean Platelet Volume 10.3, Neutrophils (%) (Auto) 72.9, Lymphocytes (%) (Auto) 11.1, Monocytes (%) (Auto) 11.5, Eosinophils (%) (Auto) 3.6, Basophils (%) (Auto) 0.7, Neutrophils # (Auto ) 4.07, Lymphocytes # (Auto) 0.62, Monocytes # (Auto) 0.64, Eosinophils # (Auto ) 0.20, Basophils # (Auto) 0.04 09/18/16 08:55 Test 09/18/16 08:55 09/18/16 10:30 White Blood Count 5.58 K/uL (4.8-10.8) Red Blood Count 4.12 M/uL (4.7-6.1) Hemoglobin 12.0 g/dL (14.0-18.0) Hematocrit 35.1 % (42-52) Mean Corpuscular Volume 85.2 fL (80-100) Mean Corpuscular Hemoglobin 29.1 pg (25-34) Mean Corpuscular Hemoglobin Concent 34.2 g/dl (32-36) Platelet Count 76 K/uL (130-400) Mean Platelet Volume 10.3 fL (7.4-10.4) Neutrophils (%) (Auto) 72.9 % Lymphocytes (%) (Auto) 11.1 % Monocytes (%) (Auto) 11.5 % Eosinophils (%) (Auto) 3.6 % Basophils (%) (Auto) 0.7 % Neutrophils # (Auto) 4.07 K/uL (1.4-6.5) Lymphocytes # (Auto) 0.62 K/uL (1.2-3.4) Monocytes # (Auto) 0.64 K/uL (0.11-0.59) Eosinophils # (Auto) 0.20 K/uL (0-0.5) Basophils # (Auto) 0.04 K/uL (0-0.2) RDW Standard Deviation 53.9 fL (36.4-46.3) RDW Coefficient of Variation 17.3 % (11.5-14.5) Immature Granulocyte % (Auto) 0.2 % Immature Granulocyte # (Auto) 0.01 K/uL (0.00-0.02) Platelet Estimate DECREASED Anisocytosis PRESENT Erythrocyte Sedimentation Rate 9 mm/hr (0-14) Prothrombin Time 14.0 SECONDS (9.0-12.0) Prothromb Time International Ratio 1.3 (0.9-1.1) Activated Partial Thromboplast Time 30.2 SECONDS (21.0-31.0) Partial Thromboplastin Ratio 1.2 Anion Gap 7.0 mmol/L (3-11) Est Creatinine Clear Calc Drug Dose 93.4 ml/min Estimated GFR () 105.7 Estimated GFR (Non- 91.2 BUN/Creatinine Ratio 7.7 (10-20) Calcium Level 8.6 mg/dl (8.5-10.1) Total Bilirubin 2.9 mg/dl (0.2-1) Direct Bilirubin 1.0 mg/dl (0-0.2) Aspartate Amino Transf (AST/SGOT) 45 U/L (15-37) Alanine Aminotransferase (ALT/SGPT) 25 U/L (12-78) Alkaline Phosphatase 143 U/L (45-117) C-Reactive Protein 1.20 mg/dl (0-0.29) Total Protein 6.2 gm/dl (6.4-8.2) Albumin 2.7 gm/dl (3.4-5.0) Lipase 125 U/L (73-393) Beta-Hydroxybutyric Acid 2.26 mg/dL (0.2-2.81) Urine Color YELLOW Urine Appearance CLEAR (CLEAR) Urine pH 6.0 (4.5-7.5) Urine Specific [place] 1.028 (1.000-1.030) Urine Protein NEG (NEG) Urine Glucose (UA) 3+ (NEG) Urine Ketones NEG (NEG) Urine Occult Blood NEG (NEG) Urine Nitrite NEG (NEG) Urine Bilirubin NEG (NEG) Urine Urobilinogen NEG (NEG) Urine Leukocyte Esterase NEG (NEG) Laboratory results per my review. Medications Administered Medications (Trade) Dose Ordered Sig/Ryan Route Start Time Stop Time Status Last Admin Dose Admin Hydromorphone HCl (Dilaudid Inj) 1 mg Q30M PRN IV 09/18/16 10:00 09/18/16 14:21 DC 09/18/16 13:03 1 MG Ondansetron HCl (Zofran Inj) 4 mg NOW STAT IV 09/18/16 09:48 09/18/16 09:52 DC 09/18/16 10:08 4 MG Sodium Chloride 500 ml @ 999 mls/hr Q31M STAT IV 09/18/16 12:23 09/18/16 12:53 DC 09/18/16 12:23 999 MLS/HR Trimethoprim/ Sulfamethoxazole (Septra Ds 800/ 160MG Tab) 1 tab NOW STAT PO 09/18/16 12:23 09/18/16 12:25 DC 09/18/16 12:57 1 TAB Cephalexin Monohydrate (Keflex Cap) 500 mg NOW ONCE PO 09/18/16 12:30 09/18/16 12:31 DC 09/18/16 12:57 500 MG ED Course 0943: The patient was evaluated in room B6. A complete history and physical examination were performed. 0948: Zofran 4 mg IV. 1000: Dilaudid 1 mg IV. 1223: Septra Ds 800/160 mg 1 tab PO, NSS 500 ml @ 999 mls/hr IV. 1230: Keflex Cap 500 mg PO. 1322: I reevaluated the patient. He is resting comfortably. I discussed his results and discharge instructions and he verbalized complete understanding. Medical Decision Prior records reviewed and summarized as above. Triage Nursing notes reviewed. The patient's history was concerning for swelling and redness of the skin. Differential diagnosis: Etiologies such as cellulitis, abscess, MRSA infection, DVT, necrotizing fasciitis, dermatitis, drug eruption, as well as others were entertained. The patient is a 61-year-old male who presented to the emergency department for an evaluation of swelling and redness on his scrotum. The patient has a history of end-stage liver disease and has had a recent paracentesis. He had approximate 5 liters removed from his abdomen. The patient started to notice swelling in his scrotum. I discussed the patient's laboratory and radiographic studies with him. A review of his labs make me feel that this is more likely secondary to fluid shifting rather than a definite cellulitis however given the patient's past medical history and other risk factors he was started on a course of antibiotics in the emergency department. He was encouraged to rest and avoid any strenuous activity. He was also encouraged to have this suspected infection rechecked by his primary care physician within the next few days. He is also encouraged return to emergency department immediately if symptoms change worsen or the need arises. Medication Reconcilliation Current Medication List: was personally reviewed by me Blood Pressure Screening Patient's blood pressure: Normal blood pressure Blood pressure disposition: Did not require urgent referral Impression Primary Impression: Cellulitis of scrotum Scribe Attestation The scribe's documentation has been prepared under my direction and personally reviewed by me in its entirety. I confirm that the note above accurately reflects all work, treatment, procedures, and medical decision making performed by me. Departure Information Dispostion Home / Self-Care Prescriptions Sulfa/Trimethoprim (Bactrim Ds 800MG/160MG) Tab 1 TAB PO BID, #20 TAB Prov: Adrian Miner, DO 09/18/16 Cephalexin Monohydrate (KEFLEX) 500 Mg Cap 500 MG PO QID, #40 CAP Prov: Adrian Miner, 09/18/16 Referrals Chacha Munoz D.O. (PCP) Patient Instructions Cellulitis Dc, My [facility] Additional Instructions Call your family to schedule a follow-up appointment. Continue all medications as prescribed.
--- NOTE | 2016-09-18 10:08 | DIAGNOSTIC IMAGING REPORT ---
CHEST ONE VIEW PORTABLE CLINICAL HISTORY: ABDOMINAL PAIN/GI pain COMPARISON STUDY: 08/04/2016 FINDINGS: The bones soft tissues and hemidiaphragms are normal. The cardiomediastinal silhouette is normal. The lungs are clear. The pulmonary vasculature is normal. IMPRESSION: Negative chest. The above report was generated using voice recognition software. It may contain grammatical, syntax or spelling errors. Electronically signed by: Marcin Tariq M.D. 09/18/2016 10:06 AM Dictated Date/Time: 09/18/2016 10:06 AM
[2016-09-18] MEDS: HYDROmorphone INJ 1 MG/ML SYR IV PRN ×2 (10:09→13:03)
[2016-09-18 10:13] LABS: MEAN CORPUSCULAR HGB CONC 34.2 g/dl (32-36)
[2016-09-18 10:15] LABS: INR 1.3 (0.9-1.1); PARTIAL THROMBOPLASTIN RATIO 1.2
[2016-09-18] MEDS ORDERED: MELA1TAB4 PO (10:22)
[2016-09-18] MEDS ORDERED: BND25 PO (10:22)
[2016-09-18] MEDS ORDERED: RIFA550T2 PO (10:22)
[2016-09-18 10:33] LABS: BUN/CREATININE RATIO 7.7 (10-20); C-REACTIVE PROTEIN 1.2 mg/dl (0-0.29); CALCIUM 8.6 mg/dl (8.5-10.1); CREATININE 0.9 mg/dl (0.60-1.40); POTASSIUM 4.6 mmol/L (3.5-5.1)
[2016-09-18 10:40] LABS: HEMATOCRIT 35.1 % (42-52); MEAN CELL VOLUME 85.2 fL (80-100); MEAN CORPUSCULAR HEMOGLOBIN 29.1 pg (25-34); RED BLOOD COUNT 4.12 M/uL (4.7-6.1); WHITE BLOOD COUNT 5.58 K/uL (4.8-10.8)
[2016-09-18 10:47] LABS: MEAN PLATELET VOLUME 10.3 fL (7.4-10.4); PLATELET COUNT 76 K/uL (130-400)
[2016-09-18 10:49] LABS: ANISOCYTOSIS PRESENT; BASO % 0.7 %; BASO ABS # 0.04 K/uL (0-0.2); COMPLETE YES; EOS % 3.6 %; IG% 0.2 %; LYMPH % 11.1 %; LYMPH ABS # 0.62 K/uL (1.2-3.4); MONO % 11.5 %; NEUT % 72.9 %; PLT ESTIMATE DECREASED
[2016-09-18 10:53] LABS: BETA-HYDROXYBUTYRATE 2.26 mg/dL (0.2-2.81)
[2016-09-18 11:04] LABS: URINE APPEARANCE CLEAR (CLEAR); URINE BILIRUBIN NEG (NEG); URINE COLOR YELLOW; URINE NITRITE NEG (NEG); URINE SPECIFIC GRAVITY 1.028 (1.000-1.030); UROBILINOGEN NEG (NEG)
[2016-09-18 11:07] LABS: MANUAL MICROSCOPIC REQUIRED? NO; REVIEW REQ? NO
[2016-09-18] MEDS ORDERED: SODIUM CHLORIDE 0.9% 500ML 500 ML IV STA (12:23)
[2016-09-18] MEDS ORDERED: SULFAMETHOXAZOLE/TRIMETHOPRIM DS 800/160MG TAB PO STA (12:23)
[2016-09-18] MEDS ORDERED: CEPHALEXIN MONOHYDRATE 250 MG CAP PO ONE (12:30)
--- NOTE | 2016-09-18 12:46 | DIAGNOSTIC IMAGING REPORT ---
(TESTICULAR) SCROTUM-CONT CLINICAL HISTORY: 61 years-old Male presenting with redness and pain. TECHNIQUE: Real-time grayscale and color and spectral Doppler ultrasound imaging of the scrotum was performed. COMPARISON: 02/06/2014. FINDINGS: Right testis: Normal echogenicity and size, measuring 3.3 x 2.0 x 1.8 cm. Normal color Doppler flow and arterial and venous waveforms in the testicular parenchyma. Epididymal head normal. No varicocele. Trace hydrocele. Left testis: Normal echogenicity and size, measuring 3.4 x 2.0 x 1.8 cm. Normal color Doppler flow and arterial and venous waveforms in the testicular parenchyma. Epididymal head is somewhat hyperechogenic although not enlarged or hyperemic this is unchanged in appearance from prior exam.. No varicocele. Trace hydrocele. Bilaterally symmetric perfusion of the testes. Diffuse scrotal edema noted. IMPRESSION: 1. No evidence of testicular torsion. 2. Nonspecific diffuse scrotal edema. 3. Trace bilateral hydroceles. Electronically signed by: Slim Sarmiento M.D. 09/18/2016 12:44 PM Dictated Date/Time: 09/18/2016 12:42 PM
[2016-09-18] MEDS ORDERED: SULF800T23 PO (13:07)
[2016-09-18] MEDS ORDERED: CEPH500C2 PO (13:07)
[2016-09-18 14:02] VITALS: BP 118/74; PULSE 75; O2SAT 99
[2016-10-28] MEDS ORDERED: XFX550 PO (14:18)
[2016-11-06] MEDS ORDERED: CLIN300C2 PO (14:29)
[2016-11-06] MEDS ORDERED: LCTX PO (14:29)
[2016-11-18] MEDS ORDERED: CLIN300C2 PO (10:23)
== END 2016-09-18 14:11 | disposition home or self-care (01) ==
LOC: EDBD 08:52 → C.EDB 08:53
DX: N49.2 Inflammatory disorders of scrotum (principal); K72.90 Hepatic failure, unspecified without coma; F41.9 Anxiety disorder, unspecified; F32.9 Major depressive disorder, single episode, unspecified; E11.9 Type 2 diabetes mellitus without complications; E78.5 Hyperlipidemia, unspecified; E03.9 Hypothyroidism, unspecified; K75.81 Nonalcoholic steatohepatitis (NASH); K76.6 Portal hypertension; G40.909 Epilepsy, unspecified, not intractable, without status epilepticus; Z86.711 Personal history of pulmonary embolism; Z86.718 Personal history of other venous thrombosis and embolism; Z82.49 Family history of ischemic heart disease and other diseases of the circulatory system; Z80.9 Family history of malignant neoplasm, unspecified; Z79.4 Long term (current) use of insulin; Z79.899 Other long term (current) drug therapy

== ENCOUNTER 2016-10-01 15:45 | Inpatient (IN) | payer OTHER ==
[~2016-10-01] VITALS: Ht 182.9 cm; Wt 84.0 kg
[~2016-10-01 15:45] MED LIST changes: +BND25 PO; +CEPH500C2 PO; +RIFA550T2 PO; +SULF800T23 PO
[2016-10-01] MEDS ORDERED: HYDROmorphone INJ 1 MG/ML SYR IV STA ×2 (16:10→19:55)
[2016-10-01] MEDS ORDERED: ESCI1TAB10 PO (16:33)
[2016-10-01 16:42] LABS: INR 1.2 (0.9-1.1); PROTHROMBIN TIME (PATIENT) 13.4 SECONDS (9.0-12.0)
[2016-10-01 17:03] LABS: HEMATOCRIT 34.1 % (42-52); MEAN CELL VOLUME 87.4 fL (80-100); MEAN CORPUSCULAR HEMOGLOBIN 29.2 pg (25-34); MEAN CORPUSCULAR HGB CONC 33.4 g/dl (32-36); WHITE BLOOD COUNT 8.04 K/uL (4.8-10.8)
[2016-10-01 17:18] LABS: BASO % 0.6 %; BASO ABS # 0.05 K/uL (0-0.2); COMPLETE YES; EOS % 2.4 %; IG% 0.2 %; LYMPH % 7.2 %; LYMPH ABS # 0.58 K/uL (1.2-3.4); MEAN PLATELET VOLUME 11.1 fL (7.4-10.4); MONO % 10.2 %; NEUT % 79.4 %; PLATELET COUNT 93 K/uL (130-400)
[2016-10-01 17:24] LABS: BUN/CREATININE RATIO 13.1 (10-20); CALCIUM 7.7 mg/dl (8.5-10.1); CREATININE 1.2 mg/dl (0.60-1.40); MAGNESIUM 2.1 mg/dl (1.8-2.4); POTASSIUM 4.2 mmol/L (3.5-5.1)
[2016-10-01] MEDS ORDERED: NovoLIN-R INSULIN PER UNIT CHARGE IV STA (17:27)
[2016-10-01 17:28] LABS: ECHINOCYTES 1+
[2016-10-01 17:32] VITALS: Ht 182.9 cm; Wt 84.0 kg
[2016-10-01] MEDS ORDERED: INSULIN ASPART 100 UNITS/ML 3 ML PEN SC STA (17:35)
[2016-10-01 17:36] LABS: BETA-HYDROXYBUTYRATE 2.1 mg/dL (0.2-2.81)
[2016-10-01] MEDS ORDERED: GLUCAGON FOR INJ 1 MG VIAL SQ PRN (18:00)
[2016-10-01] MEDS ORDERED: DEXTROSE 50% 50 ML SYR IV PRN (18:00)
[2016-10-01] MEDS ORDERED: GLUCOSE 40% GEL 15 GM TUBE PO PRN (18:00)
[2016-10-01] MEDS ORDERED: GLUCOSE 10 TABS/TUBE PO PRN (18:00)
--- NOTE | 2016-10-01 18:21 | DIAGNOSTIC IMAGING REPORT ---
CHEST ONE VIEW PORTABLE HISTORY: 61 years-old Male acute shortness of breath. COMPARISON: Chest radiograph 09/18/2016 TECHNIQUE: Portable upright AP view of the chest FINDINGS: Cardiac silhouette is within normal limits. There is no pneumothorax or pleural effusion. Lungs are hypoinflated with bronchovascular crowding. Linear subsegmental left greater than right bibasilar opacities are seen. Bones are grossly intact. IMPRESSION: Hypoinflation with linear left greater than right bibasilar subsegmental opacities suggesting atelectasis with pneumonia thought to be less likely. The above report was generated using voice recognition software. It may contain grammatical, syntax or spelling errors. Electronically signed by: Elia Ramesh M.D. 10/01/2016 6:20 PM Dictated Date/Time: 10/01/2016 6:18 PM
[2016-10-01 18:30] VITALS: O2SAT 96
[2016-10-01] MEDS ORDERED: IV FLUIDS COMPLETED PRN (18:30)
--- NOTE | 2016-10-01 18:44 | History and Physical ---
History & Physical Date & Time of Service: Oct 01, 2016 at 18:32 Chief Complaint: S/P Paracentesis, Abdomen Distention, Sob Primary Care Physician: Chacha Munoz D.O. History of Present Illness Source: patient This is a 61 year old M with history of cirrhosis with multiple hospital presentations for ascites requiring paracentesis. Patient estimates that he has more than 50 paracentesis before in his life time and his symptoms have been present for at least 3 years. Patient last had paracentesis around 1 week ago for which he reports 5 to 10 liters of ascites fluid removed and required albumin transfusion subsequently. Patient also reports that he is following with doctors in [place], [place] whether he is candidate for TIPs versus liver transplant. Patient also taking medications for thyroid dysfunction, seizure and encephalopathy prophylaxis, and insulin for diabetes. Patient also found to be hyperglycemic with glucose over 600. He is awake, alert, and oriented on exam in the ED with very distended abdomen. 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 Surgical Problems: (1) H/O esophagogastroduodenoscopy Status: Resolved (2) H/O knee surgery Status: Resolved (3) S/P cervical spinal fusion Status: Resolved (4) S/P IVC filter Status: Resolved (5) S/P lumbar fusion Status: Resolved (6) S/P T&A (status post tonsillectomy and adenoidectomy) Status: Resolved Family History FH: CAD (coronary artery disease) FATHER FH: breast cancer MOTHER Social History Smoking Status: Never Smoker Drug Use: none Marital Status: single Housing status: lives with roommate Occupational Status: retired Immunizations History of Influenza Vaccine: Yes Influenza Vaccine Date: Oct 21, 2014 History of Tetanus Vaccine?: Yes Tetanus Immunization Date: Mar 15, 1972 History of Pneumococcal: Yes Pneumococcal Date: Feb 05, 2009 History of Hepatitis B Vaccine: Yes Hepatitis Immunization Date: June 18, 2013 Multi-Drug Resistant Organisms History of MDRO: No Allergies Coded Allergies: Acetaminophen (Verified Allergy, Severe, ESLD (BETANCOURT). on Liver transplant list. Cannot have APAP., 10/01/16) Morphine (Verified Allergy, Severe, RED HIVE WENT UP ARM FROM IV SITE, ) NSAIDs (Verified Allergy, Severe, DUE TO LIVER DISEAS, 10/01/16) Penicillins (Verified Allergy, Severe, JOINT SWELLING AND FEVER, 10/01/16) Fentanyl (Verified Allergy, Intermediate, rash, 10/01/16) Levofloxacin (Verified Allergy, Intermediate, RASH, 10/01/16) pt developed erythema at site of IV injection with itching Vancomycin (Verified Allergy, Mild, HIVES, 10/01/16) HIVES Tramadol (Verified Allergy, Unknown, NOT TO TAKE WITH KEPPRA DUE TO SEIZURE RISK, 10/01/16) Home Medications Scheduled Cephalexin Monohydrate (Keflex), 500 MG PO QID Escitalopram Oxalate (Lexapro), 20 MG PO DAILY Ferrous Sulfate (Kp Ferrous Sulfate), 325 MG PO BID Furosemide (Lasix), 40 MG PO DAILY Insulin Aspart (Novolog), 14 UNITS SQ TIDM Insulin Glargine (Lantus), 38 UNITS SC BID Lactulose (Chronulac), 20 GM PO TID Levetiractam (Levetiracetam), 500 MG PO BID Levothyroxine Sodium (Synthroid), 75 MCG PO QAM Magnesium Oxide (Mag-Ox), 400 MG PO BID Pantoprazole (Protonix), 40 MG PO BID Polyethylene Glycol 3350 (Miralax), 17 GM PO BID Propranolol (Inderal), 10 MG PO BID Pyridoxine Hcl (Vitamin B-6), 25 MG PO HS Spironolactone (Aldactone), 100 MG PO DAILY Scheduled PRN Diphenhydramine Hcl (Benadryl), 25 MG PO BID PRN for Itching Hydromorphone Hcl (Dilaudid), 4 MG PO TID PRN for Pain Ondasetron Odt (Zofran Odt), 4 MG SL Q6H PRN for Nausea or Vomiting Triamcinolone Acet (Aristocort 0.1%), 1 APPL EXT BID PRN for dermatitis Review of Systems Constitutional: No fever Eyes: No discharge ENT: + dental problems, No nasal symptoms, No sore throat Respiratory: No cough, No sputum, No wheezing, No shortness of breath, No hemoptysis Cardiovascular: No chest pain, No edema, No palpitations Abdomen: No pain, No vomiting, No diarrhea, No constipation Genitourinary - Male: No dysuria Neurologic: No numbness/tingling Psychiatric: No substance abuse Hematologic / Lymphatic: + abnormal bleeding/bruising (above left wrist is skin abrasion that patient reports is taking long time to heal) Integumentary: No rash, No itch, No new/changing skin lesions (big toe has dressing over bruised nail) Physical Exam Vital Signs Date Time Temp Pulse Resp B/P (MAP) Pulse Ox O2 Delivery O2 Flow Rate FiO2 10/01/16 18:30 80 20 140/75 96 Room Air 10/01/16 17:40 65 18 124/75 97 Room Air 10/01/16 17:32 Room Air 10/01/16 16:21 75 10/01/16 16:08 98 Room Air 10/01/16 15:53 36.7 88 20 128/78 94 Room Air General Appearance: no apparent distress Head: normocephalic, atraumatic Eyes: normal inspection, PERRL, EOMI ENT: hearing grossly normal, pharynx normal Neck: supple, no JVD, trachea midline Respiratory/Chest: chest non-tender, lungs clear, normal breath sounds, no respiratory distress, no accessory muscle use Cardiovascular: regular rate, rhythm, no edema, no JVD, normal peripheral pulses Abdomen/GI: + distended Extremities/Musculoskelatal: normal inspection, no calf tenderness, normal capillary refill, no pedal edema Neurologic/Psych: alert, normal mood/affect, oriented x 3 Skin: normal color, warm/dry, no rash Diagnostics Laboratory Results Results Past 24 Hours Test 10/01/16 16:20 10/01/16 16:54 Range/Units Prothrombin Time 13.4 9.0-12.0 SECONDS Prothromb Time International Ratio 1.2 0.9-1.1 Activated Partial Thromboplast Time 27.2 21.0-31.0 SECONDS Partial Thromboplastin Ratio 1.0 White Blood Count 8.04 4.8-10.8 K/uL Red Blood Count 3.90 4.7-6.1 M/uL Hemoglobin 11.4 14.0-18.0 g/dL Hematocrit 34.1 42-52 % Mean Corpuscular Volume 87.4 80-100 fL Mean Corpuscular Hemoglobin 29.2 25-34 pg Mean Corpuscular Hemoglobin Concent 33.4 32-36 g/dl Platelet Count 93 130-400 K/uL Mean Platelet Volume 11.1 7.4-10.4 fL Neutrophils (%) (Auto) 79.4 % Lymphocytes (%) (Auto) 7.2 % Monocytes (%) (Auto) 10.2 % Eosinophils (%) (Auto) 2.4 % Basophils (%) (Auto) 0.6 % Neutrophils # (Auto) 6.38 1.4-6.5 K/uL Lymphocytes # (Auto) 0.58 1.2-3.4 K/uL Monocytes # (Auto) 0.82 0.11-0.59 K/uL Eosinophils # (Auto) 0.19 0-0.5 K/uL Basophils # (Auto) 0.05 0-0.2 K/uL RDW Standard Deviation 52.6 36.4-46.3 fL RDW Coefficient of Variation 16.3 11.5-14.5 % Immature Granulocyte % (Auto) 0.2 % Immature Granulocyte # (Auto) 0.02 0.00-0.02 K/uL Echinocytes 1+ Sodium Level 128 136-145 mmol/L Potassium Level 4.2 3.5-5.1 mmol/L Chloride Level 96 98-107 mmol/L Carbon Dioxide Level 23 21-32 mmol/L Anion Gap 9.0 3-11 mmol/L Blood Urea Nitrogen 16 7-18 mg/dl Creatinine 1.20 0.60-1.40 mg/dl Est Creatinine Clear Calc Drug Dose 70.1 ml/min Estimated GFR () 74.7 Estimated GFR (Non- 64.4 BUN/Creatinine Ratio 13.1 10-20 Random Glucose 641 70-99 mg/dl Calcium Level 7.7 8.5-10.1 mg/dl Magnesium Level 2.1 1.8-2.4 mg/dl Total Bilirubin 2.4 0.2-1 mg/dl Direct Bilirubin 1.2 0-0.2 mg/dl Aspartate Amino Transf (AST/SGOT) 30 15-37 U/L Alanine Aminotransferase (ALT/SGPT) 20 12-78 U/L Alkaline Phosphatase 130 45-117 U/L Total Protein 5.8 6.4-8.2 gm/dl Albumin 2.5 3.4-5.0 gm/dl Lipase 244 73-393 U/L Beta-Hydroxybutyric Acid 2.10 0.2-2.81 mg/dL Diagnostic Radiology CHEST ONE VIEW PORTABLE FINDINGS: Cardiac silhouette is within normal limits. There is no pneumothorax or pleural effusion. Lungs are hypoinflated with bronchovascular crowding. Linear subsegmental left greater than right bibasilar opacities are seen. Bones are grossly intact. IMPRESSION: Hypoinflation with linear left greater than right bibasilar subsegmental opacities suggesting atelectasis with pneumonia thought to be less likely. Electronically signed by: Elia Ramesh M.D. 10/01/2016 6:20 PM Dictated Date/Time: 10/01/2016 6:18 PM Impression Assessment and Plan 61 year old M with cirrhosis and recurrent ascites requiring multiple interventions of paracentesis. Not on SBP antibiotic prophylaxis at this time. Has been afebrile. Here in the ED for recurrent abdominal distention. Likely to get IR paracentesis on Sunday10/02/2016. In the ED, found to be hyperglycemic with glucose over 600. Ascites likely secondary to cirrhosis -Likely to get IR paracentesis on Sunday10/02/2016 -ascites specimen labs ordered for when ascites fluid is drawn -INR on admission is 1.2 -will give SCD sleeves to legs for DVT prophylaxis as planned paracentesis to be done soon -continue home dosed propanolol, lactulose, spirolactone, furosemide Diabetes with Hyperglycemia -Beta hydroxybutyric levels within normal limits -Urine ketones study ordered -patient alert and oriented, less likely in DKA -ED ordered Insulin Regular 8 units IV -Hospitalist also ordering 14 units of aspart x 1 stat, continue home regimen of aspart TID with meals, continue home regimen of lantus 38 units BID, and sliding scale insulin Electrolytes / vitamins -check and replete electrolytes especially vitamin K as patient on insulin and diuretics -continue home dosed magnesium, vitamin B6 Thyroid -continue home dosed levothyroxine Bowel regimen Hold narcotics Full Code Advanced Directives Existing Living Will: Yes Existing Power of Regional Manager: Yes Resuscitation Status FULL RESUSCITATION VTE Prophylaxis VTE Risk Assessment Done? Y/N: Yes Risk Level: High
[2016-10-01 19:00] VITALS: BP 106/60; PULSE 67; TEMP 36.8; O2SAT 97
[2016-10-01] MEDS ORDERED: PHARMACY GLYCEMIC MGMT CONSULT PRN (20:00)
[2016-10-01] MEDS ORDERED: INSULIN HUMAN REGULAR IV BOLUS 2 UNIT in SYRINGE 0 ML IV SCH (20:00)
[2016-10-01] MEDS: INSULIN REGULAR 250 UNITS in SODIUM CHLORIDE 0.9% 250ML 250 ML IV SCH ×4 (20:40→23:57)
[2016-10-01] MEDS: LACTULOSE SYRUP 20 GM/30 ML UDC PO SCH (20:47)
[2016-10-01] MEDS: LEVETIRACETAM 500 MG TAB PO SCH (20:49)
[2016-10-01] MEDS: POLYETHYLENE (MIRALAX) 17 GM PACK PO SCH (20:49)
--- NOTE | 2016-10-01 20:49 | EMERGENCY ROOM VISIT NOTE ---
History Report prepared by Alla: Francisco Malone Under the Supervision of: Dr. Alejandro Darby M.D. First contact with patient: 15:59 Chief Complaint: SHORTNESS OF BREATH Stated Complaint: S/P PARACENTESIS, ABDOMEN DISTENTION, SOB Nursing Triage Summary: Pt reports increased sob since yesterday, worse today. Pt states last paracentesis on Sun. Abd pain. Nausea. History of Present Illness The patient is a 61 year old male who presents to the Emergency Room with complaints of worsening shortness of breath and abdominal swelling starting yesterday. Additionally, he states he is nauseous, though he denies any fevers or vomiting. The patient states that he had a paracentesis done four days ago by an interventional radiologist, and they took 10 liters of fluid out of his stomach. He states that he was given albumin before and after the paracentesis. He states that his abdomen is swollen again, and he is having some abdominal pain, and he states that it feels hard. The patient states that he has had paracentesis before, and it has previously swollen quickly like this episode. The patient has a history of non-alcoholic cirrhosis and a mass on his liver, and he has not had a transplant yet until he talks to a transplant team. Additionally, the patient states that he is trying to get a TIPS procedure. The patient states that he has been eating, though he is having difficulty drinking. Source of History: patient Onset: yesterday Position: other (global) Quality: other (shortness of breath) Timing: worsening Associated Symptoms: + nausea, + abdominal pain, No fevers, No vomiting Review of Systems See HPI for pertinent positives & negatives. A total of 10 systems reviewed and were otherwise negative. 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 Surgical Problems: (1) H/O esophagogastroduodenoscopy (2) H/O knee surgery (3) S/P cervical spinal fusion (4) S/P IVC filter (5) S/P lumbar fusion (6) S/P T&A (status post tonsillectomy and adenoidectomy) Family History FH: CAD (coronary artery disease) FATHER FH: breast cancer MOTHER Social History Smoking Status: Never Smoker Alcohol Use: none Drug Use: none Marital Status: single Housing Status: lives with roommate Occupation Status: retired Current/Historical Medications Scheduled Cephalexin Monohydrate (Keflex), 500 MG PO QID Escitalopram Oxalate (Lexapro), 20 MG PO DAILY Ferrous Sulfate (Kp Ferrous Sulfate), 325 MG PO BID Furosemide (Lasix), 40 MG PO DAILY Insulin Aspart (Novolog), 14 UNITS SQ TIDM Insulin Glargine (Lantus), 38 UNITS SC BID Lactulose (Chronulac), 20 GM PO TID Levetiractam (Levetiracetam), 500 MG PO BID Levothyroxine Sodium (Synthroid), 75 MCG PO QAM Magnesium Oxide (Mag-Ox), 400 MG PO BID Pantoprazole (Protonix), 40 MG PO BID Polyethylene Glycol 3350 (Miralax), 17 GM PO BID Propranolol (Inderal), 10 MG PO BID Pyridoxine Hcl (Vitamin B-6), 25 MG PO HS Spironolactone (Aldactone), 100 MG PO DAILY Scheduled PRN Diphenhydramine Hcl (Benadryl), 25 MG PO BID PRN for Itching Hydromorphone Hcl (Dilaudid), 4 MG PO TID PRN for Pain Ondasetron Odt (Zofran Odt), 4 MG SL Q6H PRN for Nausea or Vomiting Triamcinolone Acet (Aristocort 0.1%), 1 APPL EXT BID PRN for dermatitis Allergies Coded Allergies: Acetaminophen (Verified Allergy, Severe, ESLD (BETANCOURT). on Liver transplant list. Cannot have APAP., 10/01/16) Morphine (Verified Allergy, Severe, RED HIVE WENT UP ARM FROM IV SITE, ) NSAIDs (Verified Allergy, Severe, DUE TO LIVER DISEAS, 10/01/16) Penicillins (Verified Allergy, Severe, JOINT SWELLING AND FEVER, 10/01/16) Fentanyl (Verified Allergy, Intermediate, rash, 10/01/16) Levofloxacin (Verified Allergy, Intermediate, RASH, 10/01/16) pt developed erythema at site of IV injection with itching Vancomycin (Verified Allergy, Mild, HIVES, 10/01/16) HIVES Tramadol (Verified Allergy, Unknown, NOT TO TAKE WITH KEPPRA DUE TO SEIZURE RISK, 10/01/16) Physical Exam Vital Signs Date Time Temp Pulse Resp B/P (MAP) Pulse Ox O2 Delivery O2 Flow Rate FiO2 10/01/16 17:32 Room Air 10/01/16 16:21 75 10/01/16 16:08 98 Room Air 10/01/16 15:53 36.7 88 20 128/78 94 Room Air Physical Exam Constitutional: Vital signs reviewed. Eyes: Pupils are equal round reactive to light. Conjunctiva are noninjected. ENT: Pharynx is clear without erythema or exudate. Mucous membranes are moist. Neck supple without meningeal signs. Respiratory: Clear to auscultation bilaterally. Breath sounds are equal bilaterally. Cardiovascular: Regular rate and rhythm. No rubs or gallops. GI: Tense ascites of the abdomen without tenderness. Significantly distended. Bowel sounds are present. Musculoskeletal: No peripheral edema. No lower extremity tenderness. Integumentary: No cyanosis. Neurological: The patient is awake and alert. No focal deficits. Psychiatric: Normal affect. Medical Decision & Procedures ER Provider Diagnostic Interpretation: Radiology results as stated below per my review and the radiologist's interpretation: CHEST ONE VIEW PORTABLE HISTORY: 61 years-old Male acute shortness of breath. COMPARISON: Chest radiograph 09/18/2016 TECHNIQUE: Portable upright AP view of the chest FINDINGS: Cardiac silhouette is within normal limits. There is no pneumothorax or pleural effusion. Lungs are hypoinflated with bronchovascular crowding. Linear subsegmental left greater than right bibasilar opacities are seen. Bones are grossly intact. IMPRESSION: Hypoinflation with linear left greater than right bibasilar subsegmental opacities suggesting atelectasis with pneumonia thought to be less likely. The above report was generated using voice recognition software. It may contain grammatical, syntax or spelling errors. Electronically signed by: Elia Ramesh M.D. 10/01/2016 6:20 PM Dictated Date/Time: 10/01/2016 6:18 PM Laboratory Results 10/01/16 16:54 Red Blood Count 3.90, Mean Corpuscular Volume 87.4, Mean Corpuscular Hemoglobin 29.2, Mean Corpuscular Hemoglobin Concent 33.4, Mean Platelet Volume 11.1, Neutrophils (%) (Auto) 79.4, Lymphocytes (%) (Auto) 7.2, Monocytes (%) (Auto) 10.2, Eosinophils (%) (Auto) 2.4, Basophils (%) (Auto) 0.6, Neutrophils # (Auto ) 6.38, Lymphocytes # (Auto) 0.58, Monocytes # (Auto) 0.82, Eosinophils # (Auto ) 0.19, Basophils # (Auto) 0.05 10/01/16 16:54 Test 10/01/16 16:20 10/01/16 16:54 Prothrombin Time 13.4 SECONDS (9.0-12.0) Prothromb Time International Ratio 1.2 (0.9-1.1) Activated Partial Thromboplast Time 27.2 SECONDS (21.0-31.0) Partial Thromboplastin Ratio 1.0 White Blood Count 8.04 K/uL (4.8-10.8) Red Blood Count 3.90 M/uL (4.7-6.1) Hemoglobin 11.4 g/dL (14.0-18.0) Hematocrit 34.1 % (42-52) Mean Corpuscular Volume 87.4 fL (80-100) Mean Corpuscular Hemoglobin 29.2 pg (25-34) Mean Corpuscular Hemoglobin Concent 33.4 g/dl (32-36) Platelet Count 93 K/uL (130-400) Mean Platelet Volume 11.1 fL (7.4-10.4) Neutrophils (%) (Auto) 79.4 % Lymphocytes (%) (Auto) 7.2 % Monocytes (%) (Auto) 10.2 % Eosinophils (%) (Auto) 2.4 % Basophils (%) (Auto) 0.6 % Neutrophils # (Auto) 6.38 K/uL (1.4-6.5) Lymphocytes # (Auto) 0.58 K/uL (1.2-3.4) Monocytes # (Auto) 0.82 K/uL (0.11-0.59) Eosinophils # (Auto) 0.19 K/uL (0-0.5) Basophils # (Auto) 0.05 K/uL (0-0.2) RDW Standard Deviation 52.6 fL (36.4-46.3) RDW Coefficient of Variation 16.3 % (11.5-14.5) Immature Granulocyte % (Auto) 0.2 % Immature Granulocyte # (Auto) 0.02 K/uL (0.00-0.02) Echinocytes 1+ Anion Gap 9.0 mmol/L (3-11) Est Creatinine Clear Calc Drug Dose 70.1 ml/min Estimated GFR () 74.7 Estimated GFR (Non- 64.4 BUN/Creatinine Ratio 13.1 (10-20) Calcium Level 7.7 mg/dl (8.5-10.1) Magnesium Level 2.1 mg/dl (1.8-2.4) Total Bilirubin 2.4 mg/dl (0.2-1) Direct Bilirubin 1.2 mg/dl (0-0.2) Aspartate Amino Transf (AST/SGOT) 30 U/L (15-37) Alanine Aminotransferase (ALT/SGPT) 20 U/L (12-78) Alkaline Phosphatase 130 U/L (45-117) Total Protein 5.8 gm/dl (6.4-8.2) Albumin 2.5 gm/dl (3.4-5.0) Lipase 244 U/L (73-393) Beta-Hydroxybutyric Acid 2.10 mg/dL (0.2-2.81) Laboratory results as reviewed by me. Medications Administered Medications (Trade) Dose Ordered Sig/Ryan Route Start Time Stop Time Status Last Admin Dose Admin Hydromorphone HCl (Dilaudid Inj) 1 mg NOW STAT IV 10/01/16 16:10 10/01/16 16:12 DC 10/01/16 16:30 1 MG Insulin Human Regular (novoLIN-R U-100 PER UNIT) 8 units NOW STAT IV 10/01/16 17:27 10/01/16 17:29 DC 10/01/16 17:34 8 UNITS Insulin Aspart (novoLOG ASPART) 14 units NOW STAT SC 10/01/16 17:35 10/01/16 17:45 DC 10/01/16 18:05 14 UNITS ED Course 1602: The patient was evaluated in room B6. A complete history and physical exam was performed. 1610: Dilaudid Inj 1mg IV 1615: I discussed the patient's case with Dr. Nielson, and he states that the patient should be admitted, or if radiology is able to do the paracentesis, then we could do it that way. 1618: I discussed the patient's case with the interventional radiologist, and he will do the paracentesis first thing tomorrow morning. 1632: I spoke with Dr. Louie [facility]. We discussed the patient and his results. The patient will be further evaluated by him. Medical Decision This is a 61-year-old male who presents with dyspnea and abdominal pain. Differential diagnosis includes ascites, cirrhosis, malignant ascites, SBP, pneumonia, anemia. I did perform a limited focused review of portions of the patient's old chart on the electronic medical record. The patient underwent a paracentesis on 09/27. I did evaluate the patient as noted above. The patient is presenting with dyspnea secondary to reaccumulation of his ascites. He does have a tense abdomen. He denies any fevers or discomfort to suggest SBP. He does have abdominal discomfort which is chronic for him and he takes Dilaudid normally which she states he ran out of. He has no tenderness to his abdomen but he does have significant ascites. IV access was established. I did treat the patient with IV Dilaudid. I did order and personally review the patient's chest x-ray as described above. I did order and review the patient's blood work as noted in the electronic medical record. He is hyperglycemic. I did treat the patient with IV insulin. I did discuss the case with the GI doctor and hospitalist. He will be hospitalized for paracentesis in the morning. Medication Reconcilliation Current Medication List: was personally reviewed by me Blood Pressure Screening Patient's blood pressure: Normal blood pressure Consults Time Called: 1609 Consulting Physician: Dr. Nielson Returned Call: 1615 I discussed the patient's case with Dr. Nielson, and he states that the patient should be admitted, or if radiology is able to do the paracentesis, then we could do it that way. Additional Consults: Time Called: 1618 Consulted Physician: Omar Eaton Returned Call: 1632 Additional Comments: I spoke with Dr. Hanks of [facility]. We discussed the patient and his results. The patient will be further evaluated by him. Impression Primary Impression: Ascites Additional Impressions: BETANCOURT (nonalcoholic steatohepatitis) Dyspnea Hyperglycemia Scribe Attestation The scribe's documentation has been prepared under my direct and personally reviewed by me in its entirety. I confirm that the note above accurately reflects all work, treatment, procedures, and medical decision making performed by me. Departure Information Dispostion Being Evaluated By Hospitalist Referrals Chacha Munoz D.O. (PCP) Patient Instructions My [facility] Problem Qualifiers Primary Impression: Ascites Ascites type: other type Qualified Codes: R18.8 - Other ascites Additional Impressions: Dyspnea Dyspnea type: unspecified Qualified Codes: R06.00 - Dyspnea, unspecified
[2016-10-01] MEDS: MAGNESIUM OXIDE 400 MG TAB PO SCH (20:50)
[2016-10-01] MEDS: PROPRANOLOL HCL 10 MG TAB PO SCH (20:50)
[2016-10-01] MEDS: PANTOprazole SOD 40 MG TAB PO SCH (20:50)
[2016-10-01] MEDS: PYRIDOXINE HCL 50 MG TAB PO SCH (20:51)
[2016-10-01] MEDS: INSULIN ASPART 100 UNITS/ML 3 ML PEN SC SCH (21:00)
[2016-10-01] MEDS: INSULIN GLARGINE SOLOSTAR 100 UNITS/ML 3 ML PEN SC SCH (21:00)
[2016-10-01 21:04] VITALS: BP 128/76; PULSE 73
--- NOTE | 2016-10-01 22:06 | Pharmacy Progress Note ---
Glycemic Control Intl Consult Date of Service Oct 01, 2016. Scope Glycemic Pharmacist consulted by Dr Mckenzie on 10/01/16 for glycemic control and to write orders per [facility] inpatient glycemic control protocol Objective Weight (Kilograms): 84.000 Accuchecks BSG (last 24hrs): Test 10/01/16 16:54 10/01/16 18:22 10/01/16 18:58 10/01/16 19:57 Random Glucose 641 mg/dl (70-99) Bedside Glucose 510 mg/dl (70-99) 510 mg/dl (70-99) 446 mg/dl (70-99) Test 10/01/16 21:38 Laboratory Data (last 24hrs) Test 10/01/16 16:54 10/01/16 21:38 Anion Gap 9.0 mmol/L BUN/Creatinine Ratio 13.1 Blood Urea Nitrogen 16 mg/dl Creatinine 1.20 mg/dl Potassium Level 4.2 mmol/L Sodium Level 128 mmol/L White Blood Count 8.04 K/uL Red Blood Count 3.90 M/uL Hemoglobin 11.4 g/dL Hematocrit 34.1 % Mean Corpuscular Volume 87.4 fL Mean Corpuscular Hemoglobin 29.2 pg Mean Corpuscular Hemoglobin Concent 33.4 g/dl Platelet Count 93 K/uL Mean Platelet Volume 11.1 fL Neutrophils (%) (Auto) 79.4 % Lymphocytes (%) (Auto) 7.2 % Monocytes (%) (Auto) 10.2 % Eosinophils (%) (Auto) 2.4 % Basophils (%) (Auto) 0.6 % Neutrophils # (Auto) 6.38 K/uL Lymphocytes # (Auto) 0.58 K/uL Monocytes # (Auto) 0.82 K/uL Eosinophils # (Auto) 0.19 K/uL Basophils # (Auto) 0.05 K/uL HbA1c 08/18/16 HgbA1c = 12.2% Recent Pertinent Medications Outpatient Anti-diabetic Regimen: * Lantus 38 units bid, Novolog 14 units tidm, plus sliding scale * A1c = 12.2 % 08/18/16 The patient is currently receiving: * Basal insulin: Lantus 38 units every 12 hours * Correctional Insulin: none (regular insulin 8 units IV x1) * Prandial insulin: Novolog 14 units tid w/meals Risk Factors for Insulin Resistance: Diet: type 2 diabetic, low sodium Assessment & Plan ASSESSMENT: * ADA & AACE recommend a goal blood sugar range 140-180 mg/dl for the majority of critically ill & non-critically ill patients. However, more stringent targets may be selected in individual cases. * 61 yo type 2 diabetic with hyperglycemia. Well known to glycemic service. Anion gap and BHBA wnl. Will start insulin drip to bring blood sugar down (and continue Lantus tonight), then reassess in am. PLAN FOR INPATIENT GLYCEMIC CONTROL: * Starting IV insulin infusion per moderate stress protocol * Goal Range 150-250 mg/dl * In the critical care setting, continuous IV insulin infusion has been shown to be the best method for achieving glycemic targets. * Basal insulin with LANTUS 38 units SQ BID * Correctional Insulin per insulin rate adjustment calculator * Goal Range: Low 150 mg/dL - High 250 mg/dL Prandial insulin per carb ratio from insulin calculator * Please note that the plan above was derived based on current level of insulin resistance and hospital stress. These recommendations are appropriate for inpatient admission only. Plan of care upon discharge will need to be reassessed to avoid potential outpatient hypo/hyperglycemia. Thank you.
[2016-10-01 22:30] LABS: BUN/CREATININE RATIO 13.7 (10-20); CALCIUM 7.9 mg/dl (8.5-10.1); CREATININE 1.1 mg/dl (0.60-1.40)
[2016-10-01 22:41] LABS: BETA-HYDROXYBUTYRATE 1.46 mg/dL (0.2-2.81)
[2016-10-01 23:49] VITALS: BP 93/57; PULSE 76; TEMP 36.8; O2SAT 97
[2016-10-02] VITALS (8 sets, daily range): BP systolic 101–114; BP diastolic 65–74; PULSE 61–79; TEMP 36.5–36.6; O2SAT 95–99
[2016-10-02] MEDS: INSULIN REGULAR 250 UNITS in SODIUM CHLORIDE 0.9% 250ML 250 ML IV SCH ×8 (00:53→10:50)
[2016-10-02] MEDS: HYDROmorphone HCL 2 MG TAB PO PRN ×3 (00:55→16:11)
[2016-10-02] MEDS: LEVOTHYROXINE 75 MCG TAB PO SCH (05:30)
[2016-10-02 07:21] LABS: BASO % 0.4 %; BASO ABS # 0.04 K/uL (0-0.2); COMPLETE YES; EOS % 5.1 %; HEMATOCRIT 34.3 % (42-52); IG% 0.2 %; LYMPH % 10.9 %; LYMPH ABS # 1.06 K/uL (1.2-3.4); MEAN CELL VOLUME 84.7 fL (80-100); MEAN CORPUSCULAR HEMOGLOBIN 28.6 pg (25-34); MEAN CORPUSCULAR HGB CONC 33.8 g/dl (32-36); MEAN PLATELET VOLUME 10.5 fL (7.4-10.4); MONO % 11.8 %; NEUT % 71.6 %; PLATELET COUNT 115 K/uL (130-400); RED BLOOD COUNT 4.05 M/uL (4.7-6.1); WHITE BLOOD COUNT 9.69 K/uL (4.8-10.8)
[2016-10-02 07:40] LABS: INR 1.2 (0.9-1.1); PARTIAL THROMBOPLASTIN RATIO 1.1; PROTHROMBIN TIME (PATIENT) 13.4 SECONDS (9.0-12.0)
[2016-10-02 07:57] LABS: CALCIUM 8.1 mg/dl (8.5-10.1); CREATININE 0.86 mg/dl (0.60-1.40); MAGNESIUM 2.1 mg/dl (1.8-2.4); POTASSIUM 3.5 mmol/L (3.5-5.1)
[2016-10-02 07:59] LABS: ESTIMATED AVERAGE GLUCOSE 260 mg/dl; HA1C FLAG Normal (Normal)
[2016-10-02 08:00] LABS: ALB/GLOB RATIO 0.8 (0.9-2)
[2016-10-02] MEDS ORDERED: INSULIN ASPART 100 UNITS/ML 3 ML PEN SQ SCH (08:00)
[2016-10-02] MEDS: MAGNESIUM OXIDE 400 MG TAB PO SCH ×2 (08:37→21:19)
[2016-10-02] MEDS: SPIRONOLACTONE 100 MG TAB PO SCH (08:37)
[2016-10-02] MEDS: LACTULOSE SYRUP 20 GM/30 ML UDC PO SCH ×3 (08:37→21:00)
[2016-10-02] MEDS: PROPRANOLOL HCL 10 MG TAB PO SCH ×2 (08:37→21:18)
[2016-10-02] MEDS: FUROSEMIDE 40 MG TAB PO SCH (08:37)
[2016-10-02] MEDS: PANTOprazole SOD 40 MG TAB PO SCH ×2 (08:37→21:18)
[2016-10-02] MEDS: LEVETIRACETAM 500 MG TAB PO SCH ×2 (08:37→21:17)
[2016-10-02] MEDS: INSULIN ASPART 100 UNITS/ML 3 ML PEN SC SCH ×3 (08:41→21:00)
[2016-10-02] MEDS: INSULIN GLARGINE SOLOSTAR 100 UNITS/ML 3 ML PEN SC SCH (08:41)
[2016-10-02] MEDS: POLYETHYLENE (MIRALAX) 17 GM PACK PO SCH ×2 (08:44→21:00)
[2016-10-02] MEDS ORDERED: POLYETHYLENE (MIRALAX) 17 GM PACK ONE (08:44)
[2016-10-02] MEDS: ALBUMIN HUMAN 25% 12.5 GM/50 ML VIAL IV SCH ×4 (10:06→17:02)
--- NOTE | 2016-10-02 10:25 | Pharmacy Progress Note ---
Glycemic Control Progress Note Date of Service Oct 02, 2016. Scope Glycemic Pharmacist consulted for glycemic control to write orders per [facility] inpatient glycemic control protocol. Objective Accuchecks BSG (last 24hrs): Test 10/01/16 16:54 10/01/16 18:22 10/01/16 18:58 10/01/16 19:57 Random Glucose 641 mg/dl (70-99) Bedside Glucose 510 mg/dl (70-99) 510 mg/dl (70-99) 446 mg/dl (70-99) Test 10/01/16 21:45 10/01/16 21:59 10/01/16 22:42 10/01/16 23:44 Bedside Glucose 493 mg/dl (70-99) 439 mg/dl (70-99) 465 mg/dl (70-99) Random Glucose 486 mg/dl (70-99) Test 10/02/16 00:44 10/02/16 01:47 10/02/16 02:47 10/02/16 04:35 Bedside Glucose 388 mg/dl (70-99) 311 mg/dl (70-99) 217 mg/dl (70-99) 157 mg/dl (70-99) Test 10/02/16 05:28 10/02/16 06:26 10/02/16 06:54 10/02/16 07:03 Bedside Glucose 128 mg/dl (70-99) 110 mg/dl (70-99) 148 mg/dl (70-99) Random Glucose 148 mg/dl (70-99) Test 10/02/16 08:13 10/02/16 09:12 Bedside Glucose 193 mg/dl (70-99) 249 mg/dl (70-99) HbA1c: Test 10/02/16 06:54 Hemoglobin A1c 10.7 % (4.5-5.6) H Recent Pertinent Medications The patient is currently receiving: * Insulin drip at 3.1 units/hr * Basal insulin: Lantus 38 units every 12 hours * Prandial insulin: Carb ratio based upon insulin drip calculator Outpatient Anti-Diabetic Meds * Lantus 38 units bid, Novolog 14 units tidm, plus sliding scale Assessment & Plan ASSESSMENT: * See progress note from 10/01 for more background info, in short: * Pt receiving SQ basal + insulin drip for severe hyperglycemia on admission, secondary to baseline DM (outpatient regimen on hold),stress/infection * The plan for today will be to get patient off the insulin drip. Current rates in addition to the basal Lantus dose reflect > 130 units of insulin/day. Based on previous admissions, he usually requires ~100 units/day. I would anticipate insulin drip rates decreasing after AM dose of Lantus today. * Per RN, BSGs have decreased, even after cutting the insulin drip in 1/2. We are most likely seeing the effects of SQ insulin working so will d/c the drip now. He is currently NPO for a paracentesis this afternoon. Will continue the Lantus but place 1/2 dose parameters in case his outpatient dose is too much. Will utilize a similar CF/CR to previous admissions and titrate as needed. PLAN FOR INPATIENT GLYCEMIC CONTROL: * D/C insulin drip * Continue Lantus 38 units BID (give 1/2 dose for BSG less than 100 mg/dL) * Novolog ACHS + 0200 accucheck * Goal 100-140 * CF 15 * CR 4 RECOMMENDATIONS FOR DISCHARGE: * A1c has improved from a month ago but is still elevated * Continue outpatient regimen with close follow-up with outpatient physician Thank you.
--- NOTE | 2016-10-02 16:00 | DIAGNOSTIC IMAGING REPORT ---
PARACENTESIS ABDOMEN W/IMAGING CLINICAL HISTORY: 61 years-old Male with ascites. COMPARISON: Paracentesis 09/27/2016 PROCEDURE: The procedure was explained to the patient in the care including the benefits and possible risks/complications. The patient gave verbal understanding and written consent was obtained. A time-out was performed prior to the start of the procedure. The patient was placed on the ultrasound table in the supine position. Using ultrasound guidance, an appropriate procedure site in the left lower abdomen was marked. This area was then prepped and draped in the usual sterile fashion. Local anesthesia was achieved within 1% lidocaine. An 8-English centesis catheter was then inserted. Approximately 10.5 liters of clear, yellowish fluid was removed and sent to the lab for analysis. The catheter was removed and external pressure was held to achieve hemostasis. A sterile dressing was applied to the procedure site. The patient tolerated the procedure well without immediate complications. IMPRESSION: Successful ultrasound-guided paracentesis with removal of 10.5 L. The above report was generated using voice recognition software. It may contain grammatical, syntax or spelling errors. Electronically signed by: Elia Ramesh M.D. 10/02/2016 3:58 PM Dictated Date/Time: 10/02/2016 3:58 PM
[2016-10-02 17:12] LABS: PERIT FL WBC 78 /uL (0-300); PERITONEAL FLUID RBC < 3000 /uL
--- NOTE | 2016-10-02 18:34 | Progress Note ---
Internal Med Progress Note Date of Service: Oct 02, 2016. Provider Documentation: SUBJECTIVE: The patient was seen and examined Admitted with tense ascites S/P 10.5 Liters paracentesis OBJECTIVE: Vital Signs-as noted below Exam: General-Feels a lot better Eyes-normal ENT-normal Neck-supple Lungs-Clear to ausucltate bilaterally Heart-Regular,no murmur appreciated Abdomen-Benign,no masses,bowel sound present Extremities-No edema Neuro-AAOx3 Lab data as noted below. ASSESSMENT & PLAN: 61 year old M with cirrhosis and recurrent ascites requiring multiple interventions of paracentesis. Not on SBP antibiotic prophylaxis at this time. Has been afebrile. Here in the ED for recurrent abdominal distention. Likely to get IR paracentesis on Sunday10/02/2016. In the ED, found to be hyperglycemic with glucose over 600. Recurrent Ascites secondary to cirrhosis Recent Paracentesis and rapid reaccumulation in a few days S/P 10.5 Liters paracentesis today ,10/02/16 with pre and post Albumin infusion Negative for any SBP Continue home dosed propranolol, lactulose, spirolactone, furosemide Clinically a lot better Diabetes with Hyperglycemia -Beta hydroxybutyric levels within normal limits -Urine ketones -negative -no DKA -received extra Insulin and will consult pharmacy Chronic Pain Has been on Oral Dilaudid Will continue Electrolytes / vitamins -check and replete electrolytes especially vitamin K as patient on insulin and diuretics -continue home dosed magnesium, vitamin B6 DVT Prophylaxis -will give SCD sleeves to legs for DVT prophylaxis as planned paracentesis to be done soon Thyroid Continue home dosed levothyroxine Full Code Likely discharge tomorrow Vital Signs: Date Time Temp Pulse Resp B/P (MAP) Pulse Ox O2 Delivery O2 Flow Rate FiO2 10/02/16 16:02 36.5 61 18 110/74 (86) 99 Room Air 10/02/16 16:00 Room Air 10/02/16 11:51 75 112/70 (84) 10/02/16 10:51 79 108/71 (83) 10/02/16 10:32 78 101/65 (77) 10/02/16 10:05 77 114/69 (84) 10/02/16 08:00 Room Air 10/02/16 07:30 36.6 68 18 106/69 (81) 95 Room Air 10/02/16 00:00 Room Air 10/01/16 23:49 36.8 76 16 93/57 (69) 97 Room Air 10/01/16 21:04 73 128/76 (93) 10/01/16 19:00 36.8 67 18 106/60 (75) 97 Room Air 10/01/16 18:30 80 20 140/75 96 Room Air Lab Results: Results Past 24 Hours Test 10/01/16 18:58 10/01/16 19:57 10/01/16 21:45 10/01/16 21:59 Range/Units Bedside Glucose 510 446 493 70-99 mg/dl Sodium Level 130 136-145 mmol/L Potassium Level 4.0 3.5-5.1 mmol/L Chloride Level 98 98-107 mmol/L Carbon Dioxide Level 25 21-32 mmol/L Anion Gap 7.0 3-11 mmol/L Blood Urea Nitrogen 15 7-18 mg/dl Creatinine 1.10 0.60-1.40 mg/dl Est Creatinine Clear Calc Drug Dose 76.4 ml/min Estimated GFR () 82.9 Estimated GFR (Non- 71.6 BUN/Creatinine Ratio 13.7 10-20 Random Glucose 486 70-99 mg/dl Calcium Level 7.9 8.5-10.1 mg/dl Beta-Hydroxybutyric Acid 1.46 0.2-2.81 mg/dL Test 10/01/16 22:42 10/01/16 23:44 10/02/16 00:00 10/02/16 00:00 Range/Units Bedside Glucose 439 465 70-99 mg/dl Urine Ketones NEG NEG Peritoneal Fluid Color YELLOW Peritoneal Fluid Appearance CLOUDY Peritoneal Fluid WBC 78 0-300 /uL Peritoneal Fluid RBC < 3000 /uL Peritoneal Fld Mononuclear WBCs (%) 86.0 % Peritoneal Fld Polynuclear WBCs (%) 14.0 % Peritoneal Fluid Total Protein 0.8 g/dl Peritoneal Fluid Albumin < 0.6 g/dl Peritoneal Fluid LDH 39 IU Peritoneal Fluid Glucose 213 mg/dl Peritoneal Fluid Amylase 15 U/L Peritoneal Fluid Lipase 98 U/L Peritoneal Fluid Triglycerides 79 mg/dl Test 10/02/16 00:44 10/02/16 01:47 10/02/16 02:47 10/02/16 04:35 Range/Units Bedside Glucose 388 311 217 157 70-99 mg/dl Test 10/02/16 05:28 10/02/16 06:26 10/02/16 06:54 10/02/16 07:03 Range/Units Bedside Glucose 128 110 148 70-99 mg/dl White Blood Count 9.69 4.8-10.8 K/uL Red Blood Count 4.05 4.7-6.1 M/uL Hemoglobin 11.6 14.0-18.0 g/dL Hematocrit 34.3 42-52 % Mean Corpuscular Volume 84.7 80-100 fL Mean Corpuscular Hemoglobin 28.6 25-34 pg Mean Corpuscular Hemoglobin Concent 33.8 32-36 g/dl Platelet Count 115 130-400 K/uL Mean Platelet Volume 10.5 7.4-10.4 fL Neutrophils (%) (Auto) 71.6 % Lymphocytes (%) (Auto) 10.9 % Monocytes (%) (Auto) 11.8 % Eosinophils (%) (Auto) 5.1 % Basophils (%) (Auto) 0.4 % Neutrophils # (Auto) 6.94 1.4-6.5 K/uL Lymphocytes # (Auto) 1.06 1.2-3.4 K/uL Monocytes # (Auto) 1.14 0.11-0.59 K/uL Eosinophils # (Auto) 0.49 0-0.5 K/uL Basophils # (Auto) 0.04 0-0.2 K/uL RDW Standard Deviation 50.0 36.4-46.3 fL RDW Coefficient of Variation 16.1 11.5-14.5 % Immature Granulocyte % (Auto) 0.2 % Immature Granulocyte # (Auto) 0.02 0.00-0.02 K/uL Prothrombin Time 13.4 9.0-12.0 SECONDS Prothromb Time International Ratio 1.2 0.9-1.1 Activated Partial Thromboplast Time 29.4 21.0-31.0 SECONDS Partial Thromboplastin Ratio 1.1 Sodium Level 134 136-145 mmol/L Potassium Level 3.5 3.5-5.1 mmol/L Chloride Level 100 98-107 mmol/L Carbon Dioxide Level 26 21-32 mmol/L Anion Gap 8.0 3-11 mmol/L Blood Urea Nitrogen 14 7-18 mg/dl Creatinine 0.86 0.60-1.40 mg/dl Est Creatinine Clear Calc Drug Dose 97.8 ml/min Estimated GFR () 107.7 Estimated GFR (Non- 92.9 BUN/Creatinine Ratio 16.0 10-20 Random Glucose 148 70-99 mg/dl Estimated Average Glucose 260 mg/dl Hemoglobin A1c 10.7 4.5-5.6 % Calcium Level 8.1 8.5-10.1 mg/dl Magnesium Level 2.1 1.8-2.4 mg/dl Total Bilirubin 2.5 0.2-1 mg/dl Aspartate Amino Transf (AST/SGOT) 27 15-37 U/L Alanine Aminotransferase (ALT/SGPT) 19 12-78 U/L Alkaline Phosphatase 111 45-117 U/L Total Protein 5.8 6.4-8.2 gm/dl Albumin 2.6 3.4-5.0 gm/dl Globulin 3.2 2.5-4.0 gm/dl Albumin/Globulin Ratio 0.8 0.9-2 Test 10/02/16 08:13 10/02/16 09:12 10/02/16 10:17 10/02/16 11:54 Range/Units Bedside Glucose 193 249 173 74 70-99 mg/dl Test 10/02/16 12:15 10/02/16 14:29 10/02/16 14:50 10/02/16 16:36 Range/Units Bedside Glucose 73 56 99 64 70-99 mg/dl Test 10/02/16 16:58 Range/Units Bedside Glucose 94 70-99 mg/dl Microbiology Results 10/02/16 Acid Fast Stain, Received Pending 10/02/16 Mycobacterial Culture, Received Pending 10/02/16 Gram Stain, Received Pending 10/02/16 Bacterial Culture, Received Pending
[2016-10-02] MEDS ORDERED: INSULIN GLARGINE SOLOSTAR 100 UNITS/ML 3 ML PEN SC SCH (21:00)
[2016-10-02] MEDS: PYRIDOXINE HCL 50 MG TAB PO SCH (21:19)
[2016-10-02] MEDS: ONDANSETRON INJ 2 MG/ML 2 ML VIAL IV PRN (21:22)
[2016-10-03] MEDS ORDERED: INSULIN ASPART 100 UNITS/ML 3 ML PEN SC ONE (02:00)
[2016-10-03] MEDS: LEVOTHYROXINE 75 MCG TAB PO SCH (06:24)
[2016-10-03 07:46] LABS: HEMATOCRIT 37.9 % (42-52); MEAN CELL VOLUME 85.2 fL (80-100); MEAN CORPUSCULAR HEMOGLOBIN 28.8 pg (25-34); MEAN CORPUSCULAR HGB CONC 33.8 g/dl (32-36); MEAN PLATELET VOLUME 10.8 fL (7.4-10.4); PLATELET COUNT 158 K/uL (130-400); RED BLOOD COUNT 4.45 M/uL (4.7-6.1); WHITE BLOOD COUNT 9.33 K/uL (4.8-10.8)
[2016-10-03] MEDS: LACTULOSE SYRUP 20 GM/30 ML UDC PO SCH ×3 (07:56→21:23)
[2016-10-03] MEDS: FUROSEMIDE 40 MG TAB PO SCH (07:57)
[2016-10-03] MEDS: PROPRANOLOL HCL 10 MG TAB PO SCH ×2 (07:57→21:24)
[2016-10-03] MEDS: MAGNESIUM OXIDE 400 MG TAB PO SCH ×2 (07:57→21:24)
[2016-10-03] MEDS: LEVETIRACETAM 500 MG TAB PO SCH ×2 (07:57→21:24)
[2016-10-03] MEDS: SPIRONOLACTONE 100 MG TAB PO SCH (07:57)
[2016-10-03] MEDS: PANTOprazole SOD 40 MG TAB PO SCH ×2 (07:57→21:24)
[2016-10-03] MEDS: POLYETHYLENE (MIRALAX) 17 GM PACK PO SCH ×2 (07:58→21:24)
[2016-10-03] MEDS: HYDROmorphone HCL 2 MG TAB PO PRN ×3 (08:04→22:04)
[2016-10-03 08:08] VITALS: BP 99/54; PULSE 69; TEMP 36.3; O2SAT 94
[2016-10-03 08:11] LABS: BUN/CREATININE RATIO 17.6 (10-20); CALCIUM 8.4 mg/dl (8.5-10.1); CREATININE 0.68 mg/dl (0.60-1.40); MAGNESIUM 2.2 mg/dl (1.8-2.4); POTASSIUM 3.6 mmol/L (3.5-5.1)
[2016-10-03 08:12] LABS: PHOSPHORUS 3.7 mg/dl (2.5-4.9)
[2016-10-03] MEDS: INSULIN ASPART 100 UNITS/ML 3 ML PEN SC SCH ×4 (08:53→21:30)
[2016-10-03] MEDS ORDERED: INSULIN GLARGINE SOLOSTAR 100 UNITS/ML 3 ML PEN SC ONE (09:00)
[2016-10-03] MEDS ORDERED: INSULIN GLARGINE SOLOSTAR 100 UNITS/ML 3 ML PEN SC SCH ×2 (09:00→21:00)
--- NOTE | 2016-10-03 10:24 | Pharmacy Progress Note ---
Glycemic Control Progress Note Date of Service Oct 03, 2016. Scope Glycemic Pharmacist consulted for glycemic control to write orders per [facility] inpatient glycemic control protocol. Objective Accuchecks BSG (last 24hrs): Test 10/02/16 10:17 10/02/16 11:54 10/02/16 12:15 10/02/16 14:29 Bedside Glucose 173 mg/dl (70-99) 74 mg/dl (70-99) 73 mg/dl (70-99) 56 mg/dl (70-99) Test 10/02/16 14:50 10/02/16 16:36 10/02/16 16:58 10/02/16 20:08 Bedside Glucose 99 mg/dl (70-99) 64 mg/dl (70-99) 94 mg/dl (70-99) 119 mg/dl (70-99) Test 10/03/16 01:53 10/03/16 07:07 10/03/16 08:27 Bedside Glucose 130 mg/dl (70-99) 80 mg/dl (70-99) Random Glucose 53 mg/dl (70-99) HbA1c: Test 10/02/16 06:54 Hemoglobin A1c 10.7 % (4.5-5.6) H Recent Pertinent Medications The patient is currently receiving: * Basal insulin: Lantus 38 units every 12 hours * Correctional/Prandial insulin: 15 mg/dL/unit / 1 unit per 5 gm CHO consumed Outpatient Anti-Diabetic Meds Lantus 38 units BID (most recently increased from 30 units BID) Novolog 14 units TIDM, plus sliding scale Assessment & Plan ASSESSMENT: * See progress note from 10/02 for more background info, in short: * Pt receiving SQ basal + insulin drip for severe hyperglycemia on admission, secondary to baseline DM (outpatient regimen on hold),stress/infection * Patient is currently receiving an average of 100 units of insulin per day * 76 units of basal insulin * BSGs ranging 53-119 over the past 24hrs * Risk factors for insulin resistance are constant over the past 24hrs * Anticipating insulin regimen will need decreased for the next 24hrs d/t : * AM Fasting BSG = 53 and total daily dose = 100, indicating that regimen is very heavily weighted on basal insulin. Since he already received 38 units last evening, will reduce this AM dose to 20 units, then start 25 units BID tonight for an est basal requirement of 50 units/day. * Will also loosen the CR this AM since he has the higher Lantus dose on board. This may need tightened tomorrow depending on BSGs. PLAN FOR INPATIENT GLYCEMIC CONTROL: * Decrease Lantus to 20 units this AM, then 25 units BID * Continue Novolog ACHS * Goal 110-140 * CF 15 * LOOSEN CR to 6 RECOMMENDATIONS FOR DISCHARGE: * A1c has improved from a month ago but is still elevated * Continue outpatient regimen with close follow-up with outpatient physician Thank you.
[2016-10-03] MEDS: ONDANSETRON INJ 2 MG/ML 2 ML VIAL IV PRN ×2 (11:42→17:45)
[2016-10-03 15:26] VITALS: BP 106/65; PULSE 66; TEMP 36.7; O2SAT 98
--- NOTE | 2016-10-03 17:31 | Progress Note ---
Medicine Progress Note Date & Time of Visit: Oct 03, 2016 at 17:22. Subjective Pt was seen and examined Lying in bed with no distress Pt said that he feels sick he said that since he had 10L fluid removed yesterday he feels weak denies any chest pain, palpitation, dizziness Objective Last 8 Hrs Date Time Temp Pulse Resp B/P (MAP) Pulse Ox O2 Delivery O2 Flow Rate FiO2 10/03/16 16:07 Room Air 10/03/16 15:26 36.7 66 17 106/65 (79) 98 Room Air Physical Exam: General- No acute distress Head- atraumatic Eyes- PERRL, EOMI ENT- oropharynx clear Neck- supple, no JVD Lungs- clear to auscultation Heart- regular rhythm Abdomen- normal bowel sounds, nontender,+abdominal hernial Extremities- no calf tenderness Neuro- alert, oriented x 3; PERRL, EOMI; no facial palsy Skin- warm & dry Laboratory Results: Last 24 Hours Test 10/02/16 20:08 10/03/16 01:53 10/03/16 07:07 10/03/16 07:47 Bedside Glucose 119 mg/dl 130 mg/dl 56 mg/dl White Blood Count 9.33 K/uL Red Blood Count 4.45 M/uL Hemoglobin 12.8 g/dL Hematocrit 37.9 % Mean Corpuscular Volume 85.2 fL Mean Corpuscular Hemoglobin 28.8 pg Mean Corpuscular Hemoglobin Concent 33.8 g/dl RDW Standard Deviation 51.1 fL RDW Coefficient of Variation 16.2 % Platelet Count 158 K/uL Mean Platelet Volume 10.8 fL Sodium Level 138 mmol/L Potassium Level 3.6 mmol/L Chloride Level 104 mmol/L Carbon Dioxide Level 26 mmol/L Anion Gap 8.0 mmol/L Blood Urea Nitrogen 12 mg/dl Creatinine 0.68 mg/dl Est Creatinine Clear Calc Drug Dose 123.7 ml/min Estimated GFR () 118.6 Estimated GFR (Non- 102.4 BUN/Creatinine Ratio 17.6 Random Glucose 53 mg/dl Calcium Level 8.4 mg/dl Phosphorus Level 3.7 mg/dl Magnesium Level 2.2 mg/dl Test 10/03/16 08:27 10/03/16 11:34 10/03/16 15:30 Bedside Glucose 80 mg/dl 202 mg/dl 203 mg/dl Date/Time Source Procedure Growth Status 10/02/16 19:00 Stool C.difficile Toxin B Gene (PCR) - Final No C. difficile toxin B gene detected Complete Assessment & Plan Recurrent Ascites secondary to cirrhosis Recent Paracentesis and rapid reaccumulation in a few days S/P 10.5 Liters removed yesterday (10/02/16) with pre and post Albumin infusion Negative for any SBP Continue home dosed propranolol, lactulose, spirolactone, furosemide Clinically a lot better Diabetes with Hyperglycemia -Beta hydroxybutyric levels within normal limits -Urine ketones -negative -no DKA -received extra Insulin and will consult pharmacy Chronic Pain Has been on Oral Dilaudid Will continue Electrolytes / vitamins -check and replete electrolytes especially vitamin K as patient on insulin and diuretics -continue home dosed magnesium, vitamin B6 DVT Prophylaxis On SCD sleeves to legs for DVT prophylaxis as planned paracentesis to be done soon Thyroid Continue home dosed levothyroxine Full Code Current Inpatient Medications: Current Inpatient Medications Medications (Trade) Dose Ordered Sig/Ryan Route Start Time Stop Time Status Last Admin Dose Admin Furosemide (Lasix Tab) 40 mg DAILY PO 10/02/16 09:00 11/01/16 08:59 10/03/16 07:57 40 MG Glucose (Glucose 40% Gel) 15-30 GRAMS 15 GRAMS... UD PRN PO 10/01/16 18:00 10/31/16 17:59 Glucose (Glucose Chew Tab) 4-8 Tablets 4 Tabl... UD PRN PO 10/01/16 18:00 10/31/16 17:59 Dextrose (Dextrose 50% 50ML Syringe) 25-50ML OF 50% DW IV FOR... UD PRN IV 10/01/16 18:00 10/31/16 17:59 10/02/16 14:54 25 ML Glucagon (Glucagon Inj) 1 mg UD PRN SQ 10/01/16 18:00 10/31/16 17:59 Levetiracetam (Keppra Tab) 500 mg BID PO 10/01/16 21:00 10/31/16 20:59 10/03/16 07:57 500 MG Levothyroxine Sodium (Synthroid Tab) 75 mcg DAILYBB PO 10/02/16 06:30 11/01/16 06:29 10/03/16 06:24 75 MCG Magnesium Oxide (Mag-Ox Tab) 400 mg BID PO 10/01/16 21:00 10/31/16 20:59 10/03/16 07:57 400 MG Pantoprazole Sodium (Protonix Tab) 40 mg BID PO 10/01/16 21:00 10/31/16 20:59 10/03/16 07:57 40 MG Propranolol HCl (Inderal Tab) 10 mg BID PO 10/01/16 21:00 10/31/16 20:59 10/03/16 07:57 10 MG Spironolactone (Aldactone Tab) 100 mg DAILY PO 10/02/16 09:00 11/01/16 08:59 10/03/16 07:57 100 MG Polyethylene (Miralax Powder Packet) 17 gm BID PO 10/01/16 21:00 10/31/16 20:59 10/03/16 07:58 17 GM Pyridoxine HCl (Vitamin B-6 Tab) 25 mg HS PO 10/01/16 21:00 10/31/16 20:59 10/02/16 21:19 25 MG Lactulose (Chronulac Syrup) 20 gm TID PO 10/01/16 21:00 10/31/16 20:59 10/03/16 13:34 20 GM Miscellaneous Information (Consult Glycemic Management Pharmacy) 1 ea UD PRN N/A 10/01/16 20:00 10/31/16 19:59 Hydromorphone HCl (Dilaudid Tab) 4 mg TID PRN PO 10/02/16 00:45 10/16/16 00:44 10/03/16 13:40 4 MG Insulin Aspart (novoLOG ASPART) SLIDING SCALE ACHS SC 10/02/16 16:30 11/01/16 16:29 10/03/16 13:38 9 UNITS Ondansetron HCl (Zofran Inj) 4 mg Q6H PRN IV 10/02/16 20:45 11/01/16 20:44 10/03/16 11:42 4 MG Insulin Glargine (Lantus Solostar Pen) 25 units BID SC 10/03/16 21:00 11/02/16 20:59
[2016-10-03] MEDS: PYRIDOXINE HCL 50 MG TAB PO SCH (21:24)
[2016-10-04 00:28] VITALS: BP 89/52; PULSE 67; TEMP 36.8; O2SAT 98
[2016-10-04] MEDS: ONDANSETRON INJ 2 MG/ML 2 ML VIAL IV PRN ×2 (03:26→09:56)
[2016-10-04] MEDS: LEVOTHYROXINE 75 MCG TAB PO SCH (05:40)
[2016-10-04 05:46] VITALS: BP 91/50; PULSE 67
[2016-10-04] MEDS: HYDROmorphone HCL 2 MG TAB PO PRN ×2 (05:49→13:35)
[2016-10-04 08:08] VITALS: BP 110/62; PULSE 65; TEMP 36.8; O2SAT 95
[2016-10-04] MEDS ORDERED: INSULIN GLARGINE SOLOSTAR 100 UNITS/ML 3 ML PEN SC SCH (09:00)
[2016-10-04] MEDS: FUROSEMIDE 40 MG TAB PO SCH (09:40)
[2016-10-04] MEDS: SPIRONOLACTONE 100 MG TAB PO SCH (09:40)
[2016-10-04] MEDS: PROPRANOLOL HCL 10 MG TAB PO SCH (09:41)
[2016-10-04] MEDS: MAGNESIUM OXIDE 400 MG TAB PO SCH (09:41)
[2016-10-04] MEDS: PANTOprazole SOD 40 MG TAB PO SCH (09:41)
[2016-10-04] MEDS: LEVETIRACETAM 500 MG TAB PO SCH (09:41)
[2016-10-04] MEDS: POLYETHYLENE (MIRALAX) 17 GM PACK PO SCH (09:42)
[2016-10-04] MEDS: LACTULOSE SYRUP 20 GM/30 ML UDC PO SCH ×2 (09:42→13:35)
[2016-10-04] MEDS: INSULIN ASPART 100 UNITS/ML 3 ML PEN SC SCH ×2 (09:57→12:36)
--- NOTE | 2016-10-04 11:10 | Pharmacy Progress Note ---
Glycemic Control Progress Note Date of Service Oct 04, 2016. Scope Glycemic Pharmacist consulted for glycemic control to write orders per [facility] inpatient glycemic control protocol. Objective Accuchecks BSG (last 24hrs): Test 10/03/16 11:34 10/03/16 15:30 10/03/16 20:24 10/04/16 07:52 Bedside Glucose 202 mg/dl (70-99) 203 mg/dl (70-99) 198 mg/dl (70-99) 176 mg/dl (70-99) HbA1c: Test 10/02/16 06:54 Hemoglobin A1c 10.7 % (4.5-5.6) H Recent Pertinent Medications The patient is currently receiving: * Basal insulin: Lantus 25 units every 12 hours * Correctional Insulin: Novolog Correction per scale ACHS Goal Range: Low 110 mg/dL - High 140 mg/dL Correction Factor: 15 mg/dL/unit * Prandial insulin: Per carb ratio of 1 unit per 4 grams CHO consumed Outpatient Anti-Diabetic Meds Basal Insulin Bolus Insulin Assessment & Plan ASSESSMENT: * See progress note from 10/03/16 for more background info, in short: * Pt receiving SQ basal bolus insulin regimen for hyperglycemia secondary to baseline DM * Patient is currently receiving an average of 73-100 units of insulin per day * ~ 45 units of basal insulin * 28 units of prandial/correctional insulin * BSGs ranging 80 - 203 mg/dl over the past 24hrs * Changes needed to insulin regimen: * AM Fasting BSG = 176 mg/dl. This is in slightly above goal range for patient based on inpatient targets and co-morbidities. Therefore Basal insulin needs increased. Basal insulin decreased yesterday secondary to "lower" AM fasting BSG of 80mg/dl. Pt now with rebound hyperglycemia. * Post-prandial BSGs are slightly elevated but are holding steady. CF/CR likely appropriate but baseline BSG is elevated secondary to insufficient basal insulin dosing PLAN FOR INPATIENT GLYCEMIC CONTROL: * Basal insulin: increase slightly * Lantus 30 units SQ BID * Bolus insulin: no change * NovoLog per scale ACHS or Q6hrs while NPO * Goal Range: Low 110 mg/dL - High 140 mg/dL * Correction Factor: 15 mg/dL/unit * Nutritional / Prandial insulin per carb ratio of 1 unit per 4 grams CHO consumed * Please note that the plan above was derived based on current level of insulin resistance and hospital stress. These recommendations are appropriate for inpatient admission only. Plan of care upon discharge will need to be reassessed to avoid potential outpatient hypo/hyperglycemia. Thank you.
--- NOTE | 2016-10-04 13:45 | Progress Note ---
Medicine Progress Note Date & Time of Visit: Oct 04, 2016 at 13:38. Subjective Pt was seen and examined Lying in bed with no distress Pt said that he feels the same Denies any chest pain, palpitation, dizziness and SOB Objective Last 8 Hrs Date Time Temp Pulse Resp B/P (MAP) Pulse Ox O2 Delivery O2 Flow Rate FiO2 10/04/16 08:08 36.8 65 16 110/62 (78) 95 Room Air 10/04/16 08:00 Room Air 10/04/16 05:46 67 91/50 (64) Physical Exam: General- No acute distress Head- atraumatic Eyes- PERRL, EOMI ENT- oropharynx clear Neck- supple, no JVD Lungs- clear to auscultation Heart- regular rhythm Abdomen- normal bowel sounds, nontender,+abdominal hernial Extremities- no calf tenderness Neuro- alert, oriented x 3; PERRL, EOMI; no facial palsy Skin- warm & dry Laboratory Results: Last 24 Hours Test 10/03/16 15:30 10/03/16 20:24 10/04/16 07:52 10/04/16 11:20 Bedside Glucose 203 mg/dl 198 mg/dl 176 mg/dl 111 mg/dl Assessment & Plan Recurrent Ascites secondary to cirrhosis Recent Paracentesis and rapid reaccumulation in a few days S/P 10.5 Liters fluid removed on (10/02/16) with pre and post Albumin infusion Negative for any SBP Continue home dosed propranolol, lactulose, spirolactone, furosemide Clinically a lot better Diabetes with Hyperglycemia -Beta hydroxybutyric levels within normal limits -Urine ketones -negative -no DKA -received extra Insulin and will consult pharmacy Chronic Pain Has been on Oral Dilaudid Will continue Electrolytes / vitamins -check and replete electrolytes especially vitamin K as patient on insulin and diuretics -continue home dosed magnesium, vitamin B6 DVT Prophylaxis On SCD sleeves to legs for DVT prophylaxis as planned paracentesis to be done soon Thyroid Continue home dosed levothyroxine Full Code Discharge Will discharge home today Current Inpatient Medications: Current Inpatient Medications Medications (Trade) Dose Ordered Sig/Ryan Route Start Time Stop Time Status Last Admin Dose Admin Furosemide (Lasix Tab) 40 mg DAILY PO 10/02/16 09:00 11/01/16 08:59 10/04/16 09:40 40 MG Glucose (Glucose 40% Gel) 15-30 GRAMS 15 GRAMS... UD PRN PO 10/01/16 18:00 10/31/16 17:59 Glucose (Glucose Chew Tab) 4-8 Tablets 4 Tabl... UD PRN PO 10/01/16 18:00 10/31/16 17:59 Dextrose (Dextrose 50% 50ML Syringe) 25-50ML OF 50% DW IV FOR... UD PRN IV 10/01/16 18:00 10/31/16 17:59 10/02/16 14:54 25 ML Glucagon (Glucagon Inj) 1 mg UD PRN SQ 10/01/16 18:00 10/31/16 17:59 Levetiracetam (Keppra Tab) 500 mg BID PO 10/01/16 21:00 10/31/16 20:59 10/04/16 09:41 500 MG Levothyroxine Sodium (Synthroid Tab) 75 mcg DAILYBB PO 10/02/16 06:30 11/01/16 06:29 10/04/16 05:40 75 MCG Magnesium Oxide (Mag-Ox Tab) 400 mg BID PO 10/01/16 21:00 10/31/16 20:59 10/04/16 09:41 400 MG Pantoprazole Sodium (Protonix Tab) 40 mg BID PO 10/01/16 21:00 10/31/16 20:59 10/04/16 09:41 40 MG Propranolol HCl (Inderal Tab) 10 mg BID PO 10/01/16 21:00 10/31/16 20:59 10/04/16 09:41 10 MG Spironolactone (Aldactone Tab) 100 mg DAILY PO 10/02/16 09:00 11/01/16 08:59 10/04/16 09:40 100 MG Polyethylene (Miralax Powder Packet) 17 gm BID PO 10/01/16 21:00 10/31/16 20:59 10/03/16 21:24 17 GM Pyridoxine HCl (Vitamin B-6 Tab) 25 mg HS PO 10/01/16 21:00 10/31/16 20:59 10/03/16 21:24 25 MG Lactulose (Chronulac Syrup) 20 gm TID PO 10/01/16 21:00 10/31/16 20:59 10/03/16 21:23 20 GM Miscellaneous Information (Consult Glycemic Management Pharmacy) 1 ea UD PRN N/A 10/01/16 20:00 10/31/16 19:59 Hydromorphone HCl (Dilaudid Tab) 4 mg TID PRN PO 10/02/16 00:45 10/16/16 00:44 10/04/16 13:35 4 MG Insulin Aspart (novoLOG ASPART) SLIDING SCALE ACHS SC 10/02/16 16:30 11/01/16 16:29 10/04/16 12:36 9 UNITS Ondansetron HCl (Zofran Inj) 4 mg Q6H PRN IV 10/02/16 20:45 11/01/16 20:44 10/04/16 09:56 4 MG Insulin Glargine (Lantus Solostar Pen) 30 units BID SC 10/04/16 09:00 11/03/16 08:59 10/04/16 09:57 30 UNITS
--- NOTE | 2016-10-04 14:09 | Discharge Instructions ---
Discharge Instructions Date of Service Oct 04, 2016. Admission Reason for Admission: Ascites, Dm2, End Stage Liver Disease, Discharge Discharge Diagnosis / Problem: Recurrent Ascites secondary to cirrhosis Discharge Goals Goal(s): Decrease discomfort, Improve function, Improve disease control Activity Recommendations Activity Limitations: resume your previous activity (as tolerated) Instructions / Follow-Up Instructions / Follow-Up Discharge home with home health services Follow up with your primary care provider Dr. Munoz on Sun 6 @ 11:05 Continue follow with pain management Encourage to get outpatient paracentesis done Limited fluid intake Follow a low salt diet and limited concentrated sugar intake Monitor your blood sugar Fall precaution . Current Hospital Diet Patient's current hospital diet: Low Sodium Diet (2gm Na), Diabetes Type 2 Diet Discharge Diet Recommended Diet: Low Sodium Diet (2gm Na), Diabetes Type 2 Diet Pending Studies Studies pending at discharge: no Laboratory Results Hemoglobin A1c Test 10/02/16 06:54 Range/Units Estimated Average Glucose 260 mg/dl Hemoglobin A1c 10.7 H 4.5-5.6 % Medical Emergencies . Who to Call and When: Medical Emergencies: If at any time you feel your situation is an emergency, please call 911 immediately. . Non-Emergent Contact Non-Emergency issues call your: Primary Care Provider Call Non-Emergent contact if: you have a fever, you have any medication questions . . "Provider Documentation" section prepared by Shiva French. . VTE Core Measure Inpt VTE Proph given/why not?: SCD's [place] Drug Monitoring Program Search Results: patient reviewed within database (Last narcotic script was on for 30 days supply)
[2016-10-04 14:18] VITALS: BP 110/62; PULSE 65; TEMP 36.8; O2SAT 95
--- NOTE | 2016-10-08 15:19 | Discharge Summary ---
Discharge Summary Date of Service Oct 08, 2016. Discharge Summary Admission Date: Oct 01, 2016 at 17:35 Discharge Date: Oct 04, 2016 Discharge Disposition: Home with services Principal Diagnosis: Recurrent Ascites secondary to cirrhosis Secondary Diagnoses/Problems: Diabetes with Hyperglycemia End Stage Liver Disease Chronic Pain Electrolytes / vitamins Procedures: [~ rep ct add3]] PARACENTESIS ABDOMEN W/IMAGING CLINICAL HISTORY: 61 years-old Male with ascites. COMPARISON: Paracentesis 09/27/2016 PROCEDURE: The procedure was explained to the patient in the care including the benefits and possible risks/complications. The patient gave verbal understanding and written consent was obtained. A time-out was performed prior to the start of the procedure. The patient was placed on the ultrasound table in the supine position. Using ultrasound guidance, an appropriate procedure site in the left lower abdomen was marked. This area was then prepped and draped in the usual sterile fashion. Local anesthesia was achieved within 1% lidocaine. An 8-[place]an centesis catheter was then inserted. Approximately 10.5 liters of clear, yellowish fluid was removed and sent to the lab for analysis. The catheter was removed and external pressure was held to achieve hemostasis. A sterile dressing was applied to the procedure site. The patient tolerated the procedure well without immediate complications. IMPRESSION: Successful ultrasound-guided paracentesis with removal of 10.5 L. The above report was generated using voice recognition software. It may contain grammatical, syntax or spelling errors. Electronically signed by: Elia Ramesh M.D. 10/02/2016 3:58 PM Dictated Date/Time: 10/02/2016 3:58 PM Medication Reconciliation Continued Medications: Diphenhydramine Hcl (Benadryl) 25 Mg Cap 25 MG PO BID PRN for Itching Escitalopram Oxalate (Lexapro) 20 Mg Tab 20 MG PO DAILY, TAB Ferrous Sulfate (Kp Ferrous Sulfate) 325 Mg Tab 325 MG PO BID, TAB Furosemide (Lasix) 40 Mg Tab 40 MG PO DAILY, TAB Hydromorphone Hcl (Dilaudid) 4 Mg Tab 4 MG PO TID PRN for Pain, TAB Insulin Aspart (Novolog) 100 Units/Ml Inj 14 UNITS SQ TIDM PLUS SLIDING SCALE Insulin Glargine (Lantus) 100 Unit/Ml Inj 38 UNITS SC BID Lactulose (Chronulac) 10 Gm/15 Ml Syrp 20 GM PO TID Levetiractam (Levetiracetam) 500 Mg Tab 500 MG PO BID Levothyroxine Sodium (Synthroid) 75 Mcg Tab 75 MCG PO QAM Magnesium Oxide (Mag-Ox) 400 Mg Tab 400 MG PO BID Ondasetron Odt (Zofran Odt) 4 Mg Tab 4 MG SL Q6H PRN for Nausea or Vomiting, TAB Pantoprazole (Protonix) 40 Mg Tab 40 MG PO BID, TAB Polyethylene Glycol 3350 (Miralax) 1 Pow Pow 17 GM PO BID Propranolol (Inderal) 10 Mg Tab 10 MG PO BID, TAB Pyridoxine Hcl (Vitamin B-6) 25 Mg Tab 25 MG PO HS Spironolactone (Aldactone) 100 Mg Tab 100 MG PO DAILY Triamcinolone Acet (Aristocort 0.1%) 90 Appln/30 Gm Cr 1 APPL EXT BID PRN for dermatitis Discontinued Medications: Cephalexin Monohydrate (Keflex) 500 Mg Cap 500 MG PO QID, #40 CAP Admission Information HPI (per Admitting provider): This is a 61 year old M with history of cirrhosis with multiple hospital presentations for ascites requiring paracentesis. Patient estimates that he has more than 50 paracentesis before in his life time and his symptoms have been present for at least 3 years. Patient last had paracentesis around 1 week ago for which he reports 5 to 10 liters of ascites fluid removed and required albumin transfusion subsequently. Patient also reports that he is following with doctors in [place], [place] whether he is candidate for TIPs versus liver transplant. Patient also taking medications for thyroid dysfunction, seizure and encephalopathy prophylaxis, and insulin for diabetes. Patient also found to be hyperglycemic with glucose over 600. He is awake, alert, and oriented on exam in the ED with very distended abdomen. Physical Exam (per Admitting): General Appearance: no apparent distress Head: normocephalic, atraumatic Eyes: normal inspection, PERRL, EOMI ENT: hearing grossly normal, pharynx normal Neck: supple, no JVD, trachea midline Respiratory/Chest: chest non-tender, lungs clear, normal breath sounds, no respiratory distress, no accessory muscle use Cardiovascular: regular rate, rhythm, no edema, no JVD, normal peripheral pulses Abdomen/GI: + distended Extremities/Musculoskelatal: normal inspection, no calf tenderness, normal capillary refill, no pedal edema Neurologic/Psych: alert, normal mood/affect, oriented x 3 Skin: normal color, warm/dry, no rash Hospital Course Recurrent Ascites secondary to cirrhosis Recent Paracentesis and rapid reaccumulation in a few days S/P 10.5 Liters fluid removed on (10/02/16) with pre and post Albumin infusion Negative for any SBP Continue home dosed propranolol, lactulose, spirolactone, furosemide Clinically a lot better Diabetes with Hyperglycemia -Beta hydroxybutyric levels within normal limits -Urine ketones -negative -no DKA -received extra Insulin and will consult pharmacy Chronic Pain Has been on Oral Dilaudid Will continue Electrolytes / vitamins -check and replete electrolytes especially vitamin K as patient on insulin and diuretics -continue home dosed magnesium, vitamin B6 DVT Prophylaxis On SCD sleeves to legs for DVT prophylaxis as planned paracentesis to be done soon Thyroid Continue home dosed levothyroxine Full Code Discharge Will discharge home today Total time spent on discharge = 35 minutes This includes examination of the patient, discharge planning, medication reconciliation, and communication with other providers. Discharge Instructions Discharge Instructions Date of Service Oct 04, 2016. Admission Reason for Admission: Ascites, Dm2, End Stage Liver Disease, Discharge Discharge Diagnosis / Problem: Recurrent Ascites secondary to cirrhosis Discharge Goals Goal(s): Decrease discomfort, Improve function, Improve disease control Activity Recommendations Activity Limitations: resume your previous activity (as tolerated) Instructions / Follow-Up Instructions / Follow-Up Discharge home with home health services Follow up with your primary care provider Dr. Munoz on Sun 6 @ 11:05 Continue follow with pain management Encourage to get outpatient paracentesis done Limited fluid intake Follow a low salt diet and limited concentrated sugar intake Monitor your blood sugar Fall precaution . Current Hospital Diet Patient's current hospital diet: Low Sodium Diet (2gm Na), Diabetes Type 2 Diet Discharge Diet Recommended Diet: Low Sodium Diet (2gm Na), Diabetes Type 2 Diet Pending Studies Studies pending at discharge: no Laboratory Results Hemoglobin A1c Test 10/02/16 06:54 Range/Units Estimated Average Glucose 260 mg/dl Hemoglobin A1c 10.7 H 4.5-5.6 % Medical Emergencies . Who to Call and When: Medical Emergencies: If at any time you feel your situation is an emergency, please call 911 immediately. . Non-Emergent Contact Non-Emergency issues call your: Primary Care Provider Call Non-Emergent contact if: you have a fever, you have any medication questions . . "Provider Documentation" section prepared by Shiva French. . VTE Core Measure Inpt VTE Proph given/why not?: SCD's [place] Drug Monitoring Program Search Results: patient reviewed within database (Last narcotic script was on for 30 days supply) Additional Copies To Chacha Munoz D.O.
[2016-10-28] MEDS ORDERED: XFX550 PO (14:18)
[2016-11-06] MEDS ORDERED: LCTX PO (14:29)
[2016-11-06] MEDS ORDERED: CLIN300C2 PO (14:29)
[2016-11-18] MEDS ORDERED: CLIN300C2 PO (10:23)
== END 2016-10-04 14:29 | disposition home health service (06) | DRG 442 ==
LOC: C.EDB 15:48 → C.MS2W 17:35 → ENRESERV 18:02
PROVIDERS: ADMIT Hospitalist; ATTEND Internal Medicine
PROC: 0W9G3ZX Drainage of Peritoneal Cavity, Percutaneous Approach, Diagnostic (ICD-10-PCS; principal; 2016-10-02)
DX: K75.81 Nonalcoholic steatohepatitis (NASH) (principal); R18.8 Other ascites; K76.6 Portal hypertension; E11.65 Type 2 diabetes mellitus with hyperglycemia; E78.5 Hyperlipidemia, unspecified; E03.9 Hypothyroidism, unspecified; K76.89 Other specified diseases of liver; K72.90 Hepatic failure, unspecified without coma; G89.29 Other chronic pain; R06.00 Dyspnea, unspecified; F32.9 Major depressive disorder, single episode, unspecified; F41.9 Anxiety disorder, unspecified; Z86.718 Personal history of other venous thrombosis and embolism; Z98.1 Arthrodesis status; Z86.79 Personal history of other diseases of the circulatory system; Z95.828 Presence of other vascular implants and grafts; Z87.19 Personal history of other diseases of the digestive system; Z79.899 Other long term (current) drug therapy; Z79.4 Long term (current) use of insulin; Z79.891 Long term (current) use of opiate analgesic; Z86.69 Personal history of other diseases of the nervous system and sense organs

== ENCOUNTER 2016-10-06 02:34 | Emergency (ER) | payer OTHER ==
[~2016-10-06 02:34] MED LIST changes: -CEPH500C2 PO; -ESCI10TA17 PO; +ESCI1TAB10 PO; -RIFA550T2 PO; -SULF800T23 PO
[2016-10-06 02:40] VITALS: TEMP 36.9
[2016-10-06 02:55] VITALS: O2SAT 100
[2016-10-06] MEDS ORDERED: CEFTRIAXONE SOD INJ 1 GM ADDVIAL IV STA (03:24)
[2016-10-06] MEDS ORDERED: CEFTRIAXONE SOD INJ 2,000 MG in DEXTROSE 5% 50ML 50 ML IV STA (03:27)
[2016-10-06 03:31] LABS: BASO % 0.2 %; BASO ABS # 0.02 K/uL (0-0.2); COMPLETE YES; EOS % 0.9 %; HEMATOCRIT 35.8 % (42-52); IG% 0.3 %; LYMPH % 7.9 %; LYMPH ABS # 0.72 K/uL (1.2-3.4); MEAN CELL VOLUME 85.6 fL (80-100); MEAN CORPUSCULAR HEMOGLOBIN 28.2 pg (25-34); MEAN PLATELET VOLUME 10.8 fL (7.4-10.4); MONO % 10.4 %; NEUT % 80.3 %; PLATELET COUNT 103 K/uL (130-400); RED BLOOD COUNT 4.18 M/uL (4.7-6.1); WHITE BLOOD COUNT 9.11 K/uL (4.8-10.8)
[2016-10-06 03:44] LABS: INR 1.3 (0.9-1.1); PARTIAL THROMBOPLASTIN RATIO 1.2; PROTHROMBIN TIME (PATIENT) 13.6 SECONDS (9.0-12.0)
[2016-10-06 04:01] LABS: ALB/GLOB RATIO 0.9 (0.9-2); ALKALINE PHOSPHATASE 122 U/L (45-117); ALT/SGPT 26 U/L (12-78); AST/SGOT 37 U/L (15-37); BLOOD UREA NITROGEN 14 mg/dl (7-18); BUN/CREATININE RATIO 12.9 (10-20); CALCIUM 8.1 mg/dl (8.5-10.1); CARBON DIOXIDE 23 mmol/L (21-32); CHLORIDE 101 mmol/L (98-107); GLUCOSE 412 mg/dl (70-99); POTASSIUM 4.4 mmol/L (3.5-5.1); SODIUM 132 mmol/L (136-145)
[2016-10-06 04:05] LABS: URINE APPEARANCE CLEAR (CLEAR); URINE BILIRUBIN NEG (NEG); URINE COLOR YELLOW; URINE EPITHELIAL CELL AUTO 0-5 /lpf (0-5); URINE NITRITE NEG (NEG); URINE SPECIFIC GRAVITY 1.027 (1.000-1.030); UROBILINOGEN NEG (NEG); ZZUR CULT IF INDIC CLEAN CATCH NO
[2016-10-06] MEDS ORDERED: NovoLIN-R INSULIN PER UNIT CHARGE IV STA (04:09)
[2016-10-06 04:12] LABS: BETA-HYDROXYBUTYRATE 1.59 mg/dL (0.2-2.81)
[2016-10-06 04:12] LABS: MANUAL MICROSCOPIC REQUIRED? NO; REVIEW REQ? NO
[2016-10-06 05:03] LABS: VEN BLD GAS O2 SATURATION < 60.0 %; VEN BLOOD GAS BASE EXCESS 3.9 mEq/L; VENOUS BLOOD GAS PCO2 40 mmHg (38.0-50.0); VENOUS BLOOD GAS PO2 20 mmHg
--- NOTE | 2016-10-06 05:42 | EMERGENCY ROOM VISIT NOTE ---
History First contact with patient: 02:42 Chief Complaint: ABDOMINAL PAIN Stated Complaint: ABDOMINAL PAIN Nursing Triage Summary: pt brought to main ED B5 from home via BLS. pt reports he was admitted last sunday and discharged sunday for end stage liver disease/cirrhosis. reports 10L removed during admission and another 10L removed outpatient Sunday. pt states since discharge he has had increased pain, sob, and weakness, states "I have fallen 3x at home. i'm just so tired, I can't fight this anymore." pt is tearful. pt states "I'm also out of my pain medicaion on . I take diluadid everyday. I dont know if that's part of it or what." abdomen distended and rounded. pt breathing WNL. pt alert and oriented x4. History of Present Illness The patient is a 61 year old male who presents to the Emergency Room with complaints of chills and abdominal pain for the past day who just had paracentesis to remove 10 L of ascites off his abdomen. This is a recurrent problem for him. He has a history of Portillo and is possibly on the liver transplant list. Patient states he feels as if his SBP is back again. Patient describes the pain as severe, 8 at 10 throughout his abdomen. Nothing makes it better or worse. It does not radiate. Patient denies chest pain, dyspnea, cough, congestion, back pain, urinary symptoms. Review of Systems See HPI for pertinent positives & negatives. A total of 10 systems reviewed and were otherwise negative. 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 Surgical Problems: (1) H/O esophagogastroduodenoscopy (2) H/O knee surgery (3) S/P cervical spinal fusion (4) S/P IVC filter (5) S/P lumbar fusion (6) S/P T&A (status post tonsillectomy and adenoidectomy) Family History FH: CAD (coronary artery disease) FATHER FH: breast cancer MOTHER Social History Smoking Status: Never Smoker Alcohol Use: none Drug Use: none Marital Status: single Housing Status: lives with roommate Occupation Status: retired Current/Historical Medications Scheduled Escitalopram Oxalate (Lexapro), 20 MG PO DAILY Ferrous Sulfate (Kp Ferrous Sulfate), 325 MG PO BID Furosemide (Lasix), 40 MG PO DAILY Insulin Aspart (Novolog), 14 UNITS SQ TIDM Insulin Glargine (Lantus), 38 UNITS SC BID Lactulose (Chronulac), 20 GM PO TID Levetiractam (Levetiracetam), 500 MG PO BID Levothyroxine Sodium (Synthroid), 75 MCG PO QAM Magnesium Oxide (Mag-Ox), 400 MG PO BID Pantoprazole (Protonix), 40 MG PO BID Polyethylene Glycol 3350 (Miralax), 17 GM PO BID Propranolol (Inderal), 10 MG PO BID Pyridoxine Hcl (Vitamin B-6), 25 MG PO HS Spironolactone (Aldactone), 100 MG PO DAILY Scheduled PRN Diphenhydramine Hcl (Benadryl), 25 MG PO BID PRN for Itching Hydromorphone Hcl (Dilaudid), 4 MG PO TID PRN for Pain Ondasetron Odt (Zofran Odt), 4 MG SL Q6H PRN for Nausea or Vomiting Triamcinolone Acet (Aristocort 0.1%), 1 APPL EXT BID PRN for dermatitis Physical Exam Vital Signs Date Time Temp Pulse Resp B/P (MAP) Pulse Ox O2 Delivery O2 Flow Rate FiO2 10/06/16 04:23 83 18 118/75 96 Room Air 10/06/16 02:55 100 Room Air 10/06/16 02:48 70 10/06/16 02:40 36.9 69 18 118/71 99 Room Air Physical Exam VITALS: Vitals are noted on the nurse's note and reviewed by myself. Vital signs stable. GENERAL: White male, in no acute distress, nondiaphoretic, well-developed well- nourished. SKIN: The skin was without rashes, erythema, edema, or bruising. There is no tenting of the skin. Capillary reflex less than 2 seconds. HEAD: Normocephalic atraumatic. EARS: External auditory canals clear, tympanic membranes pearly chamberlain without erythema or effusion bilaterally. EYES: Pupils equal round and reactive to light and accommodation. Conjunctivae without injection, sclerae without icterus. Extraocular movements intact. NOSE: Patent, turbinates without inflammation or discharge. MOUTH: Mucous membranes moist. Pharynx without erythema or exudate. Uvula midline. Airway patent. Tongue does not deviate. NECK: Supple without nuchal rigidity. No lymphadenopathy. No thyromegaly. Cervical spine is nontender. No JVD. HEART: Regular rate and rhythm LUNGS: Clear to auscultation bilaterally without wheezes, rales or rhonchi. No dullness to percussion. No retractions or accessory muscle use. ABDOMEN: Positive bowel sounds x 4. Normal tympanic percussion. Soft, diffusely tender to palpation without localized pain, no CVA tenderness, without masses or organomegaly. Diop sign negative. No guarding or rebound tenderness. MUSCULOSKELETAL: No muscle atrophy, erythema, or edema noted. NEURO: Patient was alert and oriented to person place and time. Normal sensation to light and sharp touch. No focal neurological deficits. Medical Decision & Procedures Laboratory Results 10/06/16 03:24 Red Blood Count 4.18, Mean Corpuscular Volume 85.6, Mean Corpuscular Hemoglobin 28.2, Mean Corpuscular Hemoglobin Concent 33.0, Mean Platelet Volume 10.8, Neutrophils (%) (Auto) 80.3, Lymphocytes (%) (Auto) 7.9, Monocytes (%) (Auto) 10.4, Eosinophils (%) (Auto) 0.9, Basophils (%) (Auto) 0.2, Neutrophils # (Auto ) 7.31, Lymphocytes # (Auto) 0.72, Monocytes # (Auto) 0.95, Eosinophils # (Auto ) 0.08, Basophils # (Auto) 0.02 10/06/16 03:24 Test 10/06/16 03:24 10/06/16 03:40 10/06/16 04:43 10/06/16 04:52 White Blood Count 9.11 K/uL (4.8-10.8) Red Blood Count 4.18 M/uL (4.7-6.1) Hemoglobin 11.8 g/dL (14.0-18.0) Hematocrit 35.8 % (42-52) Mean Corpuscular Volume 85.6 fL (80-100) Mean Corpuscular Hemoglobin 28.2 pg (25-34) Mean Corpuscular Hemoglobin Concent 33.0 g/dl (32-36) Platelet Count 103 K/uL (130-400) Mean Platelet Volume 10.8 fL (7.4-10.4) Neutrophils (%) (Auto) 80.3 % Lymphocytes (%) (Auto) 7.9 % Monocytes (%) (Auto) 10.4 % Eosinophils (%) (Auto) 0.9 % Basophils (%) (Auto) 0.2 % Neutrophils # (Auto) 7.31 K/uL (1.4-6.5) Lymphocytes # (Auto) 0.72 K/uL (1.2-3.4) Monocytes # (Auto) 0.95 K/uL (0.11-0.59) Eosinophils # (Auto) 0.08 K/uL (0-0.5) Basophils # (Auto) 0.02 K/uL (0-0.2) RDW Standard Deviation 50.9 fL (36.4-46.3) RDW Coefficient of Variation 16.1 % (11.5-14.5) Immature Granulocyte % (Auto) 0.3 % Immature Granulocyte # (Auto) 0.03 K/uL (0.00-0.02) Prothrombin Time 13.6 SECONDS (9.0-12.0) Prothromb Time International Ratio 1.3 (0.9-1.1) Activated Partial Thromboplast Time 30.0 SECONDS (21.0-31.0) Partial Thromboplastin Ratio 1.2 Anion Gap 8.0 mmol/L (3-11) Estimated GFR () 82.9 Estimated GFR (Non- 71.6 BUN/Creatinine Ratio 12.9 (10-20) Calcium Level 8.1 mg/dl (8.5-10.1) Total Bilirubin 2.5 mg/dl (0.2-1) Aspartate Amino Transf (AST/SGOT) 37 U/L (15-37) Alanine Aminotransferase (ALT/SGPT) 26 U/L (12-78) Alkaline Phosphatase 122 U/L (45-117) Troponin I < 0.015 ng/ml (0-0.045) Total Protein 5.7 gm/dl (6.4-8.2) Albumin 2.7 gm/dl (3.4-5.0) Globulin 3.0 gm/dl (2.5-4.0) Albumin/Globulin Ratio 0.9 (0.9-2) Beta-Hydroxybutyric Acid 1.59 mg/dL (0.2-2.81) Procalcitonin < 0.05 ng/ml (0-0.5) Urine Color YELLOW Urine Appearance CLEAR (CLEAR) Urine pH 5.0 (4.5-7.5) Urine Specific [place] 1.027 (1.000-1.030) Urine Protein NEG (NEG) Urine Glucose (UA) 3+ (NEG) Urine Ketones NEG (NEG) Urine Occult Blood NEG (NEG) Urine Nitrite NEG (NEG) Urine Bilirubin NEG (NEG) Urine Urobilinogen NEG (NEG) Urine Leukocyte Esterase NEG (NEG) Urine WBC (Auto) 0 /hpf (0-5) Urine RBC (Auto) 0-4 /hpf (0-4) Urine Hyaline Casts (Auto) 0 /lpf (0-5) Urine Epithelial Cells (Auto) 0-5 /lpf (0-5) Urine Bacteria (Auto) NEG (NEG) Bedside Glucose 352 mg/dl (70-99) Venous Blood pH 7.47 (7.36-7.41) Venous Blood Partial Pressure CO2 40 mmHg (38.0-50.0) Venous Blood Partial Pressure O2 20 mmHg Venous Blood HCO3 28 mmol/L Venous Blood Oxygen Saturation < 60.0 % Venous Blood Base Excess 3.9 mEq/L Test 10/06/16 04:55 Bedside Lactic Acid Venous 1.91 mmol/L (0.90-1.70) Medications Administered Medications (Trade) Dose Ordered Sig/Ryan Route Start Time Stop Time Status Last Admin Dose Admin Ceftriaxone Sodium 2000 mg/ Dextrose 70 ml @ 100 mls/hr ONE STAT IV 10/06/16 03:27 10/06/16 04:08 DC 10/06/16 03:27 100 MLS/HR Insulin Human Regular (novoLIN-R U-100 PER UNIT) 10 units NOW STAT IV 10/06/16 04:09 10/06/16 04:11 DC 10/06/16 04:09 10 UNITS ED Course Prior records/ancillary studies reviewed. Triage Nursing notes reviewed. Additional history obtained from EMS The patient's history was concerning for abdominal pain. Differential diagnosis: Etiologies such as progression of end stage liver disease, SBP, appendicitis, diverticulitis, PUD, biliary pathology, UTI, pancreatitis, obstruction, mesenteric ischemia, aortic pathology, infections, inflammatory bowel disease, renal colic, as well as others were entertained. Physical examination findings: As above. ER treatment provided: Rocephin On reassessment the patient felt better. Diagnostics interpreted by me: ECG: Normal sinus, normal intervals, no acute ST-T wave changes, Q waves and the anterior lateral leads, rate of 66. Impression normal sinus rhythm with Q waves the lateral leads interpreted by myself The labs revealed negative pro-calcitonin. No leukocytosis. Imaging studies: Chest x-ray with no acute consolidation, pneumothorax or free air per my interpretation Exam and history seem consistent with abdominal pain most likely from patient's withdrawn from his narcotics. Patient finally admitted the fact that he has gone through all his narcotics. I informed him he got a months supply 23 days ago and was also hospitalized during this time. I informed him he must obtain all narcotics for his family care doctor. Patient verbalized understanding this. Patient had hyperglycemia without DKA. He was given insulin. His blood sugar did improve. He was advised to monitor this. He was advised to return to the ER immediately for abdominal pain, fevers, worsening signs or symptoms or as needed. Patient did not have acute abdomen on exam. I do not believe the patient is SBP at this time. At first he did complain about chills but then informed my attending and then myself that he was most likely withdrawing from narcotics. By the evaluation outlined above emergent etiologies such as appendicitis, diverticulitis, PUD, biliary pathology, UTI, pancreatitis, obstruction, mesenteric ischemia, aortic pathology, inflammatory bowel disease, renal colic , as well as others were deemed relatively unlikely. The pt informed about the findings as listed above. All questions were answered and pleased with the treatment. Return instructions were outlined and the patient was discharged in stable condition. Outpatient prescription management: Zofran Referral: The patient was referred back to their primary care physician for follow-up in 1 - 2 to days for a recheck of the current condition. Case reviewed with my attending Medical Decision As above [place] Drug Monitoring Program Search Results: patient reviewed within database, see additional documentation (multiple narcotic prescriptions) Medication Reconcilliation Current Medication List: was personally reviewed by me Blood Pressure Screening Patient's blood pressure: Normal blood pressure Impression Primary Impression: Diffuse abdominal pain Additional Impression: Hyperglycemia due to type 2 diabetes mellitus Departure Information Dispostion Home / Self-Care Condition GOOD Referrals Chacha Munoz D.O. (PCP) Patient Instructions My [facility] Additional Instructions DO NOT drive, drink alcohol, operate machinery, or perform dangerous activities today. You were given medications in the ER that can affect your ability to safely function or operate a vehicle. Zofran 4mg: Take one every six hours as needed for nausea. Avoid alcohol, operating machinery or dangerous equipment, working on ladders or roofs, DRIVING , or situations where being under the influence may be dangerous. Rest and drink plenty of fluids as tolerated. Slow sips of water or sports drinks are recommended instead of large amounts all at once. Continue current medications. Once your stomach is settled start with a clear liquid diet (jello, soup broth, etc.) and then advance as tolerated. You should avoid full, heavy meals for about 24 hrs from the time your symptoms resolved. Return to the ER immediately for worsening or persistent abdominal pain, vomiting, fevers, chest pains, difficulty breathing, black or bloody stools, worsening of your condition, or as needed. Follow up with your primary physician in 24 hours for a recheck of your current condition. Problem Qualifiers
[2016-10-06] MEDS ORDERED: ONDANSETRON HOME PACK 4MG OD TAB PO ONE (05:45)
[2016-10-06 06:03] VITALS: BP 118/70; PULSE 84; O2SAT 99
--- NOTE | 2016-10-06 06:13 | EMERGENCY ROOM VISIT NOTE ---
ED Visit Note First contact with patient: 02:42 I have personally evaluated and examined this patient. I agree with assessment and plan of Ginette Bashir PA-C. 61 yr old male with known liver failure and frequent visits to ED arrives 2 days post discharge for evaluation of abdominal pain. No peritonitis, no fever, no wbc elevation, normal procalcitonin. Symptoms and findings not consistent with SBP. He also is already on abx as it is for scrotal cellulitis that is improving. After discussion with patient it becomes clear he is here because he ran out of his dilaudid. These are clearly controlled by single provider and given him rx for them would be inappropriate in this setting.
--- NOTE | 2016-10-06 06:38 | DIAGNOSTIC IMAGING REPORT ---
CHEST ONE VIEW PORTABLE CLINICAL HISTORY: Abdominal pain COMPARISON STUDY: October 01, 2016 FINDINGS: The cardiac and mediastinal contours are normal. There is no evidence of focal pulmonary consolidation. There is no evidence of failure. No pleural effusions are visualized.[There is no free intraperitoneal air. There are resolving basilar atelectatic changes. IMPRESSION: 1. No active disease in the chest 2. Resolving basilar atelectasis 3. No evidence of free intraperitoneal air Electronically signed by: Pawan Garner M.D. 10/06/2016 6:36 AM Dictated Date/Time: 10/06/2016 6:36 AM
[2016-10-28] MEDS ORDERED: XFX550 PO (14:18)
[2016-11-06] MEDS ORDERED: CLIN300C2 PO (14:29)
[2016-11-06] MEDS ORDERED: LCTX PO (14:29)
[2016-11-18] MEDS ORDERED: CLIN300C2 PO (10:23)
== END 2016-10-06 06:24 | disposition home or self-care (01) ==
LOC: EDBD 02:34 → C.EDB 02:35
DX: R10.84 Generalized abdominal pain (principal); E11.65 Type 2 diabetes mellitus with hyperglycemia; K74.60 Unspecified cirrhosis of liver; K72.90 Hepatic failure, unspecified without coma; K75.81 Nonalcoholic steatohepatitis (NASH); I85.10 Secondary esophageal varices without bleeding; F19.230 Other psychoactive substance dependence with withdrawal, uncomplicated; F32.9 Major depressive disorder, single episode, unspecified; E78.5 Hyperlipidemia, unspecified; E03.9 Hypothyroidism, unspecified; K76.6 Portal hypertension; G40.909 Epilepsy, unspecified, not intractable, without status epilepticus; Z86.711 Personal history of pulmonary embolism; Z98.1 Arthrodesis status; Z80.3 Family history of malignant neoplasm of breast; Z79.899 Other long term (current) drug therapy; Z79.4 Long term (current) use of insulin

== ENCOUNTER 2016-10-08 20:09 | Emergency (ER) | payer OTHER ==
[~2016-10-08] VITALS: Ht 182.9 cm; Wt 77.1 kg
[2016-10-08 20:14] VITALS: TEMP 36.6; Ht 182.9 cm; Wt 77.1 kg
[2016-10-08] MEDS ORDERED: HYDROmorphone HCL 2 MG TAB PO STA (20:38)
--- NOTE | 2016-10-08 21:01 | EMERGENCY ROOM VISIT NOTE ---
History Report prepared by Alla: Wolfgang Brady Under the Supervision of: Dr. Nimisha Oliveros M.D. First contact with patient: 20:24 Chief Complaint: DIARRHEA Stated Complaint: DIARRHEA, ABD PAIN Nursing Triage Summary: Diarrhea, 26 episodes in 2 days reported by pt. Also has abdominal pain, feels like someone punched him in stomach, lower quadrants into both sides. Abdomen distended, pt states this is baseline. Has unrepaired umbilical hernia and end stage liver disease. Denies vomiting. History of Present Illness The patient is a 61 year old male who presents to the Emergency Room with complaints of constant diarrhea that started two days ago. He rates his pain as a 7/10 in severity.He states that he has had 26 episodes in the last two days. The patient describes his stool as dark, black stool and "gritty like liquid sand". He admits that his last bowel movement was prior to arrival. He states that he took a nap today and woke up with diaphoresis and chills. The patient also reports experiencing abdominal pain, which he describes as a "punching sensation". The patient also complains of back pain, which is chronic due to his history of back surgery. He states he has a history of an unrepaired umbilical hernia and end stage liver disease. The patient admits that he is on the liver transport list but his doctors have been between his treatment plan. He states that his one doctor told him to have a TIPS procedure done, but his hardboard supervisor told him to speak to the transplant team before surgery. He admits that he has an MRI for his liver scheduled on October 17, but has his surgery planned to remove his liver cyst on the . The patient states that he needs to have an MRI done before his surgery. He states that the MRI will show the size, a better picture, and whether they should burn or freeze the cyst. The patient states that he had paracentesis earlier this week. He reports that he is "ready to give up". He reports that his PCP is Dr. Hurtado and his usual doctor to follow up with for his liver is Dr. Culver. The patient denies any hematochezia, shortness of breath, chest pain, vomiting, and suicidal ideations. Source of History: patient Onset: last two days Position: other (global) Symptom Intensity: 7/10 Timing: intermittent Associated Symptoms: + chills, + diaphoresis, + abdominal pain, + back pain , No chest pain, No SOB, No vomiting, No hematochezia Review of Systems See HPI for pertinent positives & negatives. A total of 10 systems reviewed and were otherwise negative. 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 Surgical Problems: (1) H/O esophagogastroduodenoscopy (2) H/O knee surgery (3) S/P cervical spinal fusion (4) S/P IVC filter (5) S/P lumbar fusion (6) S/P T&A (status post tonsillectomy and adenoidectomy) Family History FH: CAD (coronary artery disease) FATHER FH: breast cancer MOTHER Social History Smoking Status: Never Smoker Alcohol Use: none Drug Use: none Marital Status: single Housing Status: lives with roommate Occupation Status: retired Current/Historical Medications Scheduled Escitalopram Oxalate (Lexapro), 20 MG PO DAILY Ferrous Sulfate (Kp Ferrous Sulfate), 325 MG PO BID Furosemide (Lasix), 40 MG PO DAILY Insulin Aspart (Novolog), 14 UNITS SQ TIDM Insulin Glargine (Lantus), 38 UNITS SC BID Lactulose (Chronulac), 20 GM PO TID Levetiractam (Levetiracetam), 500 MG PO BID Levothyroxine Sodium (Synthroid), 75 MCG PO QAM Magnesium Oxide (Mag-Ox), 400 MG PO BID Pantoprazole (Protonix), 40 MG PO BID Polyethylene Glycol 3350 (Miralax), 17 GM PO BID Propranolol (Inderal), 10 MG PO BID Pyridoxine Hcl (Vitamin B-6), 25 MG PO HS Spironolactone (Aldactone), 100 MG PO DAILY Scheduled PRN Diphenhydramine Hcl (Benadryl), 25 MG PO BID PRN for Itching Hydromorphone Hcl (Dilaudid), 4 MG PO TID PRN for Pain Ondasetron Odt (Zofran Odt), 4 MG SL Q6H PRN for Nausea or Vomiting Triamcinolone Acet (Aristocort 0.1%), 1 APPL EXT BID PRN for dermatitis Allergies Coded Allergies: Acetaminophen (Verified Allergy, Severe, ESLD (BETANCOURT). on Liver transplant list. Cannot have APAP., 10/06/16) Morphine (Verified Allergy, Severe, RED HIVE WENT UP ARM FROM IV SITE, 10/06) NSAIDs (Verified Allergy, Severe, DUE TO LIVER DISEAS, 10/06/16) Penicillins (Verified Allergy, Severe, JOINT SWELLING AND FEVER, 10/06/16) Fentanyl (Verified Allergy, Intermediate, rash, 10/06/16) Levofloxacin (Verified Allergy, Intermediate, RASH, 10/06/16) pt developed erythema at site of IV injection with itching Vancomycin (Verified Allergy, Mild, HIVES, 10/06/16) HIVES Tramadol (Verified Allergy, Unknown, NOT TO TAKE WITH KEPPRA DUE TO SEIZURE RISK, 10/06/16) Physical Exam Vital Signs Date Time Temp Pulse Resp B/P (MAP) Pulse Ox O2 Delivery O2 Flow Rate FiO2 10/08/16 23:13 66 18 142/79 95 Room Air 10/08/16 22:01 129/76 10/08/16 21:54 66 19 98 10/08/16 21:43 116/68 10/08/16 21:39 66 17 96 10/08/16 21:33 10/08/16 21:24 63 22 97 10/08/16 21:09 64 17 97 10/08/16 20:54 71 14 98 10/08/16 20:39 66 15 98 10/08/16 20:34 111/72 10/08/16 20:31 66 10/08/16 20:14 36.6 69 20 124/75 95 Room Air Physical Exam Vital signs reviewed. General: Chronically ill-appearing 61 year old male, cachetic in appearance, in no significant distress. HEENT: No scleral icterus, PERRLA, neck supple. Atraumatic. Cardiovascular: Regular rate and rhythm, no extra sounds. Pulmonary: Clear to auscultation bilaterally, normal work of breathing. Abdomen: Protuberant abdomen, soft, nontender, positive bowel sounds. Musculoskeletal: Atraumatic, no peripheral edema. Neurologic: Patient awake alert and oriented x 3, full strength in all 4 extremities. Cranial nerves 2 through 12 grossly intact. Skin: Warm, dry, no rash Medical Decision & Procedures Laboratory Results 10/08/16 21:35 Red Blood Count 4.47, Mean Corpuscular Volume 86.6, Mean Corpuscular Hemoglobin 28.0, Mean Corpuscular Hemoglobin Concent 32.3, Mean Platelet Volume 11.4, Neutrophils (%) (Auto) 79.2, Lymphocytes (%) (Auto) 8.9, Monocytes (%) (Auto) 9.5, Eosinophils (%) (Auto) 1.5, Basophils (%) (Auto) 0.5, Neutrophils # (Auto) 6.49, Lymphocytes # (Auto) 0.73, Monocytes # (Auto) 0.78, Eosinophils # (Auto) 0.12, Basophils # (Auto) 0.04 10/08/16 21:35 Test 10/08/16 21:10 10/08/16 21:35 10/08/16 23:11 Urine Color YELLOW Urine Appearance CLEAR (CLEAR) Urine pH 5.0 (4.5-7.5) Urine Specific [place] 1.033 (1.000-1.030) Urine Protein NEG (NEG) Urine Glucose (UA) 3+ (NEG) Urine Ketones NEG (NEG) Urine Occult Blood NEG (NEG) Urine Nitrite NEG (NEG) Urine Bilirubin NEG (NEG) Urine Urobilinogen NEG (NEG) Urine Leukocyte Esterase NEG (NEG) White Blood Count 8.19 K/uL (4.8-10.8) Red Blood Count 4.47 M/uL (4.7-6.1) Hemoglobin 12.5 g/dL (14.0-18.0) Hematocrit 38.7 % (42-52) Mean Corpuscular Volume 86.6 fL (80-100) Mean Corpuscular Hemoglobin 28.0 pg (25-34) Mean Corpuscular Hemoglobin Concent 32.3 g/dl (32-36) Platelet Count 90 K/uL (130-400) Mean Platelet Volume 11.4 fL (7.4-10.4) Neutrophils (%) (Auto) 79.2 % Lymphocytes (%) (Auto) 8.9 % Monocytes (%) (Auto) 9.5 % Eosinophils (%) (Auto) 1.5 % Basophils (%) (Auto) 0.5 % Neutrophils # (Auto) 6.49 K/uL (1.4-6.5) Lymphocytes # (Auto) 0.73 K/uL (1.2-3.4) Monocytes # (Auto) 0.78 K/uL (0.11-0.59) Eosinophils # (Auto) 0.12 K/uL (0-0.5) Basophils # (Auto) 0.04 K/uL (0-0.2) RDW Standard Deviation 48.0 fL (36.4-46.3) RDW Coefficient of Variation 15.1 % (11.5-14.5) Immature Granulocyte % (Auto) 0.4 % Immature Granulocyte # (Auto) 0.03 K/uL (0.00-0.02) Platelet Estimate DECREASED Giant Platelets 1+ Prothrombin Time 12.6 SECONDS (9.0-12.0) Prothromb Time International Ratio 1.2 (0.9-1.1) Activated Partial Thromboplast Time 28.5 SECONDS (21.0-31.0) Partial Thromboplastin Ratio 1.1 Anion Gap 8.0 mmol/L (3-11) Est Creatinine Clear Calc Drug Dose 75.9 ml/min Estimated GFR () 82.9 Estimated GFR (Non- 71.6 BUN/Creatinine Ratio 12.4 (10-20) Calcium Level 8.5 mg/dl (8.5-10.1) Total Bilirubin 1.7 mg/dl (0.2-1) Direct Bilirubin 0.9 mg/dl (0-0.2) Aspartate Amino Transf (AST/SGOT) 30 U/L (15-37) Alanine Aminotransferase (ALT/SGPT) 26 U/L (12-78) Alkaline Phosphatase 127 U/L (45-117) Total Protein 6.7 gm/dl (6.4-8.2) Albumin 3.1 gm/dl (3.4-5.0) Lipase 345 U/L (73-393) Beta-Hydroxybutyric Acid 1.32 mg/dL (0.2-2.81) Bedside Glucose 444 mg/dl (70-99) Laboratory results per my review. Medications Administered Medications (Trade) Dose Ordered Sig/Ryan Route Start Time Stop Time Status Last Admin Dose Admin Hydromorphone HCl (Dilaudid Tab) 4 mg NOW STAT PO 10/08/16 20:38 10/08/16 20:40 DC 10/08/16 22:04 4 MG Insulin Glargine (Lantus Per Unit) 38 units NOW STAT SQ 10/08/16 22:33 10/08/16 22:34 DC 10/08/16 23:12 38 UNITS Insulin Human Regular (novoLIN-R U-100 PER UNIT) 20 units NOW STAT SC 10/08/16 22:35 10/08/16 22:36 DC 10/08/16 22:49 20 UNITS ED Course 2032: Past medical records reviewed. The patient was evaluated in room C10. A complete history and physical examination was performed. 2037: Ordered Dilaudid Tab 4 mg PO. 2219: Ordered Insulin Human Regular 10 units SC. Medical Decision Differential diagnosis includes but is not limited to: medication induced diarrhea, GI bleed, infectious etiology, food borne illness, and colitis. This patient was evaluated and appeared to be in no significant distress. IV access was obtained and laboratory work was drawn. The patient was placed on beaver trapper and found to be in a normal sinus rhythm. The patient was medicated with 4 mg of oral Dilaudid for his complaints of pain. This is his home dose. The patient's laboratory work reveals a hyperglycemia of 466. He was given 20 units of regular insulin subcutaneously. Patient was also given his evening Lantus dose. Patient's stool is guaiac negative. It is also negative for C. difficile. Patient was observed in the ER for several hours. His blood sugar did improve slightly. Pt was given an additional 10 U of SQ regular insulin. The pt is regularly hyperglycemic and non-compliant with his medications. Pt was advised to check his BG upon return home. He was discharged to resume his medications as prescribed. He'll follow-up with his physician in 3 days as scheduled. Patient was discharged to care of his nephew. He will return to the ER for worsening of symptoms or any medical concerns. Medication Reconcilliation Current Medication List: was personally reviewed by me Blood Pressure Screening Patient's blood pressure: Elevated blood pressure Blood pressure disposition: Elevated BP felt to be situational Impression Primary Impression: Hyperglycemia Additional Impression: Diarrhea Scribe Attestation The scribe's documentation has been prepared under my direction and personally reviewed by me in its entirety. I confirm that the note above accurately reflects all work, treatment, procedures, and medical decision making performed by me. Departure Information Referrals Chacha Munoz D.O. (PCP) Patient Instructions [facility] Problem Qualifiers
[2016-10-08 21:26] LABS: URINE APPEARANCE CLEAR (CLEAR); URINE BILIRUBIN NEG (NEG); URINE COLOR YELLOW; URINE NITRITE NEG (NEG); URINE SPECIFIC GRAVITY 1.033 (1.000-1.030); UROBILINOGEN NEG (NEG); ZZUR CULT IF INDIC CLEAN CATCH NO
[2016-10-08 21:33] LABS: MANUAL MICROSCOPIC REQUIRED? NO; REVIEW REQ? NO
[2016-10-08 21:44] LABS: HEMATOCRIT 38.7 % (42-52); MEAN CELL VOLUME 86.6 fL (80-100); MEAN CORPUSCULAR HGB CONC 32.3 g/dl (32-36); RED BLOOD COUNT 4.47 M/uL (4.7-6.1); WHITE BLOOD COUNT 8.19 K/uL (4.8-10.8)
[2016-10-08 21:55] LABS: INR 1.2 (0.9-1.1); PARTIAL THROMBOPLASTIN RATIO 1.1; PROTHROMBIN TIME (PATIENT) 12.6 SECONDS (9.0-12.0)
[2016-10-08 22:17] LABS: BUN/CREATININE RATIO 12.4 (10-20); CALCIUM 8.5 mg/dl (8.5-10.1); CREATININE 1.1 mg/dl (0.60-1.40); POTASSIUM 4.2 mmol/L (3.5-5.1)
[2016-10-08] MEDS ORDERED: NovoLIN-R INSULIN PER UNIT CHARGE SC STA ×3 (22:20→23:46)
[2016-10-08 22:22] LABS: BASO % 0.5 %; BASO ABS # 0.04 K/uL (0-0.2); COMPLETE YES; EOS % 1.5 %; GIANT PLATELETS 1+; IG% 0.4 %; LYMPH % 8.9 %; LYMPH ABS # 0.73 K/uL (1.2-3.4); MEAN PLATELET VOLUME 11.4 fL (7.4-10.4); MONO % 9.5 %; NEUT % 79.2 %; PLATELET COUNT 90 K/uL (130-400); PLT ESTIMATE DECREASED
[2016-10-08 22:29] LABS: BETA-HYDROXYBUTYRATE 1.32 mg/dL (0.2-2.81)
[2016-10-08] MEDS ORDERED: LANTUS PER UNIT CHARGE SQ STA (22:33)
[2016-10-09 00:05] VITALS: BP 118/81; PULSE 66; O2SAT 96
[2016-10-28] MEDS ORDERED: XFX550 PO (14:18)
[2016-11-06] MEDS ORDERED: CLIN300C2 PO (14:29)
[2016-11-06] MEDS ORDERED: LCTX PO (14:29)
[2016-11-18] MEDS ORDERED: CLIN300C2 PO (10:23)
== END 2016-10-09 00:05 | disposition home or self-care (01) ==
LOC: C.EDB 20:10 → C.EDC 10-09 00:05
DX: E11.65 Type 2 diabetes mellitus with hyperglycemia (principal); R19.7 Diarrhea, unspecified; K72.90 Hepatic failure, unspecified without coma; E03.9 Hypothyroidism, unspecified; F41.9 Anxiety disorder, unspecified; F32.9 Major depressive disorder, single episode, unspecified; K75.81 Nonalcoholic steatohepatitis (NASH); Z86.711 Personal history of pulmonary embolism; G40.909 Epilepsy, unspecified, not intractable, without status epilepticus; Z98.890 Other specified postprocedural states; Z90.89 Acquired absence of other organs; Z98.1 Arthrodesis status; Z80.3 Family history of malignant neoplasm of breast; Z82.49 Family history of ischemic heart disease and other diseases of the circulatory system; Z79.4 Long term (current) use of insulin; Z79.899 Other long term (current) drug therapy

== ENCOUNTER 2016-10-24 10:41 | Inpatient (IN) | payer OTHER ==
[~2016-10-24] VITALS: Ht 182.9 cm; Wt 72.8 kg
--- NOTE | 2016-10-24 11:28 | EMERGENCY ROOM VISIT NOTE ---
History Report prepared by Alla: No Schilling Under the Supervision of: Dr. Mateo Rainey M.D. First contact with patient: 11:10 Chief Complaint: ABDOMINAL PAIN Stated Complaint: CONFUSION Nursing Triage Summary: Pt. arrives to exam room via EMS with complaints of abdominal pain and confusion since Sunday after having a TIPS procedure. TIPS procedure was performed Sunday at [facility] and he was discharged Sunday. Patient's only report of being confused is that he doesn't know what day it is. History of Present Illness The patient is a 61 year old male who presents to the Emergency Room with complaints of persistent confusion that began this morning prior to arrival. He currently rates his discomfort as a 6/10 in severity. The patient states that last Sunday he had a TIPS procedure done and was discharged from the hospital on Sunday. The patient states that he became increasingly confused today. He reports a history of cirrhosis of the liver due to BETANCOURT. The patient states that his ammonia level has been normal recently. He states that he is taking his lactulose. The patient notes that he had 8 liters of fluid taken off of his abdomen through the TIPS procedure. He reports right upper quadrant abdominal discomfort as well today. Source of History: patient Onset: prior to arrival Position: other (global) Symptom Intensity: 6/10 Quality: other (confusion) Timing: other (persistent) Associated Symptoms: + abdominal pain Review of Systems See HPI for pertinent positives & negatives. A total of 10 systems reviewed and were otherwise negative. 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 Surgical Problems: (1) H/O esophagogastroduodenoscopy (2) H/O knee surgery (3) S/P cervical spinal fusion (4) S/P IVC filter (5) S/P lumbar fusion (6) S/P T&A (status post tonsillectomy and adenoidectomy) Family History FH: CAD (coronary artery disease) FATHER FH: breast cancer MOTHER Social History Smoking Status: Never Smoker Alcohol Use: none Drug Use: none Marital Status: single Housing Status: lives with roommate Occupation Status: retired Current/Historical Medications Scheduled Escitalopram Oxalate (Lexapro), 20 MG PO DAILY Ferrous Sulfate ( Ferrous Sulfate), 325 MG PO BID Furosemide (Lasix), 40 MG PO DAILY Insulin Aspart (Novolog), 14 UNITS SQ TIDM Insulin Glargine (Lantus), 38 UNITS SC BID Lactulose (Chronulac), 30 ML PO QID Levetiractam (Levetiracetam), 500 MG PO BID Levothyroxine Sodium (Synthroid), 75 MCG PO QAM Magnesium Oxide (Mag-Ox), 400 MG PO BID Melatonin ( Melatonin), 2 MG PO HS Pantoprazole (Protonix), 40 MG PO BID Polyethylene Glycol 3350 (Miralax), 17 GM PO BID Pyridoxine Hcl (Vitamin B-6), 25 MG PO HS Spironolactone (Aldactone), 100 MG PO BID Scheduled PRN Diphenhydramine Hcl (Benadryl), 25 MG PO BID PRN for Itching Hydromorphone Hcl (Dilaudid), 4 MG PO Q6 PRN for Pain Ondasetron Odt (Zofran Odt), 1-2 MG SL Q8 PRN for Nausea or Vomiting Triamcinolone Acet (Aristocort 0.1%), 1 APPL EXT BID PRN for dermatitis Allergies Coded Allergies: Acetaminophen (Verified Allergy, Severe, ESLD (BETANCOURT). on Liver transplant list. Cannot have APAP., 10/24/16) Morphine (Verified Allergy, Severe, RED HIVE WENT UP ARM FROM IV SITE, ) NSAIDs (Verified Allergy, Severe, DUE TO LIVER DISEAS, 10/24/16) Penicillins (Verified Allergy, Severe, JOINT SWELLING AND FEVER, 10/24/16) Fentanyl (Verified Allergy, Intermediate, rash, 10/24/16) Levofloxacin (Verified Allergy, Intermediate, RASH, 10/24/16) pt developed erythema at site of IV injection with itching Vancomycin (Verified Allergy, Mild, HIVES, 10/24/16) HIVES Tramadol (Verified Allergy, Unknown, NOT TO TAKE WITH KEPPRA DUE TO SEIZURE RISK, 10/24/16) Physical Exam Vital Signs Date Time Temp Pulse Resp B/P (MAP) Pulse Ox O2 Delivery O2 Flow Rate FiO2 10/24/16 14:00 70 15 117/64 96 Room Air 10/24/16 13:12 75 10/24/16 12:30 69 13 113/59 94 Room Air 10/24/16 12:07 73 12 107/61 96 Room Air 10/24/16 11:00 71 12 105/67 99 Room Air 10/24/16 10:53 75 10/24/16 10:45 98 Room Air 10/24/16 10:45 36.9 75 15 127/72 98 Room Air Physical Exam GENERAL: Patient awake, alert, oriented x 3. Patient follows commands. Patient does not appear toxic. Patient is adequately hydrated and well- nourished. SKIN: No erythema, pallor, cyanosis or rash HEENT: Normal head, pupils equal, reactive to light and accommodation. Oral cavity and posterior pharynx appear normal. Neck: Without adenopathy, no neck vein distention. LUNGS: Clear to auscultation. No wheezes, no rales, no rhonchi. HEART: No murmurs. No gallops. No rubs ABDOMEN: Tender in the right upper quadrant. Small umbilical hernia, no rebound , no hepatomegaly or splenomegaly. Small bandages on either side of abdomen from prior paracentesis EXTREMITIES: No signs of trauma. 2 plus pitting edema to mid calf. No calf or thigh tenderness. NEUROLOGIC: Cranial nerves II-XII within normal limits. No gross motor sensory function deficits. Medical Decision & Procedures ER Provider Diagnostic Interpretation: X ray results are stated below per my interpretation and the radiologist's interpretation. CHEST ONE VIEW PORTABLE CLINICAL HISTORY: 61 years-old Male presenting with liver failure. TECHNIQUE: Portable upright AP view of the chest was obtained. COMPARISON: 10/06/2016. FINDINGS: Cardiomediastinal silhouette normal. Minimal linear opacities at the left lung base persist. No new focal infiltrate. No pleural effusion or pneumothorax. Partially visualized anterior cervical fusion hardware. Endovascular coils noted in the epigastrium. IMPRESSION: 1. Minimal persistent left basilar atelectasis or scarring. No new focal infiltrate. No pleural effusion. Electronically signed by: Slim Sarmiento M.D. 10/24/2016 11:40 AM Dictated Date/Time: 10/24/2016 11:39 AM Laboratory Results 10/24/16 11:53 Red Blood Count 4.12, Mean Corpuscular Volume 85.7, Mean Corpuscular Hemoglobin 28.6, Mean Corpuscular Hemoglobin Concent 33.4, Mean Platelet Volume 10.4, Neutrophils (%) (Auto) 75.2, Lymphocytes (%) (Auto) 10.4, Monocytes (%) (Auto) 10.1, Eosinophils (%) (Auto) 3.8, Basophils (%) (Auto) 0.3, Neutrophils # (Auto ) 4.97, Lymphocytes # (Auto) 0.69, Monocytes # (Auto) 0.67, Eosinophils # (Auto ) 0.25, Basophils # (Auto) 0.02 10/24/16 11:53 Test 10/24/16 11:09 10/24/16 11:53 Bedside Glucose 384 mg/dl (70-99) White Blood Count 6.61 K/uL (4.8-10.8) Red Blood Count 4.12 M/uL (4.7-6.1) Hemoglobin 11.8 g/dL (14.0-18.0) Hematocrit 35.3 % (42-52) Mean Corpuscular Volume 85.7 fL (80-100) Mean Corpuscular Hemoglobin 28.6 pg (25-34) Mean Corpuscular Hemoglobin Concent 33.4 g/dl (32-36) Platelet Count 101 K/uL (130-400) Mean Platelet Volume 10.4 fL (7.4-10.4) Neutrophils (%) (Auto) 75.2 % Lymphocytes (%) (Auto) 10.4 % Monocytes (%) (Auto) 10.1 % Eosinophils (%) (Auto) 3.8 % Basophils (%) (Auto) 0.3 % Neutrophils # (Auto) 4.97 K/uL (1.4-6.5) Lymphocytes # (Auto) 0.69 K/uL (1.2-3.4) Monocytes # (Auto) 0.67 K/uL (0.11-0.59) Eosinophils # (Auto) 0.25 K/uL (0-0.5) Basophils # (Auto) 0.02 K/uL (0-0.2) RDW Standard Deviation 50.8 fL (36.4-46.3) RDW Coefficient of Variation 16.2 % (11.5-14.5) Immature Granulocyte % (Auto) 0.2 % Immature Granulocyte # (Auto) 0.01 K/uL (0.00-0.02) Prothrombin Time 14.7 SECONDS (9.0-12.0) Prothromb Time International Ratio 1.4 (0.9-1.1) Activated Partial Thromboplast Time 34.8 SECONDS (21.0-31.0) Partial Thromboplastin Ratio 1.3 Anion Gap 6.0 mmol/L (3-11) Est Creatinine Clear Calc Drug Dose 85.6 ml/min Estimated GFR () 104.3 Estimated GFR (Non- 90.0 BUN/Creatinine Ratio 8.1 (10-20) Calcium Level 7.8 mg/dl (8.5-10.1) Total Bilirubin 4.0 mg/dl (0.2-1) Direct Bilirubin 1.6 mg/dl (0-0.2) Aspartate Amino Transf (AST/SGOT) 131 U/L (15-37) Alanine Aminotransferase (ALT/SGPT) 91 U/L (12-78) Alkaline Phosphatase 176 U/L (45-117) Ammonia 32.0 umol/L (11-32) Troponin I 0.016 ng/ml (0-0.045) Total Protein 5.4 gm/dl (6.4-8.2) Albumin 2.7 gm/dl (3.4-5.0) Lipase 58 U/L (73-393) Beta-Hydroxybutyric Acid 1.23 mg/dL (0.2-2.81) Laboratory results as stated above per my review. ECG Indication: abdominal pain Rate (beats per minute): 78 Rhythm: normal sinus Findings: no acute ischemic change, no ectopy ED Course 1111: Past medical records reviewed. The patient was evaluated in room C10. A complete history and physical examination was performed. 1333: I reevaluated the patient and he is resting comfortably. I discussed the exam findings with him at this time. Surgery will be discussed. 1338: I discussed the patients case with Dr. Culver, General Surgery. He suggests that the patient is transferred back to [place]. 1342: I reevaluated the patient and I updated the patient on the treatment plan. He is in agreement to be transferred to [facility] for further management and care. 1407: I discussed the patients case with Omar Delgado [facility]. He believes that the patient can stay here for further evaluation and treatment. 1410: I updated the patient on the treatment plan and he is in agreement. 1419: I discussed the patients case with Omar Ahn PA-C. She is going to evaluate the patient for further treatment. Medical Decision Nurses notes reviewed. Medical history sheet reviewed. Differential diagnosis includes but is not limited to: Liver failure, cirrhosis, ascites, hyperammonemia, hepatic encephalopathy, complication post TIPS procedure. Multiple labs were obtained. Please see above. The patient's bilirubin and liver enzymes are all elevated. The patient is slightly confused. I discussed care with Dr. Palomo fish and with Dr. Vargas from [place] who felt that the patient could be adequately treated here. I also discussed care with the hospitalist. I explained care with the patient Medication Reconcilliation Current Medication List: was personally reviewed by me Blood Pressure Screening Patient's blood pressure: Normal blood pressure Blood pressure disposition: Did not require urgent referral Consults Time Called: 1335 Consulting Physician: Dr. Culver, General Surgery Returned Call: 1338 I discussed the patients case with Dr. Culver, General Surgery. He suggests that the patient is transferred back to [place]. Additional Consults: Time Called: 1344 Consulted Physician: Omar [facility] Returned Call: [phone] Additional Comments: I discussed the patients case with Omar Del[facility]. He believes that the patient can stay here for further evaluation and treatment. Time Called: 1410 Consulted Physician: Omar Ahn PA-C Returned Call: 1419 Additional Comments: I discussed the patients case with Omar Ahn PA-C. She is going to evaluate the patient for further treatment. Impression Primary Impression: Hepatic encephalopathy Scribe Attestation The scribe's documentation has been prepared under my direction and personally reviewed by me in its entirety. I confirm that the note above accurately reflects all work, treatment, procedures, and medical decision making performed by me. Departure Information Dispostion Being Evaluated By Hospitalist Referrals Chacha Munoz D.O. (PCP)
[2016-10-24] MEDS ORDERED: MELA1TAB5 PO (11:40)
--- NOTE | 2016-10-24 11:41 | DIAGNOSTIC IMAGING REPORT ---
CHEST ONE VIEW PORTABLE CLINICAL HISTORY: 61 years-old Male presenting with liver failure. TECHNIQUE: Portable upright AP view of the chest was obtained. COMPARISON: 10/06/2016. FINDINGS: Cardiomediastinal silhouette normal. Minimal linear opacities at the left lung base persist. No new focal infiltrate. No pleural effusion or pneumothorax. Partially visualized anterior cervical fusion hardware. Endovascular coils noted in the epigastrium. IMPRESSION: 1. Minimal persistent left basilar atelectasis or scarring. No new focal infiltrate. No pleural effusion. Electronically signed by: Slim Sarmiento M.D. 10/24/2016 11:40 AM Dictated Date/Time: 10/24/2016 11:39 AM
[2016-10-24 12:18] LABS: BASO % 0.3 %; BASO ABS # 0.02 K/uL (0-0.2); COMPLETE YES; EOS % 3.8 %; HEMATOCRIT 35.3 % (42-52); IG% 0.2 %; LYMPH % 10.4 %; LYMPH ABS # 0.69 K/uL (1.2-3.4); MEAN CELL VOLUME 85.7 fL (80-100); MEAN CORPUSCULAR HEMOGLOBIN 28.6 pg (25-34); MEAN CORPUSCULAR HGB CONC 33.4 g/dl (32-36); MEAN PLATELET VOLUME 10.4 fL (7.4-10.4); MONO % 10.1 %; NEUT % 75.2 %; PLATELET COUNT 101 K/uL (130-400); RED BLOOD COUNT 4.12 M/uL (4.7-6.1); WHITE BLOOD COUNT 6.61 K/uL (4.8-10.8)
[2016-10-24 12:31] LABS: INR 1.4 (0.9-1.1); PARTIAL THROMBOPLASTIN RATIO 1.3; PROTHROMBIN TIME (PATIENT) 14.7 SECONDS (9.0-12.0)
[2016-10-24 13:01] LABS: BUN/CREATININE RATIO 8.1 (10-20); CALCIUM 7.8 mg/dl (8.5-10.1); CREATININE 0.91 mg/dl (0.60-1.40); POTASSIUM 4.3 mmol/L (3.5-5.1)
[2016-10-24 13:20] LABS: BETA-HYDROXYBUTYRATE 1.23 mg/dL (0.2-2.81)
[2016-10-24] MEDS ORDERED: ONDANSETRON INJ 2 MG/ML 2 ML VIAL IV PRN (15:30)
[2016-10-24] MEDS ORDERED: GLUCOSE 10 TABS/TUBE PO PRN (15:30)
[2016-10-24] MEDS ORDERED: DEXTROSE 50% 50 ML SYR IV PRN (15:30)
[2016-10-24] MEDS ORDERED: GLUCAGON FOR INJ 1 MG VIAL SQ PRN (15:30)
[2016-10-24] MEDS ORDERED: GLUCOSE 40% GEL 15 GM TUBE PO PRN (15:30)
[2016-10-24 15:33] VITALS: Ht 182.9 cm; Wt 72.8 kg
[2016-10-24] MEDS ORDERED: TRIAMCINOLONE ACET 0.1% CR 15 GM TUBE EXT PRN (16:00)
[2016-10-24 16:36] VITALS: O2SAT 98
[2016-10-24 16:37] LABS: URINE APPEARANCE CLEAR (CLEAR); URINE COLOR ORANGE; URINE EPITHELIAL CELL AUTO 0-5 /lpf (0-5); URINE NITRITE POS (NEG); URINE PH 5.5 (4.5-7.5); URINE SPECIFIC GRAVITY 1.033 (1.000-1.030); UROBILINOGEN NEG (NEG); ZZUR CULT IF INDIC CLEAN CATCH NO
--- NOTE | 2016-10-24 16:37 | History and Physical ---
History & Physical Date & Time of Service: Oct 24, 2016 at 16:37 Chief Complaint: Confusion Primary Care Physician: Chacha Munoz D.O. History of Present Illness Source: patient, clinic records, hospital records This is a 61yo M with a PMH of BETANCOURT cirrhosis, hepatic encephalopathy, esophageal varices, thrombocytopenia, DM II and hypothyroidism who presents with confusion that began this morning. Patient had a TIPS procedure on 10/20/16 at [facility] and was discharged on Sunday. Per chart review, TIPS procedure was uncomplicated and patient had no bleeding from transjugular insertion site. Reports that 8L of fluid were removed from abdomen during procedure. States that he felt fine over the weekend but woke up feeling confused and "foggy". Patient's roommate became concerned, especially with patient's history of hepatic encephalopathy, and called EMS. Patient has been taking all medications as scheduled, including lactulose. States than ammonia levels have been normal. Is A&Ox4 but is groggy in regards to the sequence of events this morning. Just remembers waking up and not feeling like himself. Associated symptoms include RUQ abdominal pain, nausea and LE swelling. Denies fever, chills, CP, SOB, vomiting, dysuria, constipation. 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 Surgical Problems: (1) H/O esophagogastroduodenoscopy Status: Resolved (2) H/O knee surgery Status: Resolved (3) S/P cervical spinal fusion Status: Resolved (4) S/P IVC filter Status: Resolved (5) S/P lumbar fusion Status: Resolved (6) S/P T&A (status post tonsillectomy and adenoidectomy) Status: Resolved Family History FH: CAD (coronary artery disease) FATHER FH: breast cancer MOTHER Social History Smoking Status: Never Smoker Drug Use: none Marital Status: single Housing status: lives with roommate Occupational Status: retired Immunizations History of Influenza Vaccine: Yes Influenza Vaccine Date: Oct 21, 2014 History of Tetanus Vaccine?: Yes Tetanus Immunization Date: Mar 15, 1972 History of Pneumococcal: Yes Pneumococcal Date: Feb 05, 2009 History of Hepatitis B Vaccine: Yes Hepatitis Immunization Date: June 18, 2013 Multi-Drug Resistant Organisms History of MDRO: No Allergies Coded Allergies: Acetaminophen (Verified Allergy, Severe, ESLD (BETANCOURT). on Liver transplant list. Cannot have APAP., 10/24/16) Morphine (Verified Allergy, Severe, RED HIVE WENT UP ARM FROM IV SITE, ) NSAIDs (Verified Allergy, Severe, DUE TO LIVER DISEAS, 10/24/16) Penicillins (Verified Allergy, Severe, JOINT SWELLING AND FEVER, 10/24/16) Fentanyl (Verified Allergy, Intermediate, rash, 10/24/16) Levofloxacin (Verified Allergy, Intermediate, RASH, 10/24/16) pt developed erythema at site of IV injection with itching Vancomycin (Verified Allergy, Mild, HIVES, 10/24/16) HIVES Tramadol (Verified Allergy, Unknown, NOT TO TAKE WITH KEPPRA DUE TO SEIZURE RISK, 10/24/16) Home Medications Scheduled Escitalopram Oxalate (Lexapro), 20 MG PO DAILY Ferrous Sulfate (Kp Ferrous Sulfate), 325 MG PO BID Furosemide (Lasix), 40 MG PO DAILY Insulin Aspart (Novolog), 14 UNITS SQ TIDM Insulin Glargine (Lantus), 38 UNITS SC BID Lactulose (Chronulac), 30 ML PO QID Levetiractam (Levetiracetam), 500 MG PO BID Levothyroxine Sodium (Synthroid), 75 MCG PO QAM Magnesium Oxide (Mag-Ox), 400 MG PO BID Melatonin (Kp Melatonin), 2 MG PO HS Pantoprazole (Protonix), 40 MG PO BID Polyethylene Glycol 3350 (Miralax), 17 GM PO BID Pyridoxine Hcl (Vitamin B-6), 25 MG PO HS Spironolactone (Aldactone), 100 MG PO BID Scheduled PRN Diphenhydramine Hcl (Benadryl), 25 MG PO BID PRN for Itching Hydromorphone Hcl (Dilaudid), 4 MG PO Q6 PRN for Pain Ondasetron Odt (Zofran Odt), 1-2 MG SL Q8 PRN for Nausea or Vomiting Triamcinolone Acet (Aristocort 0.1%), 1 APPL EXT BID PRN for dermatitis Review of Systems Ten systems reviewed and negative except as noted in the HPI. Physical Exam Vital Signs Date Time Temp Pulse Resp B/P (MAP) Pulse Ox O2 Delivery O2 Flow Rate FiO2 10/24/16 16:36 36.9 77 12 118/67 98 10/24/16 16:00 77 12 118/67 98 Room Air 10/24/16 15:33 Room Air 10/24/16 15:00 71 8 115/65 94 Room Air 10/24/16 14:00 70 15 117/64 96 Room Air 10/24/16 13:12 75 10/24/16 12:30 69 13 113/59 94 Room Air 10/24/16 12:07 73 12 107/61 96 Room Air 10/24/16 11:00 71 12 105/67 99 Room Air 10/24/16 10:53 75 10/24/16 10:45 98 Room Air 10/24/16 10:45 36.9 75 15 127/72 98 Room Air General Appearance: no apparent distress (Ill appearing) Head: normocephalic, atraumatic Eyes: normal inspection, PERRL, + abnormal sclerae exam (Scleral icterus noted ) ENT: hearing grossly normal Neck: supple, no adenopathy, trachea midline Respiratory/Chest: chest non-tender, lungs clear, normal breath sounds, no respiratory distress, no accessory muscle use Cardiovascular: regular rate, rhythm, no JVD, no murmur, normal peripheral pulses Abdomen/GI: normal bowel sounds, no organomegaly, + tenderness (Diffuse TTP with mild ascites. Umbilical hernia visualized. ) Back: normal inspection Extremities/Musculoskelatal: no calf tenderness, normal capillary refill, + swelling (2+ bilateral edema of LE to knees) Neurologic/Psych: no motor/sensory deficits, alert, normal mood/affect, oriented x 3 Skin: normal color, warm/dry, no rash (Small areas of brusing on bilateral arms. ) Diagnostics Laboratory Results Results Past 24 Hours Test 10/24/16 11:09 10/24/16 11:53 10/24/16 16:10 Range/Units Bedside Glucose 384 70-99 mg/dl White Blood Count 6.61 4.8-10.8 K/uL Red Blood Count 4.12 4.7-6.1 M/uL Hemoglobin 11.8 14.0-18.0 g/dL Hematocrit 35.3 42-52 % Mean Corpuscular Volume 85.7 80-100 fL Mean Corpuscular Hemoglobin 28.6 25-34 pg Mean Corpuscular Hemoglobin Concent 33.4 32-36 g/dl Platelet Count 101 130-400 K/uL Mean Platelet Volume 10.4 7.4-10.4 fL Neutrophils (%) (Auto) 75.2 % Lymphocytes (%) (Auto) 10.4 % Monocytes (%) (Auto) 10.1 % Eosinophils (%) (Auto) 3.8 % Basophils (%) (Auto) 0.3 % Neutrophils # (Auto) 4.97 1.4-6.5 K/uL Lymphocytes # (Auto) 0.69 1.2-3.4 K/uL Monocytes # (Auto) 0.67 0.11-0.59 K/uL Eosinophils # (Auto) 0.25 0-0.5 K/uL Basophils # (Auto) 0.02 0-0.2 K/uL RDW Standard Deviation 50.8 36.4-46.3 fL RDW Coefficient of Variation 16.2 11.5-14.5 % Immature Granulocyte % (Auto) 0.2 % Immature Granulocyte # (Auto) 0.01 0.00-0.02 K/uL Prothrombin Time 14.7 9.0-12.0 SECONDS Prothromb Time International Ratio 1.4 0.9-1.1 Activated Partial Thromboplast Time 34.8 21.0-31.0 SECONDS Partial Thromboplastin Ratio 1.3 Sodium Level 135 136-145 mmol/L Potassium Level 4.3 3.5-5.1 mmol/L Chloride Level 100 98-107 mmol/L Carbon Dioxide Level 29 21-32 mmol/L Anion Gap 6.0 3-11 mmol/L Blood Urea Nitrogen 7 7-18 mg/dl Creatinine 0.91 0.60-1.40 mg/dl Est Creatinine Clear Calc Drug Dose 85.6 ml/min Estimated GFR () 104.3 Estimated GFR (Non- 90.0 BUN/Creatinine Ratio 8.1 10-20 Random Glucose 372 70-99 mg/dl Calcium Level 7.8 8.5-10.1 mg/dl Total Bilirubin 4.0 0.2-1 mg/dl Direct Bilirubin 1.6 0-0.2 mg/dl Aspartate Amino Transf (AST/SGOT) 131 15-37 U/L Alanine Aminotransferase (ALT/SGPT) 91 12-78 U/L Alkaline Phosphatase 176 45-117 U/L Ammonia 32.0 11-32 umol/L Troponin I 0.016 0-0.045 ng/ml Total Protein 5.4 6.4-8.2 gm/dl Albumin 2.7 3.4-5.0 gm/dl Lipase 58 73-393 U/L Beta-Hydroxybutyric Acid 1.23 0.2-2.81 mg/dL Diagnostic Radiology CXR: IMPRESSION: 1. Minimal persistent left basilar atelectasis or scarring. No new focal infiltrate. No pleural effusion. Normal EKG Impression Assessment and Plan This is a 61yo M with a PMH of BETANCOURT cirrhosis, hepatic encephalopathy, esophageal varices, thrombocytopenia, DM II and hypothyroidism who presents with confusion that began this morning. 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 Cirrhosis: -S/p TIPs procedure on 10/20 -Mild confusion but now A&Ox4 -Ammonia is wnl -Spoke with Santana welder 2nd shift, who recommended the following: -Continue lactulose 30mL QID -Continue diuretics -Start Rifaximin 550mg BID -Consult GI for further recs DM II: (uncontrolled) -BG of 372 on admission -Resumed home regimen of 38U Lantus BID, SSI -Glycemic consult for recs -BG checks AC HS Thrombocytopenia -Platelets of 101 -Monitor daily Esophageal Varices -Hgb stable, monitor Hypothyroidism -Continue Synthroid DVT Ppx: SCDs 2/2 thrombocytopenia Code status: FULL PCP: Alexander Dispo: Plan to return home once medically stable Attending Pt was seen and examined. Agreed with Jocelyn YUN physical exam, assessment and plan. 61yo M with multiple admission for ascites with PMH BETANCOURT, cirrhosis, hepatic encephalopathy, esophageal varices, thrombocytopenia, DM II and hypothyroidism who presents with confusion. Last Paracentesis was last Sunday where 8L of ascites fluid removed as per patient. Denies any chest pain, palpitation, dizziness and SOB, General- No acute distress Head- atraumatic Eyes- PERRL, EOMI ENT- oropharynx clear Neck- supple, no JVD Lungs- No wheezing Heart- regular rhythm Abdomen- normal bowel sounds, +tender, Ascites A/P 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 Cirrhosis: Continue lactulose 30mL, diuretics,Rifaximin 550mg BID GI consulted Lab, imaging reviewed Please refer to Jocelyn YUN documentation for other problems Shiva French MD Level of Care Med/Surg Advanced Directives Existing Living Will: Yes Existing Power of Nurse Practitioner Physicians Assistant: Yes Resuscitation Status FULL RESUSCITATION VTE Prophylaxis VTE Risk Assessment Done? Y/N: Yes Risk Level: High Given or contraindicated: SCD's
[2016-10-24 16:38] LABS: MANUAL MICROSCOPIC REQUIRED? NO; REVIEW REQ? NO; URINE BILIRUBIN 1+ (NEG)
[2016-10-24 17:03] VITALS: BP 110/67; PULSE 78; TEMP 36.8; O2SAT 97
[2016-10-24] MEDS: HYDROmorphone HCL 2 MG TAB PO PRN (17:48)
[2016-10-24] MEDS: LACTULOSE SYRUP 20 GM/30 ML UDC PO SCH ×3 (17:56→21:30)
[2016-10-24] MEDS: FERROUS SULFATE 325 MG TAB PO SCH (17:56)
[2016-10-24] MEDS: ONDANSETRON 4MG OD TAB SL PRN (17:56)
[2016-10-24] MEDS: SPIRONOLACTONE 100 MG TAB PO SCH (17:56)
[2016-10-24] MEDS: INSULIN ASPART 100 UNITS/ML 3 ML PEN SC SCH ×2 (18:00→21:29)
[2016-10-24] MEDS ORDERED: PHARMACY GLYCEMIC MGMT CONSULT PRN (20:07)
[2016-10-24] MEDS ORDERED: INSULIN GLARGINE SOLOSTAR 100 UNITS/ML 3 ML PEN SC SCH (21:00)
[2016-10-24] MEDS ORDERED: MELATONIN 2 MG PO SCH (21:00)
[2016-10-24] MEDS: LEVETIRACETAM 500 MG TAB PO SCH (21:18)
[2016-10-24] MEDS: RIFAXIMIN TAB 550 MG TAB PO SCH (21:18)
[2016-10-24] MEDS: MAGNESIUM OXIDE 400 MG TAB PO SCH (21:18)
[2016-10-24] MEDS: PYRIDOXINE HCL 50 MG TAB PO SCH (21:19)
[2016-10-24] MEDS: PANTOprazole SOD 40 MG TAB PO SCH (21:20)
[2016-10-25 00:03] VITALS: BP 98/51; PULSE 73; TEMP 36.8; O2SAT 97
[2016-10-25] MEDS: HYDROmorphone HCL 2 MG TAB PO PRN ×3 (00:50→21:20)
[2016-10-25] MEDS: INSULIN ASPART 100 UNITS/ML 3 ML PEN SC SCH ×6 (00:53→21:00)
[2016-10-25] MEDS: LEVOTHYROXINE 75 MCG TAB PO SCH (05:13)
[2016-10-25 07:38] LABS: HEMATOCRIT 33.7 % (42-52); MEAN CELL VOLUME 85.1 fL (80-100); MEAN CORPUSCULAR HEMOGLOBIN 28.5 pg (25-34); MEAN CORPUSCULAR HGB CONC 33.5 g/dl (32-36); RED BLOOD COUNT 3.96 M/uL (4.7-6.1); WHITE BLOOD COUNT 7.03 K/uL (4.8-10.8)
[2016-10-25 07:45] LABS: MEAN PLATELET VOLUME 9.5 fL (7.4-10.4); PLATELET COUNT 99 K/uL (130-400)
[2016-10-25 07:50] LABS: INR 1.4 (0.9-1.1); PROTHROMBIN TIME (PATIENT) 15.1 SECONDS (9.0-12.0)
[2016-10-25 08:07] LABS: BUN/CREATININE RATIO 7.5 (10-20); CALCIUM 8.2 mg/dl (8.5-10.1); CREATININE 0.77 mg/dl (0.60-1.40); POTASSIUM 3.8 mmol/L (3.5-5.1)
[2016-10-25 08:24] VITALS: BP 110/68; PULSE 67; TEMP 36.9; O2SAT 98
[2016-10-25] MEDS: FUROSEMIDE 40 MG TAB PO SCH (08:27)
[2016-10-25] MEDS: RIFAXIMIN TAB 550 MG TAB PO SCH ×2 (08:27→21:21)
[2016-10-25] MEDS: LEVETIRACETAM 500 MG TAB PO SCH ×2 (08:27→21:21)
[2016-10-25] MEDS: SPIRONOLACTONE 100 MG TAB PO SCH ×2 (08:27→18:36)
[2016-10-25] MEDS: MAGNESIUM OXIDE 400 MG TAB PO SCH ×2 (08:27→21:21)
[2016-10-25] MEDS: FERROUS SULFATE 325 MG TAB PO SCH ×2 (08:27→18:37)
[2016-10-25] MEDS: LACTULOSE SYRUP 20 GM/30 ML UDC PO SCH ×4 (08:27→21:00)
[2016-10-25] MEDS: ESCITALOPRAM OXALATE 20 MG TAB PO SCH (08:28)
[2016-10-25] MEDS: PANTOprazole SOD 40 MG TAB PO SCH ×2 (08:29→21:20)
[2016-10-25] MEDS: INSULIN GLARGINE SOLOSTAR 100 UNITS/ML 3 ML PEN SC SCH ×2 (08:33→21:42)
--- NOTE | 2016-10-25 11:22 | Pharmacy Progress Note ---
Glycemic Control Intl Consult Date of Service Oct 25, 2016. Scope Glycemic Pharmacist consulted by Dr. Alcazar on 10/24/16 for glycemic control and to write orders per LTAC, located within [facility] inpatient glycemic control protocol Objective Weight (Kilograms): 71.900 Accuchecks BSG (last 24hrs): Test 10/24/16 11:09 10/24/16 11:53 10/24/16 17:13 10/24/16 19:46 Bedside Glucose 384 mg/dl (70-99) 339 mg/dl (70-99) 256 mg/dl (70-99) Random Glucose 372 mg/dl (70-99) Test 10/25/16 00:37 10/25/16 04:38 10/25/16 07:04 10/25/16 07:20 Bedside Glucose 211 mg/dl (70-99) 169 mg/dl (70-99) 146 mg/dl (70-99) Random Glucose 143 mg/dl (70-99) Laboratory Data (last 24hrs) Test 10/24/16 11:53 10/25/16 07:20 Anion Gap 6.0 mmol/L 6.0 mmol/L BUN/Creatinine Ratio 8.1 7.5 Blood Urea Nitrogen 7 mg/dl 6 mg/dl Creatinine 0.91 mg/dl 0.77 mg/dl Potassium Level 4.3 mmol/L 3.8 mmol/L Sodium Level 135 mmol/L 135 mmol/L White Blood Count 6.61 K/uL 7.03 K/uL Red Blood Count 4.12 M/uL Hemoglobin 11.8 g/dL Hematocrit 35.3 % Mean Corpuscular Volume 85.7 fL Mean Corpuscular Hemoglobin 28.6 pg Mean Corpuscular Hemoglobin Concent 33.4 g/dl Platelet Count 101 K/uL Mean Platelet Volume 10.4 fL Neutrophils (%) (Auto) 75.2 % Lymphocytes (%) (Auto) 10.4 % Monocytes (%) (Auto) 10.1 % Eosinophils (%) (Auto) 3.8 % Basophils (%) (Auto) 0.3 % Neutrophils # (Auto) 4.97 K/uL Lymphocytes # (Auto) 0.69 K/uL Monocytes # (Auto) 0.67 K/uL Eosinophils # (Auto) 0.25 K/uL Basophils # (Auto) 0.02 K/uL Recent Pertinent Medications Outpatient Anti-diabetic Regimen: * Lantus 38 units SQ BID + Novolog 14 units TID with meals plus SS * A1c = 10.7 % 10/02/16 The patient is currently receiving: * Basal insulin: Lantus 38 units every 12 hours * Correctional Insulin: Novolog Correction per scale ACHS Goal Range: Low 110 mg/dL - High 150 mg/dL Correction Factor: 25 mg/dL/unit * Prandial insulin: Per carb ratio of 1 unit per 15 grams CHO consumed Assessment & Plan ASSESSMENT: * 61 yr old T2DM male admitted with confusion. Hyperglycemia on admission (BSG of 384 mg/dL). * Patient is well known to the Glycemic Service. He takes a significant amount of insulin at home; 118 units plus sliding scale. During recent admissions he has used 80-106 units per day. * ADA & AACE recommend a goal blood sugar range 140-180 mg/dl for the majority of critically ill & non-critically ill patients. However, more stringent targets may be selected in individual cases. Will utilize more stringent goal of 110-150mg/dl based on patient age & comorbidities. * Fasting BSG of 146 mg/dL is slightly above goal, however, I will decrease basal insulin because his home dose of 38 units BID has been too much for the patient during past admissions. * Post prandial BSGs are elevated - tighten CF/CR. PLAN FOR INPATIENT GLYCEMIC CONTROL: * Basal insulin - decrease * Decrease Lantus 30 mg SQ BID * Correctional Insulin with NOVOLOG per scale ACHS - tighten * Goal Range: Low 110 mg/dL - High 150 mg/dL * Correction Factor: 15 mg/dL/unit * Nutritional / Prandial insulin per carb ratio of 1 unit per 4 grams CHO consumed * Please note that the plan above was derived based on current level of insulin resistance and hospital stress. These recommendations are appropriate for inpatient admission only. Plan of care upon discharge will need to be reassessed to avoid potential outpatient hypo/hyperglycemia. Thank you.
--- NOTE | 2016-10-25 11:28 | Gastrointestinal Consultation ---
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 GI was consulted for management. Of note, consult was called to Dr. Culver last night, who had suggested transfer to [place]. Per review of record, [place] did not accept transfer as patient could be adequately cared for at [facility]. Pt was seen and evaluated, chart reviewed. He tells me that he was not aware he could have worsening hepatic encephalopathy followings TIPS procedure. He tells me he has been taking his medications as prescribed, but did not have a BM in 2 days. On arrival, VSS, NH3 was normal at 32, w/ elevated LFTS including TB around 4. Per review of records, he had RUQ pain yesterday. Chest XR: Minimal persistent left basilar atelectasis or scarring. No new focal infiltrate. No pleural effusion. Past Medical/Surgical History Medical Problems: (1) Abdominal pain Status: Acute (2) Abdominal pain Status: Acute (3) Abdominal pain Status: Acute (4) Acute hyperglycemia Status: Acute (5) Ambulatory dysfunction Status: Acute (6) Ambulatory dysfunction Status: Acute (7) Anasarca Status: Acute (8) Anemia Status: Acute (9) Anemia Status: Acute (10) Anemia Status: Acute (11) Arm pain, right Status: Acute (12) Ascites Status: Acute (13) Ascites Status: Acute (14) Ascites Status: Acute (15) Ascites Status: Acute (16) Ascites Status: Acute (17) Cellulitis of scrotum Status: Acute (18) Chest pain Status: Acute (19) Chronic liver failure Status: Acute (20) Chronic low back pain Status: Acute (21) Cirrhosis Status: Acute (22) Cirrhosis of liver Status: Acute (23) Contusion of left foot Status: Acute (24) Dehydration Status: Acute (25) Diarrhea Status: Acute (26) Diarrhea Status: Acute (27) Diffuse abdominal pain Status: Acute (28) Diffuse abdominal pain Status: Acute (29) Diffuse abdominal pain Status: Acute (30) Diffuse abdominal pain Status: Acute (31) Dyspnea Status: Acute (32) Dyspnea Status: Acute (33) Failure of outpatient treatment Status: Acute (34) Fall Status: Acute (35) Generalized weakness Status: Acute (36) Generalized weakness Status: Acute (37) Hepatic encephalopathy Status: Acute (38) HHNC (hyperglycemic hyperosmolar nonketotic coma) Status: Acute (39) Hyperammonemia Status: Acute (40) Hyperglycemia Status: Acute (41) Hyperglycemia Status: Acute (42) Hyperglycemia Status: Acute (43) Hyperglycemia Status: Acute (44) Hyperglycemia due to type 2 diabetes mellitus Status: Acute (45) Hypoglycemia Status: Acute (46) Hypoglycemia Status: Acute (47) Left arm pain Status: Acute (48) Left sided chest pain Status: Acute (49) Muscle weakness Status: Acute (50) Nausea vomiting and diarrhea Status: Acute (51) Nausea, vomiting, and diarrhea Status: Acute (52) Thrombocytopenia Status: Acute (53) Thrombocytopenia Status: Acute (54) Weakness Status: Acute Past Medical History: NAFLD cirrhosis, SBP, ascites, HE, back pain, esophageal varices, thrombocytopenia, T2DM and hypothyroidism Past Surgical History: EGD, colon, TIPS, IVC filter, Cervical spinal fusion, Lumbar fusion, T&A Family History FH: CAD (coronary artery disease) FATHER FH: breast cancer MOTHER Social History Smoking Status: Never Smoker Alcohol Use: none Drug Use: none Marital Status: single Housing Status: lives with roommate Occupation Status: retired Allergies Coded Allergies: Acetaminophen (Verified Allergy, Severe, ESLD (BETANCOURT). on Liver transplant list. Cannot have APAP., 10/24/16) Morphine (Verified Allergy, Severe, RED HIVE WENT UP ARM FROM IV SITE, ) NSAIDs (Verified Allergy, Severe, DUE TO LIVER DISEAS, 10/24/16) Penicillins (Verified Allergy, Severe, JOINT SWELLING AND FEVER, 10/24/16) Fentanyl (Verified Allergy, Intermediate, rash, 10/24/16) Levofloxacin (Verified Allergy, Intermediate, RASH, 10/24/16) pt developed erythema at site of IV injection with itching Vancomycin (Verified Allergy, Mild, HIVES, 10/24/16) HIVES Tramadol (Verified Allergy, Unknown, NOT TO TAKE WITH KEPPRA DUE TO SEIZURE RISK, 10/24/16) Current Medications Home Meds and Scripts Medications Dose Route/Sig Max Daily Dose Days Date Category Dose Instructions Kp Melatonin (Melatonin) 3 Mg Tab 2 Mg PO HS 30 10/24/16 Reported Lexapro (Escitalopram Oxalate) 20 Mg Tab 20 Mg PO DAILY 10/01/16 Reported Benadryl (Diphenhydramine Hcl) 25 Mg Cap 25 Mg PO BID PRN 09/18/16 Reported Miralax (Polyethylene Glycol 3350) 1 Pow Pow 17 Gm PO BID 08/29/16 Reported Lantus (Insulin Glargine) 100 Unit/Ml Inj 38 Units SC BID 08/29/16 Reported Lasix (Furosemide) 40 Mg Tab 40 Mg PO DAILY 08/17/16 Reported Dilaudid (Hydromorphone Hcl) 4 Mg Tab 4 Mg PO Q6 PRN 07/01/16 Reported Novolog (Insulin Aspart) 100 Units/Ml Inj 14 Units SQ TIDM 05/15/16 Reported PLUS SLIDING SCALE Kp Ferrous Sulfate (Ferrous Sulfate) 325 Mg Tab 325 Mg PO BID 04/27/16 Reported Chronulac (Lactulose) 10 Gm/15 Ml Syrp 30 Ml PO QID 03/27/16 Reported Aristocort 0.1% (Triamcinolone Acet) 90 Appln/30 Gm Cr 1 Appl EXT BID PRN 03/27/16 Reported Levetiracetam (Levetiractam) 500 Mg Tab 500 Mg PO BID 03/13/16 Reported Aldactone (Spironolactone) 100 Mg Tab 100 Mg PO BID 12/10/15 Reported Vitamin B-6 (Pyridoxine Hcl) 25 Mg Tab 25 Mg PO HS 06/04/15 Reported Synthroid (Levothyroxine Sodium) 75 Mcg Tab 75 Mcg PO QAM 05/07/15 Reported Zofran Odt (Ondansetron HCl) 4 Mg Tab 1-2 Mg SL Q8 PRN 05/07/15 Reported Protonix (Pantoprazole) 40 Mg Tab 40 Mg PO BID 08/04/14 Reported Mag-Ox (Magnesium Oxide) 400 Mg Tab 400 Mg PO BID 09/29/11 Reported Review of Systems Constitutional: No fever, No chills Respiratory: No cough, No shortness of breath Cardiac: No chest pain Abdomen: + pain, No nausea, No vomiting, No diarrhea, No constipation Physical Exam Date Time Temp Pulse Resp B/P (MAP) Pulse Ox O2 Delivery O2 Flow Rate FiO2 10/25/16 08:24 36.9 67 16 110/68 (82) 98 Room Air 10/25/16 08:15 Room Air 10/25/16 00:03 36.8 73 20 98/51 (67) 97 Room Air 10/25/16 00:01 Room Air 10/24/16 17:03 36.8 78 18 110/67 (81) 97 Room Air 10/24/16 16:36 36.9 77 12 118/67 98 10/24/16 16:30 Room Air 10/24/16 16:00 77 12 118/67 98 Room Air 10/24/16 15:33 Room Air 10/24/16 15:00 71 8 115/65 94 Room Air 10/24/16 14:00 70 15 117/64 96 Room Air 10/24/16 13:12 75 10/24/16 12:30 69 13 113/59 94 Room Air 10/24/16 12:07 73 12 107/61 96 Room Air General Appearance: no apparent distress Eyes: PERRL ENT: hearing grossly normal Neck: supple Respiratory/Chest: lungs clear, normal breath sounds Cardiovascular: regular rate, rhythm Abdomen: normal bowel sounds, soft, no organomegaly, no pulsatile mass, + tenderness (bilateral lower quadrant abdominal pain) Extremities: no pedal edema Neurologic/Psych: alert, normal mood/affect, oriented x 3 Skin: warm/dry, no rash, + jaundice Laboratory Results Last 24 Hours Test 10/24/16 11:53 10/24/16 16:10 10/24/16 17:13 10/24/16 19:46 White Blood Count 6.61 K/uL Red Blood Count 4.12 M/uL Hemoglobin 11.8 g/dL Hematocrit 35.3 % Mean Corpuscular Volume 85.7 fL Mean Corpuscular Hemoglobin 28.6 pg Mean Corpuscular Hemoglobin Concent 33.4 g/dl Platelet Count 101 K/uL Mean Platelet Volume 10.4 fL Neutrophils (%) (Auto) 75.2 % Lymphocytes (%) (Auto) 10.4 % Monocytes (%) (Auto) 10.1 % Eosinophils (%) (Auto) 3.8 % Basophils (%) (Auto) 0.3 % Neutrophils # (Auto) 4.97 K/uL Lymphocytes # (Auto) 0.69 K/uL Monocytes # (Auto) 0.67 K/uL Eosinophils # (Auto) 0.25 K/uL Basophils # (Auto) 0.02 K/uL RDW Standard Deviation 50.8 fL RDW Coefficient of Variation 16.2 % Immature Granulocyte % (Auto) 0.2 % Immature Granulocyte # (Auto) 0.01 K/uL Prothrombin Time 14.7 SECONDS Prothromb Time International Ratio 1.4 Activated Partial Thromboplast Time 34.8 SECONDS Partial Thromboplastin Ratio 1.3 Sodium Level 135 mmol/L Potassium Level 4.3 mmol/L Chloride Level 100 mmol/L Carbon Dioxide Level 29 mmol/L Anion Gap 6.0 mmol/L Blood Urea Nitrogen 7 mg/dl Creatinine 0.91 mg/dl Est Creatinine Clear Calc Drug Dose 85.6 ml/min Estimated GFR () 104.3 Estimated GFR (Non- 90.0 BUN/Creatinine Ratio 8.1 Random Glucose 372 mg/dl Calcium Level 7.8 mg/dl Total Bilirubin 4.0 mg/dl Direct Bilirubin 1.6 mg/dl Aspartate Amino Transf (AST/SGOT) 131 U/L Alanine Aminotransferase (ALT/SGPT) 91 U/L Alkaline Phosphatase 176 U/L Ammonia 32.0 umol/L Troponin I 0.016 ng/ml Total Protein 5.4 gm/dl Albumin 2.7 gm/dl Lipase 58 U/L Beta-Hydroxybutyric Acid 1.23 mg/dL Urine Color ORANGE Urine Appearance CLEAR Urine pH 5.5 Urine Specific Lutz 1.033 Urine Protein NEG Urine Glucose (UA) 3+ Urine Ketones NEG Urine Occult Blood NEG Urine Nitrite POS Urine Bilirubin 1+ Urine Urobilinogen NEG Urine Leukocyte Esterase NEG Urine WBC (Auto) 1-5 /hpf Urine RBC (Auto) 0-4 /hpf Urine Hyaline Casts (Auto) 0 /lpf Urine Epithelial Cells (Auto) 0-5 /lpf Urine Bacteria (Auto) NEG Bedside Glucose 339 mg/dl 256 mg/dl Test 10/25/16 00:37 10/25/16 04:38 10/25/16 07:04 10/25/16 07:20 Bedside Glucose 211 mg/dl 169 mg/dl 146 mg/dl White Blood Count 7.03 K/uL Red Blood Count 3.96 M/uL Hemoglobin 11.3 g/dL Hematocrit 33.7 % Mean Corpuscular Volume 85.1 fL Mean Corpuscular Hemoglobin 28.5 pg Mean Corpuscular Hemoglobin Concent 33.5 g/dl RDW Standard Deviation 50.1 fL RDW Coefficient of Variation 16.4 % Platelet Count 99 K/uL Mean Platelet Volume 9.5 fL Prothrombin Time 15.1 SECONDS Prothromb Time International Ratio 1.4 Sodium Level 135 mmol/L Potassium Level 3.8 mmol/L Chloride Level 101 mmol/L Carbon Dioxide Level 28 mmol/L Anion Gap 6.0 mmol/L Blood Urea Nitrogen 6 mg/dl Creatinine 0.77 mg/dl Est Creatinine Clear Calc Drug Dose 101.2 ml/min Estimated GFR () 112.7 Estimated GFR (Non- 97.3 BUN/Creatinine Ratio 7.5 Random Glucose 143 mg/dl Calcium Level 8.2 mg/dl Total Bilirubin 4.4 mg/dl Aspartate Amino Transf (AST/SGOT) 100 U/L Alanine Aminotransferase (ALT/SGPT) 72 U/L Alkaline Phosphatase 177 U/L Total Protein 5.1 gm/dl Albumin 2.5 gm/dl Globulin 2.6 gm/dl Albumin/Globulin Ratio 1.0 Impression Patient is a 61 year old male with NAFLD cirrhosis decompensated by ascites, hepatic encephalology and varices s/p TIPS in [place] on 10/20/16. Pt tolerated procedure well and was doing well up until a few days ago when his roommate noted confusion and pt reports he was feeling groggy. Labs on admission were pertinent for a normal NH3. It does not appear his confusion has been worked up otherwise. Plan - lactulose 30mL QID - Start Rifaximin 550mg BID - Continue present diuretics - RUQ US - Liver duplex scan - Work up for confusion per primary service given normal NH3 - consider head imaging, blood cx, urine cx MELD - 18 GI following, call with questions or concerns. ATTESTATION: I have performed a history and physical examination of this patient and reviewed the electronic record. Specifically, on physical examination there is no further confusion or asterixis. I have discussed the case with MAYI Mcgovern. The above note reflects my findings, conclusions, and recommendations. Adrian Mo MD
[2016-10-25 14:58] VITALS: BP 105/62; PULSE 74; TEMP 36.7; O2SAT 98
--- NOTE | 2016-10-25 17:45 | DIAGNOSTIC IMAGING REPORT ---
ABDOMINAL ULTRASOUND, RIGHT UPPER QUADRANT HISTORY: Hepatic encephalopathy. Cirrhosis. COMPARISON: CT of the abdomen and pelvis August 17, 2016 and abdominal ultrasound December 14, 2013. FINDINGS: The liver is cirrhotic. No hepatic lesions are identified by sonography. The pancreas is obscured by overlying bowel gas. Moderate perihepatic ascites is noted. Gallstones are noted within the gallbladder. The common bile duct is obscured on this examination. No intrahepatic biliary ductal dilatation is identified. There is no right hydronephrosis. IMPRESSION: 1. Cirrhotic liver. 2. Cholelithiasis. No significant gallbladder wall thickening. 3. Largely obscured common bile duct. No intrahepatic biliary ductal dilatation. 4. Moderate perihepatic ascites. 5. Obscured pancreas. Electronically signed by: Luisito Obregon M.D. 10/25/2016 5:44 PM Dictated Date/Time: 10/25/2016 5:37 PM
--- NOTE | 2016-10-25 18:14 | DIAGNOSTIC IMAGING REPORT ---
HEPATIC AND PORTAL VEIN DUPLEX ULTRASOUND STUDY CLINICAL HISTORY: Cirrhosis. Hepatic encephalopathy. History of TIPS procedure. COMPARISON STUDY: Biliary ultrasound dated 10/25/2016 FINDINGS: There is ascites present. There is a TIPS shunt which appears patent demonstrating a velocity of approximately 70 cm/s. The main portal vein is patent with normal directional flow. The left portal vein is patent. The right portal vein was not visualized. The hepatic veins are patent. Splenic vein is patent. IMPRESSION: 1. Nonvisualization the right portal vein, likely secondary to an indwelling TIPS shunt 2. The TIPS shunt is patent 3. The hepatic veins are patent. 4. The splenic vein, left portal vein, and main portal vein are patent with normal directional flow 5. Ascites Electronically signed by: Pawan Garner M.D. 10/25/2016 6:13 PM Dictated Date/Time: 10/25/2016 6:07 PM
--- NOTE | 2016-10-25 19:05 | Progress Note ---
Medicine Progress Note Date & Time of Visit: Oct 25, 2016 at 4:58. Subjective Pt was seen and examined Lying in bed with no distress complaint of abdominal pain denies any chest pain, palpitation, dizziness and sob Objective Last 8 Hrs Date Time Temp Pulse Resp B/P (MAP) Pulse Ox O2 Delivery O2 Flow Rate FiO2 10/25/16 14:58 36.7 74 18 105/62 (76) 98 Room Air Physical Exam: General- no acute distress Head- atraumatic Eyes- PERRL, EOMI ENT- oropharynx clear Neck- supple, no JVD Lungs- clear to auscultation Heart- regular rhythm Abdomen- normal bowel sounds, tenderness on palpation, ascites Extremities-no calf tenderness Neuro- alert, oriented x 3; PERRL, EOMI; no facial palsy Skin- warm & dry Laboratory Results: Last 24 Hours Test 10/24/16 19:46 10/25/16 00:37 10/25/16 04:38 10/25/16 07:04 Bedside Glucose 256 mg/dl 211 mg/dl 169 mg/dl 146 mg/dl Test 10/25/16 07:20 10/25/16 11:24 White Blood Count 7.03 K/uL Red Blood Count 3.96 M/uL Hemoglobin 11.3 g/dL Hematocrit 33.7 % Mean Corpuscular Volume 85.1 fL Mean Corpuscular Hemoglobin 28.5 pg Mean Corpuscular Hemoglobin Concent 33.5 g/dl RDW Standard Deviation 50.1 fL RDW Coefficient of Variation 16.4 % Platelet Count 99 K/uL Mean Platelet Volume 9.5 fL Prothrombin Time 15.1 SECONDS Prothromb Time International Ratio 1.4 Sodium Level 135 mmol/L Potassium Level 3.8 mmol/L Chloride Level 101 mmol/L Carbon Dioxide Level 28 mmol/L Anion Gap 6.0 mmol/L Blood Urea Nitrogen 6 mg/dl Creatinine 0.77 mg/dl Est Creatinine Clear Calc Drug Dose 101.2 ml/min Estimated GFR () 112.7 Estimated GFR (Non- 97.3 BUN/Creatinine Ratio 7.5 Random Glucose 143 mg/dl Calcium Level 8.2 mg/dl Total Bilirubin 4.4 mg/dl Aspartate Amino Transf (AST/SGOT) 100 U/L Alanine Aminotransferase (ALT/SGPT) 72 U/L Alkaline Phosphatase 177 U/L Total Protein 5.1 gm/dl Albumin 2.5 gm/dl Globulin 2.6 gm/dl Albumin/Globulin Ratio 1.0 Bedside Glucose 138 mg/dl Assessment & Plan 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 Cirrhosis: -S/p TIPs procedure on 10/20 -Mild confusion but now A&Ox4 -No focal neuro deficit - Ammonia level on admission wnl -Continue lactulose 30mL QID, diuretics ,Rifaximin 550mg BID - GI on board - Resolved DM II: uncontrolled Last hba1c 10.7 on 09/21 - Continue Lantus BID, SSI -Glycemic consult for recs -Continue monitor BS Thrombocytopenia -Platelets of 99 -Monitor daily Esophageal Varices -Hgb stable stable Hypothyroidism -Continue Synthroid DVT Ppx: SCDs 2/2 thrombocytopenia Code status: FULL PCP: Alexander Dispo: Plan to return home once medically stable Consultants: Gastro Current Inpatient Medications: Current Inpatient Medications Medications (Trade) Dose Ordered Sig/Ryan Route Start Time Stop Time Status Last Admin Dose Admin Insulin Aspart (novoLOG ASPART) SLIDING SCALE If C... ACHS SC 10/24/16 17:00 11/23/16 16:59 10/25/16 18:36 11 UNITS Glucose (Glucose 40% Gel) 15-30 GRAMS 15 GRAMS... UD PRN PO 10/24/16 15:30 11/23/16 15:29 Glucose (Glucose Chew Tab) 4-8 Tablets 4 Tabl... UD PRN PO 10/24/16 15:30 11/23/16 15:29 Dextrose (Dextrose 50% 50ML Syringe) 25-50ML OF 50% DW IV FOR... UD PRN IV 10/24/16 15:30 11/23/16 15:29 Glucagon (Glucagon Inj) 1 mg UD PRN SQ 10/24/16 15:30 11/23/16 15:29 Rifaximin (Xifaxan Tab) 550 mg BID PO 10/24/16 21:00 11/23/16 20:59 10/25/16 08:27 550 MG Diphenhydramine HCl (Benadryl Cap) 25 mg BID PRN PO 10/24/16 16:00 11/23/16 15:59 Escitalopram Oxalate (Lexapro Tab) 20 mg DAILY PO 10/25/16 09:00 11/24/16 08:59 10/25/16 08:28 20 MG Furosemide (Lasix Tab) 40 mg DAILY PO 10/25/16 09:00 11/24/16 08:59 10/25/16 08:27 40 MG Hydromorphone HCl (Dilaudid Tab) 4 mg Q6 PRN PO 10/24/16 16:00 11/07/16 15:59 10/25/16 08:34 4 MG Lactulose (Chronulac Syrup) 20 gm QID PO 10/24/16 17:00 11/23/16 16:59 10/25/16 18:36 20 GM Levetiracetam (Keppra Tab) 500 mg BID PO 10/24/16 21:00 11/23/16 20:59 10/25/16 08:27 500 MG Levothyroxine Sodium (Synthroid Tab) 75 mcg DAILYBB PO 10/25/16 06:30 11/24/16 06:29 10/25/16 05:13 75 MCG Magnesium Oxide (Mag-Ox Tab) 400 mg BID PO 10/24/16 21:00 11/23/16 20:59 10/25/16 08:27 400 MG Ondansetron HCl (Zofran Odt) 2 mg Q8 PRN SL 10/24/16 16:00 11/23/16 15:59 10/24/16 17:56 2 MG Pantoprazole Sodium (Protonix Tab) 40 mg BID PO 10/24/16 21:00 11/23/16 20:59 10/25/16 08:29 40 MG Spironolactone (Aldactone Tab) 100 mg BID17 PO 10/24/16 17:00 11/23/16 16:59 10/25/16 18:36 100 MG Triamcinolone Acetonide (Kenalog 0.1% Cream) 1 appln BID PRN EXT 10/24/16 16:00 11/23/16 15:59 Ferrous Sulfate (Feosol Tab) 325 mg BIDM PO 10/24/16 17:00 11/23/16 16:59 10/25/16 18:37 325 MG Pyridoxine HCl (Vitamin B-6 Tab) 25 mg HS PO 10/24/16 21:00 11/23/16 20:59 10/24/16 21:19 25 MG Miscellaneous Information (Consult Glycemic Management Pharmacy) 1 ea UD PRN N/A 10/24/16 20:07 11/23/16 20:06 Insulin Glargine (Lantus Solostar Pen) 30 units Q12 SC 10/25/16 09:00 11/24/16 08:59 10/25/16 08:33 30 UNITS
[2016-10-25] MEDS: PYRIDOXINE HCL 50 MG TAB PO SCH (21:45)
[2016-10-25 23:19] VITALS: BP 96/60; PULSE 79; TEMP 36.8; O2SAT 97
[2016-10-26] MEDS ORDERED: ALUMINUM/MAGNESIUM SUSP 30 ML UDC PO ONE (00:38)
[2016-10-26] MEDS ORDERED: ALUMINUM/MAGNESIUM SUSP 30 ML UDC PO PRN (00:45)
[2016-10-26] MEDS ORDERED: ALUMINUM/MAGNESIUM SUSP 30 ML UDC ONE (00:45)
[2016-10-26] MEDS: LEVOTHYROXINE 75 MCG TAB PO SCH (06:38)
[2016-10-26 07:21] VITALS: BP 104/57; PULSE 75; TEMP 36.6; O2SAT 97
[2016-10-26 07:52] LABS: HEMATOCRIT 32.4 % (42-52); MEAN CELL VOLUME 84.6 fL (80-100); MEAN CORPUSCULAR HEMOGLOBIN 28.5 pg (25-34); MEAN CORPUSCULAR HGB CONC 33.6 g/dl (32-36); RED BLOOD COUNT 3.83 M/uL (4.7-6.1); WHITE BLOOD COUNT 5.97 K/uL (4.8-10.8)
[2016-10-26] MEDS: LACTULOSE SYRUP 20 GM/30 ML UDC PO SCH ×4 (08:09→21:07)
[2016-10-26] MEDS: HYDROmorphone HCL 2 MG TAB PO PRN ×3 (08:09→20:59)
[2016-10-26] MEDS: FERROUS SULFATE 325 MG TAB PO SCH ×2 (08:10→17:09)
[2016-10-26] MEDS: MAGNESIUM OXIDE 400 MG TAB PO SCH ×2 (08:10→20:59)
[2016-10-26] MEDS: SPIRONOLACTONE 100 MG TAB PO SCH ×2 (08:10→17:10)
[2016-10-26] MEDS: PANTOprazole SOD 40 MG TAB PO SCH ×2 (08:11→20:58)
[2016-10-26] MEDS: RIFAXIMIN TAB 550 MG TAB PO SCH ×2 (08:11→20:59)
[2016-10-26] MEDS: ESCITALOPRAM OXALATE 20 MG TAB PO SCH (08:12)
[2016-10-26] MEDS: FUROSEMIDE 40 MG TAB PO SCH (08:12)
[2016-10-26] MEDS: LEVETIRACETAM 500 MG TAB PO SCH ×2 (08:12→20:58)
[2016-10-26 08:16] LABS: BUN/CREATININE RATIO 6.5 (10-20); CREATININE 0.74 mg/dl (0.60-1.40)
[2016-10-26] MEDS: INSULIN ASPART 100 UNITS/ML 3 ML PEN SC SCH ×4 (08:16→20:57)
[2016-10-26] MEDS: INSULIN GLARGINE SOLOSTAR 100 UNITS/ML 3 ML PEN SC SCH ×2 (08:17→21:01)
[2016-10-26 08:19] LABS: ALB/GLOB RATIO 0.9 (0.9-2)
[2016-10-26 08:46] LABS: PLATELET COUNT 80 K/uL (130-400)
[2016-10-26 08:47] LABS: PLT ESTIMATE DECREASED
--- NOTE | 2016-10-26 09:31 | Gastroenterology Progress Note ---
Progress Note Date of Service: Oct 26, 2016 Subjective Pt evaluation today including: conversation w/ patient, physical exam, chart review, lab review Pt seen and evaluated, chart reviewed. no acute events over night. Pt tells me epigastric discomfort w/ associated belching x 24 hours. He denies any radiation of this discomfort, specially no radiation to jaw or arms. Not worse with activity or exertion. symptoms unchanged with PO in take. No confusion per pt. Continues to have previously mentioned abdominal pain, can be periumbilical and right upper quadrant. LFTs remain stable from yesterday. RUQ US 10/25/16:Cirrhotic liver. Cholelithiasis. No significant gallbladder wall thickening. Largely obscured common bile duct. No intrahepatic biliary ductal dilatation. Moderate perihepatic ascites. Obscured pancreas. Duplex 10/25/16:Nonvisualization the right portal vein, likely secondary to an indwelling TIPS shunt The TIPS shunt is patent The hepatic veins are patent. The splenic vein, left portal vein, and main portal vein are patent with normal directional flow Ascites Review of Systems Constitutional: No fever, No chills Respiratory: No cough, No shortness of breath Cardiac: No chest pain Abdomen: + pain, No nausea, No vomiting, No diarrhea, No constipation Medications Current Inpatient Medications Medications (Trade) Dose Ordered Sig/Ryan Route Start Time Stop Time Status Last Admin Dose Admin Insulin Aspart (novoLOG ASPART) SLIDING SCALE If C... ACHS SC 10/24/16 17:00 11/23/16 16:59 10/26/16 08:16 7 UNITS Glucose (Glucose 40% Gel) 15-30 GRAMS 15 GRAMS... UD PRN PO 10/24/16 15:30 11/23/16 15:29 Glucose (Glucose Chew Tab) 4-8 Tablets 4 Tabl... UD PRN PO 10/24/16 15:30 11/23/16 15:29 Dextrose (Dextrose 50% 50ML Syringe) 25-50ML OF 50% DW IV FOR... UD PRN IV 10/24/16 15:30 11/23/16 15:29 Glucagon (Glucagon Inj) 1 mg UD PRN SQ 10/24/16 15:30 11/23/16 15:29 Rifaximin (Xifaxan Tab) 550 mg BID PO 10/24/16 21:00 11/23/16 20:59 10/26/16 08:11 550 MG Diphenhydramine HCl (Benadryl Cap) 25 mg BID PRN PO 10/24/16 16:00 11/23/16 15:59 Escitalopram Oxalate (Lexapro Tab) 20 mg DAILY PO 10/25/16 09:00 11/24/16 08:59 10/26/16 08:12 20 MG Furosemide (Lasix Tab) 40 mg DAILY PO 10/25/16 09:00 11/24/16 08:59 10/26/16 08:12 40 MG Hydromorphone HCl (Dilaudid Tab) 4 mg Q6 PRN PO 10/24/16 16:00 11/07/16 15:59 10/26/16 08:09 4 MG Lactulose (Chronulac Syrup) 20 gm QID PO 10/24/16 17:00 11/23/16 16:59 10/26/16 08:09 20 GM Levetiracetam (Keppra Tab) 500 mg BID PO 10/24/16 21:00 11/23/16 20:59 10/26/16 08:12 500 MG Levothyroxine Sodium (Synthroid Tab) 75 mcg DAILYBB PO 10/25/16 06:30 11/24/16 06:29 10/26/16 06:38 75 MCG Magnesium Oxide (Mag-Ox Tab) 400 mg BID PO 10/24/16 21:00 11/23/16 20:59 10/26/16 08:10 400 MG Ondansetron HCl (Zofran Odt) 2 mg Q8 PRN SL 10/24/16 16:00 11/23/16 15:59 10/24/16 17:56 2 MG Pantoprazole Sodium (Protonix Tab) 40 mg BID PO 10/24/16 21:00 11/23/16 20:59 10/26/16 08:11 40 MG Spironolactone (Aldactone Tab) 100 mg BID17 PO 10/24/16 17:00 11/23/16 16:59 10/26/16 08:10 100 MG Triamcinolone Acetonide (Kenalog 0.1% Cream) 1 appln BID PRN EXT 10/24/16 16:00 11/23/16 15:59 Ferrous Sulfate (Feosol Tab) 325 mg BIDM PO 10/24/16 17:00 11/23/16 16:59 10/26/16 08:10 325 MG Pyridoxine HCl (Vitamin B-6 Tab) 25 mg HS PO 10/24/16 21:00 11/23/16 20:59 10/25/16 21:45 25 MG Miscellaneous Information (Consult Glycemic Management Pharmacy) 1 ea UD PRN N/A 10/24/16 20:07 11/23/16 20:06 Al Hydroxide/Mg Hydroxide (Maalox Susp) 30 ml Q6H PRN PO 10/26/16 00:45 11/25/16 00:44 Insulin Glargine (Lantus Solostar Pen) 25 units Q12 SC 10/26/16 09:00 11/25/16 08:59 10/26/16 08:17 25 UNITS Objective Vital Signs Date Time Temp Pulse Resp B/P (MAP) Pulse Ox O2 Delivery O2 Flow Rate FiO2 10/26/16 08:00 Room Air 10/26/16 07:21 36.6 75 18 104/57 (73) 97 Room Air 10/26/16 00:00 Room Air 10/25/16 23:19 36.8 79 20 96/60 (72) 97 Room Air 10/25/16 16:30 Room Air 10/25/16 14:58 36.7 74 18 105/62 (76) 98 Room Air Physical Exam General Appearance: no apparent distress Eyes: PERRL ENT: hearing grossly normal Neck: supple Respiratory/Chest: lungs clear Cardiovascular: regular rate, rhythm Abdomen: normal bowel sounds, soft, no organomegaly, + tenderness Neurologic/Psych: alert, normal mood/affect, oriented x 3 Skin: warm/dry, no rash Laboratory Results Last 24 Hours Test 10/25/16 11:24 10/26/16 07:14 10/26/16 07:33 Bedside Glucose 138 mg/dl 73 mg/dl White Blood Count 5.97 K/uL Red Blood Count 3.83 M/uL Hemoglobin 10.9 g/dL Hematocrit 32.4 % Mean Corpuscular Volume 84.6 fL Mean Corpuscular Hemoglobin 28.5 pg Mean Corpuscular Hemoglobin Concent 33.6 g/dl RDW Standard Deviation 50.4 fL RDW Coefficient of Variation 16.7 % Platelet Count 80 K/uL Mean Platelet Volume 9.0 fL Platelet Estimate DECREASED Sodium Level 136 mmol/L Potassium Level 4.0 mmol/L Chloride Level 102 mmol/L Carbon Dioxide Level 29 mmol/L Anion Gap 5.0 mmol/L Blood Urea Nitrogen 5 mg/dl Creatinine 0.74 mg/dl Est Creatinine Clear Calc Drug Dose 106.6 ml/min Estimated GFR () 114.6 Estimated GFR (Non- 98.9 BUN/Creatinine Ratio 6.5 Random Glucose 72 mg/dl Calcium Level 8.0 mg/dl Total Bilirubin 4.3 mg/dl Aspartate Amino Transf (AST/SGOT) 93 U/L Alanine Aminotransferase (ALT/SGPT) 57 U/L Alkaline Phosphatase 167 U/L Total Protein 4.5 gm/dl Albumin 2.1 gm/dl Globulin 2.4 gm/dl Albumin/Globulin Ratio 0.9 Assessment and Plan Patient is a 61 year old male with NAFLD cirrhosis decompensated by ascites, hepatic encephalology and varices s/p TIPS in [place] on 10/20/16. Pt tolerated procedure well and was doing well up until a few days ago when his roommate noted confusion and pt reports he was feeling groggy. Labs on admission were pertinent for a normal NH3. It does not appear his confusion has been worked up otherwise. RUQ US w/ gallstones, TIPS patent on duplex. Has epigastric discomfort with burping belching x 24 hours, no other associated symptoms. Plan - lactulose 30mL QID - Start Rifaximin 550mg BID - Continue present diuretics - MRCP - Carafate 1G QID PRN epigastric discomfort - Work up for confusion per primary service given normal NH3 - consider head imaging, blood cx, urine cx Chest discomfort: STAT EKG, vitals updated BP 90/48, P 78, RR 18, O2 97% MELD - 18 Attg addendum: I interviewed and examined pt, reviewed chart and labs. Pt reports atypical CP. He denies confusion, and has no asterixis on exam. He denies abd pain to me, and has no abd tenderness. His increased bili is likely secnodary to TIPS, but will request MRCP to follow up. CP is likely functional - can cont empiric trial of PPI and carafate. His confusion appears resolved. OK for d/c post MRCP -- we will follow up results of this study, but o/w please rconsult if needed.
[2016-10-26 11:31] VITALS: BP 104/57; PULSE 75; TEMP 36.6; O2SAT 97
--- NOTE | 2016-10-26 11:40 | Pharmacy Progress Note ---
Glycemic Control Progress Note Date of Service Oct 26, 2016. Scope Glycemic Pharmacist consulted for glycemic control to write orders per [facility] inpatient glycemic control protocol. Objective Accuchecks BSG (last 24hrs): Test 10/26/16 07:14 10/26/16 07:33 10/26/16 11:20 Bedside Glucose 73 mg/dl (70-99) 199 mg/dl (70-99) Random Glucose 72 mg/dl (70-99) Recent Pertinent Medications The patient is currently receiving: * Basal insulin: Lantus 30 units every 12 hours * Correctional Insulin: Novolog Correction per scale ACHS Goal Range: Low 110 mg/dL - High 150 mg/dL Correction Factor: 15 mg/dL/unit * Prandial insulin: Per carb ratio of 1 unit per 4 grams CHO consumed Outpatient Anti-Diabetic Meds Outpatient Anti-diabetic Regimen: * Lantus 38 units SQ BID + Novolog 14 units TID with meals plus SS * A1c = 10.7 % 10/02/16 Assessment & Plan ASSESSMENT: * See 10/25/16 progress note for background, in short: * 61 yr old T2DM male admitted with confusion and hyperglycemia. * Patient is well known to the Glycemic Service. * He takes a significant amount of insulin at home; 118 units plus sliding scale. During recent admissions he has used 80-106 units per day. * Patient is currently receiving an average of 97 units of insulin per day * 60 units of basal insulin * 37 units of prandial/correctional insulin * BSGs ranging 73 - 146 over the past 24hrs * Anticipating insulin regimen will need increased/decreased for the next 24hrs d/t : * AM Fasting BSG = 73, therefore Basal insulin needs decreased * Post-prandial BSGs are at goal * Need to evenly re-distribute regimen 50%:50% basal:prandial to prevent hypo/ hyperglycemia (based on 100 units per day) PLAN FOR INPATIENT GLYCEMIC CONTROL: * Basal insulin - decrease * Decrease Lantus 25 units SQ BID * Correctional Insulin with NOVOLOG per scale ACHS * Goal Range: Low 110 mg/dL - High 140 mg/dL * Correction Factor: 15 mg/dL/unit * Nutritional / Prandial insulin per carb ratio of 1 unit per 4 grams CHO consumed DISCHARGE RECOMMENDATIONS: * A1c of 10.7% on 10/02/16 indicates poor outpatient control, however, this is decreased from 12.2% on 08/18/16 * Continue to titrate insulin regimen per outpatient provider * Please note that the plan above was derived based on current level of insulin resistance and hospital stress. These recommendations are appropriate for inpatient admission only. Plan of care upon discharge will need to be reassessed to avoid potential outpatient hypo/hyperglycemia. Thank you.
[2016-10-26] MEDS: SUCRALFATE 1 GM TAB PO SCH ×3 (12:21→20:59)
[2016-10-26 14:53] VITALS: BP 104/59; PULSE 76; TEMP 37; O2SAT 96
--- NOTE | 2016-10-26 16:03 | Progress Note ---
Internal Med Progress Note Date of Service: Oct 26, 2016. Provider Documentation: SUBJECTIVE: The patient was seen and examined Complained of some Chest pain this AM Generally weak but no other complaints OBJECTIVE: Vital Signs-as noted below Exam: General-No distress at rest Eyes-normal ENT-normal Neck-Supple Lungs-Clear to auscultate bilaterally Heart-Regular,no murmur Abdomen-Minimally distended,soft,bowel sound present Extremities-Trace edema bilaterally Neuro-AAOx3 Lab data as noted below. 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 Cirrhosis: S/P TIPS on 10/20 at [facility] [place] at [place] -S/p TIPs procedure on 10/20 -admitted with increased confusion - Ammonia level on admission wnl -appreciate GI input -Continue lactulose 30mL QID, diuretics ,Rifaximin 550mg BID -Confusion improved but noted to have high Bilirubin -MRCP to r/o any obstructive changes DM II: -uncontrolled -Last hba1c 10.7 on 09/21 - Continue Lantus BID, SSI -Glycemic consult for recs -Continue monitor BS Thrombocytopenia -Platelets of 99 -Monitor daily Esophageal Varices -no acute issue -Hgb stable Hypothyroidism -Continue Synthroid DVT Ppx: SCDs 2/2 thrombocytopenia Code status: FULL PCP: Alexander Dispo: Plan to return home once medically stable Consultants: Gastro Likely discharge tomorrow after MRCP result Vital Signs: Date Time Temp Pulse Resp B/P (MAP) Pulse Ox O2 Delivery O2 Flow Rate FiO2 10/26/16 14:53 37.0 76 18 104/59 (74) 96 Room Air 10/26/16 11:31 36.6 75 18 104/57 97 Room Air 10/26/16 08:00 Room Air 10/26/16 07:21 36.6 75 18 104/57 (73) 97 Room Air 10/26/16 00:00 Room Air 10/25/16 23:19 36.8 79 20 96/60 (72) 97 Room Air 10/25/16 16:30 Room Air Lab Results: Results Past 24 Hours Test 10/25/16 16:41 10/26/16 07:14 10/26/16 07:33 10/26/16 11:20 Range/Units Bedside Glucose 73 73 199 70-99 mg/dl White Blood Count 5.97 4.8-10.8 K/uL Red Blood Count 3.83 4.7-6.1 M/uL Hemoglobin 10.9 14.0-18.0 g/dL Hematocrit 32.4 42-52 % Mean Corpuscular Volume 84.6 80-100 fL Mean Corpuscular Hemoglobin 28.5 25-34 pg Mean Corpuscular Hemoglobin Concent 33.6 32-36 g/dl RDW Standard Deviation 50.4 36.4-46.3 fL RDW Coefficient of Variation 16.7 11.5-14.5 % Platelet Count 80 130-400 K/uL Mean Platelet Volume 9.0 7.4-10.4 fL Platelet Estimate DECREASED Sodium Level 136 136-145 mmol/L Potassium Level 4.0 3.5-5.1 mmol/L Chloride Level 102 98-107 mmol/L Carbon Dioxide Level 29 21-32 mmol/L Anion Gap 5.0 3-11 mmol/L Blood Urea Nitrogen 5 7-18 mg/dl Creatinine 0.74 0.60-1.40 mg/dl Est Creatinine Clear Calc Drug Dose 106.6 ml/min Estimated GFR () 114.6 Estimated GFR (Non- 98.9 BUN/Creatinine Ratio 6.5 10-20 Random Glucose 72 70-99 mg/dl Calcium Level 8.0 8.5-10.1 mg/dl Total Bilirubin 4.3 0.2-1 mg/dl Aspartate Amino Transf (AST/SGOT) 93 15-37 U/L Alanine Aminotransferase (ALT/SGPT) 57 12-78 U/L Alkaline Phosphatase 167 45-117 U/L Total Protein 4.5 6.4-8.2 gm/dl Albumin 2.1 3.4-5.0 gm/dl Globulin 2.4 2.5-4.0 gm/dl Albumin/Globulin Ratio 0.9 0.9-2
--- NOTE | 2016-10-26 17:07 | DIAGNOSTIC IMAGING REPORT ---
MRCP CLINICAL HISTORY: cirrhosis, gallstones, RUQ pain, inconclsuive RUQ US, severe abdominal pain COMPARISON STUDY: CT scan dated 08/17/2016, biliary ultrasound dated 10/25/2016 FINDINGS: The liver has a cirrhotic morphology. A TIPS catheter is visualized. The spleen is enlarged measuring 12.3 cm in length. There are esophageal varices, gastric varices, and splenorenal varices. There are multiple gallstones present. There is an equivocal 2 mm calculus within the distal common bile duct. There is however no ductal dilatation. There is no pancreatic ductal dilatation. There is moderate ascites. Apparent mild bowel wall thickening involving the transverse colon is likely secondary to the cirrhotic state with ascites. IMPRESSION: 1. Liver cirrhosis with esophageal, gastric, and splenorenal varices. There is associated splenomegaly 2. Moderate ascites 3. A TIPS catheter is visualized 4. Cholelithiasis. Equivocal 2 mm calculus within distal common bile duct. No evidence of ductal dilatation. The common bile duct measures 4 mm. Electronically signed by: Pawan Garner M.D. 10/26/2016 5:06 PM Dictated Date/Time: 10/26/2016 4:53 PM
[2016-10-26] MEDS: PYRIDOXINE HCL 50 MG TAB PO SCH (20:58)
[2016-10-27 00:26] VITALS: BP 109/66; PULSE 88; TEMP 36.6; O2SAT 97
[2016-10-27] MEDS: LEVOTHYROXINE 75 MCG TAB PO SCH (05:29)
[2016-10-27] MEDS: HYDROmorphone HCL 2 MG TAB PO PRN ×4 (05:29→23:57)
[2016-10-27 07:30] VITALS: BP 113/72; PULSE 81; TEMP 36.6; O2SAT 95
[2016-10-27 07:47] LABS: BUN/CREATININE RATIO 6.6 (10-20); CALCIUM 8.2 mg/dl (8.5-10.1); CREATININE 0.74 mg/dl (0.60-1.40); POTASSIUM 3.7 mmol/L (3.5-5.1)
[2016-10-27 07:51] LABS: ALB/GLOB RATIO 0.9 (0.9-2)
[2016-10-27] MEDS: LACTULOSE SYRUP 20 GM/30 ML UDC PO SCH ×4 (08:03→20:31)
[2016-10-27] MEDS: SUCRALFATE 1 GM TAB PO SCH ×4 (08:04→20:34)
[2016-10-27] MEDS: FERROUS SULFATE 325 MG TAB PO SCH ×2 (08:04→18:01)
[2016-10-27] MEDS: LEVETIRACETAM 500 MG TAB PO SCH ×2 (08:05→20:34)
[2016-10-27] MEDS: RIFAXIMIN TAB 550 MG TAB PO SCH ×2 (08:05→20:35)
[2016-10-27] MEDS: ESCITALOPRAM OXALATE 20 MG TAB PO SCH (08:05)
[2016-10-27] MEDS: PANTOprazole SOD 40 MG TAB PO SCH ×2 (08:06→20:34)
[2016-10-27] MEDS: MAGNESIUM OXIDE 400 MG TAB PO SCH ×2 (08:06→20:35)
[2016-10-27 08:08] VITALS: BP 101/57; PULSE 74
[2016-10-27] MEDS: FUROSEMIDE 40 MG TAB PO SCH (08:09)
[2016-10-27] MEDS: SPIRONOLACTONE 100 MG TAB PO SCH ×2 (08:09→18:00)
--- NOTE | 2016-10-27 08:54 | Gastroenterology Progress Note ---
Progress Note Date of Service: Oct 27, 2016 Subjective Pt evaluation today including: conversation w/ patient, physical exam, chart review, lab review Pt was seen and evaluated, chart reviewed. Reviewed MRCP with Dr. Mo and radiology - there is a 2 mm calcified gallstone in CBD, without any dilation. This was present on previous scan a few month ago, without any biliary dilation or bump in LFTs. There are no change in his symptoms, can have intermittent RUQ pain and abdominal pain. No nausea, no vomiting. This AM he feels well, wants to go home but does not have a ride MRCP: Liver cirrhosis with esophageal, gastric, and splenorenal varices. There is associated splenomegaly Moderate ascites A TIPS catheter is visualized Cholelithiasis. Equivocal 2 mm calculus within distal common bile duct. No evidence of ductal dilatation. The common bile duct measures 4 mm. Review of Systems Constitutional: No fever Respiratory: No cough, No shortness of breath Cardiac: No chest pain Abdomen: No pain, No nausea, No vomiting, No diarrhea, No constipation, No GI bleeding Medications Current Inpatient Medications Medications (Trade) Dose Ordered Sig/Ryan Route Start Time Stop Time Status Last Admin Dose Admin Insulin Aspart (novoLOG ASPART) SLIDING SCALE If C... ACHS SC 10/24/16 17:00 11/23/16 16:59 10/26/16 17:15 13 UNITS Glucose (Glucose 40% Gel) 15-30 GRAMS 15 GRAMS... UD PRN PO 10/24/16 15:30 11/23/16 15:29 Glucose (Glucose Chew Tab) 4-8 Tablets 4 Tabl... UD PRN PO 10/24/16 15:30 11/23/16 15:29 Dextrose (Dextrose 50% 50ML Syringe) 25-50ML OF 50% DW IV FOR... UD PRN IV 10/24/16 15:30 11/23/16 15:29 Glucagon (Glucagon Inj) 1 mg UD PRN SQ 10/24/16 15:30 11/23/16 15:29 Rifaximin (Xifaxan Tab) 550 mg BID PO 10/24/16 21:00 11/23/16 20:59 10/27/16 08:05 550 MG Diphenhydramine HCl (Benadryl Cap) 25 mg BID PRN PO 10/24/16 16:00 11/23/16 15:59 Escitalopram Oxalate (Lexapro Tab) 20 mg DAILY PO 10/25/16 09:00 11/24/16 08:59 10/27/16 08:05 20 MG Furosemide (Lasix Tab) 40 mg DAILY PO 10/25/16 09:00 11/24/16 08:59 10/27/16 08:09 40 MG Hydromorphone HCl (Dilaudid Tab) 4 mg Q6 PRN PO 10/24/16 16:00 11/07/16 15:59 10/27/16 05:29 4 MG Lactulose (Chronulac Syrup) 20 gm QID PO 10/24/16 17:00 11/23/16 16:59 10/27/16 08:03 20 GM Levetiracetam (Keppra Tab) 500 mg BID PO 10/24/16 21:00 11/23/16 20:59 10/27/16 08:05 500 MG Levothyroxine Sodium (Synthroid Tab) 75 mcg DAILYBB PO 10/25/16 06:30 11/24/16 06:29 10/27/16 05:29 75 MCG Magnesium Oxide (Mag-Ox Tab) 400 mg BID PO 10/24/16 21:00 11/23/16 20:59 10/27/16 08:06 400 MG Ondansetron HCl (Zofran Odt) 2 mg Q8 PRN SL 10/24/16 16:00 11/23/16 15:59 10/24/16 17:56 2 MG Pantoprazole Sodium (Protonix Tab) 40 mg BID PO 10/24/16 21:00 11/23/16 20:59 10/27/16 08:06 40 MG Spironolactone (Aldactone Tab) 100 mg BID17 PO 10/24/16 17:00 11/23/16 16:59 10/27/16 08:09 100 MG Triamcinolone Acetonide (Kenalog 0.1% Cream) 1 appln BID PRN EXT 10/24/16 16:00 11/23/16 15:59 Ferrous Sulfate (Feosol Tab) 325 mg BIDM PO 10/24/16 17:00 11/23/16 16:59 10/27/16 08:04 325 MG Pyridoxine HCl (Vitamin B-6 Tab) 25 mg HS PO 10/24/16 21:00 11/23/16 20:59 10/26/16 20:58 25 MG Miscellaneous Information (Consult Glycemic Management Pharmacy) 1 ea UD PRN N/A 10/24/16 20:07 11/23/16 20:06 Al Hydroxide/Mg Hydroxide (Maalox Susp) 30 ml Q6H PRN PO 10/26/16 00:45 11/25/16 00:44 Insulin Glargine (Lantus Solostar Pen) 25 units Q12 SC 10/26/16 09:00 11/25/16 08:59 10/26/16 21:01 25 UNITS Sucralfate (Carafate Tab) 1 gm QID PO 10/26/16 13:00 11/25/16 12:59 10/27/16 08:04 1 GM Objective Vital Signs Date Time Temp Pulse Resp B/P (MAP) Pulse Ox O2 Delivery O2 Flow Rate FiO2 10/27/16 08:08 74 101/57 (72) 10/27/16 07:30 36.6 81 18 113/72 (86) 95 Room Air 10/27/16 00:26 36.6 88 18 109/66 (80) 97 Room Air 10/27/16 00:00 Room Air 10/26/16 16:30 Room Air 10/26/16 14:53 37.0 76 18 104/59 (74) 96 Room Air 10/26/16 11:31 36.6 75 18 104/57 97 Room Air Physical Exam General Appearance: no apparent distress Eyes: PERRL ENT: hearing grossly normal Neck: supple Respiratory/Chest: lungs clear Cardiovascular: regular rate, rhythm, no edema Abdomen: non tender, soft, no organomegaly, no pulsatile mass Neurologic/Psych: alert, normal mood/affect, oriented x 3 Skin: normal color, warm/dry, no rash Laboratory Results Last 24 Hours Test 10/26/16 11:20 10/26/16 16:54 10/26/16 20:21 10/27/16 06:56 Bedside Glucose 199 mg/dl 114 mg/dl 83 mg/dl Sodium Level 138 mmol/L Potassium Level 3.7 mmol/L Chloride Level 103 mmol/L Carbon Dioxide Level 28 mmol/L Anion Gap 7.0 mmol/L Blood Urea Nitrogen 5 mg/dl Creatinine 0.74 mg/dl Est Creatinine Clear Calc Drug Dose 106.6 ml/min Estimated GFR () 114.6 Estimated GFR (Non- 98.9 BUN/Creatinine Ratio 6.6 Random Glucose 64 mg/dl Calcium Level 8.2 mg/dl Total Bilirubin 4.9 mg/dl Aspartate Amino Transf (AST/SGOT) 87 U/L Alanine Aminotransferase (ALT/SGPT) 54 U/L Alkaline Phosphatase 184 U/L Total Protein 4.6 gm/dl Albumin 2.2 gm/dl Globulin 2.4 gm/dl Albumin/Globulin Ratio 0.9 Test 10/27/16 07:43 Bedside Glucose 80 mg/dl Assessment and Plan Patient is a 61 year old male with NAFLD cirrhosis decompensated by ascites, hepatic encephalology and varices s/p TIPS in [place] on 10/20/16. Pt tolerated procedure well and was doing well up until a few days ago when his roommate noted confusion and pt reports he was feeling groggy. Labs on admission were pertinent for a normal NH3. It does not appear his confusion has been worked up otherwise. RUQ US w/ gallstones, TIPS patent on duplex. Has epigastric discomfort with burping belching x 24 hours, no other associated symptoms. MRCP with evidence of small stone in CBD without any ductal dilation, stone appears present x 2 months. He is not symptomatic, white count is WNL. High risk for ERCP, suggest outpatient EUS +/- ERCP Plan - lactulose 30mL QID - Start Rifaximin 550mg BID - Continue present diuretics - Carafate 1G QID PRN epigastric discomfort - Outpatient EUS/ERCP will review case with Dr. Culver, as case may need to be done at a tertiary care system - No GI contraindication to discharge, gi to sign off. MELD - 18 ATTESTATION: I have performed a history and physical examination of this patient and reviewed the electronic record. Specifically, on physical examination he is clinically unchanged. In view of the risk of a therapeutic ERCP, confirmation of the presence of a stone is indicated prior to the procedure. I have discussed the case with MAYI Mcgovern. The above note reflects my findings, conclusions, and recommendations. Adrian Mo MD
[2016-10-27] MEDS: INSULIN ASPART 100 UNITS/ML 3 ML PEN SC SCH ×4 (09:53→20:39)
[2016-10-27] MEDS: INSULIN GLARGINE SOLOSTAR 100 UNITS/ML 3 ML PEN SC SCH ×2 (09:54→20:39)
[2016-10-27 15:18] VITALS: BP 99/59; PULSE 90; TEMP 36.7; O2SAT 97
--- NOTE | 2016-10-27 15:29 | Progress Note ---
Internal Med Progress Note Date of Service: Oct 27, 2016. Provider Documentation: SUBJECTIVE: The patient was seen and examined Complained of some Chest pain this AM Generally weak but no other complaints Remains weak to be discharged today Denies any other symptoms OBJECTIVE: Vital Signs-as noted below Exam: General-No distress at rest Eyes-normal ENT-normal Neck-Supple Lungs-Clear to auscultate bilaterally Heart-Regular,no murmur Abdomen-Minimally distended,soft,bowel sound present Extremities-Trace edema bilaterally Neuro-AAOx3 Lab data as noted below. 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 [place] at [place] -S/p TIPs procedure on 10/20 -admitted with increased confusion - Ammonia level on admission wnl -appreciate GI input -Continue lactulose 30mL QID, diuretics ,Rifaximin 550mg BID -Confusion improved but noted to have high Bilirubin -MRCP ::1. Liver cirrhosis with esophageal, gastric, and splenorenal varices. There is associated splenomegaly 2. Moderate ascites 3. A TIPS catheter is visualized 4. Cholelithiasis. Equivocal 2 mm calculus within distal common bile duct. No evidence of ductal dilatation. The common bile duct measures 4 mm. Will have OP EUS /ERCP Patient is stable to be discharged Will discharge tomorrow DM II: -uncontrolled -Last hba1c 10.7 on 09/21 - Continue Lantus BID, SSI -Glycemic consult for recs -Continue monitor BS Thrombocytopenia -Platelets of 99 -Monitor daily Esophageal Varices -no acute issue -Hgb stable Hypothyroidism -Continue Synthroid DVT Ppx: SCDs 2/2 thrombocytopenia Code status: FULL PCP: Alexander Dispo: Plan to return home once medically stable Consultants: Gastro Discharge tomorrow Vital Signs: Date Time Temp Pulse Resp B/P (MAP) Pulse Ox O2 Delivery O2 Flow Rate FiO2 10/27/16 15:18 36.7 90 18 99/59 (72) 97 Room Air 10/27/16 08:08 74 101/57 (72) 10/27/16 08:00 Room Air 10/27/16 07:30 36.6 81 18 113/72 (86) 95 Room Air 10/27/16 00:26 36.6 88 18 109/66 (80) 97 Room Air 10/27/16 00:00 Room Air 10/26/16 16:30 Room Air Lab Results: Results Past 24 Hours Test 10/26/16 16:54 10/26/16 20:21 10/27/16 06:56 10/27/16 07:43 Range/Units Bedside Glucose 114 83 80 70-99 mg/dl Sodium Level 138 136-145 mmol/L Potassium Level 3.7 3.5-5.1 mmol/L Chloride Level 103 98-107 mmol/L Carbon Dioxide Level 28 21-32 mmol/L Anion Gap 7.0 3-11 mmol/L Blood Urea Nitrogen 5 7-18 mg/dl Creatinine 0.74 0.60-1.40 mg/dl Est Creatinine Clear Calc Drug Dose 106.6 ml/min Estimated GFR () 114.6 Estimated GFR (Non- 98.9 BUN/Creatinine Ratio 6.6 10-20 Random Glucose 64 70-99 mg/dl Calcium Level 8.2 8.5-10.1 mg/dl Total Bilirubin 4.9 0.2-1 mg/dl Aspartate Amino Transf (AST/SGOT) 87 15-37 U/L Alanine Aminotransferase (ALT/SGPT) 54 12-78 U/L Alkaline Phosphatase 184 45-117 U/L Total Protein 4.6 6.4-8.2 gm/dl Albumin 2.2 3.4-5.0 gm/dl Globulin 2.4 2.5-4.0 gm/dl Albumin/Globulin Ratio 0.9 0.9-2 Test 10/27/16 11:02 Range/Units Bedside Glucose 208 70-99 mg/dl
[2016-10-27] MEDS: ONDANSETRON 4MG OD TAB SL PRN (18:07)
[2016-10-27] MEDS: PYRIDOXINE HCL 50 MG TAB PO SCH (20:34)
[2016-10-28 00:06] VITALS: BP 107/63; PULSE 90; TEMP 37.1; O2SAT 95
[2016-10-28] MEDS: LEVOTHYROXINE 75 MCG TAB PO SCH (05:48)
[2016-10-28] MEDS: HYDROmorphone HCL 2 MG TAB PO PRN ×2 (05:49→12:18)
[2016-10-28] MEDS: ONDANSETRON 4MG OD TAB SL PRN (05:50)
[2016-10-28 06:55] LABS: HEMATOCRIT 32.5 % (42-52); MEAN CELL VOLUME 84.4 fL (80-100); MEAN CORPUSCULAR HEMOGLOBIN 27.8 pg (25-34); MEAN CORPUSCULAR HGB CONC 32.9 g/dl (32-36); RED BLOOD COUNT 3.85 M/uL (4.7-6.1); WHITE BLOOD COUNT 6.28 K/uL (4.8-10.8)
[2016-10-28 07:01] LABS: MEAN PLATELET VOLUME 9.6 fL (7.4-10.4); PLATELET COUNT 93 K/uL (130-400)
[2016-10-28 07:29] LABS: BUN/CREATININE RATIO 6.5 (10-20); CREATININE 0.78 mg/dl (0.60-1.40); POTASSIUM 3.9 mmol/L (3.5-5.1)
[2016-10-28 07:35] VITALS: BP 102/61; PULSE 85; TEMP 36.4; O2SAT 97
[2016-10-28] MEDS: MAGNESIUM OXIDE 400 MG TAB PO SCH (08:47)
[2016-10-28] MEDS: LEVETIRACETAM 500 MG TAB PO SCH (08:47)
[2016-10-28] MEDS: SUCRALFATE 1 GM TAB PO SCH ×2 (08:47→12:19)
[2016-10-28] MEDS: PANTOprazole SOD 40 MG TAB PO SCH (08:48)
[2016-10-28] MEDS: RIFAXIMIN TAB 550 MG TAB PO SCH (08:48)
[2016-10-28] MEDS: SPIRONOLACTONE 100 MG TAB PO SCH (08:48)
[2016-10-28] MEDS: LACTULOSE SYRUP 20 GM/30 ML UDC PO SCH ×2 (08:49→12:18)
[2016-10-28] MEDS: ESCITALOPRAM OXALATE 20 MG TAB PO SCH (08:49)
[2016-10-28] MEDS: FERROUS SULFATE 325 MG TAB PO SCH (08:49)
[2016-10-28] MEDS: INSULIN ASPART 100 UNITS/ML 3 ML PEN SC SCH ×2 (08:53→12:23)
[2016-10-28] MEDS: INSULIN GLARGINE SOLOSTAR 100 UNITS/ML 3 ML PEN SC SCH (08:54)
[2016-10-28] MEDS: FUROSEMIDE 40 MG TAB PO SCH (08:55)
--- NOTE | 2016-10-28 14:12 | Progress Note ---
Internal Med Progress Note Date of Service: Oct 28, 2016. Provider Documentation: SUBJECTIVE: The patient was seen and examined Much better today Denies any symptoms Generally a little weak OBJECTIVE: Vital Signs-as noted below Exam: General-No distress at rest Eyes-normal ENT-normal Neck-Supple Lungs-Clear to auscultate bilaterally Heart-Regular,no murmur Abdomen-Minimally distended,soft,bowel sound present Extremities-Trace edema bilaterally Neuro-AAOx3 Lab data as noted below. 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 Liver cirrhosis with esophageal, gastric, and splenorenal varices. There is associated splenomegaly 2. Moderate ascites 3. A TIPS catheter is visualized 4. Cholelithiasis. Equivocal 2 mm calculus within distal common bile duct. No evidence of ductal dilatation. The common bile duct measures 4 mm. Will have OP EUS /ERCP Remains stable Will discharge today DM II: -uncontrolled -Last hba1c 10.7 on 09/21 - Continue Lantus BID, SSI -Glycemic consult for recs -Continue monitor BS -no acute issue Thrombocytopenia -Platelets of 99 -Monitor daily -platelet 93 today Esophageal Varices -no acute issue -Hgb stable Hypothyroidism -Continue Synthroid DVT Ppx: SCDs 2/2 thrombocytopenia Code status: FULL PCP: Alexander Dispo: Plan to return home once medically stable Consultants: Gastro Discharge today Vital Signs: Date Time Temp Pulse Resp B/P (MAP) Pulse Ox O2 Delivery O2 Flow Rate FiO2 10/28/16 08:00 Room Air 10/28/16 07:35 36.4 85 18 102/61 (75) 97 Room Air 10/28/16 00:06 37.1 90 18 107/63 (78) 95 Room Air 10/27/16 20:40 Room Air 10/27/16 16:00 Room Air 10/27/16 15:18 36.7 90 18 99/59 (72) 97 Room Air Lab Results: Results Past 24 Hours Test 10/27/16 16:16 10/27/16 20:04 10/28/16 06:17 10/28/16 07:22 Range/Units Bedside Glucose 98 164 140 70-99 mg/dl White Blood Count 6.28 4.8-10.8 K/uL Red Blood Count 3.85 4.7-6.1 M/uL Hemoglobin 10.7 14.0-18.0 g/dL Hematocrit 32.5 42-52 % Mean Corpuscular Volume 84.4 80-100 fL Mean Corpuscular Hemoglobin 27.8 25-34 pg Mean Corpuscular Hemoglobin Concent 32.9 32-36 g/dl RDW Standard Deviation 53.5 36.4-46.3 fL RDW Coefficient of Variation 17.6 11.5-14.5 % Platelet Count 93 130-400 K/uL Mean Platelet Volume 9.6 7.4-10.4 fL Sodium Level 135 136-145 mmol/L Potassium Level 3.9 3.5-5.1 mmol/L Chloride Level 100 98-107 mmol/L Carbon Dioxide Level 28 21-32 mmol/L Anion Gap 7.0 3-11 mmol/L Blood Urea Nitrogen 5 7-18 mg/dl Creatinine 0.78 0.60-1.40 mg/dl Est Creatinine Clear Calc Drug Dose 101.1 ml/min Estimated GFR () 112.1 Estimated GFR (Non- 96.7 BUN/Creatinine Ratio 6.5 10-20 Random Glucose 146 70-99 mg/dl Calcium Level 8.0 8.5-10.1 mg/dl Total Bilirubin 4.7 0.2-1 mg/dl Aspartate Amino Transf (AST/SGOT) 91 15-37 U/L Alanine Aminotransferase (ALT/SGPT) 55 12-78 U/L Alkaline Phosphatase 212 45-117 U/L Total Protein 4.9 6.4-8.2 gm/dl Albumin 2.4 3.4-5.0 gm/dl Globulin 2.5 2.5-4.0 gm/dl Albumin/Globulin Ratio 1.0 0.9-2 Test 10/28/16 11:37 Range/Units Bedside Glucose 241 70-99 mg/dl
[2016-10-28] MEDS ORDERED: XFX550 PO (14:18)
--- NOTE | 2016-10-28 14:21 | Discharge Instructions ---
Discharge Instructions Date of Service Oct 28, 2016. Admission Reason for Admission: Hepatic Encephalopathy Discharge Discharge Diagnosis / Problem: Hepatic Encephalopathy,Cirrhosis of Liver s/p TIPS Discharge Goals Goal(s): Prevent Disease Progression Activity Recommendations Activity Limitations: resume your previous activity . Instructions / Follow-Up Instructions / Follow-Up Will call with appointment Current Hospital Diet Patient's current hospital diet: Diabetes Type 2 Diet Discharge Diet Recommended Diet: Diabetes Type 2 Diet Fluid Restriction: 1500 ml (6 cups) Pending Studies Studies pending at discharge: no Laboratory Results Hemoglobin A1c Test 10/02/16 06:54 Range/Units Estimated Average Glucose 260 mg/dl Hemoglobin A1c 10.7 H 4.5-5.6 % Medical Emergencies . Who to Call and When: Medical Emergencies: If at any time you feel your situation is an emergency, please call 911 immediately. . Non-Emergent Contact Non-Emergency issues call your: Primary Care Provider . Past History Medical & Surgical History: (1) Ascites (2) Depression (3) Esophageal varices (4) DM2 (diabetes mellitus, type 2) (5) Hypothyroidism (6) Superior mesenteric vein thrombosis (7) Pulmonary embolism (8) Seizure disorder (9) Portal hypertension (10) Ascites (11) S/P lumbar fusion (12) S/P cervical spinal fusion (13) S/P IVC filter (14) S/P T&A (status post tonsillectomy and adenoidectomy) (15) H/O esophagogastroduodenoscopy (16) H/O knee surgery . "Provider Documentation" section prepared by Ksenia Hanks. . VTE Core Measure Inpt VTE Proph given/why not?: SCD's
[2016-10-28 14:36] VITALS: BP 102/61; PULSE 85; TEMP 36.4; O2SAT 97
--- NOTE | 2016-10-29 07:42 | Discharge Summary ---
Discharge Summary Date of Service Oct 29, 2016. Discharge Summary Admission Date: Oct 24, 2016 at 15:26 Discharge Date: Oct 28, 2016 Discharge Disposition: Home Principal Diagnosis: Hepatic Encephalopathy,Cirrhosis of Liver s/p TIPS Secondary Diagnoses/Problems: Please see H&P and Hospital Progress note Consultations: Gastro Medication Reconciliation New Medications: Rifaximin (Xifaxan) 550 Mg Tab 550 MG PO BID for 30 Days, #60 TAB Continued Medications: Diphenhydramine Hcl (Benadryl) 25 Mg Cap 25 MG PO BID PRN for Itching Escitalopram Oxalate (Lexapro) 20 Mg Tab 20 MG PO DAILY, TAB Ferrous Sulfate (Kp Ferrous Sulfate) 325 Mg Tab 325 MG PO BID, TAB Furosemide (Lasix) 40 Mg Tab 40 MG PO DAILY, TAB Hydromorphone Hcl (Dilaudid) 4 Mg Tab 4 MG PO Q6 PRN for Pain, TAB Insulin Aspart (Novolog) 100 Units/Ml Inj 14 UNITS SQ TIDM PLUS SLIDING SCALE Insulin Glargine (Lantus) 100 Unit/Ml Inj 38 UNITS SC BID Lactulose (Chronulac) 10 Gm/15 Ml Syrp 20 ML PO QID Levetiractam (Levetiracetam) 500 Mg Tab 500 MG PO BID Levothyroxine Sodium (Synthroid) 75 Mcg Tab 75 MCG PO QAM Magnesium Oxide (Mag-Ox) 400 Mg Tab 400 MG PO BID Melatonin ( Melatonin) 3 Mg Tab 2 MG PO HS for 30 Days, #30 TAB Ondasetron Odt (Zofran Odt) 4 Mg Tab 1-2 MG SL Q8 PRN for Nausea or Vomiting, TAB Pantoprazole (Protonix) 40 Mg Tab 40 MG PO BID, TAB Polyethylene Glycol 3350 (Miralax) 1 Pow Pow 17 GM PO BID Pyridoxine Hcl (Vitamin B-6) 25 Mg Tab 25 MG PO HS Spironolactone (Aldactone) 100 Mg Tab 100 MG PO BID Triamcinolone Acet (Aristocort 0.1%) 90 Appln/30 Gm Cr 1 APPL EXT BID PRN for dermatitis Admission Information HPI (per Admitting provider): This is a 61yo M with a PMH of BETANCOURT cirrhosis, hepatic encephalopathy, esophageal varices, thrombocytopenia, DM II and hypothyroidism who presents with confusion that began this morning. Patient had a TIPS procedure on 10/20/16 at [facility] and was discharged on Sunday. Per chart review, TIPS procedure was uncomplicated and patient had no bleeding from transjugular insertion site. Reports that 8L of fluid were removed from abdomen during procedure. States that he felt fine over the weekend but woke up feeling confused and "foggy". Patient's roommate became concerned, especially with patient's history of hepatic encephalopathy, and called EMS. Patient has been taking all medications as scheduled, including lactulose. States than ammonia levels have been normal. Is A&Ox4 but is groggy in regards to the sequence of events this morning. Just remembers waking up and not feeling like himself. Associated symptoms include RUQ abdominal pain, nausea and LE swelling. Denies fever, chills, CP, SOB, vomiting, dysuria, constipation. 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 Surgical Problems: (1) H/O esophagogastroduodenoscopy Status: Resolved (2) H/O knee surgery Status: Resolved (3) S/P cervical spinal fusion Status: Resolved (4) S/P IVC filter Status: Resolved (5) S/P lumbar fusion Status: Resolved (6) S/P T&A (status post tonsillectomy and adenoidectomy) Status: Resolved Family History FH: CAD (coronary artery disease) FATHER FH: breast cancer MOTHER Social History Smoking Status: Never Smoker Drug Use: none Marital Status: single Housing status: lives with roommate Occupational Status: retired Immunizations History of Influenza Vaccine: Yes Influenza Vaccine Date: Oct 21, 2014 History of Tetanus Vaccine?: Yes Tetanus Immunization Date: Mar 15, 1972 History of Pneumococcal: Yes Pneumococcal Date: Feb 05, 2009 History of Hepatitis B Vaccine: Yes Hepatitis Immunization Date: June 18, 2013 Multi-Drug Resistant Organisms History of MDRO: No Allergies Coded Allergies: Acetaminophen (Verified Allergy, Severe, ESLD (BETANCOURT). on Liver transplant list. Cannot have APAP., 10/24/16) Morphine (Verified Allergy, Severe, RED HIVE WENT UP ARM FROM IV SITE, ) NSAIDs (Verified Allergy, Severe, DUE TO LIVER DISEAS, 10/24/16) Penicillins (Verified Allergy, Severe, JOINT SWELLING AND FEVER, 10/24/16) Fentanyl (Verified Allergy, Intermediate, rash, 10/24/16) Levofloxacin (Verified Allergy, Intermediate, RASH, 10/24/16) pt developed erythema at site of IV injection with itching Vancomycin (Verified Allergy, Mild, HIVES, 10/24/16) HIVES Tramadol (Verified Allergy, Unknown, NOT TO TAKE WITH KEPPRA DUE TO SEIZURE RISK, 10/24/16) Home Medications Scheduled Escitalopram Oxalate (Lexapro), 20 MG PO DAILY Ferrous Sulfate ( Ferrous Sulfate), 325 MG PO BID Furosemide (Lasix), 40 MG PO DAILY Insulin Aspart (Novolog), 14 UNITS SQ TIDM Insulin Glargine (Lantus), 38 UNITS SC BID Lactulose (Chronulac), 30 ML PO QID Levetiractam (Levetiracetam), 500 MG PO BID Levothyroxine Sodium (Synthroid), 75 MCG PO QAM Magnesium Oxide (Mag-Ox), 400 MG PO BID Melatonin (Kp Melatonin), 2 MG PO HS Pantoprazole (Protonix), 40 MG PO BID Polyethylene Glycol 3350 (Miralax), 17 GM PO BID Pyridoxine Hcl (Vitamin B-6), 25 MG PO HS Spironolactone (Aldactone), 100 MG PO BID Scheduled PRN Diphenhydramine Hcl (Benadryl), 25 MG PO BID PRN for Itching Hydromorphone Hcl (Dilaudid), 4 MG PO Q6 PRN for Pain Ondasetron Odt (Zofran Odt), 1-2 MG SL Q8 PRN for Nausea or Vomiting Triamcinolone Acet (Aristocort 0.1%), 1 APPL EXT BID PRN for dermatitis Review of Systems Ten systems reviewed and negative except as noted in the HPI. Physical Ex - H&P Physical Exam Vital Signs Date Time Temp Pulse Resp B/P (MAP) Pulse Ox O2 Delivery O2 Flow Rate FiO2 10/24/16 16:36 36.9 77 12 118/67 98 10/24/16 16:00 77 12 118/67 98 Room Air 10/24/16 15:33 Room Air 10/24/16 15:00 71 8 115/65 94 Room Air 10/24/16 14:00 70 15 117/64 96 Room Air 10/24/16 13:12 75 10/24/16 12:30 69 13 113/59 94 Room Air 10/24/16 12:07 73 12 107/61 96 Room Air 10/24/16 11:00 71 12 105/67 99 Room Air 10/24/16 10:53 75 10/24/16 10:45 98 Room Air 10/24/16 10:45 36.9 75 15 127/72 98 Room Air General Appearance: no apparent distress (Ill appearing) Head: normocephalic, atraumatic Eyes: normal inspection, PERRL, + abnormal sclerae exam (Scleral icterus noted ) ENT: hearing grossly normal Neck: supple, no adenopathy, trachea midline Respiratory/Chest: chest non-tender, lungs clear, normal breath sounds, no respiratory distress, no accessory muscle use Cardiovascular: regular rate, rhythm, no JVD, no murmur, normal peripheral pulses Abdomen/GI: normal bowel sounds, no organomegaly, + tenderness (Diffuse TTP with mild ascites. Umbilical hernia visualized. ) Back: normal inspection Extremities/Musculoskelatal: no calf tenderness, normal capillary refill, + swelling (2+ bilateral edema of LE to knees) Neurologic/Psych: no motor/sensory deficits, alert, normal mood/affect, oriented x 3 Skin: normal color, warm/dry, no rash (Small areas of brusing on bilateral arms. ) Diagnostics - H&P Diagnostics Laboratory Results Results Past 24 Hours Test 10/24/16 11:09 10/24/16 11:53 10/24/16 16:10 Range/Units Bedside Glucose 384 70-99 mg/dl White Blood Count 6.61 4.8-10.8 K/uL Red Blood Count 4.12 4.7-6.1 M/uL Hemoglobin 11.8 14.0-18.0 g/dL Hematocrit 35.3 42-52 % Mean Corpuscular Volume 85.7 80-100 fL Mean Corpuscular Hemoglobin 28.6 25-34 pg Mean Corpuscular Hemoglobin Concent 33.4 32-36 g/dl Platelet Count 101 130-400 K/uL Mean Platelet Volume 10.4 7.4-10.4 fL Neutrophils (%) (Auto) 75.2 % Lymphocytes (%) (Auto) 10.4 % Monocytes (%) (Auto) 10.1 % Eosinophils (%) (Auto) 3.8 % Basophils (%) (Auto) 0.3 % Neutrophils # (Auto) 4.97 1.4-6.5 K/uL Lymphocytes # (Auto) 0.69 1.2-3.4 K/uL Monocytes # (Auto) 0.67 0.11-0.59 K/uL Eosinophils # (Auto) 0.25 0-0.5 K/uL Basophils # (Auto) 0.02 0-0.2 K/uL RDW Standard Deviation 50.8 36.4-46.3 fL RDW Coefficient of Variation 16.2 11.5-14.5 % Immature Granulocyte % (Auto) 0.2 % Immature Granulocyte # (Auto) 0.01 0.00-0.02 K/uL Prothrombin Time 14.7 9.0-12.0 SECONDS Prothromb Time International Ratio 1.4 0.9-1.1 Activated Partial Thromboplast Time 34.8 21.0-31.0 SECONDS Partial Thromboplastin Ratio 1.3 Sodium Level 135 136-145 mmol/L Potassium Level 4.3 3.5-5.1 mmol/L Chloride Level 100 98-107 mmol/L Carbon Dioxide Level 29 21-32 mmol/L Anion Gap 6.0 3-11 mmol/L Blood Urea Nitrogen 7 7-18 mg/dl Creatinine 0.91 0.60-1.40 mg/dl Est Creatinine Clear Calc Drug Dose 85.6 ml/min Estimated GFR () 104.3 Estimated GFR (Non- 90.0 BUN/Creatinine Ratio 8.1 10-20 Random Glucose 372 70-99 mg/dl Calcium Level 7.8 8.5-10.1 mg/dl Total Bilirubin 4.0 0.2-1 mg/dl Direct Bilirubin 1.6 0-0.2 mg/dl Aspartate Amino Transf (AST/SGOT) 131 15-37 U/L Alanine Aminotransferase (ALT/SGPT) 91 12-78 U/L Alkaline Phosphatase 176 45-117 U/L Ammonia 32.0 11-32 umol/L Troponin I 0.016 0-0.045 ng/ml Total Protein 5.4 6.4-8.2 gm/dl Albumin 2.7 3.4-5.0 gm/dl Lipase 58 73-393 U/L Beta-Hydroxybutyric Acid 1.23 0.2-2.81 mg/dL Diagnostic Radiology CXR: IMPRESSION: 1. Minimal persistent left basilar atelectasis or scarring. No new focal infiltrate. No pleural effusion. Normal EKG Impression - H&P Impression Assessment and Plan This is a 61yo M with a PMH of BETANCOURT cirrhosis, hepatic encephalopathy, esophageal varices, thrombocytopenia, DM II and hypothyroidism who presents with confusion that began this morning. 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 Cirrhosis: -S/p TIPs procedure on 10/20 -Mild confusion but now A&Ox4 -Ammonia is wnl -Spoke with [employer] investment/portfolio manager, who recommended the following: -Continue lactulose 30mL QID -Continue diuretics -Start Rifaximin 550mg BID -Consult GI for further recs DM II: (uncontrolled) -BG of 372 on admission -Resumed home regimen of 38U Lantus BID, SSI -Glycemic consult for recs -BG checks AC HS Thrombocytopenia -Platelets of 101 -Monitor daily Esophageal Varices -Hgb stable, monitor Hypothyroidism -Continue Synthroid DVT Ppx: SCDs 2/2 thrombocytopenia Code status: FULL PCP: Alexander Dispo: Plan to return home once medically stable Attending Pt was seen and examined. Agreed with Jocelyn YUN physical exam, assessment and plan. 61yo M with multiple admission for ascites with PMH BETANCOURT, cirrhosis, hepatic encephalopathy, esophageal varices, thrombocytopenia, DM II and hypothyroidism who presents with confusion. Last Paracentesis was last Sunday where 8L of ascites fluid removed as per patient. 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 Y/N: Yes Risk Level: High Given or contraindicated: SCD's Physical Exam (per Admitting): General Appearance: no apparent distress (Ill appearing) Head: normocephalic, atraumatic Eyes: normal inspection, PERRL, + abnormal sclerae exam (Scleral icterus noted ) ENT: hearing grossly normal Neck: supple, no adenopathy, trachea midline Respiratory/Chest: chest non-tender, lungs clear, normal breath sounds, no respiratory distress, no accessory muscle use Cardiovascular: regular rate, rhythm, no JVD, no murmur, normal peripheral pulses Abdomen/GI: normal bowel sounds, no organomegaly, + tenderness (Diffuse TTP with mild ascites. Umbilical hernia visualized. ) Back: normal inspection Extremities/Musculoskelatal: no calf tenderness, normal capillary refill, + swelling (2+ bilateral edema of LE to knees) Neurologic/Psych: no motor/sensory deficits, alert, normal mood/affect, oriented x 3 Skin: normal color, warm/dry, no rash (Small areas of brusing on bilateral arms. 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 Liver cirrhosis with esophageal, gastric, and splenorenal varices. There is associated splenomegaly 2. Moderate ascites 3. A TIPS catheter is visualized 4. Cholelithiasis. Equivocal 2 mm calculus within distal common bile duct. No evidence of ductal dilatation. The common bile duct measures 4 mm. Will have OP EUS /ERCP Remains stable Will discharge today DM II: -uncontrolled -Last hba1c 10.7 on 09/21 - Continue Lantus BID, SSI -Glycemic consult for recs -Continue monitor BS -no acute issue Thrombocytopenia -Platelets of 99 -Monitor daily -platelet 93 today Esophageal Varices -no acute issue -Hgb stable Hypothyroidism -Continue Synthroid DVT Ppx: SCDs 2/2 thrombocytopenia Code status: FULL PCP: Alexander Dispo: Plan to return home once medically stable Consultants: Gastro Discharge today Total time spent on discharge = 35 minutes This includes examination of the patient, discharge planning, medication reconciliation, and communication with other providers. Discharge Instructions Date of Service Oct 28, 2016. Admission Reason for Admission: Hepatic Encephalopathy Discharge Discharge Diagnosis / Problem: Hepatic Encephalopathy,Cirrhosis of Liver s/p TIPS Discharge Goals Goal(s): Prevent Disease Progression Activity Recommendations Activity Limitations: resume your previous activity . Instructions / Follow-Up Instructions / Follow-Up Will call with appointment Current Hospital Diet Patient's current hospital diet: Diabetes Type 2 Diet Discharge Diet Recommended Diet: Diabetes Type 2 Diet Fluid Restriction: 1500 ml (6 cups) Pending Studies Studies pending at discharge: no Laboratory Results Hemoglobin A1c Test 10/02/16 06:54 Range/Units Estimated Average Glucose 260 mg/dl Hemoglobin A1c 10.7 H 4.5-5.6 % Medical Emergencies . Who to Call and When: Medical Emergencies: If at any time you feel your situation is an emergency, please call 911 immediately. . Non-Emergent Contact Non-Emergency issues call your: Primary Care Provider . Past History Medical & Surgical History: (1) Ascites (2) Depression (3) Esophageal varices (4) DM2 (diabetes mellitus, type 2) (5) Hypothyroidism (6) Superior mesenteric vein thrombosis (7) Pulmonary embolism (8) Seizure disorder (9) Portal hypertension (10) Ascites (11) S/P lumbar fusion (12) S/P cervical spinal fusion (13) S/P IVC filter (14) S/P T&A (status post tonsillectomy and adenoidectomy) (15) H/O esophagogastroduodenoscopy (16) H/O knee surgery . "Provider Documentation" section prepared by Ksenia Hanks. . VTE Core Measure Inpt VTE Proph given/why not?: SCD's <Electronically signed by Ksenia Hanks M.D.> Signed: 10/28/16 [id number] Signed: Additional Copies To Chacha Munoz D.O.
[2016-11-06] MEDS ORDERED: CLIN300C2 PO (14:29)
[2016-11-06] MEDS ORDERED: LCTX PO (14:29)
[2016-11-18] MEDS ORDERED: CLIN300C2 PO (10:23)
== END 2016-10-28 15:15 | disposition home health service (06) | DRG 442 ==
LOC: EDBD 10:41 → C.EDC 10:42 → C.MS2W 15:26 → ENRESERV 15:38
PROVIDERS: ADMIT Internal Medicine; ATTEND Internal Medicine
DX: K72.90 Hepatic failure, unspecified without coma (principal); I85.10 Secondary esophageal varices without bleeding; K76.6 Portal hypertension; R18.8 Other ascites; K75.81 Nonalcoholic steatohepatitis (NASH); D69.6 Thrombocytopenia, unspecified; E11.9 Type 2 diabetes mellitus without complications; E03.9 Hypothyroidism, unspecified; G40.909 Epilepsy, unspecified, not intractable, without status epilepticus; F41.9 Anxiety disorder, unspecified; F32.9 Major depressive disorder, single episode, unspecified; Z79.899 Other long term (current) drug therapy; Z79.4 Long term (current) use of insulin; Z98.890 Other specified postprocedural states; Z86.711 Personal history of pulmonary embolism; Z86.718 Personal history of other venous thrombosis and embolism; Z82.49 Family history of ischemic heart disease and other diseases of the circulatory system; Z80.3 Family history of malignant neoplasm of breast

== ENCOUNTER 2016-10-31 15:46 | Inpatient (IN) | payer OTHER ==
[~2016-10-31] VITALS: Ht 182.9 cm; Wt 73.6 kg
[~2016-10-31 15:46] MED LIST changes: +MELA1TAB5 PO; -PROP10TA7 PO; +XFX550 PO
[2016-10-31] MEDS ORDERED: SODIUM CHLORIDE 0.9% 1000ML 1,000 ML IV ONE (16:12)
--- NOTE | 2016-10-31 16:20 | EMERGENCY ROOM VISIT NOTE ---
History Report prepared by Alla: Patric Ferguson Under the Supervision of: Dr. Seng Ray M.D. First contact with patient: 16:05 Chief Complaint: WEAKNESS Stated Complaint: WEAKNESS, AMS History of Present Illness The patient is a 61 year old male who presents to the Emergency Room with complaints of worsening weakness that started earlier today. He was just discharged from the hospital here 2 days ago for confusion and abdominal pain, and he says that he was feeling okay at the time of discharge. The patient states that he has started to have increasing confusion and weakness, and is just "not feeling right" today. Per the nursing staff, the patient appears to have yellowish skin, and was not yellow last time he was here. The patient denies any chest pain, cough, congestion, shortness of breath, fevers, chills, back pain, abdominal pain, nausea, vomiting, diarrhea, or urinary symptoms. The patient has history of cirrhosis of his liver. He adds that he recently had some fluid taken out of his abdomen, and feels like some of the fluid is coming back. He says that he has been keeping up with taking his Lactulose, but he does not know the last time that he took it. The patient states that he has been eating and drinking okay. History limited secondary to patient's confusion. Source of History: patient, nursing staff History Limited By: other (confusion) Onset: Earlier today Position: other (global - weakness) Timing: worsening Associated Symptoms: No fevers, No chills, No cough, No chest pain, No SOB, No abdominal pain, No back pain, No diarrhea, No urinary symptoms Note: Associated symptoms: Confusion. Noted to be yellow. Denies congestion. Review of Systems See HPI for pertinent positives and negatives. A total of ten systems were reviewed and were otherwise negative. 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 Surgical Problems: (1) H/O esophagogastroduodenoscopy (2) H/O knee surgery (3) S/P cervical spinal fusion (4) S/P IVC filter (5) S/P lumbar fusion (6) S/P T&A (status post tonsillectomy and adenoidectomy) Family History FH: CAD (coronary artery disease) FATHER FH: breast cancer MOTHER Social History Smoking Status: Never Smoker Alcohol Use: none Drug Use: none Marital Status: single Housing Status: lives with roommate Occupation Status: retired Current/Historical Medications Scheduled Escitalopram Oxalate (Lexapro), 20 MG PO DAILY Ferrous Sulfate (Kp Ferrous Sulfate), 325 MG PO BID Furosemide (Lasix), 40 MG PO DAILY Insulin Aspart (Novolog), 14 UNITS SQ TIDM Insulin Glargine (Lantus), 38 UNITS SC BID Lactulose (Chronulac), 20 ML PO QID Levetiractam (Levetiracetam), 500 MG PO BID Levothyroxine Sodium (Synthroid), 75 MCG PO QAM Magnesium Oxide (Mag-Ox), 400 MG PO BID Melatonin (Kp Melatonin), 2 MG PO HS Pantoprazole (Protonix), 40 MG PO BID Polyethylene Glycol 3350 (Miralax), 17 GM PO BID Pyridoxine Hcl (Vitamin B-6), 25 MG PO HS Rifaximin (Xifaxan), 550 MG PO BID Spironolactone (Aldactone), 100 MG PO BID Scheduled PRN Diphenhydramine Hcl (Benadryl), 25 MG PO BID PRN for Itching Hydromorphone Hcl (Dilaudid), 4 MG PO Q6 PRN for Pain Ondasetron Odt (Zofran Odt), 1-2 MG SL Q8 PRN for Nausea or Vomiting Triamcinolone Acet (Aristocort 0.1%), 1 APPL EXT BID PRN for dermatitis Allergies Coded Allergies: Acetaminophen (Verified Allergy, Severe, ESLD (BETANCOURT). on Liver transplant list. Cannot have APAP., 10/31/16) Morphine (Verified Allergy, Severe, RED HIVE WENT UP ARM FROM IV SITE, ) NSAIDs (Verified Allergy, Severe, DUE TO LIVER DISEAS, 10/31/16) Penicillins (Verified Allergy, Severe, JOINT SWELLING AND FEVER, 10/31/16) Fentanyl (Verified Allergy, Intermediate, rash, 10/31/16) Levofloxacin (Verified Allergy, Intermediate, RASH, 10/31/16) pt developed erythema at site of IV injection with itching Vancomycin (Verified Allergy, Mild, HIVES, 10/31/16) HIVES Tramadol (Verified Allergy, Unknown, NOT TO TAKE WITH KEPPRA DUE TO SEIZURE RISK, 10/31/16) Physical Exam Vital Signs Date Time Temp Pulse Resp B/P (MAP) Pulse Ox O2 Delivery O2 Flow Rate FiO2 10/31/16 20:30 94 10/31/16 19:21 101 14 123/69 100 Room Air 10/31/16 18:29 114 18 152/97 99 Room Air 10/31/16 18:00 100 10 132/89 98 Room Air 10/31/16 17:21 103 11 129/72 96 Room Air 10/31/16 16:16 126 10/31/16 16:09 37.0 136 97 150/86 Room Air Physical Exam GENERAL: Awake, alert to self but confused, chronically ill-appearing, in no distress HENT: Normocephalic, atraumatic. Dry cracked mucous membranes. EYES: Normal conjunctiva. Scleral icterus. NECK: Supple. No nuchal rigidity. FROM. No JVD. RESPIRATORY: Clear to auscultation. CARDIAC: Regular rate, normal rhythm. Extremities warm and well perfused. Pulses equal. ABDOMEN: Soft, non-distended. No tenderness to palpation. No rebound or guarding. No masses. RECTAL: Deferred. MUSCULOSKELETAL: Bilateral asterixis in upper extremities. Chest examination reveals no tenderness. The back is symmetrical on inspection without obvious abnormality. There is no CVA tenderness to palpation. No joint edema. LOWER EXTREMITIES: Calves are equal size bilaterally and non-tender. No edema. No discoloration. NEURO: Alert to self but confused.. No sensory or motor deficits noted. SKIN: No rash noted. Diffuse jaundice. Medical Decision & Procedures ER Provider Diagnostic Interpretation: Radiology results as stated below per my review and radiologist interpretation: CHEST ONE VIEW PORTABLE CLINICAL HISTORY: Fever and sepsis COMPARISON STUDY: No previous studies for comparison. FINDINGS: The heart is normal in size. There is no failure. There is a slight increase in the interstitial markings the lung bases. While likely atelectatic, an interstitial inflammatory process could appear similar. Clinical and radiographic follow-up is recommended. Multiple embolic coils are visualized within the upper abdomen. No pleural effusions are visualized.[ IMPRESSION: Increased basal interstitial markings. While likely atelectatic, interstitial inflammatory process could appear similar. Clinical and radiographic follow-up is recommended. Electronically signed by: Pawan Garner M.D. 10/31/2016 4:49 PM Dictated Date/Time: 10/31/2016 4:49 PM ABD/PELVIS IV CONTRAST ONLY CLINICAL HISTORY: 61 years-old Male presenting with painless jaundice. TECHNIQUE: Multidetector CT of the abdomen and pelvis was performed after the administration of intravenous contrast. IV contrast: 116 mL of Optiray 320. A dose lowering technique was used consistent with the principles of ALARA (as low as reasonably achievable). COMPARISON: 08/17/2016. CT DOSE (mGy.cm): The estimated cumulative dose is 658.52 mGycm. FINDINGS: [employer] Officer topogram: Posterior lumbar fusion hardware and endovascular coils in the epigastrium noted. Lung bases: Minimal dependent changes likely atelectasis. Pulmonary cyst noted in the right lower lobe. Normal heart size. No pericardial or pleural effusion. Liver: Nodular contour of the liver consistent with cirrhosis. A patent TIPS is in place. Allowing for this single phase examination, no focal liver lesion. Nonopacification of the right hepatic vein distal to the TIPS, expected. Otherwise patent portal and hepatic veins. Biliary: No intrahepatic or extrahepatic biliary ductal dilatation. Gallbladder contains gallstones. Pancreas: Pancreatic parenchyma severely atrophic. Cystic change at the pancreatic tail similar in appearance to prior exam with a focal cystic region measuring 10 mm, either small side branch intraductal papillary mucinous neoplasm or dilated side branch of the in the setting of chronic pancreatitis. Spleen: Enlarged measuring over 14 cm in maximal sagittal dimension. Adrenal glands: Normal. Kidneys and ureters: Normal. No hydronephrosis. Bladder: Mild circumferential bladder wall thickening. Pelvic organs: Prostate and seminal vesicles normal. Bowel: Marked stool burden in the transverse and right colon, which are mildly dilated. Normal appendix. No bowel obstruction. Peritoneal cavity: Small to moderate amount of ascites throughout the abdomen and pelvis, similar to prior exam. Vasculature: Atherosclerosis of the normal caliber abdominal aorta. An infrarenal IVC filter is in place. The IVC is patent. Prominent paraseptal/esophageal varices as well as splenorenal shunts noted. Endovascular coils in the region of the left gastric artery. Patent TIPS. Lymph nodes: No enlarged lymph nodes in the abdomen or pelvis. Abdominal wall: Small umbilical hernia containing ascites. Musculoskeletal: Posterior lumbar fusion hardware at L5-S1. No hardware complication. Anterior vertebral body height loss of L1 suggestive of a compression deformity. This is unchanged from prior exam. IMPRESSION: 1. Cholelithiasis. No biliary ductal dilatation. 2. Cirrhosis with portal hypertension evidenced by splenomegaly and varices. Patent TIPS. 3. Small to moderate ascites, unchanged from prior. 4. Marked stool burden in the right and transverse colon. 5. Mild circumferential bladder wall thickening could suggest chronic outlet obstruction or cystitis. Correlate with urinalysis. Electronically signed by: Slim Sarmiento M.D. 10/31/2016 6:34 PM Dictated Date/Time: 10/31/2016 6:24 PM Laboratory Results 10/31/16 17:05 Red Blood Count 4.00, Mean Corpuscular Volume 85.5, Mean Corpuscular Hemoglobin 28.5, Mean Corpuscular Hemoglobin Concent 33.3, Mean Platelet Volume 9.5, Neutrophils (%) (Auto) 79.5, Lymphocytes (%) (Auto) 15.1, Monocytes (%) (Auto) 3.7, Eosinophils (%) (Auto) 0.9, Basophils (%) (Auto) 0.6, Neutrophils # (Auto) 4.31, Lymphocytes # (Auto) 0.82, Monocytes # (Auto) 0.20, Eosinophils # (Auto) 0.05, Basophils # (Auto) 0.03 10/31/16 17:05 Test 10/31/16 17:05 White Blood Count 5.42 K/uL (4.8-10.8) Red Blood Count 4.00 M/uL (4.7-6.1) Hemoglobin 11.4 g/dL (14.0-18.0) Hematocrit 34.2 % (42-52) Mean Corpuscular Volume 85.5 fL (80-100) Mean Corpuscular Hemoglobin 28.5 pg (25-34) Mean Corpuscular Hemoglobin Concent 33.3 g/dl (32-36) Platelet Count 94 K/uL (130-400) Mean Platelet Volume 9.5 fL (7.4-10.4) Neutrophils (%) (Auto) 79.5 % Lymphocytes (%) (Auto) 15.1 % Monocytes (%) (Auto) 3.7 % Eosinophils (%) (Auto) 0.9 % Basophils (%) (Auto) 0.6 % Neutrophils # (Auto) 4.31 K/uL (1.4-6.5) Lymphocytes # (Auto) 0.82 K/uL (1.2-3.4) Monocytes # (Auto) 0.20 K/uL (0.11-0.59) Eosinophils # (Auto) 0.05 K/uL (0-0.5) Basophils # (Auto) 0.03 K/uL (0-0.2) RDW Standard Deviation 55.7 fL (36.4-46.3) RDW Coefficient of Variation 18.0 % (11.5-14.5) Immature Granulocyte % (Auto) 0.2 % Immature Granulocyte # (Auto) 0.01 K/uL (0.00-0.02) Prothrombin Time 17.8 SECONDS (9.0-12.0) Prothromb Time International Ratio 1.6 (0.9-1.1) Venous Blood pH 7.47 (7.36-7.41) Venous Blood Partial Pressure CO2 35 mmHg (38.0-50.0) Venous Blood Partial Pressure O2 59 mmHg Venous Blood HCO3 24 mmol/L Venous Blood Oxygen Saturation 89.1 % Venous Blood Base Excess 0.9 mEq/L Anion Gap 13.0 mmol/L (3-11) Est Creatinine Clear Calc Drug Dose 80.6 ml/min Estimated GFR () 96.6 Estimated GFR (Non- 83.3 BUN/Creatinine Ratio 5.8 (10-20) Calcium Level 8.2 mg/dl (8.5-10.1) Magnesium Level 1.9 mg/dl (1.8-2.4) Total Bilirubin 6.2 mg/dl (0.2-1) Direct Bilirubin 2.3 mg/dl (0-0.2) Aspartate Amino Transf (AST/SGOT) 66 U/L (15-37) Alanine Aminotransferase (ALT/SGPT) 45 U/L (12-78) Alkaline Phosphatase 205 U/L (45-117) Ammonia 140.0 umol/L (11-32) Troponin I < 0.015 ng/ml (0-0.045) Total Protein 5.3 gm/dl (6.4-8.2) Albumin 2.6 gm/dl (3.4-5.0) Lipase 49 U/L (73-393) Chemistry Specimen Hemolysis Laboratory results reviewed by me Medications Administered Medications (Trade) Dose Ordered Sig/Ryan Route Start Time Stop Time Status Last Admin Dose Admin Sodium Chloride 1,000 ml @ 2,000 mls/hr Q30M ONCE IV 10/31/16 16:12 10/31/16 16:41 DC 10/31/16 16:12 2,000 MLS/HR Sodium Chloride 1,000 ml @ 999 mls/hr Q1H1M STAT IV 10/31/16 18:08 10/31/16 19:08 DC 10/31/16 18:08 999 MLS/HR Lactulose (Chronulac Syrup) 30 gm NOW STAT PO 10/31/16 19:16 10/31/16 19:17 DC 10/31/16 21:03 10 GM ECG Indication: weakness Rate (beats per minute): 123 Rhythm: sinus tachycardia Findings: no acute ischemic change, other (normal axis) ED Course 1609: The patient was evaluated in room C4. A limited history and physical exam was performed. 1612: Ordered NSS 1000 ml @ 2000 mls/hr IV. 1808: Ordered NSS 1000 ml @ 999 mls/hr IV. 6: Ordered Chronulac Syrup 30 gm PO. 1950: Upon reexamination, the patient was resting. I discussed the test results and treatment plan with him. The patient will be evaluated for further management. 1957: I discussed the patient with Dr. Toy Nelson concrete vault maker - he will evaluate the patient for further treatment. Medical Decision I reviewed the patient's past medical history, medications, and the nursing notes as described above. Differential diagnosis includes but is not limited to: worsening liver failure, infection, pneumonia, bronchitis, UTI, cholecystitis, pancreatitis, malignancy. 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 ON arrival the patient is confused and uncomfortable but in NAD. On exam has notable asterixis. Abd is soft and non tender without significant distension. Otherwise WBC wnl but lactate elevated to 4.9. INR 1.6 up from 1.4 previously and LFTs with TB 6.2 and DB 2.3 up from prior but also in the setting of the patient's clinically dry appearance. Ammonia 140s up from prior admission. CT abd pelvis negative with known cirrhosis and associated sequela but otherwise negative for any acute process. Patient given IVF and lactulose. CXR without clear infiltrate and UA negative. Given not clinically significant ascites SBP not likely. Blood cx sent. Given afebrile, HD stable with normal WBC and without infectious source, ABX deferred at this time. Case d/w medicine hospitalist, Dr. Simspon, who will admit the patient for further management. Medication Reconcilliation Current Medication List: was personally reviewed by me Blood Pressure Screening Patient's blood pressure: Elevated blood pressure Blood pressure disposition: Elevated BP felt to be situational Consults Time Called: 1949 Consulting Physician: Dr. Toy Nelson concrete vault maker Returned Call: 1957 I discussed the patient with Dr. Toy Nelson concrete vault maker - he will evaluate the patient for further treatment. Impression Primary Impression: Hepatic encephalopathy Scribe Attestation The scribe's documentation has been prepared under my direction and personally reviewed by me in its entirety. I confirm that the note above accurately reflects all work, treatment, procedures, and medical decision making performed by me. Departure Information Dispostion Being Evaluated By Hospitalist Referrals Chacha Munoz D.O. (PCP) Patient Instructions My [facility]
[2016-10-31] MEDS ORDERED: OPTIRAY 320 IV PRN (16:30)
--- NOTE | 2016-10-31 16:51 | DIAGNOSTIC IMAGING REPORT ---
CHEST ONE VIEW PORTABLE CLINICAL HISTORY: Fever and sepsis COMPARISON STUDY: No previous studies for comparison. FINDINGS: The heart is normal in size. There is no failure. There is a slight increase in the interstitial markings the lung bases. While likely atelectatic, an interstitial inflammatory process could appear similar. Clinical and radiographic follow-up is recommended. Multiple embolic coils are visualized within the upper abdomen. No pleural effusions are visualized.[ IMPRESSION: Increased basal interstitial markings. While likely atelectatic, interstitial inflammatory process could appear similar. Clinical and radiographic follow-up is recommended. Electronically signed by: Pawan Garner M.D. 10/31/2016 4:49 PM Dictated Date/Time: 10/31/2016 4:49 PM
[2016-10-31 17:21] LABS: HEMATOCRIT 34.2 % (42-52); MEAN CELL VOLUME 85.5 fL (80-100); MEAN CORPUSCULAR HEMOGLOBIN 28.5 pg (25-34); MEAN CORPUSCULAR HGB CONC 33.3 g/dl (32-36); WHITE BLOOD COUNT 5.42 K/uL (4.8-10.8)
[2016-10-31 17:33] LABS: VEN BLD GAS O2 SATURATION 89.1 %; VEN BLOOD GAS BASE EXCESS 0.9 mEq/L
[2016-10-31 17:37] LABS: INR 1.6 (0.9-1.1); PROTHROMBIN TIME (PATIENT) 17.8 SECONDS (9.0-12.0)
[2016-10-31 17:47] LABS: MEAN PLATELET VOLUME 9.5 fL (7.4-10.4); PLATELET COUNT 94 K/uL (130-400)
[2016-10-31 17:55] LABS: ALKALINE PHOSPHATASE 205 U/L (45-117); ALT/SGPT 45 U/L (12-78); AST/SGOT 66 U/L (15-37); BLOOD UREA NITROGEN 6 mg/dl (7-18); BUN/CREATININE RATIO 5.8 (10-20); CALCIUM 8.2 mg/dl (8.5-10.1); CARBON DIOXIDE 22 mmol/L (21-32); CHLORIDE 102 mmol/L (98-107); CREATININE 0.97 mg/dl (0.60-1.40); GLUCOSE 266 mg/dl (70-99); POTASSIUM 3.5 mmol/L (3.5-5.1); SODIUM 137 mmol/L (136-145)
[2016-10-31] MEDS ORDERED: SODIUM CHLORIDE 0.9% 1000ML 1,000 ML IV STA (18:08)
--- NOTE | 2016-10-31 18:35 | DIAGNOSTIC IMAGING REPORT ---
ABD/PELVIS IV CONTRAST ONLY CLINICAL HISTORY: 61 years-old Male presenting with painless jaundice. TECHNIQUE: Multidetector CT of the abdomen and pelvis was performed after the administration of intravenous contrast. IV contrast: 116 mL of Optiray 320. A dose lowering technique was used consistent with the principles of ALARA (as low as reasonably achievable). COMPARISON: 08/17/2016. CT DOSE (mGy.cm): The estimated cumulative dose is 658.52 mGycm. FINDINGS: [employer] topogram: Posterior lumbar fusion hardware and endovascular coils in the epigastrium noted. Lung bases: Minimal dependent changes likely atelectasis. Pulmonary cyst noted in the right lower lobe. Normal heart size. No pericardial or pleural effusion. Liver: Nodular contour of the liver consistent with cirrhosis. A patent TIPS is in place. Allowing for this single phase examination, no focal liver lesion. Nonopacification of the right hepatic vein distal to the TIPS, expected. Otherwise patent portal and hepatic veins. Biliary: No intrahepatic or extrahepatic biliary ductal dilatation. Gallbladder contains gallstones. Pancreas: Pancreatic parenchyma severely atrophic. Cystic change at the pancreatic tail similar in appearance to prior exam with a focal cystic region measuring 10 mm, either small side branch intraductal papillary mucinous neoplasm or dilated side branch of the in the setting of chronic pancreatitis. Spleen: Enlarged measuring over 14 cm in maximal sagittal dimension. Adrenal glands: Normal. Kidneys and ureters: Normal. No hydronephrosis. Bladder: Mild circumferential bladder wall thickening. Pelvic organs: Prostate and seminal vesicles normal. Bowel: Marked stool burden in the transverse and right colon, which are mildly dilated. Normal appendix. No bowel obstruction. Peritoneal cavity: Small to moderate amount of ascites throughout the abdomen and pelvis, similar to prior exam. Vasculature: Atherosclerosis of the normal caliber abdominal aorta. An infrarenal IVC filter is in place. The IVC is patent. Prominent paraseptal/esophageal varices as well as splenorenal shunts noted. Endovascular coils in the region of the left gastric artery. Patent TIPS. Lymph nodes: No enlarged lymph nodes in the abdomen or pelvis. Abdominal wall: Small umbilical hernia containing ascites. Musculoskeletal: Posterior lumbar fusion hardware at L5-S1. No hardware complication. Anterior vertebral body height loss of L1 suggestive of a compression deformity. This is unchanged from prior exam. IMPRESSION: 1. Cholelithiasis. No biliary ductal dilatation. 2. Cirrhosis with portal hypertension evidenced by splenomegaly and varices. Patent TIPS. 3. Small to moderate ascites, unchanged from prior. 4. Marked stool burden in the right and transverse colon. 5. Mild circumferential bladder wall thickening could suggest chronic outlet obstruction or cystitis. Correlate with urinalysis. Electronically signed by: Slim Sarmiento M.D. 10/31/2016 6:34 PM Dictated Date/Time: 10/31/2016 6:24 PM
[2016-10-31 19:05] LABS: BASO % 0.6 %; BASO ABS # 0.03 K/uL (0-0.2); COMPLETE YES; EOS % 0.9 %; IG% 0.2 %; LYMPH % 15.1 %; LYMPH ABS # 0.82 K/uL (1.2-3.4); MONO % 3.7 %; NEUT % 79.5 %
[2016-10-31] MEDS ORDERED: LACTULOSE SYRUP 20 GM/30 ML UDC PO STA (19:16)
[2016-10-31 20:49] LABS: MAGNESIUM 1.9 mg/dl (1.8-2.4)
--- NOTE | 2016-10-31 21:09 | History and Physical ---
History & Physical Date & Time of Service: Oct 31, 2016 at 21:01 Chief Complaint: Weakness, Ams Primary Care Physician: Chacha Munoz D.O. History of Present Illness Source: patient, clinic records, hospital records This is a 61yo M with a PMH of BETANCOURT cirrhosis, hepatic encephalopathy, esophageal varices, thrombocytopenia, DM II and hypothyroidism who presents with confusion that began earlier today. Patient was recently admitted for hepatic encephalopathy on 10/24 and was discharged on 10/29. States that he felt fine at the time of discharge but has become weak and confused since then. Unable to provide a more detailed history / confusion. Was brought to the ER by EMS after roommate noticed his confusion today. Patient had a TIPS procedure on 10/20/16 at [facility]. Per chart review, TIPS procedure was uncomplicated and patient had no bleeding from transjugular insertion site. Patient states that he has been taking medications but is unsure of the last time he took lactulose or insulin. Per nursing note, home health nurse does not think patient has been compliant with medications since discharged home on the . Is currently oriented to person but not place or time. States he just "feels badly". Denies any abdominal pain at this time. Denies fever, chills, CP , SOB, nausea, vomiting, diarrhea, constipation, dysuria, LE swelling. 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 Surgical Problems: (1) H/O esophagogastroduodenoscopy Status: Resolved (2) H/O knee surgery Status: Resolved (3) S/P cervical spinal fusion Status: Resolved (4) S/P IVC filter Status: Resolved (5) S/P lumbar fusion Status: Resolved (6) S/P T&A (status post tonsillectomy and adenoidectomy) Status: Resolved Family History FH: CAD (coronary artery disease) FATHER FH: breast cancer MOTHER Social History Smoking Status: Never Smoker Drug Use: none Marital Status: single Housing status: lives with roommate Occupational Status: retired Immunizations History of Influenza Vaccine: Yes Influenza Vaccine Date: Oct 21, 2014 History of Tetanus Vaccine?: Yes Tetanus Immunization Date: Mar 15, 1972 History of Pneumococcal: Yes Pneumococcal Date: Feb 05, 2009 History of Hepatitis B Vaccine: Yes Hepatitis Immunization Date: June 18, 2013 Multi-Drug Resistant Organisms History of MDRO: No Allergies Coded Allergies: Acetaminophen (Verified Allergy, Severe, ESLD (BETANCOURT). on Liver transplant list. Cannot have APAP., 10/31/16) Morphine (Verified Allergy, Severe, RED HIVE WENT UP ARM FROM IV SITE, ) NSAIDs (Verified Allergy, Severe, DUE TO LIVER DISEAS, 10/31/16) Penicillins (Verified Allergy, Severe, JOINT SWELLING AND FEVER, 10/31/16) Fentanyl (Verified Allergy, Intermediate, rash, 10/31/16) Levofloxacin (Verified Allergy, Intermediate, RASH, 10/31/16) pt developed erythema at site of IV injection with itching Vancomycin (Verified Allergy, Mild, HIVES, 10/31/16) HIVES Tramadol (Verified Allergy, Unknown, NOT TO TAKE WITH KEPPRA DUE TO SEIZURE RISK, 10/31/16) Home Medications Scheduled Escitalopram Oxalate (Lexapro), 20 MG PO DAILY Ferrous Sulfate (Kp Ferrous Sulfate), 325 MG PO BID Furosemide (Lasix), 40 MG PO DAILY Insulin Aspart (Novolog), 14 UNITS SQ TIDM Insulin Glargine (Lantus), 38 UNITS SC BID Lactulose (Chronulac), 20 ML PO QID Levetiractam (Levetiracetam), 500 MG PO BID Levothyroxine Sodium (Synthroid), 75 MCG PO QAM Magnesium Oxide (Mag-Ox), 400 MG PO BID Melatonin (Kp Melatonin), 2 MG PO HS Pantoprazole (Protonix), 40 MG PO BID Polyethylene Glycol 3350 (Miralax), 17 GM PO BID Pyridoxine Hcl (Vitamin B-6), 25 MG PO HS Rifaximin (Xifaxan), 550 MG PO BID Spironolactone (Aldactone), 100 MG PO BID Scheduled PRN Diphenhydramine Hcl (Benadryl), 25 MG PO BID PRN for Itching Hydromorphone Hcl (Dilaudid), 4 MG PO Q6 PRN for Pain Ondasetron Odt (Zofran Odt), 1-2 MG SL Q8 PRN for Nausea or Vomiting Triamcinolone Acet (Aristocort 0.1%), 1 APPL EXT BID PRN for dermatitis Review of Systems Ten systems reviewed and negative except as noted in the HPI. Physical Exam Vital Signs Date Time Temp Pulse Resp B/P (MAP) Pulse Ox O2 Delivery O2 Flow Rate FiO2 10/31/16 20:50 118 18 159/90 99 Room Air 10/31/16 20:30 94 10/31/16 19:21 101 14 123/69 100 Room Air 10/31/16 18:29 114 18 152/97 99 Room Air 10/31/16 18:00 100 10 132/89 98 Room Air 10/31/16 17:21 103 11 129/72 96 Room Air 10/31/16 16:16 126 10/31/16 16:09 37.0 136 97 150/86 Room Air General Appearance: no apparent distress (Sleeping comfortably. Chronically ill appearing ) Head: normocephalic, atraumatic Eyes: normal inspection, PERRL, + abnormal sclerae exam (scleral icterus) ENT: hearing grossly normal Neck: supple, no adenopathy, trachea midline Respiratory/Chest: chest non-tender, lungs clear, normal breath sounds, no respiratory distress, no accessory muscle use Cardiovascular: regular rate, rhythm, no murmur Abdomen/GI: normal bowel sounds, non tender, soft (hernia visualized ), no organomegaly Back: normal inspection Extremities/Musculoskelatal: normal inspection, no calf tenderness, normal capillary refill, no pedal edema Neurologic/Psych: alert (Oriented to self, not to place or time. Confused during exam. ) Skin: + jaundice Diagnostics Laboratory Results Results Past 24 Hours Test 10/31/16 16:12 10/31/16 17:05 10/31/16 20:24 10/31/16 20:25 Range/Units White Blood Count 5.42 4.8-10.8 K/uL Red Blood Count 4.00 4.7-6.1 M/uL Hemoglobin 11.4 14.0-18.0 g/dL Hematocrit 34.2 42-52 % Mean Corpuscular Volume 85.5 80-100 fL Mean Corpuscular Hemoglobin 28.5 25-34 pg Mean Corpuscular Hemoglobin Concent 33.3 32-36 g/dl Platelet Count 94 130-400 K/uL Mean Platelet Volume 9.5 7.4-10.4 fL Neutrophils (%) (Auto) 79.5 % Lymphocytes (%) (Auto) 15.1 % Monocytes (%) (Auto) 3.7 % Eosinophils (%) (Auto) 0.9 % Basophils (%) (Auto) 0.6 % Neutrophils # (Auto) 4.31 1.4-6.5 K/uL Lymphocytes # (Auto) 0.82 1.2-3.4 K/uL Monocytes # (Auto) 0.20 0.11-0.59 K/uL Eosinophils # (Auto) 0.05 0-0.5 K/uL Basophils # (Auto) 0.03 0-0.2 K/uL RDW Standard Deviation 55.7 36.4-46.3 fL RDW Coefficient of Variation 18.0 11.5-14.5 % Immature Granulocyte % (Auto) 0.2 % Immature Granulocyte # (Auto) 0.01 0.00-0.02 K/uL Prothrombin Time 17.8 9.0-12.0 SECONDS Prothromb Time International Ratio 1.6 0.9-1.1 Venous Blood pH 7.47 7.36-7.41 Venous Blood Partial Pressure CO2 35 38.0-50.0 mmHg Venous Blood Partial Pressure O2 59 mmHg Venous Blood HCO3 24 mmol/L Venous Blood Oxygen Saturation 89.1 % Venous Blood Base Excess 0.9 mEq/L Sodium Level 137 136-145 mmol/L Potassium Level 3.5 3.5-5.1 mmol/L Chloride Level 102 98-107 mmol/L Carbon Dioxide Level 22 21-32 mmol/L Anion Gap 13.0 3-11 mmol/L Blood Urea Nitrogen 6 7-18 mg/dl Creatinine 0.97 0.60-1.40 mg/dl Est Creatinine Clear Calc Drug Dose 80.6 ml/min Estimated GFR () 96.6 Estimated GFR (Non- 83.3 BUN/Creatinine Ratio 5.8 10-20 Random Glucose 266 70-99 mg/dl Lactic Acid Level 4.9 0.4-2.0 mmol/L Calcium Level 8.2 8.5-10.1 mg/dl Magnesium Level 1.9 1.8-2.4 mg/dl Total Bilirubin 6.2 0.2-1 mg/dl Direct Bilirubin 2.3 0-0.2 mg/dl Aspartate Amino Transf (AST/SGOT) 66 15-37 U/L Alanine Aminotransferase (ALT/SGPT) 45 12-78 U/L Alkaline Phosphatase 205 45-117 U/L Ammonia 140.0 11-32 umol/L Troponin I < 0.015 0-0.045 ng/ml Total Protein 5.3 6.4-8.2 gm/dl Albumin 2.6 3.4-5.0 gm/dl Lipase 49 73-393 U/L Chemistry Specimen Hemolysis Microbiology Results 10/31/16 Blood Culture, Received Pending 10/31/16 Blood Culture, Received Pending 10/31/16 Urine Culture, Raegan Batch Pending Diagnostic Radiology CT abd/pelvis: IMPRESSION: 1. Cholelithiasis. No biliary ductal dilatation. 2. Cirrhosis with portal hypertension evidenced by splenomegaly and varices. Patent TIPS. 3. Small to moderate ascites, unchanged from prior. 4. Marked stool burden in the right and transverse colon. 5. Mild circumferential bladder wall thickening could suggest chronic outlet obstruction or cystitis. Correlate with urinalysis. CXR: IMPRESSION: Increased basal interstitial markings. While likely atelectatic, interstitial inflammatory process could appear similar. Clinical and radiographic follow-up is recommended. Impression Assessment and Plan This is a 61yo M with a PMH of BETANCOURT cirrhosis, hepatic encephalopathy, esophageal varices, thrombocytopenia, DM II and hypothyroidism who presents with confusion that began earlier today. 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 Cirrhosis: -A&Ox1, difficulty following directions during exam -Ammonia elevated to 140 -S/p TIPs procedure on 10/20 -CT abd/pelvis shows cirrhosis with portal hypertension evidenced by splenomegaly and varices.Patent TIPS Small to moderate ascites, unchanged from prior -Given lactulose in ER -Tox screen pending Elevated Lactic acid: -Lactic acid elevated to 4.9 -Repeat level pending -Tachycardic to 110s, BP is normal-high -No leukocytosis, does not look septic -Blood cultures pending Possible UTI: -Mild circumferential bladder wall thickening on CT abd/pelvis; could suggest chronic outlet obstruction or cystitis -UA pending DM II: (uncontrolled) -BG of 266 on admission -Resumed home regimen of 38U Lantus BID, SSI -Glycemic consult for recs -BG checks AC HS Thrombocytopenia -Platelets of 94 -Monitor daily Esophageal Varices -Hgb stable, monitor Hypothyroidism -Continue Synthroid DVT Ppx: SCDs 2/2 thrombocytopenia Code status: FULL PCP: Alexander Dispo: Plan to return home once medically stable Please see attending addendum for further details. Level of Care Telemetry Resuscitation Status FULL RESUSCITATION VTE Prophylaxis VTE Risk Assessment Done? Y/N: Yes Risk Level: High Given or contraindicated: SCD's Assessment/Plan IM ATTENDING : Patient seen and examined. History obtained from patient and records. Preceding documentation by Ms. Jocelyn Moya PA-C reviewed. FINAL ASSESSMENT AND PLAN as follows : 1. Hepatic encephalopathy hx TIPS possible medical noncompliance UTI, possible SBP, possible sepsis 2. cirrhosis secondary to NAFLD some decompensation 3. DM2, insulin requiring suboptimal control as of recent HgA1c 4. chronic anemia, hemoglobin at baseline 5. seizure disorder well-controlled 6. history of PE/DVT sp IVC filter placement Off anticoagulation because of bleeding risk 7. chronic pain on narcotics. PLAN: GMF Facilitate lactulose, rifaximin Urine cultures, Cefepime for now. ? dx paracentesis. GI consult RE hepatic encephalopathy. Basal insulin, ISS BG goal 140-180. Carb count coverage indicated for suboptimal blood sugar control. PT, OT eval. Judicious narcotic use. DVT prophylaxis, SCD RE thrombocytopenia Full code.
[2016-10-31 21:28] LABS: URINE APPEARANCE CLEAR (CLEAR); URINE COLOR ORANGE; URINE NITRITE POS (NEG); URINE PH 6.5 (4.5-7.5); URINE SPECIFIC GRAVITY > 1.045 (1.000-1.030); UROBILINOGEN NEG (NEG)
[2016-10-31 21:44] LABS: BENZODIAZEPINE, URINE NEG (NEG); COCAINE,URINE NEG (NEG); PHENCYCLIDINE, URINE NEG (NEG)
[2016-10-31 21:45] LABS: MANUAL MICROSCOPIC REQUIRED? NO; REVIEW REQ? NO; URINE BILIRUBIN NEG (NEG)
[2016-10-31] MEDS ORDERED: INSULIN ASPART 100 UNITS/ML 3 ML PEN SC ONE (22:06)
[2016-10-31] MEDS ORDERED: INSULIN GLARGINE SOLOSTAR 100 UNITS/ML 3 ML PEN SC ONE (22:06)
[2016-10-31] MEDS ORDERED: RIFAXIMIN TAB 550 MG TAB PO ONE (22:06)
[2016-10-31] MEDS ORDERED: LACTULOSE SYRUP 20 GM/30 ML UDC PO ONE (22:06)
[2016-10-31] MEDS ORDERED: GLUCOSE 40% GEL 15 GM TUBE PO PRN (22:15)
[2016-10-31] MEDS ORDERED: GLUCOSE 10 TABS/TUBE PO PRN (22:15)
[2016-10-31] MEDS ORDERED: GLUCAGON FOR INJ 1 MG VIAL SQ PRN (22:15)
[2016-10-31] MEDS ORDERED: ACETAMINOPHEN 325 MG TAB PO PRN (22:15)
[2016-10-31] MEDS ORDERED: DEXTROSE 50% 50 ML SYR IV PRN (22:15)
[2016-10-31] MEDS ORDERED: CEFEPIME CONSULT ACTIVE PRN ×2 (22:45)
[2016-10-31 23:06] VITALS: BP 133/69; PULSE 109; TEMP 36.4; Ht 182.9 cm; Wt 73.6 kg
[2016-10-31 23:46] VITALS: BP 127/70; PULSE 103; TEMP 36.6; O2SAT 100
[2016-10-31] MEDS: CEFEPIME IV 1,000 MG in DEXTROSE 5% 100ML 100 ML IV SCH (23:55)
[2016-11-01] VITALS: O2SAT 99
[2016-11-01 03:36] VITALS: BP 120/72; PULSE 100; TEMP 36.5; O2SAT 99
[2016-11-01] MEDS ORDERED: LACTULOSE 200GM/700ML WTR ENEMA PR ONE (03:45)
[2016-11-01] MEDS: ALBUMIN HUMAN 25% 12.5 GM/50 ML VIAL IV SCH ×2 (04:57→05:43)
--- NOTE | 2016-11-01 05:15 | HISTORY & PHYSICAL EXAMINATION ---
DATE OF ADMISSION: 10/31/2016 IM ATTENDING : Patient seen and examined. History obtained from patient and records. Preceding documentation by Ms. Jocelyn Moya PA-C reviewed. FINAL ASSESSMENT AND PLAN as follows : 1. Hepatic encephalopathy hx TIPS possible medical noncompliance UTI, possible SBP, possible sepsis 2. cirrhosis secondary to NAFLD some decompensation 3. DM2, insulin requiring suboptimal control as of recent HgA1c 4. chronic anemia, hemoglobin at baseline 5. seizure disorder well-controlled 6. history of PE/DVT sp IVC filter placement Off anticoagulation because of bleeding risk 7. chronic pain on narcotics. PLAN: GMF Facilitate lactulose, rifaximin Urine cultures, Cefepime for now. ? dx paracentesis. GI consult RE hepatic encephalopathy. Basal insulin, ISS BG goal 140-180. Carb count coverage indicated for suboptimal blood sugar control. PT, OT eval. Judicious narcotic use. DVT prophylaxis, SCD RE thrombocytopenia Full code. MTDD
[2016-11-01] MEDS: LEVOTHYROXINE 75 MCG TAB PO SCH (06:26)
[2016-11-01 07:23] VITALS: BP 140/76; PULSE 107; TEMP 36.5; O2SAT 99
[2016-11-01] MEDS: INSULIN ASPART 100 UNITS/ML 3 ML PEN SC SCH ×4 (08:00→21:00)
[2016-11-01] MEDS: POLYETHYLENE (MIRALAX) 17 GM PACK PO SCH ×2 (08:01→21:15)
[2016-11-01] MEDS: LACTULOSE SYRUP 20 GM/30 ML UDC PO SCH ×4 (08:01→21:11)
[2016-11-01] MEDS: RIFAXIMIN TAB 550 MG TAB PO SCH ×2 (08:02→21:13)
[2016-11-01] MEDS: LEVETIRACETAM 500 MG TAB PO SCH ×2 (08:02→21:13)
[2016-11-01] MEDS: ESCITALOPRAM OXALATE 20 MG TAB PO SCH (08:02)
[2016-11-01] MEDS: FERROUS SULFATE 325 MG TAB PO SCH ×2 (08:02→21:12)
[2016-11-01] MEDS: INSULIN GLARGINE SOLOSTAR 100 UNITS/ML 3 ML PEN SC SCH ×2 (08:06→21:16)
[2016-11-01] MEDS: PANTOprazole SOD 40 MG TAB PO SCH ×2 (08:44→21:11)
[2016-11-01 10:00] LABS: ALB/GLOB RATIO 1.1 (0.9-2); BUN/CREATININE RATIO 7.1 (10-20); CREATININE 0.73 mg/dl (0.60-1.40); POTASSIUM 3.3 mmol/L (3.5-5.1)
[2016-11-01 10:00] LABS: HEMATOCRIT 32.6 % (42-52); MEAN CELL VOLUME 84.9 fL (80-100); MEAN CORPUSCULAR HEMOGLOBIN 28.6 pg (25-34); RED BLOOD COUNT 3.84 M/uL (4.7-6.1); WHITE BLOOD COUNT 4.71 K/uL (4.8-10.8)
[2016-11-01 10:08] LABS: MEAN CORPUSCULAR HGB CONC 33.7 g/dl (32-36); PLATELET COUNT 74 K/uL (130-400)
[2016-11-01 10:21] LABS: ANISOCYTOSIS PRESENT; BASO % 0.6 %; BASO ABS # 0.03 K/uL (0-0.2); COMPLETE YES; ECHINOCYTES 1+; EOS % 1.7 %; GIANT PLATELETS 1+; HYPERSEGMENTED POLYS 1+; IG% 0.2 %; LYMPH % 14.4 %; LYMPH ABS # 0.68 K/uL (1.2-3.4); MONO % 9.3 %; NEUT % 73.8 %
[2016-11-01] MEDS: HYDROmorphone HCL 2 MG TAB PO PRN ×2 (10:22→21:22)
[2016-11-01] MEDS: CEFEPIME IV 1,000 MG in DEXTROSE 5% 100ML 100 ML IV SCH ×2 (10:51→23:11)
[2016-11-01] MEDS ORDERED: LORAZEPAM INJ 0.25 MG in SYRINGE 0.25 ML IV ONE (11:00)
--- NOTE | 2016-11-01 17:03 | Gastrointestinal Consultation ---
Gastrointestinal Consultation Date of Consultation: Nov 01, 2016 Attending Physician: Ksenia Hanks Consulting Physician: Levi Nielson Reason for Consultation: Hepatic encephalopathy History of Present Illness Patient is a 61 year old male w hx of NAFLD cirrhosis complicated by ascites and hepatic encephalopathy, esophageal varices, who was brought into ED by family for confusion. He had TIPS procedure on 10/20/16, developed confusion and was admitted from 10/24 to 10/28. See by MAYI Mcgovern and Dr. Mo at that admission. Ammonia level then was normal, TIPS patent. He was started on Rifaximin 550mg BID. He was DC'd home on 10/28. It was noted by home health nurse that pt may not be compliant w meds since DC'd. Yesterday pt was found to be disoriented by nephew and brought to ED. Upon eval, CBC unremarkable, LFTs w slightly increased Tbili from baseline 4 to 6, but similar transaminases. Ammonia level 129. Urine and blood cx pending. CXR showed signs of atelectasis, CT abd/pelvis showed small to mod ascites, TIPS patent, stool burden on right and transverse colon. Today upon examination, he remembers my name but was teary and kept repeating he wants to go home. He is c/o abdominal pain. He is oriented to self and place only. Past Medical/Surgical History Medical Problems: (1) Abdominal pain Status: Acute (2) Abdominal pain Status: Acute (3) Abdominal pain Status: Acute (4) Acute hyperglycemia Status: Acute (5) Ambulatory dysfunction Status: Acute (6) Ambulatory dysfunction Status: Acute (7) Anasarca Status: Acute (8) Anemia Status: Acute (9) Anemia Status: Acute (10) Anemia Status: Acute (11) Arm pain, right Status: Acute (12) Ascites Status: Acute (13) Ascites Status: Acute (14) Ascites Status: Acute (15) Ascites Status: Acute (16) Ascites Status: Acute (17) Cellulitis of scrotum Status: Acute (18) Chest pain Status: Acute (19) Chronic liver failure Status: Acute (20) Chronic low back pain Status: Acute (21) Cirrhosis Status: Acute (22) Cirrhosis of liver Status: Acute (23) Contusion of left foot Status: Acute (24) Dehydration Status: Acute (25) Diarrhea Status: Acute (26) Diarrhea Status: Acute (27) Diffuse abdominal pain Status: Acute (28) Diffuse abdominal pain Status: Acute (29) Diffuse abdominal pain Status: Acute (30) Diffuse abdominal pain Status: Acute (31) Dyspnea Status: Acute (32) Dyspnea Status: Acute (33) Failure of outpatient treatment Status: Acute (34) Fall Status: Acute (35) Generalized weakness Status: Acute (36) Generalized weakness Status: Acute (37) Hepatic encephalopathy Status: Acute (38) HHNC (hyperglycemic hyperosmolar nonketotic coma) Status: Acute (39) Hyperammonemia Status: Acute (40) Hyperglycemia Status: Acute (41) Hyperglycemia Status: Acute (42) Hyperglycemia Status: Acute (43) Hyperglycemia Status: Acute (44) Hyperglycemia due to type 2 diabetes mellitus Status: Acute (45) Hypoglycemia Status: Acute (46) Hypoglycemia Status: Acute (47) Left arm pain Status: Acute (48) Left sided chest pain Status: Acute (49) Muscle weakness Status: Acute (50) Nausea vomiting and diarrhea Status: Acute (51) Nausea, vomiting, and diarrhea Status: Acute (52) Thrombocytopenia Status: Acute (53) Thrombocytopenia Status: Acute (54) Weakness Status: Acute Past Medical History: PE, DM II, HTN, Seizure hx, pulmonary HTN, mesentery artery thrombosis, hyperlipidemia, hypothyroidism, pericardial effusion Past Surgical History: IVC filter placement, cervial spinal fusion, lumbar fusion, T&A, knee surgery Family History FH: CAD (coronary artery disease) FATHER FH: breast cancer MOTHER Social History Smoking Status: Never Smoker Alcohol Use: none Drug Use: none Marital Status: single Housing Status: lives with roommate Occupation Status: retired Allergies Coded Allergies: Acetaminophen (Verified Allergy, Severe, ESLD (BETANCOURT). on Liver transplant list. Cannot have APAP., 10/31/16) Morphine (Verified Allergy, Severe, RED HIVE WENT UP ARM FROM IV SITE, ) NSAIDs (Verified Allergy, Severe, DUE TO LIVER DISEAS, 10/31/16) Penicillins (Verified Allergy, Severe, JOINT SWELLING AND FEVER, 10/31/16) Fentanyl (Verified Allergy, Intermediate, rash, 10/31/16) Levofloxacin (Verified Allergy, Intermediate, RASH, 10/31/16) pt developed erythema at site of IV injection with itching Vancomycin (Verified Allergy, Mild, HIVES, 10/31/16) HIVES Tramadol (Verified Allergy, Unknown, NOT TO TAKE WITH KEPPRA DUE TO SEIZURE RISK, 10/31/16) Current Medications Home Meds and Scripts Medications Dose Route/Sig Max Daily Dose Days Date Category Dose Instructions Xifaxan (Rifaximin) 550 Mg Tab 550 Mg PO BID 30 10/28/16 Rx Kp Melatonin (Melatonin) 3 Mg Tab 2 Mg PO HS 30 10/24/16 Reported Lexapro (Escitalopram Oxalate) 20 Mg Tab 20 Mg PO DAILY 10/01/16 Reported Benadryl (Diphenhydramine Hcl) 25 Mg Cap 25 Mg PO BID PRN 09/18/16 Reported Miralax (Polyethylene Glycol 3350) 1 Pow Pow 17 Gm PO BID 08/29/16 Reported Lantus (Insulin Glargine) 100 Unit/Ml Inj 38 Units SC BID 08/29/16 Reported Lasix (Furosemide) 40 Mg Tab 40 Mg PO DAILY 08/17/16 Reported Dilaudid (Hydromorphone Hcl) 4 Mg Tab 4 Mg PO Q6 PRN 07/01/16 Reported Novolog (Insulin Aspart) 100 Units/Ml Inj 14 Units SQ TIDM 05/15/16 Reported PLUS SLIDING SCALE Kp Ferrous Sulfate (Ferrous Sulfate) 325 Mg Tab 325 Mg PO BID 04/27/16 Reported Chronulac (Lactulose) 10 Gm/15 Ml Syrp 20 Ml PO QID 03/27/16 Reported Aristocort 0.1% (Triamcinolone Acet) 90 Appln/30 Gm Cr 1 Appl EXT BID PRN 03/27/16 Reported Levetiracetam (Levetiractam) 500 Mg Tab 500 Mg PO BID 03/13/16 Reported Aldactone (Spironolactone) 100 Mg Tab 100 Mg PO BID 12/10/15 Reported Vitamin B-6 (Pyridoxine Hcl) 25 Mg Tab 25 Mg PO HS 06/04/15 Reported Synthroid (Levothyroxine Sodium) 75 Mcg Tab 75 Mcg PO QAM 05/07/15 Reported Zofran Odt (Ondansetron HCl) 4 Mg Tab 1-2 Mg SL Q8 PRN 05/07/15 Reported Protonix (Pantoprazole) 40 Mg Tab 40 Mg PO BID 08/04/14 Reported Mag-Ox (Magnesium Oxide) 400 Mg Tab 400 Mg PO BID 09/29/11 Reported Review of Systems Constitutional: No fever Respiratory: No cough, No shortness of breath Cardiac: No chest pain Abdomen: + pain (diffuse ), No nausea, No vomiting Physical Exam Date Time Temp Pulse Resp B/P (MAP) Pulse Ox O2 Delivery O2 Flow Rate FiO2 11/01/16 08:15 Room Air 11/01/16 07:23 36.5 107 18 140/76 (97) 99 Room Air 11/01/16 03:36 36.5 100 18 120/72 (88) 99 Room Air 11/01/16 00:00 99 Room Air 10/31/16 23:46 36.6 103 18 127/70 (89) 100 Room Air 10/31/16 23:06 36.4 109 18 133/69 Room Air 10/31/16 20:50 118 18 159/90 99 Room Air 10/31/16 20:30 94 10/31/16 19:21 101 14 123/69 100 Room Air 10/31/16 18:29 114 18 152/97 99 Room Air 10/31/16 18:00 100 10 132/89 98 Room Air 10/31/16 17:21 103 11 129/72 96 Room Air 10/31/16 16:16 126 10/31/16 16:09 37.0 136 97 150/86 Room Air General Appearance: + mild distress (appears depressed, kept repeating wants to go home. ) Neck: supple, no JVD, trachea midline Respiratory/Chest: no respiratory distress, no accessory muscle use Cardiovascular: regular rate, rhythm, no gallop, no JVD Abdomen: soft, + tenderness Extremities: normal inspection, no pedal edema, no calf tenderness Neurologic/Psych: + disoriented Skin: normal color, warm/dry, no rash Laboratory Results Last 24 Hours Test 10/31/16 16:10 10/31/16 16:23 10/31/16 17:05 10/31/16 21:10 Bedside Glucose 297 mg/dl 264 mg/dl White Blood Count 5.42 K/uL Red Blood Count 4.00 M/uL Hemoglobin 11.4 g/dL Hematocrit 34.2 % Mean Corpuscular Volume 85.5 fL Mean Corpuscular Hemoglobin 28.5 pg Mean Corpuscular Hemoglobin Concent 33.3 g/dl Platelet Count 94 K/uL Mean Platelet Volume 9.5 fL Neutrophils (%) (Auto) 79.5 % Lymphocytes (%) (Auto) 15.1 % Monocytes (%) (Auto) 3.7 % Eosinophils (%) (Auto) 0.9 % Basophils (%) (Auto) 0.6 % Neutrophils # (Auto) 4.31 K/uL Lymphocytes # (Auto) 0.82 K/uL Monocytes # (Auto) 0.20 K/uL Eosinophils # (Auto) 0.05 K/uL Basophils # (Auto) 0.03 K/uL RDW Standard Deviation 55.7 fL RDW Coefficient of Variation 18.0 % Immature Granulocyte % (Auto) 0.2 % Immature Granulocyte # (Auto) 0.01 K/uL Prothrombin Time 17.8 SECONDS Prothromb Time International Ratio 1.6 Venous Blood pH 7.47 Venous Blood Partial Pressure CO2 35 mmHg Venous Blood Partial Pressure O2 59 mmHg Venous Blood HCO3 24 mmol/L Venous Blood Oxygen Saturation 89.1 % Venous Blood Base Excess 0.9 mEq/L Sodium Level 137 mmol/L Potassium Level 3.5 mmol/L Chloride Level 102 mmol/L Carbon Dioxide Level 22 mmol/L Anion Gap 13.0 mmol/L Blood Urea Nitrogen 6 mg/dl Creatinine 0.97 mg/dl Est Creatinine Clear Calc Drug Dose 80.6 ml/min Estimated GFR () 96.6 Estimated GFR (Non- 83.3 BUN/Creatinine Ratio 5.8 Random Glucose 266 mg/dl Lactic Acid Level 4.9 mmol/L Calcium Level 8.2 mg/dl Magnesium Level 1.9 mg/dl Total Bilirubin 6.2 mg/dl Direct Bilirubin 2.3 mg/dl Aspartate Amino Transf (AST/SGOT) 66 U/L Alanine Aminotransferase (ALT/SGPT) 45 U/L Alkaline Phosphatase 205 U/L Ammonia 140.0 umol/L Troponin I < 0.015 ng/ml Total Protein 5.3 gm/dl Albumin 2.6 gm/dl Lipase 49 U/L Chemistry Specimen Hemolysis Urine Color ORANGE Urine Appearance CLEAR Urine pH 6.5 Urine Specific [place] > 1.045 Urine Protein NEG Urine Glucose (UA) 1+ Urine Ketones NEG Urine Occult Blood NEG Urine Nitrite POS Urine Bilirubin NEG Urine Urobilinogen NEG Urine Leukocyte Esterase NEG Urine WBC (Auto) 1-5 /hpf Urine RBC (Auto) 0-4 /hpf Urine Hyaline Casts (Auto) 1-5 /lpf Urine Epithelial Cells (Auto) 5-10 /lpf Urine Bacteria (Auto) NEG Urine Opiates Screen POS Urine Methadone, Qualitative NEG Urine Barbiturates NEG Urine Phencyclidine (PCP) Level NEG Ur Amphetamine/Methamphetamine NEG MDMA (Ecstasy) Screen NEG Urine Benzodiazepines Screen NEG Urine Cocaine Metabolite NEG Urine Marijuana (THC) NEG Test 10/31/16 21:41 11/01/16 00:00 11/01/16 07:38 11/01/16 08:40 Lactic Acid Level 4.4 mmol/L Bedside Glucose 176 mg/dl 132 mg/dl Sodium Level 141 mmol/L Potassium Level 3.3 mmol/L Chloride Level 108 mmol/L Carbon Dioxide Level 21 mmol/L Anion Gap 12.0 mmol/L Blood Urea Nitrogen 5 mg/dl Creatinine 0.73 mg/dl Est Creatinine Clear Calc Drug Dose 110.9 ml/min Estimated GFR () 115.2 Estimated GFR (Non- 99.4 BUN/Creatinine Ratio 7.1 Random Glucose 125 mg/dl Calcium Level 8.0 mg/dl Total Bilirubin 6.1 mg/dl Aspartate Amino Transf (AST/SGOT) 58 U/L Alanine Aminotransferase (ALT/SGPT) 38 U/L Alkaline Phosphatase 169 U/L Total Protein 5.0 gm/dl Albumin 2.6 gm/dl Globulin 2.4 gm/dl Albumin/Globulin Ratio 1.1 Test 11/01/16 08:50 11/01/16 09:51 11/01/16 11:35 Lactic Acid Level 2.8 mmol/L Ammonia 129.0 umol/L White Blood Count 4.71 K/uL Red Blood Count 3.84 M/uL Hemoglobin 11.0 g/dL Hematocrit 32.6 % Mean Corpuscular Volume 84.9 fL Mean Corpuscular Hemoglobin 28.6 pg Mean Corpuscular Hemoglobin Concent 33.7 g/dl Platelet Count 74 K/uL Mean Platelet Volume 10.0 fL Neutrophils (%) (Auto) 73.8 % Lymphocytes (%) (Auto) 14.4 % Monocytes (%) (Auto) 9.3 % Eosinophils (%) (Auto) 1.7 % Basophils (%) (Auto) 0.6 % Neutrophils # (Auto) 3.47 K/uL Lymphocytes # (Auto) 0.68 K/uL Monocytes # (Auto) 0.44 K/uL Eosinophils # (Auto) 0.08 K/uL Basophils # (Auto) 0.03 K/uL RDW Standard Deviation 55.5 fL RDW Coefficient of Variation 18.0 % Immature Granulocyte % (Auto) 0.2 % Immature Granulocyte # (Auto) 0.01 K/uL Hypersegmented Polys 1+ Giant Platelets 1+ Anisocytosis PRESENT Echinocytes 1+ Bedside Glucose 121 mg/dl Impression Patient is a 61 year old male w NAFLD cirrhosis, hx of ascites, HE, and esophageal varices, admitted for confusion, elevated ammonia 129. He is s/p TIPS placement for ascites on 10/24. TIPS patent. Medical noncompliance suspected since he was discharge on 10/28. Prior to this admission also had similar symptoms of confusion following TIPS placement but ammonia then was normal and he was started on Xifaxan. Plan - Continue current Lactulose, Xifaxan - Obtain u/s guided diagnostic paracentesis to r/o SBP given abd pain though this is less likely given small ascites volume. He can also be having the pain due to constipation or also CBD stone (noted equivocal 2cm calculus on distal CBD and had outpt EUS/ERCP arranged 12/01). - Miralax 17g BID ordered but pt had been refusing
--- NOTE | 2016-11-01 17:06 | Medical Consult ---
Consultation Note Date of Service Nov 01, 2016. Consultation Note Please see midlevel note for details. Pt admit with confusion, likely related to TIPs. SBP seems unlikely, as he has no ascites on exam. Would ask primary service to consider uls guided tap if this is a persistent concern. His lactic acidosis is likely related to lactulose therapy, cirrhosis, and TIPS -- he does not appear septic. Cont xifaxan, may use miralax to help decrease lactulose dose. His jaundice is likely related to TIPs - scheduled for outpt EUS. He has a benign abd exam to me; if he merna PO, then no need to move up EUS.
--- NOTE | 2016-11-01 18:39 | Progress Note ---
Internal Med Progress Note Date of Service: Nov 01, 2016. Provider Documentation: SUBJECTIVE: The patient was seen and examined Admitted with increasing confusion Was very confused this morning Wanted to go home Given a very small dose of Ativan OBJECTIVE: Vital Signs-as noted below Exam: General-Very anxious ,confused and wants to leave the hospital Eyes-normal ENT-normal Neck-supple Lungs-clear to ausucltate bilaterally Heart-Regular Abdomen-Mildly distended Bowel sound present Extremities-Trace edema bilaterally Neuro-AA Agitated and confused Lab data as noted below. ASSESSMENT & PLAN: Hepatic encephalopathy:Cirrhosis secondary to NAFLD Recent TIPS-likely from TIPS Possible medical noncompliance Possible UTI, Possible SBP, possible sepsis No increase in WCC and Fever,mildly elevated Lactate Resumed medication Appreciate GI input If not any better will need Paracentesis and r/o SBP Recurrent Ascites requiring recurrent admissions Not since TIPS Now presenting with Encephalopathy DM2, insulin requiring Suboptimal control as of recent HgA1c Basal insulin, ISS BG goal 140-180. Carb count coverage indicated for suboptimal blood sugar control. PT, OT eval. Chronic anemia, hemoglobin at baseline Seizure disorder well-controlled History of PE/DVT sp IVC filter placement Off anticoagulation because of bleeding risk Chronic pain on narcotics. Judicious narcotic use. DVT prophylaxis, SCD RE thrombocytopenia Full code. WILL NEED PLACEMENT TO REDUCE RECURRENT ADMISSIONS Vital Signs: Date Time Temp Pulse Resp B/P (MAP) Pulse Ox O2 Delivery O2 Flow Rate FiO2 11/01/16 16:15 Room Air 11/01/16 08:15 Room Air 11/01/16 07:23 36.5 107 18 140/76 (97) 99 Room Air 11/01/16 03:36 36.5 100 18 120/72 (88) 99 Room Air 11/01/16 00:00 99 Room Air 10/31/16 23:46 36.6 103 18 127/70 (89) 100 Room Air 10/31/16 23:06 36.4 109 18 133/69 Room Air 10/31/16 20:50 118 18 159/90 99 Room Air 10/31/16 20:30 94 10/31/16 19:21 101 14 123/69 100 Room Air Lab Results: Results Past 24 Hours Test 10/31/16 21:10 10/31/16 21:41 11/01/16 00:00 11/01/16 07:38 Range/Units Urine Color ORANGE Urine Appearance CLEAR CLEAR Urine pH 6.5 4.5-7.5 Urine Specific [place] > 1.045 1.000-1.030 Urine Protein NEG NEG Urine Glucose (UA) 1+ NEG Urine Ketones NEG NEG Urine Occult Blood NEG NEG Urine Nitrite POS NEG Urine Bilirubin NEG NEG Urine Urobilinogen NEG NEG Urine Leukocyte Esterase NEG NEG Urine WBC (Auto) 1-5 0-5 /hpf Urine RBC (Auto) 0-4 0-4 /hpf Urine Hyaline Casts (Auto) 1-5 0-5 /lpf Urine Epithelial Cells (Auto) 5-10 0-5 /lpf Urine Bacteria (Auto) NEG NEG Urine Opiates Screen POS NEG Urine Methadone, Qualitative NEG NEG Urine Barbiturates NEG NEG Urine Phencyclidine (PCP) Level NEG NEG Ur Amphetamine/Methamphetamine NEG NEG MDMA (Ecstasy) Screen NEG NEG Urine Benzodiazepines Screen NEG NEG Urine Cocaine Metabolite NEG NEG Urine Marijuana (THC) NEG NEG Lactic Acid Level 4.4 0.4-2.0 mmol/L Bedside Glucose 176 132 70-99 mg/dl Test 11/01/16 08:40 11/01/16 08:50 11/01/16 09:51 11/01/16 11:35 Range/Units Sodium Level 141 136-145 mmol/L Potassium Level 3.3 3.5-5.1 mmol/L Chloride Level 108 98-107 mmol/L Carbon Dioxide Level 21 21-32 mmol/L Anion Gap 12.0 3-11 mmol/L Blood Urea Nitrogen 5 7-18 mg/dl Creatinine 0.73 0.60-1.40 mg/dl Est Creatinine Clear Calc Drug Dose 110.9 ml/min Estimated GFR () 115.2 Estimated GFR (Non- 99.4 BUN/Creatinine Ratio 7.1 10-20 Random Glucose 125 70-99 mg/dl Calcium Level 8.0 8.5-10.1 mg/dl Total Bilirubin 6.1 0.2-1 mg/dl Aspartate Amino Transf (AST/SGOT) 58 15-37 U/L Alanine Aminotransferase (ALT/SGPT) 38 12-78 U/L Alkaline Phosphatase 169 45-117 U/L Total Protein 5.0 6.4-8.2 gm/dl Albumin 2.6 3.4-5.0 gm/dl Globulin 2.4 2.5-4.0 gm/dl Albumin/Globulin Ratio 1.1 0.9-2 Lactic Acid Level 2.8 0.4-2.0 mmol/L Ammonia 129.0 11-32 umol/L White Blood Count 4.71 4.8-10.8 K/uL Red Blood Count 3.84 4.7-6.1 M/uL Hemoglobin 11.0 14.0-18.0 g/dL Hematocrit 32.6 42-52 % Mean Corpuscular Volume 84.9 80-100 fL Mean Corpuscular Hemoglobin 28.6 25-34 pg Mean Corpuscular Hemoglobin Concent 33.7 32-36 g/dl Platelet Count 74 130-400 K/uL Mean Platelet Volume 10.0 7.4-10.4 fL Neutrophils (%) (Auto) 73.8 % Lymphocytes (%) (Auto) 14.4 % Monocytes (%) (Auto) 9.3 % Eosinophils (%) (Auto) 1.7 % Basophils (%) (Auto) 0.6 % Neutrophils # (Auto) 3.47 1.4-6.5 K/uL Lymphocytes # (Auto) 0.68 1.2-3.4 K/uL Monocytes # (Auto) 0.44 0.11-0.59 K/uL Eosinophils # (Auto) 0.08 0-0.5 K/uL Basophils # (Auto) 0.03 0-0.2 K/uL RDW Standard Deviation 55.5 36.4-46.3 fL RDW Coefficient of Variation 18.0 11.5-14.5 % Immature Granulocyte % (Auto) 0.2 % Immature Granulocyte # (Auto) 0.01 0.00-0.02 K/uL Hypersegmented Polys 1+ Giant Platelets 1+ Anisocytosis PRESENT Echinocytes 1+ Bedside Glucose 121 70-99 mg/dl Test 11/01/16 16:19 Range/Units Bedside Glucose 142 70-99 mg/dl Microbiology Results 10/31/16 Urine Culture - Preliminary, Resulted NO GROWTH - LESS THAN 1,000 COLONIES/...
[2016-11-01 19:30] VITALS: BP 116/64; PULSE 103; TEMP 36.3; O2SAT 99
[2016-11-01] MEDS: PYRIDOXINE HCL 50 MG TAB PO SCH (21:14)
[2016-11-02 00:34] VITALS: BP 133/74; PULSE 97; TEMP 36.9; O2SAT 97
[2016-11-02 07:04] LABS: HEMATOCRIT 28.5 % (42-52); MEAN CELL VOLUME 83.8 fL (80-100); MEAN CORPUSCULAR HEMOGLOBIN 28.8 pg (25-34); MEAN CORPUSCULAR HGB CONC 34.4 g/dl (32-36); WHITE BLOOD COUNT 4.29 K/uL (4.8-10.8)
[2016-11-02 07:13] LABS: INR 1.9 (0.9-1.1); PROTHROMBIN TIME (PATIENT) 20.9 SECONDS (9.0-12.0)
[2016-11-02 07:18] LABS: MEAN PLATELET VOLUME 9.7 fL (7.4-10.4); PLATELET COUNT 62 K/uL (130-400)
[2016-11-02 07:29] LABS: BASO % 0.9 %; BASO ABS # 0.04 K/uL (0-0.2); COMPLETE YES; ECHINOCYTES 1+; EOS % 5.4 %; IG% 0.2 %; LYMPH % 17.2 %; LYMPH ABS # 0.74 K/uL (1.2-3.4); MONO % 11.9 %; NEUT % 64.4 %
[2016-11-02 07:33] VITALS: BP 129/77; PULSE 100; TEMP 37.1; O2SAT 99
[2016-11-02 07:39] LABS: CALCIUM 7.8 mg/dl (8.5-10.1); CREATININE 0.79 mg/dl (0.60-1.40); MAGNESIUM 1.8 mg/dl (1.8-2.4); POTASSIUM 3.2 mmol/L (3.5-5.1)
[2016-11-02] MEDS: POLYETHYLENE (MIRALAX) 17 GM PACK PO SCH ×3 (07:44→21:24)
[2016-11-02] MEDS: LACTULOSE SYRUP 20 GM/30 ML UDC PO SCH ×4 (07:44→21:00)
[2016-11-02] MEDS: ESCITALOPRAM OXALATE 20 MG TAB PO SCH (07:45)
[2016-11-02] MEDS: LEVOTHYROXINE 75 MCG TAB PO SCH (07:45)
[2016-11-02] MEDS: RIFAXIMIN TAB 550 MG TAB PO SCH ×2 (07:45→21:21)
[2016-11-02] MEDS: LEVETIRACETAM 500 MG TAB PO SCH ×2 (07:45→21:24)
[2016-11-02] MEDS: PANTOprazole SOD 40 MG TAB PO SCH ×2 (07:45→21:23)
[2016-11-02] MEDS: FERROUS SULFATE 325 MG TAB PO SCH ×2 (07:45→21:23)
[2016-11-02] MEDS: INSULIN ASPART 100 UNITS/ML 3 ML PEN SC SCH ×4 (08:01→21:30)
[2016-11-02] MEDS: HYDROmorphone HCL 2 MG TAB PO PRN ×3 (08:04→22:08)
[2016-11-02] MEDS: INSULIN GLARGINE SOLOSTAR 100 UNITS/ML 3 ML PEN SC SCH ×2 (08:05→21:29)
[2016-11-02] MEDS: CEFEPIME IV 1,000 MG in DEXTROSE 5% 100ML 100 ML IV SCH ×2 (10:50→23:40)
[2016-11-02 11:07] LABS: PERIT FL WBC 221 /uL (0-300); PERITONEAL FLUID RBC < 3000 /uL
--- NOTE | 2016-11-02 11:32 | Gastroenterology Progress Note ---
Progress Note Date of Service: Nov 02, 2016 Subjective Pt evaluation today including: conversation w/ patient, physical exam, chart review, lab review, review of inpatient medication list Pt appears less anxious and agitated today. He is oriented to self, place and time. He is having some trouble finding correct words during our conversation. Ammonia level 64. 3 BMs yesterday Review of Systems Constitutional: No fever, No chills Respiratory: No cough, No shortness of breath Cardiac: No chest pain Abdomen: + pain, No nausea, No vomiting Medications Current Inpatient Medications Medications (Trade) Dose Ordered Sig/Ryan Route Start Time Stop Time Status Last Admin Dose Admin Ioversol (Optiray 320) 111 ml UD PRN IV 10/31/16 16:30 11/04/16 16:29 Cefepime HCl 1000 mg/Dextrose 111.3 ml @ 200 mls/hr Q12H IV 10/31/16 23:00 11/10/16 22:59 11/02/16 10:50 200 MLS/HR Cefepime HCl (Consult) 1 ea UD PRN N/A 10/31/16 22:45 11/30/16 22:44 Insulin Aspart (novoLOG ASPART) SLIDING SCALE If C... ACHS SC 11/01/16 06:30 12/01/16 06:29 Glucose (Glucose 40% Gel) 15-30 GRAMS 15 GRAMS... UD PRN PO 10/31/16 22:15 11/30/16 22:14 Glucose (Glucose Chew Tab) 4-8 Tablets 4 Tabl... UD PRN PO 10/31/16 22:15 11/30/16 22:14 Dextrose (Dextrose 50% 50ML Syringe) 25-50ML OF 50% DW IV FOR... UD PRN IV 10/31/16 22:15 11/30/16 22:14 Glucagon (Glucagon Inj) 1 mg UD PRN SQ 10/31/16 22:15 11/30/16 22:14 Escitalopram Oxalate (Lexapro Tab) 20 mg DAILY PO 11/01/16 09:00 12/01/16 08:59 11/02/16 07:45 20 MG Hydromorphone HCl (Dilaudid Tab) 4 mg Q6H PRN PO 10/31/16 22:15 11/14/16 22:14 11/02/16 08:04 4 MG Insulin Glargine (Lantus Solostar Pen) 10 units BID SC 11/01/16 09:00 12/01/16 08:59 11/02/16 08:05 10 UNITS Lactulose (Chronulac Syrup) 20 gm QID PO 11/01/16 09:00 12/01/16 08:59 11/02/16 07:44 20 GM Levetiracetam (Keppra Tab) 500 mg BID PO 11/01/16 09:00 12/01/16 08:59 11/02/16 07:45 500 MG Levothyroxine Sodium (Synthroid Tab) 75 mcg DAILYBB PO 11/01/16 06:30 12/01/16 06:29 11/02/16 07:45 75 MCG Pantoprazole Sodium (Protonix Tab) 40 mg BID PO 11/01/16 09:00 12/01/16 08:59 11/02/16 07:45 40 MG Rifaximin (Xifaxan Tab) 550 mg BID PO 11/01/16 09:00 12/01/16 08:59 11/02/16 07:45 550 MG Ferrous Sulfate (Feosol Tab) 325 mg BID PO 11/01/16 09:00 12/01/16 08:59 11/02/16 07:45 325 MG Polyethylene (Miralax Powder Packet) 17 gm BID PO 11/01/16 09:00 12/01/16 08:59 11/02/16 07:44 17 GM Pyridoxine HCl (Vitamin B-6 Tab) 25 mg HS PO 11/01/16 21:00 12/01/16 20:59 11/01/16 21:14 25 MG Ondansetron HCl (Zofran Inj) 4 mg Q6H PRN IV 10/31/16 22:15 11/30/16 22:14 Objective Vital Signs Date Time Temp Pulse Resp B/P (MAP) Pulse Ox O2 Delivery O2 Flow Rate FiO2 11/02/16 08:15 Room Air 11/02/16 07:33 37.1 100 16 129/77 (94) 99 Room Air 11/02/16 00:34 36.9 97 18 133/74 (93) 97 Room Air 11/02/16 00:00 Room Air 11/01/16 20:00 Room Air 11/01/16 19:30 36.3 103 20 116/64 (81) 99 Room Air 11/01/16 16:15 Room Air Physical Exam General Appearance: WD/WN, no apparent distress Eyes: EOMI Neck: supple, no JVD, trachea midline Respiratory/Chest: normal breath sounds, no respiratory distress, no accessory muscle use Cardiovascular: regular rate, rhythm, no gallop, no murmur Abdomen: normal bowel sounds, soft, + tenderness (diffuse) Extremities: normal inspection, no pedal edema, no calf tenderness Neurologic/Psych: alert, normal mood/affect, + pertinent finding (oriented to self, place, time but having trouble finding words at times) Skin: warm/dry, no rash, + jaundice Laboratory Results Last 24 Hours Test 11/01/16 11:35 11/01/16 16:19 11/01/16 20:09 11/02/16 00:00 Bedside Glucose 121 mg/dl 142 mg/dl 138 mg/dl Peritoneal Fluid Color YELLOW Peritoneal Fluid Appearance CLOUDY Peritoneal Fluid WBC 221 /uL Peritoneal Fluid RBC < 3000 /uL Peritoneal Fld Mononuclear WBCs (%) 93.8 % Peritoneal Fld Polynuclear WBCs (%) 6.2 % Peritoneal Fluid Total Protein 1.7 g/dl Peritoneal Fluid Albumin 1.0 g/dl Test 11/02/16 06:49 11/02/16 06:56 11/02/16 07:22 White Blood Count 4.29 K/uL Red Blood Count 3.40 M/uL Hemoglobin 9.8 g/dL Hematocrit 28.5 % Mean Corpuscular Volume 83.8 fL Mean Corpuscular Hemoglobin 28.8 pg Mean Corpuscular Hemoglobin Concent 34.4 g/dl Platelet Count 62 K/uL Mean Platelet Volume 9.7 fL Neutrophils (%) (Auto) 64.4 % Lymphocytes (%) (Auto) 17.2 % Monocytes (%) (Auto) 11.9 % Eosinophils (%) (Auto) 5.4 % Basophils (%) (Auto) 0.9 % Neutrophils # (Auto) 2.76 K/uL Lymphocytes # (Auto) 0.74 K/uL Monocytes # (Auto) 0.51 K/uL Eosinophils # (Auto) 0.23 K/uL Basophils # (Auto) 0.04 K/uL RDW Standard Deviation 55.4 fL RDW Coefficient of Variation 18.0 % Immature Granulocyte % (Auto) 0.2 % Immature Granulocyte # (Auto) 0.01 K/uL Echinocytes 1+ Prothrombin Time 20.9 SECONDS Prothromb Time International Ratio 1.9 Sodium Level 141 mmol/L Potassium Level 3.2 mmol/L Chloride Level 109 mmol/L Carbon Dioxide Level 22 mmol/L Anion Gap 10.0 mmol/L Blood Urea Nitrogen 5 mg/dl Creatinine 0.79 mg/dl Est Creatinine Clear Calc Drug Dose 100.9 ml/min Estimated GFR () 111.5 Estimated GFR (Non- 96.2 BUN/Creatinine Ratio 6.0 Random Glucose 112 mg/dl Calcium Level 7.8 mg/dl Magnesium Level 1.8 mg/dl Ammonia 64.0 umol/L Bedside Glucose 105 mg/dl Assessment and Plan Patient is a 61 year old male w NAFLD cirrhosis, hx of ascites, HE, and esophageal varices, admitted for confusion, elevated ammonia 129. He is s/p TIPS placement for ascites on 10/24. TIPS patent. Medical noncompliance suspected since he was discharge on 10/28. Prior to this admission also had similar symptoms of confusion following TIPS placement but ammonia then was normal and he was started on Xifaxan. He had 3 BMs last night, ammonia level down to 64, appears less agitated and more oriented today. Discussed safety concerns for him living at home. He said currently sis in law and nephew living w him but not sure until when. Nephew gives him his meds. Pt doesn't seem to have insight on severity of his medical condition, stating he'll be fine even if alone, doesn't seem realize that he can have worsening decompensation of liver disease and recurrent hepatic encephalopathy. In the past placement in long-term had been discussed with him but he refused. Urine and blood culture negative. Plans - Continue current Lactulose, Xifaxan. Titrate lactulose for goal 3-5BMs daily. - Obtain u/s guided diagnostic paracentesis to r/o SBP given abd pain though this is less likely given small ascites volume. He can also be having the pain due to constipation or also CBD stone (noted equivocal 2cm calculus on distal CBD and had outpt EUS/ERCP arranged 12/01). - Miralax 17g BID. - Consider case consultant visit again to discuss possible placement after DC Attg addendum: I interviewed and examined pt, reviewed chart and labs. He is less confused. He received narcotics this morning. Tap does not show evidence of SBP. Tap was done after 2 days of abx -- regardless, I doubt SBP. OK to d/c abx. Cont laxatives as above. Please try to avoid narcotics.
--- NOTE | 2016-11-02 13:07 | DIAGNOSTIC IMAGING REPORT ---
PARACENTESIS ABDOMEN W/IMAGING CLINICAL HISTORY: 61 years-old Male with abd pain; r/o SBP; small ascites, has TIPS. Acute abdominal pain. COMPARISON: CT abdomen and pelvis 10/31/2016 PROCEDURE: The procedure was explained to the patient in the care including the benefits and possible risks/complications. The patient gave verbal understanding and written consent was obtained. A time-out was performed prior to the start of the procedure. The patient was placed on the ultrasound table in the supine position. Using ultrasound guidance, an appropriate procedure site in the right lower abdomen was marked. This area was then prepped and draped in the usual sterile fashion. Local anesthesia was achieved within 1% lidocaine. An 8-Canadian centesis catheter was then attempted, however was unsuccessful. A 22-gauge 2.5 cm needle was then inserted into the right lower abdomen and approximately 60 mL of clear, yellowish fluid was then removed and sent to the lab for analysis. The needle was removed and external pressure was held to achieve hemostasis. A sterile dressing was applied to the procedure site. The patient tolerated the procedure well without immediate complications. IMPRESSION: Successful ultrasound-guided paracentesis with removal of 60 mL ascitic fluid. The above report was generated using voice recognition software. It may contain grammatical, syntax or spelling errors. Electronically signed by: Elia Ramesh M.D. 11/02/2016 1:06 PM Dictated Date/Time: 11/02/2016 12:59 PM
[2016-11-02 14:55] VITALS: BP 118/60; PULSE 98; TEMP 36.7; O2SAT 99
[2016-11-02 16:00] VITALS: O2SAT 99
--- NOTE | 2016-11-02 19:25 | Progress Note ---
Internal Med Progress Note Date of Service: Nov 02, 2016. Provider Documentation: SUBJECTIVE: says he is doing fine except he is having hard time drinking lactulose requests to be discharged home and was tearful denies chest pain or sob no nausea afebrile OBJECTIVE: Vital Signs-as noted below Exam: General-alert and awake. not in distress ENT-normal hearing Neck-no neck masses supple Lungs-cta b/l no wheezing or crackles Heart-s1 and s2 heard regular no murmurs Abdomen-soft bowel sounds present non tender no distension Extremities-no erythema pedal edema present Neuro-alert and awake moves extremities Lab data as noted below. ASSESSMENT & PLAN: Hepatic encephalopathy:Cirrhosis secondary to NAFLD Recent TIPS-likely from TIPS Possible medical noncompliance cx no growth so far s/p paracentesis and seems unremarkable will d/c abx on lactulose to titrate for 3-4 bowel movements/day on rifaximin Gi on board and appreciate inputs seems stable now Recurrent Ascites requiring recurrent admissions Not since TIPS DM2, insulin requiring Suboptimal control as of recent HgA1c on Lantus and iss adjusted ISS will monitor Chronic anemia, hemoglobin at baseline Seizure disorder well-controlled History of PE/DVT sp IVC filter placement Off anticoagulation because of bleeding risk Chronic pain on narcotics. Judicious narcotic use. DVT prophylaxis, SCD RE thrombocytopenia Full code. DISPOSITION pt/ot patient want to go home social service for d/c planning Vital Signs: Date Time Temp Pulse Resp B/P (MAP) Pulse Ox O2 Delivery O2 Flow Rate FiO2 11/02/16 16:00 99 Room Air 11/02/16 14:55 36.7 98 18 118/60 (79) 99 Room Air 11/02/16 08:15 Room Air 11/02/16 07:33 37.1 100 16 129/77 (94) 99 Room Air 11/02/16 00:34 36.9 97 18 133/74 (93) 97 Room Air 11/02/16 00:00 Room Air 11/01/16 20:00 Room Air 11/01/16 19:30 36.3 103 20 116/64 (81) 99 Room Air Lab Results: Results Past 24 Hours Test 11/01/16 20:09 11/02/16 00:00 11/02/16 06:49 11/02/16 06:56 Range/Units Bedside Glucose 138 70-99 mg/dl Peritoneal Fluid Color YELLOW Peritoneal Fluid Appearance CLOUDY Peritoneal Fluid WBC 221 0-300 /uL Peritoneal Fluid RBC < 3000 /uL Peritoneal Fld Mononuclear WBCs (%) 93.8 % Peritoneal Fld Polynuclear WBCs (%) 6.2 % Peritoneal Fluid Total Protein 1.7 g/dl Peritoneal Fluid Albumin 1.0 g/dl White Blood Count 4.29 4.8-10.8 K/uL Red Blood Count 3.40 4.7-6.1 M/uL Hemoglobin 9.8 14.0-18.0 g/dL Hematocrit 28.5 42-52 % Mean Corpuscular Volume 83.8 80-100 fL Mean Corpuscular Hemoglobin 28.8 25-34 pg Mean Corpuscular Hemoglobin Concent 34.4 32-36 g/dl Platelet Count 62 130-400 K/uL Mean Platelet Volume 9.7 7.4-10.4 fL Neutrophils (%) (Auto) 64.4 % Lymphocytes (%) (Auto) 17.2 % Monocytes (%) (Auto) 11.9 % Eosinophils (%) (Auto) 5.4 % Basophils (%) (Auto) 0.9 % Neutrophils # (Auto) 2.76 1.4-6.5 K/uL Lymphocytes # (Auto) 0.74 1.2-3.4 K/uL Monocytes # (Auto) 0.51 0.11-0.59 K/uL Eosinophils # (Auto) 0.23 0-0.5 K/uL Basophils # (Auto) 0.04 0-0.2 K/uL RDW Standard Deviation 55.4 36.4-46.3 fL RDW Coefficient of Variation 18.0 11.5-14.5 % Immature Granulocyte % (Auto) 0.2 % Immature Granulocyte # (Auto) 0.01 0.00-0.02 K/uL Echinocytes 1+ Prothrombin Time 20.9 9.0-12.0 SECONDS Prothromb Time International Ratio 1.9 0.9-1.1 Sodium Level 141 136-145 mmol/L Potassium Level 3.2 3.5-5.1 mmol/L Chloride Level 109 98-107 mmol/L Carbon Dioxide Level 22 21-32 mmol/L Anion Gap 10.0 3-11 mmol/L Blood Urea Nitrogen 5 7-18 mg/dl Creatinine 0.79 0.60-1.40 mg/dl Est Creatinine Clear Calc Drug Dose 100.9 ml/min Estimated GFR () 111.5 Estimated GFR (Non- 96.2 BUN/Creatinine Ratio 6.0 10-20 Random Glucose 112 70-99 mg/dl Calcium Level 7.8 8.5-10.1 mg/dl Magnesium Level 1.8 1.8-2.4 mg/dl Ammonia 64.0 11-32 umol/L Test 11/02/16 07:22 11/02/16 11:27 11/02/16 16:14 Range/Units Bedside Glucose 105 188 217 70-99 mg/dl Microbiology Results 11/02/16 Acid Fast Stain, Received Pending 11/02/16 Mycobacterial Culture, Received Pending 11/02/16 Gram Stain - Final, Resulted 11/02/16 Bacterial Culture, Resulted Pending
[2016-11-02] MEDS: PYRIDOXINE HCL 50 MG TAB PO SCH (21:24)
[2016-11-02] MEDS ORDERED: LORAZEPAM 0.5 MG TAB PO ONE (23:30)
[2016-11-02 23:44] VITALS: BP 115/62; PULSE 108; TEMP 36.7; O2SAT 99
[2016-11-03 03:33] LABS: COD UR NEGATIVE NG/ML (CUTOFF=50); HYDROCOD UR NEGATIVE NG/ML (CUTOFF=50); HYDROMOR UR 12600 NG/ML (CUTOFF=50); MORPHINE UR NEGATIVE NG/ML (CUTOFF=50); NORHYDROCODONE CONF UR NEGATIVE NG/ML (CUTOFF=50); OXYMORPH UR NEGATIVE NG/ML (CUTOFF=50)
[2016-11-03] MEDS: HYDROmorphone HCL 2 MG TAB PO PRN ×3 (04:52→19:48)
[2016-11-03] MEDS: LEVOTHYROXINE 75 MCG TAB PO SCH (04:52)
[2016-11-03 07:07] VITALS: BP 116/63; PULSE 94; TEMP 36.9; O2SAT 98
[2016-11-03 07:42] VITALS: BP 136/70; PULSE 92; TEMP 36.7; O2SAT 98
[2016-11-03 08:21] VITALS: O2SAT 98
[2016-11-03] MEDS: LEVETIRACETAM 500 MG TAB PO SCH ×2 (08:35→19:50)
[2016-11-03] MEDS: RIFAXIMIN TAB 550 MG TAB PO SCH ×2 (08:35→19:51)
[2016-11-03] MEDS: LACTULOSE SYRUP 20 GM/30 ML UDC PO SCH ×4 (08:35→19:49)
[2016-11-03] MEDS: PANTOprazole SOD 40 MG TAB PO SCH ×2 (08:35→19:49)
[2016-11-03] MEDS: ESCITALOPRAM OXALATE 20 MG TAB PO SCH (08:35)
[2016-11-03] MEDS: INSULIN GLARGINE SOLOSTAR 100 UNITS/ML 3 ML PEN SC SCH ×2 (08:35→20:08)
[2016-11-03] MEDS: POLYETHYLENE (MIRALAX) 17 GM PACK PO SCH ×2 (08:35→19:51)
[2016-11-03] MEDS: FERROUS SULFATE 325 MG TAB PO SCH ×2 (08:35→19:50)
[2016-11-03] MEDS: INSULIN ASPART 100 UNITS/ML 3 ML PEN SC SCH ×4 (08:35→20:08)
[2016-11-03 09:09] LABS: ALB/GLOB RATIO 0.9 (0.9-2); BUN/CREATININE RATIO 5.1 (10-20); CALCIUM 8.6 mg/dl (8.5-10.1); CREATININE 0.79 mg/dl (0.60-1.40); MAGNESIUM 1.7 mg/dl (1.8-2.4)
[2016-11-03 09:10] LABS: POTASSIUM 3.7 mmol/L (3.5-5.1)
--- NOTE | 2016-11-03 09:53 | Psychiatric Consultation ---
Consultation Date of Consultation Nov 03, 2016. Identifying Data 61 yo male from [place], admited to medical floor 10/31/16 for hepatic encephalopathy. Consult is by Dr. Grossman for tearfulness and confusion. Chief Complaint "I miss my horses". History of Present Illness Patient reports his nephew lives with him. He is feeling less overwhelmed today as he's made progress with lactulose. He denies depression. He states he didn't sleep the best last hs but denies vegetative symptoms prior to admission. His initial ammonia level was 129, trending down to 64 today. He did not seem to be aware that he was taking Lexapro or that it was an antidepressant. He denies suicidal ideation current or at any time in the past. Past Psychiatric History Current OP Treatment: no current treatment Prior OP Treatment: no prior treatment Prior Psych Hospitalizations: none Access to a Gun: Yes ([place]) Suicide Attempts: No Allergies Allergies: Coded Allergies: Acetaminophen (Verified Allergy, Severe, ESLD (BETANCOURT). on Liver transplant list. Cannot have APAP., 10/31/16) Morphine (Verified Allergy, Severe, RED HIVE WENT UP ARM FROM IV SITE, ) NSAIDs (Verified Allergy, Severe, DUE TO LIVER DISEAS, 10/31/16) Penicillins (Verified Allergy, Severe, JOINT SWELLING AND FEVER, 10/31/16) Fentanyl (Verified Allergy, Intermediate, rash, 10/31/16) Levofloxacin (Verified Allergy, Intermediate, RASH, 10/31/16) pt developed erythema at site of IV injection with itching Vancomycin (Verified Allergy, Mild, HIVES, 10/31/16) HIVES Tramadol (Verified Allergy, Unknown, NOT TO TAKE WITH KEPPRA DUE TO SEIZURE RISK, 10/31/16) Home Medications Scheduled Escitalopram Oxalate (Lexapro), 20 MG PO DAILY Ferrous Sulfate ( Ferrous Sulfate), 325 MG PO BID Furosemide (Lasix), 40 MG PO DAILY Insulin Aspart (Novolog), 14 UNITS SQ TIDM Insulin Glargine (Lantus), 38 UNITS SC BID Lactulose (Chronulac), 20 ML PO QID Levetiractam (Levetiracetam), 500 MG PO BID Levothyroxine Sodium (Synthroid), 75 MCG PO QAM Magnesium Oxide (Mag-Ox), 400 MG PO BID Melatonin (Kp Melatonin), 2 MG PO HS Pantoprazole (Protonix), 40 MG PO BID Polyethylene Glycol 3350 (Miralax), 17 GM PO BID Pyridoxine Hcl (Vitamin B-6), 25 MG PO HS Rifaximin (Xifaxan), 550 MG PO BID Spironolactone (Aldactone), 100 MG PO BID Scheduled PRN Diphenhydramine Hcl (Benadryl), 25 MG PO BID PRN for Itching Hydromorphone Hcl (Dilaudid), 4 MG PO Q6 PRN for Pain Ondasetron Odt (Zofran Odt), 1-2 MG SL Q8 PRN for Nausea or Vomiting Triamcinolone Acet (Aristocort 0.1%), 1 APPL EXT BID PRN for dermatitis Family History FH: CAD (coronary artery disease) FATHER FH: breast cancer MOTHER History of Suicide: No Psychiatric History: No Alcohol Use Alcohol Use In Past 12 Months: No Smoking Use Smoking Status: Never Smoker Substance History denied Personal History Education: other ([employer]) Work History: now on disability Children: denied Psychological Trauma History: Denies Hx Traumatic Event Review of Systems Psych: denies symptoms other than stated above Constitutional: fatigue Cardiovascular: denied GI: denied currently--lactulose causes D Neurologic: confusion is decreasing Remainder of 10 body systems also reviewed and denied other than noted above. Examination Vital Signs Vital Signs Past 12 Hours Date Time Temp Pulse Resp B/P (MAP) Pulse Ox O2 Delivery O2 Flow Rate FiO2 11/03/16 08:21 98 Room Air 11/03/16 08:00 Room Air 11/03/16 07:42 36.7 92 12 136/70 (92) 98 Room Air 11/03/16 07:07 36.9 94 20 116/63 (80) 98 Room Air 11/03/16 00:00 Room Air 11/02/16 23:44 36.7 108 20 115/62 (79) 99 Room Air Laboratory Results Last 24 Hours Test 11/02/16 11:27 11/02/16 16:14 11/02/16 20:25 11/03/16 07:23 Bedside Glucose 188 mg/dl 217 mg/dl 299 mg/dl 125 mg/dl Test 11/03/16 08:14 11/03/16 09:23 Sodium Level 138 mmol/L Potassium Level 3.7 mmol/L Chloride Level 106 mmol/L Carbon Dioxide Level 21 mmol/L Anion Gap 11.0 mmol/L Blood Urea Nitrogen 4 mg/dl Creatinine 0.79 mg/dl Est Creatinine Clear Calc Drug Dose 100.9 ml/min Estimated GFR () 111.5 Estimated GFR (Non- 96.2 BUN/Creatinine Ratio 5.1 Random Glucose 125 mg/dl Calcium Level 8.6 mg/dl Magnesium Level 1.7 mg/dl Total Bilirubin 8.1 mg/dl Aspartate Amino Transf (AST/SGOT) 96 U/L Alanine Aminotransferase (ALT/SGPT) 50 U/L Alkaline Phosphatase 202 U/L Ammonia 30.0 umol/L Total Protein 5.6 gm/dl Albumin 2.7 gm/dl Globulin 2.9 gm/dl Albumin/Globulin Ratio 0.9 Mental Examination During interview pt is: alert and oriented, cooperative Appearance: appropriately groomed Eye contact is: fair Motor behavior is: no abnormal motor movements Speech: normal in rate, rhythm & volume Affect: blunted Mood is: other ("It's all good") Thought process: concrete (with some word finding difficulties consistent with encephalopathy) Thought content: reality based without delusions Suicidal thought are: denied Homicidal thoughts are: denied Hallucinations: denies auditory, denies visual Cognition: language grossly intact, other (attention decreased) Intelligence estimated to be: average Insight: fair Judgement: fair Impression / Recommendations Impression 61 yo male with no prior psych history presents with confusion/tearfulness in the context of hyperammonemia. Recommendations the patient's symptoms are currently resolving and he does not meet criteria for a major depressive disorder he is appropriate to return to previous prescriber for SSRI and declines need for therapy thyroid appears appropriately corrected based on 07/22 labs his platelets are trending down, Lexapro could be decreased to 10 mg and/or held if bleeding concerns still a bit encephalopathic but clearly understands his medical condition and reaffirms that he will remain hospitalized until medically stable for discharge
[2016-11-03] MEDS ORDERED: ERTAPENEM IV 1 GM in SODIUM CHLOR 0.9% AD-VAN 50ML 50 ML IV SCH (10:00)
--- NOTE | 2016-11-03 10:18 | Progress Note ---
Progress Note Date of Service Nov 03, 2016. Progress Note ID Consult Dictated #[id number] A/P: 1. + blood culture - gpr / sets -Suspect contaminant, would not add any abx at this time -If fluid culture negative, would follow off of abx thank you
--- NOTE | 2016-11-03 11:28 | Gastroenterology Progress Note ---
Progress Note Date of Service: Nov 03, 2016 Subjective Pt evaluation today including: conversation w/ patient, physical exam, chart review, lab review, review of inpatient medication list Pt sitting up in chair, still somewhat confused, trouble finding words. He became tearful during our conversation wanting to get discharged. Noted no SBP from ascites fluid cell ct though he had been on Cefepime IV already when sample taken. 1/2 blood cx grew gram positive bacilli, repeat blood cx pending. Review of Systems Constitutional: No fever Abdomen: No pain, No nausea, No GI bleeding Endo: + fatigue Medications Current Inpatient Medications Medications (Trade) Dose Ordered Sig/Ryan Route Start Time Stop Time Status Last Admin Dose Admin Ioversol (Optiray 320) 111 ml UD PRN IV 10/31/16 16:30 11/04/16 16:29 Insulin Aspart (novoLOG ASPART) SLIDING SCALE If C... ACHS SC 11/01/16 06:30 12/01/16 06:29 11/03/16 08:35 6 UNITS Glucose (Glucose 40% Gel) 15-30 GRAMS 15 GRAMS... UD PRN PO 10/31/16 22:15 11/30/16 22:14 Glucose (Glucose Chew Tab) 4-8 Tablets 4 Tabl... UD PRN PO 10/31/16 22:15 11/30/16 22:14 Dextrose (Dextrose 50% 50ML Syringe) 25-50ML OF 50% DW IV FOR... UD PRN IV 10/31/16 22:15 11/30/16 22:14 Glucagon (Glucagon Inj) 1 mg UD PRN SQ 10/31/16 22:15 11/30/16 22:14 Escitalopram Oxalate (Lexapro Tab) 20 mg DAILY PO 11/01/16 09:00 12/01/16 08:59 11/03/16 08:35 20 MG Hydromorphone HCl (Dilaudid Tab) 4 mg Q6H PRN PO 10/31/16 22:15 11/14/16 22:14 11/03/16 10:31 4 MG Insulin Glargine (Lantus Solostar Pen) 10 units BID SC 11/01/16 09:00 12/01/16 08:59 11/03/16 08:35 10 UNITS Lactulose (Chronulac Syrup) 20 gm QID PO 11/01/16 09:00 12/01/16 08:59 11/03/16 08:35 20 GM Levetiracetam (Keppra Tab) 500 mg BID PO 11/01/16 09:00 12/01/16 08:59 11/03/16 08:35 500 MG Levothyroxine Sodium (Synthroid Tab) 75 mcg DAILYBB PO 11/01/16 06:30 12/01/16 06:29 11/03/16 04:52 75 MCG Pantoprazole Sodium (Protonix Tab) 40 mg BID PO 11/01/16 09:00 12/01/16 08:59 11/03/16 08:35 40 MG Rifaximin (Xifaxan Tab) 550 mg BID PO 11/01/16 09:00 12/01/16 08:59 11/03/16 08:35 550 MG Ferrous Sulfate (Feosol Tab) 325 mg BID PO 11/01/16 09:00 12/01/16 08:59 11/03/16 08:35 325 MG Polyethylene (Miralax Powder Packet) 17 gm BID PO 11/01/16 09:00 12/01/16 08:59 11/03/16 08:35 17 GM Pyridoxine HCl (Vitamin B-6 Tab) 25 mg HS PO 11/01/16 21:00 12/01/16 20:59 11/02/16 21:24 25 MG Ondansetron HCl (Zofran Inj) 4 mg Q6H PRN IV 10/31/16 22:15 11/30/16 22:14 Ertapenem 1 gm/ Sodium Chloride 50 ml @ 120 mls/hr Q24H IV 11/03/16 10:00 11/17/16 09:59 11/03/16 10:38 120 MLS/HR Objective Vital Signs Date Time Temp Pulse Resp B/P (MAP) Pulse Ox O2 Delivery O2 Flow Rate FiO2 11/03/16 08:21 98 Room Air 11/03/16 08:00 Room Air 11/03/16 07:42 36.7 92 12 136/70 (92) 98 Room Air 11/03/16 07:07 36.9 94 20 116/63 (80) 98 Room Air 11/03/16 00:00 Room Air 11/02/16 23:44 36.7 108 20 115/62 (79) 99 Room Air 11/02/16 16:00 99 Room Air 11/02/16 14:55 36.7 98 18 118/60 (79) 99 Room Air Physical Exam General Appearance: WD/WN, no apparent distress Eyes: normal inspection, PERRL, EOMI Neck: supple, no JVD, trachea midline Respiratory/Chest: no respiratory distress, no accessory muscle use Abdomen: non tender, soft Extremities: normal inspection, no pedal edema, no calf tenderness Neurologic/Psych: + depressed affect, + disoriented (oriented to self and place , but trouble finding words ) Skin: no rash, + jaundice Laboratory Results Last 24 Hours Test 11/02/16 11:27 11/02/16 16:14 11/02/16 20:25 11/03/16 07:23 Bedside Glucose 188 mg/dl 217 mg/dl 299 mg/dl 125 mg/dl Test 11/03/16 08:14 11/03/16 09:23 Sodium Level 138 mmol/L Potassium Level 3.7 mmol/L Chloride Level 106 mmol/L Carbon Dioxide Level 21 mmol/L Anion Gap 11.0 mmol/L Blood Urea Nitrogen 4 mg/dl Creatinine 0.79 mg/dl Est Creatinine Clear Calc Drug Dose 100.9 ml/min Estimated GFR () 111.5 Estimated GFR (Non- 96.2 BUN/Creatinine Ratio 5.1 Random Glucose 125 mg/dl Calcium Level 8.6 mg/dl Magnesium Level 1.7 mg/dl Total Bilirubin 8.1 mg/dl Aspartate Amino Transf (AST/SGOT) 96 U/L Alanine Aminotransferase (ALT/SGPT) 50 U/L Alkaline Phosphatase 202 U/L Ammonia 30.0 umol/L Total Protein 5.6 gm/dl Albumin 2.7 gm/dl Globulin 2.9 gm/dl Albumin/Globulin Ratio 0.9 Assessment and Plan Patient is a 61 year old male w NAFLD cirrhosis, hx of ascites, HE, and esophageal varices, admitted for confusion, elevated ammonia 129. He is s/p TIPS placement for ascites on 10/24. TIPS patent. Medical noncompliance suspected since he was discharge on 10/28. Prior to this admission also had similar symptoms of confusion following TIPS placement but ammonia then was normal and he was started on Xifaxan. He had 3 BMs last night, ammonia level down to 64, appears less agitated and more oriented today. Discussed safety concerns for him living at home. He said currently sis in law and nephew living w him but not sure until when. Nephew gives him his meds. I managed to speak w his POA (sister Edith Rajput). Edith reports that no one is living w pt. His sis in law had left, and "nephew" is actually a family friend but also out on jobs. Only person managing his medications and checking on him is home health nurse coming 3x a week. I again discussed safety issues w Edith. She is aware that pt is resistant to be placed in longterm, and he had mentioned in that he'd rather "not live" than be in a longterm. Urine cx, ascites fl cell ct negative for infections. Initial blood cx 1/2 set grew gram positive bacilli, repeat cx pending. Plans - Continue current Lactulose, Xifaxan. Titrate lactulose for goal 3-5BMs daily. For example if >5 BMs daily, can cut Lactulose from 20mg QID to TID. - Outpt EUS/ERCP arranged 12/01 for eval of ? CBD calculus seen on MRCP during his last admission. - Miralax 17g BID. - See above for discharge planning issues regarding home vs longterm placement. - No new GI plans, will sign off; call if new questions/concerns. Attg addendum. I interviewed and examined pt, reviewed chart and labs. Pt is improved - he is more lucid, but still falls asleep while talking to me. Of note, he received dilaudid earlier today. Please d/c narcotics. Cont laxative regimen. I discussed placement with him as well - he continues to insist that he will live alone.
[2016-11-03 11:42] LABS: HEMATOCRIT 34.5 % (42-52); MEAN CELL VOLUME 84.6 fL (80-100); MEAN CORPUSCULAR HEMOGLOBIN 29.2 pg (25-34); MEAN CORPUSCULAR HGB CONC 34.5 g/dl (32-36); RED BLOOD COUNT 4.08 M/uL (4.7-6.1); WHITE BLOOD COUNT 4.75 K/uL (4.8-10.8)
[2016-11-03 11:44] LABS: MEAN PLATELET VOLUME 9.5 fL (7.4-10.4); PLATELET COUNT 62 K/uL (130-400)
[2016-11-03 12:02] LABS: ANISOCYTOSIS PRESENT; BASO % 0.8 %; BASO ABS # 0.04 K/uL (0-0.2); COMPLETE YES; ECHINOCYTES 1+; EOS % 4.8 %; HYPERSEGMENTED POLYS 1+; LYMPH % 13.3 %; LYMPH ABS # 0.63 K/uL (1.2-3.4); MONO % 12.4 %; NEUT % 68.7 %
--- NOTE | 2016-11-03 12:18 | INFECT. DISEASE CONSULTATION ---
DATE OF CONSULTATION: 11/03/2016 DATE OF CONSULTATION: 11/03/2016 REQUESTING PHYSICIAN: Dr. Hanks. HISTORY OF PRESENT ILLNESS: This is a 61-year-old gentleman who was admitted with encephalopathy. He does have a history of BETANCOURT cirrhosis with esophageal varices. His ammonia was found to be 140 at the time of admission. This has improved to 30. He has been afebrile since admission. His total bilirubin was 6.2 on arrival to the hospital, which is increased to 8.1. His LFTs are also increasing with an AST at 96. He did have blood cultures as per his initial workup for change in mental status and 1 of the 2 sets is growing a gram positive luis. Repeat blood cultures are pending. He did undergo a paracentesis and he had 221 white blood cells on aspirate. Fluid culture is pending, but Gram stain is negative. He was placed on ertapenem empirically and he remains on this. He denies any fevers or chills. On my examination, he is awake and alert and states overall he is feeling significantly better. He is asking to go home. He denies any chest pain, shortness of breath or cough. He has some abdominal pain but states this has improved since admission to the hospital. All remaining review of systems are reviewed and are unremarkable. PAST MEDICAL HISTORY: Significant for anxiety, depression, type 2 diabetes, end-stage liver disease, esophageal varices, hyperlipidemia, hypothyroidism, portal hypertension, history of PE, seizure disorder and superior mesenteric vein clot. PAST SURGICAL HISTORY: Significant for EGD, knee surgery, cervical spine fusion, IVC filter, lumber spine fusion, tonsillectomy and adenoidectomy. FAMILY HISTORY: Noncontributory. SOCIAL HISTORY: Negative for tobacco use, alcohol use or drug use. ALLERGIES: HE HAS MULTIPLE ALLERGIES INCLUDING ACETAMINOPHEN, MORPHINE, NSAIDs, PENICILLIN, FENTANYL, LEVAQUIN, VANCOMYCIN, AND TRAMADOL. MEDICATIONS: Include ertapenem, vitamin B6, Lexapro, Lantus, lactulose, Keppra, Protonix, rifaximin, iron, MiraLax, insulin, Synthroid, Dilaudid and Zofran. PHYSICAL EXAMINATION: VITAL SIGNS: He is afebrile, pulse 92, respiratory rate is 12, blood pressure 136/70, oxygen saturation is 98-99% on room air. GENERAL: He is awake, alert and oriented x3. He is in no acute distress. HEAD, EYES, EARS, NOSE, AND THROAT: Mucous membranes are moist. Extraocular muscles are intact. Sclerae are icteric. HEART: Regular. LUNGS: Clear bilaterally. ABDOMEN: Minimally distended but nontender. There is no rebound, rigidity or guarding. EXTREMITIES: There is no lower extremity edema. SKIN: Without rash. LABORATORY STUDIES: CBC yesterday reveals a white blood cell count of 4.2, hemoglobin 9.8 and platelets are 62. Chemistry panel today reveals a sodium of 138, potassium 3.7, chloride 106, bicarb 21, BUN 4, creatinine 0.7, glucose is 125, AST 96, ALT is 50. Ammonia level is down to 30. A urinalysis on the was unremarkable. Urine drug screen was positive for opiates. On 10/31/2016 blood cultures 1 out of 2 sets is growing a gram positive luis. A urine culture was contaminated. Fluid culture is negative to date. AFB smear was negative. Repeat blood cultures are pending. He did have a CT of the abdomen and pelvis in the ER which does show patent tips and cirrhosis of the liver. Chest x-ray done in the ER showed atelectasis. ASSESSMENT AND PLAN: Positive blood culture with gram positive luis. This likely represents a contaminated specimen from skin nicki. I do not see any evidence of peritonitis based on his fluid results and negative culture. Certainly if his fluid cultures are negative, he could be followed off of antibiotics. I would not add any additional antibiotics as I suspect the gram positive luis in his blood culture to be a contaminant as he is afebrile without leukocytosis and hemodynamically stable. Thank you for this consultation.
--- NOTE | 2016-11-03 14:45 | Progress Note ---
Internal Med Progress Note Date of Service: Nov 03, 2016. Provider Documentation: SUBJECTIVE: was tearful and want to go home but agreed to stay until repeat cx are back afebrile no sob or abdominal pain OBJECTIVE: Vital Signs-as noted below Exam: General-alert and awake. not in distress ENT-normal hearing Neck-no neck masses supple Lungs-cta b/l no wheezing or crackles Heart-s1 and s2 heard regular no murmurs Abdomen-soft bowel sounds present non tender no distension Extremities-no erythema pedal edema present Neuro-alert and awake moves extremities Lab data as noted below. ASSESSMENT & PLAN: Hepatic encephalopathy:Cirrhosis secondary to NAFLD Recent TIPS-likely from TIPS Possible medical noncompliance cx no growth so far s/p paracentesis and seems unremarkable will d/c abx on lactulose to titrate for 3-4 bowel movements/day on rifaximin Gi on board and appreciate inputs seems stable now Bacteremia on bottle gm positive bacilli Seen by ID and appreciate input will f/u repeat cx Depression? tearful want to go home consulted psychiatry-appreciate inputs Recurrent Ascites requiring recurrent admissions Not since TIPS DM2, insulin requiring Suboptimal control as of recent HgA1c on Lantus and iss adjusted ISS will monitor Chronic anemia, hemoglobin at baseline Seizure disorder well-controlled History of PE/DVT sp IVC filter placement Off anticoagulation because of bleeding risk Chronic pain on narcotics. Judicious narcotic use. DVT prophylaxis, SCD RE thrombocytopenia Full code. DISPOSITION pt/ot patient want to go home social service for d/c planning Vital Signs: Date Time Temp Pulse Resp B/P (MAP) Pulse Ox O2 Delivery O2 Flow Rate FiO2 11/03/16 08:21 98 Room Air 11/03/16 08:00 Room Air 11/03/16 07:42 36.7 92 12 136/70 (92) 98 Room Air 11/03/16 07:07 36.9 94 20 116/63 (80) 98 Room Air 11/03/16 00:00 Room Air 11/02/16 23:44 36.7 108 20 115/62 (79) 99 Room Air 11/02/16 16:00 99 Room Air 11/02/16 14:55 36.7 98 18 118/60 (79) 99 Room Air Lab Results: Results Past 24 Hours Test 11/02/16 16:14 11/02/16 20:25 11/03/16 07:23 11/03/16 08:14 Range/Units Bedside Glucose 217 299 125 70-99 mg/dl Sodium Level 138 136-145 mmol/L Potassium Level 3.7 3.5-5.1 mmol/L Chloride Level 106 98-107 mmol/L Carbon Dioxide Level 21 21-32 mmol/L Anion Gap 11.0 3-11 mmol/L Blood Urea Nitrogen 4 7-18 mg/dl Creatinine 0.79 0.60-1.40 mg/dl Est Creatinine Clear Calc Drug Dose 100.9 ml/min Estimated GFR () 111.5 Estimated GFR (Non- 96.2 BUN/Creatinine Ratio 5.1 10-20 Random Glucose 125 70-99 mg/dl Calcium Level 8.6 8.5-10.1 mg/dl Magnesium Level 1.7 1.8-2.4 mg/dl Total Bilirubin 8.1 0.2-1 mg/dl Aspartate Amino Transf (AST/SGOT) 96 15-37 U/L Alanine Aminotransferase (ALT/SGPT) 50 12-78 U/L Alkaline Phosphatase 202 45-117 U/L Ammonia 30.0 11-32 umol/L Total Protein 5.6 6.4-8.2 gm/dl Albumin 2.7 3.4-5.0 gm/dl Globulin 2.9 2.5-4.0 gm/dl Albumin/Globulin Ratio 0.9 0.9-2 Test 11/03/16 11:22 11/03/16 11:34 Range/Units Bedside Glucose 168 70-99 mg/dl White Blood Count 4.75 4.8-10.8 K/uL Red Blood Count 4.08 4.7-6.1 M/uL Hemoglobin 11.9 14.0-18.0 g/dL Hematocrit 34.5 42-52 % Mean Corpuscular Volume 84.6 80-100 fL Mean Corpuscular Hemoglobin 29.2 25-34 pg Mean Corpuscular Hemoglobin Concent 34.5 32-36 g/dl Platelet Count 62 130-400 K/uL Mean Platelet Volume 9.5 7.4-10.4 fL Neutrophils (%) (Auto) 68.7 % Lymphocytes (%) (Auto) 13.3 % Monocytes (%) (Auto) 12.4 % Eosinophils (%) (Auto) 4.8 % Basophils (%) (Auto) 0.8 % Neutrophils # (Auto) 3.26 1.4-6.5 K/uL Lymphocytes # (Auto) 0.63 1.2-3.4 K/uL Monocytes # (Auto) 0.59 0.11-0.59 K/uL Eosinophils # (Auto) 0.23 0-0.5 K/uL Basophils # (Auto) 0.04 0-0.2 K/uL RDW Standard Deviation 55.4 36.4-46.3 fL RDW Coefficient of Variation 17.7 11.5-14.5 % Immature Granulocyte % (Auto) 0.0 % Immature Granulocyte # (Auto) 0.00 0.00-0.02 K/uL Hypersegmented Polys 1+ Anisocytosis PRESENT Echinocytes 1+ Microbiology Results 11/03/16 Blood Culture, Received Pending 11/03/16 Blood Culture, Received Pending
[2016-11-03 15:13] VITALS: BP 123/56; PULSE 88; TEMP 36.6; O2SAT 98
[2016-11-03] MEDS: PYRIDOXINE HCL 50 MG TAB PO SCH (19:52)
[2016-11-03 22:01] VITALS: BP 126/68; PULSE 88; TEMP 36.7; O2SAT 98
[2016-11-03 23:54] VITALS: BP 110/61; PULSE 91; TEMP 37; O2SAT 98
[2016-11-04 07:14] VITALS: BP 102/62; PULSE 83; TEMP 36.9; O2SAT 98
[2016-11-04 07:30] VITALS: O2SAT 98
[2016-11-04] MEDS: ESCITALOPRAM OXALATE 20 MG TAB PO SCH (07:59)
[2016-11-04] MEDS: FERROUS SULFATE 325 MG TAB PO SCH ×2 (07:59→20:40)
[2016-11-04] MEDS: RIFAXIMIN TAB 550 MG TAB PO SCH ×2 (07:59→20:40)
[2016-11-04] MEDS: LEVOTHYROXINE 75 MCG TAB PO SCH (07:59)
[2016-11-04] MEDS: PANTOprazole SOD 40 MG TAB PO SCH ×2 (07:59→20:40)
[2016-11-04] MEDS: LACTULOSE SYRUP 20 GM/30 ML UDC PO SCH ×4 (07:59→20:39)
[2016-11-04 08:00] LABS: HEMATOCRIT 28.4 % (42-52); MEAN CORPUSCULAR HGB CONC 34.5 g/dl (32-36); RED BLOOD COUNT 3.38 M/uL (4.7-6.1); WHITE BLOOD COUNT 4.77 K/uL (4.8-10.8)
[2016-11-04] MEDS: POLYETHYLENE (MIRALAX) 17 GM PACK PO SCH ×2 (08:00→20:40)
[2016-11-04] MEDS: LEVETIRACETAM 500 MG TAB PO SCH ×2 (08:00→20:40)
[2016-11-04] MEDS: HYDROmorphone HCL 2 MG TAB PO PRN ×2 (08:05→15:55)
[2016-11-04 08:07] LABS: BASO % 0.8 %; BASO ABS # 0.04 K/uL (0-0.2); COMPLETE YES; EOS % 3.6 %; IG% 0.2 %; LYMPH ABS # 0.62 K/uL (1.2-3.4); MEAN PLATELET VOLUME 10.1 fL (7.4-10.4); MONO % 16.8 %; NEUT % 65.6 %; PLATELET COUNT 50 K/uL (130-400)
[2016-11-04] MEDS: INSULIN ASPART 100 UNITS/ML 3 ML PEN SC SCH ×4 (08:09→20:45)
[2016-11-04] MEDS: INSULIN GLARGINE SOLOSTAR 100 UNITS/ML 3 ML PEN SC SCH ×2 (08:10→20:45)
[2016-11-04 16:04] VITALS: BP 110/60; PULSE 89; TEMP 37.2; O2SAT 97
--- NOTE | 2016-11-04 17:15 | Progress Note ---
Internal Med Progress Note Date of Service: Nov 04, 2016. Provider Documentation: SUBJECTIVE: resting comfortably feeling fine 'ambulated ok eating fine moved his bowels afebrile OBJECTIVE: Vital Signs-as noted below Exam: General-alert and awake. not in distress ENT-normal hearing Neck-no neck masses supple Lungs-cta b/l no wheezing or crackles Heart-s1 and s2 heard regular no murmurs Abdomen-soft bowel sounds present non tender no distension Extremities-no erythema pedal edema present Neuro-alert and awake moves extremities Lab data as noted below. ASSESSMENT & PLAN: Hepatic encephalopathy:Cirrhosis secondary to NAFLD Recent TIPS-likely from TIPS Possible medical noncompliance cx no growth so far s/p paracentesis and seems unremarkable stopped d/c abx on lactulose to titrate for 3-4 bowel movements/day on rifaximin Gi on board and appreciate inputs seems stable now close monitor Bacteremia on bottle gm positive bacilli Seen by ID and appreciate input mostly contaminant will f/u repeat cx Depression? tearful want to go home consulted psychiatry-appreciate inputs Recurrent Ascites requiring recurrent admissions Not since TIPS DM2, insulin requiring Suboptimal control as of recent HgA1c on Lantus and iss adjusted ISS will monitor Chronic anemia, hemoglobin at baseline Seizure disorder well-controlled History of PE/DVT sp IVC filter placement Off anticoagulation because of bleeding risk Chronic pain on narcotics. Judicious narcotic use. DVT prophylaxis, SCD RE thrombocytopenia Full code. DISPOSITION pt/ot patient want to go home social service for d/c planning Vital Signs: Date Time Temp Pulse Resp B/P (MAP) Pulse Ox O2 Delivery O2 Flow Rate FiO2 11/04/16 16:04 37.2 89 16 110/60 (77) 97 Room Air 11/04/16 07:30 98 Room Air 11/04/16 07:14 36.9 83 18 102/62 (75) 98 Room Air 11/04/16 00:47 Room Air 11/03/16 23:54 37.0 91 20 110/61 (77) 98 Room Air 11/03/16 22:01 36.7 88 16 126/68 (87) 98 Room Air Lab Results: Results Past 24 Hours Test 11/03/16 20:01 11/04/16 07:05 11/04/16 07:29 11/04/16 11:05 Range/Units Bedside Glucose 167 139 191 70-99 mg/dl White Blood Count 4.77 4.8-10.8 K/uL Red Blood Count 3.38 4.7-6.1 M/uL Hemoglobin 9.8 14.0-18.0 g/dL Hematocrit 28.4 42-52 % Mean Corpuscular Volume 84.0 80-100 fL Mean Corpuscular Hemoglobin 29.0 25-34 pg Mean Corpuscular Hemoglobin Concent 34.5 32-36 g/dl Platelet Count 50 130-400 K/uL Mean Platelet Volume 10.1 7.4-10.4 fL Neutrophils (%) (Auto) 65.6 % Lymphocytes (%) (Auto) 13.0 % Monocytes (%) (Auto) 16.8 % Eosinophils (%) (Auto) 3.6 % Basophils (%) (Auto) 0.8 % Neutrophils # (Auto) 3.13 1.4-6.5 K/uL Lymphocytes # (Auto) 0.62 1.2-3.4 K/uL Monocytes # (Auto) 0.80 0.11-0.59 K/uL Eosinophils # (Auto) 0.17 0-0.5 K/uL Basophils # (Auto) 0.04 0-0.2 K/uL RDW Standard Deviation 54.8 36.4-46.3 fL RDW Coefficient of Variation 17.8 11.5-14.5 % Immature Granulocyte % (Auto) 0.2 % Immature Granulocyte # (Auto) 0.01 0.00-0.02 K/uL Test 11/04/16 16:20 Range/Units Bedside Glucose 136 70-99 mg/dl
[2016-11-04] MEDS: ONDANSETRON INJ 2 MG/ML 2 ML VIAL IV PRN (20:39)
[2016-11-04] MEDS: PYRIDOXINE HCL 50 MG TAB PO SCH (20:40)
[2016-11-04 23:25] VITALS: BP 109/67; PULSE 79; TEMP 36.8; O2SAT 97
[2016-11-05] MEDS: HYDROmorphone HCL 2 MG TAB PO PRN ×3 (04:44→23:36)
[2016-11-05] MEDS: LEVOTHYROXINE 75 MCG TAB PO SCH (04:44)
[2016-11-05 07:22] VITALS: BP 114/62; PULSE 78; TEMP 36.7; O2SAT 97
[2016-11-05] MEDS: RIFAXIMIN TAB 550 MG TAB PO SCH ×2 (07:52→20:57)
[2016-11-05] MEDS: LACTULOSE SYRUP 20 GM/30 ML UDC PO SCH ×4 (07:52→20:55)
[2016-11-05] MEDS: LEVETIRACETAM 500 MG TAB PO SCH ×2 (07:53→20:56)
[2016-11-05] MEDS: FERROUS SULFATE 325 MG TAB PO SCH ×2 (07:53→20:56)
[2016-11-05] MEDS: ESCITALOPRAM OXALATE 20 MG TAB PO SCH (07:53)
[2016-11-05] MEDS: POLYETHYLENE (MIRALAX) 17 GM PACK PO SCH ×2 (07:53→21:00)
[2016-11-05] MEDS: PANTOprazole SOD 40 MG TAB PO SCH ×2 (07:54→20:56)
[2016-11-05] MEDS: INSULIN ASPART 100 UNITS/ML 3 ML PEN SC SCH ×4 (07:57→20:54)
[2016-11-05] MEDS: INSULIN GLARGINE SOLOSTAR 100 UNITS/ML 3 ML PEN SC SCH ×2 (07:58→20:55)
[2016-11-05] MEDS: CLINDAMYCIN IV 600 MG in DEXTROSE 5% 50ML 50 ML IV SCH ×2 (13:59→20:58)
[2016-11-05 14:55] VITALS: BP 101/64; PULSE 75; TEMP 36.6; O2SAT 97
--- NOTE | 2016-11-05 17:33 | Progress Note ---
Internal Med Progress Note Date of Service: Nov 05, 2016. Provider Documentation: SUBJECTIVE: resting comfortably ok to sat but refusing iv meds afebrile 'denies any pain eating ok OBJECTIVE: Vital Signs-as noted below Exam: General-alert and awake. not in distress ENT-normal hearing Neck-no neck masses supple Lungs-cta b/l no wheezing or crackles Heart-s1 and s2 heard regular no murmurs Abdomen-soft bowel sounds present non tender no distension Extremities-no erythema pedal edema present Neuro-alert and awake moves extremities Lab data as noted below. ASSESSMENT & PLAN: Hepatic encephalopathy:Cirrhosis secondary to NAFLD Recent TIPS-likely from TIPS Possible medical noncompliance cx no growth so far s/p paracentesis and seems unremarkable stopped d/c abx on lactulose to titrate for 3-4 bowel movements/day on rifaximin Gi on board and appreciate inputs stable Bacteremia on bottle gm positive bacilli Seen by ID and appreciate input mostly contaminant repeat cx negative final cx growing actinomyces isralei Id recommends iv clindamycin- patient refusing iv line- will re discuss with patient Depression? tearful want to go home consulted psychiatry-appreciate inputs Recurrent Ascites requiring recurrent admissions Not since TIPS DM2, insulin requiring Suboptimal control as of recent HgA1c on Lantus and iss adjusted ISS will monitor Chronic anemia, hemoglobin at baseline Seizure disorder well-controlled History of PE/DVT sp IVC filter placement Off anticoagulation because of bleeding risk Chronic pain on narcotics. Judicious narcotic use. DVT prophylaxis, SCD RE thrombocytopenia Full code. DISPOSITION pt/ot patient want to go home social service for d/c planning Vital Signs: Date Time Temp Pulse Resp B/P (MAP) Pulse Ox O2 Delivery O2 Flow Rate FiO2 11/05/16 14:55 36.6 75 18 101/64 (76) 97 Room Air 11/05/16 08:00 Room Air 11/05/16 07:22 36.7 78 16 114/62 (79) 97 Room Air 11/05/16 00:00 Room Air 11/04/16 23:25 36.8 79 18 109/67 (81) 97 Room Air Lab Results: Results Past 24 Hours Test 11/04/16 20:12 11/05/16 07:21 11/05/16 11:21 11/05/16 17:17 Range/Units Bedside Glucose 183 121 224 121 70-99 mg/dl
[2016-11-05] MEDS: PYRIDOXINE HCL 50 MG TAB PO SCH (20:57)
[2016-11-05 23:41] VITALS: BP 115/65; PULSE 68; TEMP 36.7; O2SAT 99
[2016-11-06] MEDS: CLINDAMYCIN IV 600 MG in DEXTROSE 5% 50ML 50 ML IV SCH ×2 (06:00→09:00)
[2016-11-06] MEDS: LEVOTHYROXINE 75 MCG TAB PO SCH (06:19)
[2016-11-06] MEDS: HYDROmorphone HCL 2 MG TAB PO PRN ×2 (06:19→12:34)
[2016-11-06 06:58] VITALS: BP 120/79; PULSE 75; TEMP 36.7; O2SAT 96
[2016-11-06 08:19] LABS: BUN/CREATININE RATIO 8.3 (10-20); CALCIUM 7.9 mg/dl (8.5-10.1); CREATININE 0.66 mg/dl (0.60-1.40); MAGNESIUM 1.8 mg/dl (1.8-2.4); POTASSIUM 3.9 mmol/L (3.5-5.1)
[2016-11-06] MEDS: INSULIN ASPART 100 UNITS/ML 3 ML PEN SC SCH ×3 (08:20→12:30)
--- NOTE | 2016-11-06 08:36 | Progress Note ---
Subjective Date of Service: Nov 06, 2016. Subjective final blood culture with actinomyces. on clinda, po , refusing IV. fluid culture negative. afebrile. Problem List Medical Problems: (1) Abdominal pain Status: Acute (2) Abdominal pain Status: Acute (3) Abdominal pain Status: Acute (4) Acute hyperglycemia Status: Acute (5) Ambulatory dysfunction Status: Acute (6) Ambulatory dysfunction Status: Acute (7) Anasarca Status: Acute (8) Anemia Status: Acute (9) Anemia Status: Acute (10) Anemia Status: Acute (11) Arm pain, right Status: Acute (12) Ascites Status: Acute (13) Ascites Status: Acute (14) Ascites Status: Acute (15) Ascites Status: Acute (16) Ascites Status: Acute (17) Cellulitis of scrotum Status: Acute (18) Chest pain Status: Acute (19) Chronic liver failure Status: Acute (20) Chronic low back pain Status: Acute (21) Cirrhosis Status: Acute (22) Cirrhosis of liver Status: Acute (23) Contusion of left foot Status: Acute (24) Dehydration Status: Acute (25) Diarrhea Status: Acute (26) Diarrhea Status: Acute (27) Diffuse abdominal pain Status: Acute (28) Diffuse abdominal pain Status: Acute (29) Diffuse abdominal pain Status: Acute (30) Diffuse abdominal pain Status: Acute (31) Dyspnea Status: Acute (32) Dyspnea Status: Acute (33) Failure of outpatient treatment Status: Acute (34) Fall Status: Acute (35) Generalized weakness Status: Acute (36) Generalized weakness Status: Acute (37) Hepatic encephalopathy Status: Acute (38) HHNC (hyperglycemic hyperosmolar nonketotic coma) Status: Acute (39) Hyperammonemia Status: Acute (40) Hyperglycemia Status: Acute (41) Hyperglycemia Status: Acute (42) Hyperglycemia Status: Acute (43) Hyperglycemia Status: Acute (44) Hyperglycemia due to type 2 diabetes mellitus Status: Acute (45) Hypoglycemia Status: Acute (46) Hypoglycemia Status: Acute (47) Left arm pain Status: Acute (48) Left sided chest pain Status: Acute (49) Muscle weakness Status: Acute (50) Nausea vomiting and diarrhea Status: Acute (51) Nausea, vomiting, and diarrhea Status: Acute (52) Thrombocytopenia Status: Acute (53) Thrombocytopenia Status: Acute (54) Weakness Status: Acute Objective Vital Signs Date Time Temp Pulse Resp B/P (MAP) Pulse Ox O2 Delivery O2 Flow Rate FiO2 11/06/16 06:58 36.7 75 18 120/79 (93) 96 Room Air 11/06/16 00:00 Room Air 11/05/16 23:41 36.7 68 18 115/65 (82) 99 Room Air 11/05/16 18:14 Room Air 11/05/16 14:55 36.6 75 18 101/64 (76) 97 Room Air Laboratory Results Last 24 Hours Test 11/05/16 11:21 11/05/16 17:17 11/05/16 19:41 11/06/16 07:39 Bedside Glucose 224 mg/dl 121 mg/dl 184 mg/dl Sodium Level 140 mmol/L Potassium Level 3.9 mmol/L Chloride Level 106 mmol/L Carbon Dioxide Level 25 mmol/L Anion Gap 9.0 mmol/L Blood Urea Nitrogen 6 mg/dl Creatinine 0.66 mg/dl Est Creatinine Clear Calc Drug Dose 120.8 ml/min Estimated GFR () 120.1 Estimated GFR (Non- 103.6 BUN/Creatinine Ratio 8.3 Random Glucose 151 mg/dl Calcium Level 7.9 mg/dl Magnesium Level 1.8 mg/dl Test 11/06/16 08:12 Assessment and Plan (1) Positive blood culture Assessment & Plan: continue po clinda, 14 days total.
[2016-11-06] MEDS: ONDANSETRON INJ 2 MG/ML 2 ML VIAL IV PRN (08:41)
[2016-11-06] MEDS: PANTOprazole SOD 40 MG TAB PO SCH (08:49)
[2016-11-06] MEDS: LACTULOSE SYRUP 20 GM/30 ML UDC PO SCH ×2 (08:49→12:30)
[2016-11-06] MEDS: POLYETHYLENE (MIRALAX) 17 GM PACK PO SCH (08:49)
[2016-11-06] MEDS: FERROUS SULFATE 325 MG TAB PO SCH (08:49)
[2016-11-06] MEDS: LEVETIRACETAM 500 MG TAB PO SCH (08:49)
[2016-11-06] MEDS: RIFAXIMIN TAB 550 MG TAB PO SCH (08:50)
[2016-11-06] MEDS: ESCITALOPRAM OXALATE 20 MG TAB PO SCH (08:50)
[2016-11-06] MEDS: INSULIN GLARGINE SOLOSTAR 100 UNITS/ML 3 ML PEN SC SCH (08:53)
[2016-11-06 09:01] LABS: HEMATOCRIT 32.5 % (42-52); MEAN CELL VOLUME 86.9 fL (80-100); MEAN CORPUSCULAR HEMOGLOBIN 27.8 pg (25-34); RED BLOOD COUNT 3.74 M/uL (4.7-6.1); WHITE BLOOD COUNT 4.25 K/uL (4.8-10.8)
[2016-11-06 09:29] LABS: MEAN PLATELET VOLUME 10.3 fL (7.4-10.4); PLATELET COUNT 61 K/uL (130-400)
[2016-11-06 09:30] LABS: BASO % 0.7 %; BASO ABS # 0.03 K/uL (0-0.2); COMPLETE YES; ECHINOCYTES 1+; EOS % 4.5 %; IG% 0.2 %; LYMPH ABS # 0.68 K/uL (1.2-3.4); MONO % 10.6 %; PLT ESTIMATE DECREASED; VACUOLIZATION 1+
[2016-11-06] MEDS: CLINDAMYCIN HCL 150 MG CAP PO SCH ×2 (10:30→13:48)
[2016-11-06] MEDS ORDERED: LCTX PO (14:29)
[2016-11-06] MEDS ORDERED: CLIN300C2 PO (14:29)
--- NOTE | 2016-11-06 14:32 | Discharge Instructions ---
Discharge Instructions Date of Service Nov 06, 2016. Admission Reason for Admission: Hepatic Encephalopathy Discharge Discharge Diagnosis / Problem: HEPATIC ENCEPHALOPATHY, BACTEREMIA Discharge Goals Goal(s): Decrease discomfort, Improve function Activity Recommendations Activity Limitations: resume your previous activity . Instructions / Follow-Up Instructions / Follow-Up FOLLOWUP WITH FAMILY DOCTOR ON November AT 11:05AM FOLLOWUP WITH GI SCHEDULED. FOLLOWUP WITH PSYCHIATRY IN 1-2 WEEKS Current Hospital Diet Patient's current hospital diet: Diabetes Type 2 Diet, Low Sodium Diet (2gm Na) Discharge Diet Recommended Diet: Low Sodium Diet (2gm Na), Diabetes Type 2 Diet Pending Studies Studies pending at discharge: no Laboratory Results Hemoglobin A1c Test 10/02/16 06:54 Range/Units Estimated Average Glucose 260 mg/dl Hemoglobin A1c 10.7 H 4.5-5.6 % Medical Emergencies . Who to Call and When: Medical Emergencies: If at any time you feel your situation is an emergency, please call 911 immediately. . Non-Emergent Contact Non-Emergency issues call your: Primary Care Provider . . "Provider Documentation" section prepared by Gabriel Grossman. . VTE Core Measure Inpt VTE Proph given/why not?: SCD's
[2016-11-06 14:51] VITALS: BP 120/79; PULSE 75; TEMP 36.7; O2SAT 96
[2016-11-06 14:52] VITALS: BP 104/62; PULSE 77; TEMP 36.7; O2SAT 98
--- NOTE | 2016-11-06 19:12 | Progress Note ---
Internal Med Progress Note Date of Service: Nov 06, 2016. Provider Documentation: SUBJECTIVE: resting comfortably no pain eating ok afebrile want to go home OBJECTIVE: Vital Signs-as noted below Exam: General-alert and awake. not in distress ENT-normal hearing Neck-no neck masses supple Lungs-cta b/l no wheezing or crackles Heart-s1 and s2 heard regular no murmurs Abdomen-soft bowel sounds present non tender no distension Extremities-no erythema pedal edema present Neuro-alert and awake moves extremities Lab data as noted below. ASSESSMENT & PLAN: Hepatic encephalopathy:Cirrhosis secondary to NAFLD Recent TIPS-likely from TIPS Possible medical noncompliance cx no growth so far s/p paracentesis and seems unremarkable stopped abx on lactulose to titrate for 3-4 bowel movements/day on rifaximin Gi on board and appreciate inputs d/c on home meds f/u with GI stable Bacteremia on bottle gm positive bacilli Seen by ID and appreciate input mostly contaminant repeat cx negative final cx growing actinomyces isralei Id recommends iv clindamycin- patient refusing iv line- will re discuss with patient ID ok with po clindamycin for 2 weeks Depression? tearful want to go home consulted psychiatry-appreciate inputs on lexapro f/u with psychiatry Recurrent Ascites requiring recurrent admissions Not since TIPS DM2, insulin requiring Suboptimal control as of recent HgA1c on Lantus and iss adjusted ISS d/c on home meds Chronic anemia, hemoglobin at baseline Seizure disorder well-controlled History of PE/DVT sp IVC filter placement Off anticoagulation because of bleeding risk Chronic pain on narcotics. Judicious narcotic use. Discharged home with home health Vital Signs: Date Time Temp Pulse Resp B/P (MAP) Pulse Ox O2 Delivery O2 Flow Rate FiO2 11/06/16 14:52 36.7 77 18 104/62 (76) 98 Room Air 11/06/16 14:51 36.7 75 18 96 Room Air 11/06/16 08:00 Room Air 11/06/16 06:58 36.7 75 18 120/79 (93) 96 Room Air 11/06/16 00:00 Room Air 11/05/16 23:41 36.7 68 18 115/65 (82) 99 Room Air Lab Results: Results Past 24 Hours Test 11/05/16 19:41 11/06/16 07:39 11/06/16 08:07 11/06/16 08:49 Range/Units Bedside Glucose 184 147 70-99 mg/dl Sodium Level 140 136-145 mmol/L Potassium Level 3.9 3.5-5.1 mmol/L Chloride Level 106 98-107 mmol/L Carbon Dioxide Level 25 21-32 mmol/L Anion Gap 9.0 3-11 mmol/L Blood Urea Nitrogen 6 7-18 mg/dl Creatinine 0.66 0.60-1.40 mg/dl Est Creatinine Clear Calc Drug Dose 120.8 ml/min Estimated GFR () 120.1 Estimated GFR (Non- 103.6 BUN/Creatinine Ratio 8.3 10-20 Random Glucose 151 70-99 mg/dl Calcium Level 7.9 8.5-10.1 mg/dl Magnesium Level 1.8 1.8-2.4 mg/dl White Blood Count 4.25 4.8-10.8 K/uL Red Blood Count 3.74 4.7-6.1 M/uL Hemoglobin 10.4 14.0-18.0 g/dL Hematocrit 32.5 42-52 % Mean Corpuscular Volume 86.9 80-100 fL Mean Corpuscular Hemoglobin 27.8 25-34 pg Mean Corpuscular Hemoglobin Concent 32.0 32-36 g/dl Platelet Count 61 130-400 K/uL Mean Platelet Volume 10.3 7.4-10.4 fL Neutrophils (%) (Auto) 68.0 % Lymphocytes (%) (Auto) 16.0 % Monocytes (%) (Auto) 10.6 % Eosinophils (%) (Auto) 4.5 % Basophils (%) (Auto) 0.7 % Neutrophils # (Auto) 2.89 1.4-6.5 K/uL Lymphocytes # (Auto) 0.68 1.2-3.4 K/uL Monocytes # (Auto) 0.45 0.11-0.59 K/uL Eosinophils # (Auto) 0.19 0-0.5 K/uL Basophils # (Auto) 0.03 0-0.2 K/uL RDW Standard Deviation 58.2 36.4-46.3 fL RDW Coefficient of Variation 18.8 11.5-14.5 % Immature Granulocyte % (Auto) 0.2 % Immature Granulocyte # (Auto) 0.01 0.00-0.02 K/uL Toxic Vacuolation 1+ Platelet Estimate DECREASED Echinocytes 1+ Test 11/06/16 11:24 Range/Units Bedside Glucose 127 70-99 mg/dl
--- NOTE | 2016-11-06 19:25 | Discharge Summary ---
Discharge Summary Date of Service Nov 06, 2016. Discharge Summary Admission Date: Oct 31, 2016 at 20:48 Discharge Date: Nov 06, 2016 Discharge Disposition: Home with services Principal Diagnosis: HEPATIC ENCEPHALOPATHY BACTEREMIA? Secondary Diagnoses/Problems: 1) Anxiety Status: Chronic (2) Depression Status: Chronic (3) DM2 (diabetes mellitus, type 2) Status: Chronic (4) End stage liver disease Status: Chronic (5) Esophageal varices Status: Chronic (6) Failed back surgical syndrome Status: Chronic (7) HLD (hyperlipidemia) Status: Chronic (8) Hypothyroidism Status: Chronic (9) BETANCOURT (nonalcoholic steatohepatitis) Status: Chronic (10) Pericardial effusion Status: Chronic (11) Portal hypertension Status: Chronic (12) Pulmonary embolism Status: Resolved (13) Seizure disorder Status: Chronic (14) Superior mesenteric vein thrombosis Status: Chronic Procedures: CXR: IMPRESSION: Increased basal interstitial markings. While likely atelectatic, interstitial inflammatory process could appear similar. Clinical and radiographic follow-up is recommended. CT ABD/PELVIS: 1. Cholelithiasis. No biliary ductal dilatation. 2. Cirrhosis with portal hypertension evidenced by splenomegaly and varices. Patent TIPS. 3. Small to moderate ascites, unchanged from prior. 4. Marked stool burden in the right and transverse colon. 5. Mild circumferential bladder wall thickening could suggest chronic outlet obstruction or cystitis. Correlate with urinalysis. S/P PARACENTESIS Consultations: GI PSYCHIATRY Medication Reconciliation New Medications: Clindamycin Hcl (Cleocin) 300 Mg Cap 2 CAP PO TID for 14 Days, #84 CAP Lactobacillus Acidophilus (Lactinex) Tab 2 TAB PO TID for 20 Days, TAB Continued Medications: Diphenhydramine Hcl (Benadryl) 25 Mg Cap 25 MG PO BID PRN for Itching Escitalopram Oxalate (Lexapro) 20 Mg Tab 20 MG PO DAILY, TAB Ferrous Sulfate (Kp Ferrous Sulfate) 325 Mg Tab 325 MG PO BID, TAB Furosemide (Lasix) 40 Mg Tab 40 MG PO DAILY, TAB Hydromorphone Hcl (Dilaudid) 4 Mg Tab 4 MG PO Q6 PRN for Pain, TAB Insulin Aspart (Novolog) 100 Units/Ml Inj 14 UNITS SQ TIDM PLUS SLIDING SCALE Insulin Glargine (Lantus) 100 Unit/Ml Inj 38 UNITS SC BID Lactulose (Chronulac) 10 Gm/15 Ml Syrp 20 ML PO QID Levetiractam (Levetiracetam) 500 Mg Tab 500 MG PO BID Levothyroxine Sodium (Synthroid) 75 Mcg Tab 75 MCG PO QAM Magnesium Oxide (Mag-Ox) 400 Mg Tab 400 MG PO BID Melatonin (Kp Melatonin) 3 Mg Tab 2 MG PO HS for 30 Days, #30 TAB Ondasetron Odt (Zofran Odt) 4 Mg Tab 1-2 MG SL Q8 PRN for Nausea or Vomiting, TAB Pantoprazole (Protonix) 40 Mg Tab 40 MG PO BID, TAB Polyethylene Glycol 3350 (Miralax) 1 Pow Pow 17 GM PO BID Pyridoxine Hcl (Vitamin B-6) 25 Mg Tab 25 MG PO HS Rifaximin (Xifaxan) 550 Mg Tab 550 MG PO BID for 30 Days, #60 TAB Spironolactone (Aldactone) 100 Mg Tab 100 MG PO BID Triamcinolone Acet (Aristocort 0.1%) 90 Appln/30 Gm Cr 1 APPL EXT BID PRN for dermatitis Admission Information HPI (per Admitting provider): This is a 61yo M with a PMH of BETANCOURT cirrhosis, hepatic encephalopathy, esophageal varices, thrombocytopenia, DM II and hypothyroidism who presents with confusion that began earlier today. Patient was recently admitted for hepatic encephalopathy on 10/24 and was discharged on 10/29. States that he felt fine at the time of discharge but has become weak and confused since then. Unable to provide a more detailed history 2/2 confusion. Was brought to the ER by EMS after roommate noticed his confusion today. Patient had a TIPS procedure on 10/20/16 at [facility]. Per chart review, TIPS procedure was uncomplicated and patient had no bleeding from transjugular insertion site. Patient states that he has been taking medications but is unsure of the last time he took lactulose or insulin. Per nursing note, home health nurse does not think patient has been compliant with medications since discharged home on the . Is currently oriented to person but not place or time. States he just "feels badly". Denies any abdominal pain at this time. Denies fever, chills, CP , SOB, nausea, vomiting, diarrhea, constipation, dysuria, LE swelling. Physical Exam (per Admitting): General Appearance: no apparent distress (Sleeping comfortably. Chronically ill appearing ) Head: normocephalic, atraumatic Eyes: normal inspection, PERRL, + abnormal sclerae exam (scleral icterus) ENT: hearing grossly normal Neck: supple, no adenopathy, trachea midline Respiratory/Chest: chest non-tender, lungs clear, normal breath sounds, no respiratory distress, no accessory muscle use Cardiovascular: regular rate, rhythm, no murmur Abdomen/GI: normal bowel sounds, non tender, soft (hernia visualized ), no organomegaly Back: normal inspection Extremities/Musculoskelatal: normal inspection, no calf tenderness, normal capillary refill, no pedal edema Neurologic/Psych: alert (Oriented to self, not to place or time. Confused during exam. ) Skin: + jaundice Hospital Course Hepatic encephalopathy:Cirrhosis secondary to NAFLD Recent TIPS-likely from TIPS Possible medical noncompliance cx no growth so far s/p paracentesis and seems unremarkable stopped abx on lactulose to titrate for 3-4 bowel movements/day on rifaximin Gi on board and appreciate inputs d/c on home meds f/u with GI stable Bacteremia on bottle gm positive bacilli Seen by ID and appreciate input mostly contaminant repeat cx negative final cx growing actinomyces isralei Id recommends iv clindamycin- patient refusing iv line- will re discuss with patient ID ok with po clindamycin for 2 weeks Depression? tearful want to go home consulted psychiatry-appreciate inputs on lexapro f/u with psychiatry Recurrent Ascites requiring recurrent admissions Not since TIPS DM2, insulin requiring Suboptimal control as of recent HgA1c on Lantus and iss adjusted ISS d/c on home meds Chronic anemia, hemoglobin at baseline Seizure disorder well-controlled History of PE/DVT sp IVC filter placement Off anticoagulation because of bleeding risk Chronic pain on narcotics. Judicious narcotic use. Discharged home with home health Total time spent on discharge = 35MINUTES This includes examination of the patient, discharge planning, medication reconciliation, and communication with other providers. Discharge Instructions Discharge Instructions Date of Service Nov 06, 2016. Admission Reason for Admission: Hepatic Encephalopathy Discharge Discharge Diagnosis / Problem: HEPATIC ENCEPHALOPATHY, BACTEREMIA Discharge Goals Goal(s): Decrease discomfort, Improve function Activity Recommendations Activity Limitations: resume your previous activity . Instructions / Follow-Up Instructions / Follow-Up FOLLOWUP WITH FAMILY DOCTOR ON November AT 11:05AM FOLLOWUP WITH GI SCHEDULED. FOLLOWUP WITH PSYCHIATRY IN 1-2 WEEKS Current Hospital Diet Patient's current hospital diet: Diabetes Type 2 Diet, Low Sodium Diet (2gm Na) Discharge Diet Recommended Diet: Low Sodium Diet (2gm Na), Diabetes Type 2 Diet Pending Studies Studies pending at discharge: no Laboratory Results Hemoglobin A1c Test 10/02/16 06:54 Range/Units Estimated Average Glucose 260 mg/dl Hemoglobin A1c 10.7 H 4.5-5.6 % Medical Emergencies . Who to Call and When: Medical Emergencies: If at any time you feel your situation is an emergency, please call 911 immediately. . Non-Emergent Contact Non-Emergency issues call your: Primary Care Provider . . "Provider Documentation" section prepared by Gabriel Grossman. . VTE Core Measure Inpt VTE Proph given/why not?: SCD's
== END 2016-11-06 16:00 | disposition home health service (06) | DRG 442 ==
LOC: EDBD 15:46 → C.EDC 15:47 → C.MED 20:48 → ENRESERV 21:11 → CANRESERV 21:11 → ENRESERV 21:20
PROVIDERS: ADMIT Internal Medicine; ATTEND Internal Medicine
PROC: 0W9G3ZX Drainage of Peritoneal Cavity, Percutaneous Approach, Diagnostic (ICD-10-PCS; principal; 2016-11-02)
DX: K72.90 Hepatic failure, unspecified without coma (principal); K76.6 Portal hypertension; I85.10 Secondary esophageal varices without bleeding; R18.8 Other ascites; N39.0 Urinary tract infection, site not specified; A42.9 Actinomycosis, unspecified; K75.81 Nonalcoholic steatohepatitis (NASH); R74.0 Nonspecific elevation of levels of transaminase and lactic acid dehydrogenase [LDH]; E11.65 Type 2 diabetes mellitus with hyperglycemia; D69.6 Thrombocytopenia, unspecified; E03.9 Hypothyroidism, unspecified; D64.9 Anemia, unspecified; G40.909 Epilepsy, unspecified, not intractable, without status epilepticus; G89.29 Other chronic pain; F32.9 Major depressive disorder, single episode, unspecified; Z91.19 Patient's noncompliance with other medical treatment and regimen; Z98.890 Other specified postprocedural states; Z86.711 Personal history of pulmonary embolism; Z86.718 Personal history of other venous thrombosis and embolism; Z79.2 Long term (current) use of antibiotics; Z79.4 Long term (current) use of insulin; Z79.891 Long term (current) use of opiate analgesic; Z79.899 Other long term (current) drug therapy; Z82.49 Family history of ischemic heart disease and other diseases of the circulatory system; Z80.3 Family history of malignant neoplasm of breast

== ENCOUNTER 2016-11-10 21:31 | Emergency (ER) | payer OTHER ==
[~2016-11-10] VITALS: Ht 182.9 cm; Wt 80.5 kg
[~2016-11-10 21:31] MED LIST changes: +CLIN300C2 PO; +LCTX PO
[2016-11-10 21:37] VITALS: TEMP 36.8; Ht 182.9 cm; Wt 80.5 kg
[2016-11-11 00:08] LABS: HEMATOCRIT 30.5 % (42-52); MEAN CELL VOLUME 84.7 fL (80-100); MEAN CORPUSCULAR HEMOGLOBIN 30.3 pg (25-34); MEAN CORPUSCULAR HGB CONC 35.7 g/dl (32-36); MEAN PLATELET VOLUME 9.9 fL (7.4-10.4); PLATELET COUNT 57 K/uL (130-400); WHITE BLOOD COUNT 4.98 K/uL (4.8-10.8)
[2016-11-11] MEDS ORDERED: RIFA550T2 PO (00:08)
[2016-11-11] MEDS ORDERED: CLIN300C2 PO (00:08)
[2016-11-11] MEDS ORDERED: LCTX PO (00:08)
[2016-11-11 00:15] LABS: BUN/CREATININE RATIO 12.8 (10-20); CALCIUM 8.3 mg/dl (8.5-10.1); CREATININE 0.78 mg/dl (0.60-1.40); POTASSIUM 3.8 mmol/L (3.5-5.1)
[2016-11-11 00:25] LABS: ANISOCYTOSIS PRESENT; BASO % 0.8 %; BASO ABS # 0.04 K/uL (0-0.2); COMPLETE YES; ECHINOCYTES 1+; EOS % 1.4 %; LYMPH ABS # 0.55 K/uL (1.2-3.4); MONO % 7.6 %; NEUT % 79.2 %
[2016-11-11] MEDS ORDERED: HYDROmorphone INJ 1 MG/ML SYR IV STA (00:44)
[2016-11-11] MEDS ORDERED: HYDROmorphone INJ 0.5 MG/0.5 ML SYR ONE (01:01)
[2016-11-11 03:04] VITALS: BP 131/74; PULSE 83; O2SAT 100
--- NOTE | 2016-11-11 07:51 | DIAGNOSTIC IMAGING REPORT ---
HEAD WITHOUT CONTRAST (CT) CLINICAL HISTORY: 61 years-old Male with eval for bleed. Acute head trauma. TECHNIQUE: Multiple axial CT images of the head were obtained without contrast. A dose lowering technique was utilized adhering to the principles of ALARA. COMPARISON: CT head 05/25/2016. FINDINGS: No acute intracranial hemorrhage, midline shift, mass, large territorial ischemia or abnormal extra-axial collection. The calvarium is intact. The mastoid air cells, and middle ear cavities are clear. Mild left maxillary sinus disease. IMPRESSION: No acute intracranial abnormality. The above report was generated using voice recognition software. It may contain grammatical, syntax or spelling errors. Electronically signed by: Elia Ramesh M.D. 11/11/2016 7:50 AM Dictated Date/Time: 11/11/2016 7:49 AM
--- NOTE | 2016-11-11 08:45 | DIAGNOSTIC IMAGING REPORT ---
CERVICAL SPINE W/O CLINICAL HISTORY: 61 years-old Male with eval for fx. Acute neck injury concern for fracture. COMPARISON: CT thoracic spine of same day. TECHNIQUE: Multiple axial CT images of the cervical spine were obtained without contrast. A dose lowering technique was utilized adhering to the principles of ALARA. FINDINGS: Vertebral body heights and alignment are normal. No fracture or subluxation is identifed. Anterior fusion at C5-C6 with partial bony fusion of the vertebral bodies at this level. Moderate to severe intervertebral disc space narrowing with broad-based posterior disc osteophyte complex at C3-C4 without significant central canal stenosis. There is however moderate right foraminal narrowing at this interspace. The cervical soft tissues appear unremarkable. The visualized lung apices appear clear. IMPRESSION: 1. No acute cervical spine fracture or subluxation. 2. Anterior fusion at C5-C6. 3. Moderate to severe intervertebral disc space narrowing with broad-based posterior disc osteophyte complex at C3-C4 causing moderate right foraminal narrowing. The above report was generated using voice recognition software. It may contain grammatical, syntax or spelling errors. Electronically signed by: Elia Ramesh M.D. 11/11/2016 8:43 AM Dictated Date/Time: 11/11/2016 8:40 AM
--- NOTE | 2016-11-11 10:22 | DIAGNOSTIC IMAGING REPORT ---
LUMBAR SPINE WITHOUT HISTORY: 61 years-old Male eval for fx acute low back pain with concern for fracture. COMPARISON: MRI lumbar spine 09/21/2015, CT lumbar spine 10/14/2013 TECHNIQUE: Multiple axial CT images of the lumbar spine were obtained without IV contrast. A dose lowering technique was used consistent with the principals of ALARA. FINDINGS: Chronic compression deformity of L1 is noted with Schmorl's nodes redemonstrated at T12-L1. No significant retropulsion. 6 mm anterolisthesis L5 on S1 is unchanged. Prior posterior decompression with interbody luis and screw fusion at the L4-S1 levels. Chronic fractures of the bilateral S1 transpedicular screws are noted. Chronic fracture of the left L4 pedicle screw is also seen. These findings are unchanged dating back to 10/14/2013. Bones are mildly demineralized. No acute fracture or subluxation. There is mild convex left curvature of the lumbar spine. Multilevel posterior disc bulging is noted, notably at 2-L3 and L3-L4 with associated facet arthropathy. No high-grade central canal or foraminal narrowing identified. There is moderate bilateral foraminal stenosis at L3-L4. IVC filter noted. TIPS shunt is partially imaged. Small volume intra-abdominal ascites. Embolization coils of the mid abdomen are noted. IMPRESSION: 1. No acute lumbar spine fracture or subluxation identified. 2. Chronic compression deformity of L1 without significant retropulsion. 3. Prior posterior decompression with interbody luis and screw fusion at L4-S1. Remote fractures of the bilateral S1 and left L4 pedicle screws are again seen. 4. Small volume ascites noted with partially imaged TIPS shunt. The above report was generated using voice recognition software. It may contain grammatical, syntax or spelling errors. Electronically signed by: Elia Ramesh M.D. 11/11/2016 10:20 AM Dictated Date/Time: 11/11/2016 10:05 AM
--- NOTE | 2016-11-11 10:52 | DIAGNOSTIC IMAGING REPORT ---
THORACIC SPINE WITHOUT HISTORY: 61 years-old Male eval for fx acute back pain status post trauma COMPARISON: CT lumbar spine of same day, CT abdomen and pelvis 10/31/2016 TECHNIQUE: Multiple axial CT images of the thoracic spine were obtained without contrast. A dose lowering technique was used consistent with the principals of JULIAN. FINDINGS: Fusion hardware at C5-C6 redemonstrated. Chronic compression deformity of L1 without retropulsion. Schmorl's nodes are seen at T12-L1. Severe intervertebral disc space narrowing noted at T7-T8 with small broad-based posterior disc osteophyte complex. Multilevel endplate spurring and facet arthropathy is seen throughout the spine with mild bone demineralization. No acute fracture or subluxation is identified. No acute rib fracture identified. No acute compression deformity. No high-grade central canal or foraminal narrowing identified. TIPS shunt is partially imaged. Embolization coils in the region of the gastrohepatic vessels noted. Distal esophageal varices are seen. Trace bilateral pleural effusions. Perihepatic ascites. Cirrhotic morphology of the liver noted. Interlobular septal thickening of the lungs suggests pulmonary edema. IMPRESSION: 1. No acute thoracic spine fracture or subluxation. 2. Multilevel end plate spurring and facet arthropathy with severe intervertebral disc space narrowing at T7-T8. 3. Trace bilateral pleural effusions with small volume intra-abdominal ascites, cirrhotic liver disease, TIPS shunt and periesophageal varices redemonstrated. The above report was generated using voice recognition software. It may contain grammatical, syntax or spelling errors. Electronically signed by: Elia Ramesh M.D. 11/11/2016 10:50 AM Dictated Date/Time: 11/11/2016 10:45 AM
--- NOTE | 2016-11-11 11:40 | DIAGNOSTIC IMAGING REPORT ---
PELVIS 1 OR 2 VIEW ROUTINE HISTORY: 61 years-old Male eval for fx acute pelvic pain status post fall. COMPARISON: Left femur radiographs 09/24/2013 TECHNIQUE: Single AP view of the pelvis FINDINGS: Fractured pedicle screws at L5 are redemonstrated. Interbody luis and screw fusion of the lower lumbar spine is present. The bones are mildly demineralized. No acute fracture or dislocation is identified. Linear lucency overlying the right superior pubic ramus is favored to be artifactual rather than a fracture. Moderate osteoarthritis of the bilateral hips. IMPRESSION: 1. Moderate bilateral hip osteoarthritis. No acute fracture or dislocation. 2. Fractured bilateral pedicle screws at L5 redemonstrated. The above report was generated using voice recognition software. It may contain grammatical, syntax or spelling errors. Electronically signed by: Elia Ramesh M.D. 11/11/2016 11:39 AM Dictated Date/Time: 11/11/2016 11:37 AM
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
== END 2016-11-11 03:05 | disposition home or self-care (01) ==
LOC: EDBD 21:31 → C.EDA 21:32
DX: M54.9 Dorsalgia, unspecified (principal); S09.90XA Unspecified injury of head, initial encounter; W01.0XXA Fall on same level from slipping, tripping and stumbling without subsequent striking against object, initial encounter; Y92.9 Unspecified place or not applicable; F41.9 Anxiety disorder, unspecified; F32.9 Major depressive disorder, single episode, unspecified; E11.9 Type 2 diabetes mellitus without complications; K72.90 Hepatic failure, unspecified without coma; E78.5 Hyperlipidemia, unspecified; E03.9 Hypothyroidism, unspecified; K75.81 Nonalcoholic steatohepatitis (NASH); Z86.711 Personal history of pulmonary embolism; G40.909 Epilepsy, unspecified, not intractable, without status epilepticus; Z79.4 Long term (current) use of insulin; Z79.899 Other long term (current) drug therapy

== ENCOUNTER 2016-11-11 17:29 | Observation (INO) | payer OTHER ==
[~2016-11-11] VITALS: Ht 182.9 cm; Wt 81.0 kg
[~2016-11-11 17:29] MED LIST changes: +RIFA550T2 PO
[2016-11-11] MEDS ORDERED: HYDROmorphone INJ 1 MG/ML SYR IV STA ×2 (17:54→20:34)
[2016-11-11 19:19] LABS: HEMATOCRIT 27.9 % (42-52); MEAN CELL VOLUME 84.8 fL (80-100); MEAN CORPUSCULAR HEMOGLOBIN 30.4 pg (25-34); MEAN CORPUSCULAR HGB CONC 35.8 g/dl (32-36); RED BLOOD COUNT 3.29 M/uL (4.7-6.1); WHITE BLOOD COUNT 4.93 K/uL (4.8-10.8)
[2016-11-11 19:41] LABS: BUN/CREATININE RATIO 13.2 (10-20); CALCIUM 8.2 mg/dl (8.5-10.1); CREATININE 0.85 mg/dl (0.60-1.40); POTASSIUM 3.7 mmol/L (3.5-5.1)
[2016-11-11 19:53] LABS: ANISOCYTOSIS PRESENT; BASO % 0.2 %; BASO ABS # 0.01 K/uL (0-0.2); COMPLETE YES; ECHINOCYTES 1+; EOS % 0.4 %; IG% 0.2 %; LYMPH % 8.9 %; LYMPH ABS # 0.44 K/uL (1.2-3.4); MEAN PLATELET VOLUME 10.4 fL (7.4-10.4); MONO % 10.5 %; NEUT % 79.8 %; PLATELET COUNT 61 K/uL (130-400); PLT ESTIMATE DECREASED
--- NOTE | 2016-11-11 20:10 | DIAGNOSTIC IMAGING REPORT ---
THORACIC SPINE 3 VIEWS ROUTINE HISTORY: 61 years-old Male eval for fx acute back pain status post fall COMPARISON: Thoracolumbar spine CT of same day, CT abdomen and pelvis 10/31/2016 TECHNIQUE: 3 views of the thoracic spine and 5 views of the lumbar spine FINDINGS: THORACIC SPINE: Bones are mildly demineralized. 12 thoracic type vertebral segments are present. Several of the upper thoracic segments are not well seen secondary to positioning. Multilevel discogenic degenerative changes and endplate spurring noted. Mild anterior wedging of T11 appears unchanged from CT abdomen and pelvis 10/31/2016. Anterior fusion hardware of the cervical spine noted. TIPS shunt redemonstrated with embolization coils in the epigastric region. LUMBAR SPINE: No compression deformity of L1 redemonstrated. Prior posterior decompression with interbody luis and screw fusion at L4-S1. Unchanged 6 mm anterolisthesis L5 on S1 with chronic fractured bilateral S1 and left L4 pedicle screws. No acute fracture or subluxation. Facet arthropathy noted at L3-L4. IVC filter noted as well as TIPS shunt and embolization coils of the epigastrium. IMPRESSION: 1. Remote compression deformity of L1. Mild anterior wedging of T11 appears unchanged from CT abdomen and pelvis 10/31/2016. No retropulsion. 2. Mild bone demineralization. 3. Posterior fusion at L4-S1 with chronic fractured pedicle screws . 4. Degenerative changes as above. The above report was generated using voice recognition software. It may contain grammatical, syntax or spelling errors. Electronically signed by: Elia Ramesh M.D. 11/11/2016 8:09 PM Dictated Date/Time: 11/11/2016 7:52 PM
[2016-11-11 22:15] VITALS: Ht 182.9 cm; Wt 81.0 kg
[2016-11-11 22:38] VITALS: BP 136/71; PULSE 91; TEMP 36.7; O2SAT 100
--- NOTE | 2016-11-11 23:21 | EMERGENCY ROOM VISIT NOTE ---
History Report prepared by Alla: Tracey Flynn Under the Supervision of: Dr. Alejandro Darby M.D. First contact with patient: 17:43 Chief Complaint: BACK PAIN Stated Complaint: LOWER BACK PAIN History of Present Illness The patient is a 61 year old male who presents to the Emergency Room with complaints of worsening lower back pain occurring this afternoon. The patient states that his pain has not gotten better since yesterday. The patient states that he was at [employer] today when he passed out. He states that he knocked over some things, but was caught by his sister and the sales woman. He denies knowing how long he had lost consciousness for, but notes he was in severe pain when he fell. He notes that he was using his walker when he fell. He describes the pain as a sharp pain. He notes he has not taken any of his Dilaudid from home because he ran out 3 days ago. He notes he is scheduled to see his PCP in 3 days. He denies having any chest pain, shortness breath or palpitations. He denies any black or bloody stools. He has been having multiple bowel movements because of the lactulose. Source of History: patient Onset: this afternoon Position: back Symptom Intensity: severe Quality: sharp Timing: worsening Modifying Factors (Relieving): other (Dilaudid) Associated Symptoms: + LOC Review of Systems See HPI for pertinent positives & negatives. A total of 10 systems reviewed and were otherwise negative. 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 (20) Syncope and collapse Surgical Problems: (1) H/O esophagogastroduodenoscopy (2) H/O knee surgery (3) S/P cervical spinal fusion (4) S/P IVC filter (5) S/P lumbar fusion (6) S/P T&A (status post tonsillectomy and adenoidectomy) Family History FH: CAD (coronary artery disease) FATHER FH: breast cancer MOTHER Social History Smoking Status: Never Smoker Alcohol Use: none Drug Use: none Marital Status: single Housing Status: lives with roommate Occupation Status: retired Current/Historical Medications Scheduled Clindamycin Hcl (Cleocin), 300 MG PO TID Escitalopram Oxalate (Lexapro), 20 MG PO DAILY Ferrous Sulfate (Kp Ferrous Sulfate), 325 MG PO BID Furosemide (Lasix), 40 MG PO DAILY Insulin Aspart (Novolog), 14 UNITS SQ TIDM Insulin Glargine (Lantus), 38 UNITS SC BID Lactobacillus Acidophilus (Lactinex), 2 TAB PO TID Lactulose (Chronulac), 20 ML PO QID Levetiractam (Levetiracetam), 500 MG PO BID Levothyroxine Sodium (Synthroid), 75 MCG PO QAM Magnesium Oxide (Mag-Ox), 400 MG PO BID Melatonin (Kp Melatonin), 2 MG PO HS Pantoprazole (Protonix), 40 MG PO BID Polyethylene Glycol 3350 (Miralax), 17 GM PO BID Pyridoxine Hcl (Vitamin B-6), 25 MG PO HS Rifaximin (Xifaxan), 550 MG PO BID Spironolactone (Aldactone), 100 MG PO BID Scheduled PRN Diphenhydramine Hcl (Benadryl), 25 MG PO BID PRN for Itching Hydromorphone Hcl (Dilaudid), 4 MG PO Q6 PRN for Pain Ondasetron Odt (Zofran Odt), 1-2 MG SL Q8 PRN for Nausea or Vomiting Triamcinolone Acet (Aristocort 0.1%), 1 APPL EXT BID PRN for dermatitis Allergies Coded Allergies: Acetaminophen (Verified Allergy, Severe, ESLD (BETANCOURT). on Liver transplant list. Cannot have APAP., 11/11/16) Morphine (Verified Allergy, Severe, RED HIVE WENT UP ARM FROM IV SITE, 11/11/16) NSAIDs (Verified Allergy, Severe, DUE TO LIVER DISEAS, 11/11/16) Penicillins (Verified Allergy, Severe, JOINT SWELLING AND FEVER, 11/11/16) Fentanyl (Verified Allergy, Intermediate, rash, 11/11/16) Levofloxacin (Verified Allergy, Intermediate, RASH, 11/11/16) pt developed erythema at site of IV injection with itching Vancomycin (Verified Allergy, Mild, HIVES, 11/11/16) HIVES Tramadol (Verified Allergy, Unknown, NOT TO TAKE WITH KEPPRA DUE TO SEIZURE RISK, 11/11/16) Physical Exam Vital Signs Date Time Temp Pulse Resp B/P (MAP) Pulse Ox O2 Delivery O2 Flow Rate FiO2 11/11/16 21:20 87 18 127/84 99 Room Air 11/11/16 19:30 93 13 131/78 98 Room Air 11/11/16 18:29 99 11/11/16 18:16 98 127/71 101 132/76 97 135/66 11/11/16 17:33 36.7 101 20 139/71 97 Room Air Physical Exam Constitutional: Vital signs reviewed. Eyes: Pupils are equal round reactive to light. Conjunctiva are noninjected. ENT: Pharynx is clear without erythema or exudate. Mucous membranes are moist. Neck supple without meningeal signs. No midline tenderness to the cervical spine. Respiratory: Clear to auscultation bilaterally. Breath sounds are equal bilaterally. Cardiovascular: Regular rate and rhythm. No rubs or gallops. GI: Soft, nondistended and nontender. Bowel sounds are present. Musculoskeletal: No peripheral edema. No hip or lower extremity tenderness. There is a bruise to the left posterior upper thigh. Mild midline tenderness to the lumbosacral spine. Integumentary: No cyanosis. Jaundice. Neurological: The patient is awake and alert. Cranial nerves II-XII are intact. Motor is 5 out of 5 all extremities. Sensation is intact to light touch all extremities. Normal speech. No pronator drift. Psychiatric: Normal affect. Medical Decision & Procedures ER Provider Diagnostic Interpretation: Radiology results as stated below per my review and the radiologist's interpretation: THORACIC SPINE 3 VIEWS ROUTINE HISTORY: 61 years-old Male eval for fx acute back pain status post fall COMPARISON: Thoracolumbar spine CT of same day, CT abdomen and pelvis 10/31/2016 TECHNIQUE: 3 views of the thoracic spine and 5 views of the lumbar spine FINDINGS: THORACIC SPINE: Bones are mildly demineralized. 12 thoracic type vertebral segments are present. Several of the upper thoracic segments are not well seen secondary to positioning. Multilevel discogenic degenerative changes and endplate spurring noted. Mild anterior wedging of T11 appears unchanged from CT abdomen and pelvis 10/31/2016. Anterior fusion hardware of the cervical spine noted. TIPS shunt redemonstrated with embolization coils in the epigastric region. LUMBAR SPINE: No compression deformity of L1 redemonstrated. Prior posterior decompression with interbody luis and screw fusion at L4-S1. Unchanged 6 mm anterolisthesis L5 on S1 with chronic fractured bilateral S1 and left L4 pedicle screws. No acute fracture or subluxation. Facet arthropathy noted at L3-L4. IVC filter noted as well as TIPS shunt and embolization coils of the epigastrium. IMPRESSION: 1. Remote compression deformity of L1. Mild anterior wedging of T11 appears unchanged from CT abdomen and pelvis 10/31/2016. No retropulsion. 2. Mild bone demineralization. 3. Posterior fusion at L4-S1 with chronic fractured pedicle screws . 4. Degenerative changes as above. The above report was generated using voice recognition software. It may contain grammatical, syntax or spelling errors. Electronically signed by: Elia Ramesh M.D. 11/11/2016 8:09 PM Dictated Date/Time: 11/11/2016 7:52 PM Laboratory Results 11/11/16 19:08 Red Blood Count 3.29, Mean Corpuscular Volume 84.8, Mean Corpuscular Hemoglobin 30.4, Mean Corpuscular Hemoglobin Concent 35.8, Mean Platelet Volume 10.4, Neutrophils (%) (Auto) 79.8, Lymphocytes (%) (Auto) 8.9, Monocytes (%) (Auto) 10.5, Eosinophils (%) (Auto) 0.4, Basophils (%) (Auto) 0.2, Neutrophils # (Auto ) 3.93, Lymphocytes # (Auto) 0.44, Monocytes # (Auto) 0.52, Eosinophils # (Auto ) 0.02, Basophils # (Auto) 0.01 11/11/16 19:08 Test 11/11/16 19:08 11/11/16 19:11 White Blood Count 4.93 K/uL (4.8-10.8) Red Blood Count 3.29 M/uL (4.7-6.1) Hemoglobin 10.0 g/dL (14.0-18.0) Hematocrit 27.9 % (42-52) Mean Corpuscular Volume 84.8 fL (80-100) Mean Corpuscular Hemoglobin 30.4 pg (25-34) Mean Corpuscular Hemoglobin Concent 35.8 g/dl (32-36) Platelet Count 61 K/uL (130-400) Mean Platelet Volume 10.4 fL (7.4-10.4) Neutrophils (%) (Auto) 79.8 % Lymphocytes (%) (Auto) 8.9 % Monocytes (%) (Auto) 10.5 % Eosinophils (%) (Auto) 0.4 % Basophils (%) (Auto) 0.2 % Neutrophils # (Auto) 3.93 K/uL (1.4-6.5) Lymphocytes # (Auto) 0.44 K/uL (1.2-3.4) Monocytes # (Auto) 0.52 K/uL (0.11-0.59) Eosinophils # (Auto) 0.02 K/uL (0-0.5) Basophils # (Auto) 0.01 K/uL (0-0.2) RDW Standard Deviation 62.9 fL (36.4-46.3) RDW Coefficient of Variation 20.5 % (11.5-14.5) Immature Granulocyte % (Auto) 0.2 % Immature Granulocyte # (Auto) 0.01 K/uL (0.00-0.02) Platelet Estimate DECREASED Anisocytosis PRESENT Echinocytes 1+ Anion Gap 10.0 mmol/L (3-11) Est Creatinine Clear Calc Drug Dose 98.9 ml/min Estimated GFR () 108.2 Estimated GFR (Non- 93.4 BUN/Creatinine Ratio 13.2 (10-20) Calcium Level 8.2 mg/dl (8.5-10.1) Bedside Troponin I < 0.030 ng/ml (0-0.045) Laboratory results as reviewed by me. Medications Administered Medications (Trade) Dose Ordered Sig/Ryan Route Start Time Stop Time Status Last Admin Dose Admin Hydromorphone HCl (Dilaudid Inj) 0.5 mg NOW STAT IV 11/11/16 17:54 11/11/16 17:56 DC 11/11/16 19:04 0.5 MG Hydromorphone HCl (Dilaudid Inj) 0.5 mg NOW STAT IV 11/11/16 20:34 11/11/16 20:35 DC 10/7/17 20:39 0.5 MG ECG Indication: syncope Rate (beats per minute): 95 Rhythm: normal sinus Findings: no acute ischemic change, no ectopy ED Course 1744: The patient was evaluated in room C11B. A complete history and physical exam was performed. 1753: Ordered Dilaudid Inj 0.5 mg IV. 1819: I talked to him about his Dilaudid prescriptions. He normally gets them from [facility] . He states that he just ran out and he has an appointment to see them on Sunday. 2031: I reevaluated the patient and he is still having back pain. 2033: Ordered Dilaudid Inj 0.5 mg IV. 2110: I reevaluated the patients and he is still in pain. I discussed the test results with him. His hemoglobin dropped and I performed a rectal exam. He has positive brown stool and no blood. 2114: I spoke with Dr. Fabian. We discussed the patient and her results. The patient will be further evaluated by her. Medical Decision This is a 61-year-old male who presents with syncope and back pain. Differential diagnosis includes acute exacerbation of chronic back pain, compression fracture, strain, vasovagal syncope, orthostatic hypotension, anemia , cardiac. I did perform a limited focused review of portions of the patient's old chart on the electronic medical record. The patient is hypertensive. He was at the ED yesterday after a fall. He had no acute fractures in his spine in a CT scan. I did evaluate the patient as noted above. Patient is presenting with a syncopal episode at a furniture store. He also complains of worsening back pain since his fall yesterday. He states that he ran out of his Dilaudid 3 days ago and cannot control his pain at home. I did find it unusual that he went to a furniture store when he had severe back pain. He is neurologically intact. I did treat him with Dilaudid IM because IV access was difficult initially. I did order and personally review the patient's x-rays of the thoracic and lumbosacral spine as described above. There is no evidence of acute fracture. I did order and review the patient's blood work as noted in the electronic medical record. His hemoglobin dropped from 10.9-10 since yesterday. Because of this I did perform a rectal examination. This showed guaiac positive brown stool without blood. He does have a history of esophageal varices. He says that he has had no hematemesis or hematochezia. Because of his single episode and drop in hemoglobin I did feel the patient should be hospitalized for repeat H&H and further care. IV access was established. He was treated with Dilaudid 0.5 mg IV. I did discuss the case with the Hospital stating corrections caseworker. [place] Drug Monitoring Program Search Results: patient reviewed within database Drug Monitoring Findings: Had 120 tablets of Dilaudid filled October 10. He has received 6 prescriptions for Dilaudid since May of this year from 5 different providers located in [facility], and [place]. Medication Reconcilliation Current Medication List: was personally reviewed by me Blood Pressure Screening Patient's blood pressure: Elevated blood pressure Will be further monitored by hospitalist. Consults Time Called: 2111 Consulting Physician: Dr. Fabian Returned Call: [address] Fabian. We discussed the patient and her results. The patient will be further evaluated by her. Impression Primary Impression: Syncope Additional Impressions: Anemia Rectal bleeding Intractable low back pain Scribe Attestation The scribe's documentation has been prepared under my direct and personally reviewed by me in its entirety. I confirm that the note above accurately reflects all work, treatment, procedures, and medical decision making performed by me. Departure Information Dispostion Being Evaluated By Hospitalist Referrals Chacha Munoz D.O. (PCP) Patient Instructions My [facility] Problem Qualifiers Primary Impression: Syncope Syncope type: unspecified Qualified Codes: R55 - Syncope and collapse Additional Impressions: Anemia Anemia type: unspecified type Qualified Codes: D64.9 - Anemia, unspecified
--- NOTE | 2016-11-11 23:30 | DIAGNOSTIC IMAGING REPORT ---
L-SPINE MIN 4 VIEWS ROUTINE HISTORY: 61 years-old Male eval for fx acute back pain status post fall COMPARISON: Thoracolumbar spine CT of same day, CT abdomen and pelvis 10/31/2016 TECHNIQUE: 3 views of the thoracic spine and 5 views of the lumbar spine FINDINGS: THORACIC SPINE: Bones are mildly demineralized. 12 thoracic type vertebral segments are present. Several of the upper thoracic segments are not well seen secondary to positioning. Multilevel discogenic degenerative changes and endplate spurring noted. Mild anterior wedging of T11 appears unchanged from CT abdomen and pelvis 10/31/2016. Anterior fusion hardware of the cervical spine noted. TIPS shunt redemonstrated with embolization coils in the epigastric region. LUMBAR SPINE: No compression deformity of L1 redemonstrated. Prior posterior decompression with interbody luis and screw fusion at L4-S1. Unchanged 6 mm anterolisthesis L5 on S1 with chronic fractured bilateral S1 and left L4 pedicle screws. No acute fracture or subluxation. Facet arthropathy noted at L3-L4. IVC filter noted as well as TIPS shunt and embolization coils of the epigastrium. IMPRESSION: 1. Remote compression deformity of L1. Mild anterior wedging of T11 appears unchanged from CT abdomen and pelvis 10/31/2016. No retropulsion. 2. Mild bone demineralization. 3. Posterior fusion at L4-S1 with chronic fractured pedicle screws . 4. Degenerative changes as above. Electronically signed by: Elia Ramesh M.D. 11/11/2016 11:29 PM Dictated Date/Time: 11/11/2016 11:27 PM
[2016-11-12] MEDS ORDERED: GLUCAGON FOR INJ 1 MG VIAL SQ PRN
[2016-11-12] MEDS ORDERED: GLUCOSE 10 TABS/TUBE PO PRN
[2016-11-12] MEDS ORDERED: DEXTROSE 50% 50 ML SYR IV PRN
[2016-11-12] MEDS ORDERED: GLUCOSE 40% GEL 15 GM TUBE PO PRN
[2016-11-12] MEDS ORDERED: POLYETHYLENE (MIRALAX) 17 GM PACK PO PRN ×2 (00:15)
[2016-11-12] MEDS ORDERED: ONDANSETRON 2MG ODT SL PRN (00:15)
--- NOTE | 2016-11-12 00:21 | History and Physical ---
History & Physical Date & Time of Service: Nov 12, 2016 at 00:05 Chief Complaint: Syncope And Collapse Primary Care Physician: Chacha Munoz D.O. History of Present Illness Source: patient, clinic records, hospital records 61 yo M with cirrhosis who is s/p TIPS last month presents with back pain after his second fall in two days. The patient states that yesterday he was rushing to get to the bathroom to have a BM as he had urgency with the lactulose he takes, and he slipped and fell. He was seen in the ER and released. Although he does report some lightheadedness yesterday, that has since resolved today. He was out furniture shopping at [employer] when he said his walker wheels came out from underneath him and he fell again on his butt. He remembers the fall completely and states that he was not having any lightheadedness, and he did fall into a bunch of furniture and knock it over. His sister was with him and became concerned because of his history and called the ambulance who picked him up and brought him here tonight. There have been no reports of blood in the stool, however, the ER provider was somewhat concerned about a poss occult bleed based on his h/o varices, h/o lightheadedness, multiple falls and slightly decrease in H/H from last night. Also, there was initially a concern for possible syncope, however, as the patient tells the story he was awake and alert the entire time and the fall was not precipitated by lightheadedness. ROS also reveals no chest pain, shortness of breath, abdominal pain, abdominal distention, nausea, vomiting, diarrhea or blood in stool. He does have some puffiness in his feet, chronic lower back pain for >1 year which concerns him, and a low appetite recently. He has a very flat abdomen today with no evidence of ascites and reports feeling well since his TIPS procedure in mid-Oct. He was hospitalized from 10/31 to 11/06 and reports feeling well since discharge. He was diachnosed with Actinomycetes bacteremia during this admission and was put on 14 days of clinda which he has been tolerating well, reporting no fevers or chills. 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 Surgical Problems: (1) H/O esophagogastroduodenoscopy Status: Resolved (2) H/O knee surgery Status: Resolved (3) S/P cervical spinal fusion Status: Resolved (4) S/P IVC filter Status: Resolved (5) S/P lumbar fusion Status: Resolved (6) S/P T&A (status post tonsillectomy and adenoidectomy) Status: Resolved (7) S/P TIPS (transjugular intrahepatic portosystemic shunt) Status: Chronic Family History FH: CAD (coronary artery disease) FATHER FH: breast cancer MOTHER Social History Smoking Status: Never Smoker Smokeless Tobacco Use: Unknown Alcohol Use: none Drug Use: none Marital Status: single Housing status: lives with roommate Occupational Status: retired Immunizations History of Influenza Vaccine: Yes Influenza Vaccine Date: Oct 21, 2014 History of Tetanus Vaccine?: Yes Tetanus Immunization Date: Mar 15, 1972 History of Pneumococcal: Yes Pneumococcal Date: Feb 05, 2009 History of Hepatitis B Vaccine: Yes Hepatitis Immunization Date: June 18, 2013 Multi-Drug Resistant Organisms History of MDRO: No Allergies Coded Allergies: Acetaminophen (Verified Allergy, Severe, ESLD (BETANCOURT). on Liver transplant list. Cannot have APAP., 11/11/16) Morphine (Verified Allergy, Severe, RED HIVE WENT UP ARM FROM IV SITE, 11/11/16) NSAIDs (Verified Allergy, Severe, DUE TO LIVER DISEAS, 11/11/16) Penicillins (Verified Allergy, Severe, JOINT SWELLING AND FEVER, 11/11/16) Fentanyl (Verified Allergy, Intermediate, rash, 11/11/16) Levofloxacin (Verified Allergy, Intermediate, RASH, 11/11/16) pt developed erythema at site of IV injection with itching Vancomycin (Verified Allergy, Mild, HIVES, 11/11/16) HIVES Tramadol (Verified Allergy, Unknown, NOT TO TAKE WITH KEPPRA DUE TO SEIZURE RISK, 11/11/16) Home Medications Scheduled Clindamycin Hcl (Cleocin), 600 MG PO TID Escitalopram Oxalate (Lexapro), 20 MG PO DAILY Ferrous Sulfate (Kp Ferrous Sulfate), 325 MG PO BID Furosemide (Lasix), 40 MG PO DAILY Insulin Aspart (Novolog), 14 UNITS SQ TIDM Insulin Glargine (Lantus), 38 UNITS SC BID Lactobacillus Acidophilus (Lactinex), 2 TAB PO TID Lactulose (Chronulac), 20 ML PO QID Levetiractam (Levetiracetam), 500 MG PO BID Levothyroxine Sodium (Synthroid), 75 MCG PO QAM Magnesium Oxide (Mag-Ox), 400 MG PO BID Melatonin (Kp Melatonin), 2 MG PO HS Pantoprazole (Protonix), 40 MG PO BID Polyethylene Glycol 3350 (Miralax), 17 GM PO BID Pyridoxine Hcl (Vitamin B-6), 25 MG PO HS Rifaximin (Xifaxan), 550 MG PO BID Spironolactone (Aldactone), 100 MG PO BID Scheduled PRN Diphenhydramine Hcl (Benadryl), 25 MG PO BID PRN for Itching Hydromorphone Hcl (Dilaudid), 4 MG PO Q6 PRN for Pain Ondasetron Odt (Zofran Odt), 1-2 MG SL Q8 PRN for Nausea or Vomiting Triamcinolone Acet (Aristocort 0.1%), 1 APPL EXT BID PRN for dermatitis Review of Systems At least ten systems were reviewed and negative except as indicated in HPI. Physical Exam Vital Signs Date Time Temp Pulse Resp B/P (MAP) Pulse Ox O2 Delivery O2 Flow Rate FiO2 11/11/16 22:15 Room Air 11/11/16 22:12 81 16 132/82 97 Room Air 11/11/16 21:20 87 18 127/84 99 Room Air 11/11/16 19:30 93 13 131/78 98 Room Air 11/11/16 18:29 99 11/11/16 18:16 98 127/71 101 132/76 97 135/66 11/11/16 17:33 36.7 101 20 139/71 97 Room Air General Appearance: WD/WN, no apparent distress Head: normocephalic, atraumatic Eyes: normal inspection, PERRL, sclerae normal ENT: hearing grossly normal Neck: trachea midline Respiratory/Chest: lungs clear, normal breath sounds, no respiratory distress, no accessory muscle use Cardiovascular: regular rate, rhythm, no edema, no gallop, no JVD, no murmur, normal peripheral pulses Abdomen/GI: normal bowel sounds, non tender, soft, + hernia (umbilical hernia) Back: + pertinent finding (some superficial abrasions midline in lower thoracic area over the SP, small 4cm ecchymotic area just lateral to these abrasions. 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 ) Diagnostics Laboratory Results 11/11/16 19:08 Red Blood Count 3.29, Mean Corpuscular Volume 84.8, Mean Corpuscular Hemoglobin 30.4, Mean Corpuscular Hemoglobin Concent 35.8, Mean Platelet Volume 10.4, Neutrophils (%) (Auto) 79.8, Lymphocytes (%) (Auto) 8.9, Monocytes (%) (Auto) 10.5, Eosinophils (%) (Auto) 0.4, Basophils (%) (Auto) 0.2, Neutrophils # (Auto ) 3.93, Lymphocytes # (Auto) 0.44, Monocytes # (Auto) 0.52, Eosinophils # (Auto ) 0.02, Basophils # (Auto) 0.01 11/11/16 19:08 Test 11/11/16 19:08 11/11/16 19:11 11/11/16 23:52 White Blood Count 4.93 K/uL (4.8-10.8) Red Blood Count 3.29 M/uL (4.7-6.1) Hemoglobin 10.0 g/dL (14.0-18.0) Hematocrit 27.9 % (42-52) Mean Corpuscular Volume 84.8 fL (80-100) Mean Corpuscular Hemoglobin 30.4 pg (25-34) Mean Corpuscular Hemoglobin Concent 35.8 g/dl (32-36) Platelet Count 61 K/uL (130-400) Mean Platelet Volume 10.4 fL (7.4-10.4) Neutrophils (%) (Auto) 79.8 % Lymphocytes (%) (Auto) 8.9 % Monocytes (%) (Auto) 10.5 % Eosinophils (%) (Auto) 0.4 % Basophils (%) (Auto) 0.2 % Neutrophils # (Auto) 3.93 K/uL (1.4-6.5) Lymphocytes # (Auto) 0.44 K/uL (1.2-3.4) Monocytes # (Auto) 0.52 K/uL (0.11-0.59) Eosinophils # (Auto) 0.02 K/uL (0-0.5) Basophils # (Auto) 0.01 K/uL (0-0.2) RDW Standard Deviation 62.9 fL (36.4-46.3) RDW Coefficient of Variation 20.5 % (11.5-14.5) Immature Granulocyte % (Auto) 0.2 % Immature Granulocyte # (Auto) 0.01 K/uL (0.00-0.02) Platelet Estimate DECREASED Anisocytosis PRESENT Echinocytes 1+ Anion Gap 10.0 mmol/L (3-11) Est Creatinine Clear Calc Drug Dose 98.9 ml/min Estimated GFR () 108.2 Estimated GFR (Non- 93.4 BUN/Creatinine Ratio 13.2 (10-20) Calcium Level 8.2 mg/dl (8.5-10.1) Bedside Troponin I < 0.030 ng/ml (0-0.045) Date/Time Source Procedure Growth Status 11/11/16 22:03 Blood Blood Culture Pending Received Results Past 24 Hours Test 11/11/16 19:08 11/11/16 19:11 11/11/16 23:52 Range/Units White Blood Count 4.93 4.8-10.8 K/uL Red Blood Count 3.29 4.7-6.1 M/uL Hemoglobin 10.0 14.0-18.0 g/dL Hematocrit 27.9 42-52 % Mean Corpuscular Volume 84.8 80-100 fL Mean Corpuscular Hemoglobin 30.4 25-34 pg Mean Corpuscular Hemoglobin Concent 35.8 32-36 g/dl Platelet Count 61 130-400 K/uL Mean Platelet Volume 10.4 7.4-10.4 fL Neutrophils (%) (Auto) 79.8 % Lymphocytes (%) (Auto) 8.9 % Monocytes (%) (Auto) 10.5 % Eosinophils (%) (Auto) 0.4 % Basophils (%) (Auto) 0.2 % Neutrophils # (Auto) 3.93 1.4-6.5 K/uL Lymphocytes # (Auto) 0.44 1.2-3.4 K/uL Monocytes # (Auto) 0.52 0.11-0.59 K/uL Eosinophils # (Auto) 0.02 0-0.5 K/uL Basophils # (Auto) 0.01 0-0.2 K/uL RDW Standard Deviation 62.9 36.4-46.3 fL RDW Coefficient of Variation 20.5 11.5-14.5 % Immature Granulocyte % (Auto) 0.2 % Immature Granulocyte # (Auto) 0.01 0.00-0.02 K/uL Platelet Estimate DECREASED Anisocytosis PRESENT Echinocytes 1+ Sodium Level 139 136-145 mmol/L Potassium Level 3.7 3.5-5.1 mmol/L Chloride Level 108 98-107 mmol/L Carbon Dioxide Level 21 21-32 mmol/L Anion Gap 10.0 3-11 mmol/L Blood Urea Nitrogen 11 7-18 mg/dl Creatinine 0.85 0.60-1.40 mg/dl Est Creatinine Clear Calc Drug Dose 98.9 ml/min Estimated GFR () 108.2 Estimated GFR (Non- 93.4 BUN/Creatinine Ratio 13.2 10-20 Random Glucose 204 70-99 mg/dl Calcium Level 8.2 8.5-10.1 mg/dl Bedside Troponin I < 0.030 0-0.045 ng/ml Microbiology Results 11/11/16 Blood Culture, Received Pending 11/11/16 Blood Culture, Received Pending Diagnostic Radiology L-SPINE MIN 4 VIEWS ROUTINE HISTORY: 61 years-old Male eval for fx acute back pain status post fall COMPARISON: Thoracolumbar spine CT of same day, CT abdomen and pelvis 10/31/2016 TECHNIQUE: 3 views of the thoracic spine and 5 views of the lumbar spine FINDINGS: THORACIC SPINE: Bones are mildly demineralized. 12 thoracic type vertebral segments are present. Several of the upper thoracic segments are not well seen secondary to positioning. Multilevel discogenic degenerative changes and endplate spurring noted. Mild anterior wedging of T11 appears unchanged from CT abdomen and pelvis 10/31/2016. Anterior fusion hardware of the cervical spine noted. TIPS shunt redemonstrated with embolization coils in the epigastric region. LUMBAR SPINE: No compression deformity of L1 redemonstrated. Prior posterior decompression with interbody luis and screw fusion at L4-S1. Unchanged 6 mm anterolisthesis L5 on S1 with chronic fractured bilateral S1 and left L4 pedicle screws. No acute fracture or subluxation. Facet arthropathy noted at L3-L4. IVC filter noted as well as TIPS shunt and embolization coils of the epigastrium. IMPRESSION: 1. Remote compression deformity of L1. Mild anterior wedging of T11 appears unchanged from CT abdomen and pelvis 10/31/2016. No retropulsion. 2. Mild bone demineralization. 3. Posterior fusion at L4-S1 with chronic fractured pedicle screws . 4. Degenerative changes as above. THORACIC SPINE 3 VIEWS ROUTINE HISTORY: 61 years-old Male eval for fx acute back pain status post fall COMPARISON: Thoracolumbar spine CT of same day, CT abdomen and pelvis 10/31/2016 TECHNIQUE: 3 views of the thoracic spine and 5 views of the lumbar spine FINDINGS: THORACIC SPINE: Bones are mildly demineralized. 12 thoracic type vertebral segments are present. Several of the upper thoracic segments are not well seen secondary to positioning. Multilevel discogenic degenerative changes and endplate spurring noted. Mild anterior wedging of T11 appears unchanged from CT abdomen and pelvis 10/31/2016. Anterior fusion hardware of the cervical spine noted. TIPS shunt redemonstrated with embolization coils in the epigastric region. LUMBAR SPINE: No compression deformity of L1 redemonstrated. Prior posterior decompression with interbody luis and screw fusion at L4-S1. Unchanged 6 mm anterolisthesis L5 on S1 with chronic fractured bilateral S1 and left L4 pedicle screws. No acute fracture or subluxation. Facet arthropathy noted at L3-L4. IVC filter noted as well as TIPS shunt and embolization coils of the epigastrium. IMPRESSION: 1. Remote compression deformity of L1. Mild anterior wedging of T11 appears unchanged from CT abdomen and pelvis 10/31/2016. No retropulsion. 2. Mild bone demineralization. 3. Posterior fusion at L4-S1 with chronic fractured pedicle screws . 4. Degenerative changes as above. Normal EKG Impression Assessment and Plan 61 yo M presents with back pain s/p mechanical fall in a store. 1. s/p mechanical fall with acute worsening of chronic back pain. This is the second mechanical fall in two days. Ambulates with rolling walker. Imaging in ER reveals chronic compression fracture and post-surgical findings without acute fracture or subluxation. Cont Dilaudid PO per home regimen. He did receive some IV dilaudid in the ER tonight. 2. BETANCOURT cirrhosis with known esophageal varices-compensated, ascites resolved since TIPS placed, continues on diuretics. Daily weights. Doing very well. 3. Anemia-of chronic disease. Mild drop in H/H from yesterday and FOBT positive in ER, however, patient denies any GI bleeding and is supposed to undergo a capsule endoscopy next week with Dr. Culver per his report. 4. 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 Chronic lower back pain-cont PO dilaudid 6. DMII with complication of neuropathy-continues on insulin, says sugars are not well controlled. Cont ISS/glargine with carb coverage. 7. Wounds-uncertain etiology of superficial abrasions, poss secondary to recent falls. Will request wound care consult. 8. Hypothyroidism-cont current dose of Synthroid. 9. Seizure disorder-stable, cont Keppra DVT proph-contraindicated in setting of thrombocytopenia Full Code Dispo-likely to home in am. Yvonne Fabian DO [facility] Hospitalist Level of Care Telemetry Advanced Directives Existing Living Will: Yes Existing Power of Securities Sales Associate: Yes Resuscitation Status FULL RESUSCITATION VTE Prophylaxis VTE Risk Assessment Done? Y/N: Yes Risk Level: Moderate Given or contraindicated: Contraindicated
[2016-11-12] MEDS ORDERED: IV FLUIDS COMPLETED PRN (00:30)
[2016-11-12] MEDS: ONDANSETRON INJ 2 MG/ML 2 ML VIAL IV PRN (01:02)
[2016-11-12] MEDS: HYDROmorphone HCL 2 MG TAB PO PRN ×4 (01:02→20:14)
[2016-11-12 01:25] LABS: INR 1.8 (0.9-1.1); PROTHROMBIN TIME (PATIENT) 19.9 SECONDS (9.0-12.0)
[2016-11-12] MEDS ORDERED: INFLUENZA ADMINISTRATION CHARGE ONE (04:30)
[2016-11-12] MEDS ORDERED: INFLUENZA VIRUS QUAD VACCINE 0.5 ML SYR IM. ONE (04:30)
[2016-11-12 05:11] VITALS: BP 130/66; PULSE 102; TEMP 36.9; O2SAT 96
[2016-11-12] MEDS: LEVOTHYROXINE 75 MCG TAB PO SCH (06:00)
[2016-11-12 07:42] VITALS: BP 114/62; PULSE 86; TEMP 36.6; O2SAT 96
[2016-11-12 07:54] LABS: HEMATOCRIT 27.2 % (42-52); MEAN CELL VOLUME 86.3 fL (80-100); MEAN CORPUSCULAR HEMOGLOBIN 30.8 pg (25-34); MEAN CORPUSCULAR HGB CONC 35.7 g/dl (32-36); RED BLOOD COUNT 3.15 M/uL (4.7-6.1); WHITE BLOOD COUNT 4.97 K/uL (4.8-10.8)
[2016-11-12 08:08] LABS: MEAN PLATELET VOLUME 10.1 fL (7.4-10.4); PLATELET COUNT 55 K/uL (130-400)
[2016-11-12] MEDS: ESCITALOPRAM OXALATE 20 MG TAB PO SCH (08:23)
[2016-11-12] MEDS: SPIRONOLACTONE 100 MG TAB PO SCH ×2 (08:23→17:00)
[2016-11-12] MEDS: RIFAXIMIN TAB 550 MG TAB PO SCH ×2 (08:23→20:13)
[2016-11-12] MEDS: PANTOprazole SOD 40 MG TAB PO SCH ×2 (08:23→20:13)
[2016-11-12] MEDS: FERROUS SULFATE 325 MG TAB PO SCH ×2 (08:24→17:00)
[2016-11-12] MEDS: MAGNESIUM OXIDE 400 MG TAB PO SCH ×2 (08:24→20:13)
[2016-11-12] MEDS: LEVETIRACETAM 500 MG TAB PO SCH ×2 (08:24→20:13)
[2016-11-12] MEDS: FUROSEMIDE 40 MG TAB PO SCH (08:24)
[2016-11-12] MEDS: CLINDAMYCIN HCL 150 MG CAP PO SCH ×3 (08:24→20:14)
[2016-11-12] MEDS: LACTOBACILLUS ACIDOPHILUS (FLORANEX) TAB PO SCH ×3 (08:24→20:13)
[2016-11-12] MEDS: LACTULOSE SYRUP 10 GM/15 ML BTL 473 ML PO SCH ×4 (08:25→20:14)
[2016-11-12] MEDS: INSULIN ASPART 100 UNITS/ML 3 ML PEN SC SCH ×4 (08:31→20:23)
[2016-11-12] MEDS: INSULIN GLARGINE SOLOSTAR 100 UNITS/ML 3 ML PEN SC SCH ×2 (08:31→20:24)
[2016-11-12 11:26] VITALS: BP 115/46; PULSE 94; TEMP 36.8; O2SAT 97
[2016-11-12 14:56] VITALS: BP 109/64; PULSE 82; TEMP 36.7; O2SAT 94
--- NOTE | 2016-11-12 15:06 | Progress Note ---
Internal Med Progress Note Date of Service: Nov 12, 2016. Provider Documentation: SUBJECTIVE: The patient was seen and examined Lying comfortably in bed Says that has had a fall with LOC for 2 minutes OBJECTIVE: Vital Signs-as noted below Exam: General-No distress Eyes-normal ENT-normal Neck-supple Lungs-Clear ro ausucltate bilaterally Heart-Regular,no murmur appreciated Abdomen-Benign,not distended,no masses,bowel sound present Extremities-NO edema Neuro-AAOx3 Lab data as noted below. ASSESSMENT & PLAN: 61 yo M presents with back pain s/p mechanical fall in a store. s/p mechanical fall with acute worsening of chronic back pain. This is the second mechanical fall in two days. Ambulates with rolling walker. Imaging in ER reveals chronic compression fracture and post-surgical findings without acute fracture or subluxation. Cont Dilaudid PO per home regimen. He did receive some IV Dilaudid in the ER tonight. Doubtful 2 minutes of LOC as reported to me no arrhythmia in monitor Denies any symptoms No confusion BETANCOURT cirrhosis with known esophageal varices-compensated, ascites resolved since TIPS placed, continues on diuretics. Daily weights. Doing very well. No more Ascites Anemia-of chronic disease. Mild drop in H/H from yesterday and FOBT positive in ER, however, patient denies any GI bleeding and is supposed to undergo a capsule endoscopy next week with Dr. Culver per his report. Thrombocytopenia 2/2 cirrhosis-chronic Chronic lower back pain-cont PO dilaudid Will not increase pain medication DMII with complication of neuropathy-continues on insulin, says sugars are not well controlled. Cont ISS/glargine with carb coverage. Wounds-uncertain etiology of superficial abrasions, poss secondary to recent falls. Will request wound care consult. Hypothyroidism-cont current dose of Synthroid. Seizure disorder-stable, cont Keppra No acute issue DVT proph-contraindicated in setting of thrombocytopenia Full Code Dispo-likely to home in am. PT/OT Vital Signs: Date Time Temp Pulse Resp B/P (MAP) Pulse Ox O2 Delivery O2 Flow Rate FiO2 11/12/16 14:56 36.7 82 16 109/64 (79) 94 Room Air 11/12/16 12:29 Room Air 11/12/16 11:26 36.8 94 16 115/46 (69) 97 Room Air 11/12/16 08:15 Room Air 11/12/16 07:42 36.6 86 16 114/62 (79) 96 Room Air 11/12/16 05:11 36.9 102 18 130/66 (87) 96 Room Air 11/12/16 04:00 Room Air 11/12/16 00:00 Room Air 11/11/16 22:38 36.7 91 18 136/71 (92) 100 Room Air 11/11/16 22:15 Room Air 11/11/16 22:12 81 16 132/82 97 Room Air 11/11/16 21:20 87 18 127/84 99 Room Air 11/11/16 19:30 93 13 131/78 98 Room Air 11/11/16 18:29 99 11/11/16 18:16 98 127/71 101 132/76 97 135/66 11/11/16 17:33 36.7 101 20 139/71 97 Room Air Lab Results: Results Past 24 Hours Test 11/11/16 19:08 11/11/16 19:11 11/12/16 00:47 11/12/16 06:37 Range/Units White Blood Count 4.93 4.97 4.8-10.8 K/uL Red Blood Count 3.29 3.15 4.7-6.1 M/uL Hemoglobin 10.0 9.7 14.0-18.0 g/dL Hematocrit 27.9 27.2 42-52 % Mean Corpuscular Volume 84.8 86.3 80-100 fL Mean Corpuscular Hemoglobin 30.4 30.8 25-34 pg Mean Corpuscular Hemoglobin Concent 35.8 35.7 32-36 g/dl Platelet Count 61 55 130-400 K/uL Mean Platelet Volume 10.4 10.1 7.4-10.4 fL Neutrophils (%) (Auto) 79.8 % Lymphocytes (%) (Auto) 8.9 % Monocytes (%) (Auto) 10.5 % Eosinophils (%) (Auto) 0.4 % Basophils (%) (Auto) 0.2 % Neutrophils # (Auto) 3.93 1.4-6.5 K/uL Lymphocytes # (Auto) 0.44 1.2-3.4 K/uL Monocytes # (Auto) 0.52 0.11-0.59 K/uL Eosinophils # (Auto) 0.02 0-0.5 K/uL Basophils # (Auto) 0.01 0-0.2 K/uL RDW Standard Deviation 62.9 66.4 36.4-46.3 fL RDW Coefficient of Variation 20.5 21.1 11.5-14.5 % Immature Granulocyte % (Auto) 0.2 % Immature Granulocyte # (Auto) 0.01 0.00-0.02 K/uL Platelet Estimate DECREASED Anisocytosis PRESENT Echinocytes 1+ Sodium Level 139 136-145 mmol/L Potassium Level 3.7 3.5-5.1 mmol/L Chloride Level 108 98-107 mmol/L Carbon Dioxide Level 21 21-32 mmol/L Anion Gap 10.0 3-11 mmol/L Blood Urea Nitrogen 11 7-18 mg/dl Creatinine 0.85 0.60-1.40 mg/dl Est Creatinine Clear Calc Drug Dose 98.9 ml/min Estimated GFR () 108.2 Estimated GFR (Non- 93.4 BUN/Creatinine Ratio 13.2 10-20 Random Glucose 204 70-99 mg/dl Calcium Level 8.2 8.5-10.1 mg/dl Bedside Troponin I < 0.030 0-0.045 ng/ml Prothrombin Time 19.9 9.0-12.0 SECONDS Prothromb Time International Ratio 1.8 0.9-1.1 Vitamin B12 Level 1597 211-911 pg/mL 25-Hydroxy Vitamin D Total 13.4 30-100 ng/ml Folate 10.15 >5.38 ng/mL Thyroid Stimulating Hormone (TSH) 5.720 0.300-4.500 uIu/ml Test 11/12/16 07:29 11/12/16 11:36 Range/Units Bedside Glucose 111 191 70-99 mg/dl Microbiology Results 11/11/16 Blood Culture, Received Pending 11/11/16 Blood Culture, Received Pending
[2016-11-12 20:05] VITALS: BP 128/72; PULSE 91; TEMP 36.8; O2SAT 99
[2016-11-12] MEDS: PYRIDOXINE HCL 50 MG TAB PO SCH (20:13)
[2016-11-12] MEDS ORDERED: MELATONIN 2 MG PO SCH (21:00)
[2016-11-13] VITALS (8 sets, daily range): BP systolic 107–121; BP diastolic 51–71; PULSE 86–95; TEMP 36.4–36.9; O2SAT 95–97
[2016-11-13] MEDS: LEVOTHYROXINE 75 MCG TAB PO SCH (05:55)
[2016-11-13] MEDS: LACTULOSE SYRUP 10 GM/15 ML BTL 473 ML PO SCH ×4 (08:23→20:45)
[2016-11-13] MEDS: CLINDAMYCIN HCL 150 MG CAP PO SCH ×3 (08:24→20:45)
[2016-11-13] MEDS: ESCITALOPRAM OXALATE 20 MG TAB PO SCH (08:24)
[2016-11-13] MEDS: PANTOprazole SOD 40 MG TAB PO SCH ×2 (08:25→20:46)
[2016-11-13] MEDS: FERROUS SULFATE 325 MG TAB PO SCH ×2 (08:25→17:15)
[2016-11-13] MEDS: LACTOBACILLUS ACIDOPHILUS (FLORANEX) TAB PO SCH ×3 (08:25→20:45)
[2016-11-13] MEDS: RIFAXIMIN TAB 550 MG TAB PO SCH ×2 (08:25→20:46)
[2016-11-13] MEDS: MAGNESIUM OXIDE 400 MG TAB PO SCH ×2 (08:26→20:46)
[2016-11-13] MEDS: LEVETIRACETAM 500 MG TAB PO SCH ×2 (08:26→20:45)
[2016-11-13] MEDS: FUROSEMIDE 40 MG TAB PO SCH (08:26)
[2016-11-13] MEDS: SPIRONOLACTONE 100 MG TAB PO SCH ×2 (08:26→17:15)
[2016-11-13] MEDS: INSULIN ASPART 100 UNITS/ML 3 ML PEN SC SCH ×4 (08:32→20:49)
[2016-11-13] MEDS: INSULIN GLARGINE SOLOSTAR 100 UNITS/ML 3 ML PEN SC SCH ×2 (08:33→20:50)
[2016-11-13] MEDS: HYDROmorphone HCL 2 MG TAB PO PRN ×3 (08:40→22:56)
[2016-11-13] MEDS ORDERED: ERGOCALCIFEROL 50,000 INTER.UNIT CAP PO ONE (09:16)
[2016-11-13 10:09] LABS: HEMATOCRIT 27.6 % (42-52); MEAN CELL VOLUME 87.9 fL (80-100); MEAN CORPUSCULAR HEMOGLOBIN 30.3 pg (25-34); MEAN CORPUSCULAR HGB CONC 34.4 g/dl (32-36); RED BLOOD COUNT 3.14 M/uL (4.7-6.1); WHITE BLOOD COUNT 4.48 K/uL (4.8-10.8)
[2016-11-13 10:15] LABS: MEAN PLATELET VOLUME 10.2 fL (7.4-10.4); PLATELET COUNT 45 K/uL (130-400)
[2016-11-13 10:40] LABS: BUN/CREATININE RATIO 9.9 (10-20); CALCIUM 7.7 mg/dl (8.5-10.1); CREATININE 0.9 mg/dl (0.60-1.40); MAGNESIUM 1.9 mg/dl (1.8-2.4); POTASSIUM 3.9 mmol/L (3.5-5.1)
[2016-11-13] MEDS: ONDANSETRON INJ 2 MG/ML 2 ML VIAL IV PRN ×2 (12:19→20:53)
--- NOTE | 2016-11-13 16:56 | Progress Note ---
Internal Med Progress Note Date of Service: Nov 13, 2016. Provider Documentation: SUBJECTIVE: The patient was seen and examined Lying comfortably in bed Says that has had a fall with LOC for 2 minutes Will get PT/OT OBJECTIVE: Vital Signs-as noted below Exam: General-No distress Eyes-normal ENT-normal Neck-supple Lungs-Clear ro ausucltate bilaterally Heart-Regular,no murmur appreciated Abdomen-Benign,not distended,no masses,bowel sound present Extremities-NO edema Neuro-AAOx3 Lab data as noted below. ASSESSMENT & PLAN: 61 yo M presents with back pain s/p mechanical fall in a store. s/p mechanical fall with acute worsening of chronic back pain. This is the second mechanical fall in two days. Ambulates with rolling walker. Imaging in ER reveals chronic compression fracture and post-surgical findings without acute fracture or subluxation. Cont Dilaudid PO per home regimen. He did receive some IV Dilaudid in the ER tonight. Doubtful 2 minutes of LOC as reported to me no arrhythmia in monitor Denies any symptoms No confusion Clinically a lot better Complains of Black stool since last night Will check CBC in AM BETANCOURT cirrhosis with known esophageal varices-compensated, ascites resolved since TIPS placed, continues on diuretics. Daily weights. Doing very well. No more Ascites NO Encephalopathy Anemia-of chronic disease. Mild drop in H/H from yesterday and FOBT positive in ER, however, patient denies any GI bleeding and is supposed to undergo a capsule endoscopy next week with Dr. Culver per his report. 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 Cont ISS/glargine with carb coverage. Wounds-uncertain etiology of superficial abrasions, poss secondary to recent falls. Will request wound care consult. Hypothyroidism-cont current dose of Synthroid. Seizure disorder-stable, cont Keppra No acute issue DVT proph-contraindicated in setting of thrombocytopenia Full Code Dispo-likely to home in am. PT/OT Vital Signs: Date Time Temp Pulse Resp B/P (MAP) Pulse Ox O2 Delivery O2 Flow Rate FiO2 11/13/16 16:00 Room Air 11/13/16 15:43 36.4 90 18 112/70 (84) 97 Room Air 11/13/16 12:00 95 Room Air 11/13/16 11:25 36.8 94 16 111/51 (71) 95 Room Air 11/13/16 08:00 95 Room Air 11/13/16 07:22 36.7 87 16 108/57 (74) 95 Room Air 11/13/16 04:26 36.8 88 16 107/60 (76) 95 Room Air 11/13/16 04:00 Room Air 11/13/16 00:09 36.8 86 16 114/63 (80) 97 Room Air 11/13/16 00:00 Room Air 11/12/16 20:05 36.8 91 18 128/72 (90) 99 Room Air 11/12/16 20:00 Room Air Lab Results: Results Past 24 Hours Test 11/12/16 20:11 11/13/16 07:34 11/13/16 09:50 11/13/16 09:51 Range/Units Bedside Glucose 184 135 70-99 mg/dl White Blood Count 4.48 4.8-10.8 K/uL Red Blood Count 3.14 4.7-6.1 M/uL Hemoglobin 9.5 14.0-18.0 g/dL Hematocrit 27.6 42-52 % Mean Corpuscular Volume 87.9 80-100 fL Mean Corpuscular Hemoglobin 30.3 25-34 pg Mean Corpuscular Hemoglobin Concent 34.4 32-36 g/dl RDW Standard Deviation 69.1 36.4-46.3 fL RDW Coefficient of Variation 21.4 11.5-14.5 % Platelet Count 45 130-400 K/uL Mean Platelet Volume 10.2 7.4-10.4 fL Sodium Level 140 136-145 mmol/L Potassium Level 3.9 3.5-5.1 mmol/L Chloride Level 108 98-107 mmol/L Carbon Dioxide Level 26 21-32 mmol/L Anion Gap 6.0 3-11 mmol/L Blood Urea Nitrogen 9 7-18 mg/dl Creatinine 0.90 0.60-1.40 mg/dl Est Creatinine Clear Calc Drug Dose 93.4 ml/min Estimated GFR () 105.7 Estimated GFR (Non- 91.2 BUN/Creatinine Ratio 9.9 10-20 Random Glucose 191 70-99 mg/dl Calcium Level 7.7 8.5-10.1 mg/dl Magnesium Level 1.9 1.8-2.4 mg/dl Test 11/13/16 11:36 11/13/16 16:39 Range/Units Bedside Glucose 217 204 70-99 mg/dl
[2016-11-13] MEDS: PYRIDOXINE HCL 50 MG TAB PO SCH (20:46)
[2016-11-14 00:06] VITALS: BP 116/58; PULSE 90; TEMP 37; O2SAT 96
[2016-11-14 04:00] VITALS: BP 152/68; PULSE 102; TEMP 36.9; O2SAT 97
[2016-11-14] MEDS: HYDROmorphone HCL 2 MG TAB PO PRN ×3 (04:57→18:25)
[2016-11-14] MEDS: LEVOTHYROXINE 75 MCG TAB PO SCH (05:03)
[2016-11-14 07:22] VITALS: BP 111/57; PULSE 92; TEMP 36.7; O2SAT 97
[2016-11-14] MEDS: ESCITALOPRAM OXALATE 20 MG TAB PO SCH (07:42)
[2016-11-14] MEDS: CLINDAMYCIN HCL 150 MG CAP PO SCH ×3 (07:42→21:16)
[2016-11-14] MEDS: LACTOBACILLUS ACIDOPHILUS (FLORANEX) TAB PO SCH ×3 (07:42→21:17)
[2016-11-14] MEDS: FERROUS SULFATE 325 MG TAB PO SCH ×2 (07:42→17:28)
[2016-11-14] MEDS: FUROSEMIDE 40 MG TAB PO SCH (07:43)
[2016-11-14] MEDS: SPIRONOLACTONE 100 MG TAB PO SCH ×2 (07:43→17:28)
[2016-11-14] MEDS: RIFAXIMIN TAB 550 MG TAB PO SCH ×2 (07:43→21:15)
[2016-11-14] MEDS: MAGNESIUM OXIDE 400 MG TAB PO SCH ×2 (07:43→21:15)
[2016-11-14] MEDS: LEVETIRACETAM 500 MG TAB PO SCH ×2 (07:43→21:15)
[2016-11-14] MEDS: LACTULOSE SYRUP 10 GM/15 ML BTL 473 ML PO SCH ×4 (07:43→21:14)
[2016-11-14] MEDS: PANTOprazole SOD 40 MG TAB PO SCH ×2 (07:43→21:17)
[2016-11-14 08:08] LABS: HEMATOCRIT 28.9 % (42-52); MEAN CELL VOLUME 87.6 fL (80-100); MEAN CORPUSCULAR HEMOGLOBIN 29.7 pg (25-34); MEAN CORPUSCULAR HGB CONC 33.9 g/dl (32-36); WHITE BLOOD COUNT 5.53 K/uL (4.8-10.8)
[2016-11-14 08:11] LABS: MEAN PLATELET VOLUME 10.5 fL (7.4-10.4); PLATELET COUNT 47 K/uL (130-400)
[2016-11-14] MEDS: INSULIN ASPART 100 UNITS/ML 3 ML PEN SC SCH ×4 (08:12→21:13)
[2016-11-14] MEDS: INSULIN GLARGINE SOLOSTAR 100 UNITS/ML 3 ML PEN SC SCH ×2 (08:13→21:14)
[2016-11-14 08:47] LABS: BUN/CREATININE RATIO 11.9 (10-20); CALCIUM 7.9 mg/dl (8.5-10.1); CREATININE 0.7 mg/dl (0.60-1.40)
[2016-11-14 11:52] VITALS: BP 99/62; PULSE 89; TEMP 36.7; O2SAT 96
[2016-11-14] MEDS: ONDANSETRON INJ 2 MG/ML 2 ML VIAL IV PRN (12:17)
--- NOTE | 2016-11-14 12:42 | Progress Note ---
Internal Med Progress Note Date of Service: Nov 14, 2016. Provider Documentation: SUBJECTIVE: The patient was seen and examined Lying comfortably in bed Says that has had a fall with LOC for 2 minutes Bowel moved this morning OBJECTIVE: Vital Signs-as noted below Exam: General-No distress at rest Eyes-normal ENT-normal Neck-supple Lungs-Clear ro ausucltate bilaterally Heart-Regular,no murmur appreciated Abdomen-Benign,not distended,no masses,bowel sound present Extremities-NO edema Neuro-AAOx3 Lab data as noted below. ASSESSMENT & PLAN: 61 yo M presents with back pain s/p mechanical fall in a store. s/p mechanical fall with acute worsening of chronic back pain. This is the second mechanical fall in two days. Ambulates with rolling walker. Imaging in ER reveals chronic compression fracture and post-surgical findings without acute fracture or subluxation. Cont Dilaudid PO per home regimen. He did receive some IV Dilaudid in the ER tonight. Doubtful 2 minutes of LOC as reported to me no arrhythmia in monitor Clinically a lot better Complains of Black stool since admission Will check CBC in AM-Hb has not dropped If stable ,will discharge tomorrow morning BETANCOURT cirrhosis with known esophageal varices-compensated, ascites resolved since TIPS placed, continues on diuretics. Daily weights. Doing very well. No more Ascites No Encephalopathy and or confusion Anemia-of chronic disease. Mild drop in H/H from yesterday and FOBT positive in ER, however, patient denies any GI bleeding and is supposed to undergo a capsule endoscopy next week with Dr. Culver per his report. Check CBC-Hb stable Thrombocytopenia 2/2 cirrhosis-chronic Chronic lower back pain-cont PO Dilaudid Will not increase pain medication DMII with complication of neuropathy-continues on insulin, says sugars are not well controlled. Cont ISS/glargine with carb coverage. No acute issue Wounds-uncertain etiology of superficial abrasions, poss secondary to recent falls. Will request wound care consult. Hypothyroidism-cont current dose of Synthroid. Seizure disorder-stable, cont Keppra No acute issue DVT proph-contraindicated in setting of thrombocytopenia Full Code Dispo-likely to home in am. PT/OT Vital Signs: Date Time Temp Pulse Resp B/P (MAP) Pulse Ox O2 Delivery O2 Flow Rate FiO2 11/14/16 12:00 Room Air 11/14/16 11:52 36.7 89 16 99/62 (74) 96 Room Air 11/14/16 08:00 Room Air 11/14/16 07:22 36.7 92 16 111/57 (75) 97 Room Air 11/14/16 04:00 Room Air 11/14/16 04:00 36.9 102 20 152/68 (96) 97 Room Air 11/14/16 00:06 37.0 90 20 116/58 (77) 96 Room Air 11/14/16 00:00 Room Air 11/13/16 20:21 36.9 95 18 121/71 (88) 96 Room Air 11/13/16 20:00 Room Air 11/13/16 16:00 Room Air 11/13/16 15:43 36.4 90 18 112/70 (84) 97 Room Air Lab Results: Results Past 24 Hours Test 11/13/16 16:39 11/13/16 20:07 11/14/16 07:37 11/14/16 07:38 Range/Units Bedside Glucose 204 195 156 70-99 mg/dl White Blood Count 5.53 4.8-10.8 K/uL Red Blood Count 3.30 4.7-6.1 M/uL Hemoglobin 9.8 14.0-18.0 g/dL Hematocrit 28.9 42-52 % Mean Corpuscular Volume 87.6 80-100 fL Mean Corpuscular Hemoglobin 29.7 25-34 pg Mean Corpuscular Hemoglobin Concent 33.9 32-36 g/dl RDW Standard Deviation 67.5 36.4-46.3 fL RDW Coefficient of Variation 21.1 11.5-14.5 % Platelet Count 47 130-400 K/uL Mean Platelet Volume 10.5 7.4-10.4 fL Sodium Level 139 136-145 mmol/L Potassium Level 4.0 3.5-5.1 mmol/L Chloride Level 107 98-107 mmol/L Carbon Dioxide Level 25 21-32 mmol/L Anion Gap 7.0 3-11 mmol/L Blood Urea Nitrogen 8 7-18 mg/dl Creatinine 0.70 0.60-1.40 mg/dl Est Creatinine Clear Calc Drug Dose 120.1 ml/min Estimated GFR () 117.2 Estimated GFR (Non- 101.1 BUN/Creatinine Ratio 11.9 10-20 Random Glucose 153 70-99 mg/dl Calcium Level 7.9 8.5-10.1 mg/dl Magnesium Level 2.0 1.8-2.4 mg/dl Test 11/14/16 11:44 Range/Units Bedside Glucose 220 70-99 mg/dl
[2016-11-14 15:09] VITALS: BP 105/63; PULSE 87; TEMP 36.6; O2SAT 98
[2016-11-14 19:42] VITALS: BP 107/58; PULSE 87; TEMP 36.8; O2SAT 96
[2016-11-14] MEDS: PYRIDOXINE HCL 50 MG TAB PO SCH (21:43)
[2016-11-15 00:10] VITALS: BP 101/61; PULSE 82; TEMP 36.8; O2SAT 97
[2016-11-15 04:10] VITALS: BP 100/62; PULSE 76; TEMP 36.7; O2SAT 97
[2016-11-15] MEDS: LEVOTHYROXINE 75 MCG TAB PO SCH (06:02)
[2016-11-15 07:49] VITALS: BP 110/65; PULSE 78; TEMP 36.8; O2SAT 96
[2016-11-15] MEDS: RIFAXIMIN TAB 550 MG TAB PO SCH (07:57)
[2016-11-15] MEDS: FERROUS SULFATE 325 MG TAB PO SCH (07:57)
[2016-11-15] MEDS: ESCITALOPRAM OXALATE 20 MG TAB PO SCH (07:57)
[2016-11-15] MEDS: LACTOBACILLUS ACIDOPHILUS (FLORANEX) TAB PO SCH ×2 (07:57→13:56)
[2016-11-15] MEDS: SPIRONOLACTONE 100 MG TAB PO SCH (07:57)
[2016-11-15] MEDS: HYDROmorphone HCL 2 MG TAB PO PRN (07:58)
[2016-11-15] MEDS: LACTULOSE SYRUP 10 GM/15 ML BTL 473 ML PO SCH ×2 (07:58→12:10)
[2016-11-15] MEDS: LEVETIRACETAM 500 MG TAB PO SCH (07:58)
[2016-11-15] MEDS: CLINDAMYCIN HCL 150 MG CAP PO SCH ×2 (07:58→13:56)
[2016-11-15] MEDS: FUROSEMIDE 40 MG TAB PO SCH (07:58)
[2016-11-15] MEDS: MAGNESIUM OXIDE 400 MG TAB PO SCH (07:58)
[2016-11-15] MEDS: PANTOprazole SOD 40 MG TAB PO SCH (07:58)
[2016-11-15] MEDS: ONDANSETRON INJ 2 MG/ML 2 ML VIAL IV PRN (08:05)
[2016-11-15] MEDS: INSULIN GLARGINE SOLOSTAR 100 UNITS/ML 3 ML PEN SC SCH (08:28)
[2016-11-15] MEDS: INSULIN ASPART 100 UNITS/ML 3 ML PEN SC SCH ×2 (08:28→12:12)
[2016-11-15 11:04] LABS: HEMATOCRIT 30.6 % (42-52); MEAN CELL VOLUME 86.7 fL (80-100); MEAN CORPUSCULAR HEMOGLOBIN 29.7 pg (25-34); MEAN CORPUSCULAR HGB CONC 34.3 g/dl (32-36); RED BLOOD COUNT 3.53 M/uL (4.7-6.1); WHITE BLOOD COUNT 5.19 K/uL (4.8-10.8)
[2016-11-15 11:15] LABS: MEAN PLATELET VOLUME 10.3 fL (7.4-10.4); PLATELET COUNT 54 K/uL (130-400)
[2016-11-15 11:40] LABS: BUN/CREATININE RATIO 9.3 (10-20); CALCIUM 7.9 mg/dl (8.5-10.1); CREATININE 0.76 mg/dl (0.60-1.40); POTASSIUM 4.1 mmol/L (3.5-5.1)
[2016-11-15 12:00] VITALS: BP 100/60; PULSE 80; TEMP 36.8; O2SAT 97
--- NOTE | 2016-11-15 12:01 | Progress Note ---
Internal Med Progress Note Date of Service: Nov 15, 2016. Provider Documentation: SUBJECTIVE: The patient was seen and examined Lying comfortably in bed Says that has had a fall with LOC for 2 minutes Bowel moved this morning Generally weak but no other symptoms Denies any other symptoms OBJECTIVE: Vital Signs-as noted below Exam: General-No distress at rest Eyes-normal ENT-normal Neck-supple Lungs-Clear to ausucltate bilaterally Heart-Regular,no murmur appreciated Abdomen-Benign,not distended,no masses,bowel sound present Extremities-NO edema Neuro-AAOx3 Lab data as noted below. ASSESSMENT & PLAN: 61 yo M presents with back pain s/p mechanical fall in a store. s/p mechanical fall with acute worsening of chronic back pain. This is the second mechanical fall in two days. Ambulates with rolling walker. Imaging in ER reveals chronic compression fracture and post-surgical findings without acute fracture or subluxation. Cont Dilaudid PO per home regimen. He did receive some IV Dilaudid in the ER tonight. Doubtful 2 minutes of LOC as reported to me no arrhythmia in monitor Clinically a lot better Complains of Black stool since admission Hb remains stable since admission Will discharge today BETANCOURT cirrhosis with known esophageal varices-compensated, ascites resolved since TIPS placed, continues on diuretics. Daily weights. Doing very well. No more Ascites No Encephalopathy and or confusion Advised to keep regular GI appointment Anemia-of chronic disease. Mild drop in H/H from yesterday and FOBT positive in ER, however, patient denies any GI bleeding and is supposed to undergo a capsule endoscopy next week with Dr. Culver per his report. Check CBC-Hb stable Thrombocytopenia 2/2 cirrhosis-chronic Chronic lower back pain-cont PO Dilaudid Will not increase pain medication No significant pain DMII with complication of neuropathy-continues on insulin, says sugars are not well controlled. Cont ISS/glargine with carb coverage. No acute issue Wounds-uncertain etiology of superficial abrasions, poss secondary to recent falls. Will request wound care consult. Nothing acute Hypothyroidism-cont current dose of Synthroid. Seizure disorder-stable, cont Keppra No acute issue DVT proph-contraindicated in setting of thrombocytopenia Full Code Dispo-likely to home in am. PT/OT Discharge today Vital Signs: Date Time Temp Pulse Resp B/P (MAP) Pulse Ox O2 Delivery O2 Flow Rate FiO2 11/15/16 08:00 Room Air 10/11/17 07:49 36.8 78 16 110/65 (80) 96 Room Air 11/15/16 04:10 36.7 76 18 100/62 (75) 97 Room Air 11/15/16 04:00 Room Air 11/15/16 00:10 36.8 82 18 101/61 (74) 97 Room Air 11/15/16 00:00 Room Air 11/14/16 20:00 Room Air 11/14/16 19:42 36.8 87 16 107/58 (74) 96 Room Air 11/14/16 16:00 Room Air 11/14/16 15:09 36.6 87 16 105/63 (77) 98 11/14/16 12:00 Room Air Lab Results: Results Past 24 Hours Test 11/14/16 16:33 11/14/16 20:24 11/15/16 07:36 11/15/16 10:47 Range/Units Bedside Glucose 227 240 199 70-99 mg/dl White Blood Count 5.19 4.8-10.8 K/uL Red Blood Count 3.53 4.7-6.1 M/uL Hemoglobin 10.5 14.0-18.0 g/dL Hematocrit 30.6 42-52 % Mean Corpuscular Volume 86.7 80-100 fL Mean Corpuscular Hemoglobin 29.7 25-34 pg Mean Corpuscular Hemoglobin Concent 34.3 32-36 g/dl RDW Standard Deviation 65.7 36.4-46.3 fL RDW Coefficient of Variation 20.8 11.5-14.5 % Platelet Count 54 130-400 K/uL Mean Platelet Volume 10.3 7.4-10.4 fL Sodium Level 136 136-145 mmol/L Potassium Level 4.1 3.5-5.1 mmol/L Chloride Level 105 98-107 mmol/L Carbon Dioxide Level 23 21-32 mmol/L Anion Gap 8.0 3-11 mmol/L Blood Urea Nitrogen 7 7-18 mg/dl Creatinine 0.76 0.60-1.40 mg/dl Est Creatinine Clear Calc Drug Dose 110.6 ml/min Estimated GFR () 113.3 Estimated GFR (Non- 97.8 BUN/Creatinine Ratio 9.3 10-20 Random Glucose 167 70-99 mg/dl Calcium Level 7.9 8.5-10.1 mg/dl Test 11/15/16 11:40 Range/Units Bedside Glucose 156 70-99 mg/dl
--- NOTE | 2016-11-15 13:56 | Discharge Instructions ---
Discharge Instructions Date of Service Nov 15, 2016. Admission Reason for Admission: Syncope And Collapse Discharge Discharge Diagnosis / Problem: S/P mechanical Fall without any significant injury,Cirrhosis of the Liver Discharge Goals Goal(s): Prevent Disease Progression Activity Recommendations Activity Limitations: resume your previous activity . Instructions / Follow-Up Instructions / Follow-Up Dr Trent/Alexander as directed.Please keep appointment with Dr Culver Current Hospital Diet Patient's current hospital diet: Low Sodium Diet (2gm Na), Diabetes Type 2 Diet Discharge Diet Recommended Diet: Low Sodium Diet (2gm Na), Diabetes Type 2 Diet Fluid Restriction: 1500 ml (6 cups) Pending Studies Studies pending at discharge: no Laboratory Results Hemoglobin A1c Test 10/02/16 06:54 Range/Units Estimated Average Glucose 260 mg/dl Hemoglobin A1c 10.7 H 4.5-5.6 % Medical Emergencies . Who to Call and When: Medical Emergencies: If at any time you feel your situation is an emergency, please call 911 immediately. . Non-Emergent Contact Non-Emergency issues call your: Primary Care Provider . Past History Medical & Surgical History: (1) BETANCOURT (nonalcoholic steatohepatitis) (2) Depression (3) Esophageal varices (4) DM2 (diabetes mellitus, type 2) (5) Hypothyroidism (6) End stage liver disease (7) Pulmonary embolism (8) Seizure disorder (9) Portal hypertension (10) Intractable low back pain (11) Rectal bleeding (12) Syncope (13) Syncope and collapse (14) Fall (15) S/P lumbar fusion (16) S/P cervical spinal fusion (17) S/P IVC filter (18) S/P T&A (status post tonsillectomy and adenoidectomy) (19) H/O esophagogastroduodenoscopy (20) H/O knee surgery (21) S/P TIPS (transjugular intrahepatic portosystemic shunt) . "Provider Documentation" section prepared by Ksenia Hanks. . VTE Core Measure Inpt VTE Proph given/why not?: SCD's, Contraindicated
[2016-11-15 14:16] VITALS: BP 100/60; PULSE 80; TEMP 36.8; O2SAT 97
[2016-11-20] MEDS ORDERED: ERGOCALCIFEROL 50,000 INTER.UNIT CAP PO SCH (09:00)
== END 2016-11-15 16:00 | disposition home health service (06) ==
LOC: C.EDB 17:29 → C.MED 21:35 → ENRESERV 22:01
PROVIDERS: ADMIT Hospitalist; ATTEND Internal Medicine
DX: R55 Syncope and collapse (principal); D63.8 Anemia in other chronic diseases classified elsewhere; K62.5 Hemorrhage of anus and rectum; G89.29 Other chronic pain; M54.5 Low back pain; D69.6 Thrombocytopenia, unspecified; T14.8XXA Other injury of unspecified body region, initial encounter; E78.5 Hyperlipidemia, unspecified; E11.9 Type 2 diabetes mellitus without complications; K72.90 Hepatic failure, unspecified without coma; K76.6 Portal hypertension; E03.9 Hypothyroidism, unspecified; K75.81 Nonalcoholic steatohepatitis (NASH); K55.069 Acute infarction of intestine, part and extent unspecified; G40.909 Epilepsy, unspecified, not intractable, without status epilepticus; F32.9 Major depressive disorder, single episode, unspecified; F41.9 Anxiety disorder, unspecified; Z86.711 Personal history of pulmonary embolism; Z79.4 Long term (current) use of insulin; Z79.899 Other long term (current) drug therapy; W18.30XA Fall on same level, unspecified, initial encounter; Y92.512 Supermarket, store or market as the place of occurrence of the external cause

== ENCOUNTER 2016-11-16 00:48 | Emergency (ER) | payer OTHER ==
[~2016-11-16] VITALS: Ht 182.9 cm; Wt 83.2 kg
[~2016-11-16 00:48] MED LIST changes: -XFX550 PO
[2016-11-16 01:00] VITALS: TEMP 36.7; Ht 182.9 cm; Wt 83.2 kg
[2016-11-16] MEDS: LORAZEPAM 2 MG/ML 1 ML VIAL IV STA ×2 (01:25→02:38)
--- NOTE | 2016-11-16 01:25 | EMERGENCY ROOM VISIT NOTE ---
History Report prepared by Alla: Cara Escobedo Under the Supervision of: Vikash HardyO. First contact with patient: 01:07 Chief Complaint: ILLNESS Stated Complaint: General illness History of Present Illness The patient is a 61 year old male who presents to the Emergency Room with complaints of nausea tonight. The patient was discharged from the ED 6 hours prior to arrival. He reports that his nausea started after he was discharged. He also reports vomiting and having diarrhea, but states that he takes lactulose and has diarrhea daily. The patient denies having fevers. The patient also reports having black stool today which he states he was evaluated for in the hospital also. He reports being on clindamycin and that he takes Dilaudid at home for pain. The patient states that he is tired of constantly being ill, but denies thoughts of hurting himself. Offered psych rn case manager hospice evaluation, he declined. Pt states he sees a pain early intervention specialist but cannot get additional dilaudid until next week. Pt well known to the ER, here frequently. Pt with several chronic medical conditions. After review of most recent admission, pt with melena, positive hemacult testing, stable H/H throughout and scheduled for capsule endoscopy with GI. Of note, pt takes iron daily also which may be contributing to color. Source of History: patient Onset: tonight Position: other (global) Quality: other (nausea) Associated Symptoms: + vomiting, + diarrhea, No fevers Review of Systems See HPI for pertinent positives & negatives. A total of 10 systems reviewed and were otherwise negative. 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 (23) Syncope and collapse Surgical Problems: (1) H/O esophagogastroduodenoscopy (2) H/O knee surgery (3) S/P cervical spinal fusion (4) S/P IVC filter (5) S/P lumbar fusion (6) S/P T&A (status post tonsillectomy and adenoidectomy) (7) S/P TIPS (transjugular intrahepatic portosystemic shunt) Family History FH: CAD (coronary artery disease) FATHER FH: breast cancer MOTHER Social History Smoking Status: Never Smoker Alcohol Use: none Drug Use: none Marital Status: single Housing Status: lives with roommate Occupation Status: retired Current/Historical Medications Scheduled Clindamycin Hcl (Cleocin), 600 MG PO TID Escitalopram Oxalate (Lexapro), 20 MG PO DAILY Ferrous Sulfate (Kp Ferrous Sulfate), 325 MG PO BID Furosemide (Lasix), 40 MG PO DAILY Insulin Aspart (Novolog), 14 UNITS SQ TIDM Insulin Glargine (Lantus), 38 UNITS SC BID Lactobacillus Acidophilus (Lactinex), 2 TAB PO TID Lactulose (Chronulac), 20 ML PO QID Levetiractam (Levetiracetam), 500 MG PO BID Levothyroxine Sodium (Synthroid), 75 MCG PO QAM Magnesium Oxide (Mag-Ox), 400 MG PO BID Melatonin (Kp Melatonin), 2 MG PO HS Pantoprazole (Protonix), 40 MG PO BID Polyethylene Glycol 3350 (Miralax), 17 GM PO BID Pyridoxine Hcl (Vitamin B-6), 25 MG PO HS Rifaximin (Xifaxan), 550 MG PO BID Spironolactone (Aldactone), 100 MG PO BID Scheduled PRN Diphenhydramine Hcl (Benadryl), 25 MG PO BID PRN for Itching Hydromorphone Hcl (Dilaudid), 4 MG PO Q6 PRN for Pain Ondasetron Odt (Zofran Odt), 1-2 MG SL Q8 PRN for Nausea or Vomiting Triamcinolone Acet (Aristocort 0.1%), 1 APPL EXT BID PRN for dermatitis Allergies Coded Allergies: Acetaminophen (Verified Allergy, Severe, ESLD (BETANCOURT). on Liver transplant list. Cannot have APAP., 11/19/16) Morphine (Verified Allergy, Severe, RED HIVE WENT UP ARM FROM IV SITE, ) NSAIDs (Verified Allergy, Severe, DUE TO LIVER DISEAS, 11/19/16) Penicillins (Verified Allergy, Severe, JOINT SWELLING AND FEVER, 11/19/16) Fentanyl (Verified Allergy, Intermediate, rash, 11/19/16) Levofloxacin (Verified Allergy, Intermediate, RASH, 11/19/16) pt developed erythema at site of IV injection with itching Vancomycin (Verified Allergy, Mild, HIVES, 11/19/16) HIVES Tramadol (Verified Allergy, Unknown, NOT TO TAKE WITH KEPPRA DUE TO SEIZURE RISK, 11/19/16) Physical Exam Vital Signs Date Time Temp Pulse Resp B/P (MAP) Pulse Ox O2 Delivery O2 Flow Rate FiO2 11/16/16 04:46 78 20 130/84 97 11/16/16 04:00 96 22 124/69 98 Room Air 11/16/16 03:00 85 23 129/58 100 Room Air 11/16/16 02:42 89 19 117/67 98 Room Air 11/16/16 01:03 90 11/16/16 01:00 36.7 91 14 137/76 99 Room Air Physical Exam GENERAL: alert, tearful, well nourished, no distress, non-toxic, poor dentition EYE EXAM: normal conjunctiva, PERRL and EOM's grossly intact OROPHARYNX: no exudate, no erythema, lips, buccal mucosa, and tongue normal and mucous membranes are moist NECK: supple, no nuchal rigidity, no adenopathy, non-tender LUNGS: Diminished, but no wheezes, rhonchi, or rales. Normal chest wall mechanics HEART: no murmurs, S1 normal and S2 normal ABDOMEN: abdomen soft, non-tender, normo-active bowel sounds, no masses, no rebound or guarding. BACK: Back is symmetrical on inspection and there is no deformity, no midline tenderness, no CVA tenderness. SKIN: Jaundiced. no rashes and no bruising UPPER EXTREMITIES: upper extremities are grossly normal. Nml rom. LOWER EXTREMITIES: 3+ pitting edema bilateral lower extremities. Nml rom. NEURO EXAM: Normal sensorium, cranial nerves II-XII grossly intact, normal speech, no gross weakness of arms, no gross weakness of legs. Gross sensation intact. Medical Decision & Procedures ER Provider Diagnostic Interpretation: Chest X-ray 1 view: No cardiomegaly. No effusion, no pulmonary edema, no widening mediastinum. No significant change compared to prior. Abdomen 2 views: Hardware noted in lumbar spine. Scattered stool, stenting noted in abdomen. No SBO, no free air. Laboratory Results 11/16/16 02:39 Red Blood Count 3.58, Mean Corpuscular Volume 87.7, Mean Corpuscular Hemoglobin 30.2, Mean Corpuscular Hemoglobin Concent 34.4, Mean Platelet Volume 11.5, Neutrophils (%) (Auto) 76.5, Lymphocytes (%) (Auto) 12.2, Monocytes (%) (Auto) 7.4, Eosinophils (%) (Auto) 3.4, Basophils (%) (Auto) 0.3, Neutrophils # (Auto) 4.52, Lymphocytes # (Auto) 0.72, Monocytes # (Auto) 0.44, Eosinophils # (Auto) 0.20, Basophils # (Auto) 0.02 11/16/16 02:39 Test 11/16/16 01:00 11/16/16 02:39 Urine Color DK YELLOW Urine Appearance CLEAR (CLEAR) Urine pH 7.0 (4.5-7.5) Urine Specific [place] 1.032 (1.000-1.030) Urine Protein NEG (NEG) Urine Glucose (UA) 3+ (NEG) Urine Ketones NEG (NEG) Urine Occult Blood NEG (NEG) Urine Nitrite NEG (NEG) Urine Bilirubin 1+ (NEG) Urine Urobilinogen POS (NEG) Urine Leukocyte Esterase NEG (NEG) White Blood Count 5.91 K/uL (4.8-10.8) Red Blood Count 3.58 M/uL (4.7-6.1) Hemoglobin 10.8 g/dL (14.0-18.0) Hematocrit 31.4 % (42-52) Mean Corpuscular Volume 87.7 fL (80-100) Mean Corpuscular Hemoglobin 30.2 pg (25-34) Mean Corpuscular Hemoglobin Concent 34.4 g/dl (32-36) Platelet Count 60 K/uL (130-400) Mean Platelet Volume 11.5 fL (7.4-10.4) Neutrophils (%) (Auto) 76.5 % Lymphocytes (%) (Auto) 12.2 % Monocytes (%) (Auto) 7.4 % Eosinophils (%) (Auto) 3.4 % Basophils (%) (Auto) 0.3 % Neutrophils # (Auto) 4.52 K/uL (1.4-6.5) Lymphocytes # (Auto) 0.72 K/uL (1.2-3.4) Monocytes # (Auto) 0.44 K/uL (0.11-0.59) Eosinophils # (Auto) 0.20 K/uL (0-0.5) Basophils # (Auto) 0.02 K/uL (0-0.2) RDW Standard Deviation 66.3 fL (36.4-46.3) RDW Coefficient of Variation 20.6 % (11.5-14.5) Immature Granulocyte % (Auto) 0.2 % Immature Granulocyte # (Auto) 0.01 K/uL (0.00-0.02) Anisocytosis PRESENT Echinocytes 1+ Anion Gap 8.0 mmol/L (3-11) Est Creatinine Clear Calc Drug Dose 87.6 ml/min Estimated GFR () 97.8 Estimated GFR (Non- 84.4 BUN/Creatinine Ratio 8.4 (10-20) Calcium Level 7.9 mg/dl (8.5-10.1) Total Bilirubin 5.9 mg/dl (0.2-1) Aspartate Amino Transf (AST/SGOT) 73 U/L (15-37) Alanine Aminotransferase (ALT/SGPT) 38 U/L (12-78) Alkaline Phosphatase 227 U/L (45-117) Troponin I 0.018 ng/ml (0-0.045) Total Protein 5.7 gm/dl (6.4-8.2) Albumin 2.5 gm/dl (3.4-5.0) Globulin 3.2 gm/dl (2.5-4.0) Albumin/Globulin Ratio 0.8 (0.9-2) Lipase 111 U/L (73-393) Beta-Hydroxybutyric Acid 0.66 mg/dL (0.2-2.81) Laboratory results per my review. Medications Administered Medications (Trade) Dose Ordered Sig/Ryan Route Start Time Stop Time Status Last Admin Dose Admin Ondansetron HCl (Zofran 8mg Iv) 8 mg NOW STAT IV 11/16/16 01:25 11/16/16 01:28 DC 11/16/16 02:38 8 MG Lorazepam (Ativan Inj) 0.5 mg NOW STAT IV 11/16/16 01:25 11/16/16 01:28 DC 11/16/16 02:38 0.5 MG Al Hydroxide/Mg Hydroxide (Maalox Susp) 15 ml NOW STAT PO 11/16/16 03:59 11/16/16 04:01 DC 11/16/16 04:10 15 ML ECG Indication: weakness Rate (beats per minute): 81 Rhythm: normal sinus Findings: no acute ischemic change, no ectopy, other (normal axis, normal intervals ) ED Course 0112: The patient was evaluated in room B3B. A complete history and physical exam was performed. 0125: Ordered Ativan Inj 0.5 mg IV, Ondansetron 8 mg IV. 0359: Ordered Maalox Susp 15 ml PO. 0425: After discussion with rn case manager hospice, pt requesting to be discharged. 0430: Upon reevaluation, the patient is feeling better. I discussed the findings and the treatment plan with the patient. He verbalizes agreement and understanding. He was discharged home. Medical Decision Differential diagnosis: Etiologies such as appendicitis, diverticulitis, PUD, biliary pathology, UTI, pancreatitis, obstruction, mesenteric ischemia, aortic pathology, infections, inflammatory bowel disease, renal colic, as well as others were entertained. Pt with stable labs here compared to prior. No change in chronic anemia or thrombocytopenia. VS stable despite condition. Pt requested to be discharged after being offered additional ER observation and case mgmt evaluation. Pt already set up with home nursing. Family involved in his care also. Given no acute change in his condition, no vomiting here, ambulating with steady/stable gait, tolerating po, I felt reasonable to discharge patient as requested. Doubt acute bacteremia/sepsis, doubt acute gi bleed, doubt SBP, doubt vascular etiology. Pt denied Si and I do not feel he is an imminent risk of hurting himself. Medication Reconcilliation Current Medication List: was personally reviewed by me Blood Pressure Screening Patient's blood pressure: Normal blood pressure Impression Primary Impression: Anxiety Additional Impressions: Depression Anemia Thrombocytopenia Chronic pain BETANCOURT (nonalcoholic steatohepatitis) Back pain Scribe Attestation The scribe's documentation has been prepared under my direction and personally reviewed by me in its entirety. I confirm that the note above accurately reflects all work, treatment, procedures, and medical decision making performed by me. Departure Information Dispostion Home / Self-Care Referrals Chacha Munoz D.O. (PCP) Forms HOME CARE DOCUMENTATION FORM, IMPORTANT VISIT INFORMATION, WORK / SCHOOL INSTRUCTIONS Patient Instructions My [facility] Additional Instructions Please continue regular medications as prescribed. Continue your follow-up appointments as previously scheduled including with your family doctor as well as your GI specialist. If you have any worsening symptoms or new concerns, please return the emergency room. Problem Qualifiers Additional Impressions: Depression Depression Type: unspecified Qualified Codes: F32.9 - Major depressive disorder, single episode, unspecified Anemia Anemia type: unspecified type Qualified Codes: D64.9 - Anemia, unspecified Chronic pain Chronic pain type: chronic pain syndrome Qualified Codes: G89.4 - Chronic pain syndrome Back pain Back pain location: low back pain Chronicity: chronic Back pain laterality : bilateral Sciatica presence: without sciatica Qualified Codes: M54.5 - Low back pain; G89.29 - Other chronic pain
[2016-11-16 01:52] LABS: URINE APPEARANCE CLEAR (CLEAR); URINE COLOR DK YELLOW; URINE NITRITE NEG (NEG); URINE SPECIFIC GRAVITY 1.032 (1.000-1.030); UROBILINOGEN POS (NEG); ZZUR CULT IF INDIC CLEAN CATCH NO
[2016-11-16 01:53] LABS: MANUAL MICROSCOPIC REQUIRED? NO; REVIEW REQ? NO; URINE BILIRUBIN 1+ (NEG)
[2016-11-16] MEDS: ONDANSETRON 8 MG/54 ML D5W IV STA ×2 (02:33→02:38)
[2016-11-16 02:55] LABS: HEMATOCRIT 31.4 % (42-52); MEAN CELL VOLUME 87.7 fL (80-100); MEAN CORPUSCULAR HEMOGLOBIN 30.2 pg (25-34); MEAN CORPUSCULAR HGB CONC 34.4 g/dl (32-36); RED BLOOD COUNT 3.58 M/uL (4.7-6.1); WHITE BLOOD COUNT 5.91 K/uL (4.8-10.8)
[2016-11-16 03:14] LABS: BUN/CREATININE RATIO 8.4 (10-20); CALCIUM 7.9 mg/dl (8.5-10.1); CREATININE 0.96 mg/dl (0.60-1.40); POTASSIUM 4.2 mmol/L (3.5-5.1)
[2016-11-16 03:21] LABS: ALB/GLOB RATIO 0.8 (0.9-2)
[2016-11-16 03:32] LABS: BETA-HYDROXYBUTYRATE 0.66 mg/dL (0.2-2.81)
[2016-11-16 03:44] LABS: MEAN PLATELET VOLUME 11.5 fL (7.4-10.4); PLATELET COUNT 60 K/uL (130-400)
[2016-11-16 03:46] LABS: ANISOCYTOSIS PRESENT; BASO % 0.3 %; BASO ABS # 0.02 K/uL (0-0.2); COMPLETE YES; ECHINOCYTES 1+; EOS % 3.4 %; IG% 0.2 %; LYMPH % 12.2 %; LYMPH ABS # 0.72 K/uL (1.2-3.4); MONO % 7.4 %; NEUT % 76.5 %
[2016-11-16] MEDS ORDERED: ALUMINUM/MAGNESIUM SUSP 30 ML UDC PO STA (03:59)
[2016-11-16 04:46] VITALS: BP 130/84; PULSE 78; O2SAT 97
--- NOTE | 2016-11-16 07:35 | DIAGNOSTIC IMAGING REPORT ---
CHEST AND ABDOMEN 2 VIEWS HISTORY: nausea/vomiting COMPARISON: Chest 10/31/2016. Abdomen and pelvis CT 10/31/2016. FINDINGS: Cervical spinal fusion hardware. No pneumothorax. No pleural effusions. Interstitial thickening most pronounced at the lung bases remains unchanged. No new focal lung consolidations. The heart is normal in size. Lumbosacral spinal fusion hardware. The S1 screws remain fractured. There is no IVC filter present. Small amount of ascites. Bowel gas pattern is unremarkable. No evidence for bowel obstruction. Vascular coils within the epigastric region and evidence for a TIPS procedure. Cholelithiasis is again noted. Nondistended gas-filled loops of large and small bowel are identified. IMPRESSION: 1. No change in the diffuse interstitial thickening within the lungs most pronounced at the lung bases. This could be chronic or due to mild congestive change. 2. Postoperative changes as described above including a TIPS procedure. 3. Cholelithiasis. 4. Small amount of ascites, unchanged. Electronically signed by: Tj Weston M.D. 11/16/2016 7:34 AM Dictated Date/Time: 11/16/2016 7:30 AM
[2016-11-18] MEDS ORDERED: CLIN300C2 PO (10:23)
== END 2016-11-16 04:47 | disposition home or self-care (01) ==
LOC: EDBD 00:48 → C.EDB 00:50
DX: F41.9 Anxiety disorder, unspecified (principal); F32.9 Major depressive disorder, single episode, unspecified; D69.6 Thrombocytopenia, unspecified; K75.81 Nonalcoholic steatohepatitis (NASH); M54.9 Dorsalgia, unspecified; E11.9 Type 2 diabetes mellitus without complications; E78.5 Hyperlipidemia, unspecified; N18.6 End stage renal disease; G40.909 Epilepsy, unspecified, not intractable, without status epilepticus; E03.9 Hypothyroidism, unspecified; K74.60 Unspecified cirrhosis of liver; K72.90 Hepatic failure, unspecified without coma; Z86.711 Personal history of pulmonary embolism; Z98.1 Arthrodesis status; Z98.890 Other specified postprocedural states; Z79.4 Long term (current) use of insulin; Z79.899 Other long term (current) drug therapy; Z88.0 Allergy status to penicillin; Z88.5 Allergy status to narcotic agent; Z88.8 Allergy status to other drugs, medicaments and biological substances; Z82.49 Family history of ischemic heart disease and other diseases of the circulatory system; Z80.3 Family history of malignant neoplasm of breast

== ENCOUNTER 2016-11-16 15:28 | Observation (INO) | payer OTHER ==
[~2016-11-16] VITALS: Ht 182.9 cm; Wt 79.9 kg
--- NOTE | 2016-11-16 16:32 | DIAGNOSTIC IMAGING REPORT ---
L HAND MIN 3 VIEWS ROUTINE CLINICAL HISTORY: 61 years-old Male presenting with left fourth and fifth finger and hand pain. TECHNIQUE: Frontal, oblique, and lateral views left hand were obtained. COMPARISON: None. FINDINGS: [place] dorsal angulated fracture of the fifth metacarpal appears to be a chronic deformity. More subtle chronic deformity of the fourth metacarpal may also be noted. No convincing evidence of an acute fracture. Osteopenia may be present. Degenerative changes of the distal interphalangeal joint of the second finger. The fourth and fifth fingers are radiographically normal without significant degenerative change. IMPRESSION: No radiographic abnormality of the left fourth or fifth fingers. Chronic fracture deformities of the fifth and potentially the fourth metacarpals. Electronically signed by: Slim Sarmiento M.D. 11/16/2016 4:31 PM Dictated Date/Time: 11/16/2016 4:28 PM
--- NOTE | 2016-11-16 16:33 | DIAGNOSTIC IMAGING REPORT ---
CHEST ONE VIEW PORTABLE CLINICAL HISTORY: Back pain. COMPARISON STUDY: Chest radiograph performed earlier today and October 31, 2016. FINDINGS: Anterior cervical spine fusion is noted. There are upper abdominal coils. Lung volumes are normal. No consolidation is identified. Linear left basilar opacity is suggestive of atelectasis. There is no evidence of pulmonary edema. Cardiomediastinal silhouette is normal. IMPRESSION: No acute cardiopulmonary findings. Electronically signed by: Luisito Obregon M.D. 11/16/2016 4:31 PM Dictated Date/Time: 11/16/2016 4:30 PM
[2016-11-16 17:04] LABS: MEAN CELL VOLUME 85.4 fL (80-100); MEAN CORPUSCULAR HEMOGLOBIN 29.9 pg (25-34); RED BLOOD COUNT 3.28 M/uL (4.7-6.1); WHITE BLOOD COUNT 5.04 K/uL (4.8-10.8)
[2016-11-16 17:05] LABS: MEAN PLATELET VOLUME 10.3 fL (7.4-10.4); PLATELET COUNT 56 K/uL (130-400)
[2016-11-16 17:13] LABS: INR 1.7 (0.9-1.1); PARTIAL THROMBOPLASTIN RATIO 1.4; PROTHROMBIN TIME (PATIENT) 18.5 SECONDS (9.0-12.0)
[2016-11-16 17:23] LABS: ANISOCYTOSIS PRESENT; BASO % 0.4 %; BASO ABS # 0.02 K/uL (0-0.2); COMPLETE YES; EOS % 2.6 %; IG% 0.2 %; LYMPH % 10.3 %; LYMPH ABS # 0.52 K/uL (1.2-3.4); MONO % 8.5 %; SCHISTOCYTES OCCASIONAL
--- NOTE | 2016-11-16 17:27 | EMERGENCY ROOM VISIT NOTE ---
History Report prepared by Alla: Patric Ferguson Under the Supervision of: Dr. Tonny Villasenor M.D. First contact with patient: 15:52 Chief Complaint: FALL Stated Complaint: SYNCOPE History of Present Illness The patient is a 61 year old male with a history of liver failure who presents to the Emergency Room via BLS with complaints of multiple episodes of falls over the past 5 days. The patient was seen here last night for nausea, but did not have any vomiting or fevers, and was sent home. He says that he has fallen 3 times over the past 5 days, including one episode earlier today, when he passed out while walking on steps at his house and fell onto the ground, hurting his back and right hip. He adds that he hurt his left 5th finger on the fall, and had his 4th and 5th fingers taped together by the ambulance crew. The patient says that he was unable to stand after the fall. He notes that he has pain in both his back, right hip, and right 5th finger currently. The patient states that his first fall was 5 days ago, and he was walking at a furniture store at that time. He says that ever since he has been falling, he has felt weak and run-down. He notes that he has not hit his head on the falls. Per the nursing report, the S crew reports that the patient would not speak to them and he was very unsteady. The patient notes that he was recently admitted to the hospital because his stools were black. Pt denies headache, visual changes , neck pain, chest pain, breathing difficulties, vomiting, abdominal pain, numbness, open wounds, active bleeding, or other complaints. Source of History: patient, nursing staff Onset: Over past 5 days Position: other (global - falls) Symptom Intensity: 3 falls Timing: other (multiple episodes) Associated Symptoms: + LOC, + back pain, + weakness Note: Associated symptoms: Pain in right hip and right 5th finger from fall earlier today. Review of Systems See HPI for pertinent positives and negatives. A total of ten systems were reviewed and were otherwise negative. 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 (20) Syncope and collapse Surgical Problems: (1) H/O esophagogastroduodenoscopy (2) H/O knee surgery (3) S/P cervical spinal fusion (4) S/P IVC filter (5) S/P lumbar fusion (6) S/P T&A (status post tonsillectomy and adenoidectomy) (7) S/P TIPS (transjugular intrahepatic portosystemic shunt) Family History FH: CAD (coronary artery disease) FATHER FH: breast cancer MOTHER Social History Smoking Status: Former Smoker Alcohol Use: none Drug Use: none Marital Status: single Housing Status: lives with roommate Occupation Status: retired Current/Historical Medications Scheduled Clindamycin Hcl (Cleocin), 600 MG PO TID Escitalopram Oxalate (Lexapro), 20 MG PO DAILY Ferrous Sulfate (Kp Ferrous Sulfate), 325 MG PO BID Furosemide (Lasix), 40 MG PO DAILY Insulin Aspart (Novolog), 14 UNITS SQ TIDM Insulin Glargine (Lantus), 38 UNITS SC BID Lactobacillus Acidophilus (Lactinex), 2 TAB PO TID Lactulose (Chronulac), 20 ML PO QID Levetiractam (Levetiracetam), 500 MG PO BID Levothyroxine Sodium (Synthroid), 75 MCG PO QAM Magnesium Oxide (Mag-Ox), 400 MG PO BID Melatonin (Kp Melatonin), 2 MG PO HS Pantoprazole (Protonix), 40 MG PO BID Polyethylene Glycol 3350 (Miralax), 17 GM PO BID Pyridoxine Hcl (Vitamin B-6), 25 MG PO HS Rifaximin (Xifaxan), 550 MG PO BID Spironolactone (Aldactone), 100 MG PO BID Scheduled PRN Diphenhydramine Hcl (Benadryl), 25 MG PO BID PRN for Itching Hydromorphone Hcl (Dilaudid), 4 MG PO Q6 PRN for Pain Ondasetron Odt (Zofran Odt), 1-2 MG SL Q8 PRN for Nausea or Vomiting Triamcinolone Acet (Aristocort 0.1%), 1 APPL EXT BID PRN for dermatitis Allergies Coded Allergies: Acetaminophen (Verified Allergy, Severe, ESLD (BETANCOURT). on Liver transplant list. Cannot have APAP., 11/16/16) Morphine (Verified Allergy, Severe, RED HIVE WENT UP ARM FROM IV SITE, 01/21) NSAIDs (Verified Allergy, Severe, DUE TO LIVER DISEAS, 11/16/16) Penicillins (Verified Allergy, Severe, JOINT SWELLING AND FEVER, 11/16/16) Fentanyl (Verified Allergy, Intermediate, rash, 11/16/16) Levofloxacin (Verified Allergy, Intermediate, RASH, 11/16/16) pt developed erythema at site of IV injection with itching Vancomycin (Verified Allergy, Mild, HIVES, 11/16/16) HIVES Tramadol (Verified Allergy, Unknown, NOT TO TAKE WITH KEPPRA DUE TO SEIZURE RISK, 11/16/16) Physical Exam Vital Signs Date Time Temp Pulse Resp B/P (MAP) Pulse Ox O2 Delivery O2 Flow Rate FiO2 11/16/16 17:21 72 14 145/76 98 Room Air 11/16/16 15:37 36.5 88 16 138/76 98 Room Air Physical Exam GENERAL: Awake, alert, chronically ill-appearing, in no distress HENT: Normocephalic, atraumatic. Oropharynx unremarkable. EYES: Normal conjunctiva. Sclera icterus. NECK: Supple. No nuchal rigidity. FROM. No JVD. RESPIRATORY: Clear to auscultation. CARDIAC: Regular rate, normal rhythm. Extremities warm and well perfused. Pulses equal. ABDOMEN: Soft. Mildly distended. No tenderness to palpation. No rebound or guarding. No masses. RECTAL: Deferred. MUSCULOSKELETAL: Chest examination reveals no tenderness. Abrasions and bruising to left lower back and lumbar area. Bruising scattered throughout upper extremities. There is no CVA tenderness to palpation. LOWER EXTREMITIES: Calves are equal size bilaterally and non-tender. 2+ lower extremity edema. No discoloration. NEURO: Normal sensorium. No sensory or motor deficits noted. SKIN: Jaundiced skin. No rash noted. Medical Decision & Procedures ER Provider Diagnostic Interpretation: X-ray: Per my interpretation, radiologist review. L HAND MIN 3 VIEWS ROUTINE CLINICAL HISTORY: 61 years-old Male presenting with left fourth and fifth finger and hand pain. TECHNIQUE: Frontal, oblique, and lateral views left hand were obtained. COMPARISON: None. FINDINGS: [place] dorsal angulated fracture of the fifth metacarpal appears to be a chronic deformity. More subtle chronic deformity of the fourth metacarpal may also be noted. No convincing evidence of an acute fracture. Osteopenia may be present. Degenerative changes of the distal interphalangeal joint of the second finger. The fourth and fifth fingers are radiographically normal without significant degenerative change. IMPRESSION: No radiographic abnormality of the left fourth or fifth fingers. Chronic fracture deformities of the fifth and potentially the fourth metacarpals. Electronically signed by: Slim Sarmiento M.D. 11/16/2016 4:31 PM Dictated Date/Time: 11/16/2016 4:28 PM CHEST ONE VIEW PORTABLE CLINICAL HISTORY: Back pain. COMPARISON STUDY: Chest radiograph performed earlier today and October 31, 2016. FINDINGS: Anterior cervical spine fusion is noted. There are upper abdominal coils. Lung volumes are normal. No consolidation is identified. Linear left basilar opacity is suggestive of atelectasis. There is no evidence of pulmonary edema. Cardiomediastinal silhouette is normal. IMPRESSION: No acute cardiopulmonary findings. Electronically signed by: Luisito Obregon M.D. 11/16/2016 4:31 PM Dictated Date/Time: 11/16/2016 4:[address] OF THE HEAD WITHOUT CONTRAST CLINICAL HISTORY: Syncope. Fall. COMPARISON STUDY: Head CT November 11, 2016. CT DOSE: 537.48 mGy.cm TECHNIQUE: Helical axial images of the head were obtained without IV contrast. Automated exposure control was utilized for the study. A dose lowering technique was utilized adhering to the principles of ALARA. FINDINGS: No acute intracranial hemorrhage, midline shift or mass effect is present. Ventricular system is stable. Basilar cisterns are patent. There are no extra-axial collections. There are no findings to suggest acute dural sinus thrombosis or acute territorial infarct. There is no calvarial fracture. IMPRESSION: 1. No acute intracranial findings. 2. No calvarial fracture. Electronically signed by: Luisito Obregon M.D. 11/16/2016 5:38 PM Dictated Date/Time: 11/16/2016 5:[address] OF THE RIGHT HIP WITHOUT CONTRAST CLINICAL HISTORY: Right hip pain following fall. COMPARISON STUDY: CT of the abdomen and pelvis October 31, 2016. TECHNIQUE: Axial images of the right hip were obtained without IV contrast. Sagittal and coronal reconstructions were viewed. FINDINGS: This exam is mildly compromised by motion artifact. However, alignment of the right hip is anatomic. No acute fracture is identified. Ascites is partially imaged on this examination. No hematoma is identified within the soft tissues by CT. There is mild to moderate osteoarthritis of the right hip. IMPRESSION: 1. No acute fracture or dislocation of the right hip. Exam mildly compromised by motion artifact. 2. Mild to moderate osteoarthritis of the right hip. 3. Ascites. Electronically signed by: Luisito Obregon M.D. 11/16/2016 5:45 PM Dictated Date/Time: 11/16/2016 5:38 PM LUMBAR SPINE WITHOUT CLINICAL HISTORY: 61 years-old Male presenting with Back pain. TECHNIQUE: Multidetector CT of the lumbar spine was performed without the use of intravenous contrast. IV contrast: None. A dose lowering technique was used consistent with the principles of ALARA (as low as reasonably achievable). COMPARISON: 11/11/2016. CT DOSE (mGy.cm): The estimated cumulative dose is 1648.33 mGy.cm. FINDINGS: Division Commander topogram: Endovascular coils project over the epigastrium. A TIPS is partially visualized. Normal lumbar lordosis. Postsurgical changes of bilateral transpedicular screw and luis fixation of L4 bridging to S1 skipping the intervening level. Laminectomy defects also noted at L5. Chronic fracture of the bilateral S1 screws and potentially the left L4 screw as noted on prior exam. These are unchanged. Mild osteopenia. Increased prominence of gas in the epidural space at the L3-4 level possibly within a synovial cyst from the adjacent right L3-4 facet joint, which also contains degenerative related gas. Chronic compression deformity of the L1 vertebral body. No new compression deformity. Prominent Schmorl's node at the inferior endplate of T12. Remainder of vertebral bodies demonstrate normal height. 6 mm of grade 1 anterolisthesis of L5 on S1. Mild disc bulges noted at multiple levels. Neural foraminal narrowing noted bilaterally at L3-4 primarily secondary to facet arthropathy. No other osseous neural foraminal or spinal canal narrowing. No acute fracture or subluxation. Degenerative changes of the sacroiliac joints. Atherosclerosis. IVC filter with a strut posterior to the aorta, unchanged. Mild subcutaneous edema in the posterior soft tissues of the lumbar region, nonspecific. No focal fluid collection. No paraspinal fat infiltration allowing for regional streak artifact arising from the hardware. Small amount of ascites noted. IMPRESSION: 1. No acute osseous injury of the lumbar spine. 2. Chronic compression deformity of L1. 3. Mild osteopenia. 4. Postsurgical changes of L4-S1 posterior fusion and laminectomy. 5. Chronic hardware complication with pedicle screw fractures as above. 6. Small amount of ascites. Electronically signed by: Slim Sarmiento M.D. 11/16/2016 5:48 PM Dictated Date/Time: 11/16/2016 5:38 PM Laboratory Results 11/16/16 16:53 Red Blood Count 3.28, Mean Corpuscular Volume 85.4, Mean Corpuscular Hemoglobin 29.9, Mean Corpuscular Hemoglobin Concent 35.0, Mean Platelet Volume 10.3, Neutrophils (%) (Auto) 78.0, Lymphocytes (%) (Auto) 10.3, Monocytes (%) (Auto) 8.5, Eosinophils (%) (Auto) 2.6, Basophils (%) (Auto) 0.4, Neutrophils # (Auto) 3.93, Lymphocytes # (Auto) 0.52, Monocytes # (Auto) 0.43, Eosinophils # (Auto) 0.13, Basophils # (Auto) 0.02 11/16/16 16:53 Test 11/16/16 16:53 White Blood Count 5.04 K/uL (4.8-10.8) Red Blood Count 3.28 M/uL (4.7-6.1) Hemoglobin 9.8 g/dL (14.0-18.0) Hematocrit 28.0 % (42-52) Mean Corpuscular Volume 85.4 fL (80-100) Mean Corpuscular Hemoglobin 29.9 pg (25-34) Mean Corpuscular Hemoglobin Concent 35.0 g/dl (32-36) Platelet Count 56 K/uL (130-400) Mean Platelet Volume 10.3 fL (7.4-10.4) Neutrophils (%) (Auto) 78.0 % Lymphocytes (%) (Auto) 10.3 % Monocytes (%) (Auto) 8.5 % Eosinophils (%) (Auto) 2.6 % Basophils (%) (Auto) 0.4 % Neutrophils # (Auto) 3.93 K/uL (1.4-6.5) Lymphocytes # (Auto) 0.52 K/uL (1.2-3.4) Monocytes # (Auto) 0.43 K/uL (0.11-0.59) Eosinophils # (Auto) 0.13 K/uL (0-0.5) Basophils # (Auto) 0.02 K/uL (0-0.2) RDW Standard Deviation 64.3 fL (36.4-46.3) RDW Coefficient of Variation 20.7 % (11.5-14.5) Immature Granulocyte % (Auto) 0.2 % Immature Granulocyte # (Auto) 0.01 K/uL (0.00-0.02) Anisocytosis PRESENT Schistocytes OCCASIONAL Prothrombin Time 18.5 SECONDS (9.0-12.0) Prothromb Time International Ratio 1.7 (0.9-1.1) Activated Partial Thromboplast Time 36.2 SECONDS (21.0-31.0) Partial Thromboplastin Ratio 1.4 Anion Gap 9.0 mmol/L (3-11) Est Creatinine Clear Calc Drug Dose 106.4 ml/min Estimated GFR () 111.5 Estimated GFR (Non- 96.2 BUN/Creatinine Ratio 9.1 (10-20) Calcium Level 7.9 mg/dl (8.5-10.1) Total Bilirubin 5.8 mg/dl (0.2-1) Direct Bilirubin 3.0 mg/dl (0-0.2) Aspartate Amino Transf (AST/SGOT) 62 U/L (15-37) Alanine Aminotransferase (ALT/SGPT) 34 U/L (12-78) Alkaline Phosphatase 219 U/L (45-117) Ammonia 67.0 umol/L (11-32) Total Protein 5.2 gm/dl (6.4-8.2) Albumin 2.4 gm/dl (3.4-5.0) Laboratory results reviewed by me ED Course 1553: The patient was evaluated in room C8. A complete history and physical exam was performed. 1800: Discussed the case with the patient and he requested his normal dose of Dilaudid. This was given. The patient is not doing well at home. I discussed having his decision of transition to rehabilitation close to family in [place] expedited. Since he does not feel well to go home [facility]: discussed the case with Dr. Hanks. He will evaluate the patient for further management. Medical Decision Triage Nursing notes reviewed. The patient's presentation and history were concerning for syncope and a fall. Etiologies such as contusion, fracture, muscular strain, vasovagal event, infection, hypoglycemia, electrolyte abnormalities, cardiac sources, intracerebral event, toxicologic, neurologic, as well as others were entertained. The patient was evaluated as above. He has had multiple visits emergency department including a recent admission. He states he was just here last night for anxiety. He still feels anxious. He had a syncopal episode today was caused a fall. He noted some pain in his left hand, right hip, and back. He denies hitting his head. No abdominal trauma. The patient had imaging ordered and blood work obtained. I did discuss with him pursuing rehabilitation as he was weak and has been falling a lot. This was discussed with him in the hospital but he declined. The patient states he will not go to [facility]. He has been at [facility] in the past. He states that his family is going to get him on November 29 and taken to [place] for rehabilitation there. I did have case management meet with the patient and discuss options with him. He refused rehabilitation consideration. He has a mildly worsening anemia. His ammonia level is more elevated than usual. The patient was given a dose of his regular prescribed Dilaudid, 4 mg by mouth. He does not feel well to go home. I did evp general counsel the patient and stressed the need for increased level of care given his debilitated medical condition. He is going to try to expedite his transition to [place]. [facility] for [facility] of observation. Dr. Hanks will evaluate the patient here please see his note for further details. Medication Reconcilliation Current Medication List: was personally reviewed by me Blood Pressure Screening Patient's blood pressure: Elevated blood pressure Blood pressure disposition: Elevated BP felt to be situational Impression Primary Impression: Syncope Additional Impressions: Fall Contusion of multiple sites End stage liver disease Hyperammonemia Scribe Attestation The scribe's documentation has been prepared under my direction and personally reviewed by me in its entirety. I confirm that the note above accurately reflects all work, treatment, procedures, and medical decision making performed by me. Departure Information Dispostion Being Evaluated By Hospitalist Referrals Chacha Munoz D.O. (PCP) Patient Instructions My [facility] Problem Qualifiers
[2016-11-16 17:32] LABS: BUN/CREATININE RATIO 9.1 (10-20); CALCIUM 7.9 mg/dl (8.5-10.1); CREATININE 0.79 mg/dl (0.60-1.40)
--- NOTE | 2016-11-16 17:39 | DIAGNOSTIC IMAGING REPORT ---
CT OF THE HEAD WITHOUT CONTRAST CLINICAL HISTORY: Syncope. Fall. COMPARISON STUDY: Head CT November 11, 2016. CT DOSE: 537.48 mGy.cm TECHNIQUE: Helical axial images of the head were obtained without IV contrast. Automated exposure control was utilized for the study. A dose lowering technique was utilized adhering to the principles of ALARA. FINDINGS: No acute intracranial hemorrhage, midline shift or mass effect is present. Ventricular system is stable. Basilar cisterns are patent. There are no extra-axial collections. There are no findings to suggest acute dural sinus thrombosis or acute territorial infarct. There is no calvarial fracture. IMPRESSION: 1. No acute intracranial findings. 2. No calvarial fracture. Electronically signed by: Luisito Obregon M.D. 11/16/2016 5:38 PM Dictated Date/Time: 11/16/2016 5:36 PM
--- NOTE | 2016-11-16 17:47 | DIAGNOSTIC IMAGING REPORT ---
CT OF THE RIGHT HIP WITHOUT CONTRAST CLINICAL HISTORY: Right hip pain following fall. COMPARISON STUDY: CT of the abdomen and pelvis October 31, 2016. TECHNIQUE: Axial images of the right hip were obtained without IV contrast. Sagittal and coronal reconstructions were viewed. FINDINGS: This exam is mildly compromised by motion artifact. However, alignment of the right hip is anatomic. No acute fracture is identified. Ascites is partially imaged on this examination. No hematoma is identified within the soft tissues by CT. There is mild to moderate osteoarthritis of the right hip. IMPRESSION: 1. No acute fracture or dislocation of the right hip. Exam mildly compromised by motion artifact. 2. Mild to moderate osteoarthritis of the right hip. 3. Ascites. Electronically signed by: Luisito Obregon M.D. 11/16/2016 5:45 PM Dictated Date/Time: 11/16/2016 5:38 PM
--- NOTE | 2016-11-16 17:50 | DIAGNOSTIC IMAGING REPORT ---
LUMBAR SPINE WITHOUT CLINICAL HISTORY: 61 years-old Male presenting with Back pain. TECHNIQUE: Multidetector CT of the lumbar spine was performed without the use of intravenous contrast. IV contrast: None. A dose lowering technique was used consistent with the principles of ALARA (as low as reasonably achievable). COMPARISON: 11/11/2016. CT DOSE (mGy.cm): The estimated cumulative dose is 1648.33 mGy.cm. FINDINGS: Mortar Man topogram: Endovascular coils project over the epigastrium. A TIPS is partially visualized. Normal lumbar lordosis. Postsurgical changes of bilateral transpedicular screw and luis fixation of L4 bridging to S1 skipping the intervening level. Laminectomy defects also noted at L5. Chronic fracture of the bilateral S1 screws and potentially the left L4 screw as noted on prior exam. These are unchanged. Mild osteopenia. Increased prominence of gas in the epidural space at the L3-4 level possibly within a synovial cyst from the adjacent right L3-4 facet joint, which also contains degenerative related gas. Chronic compression deformity of the L1 vertebral body. No new compression deformity. Prominent Schmorl's node at the inferior endplate of T12. Remainder of vertebral bodies demonstrate normal height. 6 mm of grade 1 anterolisthesis of L5 on S1. Mild disc bulges noted at multiple levels. Neural foraminal narrowing noted bilaterally at L3-4 primarily secondary to facet arthropathy. No other osseous neural foraminal or spinal canal narrowing. No acute fracture or subluxation. Degenerative changes of the sacroiliac joints. Atherosclerosis. IVC filter with a strut posterior to the aorta, unchanged. Mild subcutaneous edema in the posterior soft tissues of the lumbar region, nonspecific. No focal fluid collection. No paraspinal fat infiltration allowing for regional streak artifact arising from the hardware. Small amount of ascites noted. IMPRESSION: 1. No acute osseous injury of the lumbar spine. 2. Chronic compression deformity of L1. 3. Mild osteopenia. 4. Postsurgical changes of L4-S1 posterior fusion and laminectomy. 5. Chronic hardware complication with pedicle screw fractures as above. 6. Small amount of ascites. Electronically signed by: Slim Sarmiento M.D. 11/16/2016 5:48 PM Dictated Date/Time: 11/16/2016 5:38 PM
[2016-11-16] MEDS ORDERED: HYDROmorphone HCL 2 MG TAB PO STA (18:11)
[2016-11-16 19:40] VITALS: Ht 182.9 cm; Wt 79.9 kg
[2016-11-16 19:45] VITALS: BP 138/76; PULSE 104; TEMP 36.3; O2SAT 97
--- NOTE | 2016-11-16 20:04 | HISTORY & PHYSICAL EXAMINATION ---
DATE OF ADMISSION: 11/16/2016 PRIMARY CARE PHYSICIAN: Dr. Wolf. CHIEF COMPLAINT: Status post fall at home. HISTORY OF PRESENT ILLNESS: He is a 61-year-old male with significant past medical history of cirrhosis with recurrent ascites and recent status post TIPS procedure in [place], depression, diabetes type 2, esophageal varices, hypothyroidism, portal hypertension, history of pulmonary embolism, seizure disorder and also superior mesenteric vein thrombosis. Apparently, was in the hospital recently with syncope and collapse. During that time, he has had a mechanical fall and he was in telemetry unit. He did not have any arrhythmias or any injury from the fall. He was discharged home day before yesterday, the same day, he came back in the ER with anxiety attack and he was sent home. Again, he lives alone and he is very weak and lethargic at times. Previously refused to go to any rehab, so today, he has had a fall at his porch and he injured his back and called 911 and brought into the Emergency Room. In the Emergency Room, he denies to have any palpitation, any chest pain, any shortness of breath, any dizziness, before the fall. it was a mechanical fall and he mentioned that he lost consciousness, he does not know how long and he injured his back. In the ER, he was hemodynamically stable and apparent blood test including CAT scan of the head and lumbar spine and also x-rays did not show any significant fracture or any lab abnormality, but given the history of frequent fall and unsafe at home, he was admitted to medical floor for continuation of care. PAST MEDICAL HISTORY: Significant for End Stage cirrhosis, status post TIPS procedure in [place] recently; diabetes type 2, on insulin; history of esophageal varices, history of GI bleed, hypothyroidism, history of pericardial effusion and pulmonary embolism, seizure disorder and also depression and anxiety. PAST SURGICAL HISTORY: Significant for right knee surgery, cervical spinal fusion, status post IVC filter, lumbar spine fusion and status post TIPS procedure in [place]. FAMILY HISTORY: Significant that father did have coronary artery disease and mother did have breast cancer. SOCIAL HISTORY: He lives alone. He is single. He is retired. He does not smoke. He used to use alcohol but not now, and he does not use any IV drugs. REVIEW OF SYSTEMS: CENTRAL NERVOUS SYSTEM: No headache, no blurred vision, no numbness or tingling in the extremities. RESPIRATORY: No shortness of breath, no chest pain, no cough or fever, chills. CARDIOVASCULAR: No chest pain, palpitation. GASTROINTESTINAL: No abdominal distention, nausea or vomiting. MUSCULOSKELETAL: Does have back pain and also pain in the left hand, status post fall and generally he complains to have edema and also bruising, especially the back and the other 3 years. He does have any adenopathy. ALLERGIES: ALLERGIC TO TYLENOL, MORPHINE, NSAIDS, PENICILLIN, FENTANYL, LEVOFLOXACIN, VANCOMYCIN, AND TRAMADOL. MEDICATIONS: As an outpatient, he has been on magnesium oxide 400 mg b.i.d., Zofran 8 mg 1-2 tablets q. 8 hourly as needed, Aristocort cream as directed, clindamycin 300 mg t.i.d. for 10 days, Benadryl 25 mg b.i.d. as needed, Lexapro 20 mg daily, ferrous sulfate 325 mg b.i.d., furosemide 40 mg daily, Dilaudid 4 mg q. 6 hourly as needed, NovoLog 14 units subQ 3 times daily, Lantus 38 units subQ b.i.d., Lactinex 2 tablets t.i.d., lactulose 20 mL p.o. q.i.d., Levetiracetam 500 mg b.i.d., Synthroid 75 mcg in the morning, melatonin 3 mg at night, Protonix 40 mg b.i.d., MiraLax 17 grams b.i.d., vitamin B6 25 mg at night, Rifaxamin 550 mg b.i.d. and spironolactone 100 mg tablet b.i.d. PHYSICAL EXAMINATION: GENERAL: On examination in the Emergency Room, he was not having any acute distress. No confusion. VITAL SIGNS: Temperature 36.5, pulse was 72, blood pressure 145/76, saturation 98% on room air. HEENT: Unremarkable. NECK: Supple. No JVD, no bruit. CHEST: Clear to auscultate bilaterally with some decreased breath sounds, both sides. HEART: S1, S2 regular, no murmur. ABDOMEN: Soft, benign, mildly tender in the epigastrium. No organomegaly. Bowel sounds present. EXTREMITIES: 1-2+ edema bilaterally, more on the right than the left. MUSCULOSKELETAL SYSTEM: Did show some pain and swelling involving the left hand and the fingers and also some tenderness involving the lumbar spine area with some localized bruising in that area too. CENTRAL NERVOUS SYSTEM: He was alert, awake, oriented x3. Generally weak, but no focal sensory and/or motor deficit appreciated. LABORATORY DATA: Noted today, white count was 5.04, H&H is 9.8/28, platelet was 56. Sodium 136, potassium 4.0, chloride 104, carbon dioxide 23, BUN 7, creatinine 0.79, random glucose was 285, calcium 7.9. Total bilirubin 5.8, direct bilirubin 3.0, AST 62, ALT 34, alkaline phosphatase 219. Ammonia was 67. INR was 1.7 and PTT ratio was 1.4. IMAGING DATA: X-rays of the chest x-ray - no acute cardiopulmonary findings. Hand x-ray - no acute fracture except chronic fracture deformities of the fifth and potentially the fourth metacarpal. CT head - no acute intracranial pathology or findings, no fracture of the skull. Hip CT - no acute fracture or dislocation, mild to moderate acute osteoarthritis and also a mention about ascites. Lumbar spine CT - no acute osseous injury, chronic compression deformity of L1, mild osteopenia, postsurgical changes at L4-S1, chronic hardware complication with pedicle screw fracture as above and a small amount of ascites. EKG that was done during last admission - normal sinus rhythm, rate of 95. Normal axis and the minor nonspecific ST-T wave changes. IMPRESSION AND PLAN: 1. Recurrent falls at home, seems to be a mechanical fall secondary to weakness, has had an admission recently and no cardiac arrhythmias noted given that time. No significant injury from the fall except some back pain and bruising locally. He will get PT/OT evaluation and most likely he will need to be placed to prevent the fall. 2. Cirrhosis, status post TIPS. He does not have any hepatic encephalopathy at this time. We will continue his current medications. His bilirubin seems to be increasing. We can ask for a GI evaluation while in the hospital and again, continue his current medications for ongoing stenosis. 3. Diabetes type 2. We will continue his current dose of insulin at home and the way he was taking at home. 4. Hypothyroidism. Continue with replacement. 5. Anxiety and depression, continue Lexapro. 6. Seizure disorder. Continue with current medications. 7. History of pulmonary embolism and superior mesenteric vein thrombosis. He is status post IVC filter, not a candidate for anticoagulation due to low platelet. 8. Gastrointestinal prophylaxis, Protonix. 9. Deep venous thrombosis prophylaxis with sequential compression devices. No pharmacological anticoagulation due to bleeding risk and thrombocytopenia. 10. Code status. He will be a full code. In my clinical judgment, the beneficiary meets criteria as per CMS for 2-midnight stay in the hospital. MTDD
[2016-11-16] MEDS: LACTOBACILLUS ACIDOPHILUS (FLORANEX) TAB PO SCH (21:00)
[2016-11-16] MEDS: LACTULOSE SYRUP 20 GM/30 ML UDC PO SCH ×2 (21:00→21:26)
[2016-11-16] MEDS: POLYETHYLENE (MIRALAX) 17 GM PACK PO SCH (21:00)
[2016-11-16] MEDS: FERROUS SULFATE 325 MG TAB PO SCH (21:00)
[2016-11-16] MEDS: PANTOprazole SOD 40 MG TAB PO SCH (21:00)
[2016-11-16] MEDS: MAGNESIUM OXIDE 400 MG TAB PO SCH ×2 (21:00→21:25)
[2016-11-16] MEDS ORDERED: MELATONIN 2 MG PO SCH (21:00)
[2016-11-16] MEDS: PYRIDOXINE HCL 50 MG TAB PO SCH ×2 (21:00→21:26)
[2016-11-16] MEDS: INSULIN ASPART 100 UNITS/ML 3 ML PEN SQ SCH (21:18)
[2016-11-16] MEDS: INSULIN GLARGINE SOLOSTAR 100 UNITS/ML 3 ML PEN SC SCH (21:20)
[2016-11-16] MEDS: CLINDAMYCIN HCL 150 MG CAP PO SCH (21:23)
[2016-11-16] MEDS: LEVETIRACETAM 500 MG TAB PO SCH (21:25)
[2016-11-16] MEDS: RIFAXIMIN TAB 550 MG TAB PO SCH (21:25)
[2016-11-16] MEDS ORDERED: IV FLUIDS COMPLETED PRN (21:45)
[2016-11-16 23:58] VITALS: BP 112/63; PULSE 90; TEMP 36.7; O2SAT 98
[2016-11-17] MEDS: LEVOTHYROXINE 75 MCG TAB PO SCH (06:02)
[2016-11-17 06:45] LABS: HEMATOCRIT 27.2 % (42-52); MEAN CELL VOLUME 87.5 fL (80-100); MEAN CORPUSCULAR HEMOGLOBIN 30.5 pg (25-34); MEAN CORPUSCULAR HGB CONC 34.9 g/dl (32-36); RED BLOOD COUNT 3.11 M/uL (4.7-6.1); WHITE BLOOD COUNT 5.13 K/uL (4.8-10.8)
[2016-11-17 06:47] LABS: MEAN PLATELET VOLUME 9.9 fL (7.4-10.4); PLATELET COUNT 49 K/uL (130-400)
[2016-11-17 07:31] LABS: CREATININE 0.65 mg/dl (0.60-1.40)
[2016-11-17 07:32] LABS: BUN/CREATININE RATIO 10.4 (10-20); CALCIUM 7.6 mg/dl (8.5-10.1); MAGNESIUM 1.9 mg/dl (1.8-2.4); PHOSPHORUS 2.6 mg/dl (2.5-4.9); POTASSIUM 3.7 mmol/L (3.5-5.1)
[2016-11-17 07:42] VITALS: BP 106/58; PULSE 80; TEMP 36.6; O2SAT 98
[2016-11-17] MEDS: POLYETHYLENE (MIRALAX) 17 GM PACK PO SCH ×2 (09:00→20:35)
[2016-11-17] MEDS: HYDROmorphone HCL 2 MG TAB PO PRN ×2 (09:26→16:21)
[2016-11-17] MEDS: FUROSEMIDE 40 MG TAB PO SCH (09:26)
[2016-11-17] MEDS: LACTOBACILLUS ACIDOPHILUS (FLORANEX) TAB PO SCH ×3 (09:27→20:32)
[2016-11-17] MEDS: LEVETIRACETAM 500 MG TAB PO SCH ×2 (09:27→20:35)
[2016-11-17] MEDS: PANTOprazole SOD 40 MG TAB PO SCH ×2 (09:27→20:32)
[2016-11-17] MEDS: CLINDAMYCIN HCL 150 MG CAP PO SCH ×3 (09:27→20:30)
[2016-11-17] MEDS: RIFAXIMIN TAB 550 MG TAB PO SCH ×2 (09:27→20:33)
[2016-11-17] MEDS: FERROUS SULFATE 325 MG TAB PO SCH ×2 (09:28→20:31)
[2016-11-17] MEDS: SPIRONOLACTONE 100 MG TAB PO SCH ×2 (09:28→16:22)
[2016-11-17] MEDS: LACTULOSE SYRUP 20 GM/30 ML UDC PO SCH ×4 (09:28→20:29)
[2016-11-17] MEDS: ESCITALOPRAM OXALATE 20 MG TAB PO SCH (09:28)
[2016-11-17] MEDS: INSULIN ASPART 100 UNITS/ML 3 ML PEN SQ SCH ×3 (09:30→17:00)
[2016-11-17] MEDS: MAGNESIUM OXIDE 400 MG TAB PO SCH ×2 (09:30→20:35)
[2016-11-17] MEDS: INSULIN GLARGINE SOLOSTAR 100 UNITS/ML 3 ML PEN SC SCH ×2 (09:35→20:44)
--- NOTE | 2016-11-17 10:20 | Progress Note ---
Subjective Date of Service: Nov 17, 2016. Subjective Pt evaluation today including: conversation w/ patient, physical exam, lab review, review of studies, review of inpatient medication list Saw/examined the patient in room 259 He states he fell at home and hurt his L hand No other issues to note today Problem List Medical Problems: (1) Abdominal pain Status: Acute (2) Abdominal pain Status: Acute (3) Abdominal pain Status: Acute (4) Acute hyperglycemia Status: Acute (5) Ambulatory dysfunction Status: Acute (6) Ambulatory dysfunction Status: Acute (7) Anasarca Status: Acute (8) Anemia Status: Acute (9) Anemia Status: Acute (10) Anemia Status: Acute (11) Anemia Status: Acute (12) Anemia Status: Acute (13) Arm pain, right Status: Acute (14) Ascites Status: Acute (15) Ascites Status: Acute (16) Ascites Status: Acute (17) Ascites Status: Acute (18) Ascites Status: Acute (19) Cellulitis of scrotum Status: Acute (20) Chest pain Status: Acute (21) Chronic liver failure Status: Acute (22) Chronic low back pain Status: Acute (23) Chronic pain Status: Acute (24) Cirrhosis Status: Acute (25) Cirrhosis of liver Status: Acute (26) Contusion of left foot Status: Acute (27) Contusion of multiple sites Status: Acute (28) Dehydration Status: Acute (29) Diarrhea Status: Acute (30) Diarrhea Status: Acute (31) Diffuse abdominal pain Status: Acute (32) Diffuse abdominal pain Status: Acute (33) Diffuse abdominal pain Status: Acute (34) Diffuse abdominal pain Status: Acute (35) Dyspnea Status: Acute (36) Dyspnea Status: Acute (37) End stage liver disease Status: Chronic (38) Failure of outpatient treatment Status: Acute (39) Fall Status: Acute (40) Fall Status: Acute (41) Generalized weakness Status: Acute (42) Generalized weakness Status: Acute (43) Hepatic encephalopathy Status: Acute (44) HHNC (hyperglycemic hyperosmolar nonketotic coma) Status: Acute (45) Hyperammonemia Status: Acute (46) Hyperammonemia Status: Acute (47) Hyperglycemia Status: Acute (48) Hyperglycemia Status: Acute (49) Hyperglycemia Status: Acute (50) Hyperglycemia Status: Acute (51) Hyperglycemia due to type 2 diabetes mellitus Status: Acute (52) Hypoglycemia Status: Acute (53) Hypoglycemia Status: Acute (54) Intractable low back pain Status: Acute (55) Left arm pain Status: Acute (56) Left sided chest pain Status: Acute (57) Muscle weakness Status: Acute (58) Nausea vomiting and diarrhea Status: Acute (59) Nausea, vomiting, and diarrhea Status: Acute (60) Rectal bleeding Status: Acute (61) Syncope Status: Acute (62) Syncope Status: Acute (63) Thrombocytopenia Status: Acute (64) Thrombocytopenia Status: Acute (65) Thrombocytopenia Status: Acute (66) Weakness Status: Acute Review of Systems Constitutional: + weakness, No fever, No chills Respiratory: No shortness of breath Cardiac: No chest pain Abdomen: No pain, No nausea, No vomiting, No diarrhea, No constipation, No GI bleeding Musculoskeletal: + joint pain (L lateral hand) Neurologic: + balance problems Medications Current Inpatient Medications Medications (Trade) Dose Ordered Sig/Ryan Route Start Time Stop Time Status Last Admin Dose Admin Ondansetron HCl (Zofran Inj) 4 mg Q6H PRN IV 11/16/16 18:45 12/16/16 18:44 Clindamycin HCl (Cleocin Cap) 600 mg TID PO 11/16/16 21:00 11/26/16 20:59 11/17/16 09:27 600 MG Diphenhydramine HCl (Benadryl Cap) 25 mg BID PRN PO 11/16/16 18:45 12/16/16 18:44 Escitalopram Oxalate (Lexapro Tab) 20 mg DAILY PO 11/17/16 09:00 12/17/16 08:59 11/17/16 09:28 20 MG Furosemide (Lasix Tab) 40 mg DAILY PO 11/17/16 09:00 12/17/16 08:59 11/17/16 09:26 40 MG Hydromorphone HCl (Dilaudid Tab) 4 mg Q6 PRN PO 11/16/16 18:45 11/30/16 18:44 11/17/16 09:26 4 MG Insulin Aspart (novoLOG ASPART) 14 units TIDM SQ 11/17/16 08:00 12/17/16 07:59 11/17/16 09:30 14 UNITS Insulin Glargine (Lantus Solostar Pen) 38 units BID SC 11/16/16 21:00 12/16/16 20:59 10/13/17 09:35 38 UNITS Lactobacillus Acidophilus (Floranex Tab) 2 tab TID PO 11/16/16 21:00 12/16/16 20:59 11/17/16 09:27 2 TAB Lactulose (Chronulac Syrup) 20 gm QID PO 11/16/16 21:00 12/16/16 20:59 11/17/16 09:28 20 GM Levetiracetam (Keppra Tab) 500 mg BID PO 11/16/16 21:00 12/16/16 20:59 11/17/16 09:27 500 MG Levothyroxine Sodium (Synthroid Tab) 75 mcg DAILYBB PO 11/17/16 06:30 12/17/16 06:59 11/17/16 06:02 75 MCG Pantoprazole Sodium (Protonix Tab) 40 mg BID PO 11/16/16 21:00 12/16/16 20:59 11/17/16 09:27 40 MG Rifaximin (Xifaxan Tab) 550 mg BID PO 11/16/16 21:00 12/16/16 20:59 11/17/16 09:27 550 MG Spironolactone (Aldactone Tab) 100 mg BID17 PO 11/17/16 09:00 12/17/16 08:59 11/17/16 09:28 100 MG Ferrous Sulfate (Feosol Tab) 325 mg BID PO 11/16/16 21:00 12/16/16 20:59 11/17/16 09:28 325 MG Polyethylene (Miralax Powder Packet) 17 gm BID PO 11/16/16 21:00 12/16/16 20:59 Pyridoxine HCl (Vitamin B-6 Tab) 25 mg HS PO 11/16/16 21:00 12/16/16 20:59 11/16/16 21:26 25 MG Magnesium Oxide (Mag-Ox Tab) 400 mg BID PO 11/16/16 21:00 12/16/16 20:59 11/17/16 09:30 400 MG Miscellaneous (Iv Fluids Completed) 1 ea PRN PRN N/A 11/16/16 21:45 11/16/17 21:44 Objective Vital Signs Date Time Temp Pulse Resp B/P (MAP) Pulse Ox O2 Delivery O2 Flow Rate FiO2 11/17/16 07:42 36.6 80 20 106/58 (74) 98 11/17/16 00:00 Room Air 11/16/16 23:58 36.7 90 20 112/63 (79) 98 Room Air 11/16/16 19:45 36.3 104 18 138/76 (96) 97 Room Air 11/16/16 19:40 Room Air 11/16/16 19:21 68 16 134/76 98 Room Air 11/16/16 17:21 72 14 145/76 98 Room Air 11/16/16 15:37 36.5 88 16 138/76 98 Room Air Physical Exam General Appearance: no apparent distress Respiratory/Chest: lungs clear, normal breath sounds, no respiratory distress, no accessory muscle use Cardiovascular: regular rate, rhythm, no murmur Abdomen: normal bowel sounds, non tender, soft Extremities: + pertinent finding (+2 pitting edema b/l LE; L hand, 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, tenderness to palpation at L lateral hand) Laboratory Results Last 24 Hours Test 11/16/16 16:53 11/16/16 20:04 11/17/16 06:32 11/17/16 07:30 White Blood Count 5.04 K/uL 5.13 K/uL Red Blood Count 3.28 M/uL 3.11 M/uL Hemoglobin 9.8 g/dL 9.5 g/dL Hematocrit 28.0 % 27.2 % Mean Corpuscular Volume 85.4 fL 87.5 fL Mean Corpuscular Hemoglobin 29.9 pg 30.5 pg Mean Corpuscular Hemoglobin Concent 35.0 g/dl 34.9 g/dl Platelet Count 56 K/uL 49 K/uL Mean Platelet Volume 10.3 fL 9.9 fL Neutrophils (%) (Auto) 78.0 % Lymphocytes (%) (Auto) 10.3 % Monocytes (%) (Auto) 8.5 % Eosinophils (%) (Auto) 2.6 % Basophils (%) (Auto) 0.4 % Neutrophils # (Auto) 3.93 K/uL Lymphocytes # (Auto) 0.52 K/uL Monocytes # (Auto) 0.43 K/uL Eosinophils # (Auto) 0.13 K/uL Basophils # (Auto) 0.02 K/uL RDW Standard Deviation 64.3 fL 67.0 fL RDW Coefficient of Variation 20.7 % 21.1 % Immature Granulocyte % (Auto) 0.2 % Immature Granulocyte # (Auto) 0.01 K/uL Anisocytosis PRESENT Schistocytes OCCASIONAL Prothrombin Time 18.5 SECONDS Prothromb Time International Ratio 1.7 Activated Partial Thromboplast Time 36.2 SECONDS Partial Thromboplastin Ratio 1.4 Sodium Level 136 mmol/L 138 mmol/L Potassium Level 4.0 mmol/L 3.7 mmol/L Chloride Level 104 mmol/L 107 mmol/L Carbon Dioxide Level 23 mmol/L 25 mmol/L Anion Gap 9.0 mmol/L 6.0 mmol/L Blood Urea Nitrogen 7 mg/dl 7 mg/dl Creatinine 0.79 mg/dl 0.65 mg/dl Est Creatinine Clear Calc Drug Dose 106.4 ml/min 129.4 ml/min Estimated GFR () 111.5 120.8 Estimated GFR (Non- 96.2 104.3 BUN/Creatinine Ratio 9.1 10.4 Random Glucose 285 mg/dl 165 mg/dl Calcium Level 7.9 mg/dl 7.6 mg/dl Total Bilirubin 5.8 mg/dl Direct Bilirubin 3.0 mg/dl Aspartate Amino Transf (AST/SGOT) 62 U/L Alanine Aminotransferase (ALT/SGPT) 34 U/L Alkaline Phosphatase 219 U/L Ammonia 67.0 umol/L Total Protein 5.2 gm/dl Albumin 2.4 gm/dl Bedside Glucose 236 mg/dl 137 mg/dl Phosphorus Level 2.6 mg/dl Magnesium Level 1.9 mg/dl Assessment and Plan This is a 61 year old male with a PMH of [place]OU[place] cirrhosis, recurrent ascites requiring recurrent paracentesis with recent TIPS procedure at [place], multiple complications regarding cirrhosis including encephalopathy, esophageal varices, thrombocytopenia; he has insulin dependent DM2, Hypothyroidism, HLD, chronic pain syndrome, hx. of PE presented with a fall at home Fall, Generalized Weakness imaging of hand and hip suggest no acute fracture will continue home pain medications, no IV narcotics PT/OT evaluations will need placement to SNF vs. rehab [place] cirrhosis s/p TIPS procedure continue home medications including Lasix/Aldactone, Lactulose, Rifaximin, Vitamin B6 GI consulted due to elevated total bilirubin level Insulin Dependent DM2 for now continue Lantus 38 units BID and Novolog 14 units with meals monitor the BSGs and we'll adjust accordingly Anxiety/Depression continue Lexapro Seizure Disorder continue Keppra Hx. of PE s/p IVC filter; no anticoagulation due to bleed risk DVT ppx SCDs FULL CODE
[2016-11-17 15:07] VITALS: BP 120/70; PULSE 89; TEMP 36.7; O2SAT 97
[2016-11-17] MEDS: ONDANSETRON INJ 2 MG/ML 2 ML VIAL IV PRN (17:51)
[2016-11-17] MEDS: PYRIDOXINE HCL 50 MG TAB PO SCH (20:34)
[2016-11-18 00:02] VITALS: BP 107/65; PULSE 87; TEMP 36.7; O2SAT 96
[2016-11-18] MEDS: HYDROmorphone HCL 2 MG TAB PO PRN ×2 (03:24→09:04)
[2016-11-18] MEDS: LEVOTHYROXINE 75 MCG TAB PO SCH (05:40)
[2016-11-18 07:44] VITALS: BP 123/62; PULSE 87; TEMP 36.8; O2SAT 98
[2016-11-18 07:51] LABS: BUN/CREATININE RATIO 7.3 (10-20); CALCIUM 7.8 mg/dl (8.5-10.1); CREATININE 0.77 mg/dl (0.60-1.40); POTASSIUM 3.7 mmol/L (3.5-5.1)
[2016-11-18 07:55] LABS: ALB/GLOB RATIO 0.7 (0.9-2)
[2016-11-18 08:00] VITALS: O2SAT 98
[2016-11-18 08:20] LABS: HEMATOCRIT 28.4 % (42-52); MEAN CELL VOLUME 87.4 fL (80-100); MEAN CORPUSCULAR HEMOGLOBIN 30.5 pg (25-34); MEAN CORPUSCULAR HGB CONC 34.9 g/dl (32-36); RED BLOOD COUNT 3.25 M/uL (4.7-6.1); WHITE BLOOD COUNT 5.42 K/uL (4.8-10.8)
[2016-11-18 08:22] LABS: MEAN PLATELET VOLUME 10.7 fL (7.4-10.4); PLATELET COUNT 57 K/uL (130-400)
[2016-11-18] MEDS: ONDANSETRON INJ 2 MG/ML 2 ML VIAL IV PRN (08:24)
[2016-11-18] MEDS: RIFAXIMIN TAB 550 MG TAB PO SCH (08:30)
[2016-11-18] MEDS: SPIRONOLACTONE 100 MG TAB PO SCH (08:30)
[2016-11-18] MEDS: LEVETIRACETAM 500 MG TAB PO SCH (08:30)
[2016-11-18] MEDS: ESCITALOPRAM OXALATE 20 MG TAB PO SCH (08:30)
[2016-11-18] MEDS: MAGNESIUM OXIDE 400 MG TAB PO SCH (08:30)
[2016-11-18] MEDS: FUROSEMIDE 40 MG TAB PO SCH (08:30)
[2016-11-18] MEDS: PANTOprazole SOD 40 MG TAB PO SCH (08:31)
[2016-11-18] MEDS: LACTOBACILLUS ACIDOPHILUS (FLORANEX) TAB PO SCH (08:31)
[2016-11-18] MEDS: CLINDAMYCIN HCL 150 MG CAP PO SCH (08:31)
[2016-11-18] MEDS: FERROUS SULFATE 325 MG TAB PO SCH (08:31)
[2016-11-18] MEDS: INSULIN GLARGINE SOLOSTAR 100 UNITS/ML 3 ML PEN SC SCH (08:55)
[2016-11-18] MEDS: POLYETHYLENE (MIRALAX) 17 GM PACK PO SCH (08:56)
[2016-11-18] MEDS: LACTULOSE SYRUP 20 GM/30 ML UDC PO SCH (08:56)
[2016-11-18] MEDS: INSULIN ASPART 100 UNITS/ML 3 ML PEN SQ SCH (08:56)
--- NOTE | 2016-11-18 08:59 | Progress Note ---
Subjective Date of Service: Nov 18, 2016. Subjective Pt evaluation today including: conversation w/ patient, physical exam, lab review, review of studies, review of inpatient medication list Saw/examined the patient in room 259 He is doing well Wrist pain has subsided +nausea, but no vomiting, good PO intake No fluid buildup in the abdomen some edema in the lower extremities - chronic Eager to go home Problem List Medical Problems: (1) Abdominal pain Status: Acute (2) Abdominal pain Status: Acute (3) Abdominal pain Status: Acute (4) Acute hyperglycemia Status: Acute (5) Ambulatory dysfunction Status: Acute (6) Ambulatory dysfunction Status: Acute (7) Anasarca Status: Acute (8) Anemia Status: Acute (9) Anemia Status: Acute (10) Anemia Status: Acute (11) Anemia Status: Acute (12) Anemia Status: Acute (13) Arm pain, right Status: Acute (14) Ascites Status: Acute (15) Ascites Status: Acute (16) Ascites Status: Acute (17) Ascites Status: Acute (18) Ascites Status: Acute (19) Cellulitis of scrotum Status: Acute (20) Chest pain Status: Acute (21) Chronic liver failure Status: Acute (22) Chronic low back pain Status: Acute (23) Chronic pain Status: Acute (24) Cirrhosis Status: Acute (25) Cirrhosis of liver Status: Acute (26) Contusion of left foot Status: Acute (27) Contusion of multiple sites Status: Acute (28) Dehydration Status: Acute (29) Diarrhea Status: Acute (30) Diarrhea Status: Acute (31) Diffuse abdominal pain Status: Acute (32) Diffuse abdominal pain Status: Acute (33) Diffuse abdominal pain Status: Acute (34) Diffuse abdominal pain Status: Acute (35) Dyspnea Status: Acute (36) Dyspnea Status: Acute (37) End stage liver disease Status: Chronic (38) Failure of outpatient treatment Status: Acute (39) Fall Status: Acute (40) Fall Status: Acute (41) Generalized weakness Status: Acute (42) Generalized weakness Status: Acute (43) Hepatic encephalopathy Status: Acute (44) HHNC (hyperglycemic hyperosmolar nonketotic coma) Status: Acute (45) Hyperammonemia Status: Acute (46) Hyperammonemia Status: Acute (47) Hyperglycemia Status: Acute (48) Hyperglycemia Status: Acute (49) Hyperglycemia Status: Acute (50) Hyperglycemia Status: Acute (51) Hyperglycemia due to type 2 diabetes mellitus Status: Acute (52) Hypoglycemia Status: Acute (53) Hypoglycemia Status: Acute (54) Intractable low back pain Status: Acute (55) Left arm pain Status: Acute (56) Left sided chest pain Status: Acute (57) Muscle weakness Status: Acute (58) Nausea vomiting and diarrhea Status: Acute (59) Nausea, vomiting, and diarrhea Status: Acute (60) Rectal bleeding Status: Acute (61) Syncope Status: Acute (62) Syncope Status: Acute (63) Thrombocytopenia Status: Acute (64) Thrombocytopenia Status: Acute (65) Thrombocytopenia Status: Acute (66) Weakness Status: Acute Review of Systems Constitutional: + weakness Respiratory: No cough, No sputum, No shortness of breath Cardiac: + edema, No chest pain, No palpitations Abdomen: + nausea, No pain, No vomiting, No diarrhea, No constipation Heme: No abnormal bleeding/bruising Medications Current Inpatient Medications Medications (Trade) Dose Ordered Sig/Ryan Route Start Time Stop Time Status Last Admin Dose Admin Ondansetron HCl (Zofran Inj) 4 mg Q6H PRN IV 11/16/16 18:45 12/16/16 18:44 11/17/16 17:51 4 MG Clindamycin HCl (Cleocin Cap) 600 mg TID PO 11/16/16 21:00 11/26/16 20:59 11/17/16 20:30 600 MG Diphenhydramine HCl (Benadryl Cap) 25 mg BID PRN PO 11/16/16 18:45 12/16/16 18:44 Escitalopram Oxalate (Lexapro Tab) 20 mg DAILY PO 11/17/16 09:00 12/17/16 08:59 11/17/16 09:28 20 MG Furosemide (Lasix Tab) 40 mg DAILY PO 11/17/16 09:00 12/17/16 08:59 11/17/16 09:26 40 MG Hydromorphone HCl (Dilaudid Tab) 4 mg Q6 PRN PO 11/16/16 18:45 11/30/16 18:44 11/18/16 03:24 4 MG Insulin Aspart (novoLOG ASPART) 14 units TIDM SQ 11/17/16 08:00 12/17/16 07:59 11/17/16 12:47 14 UNITS Insulin Glargine (Lantus Solostar Pen) 38 units BID SC 11/16/16 21:00 12/16/16 20:59 11/17/16 20:44 38 UNITS Lactobacillus Acidophilus (Floranex Tab) 2 tab TID PO 11/16/16 21:00 12/16/16 20:59 11/17/16 20:32 2 TAB Lactulose (Chronulac Syrup) 20 gm QID PO 11/16/16 21:00 12/16/16 20:59 11/17/16 20:29 20 GM Levetiracetam (Keppra Tab) 500 mg BID PO 11/16/16 21:00 12/16/16 20:59 11/17/16 20:35 500 MG Levothyroxine Sodium (Synthroid Tab) 75 mcg DAILYBB PO 11/17/16 06:30 12/17/16 06:59 11/18/16 05:40 75 MCG Pantoprazole Sodium (Protonix Tab) 40 mg BID PO 11/16/16 21:00 12/16/16 20:59 11/17/16 20:32 40 MG Rifaximin (Xifaxan Tab) 550 mg BID PO 11/16/16 21:00 12/16/16 20:59 11/17/16 20:33 550 MG Spironolactone (Aldactone Tab) 100 mg BID17 PO 11/17/16 09:00 12/17/16 08:59 11/17/16 16:22 100 MG Ferrous Sulfate (Feosol Tab) 325 mg BID PO 11/16/16 21:00 12/16/16 20:59 11/17/16 20:31 325 MG Polyethylene (Miralax Powder Packet) 17 gm BID PO 11/16/16 21:00 12/16/16 20:59 Pyridoxine HCl (Vitamin B-6 Tab) 25 mg HS PO 11/16/16 21:00 12/16/16 20:59 11/17/16 20:34 25 MG Magnesium Oxide (Mag-Ox Tab) 400 mg BID PO 11/16/16 21:00 12/16/16 20:59 11/17/16 20:35 400 MG Miscellaneous (Iv Fluids Completed) 1 ea PRN PRN N/A 11/16/16 21:45 11/16/17 21:44 Objective Vital Signs Date Time Temp Pulse Resp B/P (MAP) Pulse Ox O2 Delivery O2 Flow Rate FiO2 11/18/16 07:44 36.8 87 20 123/62 (82) 98 11/18/16 00:02 36.7 87 17 107/65 (79) 96 Room Air 11/18/16 00:00 Room Air 11/17/16 20:00 Room Air 11/17/16 16:00 Room Air 11/17/16 15:07 36.7 89 18 120/70 (87) 97 Physical Exam General Appearance: no apparent distress Respiratory/Chest: chest non-tender, lungs clear, normal breath sounds, no respiratory distress, no accessory muscle use Cardiovascular: regular rate, rhythm, no murmur Abdomen: non tender, soft, + hernia Extremities: + pertinent finding (+1 pitting edema b/l LE) Neurologic/Psychiatric: no motor/sensory deficits, alert, normal mood/affect, oriented x 3 Skin: normal color Laboratory Results Last 24 Hours Test 11/17/16 11:13 11/17/16 16:28 11/17/16 20:16 11/18/16 06:52 Bedside Glucose 80 mg/dl 71 mg/dl 103 mg/dl White Blood Count K/uL Red Blood Count M/uL Hemoglobin g/dL Hematocrit % Mean Corpuscular Volume fL Mean Corpuscular Hemoglobin pg Mean Corpuscular Hemoglobin Concent g/dl RDW Standard Deviation fL RDW Coefficient of Variation % Platelet Count K/uL Sodium Level 139 mmol/L Potassium Level 3.7 mmol/L Chloride Level 106 mmol/L Carbon Dioxide Level 26 mmol/L Anion Gap 7.0 mmol/L Blood Urea Nitrogen 6 mg/dl Creatinine 0.77 mg/dl Est Creatinine Clear Calc Drug Dose 109.2 ml/min Estimated GFR () 112.7 Estimated GFR (Non- 97.3 BUN/Creatinine Ratio 7.3 Random Glucose 65 mg/dl Calcium Level 7.8 mg/dl Total Bilirubin 5.1 mg/dl Aspartate Amino Transf (AST/SGOT) 79 U/L Alanine Aminotransferase (ALT/SGPT) 35 U/L Alkaline Phosphatase 168 U/L Total Protein 4.8 gm/dl Albumin 2.0 gm/dl Globulin 2.8 gm/dl Albumin/Globulin Ratio 0.7 Test 11/18/16 07:28 11/18/16 07:29 10/14/17 07:47 Bedside Glucose 118 mg/dl 116 mg/dl White Blood Count 5.42 K/uL Red Blood Count 3.25 M/uL Hemoglobin 9.9 g/dL Hematocrit 28.4 % Mean Corpuscular Volume 87.4 fL Mean Corpuscular Hemoglobin 30.5 pg Mean Corpuscular Hemoglobin Concent 34.9 g/dl RDW Standard Deviation 67.7 fL RDW Coefficient of Variation 20.9 % Platelet Count 57 K/uL Mean Platelet Volume 10.7 fL Assessment and Plan This is a 61 year old male with a PMH of BETANCOURT cirrhosis, recurrent ascites requiring recurrent paracentesis with recent TIPS procedure at [place], multiple complications regarding cirrhosis including encephalopathy, esophageal varices, thrombocytopenia; he has insulin dependent DM2, Hypothyroidism, HLD, chronic pain syndrome, hx. of PE presented with a fall at home Fall, Generalized Weakness imaging of hand and hip suggest no acute fracture will continue home pain medications, no IV narcotics PT/OT evaluations patient would prefer to go home with home health - on November 29, will be going to [place] to be picked up by sister BETANCOURT cirrhosis s/p TIPS procedure continue home medications including Lasix/Aldactone, Lactulose, Rifaximin, Vitamin B6 outpatient GI f/u - ERCP Insulin Dependent DM2 for now continue Lantus 38 units BID and Novolog 14 units with meals monitor the BSGs and we'll adjust accordingly Anxiety/Depression continue Lexapro Seizure Disorder continue Keppra Hx. of PE s/p IVC filter; no anticoagulation due to bleed risk DVT ppx SCDs FULL CODE
[2016-11-18] MEDS ORDERED: CLIN300C2 PO ×2 (10:23)
--- NOTE | 2016-11-18 10:39 | Discharge Instructions ---
Discharge Instructions Date of Service Nov 18, 2016. Admission Reason for Admission: Cirrhosis Of Liver, Fall At Home, Generalized Weak Discharge Discharge Diagnosis / Problem: BETANCOURT cirrhosis, Mechanical Fall, Generalized Weakness Discharge Goals Goal(s): Decrease discomfort, Improve function, Diagnostic testing, Therapeutic intervention Activity Recommendations Activity Limitations: resume your previous activity . Instructions / Follow-Up Instructions / Follow-Up Please follow-up with Dr. Trent on November 27 at 11:05AM * Use walker at all times with ambulation * You will be discharged home with home health Current Hospital Diet Patient's current hospital diet: Low Sodium Diet (2gm Na), Diabetes Type 2 Diet Discharge Diet Recommended Diet: Low Sodium Diet (2gm Na), Diabetes Type 2 Diet Pending Studies Studies pending at discharge: no Laboratory Results Hemoglobin A1c Test 10/02/16 06:54 Range/Units Estimated Average Glucose 260 mg/dl Hemoglobin A1c 10.7 H 4.5-5.6 % Medical Emergencies . Who to Call and When: Medical Emergencies: If at any time you feel your situation is an emergency, please call 911 immediately. . Non-Emergent Contact Non-Emergency issues call your: Primary Care Provider . . "Provider Documentation" section prepared by Korey Veronica. . VTE Core Measure Inpt VTE Proph given/why not?: SCD's
--- NOTE | 2016-11-18 10:44 | Discharge Summary ---
Discharge Summary Date of Service Nov 18, 2016. Discharge Summary Admission Date: Nov 16, 2016 at 18:35 Discharge Date: Nov 18, 2016 Discharge Disposition: Home with services Principal Diagnosis: mechanical fall BETANCOURT cirrhosis Medication Reconciliation Continued Medications: Clindamycin Hcl (Cleocin) 300 Mg Cap 600 MG PO TID for 3 Days, #18 CAP (This prescription has been renewed) Diphenhydramine Hcl (Benadryl) 25 Mg Cap 25 MG PO BID PRN for Itching Escitalopram Oxalate (Lexapro) 20 Mg Tab 20 MG PO DAILY, TAB Ferrous Sulfate (Kp Ferrous Sulfate) 325 Mg Tab 325 MG PO BID, TAB Furosemide (Lasix) 40 Mg Tab 40 MG PO DAILY, TAB Hydromorphone Hcl (Dilaudid) 4 Mg Tab 4 MG PO Q6 PRN for Pain, TAB Insulin Aspart (Novolog) 100 Units/Ml Inj 14 UNITS SQ TIDM PLUS SLIDING SCALE Insulin Glargine (Lantus) 100 Unit/Ml Inj 38 UNITS SC BID Lactobacillus Acidophilus (Lactinex) Tab 2 TAB PO TID, TAB Lactulose (Chronulac) 10 Gm/15 Ml Syrp 20 ML PO QID Levetiractam (Levetiracetam) 500 Mg Tab 500 MG PO BID Levothyroxine Sodium (Synthroid) 75 Mcg Tab 75 MCG PO QAM Magnesium Oxide (Mag-Ox) 400 Mg Tab 400 MG PO BID Melatonin (Kp Melatonin) 3 Mg Tab 2 MG PO HS for 30 Days, #30 TAB Ondasetron Odt (Zofran Odt) 4 Mg Tab 1-2 MG SL Q8 PRN for Nausea or Vomiting, TAB Pantoprazole (Protonix) 40 Mg Tab 40 MG PO BID, TAB Polyethylene Glycol 3350 (Miralax) 1 Pow Pow 17 GM PO BID Pyridoxine Hcl (Vitamin B-6) 25 Mg Tab 25 MG PO HS Rifaximin (Xifaxan) 550 Mg Tab 550 MG PO BID, TAB Spironolactone (Aldactone) 100 Mg Tab 100 MG PO BID Triamcinolone Acet (Aristocort 0.1%) 90 Appln/30 Gm Cr 1 APPL EXT BID PRN for dermatitis Admission Information HPI (per Admitting provider): DATE OF ADMISSION: 11/16/2016 PRIMARY CARE PHYSICIAN: Dr. Wolf. CHIEF COMPLAINT: Status post fall at home. HISTORY OF PRESENT ILLNESS: He is a 61-year-old male with significant past medical history of cirrhosis with recurrent ascites and recent status post TIPS procedure in [place], depression, diabetes type 2, esophageal varices, hypothyroidism, portal hypertension, history of pulmonary embolism, seizure disorder and also superior mesenteric vein thrombosis. Apparently, was in the hospital recently with syncope and collapse. During that time, he has had a mechanical fall and he was in telemetry unit. He did not have any arrhythmias or any injury from the fall. He was discharged home day before yesterday, the same day, he came back in the ER with anxiety attack and he was sent home. Again, he lives alone and he is very weak and lethargic at times. Previously refused to go to any rehab, so today, he has had a fall at his porch and he injured his back and called 911 and brought into the Emergency Room. In the Emergency Room, he denies to have any palpitation, any chest pain, any shortness of breath, any dizziness, before the fall. it was a mechanical fall and he mentioned that he lost consciousness, he does not know how long and he injured his back. In the ER, he was hemodynamically stable and apparent blood test including CAT scan of the head and lumbar spine and also x-rays did not show any significant fracture or any lab abnormality, but given the history of frequent fall and unsafe at home, he was admitted to medical floor for continuation of care. PAST MEDICAL HISTORY: Significant for End Stage cirrhosis, status post TIPS procedure in [place] recently; diabetes type 2, on insulin; history of esophageal varices, history of GI bleed, hypothyroidism, history of pericardial effusion and pulmonary embolism, seizure disorder and also depression and anxiety. PAST SURGICAL HISTORY: Significant for right knee surgery, cervical spinal fusion, status post IVC filter, lumbar spine fusion and status post TIPS procedure in [place]. FAMILY HISTORY: Significant that father did have coronary artery disease and mother did have breast cancer. SOCIAL HISTORY: He lives alone. He is single. He is retired. He does not smoke. He used to use alcohol but not now, and he does not use any IV drugs. REVIEW OF SYSTEMS: CENTRAL NERVOUS SYSTEM: No headache, no blurred vision, no numbness or tingling in the extremities. RESPIRATORY: No shortness of breath, no chest pain, no cough or fever, chills. CARDIOVASCULAR: No chest pain, palpitation. GASTROINTESTINAL: No abdominal distention, nausea or vomiting. MUSCULOSKELETAL: Does have back pain and also pain in the left hand, status post fall and generally he complains to have edema and also bruising, especially the back and the other 3 years. He does have any adenopathy. ALLERGIES: ALLERGIC TO TYLENOL, MORPHINE, NSAIDS, PENICILLIN, FENTANYL, LEVOFLOXACIN, VANCOMYCIN, AND TRAMADOL. MEDICATIONS: As an outpatient, he has been on magnesium oxide 400 mg b.i.d., Zofran 8 mg 1-2 tablets q. 8 hourly as needed, Aristocort cream as directed, clindamycin 300 mg t.i.d. for 10 days, Benadryl 25 mg b.i.d. as needed, Lexapro 20 mg daily, ferrous sulfate 325 mg b.i.d., furosemide 40 mg daily, Dilaudid 4 mg q. 6 hourly as needed, NovoLog 14 units subQ 3 times daily, Lantus 38 units subQ b.i.d., Lactinex 2 tablets t.i.d., lactulose 20 mL p.o. q.i.d., Levetiracetam 500 mg b.i.d., Synthroid 75 mcg in the morning, melatonin 3 mg at night, Protonix 40 mg b.i.d., MiraLax 17 grams b.i.d., vitamin B6 25 mg at night, Rifaxamin 550 mg b.i.d. and spironolactone 100 mg tablet b.i.d. PHYSICAL EXAMINATION: GENERAL: On examination in the Emergency Room, he was not having any acute distress. No confusion. VITAL SIGNS: Temperature 36.5, pulse was 72, blood pressure 145/76, saturation 98% on room air. HEENT: Unremarkable. NECK: Supple. No JVD, no bruit. CHEST: Clear to auscultate bilaterally with some decreased breath sounds, both sides. HEART: S1, S2 regular, no murmur. ABDOMEN: Soft, benign, mildly tender in the epigastrium. No organomegaly. Bowel sounds present. EXTREMITIES: 1-2+ edema bilaterally, more on the right than the left. MUSCULOSKELETAL SYSTEM: Did show some pain and swelling involving the left hand and the fingers and also some tenderness involving the lumbar spine area with some localized bruising in that area too. CENTRAL NERVOUS SYSTEM: He was alert, awake, oriented x3. Generally weak, but no focal sensory and/or motor deficit appreciated. LABORATORY DATA: Noted today, white count was 5.04, H&H is 9.8/28, platelet was 56. Sodium 136, potassium 4.0, chloride 104, carbon dioxide 23, BUN 7, creatinine 0.79, random glucose was 285, calcium 7.9. Total bilirubin 5.8, direct bilirubin 3.0, AST 62, ALT 34, alkaline phosphatase 219. Ammonia was 67. INR was 1.7 and PTT ratio was 1.4. IMAGING DATA: X-rays of the chest x-ray - no acute cardiopulmonary findings. Hand x-ray - no acute fracture except chronic fracture deformities of the fifth and potentially the fourth metacarpal. CT head - no acute intracranial pathology or findings, no fracture of the skull. Hip CT - no acute fracture or dislocation, mild to moderate acute osteoarthritis and also a mention about ascites. Lumbar spine CT - no acute osseous injury, chronic compression deformity of L1, mild osteopenia, postsurgical changes at L4-S1, chronic hardware complication with pedicle screw fracture as above and a small amount of ascites. EKG that was done during last admission - normal sinus rhythm, rate of 95. Normal axis and the minor nonspecific ST-T wave changes. IMPRESSION AND PLAN: 1. Recurrent falls at home, seems to be a mechanical fall secondary to weakness, has had an admission recently and no cardiac arrhythmias noted given that time. No significant injury from the fall except some back pain and bruising locally. He will get PT/OT evaluation and most likely he will need to be placed to prevent the fall. 2. Cirrhosis, status post TIPS. He does not have any hepatic encephalopathy at this time. We will continue his current medications. His bilirubin seems to be increasing. We can ask for a GI evaluation while in the hospital and again, continue his current medications for ongoing stenosis. 3. Diabetes type 2. We will continue his current dose of insulin at home and the way he was taking at home. 4. Hypothyroidism. Continue with replacement. 5. Anxiety and depression, continue Lexapro. 6. Seizure disorder. Continue with current medications. 7. History of pulmonary embolism and superior mesenteric vein thrombosis. He is status post IVC filter, not a candidate for anticoagulation due to low platelet. 8. Gastrointestinal prophylaxis, Protonix. 9. Deep venous thrombosis prophylaxis with sequential compression devices. No pharmacological anticoagulation due to bleeding risk and thrombocytopenia. 10. Code status. He will be a full code. In my clinical judgment, the beneficiary meets criteria as per CMS for 2-midnight stay in the hospital. Hospital Course This is a 61 year old male with a PMH of BETANCOURT cirrhosis, recurrent ascites requiring recurrent paracentesis with recent TIPS procedure at [place], multiple complications regarding cirrhosis including encephalopathy, esophageal varices, thrombocytopenia; he has insulin dependent DM2, Hypothyroidism, HLD, chronic pain syndrome, hx. of PE presented with a fall at home Fall, Generalized Weakness imaging of hand and hip suggest no acute fracture will continue home pain medications, no IV narcotics PT/OT evaluations patient would prefer to go home with home health - on November 29, will be going to [place] to be picked up by sister BETANCOURT cirrhosis s/p TIPS procedure continue home medications including Lasix/Aldactone, Lactulose, Rifaximin, Vitamin B6 outpatient GI f/u - ERCP Insulin Dependent DM2 for now continue Lantus 38 units BID and Novolog 14 units with meals monitor the BSGs and we'll adjust accordingly Anxiety/Depression continue Lexapro Seizure Disorder continue Keppra Hx. of PE s/p IVC filter; no anticoagulation due to bleed risk DVT ppx SCDs FULL CODE Total time spent on discharge = 20 minutes This includes examination of the patient, discharge planning, medication reconciliation, and communication with other providers. Discharge Instructions Please follow-up with Dr. Trent on November 27 at 11:05AM * Use walker at all times with ambulation * You will be discharged home with home health
[2016-11-18 11:32] VITALS: BP 123/62; PULSE 87; TEMP 36.8; O2SAT 98
== END 2016-11-18 12:00 | disposition home health service (06) ==
LOC: EDBD 15:28 → C.EDC 15:30 → C.MS2W 18:35 → ENRESERV 19:15
PROVIDERS: ADMIT Internal Medicine; ATTEND Family Medicine
DX: K75.81 Nonalcoholic steatohepatitis (NASH) (principal); S39.92XA Unspecified injury of lower back, initial encounter; M79.642 Pain in left hand; W19.XXXA Unspecified fall, initial encounter; E11.9 Type 2 diabetes mellitus without complications; E03.9 Hypothyroidism, unspecified; F41.9 Anxiety disorder, unspecified; F32.9 Major depressive disorder, single episode, unspecified; G40.909 Epilepsy, unspecified, not intractable, without status epilepticus; Z79.4 Long term (current) use of insulin; K76.6 Portal hypertension; Z86.711 Personal history of pulmonary embolism; Z98.890 Other specified postprocedural states; Z82.49 Family history of ischemic heart disease and other diseases of the circulatory system; Z88.0 Allergy status to penicillin; Z88.1 Allergy status to other antibiotic agents; Z88.5 Allergy status to narcotic agent

== ENCOUNTER 2016-11-19 14:24 | Emergency (ER) | payer OTHER ==
[~2016-11-19] VITALS: Ht 182.9 cm; Wt 80.2 kg
[2016-11-19 14:28] VITALS: TEMP 36.8; Ht 182.9 cm; Wt 80.2 kg
[2016-11-19] MEDS ORDERED: ONDANSETRON INJ 2 MG/ML 2 ML VIAL IV STA (14:40)
[2016-11-19] MEDS ORDERED: SODIUM CHLORIDE 0.9% 1000ML 1,000 ML IV STA (14:44)
--- NOTE | 2016-11-19 15:02 | EMERGENCY ROOM VISIT NOTE ---
History Report prepared by Alla: Victorina Mccord Under the Supervision of: Dr. Adrian Miner D.O. First contact with patient: 14:30 Chief Complaint: ABDOMINAL PAIN Stated Complaint: ABDOMINAL PAIN Nursing Triage Summary: Pt. arrives to exam room via EMS transport with reports of nausea, dark stools, abdominal pain, diarrhea and "ran out of pain pills and don't have any of my stomach medicine neither." History of Present Illness The patient is a 61 year old male who presents to the Emergency Room with complaints of persistent abdominal pain starting [employer]. He presents to the ED by EMS. The patient has a history of end stage liver disease. He was just discharged from the hospital yesterday. He states that he is too sick to function. He ran out of his Zofran and pain medications 4 days ago. He reports swelling to his right arm and legs. He has had the arm swelling for 2-3 days. He has been having black stool which was not found to have blood. He is nauseated and vomiting. He has been unable to keep food or liquids down. He has abdominal pain and back pain. He denies any hematemesis or SOB. He had a TIPS procedure 2 weeks ago at which time he also had his last paracentesis. He is scheduled for an upper GI in a couple days. He lives alone at home. Source of History: patient Onset: YOU[employer] Position: abdomen Quality: other (pain) Timing: other (persistent) Associated Symptoms: + nausea, + vomiting, + back pain, No SOB Note: Pt reports black stool, swelling to the right arm and legs. Pt denies hematemesis. Review of Systems See HPI for pertinent positives & negatives. A total of 10 systems reviewed and were otherwise negative. 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 (23) Syncope and collapse Surgical Problems: (1) H/O esophagogastroduodenoscopy (2) H/O knee surgery (3) S/P cervical spinal fusion (4) S/P IVC filter (5) S/P lumbar fusion (6) S/P T&A (status post tonsillectomy and adenoidectomy) (7) S/P TIPS (transjugular intrahepatic portosystemic shunt) Family History FH: CAD (coronary artery disease) FATHER FH: breast cancer MOTHER Social History Smoking Status: Never Smoker Alcohol Use: none Drug Use: none Marital Status: single Housing Status: lives alone Occupation Status: retired Current/Historical Medications Scheduled Clindamycin Hcl (Cleocin), 600 MG PO TID Escitalopram Oxalate (Lexapro), 20 MG PO DAILY Ferrous Sulfate (Kp Ferrous Sulfate), 325 MG PO BID Furosemide (Lasix), 40 MG PO DAILY Insulin Aspart (Novolog), 14 UNITS SQ TIDM Insulin Glargine (Lantus), 38 UNITS SC BID Lactobacillus Acidophilus (Lactinex), 2 TAB PO TID Lactulose (Chronulac), 20 ML PO QID Levetiractam (Levetiracetam), 500 MG PO BID Levothyroxine Sodium (Synthroid), 75 MCG PO QAM Magnesium Oxide (Mag-Ox), 400 MG PO BID Melatonin (Kp Melatonin), 2 MG PO HS Pantoprazole (Protonix), 40 MG PO BID Polyethylene Glycol 3350 (Miralax), 17 GM PO BID Pyridoxine Hcl (Vitamin B-6), 25 MG PO HS Rifaximin (Xifaxan), 550 MG PO BID Spironolactone (Aldactone), 100 MG PO BID Scheduled PRN Diphenhydramine Hcl (Benadryl), 25 MG PO BID PRN for Itching Hydromorphone Hcl (Dilaudid), 4 MG PO Q6 PRN for Pain Ondasetron Odt (Zofran Odt), 1-2 MG SL Q8 PRN for Nausea or Vomiting Triamcinolone Acet (Aristocort 0.1%), 1 APPL EXT BID PRN for dermatitis Allergies Coded Allergies: Acetaminophen (Verified Allergy, Severe, ESLD (BETANCOURT). on Liver transplant list. Cannot have APAP., 11/19/16) Morphine (Verified Allergy, Severe, RED HIVE WENT UP ARM FROM IV SITE, ) NSAIDs (Verified Allergy, Severe, DUE TO LIVER DISEAS, 11/19/16) Penicillins (Verified Allergy, Severe, JOINT SWELLING AND FEVER, 11/19/16) Fentanyl (Verified Allergy, Intermediate, rash, 11/19/16) Levofloxacin (Verified Allergy, Intermediate, RASH, 11/19/16) pt developed erythema at site of IV injection with itching Vancomycin (Verified Allergy, Mild, HIVES, 11/19/16) HIVES Tramadol (Verified Allergy, Unknown, NOT TO TAKE WITH KEPPRA DUE TO SEIZURE RISK, 11/19/16) Physical Exam Vital Signs Date Time Temp Pulse Resp B/P (MAP) Pulse Ox O2 Delivery O2 Flow Rate FiO2 11/19/16 19:49 86 20 119/72 94 Room Air 11/19/16 18:51 81 12 107/70 96 Room Air 11/19/16 16:30 81 11/19/16 16:10 86 24 119/68 100 Room Air 11/19/16 14:28 36.8 78 19 117/65 98 Room Air Physical Exam GENERAL: Patient is awake, alert, very tearful, and anxious appearing. EYES: The conjunctivae are clear. The pupils are round and reactive. EARS, NOSE, MOUTH AND THROAT: The nose is without any evidence of any deformity. Mucous membranes are dry tongue is midline NECK: The neck is nontender and supple. RESPIRATORY: Normal respiratory effort is noted there is no evidence of wheezing rhonchi or rales CARDIOVASCULAR: Regular rate and rhythm noted there no murmurs rubs or gallops normal S1 normal S2 GASTROINTESTINAL: The abdomen is mildly distended, but soft. Diffuse tenderness to palpation. No guarding or rigidity. MUSCULOSKELETAL/EXTREMITIES: There is no evidence of gross deformity full range of motion is noted in the hips and shoulders SKIN: There is no obvious evidence of any rash. There are no petechiae, pallor or cyanosis noted. Pedal edema bilaterally with edema in the RUE. NEUROLOGIC: Patient is awake alert and oriented x3 Medical Decision & Procedures ER Provider Diagnostic Interpretation: X-ray results as stated below per interpretation by me and the radiologist. Radiology results as stated below per my review and radiologist interpretation: CHEST ONE VIEW PORTABLE CLINICAL HISTORY: Abdominal pain. COMPARISON STUDY: Chest radiograph November 16, 2016. FINDINGS: Upper abdominal coils are noted. No pneumothorax or pleural effusion is present. Mild left lower lung opacity favors atelectasis. There is no evidence of pulmonary edema. No consolidation is identified to suggest pneumonia. Cardiomediastinal silhouette is stable. IMPRESSION: No acute cardiopulmonary findings. Electronically signed by: Luisito Obregon M.D. 11/19/2016 2:59 PM Dictated Date/Time: 11/19/2016 2:58 PM RIGHT UPPER EXTREMITY VENOUS DOPPLER ULTRASOUND CLINICAL HISTORY: Right upper extremity pain. COMPARISON STUDY: Right upper extremity venous Doppler August 04 2016. FINDINGS: The right internal jugular, subclavian, axillary, brachial, basilic, radial and ulnar veins are patent. There is no venous thrombus within the right upper extremity. IMPRESSION: No deep venous thrombus within the right upper extremity. Electronically signed by: Luisito Obregon M.D. 11/19/2016 6:16 PM Dictated Date/Time: 11/19/2016 6:15 PM Laboratory Results 11/19/16 15:20 Red Blood Count 3.45, Mean Corpuscular Volume 87.2, Mean Corpuscular Hemoglobin 30.4, Mean Corpuscular Hemoglobin Concent 34.9, Mean Platelet Volume 11.5, Neutrophils (%) (Auto) 76.5, Lymphocytes (%) (Auto) 12.2, Monocytes (%) (Auto) 8.4, Eosinophils (%) (Auto) 2.1, Basophils (%) (Auto) 0.4, Neutrophils # (Auto) 4.08, Lymphocytes # (Auto) 0.65, Monocytes # (Auto) 0.45, Eosinophils # (Auto) 0.11, Basophils # (Auto) 0.02 11/19/16 15:20 Test 11/19/16 15:20 11/19/16 15:50 11/19/16 16:20 White Blood Count 5.33 K/uL (4.8-10.8) Red Blood Count 3.45 M/uL (4.7-6.1) Hemoglobin 10.5 g/dL (14.0-18.0) Hematocrit 30.1 % (42-52) Mean Corpuscular Volume 87.2 fL (80-100) Mean Corpuscular Hemoglobin 30.4 pg (25-34) Mean Corpuscular Hemoglobin Concent 34.9 g/dl (32-36) Platelet Count 65 K/uL (130-400) Mean Platelet Volume 11.5 fL (7.4-10.4) Neutrophils (%) (Auto) 76.5 % Lymphocytes (%) (Auto) 12.2 % Monocytes (%) (Auto) 8.4 % Eosinophils (%) (Auto) 2.1 % Basophils (%) (Auto) 0.4 % Neutrophils # (Auto) 4.08 K/uL (1.4-6.5) Lymphocytes # (Auto) 0.65 K/uL (1.2-3.4) Monocytes # (Auto) 0.45 K/uL (0.11-0.59) Eosinophils # (Auto) 0.11 K/uL (0-0.5) Basophils # (Auto) 0.02 K/uL (0-0.2) RDW Standard Deviation 65.6 fL (36.4-46.3) RDW Coefficient of Variation 20.6 % (11.5-14.5) Immature Granulocyte % (Auto) 0.4 % Immature Granulocyte # (Auto) 0.02 K/uL (0.00-0.02) Large Platelets 1+ Anisocytosis PRESENT Echinocytes 1+ Schistocytes 1+ Anion Gap 11.0 mmol/L (3-11) Est Creatinine Clear Calc Drug Dose 106.4 ml/min Estimated GFR () 111.5 Estimated GFR (Non- 96.2 BUN/Creatinine Ratio 9.5 (10-20) Calcium Level 7.8 mg/dl (8.5-10.1) Total Bilirubin 5.6 mg/dl (0.2-1) Direct Bilirubin 2.7 mg/dl (0-0.2) Aspartate Amino Transf (AST/SGOT) 87 U/L (15-37) Alanine Aminotransferase (ALT/SGPT) 38 U/L (12-78) Alkaline Phosphatase 202 U/L (45-117) Total Protein 5.1 gm/dl (6.4-8.2) Albumin 2.3 gm/dl (3.4-5.0) Lipase 110 U/L (73-393) Prothrombin Time 18.0 SECONDS (9.0-12.0) Prothromb Time International Ratio 1.6 (0.9-1.1) Activated Partial Thromboplast Time 36.6 SECONDS (21.0-31.0) Partial Thromboplastin Ratio 1.4 Urine Color DK YELLOW Urine Appearance CLEAR (CLEAR) Urine pH >= 9.0 (4.5-7.5) Urine Specific West 1.019 (1.000-1.030) Urine Protein NEG (NEG) Urine Glucose (UA) NEG (NEG) Urine Ketones NEG (NEG) Urine Occult Blood NEG (NEG) Urine Nitrite NEG (NEG) Urine Bilirubin 1+ (NEG) Urine Urobilinogen POS (NEG) Urine Leukocyte Esterase TRACE (NEG) Urine WBC (Auto) 0 /hpf (0-5) Urine RBC (Auto) 0-4 /hpf (0-4) Urine Hyaline Casts (Auto) 0 /lpf (0-5) Urine Epithelial Cells (Auto) 0-5 /lpf (0-5) Urine Bacteria (Auto) NEG (NEG) Laboratory results per my review. Medications Administered Medications (Trade) Dose Ordered Sig/Ryan Route Start Time Stop Time Status Last Admin Dose Admin Ondansetron HCl (Zofran Inj) 4 mg NOW STAT IV 11/19/16 14:40 11/19/16 14:42 DC 11/19/16 16:12 4 MG Hydromorphone HCl (Dilaudid Inj) 1 mg Q30M PRN IV 11/19/16 14:45 12/03/16 14:44 11/19/16 19:42 1 MG Sodium Chloride 1,000 ml @ 999 mls/hr Q1H1M STAT IV 11/19/16 14:44 11/19/16 15:44 DC 11/19/16 16:13 999 MLS/HR ED Course 1439: The patient was evaluated in room B8. A complete history and physical examination were performed. 1440: Zofran Inj 4 mg IV. 1444: NSS 1000 ml @ 999 mls/hr IV. 1445: Dilaudid Inj 1 mg IV. 1900: The patient has been accepted to [facility]. I reevaluated the patient. I discussed the results with him. He verbalized agreement of the treatment plan. He will be transferred to [facility] for further management. Medical Decision Prior records/ancillary studies reviewed. Triage Nursing notes reviewed. The patient's history was concerning for abdominal pain. Differential diagnosis: Etiologies such as appendicitis, diverticulitis, PUD, biliary pathology, UTI, pancreatitis, obstruction, mesenteric ischemia, aortic pathology, infections, inflammatory bowel disease, renal colic, as well as others were entertained. The patient is a 61-year-old male who has a history of BETANCOURT. The patient presented to the emergency department for ongoing abdominal pain as well as swelling. The patient has a history of similar problems in the past. He was recently discharged from our facility yesterday but does not appear to be doing very well at home. The patient was treated with IV pain medication and IV antiemetics. He was reevaluated multiple times. I discussed his case with the emergency Department insurance case manager. At this time he was felt to be a good candidate for inpatient rehabilitation and I do feel that he would do well in a management setting. I discussed this with the patient and he was agreeable. He was able to be accepted at [facility]. Transfer paperwork was done by myself. Medication Reconcilliation Current Medication List: was personally reviewed by me Blood Pressure Screening Patient's blood pressure: Normal blood pressure Blood pressure disposition: Did not require urgent referral Impression Primary Impression: Chronic abdominal pain Additional Impressions: Ascites BETANCOURT (nonalcoholic steatohepatitis) Scribe Attestation The scribe's documentation has been prepared under my direction and personally reviewed by me in its entirety. I confirm that the note above accurately reflects all work, treatment, procedures, and medical decision making performed by me. Departure Information Dispostion Transfer Acute Care Facility Referrals Chacha Munoz D.O. (PCP) Patient Instructions My [facility] Problem Qualifiers Additional Impressions: Ascites Ascites type: other type Qualified Codes: R18.8 - Other ascites
[2016-11-19 15:31] LABS: HEMATOCRIT 30.1 % (42-52); MEAN CELL VOLUME 87.2 fL (80-100); MEAN CORPUSCULAR HEMOGLOBIN 30.4 pg (25-34); MEAN CORPUSCULAR HGB CONC 34.9 g/dl (32-36); RED BLOOD COUNT 3.45 M/uL (4.7-6.1); WHITE BLOOD COUNT 5.33 K/uL (4.8-10.8)
[2016-11-19 15:43] LABS: MEAN PLATELET VOLUME 11.5 fL (7.4-10.4); PLATELET COUNT 65 K/uL (130-400)
[2016-11-19 15:50] LABS: ANISOCYTOSIS PRESENT; BASO % 0.4 %; BASO ABS # 0.02 K/uL (0-0.2); COMPLETE YES; ECHINOCYTES 1+; EOS % 2.1 %; IG% 0.4 %; LARGE PLATELETS 1+; LYMPH % 12.2 %; LYMPH ABS # 0.65 K/uL (1.2-3.4); MONO % 8.4 %; NEUT % 76.5 %; SCHISTOCYTES 1+
[2016-11-19 16:02] LABS: BUN/CREATININE RATIO 9.5 (10-20); CALCIUM 7.8 mg/dl (8.5-10.1); CREATININE 0.79 mg/dl (0.60-1.40)
[2016-11-19] MEDS: HYDROmorphone INJ 1 MG/ML SYR IV PRN ×2 (16:12→19:42)
[2016-11-19 16:15] LABS: INR 1.6 (0.9-1.1); PARTIAL THROMBOPLASTIN RATIO 1.4
[2016-11-19 16:37] LABS: URINE APPEARANCE CLEAR (CLEAR); URINE COLOR DK YELLOW; URINE EPITHELIAL CELL AUTO 0-5 /lpf (0-5); URINE NITRITE NEG (NEG); URINE PH >= 9.0 (4.5-7.5); URINE SPECIFIC GRAVITY 1.019 (1.000-1.030); UROBILINOGEN POS (NEG)
[2016-11-19 16:39] LABS: MANUAL MICROSCOPIC REQUIRED? NO; REVIEW REQ? NO; URINE BILIRUBIN 1+ (NEG)
[2016-11-19 16:40] LABS: POTASSIUM 4.4 mmol/L (3.5-5.1)
[2016-11-19 16:41] LABS: SULFASALICYLIC ACID NEG (NEG)
--- NOTE | 2016-11-19 18:18 | DIAGNOSTIC IMAGING REPORT ---
RIGHT UPPER EXTREMITY VENOUS DOPPLER ULTRASOUND CLINICAL HISTORY: Right upper extremity pain. COMPARISON STUDY: Right upper extremity venous Doppler August 04 2016. FINDINGS: The right internal jugular, subclavian, axillary, brachial, basilic, radial and ulnar veins are patent. There is no venous thrombus within the right upper extremity. IMPRESSION: No deep venous thrombus within the right upper extremity. Electronically signed by: Luisito Obregon M.D. 11/19/2016 6:16 PM Dictated Date/Time: 11/19/2016 6:15 PM
[2016-11-19 19:49] VITALS: BP 119/72; PULSE 86; O2SAT 94
== END 2016-11-19 19:35 | disposition short-term general hospital (02) ==
LOC: EDBD 14:24 → C.EDB 14:27
DX: G89.29 Other chronic pain (principal); R10.9 Unspecified abdominal pain; K75.81 Nonalcoholic steatohepatitis (NASH); R18.8 Other ascites; E11.9 Type 2 diabetes mellitus without complications; E78.5 Hyperlipidemia, unspecified; E03.9 Hypothyroidism, unspecified; G40.909 Epilepsy, unspecified, not intractable, without status epilepticus; F41.9 Anxiety disorder, unspecified; K74.60 Unspecified cirrhosis of liver; F32.9 Major depressive disorder, single episode, unspecified; Z86.711 Personal history of pulmonary embolism; Z98.1 Arthrodesis status; Z98.890 Other specified postprocedural states; Z79.4 Long term (current) use of insulin; Z79.899 Other long term (current) drug therapy; Z88.0 Allergy status to penicillin; Z88.5 Allergy status to narcotic agent; Z88.8 Allergy status to other drugs, medicaments and biological substances

== ENCOUNTER 2016-12-01 08:21 | Day surgery (SDC) | payer OTHER ==
[2016-11-23 07:54] VITALS: BMI 23.0
--- NOTE | 2016-11-23 12:33 | PAT Medication Instructions ---
Service Date Nov 23, 2016. Current Home Medication List Bisacodyl (Bisac-Evac), 10 MG PA DAILY PRN for Constipation Diphenhydramine Hcl (Benadryl), 25 MG PO BID PRN for Itching Docusate Sodium (Docusate Sodium), 1 CAP PO BID PRN for Constipation Escitalopram Oxalate (Lexapro), 20 MG PO DAILY Ferrous Sulfate (Kp Ferrous Sulfate), 325 MG PO BID Furosemide (Lasix), 40 MG PO DAILY Glucagon (Glucagon Emergency Kit), 1 MG SC UD PRN for HYPOGLYCEMIA PROTOCOL Glucose (Glucose), 15 GM PO UD PRN for HYPOGLYCEMIA PROTOCOL Hydromorphone Hcl (Dilaudid), 4 MG PO Q6 PRN for Pain Insulin Aspart (Novolog), 14 UNITS SQ TIDM Insulin Glargine (Lantus), 38 UNITS SC BID Lactobacillus Acidophilus (Lactinex), 1 TAB PO BID Lactulose (Chronulac), 30 ML PO QID Levetiractam (Levetiracetam), 500 MG PO BID Levothyroxine Sodium (Synthroid), 75 MCG PO QAM Magnesium Hydroxide (Milk Of Magnesia), 30 ML PO DAILY PRN for Constipation Magnesium Oxide (Mag-Ox), 400 MG PO DAILY Pantoprazole (Protonix), 40 MG PO BID Polyethylene Glycol 3350 (Miralax), 17 GM PO BID Rifaximin (Xifaxan), 550 MG PO BID Senna/Docusate Sod (Senokot S), 1 TAB PO LUNCH Sodium Phosphate/Biphosphate (Fleet Enema), 1 EA PA DAILY PRN for CONSTIPATION Spironolactone (Aldactone), 100 MG PO BID Medication Instructions For Your Scheduled Surgery Glucagon (Glucagon Emergency Kit), 1 MG SC UD (continue as directed per protocol ) Glucose (Glucose), 15 GM PO UD (continue as directed per protocol) - Hold the following medications the morning of surgery: Bisacodyl (Bisac-Evac), 10 MG PA DAILY PRN for Constipation Diphenhydramine Hcl (Benadryl), 25 MG PO BID PRN for Itching Docusate Sodium (Docusate Sodium), 1 CAP PO BID PRN for Constipation Ferrous Sulfate (Kp Ferrous Sulfate), 325 MG PO BID Furosemide (Lasix), 40 MG PO DAILY Insulin Aspart (Novolog), 14 UNITS SQ TIDM Lactobacillus Acidophilus (Lactinex), 1 TAB PO BID Magnesium Hydroxide (Milk Of Magnesia), 30 ML PO DAILY PRN for Constipation Magnesium Oxide (Mag-Ox), 400 MG PO DAILY Polyethylene Glycol 3350 (Miralax), 17 GM PO BID Senna/Docusate Sod (Senokot S), 1 TAB PO LUNCH Sodium Phosphate/Biphosphate (Fleet Enema), 1 EA PA DAILY PRN for CONSTIPATION Spironolactone (Aldactone), 100 MG PO BID - Take the following medications the morning of surgery with a sip of water: Rifaximin (Xifaxan), 550 MG PO BID Lactulose (Chronulac), 30 ML PO QID Levetiractam (Levetiracetam), 500 MG PO BID Levothyroxine Sodium (Synthroid), 75 MCG PO QAM Pantoprazole (Protonix), 40 MG PO BID Hydromorphone Hcl (Dilaudid), 4 MG PO Q6 PRN for Pain (okay to take up to 4 hours prior to surgery if needed) Escitalopram Oxalate (Lexapro), 20 MG PO DAILY - For Insulin Dependent Diabetic patients: Test blood sugar A.M. of surgery. - If Blood glucose greater than 150, take half of your regular dose of: Insulin Glargine (Lantus), take 19 units - If blood sugar less than 150, do not take any: Insulin Glargine (Lantus) If you have any questions please call us at [phone] or [phone] or [phone]
[~2016-12-01] VITALS: Ht 182.9 cm; Wt 79.0 kg
[~2016-12-01 08:21] MED LIST changes: +BISA10SU7 PR; -CLIN300C2 PO; +DOCU100C31 PO; +GLGKIT SC; +LACTATED RINGER'S 1000ML 1,000 ML IV SCH; -MELA1TAB5 PO; +MOML PO; -ONDA4TAB10 SL; -PYRI25TA PO; +SENN-65 PO; +SODIENE PR; -TRMCR130WC EXT; +[UNRECOGNIZED DRUG - CODE] PO
[2016-12-01 08:46] VITALS: BP 123/66; PULSE 80; TEMP 36.6; O2SAT 100; Ht 182.9 cm; Wt 79.0 kg
[2016-12-01] MEDS ORDERED: CEFTRIAXONE SOD INJ 1 GM in DEXTROSE 5% ADD-VANTAGE 50ML 50 ML IV STA (09:02)
--- NOTE | 2016-12-01 09:07 | Endo History and Physical ---
History & Physical Date of Service: Dec 01, 2016. Chief Complaint: History of recurrent abdominal pain Referring Physician: Dr. Mo History of Present Illness 61-year-old male with history of cirrhosis presenting for evaluation of abdominal discomfort. The patient has had several imaging studies over the past 6 months which are suspicious for a stone within the distal common bile duct. He presents today for upper endoscopy EUS and possible ERCP for further evaluation. The patient's history is notable for cirrhosis related to fatty infiltration of the liver with complications to include refractory ascites, hepatic encephalopathy, esophageal varices, and thrombocytopenia. Past Medical History Diabetes, Arthritis, Fractures, Thrombophlebitis, Liver Disease Past Surgical History Hx Cardiac Surgery: No Hx Internal Defibrillator: No Hx Pacemaker: No Hx Abdominal Surgery: Yes (mutiple paracentesis) Hx Post-Op Nausea and Vomiting: No Hx Cancer Surgery: No Hx Thoracic Surgery: No Hx Orthopedic: Yes (cervical fusions-2004; lumbar fusions-; R knee arthroscpy-2002) Hx Urinary Tract Surgery: No Social History Smoking Status: Never Smoker Hx Substance Use: No Hx Alcohol Use: No Allergies Coded Allergies: Acetaminophen (Verified Allergy, Severe, ESLD (BETANCOURT). on Liver transplant list. Cannot have APAP., 12/01/16) Morphine (Verified Allergy, Severe, RED HIVE WENT UP ARM FROM IV SITE, ) NSAIDs (Verified Allergy, Severe, DUE TO LIVER DISEAS, 12/01/16) Penicillins (Verified Allergy, Severe, JOINT SWELLING AND FEVER, 12/01/16) Fentanyl (Verified Allergy, Intermediate, rash, 12/01/16) Levofloxacin (Verified Allergy, Intermediate, RASH, 12/01/16) pt developed erythema at site of IV injection with itching Vancomycin (Verified Allergy, Mild, HIVES, 12/01/16) HIVES Tramadol (Verified Allergy, Unknown, NOT TO TAKE WITH KEPPRA DUE TO SEIZURE RISK, 12/01/16) Current Medications Reported Home Medications Medications Dose Route/Sig Max Daily Dose Days Date Category Dose Instructions Glucose 1 Liq Liq 15 Gm PO UD PRN 11/23/16 Reported per hypoglycemic protocol Glucagon Emergency Kit (Glucagon) 1 Mg Kit 1 Mg SC UD PRN 11/23/16 Reported Docusate Sodium 100 Mg Cap 1 Cap PO BID PRN 11/23/16 Reported Milk Of Magnesia (Magnesium Hydroxide) 30 Ml Susp 30 Ml PO DAILY PRN 11/23/16 Reported Bisac-Evac (Bisacodyl) 10 Mg Sup 10 Mg UT DAILY PRN 11/23/16 Reported Fleet Enema (Sodium Phosphate/Biphosphate) Aylin 1 Ea UT DAILY PRN 11/23/16 Reported Senokot S (Senna/Docusate Sodium) 1 Tab Tab 1 Tab PO LUNCH 11/23/16 Reported Xifaxan (Rifaximin) 550 Mg Tab 550 Mg PO BID 11/11/16 Reported Lactinex (Lactobacillus Acidophilus) Tab 1 Tab PO BID 11/11/16 Reported Lexapro (Escitalopram Oxalate) 20 Mg Tab 20 Mg PO DAILY 10/01/16 Reported Benadryl (Diphenhydramine Hcl) 25 Mg Cap 25 Mg PO BID PRN 09/18/16 Reported Miralax (Polyethylene Glycol 3350) 1 Pow Pow 17 Gm PO BID 08/29/16 Reported Lantus (Insulin Glargine) 100 Unit/Ml Inj 38 Units SC BID 08/29/16 Reported Lasix (Furosemide) 40 Mg Tab 40 Mg PO DAILY 08/17/16 Reported Dilaudid (Hydromorphone Hcl) 4 Mg Tab 4 Mg PO Q6 PRN 07/01/16 Reported Novolog (Insulin Aspart) 100 Units/Ml Inj 14 Units SQ TIDM 05/15/16 Reported PLUS SLIDING SCALE Kp Ferrous Sulfate (Ferrous Sulfate) 325 Mg Tab 325 Mg PO BID 04/27/16 Reported Chronulac (Lactulose) 10 Gm/15 Ml Syrp 30 Ml PO QID 03/27/16 Reported Levetiracetam (Levetiractam) 500 Mg Tab 500 Mg PO BID 03/13/16 Reported Aldactone (Spironolactone) 100 Mg Tab 100 Mg PO BID 12/10/15 Reported Synthroid (Levothyroxine Sodium) 75 Mcg Tab 75 Mcg PO QAM 05/07/15 Reported Protonix (Pantoprazole) 40 Mg Tab 40 Mg PO BID 08/04/14 Reported Mag-Ox (Magnesium Oxide) 400 Mg Tab 400 Mg PO DAILY 09/29/11 Reported Vital Signs Weight (Kilograms): 79.02 Height (Feet): 6 Height (Inches): 0 Date Time Temp Pulse Resp B/P (MAP) Pulse Ox O2 Delivery O2 Flow Rate FiO2 12/01/16 08:46 36.6 80 20 123/66 (85) 100 Room Air Physical Exam General Appearance: no apparent distress Respiratory/Chest: Auscultation: deminished air movement Cardiovascular: Heart Auscultation: II/ XIN Abdomen: Inspection & Palpation: soft Assessment and Plan Patient for upper endoscopy EUS and possible ERCP today. We've discussed the risks and benefits to include bleeding, infection, perforation and the potential for pancreatitis. Given his underlying cirrhosis and thrombocytopenia the patient is at rate of than average risk for post- sphincterotomy bleeding.
[2016-12-01] MEDS ORDERED: INDOMETHACIN 50 MG SUPP PR ONE ×2 (09:15→11:31)
[2016-12-01] MEDS ORDERED: MIDAZOLAM HCL 1 MG/ML 2ML VIAL ONE (10:25)
[2016-12-01] MEDS ORDERED: PROPOFOL IV EMULSION 10 MG/ML 20 ML VIAL IV ONE (10:26)
[2016-12-01] MEDS ORDERED: LIDOCAINE HCL 2% 2 ML VIAL (20MG/ML) ONE (10:26)
[2016-12-01] MEDS ORDERED: KETAMINE HCL INJ 50 MG/ML 10 ML VIAL ONE (10:26)
[2016-12-01] MEDS ORDERED: ONDANSETRON INJ 2 MG/ML 2 ML VIAL ONE (10:34)
[2016-12-01] MEDS ORDERED: HYDROmorphone INJ 2 MG/ML SYR/VIAL IV PRN (11:45)
[2016-12-01] MEDS ORDERED: ONDANSETRON INJ 2 MG/ML 2 ML VIAL IV PRN ×2 (11:45→12:00)
[2016-12-01] MEDS ORDERED: ATROPINE SULFATE 0.1 MG/ML 5ML SYR IV PRN (11:45)
--- NOTE | 2016-12-01 11:52 | GI REPORT ---
Procedure Date: 12/01/2016 11:25 AM Procedure: Upper GI endoscopy Indications: Portal hypertension rule out esophageal varices Medicines: Monitored Anesthesia Care Complications: No immediate complications. Estimated blood loss: Minimal. Estimated Blood Loss: Estimated blood loss: none. Procedure: Pre-Anesthesia Assessment: - Prior to the procedure, a History and Physical was performed, and patient medications, allergies and sensitivities were reviewed. The patient's tolerance of previous anesthesia was reviewed. - The risks and benefits of the procedure and the sedation options and risks were discussed with the patient. All questions were answered and informed consent was obtained. - Patient identification and proposed procedure were verified prior to the procedure by the physician, the nurse and the senior sales associate. The procedure was verified in the procedure room. - Pre-procedure physical examination revealed no contraindications to sedation. - ASA Grade Assessment: III - A patient with severe systemic disease. - After reviewing the risks and benefits, the patient was deemed in satisfactory condition to undergo the procedure. - The anesthesia plan was to use monitored anesthesia care (MAC). - The heart rate, respiratory rate, oxygen saturations, blood pressure, adequacy of pulmonary ventilation, and response to care were monitored throughout the procedure. - The physical status of the patient was re-assessed after the procedure. After obtaining informed consent, the endoscope was passed under direct vision. Throughout the procedure, the patient's blood pressure, pulse, and oxygen saturations were monitored continuously. The scope was introduced through the mouth, with the intention of advancing to the stomach. The scope was advanced to the gastric body before the procedure was aborted. Medications were given. The upper GI endoscopy was accomplished with ease. The patient tolerated the procedure well. Findings: The examined esophagus was normal. A large amount of food (residue) was found in the gastric body. Impression: - Normal esophagus. - A large amount of food (residue) in the stomach. - No specimens collected. Recommendation: - Discharge patient to home (ambulatory). - Advance diet as tolerated today. - Repeat the upper endoscopy at appointment to be scheduled because the bowel preparation was poor. - Liquid diet for 24 hours prior to next attempt. Santino Culver D.O. Santino Culver, 12/01/2016 11:51:45 AM This report has been signed electronically. Note Initiated On: 12/01/2016 11:25 AM I attest to the content of the Intraoperative Record and orders documented therein, exceptions below
--- NOTE | 2016-12-01 11:54 | [facility] Post Operative Brief Note ---
Immediate Operative Summary Operative Date Dec 01, 2016. Pre-Operative Diagnosis suspected gallstone Post-Operative Diagnosis Retained contents in stomach (procedure aborted) Procedure(s) Performed Upper endsocopy Surgeon Dr. Culver [employer] Job Titles Surgeon(s) none Estimated Blood Loss None Findings Retained contents in stomach (procedure aborted) Specimens None Anesthesia MAC Complication(s) None Disposition Recovery Room / PACU
--- NOTE | 2016-12-01 11:55 | Discharge Instructions ---
Endoscopy Patient Instructions Date / Procedure(s) Performed Dec 01, 2016. EGD Allergy Information Coded Allergies: Acetaminophen (Verified Allergy, Severe, ESLD (BETANCOURT). on Liver transplant list. Cannot have APAP., 12/01/16) Morphine (Verified Allergy, Severe, RED HIVE WENT UP ARM FROM IV SITE, ) NSAIDs (Verified Allergy, Severe, DUE TO LIVER DISEAS, 12/01/16) Penicillins (Verified Allergy, Severe, JOINT SWELLING AND FEVER, 12/01/16) Fentanyl (Verified Allergy, Intermediate, rash, 12/01/16) Levofloxacin (Verified Allergy, Intermediate, RASH, 12/01/16) pt developed erythema at site of IV injection with itching Vancomycin (Verified Allergy, Mild, HIVES, 12/01/16) HIVES Tramadol (Verified Allergy, Unknown, NOT TO TAKE WITH KEPPRA DUE TO SEIZURE RISK, 12/01/16) Discharge Date / Findings Dec 01, 2016. Retained contents in stomach (procedure aborted) Medication Instructions Reported Home Medications Medications Dose Route/Sig Max Daily Dose Days Date Category Dose Instructions Glucose 1 Liq Liq 15 Gm PO UD PRN 11/23/16 Reported per hypoglycemic protocol Glucagon Emergency Kit (Glucagon) 1 Mg Kit 1 Mg SC UD PRN 11/23/16 Reported Docusate Sodium 100 Mg Cap 1 Cap PO BID PRN 11/23/16 Reported Milk Of Magnesia (Magnesium Hydroxide) 30 Ml Susp 30 Ml PO DAILY PRN 11/23/16 Reported Bisac-Evac (Bisacodyl) 10 Mg Sup 10 Mg CA DAILY PRN 11/23/16 Reported Fleet Enema (Sodium Phosphate/Biphosphate) Aylin 1 Ea CA DAILY PRN 11/23/16 Reported Senokot S (Senna/Docusate Sodium) 1 Tab Tab 1 Tab PO LUNCH 11/23/16 Reported Xifaxan (Rifaximin) 550 Mg Tab 550 Mg PO BID 11/11/16 Reported Lactinex (Lactobacillus Acidophilus) Tab 1 Tab PO BID 11/11/16 Reported Lexapro (Escitalopram Oxalate) 20 Mg Tab 20 Mg PO DAILY 10/01/16 Reported Benadryl (Diphenhydramine Hcl) 25 Mg Cap 25 Mg PO BID PRN 09/18/16 Reported Miralax (Polyethylene Glycol 3350) 1 Pow Pow 17 Gm PO BID 08/29/16 Reported Lantus (Insulin Glargine) 100 Unit/Ml Inj 38 Units SC BID 08/29/16 Reported Lasix (Furosemide) 40 Mg Tab 40 Mg PO DAILY 08/17/16 Reported Dilaudid (Hydromorphone Hcl) 4 Mg Tab 4 Mg PO Q6 PRN 07/01/16 Reported Novolog (Insulin Aspart) 100 Units/Ml Inj 14 Units SQ TIDM 05/15/16 Reported PLUS SLIDING SCALE Kp Ferrous Sulfate (Ferrous Sulfate) 325 Mg Tab 325 Mg PO BID 04/27/16 Reported Chronulac (Lactulose) 10 Gm/15 Ml Syrp 30 Ml PO QID 03/27/16 Reported Levetiracetam (Levetiractam) 500 Mg Tab 500 Mg PO BID 03/13/16 Reported Aldactone (Spironolactone) 100 Mg Tab 100 Mg PO BID 12/10/15 Reported Synthroid (Levothyroxine Sodium) 75 Mcg Tab 75 Mcg PO QAM 05/07/15 Reported Protonix (Pantoprazole) 40 Mg Tab 40 Mg PO BID 08/04/14 Reported Mag-Ox (Magnesium Oxide) 400 Mg Tab 400 Mg PO DAILY 09/29/11 Reported Provider Instructions Activity Restrictions - No exercising or heavy lifting for 24 hours. - Do not drink alcohol the day of the procedure. - Do not drive a car or operate machinery until the day after the procedure. - Do not make any important decisions or sign important papers in 24 hours after the procedure. Following Day: - Return to full activity which may include returning to work/school. Diet Start your diet with liquids and light foods (jello, soup, juice, toast). Then eat your usual diet if not nauseated. Treatment For Common After Affects For mild abdominal pain, bloating, or excessive gas: - Rest - Eat lightly - Lie on right side Follow-Up Information Repeat study to be scheduled Liquid diet for 48 hours prior to the next attempt. Anesthesia Information What You Should Know You have had a procedure that required some medicine to reduce anxiety and discomfort. This treatment is called moderate sedation. After receiving the treatment, you may be sleepy, but you will be able to breathe on your own. The effects of the treatment may last for several hours. Follow these instructions along with Activity/Diet recommendations noted above: * Do NOT do anything where dizziness or clumsiness would be dangerous. * Rest quietly at home today, then you can be up and about tomorrow. * Have a responsible person stay with you the rest of today. * You may have had an I.V. today. If so, you may take the dressing off later today. Recommendations Call your doctor if: * Trouble breathing * Continuous vomiting for more than 24 hours * Temperature above 101 degrees * Severe abdominal pain or bloating * Pain not relieved by pain medicine ordered * There is increased drainage or redness from any incision * A large amount of rectal bleeding greater than 2-3 tablespoons. (If you had a polyp/s removed or have hemorrhoids, a small amount of blood - from the rectum is to be expected.) * You have any unanswered questions or concerns. IN THE EVENT OF A SERIOUS EMERGENCY, GO TO THE NEAREST EMERGENCY ROOM Your discharge instructions were prepared by provider Santino Culver. Patient Instructions Signature Page Jeremi Broderick Patient (or Guardian) Signature/Date: I have read and understand the instructions given to me by my caregivers. Caregiver/RN/Doctor Signature/Date: The above-named patient and/or guardian has received patient instructions on this date. + Original Patient Signature Page (only) stays with chart. Please make copy for patient.
[2016-12-01 12:55] VITALS: BP 140/73; PULSE 80; TEMP 36.6; O2SAT 100
[2016-12-01 13:25] VITALS: BP 117/70; PULSE 84; O2SAT 99
--- NOTE | 2016-12-01 13:57 | Anesthesiology Progress Note ---
Anesthesia Post Op Note Date & Time Dec 01, 2016 at 13:57 Vital Signs Pain Intensity: 0 Vital Signs Past 12 Hours Date Time Temp Pulse Resp B/P (MAP) Pulse Ox O2 Delivery O2 Flow Rate FiO2 12/01/16 13:25 84 18 117/70 99 Room Air 12/01/16 12:55 36.6 80 20 140/73 100 Room Air 12/01/16 12:25 80 16 12/01/16 12:25 79 16 100 12/01/16 12:21 12/01/16 12:21 11912/01/16 12:20 79 19 100 12/01/16 12:20 79 19 100 12/01/16 12:20 80 19 12/01/16 12:20 80 19 12/01/16 12:16 /12/01/16 12:16 112/12/01/16 12:15 81 15 12/01/16 12:15 80 15 100 12/01/16 12:15 80 15 100 12/01/16 12:15 81 15 12/01/16 12:11 12/01/16 12:11 11112/01/16 12:10 81 15 12/01/16 12:10 81 15 100 12/01/16 12:10 81 15 12/01/16 12:10 81 15 100 12/01/16 12:06 116/69 12/01/16 12:06 116/69 12/01/16 12:05 36.0 82 14 116/69 100 Oxymask 10 12/01/16 08:46 36.6 80 20 123/66 (85) 100 Room Air Notes Mental Status: alert / awake / arousable, participated in evaluation Pt Amnestic to Procedure: Yes Nausea / Vomiting: adequately controlled Pain: adequately controlled Airway Patency, RR, SpO2: stable & adequate BP & HR: stable & adequate Hydration State: stable & adequate Anesthetic Complications: no major complications apparent
== END 2016-12-01 13:56 | disposition home or self-care (01) ==
LOC: C.ACU 08:21
PROVIDERS: ATTEND Internal Medicine Gastroenterology
DX: K76.6 Portal hypertension (principal); R10.9 Unspecified abdominal pain; Z53.8 Procedure and treatment not carried out for other reasons; D69.6 Thrombocytopenia, unspecified; E11.22 Type 2 diabetes mellitus with diabetic chronic kidney disease; N18.9 Chronic kidney disease, unspecified; F41.9 Anxiety disorder, unspecified; F32.9 Major depressive disorder, single episode, unspecified; Z98.890 Other specified postprocedural states; Z86.718 Personal history of other venous thrombosis and embolism; Z68.23 Body mass index [BMI] 23.0-23.9, adult; Z79.4 Long term (current) use of insulin; Z79.899 Other long term (current) drug therapy; Z88.0 Allergy status to penicillin; Z88.1 Allergy status to other antibiotic agents; Z88.5 Allergy status to narcotic agent

== ENCOUNTER 2016-12-02 03:35 | Emergency (ER) | payer OTHER ==
[~2016-12-02] VITALS: Ht 182.9 cm; Wt 81.1 kg
[~2016-12-02 03:35] MED LIST changes: -BND25 PO; +DIPH25CA5 PO; -LACTATED RINGER'S 1000ML 1,000 ML IV SCH
[2016-12-02 03:44] VITALS: BP 147/72; TEMP 36.8; O2SAT 100; Ht 182.9 cm; Wt 81.1 kg
[2016-12-02 03:51] VITALS: PULSE 83; O2SAT 100
--- NOTE | 2016-12-02 04:46 | EMERGENCY ROOM VISIT NOTE ---
History Report prepared by Alla: Tracey Flynn Under the Supervision of: Dr. Quinten Lira M.D. First contact with patient: 03:30 Chief Complaint: CHEST PAIN Stated Complaint: CHEST DISCOMFORT History of Present Illness The patient is a 61 year old male who presents to the Emergency Room with complaints of worsening chest pain starting yesterday. He states that the pain started when he left [facility] yesterday. He states that the pain is everywhere and he is experiencing shortness of breath. He complains of abdominal pain, diarrhea, and shaking. The patient notes that he is out of his Dilaudid and his symptoms have worsened since he ran out of them. Source of History: patient Onset: yesterday Position: chest Timing: worsening Associated Symptoms: + SOB, + abdominal pain, + diarrhea Note: The patient complains of shaking. Review of Systems See HPI for pertinent positives & negatives. A total of 10 systems reviewed and were otherwise negative. 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 (23) Syncope and collapse Surgical Problems: (1) H/O esophagogastroduodenoscopy (2) H/O knee surgery (3) S/P cervical spinal fusion (4) S/P IVC filter (5) S/P lumbar fusion (6) S/P T&A (status post tonsillectomy and adenoidectomy) (7) S/P TIPS (transjugular intrahepatic portosystemic shunt) Family History FH: CAD (coronary artery disease) FATHER FH: breast cancer MOTHER Social History Marital Status: single Housing Status: lives alone Current/Historical Medications Scheduled Escitalopram Oxalate (Lexapro), 20 MG PO DAILY Ferrous Sulfate (Kp Ferrous Sulfate), 325 MG PO BID Furosemide (Lasix), 40 MG PO DAILY Insulin Aspart (Novolog), 14 UNITS SQ TIDM Insulin Glargine (Lantus), 38 UNITS SC BID Lactobacillus Acidophilus (Lactinex), 1 TAB PO BID Lactulose (Chronulac), 30 ML PO QID Levetiractam (Levetiracetam), 500 MG PO BID Levothyroxine Sodium (Synthroid), 75 MCG PO QAM Magnesium Oxide (Mag-Ox), 400 MG PO DAILY Pantoprazole (Protonix), 40 MG PO BID Polyethylene Glycol 3350 (Miralax), 17 GM PO BID Rifaximin (Xifaxan), 550 MG PO BID Senna/Docusate Sod (Senokot S), 1 TAB PO LUNCH Spironolactone (Aldactone), 100 MG PO BID Scheduled PRN Bisacodyl (Bisac-Evac), 10 MG KS DAILY PRN for Constipation Diphenhydramine Hcl (Benadryl), 25 MG PO BID PRN for Itching Docusate Sodium (Docusate Sodium), 1 CAP PO BID PRN for Constipation Glucagon (Glucagon Emergency Kit), 1 MG SC UD PRN for HYPOGLYCEMIA PROTOCOL Glucose (Glucose), 15 GM PO UD PRN for HYPOGLYCEMIA PROTOCOL Hydromorphone Hcl (Dilaudid), 4 MG PO Q6 PRN for Pain Magnesium Hydroxide (Milk Of Magnesia), 30 ML PO DAILY PRN for Constipation Sodium Phosphate/Biphosphate (Fleet Enema), 1 EA KS DAILY PRN for CONSTIPATION Allergies Coded Allergies: Acetaminophen (Verified Allergy, Severe, ESLD (BETANCOURT). on Liver transplant list. Cannot have APAP., 12/01/16) Morphine (Verified Allergy, Severe, RED HIVE WENT UP ARM FROM IV SITE, ) NSAIDs (Verified Allergy, Severe, DUE TO LIVER DISEAS, 12/01/16) Penicillins (Verified Allergy, Severe, JOINT SWELLING AND FEVER, 12/01/16) Fentanyl (Verified Allergy, Intermediate, rash, 12/01/16) Levofloxacin (Verified Allergy, Intermediate, RASH, 12/01/16) pt developed erythema at site of IV injection with itching Vancomycin (Verified Allergy, Mild, HIVES, 12/01/16) HIVES Tramadol (Verified Allergy, Unknown, NOT TO TAKE WITH KEPPRA DUE TO SEIZURE RISK, 12/01/16) Physical Exam Vital Signs Date Time Temp Pulse Resp B/P (MAP) Pulse Ox O2 Delivery O2 Flow Rate FiO2 12/02/16 03:51 83 12/02/16 03:51 100 Room Air 12/02/16 03:44 36.8 90 18 147/72 100 Room Air 12/02/16 03:44 Room Air Physical Exam GENERAL: Patient is chronically unwell appearing and in minimal distress. HEENT: No acute trauma, normocephalic atraumatic, mucous membranes moist, no nasal congestion, no scleral icterus. Jaundice conjunctiva. NECK: No stridor, no adenopathy, no meningismus, trachea is midline. LUNGS: No dyspnea. Clear to auscultation and equal bilaterally. No wheeze, no rhonchi. HEART: Regular rate and rhythm. No murmurs, rubs, gallops appreciated. ABDOMEN: Soft, nontender, bowel sounds positive, no masses appreciated, no peritonitis. BACK: No midline tenderness, no CVA tenderness EXTREMITIES: Normal motion all extremities, no cyanosis, no edema. NEUROLOGIC: Alert and oriented, no acute motor or sensory deficits, no focal weakness, cranial nerves grossly intact. SKIN: No rash, jaundice, no diaphoresis. Medical Decision & Procedures ER Provider Diagnostic Interpretation: Radiology results and stated below per my review and radiologist interpretation: CHEST ONE VIEW PORTABLE CLINICAL HISTORY: Chest Pain pain COMPARISON STUDY: 11/17/2016 FINDINGS: The bones soft tissues and hemidiaphragms are normal. The cardiomediastinal silhouette is normal. The lungs are clear. The pulmonary vasculature is normal. IMPRESSION: Negative chest. The above report was generated using voice recognition software. It may contain grammatical, syntax or spelling errors. Electronically signed by: Marcin Tariq M.D. 12/02/2016 5:55 AM Dictated Date/Time: 12/02/2016 5:55 AM ECG Indication: chest pain Rate (beats per minute): 88 Rhythm: normal sinus Findings: PAC, no acute ischemic change, prolonged QT ED Course 0347: The patient was evaluated in room A3. A complete history and physical exam was performed. 0428: The patient demanded pain medication or he would leave. The patient is signing out AMA. Medical Decision Differential: Cardiac Ischemia (STEMI, NSTEMI, Unstable Angina, etc), Aortic Dissection, Arrhythmia, Pulmonary Embolism, Pneumonia, Pneumothorax, MSK, Infectious, Pericarditis/Myocarditis, Esophageal Rupture, Gastrointestinal, amongst other pathologies entertained. 61 yr old male well known to me and department from frequent visits for variety of complaints. Initially complaining of chest pain though pointed to abdomen before realizing where he was pointing and changed to chest. Story rapidly changing until I asked if he ran out of his meds, which he admits. He admits his symptoms are identical to those he gets when he withdrawals from his narcotics. Admits he called ambulance for pain medications. I do not in any way feel that it is appropriate to treat this patient with narcotics. I did make clear to him I wished to make sure we were not missing medical emergency and thus ordered cxr, ekg, labs. While I was in process of caring for several very ill patient's Mr Broderick decided to leave AMA. He told nursing he wouldn' t stay unless given narcotics. Medication Reconcilliation Current Medication List: was personally reviewed by me Blood Pressure Screening Patient's blood pressure: Elevated blood pressure Impression Primary Impression: Chest pain Additional Impressions: Drug-seeking behavior Left against medical advice Scribe Attestation The scribe's documentation has been prepared under my direction and personally reviewed by me in its entirety. I confirm that the note above accurately reflects all work, treatment, procedures, and medical decision making performed by me. Departure Information Dispostion Home / Self-Care Forms Call Back Authorization, HOME CARE DOCUMENTATION FORM, IMPORTANT VISIT INFORMATION Patient Instructions My [facility] Problem Qualifiers
--- NOTE | 2016-12-02 05:56 | DIAGNOSTIC IMAGING REPORT ---
CHEST ONE VIEW PORTABLE CLINICAL HISTORY: Chest Pain pain COMPARISON STUDY: 11/17/2016 FINDINGS: The bones soft tissues and hemidiaphragms are normal. The cardiomediastinal silhouette is normal. The lungs are clear. The pulmonary vasculature is normal. IMPRESSION: Negative chest. The above report was generated using voice recognition software. It may contain grammatical, syntax or spelling errors. Electronically signed by: Marcin Tariq M.D. 12/02/2016 5:55 AM Dictated Date/Time: 12/02/2016 5:55 AM
== END 2016-12-02 04:56 | disposition left against medical advice (07) ==
LOC: C.EDA 03:35 → EDBD 03:35 → C.EDA 04:56
DX: R07.9 Chest pain, unspecified (principal); Z76.5 Malingerer [conscious simulation]; F41.9 Anxiety disorder, unspecified; K74.60 Unspecified cirrhosis of liver; F32.9 Major depressive disorder, single episode, unspecified; E11.9 Type 2 diabetes mellitus without complications; K72.90 Hepatic failure, unspecified without coma; E78.5 Hyperlipidemia, unspecified; E03.9 Hypothyroidism, unspecified; I10 Essential (primary) hypertension; R56.9 Unspecified convulsions; Z79.4 Long term (current) use of insulin